=== PATIENT | male | born 1960 | race Caucasian/White ===

== ENCOUNTER 2017-08-28 07:35 | Emergency (ER) | payer OTHER ==
[2017-08-28 07:44] VITALS: BP 158/75; PULSE 81; RESP 18; TEMP 97.3
--- NOTE | 2017-08-28 08:21 | ED ---
General Adult HPI - General Chief complaint: Recheck/Abnormal Lab/Rx Stated complaint: MED REFILL, MED WITHDRAWAL Time Seen by Provider: 08/28/17 08:07 Source: patient, RN notes reviewed Mode of arrival: wheelchair Limitations: no limitations - History of Present Illness Initial comments: 56-year-old male presents to the emergency department with a chief complaint of medication refill. The patient takes Lyrica, morphine, narcotics daily. He is prescription ran out and he talked to his doctor but they did not send him to the pharmacy. He states he's having some increased pain and some nausea and difficulty sleeping. He states he is here to hopefully get a few pills to get him through the weekend. He called the doctor on-call and they stated they could not rate these prescriptions form and referred him to the emergency department. Patient has no other complaints. Patient denies any recent fever, chills, shortness of breath, chest pain, back pain, abdominal pain, nausea vomiting, numbness or tingling, dysuria or hematuria, constipation or diarrhea, headaches or visual changes, or any other current symptoms. - Related Data Previous Rx's Medication Instructions Recorded HYDROcodone/APAP 7.5-325MG [[place] 1 tab PO Q4H PRN #10 tab 08/28/17 7.5-325] Pregabalin [Lyrica] 200 mg PO BID #6 cap 08/28/17 Allergies Allergy/AdvReac Type Severity Reaction Status Date / Time phenytoin [From Dilantin] Allergy Unknown Verified 08/28/17 07:39 Review of Systems ROS Statement: Those systems with pertinent positive or pertinent negative responses have been documented in the HPI. ROS Other: All systems not noted in ROS Statement are negative. Past Medical History Past Medical History: COPD, Diabetes Mellitus, Hyperlipidemia, Hypertension Additional Past Medical History / Comment(s): back problems History of Any Multi-Drug Resistant Organisms: None Reported Additional Past Surgical History / Comment(s): plate in skull, neck surgery Past Psychological History: No Psychological Hx Reported Smoking Status: Current every day smoker Past Alcohol Use History: None Reported Past Drug Use History: Marijuana General Exam Limitations: no limitations General appearance: alert, in no apparent distress Neck exam: Present: normal inspection. Absent: tenderness, meningismus, lymphadenopathy Respiratory exam: Present: normal lung sounds bilaterally. Absent: respiratory distress, wheezes, rales, rhonchi, stridor Cardiovascular Exam: Present: regular rate, normal rhythm, normal heart sounds. Absent: systolic murmur, diastolic murmur, rubs, gallop, clicks Neurological exam: Present: alert, oriented X3 Psychiatric exam: Present: normal affect, normal mood Skin exam: Present: warm, dry, intact, normal color. Absent: rash Course Vital Signs 08/28/17 07:39 Temperature 97.3 F L Pulse Rate 81 Respiratory 18 Rate Blood Pressure 158/75 O2 Sat by Pulse 95 Oximetry Medical Decision Making - Medical Decision Making 56-year-old male presents for medication refill. At this time a maps report was run on the patient and his story is consistent. We will give him some of his Narco's as well as his Lyrica. We did discuss follow-up with his doctor. We did discuss he needs to double check that he can fill this in order not to violate his pain contract. We did discuss return parameters all his questions. They stated they understood and management this plan. They will be discharged home. Disposition Clinical Impression: Encounter for medication refill Disposition: HOME SELF-CARE Condition: Stable Instructions: Medicine Refill (ED) Additional Instructions: Please use medication as discussed. Please follow up with family doctor if symptoms have not improved over the next two days. Please return to the emergency room if your symptoms increase or worsen or for any other concerns. Prescriptions: HYDROcodone/APAP 7.5-325MG [[place] 7.5-325] 1 tab PO Q4H PRN #10 tab PRN Reason: Pain Pregabalin [Lyrica] 200 mg PO BID #6 cap Referrals: Sridhar Chan MD [Primary Care Provider] - 1-2 days Time of Disposition: 08:20
== END 2017-08-28 08:25 | disposition home or self-care (01) ==
LOC: EC 07:35
DX: Z76.0 Encounter for issue of repeat prescription (principal); R11.0 Nausea; R52 Pain, unspecified; Z88.8 Allergy status to other drugs, medicaments and biological substances; Z79.891 Long term (current) use of opiate analgesic; Z79.899 Other long term (current) drug therapy; F17.200 Nicotine dependence, unspecified, uncomplicated
CPT/HCPCS: 99281

== ENCOUNTER → 2018-12-16 | Outpatient (CLI) | payer OTHER ==
--- NOTE | 2018-12-16 10:00 | US ---
EXAMINATION TYPE: US abdomen complete DATE OF EXAM: 12/16/2018 COMPARISON: NONE CLINICAL HISTORY: Z68.41 BMI. Morbidly obese. EXAM MEASUREMENTS: Liver Length: 21.3 cm Gallbladder Wall: 0.2 cm CBD: 0.5 cm Spleen: 10.5 cm Right Kidney: 13.3 x 5.8 x 6.0 cm Left Kidney: 12.4 x 5.7 x 6.2 cm Pancreas: Obscured by bowel gas Liver: Heterogeneous, enlarged Gallbladder: wnl Evidence for sonographic Farrell's sign: No CBD: wnl as visualized Spleen: wnl Right Kidney: No hydronephrosis or masses seen Left Kidney: No hydronephrosis. Complex cystic area mid pole 2.7 x 2.6 x 2.4 cm Upper IVC: wnl Abd Aorta: Atherosclerotic changes visualized. No sonographic evidence for AAA. There is no ascites. Kidneys show normal cortical medullary differentiation. The cystic focus within the left kidney shows a possible septation, is not simple cystic, however it is showing increased thr ough transmission and imperceptible wall. The liver is heterogeneous. The intrahepatic portion of the IVC and proximal abdominal aorta are wit hin normal limits. There is no evidence of cholelithiasis. Common bile duct is unremarkable. The v isualized portions of the pancreas are homogenous. The spleen is unremarkable. IMPRESSION: There are some limitations the exam. Follow-up left renal cyst, lesion likely represents Bosniak 2 or 2F
== END | disposition home or self-care (01) ==
LOC: RADUSWWP 08:07
PROVIDERS: ATTEND Family Medicine
DX: N28.1 Cyst of kidney, acquired (principal); R79.89 Other specified abnormal findings of blood chemistry; E66.9 Obesity, unspecified; Z71.82 Exercise counseling; Z68.41 Body mass index [BMI] 40.0-44.9, adult
CPT/HCPCS: 76700

== ENCOUNTER → 2019-02-09 | Outpatient (CLI) | payer OTHER ==
--- NOTE | 2019-02-09 15:45 | US ---
EXAMINATION TYPE: US kidneys/renal and bladder DATE OF EXAM: 02/09/2019 COMPARISON: US abdomen 2019 CLINICAL HISTORY: N28.1 Cyst of kidney, acquired. Left renal cyst EXAM MEASUREMENTS: Right Kidney: 12.5 x 6.2 x 5.9 cm Left Kidney: 12.4 x 6.7 x 6.1 cm Difficult and limited study due to patient body habitus Right Kidney: 0.5cm echogenic focus inferior pole Left Kidney: 2.4 x 2.4 x 2.4cm complex cystic area mid pole Bladder: wnl Bilateral Jets seen: no On current study cannot exclude new 5 mm nonobstructing lower pole right renal calculus as there is n onshadowing hyperechoic focus. Bladder falls within normal limits. Left kidneys show stable 2.4 cm ce ntral cyst or cystic lesion, Bosniak type I or II lesion as there is no suspicious nodularity or thic kened septa identified. IMPRESSION: Stability of left renal lesion favoring Bosniak type II lesion.
[2019-02-09 16:34] LABS: INR 1.8 (<1.2); Prothrombin Time 17.7 sec (9.0-12.0)
== END | disposition home or self-care (01) ==
LOC: RADUSWWP 15:00
PROVIDERS: ATTEND Family Medicine
DX: N28.89 Other specified disorders of kidney and ureter (principal)
CPT/HCPCS: 36415; 76770; 85610

== ENCOUNTER 2019-04-05 19:02 | Emergency (ER) | payer OTHER ==
[2019-04-05 19:08] VITALS: BP 163/75; PULSE 71; RESP 20; TEMP 97.6
--- NOTE | 2019-04-05 19:57 | ED ---
General Adult HPI - General Chief complaint: Wound/Laceration Stated complaint: toe lac Time Seen by Provider: 04/05/19 19:29 Source: patient, RN notes reviewed Mode of arrival: ambulatory Limitations: no limitations - History of Present Illness Initial comments: 58-year-old male presents to the emergency department for a chief complaint of laceration to the right fourth toe. Patient states this happened about 10 days ago. Patient states he is diabetic with a history of neuropathy so he did not feel in this happened. Patient states it does not seem to be healing. States he is concerned that it might need to be stitched. Denies any fevers or chills. Patient is not sure when he had his last tetanus shot.Patient has no other complaints at this time including shortness of breath, chest pain, abdominal pain, nausea or vomiting, headache, or visual changes. - Related Data Previous Rx's Medication Instructions Recorded HYDROcodone/APAP 7.5-325MG [[place] 1 tab PO Q4H PRN #10 tab 08/28/17 7.5-325] Pregabalin [Lyrica] 200 mg PO BID #6 cap 08/28/17 Cephalexin [Keflex] 500 mg PO TID 10 Days #30 cap 04/05/19 Allergies Allergy/AdvReac Type Severity Reaction Status Date / Time phenytoin [From Dilantin] Allergy Unknown Verified 04/05/19 19:08 Review of Systems ROS Statement: Those systems with pertinent positive or pertinent negative responses have been documented in the HPI. ROS Other: All systems not noted in ROS Statement are negative. Past Medical History Past Medical History: COPD, Diabetes Mellitus, Hyperlipidemia, Hypertension Additional Past Medical History / Comment(s): back problems, TB History of Any Multi-Drug Resistant Organisms: None Reported Additional Past Surgical History / Comment(s): plate in skull, neck surgery Past Psychological History: No Psychological Hx Reported Smoking Status: Current every day smoker Past Alcohol Use History: None Reported Past Drug Use History: Marijuana General Exam Limitations: no limitations General appearance: alert, in no apparent distress Head exam: Present: atraumatic, normocephalic, normal inspection Eye exam: Present: normal appearance, PERRL, EOMI. Absent: scleral icterus, conjunctival injection, periorbital swelling ENT exam: Present: normal exam, mucous membranes moist Neck exam: Present: normal inspection, full ROM. Absent: tenderness, meningismus, lymphadenopathy Respiratory exam: Present: normal lung sounds bilaterally. Absent: respiratory distress, wheezes, rales, rhonchi, stridor Cardiovascular Exam: Present: regular rate, normal rhythm, normal heart sounds. Absent: systolic murmur, diastolic murmur, rubs, gallop, clicks Extremities exam: Present: normal capillary refill (Capillary refill less than 2 seconds in all digits of the right foot including the fourth digit), other (Patient has a shallow laceration of the palmar DIP joint of the right toe. No erythema or evidence of infection) Course Vital Signs 04/05/19 19:04 Temperature 97.6 F Pulse Rate 71 Respiratory 20 Rate Blood Pressure 163/75 O2 Sat by Pulse 96 Oximetry Medical Decision Making - Medical Decision Making On exam patient has a shallow laceration of the DIP joint palmar aspect of the right fourth toe. Patient is able to ambulate on this. Neurovascular status intact. This does appear to be in the healing phase although I do suspect there will be difficulty in healing as this is the patient's fourth toe and he is diabetic. Therefore I did refer him to wound care as well as his own physician. Patient will be given Keflex to prevent infection. He will return if he has any worsening symptoms. Disposition Clinical Impression: Laceration Disposition: HOME SELF-CARE Condition: Good Instructions (If sedation given, give patient instructions): Laceration (ED) Additional Instructions: Please keep the area clean and dry. You may apply antibiotic ointment. Take antibiotic as directed. This was prescribed to [facility] pharmacy on . Follow-up with your primary care provider. Follow up at wound clinic as well by calling [phone] and asking for the wound care clinic. Return to the emergency department if you have any worsening symptoms. Prescriptions: Cephalexin [Keflex] 500 mg PO TID 10 Days #30 cap Is patient prescribed a controlled substance at d/c from ED?: No Referrals: Sridhar Chan MD [Primary Care Provider] - 1-2 days Time of Disposition: 20:05
== END 2019-04-05 20:18 | disposition home or self-care (01) ==
LOC: EC 19:02
DX: S91.114A Laceration without foreign body of right lesser toe(s) without damage to nail, initial encounter (principal); E11.40 Type 2 diabetes mellitus with diabetic neuropathy, unspecified; F17.200 Nicotine dependence, unspecified, uncomplicated; Z88.8 Allergy status to other drugs, medicaments and biological substances; X58.XXXA Exposure to other specified factors, initial encounter; Y92.009 Unspecified place in unspecified non-institutional (private) residence as the place of occurrence of the external cause
CPT/HCPCS: 99282

== ENCOUNTER → 2019-05-29 | Outpatient (CLI) | payer OTHER ==
[2019-05-29 16:36] LABS: Basophils # (A) 0.1 k/uL (0-0.2); Basophils % (A) 1 %; Eosinophils # (A) 0.5 k/uL (0-0.7); Eosinophils % (A) 5 %; HGB 16.9 gm/dL (13.0-17.5); Hypochromasia Slight; INR 1.8 (<1.2); Lymphocytes # (A) 2.1 k/uL (1.0-4.8); Lymphocytes % (A) 20 %; MCH 26.9 pg (25.0-35.0); MCHC 30.8 g/dL (31.0-37.0); MCV 87.3 fL (80.0-100.0); Mean Platelet Volume 9.3; Monocytes # (A) 0.6 k/uL (0-1.0); Monocytes % (A) 6 %; Neutrophils % (A) 67 %; Platelet Count 230 k/uL (150-450); Prothrombin Time 18.2 sec (9.0-12.0); RBC 6.29 m/uL (4.30-5.90); WBC 10.4 k/uL (3.8-10.6)
[2019-05-30 00:32] LABS: African American GFR (CKD) 112.5 (60.0-200.0); Albumin 4.1 g/dL (3.80-4.90); Albumin/Globulin Ratio 1.78 (1.60-3.17); Anion Gap 9.5 mmol/L (4.00-12.00); BUN/Creat Ratio 11.25 Ratio (12.00-20.00); Calcium 9.4 mg/dL (8.7-10.3); Carbon Dioxide 29.5 mmol/L (21.6-31.8); Chol/HDL Ratio 4.2; Globulin 2.3 g/dL (1.6-3.3); Non-African American GFR(CKD) 97.1 (60.0-200.0); Potassium 4.8 mmol/L (3.5-5.5); Total Bilirubin 0.4 mg/dL (0.2-1.2); Total Protein 6.4 g/dL (6.2-8.2)
[2019-05-30 01:16] LABS: Hemoglobin A1C 10.7 % (4.0-6.0)
== END | disposition home or self-care (01) ==
LOC: LABWHC1 15:25
PROVIDERS: ATTEND Family Medicine
DX: E11.42 Type 2 diabetes mellitus with diabetic polyneuropathy (principal); N40.0 Benign prostatic hyperplasia without lower urinary tract symptoms; I10 Essential (primary) hypertension; I48.91 Unspecified atrial fibrillation
CPT/HCPCS: 36415; 80053; 80061; 83036; 84153; 85025; 85610

== ENCOUNTER 2022-01-31 00:58 | Inpatient (IN) | payer OTHER ==
[2022-01-31] MEDS ORDERED: KETOROLAC 15 MG/ML 1 ML VIAL IVP STA (01:33)
[2022-01-31] MEDS ORDERED: ACETAMINOPHEN TAB 500 MG TAB PO STA (01:35)
[2022-01-31] MEDS ORDERED: MORPHINE SULFATE 2 MG/ML SYRINGE IM STA (01:35)
[2022-01-31] MEDS ORDERED: HYDROmorphone 0.5 MG/0.5 ML SYRINGE IVP STA (02:22)
--- NOTE | 2022-01-31 02:35 | ED ---
Fall HPI - General Source: patient, family, EMS, RN notes reviewed Mode of arrival: EMS - History of Present Illness MD Complaint: fall Fall From: out of bed Fall Witnessed: yes, by family Place Fall Occurred: home Loss of Consciousness: none Location: buttocks <Desiree Leo - Last Filed: 01/31/22 04:49> <Garry Aldana - Last Filed: 01/31/22 06:49> - General Chief Complaint: Fall Stated Complaint: Fall, Back and Ribs injury Time Seen by Provider: 01/31/22 01:12 - History of Present Illness Initial Comments: This is a 61-year-old male who presents to the emergency department for a fall. Patient states that he got up from bed to try to go to the restroom, however he grabbed his walker incorrectly, and ended up falling. States that he fell on his bottom. Denies hitting his head or any loss of consciousness. He is on Coumadin for A. fib. While he only hit his bottom, states that he feels like he may have some pain in his ribs and abdomen. He is noted to be in atrial fibrillation with RVR in the examination room. Patient did not take his nighttime dose of metoprolol. Denies any fevers, chills, sore throat, cough, dyspnea, chest pain, palpit ations, nausea, vomiting, diarrhea, or headaches. (Desiree Leo) - Related Data Previous Rx's Medication Instructions Recorded HYDROcodone/APAP 7.5-325MG [[place] 1 tab PO Q4H PRN #10 tab 08/28/17 7.5-325] Pregabalin [Lyrica] 200 mg PO BID #6 cap 08/28/17 Cephalexin [Keflex] 500 mg PO TID 10 Days #30 cap 04/05/19 Allergies Allergy/AdvReac Type Severity Reaction Status Date / Time phenytoin [From Dilantin] Allergy Unknown Verified 04/05/19 19:08 Review of Systems ROS Other: All systems not noted in ROS Statement are negative. <Desiree Leo - Last Filed: 01/31/22 04:49> ROS Other: All systems not noted in ROS Statement are negative. <Garry Aldana - Last Filed: 01/31/22 06:49> ROS Statement: Those systems with pertinent positive or pertinent negative responses have been documented in the HPI. Past Medical History Past Medical History: COPD, Diabetes Mellitus, Hyperlipidemia, Hypertension Additional Past Medical History / Comment(s): back problems, TB History of Any Multi-Drug Resistant Organisms: None Reported Additional Past Surgical History / Comment(s): plate in skull, neck surgery Past Psychological History: No Psychological Hx Reported Smoking Status: Current every day smoker, Heavy tobacco smoker Past Alcohol Use History: None Reported Past Drug Use History: Marijuana <Desiree Leo - Last Filed: 01/31/22 04:49> General Exam Limitations: no limitations General appearance: alert, in no apparent distress Head exam: Present: atraumatic, normocephalic, normal inspection Eye exam: Present: normal appearance, PERRL, EOMI. Absent: scleral icterus, conjunctival injection, periorbital swelling Respiratory exam: Present: normal lung sounds bilaterally. Absent: respiratory distress, wheezes, rales, rhonchi, stridor Cardiovascular Exam: Present: tachycardia, irregular rhythm GI/Abdominal exam: Present: soft, normal bowel sounds. Absent: distended, tenderness, guarding, rebound, rigid Neurological exam: Present: alert, oriented X3, CN II-XII intact Psychiatric exam: Present: normal affect, normal mood Skin exam: Present: warm, dry, other (Open wound over the right medial malleolus with purulent discharge. Large area of necrotic tissue over the lateral malleolus with overlying blisters and weeping.) <Desiree Leo - Last Filed: 01/31/22 04:49> Course Vital Signs 01/31/22 01/31/22 01:03 04:40 Temperature 98.6 F Pulse Rate 129 H 131 H Respiratory 20 20 Rate Blood Pressure 172/97 124/85 O2 Sat by Pulse 93 L 93 L Oximetry Medical Decision Making - Lab Data Result diagrams: 01/31/22 04:15 - Radiology Data Radiology results: report reviewed, image reviewed <Desiree Leo - Last Filed: 01/31/22 04:49> - Lab Data Result diagrams: 01/31/22 04:15 01/31/22 04:15 - EKG Data -: EKG Interpreted by Ar <Garry Aldana - Last Filed: 01/31/22 06:49> - Medical Decision Making This is a 61-year-old male who presents to the emergency department for a fall. Patient noted to be atrial fibrillation with RVR. His fiance did bring his medication with him, including his metoprolol. I instructed the patient to take his evening dose of metoprolol. X-rays of the lumbar spine, sacrum/coccyx, chest and KUB were obtained, all of which revealed no acute irregularities. Patient took his evening dose of metoprolol, 50 mg, however he continued to be in atrial fibrillation with RVR. Repeat dose of 50mg administered. CBC, CMP, troponin, and magnesium ordered to look for possible causes of the A. fib with RVR, such as electrolyte irregularities. When I went to reevaluate the patient, his fiance asked if I would look at a blister on his right foot. Upon examination, there is necrotic tissue and multiple open wounds with purulent discharge. Patient states that he did not notice the area of necrotic tissue until yesterday. Given that the patient continues to be in A. fib with RVR and has cellulitis with necrotic tissue, will plan to admit the patient. Both wound and blood cultures were obtained. X-ray of the foot was also ordered. Patient started on IV vancomycin and Cefepime. Lab work reveals leukocytosis. Case signed out to ED attending pending admission. (Desiree Leo) - Lab Data Lab Results 01/31/22 01/31/22 Range/Units 04:15 04:15 WBC 25.8 H (3.8-10.6) k/uL RBC 5.16 (4.30-5.90) m/uL Hgb 14.1 (13.0-17.5) gm/dL Hct 45.7 (39.0-53.0) % MCV 88.5 (80.0-100.0) fL MCH 27.2 (25.0-35.0) pg MCHC 30.8 L (31.0-37.0) g/dL RDW 15.3 (11.5-15.5) % Plt Count 217 (150-450) k/uL MPV 9.2 Neutrophils % 93 % Lymphocytes % 1 % Monocytes % 4 % Eosinophils % 1 % Basophils % 1 % Neutrophils # 24.1 H (1.3-7.7) k/uL Lymphocytes # 0.3 L (1.0-4.8) k/uL Monocytes # 0.9 (0-1.0) k/uL Eosinophils # 0.2 (0-0.7) k/uL Basophils # 0.1 (0-0.2) k/uL Hypochromasia Slight Sodium 131 L (137-145) mmol/L Potassium 3.9 (3.5-5.1) mmol/L Chloride 91 L (98-107) mmol/L Carbon Dioxide 25 (22-30) mmol/L Anion Gap 15 mmol/L BUN 24 H (9-20) mg/dL Creatinine 1.82 H (0.66-1.25) mg/dL Est GFR (CKD-EPI)AfAm 45 (>60 ml/min/1.73 sqM) Est GFR (CKD-EPI)NonAf 39 (>60 ml/min/1.73 sqM) Glucose 217 H (74-99) mg/dL Calcium 8.5 (8.4-10.2) mg/dL Magnesium 1.8 (1.6-2.3) mg/dL Total Bilirubin 1.4 H (0.2-1.3) mg/dL AST 39 (17-59) U/L ALT 17 (4-49) U/L Alkaline Phosphatase 186 H (38-126) U/L Total Protein 6.1 L (6.3-8.2) g/dL Albumin 2.9 L (3.5-5.0) g/dL - EKG Data EKG Comments: 12-lead Electrocardiogram Interpretation Note EKG was reviewed and interpreted by myself. 12-lead ECG performed at 0104 is interpreted by me as revealing atrial flutter with RVR at a rate of 132 beats per minute. [place] is normal. QRS duration 75 ms, QTc is 343 ms.. There were no ST or T wave abnormalities to suggest myocardial ischemia or injury. R wave progression across the precordium was satisfactory. By my interpretation this EKG is non-diagnostic for acute ischemia. (Garry Aldana) Disposition <Desiree Leo - Last Filed: 01/31/22 04:49> <Garry Aldana - Last Filed: 01/31/22 06:49> Clinical Impression: Cellulitis, Atrial fibrillation with RVR Disposition: ADMITTED IP TO THIS HOSP
--- NOTE | 2022-01-31 02:41 | XR ---
EXAMINATION TYPE: XR chest 2V DATE OF EXAM: 01/31/2022 COMPARISON: NONE HISTORY: Pain. Fall. TECHNIQUE: 2 views FINDINGS: Heart and mediastinum are normal. Lungs are clear. Diaphragm is normal. Bony thorax is inta ct. There are chest leads. IMPRESSION: Normal chest.
--- NOTE | 2022-01-31 02:43 | XR ---
EXAMINATION TYPE: XR KUB DATE OF EXAM: 01/31/2022 COMPARISON: NONE HISTORY: Pain TECHNIQUE: 3 views supine FINDINGS: There is no sign of intestinal obstruction or pneumoperitoneum. Fecal pattern is normal. No evidence of a mass. There are phleboliths in the pelvis. Lung bases appear clear. There is a 5 mm ca lcification over the right upper quadrant that could be renal calcification. IMPRESSION: Possible right-sided renal calculus. Nonacute abdomen.
--- NOTE | 2022-01-31 02:51 | XR ---
EXAMINATION TYPE: XR sacrum coccyx DATE OF EXAM: 01/31/2022 COMPARISON: NONE HISTORY: Pain TECHNIQUE: 3 views FINDINGS: The posterior sacrum and coccyx are not included on the lateral view. The sacroiliac joints appear intact. No evidence of sacral fracture. Segments appear to have normal alignment. IMPRESSION: Negative limited sacrum and coccyx exam. Tip of the coccyx in the posterior sacrum not en tirely included.
--- NOTE | 2022-01-31 02:52 | XR ---
EXAMINATION TYPE: XR lumbar spine 2 or 3V DATE OF EXAM: 01/31/2022 COMPARISON: NONE HISTORY: TECHNIQUE: 2 views FINDINGS: The lumbar vertebra have normal alignment. There is degenerative disc space narrowing from L2 to S1 with mild spurring. No compression fracture. Sacroiliac joints are intact. IMPRESSION: Multilevel spondylotic changes. No fracture seen.
[2022-01-31] MEDS ORDERED: METOPROLOL TARTRATE 5 MG/5 ML VIAL IVP ONE (03:56)
[2022-01-31] MEDS ORDERED: METOPROLOL TARTRATE 50 MG TAB PO STA (04:29)
[2022-01-31 04:36] LABS: Basophils # (A) 0.1 k/uL (0-0.2); Basophils % (A) 1 %; Eosinophils # (A) 0.2 k/uL (0-0.7); Eosinophils % (A) 1 %; HCT 45.7 % (39.0-53.0); HGB 14.1 gm/dL (13.0-17.5); Hypochromasia Slight; Lymphocytes # (A) 0.3 k/uL (1.0-4.8); Lymphocytes % (A) 1 %; MCH 27.2 pg (25.0-35.0); MCHC 30.8 g/dL (31.0-37.0); MCV 88.5 fL (80.0-100.0); Mean Platelet Volume 9.2; Monocytes # (A) 0.9 k/uL (0-1.0); Monocytes % (A) 4 %; Neutrophils # (A) 24.1 k/uL (1.3-7.7); Neutrophils % (A) 93 %; Platelet Count 217 k/uL (150-450); RBC 5.16 m/uL (4.30-5.90); RDW 15.3 % (11.5-15.5); WBC 25.8 k/uL (3.8-10.6)
[2022-01-31] MEDS ORDERED: CEFEPIME 2 GM in SODIUM CHLORIDE 0.9% 50 ML IVPB SCH (04:45)
[2022-01-31] MEDS ORDERED: ACETAMINOPHEN TAB 325 MG TAB PO PRN (04:46)
[2022-01-31] MEDS ORDERED: NALOXONE 0.4 MG/ML 1 ML VIAL IV PRN ×2 (04:46→05:07)
--- NOTE | 2022-01-31 04:50 | XR ---
EXAMINATION TYPE: XR foot limited RT DATE OF EXAM: 01/31/2022 COMPARISON: NONE HISTORY: Infection TECHNIQUE: 2 views FINDINGS: The metatarsals are intact as seen no fracture nor dislocation. No focal bone destruction. There is vascular calcification. There is some mild soft tissue calcification at the medial aspect of the first tarsometatarsal joint and consistent with degenerative phenomenon. IMPRESSION: No acute abnormality of the right foot. No focal bone destruction.
[2022-01-31] MEDS ORDERED: VANCOMYCIN 2,000 MG in SODIUM CHLORIDE 0.9% 250 ML IVPB ONE (05:00)
[2022-01-31 05:11] LABS: Albumin 2.9 g/dL (3.5-5.0); Calcium 8.5 mg/dL (8.4-10.2); Magnesium 1.8 mg/dL (1.6-2.3); Potassium 3.9 mmol/L (3.5-5.1); Total Bilirubin 1.4 mg/dL (0.2-1.3); Total Protein 6.1 g/dL (6.3-8.2)
[2022-01-31] MEDS ORDERED: VANCOMYCIN IV PER PHARMACY 1 EACH MISC MISCELLANE PRN (05:22)
[2022-01-31] MEDS ORDERED: SODIUM CHLORIDE 0.9% 1,000 ML IV STA ×2 (05:23)
[2022-01-31] MEDS ORDERED: HYDROmorphone 1 MG/ML 1 ML SYRINGE IVP STA (08:04)
[2022-01-31] MEDS: CEFEPIME 2 GM in SODIUM CHLORIDE 0.9% 100 ML IVPB SCH ×2 (08:05→17:43)
[2022-01-31] MEDS: METOPROLOL TARTRATE 50 MG TAB PO SCH ×3 (08:06→21:25)
[2022-01-31 08:07] LABS: Partial Thromboplastin Time 66.7 sec (22.0-30.0)
[2022-01-31 08:12] LABS: Prothrombin Time >130.0 sec (9.0-12.0)
[2022-01-31 08:15] LABS: INR >10.0 (<1.2)
[2022-01-31] MEDS ORDERED: PHYTONADIONE 10 MG in SODIUM CHLORIDE 0.9% 50 ML IVPB STA (08:21)
--- NOTE | 2022-01-31 08:25 | ED ---
Medical Decision Making - Medical Decision Making Coag testing was pending at the time of admission. This returned with an INR greater than 10 on review of the chart. We will hold the patient's Coumadin at this time. Patient was given a dose of vitamin K. No source of bleeding. I suspect this is likely due to his medication intermittent compliance, similar to him taking his metoprolol once a day when it is instructed be taken 3 times a day. - Lab Data Result diagrams: 01/31/22 04:15 01/31/22 04:15 Lab Results 01/31/22 01/31/22 01/31/22 Range/Units 04:15 04:15 04:15 WBC 25.8 H (3.8-10.6) k/uL RBC 5.16 (4.30-5.90) m/uL Hgb 14.1 (13.0-17.5) gm/dL Hct 45.7 (39.0-53.0) % MCV 88.5 (80.0-100.0) fL MCH 27.2 (25.0-35.0) pg MCHC 30.8 L (31.0-37.0) g/dL RDW 15.3 (11.5-15.5) % Plt Count 217 (150-450) k/uL MPV 9.2 Neutrophils % 93 % Lymphocytes % 1 % Monocytes % 4 % Eosinophils % 1 % Basophils % 1 % Neutrophils # 24.1 H (1.3-7.7) k/uL Lymphocytes # 0.3 L (1.0-4.8) k/uL Monocytes # 0.9 (0-1.0) k/uL Eosinophils # 0.2 (0-0.7) k/uL Basophils # 0.1 (0-0.2) k/uL Hypochromasia Slight Sodium 131 L (137-145) mmol/L Potassium 3.9 (3.5-5.1) mmol/L Chloride 91 L (98-107) mmol/L Carbon Dioxide 25 (22-30) mmol/L Anion Gap 15 mmol/L BUN 24 H (9-20) mg/dL Creatinine 1.82 H (0.66-1.25) mg/dL Est GFR (CKD-EPI)AfAm 45 (>60 ml/min/1.73 sqM) Est GFR (CKD-EPI)NonAf 39 (>60 ml/min/1.73 sqM) Glucose 217 H (74-99) mg/dL Calcium 8.5 (8.4-10.2) mg/dL Magnesium 1.8 (1.6-2.3) mg/dL Total Bilirubin 1.4 H (0.2-1.3) mg/dL AST 39 (17-59) U/L ALT 17 (4-49) U/L Alkaline Phosphatase 186 H (38-126) U/L Troponin I 0.013 (0.000-0.034) ng/mL Total Protein 6.1 L (6.3-8.2) g/dL Albumin 2.9 L (3.5-5.0) g/dL Disposition Clinical Impression: Cellulitis, Atrial fibrillation with RVR Disposition: ADMITTED IP TO THIS HOSP
[2022-01-31] MEDS ORDERED: DEXAMETHASONE SOD PHOSPHATE 10 MG/ML 1 ML VIAL IVP SCH (09:00)
[2022-01-31] MEDS ORDERED: HYDROcodone/APAP 7.5-325MG 1 EACH TAB PO PRN (10:48)
[2022-01-31] MEDS: MORPHINE SULFATE ER 15 MG TABLET PO SCH ×4 (11:15→21:52)
[2022-01-31 11:41] LABS: Glucose,Whole Blood 143 mg/dL (70-110)
[2022-01-31] MEDS: ONDANSETRON 4 MG/2 ML VIAL IVP PRN ×2 (11:44→21:54)
[2022-01-31] MEDS ORDERED: DEXTROSE 50% SYRINGE 50 ML IVP PRN (12:51)
[2022-01-31] MEDS ORDERED: CALCIUM CARBONATE 500 MG CHEWABLE PO PRN (12:54)
[2022-01-31] MEDS ORDERED: MELATONIN 3 MG TABLET PO PRN (12:54)
[2022-01-31] MEDS ORDERED: LACTULOSE 20 GM/30 ML CUP PO ONE (12:56)
[2022-01-31] MEDS: BUDESONIDE 1 MG/2 ML NEBU INHALATION SCH ×2 (12:58→19:18)
[2022-01-31] MEDS: NICOTINE 21MG/24HR PATCH TRANSDERM SCH (14:29)
[2022-01-31] MEDS: guaiFENesin 600 MG TABLET.ER PO SCH ×3 (14:30→21:25)
[2022-01-31] MEDS: TAMSULOSIN 0.4 MG CAP.ER.24H PO SCH (14:30)
[2022-01-31] MEDS: INSULIN ASPART (NovoLOG) 100 UNIT/ML VIAL SQ SCH ×2 (15:00→18:17)
[2022-01-31] MEDS: IPRATROPIUM-ALBUTEROL 3 ML NEB INHALATION SCH ×2 (15:16→19:19)
[2022-01-31 16:52] LABS: Glucose,Whole Blood 189 mg/dL (70-110)
--- NOTE | 2022-01-31 17:11 | P.HPIM ---
History of Present Illness H&P Date: 01/31/22 Chief Complaint: Fall This is a 61-year-old patient who follows with Dr. Sridhar Chan. Chronic stable medical conditions include diabetes, hypertension, hyperlipidemia, chronic low back problems, cigarette smoker. At the baseline uses a walker. Patient slipped in the bathroom falling on his buttock. Was not able to get up. By the EMS report he had fallen 24 hours prior to the picking him up. Patient been complaining of pain in the right rib cage in the lower back. X-ray was negative for fracture. Patient continued to have significant pain especially with deep breathing. Patient also had a congestive cough and wheezing. Some bloody sputum. Denies any fever and chills. Patient also complaining of urinary retention and requesting a Shepard catheter. at the bedside. No fever no chills. Orthopedics consulted for the same. Patient normally has a bowel movement once a week. Patient also has a wound on the right foot lateral part of the ankles for about a week. Ischemic changes. From rubbing against a bedpost. Patient's INR in the ER was greater than 10. Was given vitamin K. 10 mg Review of systems: GEN.: Tired EYES: None HEENT: None NECK: None RESPIRATORY: Wheezing, shortness breath, cough CARDIOVASCULAR: None GASTROINTESTINAL: Constipation GENITOURINARY: Trouble making urine MUSCULOSKELETAL: Back pain pain] LYMPHATICS: None HEMATOLOGICAL: Hemoptysis PSYCHIATRY: Anxious NEUROLOGICAL: [Uses a walker Past medical history to include: COPD, diabetes, hypertension, hyperlipidemia, back problems, TB, atrial fibrillation, on Coumadin Social history: Smokes a pack a day for close to 50 years. Stop doing alcohol some time ago. Lives with his significant other Sandra. Does use a walker. 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 EYES: Pupils equal. Conjunctiva normal. HEENT: External appearance of nose and ears normal, oral cavity grossly normal. NECK: JVD not raised; masses not palpable. HEART: Heart sounds irregular; mild edema. LUNGS: Respiratory rate increased; decreased breath sound, prolonged expiration, coarse crackles. ABDOMEN: Soft, distended, nontender, liver spleen not palpable, no masses palpable. PSYCH: Alert and oriented x3; mood and affect anxiousl. DERMATOLOGICAL: Large wound around the lateral malleolus right foot Gangrene Changes MUSCULOSKELETAL:No Clubbing/cyanosis;muscles-grossly intact, increase in low back pain with movement NEUROLOGICAL: [Cranial nerves grossly intact; no facial asymmetry, having trouble lifting his legs. LYMPHATICS: No lymph nodes palpable in the axilla and neck INVESTIGATIONS, reviewed in the clinical context: WBC 25.8 hemoglobin 14.1 platelets 217 INR greater than 10 sodium 131 potassium 3.9. 24 creatinine 1.8 to EKG tracing personally reviewed by me-atrial flutter. Rate 132 Foot/Lumbar/sacral coccyx: Spondylitic changes. No fracture. Chest x-ray film personally reviewed by me-clinically. Possible hyperinflation Assessment and plan: -Coumadin toxicity. INR greater than 10. Patient is given 10 mg vitamin K in the ER. Is having some hemoptysis. -Possible right lung contusion. Secondary to fall. Patient is having some hemoptysis computed tomography scan of the chest. -Acute COPD exacerbation, with chronic bronchitis component in a current smoker DuoNeb. Nebulized Pulmicort. Mucinex. -Chronic nicotine dependence, cigarette smoker Nicotine patch 21 -Persistent atrial flutter, currently rate uncontrolled Lopressor 50 mg 3 times a day. 2-D echocardiogram. Cardiology consultation. -Possible CK D with possible acute component. Patient's creatinine was 0.8 in April 2019. Renal ultrasound. UA. IV fluids.. -Right chest wall pain. Rule out drip fracture. CT chest. Elvia pad. -Diabetes mellitus type 2, chronically on oral hypoglycemic Hold Glucotrol. Sliding scale insulin. Levemir 14 units daily at bedtime -Diabetic peripheral neuropathy Decreased dose of Lyrica in the setting of renal failure. 100 mg twice a day -Chronic low back pain: MS Contin 15 mg every 12, [place] 7.5 twice a day when necessary -Anxiety depression not otherwise specified Wellbutrin XL 100 mg twice a day -Hyperlipidemia Lipitor 40 mg daily at bedtime -Right ankle lateral, diabetic wound, acute IV cefepime. ID consulted. DC vancomycin because of renal function. Patient has poor distal pulses. Consult vascular. -Acute fall with significant back pain. No fracture on the x-ray. Computed tomography scan. Consult orthopedics. Patient received vitamin K. DuoNeb. Nebulized Pulmicort. Mucinex. Computed tomography scan of the chest/lumbar spine. Resume home medications. Decreased dose of Lyrica. Shepard catheter for urinary retention. Elvia pad. Consultation to ID, vascular, pulmonary. He jerked her son. UA. 2-D echocardiogram. Cardiology consult. Care was discussed with the patient's significant other the bedside. Given the complexity and severity of patient's condition expect the patient to be in the hospital at least for 2 overnights Past Medical History Past Medical History: COPD, Diabetes Mellitus, Hyperlipidemia, Hypertension Additional Past Medical History / Comment(s): back problems, TB History of Any Multi-Drug Resistant Organisms: None Reported Additional Past Surgical History / Comment(s): plate in skull, neck surgery Past Anesthesia/Blood Transfusion Reactions: No Reported Reaction Past Psychological History: No Psychological Hx Reported Smoking Status: Current every day smoker, Heavy tobacco smoker Past Alcohol Use History: None Reported Past Drug Use History: Marijuana Medications and Allergies Home Medications Medication Instructions Recorded Confirmed Type Pregabalin [Lyrica] 200 mg PO BID #6 cap 08/28/17 01/31/22 Rx Albuterol Inhaler [Ventolin Hfa 2 puff INHALATION RT-Q6H PRN 01/31/22 01/31/22 History Inhaler] Albuterol Nebulized [Ventolin 2.5 mg INHALATION RT-Q6H PRN 01/31/22 01/31/22 History Nebulized] Atorvastatin [Lipitor] 40 mg PO HS 01/31/22 01/31/22 History HYDROcodone/APAP 7.5-325MG [[place] 1 tab PO BID PRN 01/31/22 01/31/22 History 7.5-325] Metoprolol Tartrate [Lopressor] 50 mg PO TID 01/31/22 01/31/22 History Morphine Sulfate ER [Ms Contin] 15 mg PO Q12HR 01/31/22 01/31/22 History Tiotropium [place] [Spiriva] 1 puff INHALATION RT-DAILY 01/31/22 01/31/22 History Warfarin [Coumadin] 2.5 mg PO MOFR@209901/31/22 01/31/22 History Warfarin [Coumadin] 5 mg PO SUTUWETHSA@2100 01/31/22 01/31/22 History buPROPion XL [Wellbutrin XL] 150 mg PO BID 01/31/22 01/31/22 History glipiZIDE [Glucotrol] 10 mg PO BID 01/31/22 01/31/22 History Allergies Allergy/AdvReac Type Severity Reaction Status Date / Time phenytoin [From Dilantin] Allergy Unknown Verified 01/31/22 11:46 Physical Exam Vitals: Vital Signs Temp Pulse Resp BP Pulse Ox 01/31/22 08:06 98.8 F 121 H 18 169/86 95 01/31/22 06:00 126 H 22 141/88 01/31/22 04:40 131 H 20 124/85 93 L 01/31/22 01:03 98.6 F 129 H 20 172/97 93 L Intake and Output 01/30/22 01/31/22 01/31/22 22:59 06:59 14:59 Other: Weight 136.078 kg 136.078 kg Results CBC & Chem 7: 01/31/22 04:15 01/31/22 04:15 Labs: Abnormal Lab Results - Last 24 Hours (Table) 01/31/22 01/31/22 01/31/22 Range/Units 04:15 04:15 07:00 WBC 25.8 H (3.8-10.6) k/uL MCHC 30.8 L (31.0-37.0) g/dL Neutrophils # 24.1 H (1.3-7.7) k/uL Lymphocytes # 0.3 L (1.0-4.8) k/uL PT >130.0 H (9.0-12.0) sec INR >10.0 H* (<1.2) APTT 66.7 H (22.0-30.0) sec Sodium 131 L (137-145) mmol/L Chloride 91 L (98-107) mmol/L BUN 24 H (9-20) mg/dL Creatinine 1.82 H (0.66-1.25) mg/dL Glucose 217 H (74-99) mg/dL Total Bilirubin 1.4 H (0.2-1.3) mg/dL Alkaline Phosphatase 186 H (38-126) U/L Total Protein 6.1 L (6.3-8.2) g/dL Albumin 2.9 L (3.5-5.0) g/dL Thrombosis Risk Factor Assmnt - Choose All That Apply Each Risk Factor Represents 2 Points: Age 61-74 years Thrombosis Risk Factor Assessment Total Risk Factor Score: 2 Thrombosis Risk Factor Assessment Level: Low Risk
[2022-01-31] MEDS: HYDROmorphone 0.5 MG/0.5 ML SYRINGE IVP PRN ×2 (17:43→23:29)
[2022-01-31] MEDS: PANTOPRAZOLE 40 MG/10 ML VIAL IVP SCH ×2 (17:43→21:25)
[2022-01-31] MEDS: LACTATED RINGERS 1,000 ML IV SCH (17:50)
[2022-01-31 17:58] LABS: HCT 44.7 % (39.0-53.0); HGB 13.8 gm/dL (13.0-17.5); Hypochromasia Slight; MCH 27.4 pg (25.0-35.0); MCHC 30.9 g/dL (31.0-37.0); MCV 88.8 fL (80.0-100.0); Mean Platelet Volume 8.4; Platelet Count 211 k/uL (150-450); RBC 5.03 m/uL (4.30-5.90); RDW 15.4 % (11.5-15.5)
[2022-01-31] MEDS: SODIUM CHLORIDE 0.9% 1,000 ML IV SCH (18:17)
[2022-01-31 18:54] LABS: Appearance,Urine Cloudy (Clear); Bacteria,Urine Rare /hpf; Bilirubin,Urine Negative (Negative); Blood,Urine Large (Negative); Budding Yeast,Urine Few /hpf; Color,Urine Yellow; Glucose,Urine (UA) Trace (Negative); Ketones,Urine Trace (Negative); Leukocyte Esterase,Urine Moderate (Negative); Mucus,Urine Rare /hpf; Nitrite,Urine Negative (Negative); PH, Urine 5.5 (5.0-8.0); Protein,Urine 1+ (Negative); RBC,Urine >182 /hpf (0-5); Specific Gravity,Urine 1.014 (1.001-1.035); Squamous Epithelial Cell,Urine 1 /hpf (0-4); WBC,Urine 28 /hpf (0-5)
--- NOTE | 2022-01-31 18:54 | US ---
EXAMINATION TYPE: US kidneys/renal and bladder DATE OF EXAM: 01/31/2022 COMPARISON: US renal 2019 CLINICAL HISTORY: Chronic kidney disease. Exam done portable EXAM MEASUREMENTS: Right Kidney: 13.4 x 6.1 x 5.7 cm Left Kidney: 12.9 x 6.7 x 6.4 cm Difficult and limited study due to patient body habitus Right Kidney: Limited visualization secondary to technical difficulties. Visualized portions demonstr ate normal cortical medullary thickness without increased echogenicity. No gross evidence for signifi cant hydronephrosis. Left Kidney: Normal appearance of the cortex. No evidence for cortical thinning or increased echogeni city. Anechoic cyst is seen in the interpolar region measuring 2.5 x 2.8 cm, not significantly change d from prior. No hydronephrosis. Bladder: Decompressed by Shepard catheter. IMPRESSION: 1. No evidence for hydronephrosis. 2. Left interpolar cyst, similar to prior examination from 02/09/2019.
[2022-01-31 20:29] LABS: Glucose,Whole Blood 163 mg/dL (70-110)
[2022-01-31] MEDS: PREGABALIN 100 MG CAP PO SCH (21:25)
[2022-01-31] MEDS: INSULIN DETEMIR (LEVEMIR) 100 UNIT/ML SYR SQ SCH (21:25)
[2022-02-01] MEDS: HYDROmorphone 0.5 MG/0.5 ML SYRINGE IVP PRN ×2 (02:28→08:03)
[2022-02-01] MEDS: LACTATED RINGERS 1,000 ML IV SCH ×2 (02:36→14:22)
[2022-02-01] MEDS: DILTIAZEM 125 MG in SODIUM CHLORIDE 0.9% 100 ML IV SCH ×2 (05:17→23:40)
[2022-02-01] MEDS: CEFEPIME 2 GM in SODIUM CHLORIDE 0.9% 100 ML IVPB SCH ×2 (05:21→16:58)
[2022-02-01] MEDS: SODIUM CHLORIDE 0.9% 1,000 ML IV SCH ×2 (05:21→15:49)
[2022-02-01] MEDS: ONDANSETRON 4 MG/2 ML VIAL IVP PRN (05:25)
[2022-02-01] MEDS ORDERED: VANCOMYCIN 2,000 MG in SODIUM CHLORIDE 0.9% 500 ML 500 ML IVPB SCH (06:00)
[2022-02-01 06:47] LABS: Glucose,Whole Blood 135 mg/dL (70-110)
[2022-02-01] MEDS: INSULIN ASPART (NovoLOG) 100 UNIT/ML VIAL SQ SCH ×3 (06:50→17:41)
[2022-02-01] MEDS: IPRATROPIUM-ALBUTEROL 3 ML NEB INHALATION SCH ×4 (07:40→19:07)
[2022-02-01] MEDS: BUDESONIDE 1 MG/2 ML NEBU INHALATION SCH ×2 (07:40→19:07)
--- NOTE | 2022-02-01 07:40 | P.GSCN ---
History of Present Illness Consult date: 02/01/22 Reason for Consult: Nonhealing wound lateral aspect right foot. History of present illness: Patient is a soon to be 61-year-old male who presents with multiple medical issues including A. fib with rapid ventricular response. On his admission he was noted to be suffering from a wound on the lateral aspect of his right foot. Patient indicates this wound has been there approximately 3 days. He admits to spending a significant amount time in bed and while in bed it appears that he externally rotates his foot thus putting pressure on the lateral aspect of the leg/foot. He has a history of diabetes as well as tobacco abuse. He denied any previous similar symptoms. There is no history of chills or fevers. Past Medical History Past Medical History: COPD, Diabetes Mellitus, Hyperlipidemia, Hypertension Additional Past Medical History / Comment(s): back problems, TB History of Any Multi-Drug Resistant Organisms: None Reported Additional Past Surgical History / Comment(s): plate in skull, neck surgery Past Anesthesia/Blood Transfusion Reactions: No Reported Reaction Past Psychological History: No Psychological Hx Reported Smoking Status: Current every day smoker, Heavy tobacco smoker Past Alcohol Use History: None Reported Past Drug Use History: Marijuana Medications and Allergies Home Medications Medication Instructions Recorded Confirmed Type Pregabalin [Lyrica] 200 mg PO BID #6 cap 08/28/17 01/31/22 Rx Albuterol Inhaler [Ventolin Hfa 2 puff INHALATION RT-Q6H PRN 01/31/22 01/31/22 History Inhaler] Albuterol Nebulized [Ventolin 2.5 mg INHALATION RT-Q6H PRN 01/31/22 01/31/22 History Nebulized] Atorvastatin [Lipitor] 40 mg PO HS 01/31/22 01/31/22 History HYDROcodone/APAP 7.5-325MG [[place] 1 tab PO BID PRN 01/31/22 01/31/22 History 7.5-325] Metoprolol Tartrate [Lopressor] 50 mg PO TID 01/31/22 01/31/22 History Morphine Sulfate ER [Ms Contin] 15 mg PO Q12HR 01/31/22 01/31/22 History Tiotropium [place] [Spiriva] 1 puff INHALATION RT-DAILY 01/31/22 01/31/22 History Warfarin [Coumadin] 2.5 mg PO MOFR@2100 01/31/22 09/03/22 History Warfarin [Coumadin] 5 mg PO SUTUWETHSA@209901/31/22 01/31/22 History buPROPion XL [Wellbutrin XL] 150 mg PO BID 01/31/22 01/31/22 History glipiZIDE [Glucotrol] 10 mg PO BID 01/31/22 01/31/22 History Allergies Allergy/AdvReac Type Severity Reaction Status Date / Time phenytoin [From Dilantin] Allergy Unknown Verified 01/31/22 11:46 Surgical - Exam Osteopathic Statement: *. No significant issues noted on an osteopathic structural exam other than those noted in the History and Physical/Consult. Vital Signs Temp Pulse Resp BP Pulse Ox 98.6 F 129 H 20 172/97 93 L 01/31/22 01:03 01/31/22 01:03 01/31/22 01:03 01/31/22 01:03 01/31/22 01:03 Femoral popliteal pulses are noted on the right. The DP and PT pulses are absent. There is a stage II wound on the lateral aspect of the foot measuring 8.5 cm x 4 cm with necrotic eschar. There are no other wounds of the foot noted. Results - Labs 01/31/22 17:43 01/31/22 04:15 Abnormal Lab Results - Last 24 Hours (Table) 01/31/22 01/31/22 01/31/22 Range/Units 04:15 07:00 11:38 WBC (3.8-10.6) k/uL MCHC (31.0-37.0) g/dL PT >130.0 H (9.0-12.0) sec INR >10.0 H* (<1.2) APTT 66.7 H (22.0-30.0) sec POC Glucose (mg/dL) 143 H (70-110) mg/dL Hemoglobin A1c 8.1 H (0.0-6.0) % Urine Protein (Negative) Urine Glucose (UA) (Negative) Urine Ketones (Negative) Urine Blood (Negative) Ur Leukocyte Esterase (Negative) Urine RBC (0-5) /hpf Urine WBC (0-5) /hpf Urine Bacteria (None) /hpf Urine Mucus (None) /hpf Urine Yeast (Budding) (None) /hpf 01/31/22 01/31/22 01/31/22 Range/Units 16:50 17:43 18:45 WBC 21.0 H (3.8-10.6) k/uL MCHC 30.9 L (31.0-37.0) g/dL PT (9.0-12.0) sec INR (<1.2) APTT (22.0-30.0) sec POC Glucose (mg/dL) 189 H (70-110) mg/dL Hemoglobin A1c (0.0-6.0) % Urine Protein 1+ H (Negative) Urine Glucose (UA) Trace H (Negative) Urine Ketones Trace H (Negative) Urine Blood Large H (Negative) Ur Leukocyte Esterase Moderate H (Negative) Urine RBC >182 H (0-5) /hpf Urine WBC 28 H (0-5) /hpf Urine Bacteria Rare H (None) /hpf Urine Mucus Rare H (None) /hpf Urine Yeast (Budding) Few H (None) /hpf 01/31/22 02/01/22 Range/Units 20:27 06:46 WBC (3.8-10.6) k/uL MCHC (31.0-37.0) g/dL PT (9.0-12.0) sec INR (<1.2) APTT (22.0-30.0) sec POC Glucose (mg/dL) 163 H 135 H (70-110) mg/dL Hemoglobin A1c (0.0-6.0) % Urine Protein (Negative) Urine Glucose (UA) (Negative) Urine Ketones (Negative) Urine Blood (Negative) Ur Leukocyte Esterase (Negative) Urine RBC (0-5) /hpf Urine WBC (0-5) /hpf Urine Bacteria (None) /hpf Urine Mucus (None) /hpf Urine Yeast (Budding) (None) /hpf Microbiology - Last 24 Hours (Table) 01/31/22 06:45 Gram Stain - Preliminary Ankle - Right Wound Culture - Preliminary 01/31/22 21:47 Blood Culture Gram Stain - Preliminary Blood 01/31/22 10:05 Blood Culture - Final Blood 01/31/22 18:55 Blood Culture Gram Stain - Preliminary Blood 01/31/22 07:00 Blood Culture - Final Blood 01/31/22 06:45 Anaerobic Culture - Preliminary Ankle - Right Diabetes panel 01/31/22 Range/Units 04:15 Hemoglobin A1c 8.1 H (0.0-6.0) % - Imaging Additional studies: X-ray of the foot was reviewed which does not demonstrate any evidence of subcutaneous air. Assessment and Plan Assessment: #1: Necrotic wound/pressure ulcer lateral aspect of the right foot. #2: Diabetes mellitus. #3: Cardiac dysrhythmia. #4: Abnormal coagulation profile (Coumadin). #5: Leukocytosis. Plan: The patient's wound was debrided with scissors at the bedside revealing a relatively healthy base. There is no undermining or tunneling noted. We will treat this with local wound care. We'll obtain arterial Doppler.
--- NOTE | 2022-02-01 07:47 | P.OP ---
Date of Procedure: 02/01/22 Preoperative Diagnosis: Decubitus ulcer right lateral foot. Postoperative Diagnosis: Same. Procedure(s) Performed: Excisional debridement right lateral foot wound. Implants: None. Anesthesia: none Surgeon: Rafi Ibarra Estimated Blood Loss (ml): 0 IV fluids (ml): 0 Urine output (ml): 0 Pathology: none sent Condition: stable Disposition: no change Indications for Procedure: Nonhealing wound lateral aspect right foot. Description of Procedure: Patient was in his bed. He was rolled in the laced the left lateral decubitus position exposing the lateral aspect of the right foot. A stage II wound with necrotic eschar was identified measuring 8.5 x 4 cm. Utilizing scissor technique the necrotic tissue was debrided. The wound base itself appeared relatively clean. There is no evidence of undermining or tunneling. The wound was then dressed with normal saline moistened gauze and dry mapping. Plan is to begin to utilize one half strength Dakin solution to be applied to the wound on an every 12 hour basis alternating with normal saline moistened gauze every 12 hours. Additionally because this appears to be decubitus in nature a MediPort has been ordered to help avoid continued pressure.
[2022-02-01 07:48] LABS: Basophils % (A) 0 %; Eosinophils % (A) 0 %; HCT 46.3 % (39.0-53.0); HGB 14.8 gm/dL (13.0-17.5); Hypochromasia Slight; Lymphocytes # (A) 0.4 k/uL (1.0-4.8); Lymphocytes % (A) 2 %; MCH 28.8 pg (25.0-35.0); MCHC 31.9 g/dL (31.0-37.0); MCV 90.3 fL (80.0-100.0); Mean Platelet Volume 9.6; Monocytes # (A) 0.7 k/uL (0-1.0); Monocytes % (A) 4 %; Neutrophils # (A) 15.7 k/uL (1.3-7.7); Neutrophils % (A) 92 %; Platelet Count 195 k/uL (150-450); RBC 5.12 m/uL (4.30-5.90); RDW 15.6 % (11.5-15.5); WBC 17.1 k/uL (3.8-10.6)
[2022-02-01] MEDS ORDERED: VANCOMYCIN IV PER PHARMACY 1 EACH MISC MISCELLANE PRN (07:55)
[2022-02-01 08:11] LABS: INR 1.1 (<1.2)
--- NOTE | 2022-02-01 08:46 | P.CONS ---
History of Present Illness - Reason for Consult Consult date: 01/31/22 - History of Present Illness Patient is a 61-year-old male presenting to the ER for evaluation of a fall apparently the patient states that he got up from the bed to try to use the restroom however when he grabbed his walker incorrectly ended up falling patient fell on his bottom denies hitting his head or any loss of consciousness the patient also been dealing with a wound on the right lateral foot which appar ently has been there for a few weeks as the patient seem to be mostly bedbound with a constant pressure on that area patient did have neuropathy and denies having any pain to the right foot wound area patient was noticed to have a extensive wound to the right foot wound area with some necrotic edges and surrounding cellulitis that has prompted this infectious disease consultation patient presentation to the hospital was afebrile and no fever have been recorded subsequently patient did have white count 21,000. Creatinine mildly elevated liver enzymes are normal urine was positive patient did have a foot x- ray no acute abnormality of the right foot and no focal bony destruction patient did have a abnormal bladder ultrasound evidence of any hydronephrosis Past Medical History Past Medical History: COPD, Diabetes Mellitus, Hyperlipidemia, Hypertension Additional Past Medical History / Comment(s): back problems, TB History of Any Multi-Drug Resistant Organisms: None Reported Additional Past Surgical History / Comment(s): plate in skull, neck surgery Past Anesthesia/Blood Transfusion Reactions: No Reported Reaction Past Psychological History: No Psychological Hx Reported Smoking Status: Current every day smoker, Heavy tobacco smoker Past Alcohol Use History: None Reported Past Drug Use History: Marijuana Medications and Allergies Home Medications Medication Instructions Recorded Confirmed Type Pregabalin [Lyrica] 200 mg PO BID #6 cap 08/28/17 01/31/22 Rx Albuterol Inhaler [Ventolin Hfa 2 puff INHALATION RT-Q6H PRN 01/31/22 01/31/22 History Inhaler] Albuterol Nebulized [Ventolin 2.5 mg INHALATION RT-Q6H PRN 01/31/22 01/31/22 History Nebulized] Atorvastatin [Lipitor] 40 mg PO HS 01/31/22 01/31/22 History HYDROcodone/APAP 7.5-325MG [[place] 1 tab PO BID PRN 01/31/22 01/31/22 History 7.5-325] Metoprolol Tartrate [Lopressor] 50 mg PO TID 01/31/22 01/31/22 History Morphine Sulfate ER [Ms Contin] 15 mg PO Q12HR 01/31/22 01/31/22 History Tiotropium [place] [Spiriva] 1 puff INHALATION RT-DAILY 01/31/22 01/31/22 History Warfarin [Coumadin] 2.5 mg PO MOFR@209901/31/22 01/31/22 History Warfarin [Coumadin] 5 mg PO SUTUWETHSA@209901/31/22 01/31/22 History buPROPion XL [Wellbutrin XL] 150 mg PO BID 01/31/22 01/31/22 History glipiZIDE [Glucotrol] 10 mg PO BID 01/31/22 01/31/22 History Allergies Allergy/AdvReac Type Severity Reaction Status Date / Time phenytoin [From Dilantin] Allergy Unknown Verified 01/31/22 11:46 Physical Exam Vitals: Vital Signs Temp Pulse Resp BP Pulse Ox 01/31/22 08:06 98.8 F 121 H 18 169/86 95 01/31/22 06:00 126 H 22 141/88 01/31/22 04:40 131 H 20 124/85 93 L 01/31/22 01:03 98.6 F 129 H 20 172/97 93 L Intake and Output 01/30/22 01/31/22 01/31/22 22:59 06:59 14:59 Other: Weight 136.078 kg 136.078 kg Results CBC & Chem 7: 02/01/22 07:07 01/31/22 04:15 Labs: Abnormal Lab Results - Last 24 Hours (Table) 01/31/22 01/31/22 01/31/22 Range/Units 04:15 04:15 07:00 WBC 25.8 H (3.8-10.6) k/uL MCHC 30.8 L (31.0-37.0) g/dL Neutrophils # 24.1 H (1.3-7.7) k/uL Lymphocytes # 0.3 L (1.0-4.8) k/uL PT >130.0 H (9.0-12.0) sec INR >10.0 H* (<1.2) APTT 66.7 H (22.0-30.0) sec Sodium 131 L (137-145) mmol/L Chloride 91 L (98-107) mmol/L BUN 24 H (9-20) mg/dL Creatinine 1.82 H (0.66-1.25) mg/dL Glucose 217 H (74-99) mg/dL Total Bilirubin 1.4 H (0.2-1.3) mg/dL Alkaline Phosphatase 186 H (38-126) U/L Total Protein 6.1 L (6.3-8.2) g/dL Albumin 2.9 L (3.5-5.0) g/dL Assessment and Plan Plan: 1patient with right foot unstageable pressure ulcer with surrounding necrotic area and cellulitis x-rays do not show any bony changes likely from gram- positive skin caleb) gram-negative pathogen, will need vascular surgery evaluation for debridement and deep culture. 2patient to continue with the cefepime awaiting further work-up to finalize. 3dry protective dressing and keep the area of the pressure. We will follow on clinical condition and cultures to further adjust medication if needed Thank you for this consultation will follow this patient along with you Time with Patient: Greater than 30
--- NOTE | 2022-02-01 09:43 | CT ---
EXAMINATION TYPE: CT chest wo con CT DLP: 723.5 mGycm, Automated exposure control for dose reduction was used. DATE OF EXAM: 02/01/2022 9:30 AM COMPARISON: Chest radiograph 01/31/2022. CLINICAL INDICATION:Male, 61 years old with history of Fall. Right chest wall pain. Hemoptysis.; PH H, Rt chest wall pain TECHNIQUE: Multiple axial images were obtained through the chest without IV contrast. Lack of IV or o ral contrast limits evaluation of solid and hollow organ viscera. Sagittal reformats reviewed FINDINGS: LUNGS/ PLEURA: No discrete pneumothorax in this time. Patchy airspace disease along the medial aspect of the right left lobe and lateral aspect of the left upper lobe. Left lower lobe subsegmental atele ctasis. Trace right hemothorax with associated atelectasis and/or pulmonary contusion. AIRWAY: Patent and unremarkable.. HEART: Size within normal limits. No pericardial effusion. MEDIASTINUM: No gross evidence of adenopathy. VASCULATURE: No aortic aneurysm. Enlarged pulmonary measuring 4.1 cm in diameter. MUSCULOSKELETAL: Mildly displaced right lateral rib 8, nondisplaced 9, and nondisplaced 10th rib frac tures. Remote right lateral eighth rib fracture. Please refer to dedicated CT lumbar spine same day f or findings. SOFT TISSUES/LYMPH NODES: Right lateral chest wall contusion and a few foci of gas. Bilateral gynecom astia. LOWER NECK: Macrocalcification with left thyroid lobe. UPPER ABDOMEN: Fluid and gas-filled distended stomach. IMPRESSION: 1. Right lateral 8th through 10th rib fractures with associated gas, trace hemothorax, right lower lo be atelectasis and/or pulmonary contusion. Additional right lateral chest wall contusion. No discrete pneumothorax at this time. 2. Patchy airspace disease within the left upper lobe which may represent infectious/inflammatory pro cess. 3. Dilated pulmonary artery which can be seen setting of pulmonary arterial hypertension. 4. Fluid and gas-filled distended stomach.
--- NOTE | 2022-02-01 09:50 | CT ---
EXAMINATION TYPE: CT lumbar spine wo con CT DLP: 1559 mGycm, Automated exposure control for dose reduction was used. DATE OF EXAM: 02/01/2022 9:31 AM COMPARISON: None. CLINICAL INDICATION:Male, 61 years old with history of Fall low back pain and rule out fracture; PHH, Low back pain TECHNIQUE: Multiple axial images were obtained from the midportion of T11 through the sacroiliac jonatahn nts. Soft tissue and bone windows in coronal and sagittal planes were obtained and reviewed. FINDINGS: Alignment: There are 6 lumbar type vertebral bodies within normal alignment. Bone: There is a comminuted acute compression fracture of the superior anterior endplates of the L1 v ertebral body. Approximately 30% height loss with no retropulsion. Discs: Multilevel degenerative disc disease with endplate sclerosis, disc space narrowing, vacuum dis c disease, and osteophytosis. T12-L1: No spinal canal or neural foraminal stenosis is identified. L1-L2: No spinal canal or neural foraminal stenosis is identified. L2-L3: No spinal canal or neural foraminal stenosis is identified. L3-L4: Broad-based disc bulge with ligamentum flavum buckling and facet arthropathy contributing to m ild spinal canal stenosis. The neural foramina are patent bilaterally. L4-L5: Broad-based disc bulge with facet arthropathy contributing to mild to moderate spinal canal s tenosis. Mild bilateral neural foraminal stenosis L5-L6: Large posterior disc osteophyte complex with mild effacement of the thecal sac. Moderate to se shorty right neural foraminal necrosis. The left neural foramen is patent. L6-S1: No spinal canal or neural foraminal stenosis is identified. Other: Suggested 7 mm calculus within the right renal pelvis. IMPRESSION: 1. Acute anterior wedge compression deformity of the L1 vertebral body with approximately 30% height loss and no retropulsion. 2. Multilevel degenerative disc disease as described above. 3. Suggested 7 mm calculus within the right renal pelvis.
[2022-02-01] MEDS ORDERED: HEPARIN SODIUM 1,000 UN/ML (10ML VL) IV ONE (09:54)
[2022-02-01] MEDS ORDERED: HEPARIN SODIUM 1,000 UN/ML (10ML VL) IV PRN (09:54)
[2022-02-01] MEDS ORDERED: HEPARIN SOD,PORK IN 0.45% NACL 25,000 UNIT in 0.45% NACL 1 250ML.BAG IV SCH (10:00)
[2022-02-01] MEDS: MORPHINE SULFATE ER 15 MG TABLET PO SCH ×2 (10:14→21:03)
[2022-02-01] MEDS: PREGABALIN 100 MG CAP PO SCH ×2 (10:14→21:03)
[2022-02-01] MEDS: TAMSULOSIN 0.4 MG CAP.ER.24H PO SCH (10:14)
[2022-02-01] MEDS: guaiFENesin 600 MG TABLET.ER PO SCH ×4 (10:14→21:03)
[2022-02-01] MEDS: VANCOMYCIN 2,000 MG in SODIUM CHLORIDE 0.9% 500 ML 500 ML IVPB SCH (10:15)
[2022-02-01] MEDS: PANTOPRAZOLE 40 MG/10 ML VIAL IVP SCH ×2 (10:15→21:04)
[2022-02-01] MEDS: SODIUM HYPOCHLORITE 0.25% 480 ML BOT MISCELLANE SCH (10:18)
--- NOTE | 2022-02-01 10:33 | P.CRDCN ---
History of Present Illness Consult date: 02/01/22 Consult reason: atrial fibrillation History of present illness: The patient is a 61-year-old male with multiple comorbid conditions, who is currently admitted to the hospital with cellulitis and lower extremity necrotic wound. he underwent debridement with vascular surgery. The patient subsequently developed atrial flutter with RVR and therefore cardiology was consulted. He does have a known history of atrial fibrillation and is anticoagulated outpatient. DIAGNOSTICS: Chest x-ray shows no acute cardiopulmonary process EKG shows atrial flutter with RVR CT of the chest shows patchy airspace disease. Prior rib fractures also noted. Lab data: WBC 17.1, hemoglobin 14.8, hematocrit 46.3, platelet 195, sodium 131, potassium 3.9, BUN 24, creatinine 1.8 to, hemoglobin A1c 8.1, AST 39, ALT 17, troponin normal PAST MEDICAL HISTORY: Atrial fibrillation, current smoker, COPD, diabetes, dyslipidemia, hypertension REVIEW OF SYSTEMS: No fever or chills. No cough or expectoration. No diaphoresis. Patient denies headache, dizziness, blurred vision, double vision. Positive for stomach discomfort, nausea, vomiting. No hematochezia. No hem atemesis. Denies any black stools or blood in his stools. Denies dysuria or hematuria. No muscle weakness or numbness. No chest pain or chest pressure. No dyspnea. PHYSICAL EXAMINATION: This is a 61-year-old obese male in no apparent distress at the time of my examination. HEENT: Head is atraumatic, normocephalic. Pupils are equal, round. Sclerae anicteric. Conjunctivae are clear. Mucous membranes of the mouth are dry. Neck is supple. There is no jugular venous distention. No carotid bruit is heard. CHEST EXAMINATION: Lungs are coarse to auscultation. No chest wall tenderness is noted on palpation or with deep breathing. HEART EXAMINATION: Heart rate irregular. No murmurs, gallops or rub. ABDOMEN: Soft, nontender. Bowel sounds are heard. No organomegaly noted. EXTREMITIES: palpable peripheral pulses. +2 peripheral edema. Wound noted on right lateral foot NEUROLOGIC EXAMINATION: Patient is awake, alert and oriented x2. FINAL ASSESSMENT AND PLAN: Atrial flutter with RVR, increase beta donovan Coumadin toxicity, INR now 1.1, start heparin drip Cellulitis, with necrotic wound Leukocytosis History of uncontrolled diabetes History of hypertension PLAN: Increase metoprolol to 100 mg twice daily Wean off Cardizem as tolerated Start heparin drip for anticoagulation Social work to check coverage for novel agent Further recommendations based on clinical course I am dictating on behalf of Dr Pramod Burks's history/physical and assessment/plan. Past Medical History Past Medical History: COPD, Diabetes Mellitus, Hyperlipidemia, Hypertension Additional Past Medical History / Comment(s): back problems, TB History of Any Multi-Drug Resistant Organisms: None Reported Additional Past Surgical History / Comment(s): plate in skull, neck surgery Past Anesthesia/Blood Transfusion Reactions: No Reported Reaction Past Psychological History: No Psychological Hx Reported Smoking Status: Current every day smoker, Heavy tobacco smoker Past Alcohol Use History: None Reported Past Drug Use History: Marijuana Medications and Allergies Home Medications Medication Instructions Recorded Confirmed Type Pregabalin [Lyrica] 200 mg PO BID #6 cap 08/28/17 01/31/22 Rx Albuterol Inhaler [Ventolin Hfa 2 puff INHALATION RT-Q6H PRN 01/31/22 01/31/22 History Inhaler] Albuterol Nebulized [Ventolin 2.5 mg INHALATION RT-Q6H PRN 01/31/22 01/31/22 History Nebulized] Atorvastatin [Lipitor] 40 mg PO HS 01/31/22 01/31/22 History HYDROcodone/APAP 7.5-325MG [[place] 1 tab PO BID PRN 01/31/22 01/31/22 History 7.5-325] Metoprolol Tartrate [Lopressor] 50 mg PO TID 01/31/22 01/31/22 History Morphine Sulfate ER [Ms Contin] 15 mg PO Q12HR 01/31/22 01/31/22 History Tiotropium [place] [Spiriva] 1 puff INHALATION RT-DAILY 01/31/22 01/31/22 History Warfarin [Coumadin] 2.5 mg PO MOFR@209901/31/22 01/31/22 History Warfarin [Coumadin] 5 mg PO SUTUWETHSA@209901/31/22 01/31/22 History buPROPion XL [Wellbutrin XL] 150 mg PO BID 01/31/22 01/31/22 History glipiZIDE [Glucotrol] 10 mg PO BID 01/31/22 01/31/22 History Allergies Allergy/AdvReac Type Severity Reaction Status Date / Time phenytoin [From Dilantin] Allergy Unknown Verified 01/31/22 11:46 Physical Exam Vitals: Vital Signs Temp Pulse Pulse Resp BP BP Pulse Ox 02/01/22 08:05 97.7 F 131 H 18 146/77 92 L 02/01/22 07:54 124 H 02/01/22 07:40 124 H 92 L 02/01/22 03:59 97.9 F 133 H 18 129/90 92 L 02/01/22 02:00 133 H 18 02/01/22 00:00 98.4 F 132 H 18 147/81 97 01/31/22 23:41 98.4 F 132 H 18 119/82 93 L 01/31/22 21:59 98.4 F 133 H 18 128/80 94 L 01/31/22 21:49 98.3 F 132 H 18 139/89 93 L 01/31/22 21:28 98.3 F 134 H 18 132/84 97 01/31/22 20:21 97.4 F L 130 H 18 152/108 96 01/31/22 20:00 98.5 F 126 H 18 128/84 98 01/31/22 19:51 7 F L 122 H 18 130/80 94 L 01/31/22 19:41 97.8 F 116 H 18 137/88 92 L 01/31/22 17:50 98.0 F 112 H 18 120/61 96 01/31/22 15:29 120 H 01/31/22 15:16 120 H 01/31/22 14:00 18 Intake and Output 01/31/22 02/01/22 02/01/22 22:59 06:59 14:59 Intake Total 668 223 0 Output Total 400 900 Balance 268 -677 0 Intake: Oral 0 0 Blood Product 668 223 Ffp 24 Pher Acda Cnt1 222 Unit [id number] Ffp 24 Pher Acda Cnt1 0 223 Unit [id number] Output: Urine 400 800 Emesis 100 Other: Voiding Method Indwelling Catheter Indwelling Catheter Results 02/01/22 07:07 01/31/22 04:15 Coagulation 02/01/22 Range/Units 07:07 PT 12.0 (9.0-12.0) sec CBC 01/31/22 02/01/22 Range/Units 17:43 07:07 WBC 21.0 H 17.1 H (3.8-10.6) k/uL RBC 5.03 5.12 (4.30-5.90) m/uL Hgb 13.8 14.8 (13.0-17.5) gm/dL Hct 44.7 46.3 (39.0-53.0) % Plt Count 211 195 (150-450) k/uL Current Medications Generic Name Dose Route Start Last Admin Trade Name Freq PRN Reason Stop Dose Admin Acetaminophen 650 mg 01/31/22 04:46 Acetaminophen Tab 325 Mg Tab PO Q6HR PRN Mild Pain or Fever > 100.5 Albuterol/Ipratropium 3 ml 01/31/22 16:00 02/01/22 07:40 Ipratropium-Albuterol 3 Ml Neb INHALATION 3 ml RT-QID CRUZ Administration Budesonide 1 mg 01/31/22 12:49 02/01/22 07:40 Budesonide 1 Mg/2 Ml Nebu INHALATION 1 mg RT-BID CRUZ Administration Calcium Carbonate/Glycine 1,000 mg 01/31/22 12:54 01/31/22 14:29 Calcium Carbonate 500 Mg Chewable PO 1,000 mg Q4HR PRN Administration Dyspepsia Dextrose/Water 25 ml 01/31/22 12:51 Dextrose 50% Syringe 50 Ml IVP PER PROTOCOL PRN Hypoglycemia Protocol Dextrose/Water 50 ml 01/31/22 12:51 Dextrose 50% Syringe 50 Ml IVP PER PROTOCOL PRN Hypoglycemia Protocol Guaifenesin 600 mg 01/31/22 13:00 02/01/22 10:14 Guaifenesin 600 Mg Tablet.Er PO 600 mg QID CRUZ Administration Hydromorphone HCl 0.5 mg 01/31/22 17:29 02/01/22 08:03 Hydromorphone 0.5 Mg/0.5 Ml Syringe IVP 0.5 mg Q3HR PRN Administration Pain Cefepime HCl 2 gm/ Sodium 100 mls @ 200 mls/hr 01/31/22 05:00 02/01/22 05:21 Chloride IVPB 200 mls/hr Q12H CRUZ Administration Lactated Ringer's 1,000 mls @ 100 mls/hr 01/31/22 16:15 02/01/22 02:36 Lactated Ringers IV Not Given .Q10H CRUZ Protocol Sodium Chloride 1,000 mls @ 100 mls/hr 01/31/22 17:15 02/01/22 05:21 Saline 0.9% IV 100 mls/hr .Q10H CRUZ Administration Diltiazem HCl 125 mg/ Sodium 125 mls @ 5 mls/hr 02/01/22 05:30 02/01/22 05:17 Chloride IV 5 mg/hr .Q24H CRUZ 5 mls/hr Administration 5 MG/HR Vancomycin HCl 2,000 mg/ 500 mls @ 167 mls/hr 02/01/22 09:00 02/01/22 10:15 Sodium Chloride IVPB 167 mls/hr Q24H CRUZ Administration Insulin Aspart 0 unit 01/31/22 13:00 02/01/22 06:50 Insulin Aspart (Novolog) 100 Unit/Ml Vial SQ Not Given AC-TID [facility] Protocol Insulin Detemir 14 unit 01/31/22 21:00 01/31/22 21:25 Insulin Detemir (Levemir) 100 Unit/Ml Syr SQ Not Given HS [facility] Lactulose 20 gm 01/31/22 12:54 Lactulose 20 Gm/30 Ml Cup PO DAILY PRN Constipation Melatonin 3 mg 01/31/22 12:54 Melatonin 3 Mg Tablet PO HS PRN Insomnia Metoprolol Tartrate 100 mg 02/01/22 21:00 Metoprolol Tartrate 50 Mg Tab PO BID [facility] Miscellaneous Information 1 each 02/01/22 07:55 Vancomycin Iv Per Pharmacy 1 Each Mis MISCELLANE DIRECTED PRN Per Protocol Protocol Morphine Sulfate 15 mg 01/31/22 11:00 02/01/22 10:14 Morphine Sulfate Er 15 Mg Tablet PO 15 mg Q12HR CRUZ Administration Protocol Naloxone HCl 0.2 mg 01/31/22 05:07 Naloxone 0.4 Mg/Ml 1 Ml Vial IV Q2M PRN Opioid Reversal Nicotine 1 patch 01/31/22 13:00 01/31/22 14:29 Nicotine 21mg/24hr Patch TRANSDERM 1 patch DAILY CRUZ Administration Ondansetron HCl 4 mg 01/31/22 04:46 02/01/22 05:25 Ondansetron 4 Mg/2 Ml Vial IVP 4 mg Q8HR PRN Administration Nausea And Vomiting Pantoprazole Sodium 40 mg 01/31/22 17:24 02/01/22 10:15 Pantoprazole 40 Mg/10 Ml Vial IVP 40 mg BID CRUZ Administration Pregabalin 100 mg 01/31/22 21:00 02/01/22 10:14 Pregabalin 100 Mg Cap PO 100 mg BID CRUZ Administration Sodium Hypochlorite 0 ml 02/01/22 09:00 02/01/22 10:18 Sodium Hypochlorite 0.25% 480 Ml Bot MISCELLANE 480 ml DAILY CRUZ Administration Tamsulosin HCl 0.4 mg 01/31/22 13:00 02/01/22 10:14 Tamsulosin 0.4 Mg Cap.Er.24h PO 0.4 mg [id number] CRUZ Administration Intake and Output 01/31/22 02/01/22 02/01/22 22:59 06:59 14:59 Intake Total 668 223 0 Output Total 400 900 Balance 268 -677 0 Intake: Oral 0 0 Blood Product 668 223 Ffp 24 Pher Acda Cnt1 222 Unit [id number] Ffp 24 Pher Acda Cnt1 0 223 Unit [id number] Output: Urine 400 800 Emesis 100 Other: Voiding Method Indwelling Catheter Indwelling Catheter 02/01/22 07:07 01/31/22 04:15
--- NOTE | 2022-02-01 10:52 | P.CNOR ---
History of Present Illness - [facility] Consult date: 02/01/22 History of present illness: This patient is a 61-year-old male past medical history of diabetes, hypertension, hyperlipidemia, COPD, cigarette smoking, atrial fibrillation on Coumadin that presented to [facility] emergency department yesterday with complaints of low back pain following a fall at home. The patient states he was ambulating in his bathroom and lost his footing. He was unable to get off the floor due to his pain, therefore EMS was called. Upon arrival to the emergency department, x-rays were taken of the lumbar spine and sacrum/coccyx, which revealed no fracture. Patient was found to be in A. fib with RVR in the emergency department. His INR was also found to be 10. Patient was also found to have multiple open wounds with purulent discharge along the right lateral ankle and foot. Patient was admitted under the care of internal medicine with a consult placed to orthopedic surgery for back pain. Patient is examined bedside this morning. His fiance is bedside. He states he is experiencing significant lower back pain. He does have a history of chronic back pain, which is managed by Dr. Chan. Computed tomography scan of the lumbar spine was ordered yesterday by Dr. Mcdaniel, although the patient states he initially refused. Although per nursing, this was obtained this morning. Patient is experiencing numbness in his feet, although patient states this is chronic and he has neuropathy secondary to his diabetes. There are no additional complaints at this time. Past Medical History Past Medical History: COPD, Diabetes Mellitus, Hyperlipidemia, Hypertension Additional Past Medical History / Comment(s): back problems, TB History of Any Multi-Drug Resistant Organisms: None Reported Additional Past Surgical History / Comment(s): plate in skull, neck surgery Past Anesthesia/Blood Transfusion Reactions: No Reported Reaction Past Psychological History: No Psychological Hx Reported Smoking Status: Current every day smoker, Heavy tobacco smoker Past Alcohol Use History: None Reported Past Drug Use History: Marijuana Medications and Allergies Home Medications Medication Instructions Recorded Confirmed Type Pregabalin [Lyrica] 200 mg PO BID #6 cap 08/28/17 01/31/22 Rx Albuterol Inhaler [Ventolin Hfa 2 puff INHALATION RT-Q6H PRN 01/31/22 01/31/22 History Inhaler] Albuterol Nebulized [Ventolin 2.5 mg INHALATION RT-Q6H PRN 01/31/22 01/31/22 History Nebulized] Atorvastatin [Lipitor] 40 mg PO HS 01/31/22 01/31/22 History HYDROcodone/APAP 7.5-325MG [[place] 1 tab PO BID PRN 01/31/22 01/31/22 History 7.5-325] Metoprolol Tartrate [Lopressor] 50 mg PO TID 01/31/22 01/31/22 History Morphine Sulfate ER [Ms Contin] 15 mg PO Q12HR 01/31/22 01/31/22 History Tiotropium [place] [Spiriva] 1 puff INHALATION RT-DAILY 01/31/22 01/31/22 History Warfarin [Coumadin] 2.5 mg PO MOFR@209901/31/22 01/31/22 History Warfarin [Coumadin] 5 mg PO SUTUWETHSA@209901/31/22 01/31/22 History buPROPion XL [Wellbutrin XL] 150 mg PO BID 01/31/22 01/31/22 History glipiZIDE [Glucotrol] 10 mg PO BID 01/31/22 01/31/22 History Allergies Allergy/AdvReac Type Severity Reaction Status Date / Time phenytoin [From Dilantin] Allergy Unknown Verified 01/31/22 11:46 Physical Examination On examination, the patient is lying in bed in no apparent distress. He is alert and answers questions appropriately, although he appears mildly confused. His fiance is bedside. On inspection of his bilateral upper extremities, there are no obvious deformities or signs of trauma. On inspection of his bilateral lower extremities, no obvious deformities or signs of trauma. There are multiple open wounds and necrotic tissue to the lateral aspect of the right ankle and dorsal foot. No pain with passive range of motion of the bilateral hips. Calves are soft and non-tender to palpation bilaterally. Motor and sensory function is grossly intact of the bilateral lower extremities. Patient has good strength range of motion of the bilateral ankles, toes. Patient refuses examination of his back due to his pain. Results Lumbar spine x-ray 01/31/22: No obvious fractures. CT scan lumbar spine 02/01/22: Acute compression deformity of the L1 vertebral body was approximated 30% height loss, no retropulsion. Multilevel degenerative disc disease. - Labs Labs: Abnormal Lab Results - Last 24 Hours (Table) 01/31/22 01/31/22 01/31/22 Range/Units 04:15 11:38 16:50 WBC (3.8-10.6) k/uL MCHC (31.0-37.0) g/dL RDW (11.5-15.5) % Neutrophils # (1.3-7.7) k/uL Lymphocytes # (1.0-4.8) k/uL POC Glucose (mg/dL) 143 H 189 H (70-110) mg/dL Hemoglobin A1c 8.1 H (0.0-6.0) % Urine Protein (Negative) Urine Glucose (UA) (Negative) Urine Ketones (Negative) Urine Blood (Negative) Ur Leukocyte Esterase (Negative) Urine RBC (0-5) /hpf Urine WBC (0-5) /hpf Urine Bacteria (None) /hpf Urine Mucus (None) /hpf Urine Yeast (Budding) (None) /hpf 01/31/22 01/31/22 01/31/22 Range/Units 17:43 18:45 20:27 WBC 21.0 H (3.8-10.6) k/uL MCHC 30.9 L (31.0-37.0) g/dL RDW (11.5-15.5) % Neutrophils # (1.3-7.7) k/uL Lymphocytes # (1.0-4.8) k/uL POC Glucose (mg/dL) 163 H (70-110) mg/dL Hemoglobin A1c (0.0-6.0) % Urine Protein 1+ H (Negative) Urine Glucose (UA) Trace H (Negative) Urine Ketones Trace H (Negative) Urine Blood Large H (Negative) Ur Leukocyte Esterase Moderate H (Negative) Urine RBC >182 H (0-5) /hpf Urine WBC 28 H (0-5) /hpf Urine Bacteria Rare H (None) /hpf Urine Mucus Rare H (None) /hpf Urine Yeast (Budding) Few H (None) /hpf 02/01/22 02/01/22 Range/Units 06:46 07:07 WBC 17.1 H (3.8-10.6) k/uL MCHC (31.0-37.0) g/dL RDW 15.6 H (11.5-15.5) % Neutrophils # 15.7 H (1.3-7.7) k/uL Lymphocytes # 0.4 L (1.0-4.8) k/uL POC Glucose (mg/dL) 135 H (70-110) mg/dL Hemoglobin A1c (0.0-6.0) % Urine Protein (Negative) Urine Glucose (UA) (Negative) Urine Ketones (Negative) Urine Blood (Negative) Ur Leukocyte Esterase (Negative) Urine RBC (0-5) /hpf Urine WBC (0-5) /hpf Urine Bacteria (None) /hpf Urine Mucus (None) /hpf Urine Yeast (Budding) (None) /hpf Microbiology - Last 24 Hours (Table) 01/31/22 06:45 Gram Stain - Preliminary Ankle - Right Wound Culture - Preliminary Strep agalactiae - (group b) Presumptive Staph aureus 01/31/22 21:47 Blood Culture Gram Stain - Preliminary Blood 01/31/22 10:05 Blood Culture - Final Blood 01/31/22 18:55 Blood Culture Gram Stain - Preliminary Blood 01/31/22 07:00 Blood Culture - Final Blood 01/31/22 06:45 Anaerobic Culture - Preliminary Ankle - Right H & H 01/31/22 01/31/22 02/01/22 Range/Units 04:15 17:43 07:07 Hgb 14.1 13.8 14.8 (13.0-17.5) gm/dL Hct 45.7 44.7 46.3 (39.0-53.0) % Coagulation 01/31/22 02/01/22 Range/Units 07:00 07:07 INR >10.0 H* 1.1 (<1.2) Result Diagrams: 02/01/22 07:07 01/31/22 04:15 Assessment and Plan Assessment: Low back pain Acute L1 compression fracture Plan: - Clinical and imaging findings were discussed with the patient. The patient was discussed with Dr. Damon. Computed tomography scan shows evidence of a compression deformity of L1. LSO brace has been ordered. Patient should wear brace when out of bed. - Pain management as needed. Patient takes Morphine ER and [place] as home med. Will defer pain medication to admitting team. - We will follow patient as he remains inpatient. Patient should follow-up in the office with Dr. Arana as an outpatient.
[2022-02-01] MEDS: NICOTINE 21MG/24HR PATCH TRANSDERM SCH (11:02)
--- NOTE | 2022-02-01 11:42 | P.GSCN ---
History of Present Illness Consult date: 02/01/22 Reason for Consult: Upper GI bleed History of present illness: 61-year-old male hospitalized for weakness, mental status changes, and recent fa ll. Patient found to have right-sided rib fractures and lumbar fracture. Yesterday had an episode of coffee-ground emesis and that's why we were consulted. Patient had a CAT scan performed showing significant gastric dilation with an air-fluid level. White blood cell count was 21 yesterday 17 to day. Hemoglobin has actually gone up to 14.8 today. He is on a clear liquid diet. Feels bloated. Slightly confused. Review of Systems ROS unobtainable: due to mental status Past Medical History Past Medical History: COPD, Diabetes Mellitus, Hyperlipidemia, Hypertension Additional Past Medical History / Comment(s): back problems, TB History of Any Multi-Drug Resistant Organisms: None Reported Additional Past Surgical History / Comment(s): plate in skull, neck surgery Past Anesthesia/Blood Transfusion Reactions: No Reported Reaction Past Psychological History: No Psychological Hx Reported Smoking Status: Current every day smoker, Heavy tobacco smoker Past Alcohol Use History: None Reported Past Drug Use History: Marijuana Medications and Allergies Home Medications Medication Instructions Recorded Confirmed Type Pregabalin [Lyrica] 200 mg PO BID #6 cap 08/28/17 01/31/22 Rx Albuterol Inhaler [Ventolin Hfa 2 puff INHALATION RT-Q6H PRN 01/31/22 01/31/22 H istory Inhaler] Albuterol Nebulized [Ventolin 2.5 mg INHALATION RT-Q6H PRN 01/31/22 01/31/22 History Nebulized] Atorvastatin [Lipitor] 40 mg PO HS 01/31/22 01/31/22 History HYDROcodone/APAP 7.5-325MG [[place] 1 tab PO BID PRN 01/31/22 01/31/22 History 7.5-325] Metoprolol Tartrate [Lopressor] 50 mg PO TID 01/31/22 01/31/22 History Morphine Sulfate ER [Ms Contin] 15 mg PO Q12HR 01/31/22 01/31/22 History Tiotropium [place] [Spiriva] 1 puff INHALATION RT-DAILY 01/31/22 01/31/22 History Warfarin [Coumadin] 2.5 mg PO MOFR@2100 01/31/22 01/31/22 History Warfarin [Coumadin] 5 mg PO BE@2100 01/31/22 01/31/22 History buPROPion XL [Wellbutrin XL] 150 mg PO BID 01/31/22 01/31/22 History glipiZIDE [Glucotrol] 10 mg PO BID 01/31/22 01/31/22 History Allergies Allergy/AdvReac Type Severity Reaction Status Date / Time phenytoin [From Dilantin] Allergy Unknown Verified 01/31/22 11:46 Surgical - Exam Vital Signs Temp Pulse Resp BP Pulse Ox 98.6 F 129 H 20 172/97 93 L 01/31/22 01:03 01/31/22 01:03 01/31/22 01:03 01/31/22 01:03 01/31/22 01:03 Physical exam: General: Well-developed, well-nourished HEENT: Normocephalic, sclerae nonicteric Abdomen: Nontender, mild distention Extremities: Dressings in place Neuro: Alert but somewhat confused, family at bedside Results - Labs 02/01/22 07:07 01/31/22 04:15 Abnormal Lab Results - Last 24 Hours (Table) 01/31/22 01/31/22 01/31/22 Range/Units 04:15 11:38 16:50 WBC (3.8-10.6) k/uL MCHC (31.0-37.0) g/dL RDW (11.5-15.5) % Neutrophils # (1.3-7.7) k/uL Lymphocytes # (1.0-4.8) k/uL POC Glucose (mg/dL) 143 H 189 H (70-110) mg/dL Hemoglobin A1c 8.1 H (0.0-6.0) % Urine Protein (Negative) Urine Glucose (UA) (Negative) Urine Ketones (Negative) Urine Blood (Negative) Ur Leukocyte Esterase (Negative) Urine RBC (0-5) /hpf Urine WBC (0-5) /hpf Urine Bacteria (None) /hpf Urine Mucus (None) /hpf Urine Yeast (Budding) (None) /hpf 01/31/22 01/31/22 01/31/22 Range/Units 17:43 18:45 20:27 WBC 21.0 H (3.8-10.6) k/uL MCHC 30.9 L (31.0-37.0) g/dL RDW (11.5-15.5) % Neutrophils # (1.3-7.7) k/uL Lymphocytes # (1.0-4.8) k/uL POC Glucose (mg/dL) 163 H (70-110) mg/dL Hemoglobin A1c (0.0-6.0) % Urine Protein 1+ H (Negative) Urine Glucose (UA) Trace H (Negative) Urine Ketones Trace H (Negative) Urine Blood Large H (Negative) Ur Leukocyte Esterase Moderate H (Negative) Urine RBC >182 H (0-5) /hpf Urine WBC 28 H (0-5) /hpf Urine Bacteria Rare H (None) /hpf Urine Mucus Rare H (None) /hpf Urine Yeast (Budding) Few H (None) /hpf 02/01/22 02/01/22 Range/Units 06:46 07:07 WBC 17.1 H (3.8-10.6) k/uL MCHC (31.0-37.0) g/dL RDW 15.6 H (11.5-15.5) % Neutrophils # 15.7 H (1.3-7.7) k/uL Lymphocytes # 0.4 L (1.0-4.8) k/uL POC Glucose (mg/dL) 135 H (70-110) mg/dL Hemoglobin A1c (0.0-6.0) % Urine Protein (Negative) Urine Glucose (UA) (Negative) Urine Ketones (Negative) Urine Blood (Negative) Ur Leukocyte Esterase (Negative) Urine RBC (0-5) /hpf Urine WBC (0-5) /hpf Urine Bacteria (None) /hpf Urine Mucus (None) /hpf Urine Yeast (Budding) (None) /hpf Microbiology - Last 24 Hours (Table) 01/31/22 06:45 Gram Stain - Preliminary Ankle - Right Wound Culture - Preliminary Strep agalactiae - (group b) Presumptive Staph aureus 01/31/22 21:47 Blood Culture Gram Stain - Preliminary Blood 01/31/22 10:05 Blood Culture - Final Blood 01/31/22 18:55 Blood Culture Gram Stain - Preliminary Blood 01/31/22 07:00 Blood Culture - Final Blood 01/31/22 06:45 Anaerobic Culture - Preliminary Ankle - Right Diabetes panel 01/31/22 Range/Units 04:15 Hemoglobin A1c 8.1 H (0.0-6.0) % Assessment and Plan (1) Upper GI bleed Narrative/Plan: 61-year-old male with CAT scan showing gastric distention and recent coffee ground emesis. Suspect ileus from foot wound and urinary infection. We'll place nasogastric tube at this time. Keep nothing by mouth. Monitor output from nasogastric tube. No immediate plans for endoscopy. Continue antiacid therapy. We'll follow closely. Current Visit: Yes Status: Acute Code(s): K92.2 - GASTROINTESTINAL HEMORRHAGE, UNSPECIFIED SNOMED Code(s): 72973082
[2022-02-01 11:51] LABS: Glucose,Whole Blood 143 mg/dL (70-110)
--- NOTE | 2022-02-01 12:08 | XR ---
EXAMINATION TYPE: XR chest 1V portable DATE OF EXAM: 02/01/2022 12:00 PM COMPARISON: Chest radiographs from TECHNIQUE: XR chest 1V portable Frontal view of the chest. CLINICAL INDICATION:Male, 61 years old with history of NG Tube placement confirmation; FINDINGS: Lungs/Pleura: There is no evidence of focal consolidation or pneumothorax. Blunting of the right cost ophrenic angle consistent with known trace right hemothorax. Pulmonary vascularity: Unremarkable. Heart/mediastinum: Cardiomediastinal silhouette is unremarkable. Musculoskeletal: Known right-sided eighth through 10th rib fractures are better appreciated on CT. Other findings: None Lines/Tubes: Nasogastric tube with its distal tip and side-port projecting under the diaphragm. IMPRESSION: 1. Nasogastric tube is in appropriate position. 2. Trace right hemothorax. No pneumothorax. 3. Known right-sided eighth through 10th rib fractures are better appreciated on CT.
--- NOTE | 2022-02-01 12:26 | CT ---
EXAMINATION TYPE: CT brain wo con CT DLP: 2467.4 mGycm, Automated exposure control for dose reduction was used. DATE OF EXAM: 02/01/2022 12:19 PM COMPARISON: None. CLINICAL INDICATION:Male, 61 years old with history of NOS confusion, confusion and AMS TECHNIQUE: Brain: Multiple axial CT images of the brain were obtained without IV contrast. Coronal sagittal ref ormats reviewed FINDINGS: Brain: Extra-axial spaces: No abnormal extra-axial fluid collections. Ventricular system: Within normal limits Cerebral parenchyma: No acute intraparenchymal hemorrhage or mass effect. Region of low attenuation within the left occipital lobe near CSF attenuation. The chowdhury-white junction is well differentiated. Scattered hypoattenuating areas are seen within the white matter. Cerebellum: Unremarkable. Mass effect: No evidence of midline shift. Intracranial vasculature: Atherosclerotic calcifications of the intracranial vessels. Soft tissues: Normal. Calvarium/osseous structures: No depressed skull fracture. Paranasal sinuses and mastoid air cells: Mild scattered paranasal sinus disease. Visualized orbits: Orbital contents are intact. IMPRESSION: 1. No acute intracranial process. 2. Remote left occipital lobe injury along with nonspecific white matter changes likely secondary to chronic microangiopathy.
--- NOTE | 2022-02-01 13:21 | P.CNPUL ---
History of Present Illness Reason for consult: dyspnea History of present illness: This is a extremely debilitated 61-year-old male patient who is known to monitor milligrams and comorbidities and I was asked to evaluate this patient because of a fall and limited hemoptysis. The patient is known to have a combination of issues including diabetes mellitus and diabetic peripheral neuropathy and the patient has had previous episodes of falls and he has issues with chronic atrial flutter maintained on long-term anticoagulation with warfarin. He is morbidly obese. He has hypertension and hyperlipidemia as comorbid conditions along with chronic kidney disease. He is morbidly obese. He has history of COPD and is a chronic smoker. He comes in to the hospital after he had a fall at home. He was the bathroom and he slept and he landed on his left chest. Here in the hospital, the patient was found to be Coumadin toxic and his INR was above 10. He did have some limited hemoptysis and coffee-ground emesis without any melanotic stools. No abdominal pain. He was noted to have a large ulcer over the right ankle/malleolus area which is a chronic wound. Immediately the patient was given vitamin K. This computed tomography scan of the chest shows some right lateral eighth through 10th rib fractures with trace amount of right- sided pleural effusion and right basilar atelectasis related to underlying pulm onary contusion. No evidence of any pneumothorax. Some limited patchy airspace disease in the left upper lobe probably inflammatory in the same time the patient had dilated pulmonary arteries indicating possibility of pulmonary hypertension and a fluid and gas-filled distended stomach. I noted the patient has not had a CAT scan of the brain and a CAT scan was done that showed no acute intracranial process. There was a remote left occipital lobe injury along with some nonspecific white matter changes secondary to chronic microangiopathy. This computed tomography scan of the lumbar spine showed acute anterior wedge compression deformity of L1 vertebral body with a 30% loss in height along with multilevel degenerative disc changes and a 7 mm In the right pelvis. Patient was already seen by general surgery and orthopedic surgery. Lumbar spine x-ray that was done on 2021 showed no acute fracture. The patient was also seen by vascular surgery for a right lateral foot wound and this is a stage II wound 8.5 x 4 cm in size. Debridement was done by vascular surgery. Review of Systems Constitutional: Reports daytime sleepiness, Reports fatigue, Reports weakness, Reports weight gain Eyes: denies as per HPI, denies blurred vision, denies bulging eye, denies decreased vision, denies diplopia, denies discharge, denies dry eye, denies irritation, denies itching, denies pain, denies photophobia, denies loss of peripheral vision, denies loss of vision, denies tunnel vision/blind spots Ears: deny: decreased hearing, ear discharge, earache, tinnitus Breasts: absent: as per HPI, gynecomastia Cardiovascular: Reports decreased exercise tolerance, Reports dyspnea on exertion, Reports irregular heart beat, Reports shortness of breath Respiratory: Reports dyspnea Gastrointestinal: Reports as per HPI Genitourinary: Reports as per HPI Musculoskeletal: Reports fractures, Reports frequent falls, Reports gait dysfunction, Reports limitation of motion, Reports muscle weakness Musculoskeletal: absent: ankle pain, ankle stiffness, ankle swelling Integumentary: Reports wounds Neurological: Reports as per HPI, Reports ataxia, Reports gait dysfunction, Reports weakness Psychiatric: Reports as per HPI Endocrine: Reports as per HPI, Reports fatigue Hematologic/Lymphatic: Reports as per HPI Allergic/Immunologic: Reports as per HPI Past Medical History Past Medical History: COPD, Diabetes Mellitus, Hyperlipidemia, Hypertension Additional Past Medical History / Comment(s): back problems, TB History of Any Multi-Drug Resistant Organisms: None Reported Additional Past Surgical History / Comment(s): plate in skull, neck surgery Past Anesthesia/Blood Transfusion Reactions: No Reported Reaction Past Psychological History: No Psychological Hx Reported Smoking Status: Current every day smoker, Heavy tobacco smoker Past Alcohol Use History: None Reported Past Drug Use History: Marijuana Medications and Allergies Home Medications Medication Instructions Recorded Confirmed Type Pregabalin [Lyrica] 200 mg PO BID #6 cap 08/28/17 01/31/22 Rx Albuterol Inhaler [Ventolin Hfa 2 puff INHALATION RT-Q6H PRN 01/31/22 01/31/22 History Inhaler] Albuterol Nebulized [Ventolin 2.5 mg INHALATION RT-Q6H PRN 01/31/22 01/31/22 History Nebulized] Atorvastatin [Lipitor] 40 mg PO HS 01/31/22 01/31/22 History HYDROcodone/APAP 7.5-325MG [[place] 1 tab PO BID PRN 01/31/22 01/31/22 History 7.5-325] Metoprolol Tartrate [Lopressor] 50 mg PO TID 01/31/22 01/31/22 History Morphine Sulfate ER [Ms Contin] 15 mg PO Q12HR 01/31/22 01/31/22 History Tiotropium [place] [Spiriva] 1 puff INHALATION RT-DAILY 01/31/22 01/31/22 History Warfarin [Coumadin] 2.5 mg PO MOFR@209901/31/22 01/31/22 History Warfarin [Coumadin] 5 mg PO SUTUWETHSA@209901/31/22 01/31/22 History buPROPion XL [Wellbutrin XL] 150 mg PO BID 01/31/22 01/31/22 History glipiZIDE [Glucotrol] 10 mg PO BID 01/31/22 01/31/22 History Allergies Allergy/AdvReac Type Severity Reaction Status Date / Time phenytoin [From Dilantin] Allergy Unknown Verified 01/31/22 11:46 Physical Exam Vitals: Vital Signs Temp Pulse Pulse Resp BP BP Pulse Ox 02/01/22 08:05 97.7 F 131 H 18 146/77 92 L 02/01/22 07:54 124 H 02/01/22 07:40 124 H 92 L 02/01/22 03:59 97.9 F 133 H 18 129/90 92 L 02/01/22 02:00 133 H 18 02/01/22 00:00 98.4 F 132 H 18 147/81 97 01/31/22 23:41 98.4 F 132 H 18 119/82 93 L 01/31/22 21:59 98.4 F 133 H 18 128/80 94 L 01/31/22 21:49 98.3 F 132 H 18 139/89 93 L 01/31/22 21:28 98.3 F 134 H 18 132/84 97 01/31/22 20:21 97.4 F L 130 H 18 152/108 96 01/31/22 20:00 98.5 F 126 H 18 128/84 98 01/31/22 19:51 7 F L 122 H 18 130/80 94 L 01/31/22 19:41 97.8 F 116 H 18 137/88 92 L 01/31/22 17:50 98.0 F 112 H 18 120/61 96 01/31/22 15:29 120 H 01/31/22 15:16 120 H 01/31/22 14:00 18 Intake and Output 01/31/22 02/01/22 02/01/22 22:59 06:59 14:59 Intake Total 668 223 0 Output Total 400 900 Balance 268 -677 0 Intake: Oral 0 0 Blood Product 668 223 Ffp 24 Pher Acda Cnt1 222 Unit [id number] Ffp 24 Pher Acda Cnt1 0 223 Unit [id number] Output: Urine 400 800 Emesis 100 Other: Voiding Method Indwelling Catheter Indwelling Catheter Indwelling Catheter GENERAL: BMI 39.6, laying in bed, uncomfortable according to the right of the chest. The patient is currently on room air oxygen. Moving all 4 extremities without any limitation. Head exam was generally normal. There was no scleral icterus or corneal arcus. Mucous membranes were moist. EYES: Pupils equal. Conjunctiva normal. HEENT: External appearance of nose and ears normal, oral cavity grossly normal. NECK: JVD not raised; masses not palpable. HEART: Heart sounds irregular; mild edema. LUNGS: Respiratory rate increased; decreased breath sound, prolonged expiration, coarse crackles. ABDOMEN: Soft, distended, nontender, liver spleen not palpable, no masses pal pable. PSYCH: Alert and oriented x3; mood and affect anxiousl. DERMATOLOGICAL: Large wound around the lateral malleolus right foot Gangrene Changes MUSCULOSKELETAL:No Clubbing/cyanosis;muscles-grossly intact, increase in low back pain with movement NEUROLOGICAL: [Cranial nerves grossly intact; no facial asymmetry, having trouble lifting his legs. LYMPHATICS: No lymph nodes palpable in the axilla and neck Results - Laboratory Findings CBC and BMP: 02/01/22 07:07 01/31/22 04:15 PT/INR, D-dimer PT 12.0 sec (9.0-12.0) 02/01/22 07:07 INR 1.1 (<1.2) 02/01/22 07:07 Abnormal lab findings: Abnormal Labs 01/31/22 01/31/22 01/31/22 04:15 04:15 04:15 WBC 25.8 H MCHC 30.8 L RDW Neutrophils # 24.1 H Lymphocytes # 0.3 L PT INR APTT Sodium 131 L Chloride 91 L BUN 24 H Creatinine 1.82 H Glucose 217 H POC Glucose (mg/dL) Hemoglobin A1c 8.1 H Total Bilirubin 1.4 H Alkaline Phosphatase 186 H Total Protein 6.1 L Albumin 2.9 L Urine Protein Urine Glucose (UA) Urine Ketones Urine Blood Ur Leukocyte Esterase Urine RBC Urine WBC Urine Bacteria Urine Mucus Urine Yeast (Budding) 01/31/22 01/31/22 01/31/22 07:00 11:38 16:50 WBC MCHC RDW Neutrophils # Lymphocytes # PT >130.0 H INR >10.0 H* APTT 66.7 H Sodium Chloride BUN Creatinine Glucose POC Glucose (mg/dL) 143 H 189 H Hemoglobin A1c Total Bilirubin Alkaline Phosphatase Total Protein Albumin Urine Protein Urine Glucose (UA) Urine Ketones Urine Blood Ur Leukocyte Esterase Urine RBC Urine WBC Urine Bacteria Urine Mucus Urine Yeast (Budding) 01/31/22 01/31/22 01/31/22 17:43 18:45 20:27 WBC 21.0 H MCHC 30.9 L RDW Neutrophils # Lymphocytes # PT INR APTT Sodium Chloride BUN Creatinine Glucose POC Glucose (mg/dL) 163 H Hemoglobin A1c Total Bilirubin Alkaline Phosphatase Total Protein Albumin Urine Protein 1+ H Urine Glucose (UA) Trace H Urine Ketones Trace H Urine Blood Large H Ur Leukocyte Esterase Moderate H Urine RBC >182 H Urine WBC 28 H Urine Bacteria Rare H Urine Mucus Rare H Urine Yeast (Budding) Few H 02/01/22 02/01/22 02/01/22 06:46 07:07 11:46 WBC 17.1 H MCHC RDW 15.6 H Neutrophils # 15.7 H Lymphocytes # 0.4 L PT INR APTT Sodium Chloride BUN Creatinine Glucose POC Glucose (mg/dL) 135 H 143 H Hemoglobin A1c Total Bilirubin Alkaline Phosphatase Total Protein Albumin Urine Protein Urine Glucose (UA) Urine Ketones Urine Blood Ur Leukocyte Esterase Urine RBC Urine WBC Urine Bacteria Urine Mucus Urine Yeast (Budding) - Diagnostic Findings Chest x-ray: image reviewed CT scan - chest: image reviewed Assessment and Plan Plan: Right-sided rib fractures, traumatic in nature involving 8, 9 and 10th rib closed fall. Limited right basilar pulmonary contusion Anterior wedge compression deformity level vertebral body with a 30% compression and multilevel degenerative disc disease Limited hemoptysis or contusion exacerbated by Coumadin toxicity as the patient 's INR was above 10 at time of admission COPD and chronic smoking Coumadin toxicity with an INR above 10 given vitamin K Coffee-ground emesis, likely secondary to some gastritis and upper GI bleed in the setting of Coumadin toxicity History of frequent falls, not a good candidate for anticoagulants COPD Chronic bronchitis/reactive to chronic smoking History of chronic atrial flutter maintained on metoprolol and anticoagulation with warfarin Chronic stage disease, likely stage III Stage II right ankle wound measuring 8.5 x 4 cm in size and surgical debridement has been done We'll with obesity Possible obstructive sleep apnea Diabetic peripheral neuropathy Chronic back pain Degenerative arthritis Hyperlipidemia History of chronic back pain and degenerative arthritis History of renal calculus measuring 7 mm in size in the right renal pelvis Plan Pulmonary status is stable Incentive spirometer Pain control and the patient is getting Dilaudid for pain control Not a candidate for long-term articulation due to his frequent falls and his poor medical follow-up. Note that he was Coumadin toxic at time of admission. I would suggest holding the warfarin for now. Give only patient Lovenox for DVT prophylaxis IV Protonix Monitor this patient for any signs of further GI bleeding General surgery consultation Ordered a surgery consultation Resume all medications Smoking cessation counseling Wound care and debridement has been done Antibiotics for medicine
[2022-02-01] MEDS: ENOXAPARIN 40 MG/0.4 ML SYRINGE SQ SCH (15:47)
[2022-02-01] MEDS ORDERED: METOPROLOL TARTRATE 50 MG TAB PO STA (16:12)
[2022-02-01] MEDS ORDERED: HALOPERIDOL LACTATE 5 MG/ML 1 ML VIAL IM STA (16:16)
--- NOTE | 2022-02-01 16:50 | P.PN ---
Progress Note - Text Progress Note Date: 02/01/22 This is a 61-year-old patient who follows with Dr. Sridhar Chan. Chronic stable medical conditions include diabetes, hypertension, hyperlipidemia, chronic low back problems, cigarette smoker. At the baseline uses a walker. Patient slipped in the bathroom falling on his buttock. Was not able to get up. By the EMS report he had fallen 24 hours prior to the picking him up. Patient been complaining of pain in the right rib cage in the lower back. X-ray was negative for fracture. Patient continued to have significant pain especially with deep breathing. Patient also had a congestive cough and wheezing. Some bloody sputum. Denies any fever and chills. Patient also complaining of urina ry retention and requesting a Shepard catheter. at the bedside. No fever no chills. Orthopedics consulted for the same. Patient normally has a bowel movement once a week. Patient also has a wound on the right foot lateral part of the ankles for about a week. Ischemic changes. From rubbing against a bedpost. Patient's INR in the ER was greater than 10. Was given vitamin K. 10 mg Patient bit with Coumadin toxicity, given vitamin K, acute COPD exacerbation, uncontrolled atrial flutter put on Lopressor, right chest wall pain. Computed tomography scan lumbar spine and chest was ordered. Large wound on the right lateral malleolus-ID and vascular consulted.. IV cefepime. February 01: Patient yesterday to see refused his computed tomography scan of the chest and lumbar spine. Done today. Right-sided rib fractures, pulmonary contusion confirm. L1 vertebral body 30% wedge compression fracture. Patient's girlfriend the bedside. It was discussed in detail with her. Patient wanting again and again to pull out his NG tube. Requests the to stay with the patient. Patient is also had the dark aspirate from the stomach for which she has NG tube. Surgery was consulted for the same. Also this morning right foot wound was debrided by Dr. Ibarra from vascular. Wound base was relatively clean. No undermining or tunneling. Active Medications Acetaminophen (Acetaminophen Tab 325 Mg Tab) 650 mg PO Q6HR PRN PRN Reason: Mild Pain or Fever > 100.5 Albuterol/Ipratropium (Ipratropium-Albuterol 3 Ml Neb) 3 ml INHALATION RT-QID [facility] Last Admin: 02/01/22 15:31 Dose: Not Given Budesonide (Budesonide 1 Mg/2 Ml Nebu) 1 mg INHALATION RT-BID [facility] Last Admin: 02/01/22 07:40 Dose: 1 mg Calcium Carbonate/Glycine (Calcium Carbonate 500 Mg Chewable) 1,000 mg PO Q4HR PRN PRN Reason: Dyspepsia Last Admin: 01/31/22 14:29 Dose: 1,000 mg Dextrose/Water (Dextrose 50% Syringe 50 Ml) 25 ml IVP PER PROTOCOL PRN; Protocol PRN Reason: Hypoglycemia Dextrose/Water (Dextrose 50% Syringe 50 Ml) 50 ml IVP PER PROTOCOL PRN; Protocol PRN Reason: Hypoglycemia Enoxaparin Sodium (Enoxaparin 40 Mg/0.4 Ml Syringe) 40 mg SQ DAILY [facility] Last Admin: 02/01/22 15:47 Dose: 40 mg Guaifenesin (Guaifenesin 600 Mg Tablet.Er) 600 mg PO QID [facility] Last Admin: 02/01/22 13:46 Dose: Not Given Hydromorphone HCl (Hydromorphone 0.5 Mg/0.5 Ml Syringe) 0.5 mg IVP Q3HR PRN PRN Reason: Pain Last Admin: 02/01/22 08:03 Dose: 0.5 mg Cefepime HCl 2 gm/ Sodium (Chloride) 100 mls @ 200 mls/hr IVPB Q12H [facility] Last Admin: 02/01/22 05:21 Dose: 200 mls/hr Lactated Ringer's (Lactated Ringers) 1,000 mls @ 100 mls/hr IV .Q10H [facility]; Protocol Last Admin: 02/01/22 14:22 Dose: Not Given Sodium Chloride (Saline 0.9%) 1,000 mls @ 100 mls/hr IV .Q10H [facility] Last Admin: 02/01/22 15:49 Dose: 100 mls/hr Diltiazem HCl 125 mg/ Sodium (Chloride) 125 mls @ 10 mls/hr IV .[id number] [facility] Last Admin: 02/01/22 05:17 Dose: 5 mg/hr, 5 mls/hr Vancomycin HCl 2,000 mg/ (Sodium Chloride) 500 mls @ 167 mls/hr IVPB Q24H [facility] Last Admin: 02/01/22 10:15 Dose: 167 mls/hr Insulin Aspart (Insulin Aspart (Novolog) 100 Unit/Ml Vial) 0 unit SQ AC-TID [facility]; Protocol Last Admin: 02/01/22 13:46 Dose: Not Given Insulin Detemir (Insulin Detemir (Levemir) 100 Unit/Ml Syr) 14 unit SQ HS [facility] Last Admin: 01/31/22 21:25 Dose: Not Given Lactulose (Lactulose 20 Gm/30 Ml Cup) 20 gm PO DAILY PRN PRN Reason: Constipation Melatonin (Melatonin 3 Mg Tablet) 3 mg PO HS PRN PRN Reason: Insomnia Metoprolol Tartrate (Metoprolol Tartrate 50 Mg Tab) 150 mg PO BID [facility] Miscellaneous Information ([place]com[place] 1 [place] [facility] [place] each MISCELLANE DIRECTED PRN; Protocol PRN Reason: Per Protocol Morphine Sulfate (Morphine Sulfate Er 15 Mg Tablet) 15 mg PO Q12HR [facility]; Protocol Last Admin: 02/01/22 10:14 Dose: 15 mg Naloxone HCl (Naloxone 0.4 Mg/Ml 1 Ml Vial) 0.2 mg IV Q2M PRN PRN Reason: Opioid Reversal Nicotine (Nicotine 21mg/24hr Patch) 1 patch TRANSDERM DAILY [facility] Last Admin: 02/01/22 11:02 Dose: Not Given Ondansetron HCl (Ondansetron 4 Mg/2 Ml Vial) 4 mg IVP Q8HR PRN PRN Reason: Nausea And Vomiting Last Admin: 02/01/22 05:25 Dose: 4 mg Pantoprazole Sodium (Pantoprazole 40 Mg/10 Ml Vial) 40 mg IVP BID [facility] Last Admin: 02/01/22 10:15 Dose: 40 mg Pregabalin (Pregabalin 100 Mg Cap) 100 mg PO BID [facility] Last Admin: 02/01/22 10:14 Dose: 100 mg Sodium Hypochlorite (Sodium Hypochlorite 0.25% 480 Ml Bot) 0 ml MISCELLANE DAILY [facility] Last Admin: 02/01/22 10:18 Dose: 480 ml Tamsulosin HCl (Tamsulosin 0.4 Mg Cap.Er.24h) 0.4 mg PO PC-BRKFST [facility] Last Admin: 02/01/22 10:14 Dose: 0.4 mg Past medical history to include: COPD, diabetes, hypertension, hyperlipidemia, back problems, TB, atrial fibrillation, on Coumadin Social history: Smokes a pack a day for close to 50 years. Stop doing alcohol some time ago. Lives with his significant other Sandra. Does use a walker. 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 Conjunctiva normal. HEENT: External appearance of nose and ears normal, oral cavity grossly normal. NECK: JVD not raised; masses not palpable. HEART: Heart sounds irregular; mild edema. LUNGS: Respiratory rate increased; decreased breath sound, prolonged expiration, coarse crackles. ABDOMEN: Soft, distended, nontender, liver spleen not palpable, no masses palpable. PSYCH: Restless, anxious does answer simple questions. DERMATOLOGICAL: Large wound around the lateral malleolus right foot Gangrene Changes MUSCULOSKELETAL:No Clubbing/cyanosis;muscles-grossly intact, increase in low back pain with movement NEUROLOGICAL: [Cranial nerves grossly intact; no facial asymmetry, having trouble lifting his legs. LYMPHATICS: No lymph nodes palpable in the axilla and neck INVESTIGATIONS, reviewed in the clinical context: Renal ultrasound: Shows bilateral normal cortical medullary thickness. February 01: WBC 17.1 hemoglobin 14.8 UA: Blood large, leukoesterase moderate WBC 28 nitrite negative Lumbar spine CT: Anterior wedge compression deformity of L1. Multiple level DJD. 7 mm calculus right renal pelvis. CT chest without contrast: Right lateral eighth through 10th rib fractures with associated gas trace hemothorax right lower lobe pulmonary contusion/atelectasis. Patchy) disease left upper lobe. WBC 25.8 hemoglobin 14.1 platelets 217 INR greater than 10 sodium 131 potassium 3.9. 24 creatinine 1.8 to EKG tracing personally reviewed by me-atrial flutter. Rate 132 Foot/Lumbar/sacral coccyx: Spondylitic changes. No fracture. Chest x-ray film personally reviewed by me-clinically. Possible hyperinflation Assessment and plan: -Coumadin toxicity. INR greater than 10.: Improved 10 mg vitamin K in the ER. Hemoptysis on presentation. - right lung contusion. Secondary to fall/hip fracture. hemoptysis Incentive spirometry -Acute COPD exacerbation, with chronic bronchitis component in a current smoker: Slow to respond DuoNeb. Nebulized Pulmicort. Mucinex. -Chronic nicotine dependence, cigarette smoker Nicotine patch 21 -Persistent atrial flutter, currently rate uncontrolled Lopressor 50 mg 3 times a day. 2-D echocardiogram pending. Cardiology consultation. Not a candidate for anticoagulation because of falls/pulmonary contusion hemoptysis. IV Cardizem drip. -Possible CK D with possible acute component. creatinine was 0.8 in April 2019. Renal ultrasound unremarkable. UA shows trace protein. IV fluids.. -Acute right-sided 8-10 ribs fracture secondary to fall K pad -Diabetes mellitus type 2, chronically on oral hypoglycemic Hold Glucotrol. Sliding scale insulin. Levemir 14 units daily at bedtime -Diabetic peripheral neuropathy Decreased dose of Lyrica in the setting of renal failure. 100 mg twice a day -Chronic low back pain: MS Contin 15 mg every 12, [place] 7.5 twice a day when necessary -Anxiety depression not otherwise specified Wellbutrin XL 100 mg twice a day -Hyperlipidemia Lipitor 40 mg daily at bedtime -Right ankle lateral, diabetic wound, stage II acute IV cefepime. ID consulted. DC vancomycin because of renal function. Patient has poor distal pulses. February 01 wound was debrided by Dr. Ibarra. Clean base. -Acute L1 30% wedge fracture secondary to fall LSO brace. Be followed by Dr. Damon Patient case pulling out NG tube. will be sitting with the patient. No adequate admission because of bleeding. IV cefepime. IV Cardizem drip because of uncontrolled atrial flutter local wound care. IV fluids. Discussed with the and patient.
[2022-02-01 16:54] LABS: Glucose,Whole Blood 134 mg/dL (70-110)
[2022-02-01] MEDS: METOPROLOL TARTRATE 50 MG TAB PO SCH ×2 (18:46→21:03)
[2022-02-01 19:01] LABS: ABG Base Excess 2.4 mmol/L; ABG HCO3 26 mmol/L (21-25); ABG Hematocrit 41 % (34.0-46.0); ABG Oxygen Saturation 92.2 % (94-97); ABG PCO2 36 mmHg (35-45); ABG PH 7.47 (7.35-7.45); ABG TCO2 27 mmol/L (19-24); Allen Test Performed? Yes
[2022-02-01 19:10] LABS: ABG PO2 59 mmHg (83-108)
[2022-02-01 20:59] LABS: Glucose,Whole Blood 141 mg/dL (70-110)
[2022-02-01] MEDS ORDERED: METOPROLOL TARTRATE 50 MG TAB PO SCH (21:00)
[2022-02-01] MEDS: INSULIN DETEMIR (LEVEMIR) 100 UNIT/ML SYR SQ SCH (21:03)
[2022-02-02] MEDS: LACTATED RINGERS 1,000 ML IV SCH ×2 (00:32→08:39)
[2022-02-02] MEDS: SODIUM CHLORIDE 0.9% 1,000 ML IV SCH ×3 (00:32→17:06)
[2022-02-02] MEDS: CEFEPIME 2 GM in SODIUM CHLORIDE 0.9% 100 ML IVPB SCH ×2 (04:29→17:05)
[2022-02-02] MEDS ORDERED: FUROSEMIDE 10 MG/ML 4 ML VIAL IV STA (05:49)
[2022-02-02 06:16] LABS: Glucose,Whole Blood 129 mg/dL (70-110)
[2022-02-02] MEDS: INSULIN ASPART (NovoLOG) 100 UNIT/ML VIAL SQ SCH ×3 (06:18→17:05)
--- NOTE | 2022-02-02 06:31 | XR ---
EXAMINATION TYPE: XR abdomen acute w cxr DATE OF EXAM: 02/02/2022 COMPARISON: Chest x-ray yesterday. Abdomen x-ray 01/31/2022 HISTORY: Short of breath TECHNIQUE: 4 views FINDINGS: Heart is normal. There is some mild increased interstitial density at the lung bases. No he art failure. There are no hilar masses. No pleural effusion. There are chest leads. There is no sign of free air. There is distended loops of gas-filled large bowel. No calcifications s een over the kidneys. IMPRESSION: Mild pulmonary fibrosis. No heart failure. Distended gas-filled bowel suggestive of large bowel ileus. No free air. Abdomen not significantly di fferent than last exam.
[2022-02-02 08:03] LABS: Basophils # (A) 0.1 k/uL (0-0.2); Basophils % (A) 0 %; Eosinophils # (A) 0.1 k/uL (0-0.7); Eosinophils % (A) 0 %; HCT 43.6 % (39.0-53.0); HGB 13.3 gm/dL (13.0-17.5); Hypochromasia Moderate; Lymphocytes # (A) 0.5 k/uL (1.0-4.8); Lymphocytes % (A) 3 %; MCH 27.5 pg (25.0-35.0); MCHC 30.6 g/dL (31.0-37.0); Mean Platelet Volume 8.7; Monocytes # (A) 0.8 k/uL (0-1.0); Monocytes % (A) 5 %; Neutrophils # (A) 15.8 k/uL (1.3-7.7); Neutrophils % (A) 90 %; Platelet Count 166 k/uL (150-450); RBC 4.84 m/uL (4.30-5.90); RDW 15.5 % (11.5-15.5); WBC 17.5 k/uL (3.8-10.6)
[2022-02-02 08:25] LABS: Calcium 7.8 mg/dL (8.4-10.2)
[2022-02-02] MEDS: IPRATROPIUM-ALBUTEROL 3 ML NEB INHALATION SCH ×4 (08:32→19:24)
[2022-02-02] MEDS: BUDESONIDE 1 MG/2 ML NEBU INHALATION SCH ×2 (08:32→19:24)
[2022-02-02] MEDS: DILTIAZEM 125 MG in SODIUM CHLORIDE 0.9% 100 ML IV SCH ×3 (08:39→17:06)
[2022-02-02] MEDS: guaiFENesin 600 MG TABLET.ER PO SCH ×4 (08:40→22:22)
[2022-02-02] MEDS: METOPROLOL TARTRATE 50 MG TAB PO SCH ×2 (08:40→09:03)
[2022-02-02] MEDS: MORPHINE SULFATE ER 15 MG TABLET PO SCH ×2 (08:40→22:21)
[2022-02-02] MEDS: VANCOMYCIN 2,000 MG in SODIUM CHLORIDE 0.9% 500 ML 500 ML IVPB SCH (08:41)
[2022-02-02] MEDS: ENOXAPARIN 40 MG/0.4 ML SYRINGE SQ SCH (08:41)
[2022-02-02] MEDS: HYDROmorphone 0.5 MG/0.5 ML SYRINGE IVP PRN ×2 (08:41→12:10)
[2022-02-02] MEDS: PREGABALIN 100 MG CAP PO SCH ×2 (08:41→22:22)
[2022-02-02] MEDS: NICOTINE 21MG/24HR PATCH TRANSDERM SCH (08:41)
[2022-02-02] MEDS: LACTULOSE 20 GM/30 ML CUP PO PRN (08:41)
[2022-02-02] MEDS: ONDANSETRON 4 MG/2 ML VIAL IVP PRN (08:41)
[2022-02-02] MEDS: PANTOPRAZOLE 40 MG/10 ML VIAL IVP SCH ×2 (08:41→22:26)
--- NOTE | 2022-02-02 08:43 | XR ---
EXAMINATION TYPE: XR chest 1V portable DATE OF EXAM: 02/02/2022 8:35 AM COMPARISON: Chest radiographs from 02/01/2022 TECHNIQUE: XR chest 1V portable Frontal view of the chest. CLINICAL INDICATION:Male, 61 years old with history of ng tube placement; FINDINGS: Lungs/Pleura: No pneumothorax. Trace right hemothorax. No focal consolidation. Pulmonary vascularity: Unremarkable. Heart/mediastinum: Cardiomediastinal silhouette is unremarkable. Musculoskeletal: Right-sided rib fractures redemonstrated. Lines/Tubes: Nasogastric tube with its distal tip just past the GE junction with sidehole at the GE junction. IMPRESSION: 1. Interval placement of NG tube with sidehole at the GE junction. Recommend advancement of 4 cm. 2. Trace right hemothorax. No pneumothorax. 3. Right-sided rib fractures redemonstrated.
[2022-02-02 08:52] LABS: Albumin 2.6 g/dL (3.5-5.0); Bilirubin, Conjugated 0.4 mg/dL (0.0-0.3); Bilirubin, Delta 0.9 mg/dL (0.0-0.2); Bilirubin,Unconjugated 0.7 mg/dL (0.0-1.1); Magnesium 1.6 mg/dL (1.6-2.3); Total Protein 5.7 g/dL (6.3-8.2)
[2022-02-02] MEDS: TAMSULOSIN 0.4 MG CAP.ER.24H PO SCH (08:58)
[2022-02-02] MEDS ORDERED: Potassium Replacement Protocol 1 EACH MISC MISCELLANE PRN (09:20)
--- NOTE | 2022-02-02 10:04 | P.PN ---
Subjective Progress Note Date: 02/02/22 Principal diagnosis: Upper GI bleed Patient had a nasogastric tube placed yesterday because of gastric distention seen on CAT scan chest. 900 mL of brownish non-coffee ground fluid was immediately obtained. Unfortunately the patient pulled out the catheter on multiple occasions yesterday. It was replaced by the nursing staff this morning. Only small amount of bile was currently in the nasogastric tube container. Patient remains confused. Abdominal x-rays show ileus pattern with colonic distention present. No obvious gastric distention at this time. Objective - Vital Signs Vital signs: Vital Signs Temp 97.7 F 02/02/22 07:40 Pulse 113 H 02/02/22 07:40 Resp 18 02/02/22 07:40 BP 149/81 02/02/22 07:40 Pulse Ox 98 02/02/22 07:40 FiO2 Intake & Output 02/01/22 02/02/22 02/02/22 18:59 06:59 18:59 Intake Total 58.583 66.417 93.833 Output Total 1200 1000 900 Balance -1141.417 -933.583 -806.167 Weight 136.078 kg Intake: Intake, IV Titration 58.583 66.417 93.833 Amount Diltiazem 125 mg In 58.583 66.417 93.833 Sodium Chloride 0.9% 100 ml @ 10 MG/HR 10 mls/hr IV .[id number] [facility] Rx#: [id number] Oral 0 0 Output: Gastric Drainage 900 Urine 300 1000 900 Uretheral (Shepard) 900 Other: Voiding Method Indwelling Catheter Indwelling Catheter - Exam Abdomen: Soft, nondistended, nontender - Labs CBC & Chem 7: 02/02/22 07:15 02/02/22 07:15 Labs: Abnormal Lab Results - Last 24 Hours (Table) 02/01/22 02/01/22 02/01/22 Range/Units 11:46 16:52 18:50 WBC (3.8-10.6) k/uL MCHC (31.0-37.0) g/dL Neutrophils # (1.3-7.7) k/uL Lymphocytes # (1.0-4.8) k/uL ABG pH 7.47 H (7.35-7.45) ABG pO2 59 L* (83-108) mmHg ABG HCO3 26 H (21-25) mmol/L ABG Total CO2 27 H (19-24) mmol/L ABG O2 Saturation 92.2 L (94-97) % Sodium (137-145) mmol/L Potassium (3.5-5.1) mmol/L BUN (9-20) mg/dL Creatinine (0.66-1.25) mg/dL Glucose (74-99) mg/dL POC Glucose (mg/dL) 143 H 134 H (70-110) mg/dL Calcium (8.4-10.2) mg/dL Total Bilirubin (0.2-1.3) mg/dL Conjugated Bilirubin (0.0-0.3) mg/dL Delta Bilirubin (0.0-0.2) mg/dL Alkaline Phosphatase (38-126) U/L Total Protein (6.3-8.2) g/dL Albumin (3.5-5.0) g/dL 02/01/22 02/02/22 02/02/22 Range/Units 20:58 06:14 07:15 WBC 17.5 H (3.8-10.6) k/uL MCHC 30.6 L (31.0-37.0) g/dL Neutrophils # 15.8 H (1.3-7.7) k/uL Lymphocytes # 0.5 L (1.0-4.8) k/uL ABG pH (7.35-7.45) ABG pO2 (83-108) mmHg ABG HCO3 (21-25) mmol/L ABG Total CO2 (19-24) mmol/L ABG O2 Saturation (94-97) % Sodium (137-145) mmol/L Potassium (3.5-5.1) mmol/L BUN (9-20) mg/dL Creatinine (0.66-1.25) mg/dL Glucose (74-99) mg/dL POC Glucose (mg/dL) 141 H 129 H (70-110) mg/dL Calcium (8.4-10.2) mg/dL Total Bilirubin (0.2-1.3) mg/dL Conjugated Bilirubin (0.0-0.3) mg/dL Delta Bilirubin (0.0-0.2) mg/dL Alkaline Phosphatase (38-126) U/L Total Protein (6.3-8.2) g/dL Albumin (3.5-5.0) g/dL 02/02/22 02/02/22 Range/Units 07:15 07:15 WBC (3.8-10.6) k/uL MCHC (31.0-37.0) g/dL Neutrophils # (1.3-7.7) k/uL Lymphocytes # (1.0-4.8) k/uL ABG pH (7.35-7.45) ABG pO2 (83-108) mmHg ABG HCO3 (21-25) mmol/L ABG Total CO2 (19-24) mmol/L ABG O2 Saturation (94-97) % Sodium 136 L (137-145) mmol/L Potassium 3.0 L (3.5-5.1) mmol/L BUN 29 H (9-20) mg/dL Creatinine 1.62 H (0.66-1.25) mg/dL Glucose 139 H (74-99) mg/dL POC Glucose (mg/dL) (70-110) mg/dL Calcium 7.8 L (8.4-10.2) mg/dL Total Bilirubin 2.0 H (0.2-1.3) mg/dL Conjugated Bilirubin 0.4 H (0.0-0.3) mg/dL Delta Bilirubin 0.9 H (0.0-0.2) mg/dL Alkaline Phosphatase 175 H (38-126) U/L Total Protein 5.7 L (6.3-8.2) g/dL Albumin 2.6 L (3.5-5.0) g/dL Microbiology - Last 24 Hours (Table) 01/31/22 21:47 Blood Culture Gram Stain - Preliminary Blood Blood Culture - Preliminary Staphylococcus aureus 01/31/22 18:55 Blood Culture Gram Stain - Preliminary Blood Blood Culture - Preliminary Staphylococcus aureus Staphylococcus epidermidis 01/31/22 06:45 Gram Stain - Final Ankle - Right Wound Culture - Final Strep agalactiae - (group b) Staphylococcus aureus 02/01/22 08:55 Blood Culture Gram Stain - Preliminary Blood 02/01/22 08:55 Blood Culture - Final Blood Assessment and Plan (1) Upper GI bleed Narrative/Plan: Patient without significant upper GI bleed. Patient with ileus likely on the basis of bacteremia and other comorbidities. Keep nasogastric tube today unless the patient continues to keep pulling this out. I did instruct the nursing staff to leave the gastric tube out if he pulls out again. Keep nothing by mouth for now. Will follow. Current Visit: Yes Status: Acute Code(s): K92.2 - GASTROINTESTINAL HEMORRHAGE, UNSPECIFIED SNOMED Code(s): 56826728
--- NOTE | 2022-02-02 10:26 | P.PN ---
Subjective Progress Note Date: 02/02/22 The patient is a 61-year-old male who is currently admitted to the hospital with cellulitis and necrotic wound on his right lower extremity. Cardiology was consulted for new onset of atrial flutter with RVR. In the last 24 hours the patient has become more confused. NG tube was placed, however it was removed by the patient multiple times. His heart rate has become elevated, however nursing staff does not believe that he has been receiving his full dose of oral beta blockers. GENERAL: Ill-appearing, well-nourished and in no acute distress. NECK: Supple without JVD or thyromegaly. LUNGS: Breath sounds are coarse to auscultation bilaterally. Respiration equal and unlabored. HEART: Irregular rate and rhythm without murmurs, rubs or gallops. S1 and S2 heard. EXTREMITIES: Normal range of motion, 2+ pitting edema. No clubbing or cyanosis. Wound noted on right lateral foot. VITALS: Blood pressure 149/81, pulse 113, respiratory rate 18, SpO2 98% on 2 L nasal cannula TELEMETRY: Atrial fibrillation with heart rates in the 1 teens to 120s LABS: WBC 17.5, hemoglobin 13.3, hematocrit 43.6, platelets 166, sodium 136, potassium 3.0, BUN 29, creatinine 1.6 to, AST 48, ALT 21, ALP 175 IMPRESSION: Atrial flutter with RVR, increase Cardizem drip Coumadin toxicity, INR now 1.1, start heparin drip Cellulitis, with necrotic wound Leukocytosis History of uncontrolled diabetes History of hypertension PLAN: Discontinue oral metoprolol as he is not tolerating oral medications. We'll resume once patient is tolerating oral medications without the use of NG tube. Maximize Cardizem drip. Further recommendations based on clinical course I am dictating on behalf of Dr Pramod Burks's history/physical and assessment/plan. Objective - Vital Signs Vital signs: Vital Signs Temp 97.7 F 02/02/22 07:40 Pulse 113 H 02/02/22 07:40 Resp 18 02/02/22 07:40 BP 149/81 02/02/22 07:40 Pulse Ox 98 02/02/22 07:40 FiO2 Intake & Output 02/01/22 02/02/22 02/02/22 18:59 06:59 18:59 Intake Total 58.583 66.417 93.833 Output Total 1200 1000 900 Balance -1141.417 -933.583 -806.167 Weight 136.078 kg Intake: Intake, IV Titration 58.583 66.417 93.833 Amount Diltiazem 125 mg In 58.583 66.417 93.833 Sodium Chloride 0.9% 100 ml @ 10 MG/HR 10 mls/hr IV .[id number] [facility] Rx#: [id number] Oral 0 0 Output: Gastric Drainage 900 Urine 300 1000 900 Uretheral (Shepard) 900 Other: Voiding Method Indwelling Catheter Indwelling Catheter - Labs CBC & Chem 7: 02/02/22 07:15 02/02/22 07:15 Labs: Abnormal Lab Results - Last 24 Hours (Table) 02/01/22 02/01/22 02/01/22 Range/Units 11:46 16:52 18:50 WBC (3.8-10.6) k/uL MCHC (31.0-37.0) g/dL Neutrophils # (1.3-7.7) k/uL Lymphocytes # (1.0-4.8) k/uL ABG pH 7.47 H (7.35-7.45) ABG pO2 59 L* (83-108) mmHg ABG HCO3 26 H (21-25) mmol/L ABG Total CO2 27 H (19-24) mmol/L ABG O2 Saturation 92.2 L (94-97) % Sodium (137-145) mmol/L Potassium (3.5-5.1) mmol/L BUN (9-20) mg/dL Creatinine (0.66-1.25) mg/dL Glucose (74-99) mg/dL POC Glucose (mg/dL) 143 H 134 H (70-110) mg/dL Calcium (8.4-10.2) mg/dL Total Bilirubin (0.2-1.3) mg/dL Conjugated Bilirubin (0.0-0.3) mg/dL Delta Bilirubin (0.0-0.2) mg/dL Alkaline Phosphatase (38-126) U/L Total Protein (6.3-8.2) g/dL Albumin (3.5-5.0) g/dL 02/01/22 02/02/22 02/02/22 Range/Units 20:58 06:14 07:15 WBC 17.5 H (3.8-10.6) k/uL MCHC 30.6 L (31.0-37.0) g/dL Neutrophils # 15.8 H (1.3-7.7) k/uL Lymphocytes # 0.5 L (1.0-4.8) k/uL ABG pH (7.35-7.45) ABG pO2 (83-108) mmHg ABG HCO3 (21-25) mmol/L ABG Total CO2 (19-24) mmol/L ABG O2 Saturation (94-97) % Sodium (137-145) mmol/L Potassium (3.5-5.1) mmol/L BUN (9-20) mg/dL Creatinine (0.66-1.25) mg/dL Glucose (74-99) mg/dL POC Glucose (mg/dL) 141 H 129 H (70-110) mg/dL Calcium (8.4-10.2) mg/dL Total Bilirubin (0.2-1.3) mg/dL Conjugated Bilirubin (0.0-0.3) mg/dL Delta Bilirubin (0.0-0.2) mg/dL Alkaline Phosphatase (38-126) U/L Total Protein (6.3-8.2) g/dL Albumin (3.5-5.0) g/dL 02/02/22 02/02/22 Range/Units 07:15 07:15 WBC (3.8-10.6) k/uL MCHC (31.0-37.0) g/dL Neutrophils # (1.3-7.7) k/uL Lymphocytes # (1.0-4.8) k/uL ABG pH (7.35-7.45) ABG pO2 (83-108) mmHg ABG HCO3 (21-25) mmol/L ABG Total CO2 (19-24) mmol/L ABG O2 Saturation (94-97) % Sodium 136 L (137-145) mmol/L Potassium 3.0 L (3.5-5.1) mmol/L BUN 29 H (9-20) mg/dL Creatinine 1.62 H (0.66-1.25) mg/dL Glucose 139 H (74-99) mg/dL POC Glucose (mg/dL) (70-110) mg/dL Calcium 7.8 L (8.4-10.2) mg/dL Total Bilirubin 2.0 H (0.2-1.3) mg/dL Conjugated Bilirubin 0.4 H (0.0-0.3) mg/dL Delta Bilirubin 0.9 H (0.0-0.2) mg/dL Alkaline Phosphatase 175 H (38-126) U/L Total Protein 5.7 L (6.3-8.2) g/dL Albumin 2.6 L (3.5-5.0) g/dL Microbiology - Last 24 Hours (Table) 01/31/22 21:47 Blood Culture Gram Stain - Preliminary Blood Blood Culture - Preliminary Staphylococcus aureus 01/31/22 18:55 Blood Culture Gram Stain - Preliminary Blood Blood Culture - Preliminary Staphylococcus aureus Staphylococcus epidermidis 01/31/22 06:45 Gram Stain - Final Ankle - Right Wound Culture - Final Strep agalactiae - (group b) Staphylococcus aureus 02/01/22 08:55 Blood Culture Gram Stain - Preliminary Blood 02/01/22 08:55 Blood Culture - Final Blood
--- NOTE | 2022-02-02 10:46 | P.PN ---
Subjective Progress Note Date: 02/02/22 This is a extremely debilitated 61-year-old male patient who is known to monitor milligrams and comorbidities and I was asked to evaluate this patient because of a fall and limited hemoptysis. The patient is known to have a combination of issues including diabetes mellitus and diabetic peripheral neuropathy and the patient has had previous episodes of falls and he has issues with chronic atrial flutter maintained on long-term anticoagulation with warfarin. He is morbidly obese. He has hypertension and hyperlipidemia as comorbid conditions along with chronic kidney disease. He is morbidly obese. He has history of COPD and is a chronic smoker. He comes in to the hospital after he had a fall at home. He was the bathroom and he slept and he landed on his left chest. Here in the hospital, the patient was found to be Coumadin toxic and his INR was above 10. He did have some limited hemoptysis and coffee-ground emesis without any melanotic stools. No abdominal pain. He was noted to have a large ulcer over the right ankle/malleolus area which is a chronic wound. Immediately the patien t was given vitamin K. This computed tomography scan of the chest shows some right lateral eighth through 10th rib fractures with trace amount of right-sided pleural effusion and right basilar atelectasis related to underlying pulmonary contusion. No evidence of any pneumothorax. Some limited patchy airspace disease in the left upper lobe probably inflammatory in the same time the patient had dilated pulmonary arteries indicating possibility of pulmonary hypertension and a fluid and gas-filled distended stomach. I noted the patient has not had a CAT scan of the brain and a CAT scan was done that showed no acute intracranial process. There was a remote left occipital lobe injury along with some nonspecific white matter changes secondary to chronic microangiopathy. This computed tomography scan of the lumbar spine showed acute anterior wedge compression deformity of L1 vertebral body with a 30% loss in height along with multilevel degenerative disc changes and a 7 mm In the right pelvis. Patient was already seen by general surgery and orthopedic surgery. Lumbar spine x-ray that was done on 2021 showed no acute fracture. The patient was also seen by vascular surgery for a right lateral foot wound and this is a stage II wound 8.5 x 4 cm in size. Debridement was done by vascular surgery. On 02/02/2022, the patient is confused which is unchanged compared to yesterday. CAT scan of the brain was done yesterday showed no acute abnormalities. He did not have any further episodes of hemoptysis. His coagulopathy was reversed. I noted some coffee-ground emesis yesterday and subsequently developed some abdominal distention and ileus was suspected. NG tube was inserted. On multiple occasions, he pulled out his NG tube. This morning, NG tube is in place and the total amount of output is in order of 25 mL since morning and he does have some old retained coffee-ground material in the canister since yesterday in the order of 200 mL. Abdomen is soft. He is laying comfortably in bed. He is off anticoagulation for now. He is an IV fluids and currently receiving 0.9 at a rate of 100 mL an hour. He is also on a Cardizem drip for atrial flutter with RVR. His heart rates currently is in order of 130 beats per minute. He is still tachycardic. The Cardizem rate accordingly was increased and is being adjusted and titrated by cardiology.The white cell count is at 17.7 hemoglobin 15.3 and a platelet count of 166, the patient also has a sodium level of 136, potassium is being replaced is currently down to 3 and a BUN is at 29 with a creatinine of 1.62. Serum bicarbs at 23. Correlation profile is normalized. The patient only on Lovenox for DVT prophylaxis. Objective - Vital Signs Vital signs: Vital Signs Temp 97.7 F 02/02/22 07:40 Pulse 113 H 02/02/22 07:40 Resp 18 02/02/22 07:40 BP 149/81 02/02/22 07:40 Pulse Ox 98 02/02/22 07:40 FiO2 Intake & Output 02/01/22 02/02/22 02/02/22 18:59 06:59 18:59 Intake Total 58.583 66.417 93.833 Output Total 1200 1000 900 Balance -1141.417 -933.583 -806.167 Weight 136.078 kg Intake: Intake, IV Titration 58.583 66.417 93.833 Amount Diltiazem 125 mg In 58.583 66.417 93.833 Sodium Chloride 0.9% 100 ml @ 10 MG/HR 10 mls/hr IV .[id number] [facility] Rx#: [id number] Oral 0 0 Output: Gastric Drainage 900 Urine 300 1000 900 Uretheral (Shepard) 900 Other: Voiding Method Indwelling Catheter Indwelling Catheter - Exam GENERAL: BMI 39.6, laying in bed, uncomfortable according to the right of the chest. The patient is currently on room air oxygen. Moving all 4 extremities without any limitation. My confused, he is up-to-date is about 2 by nasal cannula. NG tube is also in place. Head exam was generally normal. There was no scleral icterus or corneal arcus. Mucous membranes were moist. EYES: Pupils equal. Conjunctiva normal. HEENT: External appearance of nose and ears normal, oral cavity grossly normal. NECK: JVD not raised; masses not palpable. HEART: Heart sounds irregular; mild edema. LUNGS: Respiratory rate increased; decreased breath sound, prolonged expiration, coarse crackles. ABDOMEN: Soft, distended, nontender, liver spleen not palpable, no masses palpable. PSYCH: Alert and oriented x3; mood and affect anxiousl. DERMATOLOGICAL: Large wound around the lateral malleolus right foot Gangrene Changes MUSCULOSKELETAL:No Clubbing/cyanosis;muscles-grossly intact, increase in low back pain with movement NEUROLOGICAL: [Cranial nerves grossly intact; no facial asymmetry, having trouble lifting his legs. LYMPHATICS: No lymph nodes palpable in the axilla and neck - Labs CBC & Chem 7: 02/02/22 07:15 02/02/22 07:15 Labs: Abnormal Lab Results - Last 24 Hours (Table) 02/01/22 02/01/22 02/01/22 Range/Units 11:46 16:52 18:50 WBC (3.8-10.6) k/uL MCHC (31.0-37.0) g/dL Neutrophils # (1.3-7.7) k/uL Lymphocytes # (1.0-4.8) k/uL ABG pH 7.47 H (7.35-7.45) ABG pO2 59 L* (83-108) mmHg ABG HCO3 26 H (21-25) mmol/L ABG Total CO2 27 H (19-24) mmol/L ABG O2 Saturation 92.2 L (94-97) % Sodium (137-145) mmol/L Potassium (3.5-5.1) mmol/L BUN (9-20) mg/dL Creatinine (0.66-1.25) mg/dL Glucose (74-99) mg/dL POC Glucose (mg/dL) 143 H 134 H (70-110) mg/dL Calcium (8.4-10.2) mg/dL Total Bilirubin (0.2-1.3) mg/dL Conjugated Bilirubin (0.0-0.3) mg/dL Delta Bilirubin (0.0-0.2) mg/dL Alkaline Phosphatase (38-126) U/L Total Protein (6.3-8.2) g/dL Albumin (3.5-5.0) g/dL 02/01/22 02/02/22 02/02/22 Range/Units 20:58 06:14 07:15 WBC 17.5 H (3.8-10.6) k/uL MCHC 30.6 L (31.0-37.0) g/dL Neutrophils # 15.8 H (1.3-7.7) k/uL Lymphocytes # 0.5 L (1.0-4.8) k/uL ABG pH (7.35-7.45) ABG pO2 (83-108) mmHg ABG HCO3 (21-25) mmol/L ABG Total CO2 (19-24) mmol/L ABG O2 Saturation (94-97) % Sodium (137-145) mmol/L Potassium (3.5-5.1) mmol/L BUN (9-20) mg/dL Creatinine (0.66-1.25) mg/dL Glucose (74-99) mg/dL POC Glucose (mg/dL) 141 H 129 H (70-110) mg/dL Calcium (8.4-10.2) mg/dL Total Bilirubin (0.2-1.3) mg/dL Conjugated Bilirubin (0.0-0.3) mg/dL Delta Bilirubin (0.0-0.2) mg/dL Alkaline Phosphatase (38-126) U/L Total Protein (6.3-8.2) g/dL Albumin (3.5-5.0) g/dL 02/02/22 02/02/22 Range/Units 07:15 07:15 WBC (3.8-10.6) k/uL MCHC (31.0-37.0) g/dL Neutrophils # (1.3-7.7) k/uL Lymphocytes # (1.0-4.8) k/uL ABG pH (7.35-7.45) ABG pO2 (83-108) mmHg ABG HCO3 (21-25) mmol/L ABG Total CO2 (19-24) mmol/L ABG O2 Saturation (94-97) % Sodium 136 L (137-145) mmol/L Potassium 3.0 L (3.5-5.1) mmol/L BUN 29 H (9-20) mg/dL Creatinine 1.62 H (0.66-1.25) mg/dL Glucose 139 H (74-99) mg/dL POC Glucose (mg/dL) (70-110) mg/dL Calcium 7.8 L (8.4-10.2) mg/dL Total Bilirubin 2.0 H (0.2-1.3) mg/dL Conjugated Bilirubin 0.4 H (0.0-0.3) mg/dL Delta Bilirubin 0.9 H (0.0-0.2) mg/dL Alkaline Phosphatase 175 H (38-126) U/L Total Protein 5.7 L (6.3-8.2) g/dL Albumin 2.6 L (3.5-5.0) g/dL Microbiology - Last 24 Hours (Table) 01/31/22 21:47 Blood Culture Gram Stain - Preliminary Blood Blood Culture - Preliminary Staphylococcus aureus 01/31/22 18:55 Blood Culture Gram Stain - Preliminary Blood Blood Culture - Preliminary Staphylococcus aureus Staphylococcus epidermidis 01/31/22 06:45 Gram Stain - Final Ankle - Right Wound Culture - Final Strep agalactiae - (group b) Staphylococcus aureus 02/01/22 08:55 Blood Culture Gram Stain - Preliminary Blood 02/01/22 08:55 Blood Culture - Final Blood Assessment and Plan Plan: Right-sided rib fractures, traumatic in nature involving 8, 9 and 10th rib closed fall. Limited right basilar pulmonary contusion Anterior wedge compression deformity level vertebral body with a 30% compression and multilevel degenerative disc disease Limited hemoptysis or contusion exacerbated by Coumadin toxicity as the patient's INR was above 10 at time of admission COPD and chronic smoking Coumadin toxicity with an INR above 10 given vitamin K, recovered Coffee-ground emesis, likely secondary to some gastritis and upper GI bleed in the setting of Coumadin toxicity Ileus post NG tube insertion. No active GI bleed and output from the NG tube is minimal at this point and abdomen is not as distended. History of frequent falls, not a good candidate for anticoagulants+ delerium, change in the mental status COPD Chronic bronchitis/reactive to chronic smoking History of chronic atrial flutter maintained on metoprolol and anticoagulation with warfarin Chronic stage disease, likely stage III Stage II right ankle wound measuring 8.5 x 4 cm in size and surgical debridement has been done obesity Possible obstructive sleep apnea Diabetic peripheral neuropathy Chronic back pain Degenerative arthritis Hyperlipidemia History of chronic back pain and degenerative arthritis History of renal calculus measuring 7 mm in size in the right renal pelvis Plan Pulmonary status is stable Incentive spirometer Monitor mental status Patient is currently in restraints Provide adequate rate control with Dilaudid and the patient is taking also Toradol Incentive spirometer Keep the NG tube in place nothing by mouth General surgery evaluation No signs of GI bleeding and renal function is also improved compared to yesterday The Brain Is Negative per CT We'll follow
[2022-02-02] MEDS: POTASSIUM BICARBONATE/CIT AC 20 MEQ TABLET.EFF NG-TUBE SCH ×2 (11:00→12:11)
[2022-02-02 11:56] LABS: Glucose,Whole Blood 137 mg/dL (70-110)
[2022-02-02] MEDS: SODIUM HYPOCHLORITE 0.25% 480 ML BOT MISCELLANE SCH ×2 (12:40→17:05)
--- NOTE | 2022-02-02 13:57 | P.PN ---
Subjective Progress Note Date: 02/02/22 This patient is a 61-year-old male past medical history of diabetes, hypertension, hyperlipidemia, COPD, cigarette smoking, atrial fibrillation on Coumadin that presented to [facility] emergency department yesterday with complaints of low back pain following a fall at home. The patient states he was ambulating in his bathroom and lost his footing. He was unable to get off the floor due to his pain, therefore EMS was called. Upon arrival to the emergency department, x-rays were taken of the lumbar spine and sacrum/coccyx, which revealed no fracture. Patient was found to be in A. fib with RVR in the emergency department. His INR was also found to be 10. Patient was also found to have multiple open wounds with purulent discharge along the right lateral ankle and foot. Patient was admitted under the care of internal medicine with a consult placed to orthopedic surgery for back pain. Patient is examined bedside this morning. His fiance is bedside. He states he is experiencing significant lower back pain. He does have a history of chronic back pain, which is managed by Dr. Chan. Computed tomography scan of the lumbar spine was ordered yesterday by Dr. Mcdaniel, although the patient states he initially refused. Although per nursing, this was obtained this morning. Patient is experiencing numbness in his feet, although patient states this is chronic and he has neuropathy secondary to his diabetes. There are no additional complaints at this time. 02/02/22: Patient is examined bedside today. He is very confused today, he is A&O x0 per nursing. Orthopedics is following for L1 compression fracture. LSO brace was ordered yesterday, patient has not yet obtained this. Objective - Vital Signs Vital signs: Vital Signs Temp 97.2 F L 02/02/22 12:12 Pulse 102 H 02/02/22 12:12 Resp 18 02/02/22 12:12 BP 145/80 02/02/22 12:12 Pulse Ox 98 02/02/22 12:12 FiO2 Intake & Output 02/01/22 02/02/22 02/02/22 18:59 06:59 18:59 Intake Total 58.583 66.417 113.833 Output Total 1200 1000 900 Balance -1141.417 -933.583 -786.167 Weight 136.078 kg Intake: IV 20 Invasive Line 1 10 Invasive Line 3 10 Intake, IV Titration 58.583 66.417 93.833 Amount Diltiazem 125 mg In 58.583 66.417 93.833 Sodium Chloride 0.9% 100 ml @ 10 MG/HR 10 mls/hr IV .[id number] [facility] Rx#: [id number] Oral 0 0 Output: Gastric Drainage 900 Urine 300 1000 900 Uretheral (Shepard) 900 Other: Voiding Method Indwelling Catheter Indwelling Catheter Indwelling Catheter - Exam Patient is very confused and refuses examination at this time. - Labs CBC & Chem 7: 02/02/22 07:15 02/02/22 07:15 Labs: Abnormal Lab Results - Last 24 Hours (Table) 02/01/22 02/01/22 02/01/22 Range/Units 16:52 18:50 20:58 WBC (3.8-10.6) k/uL MCHC (31.0-37.0) g/dL Neutrophils # (1.3-7.7) k/uL Lymphocytes # (1.0-4.8) k/uL ABG pH 7.47 H (7.35-7.45) ABG pO2 59 L* (83-108) mmHg ABG HCO3 26 H (21-25) mmol/L ABG Total CO2 27 H (19-24) mmol/L ABG O2 Saturation 92.2 L (94-97) % Sodium (137-145) mmol/L Potassium (3.5-5.1) mmol/L BUN (9-20) mg/dL Creatinine (0.66-1.25) mg/dL Glucose (74-99) mg/dL POC Glucose (mg/dL) 134 H 141 H (70-110) mg/dL Calcium (8.4-10.2) mg/dL Total Bilirubin (0.2-1.3) mg/dL Conjugated Bilirubin (0.0-0.3) mg/dL Delta Bilirubin (0.0-0.2) mg/dL Alkaline Phosphatase (38-126) U/L Total Protein (6.3-8.2) g/dL Albumin (3.5-5.0) g/dL 02/02/22 02/02/22 02/02/22 Range/Units 06:14 07:15 07:15 WBC 17.5 H (3.8-10.6) k/uL MCHC 30.6 L (31.0-37.0) g/dL Neutrophils # 15.8 H (1.3-7.7) k/uL Lymphocytes # 0.5 L (1.0-4.8) k/uL ABG pH (7.35-7.45) ABG pO2 (83-108) mmHg ABG HCO3 (21-25) mmol/L ABG Total CO2 (19-24) mmol/L ABG O2 Saturation (94-97) % Sodium 136 L (137-145) mmol/L Potassium 3.0 L (3.5-5.1) mmol/L BUN 29 H (9-20) mg/dL Creatinine 1.62 H (0.66-1.25) mg/dL Glucose 139 H (74-99) mg/dL POC Glucose (mg/dL) 129 H (70-110) mg/dL Calcium 7.8 L (8.4-10.2) mg/dL Total Bilirubin (0.2-1.3) mg/dL Conjugated Bilirubin (0.0-0.3) mg/dL Delta Bilirubin (0.0-0.2) mg/dL Alkaline Phosphatase (38-126) U/L Total Protein (6.3-8.2) g/dL Albumin (3.5-5.0) g/dL 02/02/22 02/02/22 Range/Units 07:15 11:54 WBC (3.8-10.6) k/uL MCHC (31.0-37.0) g/dL Neutrophils # (1.3-7.7) k/uL Lymphocytes # (1.0-4.8) k/uL ABG pH (7.35-7.45) ABG pO2 (83-108) mmHg ABG HCO3 (21-25) mmol/L ABG Total CO2 (19-24) mmol/L ABG O2 Saturation (94-97) % Sodium (137-145) mmol/L Potassium (3.5-5.1) mmol/L BUN (9-20) mg/dL Creatinine (0.66-1.25) mg/dL Glucose (74-99) mg/dL POC Glucose (mg/dL) 137 H (70-110) mg/dL Calcium (8.4-10.2) mg/dL Total Bilirubin 2.0 H (0.2-1.3) mg/dL Conjugated Bilirubin 0.4 H (0.0-0.3) mg/dL Delta Bilirubin 0.9 H (0.0-0.2) mg/dL Alkaline Phosphatase 175 H (38-126) U/L Total Protein 5.7 L (6.3-8.2) g/dL Albumin 2.6 L (3.5-5.0) g/dL Microbiology - Last 24 Hours (Table) 01/31/22 06:45 Anaerobic Culture - Final Ankle - Right 01/31/22 21:47 Blood Culture Gram Stain - Preliminary Blood Blood Culture - Preliminary Staphylococcus aureus 01/31/22 18:55 Blood Culture Gram Stain - Preliminary Blood Blood Culture - Preliminary Staphylococcus aureus Staphylococcus epidermidis 01/31/22 06:45 Gram Stain - Final Ankle - Right Wound Culture - Final Strep agalactiae - (group b) Staphylococcus aureus 02/01/22 08:55 Blood Culture Gram Stain - Preliminary Blood 02/01/22 08:55 Blood Culture - Final Blood Assessment and Plan Assessment: Low back pain Acute L1 compression fracture Plan: - LSO brace has been ordered. Patient should wear brace when out of bed. Patient should remain on bed rest until brace is obtained. - Pain management as needed. Patient takes Morphine ER and [address] as home med. Will defer pain medication to admitting team. - We will follow patient peripherally as he remains inpatient. Patient should follow-up in the office with Dr. Arana as an outpatient.
--- NOTE | 2022-02-02 15:08 | P.PN ---
Progress Note - Text Progress Note Date: 02/02/22 This is a 61-year-old patient who follows with Dr. Sridhar Chan. Chronic stable medical conditions include diabetes, hypertension, hyperlipidemia, chronic low back problems, cigarette smoker. At the baseline uses a walker. Patient slipped in the bathroom falling on his buttock. Was not able to get up. By the EMS report he had fallen 24 hours prior to the picking him up. Patient been complaining of pain in the right rib cage in the lower back. X-ray was negative for fracture. Patient continued to have significant pain especially with deep breathing. Patient also had a congestive cough and wheezing. Some bloody sputum. Denies any fever and chills. Patient also complaining of urina ry retention and requesting a Shepard catheter. at the bedside. No fever no chills. Orthopedics consulted for the same. Patient normally has a bowel movement once a week. Patient also has a wound on the right foot lateral part of the ankles for about a week. Ischemic changes. From rubbing against a bedpost. Patient's INR in the ER was greater than 10. Was given vitamin K. 10 mg Patient bit with Coumadin toxicity, given vitamin K, acute COPD exacerbation, uncontrolled atrial flutter put on Lopressor, right chest wall pain. Computed tomography scan lumbar spine and chest was ordered. Large wound on the right lateral malleolus-ID and vascular consulted.. IV cefepime. February 01: Patient yesterday to see refused his computed tomography scan of the chest and lumbar spine. Done today. Right-sided rib fractures, pulmonary contusion confirm. L1 vertebral body 30% wedge compression fracture. Patient's girlfriend the bedside. It was discussed in detail with her. Patient wanting again and again to pull out his NG tube. Requests the to stay with the patient. Patient is also had the dark aspirate from the stomach for which she has NG tube. Surgery was consulted for the same. Also this morning right foot wound was debrided by Dr. Ibarra from vascular. Wound base was relatively clean. No undermining or tunneling. February 02: Delirious. NG tube to suction. Has been in restraints because point NG TUBE several times. Mumbling to himself. Dressing over the right ankle. Not in distress. Ileus. Chest x-ray showing right lower lobe/atelectasis. Active Medications Acetaminophen (Acetaminophen Tab 325 Mg Tab) 650 mg PO Q6HR PRN PRN Reason: Mild Pain or Fever > 100.5 Albuterol/Ipratropium (Ipratropium-Albuterol 3 Ml Neb) 3 ml INHALATION RT-QID PENDING SALE TO [facility] Last Admin: 02/02/22 11:38 Dose: 3 ml Budesonide (Budesonide 1 Mg/2 Ml Nebu) 1 mg INHALATION RT-BID PENDING SALE TO [facility] Last Admin: 02/02/22 08:32 Dose: Not Given Calcium Carbonate/Glycine (Calcium Carbonate 500 Mg Chewable) 1,000 mg PO Q4HR PRN PRN Reason: Dyspepsia Last Admin: 01/31/22 14:29 Dose: 1,000 mg Dextrose/Water (Dextrose 50% Syringe 50 Ml) 25 ml IVP PER PROTOCOL PRN; Protocol PRN Reason: Hypoglycemia Dextrose/Water (Dextrose 50% Syringe 50 Ml) 50 ml IVP PER PROTOCOL PRN; Protocol PRN Reason: Hypoglycemia Enoxaparin Sodium (Enoxaparin 40 Mg/0.4 Ml Syringe) 40 mg SQ DAILY PENDING SALE TO [facility] Last Admin: 02/02/22 08:41 Dose: 40 mg Guaifenesin (Guaifenesin 600 Mg Tablet.Er) 600 mg PO QID PENDING SALE TO [facility] Last Admin: 02/02/22 12:11 Dose: 600 mg Hydromorphone HCl (Hydromorphone 0.5 Mg/0.5 Ml Syringe) 0.5 mg IVP Q3HR PRN PRN Reason: Pain Last Admin: 02/02/22 12:10 Dose: 0.5 mg Cefepime HCl 2 gm/ Sodium (Chloride) 100 mls @ 200 mls/hr IVPB Q12H PENDING SALE TO [facility] Last Admin: 02/02/22 04:29 Dose: 200 mls/hr Diltiazem HCl 125 mg/ Sodium (Chloride) 125 mls @ 15 mls/hr IV .Q8H20M PENDING SALE TO [facility] Last Admin: 02/02/22 11:47 Dose: Not Given Vancomycin HCl 2,000 mg/ (Sodium Chloride) 500 mls @ 167 mls/hr IVPB Q24H PENDING SALE TO [facility] Last Admin: 02/02/22 08:41 Dose: 167 mls/hr Sodium Chloride (Saline 0.9%) 1,000 mls @ 100 mls/hr IV .Q10H PENDING SALE TO [facility] Last Admin: 02/02/22 12:10 Dose: 100 mls/hr Insulin Aspart (Insulin Aspart (Novolog) 100 Unit/Ml Vial) 0 unit SQ AC-TID PENDING SALE TO [facility]; Protocol Last Admin: 02/02/22 12:07 Dose: Not Given Insulin Detemir (Insulin Detemir (Levemir) 100 Unit/Ml Syr) 14 unit SQ HS PENDING SALE TO [facility] Last Admin: 02/01/22 21:03 Dose: Not Given Lactulose (Lactulose 20 Gm/30 Ml Cup) 20 gm PO DAILY PRN PRN Reason: Constipation Last Admin: 02/02/22 08:41 Dose: 20 gm Melatonin (Melatonin 3 Mg Tablet) 3 mg PO HS PRN PRN Reason: Insomnia Miscellaneous Information (Vancomycin Iv Per Pharmacy 1 Each [facility] [place] 1 each MISCELLANE DIRECTED PRN; Protocol PRN Reason: Per Protocol Miscellaneous Information (Potassium Replacement Protocol 1 Each [facility] [place] 1 each MISCELLANE DAILY PRN; Protocol PRN Reason: Per Protocol Morphine Sulfate (Morphine Sulfate Er 15 Mg Tablet) 15 mg PO Q12HR PENDING SALE TO [facility]; Protocol Last Admin: 02/02/22 08:40 Dose: 15 mg Naloxone HCl (Naloxone 0.4 Mg/Ml 1 Ml Vial) 0.2 mg IV Q2M PRN PRN Reason: Opioid Reversal Nicotine (Nicotine 21mg/24hr Patch) 1 patch TRANSDERM DAILY PENDING SALE TO [facility] Last Admin: 02/02/22 08:41 Dose: 1 patch Ondansetron HCl (Ondansetron 4 Mg/2 Ml Vial) 4 mg IVP Q8HR PRN PRN Reason: Nausea And Vomiting Last Admin: 02/02/22 08:41 Dose: 4 mg Pantoprazole Sodium (Pantoprazole 40 Mg/10 Ml Vial) 40 mg IVP BID PENDING SALE TO [facility] Last Admin: 02/02/22 08:41 Dose: 40 mg Pregabalin (Pregabalin 100 Mg Cap) 100 mg PO BID PENDING SALE TO [facility] Last Admin: 02/02/22 08:41 Dose: 100 mg Sodium Hypochlorite (Sodium Hypochlorite 0.25% 480 Ml Bot) 0 ml MISCELLANE DAILY PENDING SALE TO [facility] Tamsulosin HCl (Tamsulosin 0.4 Mg Cap.Er.24h) 0.4 mg PO PC-BRKFST PENDING SALE TO [facility] Last Admin: 02/02/22 08:58 Dose: 0.4 mg Past medical history to include: COPD, diabetes, hypertension, hyperlipidemia, back problems, TB, atrial fibrillation, on Coumadin Social history: Smokes a pack a day for close to 50 years. Stop doing alcohol some time ago. Lives with his significant other Sandra. Does use a walker. 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 Conjunctiva normal. HEENT: External appearance of nose and ears normal, oral cavity dry, NG tube NECK: JVD not raised; masses not palpable. HEART: Heart sounds irregular; mild edema. LUNGS: Respiratory rate increased; decreased breath sound, prolonged expiration, coarse crackles. ABDOMEN: Soft, distended, nontender, liver spleen not palpable, no masses palpable. PSYCH: Unable to assess, patient delirious. DERMATOLOGICAL: Wound on right ankle lateral malleolus. Under dressing MUSCULOSKELETAL:No Clubbing/cyanosis;muscles-grossly intact, increase in low back pain with movement INVESTIGATIONS, reviewed in the clinical context: February 02: CBC 7.5 hemoglobin 13.3 platelets 166 potassium 3 view and 29 creatinine 1.6 to Renal ultrasound: Shows bilateral normal cortical medullary thickness. February 01: WBC 17.1 hemoglobin 14.8 UA: Blood large, leukoesterase moderate WBC 28 nitrite negative Lumbar spine CT: Anterior wedge compression deformity of L1. Multiple level DJD. 7 mm calculus right renal pelvis. CT chest without contrast: Right lateral eighth through 10th rib fractures with associated gas trace hemothorax right lower lobe pulmonary contusion/atelectasis. Patchy) disease left upper lobe. WBC 25.8 hemoglobin 14.1 platelets 217 INR greater than 10 sodium 131 potassium 3.9. 24 creatinine 1.8 to EKG tracing personally reviewed by me-atrial flutter. Rate 132 Foot/Lumbar/sacral coccyx: Spondylitic changes. No fracture. Chest x-ray film personally reviewed by me-clinically. Possible hyperinflation Assessment and plan: -Coumadin toxicity. INR greater than 10.: Improved 10 mg vitamin K in the ER. Hemoptysis on presentation. On further anticoagulation. - right lung contusion. Secondary to fall/hip fracture. hemoptysis Incentive spirometry -Acute COPD exacerbation, with chronic bronchitis component in a current smoker: Slow to respond DuoNeb. Nebulized Pulmicort. Mucinex. -Chronic nicotine dependence, cigarette smoker Nicotine patch 21 -Persistent atrial flutter, Lopressor 50 mg 3 times a day. 2-D echocardiogram pending. Cardiology consultation. Not a candidate for anticoagulation because of falls/pulmonary contusion hemoptysis. IV Cardizem drip. -Possible CK D with possible acute component. creatinine was 0.8 in April 2019. Renal ultrasound unremarkable. UA shows trace protein. IV fluids.. -Acute right-sided 8-10 ribs fracture secondary to fall K pad -Diabetes mellitus type 2, chronically on oral hypoglycemic Hold Glucotrol. Sliding scale insulin. Levemir 14 units daily at bedtime -Diabetic peripheral neuropathy Decreased dose of Lyrica in the setting of renal failure. 100 mg twice a day -Chronic low back pain: MS Contin 15 mg every 12, [place] 7.5 twice a day when necessary -Anxiety depression not otherwise specified Wellbutrin XL 100 mg twice a day -Hyperlipidemia Lipitor 40 mg daily at bedtime -Right ankle lateral, diabetic wound, stage II acute IV cefepime. ID consulted. Patient has poor distal pulses. February 01 wound was debrided by Dr. Ibarra. Clean base. -Acute L1 30% wedge fracture secondary to fall LSO brace. Be followed by Dr. Damon -Acute delirium multifactorial. Not improving IV cefepime. IV Cardizem drip. IV fluids. Dressing to the right ankle. NG tube to suction. Restraints Furtick red patient pulling out NG tube. Follow with multiple consultants.
[2022-02-02 16:58] LABS: Glucose,Whole Blood 136 mg/dL (70-110)
[2022-02-02] MEDS: INSULIN DETEMIR (LEVEMIR) 100 UNIT/ML SYR SQ SCH (17:10)
--- NOTE | 2022-02-02 19:30 | CT ---
EXAMINATION TYPE: CT brain wo con DATE OF EXAM: 02/02/2022 COMPARISON: Yesterday HISTORY: r/o bleed, AMS, POST FALL CT DLP: 1255.4 mGycm Automated exposure control for dose reduction was used. Images obtained of the brain without contrast. There is cerebral cortical atrophy. There is no mass effect or midline shift. No sign of intracranial hemorrhage. The calvarium is intact. There is 3 cm area of cortical hypodensity medial left occipita l lobe. 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 Cerebral atrophy.
[2022-02-02 19:57] LABS: Glucose,Whole Blood 131 mg/dL (70-110)
[2022-02-02 20:04] LABS: ABG Base Excess -1.2 mmol/L; ABG HCO3 23 mmol/L (21-25); ABG Hematocrit 40 % (34.0-46.0); ABG PCO2 36 mmHg (35-45); ABG PH 7.42 (7.35-7.45); ABG PO2 72 mmHg (83-108); ABG TCO2 24 mmol/L (19-24); Allen Test Performed? Yes
--- NOTE | 2022-02-02 20:35 | XR ---
EXAMINATION TYPE: XR chest 1V portable DATE OF EXAM: 02/02/2022 COMPARISON: Today HISTORY: Respiratory distress TECHNIQUE: Single view FINDINGS: Heart is normal. Lungs are clear of infiltrate. No heart failure. There is some tubing over the upper thoracic esophagus and the tip is not well seen. IMPRESSION: No active cardiopulmonary disease. No adverse change.
[2022-02-02] MEDS ORDERED: levETIRAcetam IV 1,000 MG in SALINE 1 100ML.BAG IVPB STA (20:57)
[2022-02-02 20:58] LABS: Basophils % (A) 0 %; Eosinophils % (A) 0 %; HCT 42.5 % (39.0-53.0); HGB 12.9 gm/dL (13.0-17.5); Hypochromasia Moderate; Lymphocytes # (A) 0.6 k/uL (1.0-4.8); Lymphocytes % (A) 3 %; MCH 27.3 pg (25.0-35.0); MCHC 30.4 g/dL (31.0-37.0); Mean Platelet Volume 9.2; Monocytes # (A) 0.8 k/uL (0-1.0); Monocytes % (A) 5 %; Neutrophils # (A) 15.9 k/uL (1.3-7.7); Neutrophils % (A) 90 %; Platelet Count 192 k/uL (150-450); RBC 4.72 m/uL (4.30-5.90); RDW 15.6 % (11.5-15.5); WBC 17.6 k/uL (3.8-10.6)
[2022-02-02] MEDS ORDERED: SODIUM HYPOCHLORITE 0.25% 480 ML BOT MISCELLANE SCH (21:00)
[2022-02-02 21:09] LABS: Calcium 7.7 mg/dL (8.4-10.2); Magnesium 1.6 mg/dL (1.6-2.3); Potassium 3.5 mmol/L (3.5-5.1)
[2022-02-02 21:17] LABS: INR 1.2 (<1.2); Prothrombin Time 12.7 sec (9.0-12.0)
[2022-02-02 21:18] LABS: Lactic Acid, Venous 1.3 mmol/L (0.7-2.0)
[2022-02-02 21:42] LABS: Glucose,Whole Blood 156 mg/dL (70-110)
[2022-02-03] MEDS: DILTIAZEM 125 MG in SODIUM CHLORIDE 0.9% 100 ML IV SCH ×3 (00:57→20:08)
[2022-02-03 01:53] LABS: Glucose,Whole Blood 172 mg/dL (70-110)
[2022-02-03] MEDS: HYDROmorphone 0.5 MG/0.5 ML SYRINGE IVP PRN (03:43)
[2022-02-03] MEDS: SODIUM CHLORIDE 0.9% 1,000 ML IV SCH ×2 (05:54→19:39)
[2022-02-03 06:20] LABS: Albumin 2.5 g/dL (3.5-5.0); Calcium 7.7 mg/dL (8.4-10.2); Magnesium 1.6 mg/dL (1.6-2.3); Phosphorus 2.9 mg/dL (2.5-4.5); Potassium 3.2 mmol/L (3.5-5.1); Total Bilirubin 1.7 mg/dL (0.2-1.3); Total Protein 5.7 g/dL (6.3-8.2)
[2022-02-03 06:36] LABS: Basophils % (A) 0 %; Eosinophils % (A) 0 %; HCT 40.8 % (39.0-53.0); HGB 12.5 gm/dL (13.0-17.5); Hypochromasia Moderate; Lymphocytes # (A) 0.7 k/uL (1.0-4.8); Lymphocytes % (A) 4 %; MCH 27.3 pg (25.0-35.0); MCHC 30.6 g/dL (31.0-37.0); MCV 89.5 fL (80.0-100.0); Mean Platelet Volume 9.5; Monocytes % (A) 5 %; Neutrophils # (A) 16.5 k/uL (1.3-7.7); Neutrophils % (A) 89 %; Platelet Count 196 k/uL (150-450); RBC 4.56 m/uL (4.30-5.90); RDW 15.6 % (11.5-15.5); WBC 18.5 k/uL (3.8-10.6)
[2022-02-03 06:52] LABS: Glucose,Whole Blood 114 mg/dL (70-110)
[2022-02-03] MEDS: INSULIN ASPART (NovoLOG) 100 UNIT/ML VIAL SQ SCH ×3 (06:58→19:40)
[2022-02-03] MEDS: BUDESONIDE 1 MG/2 ML NEBU INHALATION SCH ×2 (07:50→20:40)
[2022-02-03] MEDS: IPRATROPIUM-ALBUTEROL 3 ML NEB INHALATION SCH ×4 (07:50→20:40)
--- NOTE | 2022-02-03 08:04 | P.PN ---
Subjective Progress Note Date: 02/01/22 Principal diagnosis: Right foot infected pressure ulcer and bacteremia Patient is a 61-year-old male presented to the hospital for evaluation of fall patient also noticed to have a wound on the right lateral foot with some necrotic edges which has been debridement by vascular surgery on 01/31/2022. On today's evaluation that is 02/01/2022, the patient is afebrile patient did have significant mental status changes and also have an episode of hematemesis for which a injury has been placed patient was not able to provide any history, no diarrhea or changes reported by the nursing staff Objective - Vital Signs Vital signs: Vital Signs Temp 97.9 F 02/01/22 16:00 Pulse 106 H 02/01/22 16:00 Resp 18 02/01/22 16:00 BP 115/67 02/01/22 16:00 Pulse Ox 94 L 02/01/22 16:00 FiO2 Intake & Output 01/31/22 02/01/22 02/01/22 18:59 06:59 18:59 Intake Total 118 891 0 Output Total 1400 900 300 Balance -1282 -9 -300 Weight 136.078 kg 136.078 kg Intake: Oral 118 0 Blood Product 891 Ffp 24 Pher Acda Cnt1 222 Unit [id number] Ffp 24 Pher Acda Cnt1 223 Unit [id number] Output: Urine 1400 800 300 Emesis 100 Other: Voiding Method Indwelling Catheter Indwelling Catheter - Exam GENERAL DESCRIPTION: Middle-age male lying in bed in no distress RESPIRATORY SYSTEM: Unlabored breathing , decreased breath sounds at bases HEART: S1 S2 regular rate and rhythm , ABDOMEN: Soft , no tenderness EXTREMITIES: Right foot wound is currently dressed no drainage wound dressing - Labs CBC & Chem 7: 02/03/22 05:31 02/03/22 05:31 Labs: Abnormal Lab Results - Last 24 Hours (Table) 01/31/22 01/31/22 01/31/22 Range/Units 04:15 17:43 18:45 WBC 21.0 H (3.8-10.6) k/uL MCHC 30.9 L (31.0-37.0) g/dL RDW (11.5-15.5) % Neutrophils # (1.3-7.7) k/uL Lymphocytes # (1.0-4.8) k/uL POC Glucose (mg/dL) (70-110) mg/dL Hemoglobin A1c 8.1 H (0.0-6.0) % Urine Protein 1+ H (Negative) Urine Glucose (UA) Trace H (Negative) Urine Ketones Trace H (Negative) Urine Blood Large H (Negative) Ur Leukocyte Esterase Moderate H (Negative) Urine RBC >182 H (0-5) /hpf Urine WBC 28 H (0-5) /hpf Urine Bacteria Rare H (None) /hpf Urine Mucus Rare H (None) /hpf Urine Yeast (Budding) Few H (None) /hpf 01/31/22 02/01/22 02/01/22 Range/Units 20:27 06:46 07:07 WBC 17.1 H (3.8-10.6) k/uL MCHC (31.0-37.0) g/dL RDW 15.6 H (11.5-15.5) % Neutrophils # 15.7 H (1.3-7.7) k/uL Lymphocytes # 0.4 L (1.0-4.8) k/uL POC Glucose (mg/dL) 163 H 135 H (70-110) mg/dL Hemoglobin A1c (0.0-6.0) % Urine Protein (Negative) Urine Glucose (UA) (Negative) Urine Ketones (Negative) Urine Blood (Negative) Ur Leukocyte Esterase (Negative) Urine RBC (0-5) /hpf Urine WBC (0-5) /hpf Urine Bacteria (None) /hpf Urine Mucus (None) /hpf Urine Yeast (Budding) (None) /hpf 02/01/22 02/01/22 Range/Units 11:46 16:52 WBC (3.8-10.6) k/uL MCHC (31.0-37.0) g/dL RDW (11.5-15.5) % Neutrophils # (1.3-7.7) k/uL Lymphocytes # (1.0-4.8) k/uL POC Glucose (mg/dL) 143 H 134 H (70-110) mg/dL Hemoglobin A1c (0.0-6.0) % Urine Protein (Negative) Urine Glucose (UA) (Negative) Urine Ketones (Negative) Urine Blood (Negative) Ur Leukocyte Esterase (Negative) Urine RBC (0-5) /hpf Urine WBC (0-5) /hpf Urine Bacteria (None) /hpf Urine Mucus (None) /hpf Urine Yeast (Budding) (None) /hpf Microbiology - Last 24 Hours (Table) 01/31/22 18:55 Blood Culture Gram Stain - Preliminary Blood Blood Culture - Preliminary Staphylococcus aureus Staphylococcus epidermidis 01/31/22 06:45 Gram Stain - Preliminary Ankle - Right Wound Culture - Preliminary Strep agalactiae - (group b) Presumptive Staph aureus 01/31/22 21:47 Blood Culture Gram Stain - Preliminary Blood 01/31/22 10:05 Blood Culture - Final Blood 01/31/22 07:00 Blood Culture - Final Blood 01/31/22 06:45 Anaerobic Culture - Preliminary Ankle - Right Assessment and Plan (1) Cellulitis Current Visit: Yes Status: Acute Code(s): L03.90 - CELLULITIS, UNSPECIFIED SNOMED Code(s): 334003972 Plan: 1patient with right foot unstageable pressure ulcer with surrounding necrotic area and cellulitis x-rays do not show any bony changes likely from gram- positive skin caleb and less likely gram-negative pathogen, patient is status post vascular surgery evaluation and debridement and deep culture. 2patient to continue with the cefepime and vancomycin while waiting for cultures to finalize. 3positive blood culture with gram-positive cocci covered with vancomycin blood cultures repeated to document clearance of bacteremia
--- NOTE | 2022-02-03 08:08 | P.PN ---
Subjective Progress Note Date: 02/02/22 Principal diagnosis: Right foot infected pressure ulcer and bacteremia Patient is a 61-year-old male presented to the hospital for evaluation of fall patient also noticed to have a wound on the right lateral foot with some necrotic edges which has been debridement by vascular surgery on 01/31/2022. On today's evaluation that is 02/02/2022, the patient is afebrile patient continue to have significant mental status changes and is unable to provide any history, no vomiting or diarrhea or changes reported by the nursing staff Objective - Vital Signs Vital signs: Vital Signs Temp 98.5 F 02/02/22 12:50 Pulse 123 H 02/02/22 12:50 Resp 40 H 02/02/22 12:50 BP 165/73 02/02/22 12:50 Pulse Ox 95 02/02/22 12:50 FiO2 Intake & Output 02/02/22 02/02/22 06:59 12:59 Intake Total 66.417 254.583 Output Total 1000 2650 Balance -933.583 -2395.417 Intake: IV 40 Invasive Line 1 20 Invasive Line 3 20 Intake, IV Titration 66.417 214.583 Amount Diltiazem 125 mg In 66.417 214.583 Sodium Chloride 0.9% 100 ml @ 15 MG/HR 15 mls/hr IV .Q8H20M [facility] Rx#: [id number] Oral 0 Output: Gastric Drainage Urine 1000 2650 Uretheral (Shepard) 900 Other: Voiding Method Indwelling Catheter Indwelling Catheter - Exam GENERAL DESCRIPTION: Middle-age male lying in bed in no distress RESPIRATORY SYSTEM: Unlabored breathing , decreased breath sounds at bases HEART: S1 S2 regular rate and rhythm , ABDOMEN: Soft , no tenderness EXTREMITIES: Right foot wound is currently dressed no drainage wound dressing - Labs CBC & Chem 7: 02/03/22 05:31 02/03/22 05:31 Labs: Abnormal Lab Results - Last 24 Hours (Table) 02/02/22 02/02/22 02/02/22 Range/Units 06:14 07:15 07:15 WBC 17.5 H (3.8-10.6) k/uL Hgb (13.0-17.5) gm/dL MCHC 30.6 L (31.0-37.0) g/dL RDW (11.5-15.5) % Neutrophils # 15.8 H (1.3-7.7) k/uL Lymphocytes # 0.5 L (1.0-4.8) k/uL PT (9.0-12.0) sec INR (<1.2) ABG pO2 (83-108) mmHg Hemoglobin (13.0-17.5) gm/dL Sodium 136 L (137-145) mmol/L Potassium 3.0 L (3.5-5.1) mmol/L Carbon Dioxide (22-30) mmol/L BUN 29 H (9-20) mg/dL Creatinine 1.62 H (0.66-1.25) mg/dL Glucose 139 H (74-99) mg/dL POC Glucose (mg/dL) 129 H (70-110) mg/dL Calcium 7.8 L (8.4-10.2) mg/dL Total Bilirubin (0.2-1.3) mg/dL Conjugated Bilirubin (0.0-0.3) mg/dL Delta Bilirubin (0.0-0.2) mg/dL Alkaline Phosphatase (38-126) U/L Total Protein (6.3-8.2) g/dL Albumin (3.5-5.0) g/dL 02/02/22 02/02/22 02/02/22 Range/Units 07:15 11:54 16:52 WBC (3.8-10.6) k/uL Hgb (13.0-17.5) gm/dL MCHC (31.0-37.0) g/dL RDW (11.5-15.5) % Neutrophils # (1.3-7.7) k/uL Lymphocytes # (1.0-4.8) k/uL PT (9.0-12.0) sec INR (<1.2) ABG pO2 (83-108) mmHg Hemoglobin (13.0-17.5) gm/dL Sodium (137-145) mmol/L Potassium (3.5-5.1) mmol/L Carbon Dioxide (22-30) mmol/L BUN (9-20) mg/dL Creatinine (0.66-1.25) mg/dL Glucose (74-99) mg/dL POC Glucose (mg/dL) 137 H 136 H (70-110) mg/dL Calcium (8.4-10.2) mg/dL Total Bilirubin 2.0 H (0.2-1.3) mg/dL Conjugated Bilirubin 0.4 H (0.0-0.3) mg/dL Delta Bilirubin 0.9 H (0.0-0.2) mg/dL Alkaline Phosphatase 175 H (38-126) U/L Total Protein 5.7 L (6.3-8.2) g/dL Albumin 2.6 L (3.5-5.0) g/dL 02/02/22 02/02/22 02/02/22 Range/Units 19:55 20:01 20:21 WBC 17.6 H (3.8-10.6) k/uL Hgb 12.9 L (13.0-17.5) gm/dL MCHC 30.4 L (31.0-37.0) g/dL RDW 15.6 H (11.5-15.5) % Neutrophils # 15.9 H (1.3-7.7) k/uL Lymphocytes # 0.6 L (1.0-4.8) k/uL PT (9.0-12.0) sec INR (<1.2) ABG pO2 72 L (83-108) mmHg Hemoglobin 12.9 L (13.0-17.5) gm/dL Sodium (137-145) mmol/L Potassium (3.5-5.1) mmol/L Carbon Dioxide (22-30) mmol/L BUN (9-20) mg/dL Creatinine (0.66-1.25) mg/dL Glucose (74-99) mg/dL POC Glucose (mg/dL) 131 H (70-110) mg/dL Calcium (8.4-10.2) mg/dL Total Bilirubin (0.2-1.3) mg/dL Conjugated Bilirubin (0.0-0.3) mg/dL Delta Bilirubin (0.0-0.2) mg/dL Alkaline Phosphatase (38-126) U/L Total Protein (6.3-8.2) g/dL Albumin (3.5-5.0) g/dL 02/02/22 02/02/22 02/02/22 Range/Units 20:21 20:21 21:40 WBC (3.8-10.6) k/uL Hgb (13.0-17.5) gm/dL MCHC (31.0-37.0) g/dL RDW (11.5-15.5) % Neutrophils # (1.3-7.7) k/uL Lymphocytes # (1.0-4.8) k/uL PT 12.7 H (9.0-12.0) sec INR 1.2 H (<1.2) ABG pO2 (83-108) mmHg Hemoglobin (13.0-17.5) gm/dL Sodium 136 L (137-145) mmol/L Potassium (3.5-5.1) mmol/L Carbon Dioxide 21 L (22-30) mmol/L BUN 33 H (9-20) mg/dL Creatinine 1.62 H (0.66-1.25) mg/dL Glucose 155 H (74-99) mg/dL POC Glucose (mg/dL) 156 H (70-110) mg/dL Calcium 7.7 L (8.4-10.2) mg/dL Total Bilirubin (0.2-1.3) mg/dL Conjugated Bilirubin (0.0-0.3) mg/dL Delta Bilirubin (0.0-0.2) mg/dL Alkaline Phosphatase (38-126) U/L Total Protein (6.3-8.2) g/dL Albumin (3.5-5.0) g/dL Microbiology - Last 24 Hours (Table) 01/31/22 06:45 Anaerobic Culture - Final Ankle - Right 01/31/22 21:47 Blood Culture Gram Stain - Preliminary Blood Blood Culture - Preliminary Staphylococcus aureus 01/31/22 18:55 Blood Culture Gram Stain - Preliminary Blood Blood Culture - Preliminary Staphylococcus aureus Staphylococcus epidermidis 01/31/22 06:45 Gram Stain - Final Ankle - Right Wound Culture - Final Strep agalactiae - (group b) Staphylococcus aureus 02/01/22 08:55 Blood Culture Gram Stain - Preliminary Blood 02/01/22 08:55 Blood Culture - Final Blood Assessment and Plan (1) Cellulitis Current Visit: Yes Status: Acute Code(s): L03.90 - CELLULITIS, UNSPECIFIED SNOMED Code(s): 351861355 Plan: 1patient with right foot unstageable pressure ulcer with surrounding necrotic area and cellulitis x-rays do not show any bony changes likely from gram- positive skin caleb and less likely gram-negative pathogen, patient is status post vascular surgery evaluation and debridement and deep culture. 2-patient with MSSA bacteremia source is likely right foot infected pressure u lcer 2 we will discontinue cefepime and vancomycin and start the patient on cefazolin 2 g every 8 hours and monitor clinical course closely Time with Patient: Less than 30
--- NOTE | 2022-02-03 08:16 | XR ---
EXAMINATION TYPE: XR chest 1V DATE OF EXAM: 02/03/2022 COMPARISON: Chest x-ray 02/02/2022 HISTORY: History of respiratory distress, possible pneumonia TECHNIQUE: Single frontal view of the chest is obtained. FINDINGS: Patient is rotated. NG tube is present in the distal tip not included on the exam. No evid ent pneumothorax. Lung volumes are low. Patchy basilar density is present, there is partial obscured appearance of the right hemidiaphragm. Cardiac mediastinal silhouette is likely stable. There are ove rlying artifacts. IMPRESSION: Expiratory rotated exam. Probable basilar atelectasis, difficult to exclude effusion, pn eumonia, follow-up suggested.
[2022-02-03] MEDS: guaiFENesin 600 MG TABLET.ER PO SCH ×4 (08:34→19:42)
[2022-02-03] MEDS: PREGABALIN 100 MG CAP PO SCH ×2 (08:34→19:42)
[2022-02-03] MEDS: MORPHINE SULFATE ER 15 MG TABLET PO SCH ×2 (08:34→19:41)
[2022-02-03] MEDS: POTASSIUM BICARBONATE/CIT AC 20 MEQ TABLET.EFF NG-TUBE SCH ×2 (08:34→08:37)
[2022-02-03] MEDS: NICOTINE 21MG/24HR PATCH TRANSDERM SCH (08:34)
[2022-02-03] MEDS: PANTOPRAZOLE 40 MG/10 ML VIAL IVP SCH ×2 (08:35→20:07)
[2022-02-03] MEDS: ENOXAPARIN 40 MG/0.4 ML SYRINGE SQ SCH (08:35)
[2022-02-03] MEDS: levETIRAcetam IV 500 MG in SODIUM CHLORIDE 0.9% 100 ML IVPB SCH ×2 (08:35→20:08)
[2022-02-03] MEDS: TAMSULOSIN 0.4 MG CAP.ER.24H PO SCH ×2 (08:35→08:49)
--- NOTE | 2022-02-03 08:54 | P.PN ---
Progress Note - Text Progress Note Date: 02/03/22 Orthopedic spine: History of present illness: Patient is a 61-year-old male who is seen in the ICU for further evaluation for his known L1 compression fracture deformity. He presented to [facility] on 01/31/2022 for further evaluation after sustaining a fall. A prescription has been written and signed to obtain an LSO brace for the patient for his known L1 compression fracture deformity. This brace has not yet been delivered and fitted appropriately. Patient is on Coumadin for atrial fibrillation. He has been treated for Coumadin toxicity during his admission. He was in [facility] in the emergency department. Patient does have a significant medical history which includes diabetes, hypertension, hyperlipidemia, COPD, and cigarette smoking. He is being seen and examined by medicine for his multiple local diagnoses. During presentation to the emergency department patient was also found to have multiple open wounds with purulent discharge along the right lateral ankle and foot. He is being treated by Dr. Burr in vascular surgery. He did undergo excisional debridement of his right lateral foot wound. Patient does have a history of chronic low back pain which is managed by Dr. Chan. Patient does take MS Contin in the outpatient setting for pain control. Currently patient is unresponsive in the ICU. Family is not present at the bedside. Physical Exam: Patient is sedated and unresponsive in the ICU NG tube in place Assessment: Acute L1 compression fracture deformity status post fall Chronic low back pain Currently unresponsive in the ICU Right lateral foot wound status post excisional debridement Diabetes mellitus Hypertension Hyperlipidemia COPD History of cigarette smoking Atrial fibrillation on anticoagulation Treated for Coumadin toxicity during this admission Plan: 1. Patient is known to have sustained a fall with an acute L1 compression fracture deformity. A brace has been written and signed and provided to obtain an LSO brace. This has been discussed with nursing. Hopefully this brace is delivered today. Currently, patient is unresponsive in the ICU. It was discussed with nursing patient does not need to have this brace intact while lying in bed in the ICU. Once the patient becomes more awake, alert, and oriented and is able to increase his mobility and ambulation, we did discuss patient should wear this brace while sitting upright at greater than 45, during increase activities, during ambulation. Brace does not have to or while lying in bed or while bathing. Based on the patient's current medical status, we would not plan for any acute surgical intervention or invasive treatment in regard to his lumbar spine. We would plan to exhaust all conservative treatment options. He should continue with treatment and evaluation by multiple other medical providers during his admission. Following delivery and fitting of this brace, patient is clear for discharge from an orthopedic spine standpoint. Following discharge, patient may follow-up with Laz Worrell PA-C or Dr. Monty Arana at [facility] in approximately 2-3 weeks for further evaluation. 2. Patient will continue to be seen and examined multiple other medical providers for his other significant medical diagnoses
[2022-02-03] MEDS: SODIUM HYPOCHLORITE 0.25% 480 ML BOT MISCELLANE SCH (09:17)
--- NOTE | 2022-02-03 10:36 | P.PN ---
Subjective Progress Note Date: 02/03/22 Principal diagnosis: Pressure ulcer Patient was seen and examined as a follow-up. He was transferred to the ICU and has become nonresponsive. Patient had excisional debridement of pressure ulcer of the right lateral foot on 02/01/2022. Dressing changes have been done with every 12 hours Dakin's solution, followed by every 12 hour saline wet-to-dry dressing changes. Patient has been afebrile. Objective - Vital Signs Vital signs: Vital Signs Temp 98.3 F 02/03/22 08:00 Pulse 103 H 02/03/22 10:00 Resp 23 02/03/22 10:00 BP 107/62 02/03/22 10:00 Pulse Ox 90 L 02/03/22 10:00 FiO2 Intake & Output 02/02/22 02/03/22 02/03/22 18:59 06:59 18:59 Intake Total 254.583 387.75 200 Output Total 2650 2729 150 Balance -2395.417 -2341.25 50 Weight 136.07 kg Intake: IV 40 220 200 Carrier w/ Cartizem 200 Invasive Line 1 20 Invasive Line 3 20 20 Sodium Chloride 0.9% 1, 200 000 ml @ 100 mls/hr IV . Q10H CRUZ Rx#:[id number] Intake, IV Titration 214.583 167.75 Amount Diltiazem 125 mg In 214.583 117.75 Sodium Chloride 0.9% 100 ml @ 15 MG/HR 15 mls/hr IV .Q8H20M CRUZ Rx#: [id number] ceFAZolin 2 gm In Sodium 50 Chloride 0.9% 50 ml @ 100 mls/hr IVPB Q8HR CRUZ Rx# :[id number] Oral 0 Output: Gastric Drainage 220 Urine 2650 2509 150 Uretheral (Shepard) 900 1800 Other: Voiding Method Indwelling Catheter Indwelling Catheter Indwelling Catheter # Bowel Movements 0 - Exam General appearance: The patient is awake, non-orientated, and nonresponsive. HET: Head is normocephalic and atraumatic. Neck: Supple without lymphadenopathy. Trachea midline. Extremities: Femoral popliteal pulses are noted on the right. Nonpalpable DP or PT pulses. Pressure ulcer on the lateral aspect of the foot measuring 8.5 cm x 4 cm down to fascia with necrotic eschar on edges. Neurological: No focal deficits. Strength and sensation are grossly intact. - Labs CBC & Chem 7: 02/03/22 05:31 02/03/22 05:31 Labs: Abnormal Lab Results - Last 24 Hours (Table) 02/02/22 02/02/22 02/02/22 Range/Units 11:54 16:52 19:55 WBC (3.8-10.6) k/uL Hgb (13.0-17.5) gm/dL MCHC (31.0-37.0) g/dL RDW (11.5-15.5) % Neutrophils # (1.3-7.7) k/uL Lymphocytes # (1.0-4.8) k/uL PT (9.0-12.0) sec INR (<1.2) ABG pO2 (83-108) mmHg Hemoglobin (13.0-17.5) gm/dL Sodium (137-145) mmol/L Potassium (3.5-5.1) mmol/L Carbon Dioxide (22-30) mmol/L BUN (9-20) mg/dL Creatinine (0.66-1.25) mg/dL Glucose (74-99) mg/dL POC Glucose (mg/dL) 137 H 136 H 131 H (70-110) mg/dL Calcium (8.4-10.2) mg/dL Total Bilirubin (0.2-1.3) mg/dL Alkaline Phosphatase (38-126) U/L Total Protein (6.3-8.2) g/dL Albumin (3.5-5.0) g/dL 02/02/22 02/02/22 02/02/22 Range/Units 20:01 20:21 20:21 WBC 17.6 H (3.8-10.6) k/uL Hgb 12.9 L (13.0-17.5) gm/dL MCHC 30.4 L (31.0-37.0) g/dL RDW 15.6 H (11.5-15.5) % Neutrophils # 15.9 H (1.3-7.7) k/uL Lymphocytes # 0.6 L (1.0-4.8) k/uL PT 12.7 H (9.0-12.0) sec INR 1.2 H (<1.2) ABG pO2 72 L (83-108) mmHg Hemoglobin 12.9 L (13.0-17.5) gm/dL Sodium (137-145) mmol/L Potassium (3.5-5.1) mmol/L Carbon Dioxide (22-30) mmol/L BUN (9-20) mg/dL Creatinine (0.66-1.25) mg/dL Glucose (74-99) mg/dL POC Glucose (mg/dL) (70-110) mg/dL Calcium (8.4-10.2) mg/dL Total Bilirubin (0.2-1.3) mg/dL Alkaline Phosphatase (38-126) U/L Total Protein (6.3-8.2) g/dL Albumin (3.5-5.0) g/dL 02/02/22 02/02/22 02/03/22 Range/Units 20:21 21:40 01:52 WBC (3.8-10.6) k/uL Hgb (13.0-17.5) gm/dL MCHC (31.0-37.0) g/dL RDW (11.5-15.5) % Neutrophils # (1.3-7.7) k/uL Lymphocytes # (1.0-4.8) k/uL PT (9.0-12.0) sec INR (<1.2) ABG pO2 (83-108) mmHg Hemoglobin (13.0-17.5) gm/dL Sodium 136 L (137-145) mmol/L Potassium (3.5-5.1) mmol/L Carbon Dioxide 21 L (22-30) mmol/L BUN 33 H (9-20) mg/dL Creatinine 1.62 H (0.66-1.25) mg/dL Glucose 155 H (74-99) mg/dL POC Glucose (mg/dL) 156 H 172 H (70-110) mg/dL Calcium 7.7 L (8.4-10.2) mg/dL Total Bilirubin (0.2-1.3) mg/dL Alkaline Phosphatase (38-126) U/L Total Protein (6.3-8.2) g/dL Albumin (3.5-5.0) g/dL 02/03/22 02/03/22 02/03/22 Range/Units 05:31 05:31 06:50 WBC 18.5 H (3.8-10.6) k/uL Hgb 12.5 L (13.0-17.5) gm/dL MCHC 30.6 L (31.0-37.0) g/dL RDW 15.6 H (11.5-15.5) % Neutrophils # 16.5 H (1.3-7.7) k/uL Lymphocytes # 0.7 L (1.0-4.8) k/uL PT (9.0-12.0) sec INR (<1.2) ABG pO2 (83-108) mmHg Hemoglobin (13.0-17.5) gm/dL Sodium (137-145) mmol/L Potassium 3.2 L (3.5-5.1) mmol/L Carbon Dioxide (22-30) mmol/L BUN 35 H (9-20) mg/dL Creatinine 1.77 H (0.66-1.25) mg/dL Glucose 142 H (74-99) mg/dL POC Glucose (mg/dL) 114 H (70-110) mg/dL Calcium 7.7 L (8.4-10.2) mg/dL Total Bilirubin 1.7 H (0.2-1.3) mg/dL Alkaline Phosphatase 157 H (38-126) U/L Total Protein 5.7 L (6.3-8.2) g/dL Albumin 2.5 L (3.5-5.0) g/dL Microbiology - Last 24 Hours (Table) 01/31/22 06:45 Anaerobic Culture - Preliminary Ankle - Right Lynda albicans 01/31/22 21:47 Blood Culture Gram Stain - Preliminary Blood Blood Culture - Preliminary Staphylococcus aureus 01/31/22 18:55 Blood Culture Gram Stain - Preliminary Blood Blood Culture - Preliminary Staphylococcus aureus Staphylococcus epidermidis 01/31/22 06:45 Gram Stain - Final Ankle - Right Wound Culture - Final Strep agalactiae - (group b) Staphylococcus aureus 02/01/22 08:55 Blood Culture Gram Stain - Preliminary Blood Assessment and Plan Assessment: 1. Necrotic wound/pressure ulcer of lateral aspect of right foot 2. Diabetes mellitus 3. Cardiac dysrhythmia 4. Leukocytosis 5. Altered mental status changes Plan: 1. Bedside debridement 2. Continue with Dakin's half-strength Dakin's solution every 12 hours, followed by normal saline wet-to-dry dressing every 12 hours 3. Offload pressure to area of wound, apply Mediboots 4. Consult wound care 5. Continue with medical management The impression and plan of care has been dictated as directed. I performed a history and examination of this patient, discussed the same with the dictator. I agree with the dictator's note ,documented as a scribe. Any additional findings or plans will be noted.
--- NOTE | 2022-02-03 10:59 | P.CNNES ---
History of Present Illness Consult date: 02/03/22 Requesting physician: Ford Delatorre Reason for Consult: Tremors; change in altered mental status History of Present Illness: Patient is a 61-year-old male came to the hospital by ambulance on 01/31/2022 as per EMS flow sheet, when they arrived, patient was in the bed in the basement of his home. He mentioned that he fell approximately 24 hours ago in the bathroom from a standing position. That day patient began experiencing pain on the right side of his ribs and flank. Also complains of increased pain in his lower back. He was oriented with GCS of 15. Complaining of 10/10 pain when attempting to move. His vitals were stable with blood pressure 178/78, pulse rate 140 respiration 18 and GCS 15. Patient apparently in the ER was alert and oriented 3. He was following all commands. However his mental status started changing on the next day on 02/01/2022. In the beginning he was intermittently following commands. However since yesterday, he has become unresponsive therefore he was transferred to ICU for further management. Patient was noted to have some myoclonic twitching/tremors. Keppra was started. EEG was ordered last night. 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 Cerebral atrophy. I personally reviewed CT head, agree with the f indings. No changes as compared to CT head from 02/01/2022. Patient has history of atrial fibrillation. Patient's Coumadin has been on hold because of coagulopathy. Cardiology has been consulted, who are recommending resuming Coumadin and pharmacy to dose. There is no hemorrhage noticed. Patient's blood tests on arrival showed WBC 25.8, hemoglobin 14.1 with normal platelets. INR was >10.0. Sodium was 131 BUN 24 creatinine 1.82. Troponin negative. Most recent blood tests shows WBC 18.5, hemoglobin 12.5, platelets 196. INR is 1.2. Sodium is normal potassium 3.2, BUN 35 creatinine 1.77. Hepatic panel is normal, ammonia 17. Hemoglobin A1c 8.1. UA shows moderate amount of leukocyte esterase, 28 WBC and rare bacteria. Patient's blood cultures has grown Staphylococcus aureus on 01/31/2022, but repeat blood cultures are negative. Patient currently on cefazolin 2 g every 8 hours, ID following. Orthopedic also following for L1 compression fracture due to fall. Review of Systems ROS unobtainable: due to mental status Constitutional: Denies fever Integumentary: Reports change in hair/nails, Reports darkening of skin, Reports dryness, Reports wounds Past Medical History Past Medical History: COPD, Diabetes Mellitus, Hyperlipidemia, Hypertension Additional Past Medical History / Comment(s): back problems, TB History of Any Multi-Drug Resistant Organisms: None Reported Additional Past Surgical History / Comment(s): plate in skull, neck surgery Past Anesthesia/Blood Transfusion Reactions: No Reported Reaction Past Psychological History: No Psychological Hx Reported Smoking Status: Current every day smoker, Heavy tobacco smoker Past Alcohol Use History: None Reported Past Drug Use History: Marijuana Medications and Allergies Home Medications Medication Instructions Recorded Confirmed Type Pregabalin [Lyrica] 200 mg PO BID #6 cap 08/28/17 01/31/22 Rx Albuterol Inhaler [Ventolin Hfa 2 puff INHALATION RT-Q6H PRN 01/31/22 01/31/22 History Inhaler] Albuterol Nebulized [Ventolin 2.5 mg INHALATION RT-Q6H PRN 01/31/22 01/31/22 History Nebulized] Atorvastatin [Lipitor] 40 mg PO HS 01/31/22 01/31/22 History HYDROcodone/APAP 7.5-325MG [[place] 1 tab PO BID PRN 01/31/22 01/31/22 History 7.5-325] Metoprolol Tartrate [Lopressor] 50 mg PO TID 01/31/22 01/31/22 History Morphine Sulfate ER [Ms Contin] 15 mg PO Q12HR 01/31/22 01/31/22 History Tiotropium Harris [Spiriva] 1 puff INHALATION RT-DAILY 01/31/22 01/31/22 History Warfarin [Coumadin] 2.5 mg PO MOFR@209901/31/22 01/31/22 History Warfarin [Coumadin] 5 mg PO SUTUWETHSA@209901/31/22 01/31/22 History buPROPion XL [Wellbutrin XL] 150 mg PO BID 01/31/22 01/31/22 History glipiZIDE [Glucotrol] 10 mg PO BID 01/31/22 01/31/22 History Allergies Allergy/AdvReac Type Severity Reaction Status Date / Time phenytoin [From Dilantin] Allergy Unknown Verified 01/31/22 11:46 Physical Examination - Vital Signs Vital Signs: Vital Signs Temp Pulse Pulse Resp BP BP Pulse Ox 02/03/22 08:08 123 H 33 H 02/03/22 08:00 98.3 F 124 H 28 H 129/86 98 02/03/22 07:50 123 H 40 H 02/03/22 07:48 92 L 02/03/22 07:20 124 H 39 H 129/86 92 L 02/03/22 07:10 130 H 38 H 129/86 92 L 02/03/22 07:00 120 H 39 H 138/87 91 L 02/03/22 06:50 123 H 36 H 138/87 93 L 02/03/22 06:40 128 H 41 H 138/87 91 L 02/03/22 06:30 126 H 36 H 138/87 92 L 02/03/22 06:20 125 H 37 H 148/138 92 L 02/03/22 06:10 129 H 37 H 148/138 92 L 02/03/22 06:00 129 H 41 H 145/120 92 L 02/03/22 05:50 126 H 39 H 93 L 02/03/22 05:40 116 H 37 H 92 L 02/03/22 05:30 125 H 38 H 122/99 93 L 02/03/22 05:20 123 H 30 H 93 L 02/03/22 05:10 117 H 21 92 L 02/03/22 05:00 128 H 36 H 140/80 94 L 02/03/22 04:50 118 H 38 H 149/117 93 L 02/03/22 04:40 122 H 40 H 94 L 02/03/22 04:30 118 H 20 141/85 93 L 02/03/22 04:20 124 H 32 H 93 L 02/03/22 04:10 125 H 36 H 93 L 02/03/22 04:00 97.9 F 124 H 39 H 148/81 93 L 02/03/22 03:50 123 H 25 H 148/81 94 L 02/03/22 03:40 118 H 33 H 93 L 02/03/22 03:30 117 H 23 94 L 02/03/22 03:20 117 H 21 94 L 02/03/22 03:10 113 H 26 H 94 L 02/03/22 03:00 122 H 23 140/90 95 02/03/22 02:50 112 H 33 H 93 L 02/03/22 02:40 117 H 17 94 L 02/03/22 02:30 121 H 49 H 93 L 02/03/22 02:20 112 H 23 94 L 02/03/22 02:10 116 H 38 H 02/03/22 02:00 121 H 13 120/65 02/03/22 01:50 114 H 25 H 120/65 02/03/22 01:40 116 H 21 120/65 02/03/22 01:30 116 H 12 120/65 02/03/22 01:20 115 H 17 120/65 02/03/22 01:10 115 H 34 H 120/65 91 L 02/03/22 01:00 106 H 23 118/65 93 L 02/03/22 00:50 130 H 40 H 118/65 93 L 02/03/22 00:40 115 H 27 H 118/65 94 L 02/03/22 00:30 105 H 23 118/65 95 02/03/22 00:20 117 H 74 H 118/65 94 L 02/03/22 00:10 113 H 19 118/65 94 L 02/03/22 00:00 97.8 F 117 H 14 118/69 94 L 02/02/22 23:50 105 H 23 118/69 91 L 02/02/22 23:40 116 H 37 H 118/69 94 L 02/02/22 23:30 111 H 38 H 118/69 95 02/02/22 23:20 108 H 33 H 118/69 94 L 02/02/22 23:16 116 H 22 118/69 95 02/02/22 23:10 120 H 42 H 118/69 94 L 02/02/22 23:00 105 H 24 110/82 93 L 02/02/22 22:50 113 H 36 H 110/82 94 L 02/02/22 22:40 111 H 34 H 110/82 91 L 02/02/22 22:30 104 H 19 110/82 92 L 02/02/22 22:20 112 H 38 H 110/82 95 02/02/22 22:14 111 H 02/02/22 22:10 110 H 38 H 110/82 92 L 02/02/22 22:00 98.5 F 115 H 22 124/69 93 L 02/02/22 21:50 110 H 19 124/69 93 L 02/02/22 21:40 115 H 42 H 92 L 02/02/22 21:34 90 L 02/02/22 20:50 113 H 42 H 154/49 96 02/02/22 20:15 103 H 43 H 145/79 94 L 02/02/22 20:00 110 H 44 H 159/70 94 L 02/02/22 19:50 98.5 F 123 H 40 H 165/73 95 02/02/22 17:04 97.6 F 132 H 18 178/88 95 02/02/22 12:12 97.2 F L 102 H 18 145/80 98 02/02/22 11:51 103 H 02/02/22 11:40 92 L 02/02/22 11:38 107 H Intake and Output 02/02/22 02/03/22 02/03/22 22:59 06:59 14:59 Intake Total 140.75 367.75 200 Output Total 1225 2354 150 Balance -1084.25 -1986.25 50 Intake: IV 20 200 200 Carrier w/ Cartizem 20 180 Invasive Line 3 20 Sodium Chloride 0.9% 1, 200 000 ml @ 100 mls/hr IV . Q10H CRUZ Rx#:[id number] Intake, IV Titration 120.75 167.75 Amount Diltiazem 125 mg In 120.75 117.75 Sodium Chloride 0.9% 100 ml @ 15 MG/HR 15 mls/hr IV .Q8H20M CRUZ Rx#: [id number] ceFAZolin 2 gm In Sodium 50 Chloride 0.9% 50 ml @ 100 mls/hr IVPB Q8HR CRUZ Rx# :[id number] Output: Gastric Drainage 220 Urine 1005 2354 150 Uretheral ([place]pard) 1800 Other: Voiding Method Indwelling Catheter Indwelling Catheter # Bowel Movements 0 Weight 136.07 kg Patient is a late middle aged male, appears older than his stated age. Patient is disheveled. Patient is obtunded, not responding to calling his name. Patient is not responding to deep painful stimuli. Patient is almost comatose, with GCS of 3. Speech and language functions cannot be assessed. Patient is having multifocal arrhythmic myoclonic twitching noticed of the facial region, mainly the left, but both eyes, which are asynchronous. Likewise myoclonic twitches also noticed in the arms and sporadically in the legs. Again, these are arrhythmic, asynchronous. On cranial nerve examination, pupils are equal, round and reacting to light, gaze is midline. Visual rodriguez cannot be tested. Oculocephalics are absent. Corneals are present. Patient has slight flattening of the right nasolabial fold. Patient is breathing although comfortably. Some myoclonic diaphragmatic movement also noted. Lower cranial nerves cannot be tested. Patient's neck is supple. On muscle strength testing, patient not responding to any verbal commands or even to deep painful stimuli. Deep tendon reflexes are symmetric (right/left) biceps 1+/1+, brachioradialis 1/1, knees 0/0, ankles 0/0, plantar flat on the right, possible up on the left. Patient's right ankle and foot is wrapped in gauze. Sensory to touch or painful stimuli, patient is not responding. Cerebellar function and gait cannot be assessed. On general examination, there is no carotid bruit or murmur, S1-S2 audible. Heart rate is irregular. Chest is clear on consultation. Abdomen is soft nontender. No organomegaly, bowel sounds present. Peripheral pulses are present. There is mild peripheral edema. The skin of the distal lower extremities is dry, wrinkled. Some hyperpigmentation noted. Some ecchymosis noticed in the arms. Results - Laboratory Findings CBC and BMP: 02/04/22 03:54 02/04/22 03:54 Abnormal Lab Findings: Abnormal Labs 01/31/22 01/31/22 01/31/22 04:15 04:15 04:15 WBC 25.8 H Hgb MCHC 30.8 L RDW Neutrophils # 24.1 H Lymphocytes # 0.3 L PT INR APTT ABG pH ABG pO2 ABG HCO3 ABG Total CO2 ABG O2 Saturation Hemoglobin Sodium 131 L Potassium Chloride 91 L Carbon Dioxide BUN 24 H Creatinine 1.82 H Glucose 217 H POC Glucose (mg/dL) Hemoglobin A1c 8.1 H Calcium Total Bilirubin 1.4 H Conjugated Bilirubin Delta Bilirubin Alkaline Phosphatase 186 H Total Protein 6.1 L Albumin 2.9 L Urine Protein Urine Glucose (UA) Urine Ketones Urine Blood Ur Leukocyte Esterase Urine RBC Urine WBC Urine Bacteria Urine Mucus Urine Yeast (Budding) 01/31/22 01/31/22 01/31/22 07:00 11:38 16:50 WBC Hgb MCHC RDW Neutrophils # Lymphocytes # PT >130.0 H INR >10.0 H* APTT 66.7 H ABG pH ABG pO2 ABG HCO3 ABG Total CO2 ABG O2 Saturation Hemoglobin Sodium Potassium Chloride Carbon Dioxide BUN Creatinine Glucose POC Glucose (mg/dL) 143 H 189 H Hemoglobin A1c Calcium Total Bilirubin Conjugated Bilirubin Delta Bilirubin Alkaline Phosphatase Total Protein Albumin Urine Protein Urine Glucose (UA) Urine Ketones Urine Blood Ur Leukocyte Esterase Urine RBC Urine WBC Urine Bacteria Urine Mucus Urine Yeast (Budding) 01/31/22 01/31/22 01/31/22 17:43 18:45 20:27 WBC 21.0 H Hgb MCHC 30.9 L RDW Neutrophils # Lymphocytes # PT INR APTT ABG pH ABG pO2 ABG HCO3 ABG Total CO2 ABG O2 Saturation Hemoglobin Sodium Potassium Chloride Carbon Dioxide BUN Creatinine Glucose POC Glucose (mg/dL) 163 H Hemoglobin A1c Calcium Total Bilirubin Conjugated Bilirubin Delta Bilirubin Alkaline Phosphatase Total Protein Albumin Urine Protein 1+ H Urine Glucose (UA) Trace H Urine Ketones Trace H Urine Blood Large H Ur Leukocyte Esterase Moderate H Urine RBC >182 H Urine WBC 28 H Urine Bacteria Rare H Urine Mucus Rare H Urine Yeast (Budding) Few H 02/01/22 02/01/22 02/01/22 06:46 07:07 11:46 WBC 17.1 H Hgb MCHC RDW 15.6 H Neutrophils # 15.7 H Lymphocytes # 0.4 L PT INR APTT ABG pH ABG pO2 ABG HCO3 ABG Total CO2 ABG O2 Saturation Hemoglobin Sodium Potassium Chloride Carbon Dioxide BUN Creatinine Glucose POC Glucose (mg/dL) 135 H 143 H Hemoglobin A1c Calcium Total Bilirubin Conjugated Bilirubin Delta Bilirubin Alkaline Phosphatase Total Protein Albumin Urine Protein Urine Glucose (UA) Urine Ketones Urine Blood Ur Leukocyte Esterase Urine RBC Urine WBC Urine Bacteria Urine Mucus Urine Yeast (Budding) 02/01/22 02/01/22 02/01/22 16:52 18:50 20:58 WBC Hgb MCHC RDW Neutrophils # Lymphocytes # PT INR APTT ABG pH 7.47 H ABG pO2 59 L* ABG HCO3 26 H ABG Total CO2 27 H ABG O2 Saturation 92.2 L Hemoglobin Sodium Potassium Chloride Carbon Dioxide BUN Creatinine Glucose POC Glucose (mg/dL) 134 H 141 H Hemoglobin A1c Calcium Total Bilirubin Conjugated Bilirubin Delta Bilirubin Alkaline Phosphatase Total Protein Albumin Urine Protein Urine Glucose (UA) Urine Ketones Urine Blood Ur Leukocyte Esterase Urine RBC Urine WBC Urine Bacteria Urine Mucus Urine Yeast (Budding) 02/02/22 02/02/22 02/02/22 06:14 07:15 07:15 WBC 17.5 H Hgb MCHC 30.6 L RDW Neutrophils # 15.8 H Lymphocytes # 0.5 L PT INR APTT ABG pH ABG pO2 ABG HCO3 ABG Total CO2 ABG O2 Saturation Hemoglobin Sodium 136 L Potassium 3.0 L Chloride Carbon Dioxide BUN 29 H Creatinine 1.62 H Glucose 139 H POC Glucose (mg/dL) 129 H Hemoglobin A1c Calcium 7.8 L Total Bilirubin Conjugated Bilirubin Delta Bilirubin Alkaline Phosphatase Total Protein Albumin Urine Protein Urine Glucose (UA) Urine Ketones Urine Blood Ur Leukocyte Esterase Urine RBC Urine WBC Urine Bacteria Urine Mucus Urine Yeast (Budding) 02/02/22 02/02/22 02/02/22 07:15 11:54 16:52 WBC Hgb MCHC RDW Neutrophils # Lymphocytes # PT INR APTT ABG pH ABG pO2 ABG HCO3 ABG Total CO2 ABG O2 Saturation Hemoglobin Sodium Potassium Chloride Carbon Dioxide BUN Creatinine Glucose POC Glucose (mg/dL) 137 H 136 H Hemoglobin A1c Calcium Total Bilirubin 2.0 H Conjugated Bilirubin 0.4 H Delta Bilirubin 0.9 H Alkaline Phosphatase 175 H Total Protein 5.7 L Albumin 2.6 L Urine Protein Urine Glucose (UA) Urine Ketones Urine Blood Ur Leukocyte Esterase Urine RBC Urine WBC Urine Bacteria Urine Mucus Urine Yeast (Budding) 02/02/22 02/02/22 02/02/22 19:55 20:01 20:21 WBC 17.6 H Hgb 12.9 L MCHC 30.4 L RDW 15.6 H Neutrophils # 15.9 H Lymphocytes # 0.6 L PT INR APTT ABG pH ABG pO2 72 L ABG HCO3 ABG Total CO2 ABG O2 Saturation Hemoglobin 12.9 L Sodium Potassium Chloride Carbon Dioxide BUN Creatinine Glucose POC Glucose (mg/dL) 131 H Hemoglobin A1c Calcium Total Bilirubin Conjugated Bilirubin Delta Bilirubin Alkaline Phosphatase Total Protein Albumin Urine Protein Urine Glucose (UA) Urine Ketones Urine Blood Ur Leukocyte Esterase Urine RBC Urine WBC Urine Bacteria Urine Mucus Urine Yeast (Budding) 02/02/22 02/02/22 02/02/22 20:21 20:21 21:40 WBC Hgb MCHC RDW Neutrophils # Lymphocytes # PT 12.7 H INR 1.2 H APTT ABG pH ABG pO2 ABG HCO3 ABG Total CO2 ABG O2 Saturation Hemoglobin Sodium 136 L Potassium Chloride Carbon Dioxide 21 L BUN 33 H Creatinine 1.62 H Glucose 155 H POC Glucose (mg/dL) 156 H Hemoglobin A1c Calcium 7.7 L Total Bilirubin Conjugated Bilirubin Delta Bilirubin Alkaline Phosphatase Total Protein Albumin Urine Protein Urine Glucose (UA) Urine Ketones Urine Blood Ur Leukocyte Esterase Urine RBC Urine WBC Urine Bacteria Urine Mucus Urine Yeast (Budding) 02/03/22 02/03/22 02/03/22 01:52 05:31 05:31 WBC 18.5 H Hgb 12.5 L MCHC 30.6 L RDW 15.6 H Neutrophils # 16.5 H Lymphocytes # 0.7 L PT INR APTT ABG pH ABG pO2 ABG HCO3 ABG Total CO2 ABG O2 Saturation Hemoglobin Sodium Potassium 3.2 L Chloride Carbon Dioxide BUN 35 H Creatinine 1.77 H Glucose 142 H POC Glucose (mg/dL) 172 H Hemoglobin A1c Calcium 7.7 L Total Bilirubin 1.7 H Conjugated Bilirubin Delta Bilirubin Alkaline Phosphatase 157 H Total Protein 5.7 L Albumin 2.5 L Urine Protein Urine Glucose (UA) Urine Ketones Urine Blood Ur Leukocyte Esterase Urine RBC Urine WBC Urine Bacteria Urine Mucus Urine Yeast (Budding) 02/03/22 06:50 WBC Hgb MCHC RDW Neutrophils # Lymphocytes # PT INR APTT ABG pH ABG pO2 ABG HCO3 ABG Total CO2 ABG O2 Saturation Hemoglobin Sodium Potassium Chloride Carbon Dioxide BUN Creatinine Glucose POC Glucose (mg/dL) 114 H Hemoglobin A1c Calcium Total Bilirubin Conjugated Bilirubin Delta Bilirubin Alkaline Phosphatase Total Protein Albumin Urine Protein Urine Glucose (UA) Urine Ketones Urine Blood Ur Leukocyte Esterase Urine RBC Urine WBC Urine Bacteria Urine Mucus Urine Yeast (Budding) Assessment and Plan Assessment: * Acute metabolic encephalopathy. Patient showing multifocal myoclonic twitching involving facial region, and in the extremities. These myoclonic twitching are asynchronous, multifocal, therefore probably metabolic rather than epileptic. EEG did not reveal any clearcut epileptiform activity. Showed some triphasic waves, suggestive of metabolic encephalopathy. * Bacteremia * Status post fall with L1 compression fracture * Coagulopathy * Atrial fibrillation on long-term anticoagulation with Coumadin. * Peripheral edema. Plan: * EEG was performed, which did not reveal any status epilepticus. Some background slowing, with triphasic waves suggestive of metabolic encephalopathy. * Continue Keppra for now. * Medical management as per IM and critical care. * Suggest MRI of the brain rule out CVA. * Carotid Doppler. * Resume anticoagulation for atrial fibrillation, when medically cleared. * Neurology will follow clinically. Thank you for the consult. Time with Patient: Greater than 30
--- NOTE | 2022-02-03 11:04 | P.PCN ---
Date of Procedure: 02/03/22 Preoperative Diagnosis: chronic non-healing right foot wound Postoperative Diagnosis: same Procedure(s) Performed: excisional debridement of the right lateral foot wound Anesthesia: none Surgeon: Art Washburn Estimated Blood Loss (ml): 2 Pathology: none sent Condition: stable Disposition: ICU Indications for Procedure: 61 year old male with chronic right lateral ankle wound with previous debridement and continued Daikins dressing changes. Wound with eschar and ischemic edges noted during dressing changes in need of excisional debridement. Description of Procedure: The area of the right foot was prepped and draped in usual fashion. Utilizing a 15 blade scalpel the eschar and ischemic edges were sharply debrided down to bleeding subcutaneous and fascial tissues. The wound measured 8.5x4cm. The area was then dressed with Daikins soaked 4x4's and Kerlix dressing.
--- NOTE | 2022-02-03 12:19 | P.PN ---
Subjective Progress Note Date: 02/03/22 Principal diagnosis: Multiple right-sided rib fractures and a right sided pulmonary contusion with compression fractures of lumbar spine This is a extremely debilitated 61-year-old male patient who is known to monitor milligrams and comorbidities and I was asked to evaluate this patient because of a fall and limited hemoptysis. The patient is known to have a combination of i ssues including diabetes mellitus and diabetic peripheral neuropathy and the patient has had previous episodes of falls and he has issues with chronic atrial flutter maintained on long-term anticoagulation with warfarin. He is morbidly obese. He has hypertension and hyperlipidemia as comorbid conditions along with chronic kidney disease. He is morbidly obese. He has history of COPD and is a chronic smoker. He comes in to the hospital after he had a fall at home. He was the bathroom and he slept and he landed on his left chest. Here in the hospital, the patient was found to be Coumadin toxic and his INR was above 10. He did have some limited hemoptysis and coffee-ground emesis without any melanotic stools. No abdominal pain. He was noted to have a large ulcer over the right ankle/malleolus area which is a chronic wound. Immediately the patient was given vitamin K. This computed tomography scan of the chest shows some right lateral eighth through 10th rib fractures with trace amount of right- sided pleural effusion and right basilar atelectasis related to underlying pulmonary contusion. No evidence of any pneumothorax. Some limited patchy airspace disease in the left upper lobe probably inflammatory in the same time the patient had dilated pulmonary arteries indicating possibility of pulmonary hypertension and a fluid and gas-filled distended stomach. I noted the patient has not had a CAT scan of the brain and a CAT scan was done that showed no acute intracranial process. There was a remote left occipital lobe injury along with some nonspecific white matter changes secondary to chronic microangiopathy. This computed tomography scan of the lumbar spine showed acute anterior wedge compression deformity of L1 vertebral body with a 30% loss in height along with multilevel degenerative disc changes and a 7 mm In the right pelvis. Patient was already seen by general surgery and orthopedic surgery. Lumbar spine x-ray that was done on 2021 showed no acute fracture. The patient was also seen by vascular surgery for a right lateral foot wound and this is a stage II wound 8.5 x 4 cm in size. Debridement was done by vascular surgery. On 02/02/2022, the patient is confused which is unchanged compared to yesterday. CAT scan of the brain was done yesterday showed no acute abnormalities. He did not have any further episodes of hemoptysis. His coagulopathy was reversed. I noted some coffee-ground emesis yesterday and subsequently developed some ab dominal distention and ileus was suspected. NG tube was inserted. On multiple occasions, he pulled out his NG tube. This morning, NG tube is in place and the total amount of output is in order of 25 mL since morning and he does have some old retained coffee-ground material in the canister since yesterday in the order of 200 mL. Abdomen is soft. He is laying comfortably in bed. He is off anti coagulation for now. He is an IV fluids and currently receiving 0.9 at a rate of 100 mL an hour. He is also on a Cardizem drip for atrial flutter with RVR. His heart rates currently is in order of 130 beats per minute. He is still tachycardic. The Cardizem rate accordingly was increased and is being adjusted and titrated by cardiology.The white cell count is at 17.7 hemoglobin 15.3 and a platelet count of 166, the patient also has a sodium level of 136, potassium is being replaced is currently down to 3 and a BUN is at 29 with a creatinine of 1.62. Serum bicarbs at 23. Correlation profile is normalized. The patient only on Lovenox for DVT prophylaxis. Reevaluated today on 02/03/22, patient remains in the ICU, presently on 2 L nasal cannula, patient remains unresponsive to any stimuli including deep painful stimuli. Patient remains obtunded, he has a Glascow coma score of 3, speech and language could not be assessed. Patient is having multifocal myoclonic twitching. Mostly the facial region. Seen by neurology this morning, felt to have acute metabolic encephalopathy, EEG did not reveal any evidence of epileptiform activity. EEG was suggestive of metabolic encephalopathy patient was kept on Keppra for now. Suggesting MRI of the brain to rule out CVA. And recommending that the patient goes back on anticoagulation for atrial fibrillation when medically cleared. Pulmonary-[place], the patient is basically the same, he does have fractures but does not seem to be compromising his oxygenation. Patient is on 2 L nasal cannula, and O2 saturation is in the 90s. He is on Cardizem at 15 mg per hour for his atrial fibrillation. 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 Blood cultures have been positive for presumptive staph aureus. These have been positive since admission. Cultures from right ankle 1 showed Staphylococcus aureus and strep agalactiae group B, patient is being followed by infectious disease on the case Objective - Vital Signs Vital signs: Vital Signs Temp 98.3 F 02/03/22 08:00 Pulse 132 H 02/03/22 11:45 Resp 22 02/03/22 11:45 BP 107/62 02/03/22 10:00 Pulse Ox 90 L 02/03/22 10:00 FiO2 Intake & Output 02/02/22 02/03/22 02/03/22 18:59 06:59 18:59 Intake Total 254.583 387.75 200 Output Total 2650 2729 150 Balance -2395.417 -2341.25 50 Weight 136.07 kg Intake: IV 40 220 200 Carrier w/ Cartizem 200 Invasive Line 1 20 Invasive Line 3 20 20 Sodium Chloride 0.9% 1, 200 000 ml @ 100 mls/hr IV . Q10H [facility] Rx#:[id number] Intake, IV Titration 214.583 167.75 Amount Diltiazem 125 mg In 214.583 117.75 Sodium Chloride 0.9% 100 ml @ 15 MG/HR 15 mls/hr IV .Q8H20M [facility] Rx#: [id number] ceFAZolin 2 gm In Sodium 50 Chloride 0.9% 50 ml @ 100 mls/hr IVPB Q8HR [facility] Rx# :[id number] Oral 0 Output: Gastric Drainage 220 Urine 2650 2509 150 Uretheral (Shepard) 900 1800 Other: Voiding Method Indwelling Catheter Indwelling Catheter Indwelling Catheter # Bowel Movements 0 - Exam GENERAL: Revealed a 61-year-old white male, obtunded, in no distress. On 2 L nasal cannula. Head atraumatic, normocephalic. EYES: Pupils equal. Conjunctiva normal. HEENT: External appearance of nose and ears normal, oral cavity grossly normal. NECK: JVD not raised; masses not palpable. HEART: Normal S1 and S2, no S3 gallop, irregular rhythm. LUNGS: Diminished breath sounds and crackles at the bases. ABDOMEN: Soft, distended, no megaly no rebound no guarding PSYCH: Cannot be assessed, patient is quite obtunded. DERMATOLOGICAL: Large wound around the lateral malleolus right foot Gangrene Changes, wrapped with sterile dressing. MUSCULOSKELETAL:No Clubbing/cyanosis;muscles-grossly intact, increase in low back pain with movement NEUROLOGICAL: As noted earlier, patient has a Glascow coma score of 3, unresponsive to any stimuli, please refer to full neurological evaluation. - Labs CBC & Chem 7: 02/03/22 05:31 02/03/22 05:31 Labs: Abnormal Lab Results - Last 24 Hours (Table) 02/02/22 02/02/22 02/02/22 Range/Units 16:52 19:55 20:01 WBC (3.8-10.6) k/uL Hgb (13.0-17.5) gm/dL MCHC (31.0-37.0) g/dL RDW (11.5-15.5) % Neutrophils # (1.3-7.7) k/uL Lymphocytes # (1.0-4.8) k/uL PT (9.0-12.0) sec INR (<1.2) ABG pO2 72 L (83-108) mmHg Hemoglobin 12.9 L (13.0-17.5) gm/dL Sodium (137-145) mmol/L Potassium (3.5-5.1) mmol/L Carbon Dioxide (22-30) mmol/L BUN (9-20) mg/dL Creatinine (0.66-1.25) mg/dL Glucose (74-99) mg/dL POC Glucose (mg/dL) 136 H 131 H (70-110) mg/dL Calcium (8.4-10.2) mg/dL Total Bilirubin (0.2-1.3) mg/dL Alkaline Phosphatase (38-126) U/L Total Protein (6.3-8.2) g/dL Albumin (3.5-5.0) g/dL 02/02/22 02/02/22 02/02/22 Range/Units 20:21 20:21 20:21 WBC 17.6 H (3.8-10.6) k/uL Hgb 12.9 L (13.0-17.5) gm/dL MCHC 30.4 L (31.0-37.0) g/dL RDW 15.6 H (11.5-15.5) % Neutrophils # 15.9 H (1.3-7.7) k/uL Lymphocytes # 0.6 L (1.0-4.8) k/uL PT 12.7 H (9.0-12.0) sec INR 1.2 H (<1.2) ABG pO2 (83-108) mmHg Hemoglobin (13.0-17.5) gm/dL Sodium 136 L (137-145) mmol/L Potassium (3.5-5.1) mmol/L Carbon Dioxide 21 L (22-30) mmol/L BUN 33 H (9-20) mg/dL Creatinine 1.62 H (0.66-1.25) mg/dL Glucose 155 H (74-99) mg/dL POC Glucose (mg/dL) (70-110) mg/dL Calcium 7.7 L (8.4-10.2) mg/dL Total Bilirubin (0.2-1.3) mg/dL Alkaline Phosphatase (38-126) U/L Total Protein (6.3-8.2) g/dL Albumin (3.5-5.0) g/dL 02/02/22 02/03/22 02/03/22 Range/Units 21:40 01:52 05:31 WBC 18.5 H (3.8-10.6) k/uL Hgb 12.5 L (13.0-17.5) gm/dL MCHC 30.6 L (31.0-37.0) g/dL RDW 15.6 H (11.5-15.5) % Neutrophils # 16.5 H (1.3-7.7) k/uL Lymphocytes # 0.7 L (1.0-4.8) k/uL PT (9.0-12.0) sec INR (<1.2) ABG pO2 (83-108) mmHg Hemoglobin (13.0-17.5) gm/dL Sodium (137-145) mmol/L Potassium (3.5-5.1) mmol/L Carbon Dioxide (22-30) mmol/L BUN (9-20) mg/dL Creatinine (0.66-1.25) mg/dL Glucose (74-99) mg/dL POC Glucose (mg/dL) 156 H 172 H (70-110) mg/dL Calcium (8.4-10.2) mg/dL Total Bilirubin (0.2-1.3) mg/dL Alkaline Phosphatase (38-126) U/L Total Protein (6.3-8.2) g/dL Albumin (3.5-5.0) g/dL 02/03/22 02/03/22 Range/Units 05:31 06:50 WBC (3.8-10.6) k/uL Hgb (13.0-17.5) gm/dL MCHC (31.0-37.0) g/dL RDW (11.5-15.5) % Neutrophils # (1.3-7.7) k/uL Lymphocytes # (1.0-4.8) k/uL PT (9.0-12.0) sec INR (<1.2) ABG pO2 (83-108) mmHg Hemoglobin (13.0-17.5) gm/dL Sodium (137-145) mmol/L Potassium 3.2 L (3.5-5.1) mmol/L Carbon Dioxide (22-30) mmol/L BUN 35 H (9-20) mg/dL Creatinine 1.77 H (0.66-1.25) mg/dL Glucose 142 H (74-99) mg/dL POC Glucose (mg/dL) 114 H (70-110) mg/dL Calcium 7.7 L (8.4-10.2) mg/dL Total Bilirubin 1.7 H (0.2-1.3) mg/dL Alkaline Phosphatase 157 H (38-126) U/L Total Protein 5.7 L (6.3-8.2) g/dL Albumin 2.5 L (3.5-5.0) g/dL Microbiology - Last 24 Hours (Table) 01/31/22 21:47 Blood Culture Gram Stain - Final Blood Blood Culture - Final Staphylococcus aureus 01/31/22 18:55 Blood Culture Gram Stain - Final Blood Blood Culture - Preliminary Staphylococcus aureus Staphylococcus epidermidis 02/01/22 08:55 Blood Culture Gram Stain - Preliminary Blood Blood Culture - Preliminary Presumptive Staph aureus 01/31/22 06:45 Anaerobic Culture - Preliminary Ankle - Right Lynda albicans 01/31/22 06:45 Gram Stain - Final Ankle - Right Wound Culture - Final Strep agalactiae - (group b) Staphylococcus aureus Assessment and Plan Assessment: Impression: Right sided rib fractures, traumatic, secondary to fall, Right sided pulmonary contusion. Anterior wedge compression deformity of the vertebral spine. Hemoptysis secondary to contusion and exacerbated by Coumadin coagulopathy Underlying COPD and chronic smoking Coumadin toxicity with INR above 10 on admission, recovered History of frequent falls. Metabolic encephalopathy, acute, being addressed by neurology on the case. Chronic atrial fibrillation. Chronic kidney disease stage III. Stage II right ankle wound requiring debridement and positive for staph aureus and strep agalactiae Positive bacteremia, most likely source is the one, being addressed by infectious disease on the case, Diabetic peripheral neuropathy The genital joint disease History of Nephrolithiasis with right renal calculus 7 mm in size the right renal pelvis Recommendation: Continue to monitor in the ICU Consider MRI of the brain. Continue antibiotics for his gram-positive bacteremia Continue incentive spirometry Continue GI and DVT prophylaxis Continue Keppra Carotid Doppler is pending Continue anticoagulation therapy Prognosis is extremely poor and guarded We will continue to follow. Time with Patient: Less than 30
[2022-02-03 12:37] LABS: Glucose,Whole Blood 140 mg/dL (70-110)
--- NOTE | 2022-02-03 12:38 | US ---
EXAMINATION TYPE: US arterial LE multi level DATE OF EXAM: 02/03/2022 11:43 AM CLINICAL HISTORY: nonpalpable PT/DP pulses, rt lE wound. Unresponsive. Doppler Waveforms: Right: Monophasic Left: Monophasic Pressure Gradients: Ankle-Brachial Indices: Right: 0.56 Left: CNO Toe Brachial Indices: Right: 1.05 Left: 0.95 IMPRESSION: Markedly suboptimal study. Loss of phasicity is nonspecific. At least moderate periphera l arterial disease in the right lower extremity is present. Advised further investigation and follow- up.
[2022-02-03] MEDS ORDERED: guaiFENesin 600 MG TABLET.ER PO ONE (16:00)
[2022-02-03] MEDS ORDERED: INSULIN ASPART (NovoLOG) 100 UNIT/ML VIAL SQ ONE (16:00)
[2022-02-03] MEDS ORDERED: WARFARIN 3 MG TAB ONE (16:00)
[2022-02-03] MEDS ORDERED: IPRATROPIUM-ALBUTEROL 3 ML NEB ONE (16:00)
[2022-02-03] MEDS ORDERED: WARFARIN 3 MG TAB PO ONE (18:00)
--- NOTE | 2022-02-03 20:39 | EEG ---
ELECTROENCEPHALOGRAM REPORT PREAMBLE: This is a 61-year-old male with acute altered mental status, tremors, rule out status. EEG FINDINGS: This is a 21-channel digital EEG recorded with video competent, utilizing 10/20 international system with referential and bipolar montages. The recording is technically limited due to near continuous myogenic activity seen in bihemispheric region. When this myogenic activity is decreased, there is evidence of possible triphasic type waves seen frontally, maximal in bihemispheric region. The background otherwise appears somewhat disorganized with mixed frequencies of theta and some delta activity. Different stages of sleep were not seen. Any clear-cut epileptiform activity was not seen in this study. IMPRESSION: This is a technically limited EEG due to the presence of near constant myogenic activity seen in bihemispheric region. Otherwise, the background appears slow, with some evidence of triphasic waves, suggestive of toxic metabolic encephalopathy. Hepatic encephalopathy needs to be ruled out. No clear-cut epileptic activity was seen. Suggest repeat study when the patient is more cooperative. MMMILLICENT / JIMENEZN: [id number] /
--- NOTE | 2022-02-03 21:12 | P.PN ---
Subjective Progress Note Date: 02/03/22 Principal diagnosis: Upper GI bleed patient was transferred to the ICU yesterday. Patient is lethargic today. He is tachycardic with some tachypnea as well. Nasogastric tube has remained in place and remains bilious with small amount of output. No bloody or melanotic stools. White blood cell count elevated. Hemoglobin stable. Objective - Vital Signs Vital signs: Vital Signs Temp 97.6 F 02/03/22 12:00 Pulse 121 H 02/03/22 20:50 Resp 25 H 02/03/22 12:00 BP 149/74 02/03/22 12:00 Pulse Ox 93 L 02/03/22 12:00 FiO2 Intake & Output 02/03/22 02/03/22 02/04/22 06:59 18:59 06:59 Intake Total 387.75 625 312.5 Output Total 2729 325 50 Balance -2341.25 300 262.5 Weight 136.07 kg Intake: IV 220 500 200 Carrier w/ Cartizem 200 Invasive Line 3 20 Sodium Chloride 0.9% 1, 500 100 000 ml @ 100 mls/hr IV . Q10H [facility] Rx#:[id number] levETIRAcetam IV 500 mg 100 In Sodium Chloride 0.9% 100 ml @ 400 mls/hr IVPB Q12HR [facility] Rx#:[id number] Intake, IV Titration 167.75 125 112.5 Amount Diltiazem 125 mg In 117.75 125 112.5 Sodium Chloride 0.9% 100 ml @ 15 MG/HR 15 mls/hr IV .Q8H20M [facility] Rx#: [id number] ceFAZolin 2 gm In Sodium 50 Chloride 0.9% 50 ml @ 100 mls/hr IVPB Q8HR [facility] Rx# :[id number] Output: Gastric Drainage 220 Urine 2509 325 50 Uretheral (Shepard) 1800 Other: Voiding Method Indwelling Catheter Indwelling Catheter Indwelling Catheter # Bowel Movements 0 - Exam Abdomen: Soft, nontender, nondistended - Labs CBC & Chem 7: 02/03/22 05:31 02/03/22 05:31 Labs: Abnormal Lab Results - Last 24 Hours (Table) 02/02/22 02/02/22 02/02/22 Range/Units 20:21 20:21 21:40 WBC (3.8-10.6) k/uL Hgb (13.0-17.5) gm/dL MCHC (31.0-37.0) g/dL RDW (11.5-15.5) % Neutrophils # (1.3-7.7) k/uL Lymphocytes # (1.0-4.8) k/uL PT 12.7 H (9.0-12.0) sec INR 1.2 H (<1.2) Sodium 136 L (137-145) mmol/L Potassium (3.5-5.1) mmol/L Carbon Dioxide 21 L (22-30) mmol/L BUN 33 H (9-20) mg/dL Creatinine 1.62 H (0.66-1.25) mg/dL Glucose 155 H (74-99) mg/dL POC Glucose (mg/dL) 156 H (70-110) mg/dL Calcium 7.7 L (8.4-10.2) mg/dL Total Bilirubin (0.2-1.3) mg/dL Alkaline Phosphatase (38-126) U/L Total Protein (6.3-8.2) g/dL Albumin (3.5-5.0) g/dL 02/03/22 02/03/22 02/03/22 Range/Units 01:52 05:31 05:31 WBC 18.5 H (3.8-10.6) k/uL Hgb 12.5 L (13.0-17.5) gm/dL MCHC 30.6 L (31.0-37.0) g/dL RDW 15.6 H (11.5-15.5) % Neutrophils # 16.5 H (1.3-7.7) k/uL Lymphocytes # 0.7 L (1.0-4.8) k/uL PT (9.0-12.0) sec INR (<1.2) Sodium (137-145) mmol/L Potassium 3.2 L (3.5-5.1) mmol/L Carbon Dioxide (22-30) mmol/L BUN 35 H (9-20) mg/dL Creatinine 1.77 H (0.66-1.25) mg/dL Glucose 142 H (74-99) mg/dL POC Glucose (mg/dL) 172 H (70-110) mg/dL Calcium 7.7 L (8.4-10.2) mg/dL Total Bilirubin 1.7 H (0.2-1.3) mg/dL Alkaline Phosphatase 157 H (38-126) U/L Total Protein 5.7 L (6.3-8.2) g/dL Albumin 2.5 L (3.5-5.0) g/dL 02/03/22 02/03/22 Range/Units 06:50 12:36 WBC (3.8-10.6) k/uL Hgb (13.0-17.5) gm/dL MCHC (31.0-37.0) g/dL RDW (11.5-15.5) % Neutrophils # (1.3-7.7) k/uL Lymphocytes # (1.0-4.8) k/uL PT (9.0-12.0) sec INR (<1.2) Sodium (137-145) mmol/L Potassium (3.5-5.1) mmol/L Carbon Dioxide (22-30) mmol/L BUN (9-20) mg/dL Creatinine (0.66-1.25) mg/dL Glucose (74-99) mg/dL POC Glucose (mg/dL) 114 H 140 H (70-110) mg/dL Calcium (8.4-10.2) mg/dL Total Bilirubin (0.2-1.3) mg/dL Alkaline Phosphatase (38-126) U/L Total Protein (6.3-8.2) g/dL Albumin (3.5-5.0) g/dL Microbiology - Last 24 Hours (Table) 01/31/22 21:47 Blood Culture Gram Stain - Final Blood Blood Culture - Final Staphylococcus aureus 01/31/22 18:55 Blood Culture Gram Stain - Final Blood Blood Culture - Preliminary Staphylococcus aureus Staphylococcus epidermidis 02/01/22 08:55 Blood Culture Gram Stain - Preliminary Blood Blood Culture - Preliminary Presumptive Staph aureus 01/31/22 06:45 Anaerobic Culture - Preliminary Ankle - Right Lynda albicans Assessment and Plan (1) Upper GI bleed Narrative/Plan: patient transferred to the ICU because of increasing lethargy and abnormal v ital signs. Patient with positive blood cultures and being treated by infectious disease for that. Nasogastric tube remains bilious. No signs of GI bleed at this time. Prior to placement of nasogastric tube patient had mild distention but no significant tenderness. No suspicion currently for intra- abdominal pathology. We will follow closely with you. Current Visit: Yes Status: Acute Code(s): K92.2 - GASTROINTESTINAL HEMORRHAGE, UNSPECIFIED SNOMED Code(s): 41706223
[2022-02-03] MEDS: INSULIN DETEMIR (LEVEMIR) 100 UNIT/ML SYR SQ SCH (21:18)
--- NOTE | 2022-02-03 22:03 | PN ---
PROGRESS NOTE SUBJECTIVE: A 61-year-old gentleman, who was admitted to hospital with atrial fibrillation with rapid ventricular rate and coagulopathy. This morning, he remains in atrial fibrillation with better controlled ventricular rate. The patient has right lower extremity cellulitis and necrotic wound. OBJECTIVE: VITAL SIGNS: Heart rate is 103 beats per minute and irregular, blood pressure is 107/62, respiratory rate is 20, O2 saturation is 90%. NECK: There is no jugular venous distention. Carotid upstroke is diminished. There is no bruit. CHEST: Reveals diminished air entry at the bases. HEART: Reveals first and second heart sounds, irregular rhythm, and systolic murmur at the apex. EXTREMITIES: Reveal bilateral pitting edema. LABORATORY DATA: Show a hemoglobin of 12.5, platelet count is 190. BUN is 35, creatinine is 1.7, potassium is low at 3.2. ASSESSMENT AND PLAN: Atrial fibrillation with poorly controlled ventricular rate. The patient is on Cardizem, which we are going to continue. I am going to resume the patient on Coumadin, and Pharmacy will dose the same. MMODL / IJN: [id number] /
[2022-02-03 22:07] LABS: Magnesium 1.8 mg/dL (1.6-2.3); Potassium 3.1 mmol/L (3.5-5.1)
[2022-02-04] MEDS ORDERED: POTASSIUM CHLORIDE 20 MEQ in WATER FOR INJECTION 1 100ML.BAG IVPB SCH (00:30)
[2022-02-04 00:37] LABS: Glucose,Whole Blood 162 mg/dL (70-110)
[2022-02-04] MEDS: POTASSIUM CHLORIDE 10 MEQ in WATER FOR INJECTION 1 100ML.BAG IVPB SCH ×4 (01:36→05:27)
[2022-02-04] MEDS: SODIUM CHLORIDE 0.9% 1,000 ML IV SCH ×3 (02:48→20:56)
[2022-02-04 04:37] LABS: Anisocytosis Slight; Basophils # (A) 0.1 k/uL (0-0.2); Basophils % (A) 0 %; Eosinophils % (A) 0 %; HCT 41.1 % (39.0-53.0); HGB 12.4 gm/dL (13.0-17.5); Hypochromasia Marked; Lymphocytes # (A) 0.5 k/uL (1.0-4.8); Lymphocytes % (A) 3 %; MCHC 30.3 g/dL (31.0-37.0); MCV 92.4 fL (80.0-100.0); Monocytes # (A) 0.6 k/uL (0-1.0); Monocytes % (A) 4 %; Neutrophils # (A) 14.7 k/uL (1.3-7.7); Neutrophils % (A) 91 %; Platelet Count 193 k/uL (150-450); RBC 4.44 m/uL (4.30-5.90); RDW 16.1 % (11.5-15.5); WBC 16.2 k/uL (3.8-10.6)
[2022-02-04] MEDS ORDERED: DEXTROSE 5% IN WATER 100 ML with AMIODARONE 150 MG IV ONE (04:45)
[2022-02-04] MEDS ORDERED: AMIODARONE 360 MG in DEXTROSE 5% IN WATER 200 ML IV ONE ×2 (05:00)
[2022-02-04 05:09] LABS: INR 1.5 (<1.2); Prothrombin Time 15.5 sec (9.0-12.0)
[2022-02-04 05:10] LABS: Calcium 7.7 mg/dL (8.4-10.2); Magnesium 1.8 mg/dL (1.6-2.3); Potassium 4.3 mmol/L (3.5-5.1)
[2022-02-04] MEDS: DILTIAZEM 125 MG in SODIUM CHLORIDE 0.9% 100 ML IV SCH ×2 (05:29→11:22)
[2022-02-04 06:28] LABS: Glucose,Whole Blood 142 mg/dL (70-110)
[2022-02-04] MEDS ORDERED: Magnesium Replacement Protocol 1 EACH MISC MISCELLANE PRN (06:37)
[2022-02-04] MEDS: INSULIN ASPART (NovoLOG) 100 UNIT/ML VIAL SQ SCH ×3 (06:42→18:29)
[2022-02-04] MEDS: IPRATROPIUM-ALBUTEROL 3 ML NEB INHALATION SCH ×4 (07:39→20:53)
[2022-02-04] MEDS: BUDESONIDE 1 MG/2 ML NEBU INHALATION SCH ×2 (07:42→20:53)
[2022-02-04] MEDS: guaiFENesin 600 MG TABLET.ER PO SCH ×4 (07:59→20:25)
[2022-02-04] MEDS: TAMSULOSIN 0.4 MG CAP.ER.24H PO SCH (07:59)
[2022-02-04] MEDS: MORPHINE SULFATE ER 15 MG TABLET PO SCH ×2 (08:00→20:25)
[2022-02-04] MEDS: PREGABALIN 100 MG CAP PO SCH ×2 (08:00→20:25)
[2022-02-04] MEDS: NICOTINE 21MG/24HR PATCH TRANSDERM SCH (08:23)
[2022-02-04] MEDS: PANTOPRAZOLE 40 MG/10 ML VIAL IVP SCH ×2 (08:24→20:56)
[2022-02-04] MEDS: MAGNESIUM SULFATE-D5W PMX 1 GM in DEXTROSE/WATER 1 100ML.BAG IVPB SCH ×2 (08:25→11:22)
[2022-02-04] MEDS: levETIRAcetam IV 500 MG in SODIUM CHLORIDE 0.9% 100 ML IVPB SCH ×2 (08:25→20:56)
[2022-02-04] MEDS: SODIUM HYPOCHLORITE 0.25% 480 ML BOT MISCELLANE SCH (08:28)
--- NOTE | 2022-02-04 09:10 | P.PN ---
Subjective Progress Note Date: 02/04/22 Principal diagnosis: Pressure ulcer Patient was seen and examined in the ICU. No acute changes through the night. Patient still nonresponsive. He's been afebrile. Dressing changes every 12 hours. Yesterday he underwent arterial duplex of the lower extremities. With KHANH on the right of 0.56, left could not obtain. At least moderate peripheral arterial disease in the right lower extremity present. Objective - Vital Signs Vital signs: Vital Signs Temp 97.6 F 02/03/22 12:00 Pulse 135 H 02/04/22 07:50 Resp 27 H 02/03/22 12:17 BP 146/71 02/03/22 12:17 Pulse Ox 95 02/04/22 07:58 FiO2 Intake & Output 02/03/22 02/04/22 02/04/22 18:59 06:59 18:59 Intake Total 625 1937.5 100 Output Total 325 710 60 Balance 300 1227.5 40 Weight 136 kg Intake: IV 500 1700 100 Potassium Chloride 10 meq 400 In Water For Injection 1 100ml.bag @ 100 mls/hr IVPB Q1HR CR[facility] Rx#: [id number] Sodium Chloride 0.9% 1, 500 1100 100 000 ml @ 100 mls/hr IV . Q10H [facility] Rx#:[id number] ceFAZolin 2 gm In Sodium 100 Chloride 0.9% 50 ml @ 100 mls/hr IVPB Q8HR [facility] Rx# :[id number] levETIRAcetam IV 500 mg 100 In Sodium Chloride 0.9% 100 ml @ 400 mls/hr IVPB Q12HR [facility] Rx#:[id number] Intake, IV Titration 125 237.5 Amount Diltiazem 125 mg In 125 237.5 Sodium Chloride 0.9% 100 ml @ 15 MG/HR 15 mls/hr IV .Q8H20M [facility] Rx#: [id number] Output: Urine 325 710 60 Other: Voiding Method Indwelling Catheter Indwelling Catheter - Exam General appearance: The patient is awake, non-orientated, and nonresponsive. HET: Head is normocephalic and atraumatic. Neck: Supple without lymphadenopathy. Trachea midline. Extremities: Dressing clean dry and intact on the right foot. Neurological: Patient nonresponsive. - Labs CBC & Chem 7: 02/04/22 03:54 02/04/22 03:54 Labs: Abnormal Lab Results - Last 24 Hours (Table) 02/03/22 02/03/22 02/04/22 Range/Units 12:36 21:07 00:35 WBC (3.8-10.6) k/uL Hgb (13.0-17.5) gm/dL MCHC (31.0-37.0) g/dL RDW (11.5-15.5) % Neutrophils # (1.3-7.7) k/uL Lymphocytes # (1.0-4.8) k/uL PT (9.0-12.0) sec INR (<1.2) Potassium 3.1 L (3.5-5.1) mmol/L BUN (9-20) mg/dL Creatinine (0.66-1.25) mg/dL Glucose (74-99) mg/dL POC Glucose (mg/dL) 140 H 162 H (70-110) mg/dL Calcium (8.4-10.2) mg/dL 02/04/22 02/04/22 02/04/22 Range/Units 03:54 03:54 03:54 WBC 16.2 H (3.8-10.6) k/uL Hgb 12.4 L (13.0-17.5) gm/dL MCHC 30.3 L (31.0-37.0) g/dL RDW 16.1 H (11.5-15.5) % Neutrophils # 14.7 H (1.3-7.7) k/uL Lymphocytes # 0.5 L (1.0-4.8) k/uL PT 15.5 H (9.0-12.0) sec INR 1.5 H (<1.2) Potassium (3.5-5.1) mmol/L BUN 36 H (9-20) mg/dL Creatinine 1.84 H (0.66-1.25) mg/dL Glucose 139 H (74-99) mg/dL POC Glucose (mg/dL) (70-110) mg/dL Calcium 7.7 L (8.4-10.2) mg/dL 02/04/22 Range/Units 06:26 WBC (3.8-10.6) k/uL Hgb (13.0-17.5) gm/dL MCHC (31.0-37.0) g/dL RDW (11.5-15.5) % Neutrophils # (1.3-7.7) k/uL Lymphocytes # (1.0-4.8) k/uL PT (9.0-12.0) sec INR (<1.2) Potassium (3.5-5.1) mmol/L BUN (9-20) mg/dL Creatinine (0.66-1.25) mg/dL Glucose (74-99) mg/dL POC Glucose (mg/dL) 142 H (70-110) mg/dL Calcium (8.4-10.2) mg/dL Microbiology - Last 24 Hours (Table) 01/31/22 21:47 Blood Culture Gram Stain - Final Blood Blood Culture - Final Staphylococcus aureus 01/31/22 18:55 Blood Culture Gram Stain - Final Blood Blood Culture - Preliminary Staphylococcus aureus Staphylococcus epidermidis 02/01/22 08:55 Blood Culture Gram Stain - Preliminary Blood Blood Culture - Preliminary Presumptive Staph aureus 01/31/22 06:45 Anaerobic Culture - Preliminary Ankle - Right Lynda albicans Assessment and Plan Assessment: 1. Necrotic wound/pressure ulcer of lateral aspect of right foot 2. Diabetes mellitus 3. Cardiac dysrhythmia 4. Leukocytosis 5. Altered mental status changes Plan: 1. Bedside debridement 2. Continue with Dakin's half-strength Dakin's solution every 12 hours, followed by normal saline wet-to-dry dressing every 12 hours 3. Offload pressure to area of wound, apply Mediboots 4. Consult wound care 5. Arterial duplex ordered and reviewed 6. We will continue to follow, patient will need outpatient follow-up if overall condition improves for right lower extremity peripheral arterial disease. The impression and plan of care has been dictated as directed. Dr. Shepard I performed a history and examination of this patient, discussed the same with the dictator. I agree with the dictator's note ,documented as a scribe. Any additional findings or plans will be noted.
--- NOTE | 2022-02-04 09:48 | CA ---
Transthoracic Echo Report Name: Juanpablo Troy Age: 61 Gender: M : 1960 Exam Date: 02/03/2022 08:10 Exam Location: [facility] Ht (in): 73 Wt (lb): 299 Ordering Physician: Derrick Mcdaniel MD Attending/Referring Phys: Certified Credit Counselor Heide Quinonez RDCS Procedure CPT: Indications: atrial flutter Cardiac Hx: Technical Quality: Fair Contrast 1: Total Dose (mL): Contrast 2: Total Dose (mL): MEASUREMENTS (Male / Female) Normal Values 2D ECHO LV Diastolic Diameter PLAX 4.3 cm 4.2 - 5.9 / 3.9 - 5.3 cm LV Systolic Diameter PLAX 3.6 cm IVS Diastolic Thickness 1.2 cm 0.6 - 1.0 / 0.6 - 0.9 cm LVPW Diastolic Thickness 1.1 cm 0.6 - 1.0 / 0.6 - 0.9 cm LV Relative Wall Thickness 0.5 RV Internal Dim ED PLAX 3.6 cm LA Systolic Diameter LX 3.1 cm 3.0 - 4.0 / 2.7 - 3.8 cm LA Volume 36.8 cm??? 18 - 58 / 22 - 52 cm??? M-MODE Aortic Root Diameter MM 3.6 cm MV E Point Septal Separation 0.5 cm AV Cusp Separation MM 2.1 cm DOPPLER AV Peak Velocity 151.6 cm/s AV Peak Gradient 9.2 mmHg AI Peak Velocity 207.4 cm/s AI Peak Gradient 17.2 mmHg AI Pressure Half Time 605.0 ms MV Area PHT 4.7 cm??? MV Deceleration Time 120.5 ms TR Peak Velocity 311.8 cm/s TR Peak Gradient 38.9 mmHg Right Ventricular Systolic Press 43.9 mmHg FINDINGS Left Ventricle Left ventricular ejection fraction is estimated at 60-65 %. Left ventricular cavity size normal. Mild concentric left ventricular hypertrophy. Right Ventricle Mild right ventricular dilatation. Mild pulmonary hypertension. Right Atrium Normal right atrial size. Left Atrium Normal left atrial size. Mitral Valve Structurally normal mitral valve. No mitral stenosis, regurgitation or prolapse. Aortic Valve Mild aortic regurgitation. Tricuspid Valve Mild tricuspid regurgitation. Pulmonic Valve Pulmonic valve not well visualized. Pericardium Normal pericardium. No pericardial effusion. Aorta Normal size aortic root and proximal ascending aorta. CONCLUSIONS Normal LV size with concentric LVH of a mild degree. Tachycardia noted. Mild mitral and tricuspid insufficiency. No pericardial effusion Previewed by: Dr. Fernando Hampton MD (Electronically Signed) Final Date: 04 February 2022 09:47
--- NOTE | 2022-02-04 10:53 | P.CONS ---
History of Present Illness - Reason for Consult Consult date: 02/04/22 wound care - History of Present Illness This is a 61-year-old patient been seen in ICU for nonhealing ulceration to the right malleolus. Patient underwent a surgical debridement and at this time utilizing Dakin's wet to dry dressing. Patient is nonresponsive. Ulceration is a stage III pressure ulcer to the right malleolus measuring up rec by 6 x 4 x 0.3 cm with significant slough throughout the wound minimal granulation. Wound edges are attached to the wound base. No tunneling or undermining noted. He periwound shows excoriation. Review of systems: Unable to obtain due to mental status Physical exam: General Appearance: Alert, cooperative, no distress, appears stated age. Skin: See HPI all other Skin color, texture, tugor normal, no rashes or lesions. Neurologic: Alert oriented x3 Assessment: 1. Stage III pressure ulcer right malleolus 2. Diabetic foot ulcer Dumont grade 3 Plan: 1. Apply Santyl, feeling was gauze, dry gauze, rolled gauze and secure with paper tape. Utilize a foam heel protector. Do not apply Dakin's solution to the site. Thank you for the consultation any questions was contact the wound care center DNP note has been reviewed and discussed with Dr. Healy and the impression and plan of care has been directed as dictated. Past Medical History Past Medical History: COPD, Diabetes Mellitus, Hyperlipidemia, Hypertension Additional Past Medical History / Comment(s): back problems, TB History of Any Multi-Drug Resistant Organisms: None Reported Additional Past Surgical History / Comment(s): plate in skull, neck surgery Past Anesthesia/Blood Transfusion Reactions: No Reported Reaction Past Psychological History: No Psychological Hx Reported Smoking Status: Current every day smoker, Heavy tobacco smoker Past Alcohol Use History: None Reported Past Drug Use History: Marijuana Medications and Allergies Home Medications Medication Instructions Recorded Confirmed Type Pregabalin [Lyrica] 200 mg PO BID #6 cap 08/28/17 01/31/22 Rx Albuterol Inhaler [Ventolin Hfa 2 puff INHALATION RT-Q6H PRN 01/31/22 01/31/22 History Inhaler] Albuterol Nebulized [Ventolin 2.5 mg INHALATION RT-Q6H PRN 01/31/22 01/31/22 History Nebulized] Atorvastatin [Lipitor] 40 mg PO HS 01/31/22 01/31/22 History HYDROcodone/APAP 7.5-325MG [[place] 1 tab PO BID PRN 01/31/22 01/31/22 History 7.5-325] Metoprolol Tartrate [Lopressor] 50 mg PO TID 01/31/22 01/31/22 History Morphine Sulfate ER [Ms Contin] 15 mg PO Q12HR 01/31/22 01/31/22 History Tiotropium [place] [Spiriva] 1 puff INHALATION RT-DAILY 01/31/22 01/31/22 History Warfarin [Coumadin] 2.5 mg PO MOFR@209901/31/22 01/31/22 History Warfarin [Coumadin] 5 mg PO SUTUWETHSA@209901/31/22 01/31/22 History buPROPion XL [Wellbutrin XL] 150 mg PO BID 01/31/22 01/31/22 History glipiZIDE [Glucotrol] 10 mg PO BID 01/31/22 01/31/22 History Allergies Allergy/AdvReac Type Severity Reaction Status Date / Time phenytoin [From Dilantin] Allergy Unknown Verified 01/31/22 11:46 Physical Exam Vitals: Vital Signs Temp Pulse Resp BP Pulse Ox 02/04/22 07:58 95 02/04/22 07:50 135 H 02/04/22 07:42 130 H 02/03/22 20:50 121 H 02/03/22 20:40 118 H 02/03/22 12:17 122 H 27 H 146/71 94 L 02/03/22 12:00 97.6 F 124 H 25 H 149/74 93 L 02/03/22 11:45 132 H 22 02/03/22 11:36 125 H 20 02/03/22 11:00 117 H 10 L 102/54 93 L Intake and Output 02/03/22 02/04/22 02/04/22 22:59 06:59 14:59 Intake Total 512.5 1425 450 Output Total 200 510 155 Balance 312.5 915 295 Intake: IV 400 1300 450 Potassium Chloride 10 meq 400 In Water For Injection 1 100ml.bag @ 100 mls/hr IVPB Q1HR [facility] Rx#: [id number] Sodium Chloride 0.9% 1, 300 800 300 000 ml @ 100 mls/hr IV . Q10H [facility] Rx#:[id number] ceFAZolin 2 gm In Sodium 100 50 Chloride 0.9% 50 ml @ 100 mls/hr IVPB Q8HR [facility] Rx# :[id number] levETIRAcetam IV 500 mg 100 100 In Sodium Chloride 0.9% 100 ml @ 400 mls/hr IVPB Q12HR [facility] Rx#:[id number] Intake, IV Titration 112.5 125 Amount Diltiazem 125 mg In 112.5 125 Sodium Chloride 0.9% 100 ml @ 15 MG/HR 15 mls/hr IV .Q8H20M [facility] Rx#: [id number] Output: Urine 200 510 155 Other: Voiding Method Indwelling Catheter Indwelling Catheter Indwelling Catheter Weight 136 kg Results CBC & Chem 7: 02/04/22 03:54 02/04/22 03:54 Labs: Abnormal Lab Results - Last 24 Hours (Table) 02/03/22 02/03/22 02/04/22 Range/Units 12:36 21:07 00:35 WBC (3.8-10.6) k/uL Hgb (13.0-17.5) gm/dL MCHC (31.0-37.0) g/dL RDW (11.5-15.5) % Neutrophils # (1.3-7.7) k/uL Lymphocytes # (1.0-4.8) k/uL PT (9.0-12.0) sec INR (<1.2) Potassium 3.1 L (3.5-5.1) mmol/L BUN (9-20) mg/dL Creatinine (0.66-1.25) mg/dL Glucose (74-99) mg/dL POC Glucose (mg/dL) 140 H 162 H (70-110) mg/dL Calcium (8.4-10.2) mg/dL 02/04/22 02/04/22 02/04/22 Range/Units 03:54 03:54 03:54 WBC 16.2 H (3.8-10.6) k/uL Hgb 12.4 L (13.0-17.5) gm/dL MCHC 30.3 L (31.0-37.0) g/dL RDW 16.1 H (11.5-15.5) % Neutrophils # 14.7 H (1.3-7.7) k/uL Lymphocytes # 0.5 L (1.0-4.8) k/uL PT 15.5 H (9.0-12.0) sec INR 1.5 H (<1.2) Potassium (3.5-5.1) mmol/L BUN 36 H (9-20) mg/dL Creatinine 1.84 H (0.66-1.25) mg/dL Glucose 139 H (74-99) mg/dL POC Glucose (mg/dL) (70-110) mg/dL Calcium 7.7 L (8.4-10.2) mg/dL 02/04/22 Range/Units 06:26 WBC (3.8-10.6) k/uL Hgb (13.0-17.5) gm/dL MCHC (31.0-37.0) g/dL RDW (11.5-15.5) % Neutrophils # (1.3-7.7) k/uL Lymphocytes # (1.0-4.8) k/uL PT (9.0-12.0) sec INR (<1.2) Potassium (3.5-5.1) mmol/L BUN (9-20) mg/dL Creatinine (0.66-1.25) mg/dL Glucose (74-99) mg/dL POC Glucose (mg/dL) 142 H (70-110) mg/dL Calcium (8.4-10.2) mg/dL Microbiology - Last 24 Hours (Table) 01/31/22 21:47 Blood Culture Gram Stain - Final Blood Blood Culture - Final Staphylococcus aureus 01/31/22 18:55 Blood Culture Gram Stain - Final Blood Blood Culture - Preliminary Staphylococcus aureus Staphylococcus epidermidis 02/01/22 08:55 Blood Culture Gram Stain - Preliminary Blood Blood Culture - Preliminary Presumptive Staph aureus 01/31/22 06:45 Anaerobic Culture - Preliminary Ankle - Right Lynda albicans Assessment and Plan (1) Pressure ulcer of right ankle, stage 3 Current Visit: Yes Status: Acute Code(s): L89.513 - PRESSURE ULCER OF RIGHT ANKLE, STAGE 3 SNOMED Code(s): 67675940238044 (2) Type 2 diabetes mellitus with foot ulcer Current Visit: Yes Status: Acute Code(s): E11.621 - TYPE 2 DIABETES MELLITUS WITH FOOT ULCER; L97.509 - NON-PRESSURE CHRONIC ULCER OTH PRT UNSP FOOT W UNSP SEVERITY SNOMED Code(s): 474824769
--- NOTE | 2022-02-04 11:12 | P.PN ---
Subjective Progress Note Date: 02/04/22 Principal diagnosis: Multiple right-sided rib fractures and a right sided pulmonary contusion with compression fractures of lumbar spine This is a extremely debilitated 61-year-old male patient who is known to monitor milligrams and comorbidities and I was asked to evaluate this patient because of a fall and limited hemoptysis. The patient is known to have a combination of i ssues including diabetes mellitus and diabetic peripheral neuropathy and the patient has had previous episodes of falls and he has issues with chronic atrial flutter maintained on long-term anticoagulation with warfarin. He is morbidly obese. He has hypertension and hyperlipidemia as comorbid conditions along with chronic kidney disease. He is morbidly obese. He has history of COPD and is a chronic smoker. He comes in to the hospital after he had a fall at home. He was the bathroom and he slept and he landed on his left chest. Here in the hospital, the patient was found to be Coumadin toxic and his INR was above 10. He did have some limited hemoptysis and coffee-ground emesis without any melanotic stools. No abdominal pain. He was noted to have a large ulcer over the right ankle/malleolus area which is a chronic wound. Immediately the patient was given vitamin K. This computed tomography scan of the chest shows some right lateral eighth through 10th rib fractures with trace amount of right- sided pleural effusion and right basilar atelectasis related to underlying pulmonary contusion. No evidence of any pneumothorax. Some limited patchy airspace disease in the left upper lobe probably inflammatory in the same time the patient had dilated pulmonary arteries indicating possibility of pulmonary hypertension and a fluid and gas-filled distended stomach. I noted the patient has not had a CAT scan of the brain and a CAT scan was done that showed no acute intracranial process. There was a remote left occipital lobe injury along with some nonspecific white matter changes secondary to chronic microangiopathy. This computed tomography scan of the lumbar spine showed acute anterior wedge compression deformity of L1 vertebral body with a 30% loss in height along with multilevel degenerative disc changes and a 7 mm In the right pelvis. Patient was already seen by general surgery and orthopedic surgery. Lumbar spine x-ray that was done on 2021 showed no acute fracture. The patient was also seen by vascular surgery for a right lateral foot wound and this is a stage II wound 8.5 x 4 cm in size. Debridement was done by vascular surgery. On 02/02/2022, the patient is confused which is unchanged compared to yesterday. CAT scan of the brain was done yesterday showed no acute abnormalities. He did not have any further episodes of hemoptysis. His coagulopathy was reversed. I noted some coffee-ground emesis yesterday and subsequently developed some ab dominal distention and ileus was suspected. NG tube was inserted. On multiple occasions, he pulled out his NG tube. This morning, NG tube is in place and the total amount of output is in order of 25 mL since morning and he does have some old retained coffee-ground material in the canister since yesterday in the order of 200 mL. Abdomen is soft. He is laying comfortably in bed. He is off anti coagulation for now. He is an IV fluids and currently receiving 0.9 at a rate of 100 mL an hour. He is also on a Cardizem drip for atrial flutter with RVR. His heart rates currently is in order of 130 beats per minute. He is still tachycardic. The Cardizem rate accordingly was increased and is being adjusted and titrated by cardiology.The white cell count is at 17.7 hemoglobin 15.3 and a platelet count of 166, the patient also has a sodium level of 136, potassium is being replaced is currently down to 3 and a BUN is at 29 with a creatinine of 1.62. Serum bicarbs at 23. Correlation profile is normalized. The patient only on Lovenox for DVT prophylaxis. Reevaluated today on 02/03/22, patient remains in the ICU, presently on 2 L nasal cannula, patient remains unresponsive to any stimuli including deep painful stimuli. Patient remains obtunded, he has a Glascow coma score of 3, speech and language could not be assessed. Patient is having multifocal myoclonic twitching. Mostly the facial region. Seen by neurology this morning, felt to have acute metabolic encephalopathy, EEG did not reveal any evidence of epileptiform activity. EEG was suggestive of metabolic encephalopathy patient was kept on Keppra for now. Suggesting MRI of the brain to rule out CVA. And recommending that the patient goes back on anticoagulation for atrial fibrillation when medically cleared. Pulmonary-[place], the patient is basically the same, he does have fractures but does not seem to be compromising his oxygenation. Patient is on 2 L nasal cannula, and O2 saturation is in the 90s. He is on Cardizem at 15 mg per hour for his atrial fibrillation. 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 Blood cultures have been positive for presumptive staph aureus. These have been positive since admission. Cultures from right ankle 1 showed Staphylococcus aureus and strep agalactiae group B, patient is being followed by infectious disease on the case Reevaluated today on 02/04/22, patient remains in the ICU, he is on 2 L nasal cannula. Patient remains obtunded. Continues to have positive blood cultures, staph aureus and staph epidermidis. Remains on antibiotics as per infectious disease on the case. Continues to have a Glascow coma score of 3. Patient continues to have multiple myoclonic twitching in the face. He is not waking up even with deep painful stimuli. Patient remains very encephalopathic. Not much of a change in the last 24 hours. Repeat blood cultures today are pending but he had positive blood cultures from 01/31 and from 02/01. Patient may have to be considered for possible TIFFANI if his blood cultures remain positive. His right foot wound culture is also positive for staph aureus and for Streptococcus group B. Patient is being followed by many consultants including cardiology and infectious disease and neurology. His neurological status seems to be quite concerning. WBC count today is 16.2 hemoglobin is 12.4 7 normal BUN is 36 creatinine 1.84 Objective - Vital Signs Vital signs: Vital Signs Temp 97.6 F 02/03/22 12:00 Pulse 135 H 02/04/22 07:50 Resp 27 H 02/03/22 12:17 BP 146/71 02/03/22 12:17 Pulse Ox 95 02/04/22 07:58 FiO2 Intake & Output 02/03/22 02/04/22 02/04/22 18:59 06:59 18:59 Intake Total 625 1937.5 550 Output Total 325 710 215 Balance 300 1227.5 335 Weight 136 kg Intake: IV 500 1700 550 Potassium Chloride 10 meq 400 In Water For Injection 1 100ml.bag @ 100 mls/hr IVPB Q1HR [facility] Rx#: [id number] Sodium Chloride 0.9% 1, 500 1100 400 000 ml @ 100 mls/hr IV . Q10H [facility] Rx#:[id number] ceFAZolin 2 gm In Sodium 100 50 Chloride 0.9% 50 ml @ 100 mls/hr IVPB Q8HR [facility] Rx# :[id number] levETIRAcetam IV 500 mg 100 100 In Sodium Chloride 0.9% 100 ml @ 400 mls/hr IVPB Q12HR [facility] Rx#:[id number] Intake, IV Titration 125 237.5 Amount Diltiazem 125 mg In 125 237.5 Sodium Chloride 0.9% 100 ml @ 15 MG/HR 15 mls/hr IV .Q8H20M [facility] Rx#: [id number] Output: Urine 325 710 215 Other: Voiding Method Indwelling Catheter Indwelling Catheter Indwelling Catheter - Exam GENERAL: Revealed a 61-year-old white male, obtunded, in no distress. On 2 L nasal cannula. Head atraumatic, normocephalic. EYES: Pupils equal. Conjunctiva normal. HEENT: External appearance of nose and ears normal, oral cavity grossly normal. NECK: JVD not raised; masses not palpable. HEART: Normal S1 and S2, no S3 gallop, irregular rhythm. LUNGS: Diminished breath sounds and crackles at the bases. ABDOMEN: Soft, distended, no megaly no rebound no guarding PSYCH: Cannot be assessed, patient is quite obtunded. DERMATOLOGICAL: Large wound around the lateral malleolus right foot Gangrene Changes, wrapped with sterile dressing. MUSCULOSKELETAL:No Clubbing/cyanosis;muscles-grossly intact, NEUROLOGICAL: As noted earlier, patient has a Glascow coma score of 3, unresponsive to any stimuli, please refer to full neurological evaluation. - Labs CBC & Chem 7: 02/04/22 03:54 02/04/22 03:54 Labs: Abnormal Lab Results - Last 24 Hours (Table) 02/03/22 02/03/22 02/04/22 Range/Units 12:36 21:07 00:35 WBC (3.8-10.6) k/uL Hgb (13.0-17.5) gm/dL MCHC (31.0-37.0) g/dL RDW (11.5-15.5) % Neutrophils # (1.3-7.7) k/uL Lymphocytes # (1.0-4.8) k/uL PT (9.0-12.0) sec INR (<1.2) Potassium 3.1 L (3.5-5.1) mmol/L BUN (9-20) mg/dL Creatinine (0.66-1.25) mg/dL Glucose (74-99) mg/dL POC Glucose (mg/dL) 140 H 162 H (70-110) mg/dL Calcium (8.4-10.2) mg/dL 02/04/22 02/04/22 02/04/22 Range/Units 03:54 03:54 03:54 WBC 16.2 H (3.8-10.6) k/uL Hgb 12.4 L (13.0-17.5) gm/dL MCHC 30.3 L (31.0-37.0) g/dL RDW 16.1 H (11.5-15.5) % Neutrophils # 14.7 H (1.3-7.7) k/uL Lymphocytes # 0.5 L (1.0-4.8) k/uL PT 15.5 H (9.0-12.0) sec INR 1.5 H (<1.2) Potassium (3.5-5.1) mmol/L BUN 36 H (9-20) mg/dL Creatinine 1.84 H (0.66-1.25) mg/dL Glucose 139 H (74-99) mg/dL POC Glucose (mg/dL) (70-110) mg/dL Calcium 7.7 L (8.4-10.2) mg/dL 02/04/22 Range/Units 06:26 WBC (3.8-10.6) k/uL Hgb (13.0-17.5) gm/dL MCHC (31.0-37.0) g/dL RDW (11.5-15.5) % Neutrophils # (1.3-7.7) k/uL Lymphocytes # (1.0-4.8) k/uL PT (9.0-12.0) sec INR (<1.2) Potassium (3.5-5.1) mmol/L BUN (9-20) mg/dL Creatinine (0.66-1.25) mg/dL Glucose (74-99) mg/dL POC Glucose (mg/dL) 142 H (70-110) mg/dL Calcium (8.4-10.2) mg/dL Microbiology - Last 24 Hours (Table) 01/31/22 21:47 Blood Culture Gram Stain - Final Blood Blood Culture - Final Staphylococcus aureus 01/31/22 18:55 Blood Culture Gram Stain - Final Blood Blood Culture - Preliminary Staphylococcus aureus Staphylococcus epidermidis 02/01/22 08:55 Blood Culture Gram Stain - Preliminary Blood Blood Culture - Preliminary Presumptive Staph aureus 01/31/22 06:45 Anaerobic Culture - Preliminary Ankle - Right Lynda albicans Assessment and Plan Assessment: Impression: Right sided rib fractures, traumatic, secondary to fall, Right sided pulmonary contusion. Anterior wedge compression deformity of the vertebral spine. Hemoptysis secondary to contusion and exacerbated by Coumadin coagulopathy Underlying COPD and chronic smoking Coumadin toxicity with INR above 10 on admission, recovered History of frequent falls. Metabolic encephalopathy, acute, being addressed by neurology on the case. Chronic atrial fibrillation. Chronic kidney disease stage III. Stage II right ankle wound requiring debridement and positive for staph aureus and strep agalactiae Positive bacteremia, most likely source is the one, being addressed by infectious disease on the case, Diabetic peripheral neuropathy The genital joint disease History of Nephrolithiasis with right renal calculus 7 mm in size the right renal pelvis Recommendation: Continue to monitor in the ICU Consider MRI of the brain. This is to be addressed by neurology on the case Continue antibiotics for his gram-positive bacteremia may have to consider TIFFANI if the patient continues to have positive blood cultures in spite of antibiotics. Cardiology is on board. Continue incentive spirometry Continue GI and DVT prophylaxis Continue Keppra Continue amiodarone. Patient is on amiodarone drip at present as ordered by cardiology. Continue anticoagulation therapy Prognosis is extremely poor and guarded We will continue to follow. Time with Patient: Less than 30
[2022-02-04] MEDS: AMIODARONE 450 MG in DEXTROSE 5% IN WATER 250 ML IV SCH ×2 (11:22)
[2022-02-04 11:34] LABS: Glucose,Whole Blood 147 mg/dL (70-110)
--- NOTE | 2022-02-04 13:28 | P.PN ---
Subjective Progress Note Date: 02/04/22 Patient was seen for a follow-up. Patient's significant other/girlfriend was present, whom he lives with. She states that patient has frequent falls for last 2 years for which he uses a walker. Without walker, his legs give out and he falls. He has broke one leg, and fractured the other. She believes that he may had a bedsore in the right ankle for 2 days prior to arrival. Then she saw a red line going up the leg. There is no fever or chills. She says that he fell at home going to the bathroom just prior to arrival to the hospital. Patient's mentation was fine when he arrived. However mentation has progressively got worse while in the hospital. Objective - Vital Signs Vital signs: Vital Signs Temp 97.6 F 02/03/22 12:00 Pulse 138 H 02/04/22 11:13 Resp 27 H 02/03/22 12:17 BP 146/71 02/03/22 12:17 Pulse Ox 95 02/04/22 07:58 FiO2 Intake & Output 02/03/22 02/04/22 02/04/22 18:59 06:59 18:59 Intake Total 625 1937.5 550 Output Total 325 710 215 Balance 300 1227.5 335 Weight 136 kg Intake: IV 500 1700 550 Potassium Chloride 10 meq 400 In Water For Injection 1 100ml.bag @ 100 mls/hr IVPB Q1HR CRUZ Rx#: [id number] Sodium Chloride 0.9% 1, 500 1100 400 000 ml @ 100 mls/hr IV . Q10H CRUZ Rx#:[id number] ceFAZolin 2 gm In Sodium 100 50 Chloride 0.9% 50 ml @ 100 mls/hr IVPB Q8HR CRUZ Rx# :[id number] levETIRAcetam IV 500 mg 100 100 In Sodium Chloride 0.9% 100 ml @ 400 mls/hr IVPB Q12HR CRUZ Rx#:[id number] Intake, IV Titration 125 237.5 Amount Diltiazem 125 mg In 125 237.5 Sodium Chloride 0.9% 100 ml @ 15 MG/HR 15 mls/hr IV .Q8H20M CRUZ Rx#: [id number] Output: Urine 325 710 215 Other: Voiding Method Indwelling Catheter Indwelling Catheter Indwelling Catheter - Exam Patient continues to be very encephalopathic. Still having myoclonic jerking of his facial region, arms and legs. Examination is unchanged. No improvement. His neck is supple. On passive elevation of his one or the other leg produces no obviously visible pain, headache or any stiffness. No meningeal signs otherwise. - Labs CBC & Chem 7: 02/04/22 03:54 02/04/22 03:54 Labs: Abnormal Lab Results - Last 24 Hours (Table) 02/03/22 02/03/22 02/04/22 Range/Units 12:36 21:07 00:35 WBC (3.8-10.6) k/uL Hgb (13.0-17.5) gm/dL MCHC (31.0-37.0) g/dL RDW (11.5-15.5) % Neutrophils # (1.3-7.7) k/uL Lymphocytes # (1.0-4.8) k/uL PT (9.0-12.0) sec INR (<1.2) Potassium 3.1 L (3.5-5.1) mmol/L BUN (9-20) mg/dL Creatinine (0.66-1.25) mg/dL Glucose (74-99) mg/dL POC Glucose (mg/dL) 140 H 162 H (70-110) mg/dL Calcium (8.4-10.2) mg/dL 02/04/22 02/04/22 02/04/22 Range/Units 03:54 03:54 03:54 WBC 16.2 H (3.8-10.6) k/uL Hgb 12.4 L (13.0-17.5) gm/dL MCHC 30.3 L (31.0-37.0) g/dL RDW 16.1 H (11.5-15.5) % Neutrophils # 14.7 H (1.3-7.7) k/uL Lymphocytes # 0.5 L (1.0-4.8) k/uL PT 15.5 H (9.0-12.0) sec INR 1.5 H (<1.2) Potassium (3.5-5.1) mmol/L BUN 36 H (9-20) mg/dL Creatinine 1.84 H (0.66-1.25) mg/dL Glucose 139 H (74-99) mg/dL POC Glucose (mg/dL) (70-110) mg/dL Calcium 7.7 L (8.4-10.2) mg/dL 02/04/22 02/04/22 Range/Units 06:26 11:32 WBC (3.8-10.6) k/uL Hgb (13.0-17.5) gm/dL MCHC (31.0-37.0) g/dL RDW (11.5-15.5) % Neutrophils # (1.3-7.7) k/uL Lymphocytes # (1.0-4.8) k/uL PT (9.0-12.0) sec INR (<1.2) Potassium (3.5-5.1) mmol/L BUN (9-20) mg/dL Creatinine (0.66-1.25) mg/dL Glucose (74-99) mg/dL POC Glucose (mg/dL) 142 H 147 H (70-110) mg/dL Calcium (8.4-10.2) mg/dL Microbiology - Last 24 Hours (Table) 01/31/22 21:47 Blood Culture Gram Stain - Final Blood Blood Culture - Final Staphylococcus aureus 01/31/22 18:55 Blood Culture Gram Stain - Final Blood Blood Culture - Preliminary Staphylococcus aureus Staphylococcus epidermidis 02/01/22 08:55 Blood Culture Gram Stain - Preliminary Blood Blood Culture - Preliminary Presumptive Staph aureus 01/31/22 06:45 Anaerobic Culture - Preliminary Ankle - Right Lynda albicans Assessment and Plan Assessment: * Acute metabolic encephalopathy. Patient showing multifocal myoclonic twitching involving facial region, and in the extremities. These myoclonic twitching are asynchronous, multifocal, therefore probably metabolic rather than epileptic. EEG did not reveal any clearcut epileptiform activity. Showed some triphasic waves, suggestive of metabolic encephalopathy. * Septicemia with staph aureus. * Status post fall with L1 compression fracture * Moderate renal insufficiency * Coagulopathy * Right sided rib fractures secondary to fall. * Atrial fibrillation on long-term anticoagulation with Coumadin. * Peripheral edema. * Long-standing history of frequent falls, uses walker * COPD * Chronic tobacco use * Diabetes with hemoglobin A1c 8.1 * Probable diabetic peripheral neuropathy. * Peripheral arterial disease Plan: * EEG 02/03/2022 did not reveal any status epilepticus. Some background slowing, with triphasic waves suggestive of metabolic encephalopathy. Lot of myogenic activity precluding optimal evaluation of brain waves. * Continue Keppra for now. * Medical management as per IM and critical care. * Patient on MS Contin and Dilaudid. Suggest limiting the amount of opiates, which could be contributing to myoclonic twitching/jerking. * Patient has septicemia with staph aureus. ID following patient currently on cefazolin 2 g IV PB every 8 hours. ID following. * Await MRI of the brain rule out CVA. * Carotid Doppler completed, results pending. * Patient has atrial fibrillation. Patient on Coumadin, INR subtherapeutic at this time 1.5. Consider bridging with Lovenox or heparin. * Discussed with patient's significant other.
--- NOTE | 2022-02-04 14:21 | P.PN ---
Subjective Progress Note Date: 02/04/22 CHIEF COMPLAINT: Upper GI bleeding HISTORY OF PRESENT ILLNESS: Patient remains in the ICU. He remains contended. He is on 2 L of oxygen. He does have positive blood cultures. Patient being evaluated for possible TIFFANI. He has a right foot wound. Patient has had no further upper GI bleed. NG tube output has been minimal and brownish in color. Abdomen is distended but soft. No bowel movement reported. Afebrile. PHYSICAL EXAM: VITAL SIGNS: Reviewed. ABDOMEN: Soft. Distended NEUROLOGIC: Obtunded ASSESSMENT: 1. Upper GI bleed 2. Ileus 3. Altered mental status PLAN: -Continue ICU management -Continue supportive care -Continue to monitor -Continue NG tube for decompression Physician [facility] Manager note has been reviewed by physician. Signing provider agrees with the documented findings, assessment, and plan of care. Objective - Vital Signs Vital signs: Vital Signs Temp 97.6 F 02/03/22 12:00 Pulse 138 H 02/04/22 11:13 Resp 27 H 02/03/22 12:17 BP 146/71 02/03/22 12:17 Pulse Ox 92 L 02/04/22 12:00 FiO2 Intake & Output 02/03/22 02/04/22 02/04/22 18:59 06:59 18:59 Intake Total 625 1937.5 750 Output Total 325 710 325 Balance 300 1227.5 425 Weight 136 kg 136 kg Intake: IV 500 1700 750 Potassium Chloride 10 meq 400 In Water For Injection 1 100ml.bag @ 100 mls/hr IVPB Q1HR CRUZ Rx#: [id number] Sodium Chloride 0.9% 1, 500 1100 600 000 ml @ 100 mls/hr IV . Q10H CRUZ Rx#:[id number] ceFAZolin 2 gm In Sodium 100 50 Chloride 0.9% 50 ml @ 100 mls/hr IVPB Q8HR [facility]UZ Rx# :[id number] levETIRAcetam IV 500 mg 100 100 In Sodium Chloride 0.9% 100 ml @ 400 mls/hr IVPB Q12HR CRUZ Rx#:[id number] Intake, IV Titration 125 237.5 Amount Diltiazem 125 mg In 125 237.5 Sodium Chloride 0.9% 100 ml @ 15 MG/HR 15 mls/hr IV .Q8H20M CRUZ Rx#: [id number] Output: Urine 325 710 325 Other: Voiding Method Indwelling Catheter Indwelling Catheter Indwelling Catheter - Labs CBC & Chem 7: 02/04/22 03:54 02/04/22 03:54 Labs: Abnormal Lab Results - Last 24 Hours (Table) 02/03/22 02/04/22 02/04/22 Range/Units 21:07 00:35 03:54 WBC 16.2 H (3.8-10.6) k/uL Hgb 12.4 L (13.0-17.5) gm/dL MCHC 30.3 L (31.0-37.0) g/dL RDW 16.1 H (11.5-15.5) % Neutrophils # 14.7 H (1.3-7.7) k/uL Lymphocytes # 0.5 L (1.0-4.8) k/uL PT (9.0-12.0) sec INR (<1.2) Potassium 3.1 L (3.5-5.1) mmol/L BUN (9-20) mg/dL Creatinine (0.66-1.25) mg/dL Glucose (74-99) mg/dL POC Glucose (mg/dL) 162 H (70-110) mg/dL Calcium (8.4-10.2) mg/dL 02/04/22 02/04/22 02/04/22 Range/Units 03:54 03:54 06:26 WBC (3.8-10.6) k/uL Hgb (13.0-17.5) gm/dL MCHC (31.0-37.0) g/dL RDW (11.5-15.5) % Neutrophils # (1.3-7.7) k/uL Lymphocytes # (1.0-4.8) k/uL PT 15.5 H (9.0-12.0) sec INR 1.5 H (<1.2) Potassium (3.5-5.1) mmol/L BUN 36 H (9-20) mg/dL Creatinine 1.84 H (0.66-1.25) mg/dL Glucose 139 H (74-99) mg/dL POC Glucose (mg/dL) 142 H (70-110) mg/dL Calcium 7.7 L (8.4-10.2) mg/dL 02/04/22 Range/Units 11:32 WBC (3.8-10.6) k/uL Hgb (13.0-17.5) gm/dL MCHC (31.0-37.0) g/dL RDW (11.5-15.5) % Neutrophils # (1.3-7.7) k/uL Lymphocytes # (1.0-4.8) k/uL PT (9.0-12.0) sec INR (<1.2) Potassium (3.5-5.1) mmol/L BUN (9-20) mg/dL Creatinine (0.66-1.25) mg/dL Glucose (74-99) mg/dL POC Glucose (mg/dL) 147 H (70-110) mg/dL Calcium (8.4-10.2) mg/dL Microbiology - Last 24 Hours (Table) 01/31/22 06:45 Anaerobic Culture - Preliminary Ankle - Right Lynda albicans 01/31/22 21:47 Blood Culture Gram Stain - Final Blood Blood Culture - Final Staphylococcus aureus 01/31/22 18:55 Blood Culture Gram Stain - Final Blood Blood Culture - Preliminary Staphylococcus aureus Staphylococcus epidermidis 02/01/22 08:55 Blood Culture Gram Stain - Preliminary Blood Blood Culture - Preliminary Presumptive Staph aureus
--- NOTE | 2022-02-04 15:47 | P.PN ---
Progress Note - Text Progress Note Date: 02/03/22 This is a 61-year-old patient who follows with Dr. Sridhar Chan. Chronic stable medical conditions include diabetes, hypertension, hyperlipidemia, chronic low back problems, cigarette smoker. At the baseline uses a walker. Patient slipped in the bathroom falling on his buttock. Was not able to get up. By the EMS report he had fallen 24 hours prior to the picking him up. Patient been complaining of pain in the right rib cage in the lower back. X-ray was negative for fracture. Patient continued to have significant pain especially with deep breathing. Patient also had a congestive cough and wheezing. Some bloody sputum. Denies any fever and chills. Patient also complaining of urina ry retention and requesting a Shepard catheter. at the bedside. No fever no chills. Orthopedics consulted for the same. Patient normally has a bowel movement once a week. Patient also has a wound on the right foot lateral part of the ankles for about a week. Ischemic changes. From rubbing against a bedpost. Patient's INR in the ER was greater than 10. Was given vitamin K. 10 mg Patient bit with Coumadin toxicity, given vitamin K, acute COPD exacerbation, uncontrolled atrial flutter put on Lopressor, right chest wall pain. Computed tomography scan lumbar spine and chest was ordered. Large wound on the right lateral malleolus-ID and vascular consulted.. IV cefepime. February 01: Patient yesterday to see refused his computed tomography scan of the chest and lumbar spine. Done today. Right-sided rib fractures, pulmonary contusion confirm. L1 vertebral body 30% wedge compression fracture. Patient's girlfriend the bedside. It was discussed in detail with her. Patient wanting again and again to pull out his NG tube. Requests the to stay with the patient. Patient is also had the dark aspirate from the stomach for which she has NG tube. Surgery was consulted for the same. Also this morning right foot wound was debrided by Dr. Ibarra from vascular. Wound base was relatively clean. No undermining or tunneling. February 02: Delirious. NG tube to suction. Has been in restraints because point NG TUBE several times. Mumbling to himself. Dressing over the right ankle. Not in distress. Ileus. Chest x-ray showing right lower lobe/atelectasis. February 03: Hospital computer system was down. Patient remains delirious. Nasal cannula. Lethargic. Family the bedside. Antibiotics. A. fib uncontrolled. EEG evidence of metabolic encephalopathy. No clear-cut epileptiform activity. Started on Keppra by neurology. Current medications reviewed Past medical history to include: COPD, diabetes, hypertension, hyperlipidemia, back problems, TB, atrial fibrillation, on Coumadin Social history: Smokes a pack a day for close to 50 years. Stop doing alcohol some time ago. Lives with his significant other Sandra. Does use a walker. 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 Conjunctiva normal. HEENT: External appearance of nose and ears normal, oral cavity dry, NG tube NECK: JVD not raised; masses not palpable. HEART: Heart sounds irregular; mild edema. LUNGS: Respiratory rate increased; decreased breath sound, prolonged expiration, coarse crackles. ABDOMEN: Soft, distended, nontender, liver spleen not palpable, no masses palpable. PSYCH: Unable to assess, patient delirious. DERMATOLOGICAL: Wound on right ankle lateral malleolus. Under dressing INVESTIGATIONS, reviewed in the clinical context: EEG: Evidence of encephalopathy. No obvious epileptiform activity. 2-D echocardiogram: EF 60-65%. February 03: WBC 18.5, hemoglobin 12.5 potassium 3.2, BUN 35, creatinine 1.77 February 02: CBC 7.5 hemoglobin 13.3 platelets 166 potassium 3 view and 29 creatinine 1.6 to Renal ultrasound: Shows bilateral normal cortical medullary thickness. February 01: WBC 17.1 hemoglobin 14.8 UA: Blood large, leukoesterase moderate WBC 28 nitrite negative Lumbar spine CT: Anterior wedge compression deformity of L1. Multiple level DJD. 7 mm calculus right renal pelvis. CT chest without contrast: Right lateral eighth through 10th rib fractures with associated gas trace hemothorax right lower lobe pulmonary contusion/atelectasis. Patchy) disease left upper lobe. WBC 25.8 hemoglobin 14.1 platelets 217 INR greater than 10 sodium 131 potassium 3.9. 24 creatinine 1.8 to EKG tracing personally reviewed by mn-atrial flutter. Rate 132 Foot/Lumbar/sacral coccyx: Spondylitic changes. No fracture. Chest x-ray film personally reviewed by me-clinically. Possible hyperinflation Assessment and plan: -Coumadin toxicity. INR greater than 10.: Improved 10 mg vitamin K in the ER. Hemoptysis on presentation. Hold further anticoagulation. - right lung contusion.-Secondary to fall/hip fracture. hemoptysis on presentation Incentive spirometry -Acute COPD exacerbation, with chronic bronchitis component in a current smoker: Slow to respond DuoNeb. Nebulized Pulmicort. Mucinex. -Chronic nicotine dependence, cigarette smoker Nicotine patch 21 -Persistent atrial flutter, uncontrolled Lopressor 50 mg 3 times a day. 2-D echocardiogram unremarkable. Cardiology consultation. Not a candidate for anticoagulation because of falls/pulmonary contusion hemoptysis. IV Cardizem drip. -Possible CK D with possible acute component. creatinine was 0.8 in April 2019. Renal ultrasound unremarkable. UA shows trace protein. IV fluids.. -Acute right-sided 8-10 ribs fracture secondary to fall K pad -Diabetes mellitus type 2, chronically on oral hypoglycemic Hold Glucotrol. Sliding scale insulin. Levemir 14 units daily at bedtime -Diabetic peripheral neuropathy Decreased dose of Lyrica in the setting of renal failure. 100 mg twice a day -Chronic low back pain: MS Contin 15 mg every 12, [place] 7.5 twice a day when necessary -Anxiety depression not otherwise specified Wellbutrin XL 100 mg twice a day -Hyperlipidemia Lipitor 40 mg daily at bedtime -Right ankle lateral, diabetic wound, stage II acute IV cefepime. ID consulted. Patient has poor distal pulses. February 01 wound was debrided by Dr. Ibarra. Clean base. -Acute L1 30% wedge fracture secondary to fall LSO brace. Be followed by Dr. Damon -Acute delirium multifactorial. Not improving IV cefepime. IV Cardizem drip. IV fluids. Dressing to the right ankle. NG tube to suction. Discussed with family at the bedside. Prognosis guarded.
--- NOTE | 2022-02-04 15:53 | P.PN ---
Progress Note - Text Progress Note Date: 02/04/22 This is a 61-year-old patient who follows with Dr. Sridhar Chan. Chronic stable medical conditions include diabetes, hypertension, hyperlipidemia, chronic low back problems, cigarette smoker. At the baseline uses a walker. Patient slipped in the bathroom falling on his buttock. Was not able to get up. By the EMS report he had fallen 24 hours prior to the picking him up. Patient been complaining of pain in the right rib cage in the lower back. X-ray was negative for fracture. Patient continued to have significant pain especially with deep breathing. Patient also had a congestive cough and wheezing. Some bloody sputum. Denies any fever and chills. Patient also complaining of urina ry retention and requesting a Shepard catheter. at the bedside. No fever no chills. Orthopedics consulted for the same. Patient normally has a bowel movement once a week. Patient also has a wound on the right foot lateral part of the ankles for about a week. Ischemic changes. From rubbing against a bedpost. Patient's INR in the ER was greater than 10. Was given vitamin K. 10 mg Patient bit with Coumadin toxicity, given vitamin K, acute COPD exacerbation, uncontrolled atrial flutter put on Lopressor, right chest wall pain. Computed tomography scan lumbar spine and chest was ordered. Large wound on the right lateral malleolus-ID and vascular consulted.. IV cefepime. February 01: Patient yesterday to see refused his computed tomography scan of the chest and lumbar spine. Done today. Right-sided rib fractures, pulmonary contusion confirm. L1 vertebral body 30% wedge compression fracture. Patient's girlfriend the bedside. It was discussed in detail with her. Patient wanting again and again to pull out his NG tube. Requests the to stay with the patient. Patient is also had the dark aspirate from the stomach for which she has NG tube. Surgery was consulted for the same. Also this morning right foot wound was debrided by Dr. Ibarra from vascular. Wound base was relatively clean. No undermining or tunneling. February 02: Delirious. NG tube to suction. Has been in restraints because point NG TUBE several times. Mumbling to himself. Dressing over the right ankle. Not in distress. Ileus. Chest x-ray showing right lower lobe/atelectasis. February 03: Hospital computer system was down. Patient remains delirious. Nasal cannula. Lethargic. Family the bedside. Antibiotics. A. fib uncontrolled. EEG evidence of metabolic encephalopathy. No clear-cut epileptiform activity. Started on Keppra by neurology. February 04: ICU: Girlfriend at the bedside. In atrial fibrillation uncontrolled. On IV Cardizem and IV amiodarone. NG tube to suction. Patient lethargic. Multiple breathing. 2 L. Oxygen Active Medications Acetaminophen (Acetaminophen Tab 325 Mg Tab) 650 mg PO Q6HR PRN PRN Reason: Mild Pain or Fever > 100.5 Albuterol/Ipratropium (Ipratropium-Albuterol 3 Ml Neb) 3 ml INHALATION RT-QID [facility] Last Admin: 02/04/22 15:04 Dose: 3 ml Budesonide (Budesonide 1 Mg/2 Ml Nebu) 1 mg INHALATION RT-BID [facility] Last Admin: 02/04/22 07:42 Dose: 1 mg Calcium Carbonate/Glycine (Calcium Carbonate 500 Mg Chewable) 1,000 mg PO Q4HR PRN PRN Reason: Dyspepsia Last Admin: 01/31/22 14:29 Dose: 1,000 mg Collagenase (Collagenase 250 Unit/Gm Ointment 30 Gm Tube) 1 applic TOPICAL DAILY [facility]; Protocol Dextrose/Water (Dextrose 50% Syringe 50 Ml) 25 ml IVP PER PROTOCOL PRN; Protocol PRN Reason: Hypoglycemia Dextrose/Water (Dextrose 50% Syringe 50 Ml) 50 ml IVP PER PROTOCOL PRN; Protocol PRN Reason: Hypoglycemia Guaifenesin (Guaifenesin 600 Mg Tablet.Er) 600 mg PO QID [facility] Last Admin: 02/04/22 12:57 Dose: Not Given Hydromorphone HCl (Hydromorphone 0.5 Mg/0.5 Ml Syringe) 0.5 mg IVP Q3HR PRN PRN Reason: Pain Last Admin: 02/03/22 03:43 Dose: 0.5 mg Sodium Chloride (Saline 0.9%) 1,000 mls @ 100 mls/hr IV .Q10H [facility] Last Admin: 02/04/22 11:23 Dose: 100 mls/hr Levetiracetam 500 mg/ Sodium (Chloride) 105 mls @ 400 mls/hr IVPB Q12HR [facility] Last Admin: 02/04/22 08:25 Dose: 400 mls/hr Cefazolin Sodium 2 gm/ Sodium (Chloride) 50 mls @ 100 mls/hr IVPB Q8HR [facility]; Protocol Last Admin: 02/04/22 08:25 Dose: 100 mls/hr Amiodarone HCl 450 mg/ (Dextrose/Water) 250 mls @ 16.667 mls/hr IV .Q15H [facility]; Protocol Stop: 02/05/22 04:59 Last Admin: 02/04/22 11:22 Dose: 0.5 mg/min, 16.667 mls/hr Diltiazem HCl 125 mg/ Sodium (Chloride) 125 mls @ 10 mls/hr IV .[id number] [facility] Last Admin: 02/04/22 11:22 Dose: 10 mg/hr, 10 mls/hr Insulin Aspart (Insulin Aspart (Novolog) 100 Unit/Ml Vial) 0 unit SQ AC-TID [facility]; Protocol Last Admin: 02/04/22 12:51 Dose: Not Given Insulin Detemir (Insulin Detemir (Levemir) 100 Unit/Ml Syr) 14 unit SQ HS [facility] Last Admin: 02/03/22 21:18 Dose: 14 unit Lactulose (Lactulose 20 Gm/30 Ml Cup) 20 gm PO DAILY PRN PRN Reason: Constipation Last Admin: 02/02/22 08:41 Dose: 20 gm Melatonin (Melatonin 3 Mg Tablet) 3 mg PO HS PRN PRN Reason: Insomnia Miscellaneous Information (Potassium Replacement Protocol 1 Each Misc) 1 each MISCELLANE DAILY PRN; Protocol PRN Reason: Per Protocol Miscellaneous Information (Warfarin Per Pharmacy) 1 each MISCELLANE DIRECTED PRN PRN Reason: Per Protocol Miscellaneous Information (Magnesium Replacement Protocol 1 Each Misc) 1 each MISCELLANE DAILY PRN; Protocol PRN Reason: Per Protocol Morphine Sulfate (Morphine Sulfate Er 15 Mg Tablet) 15 mg PO Q12HR [facility]; Protocol Last Admin: 02/04/22 08:00 Dose: Not Given Naloxone HCl (Naloxone 0.4 Mg/Ml 1 Ml Vial) 0.2 mg IV Q2M PRN PRN Reason: Opioid Reversal Nicotine (Nicotine 21mg/24hr Patch) 1 patch TRANSDERM DAILY [facility] Last Admin: 02/04/22 08:23 Dose: 1 patch Ondansetron HCl (Ondansetron 4 Mg/2 Ml Vial) 4 mg IVP Q8HR PRN PRN Reason: Nausea And Vomiting Last Admin: 02/02/22 08:41 Dose: 4 mg Pantoprazole Sodium (Pantoprazole 40 Mg/10 Ml Vial) 40 mg IVP BID [facility] Last Admin: 02/04/22 08:24 Dose: 40 mg Pregabalin (Pregabalin 100 Mg Cap) 100 mg PO BID [facility] Last Admin: 02/04/22 08:00 Dose: Not Given Tamsulosin HCl (Tamsulosin 0.4 Mg Cap.Er.24h) 0.4 mg PO PC-BRKFST [facility] Last Admin: 02/04/22 07:59 Dose: Not Given Warfarin Sodium (Warfarin 3 Mg Tab) 3 mg PO ONCE@1800 ONE Stop: 02/04/22 18:01 Past medical history to include: COPD, diabetes, hypertension, hyperlipidemia, back problems, TB, atrial fibrillation, on Coumadin Social history: Smokes a pack a day for close to 50 years. Stop doing alcohol some time ago. Lives with his significant other Sandra. Does use a walker. 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 Conjunctiva normal. HEENT: External appearance of nose and ears normal, oral cavity dry, NG tube NECK: JVD not raised; masses not palpable. HEART: Heart sounds irregular; mild edema. LUNGS: Respiratory rate increased; decreased breath sound, ABDOMEN: Soft, distended, nontender, liver spleen not palpable, no masses palpable. PSYCH: Unable to assess, patient lethargic DERMATOLOGICAL: Wound on right ankle lateral malleolus. Under dressing INVESTIGATIONS, reviewed in the clinical context: February 04: Obesity, 16.2, hemoglobin 12.4 potassium 4.3, BUN 36, creatinine 1.84 EEG: Evidence of encephalopathy. No obvious epileptiform activity. 2-D echocardiogram: EF 60-65%. February 03: WBC 18.5, hemoglobin 12.5 potassium 3.2, BUN 35, creatinine 1.77 February 02: CBC 7.5 hemoglobin 13.3 platelets 166 potassium 3 view and 29 creatinine 1.6 to Renal ultrasound: Shows bilateral normal cortical medullary thickness. February 01: WBC 17.1 hemoglobin 14.8 UA: Blood large, leukoesterase moderate WBC 28 nitrite negative Lumbar spine CT: Anterior wedge compression deformity of L1. Multiple level DJD. 7 mm calculus right renal pelvis. CT chest without contrast: Right lateral eighth through 10th rib fractures with associated gas trace hemothorax right lower lobe pulmonary contusion/atelectasis. Patchy) disease left upper lobe. WBC 25.8 hemoglobin 14.1 platelets 217 INR greater than 10 sodium 131 potassium 3.9. 24 creatinine 1.8 to EKG tracing personally reviewed by me-atrial flutter. Rate 132 Foot/Lumbar/sacral coccyx: Spondylitic changes. No fracture. Chest x-ray film personally reviewed by me-clinically. Possible hyperinflation Assessment and plan: -Coumadin toxicity. INR greater than 10.: Improved 10 mg vitamin K in the ER. Hemoptysis on presentation. Hold further anticoagulation. - right lung contusion.-Secondary to fall/hip fracture. hemoptysis on presentation Incentive spirometry -Acute COPD exacerbation, with chronic bronchitis component in a current smoker: Slow to respond DuoNeb. Nebulized Pulmicort. Mucinex. -Chronic nicotine dependence, cigarette smoker Nicotine patch 21 -Persistent atrial flutter,: Remains uncontrolled Lopressor 50 mg 3 times a day. 2-D echocardiogram unremarkable. Not a candidate for anticoagulation because of falls/pulmonary contusion hemoptysis. IV Cardizem drip. IV amiodarone drip -Possible CK D with possible acute component. creatinine was 0.8 in April 2019. Renal ultrasound unremarkable. UA shows trace protein. IV fluids.. -Acute right-sided 8-10 ribs fracture secondary to fall K pad -Diabetes mellitus type 2, chronically on oral hypoglycemic Hold Glucotrol. Sliding scale insulin. Levemir 14 units daily at bedtime -Diabetic peripheral neuropathy Decreased dose of Lyrica in the setting of renal failure. 100 mg twice a day -Chronic low back pain: MS Contin 15 mg every 12, [place]idge 7.5 twice a day when necessary -Anxiety depression not otherwise specified Wellbutrin XL 100 mg twice a day -Hyperlipidemia Lipitor 40 mg daily at bedtime -Right ankle lateral, diabetic wound, stage II acute IV Ancef ID consulted. Patient has poor distal pulses. February 01 wound was debrided by Dr. Ibarra. Clean base. -Acute L1 30% wedge fracture secondary to fall LSO brace. Be followed by Dr. Damon -Acute delirium multifactorial. Slow to respond -Acute ileus, NG tube for decompression. Being followed by surgery IV Ancef. IV Cardizem drip. IV amiodarone. IV fluids. Dressing to the right ankle. NG tube to suction. Discussed with girlfriend at the bedside. Prognosis guarded.
[2022-02-04] MEDS: COLLAGENASE 250 UNIT/GM OINTMENT 30 GM TUBE TOPICAL SCH (16:02)
[2022-02-04] MEDS ORDERED: WARFARIN 3 MG TAB PO ONE (18:00)
[2022-02-04 18:28] LABS: Glucose,Whole Blood 134 mg/dL (70-110)
[2022-02-04] MEDS: INSULIN DETEMIR (LEVEMIR) 100 UNIT/ML SYR SQ SCH (20:56)
[2022-02-04 23:47] LABS: Glucose,Whole Blood 132 mg/dL (70-110)
[2022-02-05] MEDS: DILTIAZEM 125 MG in SODIUM CHLORIDE 0.9% 100 ML IV SCH (00:21)
[2022-02-05] MEDS: AMIODARONE 450 MG in DEXTROSE 5% IN WATER 250 ML IV SCH ×2 (00:22)
[2022-02-05] MEDS: IPRATROPIUM-ALBUTEROL 3 ML NEB INHALATION SCH ×5 (01:26→19:37)
--- NOTE | 2022-02-05 02:27 | XR ---
EXAM: XR Chest, 1 View CLINICAL HISTORY: ITS.REASON XR Reason: inc O2 demands TECHNIQUE: Frontal view of the chest. COMPARISON: No relevant prior studies available. FINDINGS: Lungs: There is a patchy opacity at the right lung base. The left lung is clear. Pleural space: Unremarkable. No pneumothorax. Heart: Unremarkable. No cardiomegaly. Mediastinum: Unremarkable. Bones/joints: Unremarkable. IMPRESSION: Findings concerning for right lower lobe consolidation.
[2022-02-05 05:55] LABS: Glucose,Whole Blood 130 mg/dL (70-110)
[2022-02-05 06:11] LABS: ABG Base Excess -2.2 mmol/L; ABG HCO3 27 mmol/L (21-25); ABG Hematocrit 35 % (34.0-46.0); ABG Oxygen Saturation 98.6 % (94-97); ABG PO2 137 mmHg (83-108); ABG TCO2 30 mmol/L (19-24); Allen Test Performed? Yes
[2022-02-05 06:14] LABS: ABG PCO2 85 mmHg (35-45); ABG PH 7.12 (7.35-7.45)
[2022-02-05 06:29] LABS: INR 1.8 (<1.2); Prothrombin Time 18.5 sec (9.0-12.0)
[2022-02-05] MEDS ORDERED: ETOMIDATE 2 MG/ML 10 ML VIAL ONE (06:38)
[2022-02-05] MEDS ORDERED: PHENYLEPHRINE 10 MG/ML VIAL ONE (06:38)
[2022-02-05] MEDS: NOREPINEPHRINE 4 MG in SODIUM CHLORIDE 0.9% 250 ML IV SCH ×3 (06:40→22:17)
[2022-02-05 06:42] LABS: Calcium 7.9 mg/dL (8.4-10.2); Magnesium 2.3 mg/dL (1.6-2.3); Potassium 3.7 mmol/L (3.5-5.1)
[2022-02-05] MEDS ORDERED: SODIUM CHLORIDE 0.9% 1,000 ML IV ONE ×2 (06:45→21:58)
[2022-02-05 07:00] LABS: HCT 40.3 % (39.0-53.0); HGB 11.5 gm/dL (13.0-17.5); Hypochromasia Marked; MCH 27.5 pg (25.0-35.0); MCHC 28.6 g/dL (31.0-37.0); Platelet Count 179 k/uL (150-450); WBC 19.1 k/uL (3.8-10.6)
[2022-02-05 07:24] LABS: ABG Base Excess -1.7 mmol/L; ABG HCO3 26 mmol/L (21-25); ABG Hematocrit 38 % (34.0-46.0); ABG Oxygen Saturation 98.5 % (94-97); ABG PCO2 60 mmHg (35-45); ABG PH 7.24 (7.35-7.45); ABG PO2 111 mmHg (83-108); ABG TCO2 28 mmol/L (19-24); Allen Test Performed? Yes
[2022-02-05] MEDS: BUDESONIDE 1 MG/2 ML NEBU INHALATION SCH ×2 (07:56→19:37)
[2022-02-05] MEDS: INSULIN ASPART (NovoLOG) 100 UNIT/ML VIAL SQ SCH ×3 (07:58→18:30)
[2022-02-05] MEDS: SODIUM CHLORIDE 0.9% 1,000 ML IV SCH ×2 (07:58→17:52)
[2022-02-05] MEDS: MORPHINE SULFATE ER 15 MG TABLET PO SCH ×2 (07:59→20:21)
[2022-02-05] MEDS: TAMSULOSIN 0.4 MG CAP.ER.24H PO SCH (07:59)
[2022-02-05] MEDS: guaiFENesin 600 MG TABLET.ER PO SCH ×4 (08:04→20:21)
[2022-02-05] MEDS: NICOTINE 21MG/24HR PATCH TRANSDERM SCH (08:04)
[2022-02-05] MEDS: PANTOPRAZOLE 40 MG/10 ML VIAL IVP SCH ×2 (08:04→20:22)
[2022-02-05] MEDS: levETIRAcetam IV 500 MG in SODIUM CHLORIDE 0.9% 100 ML IVPB SCH ×2 (08:06→20:21)
[2022-02-05] MEDS: PREGABALIN 100 MG CAP PO SCH ×2 (08:19→20:21)
[2022-02-05 08:26] LABS: Lymphocytes # (M) 0.76 k/uL (1.0-4.8); Metamyelocytes # (M) 0.19 k/uL (0); Metamyelocytes % 1 %; Monocytes # (M) 1.34 k/uL (0-1.0); Neutrophils % (M) 89 %; Nucleated Red Blood Cells 0 /100 WBC (0-0); Total Cells Counted 200
--- NOTE | 2022-02-05 10:48 | P.PN ---
Subjective Progress Note Date: 02/05/22 Principal diagnosis: Pressure ulcer Patient was seen and examined in the ICU. Patient was intubated this morning. He is currently mechanical ventilation. He was seen by wound care yesterday and started on Santyl for his right lower extremity wound. Infectious disease continues to follow for bacteremia, blood cultures positive for staph aureus. Patient spiked a low-grade temp yesterday evening of 100.1, this morning was 99.8. Objective - Vital Signs Vital signs: Vital Signs Temp 99.8 F H 02/05/22 00:00 Pulse 114 H 02/05/22 08:32 Resp 20 02/05/22 07:00 BP 110/69 02/05/22 07:00 Pulse Ox 98 02/05/22 07:00 FiO2 50 02/05/22 07:22 Intake & Output 02/04/22 02/05/22 02/05/22 18:59 06:59 18:59 Intake Total 1400 1808.579 137.48 Output Total 650 720 30 Balance 750 1088.579 107.48 Weight 136 kg 136 kg Intake: IV 1400 1400 100 Sodium Chloride 0.9% 1, 1200 1200 100 000 ml @ 100 mls/hr IV . Q10H [facility] Rx#:[id number] ceFAZolin 2 gm In Sodium 100 100 Chloride 0.9% 50 ml @ 100 mls/hr IVPB Q8HR [facility] Rx# :[id number] levETIRAcetam IV 500 mg 100 100 In Sodium Chloride 0.9% 100 ml @ 400 mls/hr IVPB Q12HR [facility] Rx#:[id number] Intake, IV Titration 408.579 37.48 Amount Amiodarone 450 mg In 216.671 Dextrose 5% in Water 250 ml @ 0.5 MG/MIN 16.667 mls/hr IV .Q15H [facility] Rx#: [id number] Diltiazem 125 mg In 184 0 Sodium Chloride 0.9% 100 ml @ 10 MG/HR 10 mls/hr IV .[id number] [facility] Rx#: [id number] Norepinephrine 4 mg In 7.772 37.48 Sodium Chloride 0.9% 250 ml @ 0.05 MCG/KG/MIN 25. 908 mls/hr IV .[id number] [facility] Rx#:[id number] propofoL 1,000 mg In 0.136 0 Empty Bag 1 bag @ 5 MCG/ KG/MIN 4.08 mls/hr IV . Q24H [facility] Rx#:[id number] Output: Urine 650 720 30 Other: Voiding Method Indwelling Catheter Indwelling Catheter - Exam General appearance: The patient is intubated on mechanical ventilation, nonresponsive. HET: Head is normocephalic and atraumatic. Neck: Supple without lymphadenopathy. Trachea midline. Extremities: Right ankle wound dressing changed significant soft tissue with minimal amount of necrotic eschar noted. No tunneling or undermining. Neurological: Patient nonresponsive. - Labs CBC & Chem 7: 02/05/22 05:29 02/05/22 05:29 Labs: Abnormal Lab Results - Last 24 Hours (Table) 02/04/22 02/04/22 02/04/22 Range/Units 11:32 18:26 23:45 WBC (3.8-10.6) k/uL RBC (4.30-5.90) m/uL Hgb (13.0-17.5) gm/dL MCHC (31.0-37.0) g/dL RDW (11.5-15.5) % Neutrophils # (Manual) (1.3-7.7) k/uL Lymphocytes # (Manual) (1.0-4.8) k/uL Monocytes # (Manual) (0-1.0) k/uL Metamyelocytes # (Man) (0) k/uL PT (9.0-12.0) sec INR (<1.2) ABG pH (7.35-7.45) ABG pCO2 (35-45) mmHg ABG pO2 (83-108) mmHg ABG HCO3 (21-25) mmol/L ABG Total CO2 (19-24) mmol/L ABG O2 Saturation (94-97) % Hemoglobin (13.0-17.5) gm/dL Chloride (98-107) mmol/L BUN (9-20) mg/dL Creatinine (0.66-1.25) mg/dL Glucose (74-99) mg/dL POC Glucose (mg/dL) 147 H 134 H 132 H (70-110) mg/dL Calcium (8.4-10.2) mg/dL 02/05/22 02/05/22 02/05/22 Range/Units 05:29 05:29 05:29 WBC 19.1 H (3.8-10.6) k/uL RBC 4.20 L (4.30-5.90) m/uL Hgb 11.5 L (13.0-17.5) gm/dL MCHC 28.6 L (31.0-37.0) g/dL RDW 16.0 H (11.5-15.5) % Neutrophils # (Manual) 17.00 H (1.3-7.7) k/uL Lymphocytes # (Manual) 0.76 L (1.0-4.8) k/uL Monocytes # (Manual) 1.34 H (0-1.0) k/uL Metamyelocytes # (Man) 0.19 H (0) k/uL PT 18.5 H (9.0-12.0) sec INR 1.8 H (<1.2) ABG pH (7.35-7.45) ABG pCO2 (35-45) mmHg ABG pO2 (83-108) mmHg ABG HCO3 (21-25) mmol/L ABG Total CO2 (19-24) mmol/L ABG O2 Saturation (94-97) % Hemoglobin (13.0-17.5) gm/dL Chloride 109 H (98-107) mmol/L BUN 37 H (9-20) mg/dL Creatinine 2.38 H (0.66-1.25) mg/dL Glucose 151 H (74-99) mg/dL POC Glucose (mg/dL) (70-110) mg/dL Calcium 7.9 L (8.4-10.2) mg/dL 02/05/22 02/05/22 02/05/22 Range/Units 05:53 06:09 07:22 WBC (3.8-10.6) k/uL RBC (4.30-5.90) m/uL Hgb (13.0-17.5) gm/dL MCHC (31.0-37.0) g/dL RDW (11.5-15.5) % Neutrophils # (Manual) (1.3-7.7) k/uL Lymphocytes # (Manual) (1.0-4.8) k/uL Monocytes # (Manual) (0-1.0) k/uL Metamyelocytes # (Man) (0) k/uL PT (9.0-12.0) sec INR (<1.2) ABG pH 7.12 L* 7.24 L (7.35-7.45) ABG pCO2 85 H* 60 H (35-45) mmHg ABG pO2 137 H 111 H (83-108) mmHg ABG HCO3 27 H 26 H (21-25) mmol/L ABG Total CO2 30 H 28 H (19-24) mmol/L ABG O2 Saturation 98.6 H 98.5 H (94-97) % Hemoglobin 11.4 L 12.4 L (13.0-17.5) gm/dL Chloride (98-107) mmol/L BUN (9-20) mg/dL Creatinine (0.66-1.25) mg/dL Glucose (74-99) mg/dL POC Glucose (mg/dL) 130 H (70-110) mg/dL Calcium (8.4-10.2) mg/dL Microbiology - Last 24 Hours (Table) 02/01/22 08:55 Blood Culture Gram Stain - Final Blood Blood Culture - Final Staphylococcus aureus 01/31/22 06:45 Anaerobic Culture - Preliminary Ankle - Right Lynda albicans Assessment and Plan Assessment: 1. Necrotic wound/pressure ulcer of lateral aspect of right foot 2. Bacteremia, staph aureus 3. Acute hypoxic respiratory distress requiring intubation 4. Diabetes mellitus 5. Cardiac dysrhythmia 6. Leukocytosis 7. Altered mental status changes Plan: 1. Status post wound debridement 2. Continue recommendations from wound clinic with wound care/dressing changes 3. Offload pressure to area of wound, apply Mediboots 4. Arterial duplex ordered and reviewed 5. Recommend outpatient follow up with vascular surgery Thank you for this consultation, we will sign off at this time. The impression and plan of care has been dictated as directed. Dr. Shepard I performed a history and examination of this patient, discussed the same with the dictator. I agree with the dictator's note ,documented as a scribe. Any additional findings or plans will be noted.
--- NOTE | 2022-02-05 11:40 | XR ---
EXAM: XR Chest, 1 View CLINICAL HISTORY: RT SUBCLAVIAN LINE PLACEMENT TECHNIQUE: Frontal view of the chest. COMPARISON: 02/05/22 at 0139 hrs. FINDINGS/IMPRESSION: Interval placement of right subclavian catheter, with tip at the SVC/RA junction. Endotracheal tube and enteric tube grossly unchanged in position. Endotracheal tube tip is approximately 5 cm above the jodi. Stable lung volumes. No evidence of pneumothorax. Atelectasis or consolidation again seen in the right lung base. No mediastinal widening or shift.
--- NOTE | 2022-02-05 11:57 | P.PN ---
Subjective Progress Note Date: 02/05/22 Patient is a 61-year-old gentleman admitted to the hospital with atrial fibrillation with rapid ventricular rate in coagulopathy. Patient is seen today resting comfortably in bed he remains intubated. Coumadin has been restarted INR was 1.8 today. Patient's heart rate remains in the low 100s Will disco ntinue Cardizem and start oral amiodarone 200 mg twice a day, Toprol 25 mg twice a day. Blood cultures are pending, if blood culture remained positive patient will undergo TIFFANI Objective - Vital Signs Vital signs: Vital Signs Temp 98.5 F 02/05/22 08:00 Pulse 100 02/05/22 11:10 Resp 9 L 02/05/22 11:00 BP 105/55 02/05/22 09:00 Pulse Ox 98 02/05/22 11:00 FiO2 45 02/05/22 10:49 Intake & Output 02/04/22 02/05/22 02/05/22 18:59 06:59 18:59 Intake Total 1400 1808.579 614.272 Output Total 650 720 70 Balance 750 1088.579 544.272 Weight 136 kg 136 kg Intake: IV 1400 1400 550 Sodium Chloride 0.9% 1, 1200 1200 400 000 ml @ 100 mls/hr IV . Q10H [facility] Rx#:[id number] ceFAZolin 2 gm In Sodium 100 100 50 Chloride 0.9% 50 ml @ 100 mls/hr IVPB Q8HR [facility] Rx# :[id number] levETIRAcetam IV 500 mg 100 100 100 In Sodium Chloride 0.9% 100 ml @ 400 mls/hr IVPB Q12HR [facility] Rx#:[id number] Intake, IV Titration 408.579 64.272 Amount Amiodarone 450 mg In 216.671 Dextrose 5% in Water 250 ml @ 0.5 MG/MIN 16.667 mls/hr IV .Q15H [facility] Rx#: [id number] Diltiazem 125 mg In 184 0 Sodium Chloride 0.9% 100 ml @ 10 MG/HR 10 mls/hr IV .[id number] [facility] Rx#: [id number] Norepinephrine 4 mg In 7.772 37.48 Sodium Chloride 0.9% 250 ml @ 0.05 MCG/KG/MIN 25. 908 mls/hr IV .[id number] [facility] Rx#:[id number] propofoL 1,000 mg In 0.136 26.792 Empty Bag 1 bag @ 5 MCG/ KG/MIN 4.08 mls/hr IV . Q24H [facility] Rx#:[id number] Output: Urine 650 720 70 Other: Voiding Method Indwelling Catheter Indwelling Catheter ABP, PAP, CO, CI - Last Documented Arterial Blood Pressure 119/69 - Exam PHYSICAL EXAM: VITAL SIGNS: Reviewed. GENERAL: Well-developed in no acute distress. HEENT: Head is normocephalic. Pupils are equal, round. Sclerae anicteric. Mucous membranes of the mouth are moist. NECK: Supple. No JVD or thyromegaly RESPIRATORY: Respirations even and unlabored. Lungs diminished to auscultation bilaterally. CARDIO: irregular rate and rhythm. S1 and S2 heard. No gallops. Systolic murmur at the apex EXTREMITIES: Normal range of motion. No clubbing or cyanosis. Peripheral pulses intact. mild bilateral lower extremity edema NEURO: Orientated to person, time, mood is appropriate - Labs CBC & Chem 7: 02/05/22 05:29 02/05/22 05:29 Labs: Abnormal Lab Results - Last 24 Hours (Table) 02/04/22 02/04/22 02/05/22 Range/Units 18:26 23:45 05:29 WBC 19.1 H (3.8-10.6) k/uL RBC 4.20 L (4.30-5.90) m/uL Hgb 11.5 L (13.0-17.5) gm/dL MCHC 28.6 L (31.0-37.0) g/dL RDW 16.0 H (11.5-15.5) % Neutrophils # (Manual) 17.00 H (1.3-7.7) k/uL Lymphocytes # (Manual) 0.76 L (1.0-4.8) k/uL Monocytes # (Manual) 1.34 H (0-1.0) k/uL Metamyelocytes # (Man) 0.19 H (0) k/uL PT (9.0-12.0) sec INR (<1.2) ABG pH (7.35-7.45) ABG pCO2 (35-45) mmHg ABG pO2 (83-108) mmHg ABG HCO3 (21-25) mmol/L ABG Total CO2 (19-24) mmol/L ABG O2 Saturation (94-97) % Hemoglobin (13.0-17.5) gm/dL Chloride (98-107) mmol/L BUN (9-20) mg/dL Creatinine (0.66-1.25) mg/dL Glucose (74-99) mg/dL POC Glucose (mg/dL) 134 H 132 H (70-110) mg/dL Calcium (8.4-10.2) mg/dL 02/05/22 02/05/22 02/05/22 Range/Units 05:29 05:29 05:53 WBC (3.8-10.6) k/uL RBC (4.30-5.90) m/uL Hgb (13.0-17.5) gm/dL MCHC (31.0-37.0) g/dL RDW (11.5-15.5) % Neutrophils # (Manual) (1.3-7.7) k/uL Lymphocytes # (Manual) (1.0-4.8) k/uL Monocytes # (Manual) (0-1.0) k/uL Metamyelocytes # (Man) (0) k/uL PT 18.5 H (9.0-12.0) sec INR 1.8 H (<1.2) ABG pH (7.35-7.45) ABG pCO2 (35-45) mmHg ABG pO2 (83-108) mmHg ABG HCO3 (21-25) mmol/L ABG Total CO2 (19-24) mmol/L ABG O2 Saturation (94-97) % Hemoglobin (13.0-17.5) gm/dL Chloride 109 H (98-107) mmol/L BUN 37 H (9-20) mg/dL Creatinine 2.38 H (0.66-1.25) mg/dL Glucose 151 H (74-99) mg/dL POC Glucose (mg/dL) 130 H (70-110) mg/dL Calcium 7.9 L (8.4-10.2) mg/dL 02/05/22 02/05/22 Range/Units 06:09 07:22 WBC (3.8-10.6) k/uL RBC (4.30-5.90) m/uL Hgb (13.0-17.5) gm/dL MCHC (31.0-37.0) g/dL RDW (11.5-15.5) % Neutrophils # (Manual) (1.3-7.7) k/uL Lymphocytes # (Manual) (1.0-4.8) k/uL Monocytes # (Manual) (0-1.0) k/uL Metamyelocytes # (Man) (0) k/uL PT (9.0-12.0) sec INR (<1.2) ABG pH 7.12 L* 7.24 L (7.35-7.45) ABG pCO2 85 H* 60 H (35-45) mmHg ABG pO2 137 H 111 H (83-108) mmHg ABG HCO3 27 H 26 H (21-25) mmol/L ABG Total CO2 30 H 28 H (19-24) mmol/L ABG O2 Saturation 98.6 H 98.5 H (94-97) % Hemoglobin 11.4 L 12.4 L (13.0-17.5) gm/dL Chloride (98-107) mmol/L BUN (9-20) mg/dL Creatinine (0.66-1.25) mg/dL Glucose (74-99) mg/dL POC Glucose (mg/dL) (70-110) mg/dL Calcium (8.4-10.2) mg/dL Microbiology - Last 24 Hours (Table) 02/01/22 08:55 Blood Culture Gram Stain - Final Blood Blood Culture - Final Staphylococcus aureus 01/31/22 06:45 Anaerobic Culture - Preliminary Ankle - Right Lynda albicans Assessment and Plan Assessment: Atrial fibrillation with poorly controlled ventricular rate Plan: Discontinue Cardizem Start amiodarone 200 mg twice a day Start Toprol 25 mg twice a day Blood cultures pending, if preliminary blood cultures positive, patient needs TIFFANI
[2022-02-05] MEDS ORDERED: CHLORHEXIDINE GLUCONATE 15 ML CUP MUCOUS MEM ONE (12:00)
[2022-02-05] MEDS ORDERED: METOPROLOL SUCCINATE (ER) 25 MG TAB.ER.24H PO SCH (12:00)
[2022-02-05] MEDS: CHLORHEXIDINE GLUCONATE 15 ML CUP MUCOUS MEM SCH ×2 (12:01→20:21)
[2022-02-05] MEDS: COLLAGENASE 250 UNIT/GM OINTMENT 30 GM TUBE TOPICAL SCH (12:01)
[2022-02-05 12:15] LABS: Glucose,Whole Blood 103 mg/dL (70-110)
--- NOTE | 2022-02-05 12:16 | XR ---
EXAMINATION TYPE: XR chest 1V portable DATE OF EXAM: 02/05/2022 COMPARISON: Prior chest x-ray dated 02/05/2022 at earlier time HISTORY: Intubation TECHNIQUE: frontal view of the chest is obtained on 2 images. FINDINGS: Endotracheal tube, NG tube are overlying appropriate positions, patient remains rotated. N o evident pneumothorax. Bibasilar increased density persists. Cardiac mediastinal silhouette is stabl e. There are overlying leads. IMPRESSION: Stable exam
[2022-02-05] MEDS ORDERED: IOPAMIDOL CONTRAST (ORAL USE) VIAL PO PRN (12:37)
--- NOTE | 2022-02-05 12:45 | P.PN ---
Subjective Progress Note Date: 02/05/22 Principal diagnosis: Multiple right-sided rib fractures and a right sided pulmonary contusion with compression fractures of lumbar spine This is a extremely debilitated 61-year-old male patient who is known to monitor milligrams and comorbidities and I was asked to evaluate this patient because of a fall and limited hemoptysis. The patient is known to have a combination of i ssues including diabetes mellitus and diabetic peripheral neuropathy and the patient has had previous episodes of falls and he has issues with chronic atrial flutter maintained on long-term anticoagulation with warfarin. He is morbidly obese. He has hypertension and hyperlipidemia as comorbid conditions along with chronic kidney disease. He is morbidly obese. He has history of COPD and is a chronic smoker. He comes in to the hospital after he had a fall at home. He was the bathroom and he slept and he landed on his left chest. Here in the hospital, the patient was found to be Coumadin toxic and his INR was above 10. He did have some limited hemoptysis and coffee-ground emesis without any melanotic stools. No abdominal pain. He was noted to have a large ulcer over the right ankle/malleolus area which is a chronic wound. Immediately the patient was given vitamin K. This computed tomography scan of the chest shows some right lateral eighth through 10th rib fractures with trace amount of right- sided pleural effusion and right basilar atelectasis related to underlying pulmonary contusion. No evidence of any pneumothorax. Some limited patchy airspace disease in the left upper lobe probably inflammatory in the same time the patient had dilated pulmonary arteries indicating possibility of pulmonary hypertension and a fluid and gas-filled distended stomach. I noted the patient has not had a CAT scan of the brain and a CAT scan was done that showed no acute intracranial process. There was a remote left occipital lobe injury along with some nonspecific white matter changes secondary to chronic microangiopathy. This computed tomography scan of the lumbar spine showed acute anterior wedge compression deformity of L1 vertebral body with a 30% loss in height along with multilevel degenerative disc changes and a 7 mm In the right pelvis. Patient was already seen by general surgery and orthopedic surgery. Lumbar spine x-ray that was done on 2021 showed no acute fracture. The patient was also seen by vascular surgery for a right lateral foot wound and this is a stage II wound 8.5 x 4 cm in size. Debridement was done by vascular surgery. On 02/02/2022, the patient is confused which is unchanged compared to yesterday. CAT scan of the brain was done yesterday showed no acute abnormalities. He did not have any further episodes of hemoptysis. His coagulopathy was reversed. I noted some coffee-ground emesis yesterday and subsequently developed some ab dominal distention and ileus was suspected. NG tube was inserted. On multiple occasions, he pulled out his NG tube. This morning, NG tube is in place and the total amount of output is in order of 25 mL since morning and he does have some old retained coffee-ground material in the canister since yesterday in the order of 200 mL. Abdomen is soft. He is laying comfortably in bed. He is off anti coagulation for now. He is an IV fluids and currently receiving 0.9 at a rate of 100 mL an hour. He is also on a Cardizem drip for atrial flutter with RVR. His heart rates currently is in order of 130 beats per minute. He is still tachycardic. The Cardizem rate accordingly was increased and is being adjusted and titrated by cardiology.The white cell count is at 17.7 hemoglobin 15.3 and a platelet count of 166, the patient also has a sodium level of 136, potassium is being replaced is currently down to 3 and a BUN is at 29 with a creatinine of 1.62. Serum bicarbs at 23. Correlation profile is normalized. The patient only on Lovenox for DVT prophylaxis. Reevaluated today on 02/03/22, patient remains in the ICU, presently on 2 L nasal cannula, patient remains unresponsive to any stimuli including deep painful stimuli. Patient remains obtunded, he has a Glascow coma score of 3, speech and language could not be assessed. Patient is having multifocal myoclonic twitching. Mostly the facial region. Seen by neurology this morning, felt to have acute metabolic encephalopathy, EEG did not reveal any evidence of epileptiform activity. EEG was suggestive of metabolic encephalopathy patient was kept on Keppra for now. Suggesting MRI of the brain to rule out CVA. And recommending that the patient goes back on anticoagulation for atrial fibrillation when medically cleared. Pulmonary-[place], the patient is basically the same, he does have fractures but does not seem to be compromising his oxygenation. Patient is on 2 L nasal cannula, and O2 saturation is in the 90s. He is on Cardizem at 15 mg per hour for his atrial fibrillation. 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 Blood cultures have been positive for presumptive staph aureus. These have been positive since admission. Cultures from right ankle 1 showed Staphylococcus aureus and strep agalactiae group B, patient is being followed by infectious disease on the case Reevaluated today on 02/04/22, patient remains in the ICU, he is on 2 L nasal cannula. Patient remains obtunded. Continues to have positive blood cultures, staph aureus and staph epidermidis. Remains on antibiotics as per infectious disease on the case. Continues to have a Glascow coma score of 3. Patient continues to have multiple myoclonic twitching in the face. He is not waking up even with deep painful stimuli. Patient remains very encephalopathic. Not much of a change in the last 24 hours. Repeat blood cultures today are pending but he had positive blood cultures from 01/31 and from 02/01. Patient may have to be considered for possible TIFFANI if his blood cultures remain positive. His right foot wound culture is also positive for staph aureus and for Streptococcus group B. Patient is being followed by many consultants including cardiology and infectious disease and neurology. His neurological status seems to be quite concerning. WBC count today is 16.2 hemoglobin is 12.4 7 normal BUN is 36 creatinine 1.84 Reevaluated today on 02/05/22, patient's clinical status. Deteriorated last night, patient required intubation and mechanical ventilation. Patient had ABG earlier this morning, and his pO2 was 137 pCO2 85 pH of 7.12 and patient was noted to remain obtunded. I was notified about the ABG, I recommended immediate intubation of the patient and follow-up ABG on 50% showed a pO2 of 111 pCO2 of 60 and pH of 7.24. Today he was noted to be on assist control rate of 2010 volume 500 FiO2 50% and PEEP of 5 hence after reviewing the ABG I changed his rate up to 24 kept him on 500 tidal volume cut down the FiO2 to 45% and The PEEP at 5. Repeat ABG is pending. Patient is requiring amiodarone for his atrial fibrillation with RVR he is on 0.5 mg/m patient is also on propofol at 10 mcg/kg/m he was on cefazolin for his MSSA infection and possible blood cultures. He is also on 0.9 normal saline at 100 mL per hour. WBC count is 19.1 hemoglobin is 11.5 INR is 1.8. Basic metabolic profile is normal however his BU N is 37 and creatinine 2.38. Chest x-ray today at 11:40 showed right lower lobe atelectasis, strongly doubt pneumonia. Objective - Vital Signs Vital signs: Vital Signs Temp 98.5 F 02/05/22 08:00 Pulse 100 02/05/22 11:10 Resp 9 L 02/05/22 11:00 BP 105/55 02/05/22 09:00 Pulse Ox 98 02/05/22 11:00 FiO2 45 02/05/22 10:49 Intake & Output 02/04/22 02/05/22 02/05/22 18:59 06:59 18:59 Intake Total 1400 1808.579 614.272 Output Total 650 720 70 Balance 750 1088.579 544.272 Weight 136 kg 136 kg Intake: IV 1400 1400 550 Sodium Chloride 0.9% 1, 1200 1200 400 000 ml @ 100 mls/hr IV . Q10H [facility] Rx#:[id number] ceFAZolin 2 gm In Sodium 100 100 50 Chloride 0.9% 50 ml @ 100 mls/hr IVPB Q8HR [facility] Rx# :[id number] levETIRAcetam IV 500 mg 100 100 100 In Sodium Chloride 0.9% 100 ml @ 400 mls/hr IVPB Q12HR [facility] Rx#:[id number] Intake, IV Titration 408.579 64.272 Amount Amiodarone 450 mg In 216.671 Dextrose 5% in Water 250 ml @ 0.5 MG/MIN 16.667 mls/hr IV .Q15H [facility] Rx#: [id number] Diltiazem 125 mg In 184 0 Sodium Chloride 0.9% 100 ml @ 10 MG/HR 10 mls/hr IV .[id number] [facility] Rx#: [id number] Norepinephrine 4 mg In 7.772 37.48 Sodium Chloride 0.9% 250 ml @ 0.05 MCG/KG/MIN 25. 908 mls/hr IV .[id number] [facility] Rx#:[id number] propofoL 1,000 mg In 0.136 26.792 Empty Bag 1 bag @ 5 MCG/ KG/MIN 4.08 mls/hr IV . Q24H [facility] Rx#:[id number] Output: Urine 650 720 70 Other: Voiding Method Indwelling Catheter Indwelling Catheter Indwelling Catheter ABP, PAP, CO, CI - Last Documented Arterial Blood Pressure 119/69 - Exam GENERAL: Revealed a 61-year-old white male, intubated, mechanically ventilated, unresponsive to any stimuli. Head atraumatic, normocephalic. EYES: Pupils equal. Conjunctiva normal. HEENT: External appearance of nose and ears normal, oral cavity grossly normal. NECK: JVD not raised; masses not palpable. HEART: Normal S1 and S2, no S3 gallop, irregular rhythm. LUNGS: Diminished breath sounds and crackles at the bases. ABDOMEN: Soft, distended, no megaly no rebound no guarding PSYCH: Cannot be assessed, sedated with a fall, and he was obtunded all along since admission. DERMATOLOGICAL: Large wound around the lateral malleolus right foot Gangrene Changes, wrapped with sterile dressing. MUSCULOSKELETAL:No Clubbing/cyanosis;muscles-grossly intact, NEUROLOGICAL: Glascow coma score of 3, unresponsive to any stimuli,. - Labs CBC & Chem 7: 02/05/22 05:29 02/05/22 05:29 Labs: Abnormal Lab Results - Last 24 Hours (Table) 02/04/22 02/04/22 02/05/22 Range/Units 18:26 23:45 05:29 WBC 19.1 H (3.8-10.6) k/uL RBC 4.20 L (4.30-5.90) m/uL Hgb 11.5 L (13.0-17.5) gm/dL MCHC 28.6 L (31.0-37.0) g/dL RDW 16.0 H (11.5-15.5) % Neutrophils # (Manual) 17.00 H (1.3-7.7) k/uL Lymphocytes # (Manual) 0.76 L (1.0-4.8) k/uL Monocytes # (Manual) 1.34 H (0-1.0) k/uL Metamyelocytes # (Man) 0.19 H (0) k/uL PT (9.0-12.0) sec INR (<1.2) ABG pH (7.35-7.45) ABG pCO2 (35-45) mmHg ABG pO2 (83-108) mmHg ABG HCO3 (21-25) mmol/L ABG Total CO2 (19-24) mmol/L ABG O2 Saturation (94-97) % Hemoglobin (13.0-17.5) gm/dL Chloride (98-107) mmol/L BUN (9-20) mg/dL Creatinine (0.66-1.25) mg/dL Glucose (74-99) mg/dL POC Glucose (mg/dL) 134 H 132 H (70-110) mg/dL Calcium (8.4-10.2) mg/dL 02/05/22 02/05/22 02/05/22 Range/Units 05:29 05:29 05:53 WBC (3.8-10.6) k/uL RBC (4.30-5.90) m/uL Hgb (13.0-17.5) gm/dL MCHC (31.0-37.0) g/dL RDW (11.5-15.5) % Neutrophils # (Manual) (1.3-7.7) k/uL Lymphocytes # (Manual) (1.0-4.8) k/uL Monocytes # (Manual) (0-1.0) k/uL Metamyelocytes # (Man) (0) k/uL PT 18.5 H (9.0-12.0) sec INR 1.8 H (<1.2) ABG pH (7.35-7.45) ABG pCO2 (35-45) mmHg ABG pO2 (83-108) mmHg ABG HCO3 (21-25) mmol/L ABG Total CO2 (19-24) mmol/L ABG O2 Saturation (94-97) % Hemoglobin (13.0-17.5) gm/dL Chloride 109 H (98-107) mmol/L BUN 37 H (9-20) mg/dL Creatinine 2.38 H (0.66-1.25) mg/dL Glucose 151 H (74-99) mg/dL POC Glucose (mg/dL) 130 H (70-110) mg/dL Calcium 7.9 L (8.4-10.2) mg/dL 02/05/22 02/05/22 Range/Units 06:09 07:22 WBC (3.8-10.6) k/uL RBC (4.30-5.90) m/uL Hgb (13.0-17.5) gm/dL MCHC (31.0-37.0) g/dL RDW (11.5-15.5) % Neutrophils # (Manual) (1.3-7.7) k/uL Lymphocytes # (Manual) (1.0-4.8) k/uL Monocytes # (Manual) (0-1.0) k/uL Metamyelocytes # (Man) (0) k/uL PT (9.0-12.0) sec INR (<1.2) ABG pH 7.12 L* 7.24 L (7.35-7.45) ABG pCO2 85 H* 60 H (35-45) mmHg ABG pO2 137 H 111 H (83-108) mmHg ABG HCO3 27 H 26 H (21-25) mmol/L ABG Total CO2 30 H 28 H (19-24) mmol/L ABG O2 Saturation 98.6 H 98.5 H (94-97) % Hemoglobin 11.4 L 12.4 L (13.0-17.5) gm/dL Chloride (98-107) mmol/L BUN (9-20) mg/dL Creatinine (0.66-1.25) mg/dL Glucose (74-99) mg/dL POC Glucose (mg/dL) (70-110) mg/dL Calcium (8.4-10.2) mg/dL Microbiology - Last 24 Hours (Table) 02/04/22 09:39 Blood Culture - Preliminary Blood No Growth after 24 hours 02/04/22 09:39 Blood Culture - Preliminary Blood No Growth after 24 hours 02/01/22 08:55 Blood Culture Gram Stain - Final Blood Blood Culture - Final Staphylococcus aureus 01/31/22 06:45 Anaerobic Culture - Preliminary Ankle - Right Lynda albicans Assessment and Plan Assessment: Impression: Acute hypercapnic respiratory failure Acute metabolic encephalopathy Right sided rib fractures, traumatic, secondary to fall, Right sided pulmonary contusion. Anterior wedge compression fracture of L1 Hemoptysis secondary to contusion and exacerbated by Coumadin coagulopathy Underlying COPD and chronic smoking Coumadin toxicity with INR above 10 on admission, recovered History of frequent falls. Metabolic encephalopathy, acute, being addressed by neurology on the case. Chronic atrial fibrillation. Chronic kidney disease stage III. Stage II right ankle wound requiring debridement and positive for staph aureus and strep agalactiae Positive bacteremia, persistent, blood cultures continue to be positive, may have to be considered for TIFFANI or possibly reevaluate the compression fracture of the lumbar spine for possible discitis. Diabetic peripheral neuropathy History of Nephrolithiasis Recommendation: Continue ventilatory support Continue antibiotics May have to be considered for further workup since the patient continues to have persistent bacteremia, May have to seriously consider TIFFANI, nonetheless the patient is being followed by cardiology anyway. Continue to monitor in the ICU Continue antibiotics for his gram-positive bacteremia may have to consider TIFFANI if the patient continues to have positive blood cultures in spite of antibiotics. Cardiology is on board. Nutritional support/enteral feeding Continue GI and DVT prophylaxis Continue Keppra Continue amiodarone. Continue anticoagulation therapy Prognosis is extremely poor and guarded Critical care time is over 30 minutes, not including the time spent on procedures. We will continue to follow. Time with Patient: Greater than 30
--- NOTE | 2022-02-05 13:09 | P.PN ---
Subjective Progress Note Date: 02/05/22 CHIEF COMPLAINT: Upper GI bleeding HISTORY OF PRESENT ILLNESS: Patient remains in the ICU. Patient required to be intubated early this morning. He did have a low-grade temp of 100.1 white count is going up from 16-19. He is on IV amiodarone and propofol. He has NG tube in place with bile 500ml output. No bowel movement reported. Cardiology assessing patient for possible TIFFANI. Repeat blood culture pending PHYSICAL EXAM: VITAL SIGNS: Reviewed. ABDOMEN: Soft. Distended NEUROLOGIC: Intubated and sedated ASSESSMENT: 1. Upper GI bleed 2. Ileus 3. Altered mental status 4. Leukocytosis PLAN: -Computed tomography scan abdomen and pelvis with oral contrast will be ordered tomorrow morning for further evaluation of leukocytosis and low-grade temp -Continue ICU management -Continue supportive care -Continue to monitor -Continue NG tube for decompression -Okay to start oral medication Physician Care Associate note has been reviewed by physician. Signing provider agrees with the documented findings, assessment, and plan of care. I have personally seen and examined the patient, reviewed the SCORE CALLER /PAs history, exam and MDM and agree with the assessment and plan as written. Based on total visit time, I have performed more than 50% of the visit. As above: Patient was placed on the ventilator this morning. Nasogastric tube remains bilious. Abdominal pain prior to intubation not able to be adequately assessed. Currently nontender on exam. Given the patient's clinical decline we'll proceed with CT abdomen and pelvis. Nothing by mouth with nasogastric tube suction. Objective - Vital Signs Vital signs: Vital Signs Temp 98.5 F 02/05/22 08:00 Pulse 100 02/05/22 11:10 Resp 9 L 02/05/22 11:00 BP 105/55 02/05/22 09:00 Pulse Ox 98 02/05/22 11:00 FiO2 45 02/05/22 10:49 Intake & Output 02/04/22 02/05/22 02/05/22 18:59 06:59 18:59 Intake Total 1400 1808.579 714.272 Output Total 650 720 90 Balance 750 1088.579 624.272 Weight 136 kg 136 kg Intake: IV 1400 1400 650 Sodium Chloride 0.9% 1, 1200 1200 500 000 ml @ 100 mls/hr IV . Q10H [facility] Rx#:[id number] ceFAZolin 2 gm In Sodium 100 100 50 Chloride 0.9% 50 ml @ 100 mls/hr IVPB Q8HR [facility] Rx# :[id number] levETIRAcetam IV 500 mg 100 100 100 In Sodium Chloride 0.9% 100 ml @ 400 mls/hr IVPB Q12HR [facility] Rx#:[id number] Intake, IV Titration 408.579 64.272 Amount Amiodarone 450 mg In 216.671 Dextrose 5% in Water 250 ml @ 0.5 MG/MIN 16.667 mls/hr IV .Q15H [facility] Rx#: [id number] Diltiazem 125 mg In 184 0 Sodium Chloride 0.9% 100 ml @ 10 MG/HR 10 mls/hr IV .[id number] [facility] Rx#: [id number] Norepinephrine 4 mg In 7.772 37.48 Sodium Chloride 0.9% 250 ml @ 0.05 MCG/KG/MIN 25. 908 mls/hr IV .Q9H49M [facility] Rx#:[id number] propofoL 1,000 mg In 0.136 26.792 Empty Bag 1 bag @ 5 MCG/ KG/MIN 4.08 mls/hr IV . Q24H [facility] Rx#:[id number] Output: Urine 650 720 90 Other: Voiding Method Indwelling Catheter Indwelling Catheter Indwelling Catheter ABP, PAP, CO, CI - Last Documented Arterial Blood Pressure 119/69 - Labs CBC & Chem 7: 02/05/22 05:29 02/05/22 05:29 Labs: Abnormal Lab Results - Last 24 Hours (Table) 02/04/22 02/04/22 02/05/22 Range/Units 18:26 23:45 05:29 WBC 19.1 H (3.8-10.6) k/uL RBC 4.20 L (4.30-5.90) m/uL Hgb 11.5 L (13.0-17.5) gm/dL MCHC 28.6 L (31.0-37.0) g/dL RDW 16.0 H (11.5-15.5) % Neutrophils # (Manual) 17.00 H (1.3-7.7) k/uL Lymphocytes # (Manual) 0.76 L (1.0-4.8) k/uL Monocytes # (Manual) 1.34 H (0-1.0) k/uL Metamyelocytes # (Man) 0.19 H (0) k/uL PT (9.0-12.0) sec INR (<1.2) ABG pH (7.35-7.45) ABG pCO2 (35-45) mmHg ABG pO2 (83-108) mmHg ABG HCO3 (21-25) mmol/L ABG Total CO2 (19-24) mmol/L ABG O2 Saturation (94-97) % Hemoglobin (13.0-17.5) gm/dL Chloride (98-107) mmol/L BUN (9-20) mg/dL Creatinine (0.66-1.25) mg/dL Glucose (74-99) mg/dL POC Glucose (mg/dL) 134 H 132 H (70-110) mg/dL Calcium (8.4-10.2) mg/dL 02/05/22 02/05/22 02/05/22 Range/Units 05:29 05:29 05:53 WBC (3.8-10.6) k/uL RBC (4.30-5.90) m/uL Hgb (13.0-17.5) gm/dL MCHC (31.0-37.0) g/dL RDW (11.5-15.5) % Neutrophils # (Manual) (1.3-7.7) k/uL Lymphocytes # (Manual) (1.0-4.8) k/uL Monocytes # (Manual) (0-1.0) k/uL Metamyelocytes # (Man) (0) k/uL PT 18.5 H (9.0-12.0) sec INR 1.8 H (<1.2) ABG pH (7.35-7.45) ABG pCO2 (35-45) mmHg ABG pO2 (83-108) mmHg ABG HCO3 (21-25) mmol/L ABG Total CO2 (19-24) mmol/L ABG O2 Saturation (94-97) % Hemoglobin (13.0-17.5) gm/dL Chloride 109 H (98-107) mmol/L BUN 37 H (9-20) mg/dL Creatinine 2.38 H (0.66-1.25) mg/dL Glucose 151 H (74-99) mg/dL POC Glucose (mg/dL) 130 H (70-110) mg/dL Calcium 7.9 L (8.4-10.2) mg/dL 02/05/22 02/05/22 Range/Units 06:09 07:22 WBC (3.8-10.6) k/uL RBC (4.30-5.90) m/uL Hgb (13.0-17.5) gm/dL MCHC (31.0-37.0) g/dL RDW (11.5-15.5) % Neutrophils # (Manual) (1.3-7.7) k/uL Lymphocytes # (Manual) (1.0-4.8) k/uL Monocytes # (Manual) (0-1.0) k/uL Metamyelocytes # (Man) (0) k/uL PT (9.0-12.0) sec INR (<1.2) ABG pH 7.12 L* 7.24 L (7.35-7.45) ABG pCO2 85 H* 60 H (35-45) mmHg ABG pO2 137 H 111 H (83-108) mmHg ABG HCO3 27 H 26 H (21-25) mmol/L ABG Total CO2 30 H 28 H (19-24) mmol/L ABG O2 Saturation 98.6 H 98.5 H (94-97) % Hemoglobin 11.4 L 12.4 L (13.0-17.5) gm/dL Chloride (98-107) mmol/L BUN (9-20) mg/dL Creatinine (0.66-1.25) mg/dL Glucose (74-99) mg/dL POC Glucose (mg/dL) (70-110) mg/dL Calcium (8.4-10.2) mg/dL Microbiology - Last 24 Hours (Table) 02/04/22 09:39 Blood Culture - Preliminary Blood No Growth after 24 hours 02/04/22 09:39 Blood Culture - Preliminary Blood No Growth after 24 hours 02/01/22 08:55 Blood Culture Gram Stain - Final Blood Blood Culture - Final Staphylococcus aureus 01/31/22 06:45 Anaerobic Culture - Preliminary Ankle - Right Lynda albicans
--- NOTE | 2022-02-05 13:37 | P.PN ---
Progress Note - Text Progress Note Date: 02/05/22 This is a 61-year-old patient who follows with Dr. Sridhar Chan. Chronic stable medical conditions include diabetes, hypertension, hyperlipidemia, chronic low back problems, cigarette smoker. At the baseline uses a walker. Patient slipped in the bathroom falling on his buttock. Was not able to get up. By the EMS report he had fallen 24 hours prior to the picking him up. Patient been complaining of pain in the right rib cage in the lower back. X-ray was negative for fracture. Patient continued to have significant pain especially with deep breathing. Patient also had a congestive cough and wheezing. Some bloody sputum. Denies any fever and chills. Patient also complaining of urina ry retention and requesting a Shepard catheter. at the bedside. No fever no chills. Orthopedics consulted for the same. Patient normally has a bowel movement once a week. Patient also has a wound on the right foot lateral part of the ankles for about a week. Ischemic changes. From rubbing against a bedpost. Patient's INR in the ER was greater than 10. Was given vitamin K. 10 mg Patient bit with Coumadin toxicity, given vitamin K, acute COPD exacerbation, uncontrolled atrial flutter put on Lopressor, right chest wall pain. Computed tomography scan lumbar spine and chest was ordered. Large wound on the right lateral malleolus-ID and vascular consulted.. IV cefepime. February 01: Patient yesterday to see refused his computed tomography scan of the chest and lumbar spine. Done today. Right-sided rib fractures, pulmonary contusion confirm. L1 vertebral body 30% wedge compression fracture. Patient's girlfriend the bedside. It was discussed in detail with her. Patient wanting again and again to pull out his NG tube. Requests the to stay with the patient. Patient is also had the dark aspirate from the stomach for which she has NG tube. Surgery was consulted for the same. Also this morning right foot wound was debrided by Dr. Ibarra from vascular. Wound base was relatively clean. No undermining or tunneling. February 02: Delirious. NG tube to suction. Has been in restraints because point NG TUBE several times. Mumbling to himself. Dressing over the right ankle. Not in distress. Ileus. Chest x-ray showing right lower lobe/atelectasis. February 03: Hospital computer system was down. Patient remains delirious. Nasal cannula. Lethargic. Family the bedside. Antibiotics. A. fib uncontrolled. EEG evidence of metabolic encephalopathy. No clear-cut epileptiform activity. Started on Keppra by neurology. February 04: ICU: Girlfriend at the bedside. In atrial fibrillation uncontrolled. On IV Cardizem and IV amiodarone. NG tube to suction. Patient lethargic. Multiple breathing. 2 L. Oxygen. February 05: ICU. Atrial fibrillation better controlled this morning. Cardizem discontinued. Patient respiratory status worsened this morning and patient is intubated. FiO2 45 and a PEEP of 5. Atrial fibrillation, controlled. Drips include amiodarone, propofol, levo fed. Discussed with girlfriend the bedside. Understands prognosis guarded. Active Medications Acetaminophen (Acetaminophen Tab 325 Mg Tab) 650 mg PO Q6HR PRN PRN Reason: Mild Pain or Fever > 100.5 Albuterol/Ipratropium (Ipratropium-Albuterol 3 Ml Neb) 3 ml INHALATION RT-QID [facility] Last Admin: 02/05/22 10:54 Dose: 3 ml Amiodarone HCl (Amiodarone 200 Mg Tab) 200 mg PO BID [facility] Budesonide (Budesonide 1 Mg/2 Ml Nebu) 1 mg INHALATION RT-BID [facility] Last Admin: 02/05/22 07:56 Dose: 1 mg Calcium Carbonate/Glycine (Calcium Carbonate 500 Mg Chewable) 1,000 mg PO Q4HR PRN PRN Reason: Dyspepsia Last Admin: 01/31/22 14:29 Dose: 1,000 mg Chlorhexidine Gluconate (Chlorhexidine Gluconate 15 Ml Cup) 15 ml MUCOUS MEM BID [facility] Last Admin: 02/05/22 12:01 Dose: 15 ml Collagenase (Collagenase 250 Unit/Gm Ointment 30 Gm Tube) 1 applic TOPICAL DAILY [facility]; Protocol Last Admin: 02/05/22 12:01 Dose: 1 applic Dextrose/Water (Dextrose 50% Syringe 50 Ml) 25 ml IVP PER PROTOCOL PRN; Protocol PRN Reason: Hypoglycemia Dextrose/Water (Dextrose 50% Syringe 50 Ml) 50 ml IVP PER PROTOCOL PRN; Protocol PRN Reason: Hypoglycemia Guaifenesin (Guaifenesin 600 Mg Tablet.Er) 600 mg PO QID [facility] Last Admin: 02/05/22 13:05 Dose: Not Given Hydromorphone HCl (Hydromorphone 0.5 Mg/0.5 Ml Syringe) 0.5 mg IVP Q3HR PRN PRN Reason: Pain Last Admin: 02/03/22 03:43 Dose: 0.5 mg Sodium Chloride (Saline 0.9%) 1,000 mls @ 100 mls/hr IV .Q10H [facility] Last Admin: 02/05/22 07:58 Dose: 100 mls/hr Levetiracetam 500 mg/ Sodium (Chloride) 105 mls @ 400 mls/hr IVPB Q12HR [facility] Last Admin: 02/05/22 08:06 Dose: 400 mls/hr Cefazolin Sodium 2 gm/ Sodium (Chloride) 50 mls @ 100 mls/hr IVPB Q8HR [facility]; Protocol Last Admin: 02/05/22 08:06 Dose: 100 mls/hr Propofol 1,000 mg/ IV Solution 100 mls @ 4.08 mls/hr IV .Q24H [facility]; Protocol Last Admin: 02/05/22 11:17 Dose: 40 mcg/kg/min, 32.64 mls/hr Norepinephrine Bitartrate 4 mg (/ Sodium Chloride) 254 mls @ 25.908 mls/hr IV .Q9H49M [facility]; Protocol Last Titration: 02/05/22 08:00 Dose: 0.03 mcg/kg/min, 15.545 mls/hr Insulin Aspart (Insulin Aspart (Novolog) 100 Unit/Ml Vial) 0 unit SQ Q6HR [facility]; Protocol Insulin Detemir (Insulin Detemir (Levemir) 100 Unit/Ml Syr) 14 unit SQ HS [facility] Last Admin: 02/04/22 20:56 Dose: 14 unit Iopamidol (Iopamidol Contrast (Oral Use) Vial) 30 ml PO Q60M PRN PRN Reason: CT Scan Stop: 02/06/22 08:01 Lactulose (Lactulose 20 Gm/30 Ml Cup) 20 gm PO DAILY PRN PRN Reason: Constipation Last Admin: 02/02/22 08:41 Dose: 20 gm Melatonin (Melatonin 3 Mg Tablet) 3 mg PO HS PRN PRN Reason: Insomnia Metoprolol Succinate (Metoprolol Succinate (Er) 25 Mg Tab.Er.24h) 25 mg PO BID [facility] Miscellaneous Information (Potassium Replacement Protocol 1 Each Misc) 1 each MISCELLANE DAILY PRN; Protocol PRN Reason: Per Protocol Miscellaneous Information (Warfarin Per Pharmacy) 1 each MISCELLANE DIRECTED PRN PRN Reason: Per Protocol Miscellaneous Information (Magnesium Replacement Protocol 1 Each Misc) 1 each MISCELLANE DAILY PRN; Protocol PRN Reason: Per Protocol Morphine Sulfate (Morphine Sulfate Er 15 Mg Tablet) 15 mg PO Q12HR [facility]; Protocol Last Admin: 02/05/22 07:59 Dose: Not Given Naloxone HCl (Naloxone 0.4 Mg/Ml 1 Ml Vial) 0.2 mg IV Q2M PRN PRN Reason: Opioid Reversal Nicotine (Nicotine 21mg/24hr Patch) 1 patch TRANSDERM DAILY [facility] Last Admin: 02/05/22 08:04 Dose: 1 patch Ondansetron HCl (Ondansetron 4 Mg/2 Ml Vial) 4 mg IVP Q8HR PRN PRN Reason: Nausea And Vomiting Last Admin: 02/02/22 08:41 Dose: 4 mg Pantoprazole Sodium (Pantoprazole 40 Mg/10 Ml Vial) 40 mg IVP BID [facility] Last Admin: 02/05/22 08:04 Dose: 40 mg Pregabalin (Pregabalin 100 Mg Cap) 100 mg PO BID [facility] Last Admin: 02/05/22 08:19 Dose: Not Given Tamsulosin HCl (Tamsulosin 0.4 Mg Cap.Er.24h) 0.4 mg PO PC-BRKFST [facility] Last Admin: 02/05/22 07:59 Dose: Not Given Warfarin Sodium (Warfarin 3 Mg Tab) 3 mg PO ONCE@1800 ONE Stop: 02/05/22 18:01 Past medical history to include: COPD, diabetes, hypertension, hyperlipidemia, back problems, TB, atrial fibrillation, on Coumadin Social history: Smokes a pack a day for close to 50 years. Stop doing alcohol some time ago. Lives with his significant other Sandra. Does use a walker. 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 Conjunctiva normal. HEENT: External appearance of nose and ears normal, oral cavity dry, NG tube, endotracheal tube NECK: JVD not raised; masses not palpable. HEART: Heart sounds irregular; mild edema. LUNGS: Respiratory rate increased; decreased breath sound, ABDOMEN: Soft, distended, nontender, liver spleen not palpable, no masses palpable. PSYCH: Unable to assess, patient lethargic DERMATOLOGICAL: Wound on right ankle lateral malleolus. Under dressing INVESTIGATIONS, reviewed in the clinical context: February 05: WBC 19.1 hemoglobin 11.5 platelets 179 potassium 3.7 BUN 37, creatinine 2.38. ABG: PH 7.24, pCO2 60, pO2 111 February 04: Obesity, 16.2, hemoglobin 12.4 potassium 4.3, BUN 36, creatinine 1.84 EEG: Evidence of encephalopathy. No obvious epileptiform activity. 2-D echocardiogram: EF 60-65%. February 03: WBC 18.5, hemoglobin 12.5 potassium 3.2, BUN 35, creatinine 1.77 February 02: CBC 7.5 hemoglobin 13.3 platelets 166 potassium 3 view and 29 creat inine 1.6 to Renal ultrasound: Shows bilateral normal cortical medullary thickness. February 01: WBC 17.1 hemoglobin 14.8 UA: Blood large, leukoesterase moderate WBC 28 nitrite negative Lumbar spine CT: Anterior wedge compression deformity of L1. Multiple level DJD. 7 mm calculus right renal pelvis. CT chest without contrast: Right lateral eighth through 10th rib fractures with associated gas trace hemothorax right lower lobe pulmonary contusion/atelectasis. Patchy) disease left upper lobe. WBC 25.8 hemoglobin 14.1 platelets 217 INR greater than 10 sodium 131 potassium 3.9. 24 creatinine 1.8 to EKG tracing personally reviewed by me-atrial flutter. Rate 132 Foot/Lumbar/sacral coccyx: Spondylitic changes. No fracture. Chest x-ray film personally reviewed by me-clinically. Possible hyperinflation Assessment and plan: -Coumadin toxicity. INR greater than 10.: Improved 10 mg vitamin K in the ER. Hemoptysis on presentation. Patient be started on Coumadin. - right lung contusion.-Secondary to fall/hip fracture. hemoptysis on presentation -Acute hypoxic respiratory failure, multifactorial: Worsening, ventilator support, GERD Patient intubated on February 05 -Acute COPD exacerbation, with chronic bronchitis component in a current smoker: Slow to respond DuoNeb. Nebulized Pulmicort. Mucinex. -Chronic nicotine dependence, cigarette smoker Nicotine patch -Persistent atrial flutter,: Remains controlled Lopressor 50 mg 3 times a day. 2-D echocardiogram unremarkable. IV amiodarone drip. Coumadin started on February 05 -Possible CK D with possible acute component. creatinine was 0.8 in April 2019. Renal ultrasound unremarkable. UA shows trace protein. IV fluids.. -Acute right-sided 8-10 ribs fracture secondary to fall K pad -Diabetes mellitus type 2, chronically on oral hypoglycemic Hold Glucotrol. Sliding scale insulin. Levemir 14 units daily at bedtime -Diabetic peripheral neuropathy Decreased dose of Lyrica in the setting of renal failure. 100 mg twice a day -Chronic low back pain: MS Contin 15 mg every 12, [place] 7.5 twice a day when necessary -Anxiety depression not otherwise specified Wellbutrin XL 100 mg twice a day -Hyperlipidemia Lipitor 40 mg daily at bedtime -Right ankle lateral, diabetic wound, stage II acute IV Ancef ID consulted. Patient has poor distal pulses. February 01 wound was debrided by Dr. Ibarra. Clean base. -Acute L1 30% wedge fracture secondary to fall LSO brace. Be followed by Dr. Damon -Acute delirium multifactorial. Slow to respond -Acute ileus, NG tube for decompression. Being followed by surgery IV Ancef. IV Cardizem drip-discontinued. IV amiodarone. IV fluids. Dressing to the right ankle. NG tube to suction. Discussed with girlfriend at the bedside. Prognosis guarded.
--- NOTE | 2022-02-05 14:01 | US ---
EXAMINATION TYPE: US carotid duplex BILAT DATE OF EXAM: 02/04/2022 COMPARISON: CLINICAL HISTORY: AMS, rule out Stenosis/occlusion. ICU patient. Poor historian. TECHNIQUE: Carotid duplex ultrasound examination. Indirect Doppler criteria was utilized. 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 No significant stenosis. Wa ll thickening. Grayscale, color, spectral Doppler imaging performed the carotid arteries. Waveform analysis does not show significant stenosis of the proximal internal carotid arteries. IMPRESSION: No hemodynamic significant stenosis of the proximal internal carotid arteries by Doppler criteria, an indirect measurement of carotid stenosis Criteria for Assigning % of Stenosis / Diameter reduction (Estimation based on the indirect measurements of the internal carotid artery velocities (ICA PSV). 1. Normal (no stenosis)=ICA PSV < 125 cm/s: ratio < 2.0: ICA EDV<40 cm/s. 2. Less than 50% stenosis=ICA PSV < 125 cm/s: ratio < 2.0: ICA EDV<40 cm/s. 3. 50 to 69% stenosis=ICA PSV of 125 to 230 cm/s: ration 2.0 ? 4.0: ICA EDV 40-100 cm/s. 4. Greater than 70% stenosis to near occlusion= ICA PSV > 230 cm/s: ratio > 4.0: ICA EDV > 100 cm/s. 5. Near occlusion= ICA PSV velocities may be low or undetectable: variable ratio and ICA EDV. 6. Total occlusion=unable to detect flow.
[2022-02-05] MEDS: AMIODARONE 200 MG TAB PO SCH ×2 (14:26→20:21)
--- NOTE | 2022-02-05 16:22 | P.PN ---
Subjective Progress Note Date: 02/03/22 Principal diagnosis: Right foot infected pressure ulcer and bacteremia Patient is a 61-year-old male presented to the hospital for evaluation of fall patient also noticed to have a wound on the right lateral foot with some necrotic edges which has been debridement by vascular surgery on 01/31/2022. On today's evaluation that is 02/03/2022, , The patient remains to be afebrile, the patient did have significant mental status changes and unable to provide any history no vomiting or diarrhea or any other changes were reported by the nursing staff Objective - Vital Signs Vital signs: Vital Signs Temp 97.6 F 02/03/22 12:00 Pulse 121 H 02/03/22 20:50 Resp 25 H 02/03/22 12:00 BP 149/74 02/03/22 12:00 Pulse Ox 93 L 02/03/22 12:00 FiO2 Intake & Output 02/03/22 02/03/22 02/04/22 06:59 18:59 06:59 Intake Total 387.75 625 312.5 Output Total 2729 325 50 Balance -2341.25 300 262.5 Weight 136.07 kg Intake: IV 220 500 200 Carrier w/ Cartizem 200 Invasive Line 3 20 Sodium Chloride 0.9% 1, 500 100 000 ml @ 100 mls/hr IV . Q10H [facility] Rx#:[id number] levETIRAcetam IV 500 mg 100 In Sodium Chloride 0.9% 100 ml @ 400 mls/hr IVPB Q12HR [facility] Rx#:[id number] Intake, IV Titration 167.75 125 112.5 Amount Diltiazem 125 mg In 117.75 125 112.5 Sodium Chloride 0.9% 100 ml @ 15 MG/HR 15 mls/hr IV .Q8H20M [facility] Rx#: [id number] ceFAZolin 2 gm In Sodium 50 Chloride 0.9% 50 ml @ 100 mls/hr IVPB Q8HR [facility] Rx# :[id number] Output: Gastric Drainage 220 Urine 2509 325 50 Uretheral (Shepard) 1800 Other: Voiding Method Indwelling Catheter Indwelling Catheter Indwelling Catheter # Bowel Movements 0 - Exam GENERAL DESCRIPTION: Middle-age male lying in bed in no distress RESPIRATORY SYSTEM: Unlabored breathing , decreased breath sounds at bases HEART: S1 S2 regular rate and rhythm , ABDOMEN: Soft , no tenderness EXTREMITIES: Right foot wound is currently dressed no drainage wound dressing - Labs CBC & Chem 7: 02/05/22 05:29 02/05/22 05:29 Labs: Abnormal Lab Results - Last 24 Hours (Table) 02/02/22 02/03/22 02/03/22 Range/Units 21:40 01:52 05:31 WBC 18.5 H (3.8-10.6) k/uL Hgb 12.5 L (13.0-17.5) gm/dL MCHC 30.6 L (31.0-37.0) g/dL RDW 15.6 H (11.5-15.5) % Neutrophils # 16.5 H (1.3-7.7) k/uL Lymphocytes # 0.7 L (1.0-4.8) k/uL Potassium (3.5-5.1) mmol/L BUN (9-20) mg/dL Creatinine (0.66-1.25) mg/dL Glucose (74-99) mg/dL POC Glucose (mg/dL) 156 H 172 H (70-110) mg/dL Calcium (8.4-10.2) mg/dL Total Bilirubin (0.2-1.3) mg/dL Alkaline Phosphatase (38-126) U/L Total Protein (6.3-8.2) g/dL Albumin (3.5-5.0) g/dL 02/03/22 02/03/22 02/03/22 Range/Units 05:31 06:50 12:36 WBC (3.8-10.6) k/uL Hgb (13.0-17.5) gm/dL MCHC (31.0-37.0) g/dL RDW (11.5-15.5) % Neutrophils # (1.3-7.7) k/uL Lymphocytes # (1.0-4.8) k/uL Potassium 3.2 L (3.5-5.1) mmol/L BUN 35 H (9-20) mg/dL Creatinine 1.77 H (0.66-1.25) mg/dL Glucose 142 H (74-99) mg/dL POC Glucose (mg/dL) 114 H 140 H (70-110) mg/dL Calcium 7.7 L (8.4-10.2) mg/dL Total Bilirubin 1.7 H (0.2-1.3) mg/dL Alkaline Phosphatase 157 H (38-126) U/L Total Protein 5.7 L (6.3-8.2) g/dL Albumin 2.5 L (3.5-5.0) g/dL Microbiology - Last 24 Hours (Table) 01/31/22 21:47 Blood Culture Gram Stain - Final Blood Blood Culture - Final Staphylococcus aureus 01/31/22 18:55 Blood Culture Gram Stain - Final Blood Blood Culture - Preliminary Staphylococcus aureus Staphylococcus epidermidis 02/01/22 08:55 Blood Culture Gram Stain - Preliminary Blood Blood Culture - Preliminary Presumptive Staph aureus 01/31/22 06:45 Anaerobic Culture - Preliminary Ankle - Right Lynda albicans Assessment and Plan (1) Cellulitis Current Visit: Yes Status: Acute Code(s): L03.90 - CELLULITIS, UNSPECIFIED SNOMED Code(s): 786668887 Plan: 1patient with right foot unstageable pressure ulcer with surrounding necrotic area and cellulitis x-rays do not show any bony changes likely from gram- positive skin caleb and less likely gram-negative pathogen, patient is status post vascular surgery evaluation and debridement and deep culture. 2-patient with MSSA bacteremia source is likely right foot infected pressure ulcer, Repeat blood culture has been negative so far. 3patient to continue cefazolin 2 g every 8 hour and monitor clinical course closely Time with Patient: Less than 30
--- NOTE | 2022-02-05 16:24 | P.PN ---
Subjective Progress Note Date: 02/04/22 Principal diagnosis: Right foot infected pressure ulcer and bacteremia Patient is a 61-year-old male presented to the hospital for evaluation of fall patient also noticed to have a wound on the right lateral foot with some necrotic edges which has been debridement by vascular surgery on 01/31/2022.Patient has been transthoracic because of significant mental status changes On today's evaluation that is 02/04/2022, The patient continues to be afebrile, the patient remains to be lethargic and unable to provide any history no vomiting diarrhea or any other changes were reported by the nursing staff Objective - Vital Signs Vital signs: Vital Signs Temp 97.6 F 02/03/22 12:00 Pulse 138 H 02/04/22 11:13 Resp 27 H 02/03/22 12:17 BP 146/71 02/03/22 12:17 Pulse Ox 95 02/04/22 07:58 FiO2 Intake & Output 02/03/22 02/04/22 02/04/22 18:59 06:59 18:59 Intake Total 625 1937.5 550 Output Total 325 710 215 Balance 300 1227.5 335 Weight 136 kg Intake: IV 500 1700 550 Potassium Chloride 10 meq 400 In Water For Injection 1 100ml.bag @ 100 mls/hr IVPB Q1HR [facility] Rx#: [id number] Sodium Chloride 0.9% 1, 500 1100 400 000 ml @ 100 mls/hr IV . Q10H [facility] Rx#:[id number] ceFAZolin 2 gm In Sodium 100 50 Chloride 0.9% 50 ml @ 100 mls/hr IVPB Q8HR [facility] Rx# :[id number] levETIRAcetam IV 500 mg 100 100 In Sodium Chloride 0.9% 100 ml @ 400 mls/hr IVPB Q12HR [facility] Rx#:[id number] Intake, IV Titration 125 237.5 Amount Diltiazem 125 mg In 125 237.5 Sodium Chloride 0.9% 100 ml @ 15 MG/HR 15 mls/hr IV .Q8H20M [facility] Rx#: [id number] Output: Urine 325 710 215 Other: Voiding Method Indwelling Catheter Indwelling Catheter Indwelling Catheter - Exam GENERAL DESCRIPTION: Middle-age male lying in bed in no distress RESPIRATORY SYSTEM: Unlabored breathing , decreased breath sounds at bases HEART: S1 S2 regular rate and rhythm , ABDOMEN: Soft , no tenderness EXTREMITIES: Right foot wound With slough tissue surrounding redness has improved no foul-smelling drainage - Labs CBC & Chem 7: 02/05/22 05:29 02/05/22 05:29 Labs: Abnormal Lab Results - Last 24 Hours (Table) 02/03/22 02/03/22 02/04/22 Range/Units 12:36 21:07 00:35 WBC (3.8-10.6) k/uL Hgb (13.0-17.5) gm/dL MCHC (31.0-37.0) g/dL RDW (11.5-15.5) % Neutrophils # (1.3-7.7) k/uL Lymphocytes # (1.0-4.8) k/uL PT (9.0-12.0) sec INR (<1.2) Potassium 3.1 L (3.5-5.1) mmol/L BUN (9-20) mg/dL Creatinine (0.66-1.25) mg/dL Glucose (74-99) mg/dL POC Glucose (mg/dL) 140 H 162 H (70-110) mg/dL Calcium (8.4-10.2) mg/dL 02/04/22 02/04/22 02/04/22 Range/Units 03:54 03:54 03:54 WBC 16.2 H (3.8-10.6) k/uL Hgb 12.4 L (13.0-17.5) gm/dL MCHC 30.3 L (31.0-37.0) g/dL RDW 16.1 H (11.5-15.5) % Neutrophils # 14.7 H (1.3-7.7) k/uL Lymphocytes # 0.5 L (1.0-4.8) k/uL PT 15.5 H (9.0-12.0) sec INR 1.5 H (<1.2) Potassium (3.5-5.1) mmol/L BUN 36 H (9-20) mg/dL Creatinine 1.84 H (0.66-1.25) mg/dL Glucose 139 H (74-99) mg/dL POC Glucose (mg/dL) (70-110) mg/dL Calcium 7.7 L (8.4-10.2) mg/dL 02/04/22 02/04/22 Range/Units 06:26 11:32 WBC (3.8-10.6) k/uL Hgb (13.0-17.5) gm/dL MCHC (31.0-37.0) g/dL RDW (11.5-15.5) % Neutrophils # (1.3-7.7) k/uL Lymphocytes # (1.0-4.8) k/uL PT (9.0-12.0) sec INR (<1.2) Potassium (3.5-5.1) mmol/L BUN (9-20) mg/dL Creatinine (0.66-1.25) mg/dL Glucose (74-99) mg/dL POC Glucose (mg/dL) 142 H 147 H (70-110) mg/dL Calcium (8.4-10.2) mg/dL Microbiology - Last 24 Hours (Table) 01/31/22 21:47 Blood Culture Gram Stain - Final Blood Blood Culture - Final Staphylococcus aureus 01/31/22 18:55 Blood Culture Gram Stain - Final Blood Blood Culture - Preliminary Staphylococcus aureus Staphylococcus epidermidis 02/01/22 08:55 Blood Culture Gram Stain - Preliminary Blood Blood Culture - Preliminary Presumptive Staph aureus 01/31/22 06:45 Anaerobic Culture - Preliminary Ankle - Right Lynda albicans Assessment and Plan (1) Cellulitis Current Visit: Yes Status: Acute Code(s): L03.90 - CELLULITIS, UNSPECIFIED SNOMED Code(s): 976399299 Plan: 1patient with right foot unstageable pressure ulcer with surrounding necrotic area and cellulitis x-rays do not show any bony changes likely from gram- positive skin caleb and less likely gram-negative pathogen, patient is status post vascular surgery evaluation and debridement and deep culture. 2-patient with MSSA bacteremia source is likely right foot infected pressure ulcer, Repeat blood culture has been negative so far. 3Pt Clinical condition remains to be guarded especially with his mental status changes as far as MSSA bacteremia we will keep the patient on cefazolin and monitor clinical course closely Time with Patient: Less than 30
--- NOTE | 2022-02-05 16:26 | P.PN ---
Subjective Progress Note Date: 02/05/22 Principal diagnosis: Right foot infected pressure ulcer and bacteremia Patient is a 61-year-old male presented to the hospital for evaluation of fall patient also noticed to have a wound on the right lateral foot with some necrotic edges which has been debridement by vascular surgery on 01/31/2022.Patient has been transthoracic because of significant mental status changes, The patient ended up getting intubated last night On today's evaluation that is 02/05/2022, The patient did have a low-grade fever 100.1 last night the patient is afebrile this morning the patient is intubated on the vent with FiO2 45% no significant purulent secretion through the ET diarrhea or any other changes reported by the nursing staff Objective - Vital Signs Vital signs: Vital Signs Temp 99.6 F 02/05/22 12:00 Pulse 96 02/05/22 13:00 Resp 12 02/05/22 13:00 BP 86/52 02/05/22 13:00 Pulse Ox 94 L 02/05/22 13:00 FiO2 45 02/05/22 12:00 Intake & Output 02/04/22 02/05/22 02/05/22 18:59 06:59 18:59 Intake Total 1400 1808.579 714.272 Output Total 650 720 90 Balance 750 1088.579 624.272 Weight 136 kg 136 kg Intake: IV 1400 1400 650 Sodium Chloride 0.9% 1, 1200 1200 500 000 ml @ 100 mls/hr IV . Q10H [facility] Rx#:[id number] ceFAZolin 2 gm In Sodium 100 100 50 Chloride 0.9% 50 ml @ 100 mls/hr IVPB Q8HR [facility] Rx# :[id number] levETIRAcetam IV 500 mg 100 100 100 In Sodium Chloride 0.9% 100 ml @ 400 mls/hr IVPB Q12HR [facility] Rx#:[id number] Intake, IV Titration 408.579 64.272 Amount Amiodarone 450 mg In 216.671 Dextrose 5% in Water 250 ml @ 0.5 MG/MIN 16.667 mls/hr IV .Q15H [facility] Rx#: [id number] Diltiazem 125 mg In 184 0 Sodium Chloride 0.9% 100 ml @ 10 MG/HR 10 mls/hr IV .[id number] [facility] Rx#: [id number] Norepinephrine 4 mg In 7.772 37.48 Sodium Chloride 0.9% 250 ml @ 0.05 MCG/KG/MIN 25. 908 mls/hr IV .Q9H49M [facility] Rx#:[id number] propofoL 1,000 mg In 0.136 26.792 Empty Bag 1 bag @ 5 MCG/ KG/MIN 4.08 mls/hr IV . Q24H [facility] Rx#:[id number] Output: Urine 650 720 90 Other: Voiding Method Indwelling Catheter Indwelling Catheter Indwelling Catheter ABP, PAP, CO, CI - Last Documented Arterial Blood Pressure 119/56 - Exam GENERAL DESCRIPTION: Middle-aged male intubated on the vent. LUNGS: Unlabored breathing. Decreased breath sound at the base HEART: S1, S2, regular rate and rhythm. No loud murmur ABDOMEN: Soft, no tenderness , guarding or rigidity, no organomegaly EXTREMITIES: Right foot wound is currently dressed no drainage on the dressing - Labs CBC & Chem 7: 02/05/22 05:29 02/05/22 05:29 Labs: Abnormal Lab Results - Last 24 Hours (Table) 02/04/22 02/04/22 02/05/22 Range/Units 18:26 23:45 05:29 WBC 19.1 H (3.8-10.6) k/uL RBC 4.20 L (4.30-5.90) m/uL Hgb 11.5 L (13.0-17.5) gm/dL MCHC 28.6 L (31.0-37.0) g/dL RDW 16.0 H (11.5-15.5) % Neutrophils # (Manual) 17.00 H (1.3-7.7) k/uL Lymphocytes # (Manual) 0.76 L (1.0-4.8) k/uL Monocytes # (Manual) 1.34 H (0-1.0) k/uL Metamyelocytes # (Man) 0.19 H (0) k/uL PT (9.0-12.0) sec INR (<1.2) ABG pH (7.35-7.45) ABG pCO2 (35-45) mmHg ABG pO2 (83-108) mmHg ABG HCO3 (21-25) mmol/L ABG Total CO2 (19-24) mmol/L ABG O2 Saturation (94-97) % Hemoglobin (13.0-17.5) gm/dL Chloride (98-107) mmol/L BUN (9-20) mg/dL Creatinine (0.66-1.25) mg/dL Glucose (74-99) mg/dL POC Glucose (mg/dL) 134 H 132 H (70-110) mg/dL Calcium (8.4-10.2) mg/dL 02/05/22 02/05/22 02/05/22 Range/Units 05:29 05:29 05:53 WBC (3.8-10.6) k/uL RBC (4.30-5.90) m/uL Hgb (13.0-17.5) gm/dL MCHC (31.0-37.0) g/dL RDW (11.5-15.5) % Neutrophils # (Manual) (1.3-7.7) k/uL Lymphocytes # (Manual) (1.0-4.8) k/uL Monocytes # (Manual) (0-1.0) k/uL Metamyelocytes # (Man) (0) k/uL PT 18.5 H (9.0-12.0) sec INR 1.8 H (<1.2) ABG pH (7.35-7.45) ABG pCO2 (35-45) mmHg ABG pO2 (83-108) mmHg ABG HCO3 (21-25) mmol/L ABG Total CO2 (19-24) mmol/L ABG O2 Saturation (94-97) % Hemoglobin (13.0-17.5) gm/dL Chloride 109 H (98-107) mmol/L BUN 37 H (9-20) mg/dL Creatinine 2.38 H (0.66-1.25) mg/dL Glucose 151 H (74-99) mg/dL POC Glucose (mg/dL) 130 H (70-110) mg/dL Calcium 7.9 L (8.4-10.2) mg/dL 02/05/22 02/05/22 Range/Units 06:09 07:22 WBC (3.8-10.6) k/uL RBC (4.30-5.90) m/uL Hgb (13.0-17.5) gm/dL MCHC (31.0-37.0) g/dL RDW (11.5-15.5) % Neutrophils # (Manual) (1.3-7.7) k/uL Lymphocytes # (Manual) (1.0-4.8) k/uL Monocytes # (Manual) (0-1.0) k/uL Metamyelocytes # (Man) (0) k/uL PT (9.0-12.0) sec INR (<1.2) ABG pH 7.12 L* 7.24 L (7.35-7.45) ABG pCO2 85 H* 60 H (35-45) mmHg ABG pO2 137 H 111 H (83-108) mmHg ABG HCO3 27 H 26 H (21-25) mmol/L ABG Total CO2 30 H 28 H (19-24) mmol/L ABG O2 Saturation 98.6 H 98.5 H (94-97) % Hemoglobin 11.4 L 12.4 L (13.0-17.5) gm/dL Chloride (98-107) mmol/L BUN (9-20) mg/dL Creatinine (0.66-1.25) mg/dL Glucose (74-99) mg/dL POC Glucose (mg/dL) (70-110) mg/dL Calcium (8.4-10.2) mg/dL Microbiology - Last 24 Hours (Table) 02/04/22 09:39 Blood Culture - Preliminary Blood No Growth after 24 hours 02/04/22 09:39 Blood Culture - Preliminary Blood No Growth after 24 hours 02/01/22 08:55 Blood Culture Gram Stain - Final Blood Blood Culture - Final Staphylococcus aureus 01/31/22 06:45 Anaerobic Culture - Preliminary Ankle - Right Lynda albicans Assessment and Plan (1) Cellulitis Current Visit: Yes Status: Acute Code(s): L03.90 - CELLULITIS, UNSPECIFIED SNOMED Code(s): 603951217 Plan: 1patient with right foot unstageable pressure ulcer with surrounding necrotic area and cellulitis x-rays do not show any bony changes likely from gram- positive skin caleb and less likely gram-negative pathogen, patient is status post vascular surgery evaluation and debridement and deep cultureWhich has been finalized with strep and MSSA. 2-patient with MSSA bacteremia source is likely right foot infected pressure ulcer, Repeat blood culture has been negative 3Patient to continue with the cefazolin 2 g every 8 hours and will monitor his clinical course closely prognosis remains to be guarded Time with Patient: Less than 30
[2022-02-05] MEDS ORDERED: WARFARIN 3 MG TAB PO ONE (18:00)
[2022-02-05 18:08] LABS: Glucose,Whole Blood 95 mg/dL (70-110)
[2022-02-05] MEDS: INSULIN DETEMIR (LEVEMIR) 100 UNIT/ML SYR SQ SCH (20:21)
[2022-02-05] MEDS: METOPROLOL TARTRATE 25 MG TAB PO SCH (20:34)
--- NOTE | 2022-02-05 20:42 | OP ---
OPERATIVE REPORT PROCEDURE PERFORMED: Placement of the right radial arterial line. PREOPERATIVE DIAGNOSIS: Acute hypercapnic and hypoxic respiratory failure. POSTOPERATIVE DIAGNOSIS: Acute hypercapnic and hypoxic respiratory failure. ANESTHESIA USED: None deployed. DESCRIPTION OF PROCEDURE: The right wrist was prepared in a sterile fashion, the drapes were applied. The right radial artery was palpated, cannulated, and a guidewire was placed. A Cook catheter was inserted over the guidewire, and the guidewire was removed. Good blood flow, good waveform noted, no complications. Line was secured using 3-0 silk sutures. MMODL / IJN: [id number] /
--- NOTE | 2022-02-05 20:50 | OP ---
OPERATIVE REPORT PROCEDURE PERFORMED: Placement of a right subclavian triple-lumen catheter. PREOPERATIVE DIAGNOSES: Acute hypoxic respiratory failure and hypercapnic respiratory failure. POSTOPERATIVE DIAGNOSES: Acute hypoxic respiratory failure and hypercapnic respiratory failure. ANESTHESIA USED: 2 mL of 1% lidocaine. DESCRIPTION OF PROCEDURE: The patient was placed in a supine position, the area of the right subclavian region was prepared in a sterile fashion and drapes were applied. The area below the right clavicle was anesthetized and lidocaine was injected under the clavicle. Then, the right subclavian vein was easily cannulated, a guidewire was placed, and the area around the guidewire was dilated. Then, a triple-lumen catheter was inserted over the guidewire and the guidewire was removed. Good blood flow noted in the 3 different ports of the triple-lumen catheter. The line was secured using 3.0 silk sutures. Chest x-ray showed no complications, and the procedure was well tolerated. MMODL / IJN: [id number] /
[2022-02-05 23:55] LABS: Glucose,Whole Blood 66 mg/dL (70-110)
[2022-02-06] MEDS: DEXTROSE 50% SYRINGE 50 ML IVP PRN ×3 (00:14→18:11)
[2022-02-06] MEDS: INSULIN ASPART (NovoLOG) 100 UNIT/ML VIAL SQ SCH ×4 (00:17→18:22)
[2022-02-06 01:22] LABS: Glucose,Whole Blood 85 mg/dL (70-110)
[2022-02-06] MEDS ORDERED: SODIUM CHLORIDE 0.9% 1,000 ML IV ONE ×2 (02:40→08:53)
[2022-02-06] MEDS: SODIUM CHLORIDE 0.9% 1,000 ML IV SCH ×2 (03:20→15:26)
[2022-02-06 04:38] LABS: Anisocytosis Slight; HCT 34.7 % (39.0-53.0); HGB 10.5 gm/dL (13.0-17.5); Hypochromasia Marked; MCH 27.9 pg (25.0-35.0); MCHC 30.2 g/dL (31.0-37.0); MCV 92.4 fL (80.0-100.0); Mean Platelet Volume 8.9; Platelet Count 160 k/uL (150-450); RBC 3.75 m/uL (4.30-5.90); RDW 16.2 % (11.5-15.5); WBC 16.4 k/uL (3.8-10.6)
[2022-02-06 04:46] LABS: Calcium 7.2 mg/dL (8.4-10.2)
[2022-02-06] MEDS ORDERED: FUROSEMIDE 10 MG/ML 10 ML VIAL IV STA (05:07)
[2022-02-06] MEDS: POTASSIUM BICARBONATE/CIT AC 20 MEQ TABLET.EFF NG-TUBE SCH ×5 (05:12→21:51)
[2022-02-06 05:42] LABS: INR 2.1 (<1.2); Prothrombin Time 21.3 sec (9.0-12.0)
[2022-02-06 05:59] LABS: ABG Base Excess -4.1 mmol/L; ABG HCO3 21 mmol/L (21-25); ABG Hematocrit 34 % (34.0-46.0); ABG PCO2 37 mmHg (35-45); ABG PH 7.37 (7.35-7.45); ABG PO2 85 mmHg (83-108); ABG TCO2 22 mmol/L (19-24); Allen Test Performed? Yes
[2022-02-06 06:13] LABS: Glucose,Whole Blood 71 mg/dL (70-110)
[2022-02-06] MEDS: TAMSULOSIN 0.4 MG CAP.ER.24H PO SCH (07:44)
[2022-02-06] MEDS: guaiFENesin 600 MG TABLET.ER PO SCH ×4 (07:44→22:31)
[2022-02-06] MEDS: levETIRAcetam IV 500 MG in SODIUM CHLORIDE 0.9% 100 ML IVPB SCH ×2 (07:48→21:31)
[2022-02-06] MEDS: CHLORHEXIDINE GLUCONATE 15 ML CUP MUCOUS MEM SCH ×2 (07:49→21:25)
[2022-02-06] MEDS: NICOTINE 21MG/24HR PATCH TRANSDERM SCH (07:49)
[2022-02-06] MEDS: COLLAGENASE 250 UNIT/GM OINTMENT 30 GM TUBE TOPICAL SCH (07:49)
[2022-02-06] MEDS: METOPROLOL TARTRATE 25 MG TAB PO SCH ×2 (07:49→21:26)
[2022-02-06] MEDS: MORPHINE SULFATE ER 15 MG TABLET PO SCH ×2 (07:49→21:26)
[2022-02-06] MEDS: AMIODARONE 200 MG TAB PO SCH ×2 (07:49→21:22)
[2022-02-06] MEDS: IPRATROPIUM-ALBUTEROL 3 ML NEB INHALATION SCH ×4 (07:57→19:36)
[2022-02-06] MEDS: BUDESONIDE 1 MG/2 ML NEBU INHALATION SCH ×2 (07:57→19:36)
[2022-02-06] MEDS ORDERED: IOPAMIDOL CONTRAST (ORAL USE) VIAL PO PRN (08:00)
--- NOTE | 2022-02-06 08:22 | XR ---
EXAMINATION TYPE: XR chest 1V portable DATE OF EXAM: 02/06/2022 COMPARISON: [id number] HISTORY: Line placement TECHNIQUE: Single frontal view of the chest is obtained. FINDINGS: Bilateral infiltrate and pleural effusion with cardiomegaly. ET and NG tube noted. Right-s ided central line seen. No sizable pneumothorax. Coarsened interstitium. IMPRESSION: Stable pleural-parenchymal changes correlate for CHF otherwise consider pneumonia.
[2022-02-06] MEDS: IOPAMIDOL CONTRAST (ORAL USE) VIAL PO PRN ×2 (09:01→09:38)
--- NOTE | 2022-02-06 10:34 | P.NPCON ---
History of Present Illness - Reason for Consult acute renal failure - History of Present Illness Patient is a 61-year-old male with underlying history of hypertension, diabetes, hyperlipidemia chronic back pain. He shouldn't was admitted to the hospital with a history of fall. Patient had been down for about 24 hours before he was brought in. Right ankle wound was noted for which patient is maintained on antibiotics. Wound culture and blood cultures have been growing staph aureus and patient is maintained on antibiotics. He received vancomycin initially and currently maintained on cefazolin. Yesterday patient developed worsening respiratory distress and was intubated. He was also hypotensive requiring levo fed. Urine output dropped to 0-5 mL an hour yesterday and seems to have picked up now to about 20 to 40 mL per hour for the last few hours. Levo fed is being decreased Currently maintained on IV fluids and status post 3 L of fluid bolus. No IV contrast noted No hydronephrosis noted on ultrasound Serum creatinine was 1.8 on initial admission and decreased to about 1.6 mg/dL. It has increased up to 3.1 mg/dL today. Previous creatinine 0.8 on 05/29/2019 Review of Systems As per HPI Past Medical History Past Medical History: COPD, Diabetes Mellitus, Hyperlipidemia, Hypertension Additional Past Medical History / Comment(s): back problems, TB History of Any Multi-Drug Resistant Organisms: None Reported Additional Past Surgical History / Comment(s): plate in skull, neck surgery Past Anesthesia/Blood Transfusion Reactions: No Reported Reaction Past Psychological History: No Psychological Hx Reported Smoking Status: Current every day smoker, Heavy tobacco smoker Past Alcohol Use History: None Reported Past Drug Use History: Marijuana Medications and Allergies Home Medications Medication Instructions Recorded Confirmed Type Pregabalin [Lyrica] 200 mg PO BID #6 cap 08/28/17 01/31/22 Rx Albuterol Inhaler [Ventolin Hfa 2 puff INHALATION RT-Q6H PRN 01/31/22 01/31/22 History Inhaler] Albuterol Nebulized [Ventolin 2.5 mg INHALATION RT-Q6H PRN 01/31/22 01/31/22 History Nebulized] Atorvastatin [Lipitor] 40 mg PO HS 01/31/22 01/31/22 History HYDROcodone/APAP 7.5-325MG [Secor 1 tab PO BID PRN 01/31/22 01/31/22 History 7.5-325] Metoprolol Tartrate [Lopressor] 50 mg PO TID 01/31/22 01/31/22 History Morphine Sulfate ER [Ms Contin] 15 mg PO Q12HR 01/31/22 01/31/22 History Tiotropium [place] [Spiriva] 1 puff INHALATION RT-DAILY 01/31/22 01/31/22 History Warfarin [Coumadin] 2.5 mg PO MOFR@209901/31/22 01/31/22 History Warfarin [Coumadin] 5 mg PO SUTUWETHSA@209901/31/22 01/31/22 History buPROPion XL [Wellbutrin XL] 150 mg PO BID 01/31/22 01/31/22 History glipiZIDE [Glucotrol] 10 mg PO BID 01/31/22 01/31/22 History Allergies Allergy/AdvReac Type Severity Reaction Status Date / Time phenytoin [From Dilantin] Allergy Unknown Verified 01/31/22 11:46 Physical Exam Vitals: Vital Signs Temp Pulse Resp BP Pulse Ox FiO2 02/06/22 08:08 78 02/06/22 07:57 75 02/06/22 07:25 45 02/06/22 07:00 75 24 94 L 02/06/22 06:00 73 20 95 02/06/22 05:00 73 20 96 02/06/22 04:25 45 02/06/22 04:00 98.9 F 73 20 96 45 02/06/22 03:00 72 20 96 02/06/22 02:00 73 20 97 02/06/22 01:00 72 20 98 02/06/22 00:00 99.0 F 73 20 98 45 02/05/22 23:36 45 02/05/22 23:00 72 20 96 02/05/22 22:15 73 20 96 02/05/22 22:00 75 20 96 02/05/22 21:00 81 20 95 02/05/22 20:00 75 20 95 45 02/05/22 19:57 98 02/05/22 19:38 75 02/05/22 19:37 45 02/05/22 19:00 80 24 96 02/05/22 18:00 75 24 95 02/05/22 17:00 80 24 96 02/05/22 16:00 99.2 F 75 24 95 45 02/05/22 15:41 45 02/05/22 15:39 75 02/05/22 15:29 75 02/05/22 15:00 98 24 95 02/05/22 14:00 75 24 95 02/05/22 13:00 96 12 86/52 94 L 02/05/22 12:00 99.6 F 75 24 91 L 45 02/05/22 11:10 100 02/05/22 11:00 103 H 9 L 98 02/05/22 10:54 101 H 02/05/22 10:49 45 Intake and Output 02/05/22 02/06/22 02/06/22 22:59 06:59 14:59 Intake Total 2222.034 2100 185.952 Output Total 115 65 50 Balance 2107.034 2035 135.952 Intake: IV 1900 1800 100 Sodium Chloride 0.9% 1, 750 800 100 000 ml @ 100 mls/hr IV . Q10H [facility] Rx#:[id number] Sodium Chloride 0.9% 1, 1000 1000 000 ml @ 999 mls/hr IV . Q1H1M [facility] Rx#:[id number] ceFAZolin 2 gm In Sodium 50 Chloride 0.9% 50 ml @ 100 mls/hr IVPB Q8HR [facility] Rx# :[id number] levETIRAcetam IV 500 mg 100 In Sodium Chloride 0.9% 100 ml @ 400 mls/hr IVPB Q12HR [facility] Rx#:[id number] Intake, IV Titration 322.034 300 85.952 Amount Norepinephrine 4 mg In 222.034 Sodium Chloride 0.9% 250 ml @ 0.05 MCG/KG/MIN 25. 908 mls/hr IV .Q9H49M [facility] Rx#:[id number] propofoL 1,000 mg In 100 300 85.952 Empty Bag 1 bag @ 5 MCG/ KG/MIN 4.08 mls/hr IV . Q24H [facility] Rx#:[id number] Output: Urine 115 65 50 Other: Voiding Method Indwelling Catheter Indwelling Catheter Weight 127.1 kg ABP, PAP, CO, CI - Last 8 Hours Arterial Blood Pressure 115/43 Arterial Blood Pressure 149/50 Arterial Blood Pressure 124/47 Arterial Blood Pressure 127/47 Arterial Blood Pressure 154/57 Patient is sedated and on the vent FiO2 is at 45% Examination of the heart S1 and S2 Examination of the lungs bilateral breath sounds are heard Abdomen is soft obese Examination of lower extremities shows no significant edema right foot is currently wrapped GLOBAL LEAD exam cannot be performed Results - Lab Results Most recent lab results ABG pH 7.37 (7.35-7.45) 02/06/22 05:55 ABG pCO2 37 mmHg (35-45) 02/06/22 05:55 ABG pO2 85 mmHg (83-108) 02/06/22 05:55 ABG HCO3 21 mmol/L (21-25) 02/06/22 05:55 ABG O2 Saturation 97.0 % (94-97) 02/06/22 05:55 Calcium 7.2 mg/dL (8.4-10.2) L 02/06/22 03:55 Phosphorus 3.0 mg/dL (2.5-4.5) 02/04/22 03:54 Magnesium 2.3 mg/dL (1.6-2.3) 02/05/22 05:29 02/06/22 03:55 02/06/22 03:55 Assessment and Plan Assessment: 1. Acute kidney injury ATN secondary to sepsis and hypotension. 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 Rule out vancomycin toxicity although currently not on it. Urine output has improved slightly. Can repeat another IV fluid bolus. Continue to avoid nephrotoxic agents. UA on initial admission showed significant hematuria. 2. Acute hypoxic, hypercapnic respiratory failure currently on the vent 3. MSSA bacteremia initially on vancomycin and currently on cefazolin. Last blood cultures drawn on 02/04/2022 are negative, source is likely the foot. A TIFFANI was being considered 4. Hypokalemia currently being replaced patient had received loop diuretics 5. GI bleed Plan: Repeat Another Liter of Fluid Bolus Continue to Try to Wean off Pressors Continue with Current Antibiotics Check Vancomycin Level Repeat Labs in A.M. Replace Potassium Thank You for the Consultation. We'll Continue to Follow the Patient with You during His Hospitalization
--- NOTE | 2022-02-06 10:54 | CT ---
EXAMINATION TYPE: CT abdomen pelvis wo con DATE OF EXAM: 02/06/2022 COMPARISON: None HISTORY: 61-year-old male abdominal distention, dilated bowel, leukocytosis CT DLP: 1795.2 mGycm. Automated exposure control for dose reduction was used. TECHNIQUE: Contiguous axial scanning of the abdomen and pelvis without IV contrast. Coronal and sagit kylee reconstructions performed. FINDINGS: Per the technologist, large ICU patient on ventilator. Unable to bring the patient's arms up. Heart normal size without pericardial effusion. There are small bilateral pleural effusions. Airspace disease basilar lower lobes, right greater than left. NG tube is in place. Trace abdominopelvic ascites. Generalized anasarca change. Noncontrast appearance of the liver, spleen, and mildly atrophic pancreas show no gross abnormality. Gallbladder hydropic at 5.1 cm wide probably due to fasting state. No significant surrounding fat str anding. Bilateral perinephric edema. Suspected 2.2 cm cyst mid pole left kidney. There are 2 calcifications m easuring up to 6 mm within the left renal pelvis and an additional nonobstructive 4 mm stone at the m idpole. Mild diffuse thickening of the bilateral adrenal glands is noted. No dilated small bowel or free air. Oral contrast is noted within the stomach and proximal to mid small bowel loops. Distal small bowel i s collapsed. Edema and some ascites tracks down the paracolic gutters and right greater the left retroperitoneum l ikely due to dependent positioning. Some of this confluent edema is located in the right lower quadra nt near the expected region of the appendix. There is some circumferential wall thickening along the cecum and ascending colon which is nonspecific. Moderate stool. The rectum is distended up to 7.5 cm wide. Some presacral edema likely relates to john sarca changes. There appears to be a metal staple embedded within the solid stool within the rectum, refer to axial image 98 and coronal image 19. Shepard catheter collapses the bladder. Pelvic phleboliths. Questionable tract extending from the left posterior rectoanal junction, axial image 106 to the inner left gluteal fold, axial image 109. Referred to coronal images 96 through 98. Numerous pelvic phlebo liths. Nonspecific prominent 2.9 x 1.8 cm lower left periaortic lymph node on axial image 57 in the r eactive. Otherwise, no lymphadenopathy is clearly seen. Bones: Moderate multilevel spondylotic change. There is lucency and irregularity involving the superi or endplate of T12. No significant surrounding paravertebral soft tissue swelling. These may represen t a subacute endplate fracture. IMPRESSION: 1. Correlate for third spacing/fluid overload state given anasarca and mild abdominopelvic ascites. 2. Small bilateral pleural effusions and right greater than left bibasilar consolidation. Correlate to exclude infectious or aspiration pneumonitis. 3. A couple stones measuring up to 6 mm within the right renal collecting system. These will likely eventually pass into the right ureter and can result in obstructive uropathy. 4. Some asymmetric soft tissue thickening and edema along the right lower quadrant/right retroperito neum. This may reflect more confluent edema due to dependent positioning. We are not able to clearly identify the appendix which would be expected near this location. Query any history of prior appendec kwame. Short interval follow-up as clinically indicated. The administered oral contrast has only made its way to the proximal small bowel. 5. Mild/moderate circumferential wall thickening cecum and ascending colon could represent nonspecif ic infectious or inflammatory colitis. 6. Distention of the rectum up to 7.5 cm with solid stool. Correlate for developing fecal impaction. There is a metal staple embedded within the solid stool (axial image 98). Query swallowed foreign alban dy. 7. Questionable perianal fistula tract extending from the left posterior aspect of the rectoanal león ction to the inner left gluteal fold (axial image 106-109). Correlate with direct inspection.
--- NOTE | 2022-02-06 11:01 | P.PN ---
Subjective Progress Note Date: 02/06/22 Patient is a 61-year-old gentleman admitted to the hospital with atrial fibrillation with rapid ventricular rate in coagulopathy. Patient is seen today resting comfortably in bed he remains intubated. He continues on Coumadin for anticoagulation INR was therapeutic today at 2.1. Patient is sinus rhythm on telemetry and heart rate is well-controlled in the 70s. He continues on Levophed for blood pressure control. blood cultures are negative. At this time he does not require a TIFFANI. If further blood cultures become positive patient will need a TIFFANI to rule out vegetation. She was tolerating amiodarone will continue. Objective - Vital Signs Vital signs: Vital Signs Temp 98.9 F 02/06/22 04:00 Pulse 78 02/06/22 08:08 Resp 24 02/06/22 07:00 BP 86/52 02/05/22 13:00 Pulse Ox 94 L 02/06/22 07:00 FiO2 45 02/06/22 07:25 Intake & Output 02/05/22 02/06/22 02/06/22 18:59 06:59 18:59 Intake Total 6413.778 1446.916 100 Output Total 220 100 50 Balance 9890.380 8971.916 50 Weight 127.1 kg Intake: IV 1250 3300 100 Sodium Chloride 0.9% 1, 1050 1200 100 000 ml @ 100 mls/hr IV . Q10H [facility] Rx#:[id number] Sodium Chloride 0.9% 1, 2000 000 ml @ 999 mls/hr IV . Q1H1M [facility] Rx#:[id number] ceFAZolin 2 gm In Sodium 100 Chloride 0.9% 50 ml @ 100 mls/hr IVPB Q8HR [facility] Rx# :[id number] levETIRAcetam IV 500 mg 100 100 In Sodium Chloride 0.9% 100 ml @ 400 mls/hr IVPB Q12HR [facility] Rx#:[id number] Intake, IV Titration 317.390 468.916 Amount Diltiazem 125 mg In 0 Sodium Chloride 0.9% 100 ml @ 10 MG/HR 10 mls/hr IV .[id number] [facility] Rx#: [id number] Norepinephrine 4 mg In 190.598 68.916 Sodium Chloride 0.9% 250 ml @ 0.05 MCG/KG/MIN 25. 908 mls/hr IV .Q9H49M [facility] Rx#:[id number] propofoL 1,000 mg In 126.792 Empty Bag 1 bag @ 5 MCG/ KG/MIN 4.08 mls/hr IV . Q24H [facility] Rx#:[id number] propofoL 1,000 mg In 400 Empty Bag 1 bag @ 5 MCG/ KG/MIN 4.08 mls/hr IV . Q24H [facility] Rx#:[id number] Output: Urine 220 100 50 Other: Voiding Method Indwelling Catheter Indwelling Catheter ABP, PAP, CO, CI - Last Documented Arterial Blood Pressure 115/43 - Exam PHYSICAL EXAM: VITAL SIGNS: Reviewed. GENERAL: Well-developed in no acute distress. HEENT: Head is normocephalic. Pupils are equal, round. Sclerae anicteric. Mucous membranes of the mouth are moist. NECK: Supple. No JVD or thyromegaly RESPIRATORY: Respirations even and unlabored. Lungs diminished to auscultation bilaterally. CARDIO: irregular rate and rhythm. S1 and S2 heard. No gallops. Systolic murmur at the apex EXTREMITIES: Normal range of motion. No clubbing or cyanosis. Peripheral pulses intact. mild bilateral lower extremity edema NEURO: Orientated to person, time, mood is appropriate - Labs CBC & Chem 7: 02/06/22 03:55 02/06/22 03:55 Labs: Abnormal Lab Results - Last 24 Hours (Table) 02/05/22 02/05/22 02/06/22 Range/Units 05:29 23:53 03:55 WBC 16.4 H (3.8-10.6) k/uL RBC 3.75 L (4.30-5.90) m/uL Hgb 10.5 L (13.0-17.5) gm/dL Hct 34.7 L (39.0-53.0) % MCHC 30.2 L (31.0-37.0) g/dL RDW 16.2 H (11.5-15.5) % Neutrophils # (Manual) 17.00 H (1.3-7.7) k/uL Lymphocytes # (Manual) 0.76 L (1.0-4.8) k/uL Monocytes # (Manual) 1.34 H (0-1.0) k/uL Metamyelocytes # (Man) 0.19 H (0) k/uL PT (9.0-12.0) sec INR (<1.2) Hemoglobin (13.0-17.5) gm/dL Potassium (3.5-5.1) mmol/L Chloride (98-107) mmol/L Carbon Dioxide (22-30) mmol/L BUN (9-20) mg/dL Creatinine (0.66-1.25) mg/dL Glucose (74-99) mg/dL POC Glucose (mg/dL) 66 L (70-110) mg/dL Calcium (8.4-10.2) mg/dL 02/06/22 02/06/22 02/06/22 Range/Units 03:55 05:15 05:55 WBC (3.8-10.6) k/uL RBC (4.30-5.90) m/uL Hgb (13.0-17.5) gm/dL Hct (39.0-53.0) % MCHC (31.0-37.0) g/dL RDW (11.5-15.5) % Neutrophils # (Manual) (1.3-7.7) k/uL Lymphocytes # (Manual) (1.0-4.8) k/uL Monocytes # (Manual) (0-1.0) k/uL Metamyelocytes # (Man) (0) k/uL PT 21.3 H (9.0-12.0) sec INR 2.1 H (<1.2) Hemoglobin 11.2 L (13.0-17.5) gm/dL Potassium 3.0 L (3.5-5.1) mmol/L Chloride 113 H (98-107) mmol/L Carbon Dioxide 19 L (22-30) mmol/L BUN 43 H (9-20) mg/dL Creatinine 3.17 H (0.66-1.25) mg/dL Glucose 72 L (74-99) mg/dL POC Glucose (mg/dL) (70-110) mg/dL Calcium 7.2 L (8.4-10.2) mg/dL Microbiology - Last 24 Hours (Table) 02/04/22 09:39 Blood Culture - Preliminary Blood No Growth after 24 hours 02/04/22 09:39 Blood Culture - Preliminary Blood No Growth after 24 hours 02/01/22 08:55 Blood Culture Gram Stain - Final Blood Blood Culture - Final Staphylococcus aureus Assessment and Plan Assessment: Atrial fibrillation with poorly controlled ventricular rate Plan: Continue amiodarone 200 mg twice a day Continue Toprol 25 mg twice a day Continue with all other current cardiac medications Continue Coumadin for anticoagulation and monitor INR Further recommendations based on clinical course The above impression and plan of care have been discussed and directed by the signing physician. Roula Tracy, nurse practitioner, acting as scribe for signing physician.
[2022-02-06 11:41] LABS: Glucose,Whole Blood 59 mg/dL (70-110)
[2022-02-06] MEDS: PREGABALIN 100 MG CAP PO SCH ×2 (11:57→21:25)
[2022-02-06 12:02] LABS: Glucose,Whole Blood 140 mg/dL (70-110)
[2022-02-06] MEDS: PANTOPRAZOLE 40 MG/10 ML VIAL IVP SCH ×2 (12:02→21:27)
--- NOTE | 2022-02-06 12:33 | P.PN ---
Progress Note - Text Progress Note Date: 02/06/22 This is a 61-year-old patient who follows with Dr. Sridhar Chan. Chronic stable medical conditions include diabetes, hypertension, hyperlipidemia, chronic low back problems, cigarette smoker. At the baseline uses a walker. Patient slipped in the bathroom falling on his buttock. Was not able to get up. By the EMS report he had fallen 24 hours prior to the picking him up. Patient been complaining of pain in the right rib cage in the lower back. X-ray was negative for fracture. Patient continued to have significant pain especially with deep breathing. Patient also had a congestive cough and wheezing. Some bloody sputum. Denies any fever and chills. Patient also complaining of urina ry retention and requesting a Shepard catheter. at the bedside. No fever no chills. Orthopedics consulted for the same. Patient normally has a bowel movement once a week. Patient also has a wound on the right foot lateral part of the ankles for about a week. Ischemic changes. From rubbing against a bedpost. Patient's INR in the ER was greater than 10. Was given vitamin K. 10 mg Patient bit with Coumadin toxicity, given vitamin K, acute COPD exacerbation, uncontrolled atrial flutter put on Lopressor, right chest wall pain. Computed tomography scan lumbar spine and chest was ordered. Large wound on the right lateral malleolus-ID and vascular consulted.. IV cefepime. February 01: Patient yesterday to see refused his computed tomography scan of the chest and lumbar spine. Done today. Right-sided rib fractures, pulmonary contusion confirm. L1 vertebral body 30% wedge compression fracture. Patient's girlfriend the bedside. It was discussed in detail with her. Patient wanting again and again to pull out his NG tube. Requests the to stay with the patient. Patient is also had the dark aspirate from the stomach for which she has NG tube. Surgery was consulted for the same. Also this morning right foot wound was debrided by Dr. Ibarra from vascular. Wound base was relatively clean. No undermining or tunneling. February 02: Delirious. NG tube to suction. Has been in restraints because point NG TUBE several times. Mumbling to himself. Dressing over the right ankle. Not in distress. Ileus. Chest x-ray showing right lower lobe/atelectasis. February 03: Hospital computer system was down. Patient remains delirious. Nasal cannula. Lethargic. Family the bedside. Antibiotics. A. fib uncontrolled. EEG evidence of metabolic encephalopathy. No clear-cut epileptiform activity. Started on Keppra by neurology. February 04: ICU: Girlfriend at the bedside. In atrial fibrillation uncontrolled. On IV Cardizem and IV amiodarone. NG tube to suction. Patient lethargic. Multiple breathing. 2 L. Oxygen. February 05: ICU. Atrial fibrillation better controlled this morning. Cardizem discontinued. Patient respiratory status worsened this morning and patient is intubated. FiO2 45 and a PEEP of 5. Atrial fibrillation, controlled. Drips include amiodarone, propofol, levo fed. Discussed with girlfriend the bedside. Understands prognosis guarded. February 06: ICU: Ventilated. FiO2 45 and a PEEP of 5. NG tube is clamped. On IV propofol. Sedated. Heart rate better controlled. Was started on Coumadin yesterday. Worsening renal function. Nephrology consulted. Active Medications Acetaminophen (Acetaminophen Tab 325 Mg Tab) 650 mg PO Q6HR PRN PRN Reason: Mild Pain or Fever > 100.5 Albuterol/Ipratropium (Ipratropium-Albuterol 3 Ml Neb) 3 ml INHALATION RT-QID [facility] Last Admin: 02/06/22 11:36 Dose: 3 ml Amiodarone HCl (Amiodarone 200 Mg Tab) 200 mg PO BID [facility] Last Admin: 02/06/22 07:49 Dose: 200 mg Budesonide (Budesonide 1 Mg/2 Ml Nebu) 1 mg INHALATION RT-BID [facility] Last Admin: 02/06/22 07:57 Dose: 1 mg Calcium Carbonate/Glycine (Calcium Carbonate 500 Mg Chewable) 1,000 mg PO Q4HR PRN PRN Reason: Dyspepsia Last Admin: 01/31/22 14:29 Dose: 1,000 mg Chlorhexidine Gluconate (Chlorhexidine Gluconate 15 Ml Cup) 15 ml MUCOUS MEM BID [facility] Last Admin: 02/06/22 07:49 Dose: 15 ml Collagenase (Collagenase 250 Unit/Gm Ointment 30 Gm Tube) 1 applic TOPICAL DAILY [facility]; Protocol Last Admin: 02/06/22 07:49 Dose: 1 applic Dextrose/Water (Dextrose 50% Syringe 50 Ml) 25 ml IVP PER PROTOCOL PRN; Protocol PRN Reason: Hypoglycemia Last Admin: 02/06/22 11:58 Dose: 25 ml Dextrose/Water (Dextrose 50% Syringe 50 Ml) 50 ml IVP PER PROTOCOL PRN; Protocol PRN Reason: Hypoglycemia Guaifenesin (Guaifenesin 600 Mg Tablet.Er) 600 mg PO QID [facility] Last Admin: 02/06/22 07:44 Dose: Not Given Hydromorphone HCl (Hydromorphone 0.5 Mg/0.5 Ml Syringe) 0.5 mg IVP Q3HR PRN PRN Reason: Pain Last Admin: 02/03/22 03:43 Dose: 0.5 mg Sodium Chloride (Saline 0.9%) 1,000 mls @ 100 mls/hr IV .Q10H [facility] Last Admin: 02/06/22 03:20 Dose: 100 mls/hr Levetiracetam 500 mg/ Sodium (Chloride) 105 mls @ 400 mls/hr IVPB Q12HR [facility] Last Admin: 02/06/22 07:48 Dose: 400 mls/hr Cefazolin Sodium 2 gm/ Sodium (Chloride) 50 mls @ 100 mls/hr IVPB Q8HR [facility]; Protocol Last Admin: 02/06/22 07:49 Dose: 100 mls/hr Norepinephrine Bitartrate 4 mg (/ Sodium Chloride) 254 mls @ 25.908 mls/hr IV .Q9H49M [facility]; Protocol Last Titration: 02/06/22 11:59 Dose: 0 mcg/kg/min, 0 mls/hr Propofol 1,000 mg/ IV Solution 100 mls @ 4.08 mls/hr IV .Q24H [facility]; Protocol Last Admin: 02/06/22 09:01 Dose: 40 mcg/kg/min, 32.64 mls/hr Insulin Aspart (Insulin Aspart (Novolog) 100 Unit/Ml Vial) 0 unit SQ Q6HR [facility]; Protocol Last Admin: 02/06/22 12:02 Dose: Not Given Insulin Detemir (Insulin Detemir (Levemir) 100 Unit/Ml Syr) 14 unit SQ HS [facility] Last Admin: 02/05/22 20:21 Dose: 14 unit Lactulose (Lactulose 20 Gm/30 Ml Cup) 20 gm PO DAILY PRN PRN Reason: Constipation Last Admin: 02/02/22 08:41 Dose: 20 gm Melatonin (Melatonin 3 Mg Tablet) 3 mg PO HS PRN PRN Reason: Insomnia Metoprolol Tartrate (Metoprolol Tartrate 25 Mg Tab) 25 mg PO BID [facility] Last Admin: 02/06/22 07:49 Dose: 25 mg Miscellaneous Information (Potassium Replacement Protocol 1 Each Misc) 1 each MISCELLANE DAILY PRN; Protocol PRN Reason: Per Protocol Miscellaneous Information (Warfarin Per Pharmacy) 1 each MISCELLANE DIRECTED PRN PRN Reason: Per Protocol Miscellaneous Information (Magnesium Replacement Protocol 1 Each Misc) 1 each MISCELLANE DAILY PRN; Protocol PRN Reason: Per Protocol Morphine Sulfate (Morphine Sulfate Er 15 Mg Tablet) 15 mg PO Q12HR [facility]; Protocol Last Admin: 02/06/22 07:49 Dose: Not Given Naloxone HCl (Naloxone 0.4 Mg/Ml 1 Ml Vial) 0.2 mg IV Q2M PRN PRN Reason: Opioid Reversal Nicotine (Nicotine 21mg/24hr Patch) 1 patch TRANSDERM DAILY [facility] Last Admin: 02/06/22 07:49 Dose: 1 patch Ondansetron HCl (Ondansetron 4 Mg/2 Ml Vial) 4 mg IVP Q8HR PRN PRN Reason: Nausea And Vomiting Last Admin: 02/02/22 08:41 Dose: 4 mg Pantoprazole Sodium (Pantoprazole 40 Mg/10 Ml Vial) 40 mg IVP BID [facility] Last Admin: 02/06/22 12:02 Dose: Not Given Pregabalin (Pregabalin 100 Mg Cap) 100 mg PO BID [facility] Last Admin: 02/06/22 11:57 Dose: Not Given Tamsulosin HCl (Tamsulosin 0.4 Mg Cap.Er.24h) 0.4 mg PO PC-BRKFST [facility] Last Admin: 02/06/22 07:44 Dose: Not Given Warfarin Sodium (Warfarin 1.5 Mg Tab) 1.5 mg PO ONCE@1800 ONE Stop: 02/06/22 18:01 Past medical history to include: COPD, diabetes, hypertension, hyperlipidemia, back problems, TB, atrial fibrillation, on Coumadin Social history: Smokes a pack a day for close to 50 years. Stop doing alcohol some time ago. Lives with his significant other Sandra. Does use a walker. 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 Conjunctiva normal. HEENT: External appearance of nose and ears normal, oral cavity dry, NG tube, endotracheal tube NECK: JVD not raised; masses not palpable. HEART: Heart sounds irregular; mild edema. LUNGS: Respiratory rate increased; decreased breath sound, ABDOMEN: Soft, distended, nontender, liver spleen not palpable, no masses palpable. PSYCH: Unable to assess, patient sedated DERMATOLOGICAL: Wound on right ankle lateral malleolus. Under dressing INVESTIGATIONS, reviewed in the clinical context: Computed tomography scan abdomen and pelvis [February 06] 6 mm stone in the right renal collecting system. Some circumferential wall thickening of the cecum and ascending colon. Distention of the rectum 7.5 cm with solid stool. February 06: WBC 4, 16.4 hemoglobin 10.5, platelets 160, potassium 3, BUN 43, creatinine 3.17 February 05: WBC 19.1 hemoglobin 11.5 platelets 179 potassium 3.7 BUN 37, creatinine 2.38. ABG: PH 7.24, pCO2 60, pO2 111 February 04: Obesity, 16.2, hemoglobin 12.4 potassium 4.3, BUN 36, creatinine 1.84 EEG: Evidence of encephalopathy. No obvious epileptiform activity. 2-D echocardiogram: EF 60-65%. February 03: WBC 18.5, hemoglobin 12.5 potassium 3.2, BUN 35, creatinine 1.77 February 02: CBC 7.5 hemoglobin 13.3 platelets 166 potassium 3 view and 29 creatinine 1.6 to Renal ultrasound: Shows bilateral normal cortical medullary thickness. February 01: WBC 17.1 hemoglobin 14.8 UA: Blood large, leukoesterase moderate WBC 28 nitrite negative Lumbar spine CT: Anterior wedge compression deformity of L1. Multiple level DJD. 7 mm calculus right renal pelvis. CT chest without contrast: Right lateral eighth through 10th rib fractures with associated gas trace hemothorax right lower lobe pulmonary contusion/atelectasis. Patchy) disease left upper lobe. WBC 25.8 hemoglobin 14.1 platelets 217 INR greater than 10 sodium 131 potassium 3.9. 24 creatinine 1.8 to EKG tracing personally reviewed by me-atrial fluttalyson. Rate 132 Foot/Lumbar/sacral coccyx: Spondylitic changes. No fracture. Chest x-ray film personally reviewed by me-clinically. Possible hyperinflation Assessment and plan: -Coumadin toxicity. INR greater than 10. On presentation: 10 mg vitamin K in the ER. Hemoptysis on presentation. Coumadin resumed on February 05.. - right lung contusion.-Secondary to fall/hip fracture. hemoptysis on presentation -Sepsis with positive blood cultures MSSA. From January 31. IV Ancef -Acute hypoxic respiratory failure, multifactorial: ventilator support,: Slow to respond Patient intubated on February 05 -Acute COPD exacerbation, with chronic bronchitis component in a current smoker: Slow to respond DuoNeb. Nebulized Pulmicort. Mucinex. -Chronic nicotine dependence, cigarette smoker Nicotine patch -Persistent atrial flutter,: Remains controlled Lopressor 50 mg 3 times a day. 2-D echocardiogram unremarkable. Oral amiodarone Coumadin started on February 05 -Possible CK D with possible acute component. creatinine was 0.8 in April 2019. Renal ultrasound unremarkable. UA shows trace protein. IV fluids.. -Acute kidney injury, ATN, likely cardiorenal syndrome.: Worsening Follow with nephrology. -Acute right-sided 8-10 ribs fracture secondary to fall K pad -Diabetes mellitus type 2, chronically on oral hypoglycemic Hold Glucotrol. Sliding scale insulin. Levemir 14 units daily at bedtime -Diabetic peripheral neuropathy Decreased dose of Lyrica in the setting of renal failure. 100 mg twice a day -Chronic low back pain: MS Contin 15 mg every 12, Harper 7.5 twice a day when necessary -Anxiety depression not otherwise specified Wellbutrin XL 100 mg twice a day -Hyperlipidemia Lipitor 40 mg daily at bedtime -Right ankle lateral, diabetic wound, stage II acute. Wound culture positive for Streptococcus agalactiae and Staphylococcus aureus. IV Ancef ID consulted. Patient has poor distal pulses. February 01 wound was debrided by Dr. Ibarra. Clean base. -Acute L1 30% wedge fracture secondary to fall LSO brace. Be followed by Dr. Damon -Acute delirium multifactorial. Slow to respond -Acute ileus, NG tube for decompression.; clamped. Being followed by surgery. -Possible colitis on computed tomography scan. We'll discuss with ID if he needs to increase coverage. IV Ancef. By mouth amiodarone. Lopressor. NG tube clamped. IV propofol. Questionable colitis on computed tomography scan. Decide with ID to broaden coverage or not.
--- NOTE | 2022-02-06 12:46 | P.PN ---
Subjective Progress Note Date: 02/06/22 Principal diagnosis: Multiple right-sided rib fractures and a right sided pulmonary contusion with compression fractures of lumbar spine This is a extremely debilitated 61-year-old male patient who is known to monitor milligrams and comorbidities and I was asked to evaluate this patient because of a fall and limited hemoptysis. The patient is known to have a combination of i ssues including diabetes mellitus and diabetic peripheral neuropathy and the patient has had previous episodes of falls and he has issues with chronic atrial flutter maintained on long-term anticoagulation with warfarin. He is morbidly obese. He has hypertension and hyperlipidemia as comorbid conditions along with chronic kidney disease. He is morbidly obese. He has history of COPD and is a chronic smoker. He comes in to the hospital after he had a fall at home. He was the bathroom and he slept and he landed on his left chest. Here in the hospital, the patient was found to be Coumadin toxic and his INR was above 10. He did have some limited hemoptysis and coffee-ground emesis without any melanotic stools. No abdominal pain. He was noted to have a large ulcer over the right ankle/malleolus area which is a chronic wound. Immediately the patient was given vitamin K. This computed tomography scan of the chest shows some right lateral eighth through 10th rib fractures with trace amount of right- sided pleural effusion and right basilar atelectasis related to underlying pulmonary contusion. No evidence of any pneumothorax. Some limited patchy airspace disease in the left upper lobe probably inflammatory in the same time the patient had dilated pulmonary arteries indicating possibility of pulmonary hypertension and a fluid and gas-filled distended stomach. I noted the patient has not had a CAT scan of the brain and a CAT scan was done that showed no acute intracranial process. There was a remote left occipital lobe injury along with some nonspecific white matter changes secondary to chronic microangiopathy. This computed tomography scan of the lumbar spine showed acute anterior wedge compression deformity of L1 vertebral body with a 30% loss in height along with multilevel degenerative disc changes and a 7 mm In the right pelvis. Patient was already seen by general surgery and orthopedic surgery. Lumbar spine x-ray that was done on 2021 showed no acute fracture. The patient was also seen by vascular surgery for a right lateral foot wound and this is a stage II wound 8.5 x 4 cm in size. Debridement was done by vascular surgery. On 02/02/2022, the patient is confused which is unchanged compared to yesterday. CAT scan of the brain was done yesterday showed no acute abnormalities. He did not have any further episodes of hemoptysis. His coagulopathy was reversed. I noted some coffee-ground emesis yesterday and subsequently developed some ab dominal distention and ileus was suspected. NG tube was inserted. On multiple occasions, he pulled out his NG tube. This morning, NG tube is in place and the total amount of output is in order of 25 mL since morning and he does have some old retained coffee-ground material in the canister since yesterday in the order of 200 mL. Abdomen is soft. He is laying comfortably in bed. He is off anti coagulation for now. He is an IV fluids and currently receiving 0.9 at a rate of 100 mL an hour. He is also on a Cardizem drip for atrial flutter with RVR. His heart rates currently is in order of 130 beats per minute. He is still tachycardic. The Cardizem rate accordingly was increased and is being adjusted and titrated by cardiology.The white cell count is at 17.7 hemoglobin 15.3 and a platelet count of 166, the patient also has a sodium level of 136, potassium is being replaced is currently down to 3 and a BUN is at 29 with a creatinine of 1.62. Serum bicarbs at 23. Correlation profile is normalized. The patient only on Lovenox for DVT prophylaxis. Reevaluated today on 02/03/22, patient remains in the ICU, presently on 2 L nasal cannula, patient remains unresponsive to any stimuli including deep painful stimuli. Patient remains obtunded, he has a Glascow coma score of 3, speech and language could not be assessed. Patient is having multifocal myoclonic twitching. Mostly the facial region. Seen by neurology this morning, felt to have acute metabolic encephalopathy, EEG did not reveal any evidence of epileptiform activity. EEG was suggestive of metabolic encephalopathy patient was kept on Keppra for now. Suggesting MRI of the brain to rule out CVA. And recommending that the patient goes back on anticoagulation for atrial fibrillation when medically cleared. Pulmonary-[place], the patient is basically the same, he does have fractures but does not seem to be compromising his oxygenation. Patient is on 2 L nasal cannula, and O2 saturation is in the 90s. He is on Cardizem at 15 mg per hour for his atrial fibrillation. 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 Blood cultures have been positive for presumptive staph aureus. These have been positive since admission. Cultures from right ankle 1 showed Staphylococcus aureus and strep agalactiae group B, patient is being followed by infectious disease on the case Reevaluated today on 02/04/22, patient remains in the ICU, he is on 2 L nasal cannula. Patient remains obtunded. Continues to have positive blood cultures, staph aureus and staph epidermidis. Remains on antibiotics as per infectious disease on the case. Continues to have a Glascow coma score of 3. Patient continues to have multiple myoclonic twitching in the face. He is not waking up even with deep painful stimuli. Patient remains very encephalopathic. Not much of a change in the last 24 hours. Repeat blood cultures today are pending but he had positive blood cultures from 01/31 and from 02/01. Patient may have to be considered for possible TIFFANI if his blood cultures remain positive. His right foot wound culture is also positive for staph aureus and for Streptococcus group B. Patient is being followed by many consultants including cardiology and infectious disease and neurology. His neurological status seems to be quite concerning. WBC count today is 16.2 hemoglobin is 12.4 7 normal BUN is 36 creatinine 1.84 Reevaluated today on 02/05/22, patient's clinical status. Deteriorated last night, patient required intubation and mechanical ventilation. Patient had ABG earlier this morning, and his pO2 was 137 pCO2 85 pH of 7.12 and patient was noted to remain obtunded. I was notified about the ABG, I recommended immediate intubation of the patient and follow-up ABG on 50% showed a pO2 of 111 pCO2 of 60 and pH of 7.24. Today he was noted to be on assist control rate of 2010 volume 500 FiO2 50% and PEEP of 5 hence after reviewing the ABG I changed his rate up to 24 kept him on 500 tidal volume cut down the FiO2 to 45% and The PEEP at 5. Repeat ABG is pending. Patient is requiring amiodarone for his atrial fibrillation with RVR he is on 0.5 mg/m patient is also on propofol at 10 mcg/kg/m he was on cefazolin for his MSSA infection and possible blood cultures. He is also on 0.9 normal saline at 100 mL per hour. WBC count is 19.1 hemoglobin is 11.5 INR is 1.8. Basic metabolic profile is normal however his BU N is 37 and creatinine 2.38. Chest x-ray today at 11:40 showed right lower lobe atelectasis, strongly doubt pneumonia. Patient was reevaluated today on 02/16/22, remains in the ICU, intubated and mec hanically ventilated. Patient is sedated, his ventilator settings are assist control rate of 24 tidal volume 500 FiO2 45% and PEEP of 5. ABG showed a pO2 of 85 pCO2 37 pH of 7.37 patient had worsening urine output and worsening renal status overnight, received almost 4 L of fluids, continue to have low urine output and this morning he received 80 mg of Lasix IV push. CVP continues to read the low below 7. His endotracheal tube was noted to be sitting high in the trachea and it will be advanced about 3 cm. Patient remains on propofol at 40 mcg/kg/m IV fluids/normal saline at 100 mL per hour norepinephrine at 0.02 mcg/kg/m today I recommended a nephrology consultation and the patient will be undergoing CT of the abdomen for ileus. The CT of the abdomen showed mild to moderate circumferential wall thickening of the cecum and ascending colon possible nonspecific infectious or inflammatory colitis. There was also distention of the rectum up to 7.5 cm with solid stool. Patient is developing fecal impaction. There is also the possibility of perianal fistula noted on the CT of the abdomen and pelvis. Blood cultures from 97 and 98 are negative so far. Previous blood cultures from 01/31 hence 02/01 were positive for staph aureus Objective - Vital Signs Vital signs: Vital Signs Temp 98.9 F 02/06/22 04:00 Pulse 73 02/06/22 11:48 Resp 24 02/06/22 07:00 BP 86/52 02/05/22 13:00 Pulse Ox 94 L 02/06/22 07:00 FiO2 45 02/06/22 11:22 Intake & Output 02/05/22 02/06/22 02/06/22 18:59 06:59 18:59 Intake Total 7049.459 5394.916 327.925 Output Total 220 100 50 Balance 1665.646 6580.916 277.925 Weight 127.1 kg Intake: IV 1250 3300 100 Sodium Chloride 0.9% 1, 1050 1200 100 000 ml @ 100 mls/hr IV . Q10H [facility] Rx#:[id number] Sodium Chloride 0.9% 1, 2000 000 ml @ 999 mls/hr IV . Q1H1M [facility] Rx#:[id number] ceFAZolin 2 gm In Sodium 100 Chloride 0.9% 50 ml @ 100 mls/hr IVPB Q8HR [facility] Rx# :[id number] levETIRAcetam IV 500 mg 100 100 In Sodium Chloride 0.9% 100 ml @ 400 mls/hr IVPB Q12HR [facility] Rx#:[id number] Intake, IV Titration 317.390 468.916 227.925 Amount Diltiazem 125 mg In 0 Sodium Chloride 0.9% 100 ml @ 10 MG/HR 10 mls/hr IV .[id number] [facility] Rx#: [id number] Norepinephrine 4 mg In 190.598 68.916 141.973 Sodium Chloride 0.9% 250 ml @ 0.05 MCG/KG/MIN 25. 908 mls/hr IV .Q9H49M [facility] Rx#:[id number] propofoL 1,000 mg In 126.792 Empty Bag 1 bag @ 5 MCG/ KG/MIN 4.08 mls/hr IV . Q24H [facility] Rx#:[id number] propofoL 1,000 mg In 400 85.952 Empty Bag 1 bag @ 5 MCG/ KG/MIN 4.08 mls/hr IV . Q24H [facility] Rx#:[id number] Output: Urine 220 100 50 Other: Voiding Method Indwelling Catheter Indwelling Catheter ABP, PAP, CO, CI - Last Documented Arterial Blood Pressure 115/43 - Exam GENERAL: Revealed a 61-year-old white male, intubated, mechanically ventilated, sedated. On propofol. And on a low-dose norepinephrine. 0.02 mcg/kg/m Head atraumatic, normocephalic. EYES: Pupils equal. Conjunctiva normal. HEENT: External appearance of nose and ears normal, oral cavity grossly normal. NECK: JVD not raised; masses not palpable. HEART: Normal S1 and S2, no S3 gallop, irregular rhythm. LUNGS: Diminished breath sounds and crackles at the bases. ABDOMEN: Soft, distended, no megaly no rebound no guarding PSYCH: Cannot be assessed, sedated with propofol. Patient was obtunded to begin with before intubation. DERMATOLOGICAL: Large wound around the lateral malleolus right foot Gangrene Changes, wrapped with sterile dressing. MUSCULOSKELETAL:No Clubbing/cyanosis;muscles-grossly intact, NEUROLOGICAL: Unable to assess. Patient is sedated. And he was obtunded baseline before intubation - Labs CBC & Chem 7: 02/06/22 03:55 02/06/22 03:55 Labs: Abnormal Lab Results - Last 24 Hours (Table) 02/05/22 02/06/22 02/06/22 Range/Units 23:53 03:55 03:55 WBC 16.4 H (3.8-10.6) k/uL RBC 3.75 L (4.30-5.90) m/uL Hgb 10.5 L (13.0-17.5) gm/dL Hct 34.7 L (39.0-53.0) % MCHC 30.2 L (31.0-37.0) g/dL RDW 16.2 H (11.5-15.5) % PT (9.0-12.0) sec INR (<1.2) Hemoglobin (13.0-17.5) gm/dL Potassium 3.0 L (3.5-5.1) mmol/L Chloride 113 H (98-107) mmol/L Carbon Dioxide 19 L (22-30) mmol/L BUN 43 H (9-20) mg/dL Creatinine 3.17 H (0.66-1.25) mg/dL Glucose 72 L (74-99) mg/dL POC Glucose (mg/dL) 66 L (70-110) mg/dL Calcium 7.2 L (8.4-10.2) mg/dL 02/06/22 02/06/22 02/06/22 Range/Units 05:15 05:55 11:40 WBC (3.8-10.6) k/uL RBC (4.30-5.90) m/uL Hgb (13.0-17.5) gm/dL Hct (39.0-53.0) % MCHC (31.0-37.0) g/dL RDW (11.5-15.5) % PT 21.3 H (9.0-12.0) sec INR 2.1 H (<1.2) Hemoglobin 11.2 L (13.0-17.5) gm/dL Potassium (3.5-5.1) mmol/L Chloride (98-107) mmol/L Carbon Dioxide (22-30) mmol/L BUN (9-20) mg/dL Creatinine (0.66-1.25) mg/dL Glucose (74-99) mg/dL POC Glucose (mg/dL) 59 L (70-110) mg/dL Calcium (8.4-10.2) mg/dL 02/06/22 Range/Units 12:01 WBC (3.8-10.6) k/uL RBC (4.30-5.90) m/uL Hgb (13.0-17.5) gm/dL Hct (39.0-53.0) % MCHC (31.0-37.0) g/dL RDW (11.5-15.5) % PT (9.0-12.0) sec INR (<1.2) Hemoglobin (13.0-17.5) gm/dL Potassium (3.5-5.1) mmol/L Chloride (98-107) mmol/L Carbon Dioxide (22-30) mmol/L BUN (9-20) mg/dL Creatinine (0.66-1.25) mg/dL Glucose (74-99) mg/dL POC Glucose (mg/dL) 140 H (70-110) mg/dL Calcium (8.4-10.2) mg/dL Microbiology - Last 24 Hours (Table) 02/04/22 09:39 Blood Culture - Preliminary Blood No Growth after 48 hours 02/04/22 09:39 Blood Culture - Preliminary Blood No Growth after 48 hours 02/05/22 23:55 Sputum Culture - Preliminary Sputum 02/01/22 08:55 Blood Culture Gram Stain - Final Blood Blood Culture - Final Staphylococcus aureus Assessment and Plan Assessment: Impression: Acute hypercapnic respiratory failure Acute metabolic encephalopathy Right sided rib fractures, traumatic, secondary to fall, Right sided pulmonary contusion. Anterior wedge compression fracture of L1 Hemoptysis secondary to contusion and exacerbated by Coumadin coagulopathy Underlying COPD and chronic smoking Coumadin toxicity with INR above 10 on admission, recovered History of frequent falls. Metabolic encephalopathy, acute, being addressed by neurology on the case. Chronic atrial fibrillation. Acute on Chronic kidney disease stage III. Stage II right ankle wound requiring debridement and positive for staph aureus and strep agalactiae Positive bacteremia, however his blood cultures have been negative from 02/04 and 02/05. Diabetic peripheral neuropathy History of Nephrolithiasis Nonspecific colitis Perianal fistula Recommendation: Continue ventilatory support Continue antibiotics for his ongoing bacteremia, MSSA bacteremia Nephrology consultation Continue hemodynamic support/norepinephrine Continue antibiotics for his gram-positive bacteremia cultures on the last 2 days have been negative Nutritional support/enteral feeding Continue GI and DVT prophylaxis Continue Keppra Continue amiodarone. Continue anticoagulation therapy Prognosis remains poor and guarded Critical care time is over 30 minutes We will continue to follow. Time with Patient: Greater than 30
--- NOTE | 2022-02-06 12:50 | P.PN ---
Subjective Progress Note Date: 02/06/22 CHIEF COMPLAINT: Upper GI bleeding HISTORY OF PRESENT ILLNESS: Patient is intubated and mechanical ventilation on in the ICU. Patient evaluated by nephrology for acute kidney injury. Patient has bacteremia and was seen by cardiology. Blood culture negative. And patient does not require a TIFFANI. NG tube output has remained bile. No further evidence of bleeding. He's had 170 mL output throughout the night. No bowel movement reported. Afebrile. WBC 19.1 down to 16.4 Hgb 10.5 platelets 160 INR 2.1 sodium 142 potassium 3.0 creatinine 3.17 patient did receive a dose of IV Lasix today. Computed tomography scan abdomen and pelvis with oral contrast correlate for third spacing/fluid overload given anasarca and mid abdominal pelvic ascites. Small bilateral pleural effusions right greater than left consolidation. Correlate to exclude infectious or aspiration pneumonitis. Renal stones measuring up to 6 mm within the right renal collecting system. Asymmetric soft tissue thickening and edema along the right lower quadrant and right peritoneum. This may reflect more compliant edema due to dependent positioning. We are not able to clearly identify the appendix which would be expected in this location. The administered oral contrast has only mediates way to the proximal small bowel. Mild to moderate circumferential wall thickening cecum and ascending colon which could represent nonspecific infectious or inflammatory colitis. Distention of the rectum up to 7.5 cm with solid stool. Correlate for developing fecal impaction. There is a metal staple embedded within the solid stool. Query swallowed foreign body. Question of perianal fistula tract extending from the left posterior aspect of the rectoanal junction to the inner left gluteal fold. Correlate with direct inspection. PHYSICAL EXAM: VITAL SIGNS: Reviewed. ABDOMEN: Soft. Distended NEUROLOGIC: Intubated and sedated ASSESSMENT: 1. Upper GI bleed resolved 2. Ileus 3. Fecal impaction 4. Altered mental status 5. Leukocytosis 6. Hypokalemia patient receiving supplement PLAN: -I will review computed tomography scan findings with Dr. Villegas. Further recommendations forthcoming per surgeon. -Continue ICU management -Continue supportive care -Continue to monitor -Continue NG tube for decompression -Keep patient nothing by mouth except for medications Physician Demurrage Man note has been reviewed by physician. Signing provider agrees with the documented findings, assessment, and plan of care. I have personally seen and examined the patient, reviewed the [employer] /PAs history, exam and MDM and agree with the assessment and plan as written. Based on total visit time, I have performed more than 50% of the visit. As above: Patient stable on the ventilator. No pressors at this time. CAT scan reviewed. No obvious intra-abdominal pathology to explain the patient's illness. Mild edema of the retroperitoneum bilaterally right greater than left. I do not believe that is contributing to the patient's current problem. At the distal rectum there is a very subtle hypodensity that could represent a small anal fistula. On exam there is a small dimple in the posterior midline that could represent a fistulous opening. This is not indurated and there is no erythema. Do not suspect this is clinically significant at this time. During the rectal exam however the patient did have significant fecal impaction which was evacuated manually. Begin tube feeds. Begin lactulose twice daily. We'll follow. Objective - Vital Signs Vital signs: Vital Signs Temp 98.9 F 02/06/22 04:00 Pulse 73 02/06/22 11:48 Resp 24 02/06/22 07:00 BP 86/52 02/05/22 13:00 Pulse Ox 94 L 02/06/22 07:00 FiO2 45 02/06/22 11:22 Intake & Output 02/05/22 02/06/22 02/06/22 18:59 06:59 18:59 Intake Total 5943.778 9982.916 327.925 Output Total 220 100 50 Balance 8073.690 2741.916 277.925 Weight 127.1 kg Intake: IV 1250 3300 100 Sodium Chloride 0.9% 1, 1050 1200 100 000 ml @ 100 mls/hr IV . Q10H [facility] Rx#:[id number] Sodium Chloride 0.9% 1, 2000 000 ml @ 999 mls/hr IV . Q1H1M [facility] Rx#:[id number] ceFAZolin 2 gm In Sodium 100 Chloride 0.9% 50 ml @ 100 mls/hr IVPB Q8HR [facility] Rx# :[id number] levETIRAcetam IV 500 mg 100 100 In Sodium Chloride 0.9% 100 ml @ 400 mls/hr IVPB Q12HR [facility] Rx#:[id number] Intake, IV Titration 317.390 468.916 227.925 Amount Diltiazem 125 mg In 0 Sodium Chloride 0.9% 100 ml @ 10 MG/HR 10 mls/hr IV .[id number] [facility] Rx#: [id number] Norepinephrine 4 mg In 190.598 68.916 141.973 Sodium Chloride 0.9% 250 ml @ 0.05 MCG/KG/MIN 25. 908 mls/hr IV .Q9H49M [facility] Rx#:[id number] propofoL 1,000 mg In 126.792 Empty Bag 1 bag @ 5 MCG/ KG/MIN 4.08 mls/hr IV . Q24H [facility] Rx#:[id number] propofoL 1,000 mg In 400 85.952 Empty Bag 1 bag @ 5 MCG/ KG/MIN 4.08 mls/hr IV . Q24H [facility] Rx#:[id number] Output: Urine 220 100 50 Other: Voiding Method Indwelling Catheter Indwelling Catheter ABP, PAP, CO, CI - Last Documented Arterial Blood Pressure 115/43 - Labs CBC & Chem 7: 02/06/22 03:55 02/06/22 03:55 Labs: Abnormal Lab Results - Last 24 Hours (Table) 02/05/22 02/06/22 02/06/22 Range/Units 23:53 03:55 03:55 WBC 16.4 H (3.8-10.6) k/uL RBC 3.75 L (4.30-5.90) m/uL Hgb 10.5 L (13.0-17.5) gm/dL Hct 34.7 L (39.0-53.0) % MCHC 30.2 L (31.0-37.0) g/dL RDW 16.2 H (11.5-15.5) % PT (9.0-12.0) sec INR (<1.2) Hemoglobin (13.0-17.5) gm/dL Potassium 3.0 L (3.5-5.1) mmol/L Chloride 113 H (98-107) mmol/L Carbon Dioxide 19 L (22-30) mmol/L BUN 43 H (9-20) mg/dL Creatinine 3.17 H (0.66-1.25) mg/dL Glucose 72 L (74-99) mg/dL POC Glucose (mg/dL) 66 L (70-110) mg/dL Calcium 7.2 L (8.4-10.2) mg/dL 02/06/22 02/06/22 02/06/22 Range/Units 05:15 05:55 11:40 WBC (3.8-10.6) k/uL RBC (4.30-5.90) m/uL Hgb (13.0-17.5) gm/dL Hct (39.0-53.0) % MCHC (31.0-37.0) g/dL RDW (11.5-15.5) % PT 21.3 H (9.0-12.0) sec INR 2.1 H (<1.2) Hemoglobin 11.2 L (13.0-17.5) gm/dL Potassium (3.5-5.1) mmol/L Chloride (98-107) mmol/L Carbon Dioxide (22-30) mmol/L BUN (9-20) mg/dL Creatinine (0.66-1.25) mg/dL Glucose (74-99) mg/dL POC Glucose (mg/dL) 59 L (70-110) mg/dL Calcium (8.4-10.2) mg/dL 02/06/22 Range/Units 12:01 WBC (3.8-10.6) k/uL RBC (4.30-5.90) m/uL Hgb (13.0-17.5) gm/dL Hct (39.0-53.0) % MCHC (31.0-37.0) g/dL RDW (11.5-15.5) % PT (9.0-12.0) sec INR (<1.2) Hemoglobin (13.0-17.5) gm/dL Potassium (3.5-5.1) mmol/L Chloride (98-107) mmol/L Carbon Dioxide (22-30) mmol/L BUN (9-20) mg/dL Creatinine (0.66-1.25) mg/dL Glucose (74-99) mg/dL POC Glucose (mg/dL) 140 H (70-110) mg/dL Calcium (8.4-10.2) mg/dL Microbiology - Last 24 Hours (Table) 02/04/22 09:39 Blood Culture - Preliminary Blood No Growth after 48 hours 02/04/22 09:39 Blood Culture - Preliminary Blood No Growth after 48 hours 02/05/22 23:55 Sputum Culture - Preliminary Sputum 02/01/22 08:55 Blood Culture Gram Stain - Final Blood Blood Culture - Final Staphylococcus aureus
[2022-02-06] MEDS ORDERED: CEFEPIME 2 GM in SODIUM CHLORIDE 0.9% 100 ML IVPB SCH (13:00)
[2022-02-06] MEDS: LACTULOSE 20 GM/30 ML CUP PO PRN (15:26)
[2022-02-06] MEDS: metroNIDAZOLE-NS PMX 500 MG in SALINE 1 100ML.BAG IVPB SCH (15:27)
--- NOTE | 2022-02-06 15:43 | P.PN ---
Subjective Progress Note Date: 02/06/22 Principal diagnosis: Right foot infected pressure ulcer and bacteremia Patient is a 61-year-old male presented to the hospital for evaluation of fall patient also noticed to have a wound on the right lateral foot with some necrotic edges which has been debridement by vascular surgery on 01/31/2022.Patient has been transthoracic because of significant mental status changes, The patient ended up getting intubated last night On today's evaluation that is 02/06/2022, The patient is afebrile this morning , the patient remains to be on the vent , FiO2 stable at 45% no significant purulent secretion through the ET , diarrhea or any other changes reported by the nursing staff , rather the patient is constipated Objective - Vital Signs Vital signs: Vital Signs Temp 98.9 F 02/06/22 04:00 Pulse 73 02/06/22 11:48 Resp 24 02/06/22 07:00 BP 86/52 02/05/22 13:00 Pulse Ox 94 L 02/06/22 07:00 FiO2 45 02/06/22 11:22 Intake & Output 02/05/22 02/06/22 02/06/22 18:59 06:59 18:59 Intake Total 6505.755 1568.916 327.925 Output Total 220 100 50 Balance 6280.942 3558.916 277.925 Weight 127.1 kg Intake: IV 1250 3300 100 Sodium Chloride 0.9% 1, 1050 1200 100 000 ml @ 100 mls/hr IV . Q10H [facility] Rx#:[id number] Sodium Chloride 0.9% 1, 2000 000 ml @ 999 mls/hr IV . Q1H1M [facility] Rx#:[id number] ceFAZolin 2 gm In Sodium 100 Chloride 0.9% 50 ml @ 100 mls/hr IVPB Q8HR [facility] Rx# :[id number] levETIRAcetam IV 500 mg 100 100 In Sodium Chloride 0.9% 100 ml @ 400 mls/hr IVPB Q12HR [facility] Rx#:[id number] Intake, IV Titration 317.390 468.916 227.925 Amount Diltiazem 125 mg In 0 Sodium Chloride 0.9% 100 ml @ 10 MG/HR 10 mls/hr IV .[id number] [facility] Rx#: [id number] Norepinephrine 4 mg In 190.598 68.916 141.973 Sodium Chloride 0.9% 250 ml @ 0.05 MCG/KG/MIN 25. 908 mls/hr IV .Q9H49M [facility] Rx#:[id number] propofoL 1,000 mg In 126.792 Empty Bag 1 bag @ 5 MCG/ KG/MIN 4.08 mls/hr IV . Q24H [facility] Rx#:[id number] propofoL 1,000 mg In 400 85.952 Empty Bag 1 bag @ 5 MCG/ KG/MIN 4.08 mls/hr IV . Q24H [facility] Rx#:[id number] Output: Urine 220 100 50 Other: Voiding Method Indwelling Catheter Indwelling Catheter ABP, PAP, CO, CI - Last Documented Arterial Blood Pressure 115/43 - Exam GENERAL DESCRIPTION: Middle-aged male intubated on the vent. LUNGS: Unlabored breathing. Decreased breath sound at the base HEART: S1, S2, regular rate and rhythm. No loud murmur ABDOMEN: Soft, no tenderness , guarding or rigidity, no organomegaly EXTREMITIES: Right foot wound is currently dressed no drainage on the dressing - Labs CBC & Chem 7: 02/06/22 03:55 02/06/22 03:55 Labs: Abnormal Lab Results - Last 24 Hours (Table) 02/05/22 02/06/22 02/06/22 Range/Units 23:53 03:55 03:55 WBC 16.4 H (3.8-10.6) k/uL RBC 3.75 L (4.30-5.90) m/uL Hgb 10.5 L (13.0-17.5) gm/dL Hct 34.7 L (39.0-53.0) % MCHC 30.2 L (31.0-37.0) g/dL RDW 16.2 H (11.5-15.5) % PT (9.0-12.0) sec INR (<1.2) Hemoglobin (13.0-17.5) gm/dL Potassium 3.0 L (3.5-5.1) mmol/L Chloride 113 H (98-107) mmol/L Carbon Dioxide 19 L (22-30) mmol/L BUN 43 H (9-20) mg/dL Creatinine 3.17 H (0.66-1.25) mg/dL Glucose 72 L (74-99) mg/dL POC Glucose (mg/dL) 66 L (70-110) mg/dL Calcium 7.2 L (8.4-10.2) mg/dL 02/06/22 02/06/22 02/06/22 Range/Units 05:15 05:55 11:40 WBC (3.8-10.6) k/uL RBC (4.30-5.90) m/uL Hgb (13.0-17.5) gm/dL Hct (39.0-53.0) % MCHC (31.0-37.0) g/dL RDW (11.5-15.5) % PT 21.3 H (9.0-12.0) sec INR 2.1 H (<1.2) Hemoglobin 11.2 L (13.0-17.5) gm/dL Potassium (3.5-5.1) mmol/L Chloride (98-107) mmol/L Carbon Dioxide (22-30) mmol/L BUN (9-20) mg/dL Creatinine (0.66-1.25) mg/dL Glucose (74-99) mg/dL POC Glucose (mg/dL) 59 L (70-110) mg/dL Calcium (8.4-10.2) mg/dL 02/06/22 Range/Units 12:01 WBC (3.8-10.6) k/uL RBC (4.30-5.90) m/uL Hgb (13.0-17.5) gm/dL Hct (39.0-53.0) % MCHC (31.0-37.0) g/dL RDW (11.5-15.5) % PT (9.0-12.0) sec INR (<1.2) Hemoglobin (13.0-17.5) gm/dL Potassium (3.5-5.1) mmol/L Chloride (98-107) mmol/L Carbon Dioxide (22-30) mmol/L BUN (9-20) mg/dL Creatinine (0.66-1.25) mg/dL Glucose (74-99) mg/dL POC Glucose (mg/dL) 140 H (70-110) mg/dL Calcium (8.4-10.2) mg/dL Microbiology - Last 24 Hours (Table) 02/04/22 09:39 Blood Culture - Preliminary Blood No Growth after 48 hours 02/04/22 09:39 Blood Culture - Preliminary Blood No Growth after 48 hours 02/05/22 23:55 Sputum Culture - Preliminary Sputum 02/01/22 08:55 Blood Culture Gram Stain - Final Blood Blood Culture - Final Staphylococcus aureus Assessment and Plan (1) Cellulitis Current Visit: Yes Status: Acute Code(s): L03.90 - CELLULITIS, UNSPECIFIED SNOMED Code(s): 296686892 Plan: 1patient with right foot unstageable pressure ulcer with surrounding necrotic area and cellulitis x-rays do not show any bony changes likely from gram- positive skin caleb and less likely gram-negative pathogen, patient is status post vascular surgery evaluation and debridement and deep cultureWhich has been finalized with strep and MSSA. 2-patient with MSSA bacteremia source is likely right foot infected pressure ulcer, Repeat blood culture has been negative 3Patient did have significant abnormality seen on the CT obtained by surgery with concern for possible fecal impaction and some inflammation of the colon and possible fistula. Denies any medical range to cefepime and Flagyl to cover for intra-abdominal pathogens and monitor glucose closely Time with Patient: Less than 30
--- NOTE | 2022-02-06 17:24 | CDI ---
Documentation Clarification Form Date: 02/06/2022 01:21:00 PM From: Erin Daley RN, CCDS Admit Date: 01/31/2022 05:07:00 AM Patient Name: Juanpablo Troy Visit Number: [id number] Discharge Date: ATTENTION: The Clinical Documentation Specialists (CDI) and [facility] Coding Staff appreciate your assistance in clarifying documentation. Please respond to the clarification below the line at the bottom and electronically sign. The CDI & [facility] Coding staff will review the response and follow-up if needed. Please note: Queries are made part of the Legal Health Record. If you have any questions, please contact the author of this message via ITS. Dr. Derrick Mcdaniel The patient presented with the following clinical indicators. Additional clarification regarding the etiology/cause of the clinical indicators is requested. 02/06 Nephrology progress notes: Acute kidney injury ATN, secondary to sepsis and hypotension. 02/02 ID: Right foot infected pressure ulcer and bacteremia. Cellulitis, MSSA bacteremia. History/Risk Factors: Atrial fibrillation, COPD, Diabetes mellitus, hypertension Clinical Indicators: 61-year-old male present to ER on 01/31 after a fall. He denies any fever, chills, sore throat cough. He has a right foot ulcer there is cellulitis with necrotic tissue 01/31 WBC: 25.8, BUN 24, CR 1.82 01/31 UA: Ur Leukocyte esterase Moderate 01/31 Vital signs: 172/97 129 20 98.6 93 % RA 01/31 Blood cultures: Staphylococcus aureus, 02/01 blood cultures Staphylococcus aureus EKG: Atrial fibrillation with RVR 129 Treatment: ICU/Telemetry monitoring 02/05 Mechanical vent monitoring per pulmonary Cefpime 2GM IVPB Q 12 HRS 02/06 Flagyl 500 IVPB Q 8 HRS Levophed 4mg IV per orders 02/05 .9 NS IV Bolus 1,000ML 02/05 X1, and 02/06 1,000x 1 In your professional opinion, please clarify if these findings signify one of the following conditions: [ ] Bacteremia with Sepsis POA [ ] Bacteremia with Sepsis, Not POA [ ] Sepsis ruled out [ ] Severe Sepsis with organ failure [ ] Septic Shock [ ] SIRS, without underlying infectious process [ ] Other, please specify [ ] Unable to determine SIRS Criteria: 2 or more of the following may indicate SIRS -Temperature < 96.8F (36C) or > 101.0F (38.3C) -Heart Rate > 90 bpm -Respiratory Rate > 20 breaths/min or PaCO2 < 32 mmHg -White Blood Cell Count > 12,000 or < 4,000 cells/mm3 or > 10% bands (Template Last Reviewed: July 2020) Septic shock MTDD
[2022-02-06] MEDS ORDERED: WARFARIN 1.5 MG TAB PO ONE (18:00)
[2022-02-06 18:02] LABS: Glucose,Whole Blood 66 mg/dL (70-110)
[2022-02-06 18:21] LABS: Glucose,Whole Blood 160 mg/dL (70-110)
[2022-02-06] MEDS: NOREPINEPHRINE 4 MG in SODIUM CHLORIDE 0.9% 250 ML IV SCH (18:26)
[2022-02-06] MEDS ORDERED: Potassium Replacement Protocol 1 EACH MISC MISCELLANE PRN (19:09)
[2022-02-06 20:59] LABS: Glucose,Whole Blood 90 mg/dL (70-110)
[2022-02-06] MEDS: CEFEPIME 1 GM in SODIUM CHLORIDE 0.9% 50 ML IVPB SCH (21:22)
[2022-02-06] MEDS: INSULIN DETEMIR (LEVEMIR) 100 UNIT/ML SYR SQ SCH (21:30)
[2022-02-07 00:18] LABS: Glucose,Whole Blood 76 mg/dL (70-110)
[2022-02-07] MEDS: INSULIN ASPART (NovoLOG) 100 UNIT/ML VIAL SQ SCH ×4 (00:21→17:57)
[2022-02-07] MEDS: metroNIDAZOLE-NS PMX 500 MG in SALINE 1 100ML.BAG IVPB SCH ×3 (00:29→14:45)
[2022-02-07] MEDS: SODIUM CHLORIDE 0.9% 1,000 ML IV SCH ×2 (03:39→09:27)
[2022-02-07 05:15] LABS: Anisocytosis Slight; HCT 38.3 % (39.0-53.0); HGB 11.6 gm/dL (13.0-17.5); Hypochromasia Marked; MCHC 30.4 g/dL (31.0-37.0); Mean Platelet Volume 9.3; Platelet Count 158 k/uL (150-450); RBC 4.16 m/uL (4.30-5.90); RDW 16.2 % (11.5-15.5); WBC 18.5 k/uL (3.8-10.6)
[2022-02-07 05:28] LABS: INR 2.2 (<1.2); Prothrombin Time 22.4 sec (9.0-12.0)
[2022-02-07 05:33] LABS: Calcium 7.3 mg/dL (8.4-10.2); Potassium 3.7 mmol/L (3.5-5.1)
[2022-02-07 05:38] LABS: ABG Base Excess -7.5 mmol/L; ABG HCO3 19 mmol/L (21-25); ABG Hematocrit 35 % (34.0-46.0); ABG Oxygen Saturation 95.7 % (94-97); ABG PCO2 36 mmHg (35-45); ABG PH 7.33 (7.35-7.45); ABG PO2 79 mmHg (83-108); ABG TCO2 20 mmol/L (19-24); Allen Test Performed? Yes
[2022-02-07 06:01] LABS: Glucose,Whole Blood 84 mg/dL (70-110)
--- NOTE | 2022-02-07 07:26 | XR ---
EXAMINATION TYPE: XR chest 1V portable DATE OF EXAM: 02/07/2022 5:56 AM COMPARISON: Chest radiograph from one day prior. TECHNIQUE: XR chest 1V portable Portable AP radiograph of the chest. CLINICAL INDICATION:Male, 61 years old with history of Tube placement; FINDINGS: Lungs/Pleura: There is no evidence of pleural effusion, focal consolidation, or pneumothorax. Pulmonary vascularity: Pulmonary vascular congestion. Heart/mediastinum: Cardiomediastinal silhouette is enlarged and stable. Musculoskeletal: No acute osseous pathology. Other findings: None Lines/Tubes: Endotracheal tube with distal tip xx cm above the jodi Nasogastric tube with its distal tip and side-port projecting under the diaphragm. Right-sided central venous catheter with distal tip at the cavoatrial junction. IMPRESSION: Stable exam with stable support lines and tubes. Correlate for congestive heart failure.
[2022-02-07] MEDS: IPRATROPIUM-ALBUTEROL 3 ML NEB INHALATION SCH ×4 (08:06→20:06)
[2022-02-07] MEDS: BUDESONIDE 1 MG/2 ML NEBU INHALATION SCH ×2 (08:06→20:06)
--- NOTE | 2022-02-07 08:56 | P.PN ---
Progress Note - Text Progress Note Date: 02/07/22 Patient remains on the ventilator. His white count is 18.5 in the was 11.6. There is no evidence of GI bleed. His CAT scan from yesterday shows evidence of possible mild inflammatory changes around the cecum. Abdomen is soft distended there is no peritoneal signs. History of upper GI bleed and fecal impaction. Patient will be observed. No surgical intervention is planned at this point. He'll continue receive ICU supportive care.
[2022-02-07] MEDS ORDERED: FUROSEMIDE 10 MG/ML 10 ML VIAL IV STA (09:00)
[2022-02-07] MEDS: PANTOPRAZOLE 40 MG/10 ML VIAL IVP SCH ×2 (09:12→20:52)
[2022-02-07] MEDS: CHLORHEXIDINE GLUCONATE 15 ML CUP MUCOUS MEM SCH ×2 (09:16→20:53)
[2022-02-07] MEDS: MORPHINE SULFATE ER 15 MG TABLET PO SCH ×2 (09:20→20:51)
[2022-02-07] MEDS: AMIODARONE 200 MG TAB PO SCH ×2 (09:20→20:51)
[2022-02-07] MEDS: PREGABALIN 100 MG CAP PO SCH ×2 (09:20→20:52)
[2022-02-07] MEDS: guaiFENesin 600 MG TABLET.ER PO SCH ×4 (09:21→22:08)
[2022-02-07] MEDS: TAMSULOSIN 0.4 MG CAP.ER.24H PO SCH (09:21)
[2022-02-07] MEDS: COLLAGENASE 250 UNIT/GM OINTMENT 30 GM TUBE TOPICAL SCH (09:22)
[2022-02-07] MEDS: NICOTINE 21MG/24HR PATCH TRANSDERM SCH (09:22)
[2022-02-07] MEDS: levETIRAcetam IV 500 MG in SODIUM CHLORIDE 0.9% 100 ML IVPB SCH ×2 (09:26→20:52)
[2022-02-07] MEDS: CEFEPIME 1 GM in SODIUM CHLORIDE 0.9% 50 ML IVPB SCH ×2 (09:26→20:53)
[2022-02-07] MEDS: METOPROLOL TARTRATE 25 MG TAB PO SCH ×2 (09:26→20:52)
[2022-02-07] MEDS ORDERED: SODIUM CHLORIDE 0.9% 500 ML 500 ML IV ONE (10:57)
--- NOTE | 2022-02-07 10:57 | P.PN ---
Subjective Progress Note Date: 02/07/22 Principal diagnosis: 60-year-old male seen in consultation because of acute kidney injury. He has MSSA bacteremia likely from a fracture and wound right foot. He is currently intubated and on small doses of levo fed. His urine output is going down his creatinine going up. He is on 45% FiO2 chest x-ray is not suggestive of CHF but bilateral small effusions are noted. Comput ed tomography scan of the abdomen done yesterday, showed right ureteral stone without any hydronephrosis but also showed possible fistula in the perianal area. Thickening of the cecum and ascending colon with distention of the rectum with solid stools. He has a CVP of his readings 0 unit after recalibration. Blood pressures in the 80s to 90s range. Urine output is documented at 720 mL Objective - Vital Signs Vital signs: Vital Signs Temp 98.6 F 02/07/22 04:00 Pulse 75 02/07/22 08:24 Resp 24 02/07/22 08:24 BP 115/61 02/07/22 05:30 Pulse Ox 95 02/07/22 07:00 FiO2 45 02/07/22 08:00 Intake & Output 02/06/22 02/07/22 02/07/22 18:59 06:59 18:59 Intake Total 3989.564 2048.391 118.005 Output Total 385 335 25 Balance 3604.564 1713.391 93.005 Weight 133.1 kg Intake: IV 3255 1416 106 Cefepime 1 gm In Sodium 50 Chloride 0.9% 50 ml @ 12. 5 mls/hr IVPB Q12HR [facility] Rx#:[id number] Pressure bags 66 6 Sodium Chloride 0.9% 1, 2105 1200 100 000 ml @ 100 mls/hr IV . Q10H [facility] Rx#:[id number] Sodium Chloride 0.9% 1, 1000 000 ml @ 999 mls/hr IV . Q1H1M [facility] Rx#:[id number] ceFAZolin 2 gm In Sodium 50 Chloride 0.9% 50 ml @ 100 mls/hr IVPB Q8HR [facility] Rx# :[id number] levETIRAcetam IV 500 mg 100 100 In Sodium Chloride 0.9% 100 ml @ 400 mls/hr IVPB Q12HR [facility] Rx#:[id number] Intake, IV Titration 734.564 572.391 12.005 Amount Cefepime 2 gm In Sodium 100 Chloride 0.9% 100 ml @ 25 mls/hr IVPB Q12H [facility] Rx# :[id number] Norepinephrine 4 mg In 174.532 172.391 12.005 Sodium Chloride 0.9% 250 ml @ 0.05 MCG/KG/MIN 25. 908 mls/hr IV .Q9H49M [facility] Rx#:[id number] metroNIDAZOLE-NS PMX 500 100 mg In Saline 1 100ml.bag @ 100 mls/hr IVPB Q8HR [facility] Rx#:[id number] propofoL 1,000 mg In 360.032 400 Empty Bag 1 bag @ 5 MCG/ KG/MIN 4.08 mls/hr IV . Q24H [facility] Rx#:[id number] Other 60 Output: Urine 385 335 25 Other: Voiding Method Indwelling Catheter Indwelling Catheter # Bowel Movements 1 ABP, PAP, CO, CI - Last Documented Arterial Blood Pressure 134/48 On examination ventilated 45% FiO2 Sedated Lungs are clear to auscultation fair air entry bilaterally Heart sounds unremarkable no murmur rub gallop normal sinus rhythm on the monitor although previously had atrial fibrillation Abdomen is soft nondistended Extremity is mild to moderate edema Neurologically obtunded sedated - Labs CBC & Chem 7: 02/07/22 04:55 02/07/22 04:55 Labs: Abnormal Lab Results - Last 24 Hours (Table) 02/06/22 02/06/22 02/06/22 Range/Units 11:40 12:01 18:00 WBC (3.8-10.6) k/uL RBC (4.30-5.90) m/uL Hgb (13.0-17.5) gm/dL Hct (39.0-53.0) % MCHC (31.0-37.0) g/dL RDW (11.5-15.5) % PT (9.0-12.0) sec INR (<1.2) ABG pH (7.35-7.45) ABG pO2 (83-108) mmHg ABG HCO3 (21-25) mmol/L Hemoglobin (13.0-17.5) gm/dL Potassium (3.5-5.1) mmol/L Chloride (98-107) mmol/L Carbon Dioxide (22-30) mmol/L BUN (9-20) mg/dL Creatinine (0.66-1.25) mg/dL POC Glucose (mg/dL) 59 L 140 H 66 L (70-110) mg/dL Calcium (8.4-10.2) mg/dL 02/06/22 02/06/22 02/07/22 Range/Units 18:19 18:32 04:55 WBC (3.8-10.6) k/uL RBC (4.30-5.90) m/uL Hgb (13.0-17.5) gm/dL Hct (39.0-53.0) % MCHC (31.0-37.0) g/dL RDW (11.5-15.5) % PT 22.4 H (9.0-12.0) sec INR 2.2 H (<1.2) ABG pH (7.35-7.45) ABG pO2 (83-108) mmHg ABG HCO3 (21-25) mmol/L Hemoglobin (13.0-17.5) gm/dL Potassium 3.1 L (3.5-5.1) mmol/L Chloride (98-107) mmol/L Carbon Dioxide (22-30) mmol/L BUN (9-20) mg/dL Creatinine (0.66-1.25) mg/dL POC Glucose (mg/dL) 160 H (70-110) mg/dL Calcium (8.4-10.2) mg/dL 02/07/22 02/07/22 02/07/22 Range/Units 04:55 04:55 05:20 WBC 18.5 H (3.8-10.6) k/uL RBC 4.16 L (4.30-5.90) m/uL Hgb 11.6 L (13.0-17.5) gm/dL Hct 38.3 L (39.0-53.0) % MCHC 30.4 L (31.0-37.0) g/dL RDW 16.2 H (11.5-15.5) % PT (9.0-12.0) sec INR (<1.2) ABG pH 7.33 L (7.35-7.45) ABG pO2 79 L (83-108) mmHg ABG HCO3 19 L (21-25) mmol/L Hemoglobin 11.4 L (13.0-17.5) gm/dL Potassium (3.5-5.1) mmol/L Chloride 113 H (98-107) mmol/L Carbon Dioxide 18 L (22-30) mmol/L BUN 49 H (9-20) mg/dL Creatinine 3.73 H (0.66-1.25) mg/dL POC Glucose (mg/dL) (70-110) mg/dL Calcium 7.3 L (8.4-10.2) mg/dL Microbiology - Last 24 Hours (Table) 02/05/22 23:55 Gram Stain - Preliminary Sputum Sputum Culture - Preliminary 02/04/22 09:39 Blood Culture - Preliminary Blood No Growth after 48 hours 02/04/22 09:39 Blood Culture - Preliminary Blood No Growth after 48 hours Assessment and Plan Assessment: Impression 1. Acute kidney injury from sepsis with gram-positive bacteremia MSSA, hypotensive. Creatinine worsening urine output though is improving 2. Ventilator dependent respiratory failure, on 45% FiO2 3. On small doses of Levophed 4. Right renal calculus nonobstructing in the ureter by computed tomography scan 5. Loaded colon on computed tomography scan 6. 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 Trial of 500 mL saline and see if the CVP pressure comes up 2. Hoping renal function will improve as the urine output is documented to be 720 mL for the last 24 hours
[2022-02-07 11:28] LABS: Glucose,Whole Blood 72 mg/dL (70-110)
--- NOTE | 2022-02-07 12:20 | P.PN ---
Subjective Progress Note Date: 02/07/22 Principal diagnosis: Multiple right-sided rib fractures and a right sided pulmonary contusion with compression fractures of lumbar spine This is a extremely debilitated 61-year-old male patient who is known to monitor milligrams and comorbidities and I was asked to evaluate this patient because of a fall and limited hemoptysis. The patient is known to have a combination of i ssues including diabetes mellitus and diabetic peripheral neuropathy and the patient has had previous episodes of falls and he has issues with chronic atrial flutter maintained on long-term anticoagulation with warfarin. He is morbidly obese. He has hypertension and hyperlipidemia as comorbid conditions along with chronic kidney disease. He is morbidly obese. He has history of COPD and is a chronic smoker. He comes in to the hospital after he had a fall at home. He was the bathroom and he slept and he landed on his left chest. Here in the hospital, the patient was found to be Coumadin toxic and his INR was above 10. He did have some limited hemoptysis and coffee-ground emesis without any melanotic stools. No abdominal pain. He was noted to have a large ulcer over the right ankle/malleolus area which is a chronic wound. Immediately the patient was given vitamin K. This computed tomography scan of the chest shows some right lateral eighth through 10th rib fractures with trace amount of right- sided pleural effusion and right basilar atelectasis related to underlying pulmonary contusion. No evidence of any pneumothorax. Some limited patchy airspace disease in the left upper lobe probably inflammatory in the same time the patient had dilated pulmonary arteries indicating possibility of pulmonary hypertension and a fluid and gas-filled distended stomach. I noted the patient has not had a CAT scan of the brain and a CAT scan was done that showed no acute intracranial process. There was a remote left occipital lobe injury along with some nonspecific white matter changes secondary to chronic microangiopathy. This computed tomography scan of the lumbar spine showed acute anterior wedge compression deformity of L1 vertebral body with a 30% loss in height along with multilevel degenerative disc changes and a 7 mm In the right pelvis. Patient was already seen by general surgery and orthopedic surgery. Lumbar spine x-ray that was done on 2021 showed no acute fracture. The patient was also seen by vascular surgery for a right lateral foot wound and this is a stage II wound 8.5 x 4 cm in size. Debridement was done by vascular surgery. On 02/02/2022, the patient is confused which is unchanged compared to yesterday. CAT scan of the brain was done yesterday showed no acute abnormalities. He did not have any further episodes of hemoptysis. His coagulopathy was reversed. I noted some coffee-ground emesis yesterday and subsequently developed some ab dominal distention and ileus was suspected. NG tube was inserted. On multiple occasions, he pulled out his NG tube. This morning, NG tube is in place and the total amount of output is in order of 25 mL since morning and he does have some old retained coffee-ground material in the canister since yesterday in the order of 200 mL. Abdomen is soft. He is laying comfortably in bed. He is off anti coagulation for now. He is an IV fluids and currently receiving 0.9 at a rate of 100 mL an hour. He is also on a Cardizem drip for atrial flutter with RVR. His heart rates currently is in order of 130 beats per minute. He is still tachycardic. The Cardizem rate accordingly was increased and is being adjusted and titrated by cardiology.The white cell count is at 17.7 hemoglobin 15.3 and a platelet count of 166, the patient also has a sodium level of 136, potassium is being replaced is currently down to 3 and a BUN is at 29 with a creatinine of 1.62. Serum bicarbs at 23. Correlation profile is normalized. The patient only on Lovenox for DVT prophylaxis. Reevaluated today on 02/03/22, patient remains in the ICU, presently on 2 L nasal cannula, patient remains unresponsive to any stimuli including deep painful stimuli. Patient remains obtunded, he has a Glascow coma score of 3, speech and language could not be assessed. Patient is having multifocal myoclonic twitching. Mostly the facial region. Seen by neurology this morning, felt to have acute metabolic encephalopathy, EEG did not reveal any evidence of epileptiform activity. EEG was suggestive of metabolic encephalopathy patient was kept on Keppra for now. Suggesting MRI of the brain to rule out CVA. And recommending that the patient goes back on anticoagulation for atrial fibrillation when medically cleared. Pulmonary-[place], the patient is basically the same, he does have fractures but does not seem to be compromising his oxygenation. Patient is on 2 L nasal cannula, and O2 saturation is in the 90s. He is on Cardizem at 15 mg per hour for his atrial fibrillation. 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 Blood cultures have been positive for presumptive staph aureus. These have been positive since admission. Cultures from right ankle 1 showed Staphylococcus aureus and strep agalactiae group B, patient is being followed by infectious disease on the case Reevaluated today on 02/04/22, patient remains in the ICU, he is on 2 L nasal cannula. Patient remains obtunded. Continues to have positive blood cultures, staph aureus and staph epidermidis. Remains on antibiotics as per infectious disease on the case. Continues to have a Glascow coma score of 3. Patient continues to have multiple myoclonic twitching in the face. He is not waking up even with deep painful stimuli. Patient remains very encephalopathic. Not much of a change in the last 24 hours. Repeat blood cultures today are pending but he had positive blood cultures from 01/31 and from 02/01. Patient may have to be considered for possible TIFFANI if his blood cultures remain positive. His right foot wound culture is also positive for staph aureus and for Streptococcus group B. Patient is being followed by many consultants including cardiology and infectious disease and neurology. His neurological status seems to be quite concerning. WBC count today is 16.2 hemoglobin is 12.4 7 normal BUN is 36 creatinine 1.84 Reevaluated today on 02/05/22, patient's clinical status. Deteriorated last night, patient required intubation and mechanical ventilation. Patient had ABG earlier this morning, and his pO2 was 137 pCO2 85 pH of 7.12 and patient was noted to remain obtunded. I was notified about the ABG, I recommended immediate intubation of the patient and follow-up ABG on 50% showed a pO2 of 111 pCO2 of 60 and pH of 7.24. Today he was noted to be on assist control rate of 2010 volume 500 FiO2 50% and PEEP of 5 hence after reviewing the ABG I changed his rate up to 24 kept him on 500 tidal volume cut down the FiO2 to 45% and The PEEP at 5. Repeat ABG is pending. Patient is requiring amiodarone for his atrial fibrillation with RVR he is on 0.5 mg/m patient is also on propofol at 10 mcg/kg/m he was on cefazolin for his MSSA infection and possible blood cultures. He is also on 0.9 normal saline at 100 mL per hour. WBC count is 19.1 hemoglobin is 11.5 INR is 1.8. Basic metabolic profile is normal however his BU N is 37 and creatinine 2.38. Chest x-ray today at 11:40 showed right lower lobe atelectasis, strongly doubt pneumonia. Patient was reevaluated today on 02/06/22, remains in the ICU, intubated and mech anically ventilated. Patient is sedated, his ventilator settings are assist control rate of 24 tidal volume 500 FiO2 45% and PEEP of 5. ABG showed a pO2 of 85 pCO2 37 pH of 7.37 patient had worsening urine output and worsening renal status overnight, received almost 4 L of fluids, continue to have low urine output and this morning he received 80 mg of Lasix IV push. CVP continues to read the low below 7. His endotracheal tube was noted to be sitting high in the trachea and it will be advanced about 3 cm. Patient remains on propofol at 40 mcg/kg/m IV fluids/normal saline at 100 mL per hour norepinephrine at 0.02 mcg/kg/m today I recommended a nephrology consultation and the patient will be undergoing CT of the abdomen for ileus. The CT of the abdomen showed mild to moderate circumferential wall thickening of the cecum and ascending colon possible nonspecific infectious or inflammatory colitis. There was also distention of the rectum up to 7.5 cm with solid stool. Patient is developing fecal impaction. There is also the possibility of perianal fistula noted on the CT of the abdomen and pelvis. Blood cultures from 97 and 98 are negative so far. Previous blood cultures from 01/31 hence 02/01 were positive for staph aureus Patient was reevaluated today on 02/07/22, patient remains in the ICU, intubated and mechanically ventilated. Patient is on assist control rate of 24 tidal volume 500 FiO2 45% PEEP of 5 ABG showed a pO2 of 79 pCO2 36 pH of 7.33. Continues to have very low urine output, renal functioning seems to be getting worse, and nephrology as on consultation, today I cut down his IV fluid to 50 mL/h and I gave him a dose of Lasix 80 mg IV push. Again his urine output is extremely marginal. Patient is off norepinephrine today blood pressure seems to be better controlled. He is on propofol at 30 mcg/kg/m IV fluid cut down to 50 mL/h and he is on tube feeding. No changes were made today for his ventilator settings chest x-ray continues to show small bilateral patchy airspace disease, and possibly some component of pleural effusion is noted bilaterally. WBC count is 18.5 hemoglobin 11.6. INR is 2.2 electrolytes are normal bicarb is 18 BUN is 49, and 3.73 creatinine up from yesterday Objective - Vital Signs Vital signs: Vital Signs Temp 98.6 F 02/07/22 04:00 Pulse 75 02/07/22 12:00 Resp 24 02/07/22 12:00 BP 115/69 02/07/22 12:00 Pulse Ox 95 02/07/22 12:00 FiO2 45 02/07/22 11:06 Intake & Output 02/06/22 02/07/22 02/07/22 18:59 06:59 18:59 Intake Total 3989.564 2048.391 256.521 Output Total 385 335 25 Balance 3604.564 1713.391 231.521 Weight 133.1 kg Intake: IV 3255 1416 106 Cefepime 1 gm In Sodium 50 Chloride 0.9% 50 ml @ 12. 5 mls/hr IVPB Q12HR [facility] Rx#:[id number] Pressure bags 66 6 Sodium Chloride 0.9% 1, 2105 1200 100 000 ml @ 100 mls/hr IV . Q10H [facility] Rx#:[id number] Sodium Chloride 0.9% 1, 1000 000 ml @ 999 mls/hr IV . Q1H1M [facility] Rx#:[id number] ceFAZolin 2 gm In Sodium 50 Chloride 0.9% 50 ml @ 100 mls/hr IVPB Q8HR [facility] Rx# :[id number] levETIRAcetam IV 500 mg 100 100 In Sodium Chloride 0.9% 100 ml @ 400 mls/hr IVPB Q12HR [facility] Rx#:[id number] Intake, IV Titration 734.564 572.391 150.521 Amount Cefepime 2 gm In Sodium 100 Chloride 0.9% 100 ml @ 25 mls/hr IVPB Q12H [facility] Rx# :[id number] Norepinephrine 4 mg In 174.532 172.391 50.521 Sodium Chloride 0.9% 250 ml @ 0.05 MCG/KG/MIN 25. 908 mls/hr IV .Q9H49M [facility] Rx#:[id number] metroNIDAZOLE-NS PMX 500 100 mg In Saline 1 100ml.bag @ 100 mls/hr IVPB Q8HR [facility] Rx#:[id number] propofoL 1,000 mg In 360.032 400 100 Empty Bag 1 bag @ 5 MCG/ KG/MIN 4.08 mls/hr IV . Q24H [facility] Rx#:[id number] Other 60 Output: Urine 385 335 25 Other: Voiding Method Indwelling Catheter Indwelling Catheter # Bowel Movements 1 ABP, PAP, CO, CI - Last Documented Arterial Blood Pressure 99/43 - Exam GENERAL: Revealed a 61-year-old white male, intubated, mechanically ventilated, sedated. On propofol. Off norepinephrine. Blood pressure is fluctuating up and down, presently is off norepinephrine Head atraumatic, normocephalic. EYES: Pupils equal. Conjunctiva normal. HEENT: External appearance of nose and ears normal, oral cavity grossly normal. NECK: JVD not raised; masses not palpable. HEART: Normal S1 and S2, no S3 gallop, irregular rhythm. LUNGS: Diminished breath sounds and crackles at the bases. ABDOMEN: Soft, distended, no megaly no rebound no guarding PSYCH: Cannot be assessed, sedated with propofol. Patient was obtunded to begin with before intubation. DERMATOLOGICAL: Large wound around the lateral malleolus right foot Gangrene Changes, wrapped with sterile dressing. MUSCULOSKELETAL:No Clubbing/cyanosis;muscles-grossly intact, NEUROLOGICAL: Unable to assess. - Labs CBC & Chem 7: 02/07/22 04:55 02/07/22 04:55 Labs: Abnormal Lab Results - Last 24 Hours (Table) 02/06/22 02/06/22 02/06/22 Range/Units 18:00 18:19 18:32 WBC (3.8-10.6) k/uL RBC (4.30-5.90) m/uL Hgb (13.0-17.5) gm/dL Hct (39.0-53.0) % MCHC (31.0-37.0) g/dL RDW (11.5-15.5) % PT (9.0-12.0) sec INR (<1.2) ABG pH (7.35-7.45) ABG pO2 (83-108) mmHg ABG HCO3 (21-25) mmol/L Hemoglobin (13.0-17.5) gm/dL Potassium 3.1 L (3.5-5.1) mmol/L Chloride (98-107) mmol/L Carbon Dioxide (22-30) mmol/L BUN (9-20) mg/dL Creatinine (0.66-1.25) mg/dL POC Glucose (mg/dL) 66 L 160 H (70-110) mg/dL Calcium (8.4-10.2) mg/dL 02/07/22 02/07/22 02/07/22 Range/Units 04:55 04:55 04:55 WBC 18.5 H (3.8-10.6) k/uL RBC 4.16 L (4.30-5.90) m/uL Hgb 11.6 L (13.0-17.5) gm/dL Hct 38.3 L (39.0-53.0) % MCHC 30.4 L (31.0-37.0) g/dL RDW 16.2 H (11.5-15.5) % PT 22.4 H (9.0-12.0) sec INR 2.2 H (<1.2) ABG pH (7.35-7.45) ABG pO2 (83-108) mmHg ABG HCO3 (21-25) mmol/L Hemoglobin (13.0-17.5) gm/dL Potassium (3.5-5.1) mmol/L Chloride 113 H (98-107) mmol/L Carbon Dioxide 18 L (22-30) mmol/L BUN 49 H (9-20) mg/dL Creatinine 3.73 H (0.66-1.25) mg/dL POC Glucose (mg/dL) (70-110) mg/dL Calcium 7.3 L (8.4-10.2) mg/dL 02/07/22 Range/Units 05:20 WBC (3.8-10.6) k/uL RBC (4.30-5.90) m/uL Hgb (13.0-17.5) gm/dL Hct (39.0-53.0) % MCHC (31.0-37.0) g/dL RDW (11.5-15.5) % PT (9.0-12.0) sec INR (<1.2) ABG pH 7.33 L (7.35-7.45) ABG pO2 79 L (83-108) mmHg ABG HCO3 19 L (21-25) mmol/L Hemoglobin 11.4 L (13.0-17.5) gm/dL Potassium (3.5-5.1) mmol/L Chloride (98-107) mmol/L Carbon Dioxide (22-30) mmol/L BUN (9-20) mg/dL Creatinine (0.66-1.25) mg/dL POC Glucose (mg/dL) (70-110) mg/dL Calcium (8.4-10.2) mg/dL Microbiology - Last 24 Hours (Table) 02/04/22 09:39 Blood Culture - Preliminary Blood No Growth after 72 hours 02/04/22 09:39 Blood Culture - Preliminary Blood No Growth after 72 hours 02/05/22 23:55 Gram Stain - Preliminary Sputum Sputum Culture - Preliminary Assessment and Plan Assessment: Impression: Acute hypercapnic respiratory failure Acute metabolic encephalopathy Right sided rib fractures, traumatic, secondary to fall, Right sided pulmonary contusion. Anterior wedge compression fracture of L1 Hemoptysis secondary to contusion and exacerbated by Coumadin coagulopathy Underlying COPD and chronic smoking Coumadin toxicity with INR above 10 on admission, recovered History of frequent falls. Metabolic encephalopathy, acute, being addressed by neurology on the case. Chronic atrial fibrillation. Acute on Chronic kidney disease stage III. Stage II right ankle wound requiring debridement and positive for MSSA/staph aureus and strep agalactiae Positive bacteremia, however his blood cultures have been negative from 02/04 and 02/05. Diabetic peripheral neuropathy History of Nephrolithiasis Nonspecific colitis Perianal fistula Recommendation: Continue ventilatory support Continue antibiotics for his ongoing bacteremia, MSSA bacteremia Trial of diuresis using Lasix 80 mg IV push today. Continue hemodynamic monitoring, and use norepinephrine if necessary. Continue antibiotics for his gram-positive bacteremia cultures on the last 3 d ays have been negative Nutritional support/enteral feeding, to be continued. Continue GI and DVT prophylaxis Continue amiodarone. Continue anticoagulation therapy, INR is therapeutic Prognosis remains poor and guarded Critical care time is over 30 minutes Patient may eventually require tracheostomy and PEG tube placement, this is based on the fact that the patient was even quite obtunded from initial presentation to begin with. Even before intubating him. We will continue to follow. Time with Patient: Greater than 30
[2022-02-07] MEDS: NOREPINEPHRINE 4 MG in SODIUM CHLORIDE 0.9% 250 ML IV SCH ×4 (13:24→17:02)
--- NOTE | 2022-02-07 13:28 | P.PN ---
Subjective HISTORY OF PRESENTING ILLNESS Patient is a 61-year-old gentleman admitted to the hospital with atrial fibrillation with rapid ventricular rate in coagulopathy. Patient is seen today resting comfortably in bed he remains intubated. He continues on Coumadin for anticoagulation INR was therapeutic today at 2.1. Patient is sinus rhythm on telemetry and heart rate is well-controlled in the 70s. He continues on Levophed for blood pressure control. blood cultures are negative. At this time he does not require a TIFFANI. If further blood cultures become positive patient will need a TIFFANI to rule out vegetation. She was tolerating amiodarone will continue. 02/07 Patient seen and examined. Patient being weaned on sedation and able to make eye contact and somewhat more alert however heart rates going up in the 120s when sedation weaned. Patient still requiring low dose of norepinephrine currently 0.02. Nephrology evaluated patient and giving patient 1 L today. CVP noted to be 8. Creatinine increased up to 3.7 today area remains on ventilator with FiO2 40% and a PEEP of 5. Patient's metoprolol 25 twice a day was held secondary to borderline blood pressures on norepinephrine. PHYSICAL EXAMINATION Vital signs reviewed. CONSTITUTIONAL: No apparent distress, chronically ill appeairng, intubated and sedated HEENT: Head is normocephalic. Pupils are equal, round. Sclerae anicteric. Mucous membranes of the mouth are moist. No JVD. No carotid bruit. CHEST EXAMINATION: Bilateral wheeze HEART EXAMINATION: Irregularly irregular rate and rhythm. S1, S2 heard. No murmurs, gallops or rub. ABDOMEN: Soft, nontender. Positive bowel sounds. EXTREMITIES: 2+ peripheral pulses, no lower extremity edema and no calf tenderness. NEUROLOGIC EXAMINATION: Patient is sedated however mildly arousable ASSESSMENT 1. Acute on chronic respiratory failure 2. Metabolic encephalopathy status post intubation 3. Septic shock 4. Staph aureus bacteremia 2 of 2, repeat third and fourth no growth 5. Right-sided rib fractures secondary to fall 6. Persistent atrial fibrillation currently mild RVR 7. Diabetes mellitus type 2 8. Nonhealing ulcers may be source of staph aureus bacteremia 9. Acute on chronic kidney disease PLAN Patient's echo shows preserved EF. Patient with bacteremia with source possibly related to his nonhealing ulcers. If patient continues to have positive bacteremia patient will require TIFFANI. Patient currently A. fib with mild RVR. Continue with amiodarone as well as metoprolol. If patient decompensates could consider cardioversion however at this point has been tolerated well. Current RVR likely related to weaning sedation and may be a component of decreased intervascular volume. Patient to receive IV fluids 1 L bolus as well as restart tube feeding. Continue supportive care. Further recommendations to follow. Prognosis guarded. Objective - Vital Signs Vital signs: Vital Signs Temp 98.6 F 02/07/22 04:00 Pulse 75 02/07/22 12:00 Resp 24 02/07/22 12:00 BP 115/69 02/07/22 12:00 Pulse Ox 95 02/07/22 12:00 FiO2 45 02/07/22 11:06 Intake & Output 02/06/22 02/07/22 02/07/22 18:59 06:59 18:59 Intake Total 3989.564 2048.391 756.521 Output Total 385 335 100 Balance 3604.564 1713.391 656.521 Weight 133.1 kg Intake: IV 3255 1416 406 Cefepime 1 gm In Sodium 50 Chloride 0.9% 50 ml @ 12. 5 mls/hr IVPB Q12HR [facility] Rx#:[id number] Pressure bags 66 6 Sodium Chloride 0.9% 1, 2105 1200 300 000 ml @ 50 mls/hr IV . Q20H [facility] Rx#:[id number] Sodium Chloride 0.9% 1, 1000 000 ml @ 999 mls/hr IV . Q1H1M [facility] Rx#:[id number] ceFAZolin 2 gm In Sodium 50 Chloride 0.9% 50 ml @ 100 mls/hr IVPB Q8HR [facility] Rx# :[id number] levETIRAcetam IV 500 mg 100 100 100 In Sodium Chloride 0.9% 100 ml @ 400 mls/hr IVPB Q12HR [facility] Rx#:[id number] Intake, IV Titration 734.564 572.391 350.521 Amount Cefepime 1 gm In Sodium 100 Chloride 0.9% 50 ml @ 12. 5 mls/hr IVPB Q12HR [facility] Rx#:[id number] Cefepime 2 gm In Sodium 100 Chloride 0.9% 100 ml @ 25 mls/hr IVPB Q12H [facility] Rx# :[id number] Norepinephrine 4 mg In 174.532 172.391 50.521 Sodium Chloride 0.9% 250 ml @ 0.05 MCG/KG/MIN 25. 908 mls/hr IV .Q9H49M [facility] Rx#:[id number] metroNIDAZOLE-NS PMX 500 100 100 mg In Saline 1 100ml.bag @ 100 mls/hr IVPB Q8HR [facility] Rx#:[id number] propofoL 1,000 mg In 360.032 400 100 Empty Bag 1 bag @ 5 MCG/ KG/MIN 4.08 mls/hr IV . Q24H [facility] Rx#:[id number] Other 60 Output: Urine 385 335 100 Other: Voiding Method Indwelling Catheter Indwelling Catheter Indwelling Catheter # Bowel Movements 1 ABP, PAP, CO, CI - Last Documented Arterial Blood Pressure 99/43 - Labs CBC & Chem 7: 02/07/22 04:55 02/07/22 04:55 Labs: Abnormal Lab Results - Last 24 Hours (Table) 02/06/22 02/06/22 02/06/22 Range/Units 18:00 18:19 18:32 WBC (3.8-10.6) k/uL RBC (4.30-5.90) m/uL Hgb (13.0-17.5) gm/dL Hct (39.0-53.0) % MCHC (31.0-37.0) g/dL RDW (11.5-15.5) % PT (9.0-12.0) sec INR (<1.2) ABG pH (7.35-7.45) ABG pO2 (83-108) mmHg ABG HCO3 (21-25) mmol/L Hemoglobin (13.0-17.5) gm/dL Potassium 3.1 L (3.5-5.1) mmol/L Chloride (98-107) mmol/L Carbon Dioxide (22-30) mmol/L BUN (9-20) mg/dL Creatinine (0.66-1.25) mg/dL POC Glucose (mg/dL) 66 L 160 H (70-110) mg/dL Calcium (8.4-10.2) mg/dL 02/07/22 02/07/22 02/07/22 Range/Units 04:55 04:55 04:55 WBC 18.5 H (3.8-10.6) k/uL RBC 4.16 L (4.30-5.90) m/uL Hgb 11.6 L (13.0-17.5) gm/dL Hct 38.3 L (39.0-53.0) % MCHC 30.4 L (31.0-37.0) g/dL RDW 16.2 H (11.5-15.5) % PT 22.4 H (9.0-12.0) sec INR 2.2 H (<1.2) ABG pH (7.35-7.45) ABG pO2 (83-108) mmHg ABG HCO3 (21-25) mmol/L Hemoglobin (13.0-17.5) gm/dL Potassium (3.5-5.1) mmol/L Chloride 113 H (98-107) mmol/L Carbon Dioxide 18 L (22-30) mmol/L BUN 49 H (9-20) mg/dL Creatinine 3.73 H (0.66-1.25) mg/dL POC Glucose (mg/dL) (70-110) mg/dL Calcium 7.3 L (8.4-10.2) mg/dL 02/07/22 Range/Units 05:20 WBC (3.8-10.6) k/uL RBC (4.30-5.90) m/uL Hgb (13.0-17.5) gm/dL Hct (39.0-53.0) % MCHC (31.0-37.0) g/dL RDW (11.5-15.5) % PT (9.0-12.0) sec INR (<1.2) ABG pH 7.33 L (7.35-7.45) ABG pO2 79 L (83-108) mmHg ABG HCO3 19 L (21-25) mmol/L Hemoglobin 11.4 L (13.0-17.5) gm/dL Potassium (3.5-5.1) mmol/L Chloride (98-107) mmol/L Carbon Dioxide (22-30) mmol/L BUN (9-20) mg/dL Creatinine (0.66-1.25) mg/dL POC Glucose (mg/dL) (70-110) mg/dL Calcium (8.4-10.2) mg/dL Microbiology - Last 24 Hours (Table) 02/04/22 09:39 Blood Culture - Preliminary Blood No Growth after 72 hours 02/04/22 09:39 Blood Culture - Preliminary Blood No Growth after 72 hours 02/05/22 23:55 Gram Stain - Preliminary Sputum Sputum Culture - Preliminary
[2022-02-07 17:29] LABS: Glucose,Whole Blood 88 mg/dL (70-110)
[2022-02-07] MEDS ORDERED: WARFARIN 2 MG TAB PO ONE (18:00)
[2022-02-07 20:38] LABS: Glucose,Whole Blood 75 mg/dL (70-110)
[2022-02-07] MEDS: INSULIN DETEMIR (LEVEMIR) 100 UNIT/ML SYR SQ SCH (21:59)
[2022-02-08 00:36] LABS: Glucose,Whole Blood 93 mg/dL (70-110)
[2022-02-08] MEDS: INSULIN ASPART (NovoLOG) 100 UNIT/ML VIAL SQ SCH ×4 (00:36→18:04)
[2022-02-08] MEDS: metroNIDAZOLE-NS PMX 500 MG in SALINE 1 100ML.BAG IVPB SCH ×3 (00:38→15:55)
[2022-02-08] MEDS: SODIUM CHLORIDE 0.9% 1,000 ML IV SCH (03:00)
[2022-02-08] MEDS: NOREPINEPHRINE 4 MG in SODIUM CHLORIDE 0.9% 250 ML IV SCH ×4 (03:40→22:25)
[2022-02-08 05:08] LABS: Anisocytosis Slight; HCT 38.1 % (39.0-53.0); HGB 11.1 gm/dL (13.0-17.5); Hypochromasia Marked; MCH 26.9 pg (25.0-35.0); MCHC 29.1 g/dL (31.0-37.0); MCV 92.5 fL (80.0-100.0); Mean Platelet Volume 9.3; Platelet Count 162 k/uL (150-450); RBC 4.12 m/uL (4.30-5.90); RDW 16.4 % (11.5-15.5); WBC 23.6 k/uL (3.8-10.6)
[2022-02-08 05:19] LABS: Prothrombin Time 29.6 sec (9.0-12.0)
[2022-02-08 05:24] LABS: Calcium 7.2 mg/dL (8.4-10.2); Potassium 4.3 mmol/L (3.5-5.1)
[2022-02-08 05:44] LABS: ABG Base Excess -11.1 mmol/L; ABG HCO3 16 mmol/L (21-25); ABG Hematocrit 35 % (34.0-46.0); ABG PCO2 34 mmHg (35-45); ABG PH 7.28 (7.35-7.45); ABG PO2 95 mmHg (83-108); ABG TCO2 17 mmol/L (19-24); Allen Test Performed? Yes
[2022-02-08 05:51] LABS: Glucose,Whole Blood 100 mg/dL (70-110)
--- NOTE | 2022-02-08 06:53 | XR ---
EXAMINATION TYPE: XR chest 1V portable DATE OF EXAM: 02/08/2022 CLINICAL HISTORY: Difficulty breathing progress study. TECHNIQUE: Single AP portable semiupright view of the chest is obtained. COMPARISON: Chest x-ray from one day earlier and older studies. FINDINGS: Stable endotracheal and orogastric tubes. Stable right sided subclavian central venous cat heter. Stable mild cardiomegaly with slightly more prominent central vascular congestion and bibasilar opaci ties. No pneumothorax seen bilaterally. Osseous structures are intact. IMPRESSION: Findings suggest slightly worsening CHF exacerbation as there is cardiomegaly with mild t o moderate central vascular congestion and small to moderate size bilateral pleural effusions now tho ught present.
[2022-02-08] MEDS: IPRATROPIUM-ALBUTEROL 3 ML NEB INHALATION SCH ×4 (07:59→19:01)
[2022-02-08] MEDS: BUDESONIDE 1 MG/2 ML NEBU INHALATION SCH ×2 (08:01→19:01)
[2022-02-08] MEDS: PREGABALIN 100 MG CAP PO SCH ×2 (09:37→21:33)
[2022-02-08] MEDS: CEFEPIME 1 GM in SODIUM CHLORIDE 0.9% 50 ML IVPB SCH ×2 (09:37→21:49)
[2022-02-08] MEDS: AMIODARONE 200 MG TAB PO SCH ×2 (09:37→21:32)
[2022-02-08] MEDS: TAMSULOSIN 0.4 MG CAP.ER.24H PO SCH (09:37)
[2022-02-08] MEDS: guaiFENesin 600 MG TABLET.ER PO SCH ×4 (09:37→21:32)
[2022-02-08] MEDS: PANTOPRAZOLE 40 MG/10 ML VIAL IVP SCH ×2 (09:37→21:33)
[2022-02-08] MEDS: CHLORHEXIDINE GLUCONATE 15 ML CUP MUCOUS MEM SCH ×2 (09:38→21:32)
[2022-02-08] MEDS: NICOTINE 21MG/24HR PATCH TRANSDERM SCH (09:38)
[2022-02-08] MEDS: levETIRAcetam IV 500 MG in SODIUM CHLORIDE 0.9% 100 ML IVPB SCH ×2 (09:55→21:33)
--- NOTE | 2022-02-08 10:21 | P.PN ---
Progress Note - Text Progress Note Date: 02/08/22 The patient remains clinically unchanged. He still on the ventilator. His white count is 23,000. His hemoglobin is 11. There is no sign of GI bleed. His CAT scan shows some thickening of the cecum suggestive of colitis. Patient remains clinically unchanged. His abdomen is soft and mildly distended. He'll continue receive supportive care.
--- NOTE | 2022-02-08 10:22 | P.PN ---
Subjective Progress Note Date: 02/08/22 Principal diagnosis: 60-year-old male seen in consultation because of acute kidney injury. He has MSSA bacteremia likely from a fracture and wound right foot. Repeat blood cultures are negative. His creatinine continues to worsen and his urine output is minimal He is currently intubated and on small doses of levo fed. His CVP measurement is in the 8 range blood pressures still is low in the 90s to 100 with mean arterial pressure in the 50s. I have asked him to increase the levo fed for a mean arterial pressure of 65 His urine output is going down his creatinine going up. He is on 45% FiO2 chest x-ray is not suggestive of CHF but bilateral small effusions are noted. Computed tomography scan of the abdomen done day before yesterday, showed right ureteral stone without any hydronephrosis but also showed possible fistula in the perianal area. Thickening of the cecum and ascending colon with distention of the rectum with solid stools. Objective - Vital Signs Vital signs: Vital Signs Temp 98.1 F 02/08/22 08:00 Pulse 73 02/08/22 08:19 Resp 24 02/08/22 08:19 BP 111/53 02/08/22 06:00 Pulse Ox 98 02/08/22 08:00 FiO2 40 02/08/22 07:53 Intake & Output 02/07/22 02/08/22 02/08/22 18:59 06:59 18:59 Intake Total 9219.556 2168.987 172 Output Total 190 300 35 Balance 4992.257 0015.987 137 Weight 133.1 kg Intake: IV 706 1016 112 Cefepime 1 gm In Sodium 50 Chloride 0.9% 50 ml @ 12. 5 mls/hr IVPB Q12HR [facility] Rx#:[id number] Pressure bags 6 66 12 Sodium Chloride 0.9% 1, 600 600 100 000 ml @ 50 mls/hr IV . Q20H [facility] Rx#:[id number] levETIRAcetam IV 500 mg 100 200 In Sodium Chloride 0.9% 100 ml @ 400 mls/hr IVPB Q12HR [facility] Rx#:[id number] metroNIDAZOLE-NS PMX 500 100 mg In Saline 1 100ml.bag @ 100 mls/hr IVPB Q8HR [facility] Rx#:[id number] Intake, IV Titration 616.546 694.987 Amount Cefepime 1 gm In Sodium 100 Chloride 0.9% 50 ml @ 12. 5 mls/hr IVPB Q12HR [facility] Rx#:[id number] Norepinephrine 4 mg In 139.298 313.835 Sodium Chloride 0.9% 250 ml @ 0.05 MCG/KG/MIN 25. 908 mls/hr IV .Q9H49M [facility] Rx#:[id number] metroNIDAZOLE-NS PMX 500 200 mg In Saline 1 100ml.bag @ 100 mls/hr IVPB Q8HR [facility] Rx#:[id number] propofoL 1,000 mg In 177.248 381.152 Empty Bag 1 bag @ 5 MCG/ KG/MIN 4.08 mls/hr IV . Q24H [facility] Rx#:[id number] Tube Feeding 280 60 Other 80 60 Output: Urine 190 300 35 Other: Voiding Method Indwelling Catheter Indwelling Catheter ABP, PAP, CO, CI - Last Documented Arterial Blood Pressure 106/42 In the ICU intubated on 40% FiO2 sedated No facial asymmetry noted Lungs are clear to auscultation fair air entry bilaterally Heart sounds unremarkable for any murmur rub gallop Abdomen soft slightly distended Extremity exam was 1-2+ edema. Bandaged foot - Labs CBC & Chem 7: 02/08/22 04:47 02/08/22 04:47 Labs: Abnormal Lab Results - Last 24 Hours (Table) 02/08/22 02/08/22 02/08/22 Range/Units 04:47 04:47 04:47 WBC 23.6 H (3.8-10.6) k/uL RBC 4.12 L (4.30-5.90) m/uL Hgb 11.1 L (13.0-17.5) gm/dL Hct 38.1 L (39.0-53.0) % MCHC 29.1 L (31.0-37.0) g/dL RDW 16.4 H (11.5-15.5) % PT 29.6 H (9.0-12.0) sec INR 3.0 H (<1.2) ABG pH (7.35-7.45) ABG pCO2 (35-45) mmHg ABG HCO3 (21-25) mmol/L ABG Total CO2 (19-24) mmol/L Hemoglobin (13.0-17.5) gm/dL Chloride 113 H (98-107) mmol/L Carbon Dioxide 14 L (22-30) mmol/L BUN 54 H (9-20) mg/dL Creatinine 4.36 H (0.66-1.25) mg/dL Glucose 101 H (74-99) mg/dL Calcium 7.2 L (8.4-10.2) mg/dL 02/08/22 Range/Units 05:40 WBC (3.8-10.6) k/uL RBC (4.30-5.90) m/uL Hgb (13.0-17.5) gm/dL Hct (39.0-53.0) % MCHC (31.0-37.0) g/dL RDW (11.5-15.5) % PT (9.0-12.0) sec INR (<1.2) ABG pH 7.28 L (7.35-7.45) ABG pCO2 34 L (35-45) mmHg ABG HCO3 16 L (21-25) mmol/L ABG Total CO2 17 L (19-24) mmol/L Hemoglobin 11.4 L (13.0-17.5) gm/dL Chloride (98-107) mmol/L Carbon Dioxide (22-30) mmol/L BUN (9-20) mg/dL Creatinine (0.66-1.25) mg/dL Glucose (74-99) mg/dL Calcium (8.4-10.2) mg/dL Microbiology - Last 24 Hours (Table) 02/05/22 23:55 Gram Stain - Preliminary Sputum Sputum Culture - Preliminary Gram Neg Bacilli Lynda albicans 01/31/22 18:55 Blood Culture Gram Stain - Final Blood Blood Culture - Final Staphylococcus aureus Staphylococcus epidermidis 02/04/22 09:39 Blood Culture - Preliminary Blood No Growth after 72 hours 02/04/22 09:39 Blood Culture - Preliminary Blood No Growth after 72 hours Assessment and Plan Assessment: Impression 1. Acute kidney injury from sepsis with gram-positive bacteremia MSSA, hypotensive. Creatinine worsening urine output 490 mL only 2. Ventilator dependent respiratory failure, on 45% FiO2 3. Septic shock Gram-positive bacteremia, source is the fourth most likely, On small doses of Levophed, hypotensive 4. Right renal calculus nonobstructing in the ureter by computed tomography scan 5. Loaded colon on computed tomography scan 6. 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 With preparing for dialysis. No urgent need for today and watch until tomorrow. 2. We'll consult Dr. Thibodeaux for a Martin catheter 3. Adjust levo fed and titrate for MAP of 65 4. Monitor labs
[2022-02-08] MEDS: METOPROLOL TARTRATE 25 MG TAB PO SCH ×2 (10:24→21:23)
[2022-02-08] MEDS: MORPHINE SULFATE ER 15 MG TABLET PO SCH (11:27)
[2022-02-08 11:47] LABS: Glucose,Whole Blood 100 mg/dL (70-110)
--- NOTE | 2022-02-08 11:49 | P.PN ---
Subjective Progress Note Date: 02/08/22 Principal diagnosis: Multiple right-sided rib fractures and a right sided pulmonary contusion with compression fractures of lumbar spine This is a extremely debilitated 61-year-old male patient who is known to monitor milligrams and comorbidities and I was asked to evaluate this patient because of a fall and limited hemoptysis. The patient is known to have a combination of i ssues including diabetes mellitus and diabetic peripheral neuropathy and the patient has had previous episodes of falls and he has issues with chronic atrial flutter maintained on long-term anticoagulation with warfarin. He is morbidly obese. He has hypertension and hyperlipidemia as comorbid conditions along with chronic kidney disease. He is morbidly obese. He has history of COPD and is a chronic smoker. He comes in to the hospital after he had a fall at home. He was the bathroom and he slept and he landed on his left chest. Here in the hospital, the patient was found to be Coumadin toxic and his INR was above 10. He did have some limited hemoptysis and coffee-ground emesis without any melanotic stools. No abdominal pain. He was noted to have a large ulcer over the right ankle/malleolus area which is a chronic wound. Immediately the patient was given vitamin K. This computed tomography scan of the chest shows some right lateral eighth through 10th rib fractures with trace amount of right- sided pleural effusion and right basilar atelectasis related to underlying pulmonary contusion. No evidence of any pneumothorax. Some limited patchy airspace disease in the left upper lobe probably inflammatory in the same time the patient had dilated pulmonary arteries indicating possibility of pulmonary hypertension and a fluid and gas-filled distended stomach. I noted the patient has not had a CAT scan of the brain and a CAT scan was done that showed no acute intracranial process. There was a remote left occipital lobe injury along with some nonspecific white matter changes secondary to chronic microangiopathy. This computed tomography scan of the lumbar spine showed acute anterior wedge compression deformity of L1 vertebral body with a 30% loss in height along with multilevel degenerative disc changes and a 7 mm In the right pelvis. Patient was already seen by general surgery and orthopedic surgery. Lumbar spine x-ray that was done on 2021 showed no acute fracture. The patient was also seen by vascular surgery for a right lateral foot wound and this is a stage II wound 8.5 x 4 cm in size. Debridement was done by vascular surgery. On 02/02/2022, the patient is confused which is unchanged compared to yesterday. CAT scan of the brain was done yesterday showed no acute abnormalities. He did not have any further episodes of hemoptysis. His coagulopathy was reversed. I noted some coffee-ground emesis yesterday and subsequently developed some ab dominal distention and ileus was suspected. NG tube was inserted. On multiple occasions, he pulled out his NG tube. This morning, NG tube is in place and the total amount of output is in order of 25 mL since morning and he does have some old retained coffee-ground material in the canister since yesterday in the order of 200 mL. Abdomen is soft. He is laying comfortably in bed. He is off anti coagulation for now. He is an IV fluids and currently receiving 0.9 at a rate of 100 mL an hour. He is also on a Cardizem drip for atrial flutter with RVR. His heart rates currently is in order of 130 beats per minute. He is still tachycardic. The Cardizem rate accordingly was increased and is being adjusted and titrated by cardiology.The white cell count is at 17.7 hemoglobin 15.3 and a platelet count of 166, the patient also has a sodium level of 136, potassium is being replaced is currently down to 3 and a BUN is at 29 with a creatinine of 1.62. Serum bicarbs at 23. Correlation profile is normalized. The patient only on Lovenox for DVT prophylaxis. Reevaluated today on 02/03/22, patient remains in the ICU, presently on 2 L nasal cannula, patient remains unresponsive to any stimuli including deep painful stimuli. Patient remains obtunded, he has a Glascow coma score of 3, speech and language could not be assessed. Patient is having multifocal myoclonic twitching. Mostly the facial region. Seen by neurology this morning, felt to have acute metabolic encephalopathy, EEG did not reveal any evidence of epileptiform activity. EEG was suggestive of metabolic encephalopathy patient was kept on Keppra for now. Suggesting MRI of the brain to rule out CVA. And recommending that the patient goes back on anticoagulation for atrial fibrillation when medically cleared. Pulmonary-[place], the patient is basically the same, he does have fractures but does not seem to be compromising his oxygenation. Patient is on 2 L nasal cannula, and O2 saturation is in the 90s. He is on Cardizem at 15 mg per hour for his atrial fibrillation. 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 Blood cultures have been positive for presumptive staph aureus. These have been positive since admission. Cultures from right ankle 1 showed Staphylococcus aureus and strep agalactiae group B, patient is being followed by infectious disease on the case Reevaluated today on 02/04/22, patient remains in the ICU, he is on 2 L nasal cannula. Patient remains obtunded. Continues to have positive blood cultures, staph aureus and staph epidermidis. Remains on antibiotics as per infectious disease on the case. Continues to have a Glascow coma score of 3. Patient continues to have multiple myoclonic twitching in the face. He is not waking up even with deep painful stimuli. Patient remains very encephalopathic. Not much of a change in the last 24 hours. Repeat blood cultures today are pending but he had positive blood cultures from 01/31 and from 02/01. Patient may have to be considered for possible TIFFANI if his blood cultures remain positive. His right foot wound culture is also positive for staph aureus and for Streptococcus group B. Patient is being followed by many consultants including cardiology and infectious disease and neurology. His neurological status seems to be quite concerning. WBC count today is 16.2 hemoglobin is 12.4 7 normal BUN is 36 creatinine 1.84 Reevaluated today on 02/05/22, patient's clinical status. Deteriorated last night, patient required intubation and mechanical ventilation. Patient had ABG earlier this morning, and his pO2 was 137 pCO2 85 pH of 7.12 and patient was noted to remain obtunded. I was notified about the ABG, I recommended immediate intubation of the patient and follow-up ABG on 50% showed a pO2 of 111 pCO2 of 60 and pH of 7.24. Today he was noted to be on assist control rate of 2010 volume 500 FiO2 50% and PEEP of 5 hence after reviewing the ABG I changed his rate up to 24 kept him on 500 tidal volume cut down the FiO2 to 45% and The PEEP at 5. Repeat ABG is pending. Patient is requiring amiodarone for his atrial fibrillation with RVR he is on 0.5 mg/m patient is also on propofol at 10 mcg/kg/m he was on cefazolin for his MSSA infection and possible blood cultures. He is also on 0.9 normal saline at 100 mL per hour. WBC count is 19.1 hemoglobin is 11.5 INR is 1.8. Basic metabolic profile is normal however his BU N is 37 and creatinine 2.38. Chest x-ray today at 11:40 showed right lower lobe atelectasis, strongly doubt pneumonia. Patient was reevaluated today on 02/06/22, remains in the ICU, intubated and mech anically ventilated. Patient is sedated, his ventilator settings are assist control rate of 24 tidal volume 500 FiO2 45% and PEEP of 5. ABG showed a pO2 of 85 pCO2 37 pH of 7.37 patient had worsening urine output and worsening renal status overnight, received almost 4 L of fluids, continue to have low urine output and this morning he received 80 mg of Lasix IV push. CVP continues to read the low below 7. His endotracheal tube was noted to be sitting high in the trachea and it will be advanced about 3 cm. Patient remains on propofol at 40 mcg/kg/m IV fluids/normal saline at 100 mL per hour norepinephrine at 0.02 mcg/kg/m today I recommended a nephrology consultation and the patient will be undergoing CT of the abdomen for ileus. The CT of the abdomen showed mild to moderate circumferential wall thickening of the cecum and ascending colon possible nonspecific infectious or inflammatory colitis. There was also distention of the rectum up to 7.5 cm with solid stool. Patient is developing fecal impaction. There is also the possibility of perianal fistula noted on the CT of the abdomen and pelvis. Blood cultures from 97 and 98 are negative so far. Previous blood cultures from 01/31 hence 02/01 were positive for staph aureus Patient was reevaluated today on 02/07/22, patient remains in the ICU, intubated and mechanically ventilated. Patient is on assist control rate of 24 tidal volume 500 FiO2 45% PEEP of 5 ABG showed a pO2 of 79 pCO2 36 pH of 7.33. Continues to have very low urine output, renal functioning seems to be getting worse, and nephrology as on consultation, today I cut down his IV fluid to 50 mL/h and I gave him a dose of Lasix 80 mg IV push. Again his urine output is extremely marginal. Patient is off norepinephrine today blood pressure seems to be better controlled. He is on propofol at 30 mcg/kg/m IV fluid cut down to 50 mL/h and he is on tube feeding. No changes were made today for his ventilator settings chest x-ray continues to show small bilateral patchy airspace disease, and possibly some component of pleural effusion is noted bilaterally. WBC count is 18.5 hemoglobin 11.6. INR is 2.2 electrolytes are normal bicarb is 18 BUN is 49, and 3.73 creatinine up from yesterday Patient was reevaluated today on , remains in the ICU intubated mechanically ventilated, sedated, his ventilator settings are assist control rate 24 tidal volume 500 FiO2 40% PEEP of 5 ABG showed a pO2 of 95 pCO2 34 pH of 7.28, reflecting a mild metabolic acidosis most likely secondary to his worsening renal failure his creatinine is up to 4.36 today. Patient does respond to diuretics, however I believe the patient is clinically dry, and I'm recommending fluid boluses today, 500 mL of saline intermittently patient has a good urine output, especially after Lasix. Otherwise his urine output is poor. CVP remains low, chest x-ray is showing improvement in his fluid overload, hence I'm recommending fluid boluses to be given today. Patient remains on antibiotics for his MSSA infection he is on cefepime is also on Flagyl. Today I'm recommending that the patient goes off propofol and to be able to get adequate mental assessment. He is requiring to small dose of norepinephrine 0.05 mcg/kg/m, and I'm hoping with fluid boluses we could potentially discontinue norepinephrine today. Again chest x-ray is showing slight improvement. And I plan to stop propofol today. Patient was seen by nephrology and considering starting hemodialysis in the next 24 or 48 hours. They are consulting vascular surgery for dialysis catheter placement. WBC count today is 23.6 hemoglobin is 11.1 INR is 3.0 electrolytes are normal except for low bicarb of 14, BUN is 54 creatinine 4.36. Objective - Vital Signs Vital signs: Vital Signs Temp 98.1 F 02/08/22 08:00 Pulse 72 02/08/22 11:00 Resp 24 02/08/22 11:00 BP 100/46 02/08/22 11:00 Pulse Ox 96 02/08/22 11:00 FiO2 40 02/08/22 11:00 Intake & Output 02/07/22 02/08/22 02/08/22 18:59 06:59 18:59 Intake Total 2345.833 8601.987 862.132 Output Total 190 300 65 Balance 7691.267 9629.987 797.132 Weight 133.1 kg Intake: IV 706 1016 480 Cefepime 1 gm In Sodium 50 100 Chloride 0.9% 50 ml @ 12. 5 mls/hr IVPB Q12HR [facility] Rx#:[id number] Pressure bags 6 66 30 Sodium Chloride 0.9% 1, 600 600 250 000 ml @ 50 mls/hr IV . Q20H [facility] Rx#:[id number] levETIRAcetam IV 500 mg 100 200 In Sodium Chloride 0.9% 100 ml @ 400 mls/hr IVPB Q12HR [facility] Rx#:[id number] metroNIDAZOLE-NS PMX 500 100 100 mg In Saline 1 100ml.bag @ 100 mls/hr IVPB Q8HR [facility] Rx#:[id number] Intake, IV Titration 616.546 694.987 232.132 Amount Cefepime 1 gm In Sodium 100 Chloride 0.9% 50 ml @ 12. 5 mls/hr IVPB Q12HR [facility] Rx#:[id number] Norepinephrine 4 mg In 139.298 313.835 132.132 Sodium Chloride 0.9% 250 ml @ 0.05 MCG/KG/MIN 25. 908 mls/hr IV .Q9H49M [facility] Rx#:[id number] metroNIDAZOLE-NS PMX 500 200 mg In Saline 1 100ml.bag @ 100 mls/hr IVPB Q8HR [facility] Rx#:[id number] propofoL 1,000 mg In 177.248 381.152 100 Empty Bag 1 bag @ 5 MCG/ KG/MIN 4.08 mls/hr IV . Q24H [facility] Rx#:[id number] Tube Feeding 280 150 Other 80 60 Output: Urine 190 300 65 Other: Voiding Method Indwelling Catheter Indwelling Catheter ABP, PAP, CO, CI - Last Documented Arterial Blood Pressure 114/44 - Exam GENERAL: Revealed a 61-year-old white male, intubated, mechanically ventilated, sedated. On propofol. Back on norepinephrine today at 0.05 mcg/kg/m Head atraumatic, normocephalic. EYES: Pupils equal. Conjunctiva normal. HEENT: External appearance of nose and ears normal, oral cavity grossly normal. Right subclavian central line is noted to be intact NECK: JVD not raised; masses not palpable. HEART: Normal S1 and S2, no S3 gallop, irregular rhythm. LUNGS: Diminished breath sounds and crackles at the bases. ABDOMEN: Soft, distended, no megaly no rebound no guarding PSYCH: Cannot be assessed, sedated with propofol. Patient was obtunded to begin with before intubation. DERMATOLOGICAL: Large wound around the lateral malleolus right foot Gangrene Changes, wrapped with sterile dressing. MUSCULOSKELETAL:No Clubbing/cyanosis;muscles-grossly intact, NEUROLOGICAL: Unable to assess. - Labs CBC & Chem 7: 02/08/22 04:47 02/08/22 04:47 Labs: Abnormal Lab Results - Last 24 Hours (Table) 02/08/22 02/08/22 02/08/22 Range/Units 04:47 04:47 04:47 WBC 23.6 H (3.8-10.6) k/uL RBC 4.12 L (4.30-5.90) m/uL Hgb 11.1 L (13.0-17.5) gm/dL Hct 38.1 L (39.0-53.0) % MCHC 29.1 L (31.0-37.0) g/dL RDW 16.4 H (11.5-15.5) % PT 29.6 H (9.0-12.0) sec INR 3.0 H (<1.2) ABG pH (7.35-7.45) ABG pCO2 (35-45) mmHg ABG HCO3 (21-25) mmol/L ABG Total CO2 (19-24) mmol/L Hemoglobin (13.0-17.5) gm/dL Chloride 113 H (98-107) mmol/L Carbon Dioxide 14 L (22-30) mmol/L BUN 54 H (9-20) mg/dL Creatinine 4.36 H (0.66-1.25) mg/dL Glucose 101 H (74-99) mg/dL Calcium 7.2 L (8.4-10.2) mg/dL 02/08/22 Range/Units 05:40 WBC (3.8-10.6) k/uL RBC (4.30-5.90) m/uL Hgb (13.0-17.5) gm/dL Hct (39.0-53.0) % MCHC (31.0-37.0) g/dL RDW (11.5-15.5) % PT (9.0-12.0) sec INR (<1.2) ABG pH 7.28 L (7.35-7.45) ABG pCO2 34 L (35-45) mmHg ABG HCO3 16 L (21-25) mmol/L ABG Total CO2 17 L (19-24) mmol/L Hemoglobin 11.4 L (13.0-17.5) gm/dL Chloride (98-107) mmol/L Carbon Dioxide (22-30) mmol/L BUN (9-20) mg/dL Creatinine (0.66-1.25) mg/dL Glucose (74-99) mg/dL Calcium (8.4-10.2) mg/dL Microbiology - Last 24 Hours (Table) 02/05/22 23:55 Gram Stain - Preliminary Sputum Sputum Culture - Preliminary Gram Neg Bacilli Lynda albicans 01/31/22 18:55 Blood Culture Gram Stain - Final Blood Blood Culture - Final Staphylococcus aureus Staphylococcus epidermidis 02/04/22 09:39 Blood Culture - Preliminary Blood No Growth after 72 hours 02/04/22 09:39 Blood Culture - Preliminary Blood No Growth after 72 hours Assessment and Plan Assessment: Impression: Acute hypercapnic respiratory failure Acute metabolic encephalopathy Right sided rib fractures, traumatic, secondary to fall, Right sided pulmonary contusion. Anterior wedge compression fracture of L1 Hemoptysis secondary to contusion and exacerbated by Coumadin coagulopathy Underlying COPD and chronic smoking Coumadin toxicity with INR above 10 on admission, recovered History of frequent falls. Metabolic encephalopathy, acute, being addressed by neurology on the case. Chronic atrial fibrillation. Acute on Chronic kidney disease stage III. Stage II right ankle wound requiring debridement and positive for MSSA/staph aureus and strep agalactiae Positive bacteremia, however his blood cultures have been negative from 02/04 and 02/05. Diabetic peripheral neuropathy History of Nephrolithiasis Nonspecific colitis Perianal fistula Recommendation: Continue ventilatory support, patient is nowhere near weaning he may inpatient require tracheostomy and PEG tube placement Hold sedation and assessment of mental status. Continue antibiotics for his ongoing bacteremia, MSSA bacteremia, patient is on cefepime and Flagyl as per ID on the case. Trial of fluid boluses today since his CVP remains running low. Continue hemodynamic monitoring, and use norepinephrine if necessary. Hope to stop norepinephrine if patient's response to fluid boluses Continue antibiotics for his gram-positive bacteremia cultures on the last 3 days have been negative Nutritional support/enteral feeding, to be continued. Continue GI and DVT prophylaxis Continue amiodarone. Continue anticoagulation therapy, INR is therapeutic, monitor INR on a daily basis Prognosis remains poor and guarded, patient may require tracheostomy and PEG tube placement and he may also require hemodialysis, as a matter of fact vascular surgery was consulted for catheter placement for dialysis Critical care time is over 30 minutes We will continue to follow. Time with Patient: Greater than 30
[2022-02-08] MEDS: MORPHINE ORAL SOLN 10 MG/5 ML CUP PO SCH (12:33)
[2022-02-08] MEDS: SODIUM BICARBONATE TAB 650 MG TAB PO SCH ×3 (12:43→21:32)
[2022-02-08] MEDS: COLLAGENASE 250 UNIT/GM OINTMENT 30 GM TUBE TOPICAL SCH (13:01)
--- NOTE | 2022-02-08 13:54 | P.PN ---
Subjective HISTORY OF PRESENTING ILLNESS Patient is a 61-year-old gentleman admitted to the hospital with atrial fibrillation with rapid ventricular rate in coagulopathy. Patient is seen today resting comfortably in bed he remains intubated. He continues on Coumadin for anticoagulation INR was therapeutic today at 2.1. Patient is sinus rhythm on telemetry and heart rate is well-controlled in the 70s. He continues on Levophed for blood pressure control. blood cultures are negative. At this time he does not require a TIFFANI. If further blood cultures become positive patient will need a TIFFANI to rule out vegetation. She was tolerating amiodarone will continue. 02/07 Patient seen and examined. Patient being weaned on sedation and able to make eye contact and somewhat more alert however heart rates going up in the 120s when sedation weaned. Patient still requiring low dose of norepinephrine currently 0.02. Nephrology evaluated patient and giving patient 1 L today. CVP noted to be 8. Creatinine increased up to 3.7 today area remains on ventilator with FiO2 40% and a PEEP of 5. Patient's metoprolol 25 twice a day was held secondary to borderline blood pressures on norepinephrine. 02/08 Patient seen and examined. Patient remains intubated and sedated on ventilator. Patient on 40% FiO2 and a PEEP of 5. Have needed to increase norepinephrine up to 0.08. Kidney function worsening with creatinine 4.3. Receiving tube feeds at 30 mL per hour as well as normal saline at 50 mL per hour. PHYSICAL EXAMINATION Vital signs reviewed. CONSTITUTIONAL: No apparent distress, chronically ill appeairng, intubated and sedated HEENT: Head is normocephalic. Pupils are equal, round. Sclerae anicteric. Mucous membranes of the mouth are moist. No JVD. No carotid bruit. CHEST EXAMINATION: Bilateral wheeze HEART EXAMINATION: Irregularly irregular rate and rhythm. S1, S2 heard. No murmurs, gallops or rub. ABDOMEN: Soft, nontender. Positive bowel sounds. EXTREMITIES: 2+ peripheral pulses, 1+ lower extremity edema and no calf tenderness. NEUROLOGIC EXAMINATION: Patient is sedated ASSESSMENT 1. Acute on chronic respiratory failure 2. Metabolic encephalopathy status post intubation 3. Septic shock 4. Staph aureus bacteremia 2 of 2, repeat third and fourth no growth 5. Right-sided rib fractures secondary to fall 6. Persistent atrial fibrillation currently mild RVR 7. Diabetes mellitus type 2 8. Nonhealing ulcers may be source of staph aureus bacteremia 9. Acute on chronic kidney disease 10. Acute on chronic diastolic heart failure PLAN Patient's echo shows preserved EF. Patient with bacteremia with source possibly related to his nonhealing ulcers. If patient continues to have positive bacteremia patient will require TIFFANI. Patient currently A. fib with CVR on amiodarone and metoprolol was held today for hypotension. Previous RVR likely related to weaning sedation. Continue supportive care. Appears to have some volume overload and possible hemodialysis tomorrow. Further recommendations to follow. Prognosis guarded. Objective - Vital Signs Vital signs: Vital Signs Temp 98.8 F 02/08/22 12:00 Pulse 72 02/08/22 13:00 Resp 24 02/08/22 13:00 BP 98/51 02/08/22 13:00 Pulse Ox 96 02/08/22 13:00 FiO2 40 02/08/22 13:00 Intake & Output 02/07/22 02/08/22 02/08/22 18:59 06:59 18:59 Intake Total 0104.978 2042.987 1298.028 Output Total 190 300 100 Balance 5569.996 7837.987 1198.028 Weight 133.1 kg Intake: IV 706 1016 612 Cefepime 1 gm In Sodium 50 100 Chloride 0.9% 50 ml @ 12. 5 mls/hr IVPB Q12HR [facility] Rx#:[id number] Pressure bags 6 66 42 Sodium Chloride 0.9% 1, 600 600 370 000 ml @ 50 mls/hr IV . Q20H [facility] Rx#:[id number] levETIRAcetam IV 500 mg 100 200 In Sodium Chloride 0.9% 100 ml @ 400 mls/hr IVPB Q12HR [facility] Rx#:[id number] metroNIDAZOLE-NS PMX 500 100 100 mg In Saline 1 100ml.bag @ 100 mls/hr IVPB Q8HR [facility] Rx#:[id number] Intake, IV Titration 616.546 694.987 381.028 Amount Cefepime 1 gm In Sodium 100 Chloride 0.9% 50 ml @ 12. 5 mls/hr IVPB Q12HR [facility] Rx#:[id number] Norepinephrine 4 mg In 139.298 313.835 183.788 Sodium Chloride 0.9% 250 ml @ 0.05 MCG/KG/MIN 25. 908 mls/hr IV .Q9H49M [facility] Rx#:[id number] metroNIDAZOLE-NS PMX 500 200 mg In Saline 1 100ml.bag @ 100 mls/hr IVPB Q8HR [facility] Rx#:[id number] propofoL 1,000 mg In 177.248 381.152 197.240 Empty Bag 1 bag @ 5 MCG/ KG/MIN 4.08 mls/hr IV . Q24H [facility] Rx#:[id number] Tube Feeding 280 210 Other 80 60 95 Output: Urine 190 300 100 Other: Voiding Method Indwelling Catheter Indwelling Catheter Indwelling Catheter ABP, PAP, CO, CI - Last Documented Arterial Blood Pressure 114/42 - Labs CBC & Chem 7: 02/08/22 04:47 02/08/22 04:47 Labs: Abnormal Lab Results - Last 24 Hours (Table) 02/08/22 02/08/22 02/08/22 Range/Units 04:47 04:47 04:47 WBC 23.6 H (3.8-10.6) k/uL RBC 4.12 L (4.30-5.90) m/uL Hgb 11.1 L (13.0-17.5) gm/dL Hct 38.1 L (39.0-53.0) % MCHC 29.1 L (31.0-37.0) g/dL RDW 16.4 H (11.5-15.5) % PT 29.6 H (9.0-12.0) sec INR 3.0 H (<1.2) ABG pH (7.35-7.45) ABG pCO2 (35-45) mmHg ABG HCO3 (21-25) mmol/L ABG Total CO2 (19-24) mmol/L Hemoglobin (13.0-17.5) gm/dL Chloride 113 H (98-107) mmol/L Carbon Dioxide 14 L (22-30) mmol/L BUN 54 H (9-20) mg/dL Creatinine 4.36 H (0.66-1.25) mg/dL Glucose 101 H (74-99) mg/dL Calcium 7.2 L (8.4-10.2) mg/dL 02/08/22 Range/Units 05:40 WBC (3.8-10.6) k/uL RBC (4.30-5.90) m/uL Hgb (13.0-17.5) gm/dL Hct (39.0-53.0) % MCHC (31.0-37.0) g/dL RDW (11.5-15.5) % PT (9.0-12.0) sec INR (<1.2) ABG pH 7.28 L (7.35-7.45) ABG pCO2 34 L (35-45) mmHg ABG HCO3 16 L (21-25) mmol/L ABG Total CO2 17 L (19-24) mmol/L Hemoglobin 11.4 L (13.0-17.5) gm/dL Chloride (98-107) mmol/L Carbon Dioxide (22-30) mmol/L BUN (9-20) mg/dL Creatinine (0.66-1.25) mg/dL Glucose (74-99) mg/dL Calcium (8.4-10.2) mg/dL Microbiology - Last 24 Hours (Table) 02/04/22 09:39 Blood Culture - Preliminary Blood No Growth after 96 hours 02/04/22 09:39 Blood Culture - Preliminary Blood No Growth after 96 hours 02/05/22 23:55 Gram Stain - Preliminary Sputum Sputum Culture - Preliminary Gram Neg Bacilli Lynda albicans 01/31/22 18:55 Blood Culture Gram Stain - Final Blood Blood Culture - Final Staphylococcus aureus Staphylococcus epidermidis
[2022-02-08] MEDS ORDERED: SODIUM CHLORIDE 0.9% 500 ML 500 ML IV ONE (14:14)
[2022-02-08] MEDS ORDERED: FUROSEMIDE 10 MG/ML 10 ML VIAL IV STA (15:53)
[2022-02-08 17:44] LABS: Glucose,Whole Blood 98 mg/dL (70-110)
[2022-02-08] MEDS ORDERED: WARFARIN 0.5 MG TAB PO ONE (18:00)
[2022-02-08] MEDS: INSULIN DETEMIR (LEVEMIR) 100 UNIT/ML SYR SQ SCH (21:23)
--- NOTE | 2022-02-08 23:26 | P.PN ---
Subjective Progress Note Date: 02/07/22 Principal diagnosis: Right foot infected pressure ulcer and bacteremia Patient is a 61-year-old male presented to the hospital for evaluation of fall patient also noticed to have a wound on the right lateral foot with some necrotic edges which has been debridement by vascular surgery on 01/31/2022.Patient has been transthoracic because of significant mental status changes, The patient ended up getting intubated last night On today's evaluation that is 02/07/2022, The patient remains to be afebrile, the patient remains to be on the vent , FiO2 is down to 40%, no significant purulent secretion through the ET , diarrhea or any other changes reported by the nursing staff Objective - Vital Signs Vital signs: Vital Signs Temp 98.6 F 02/07/22 04:00 Pulse 104 H 02/07/22 15:30 Resp 25 H 02/07/22 15:30 BP 112/58 02/07/22 15:30 Pulse Ox 94 L 02/07/22 15:30 FiO2 40 02/07/22 15:12 Intake & Output 02/06/22 02/07/22 02/07/22 18:59 06:59 18:59 Intake Total 3989.564 2048.391 943.829 Output Total 385 335 145 Balance 3604.564 1713.391 798.829 Weight 133.1 kg 133.1 kg Intake: IV 3255 1416 556 Cefepime 1 gm In Sodium 50 Chloride 0.9% 50 ml @ 12. 5 mls/hr IVPB Q12HR [facility] Rx#:[id number] Pressure bags 66 6 Sodium Chloride 0.9% 1, 2105 1200 450 000 ml @ 50 mls/hr IV . Q20H [facility] Rx#:[id number] Sodium Chloride 0.9% 1, 1000 000 ml @ 999 mls/hr IV . Q1H1M [facility] Rx#:[id number] ceFAZolin 2 gm In Sodium 50 Chloride 0.9% 50 ml @ 100 mls/hr IVPB Q8HR [facility] Rx# :[id number] levETIRAcetam IV 500 mg 100 100 100 In Sodium Chloride 0.9% 100 ml @ 400 mls/hr IVPB Q12HR [facility] Rx#:[id number] Intake, IV Titration 734.564 572.391 387.829 Amount Cefepime 1 gm In Sodium 100 Chloride 0.9% 50 ml @ 12. 5 mls/hr IVPB Q12HR [facility] Rx#:[id number] Cefepime 2 gm In Sodium 100 Chloride 0.9% 100 ml @ 25 mls/hr IVPB Q12H [facility] Rx# :[id number] Norepinephrine 4 mg In 174.532 172.391 87.829 Sodium Chloride 0.9% 250 ml @ 0.05 MCG/KG/MIN 25. 908 mls/hr IV .Q9H49M [facility] Rx#:[id number] metroNIDAZOLE-NS PMX 500 100 100 mg In Saline 1 100ml.bag @ 100 mls/hr IVPB Q8HR [facility] Rx#:[id number] propofoL 1,000 mg In 360.032 400 100 Empty Bag 1 bag @ 5 MCG/ KG/MIN 4.08 mls/hr IV . Q24H [facility] Rx#:[id number] Other 60 Output: Urine 385 335 145 Other: Voiding Method Indwelling Catheter Indwelling Catheter Indwelling Catheter # Bowel Movements 1 ABP, PAP, CO, CI - Last Documented Arterial Blood Pressure 111/52 - Exam GENERAL DESCRIPTION: Middle-aged male intubated on the vent. LUNGS: Unlabored breathing. Decreased breath sound at the base HEART: S1, S2, regular rate and rhythm. No loud murmur ABDOMEN: Soft, no tenderness , guarding or rigidity, no organomegaly EXTREMITIES: Right foot wound is currently dressed no drainage on the dressing - Labs CBC & Chem 7: 02/08/22 04:47 02/08/22 04:47 Labs: Abnormal Lab Results - Last 24 Hours (Table) 02/06/22 02/06/22 02/06/22 Range/Units 18:00 18:19 18:32 WBC (3.8-10.6) k/uL RBC (4.30-5.90) m/uL Hgb (13.0-17.5) gm/dL Hct (39.0-53.0) % MCHC (31.0-37.0) g/dL RDW (11.5-15.5) % PT (9.0-12.0) sec INR (<1.2) ABG pH (7.35-7.45) ABG pO2 (83-108) mmHg ABG HCO3 (21-25) mmol/L Hemoglobin (13.0-17.5) gm/dL Potassium 3.1 L (3.5-5.1) mmol/L Chloride (98-107) mmol/L Carbon Dioxide (22-30) mmol/L BUN (9-20) mg/dL Creatinine (0.66-1.25) mg/dL POC Glucose (mg/dL) 66 L 160 H (70-110) mg/dL Calcium (8.4-10.2) mg/dL 02/07/22 02/07/22 02/07/22 Range/Units 04:55 04:55 04:55 WBC 18.5 H (3.8-10.6) k/uL RBC 4.16 L (4.30-5.90) m/uL Hgb 11.6 L (13.0-17.5) gm/dL Hct 38.3 L (39.0-53.0) % MCHC 30.4 L (31.0-37.0) g/dL RDW 16.2 H (11.5-15.5) % PT 22.4 H (9.0-12.0) sec INR 2.2 H (<1.2) ABG pH (7.35-7.45) ABG pO2 (83-108) mmHg ABG HCO3 (21-25) mmol/L Hemoglobin (13.0-17.5) gm/dL Potassium (3.5-5.1) mmol/L Chloride 113 H (98-107) mmol/L Carbon Dioxide 18 L (22-30) mmol/L BUN 49 H (9-20) mg/dL Creatinine 3.73 H (0.66-1.25) mg/dL POC Glucose (mg/dL) (70-110) mg/dL Calcium 7.3 L (8.4-10.2) mg/dL 02/07/22 Range/Units 05:20 WBC (3.8-10.6) k/uL RBC (4.30-5.90) m/uL Hgb (13.0-17.5) gm/dL Hct (39.0-53.0) % MCHC (31.0-37.0) g/dL RDW (11.5-15.5) % PT (9.0-12.0) sec INR (<1.2) ABG pH 7.33 L (7.35-7.45) ABG pO2 79 L (83-108) mmHg ABG HCO3 19 L (21-25) mmol/L Hemoglobin 11.4 L (13.0-17.5) gm/dL Potassium (3.5-5.1) mmol/L Chloride (98-107) mmol/L Carbon Dioxide (22-30) mmol/L BUN (9-20) mg/dL Creatinine (0.66-1.25) mg/dL POC Glucose (mg/dL) (70-110) mg/dL Calcium (8.4-10.2) mg/dL Microbiology - Last 24 Hours (Table) 02/04/22 09:39 Blood Culture - Preliminary Blood No Growth after 72 hours 02/04/22 09:39 Blood Culture - Preliminary Blood No Growth after 72 hours 02/05/22 23:55 Gram Stain - Preliminary Sputum Sputum Culture - Preliminary Assessment and Plan (1) Cellulitis Current Visit: Yes Status: Acute Code(s): L03.90 - CELLULITIS, UNSPECIFIED SNOMED Code(s): 028195791 Plan: 1patient with right foot unstageable pressure ulcer with surrounding necrotic area and cellulitis x-rays do not show any bony changes likely from gram- positive skin caleb and less likely gram-negative pathogen, patient is status post vascular surgery evaluation and debridement and deep cultureWhich has been finalized with strep and MSSA. 2-patient with MSSA bacteremia source is likely right foot infected pressure ulcer, Repeat blood culture has been negative 3Patient did have significant abnormality seen on the CT obtained by surgery with concern for possible fecal impaction and some inflammation of the colon and possible fistula. 4- patient to continue with cefepime and Flagyl to cover for intra-abdominal pathogens and monitor clinical course closely Time with Patient: Less than 30
--- NOTE | 2022-02-08 23:28 | P.PN ---
Subjective Progress Note Date: 02/08/22 Principal diagnosis: Right foot infected pressure ulcer and bacteremia Patient is a 61-year-old male presented to the hospital for evaluation of fall patient also noticed to have a wound on the right lateral foot with some necrotic edges which has been debridement by vascular surgery on 01/31/2022.Patient has been transthoracic because of significant mental status changes, The patient ended up getting intubated last night On today's evaluation that is 02/08/2022, The patient continues to be afebrile, the patient remains to be intubated on the vent and FiO2 stable at 40%, no significant purulent secretion through the ET diarrhea or any the changes reported by the nursing staff Objective - Vital Signs Vital signs: Vital Signs Temp 98.8 F 02/08/22 12:00 Pulse 72 02/08/22 13:00 Resp 24 02/08/22 13:00 BP 98/51 02/08/22 13:00 Pulse Ox 96 02/08/22 13:00 FiO2 40 02/08/22 13:00 Intake & Output 02/07/22 02/08/22 02/08/22 18:59 06:59 18:59 Intake Total 0970.208 4997.987 1298.028 Output Total 190 300 100 Balance 3070.933 9049.987 1198.028 Weight 133.1 kg Intake: IV 706 1016 612 Cefepime 1 gm In Sodium 50 100 Chloride 0.9% 50 ml @ 12. 5 mls/hr IVPB Q12HR [facility] Rx#:[id number] Pressure bags 6 66 42 Sodium Chloride 0.9% 1, 600 600 370 000 ml @ 50 mls/hr IV . Q20H [facility] Rx#:[id number] levETIRAcetam IV 500 mg 100 200 In Sodium Chloride 0.9% 100 ml @ 400 mls/hr IVPB Q12HR [facility] Rx#:[id number] metroNIDAZOLE-NS PMX 500 100 100 mg In Saline 1 100ml.bag @ 100 mls/hr IVPB Q8HR [facility] Rx#:[id number] Intake, IV Titration 616.546 694.987 381.028 Amount Cefepime 1 gm In Sodium 100 Chloride 0.9% 50 ml @ 12. 5 mls/hr IVPB Q12HR [facility] Rx#:[id number] Norepinephrine 4 mg In 139.298 313.835 183.788 Sodium Chloride 0.9% 250 ml @ 0.05 MCG/KG/MIN 25. 908 mls/hr IV .Q9H49M [facility] Rx#:[id number] metroNIDAZOLE-NS PMX 500 200 mg In Saline 1 100ml.bag @ 100 mls/hr IVPB Q8HR [facility] Rx#:[id number] propofoL 1,000 mg In 177.248 381.152 197.240 Empty Bag 1 bag @ 5 MCG/ KG/MIN 4.08 mls/hr IV . Q24H [facility] Rx#:[id number] Tube Feeding 280 210 Other 80 60 95 Output: Urine 190 300 100 Other: Voiding Method Indwelling Catheter Indwelling Catheter Indwelling Catheter ABP, PAP, CO, CI - Last Documented Arterial Blood Pressure 114/42 - Exam GENERAL DESCRIPTION: Middle-aged male intubated on the vent. LUNGS: Unlabored breathing. Decreased breath sound at the base HEART: S1, S2, regular rate and rhythm. No loud murmur ABDOMEN: Soft, no tenderness , guarding or rigidity, no organomegaly EXTREMITIES: Right foot wound is currently dressed no drainage on the dressing - Labs CBC & Chem 7: 02/08/22 04:47 02/08/22 04:47 Labs: Abnormal Lab Results - Last 24 Hours (Table) 02/08/22 02/08/22 02/08/22 Range/Units 04:47 04:47 04:47 WBC 23.6 H (3.8-10.6) k/uL RBC 4.12 L (4.30-5.90) m/uL Hgb 11.1 L (13.0-17.5) gm/dL Hct 38.1 L (39.0-53.0) % MCHC 29.1 L (31.0-37.0) g/dL RDW 16.4 H (11.5-15.5) % PT 29.6 H (9.0-12.0) sec INR 3.0 H (<1.2) ABG pH (7.35-7.45) ABG pCO2 (35-45) mmHg ABG HCO3 (21-25) mmol/L ABG Total CO2 (19-24) mmol/L Hemoglobin (13.0-17.5) gm/dL Chloride 113 H (98-107) mmol/L Carbon Dioxide 14 L (22-30) mmol/L BUN 54 H (9-20) mg/dL Creatinine 4.36 H (0.66-1.25) mg/dL Glucose 101 H (74-99) mg/dL Calcium 7.2 L (8.4-10.2) mg/dL 02/08/22 Range/Units 05:40 WBC (3.8-10.6) k/uL RBC (4.30-5.90) m/uL Hgb (13.0-17.5) gm/dL Hct (39.0-53.0) % MCHC (31.0-37.0) g/dL RDW (11.5-15.5) % PT (9.0-12.0) sec INR (<1.2) ABG pH 7.28 L (7.35-7.45) ABG pCO2 34 L (35-45) mmHg ABG HCO3 16 L (21-25) mmol/L ABG Total CO2 17 L (19-24) mmol/L Hemoglobin 11.4 L (13.0-17.5) gm/dL Chloride (98-107) mmol/L Carbon Dioxide (22-30) mmol/L BUN (9-20) mg/dL Creatinine (0.66-1.25) mg/dL Glucose (74-99) mg/dL Calcium (8.4-10.2) mg/dL Microbiology - Last 24 Hours (Table) 02/04/22 09:39 Blood Culture - Preliminary Blood No Growth after 96 hours 02/04/22 09:39 Blood Culture - Preliminary Blood No Growth after 96 hours 02/05/22 23:55 Gram Stain - Preliminary Sputum Sputum Culture - Preliminary Gram Neg Bacilli Lynda albicans 01/31/22 18:55 Blood Culture Gram Stain - Final Blood Blood Culture - Final Staphylococcus aureus Staphylococcus epidermidis Assessment and Plan (1) Cellulitis Current Visit: Yes Status: Acute Code(s): L03.90 - CELLULITIS, UNSPECIFIED SNOMED Code(s): 560310408 Plan: 1patient with right foot unstageable pressure ulcer with surrounding necrotic area and cellulitis x-rays do not show any bony changes likely from gram- positive skin caleb and less likely gram-negative pathogen, patient is status post vascular surgery evaluation and debridement and deep cultureWhich has been finalized with strep and MSSA. 2-patient with MSSA bacteremia source is likely right foot infected pressure ulcer, Repeat blood culture has been negative 3Patient did have significant abnormality seen on the CT obtained by surgery with concern for possible fecal impaction and some inflammation of the colon and possible fistula. 4- patient sputum is now growing gram-negative bacilli, patient to continue cefepime and Flagyl and monitor clinical course closely Time with Patient: Less than 30
[2022-02-08 23:41] LABS: Glucose,Whole Blood 120 mg/dL (70-110)
--- NOTE | 2022-02-08 23:57 | P.PN ---
Subjective Progress Note Date: 02/07/22 This is a 61-year-old patient who follows with Dr. Sridhar Chan. Chronic stable medical conditions include diabetes, hypertension, hyperlipidemia, chronic low back problems, cigarette smoker. At the baseline uses a walker. Patient slipped in the bathroom falling on his buttock. Was not able to get up. By the EMS report he had fallen 24 hours prior to the picking him up. Patient been complaining of pain in the right rib cage in the lower back. X-ray was negative for fracture. Patient continued to have significant pain especially with deep breathing. Patient also had a congestive cough and wheezing. Some bloody sputum. Denies any fever and chills. Patient also complaining of urinary retention and requesting a Shepard catheter. at the bedside. No fever no chills. Orthopedics consulted for the same. Patient normally has a bowel movement once a week. Patient also has a wound on the right foot lateral part of the ankles for about a week. Ischemic changes. From rubbing against a bedpost. Patient's INR in the ER was greater than 10. Was given vitamin K. 10 mg Patient bit with Coumadin toxicity, given vitamin K, acute COPD exacerbation, uncontrolled atrial flutter put on Lopressor, right chest wall pain. Computed tomography scan lumbar spine and chest was ordered. Large wound on the right lateral malleolus-ID and vascular consulted.. IV cefepime. February 01: Patient yesterday to see refused his computed tomography scan of the chest and lumbar spine. Done today. Right-sided rib fractures, pulmonary contusion confirm. L1 vertebral body 30% wedge compression fracture. Patient's girlfriend the bedside. It was discussed in detail with her. Patient wanting again and again to pull out his NG tube. Requests the to stay with the patient. Patient is also had the dark aspirate from the stomach for which she has NG tube. Surgery was consulted for the same. Also this morning right foot wound was debrided by Dr. Ibarra from vascular. Wound base was relatively clean. No undermining or tunneling. February 02: Delirious. NG tube to suction. Has been in restraints because point NG TUBE several times. Mumbling to himself. Dressing over the right ankle. Not in distress. Ileus. Chest x-ray showing right lower lobe/atelectasis. February 03: Hospital computer system was down. Patient remains delirious. Nasal cannula. Lethargic. Family the bedside. Antibiotics. A. fib uncontrolled. EEG evidence of metabolic encephalopathy. No clear-cut epileptiform activity. Started on Keppra by neurology. February 04: ICU: Girlfriend at the bedside. In atrial fibrillation uncontrolled. On IV Cardizem and IV amiodarone. NG tube to suction. Patient lethargic. Multiple breathing. 2 L. Oxygen. February 05: ICU. Atrial fibrillation better controlled this morning. Cardizem discontinued. Patient respiratory status worsened this morning and patient is intubated. FiO2 45 and a PEEP of 5. Atrial fibrillation, controlled. Drips include amiodarone, propofol, levo fed. Discussed with girlfriend the bedside. Understands prognosis guarded. February 06: ICU: Ventilated. FiO2 45 and a PEEP of 5. NG tube is clamped. On IV propofol. Sedated. Heart rate better controlled. Was started on Coumadin yesterday. Worsening renal function. Nephrology consulted. 02/07/2022 Patient is currently in the MICU and on mechanical ventilator. Tidal volume of 400, FiO2 40% and PEEP of 5. Patient is off pressor support today. Currently on propofol and is also on tube feeding. Chest x-ray showed stable exam with stable support lines and tubes. Correlate for congestive heart failure. Patient was given a dose of IV Lasix. Laboratory data showed WBC 18.4 hemoglobin 11.6 and platelets 458 Sodium 141 potassium 3.7 chloride 103 bicarb is 18 BUN 49 and creatinine 3.73 and calcium 7.3. INR is 2.2. Patient is being followed by nephrology cardiology and critical care team. Current medications reviewed. Past medical history to include: COPD, diabetes, hypertension, hyperlipidemia, back problems, TB, atrial fibrillation, on Coumadin Social history: Smokes a pack a day for close to 50 years. Stop doing alcohol some time ago. Tanner blair with his significant other Sandra. Does use a walker. 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 Conjunctiva normal. HEENT: External appearance of nose and ears normal, oral cavity dry, NG tube, endotracheal tube NECK: JVD not raised; masses not palpable. HEART: Heart sounds irregular; mild edema. LUNGS: Respiratory rate increased; decreased breath sound, ABDOMEN: Soft, distended, nontender, liver spleen not palpable, no masses palpable. PSYCH: Unable to assess, patient sedated DERMATOLOGICAL: Wound on right ankle lateral malleolus. Under dressing INVESTIGATIONS, reviewed in the clinical context: Computed tomography scan abdomen and pelvis [February 06] 6 mm stone in the right renal collecting system. Some circumferential wall thickening of the cecum and ascending colon. Distention of the rectum 7.5 cm with solid stool. February 06: WBC 4, 16.4 hemoglobin 10.5, platelets 160, potassium 3, BUN 43, creatinine 3.17 February 05: WBC 19.1 hemoglobin 11.5 platelets 179 potassium 3.7 BUN 37, creatinine 2.38. ABG: PH 7.24, pCO2 60, pO2 111 February 04: Obesity, 16.2, hemoglobin 12.4 potassium 4.3, BUN 36, creatinine 1.84 EEG: Evidence of encephalopathy. No obvious epileptiform activity. 2-D echocardiogram: EF 60-65%. February 03: WBC 18.5, hemoglobin 12.5 potassium 3.2, BUN 35, creatinine 1.77 February 02: CBC 7.5 hemoglobin 13.3 platelets 166 potassium 3 view and 29 creatinine 1.6 to Renal ultrasound: Shows bilateral normal cortical medullary thickness. February 01: WBC 17.1 hemoglobin 14.8 UA: Blood large, leukoesterase moderate WBC 28 nitrite negative Lumbar spine CT: Anterior wedge compression deformity of L1. Multiple level DJD. 7 mm calculus right renal pelvis. CT chest without contrast: Right lateral eighth through 10th rib fractures with associated gas trace hemothorax right lower lobe pulmonary contusion/atelectasis. Patchy) disease left upper lobe. WBC 25.8 hemoglobin 14.1 platelets 217 INR greater than 10 sodium 131 potassium 3.9. 24 creatinine 1.8 to EKG tracing personally reviewed by me-atrial flutter. Rate 132 Foot/Lumbar/sacral coccyx: Spondylitic changes. No fracture. Chest x-ray film personally reviewed by me-clinically. Possible hyperinflation Assessment and plan: -Coumadin toxicity. INR greater than 10. On presentation: 10 mg vitamin K in the ER. Hemoptysis on presentation. Coumadin resumed on February 05.. - right lung contusion.-Secondary to fall/hip fracture. hemoptysis on presentation -Sepsis with positive blood cultures MSSA. From January 31. IV Ancef -Acute hypoxic respiratory failure, multifactorial: ventilator support,: Slow to respond Patient intubated on February 05 -Acute COPD exacerbation, with chronic bronchitis component in a current smoker: Slow to respond DuoNeb. Nebulized Pulmicort. Mucinex. -Chronic nicotine dependence, cigarette smoker Nicotine patch -Persistent atrial flutter,: Remains controlled Lopressor 50 mg 3 times a day. 2-D echocardiogram unremarkable. Oral amiodarone Coumadin started on February 05 -Possible CK D with possible acute component. creatinine was 0.8 in April 2019. Renal ultrasound unremarkable. UA shows trace protein. IV fluids.. -Acute kidney injury, ATN, likely cardiorenal syndrome.: Worsening Follow with nephrology. -Acute right-sided 8-10 ribs fracture secondary to fall K pad -Diabetes mellitus type 2, chronically on oral hypoglycemic Hold Glucotrol. Sliding scale insulin. Levemir 14 units daily at bedtime -Diabetic peripheral neuropathy Decreased dose of Lyrica in the setting of renal failure. 100 mg twice a day -Chronic low back pain: MS Contin 15 mg every 12, [place] 7.5 twice a day when necessary -Anxiety depression not otherwise specified Wellbutrin XL 100 mg twice a day -Hyperlipidemia Lipitor 40 mg daily at bedtime -Right ankle lateral, diabetic wound, stage II acute. Wound culture positive for Streptococcus agalactiae and Staphylococcus aureus. IV Ancef ID consulted. Patient has poor distal pulses. February 01 wound was debrided by Dr. Ibarra. Clean base. -Acute L1 30% wedge fracture secondary to fall LSO brace. Be followed by Dr. Damon -Acute delirium multifactorial. Slow to respond -Acute ileus, NG tube for decompression.; clamped. Being followed by surgery. -Possible colitis on computed tomography scan. Patient is on cefepime and Flagyl. c/w abx . By mouth amiodarone. Lopressor. NG tube clamped. IV propofol. Objective - Vital Signs Vital signs: Vital Signs Temp 98.0 F 02/07/22 20:00 Pulse 73 02/07/22 20:24 Resp 24 02/07/22 20:15 BP 110/56 02/07/22 20:15 Pulse Ox 99 02/07/22 20:15 FiO2 40 02/07/22 20:05 Intake & Output 02/07/22 02/07/22 02/08/22 06:59 18:59 06:59 Intake Total 2048.391 1402.546 216.935 Output Total 335 190 40 Balance 9222.242 7080.546 176.935 Weight 133.1 kg 133.1 kg Intake: IV 1416 706 106 Cefepime 1 gm In Sodium 50 Chloride 0.9% 50 ml @ 12. 5 mls/hr IVPB Q12HR [facility] Rx#:[id number] Pressure bags 66 6 6 Sodium Chloride 0.9% 1, 1200 600 100 000 ml @ 50 mls/hr IV . Q20H [facility] Rx#:[id number] levETIRAcetam IV 500 mg 100 100 In Sodium Chloride 0.9% 100 ml @ 400 mls/hr IVPB Q12HR [facility] Rx#:[id number] Intake, IV Titration 572.391 616.546 40.935 Amount Cefepime 1 gm In Sodium 100 Chloride 0.9% 50 ml @ 12. 5 mls/hr IVPB Q12HR [facility] Rx#:[id number] Norepinephrine 4 mg In 172.391 139.298 40.935 Sodium Chloride 0.9% 250 ml @ 0.05 MCG/KG/MIN 25. 908 mls/hr IV .Q9H49M [facility] Rx#:[id number] metroNIDAZOLE-NS PMX 500 200 mg In Saline 1 100ml.bag @ 100 mls/hr IVPB Q8HR [facility] Rx#:[id number] propofoL 1,000 mg In 400 177.248 Empty Bag 1 bag @ 5 MCG/ KG/MIN 4.08 mls/hr IV . Q24H [facility] Rx#:[id number] Tube Feeding 40 Other 60 80 30 Output: Urine 335 190 40 Other: Voiding Method Indwelling Catheter Indwelling Catheter ABP, PAP, CO, CI - Last Documented Arterial Blood Pressure 108/44 - Labs CBC & Chem 7: 02/08/22 04:47 02/08/22 04:47 Labs: Abnormal Lab Results - Last 24 Hours (Table) 02/07/22 02/07/22 02/07/22 Range/Units 04:55 04:55 04:55 WBC 18.5 H (3.8-10.6) k/uL RBC 4.16 L (4.30-5.90) m/uL Hgb 11.6 L (13.0-17.5) gm/dL Hct 38.3 L (39.0-53.0) % MCHC 30.4 L (31.0-37.0) g/dL RDW 16.2 H (11.5-15.5) % PT 22.4 H (9.0-12.0) sec INR 2.2 H (<1.2) ABG pH (7.35-7.45) ABG pO2 (83-108) mmHg ABG HCO3 (21-25) mmol/L Hemoglobin (13.0-17.5) gm/dL Chloride 113 H (98-107) mmol/L Carbon Dioxide 18 L (22-30) mmol/L BUN 49 H (9-20) mg/dL Creatinine 3.73 H (0.66-1.25) mg/dL Calcium 7.3 L (8.4-10.2) mg/dL 02/07/22 Range/Units 05:20 WBC (3.8-10.6) k/uL RBC (4.30-5.90) m/uL Hgb (13.0-17.5) gm/dL Hct (39.0-53.0) % MCHC (31.0-37.0) g/dL RDW (11.5-15.5) % PT (9.0-12.0) sec INR (<1.2) ABG pH 7.33 L (7.35-7.45) ABG pO2 79 L (83-108) mmHg ABG HCO3 19 L (21-25) mmol/L Hemoglobin 11.4 L (13.0-17.5) gm/dL Chloride (98-107) mmol/L Carbon Dioxide (22-30) mmol/L BUN (9-20) mg/dL Creatinine (0.66-1.25) mg/dL Calcium (8.4-10.2) mg/dL Microbiology - Last 24 Hours (Table) 01/31/22 18:55 Blood Culture Gram Stain - Final Blood Blood Culture - Final Staphylococcus aureus Staphylococcus epidermidis 02/04/22 09:39 Blood Culture - Preliminary Blood No Growth after 72 hours 02/04/22 09:39 Blood Culture - Preliminary Blood No Growth after 72 hours 02/05/22 23:55 Gram Stain - Preliminary Sputum Sputum Culture - Preliminary
--- NOTE | 2022-02-09 | P.PN ---
Subjective Progress Note Date: 02/08/22 This is a 61-year-old patient who follows with Dr. Sridhar Chan. Chronic stable medical conditions include diabetes, hypertension, hyperlipidemia, chronic low back problems, cigarette smoker. At the baseline uses a walker. Patient slipped in the bathroom falling on his buttock. Was not able to get up. By the EMS report he had fallen 24 hours prior to the picking him up. Patient been complaining of pain in the right rib cage in the lower back. X-ray was negative for fracture. Patient continued to have significant pain especially with deep breathing. Patient also had a congestive cough and wheezing. Some bloody sputum. Denies any fever and chills. Patient also complaining of urinary retention and requesting a Shepard catheter. at the bedside. No fever no chills. Orthopedics consulted for the same. Patient normally has a bowel movement once a week. Patient also has a wound on the right foot lateral part of the ankles for about a week. Ischemic changes. From rubbing against a bedpost. Patient's INR in the ER was greater than 10. Was given vitamin K. 10 mg Patient bit with Coumadin toxicity, given vitamin K, acute COPD exacerbation, uncontrolled atrial flutter put on Lopressor, right chest wall pain. Computed tomography scan lumbar spine and chest was ordered. Large wound on the right lateral malleolus-ID and vascular consulted.. IV cefepime. February 01: Patient yesterday to see refused his computed tomography scan of the chest and lumbar spine. Done today. Right-sided rib fractures, pulmonary contusion confirm. L1 vertebral body 30% wedge compression fracture. Patient's girlfriend the bedside. It was discussed in detail with her. Patient wanting again and again to pull out his NG tube. Requests the to stay with the patient. Patient is also had the dark aspirate from the stomach for which she has NG tube. Surgery was consulted for the same. Also this morning right foot wound was debrided by Dr. Ibarra from vascular. Wound base was relatively clean. No undermining or tunneling. February 02: Delirious. NG tube to suction. Has been in restraints because point NG TUBE several times. Mumbling to himself. Dressing over the right ankle. Not in distress. Ileus. Chest x-ray showing right lower lobe/atelectasis. February 03: Hospital computer system was down. Patient remains delirious. Nasal cannula. Lethargic. Family the bedside. Antibiotics. A. fib uncontrolled. EEG evidence of metabolic encephalopathy. No clear-cut epileptiform activity. Started on Keppra by neurology. February 04: ICU: Girlfriend at the bedside. In atrial fibrillation uncontrolled. On IV Cardizem and IV amiodarone. NG tube to suction. Patient lethargic. Multiple breathing. 2 L. Oxygen. February 05: ICU. Atrial fibrillation better controlled this morning. Cardizem discontinued. Patient respiratory status worsened this morning and patient is intubated. FiO2 45 and a PEEP of 5. Atrial fibrillation, controlled. Drips include amiodarone, propofol, levo fed. Discussed with girlfriend the bedside. Understands prognosis guarded. February 06: ICU: Ventilated. FiO2 45 and a PEEP of 5. NG tube is clamped. On IV propofol. Sedated. Heart rate better controlled. Was started on Coumadin yesterday. Worsening renal function. Nephrology consulted. 02/07/2022 Patient is currently in the MICU and on mechanical ventilator. Tidal volume of 400, FiO2 40% and PEEP of 5. Patient is off pressor support today. Currently on propofol and is also on tube feeding. Chest x-ray showed stable exam with stable support lines and tubes. Correlate for congestive heart failure. Patient was given a dose of IV Lasix. Laboratory data showed WBC 18.4 hemoglobin 11.6 and platelets 458 Sodium 141 potassium 3.7 chloride 103 bicarb is 18 BUN 49 and creatinine 3.73 and calcium 7.3. INR is 2.2. Patient is being followed by nephrology cardiology and critical care team. 02/08/2022 Patient is currently on mechanical ventilator and sedated with propofol. Assist control with FiO2 40% and tidal volume of 400 and PEEP of 5. Patient is being continued on antibiotics above cefepime and Flagyl. Sputum gram stain gram-negative bacilli and Lynda. Chest x-ray today showed findings suggestive of slightly worsening CHF exacerbation as there is cardiomegaly with mild to moderate central venous congestion and small to moderate-sized bilateral pleural effusion. Laboratory test showed WBC increased to 23.6 hemoglobin 9.1 and platelets 162 INR 3.0 Sodium 139 potassium 4.3 chloride 113 bicarb is 40 BUN 54 and creatinine worsening to 4.36 Current medications reviewed. Past medical history to include: COPD, diabetes, hypertension, hyperlipidemia, back problems, TB, atrial fibrillation, on Coumadin Social history: Smokes a pack a day for close to 50 years. Stop doing alcohol some time ago. Lives with his significant other Sandra. Does use a walker. 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 Conjunctiva normal. HEENT: External appearance of nose and ears normal, oral cavity dry, NG tube, endotracheal tube NECK: JVD not raised; masses not palpable. HEART: Heart sounds irregular; mild edema. LUNGS: Respiratory rate increased; decreased breath sound, ABDOMEN: Soft, distended, nontender, liver spleen not palpable, no masses palpable. PSYCH: Unable to assess, patient sedated DERMATOLOGICAL: Wound on right ankle lateral malleolus. Under dressing INVESTIGATIONS, reviewed in the clinical context: Computed tomography scan abdomen and pelvis [February 06] 6 mm stone in the right renal collecting system. Some circumferential wall thickening of the cecum and ascending colon. Distention of the rectum 7.5 cm with solid stool. February 06: WBC 4, 16.4 hemoglobin 10.5, platelets 160, potassium 3, BUN 43, creatinine 3.17 February 05: WBC 19.1 hemoglobin 11.5 platelets 179 potassium 3.7 BUN 37, creatinine 2.38. ABG: PH 7.24, pCO2 60, pO2 111 February 04: Obesity, 16.2, hemoglobin 12.4 potassium 4.3, BUN 36, creatinine 1.84 EEG: Evidence of encephalopathy. No obvious epileptiform activity. 2-D echocardiogram: EF 60-65%. February 03: WBC 18.5, hemoglobin 12.5 potassium 3.2, BUN 35, creatinine 1.77 February 02: CBC 7.5 hemoglobin 13.3 platelets 166 potassium 3 view and 29 creatinine 1.6 to Renal ultrasound: Shows bilateral normal cortical medullary thickness. February 01: WBC 17.1 hemoglobin 14.8 UA: Blood large, leukoesterase moderate WBC 28 nitrite negative Lumbar spine CT: Anterior wedge compression deformity of L1. Multiple level DJD. 7 mm calculus right renal pelvis. CT chest without contrast: Right lateral eighth through 10th rib fractures with associated gas trace hemothorax right lower lobe pulmonary c ontusion/atelectasis. Patchy) disease left upper lobe. WBC 25.8 hemoglobin 14.1 platelets 217 INR greater than 10 sodium 131 potassium 3.9. 24 creatinine 1.8 to EKG tracing personally reviewed by me-atrial flutter. Rate 132 Foot/Lumbar/sacral coccyx: Spondylitic changes. No fracture. Chest x-ray film personally reviewed by me-clinically. Possible hyperinflation Assessment and plan: -Coumadin toxicity. INR greater than 10. On presentation: 10 mg vitamin K in the ER. Hemoptysis on presentation. Coumadin resumed on February 05.. - right lung contusion.-Secondary to fall/hip fracture. hemoptysis on presentation -Sepsis with positive blood cultures MSSA. From January 31. IV Ancef -Acute hypoxic respiratory failure, multifactorial: ventilator support,: Slow to respond Patient intubated on February 05 -Acute COPD exacerbation, with chronic bronchitis component in a current smoker: Slow to respond DuoNeb. Nebulized Pulmicort. Mucinex. -Chronic nicotine dependence, cigarette smoker Nicotine patch 21 -Persistent atrial flutter,: Remains controlled Lopressor 50 mg 3 times a day. 2-D echocardiogram unremarkable. Oral amiodarone Coumadin started on February 05 -Possible CK D with possible acute component. creatinine was 0.8 in April 2019. Renal ultrasound unremarkable. UA shows trace protein. IV fluids.. -Acute kidney injury, ATN, likely cardiorenal syndrome.: Worsening Follow with nephrology. -Acute right-sided 8-10 ribs fracture secondary to fall K pad -Diabetes mellitus type 2, chronically on oral hypoglycemic Hold Glucotrol. Sliding scale insulin. Levemir 14 units daily at bedtime -Diabetic peripheral neuropathy Decreased dose of Lyrica in the setting of renal failure. 100 mg twice a day -Chronic low back pain: MS Contin 15 mg every 12, [place] 7.5 twice a day when necessary -Anxiety depression not otherwise specified Wellbutrin XL 100 mg twice a day -Hyperlipidemia Lipitor 40 mg daily at bedtime -Right ankle lateral, diabetic wound, stage II acute. Wound culture positive for Streptococcus agalactiae and Staphylococcus aureus. IV Ancef ID consulted. Patient has poor distal pulses. February 01 wound was debrided by Dr. Ibarra. Clean base. -Acute L1 30% wedge fracture secondary to fall LSO brace. Be followed by Dr. Damon -Acute delirium multifactorial. Slow to respond -Acute ileus, NG tube for decompression.; clamped. Being followed by surgery. -Possible colitis on computed tomography scan. Patient is on cefepime and Flagyl. c/w abx . By mouth amiodarone. Lopressor. NG tube clamped. IV propofol. Objective - Vital Signs Vital signs: Vital Signs Temp 98.3 F 02/08/22 20:00 Pulse 103 H 02/08/22 20:00 Resp 24 02/08/22 20:00 BP 100/51 02/08/22 20:00 Pulse Ox 86 L 02/08/22 20:00 FiO2 40 02/08/22 20:00 Intake & Output 02/08/22 02/08/22 02/09/22 06:59 18:59 06:59 Intake Total 2050.987 2583.351 419.849 Output Total 300 165 65 Balance 6727.811 1786.351 354.849 Weight 138.5 kg Intake: IV 1016 962 168 Cefepime 1 gm In Sodium 50 100 Chloride 0.9% 50 ml @ 12. 5 mls/hr IVPB Q12HR [facility] Rx#:[id number] Pressure bags 66 72 18 Sodium Chloride 0.9% 1, 600 590 150 000 ml @ 50 mls/hr IV . Q20H [facility] Rx#:[id number] levETIRAcetam IV 500 mg 200 In Sodium Chloride 0.9% 100 ml @ 400 mls/hr IVPB Q12HR [facility] Rx#:[id number] metroNIDAZOLE-NS PMX 500 100 200 mg In Saline 1 100ml.bag @ 100 mls/hr IVPB Q8HR [facility] Rx#:[id number] Intake, IV Titration 429.314 2726.351 185.849 Amount Norepinephrine 4 mg In 313.835 417.479 156.745 Sodium Chloride 0.9% 250 ml @ 0.05 MCG/KG/MIN 25. 908 mls/hr IV .Q9H49M [facility] Rx#:[id number] Sodium Chloride 0.9% 500 500 ml 500 ml @ 999 mls/hr IV .Q31M [facility] Rx#:[id number] propofoL 1,000 mg In 381.152 215.872 29.104 Empty Bag 1 bag @ 5 MCG/ KG/MIN 4.08 mls/hr IV . Q24H [facility] Rx#:[id number] Tube Feeding 280 363 66 Other 60 125 Output: Urine 300 165 65 Other: Voiding Method Indwelling Catheter Indwelling Catheter Indwelling Catheter ABP, PAP, CO, CI - Last Documented Arterial Blood Pressure 112/43 - Labs CBC & Chem 7: 02/08/22 04:47 02/08/22 04:47 Labs: Abnormal Lab Results - Last 24 Hours (Table) 02/08/22 02/08/22 02/08/22 Range/Units 04:47 04:47 04:47 WBC 23.6 H (3.8-10.6) k/uL RBC 4.12 L (4.30-5.90) m/uL Hgb 11.1 L (13.0-17.5) gm/dL Hct 38.1 L (39.0-53.0) % MCHC 29.1 L (31.0-37.0) g/dL RDW 16.4 H (11.5-15.5) % PT 29.6 H (9.0-12.0) sec INR 3.0 H (<1.2) ABG pH (7.35-7.45) ABG pCO2 (35-45) mmHg ABG HCO3 (21-25) mmol/L ABG Total CO2 (19-24) mmol/L Hemoglobin (13.0-17.5) gm/dL Chloride 113 H (98-107) mmol/L Carbon Dioxide 14 L (22-30) mmol/L BUN 54 H (9-20) mg/dL Creatinine 4.36 H (0.66-1.25) mg/dL Glucose 101 H (74-99) mg/dL Calcium 7.2 L (8.4-10.2) mg/dL 02/08/22 Range/Units 05:40 WBC (3.8-10.6) k/uL RBC (4.30-5.90) m/uL Hgb (13.0-17.5) gm/dL Hct (39.0-53.0) % MCHC (31.0-37.0) g/dL RDW (11.5-15.5) % PT (9.0-12.0) sec INR (<1.2) ABG pH 7.28 L (7.35-7.45) ABG pCO2 34 L (35-45) mmHg ABG HCO3 16 L (21-25) mmol/L ABG Total CO2 17 L (19-24) mmol/L Hemoglobin 11.4 L (13.0-17.5) gm/dL Chloride (98-107) mmol/L Carbon Dioxide (22-30) mmol/L BUN (9-20) mg/dL Creatinine (0.66-1.25) mg/dL Glucose (74-99) mg/dL Calcium (8.4-10.2) mg/dL Microbiology - Last 24 Hours (Table) 02/04/22 09:39 Blood Culture - Preliminary Blood No Growth after 96 hours 02/04/22 09:39 Blood Culture - Preliminary Blood No Growth after 96 hours 02/05/22 23:55 Gram Stain - Preliminary Sputum Sputum Culture - Preliminary Gram Neg Bacilli Lynda albicans
--- NOTE | 2022-02-09 00:06 | P.PN ---
Subjective Progress Note Date: 02/08/22 Patient was seen for a follow-up. Patient has been intubated. Currently on propofol 40 mcg/kg/m. No seizure like activity or twitching noticed. Patient's blood pressure was low today, patient started on Levophed. Patient's significant other has mentioned that patient has frequent falls for last 2 years for which he uses a walker. Without walker, his legs give out and he falls. He has broke one leg, and fractured the other. She believes that he may had a bedsore in the right ankle for 2 days prior to arrival. Then she saw a red line going up the leg. There is no fever or chills. She says that he fell at home going to the bathroom just prior to arrival to the hospital. Patient's mentation was fine when he arrived. However mentation has progressively got worse while in the hospital. Objective - Vital Signs Vital signs: Vital Signs Temp 98.3 F 02/08/22 20:00 Pulse 98 02/08/22 23:00 Resp 25 H 02/08/22 23:00 BP 132/58 02/08/22 23:00 Pulse Ox 96 02/08/22 23:00 FiO2 40 02/08/22 23:08 Intake & Output 02/08/22 02/08/22 02/09/22 06:59 18:59 06:59 Intake Total 2050.987 2583.351 795.104 Output Total 300 165 115 Balance 7955.569 6912.351 680.104 Weight 138.5 kg Intake: IV 1016 962 280 Cefepime 1 gm In Sodium 50 100 Chloride 0.9% 50 ml @ 12. 5 mls/hr IVPB Q12HR [facility] Rx#:[id number] Pressure bags 66 72 30 Sodium Chloride 0.9% 1, 600 590 250 000 ml @ 50 mls/hr IV . Q20H [facility] Rx#:[id number] levETIRAcetam IV 500 mg 200 In Sodium Chloride 0.9% 100 ml @ 400 mls/hr IVPB Q12HR [facility] Rx#:[id number] metroNIDAZOLE-NS PMX 500 100 200 mg In Saline 1 100ml.bag @ 100 mls/hr IVPB Q8HR [facility] Rx#:[id number] Intake, IV Titration 605.753 9185.351 383.104 Amount Norepinephrine 4 mg In 313.835 417.479 254.000 Sodium Chloride 0.9% 250 ml @ 0.05 MCG/KG/MIN 25. 908 mls/hr IV .Q9H49M [facility] Rx#:[id number] Sodium Chloride 0.9% 500 500 ml 500 ml @ 999 mls/hr IV .Q31M [facility] Rx#:[id number] propofoL 1,000 mg In 381.152 215.872 129.104 Empty Bag 1 bag @ 5 MCG/ KG/MIN 4.08 mls/hr IV . Q24H [facility] Rx#:[id number] Tube Feeding 280 363 132 Other 60 125 Output: Urine 300 165 115 Other: Voiding Method Indwelling Catheter Indwelling Catheter Indwelling Catheter ABP, PAP, CO, CI - Last Documented Arterial Blood Pressure 122/47 - Exam Patient is intubated, sedated. No seizure-like activity. Patient has significant peripheral edema. Pupils are equal, round and reactive to light. Examination limited because patient is sedated. - Labs CBC & Chem 7: 02/08/22 04:47 02/08/22 04:47 Labs: Abnormal Lab Results - Last 24 Hours (Table) 02/08/22 02/08/22 02/08/22 Range/Units 04:47 04:47 04:47 WBC 23.6 H (3.8-10.6) k/uL RBC 4.12 L (4.30-5.90) m/uL Hgb 11.1 L (13.0-17.5) gm/dL Hct 38.1 L (39.0-53.0) % MCHC 29.1 L (31.0-37.0) g/dL RDW 16.4 H (11.5-15.5) % PT 29.6 H (9.0-12.0) sec INR 3.0 H (<1.2) ABG pH (7.35-7.45) ABG pCO2 (35-45) mmHg ABG HCO3 (21-25) mmol/L ABG Total CO2 (19-24) mmol/L Hemoglobin (13.0-17.5) gm/dL Chloride 113 H (98-107) mmol/L Carbon Dioxide 14 L (22-30) mmol/L BUN 54 H (9-20) mg/dL Creatinine 4.36 H (0.66-1.25) mg/dL Glucose 101 H (74-99) mg/dL POC Glucose (mg/dL) (70-110) mg/dL Calcium 7.2 L (8.4-10.2) mg/dL 02/08/22 02/08/22 Range/Units 05:40 23:39 WBC (3.8-10.6) k/uL RBC (4.30-5.90) m/uL Hgb (13.0-17.5) gm/dL Hct (39.0-53.0) % MCHC (31.0-37.0) g/dL RDW (11.5-15.5) % PT (9.0-12.0) sec INR (<1.2) ABG pH 7.28 L (7.35-7.45) ABG pCO2 34 L (35-45) mmHg ABG HCO3 16 L (21-25) mmol/L ABG Total CO2 17 L (19-24) mmol/L Hemoglobin 11.4 L (13.0-17.5) gm/dL Chloride (98-107) mmol/L Carbon Dioxide (22-30) mmol/L BUN (9-20) mg/dL Creatinine (0.66-1.25) mg/dL Glucose (74-99) mg/dL POC Glucose (mg/dL) 120 H (70-110) mg/dL Calcium (8.4-10.2) mg/dL Microbiology - Last 24 Hours (Table) 02/04/22 09:39 Blood Culture - Preliminary Blood No Growth after 96 hours 02/04/22 09:39 Blood Culture - Preliminary Blood No Growth after 96 hours 02/05/22 23:55 Gram Stain - Preliminary Sputum Sputum Culture - Preliminary Gram Neg Bacilli Lynda albicans Assessment and Plan Assessment: * Acute metabolic encephalopathy. Myoclonic twitching has resolved. * Septicemia with staph aureus. * Cellulitis with right foot ulcer * Abnormal CT of abdomen and pelvis. Report reviewed. * Status post fall with L1 compression fracture * Moderate renal insufficiency, worsening. * Coagulopathy * Right sided rib fractures secondary to fall. * Atrial fibrillation on long-term anticoagulation with Coumadin. * Peripheral edema. * Long-standing history of frequent falls, uses walker * COPD * Chronic tobacco use * Diabetes with hemoglobin A1c 8.1 * Probable diabetic peripheral neuropathy. * Peripheral arterial disease Plan: * Patient has multiple medical issues. Multiple specialties on board. * EEG 02/03/2022 did not reveal any status epilepticus. Some background sl owing, with triphasic waves suggestive of metabolic encephalopathy. Lot of myogenic activity precluding optimal evaluation of brain waves. * Patient's renal functions are worsening. We will decrease Keppra to 500 mg once daily. If the patient recovers, then Keppra can be weaned off. * Medical management as per IM and critical care. * Patient has septicemia with staph aureus. ID following patient currently on cefazolin 2 g IV PB every 8 hours. ID following. * Carotid Doppler revealed no significant stenosis. Antegrade flow in both vertebral arteries. * 2-D echo revealed normal left-ventricular size with concentric LVH. EF is 60- 65%. * Patient has atrial fibrillation. Patient on Coumadin with therapeutic INR. * Neurology will sign off. Please reconsult neurology if any concerns.
[2022-02-09] MEDS: NOREPINEPHRINE 32 MG in SODIUM CHLORIDE 0.9% 218 ML IV SCH (00:24)
[2022-02-09] MEDS: INSULIN ASPART (NovoLOG) 100 UNIT/ML VIAL SQ SCH ×4 (00:25→18:36)
[2022-02-09] MEDS: metroNIDAZOLE-NS PMX 500 MG in SALINE 1 100ML.BAG IVPB SCH ×4 (00:30→23:35)
[2022-02-09] MEDS: MORPHINE ORAL SOLN 10 MG/5 ML CUP PO SCH ×3 (00:32→23:34)
[2022-02-09 05:16] LABS: ABG Base Excess -14.3 mmol/L; ABG HCO3 14 mmol/L (21-25); ABG Hematocrit 36 % (34.0-46.0); ABG Oxygen Saturation 96.5 % (94-97); ABG PCO2 34 mmHg (35-45); ABG PH 7.21 (7.35-7.45); ABG PO2 90 mmHg (83-108); ABG TCO2 15 mmol/L (19-24)
[2022-02-09 05:18] LABS: Allen Test Performed? no
[2022-02-09 05:29] LABS: Glucose,Whole Blood 135 mg/dL (70-110)
[2022-02-09 05:49] LABS: INR 3.3 (<1.2); Prothrombin Time 32.5 sec (9.0-12.0)
[2022-02-09 05:56] LABS: ALT <6 U/L (4-49); AST 14 U/L (17-59); African American GFR (CKD) 14 (>60 ml/min/1.73 sqM); Alkaline Phosphatase 121 U/L (38-126); Anion Gap 13 mmol/L; Blood Urea Nitrogen 60 mg/dL (9-20); Calcium 7.2 mg/dL (8.4-10.2); Carbon Dioxide 13 mmol/L (22-30); Chloride 114 mmol/L (98-107); Glucose 133 mg/dL (74-99); Non-African American GFR(CKD) 12 (>60 ml/min/1.73 sqM); Potassium 4.8 mmol/L (3.5-5.1); Sodium 140 mmol/L (137-145); Total Bilirubin 0.6 mg/dL (0.2-1.3); Total Protein 4.9 g/dL (6.3-8.2)
[2022-02-09 05:57] LABS: Anisocytosis Slight; Basophils # (A) 0.2 k/uL (0-0.2); Basophils % (A) 1 %; Eosinophils # (A) 0.7 k/uL (0-0.7); Eosinophils % (A) 3 %; HGB 11.7 gm/dL (13.0-17.5); Hypochromasia Marked; Lymphocytes # (A) 1.3 k/uL (1.0-4.8); Lymphocytes % (A) 5 %; MCH 27.4 pg (25.0-35.0); MCHC 29.3 g/dL (31.0-37.0); MCV 93.7 fL (80.0-100.0); Mean Platelet Volume 8.8; Monocytes # (A) 1.3 k/uL (0-1.0); Monocytes % (A) 5 %; Neutrophils # (A) 22.9 k/uL (1.3-7.7); Neutrophils % (A) 86 %; Platelet Count 201 k/uL (150-450); RBC 4.27 m/uL (4.30-5.90); RDW 16.6 % (11.5-15.5); WBC 26.5 k/uL (3.8-10.6)
[2022-02-09] MEDS: SODIUM CHLORIDE 0.9% 1,000 ML IV SCH (05:57)
--- NOTE | 2022-02-09 07:22 | P.PN ---
Subjective Progress Note Date: 02/09/22 Principal diagnosis: Persistent atrial fibrillation This is a 61-year-old gentleman who was admitted to the hospital with acute on chronic respiratory failure as well as metabolic encephalopathy and septic shock. We involved in the care of the patient for the management of persistent atrial fibrillation. The patient was seen this morning. He continues to be intubated on mechanical ventilation. He is currently on 40% FiO2 and PEEP of 5. He still requires small dose of norepinephrine as well. He is in process of having or placement of dialysis catheter later on today. The INR is 3.3. Coumadin is on hold at this point. He is on amiodarone and the heart rate seems to be under good control on the current dose of amiodarone. Objective - Vital Signs Vital signs: Vital Signs Temp 98.7 F 02/09/22 04:00 Pulse 104 H 02/09/22 07:00 Resp 24 02/09/22 07:00 BP 112/64 02/09/22 07:00 Pulse Ox 95 02/09/22 07:00 FiO2 40 02/09/22 04:00 Intake & Output 02/08/22 02/09/22 02/09/22 18:59 06:59 18:59 Intake Total 2583.351 2011.257 Output Total 165 280 Balance 2418.351 1731.257 Weight 138.5 kg Intake: IV 962 978 Cefepime 1 gm In Sodium 100 350 Chloride 0.9% 50 ml @ 12. 5 mls/hr IVPB Q12HR [facility] Rx#:[id number] Pressure bags 72 78 Sodium Chloride 0.9% 1, 590 350 000 ml @ 50 mls/hr IV . Q20H [facility] Rx#:[id number] levETIRAcetam IV 500 mg 100 In Sodium Chloride 0.9% 100 ml @ 400 mls/hr IVPB DAILY [facility] Rx#:[id number] metroNIDAZOLE-NS PMX 500 200 100 mg In Saline 1 100ml.bag @ 100 mls/hr IVPB Q8HR [facility] Rx#:[id number] Intake, IV Titration 1133.351 637.257 Amount Norepinephrine 4 mg In 417.479 408.153 Sodium Chloride 0.9% 250 ml @ 0.05 MCG/KG/MIN 25. 908 mls/hr IV .Q9H49M [facility] Rx#:[id number] Sodium Chloride 0.9% 500 500 ml 500 ml @ 999 mls/hr IV .Q31M [facility] Rx#:[id number] propofoL 1,000 mg In 215.872 229.104 Empty Bag 1 bag @ 5 MCG/ KG/MIN 4.08 mls/hr IV . Q24H [facility] Rx#:[id number] Tube Feeding 363 396 Other 125 Output: Urine 165 280 Other: Voiding Method Indwelling Catheter Indwelling Catheter ABP, PAP, CO, CI - Last Documented Arterial Blood Pressure 139/57 - Constitutional General appearance: Present: no acute distress - Respiratory Respiratory: bilateral: diminished - Cardiovascular Rhythm: irregularly irregular - Labs CBC & Chem 7: 02/09/22 05:25 02/09/22 05:25 Labs: Abnormal Lab Results - Last 24 Hours (Table) 02/08/22 02/09/22 02/09/22 Range/Units 23:39 05:15 05:25 WBC (3.8-10.6) k/uL RBC (4.30-5.90) m/uL Hgb (13.0-17.5) gm/dL MCHC (31.0-37.0) g/dL RDW (11.5-15.5) % Neutrophils # (1.3-7.7) k/uL Monocytes # (0-1.0) k/uL PT 32.5 H (9.0-12.0) sec INR 3.3 H (<1.2) ABG pH 7.21 L (7.35-7.45) ABG pCO2 34 L (35-45) mmHg ABG HCO3 14 L (21-25) mmol/L ABG Total CO2 15 L (19-24) mmol/L Hemoglobin 11.7 L (13.0-17.5) gm/dL Chloride (98-107) mmol/L Carbon Dioxide (22-30) mmol/L BUN (9-20) mg/dL Creatinine (0.66-1.25) mg/dL Glucose (74-99) mg/dL POC Glucose (mg/dL) 120 H (70-110) mg/dL Calcium (8.4-10.2) mg/dL AST (17-59) U/L Total Protein (6.3-8.2) g/dL Albumin (3.5-5.0) g/dL 02/09/22 02/09/22 02/09/22 Range/Units 05:25 05:25 05:27 WBC 26.5 H (3.8-10.6) k/uL RBC 4.27 L (4.30-5.90) m/uL Hgb 11.7 L (13.0-17.5) gm/dL MCHC 29.3 L (31.0-37.0) g/dL RDW 16.6 H (11.5-15.5) % Neutrophils # 22.9 H (1.3-7.7) k/uL Monocytes # 1.3 H (0-1.0) k/uL PT (9.0-12.0) sec INR (<1.2) ABG pH (7.35-7.45) ABG pCO2 (35-45) mmHg ABG HCO3 (21-25) mmol/L ABG Total CO2 (19-24) mmol/L Hemoglobin (13.0-17.5) gm/dL Chloride 114 H (98-107) mmol/L Carbon Dioxide 13 L (22-30) mmol/L BUN 60 H (9-20) mg/dL Creatinine 4.66 H (0.66-1.25) mg/dL Glucose 133 H (74-99) mg/dL POC Glucose (mg/dL) 135 H (70-110) mg/dL Calcium 7.2 L (8.4-10.2) mg/dL AST 14 L (17-59) U/L Total Protein 4.9 L (6.3-8.2) g/dL Albumin 2.0 L (3.5-5.0) g/dL Microbiology - Last 24 Hours (Table) 02/04/22 09:39 Blood Culture - Preliminary Blood No Growth after 96 hours 02/04/22 09:39 Blood Culture - Preliminary Blood No Growth after 96 hours 02/05/22 23:55 Gram Stain - Preliminary Sputum Sputum Culture - Preliminary Gram Neg Bacilli Lynda albicans Assessment and Plan Assessment: Assessment Acute on chronic respiratory failure Metabolic encephalopathy Septic shock Persistent atrial fibrillation Multiple comorbid conditions Plan Continue holding Coumadin The patient is in process of having dialysis catheter placement Continue the current dose of amiodarone Follow-up the patient
--- NOTE | 2022-02-09 07:30 | XR ---
EXAMINATION TYPE: XR chest 1V portable DATE OF EXAM: 02/09/2022 5:51 AM COMPARISON: Chest radiographs from 02/08/2022. TECHNIQUE: XR chest 1V portable Frontal view of the chest. CLINICAL INDICATION:Male, 61 years old with history of Tube placement; FINDINGS: Lungs/Pleura: Redemonstration of bibasilar airspace opacities and pleural effusions. No pneumothorax. Pulmonary vascularity: Mild pulmonary vascular congestion. Heart/mediastinum: Cardiomediastinal silhouette is enlarged and stable. Musculoskeletal: No acute osseous pathology. Lines/Tubes: Stable endotracheal tube, nasogastric tube, and right clavian central venous catheter. IMPRESSION: 1. Overall similar CHF exacerbation with cardiomegaly and mild pulmonary vascular congestion and sma ll to moderate-sized bilateral pleural effusions. 2. Stable support lines and tubes.
--- NOTE | 2022-02-09 07:33 | P.GSCN ---
History of Present Illness History of present illness: 61-year-old gentleman patient has a acute kidney injury due to sepsis I was consulted for placement of dialysis catheter patient has history of atrial fibrillation on Coumadin patient INR is 3.1 and creatinine is 4.3 patient has been intubated we'll hold the Coumadin we will discuss cusp with nephrology and there repeat the PT INR patient also has history of diabetes hypertension. Patient has been intubated 6 Patient seen in the room patient has has been intubated patient has a bilateral crackles in the lung base Abdomen is soft nontender Vascular femorals are 1+ patient has a wound on his right ankle Plan is patient is an had is high we'll discuss with nephrology if patient needs vitamin K as needed urgently we will place a catheter follow with you Past Medical History Past Medical History: COPD, Diabetes Mellitus, Hyperlipidemia, Hypertension Additional Past Medical History / Comment(s): back problems, TB History of Any Multi-Drug Resistant Organisms: None Reported Additional Past Surgical History / Comment(s): plate in skull, neck surgery Past Anesthesia/Blood Transfusion Reactions: No Reported Reaction Past Psychological History: No Psychological Hx Reported Smoking Status: Current every day smoker, Heavy tobacco smoker Past Alcohol Use History: None Reported Past Drug Use History: Marijuana Medications and Allergies Home Medications Medication Instructions Recorded Confirmed Type Pregabalin [Lyrica] 200 mg PO BID #6 cap 08/28/17 01/31/22 Rx Albuterol Inhaler [Ventolin Hfa 2 puff INHALATION RT-Q6H PRN 01/31/22 01/31/22 History Inhaler] Albuterol Nebulized [Ventolin 2.5 mg INHALATION RT-Q6H PRN 01/31/22 01/31/22 History Nebulized] Atorvastatin [Lipitor] 40 mg PO HS 01/31/22 01/31/22 History HYDROcodone/APAP 7.5-325MG [[place] 1 tab PO BID PRN 01/31/22 01/31/22 History 7.5-325] Metoprolol Tartrate [Lopressor] 50 mg PO TID 01/31/22 01/31/22 History Morphine Sulfate ER [Ms Contin] 15 mg PO Q12HR 01/31/22 01/31/22 History Tiotropium [place] [Spiriva] 1 puff INHALATION RT-DAILY 01/31/22 01/31/22 History Warfarin [Coumadin] 2.5 mg PO MOFR@209901/31/22 01/31/22 History Warfarin [Coumadin] 5 mg PO SUTUWETHSA@209901/31/22 01/31/22 History buPROPion XL [Wellbutrin XL] 150 mg PO BID 01/31/22 01/31/22 History glipiZIDE [Glucotrol] 10 mg PO BID 01/31/22 01/31/22 History Allergies Allergy/AdvReac Type Severity Reaction Status Date / Time phenytoin [From Dilantin] Allergy Unknown Verified 01/31/22 11:46 Surgical - Exam Vital Signs Temp Pulse Resp BP Pulse Ox 98.6 F 129 H 20 172/97 93 L 01/31/22 01:03 01/31/22 01:03 01/31/22 01:03 01/31/22 01:03 01/31/22 01:03 Results - Labs 02/09/22 05:25 02/09/22 05:25 Abnormal Lab Results - Last 24 Hours (Table) 02/08/22 02/09/22 02/09/22 Range/Units 23:39 05:15 05:25 WBC (3.8-10.6) k/uL RBC (4.30-5.90) m/uL Hgb (13.0-17.5) gm/dL MCHC (31.0-37.0) g/dL RDW (11.5-15.5) % Neutrophils # (1.3-7.7) k/uL Monocytes # (0-1.0) k/uL PT 32.5 H (9.0-12.0) sec INR 3.3 H (<1.2) ABG pH 7.21 L (7.35-7.45) ABG pCO2 34 L (35-45) mmHg ABG HCO3 14 L (21-25) mmol/L ABG Total CO2 15 L (19-24) mmol/L Hemoglobin 11.7 L (13.0-17.5) gm/dL Chloride (98-107) mmol/L Carbon Dioxide (22-30) mmol/L BUN (9-20) mg/dL Creatinine (0.66-1.25) mg/dL Glucose (74-99) mg/dL POC Glucose (mg/dL) 120 H (70-110) mg/dL Calcium (8.4-10.2) mg/dL AST (17-59) U/L Total Protein (6.3-8.2) g/dL Albumin (3.5-5.0) g/dL 02/09/22 02/09/22 02/09/22 Range/Units 05:25 05:25 05:27 WBC 26.5 H (3.8-10.6) k/uL RBC 4.27 L (4.30-5.90) m/uL Hgb 11.7 L (13.0-17.5) gm/dL MCHC 29.3 L (31.0-37.0) g/dL RDW 16.6 H (11.5-15.5) % Neutrophils # 22.9 H (1.3-7.7) k/uL Monocytes # 1.3 H (0-1.0) k/uL PT (9.0-12.0) sec INR (<1.2) ABG pH (7.35-7.45) ABG pCO2 (35-45) mmHg ABG HCO3 (21-25) mmol/L ABG Total CO2 (19-24) mmol/L Hemoglobin (13.0-17.5) gm/dL Chloride 114 H (98-107) mmol/L Carbon Dioxide 13 L (22-30) mmol/L BUN 60 H (9-20) mg/dL Creatinine 4.66 H (0.66-1.25) mg/dL Glucose 133 H (74-99) mg/dL POC Glucose (mg/dL) 135 H (70-110) mg/dL Calcium 7.2 L (8.4-10.2) mg/dL AST 14 L (17-59) U/L Total Protein 4.9 L (6.3-8.2) g/dL Albumin 2.0 L (3.5-5.0) g/dL Microbiology - Last 24 Hours (Table) 02/04/22 09:39 Blood Culture - Preliminary Blood No Growth after 96 hours 02/04/22 09:39 Blood Culture - Preliminary Blood No Growth after 96 hours 02/05/22 23:55 Gram Stain - Preliminary Sputum Sputum Culture - Preliminary Gram Neg Bacilli Lynda albicans Diabetes panel 02/09/22 Range/Units 05:25 Sodium 140 (137-145) mmol/L Potassium 4.8 (3.5-5.1) mmol/L Chloride 114 H (98-107) mmol/L Carbon Dioxide 13 L (22-30) mmol/L BUN 60 H (9-20) mg/dL Creatinine 4.66 H (0.66-1.25) mg/dL Glucose 133 H (74-99) mg/dL Calcium 7.2 L (8.4-10.2) mg/dL AST 14 L (17-59) U/L ALT <6 (4-49) U/L Alkaline Phosphatase 121 (38-126) U/L Total Protein 4.9 L (6.3-8.2) g/dL Albumin 2.0 L (3.5-5.0) g/dL Calcium panel 02/09/22 Range/Units 05:25 Calcium 7.2 L (8.4-10.2) mg/dL Albumin 2.0 L (3.5-5.0) g/dL Pituitary panel 02/09/22 Range/Units 05:25 Sodium 140 (137-145) mmol/L Potassium 4.8 (3.5-5.1) mmol/L Chloride 114 H (98-107) mmol/L Carbon Dioxide 13 L (22-30) mmol/L BUN 60 H (9-20) mg/dL Creatinine 4.66 H (0.66-1.25) mg/dL Glucose 133 H (74-99) mg/dL Calcium 7.2 L (8.4-10.2) mg/dL Adrenal panel 02/09/22 Range/Units 05:25 Sodium 140 (137-145) mmol/L Potassium 4.8 (3.5-5.1) mmol/L Chloride 114 H (98-107) mmol/L Carbon Dioxide 13 L (22-30) mmol/L BUN 60 H (9-20) mg/dL Creatinine 4.66 H (0.66-1.25) mg/dL Glucose 133 H (74-99) mg/dL Calcium 7.2 L (8.4-10.2) mg/dL Total Bilirubin 0.6 (0.2-1.3) mg/dL AST 14 L (17-59) U/L ALT <6 (4-49) U/L Alkaline Phosphatase 121 (38-126) U/L Total Protein 4.9 L (6.3-8.2) g/dL Albumin 2.0 L (3.5-5.0) g/dL
[2022-02-09] MEDS: IPRATROPIUM-ALBUTEROL 3 ML NEB INHALATION SCH ×4 (07:42→19:28)
[2022-02-09] MEDS: BUDESONIDE 1 MG/2 ML NEBU INHALATION SCH ×2 (07:42→20:05)
[2022-02-09] MEDS ORDERED: SODIUM BICARB 8.4% 50 ML SYR (1 MEQ/ML) IV STA (08:39)
--- NOTE | 2022-02-09 08:54 | P.PN ---
Subjective Patient is seen in follow-up for acute kidney injury. Renal function continues to worsen. Urine output 5-20 mL an hour. Intubated. On Levophed. Receiving tube feeds. Also normal saline. Vital signs are stable. On Levophed. General: Resting in bed. HEENT: Intubated. LUNGS: Breath sounds decreased. HEART: Rate and Rhythm are regular. ABDOMEN: Soft, no distention. EXTREMITITES: Trace edema. Objective - Vital Signs Vital signs: Vital Signs Temp 98.7 F 02/09/22 04:00 Pulse 90 02/09/22 07:54 Resp 24 02/09/22 07:00 BP 112/64 02/09/22 07:00 Pulse Ox 95 02/09/22 07:00 FiO2 40 02/09/22 07:26 Intake & Output 02/08/22 02/09/22 02/09/22 18:59 06:59 18:59 Intake Total 2583.351 2011.257 Output Total 165 280 Balance 2418.351 1731.257 Weight 138.5 kg Intake: IV 962 978 Cefepime 1 gm In Sodium 100 350 Chloride 0.9% 50 ml @ 12. 5 mls/hr IVPB Q12HR [facility] Rx#:[id number] Pressure bags 72 78 Sodium Chloride 0.9% 1, 590 350 000 ml @ 50 mls/hr IV . Q20H [facility] Rx#:[id number] levETIRAcetam IV 500 mg 100 In Sodium Chloride 0.9% 100 ml @ 400 mls/hr IVPB DAILY [facility] Rx#:[id number] metroNIDAZOLE-NS PMX 500 200 100 mg In Saline 1 100ml.bag @ 100 mls/hr IVPB Q8HR [facility] Rx#:[id number] Intake, IV Titration 1133.351 637.257 Amount Norepinephrine 4 mg In 417.479 408.153 Sodium Chloride 0.9% 250 ml @ 0.05 MCG/KG/MIN 25. 908 mls/hr IV .Q9H49M [facility] Rx#:[id number] Sodium Chloride 0.9% 500 500 ml 500 ml @ 999 mls/hr IV .Q31M [facility] Rx#:[id number] propofoL 1,000 mg In 215.872 229.104 Empty Bag 1 bag @ 5 MCG/ KG/MIN 4.08 mls/hr IV . Q24H [facility] Rx#:[id number] Tube Feeding 363 396 Other 125 Output: Urine 165 280 Other: Voiding Method Indwelling Catheter Indwelling Catheter ABP, PAP, CO, CI - Last Documented Arterial Blood Pressure 139/57 - Labs CBC & Chem 7: 02/09/22 05:25 02/09/22 05:25 Labs: Abnormal Lab Results - Last 24 Hours (Table) 02/08/22 02/09/22 02/09/22 Range/Units 23:39 05:15 05:25 WBC (3.8-10.6) k/uL RBC (4.30-5.90) m/uL Hgb (13.0-17.5) gm/dL MCHC (31.0-37.0) g/dL RDW (11.5-15.5) % Neutrophils # (1.3-7.7) k/uL Monocytes # (0-1.0) k/uL PT 32.5 H (9.0-12.0) sec INR 3.3 H (<1.2) ABG pH 7.21 L (7.35-7.45) ABG pCO2 34 L (35-45) mmHg ABG HCO3 14 L (21-25) mmol/L ABG Total CO2 15 L (19-24) mmol/L Hemoglobin 11.7 L (13.0-17.5) gm/dL Chloride (98-107) mmol/L Carbon Dioxide (22-30) mmol/L BUN (9-20) mg/dL Creatinine (0.66-1.25) mg/dL Glucose (74-99) mg/dL POC Glucose (mg/dL) 120 H (70-110) mg/dL Calcium (8.4-10.2) mg/dL AST (17-59) U/L Total Protein (6.3-8.2) g/dL Albumin (3.5-5.0) g/dL 02/09/22 02/09/22 02/09/22 Range/Units 05:25 05:25 05:27 WBC 26.5 H (3.8-10.6) k/uL RBC 4.27 L (4.30-5.90) m/uL Hgb 11.7 L (13.0-17.5) gm/dL MCHC 29.3 L (31.0-37.0) g/dL RDW 16.6 H (11.5-15.5) % Neutrophils # 22.9 H (1.3-7.7) k/uL Monocytes # 1.3 H (0-1.0) k/uL PT (9.0-12.0) sec INR (<1.2) ABG pH (7.35-7.45) ABG pCO2 (35-45) mmHg ABG HCO3 (21-25) mmol/L ABG Total CO2 (19-24) mmol/L Hemoglobin (13.0-17.5) gm/dL Chloride 114 H (98-107) mmol/L Carbon Dioxide 13 L (22-30) mmol/L BUN 60 H (9-20) mg/dL Creatinine 4.66 H (0.66-1.25) mg/dL Glucose 133 H (74-99) mg/dL POC Glucose (mg/dL) 135 H (70-110) mg/dL Calcium 7.2 L (8.4-10.2) mg/dL AST 14 L (17-59) U/L Total Protein 4.9 L (6.3-8.2) g/dL Albumin 2.0 L (3.5-5.0) g/dL Microbiology - Last 24 Hours (Table) 02/05/22 23:55 Gram Stain - Final Sputum Sputum Culture - Final Stenotrophomonas maltophilia Lynda albicans 02/04/22 09:39 Blood Culture - Preliminary Blood No Growth after 96 hours 02/04/22 09:39 Blood Culture - Preliminary Blood No Growth after 96 hours Assessment and Plan Plan: Assessment: 1. Acute kidney injury secondary to ATN secondary to septic shock. Creatinine 4.66 today. Urine output 5-20 mL an hour. Creatinine in April 2019 was 0.8. Creatinine was as low as 1.62 this admission. No hydronephrosis noted on CAT scan. 2. MSSA bacteremia with likely source being right foot ulcer. ID following. On antibiotics. 3. A. fib. Cardiology following. 4. Metabolic acidosis secondary to acute kidney injury and IV fluids. 5. Diabetes mellitus. Plan: Hemodialysis today and again tomorrow. Awaits dialysis catheter placement. Stop normal saline. Start sodium bicarbonate drip at 50 mL an hour. 2 A of sodium bicarb IV push now. Maintain tube feeds. Wean FiO2 and vasopressors. Continue to monitor for renal recovery.
[2022-02-09] MEDS ORDERED: SODIUM BICARB 8.4% 50 ML SYR (1 MEQ/ML) ONE (09:49)
[2022-02-09] MEDS: CHLORHEXIDINE GLUCONATE 15 ML CUP MUCOUS MEM SCH ×2 (09:54→20:44)
[2022-02-09] MEDS: SODIUM BICARBONATE TAB 650 MG TAB PO SCH ×4 (09:54→22:13)
[2022-02-09] MEDS: NICOTINE 21MG/24HR PATCH TRANSDERM SCH (09:54)
[2022-02-09] MEDS: PANTOPRAZOLE 40 MG/10 ML VIAL IVP SCH ×2 (09:54→20:44)
[2022-02-09] MEDS: METOPROLOL TARTRATE 25 MG TAB PO SCH ×3 (09:54→20:45)
[2022-02-09] MEDS: PREGABALIN 100 MG CAP PO SCH ×2 (09:55→20:43)
[2022-02-09] MEDS: TAMSULOSIN 0.4 MG CAP.ER.24H PO SCH (09:55)
[2022-02-09] MEDS: AMIODARONE 200 MG TAB PO SCH ×2 (09:55→20:43)
[2022-02-09] MEDS: guaiFENesin 600 MG TABLET.ER PO SCH ×4 (09:55→22:13)
[2022-02-09] MEDS: DEXTROSE 5% IN WATER 1,000 ML with SODIUM BICARB (1 MEQ/ML) 150 ML IV SCH (09:56)
[2022-02-09] MEDS: CEFEPIME 1 GM in SODIUM CHLORIDE 0.9% 50 ML IVPB SCH ×2 (09:56→20:43)
[2022-02-09] MEDS: COLLAGENASE 250 UNIT/GM OINTMENT 30 GM TUBE TOPICAL SCH (10:03)
[2022-02-09] MEDS ORDERED: PHYTONADIONE 5 MG in SODIUM CHLORIDE 0.9% 50 ML IVPB STA (10:48)
[2022-02-09] MEDS: levETIRAcetam IV 500 MG in SODIUM CHLORIDE 0.9% 100 ML IVPB SCH (11:08)
--- NOTE | 2022-02-09 11:12 | P.PN ---
Subjective Progress Note Date: 02/09/22 Principal diagnosis: Respiratory failure. Patient was reevaluated today on 02/06/22, remains in the ICU, intubated and mechanically ventilated. Patient is sedated, his ventilator settings are assist control rate of 24 tidal volume 500 FiO2 45% and PEEP of 5. ABG showed a pO2 of 85 pCO2 37 pH of 7.37 patient had worsening urine output and worsening renal status overnight, received almost 4 L of fluids, continue to have low urine output and this morning he received 80 mg of Lasix IV push. CVP continues to read the low below 7. His endotracheal tube was noted to be sitting high in the trachea and it will be advanced about 3 cm. Patient remains on propofol at 40 mcg/kg/m IV fluids/normal saline at 100 mL per hour norepinephrine at 0.02 mcg/kg/m today I recommended a nephrology consultation and the patient will be undergoing CT of the abdomen for ileus. The CT of the abdomen showed mild to moderate circumferential wall thickening of the cecum and ascending colon pos sible nonspecific infectious or inflammatory colitis. There was also distention of the rectum up to 7.5 cm with solid stool. Patient is developing fecal impaction. There is also the possibility of perianal fistula noted on the CT of the abdomen and pelvis. Blood cultures from 97 and 98 are negative so far. Previous blood cultures from 01/31 hence 02/01 were positive for staph aureus Patient was reevaluated today on 02/07/22, patient remains in the ICU, intubated and mechanically ventilated. Patient is on assist control rate of 24 tidal volume 500 FiO2 45% PEEP of 5 ABG showed a pO2 of 79 pCO2 36 pH of 7.33. Continues to have very low urine output, renal functioning seems to be getting worse, and nephrology as on consultation, today I cut down his IV fluid to 50 mL/h and I gave him a dose of Lasix 80 mg IV push. Again his urine output is extremely marginal. Patient is off norepinephrine today blood pressure seems to be better controlled. He is on propofol at 30 mcg/kg/m IV fluid cut down to 50 mL/h and he is on tube feeding. No changes were made today for his ventilator settings chest x-ray continues to show small bilateral patchy airspace disease, and possibly some component of pleural effusion is noted bilaterally. WBC count is 18.5 hemoglobin 11.6. INR is 2.2 electrolytes are normal bicarb is 18 BUN is 49, and 3.73 creatinine up from yesterday Patient was reevaluated today on , remains in the ICU intubated mechanically ventilated, sedated, his ventilator settings are assist control rate 24 tidal volume 500 FiO2 40% PEEP of 5 ABG showed a pO2 of 95 pCO2 34 pH of 7.28, reflecting a mild metabolic acidosis most likely secondary to his worsening renal failure his creatinine is up to 4.36 today. Patient does respond to diuretics, however I believe the patient is clinically dry, and I'm recommending fluid boluses today, 500 mL of saline intermittently patient has a good urine output, especially after Lasix. Otherwise his urine output is poor. CVP remains low, chest x-ray is showing improvement in his fluid overload, hence I'm recommending fluid boluses to be given today. Patient remains on antibiotics for his MSSA infection he is on cefepime is also on Flagyl. Today I'm recommending that the patient goes off propofol and to be able to get adeq uate mental assessment. He is requiring to small dose of norepinephrine 0.05 mcg/kg/m, and I'm hoping with fluid boluses we could potentially discontinue norepinephrine today. Again chest x-ray is showing slight improvement. And I plan to stop propofol today. Patient was seen by nephrology and considering starting hemodialysis in the next 24 or 48 hours. They are consulting vascular surgery for dialysis catheter placement. WBC count today is 23.6 hemoglobin is 11.1 INR is 3.0 electrolytes are normal except for low bicarb of 14, BUN is 54 creatinine 4.36. Progress note dated 02/09/2022. This is a 61-year-old male who was admitted on January 31, for atrial fibrillation and cellulitis. On February 05, he was intubated for respiratory failure. The patient remains on the ventilator. Currently, she is on the volume assist control, with a rate of 24, tidal volume 500, FiO2 40%, and PEEP of 5. Arterial blood gases show pO2 of 90, pCO2 pH of 7.21. His blood gases are consistent with metabolic acidosis. The patient will be started on a bicarbonate drip, with 3 ampules of sodium bicarbonate and D5W at 50 mL an hour. The patient is also on norepinephrine at 21 mcg/m, and propofol at 40 mcg/kg/m. The patient's getting vital HP at 33 mL an hour, which is goal. The patient remains on Flagyl and cefepime. A hemodialysis catheter will be placed today. White count 26.5, hemoglobin 11.7, hematocrit 40, and platelet count 201,000. PTT is 32.5 with an INR 3.3. Sodium 140, potassium 4.8, chlorides 114, CO2 13, anion gap 13, BUN 60, and creatinine 4.66. Albumin is 2. Sputum sampling from February 05 show stenotrophomonas. Blood cultures from February 01 are positive for staph aureus. Chest x-ray shows a pattern of CHF, cardiomegaly, small to moderate effusions, and pulmonary vascular congestion. Objective - Vital Signs Vital signs: Vital Signs Temp 98.7 F 02/09/22 04:00 Pulse 90 02/09/22 07:54 Resp 24 02/09/22 07:00 BP 112/64 02/09/22 07:00 Pulse Ox 95 02/09/22 07:00 FiO2 40 02/09/22 10:45 Intake & Output 02/08/22 02/09/22 02/09/22 18:59 06:59 18:59 Intake Total 2583.351 2011.257 187.060 Output Total 165 280 Balance 2418.351 1731.257 187.060 Weight 138.5 kg 138.5 kg Intake: IV 962 978 Cefepime 1 gm In Sodium 100 350 Chloride 0.9% 50 ml @ 12. 5 mls/hr IVPB Q12HR [facility] Rx#:[id number] Pressure bags 72 78 Sodium Chloride 0.9% 1, 590 350 000 ml @ 50 mls/hr IV . Q20H [facility] Rx#:[id number] levETIRAcetam IV 500 mg 100 In Sodium Chloride 0.9% 100 ml @ 400 mls/hr IVPB DAILY [facility] Rx#:[id number] metroNIDAZOLE-NS PMX 500 200 100 mg In Saline 1 100ml.bag @ 100 mls/hr IVPB Q8HR [facility] Rx#:[id number] Intake, IV Titration 1133.351 637.257 187.060 Amount Norepinephrine 32 mg In 96.212 Sodium Chloride 0.9% 218 ml @ 0.05 MCG/KG/MIN 3. 246 mls/hr IV .Q24H [facility] Rx#:[id number] Norepinephrine 4 mg In 417.479 408.153 Sodium Chloride 0.9% 250 ml @ 0.05 MCG/KG/MIN 25. 908 mls/hr IV .Q9H49M [facility] Rx#:[id number] Sodium Chloride 0.9% 500 500 ml 500 ml @ 999 mls/hr IV .Q31M [facility] Rx#:[id number] propofoL 1,000 mg In 215.872 229.104 90.848 Empty Bag 1 bag @ 5 MCG/ KG/MIN 4.08 mls/hr IV . Q24H [facility] Rx#:[id number] Tube Feeding 363 396 Other 125 Output: Urine 165 280 Other: Voiding Method Indwelling Catheter Indwelling Catheter ABP, PAP, CO, CI - Last Documented Arterial Blood Pressure 139/57 - Exam No acute distress, sedated, with an orally placed endotracheal tube. He has a transnasal NG tube. HEENT examination is grossly unremarkable. Neck supple. Full range of motion. No adenopathy thyromegaly or neck vein distention. Cardiovascular examination reveals an irregular rhythm. S1-S2 normal. No S3 or S4. No discernible murmur noted. Lungs reveal bibasilar crackles. Rhonchi are noted. No wheezes. Breath sounds are equal bilaterally. Abdomen obese, bowel sounds. No masses. Extremities are intact. No cyanosis clubbing or edema. Skin reveals a large around the lateral malleolus of the right foot with gangrenous changes. Neurologic examination cannot be properly assessed as the patient's currently sedated. - Labs CBC & Chem 7: 02/09/22 05:25 02/09/22 05:25 Labs: Abnormal Lab Results - Last 24 Hours (Table) 02/08/22 02/09/22 02/09/22 Range/Units 23:39 05:15 05:25 WBC (3.8-10.6) k/uL RBC (4.30-5.90) m/uL Hgb (13.0-17.5) gm/dL MCHC (31.0-37.0) g/dL RDW (11.5-15.5) % Neutrophils # (1.3-7.7) k/uL Monocytes # (0-1.0) k/uL PT 32.5 H (9.0-12.0) sec INR 3.3 H (<1.2) ABG pH 7.21 L (7.35-7.45) ABG pCO2 34 L (35-45) mmHg ABG HCO3 14 L (21-25) mmol/L ABG Total CO2 15 L (19-24) mmol/L Hemoglobin 11.7 L (13.0-17.5) gm/dL Chloride (98-107) mmol/L Carbon Dioxide (22-30) mmol/L BUN (9-20) mg/dL Creatinine (0.66-1.25) mg/dL Glucose (74-99) mg/dL POC Glucose (mg/dL) 120 H (70-110) mg/dL Calcium (8.4-10.2) mg/dL AST (17-59) U/L Total Protein (6.3-8.2) g/dL Albumin (3.5-5.0) g/dL 02/09/22 02/09/22 02/09/22 Range/Units 05:25 05:25 05:27 WBC 26.5 H (3.8-10.6) k/uL RBC 4.27 L (4.30-5.90) m/uL Hgb 11.7 L (13.0-17.5) gm/dL MCHC 29.3 L (31.0-37.0) g/dL RDW 16.6 H (11.5-15.5) % Neutrophils # 22.9 H (1.3-7.7) k/uL Monocytes # 1.3 H (0-1.0) k/uL PT (9.0-12.0) sec INR (<1.2) ABG pH (7.35-7.45) ABG pCO2 (35-45) mmHg ABG HCO3 (21-25) mmol/L ABG Total CO2 (19-24) mmol/L Hemoglobin (13.0-17.5) gm/dL Chloride 114 H (98-107) mmol/L Carbon Dioxide 13 L (22-30) mmol/L BUN 60 H (9-20) mg/dL Creatinine 4.66 H (0.66-1.25) mg/dL Glucose 133 H (74-99) mg/dL POC Glucose (mg/dL) 135 H (70-110) mg/dL Calcium 7.2 L (8.4-10.2) mg/dL AST 14 L (17-59) U/L Total Protein 4.9 L (6.3-8.2) g/dL Albumin 2.0 L (3.5-5.0) g/dL Microbiology - Last 24 Hours (Table) 02/05/22 23:55 Gram Stain - Final Sputum Sputum Culture - Final Stenotrophomonas maltophilia Lynda albicans 02/04/22 09:39 Blood Culture - Preliminary Blood No Growth after 96 hours 02/04/22 09:39 Blood Culture - Preliminary Blood No Growth after 96 hours Assessment and Plan Assessment: Acute hypercapnic respiratory failure. Acute metabolic encephalopathy. Right sided rib fractures, traumatic, secondary to a fall. Right-sided pulmonary contusion. Anterior wedge compression fracture, L1. Hemoptysis, secondary to pulmonary contusion. COPD from chronic tobacco use. Coumadin toxicity. Chronic atrial fibrillation. Chronic kidney disease, stage III. Stage II right ankle wound, status post debridement. Diabetic peripheral neuropathy. History of kidney stones. Nonspecific colitis. Plan: Plan dated 02/09/2022. We will continue ventilatory support. The patient will have a daily in terruption of sedation. The patient remains on Flagyl and cefepime. Culture data is reviewed. Continue GI and DVT prophylaxis. Prognosis is guarded. Labs, x-rays, and medications are all reviewed. We will continue to follow make recommendations along the way. The patient continues on amiodarone. Time with Patient: Greater than 30
--- NOTE | 2022-02-09 11:23 | P.PN ---
Subjective Progress Note Date: 02/09/22 CHIEF COMPLAINT: Upper GI bleeding HISTORY OF PRESENT ILLNESS: Patient is intubated and mechanical ventilation on in the ICU. Patient is undergoing a sedation holiday today. He is scheduled for hemodialysis catheter placement today. He is on tube feeds at 33 per hour currently on hold during his sedation holiday. He was having higher residuals of 260-290 mL. No further bowel movements reported since patient was disimpacted on Wednesday. Afebrile. WBC 23.6 up to 20 6.5H she be 11.7 platelets 201 INR 3.3 sodium 140 CO2 is 13 creatinine 4.66 PHYSICAL EXAM: VITAL SIGNS: Reviewed. ABDOMEN: Softer. less Distended NEUROLOGIC: Intubated, able to open eyes ASSESSMENT: 1. Upper GI bleed resolved 2. Ileus 3. Fecal impaction 4. Altered mental status 5. Leukocytosis PLAN: -Continue ICU management -Continue supportive care -Continue to monitor -Continue NG tube for decompression -Keep patient nothing by mouth except for medications -Further recommendations forthcoming per surgeon Physician Vascular Ultrasound Technician note has been reviewed by physician. Signing provider agrees with the documented findings, assessment, and plan of care. I have personally seen and examined the patient, reviewed the DURABILITY TECHNICIAN /PAs history, exam and MDM and agree with the assessment and plan as written. Based on total visit time, I have performed more than 50% of the visit. As above: Patient remains on the ventilator. He is back on pressors and his white blood cell count has increased at this time. Patient's kidney function has declined and he is going to have a dialysis catheter possibly placed today by vascular surgery. He is tolerating tube feeds at this time. No stools since his disimpaction. Continue tube feeds for now. Repeat abdominal x-rays tomorrow. We'll follow. Objective - Vital Signs Vital signs: Vital Signs Temp 98.7 F 02/09/22 04:00 Pulse 101 H 02/09/22 11:08 Resp 24 02/09/22 07:00 BP 112/64 02/09/22 07:00 Pulse Ox 95 02/09/22 07:00 FiO2 40 02/09/22 10:45 Intake & Output 02/08/22 02/09/22 02/09/22 18:59 06:59 18:59 Intake Total 2583.351 2011.257 187.060 Output Total 165 280 Balance 2418.351 1731.257 187.060 Weight 138.5 kg 138.5 kg Intake: IV 962 978 Cefepime 1 gm In Sodium 100 350 Chloride 0.9% 50 ml @ 12. 5 mls/hr IVPB Q12HR [facility] Rx#:[id number] Pressure bags 72 78 Sodium Chloride 0.9% 1, 590 350 000 ml @ 50 mls/hr IV . Q20H [facility] Rx#:[id number] levETIRAcetam IV 500 mg 100 In Sodium Chloride 0.9% 100 ml @ 400 mls/hr IVPB DAILY [facility] Rx#:[id number] metroNIDAZOLE-NS PMX 500 200 100 mg In Saline 1 100ml.bag @ 100 mls/hr IVPB Q8HR [facility] Rx#:[id number] Intake, IV Titration 1133.351 637.257 187.060 Amount Norepinephrine 32 mg In 96.212 Sodium Chloride 0.9% 218 ml @ 0.05 MCG/KG/MIN 3. 246 mls/hr IV .Q24H [facility] Rx#:[id number] Norepinephrine 4 mg In 417.479 408.153 Sodium Chloride 0.9% 250 ml @ 0.05 MCG/KG/MIN 25. 908 mls/hr IV .Q9H49M [facility] Rx#:[id number] Sodium Chloride 0.9% 500 500 ml 500 ml @ 999 mls/hr IV .Q31M [facility] Rx#:[id number] propofoL 1,000 mg In 215.872 229.104 90.848 Empty Bag 1 bag @ 5 MCG/ KG/MIN 4.08 mls/hr IV . Q24H [facility] Rx#:[id number] Tube Feeding 363 396 Other 125 Output: Urine 165 280 Other: Voiding Method Indwelling Catheter Indwelling Catheter ABP, PAP, CO, CI - Last Documented Arterial Blood Pressure 139/57 - Labs CBC & Chem 7: 02/09/22 05:25 02/09/22 05:25 Labs: Abnormal Lab Results - Last 24 Hours (Table) 02/08/22 02/09/22 02/09/22 Range/Units 23:39 05:15 05:25 WBC (3.8-10.6) k/uL RBC (4.30-5.90) m/uL Hgb (13.0-17.5) gm/dL MCHC (31.0-37.0) g/dL RDW (11.5-15.5) % Neutrophils # (1.3-7.7) k/uL Monocytes # (0-1.0) k/uL PT 32.5 H (9.0-12.0) sec INR 3.3 H (<1.2) ABG pH 7.21 L (7.35-7.45) ABG pCO2 34 L (35-45) mmHg ABG HCO3 14 L (21-25) mmol/L ABG Total CO2 15 L (19-24) mmol/L Hemoglobin 11.7 L (13.0-17.5) gm/dL Chloride (98-107) mmol/L Carbon Dioxide (22-30) mmol/L BUN (9-20) mg/dL Creatinine (0.66-1.25) mg/dL Glucose (74-99) mg/dL POC Glucose (mg/dL) 120 H (70-110) mg/dL Calcium (8.4-10.2) mg/dL AST (17-59) U/L Total Protein (6.3-8.2) g/dL Albumin (3.5-5.0) g/dL 02/09/22 02/09/22 02/09/22 Range/Units 05:25 05:25 05:27 WBC 26.5 H (3.8-10.6) k/uL RBC 4.27 L (4.30-5.90) m/uL Hgb 11.7 L (13.0-17.5) gm/dL MCHC 29.3 L (31.0-37.0) g/dL RDW 16.6 H (11.5-15.5) % Neutrophils # 22.9 H (1.3-7.7) k/uL Monocytes # 1.3 H (0-1.0) k/uL PT (9.0-12.0) sec INR (<1.2) ABG pH (7.35-7.45) ABG pCO2 (35-45) mmHg ABG HCO3 (21-25) mmol/L ABG Total CO2 (19-24) mmol/L Hemoglobin (13.0-17.5) gm/dL Chloride 114 H (98-107) mmol/L Carbon Dioxide 13 L (22-30) mmol/L BUN 60 H (9-20) mg/dL Creatinine 4.66 H (0.66-1.25) mg/dL Glucose 133 H (74-99) mg/dL POC Glucose (mg/dL) 135 H (70-110) mg/dL Calcium 7.2 L (8.4-10.2) mg/dL AST 14 L (17-59) U/L Total Protein 4.9 L (6.3-8.2) g/dL Albumin 2.0 L (3.5-5.0) g/dL Microbiology - Last 24 Hours (Table) 02/05/22 23:55 Gram Stain - Final Sputum Sputum Culture - Final Stenotrophomonas maltophilia Lynda albicans 02/04/22 09:39 Blood Culture - Preliminary Blood No Growth after 96 hours 02/04/22 09:39 Blood Culture - Preliminary Blood No Growth after 96 hours
[2022-02-09 12:05] LABS: Glucose,Whole Blood 121 mg/dL (70-110)
--- NOTE | 2022-02-09 13:13 | P.PN ---
Progress Note - Text Progress Note Date: 02/09/22 This is a 61-year-old patient who follows with Dr. Sridhar Chan. Chronic stable medical conditions include diabetes, hypertension, hyperlipidemia, chronic low back problems, cigarette smoker. At the baseline uses a walker. Patient slipped in the bathroom falling on his buttock. Was not able to get up. By the EMS report he had fallen 24 hours prior to the picking him up. Patient been complaining of pain in the right rib cage in the lower back. X-ray was negative for fracture. Patient continued to have significant pain especially with deep breathing. Patient also had a congestive cough and wheezing. Some bloody sputum. Denies any fever and chills. Patient also complaining of urina ry retention and requesting a Shepard catheter. at the bedside. No fever no chills. Orthopedics consulted for the same. Patient normally has a bowel movement once a week. Patient also has a wound on the right foot lateral part of the ankles for about a week. Ischemic changes. From rubbing against a bedpost. Patient's INR in the ER was greater than 10. Was given vitamin K. 10 mg Patient bit with Coumadin toxicity, given vitamin K, acute COPD exacerbation, uncontrolled atrial flutter put on Lopressor, right chest wall pain. Computed tomography scan lumbar spine and chest was ordered. Large wound on the right lateral malleolus-ID and vascular consulted.. IV cefepime. February 01: Patient yesterday to see refused his computed tomography scan of the chest and lumbar spine. Done today. Right-sided rib fractures, pulmonary contusion confirm. L1 vertebral body 30% wedge compression fracture. Patient's girlfriend the bedside. It was discussed in detail with her. Patient wanting again and again to pull out his NG tube. Requests the to stay with the patient. Patient is also had the dark aspirate from the stomach for which she has NG tube. Surgery was consulted for the same. Also this morning right foot wound was debrided by Dr. Ibarra from vascular. Wound base was relatively clean. No undermining or tunneling. February 02: Delirious. NG tube to suction. Has been in restraints because point NG TUBE several times. Mumbling to himself. Dressing over the right ankle. Not in distress. Ileus. Chest x-ray showing right lower lobe/atelectasis. February 03: Hospital computer system was down. Patient remains delirious. Nasal cannula. Lethargic. Family the bedside. Antibiotics. A. fib uncontrolled. EEG evidence of metabolic encephalopathy. No clear-cut epileptiform activity. Started on Keppra by neurology. February 04: ICU: Girlfriend at the bedside. In atrial fibrillation uncontrolled. On IV Cardizem and IV amiodarone. NG tube to suction. Patient lethargic. Multiple breathing. 2 L. Oxygen. February 05: ICU. Atrial fibrillation better controlled this morning. Cardizem discontinued. Patient respiratory status worsened this morning and patient is intubated. FiO2 45 and a PEEP of 5. Atrial fibrillation, controlled. Drips include amiodarone, propofol, levo fed. Discussed with girlfriend the bedside. Understands prognosis guarded. February 06: ICU: Ventilated. FiO2 45 and a PEEP of 5. NG tube is clamped. On IV propofol. Sedated. Heart rate better controlled. Was started on Coumadin yesterday. Worsening renal function. Nephrology consulted. 02/07/2022 Patient is currently in the MICU and on mechanical ventilator. Tidal volume of 400, FiO2 40% and PEEP of 5. Patient is off pressor support today. Currently on propofol and is also on tube feeding. Chest x-ray showed stable exam with stable support lines and tubes. Correlate for congestive heart failure. Patient was given a dose of IV Lasix. Laboratory data showed WBC 18.4 hemoglobin 11.6 and platelets 458 Sodium 141 potassium 3.7 chloride 103 bicarb is 18 BUN 49 and creatinine 3.73 and calcium 7.3. INR is 2.2. Patient is being followed by nephrology cardiology and critical care team. 02/08/2022 Patient is currently on mechanical ventilator and sedated with propofol. Assist control with FiO2 40% and tidal volume of 400 and PEEP of 5. Patient is being continued on antibiotics above cefepime and Flagyl. Sputum gram stain gram-negative bacilli and Lynda. Chest x-ray today showed findings suggestive of slightly worsening CHF exacerbation as there is cardiomegaly with mild to moderate central venous congestion and small to moderate-sized bilateral pleural effusion. Laboratory test showed WBC increased to 23.6 hemoglobin 9.1 and platelets 162 INR 3.0 Sodium 139 potassium 4.3 chloride 113 bicarb is 40 BUN 54 and creatinine worsening to 4.36 Kaylynn 12: I resumed the care of patient today ICU: Med: 40/5. Received vitamin K 5 mg IV to bring the INR down for dialysis catheter. Drips include bicarbonate, propofol, epinephrine. Patient is a stage II coccyx is ulcer. Plan is to change the NG tube to on G-tube today. For possible colitis/fistula on antibiotics. at the bedside. Active Medications Acetaminophen (Acetaminophen Tab 325 Mg Tab) 650 mg PO Q6HR PRN PRN Reason: Mild Pain or Fever > 100.5 Albuterol/Ipratropium (Ipratropium-Albuterol 3 Ml Neb) 3 ml INHALATION RT-QID [facility] Last Admin: 02/09/22 10:59 Dose: 3 ml Amiodarone HCl (Amiodarone 200 Mg Tab) 200 mg PO BID [facility] Last Admin: 02/09/22 09:55 Dose: 200 mg Budesonide (Budesonide 1 Mg/2 Ml Nebu) 1 mg INHALATION RT-BID [facility] Last Admin: 02/09/22 07:42 Dose: 1 mg Calcium Carbonate/Glycine (Calcium Carbonate 500 Mg Chewable) 1,000 mg PO Q4HR PRN PRN Reason: Dyspepsia Last Admin: 01/31/22 14:29 Dose: 1,000 mg Chlorhexidine Gluconate (Chlorhexidine Gluconate 15 Ml Cup) 15 ml MUCOUS MEM BID [facility] Last Admin: 02/09/22 09:54 Dose: 15 ml Collagenase (Collagenase 250 Unit/Gm Ointment 30 Gm Tube) 1 applic TOPICAL DAILY [facility]; Protocol Last Admin: 02/09/22 10:03 Dose: 1 applic Dextrose/Water (Dextrose 50% Syringe 50 Ml) 25 ml IVP PER PROTOCOL PRN; Protocol PRN Reason: Hypoglycemia Last Admin: 02/06/22 18:11 Dose: 25 ml Dextrose/Water (Dextrose 50% Syringe 50 Ml) 50 ml IVP PER PROTOCOL PRN; Protocol PRN Reason: Hypoglycemia Guaifenesin (Guaifenesin 600 Mg Tablet.Er) 600 mg PO QID [facility] Last Admin: 02/09/22 09:55 Dose: 600 mg Hydromorphone HCl (Hydromorphone 0.5 Mg/0.5 Ml Syringe) 0.5 mg IVP Q3HR PRN PRN Reason: Pain Last Admin: 02/03/22 03:43 Dose: 0.5 mg Norepinephrine Bitartrate 4 mg (/ Sodium Chloride) 254 mls @ 25.908 mls/hr IV .Q9H49M [facility]; Protocol Last Titration: 02/09/22 00:24 Dose: 0 mcg/kg/min, 0 mls/hr Propofol 1,000 mg/ IV Solution 100 mls @ 4.08 mls/hr IV .Q24H [facility]; Protocol Last Titration: 02/09/22 12:22 Dose: 25 mcg/kg/min, 20.4 mls/hr Metronidazole 500 mg/ IV (Solution) 100 mls @ 100 mls/hr IVPB Q8HR [facility]; Protocol Last Admin: 02/09/22 10:00 Dose: 100 mls/hr Cefepime HCl 1 gm/ Sodium (Chloride) 50 mls @ 12.5 mls/hr IVPB Q12HR [facility] Last Admin: 02/09/22 09:56 Dose: 12.5 mls/hr Norepinephrine Bitartrate 32 (mg/ Sodium Chloride) 250 mls @ 3.246 mls/hr IV .Q24H [facility]; Protocol Last Titration: 02/09/22 10:24 Dose: 0.1 mcg/kg/min, 6.492 mls/hr Levetiracetam 500 mg/ Sodium (Chloride) 105 mls @ 400 mls/hr IVPB DAILY [facility] Last Admin: 02/09/22 11:08 Dose: 400 mls/hr Sodium Bicarbonate 150 ml/ (Dextrose/Water) 1,150 mls @ 50 mls/hr IV .Q23H [facility] Last Admin: 02/09/22 09:56 Dose: 50 mls/hr Insulin Aspart (Insulin Aspart (Novolog) 100 Unit/Ml Vial) 0 unit SQ Q6HR [facility]; Protocol Last Admin: 02/09/22 12:17 Dose: Not Given Insulin Detemir (Insulin Detemir (Levemir) 100 Unit/Ml Syr) 14 unit SQ HS [facility] Last Admin: 02/08/22 21:23 Dose: Not Given Lactulose (Lactulose 20 Gm/30 Ml Cup) 20 gm PO DAILY PRN PRN Reason: Constipation Last Admin: 02/06/22 15:26 Dose: 20 gm Melatonin (Melatonin 3 Mg Tablet) 3 mg PO HS PRN PRN Reason: Insomnia Metoprolol Tartrate (Metoprolol Tartrate 25 Mg Tab) 25 mg PO BID [facility] Last Admin: 02/09/22 10:02 Dose: Not Given Miscellaneous Information (Potassium Replacement Protocol 1 Each Misc) 1 each MISCELLANE DAILY PRN; Protocol PRN Reason: Per Protocol Miscellaneous Information (Warfarin Per Pharmacy) 1 each MISCELLANE DIRECTED PRN PRN Reason: Per Protocol Miscellaneous Information (Magnesium Replacement Protocol 1 Each Misc) 1 each MISCELLANE DAILY PRN; Protocol PRN Reason: Per Protocol Morphine Sulfate (Morphine Oral Soln 10 Mg/5 Ml Cup) 15 mg PO Q12H [facility] Last Admin: 02/09/22 00:32 Dose: 15 mg Naloxone HCl (Naloxone 0.4 Mg/Ml 1 Ml Vial) 0.2 mg IV Q2M PRN PRN Reason: Opioid Reversal Nicotine (Nicotine 21mg/24hr Patch) 1 patch TRANSDERM DAILY [facility] Last Admin: 02/09/22 09:54 Dose: 1 patch Ondansetron HCl (Ondansetron 4 Mg/2 Ml Vial) 4 mg IVP Q8HR PRN PRN Reason: Nausea And Vomiting Last Admin: 02/02/22 08:41 Dose: 4 mg Pantoprazole Sodium (Pantoprazole 40 Mg/10 Ml Vial) 40 mg IVP BID [facility] Last Admin: 02/09/22 09:54 Dose: 40 mg Pregabalin (Pregabalin 100 Mg Cap) 100 mg PO BID [facility] Last Admin: 02/09/22 09:55 Dose: 100 mg Sodium Bicarbonate (Sodium Bicarbonate Tab 650 Mg Tab) 1,300 mg PO QID [facility] Last Admin: 02/09/22 09:54 Dose: 1,300 mg Tamsulosin HCl (Tamsulosin 0.4 Mg Cap.Er.24h) 0.4 mg PO PC-BRKFST [facility] Last Admin: 02/09/22 09:55 Dose: 0.4 mg Warfarin Sodium (Warfarin 0.5 Mg Tab) 0 mg PO ONCE@1800 ONE Stop: 02/09/22 18:01 Past medical history to include: COPD, diabetes, hypertension, hyperlipidemia, back problems, TB, atrial fibrillation, on Coumadin Social history: Smokes a pack a day for close to 50 years. Stop doing alcohol some time ago. Lives with his significant other Sandra. Does use a walker. 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 Conjunctiva normal. HEENT: External appearance of nose and ears normal, oral cavity dry, NG tube, endotracheal tube NECK: JVD not raised; masses not palpable. HEART: Heart sounds irregular; mild edema. LUNGS: Respiratory rate increased; decreased breath sound, ABDOMEN: Soft, distended, nontender, liver spleen not palpable, no masses palpable. PSYCH: Unable to assess, patient sedated DERMATOLOGICAL: Wound on right ankle lateral malleolus. Under dressing. Stage II coccygeal breakdown. See nursing notes INVESTIGATIONS, reviewed in the clinical context: Sputum: Stenostrophonas maltophilia, Lynda albicans February 09: W BC 26.5 hemoglobin 11.7 platelets 201 potassium 4.8 BUN 68 creatinine 4.66 Computed tomography scan abdomen and pelvis [February 06] 6 mm stone in the right renal collecting system. Some circumferential wall thickening of the cecum and ascending colon. Distention of the rectum 7.5 cm with solid stool. February 06: WBC 4, 16.4 hemoglobin 10.5, platelets 160, potassium 3, BUN 43, creatinine 3.17 February 05: WBC 19.1 hemoglobin 11.5 platelets 179 potassium 3.7 BUN 37, creatinine 2.38. ABG: PH 7.24, pCO2 60, pO2 111 February 04: Obesity, 16.2, hemoglobin 12.4 potassium 4.3, BUN 36, creatinine 1.84 EEG: Evidence of encephalopathy. No obvious epileptiform activity. 2-D echocardiogram: EF 60-65%. February 03: WBC 18.5, hemoglobin 12.5 potassium 3.2, BUN 35, creatinine 1.77 February 02: CBC 7.5 hemoglobin 13.3 platelets 166 potassium 3 view and 29 creatinine 1.6 to Renal ultrasound: Shows bilateral normal cortical medullary thickness. February 01: WBC 17.1 hemoglobin 14.8 UA: Blood large, leukoesterase moderate WBC 28 nitrite negative Lumbar spine CT: Anterior wedge compression deformity of L1. Multiple level DJD. 7 mm calculus right renal pelvis. CT chest without contrast: Right lateral eighth through 10th rib fractures with associated gas trace hemothorax right lower lobe pulmonary contusion/atelectasis. Patchy) disease left upper lobe. WBC 25.8 hemoglobin 14.1 platelets 217 INR greater than 10 sodium 131 potassium 3.9. 24 creatinine 1.8 to EKG tracing personally reviewed by me-atrial flutter. Rate 132 Foot/Lumbar/sacral coccyx: Spondylitic changes. No fracture. Chest x-ray film personally reviewed by me-clinically. Possible hyperinflation Assessment and plan: -Coumadin toxicity. INR greater than 10. On presentation: 10 mg vitamin K in the ER. Hemoptysis on presentation. Coumadin resumed on February 05.. - right lung contusion.-Secondary to fall/hip fracture. hemoptysis on presentation -Pneumonia, secondary toStenostrophonas maltophilia IV cefepime -Sepsis with positive blood cultures MSSA, likely source right ankle. From January 31. IV cefepime -Acute hypoxic respiratory failure, multifactorial: ventilator support,: Slow to respond Patient intubated on February 05 -Acute COPD exacerbation, with chronic bronchitis component in a current smoker: Slow to respond DuoNeb. Nebulized Pulmicort. Mucinex. -Chronic nicotine dependence, cigarette smoker Nicotine patch -Persistent atrial flutter,: Remains controlled Lopressor 50 mg 3 times a day. 2-D echocardiogram unremarkable. Oral amiodarone Coumadin started on February 05 -Possible CK D with possible acute component. creatinine was 0.8 in April 2019. Renal ultrasound unremarkable. UA shows trace protein. IV fluids.. -Acute kidney injury, ATN, likely cardiorenal syndrome.: Not improving Follow with nephrology. 4 hemodialysis. -Acute right-sided 8-10 ribs fracture secondary to fall K pad -Diabetes mellitus type 2, chronically on oral hypoglycemic Hold Glucotrol. Sliding scale insulin. Levemir 14 units daily at bedtime -Diabetic peripheral neuropathy Decreased dose of Lyrica in the setting of renal failure. 100 mg twice a day -Chronic low back pain: MS Contin 15 mg every 12, [place] 7.5 twice a day when necessary -Anxiety depression not otherwise specified Wellbutrin XL 100 mg twice a day -Hyperlipidemia Lipitor 40 mg daily at bedtime -Right ankle lateral, diabetic wound, stage II acute. Wound culture positive for Streptococcus agalactiae and Staphylococcus aureus. IV Ancef ID consulted. Patient has poor distal pulses. February 01 wound was debrided by Dr. Ibarra. Clean base. -Acute L1 30% wedge fracture secondary to fall LSO brace. Be followed by Dr. Damon -Acute delirium multifactorial. Slow to respond -Acute ileus, NG tube for decompression.; clamped. Being followed by surgery. -Possible colitis /fistula on computed tomography scan. IV Flagyl. Cefepime. Followed by surgery Received vitamin K to reverse INR. For dialysis catheter placement. Drips include bicarbonate, propofol, epinephrine. Antibiotics to continue including cefepime and Flagyl. Discussed with at the bedside. Prognosis guarded.
[2022-02-09] MEDS ORDERED: ARTIFICIAL TEARS-HYPROMELLOSE DROPS 15 ML BTL BOTH EYES PRN (13:51)
--- NOTE | 2022-02-09 14:48 | XR ---
EXAMINATION TYPE: XR chest 1V portable DATE OF EXAM: 02/09/2022 2:42 PM COMPARISON: Chest radiographs from 02/09/2022. TECHNIQUE: XR chest 1V portable Frontal view of the chest. CLINICAL INDICATION:Male, 61 years old with history of Confirm OG placement; FINDINGS: Patient is rotated which limits evaluation. Lungs/Pleura: Radiotracer bibasilar airspace opacities and pleural effusions. No pneumothorax. Pulmonary vascularity: Mild pulmonary vascular congestion. Heart/mediastinum: Cardiomediastinal silhouette is unremarkable. Musculoskeletal: No acute osseous pathology. Lines/Tubes: Endotracheal tube with distal tip 4.8 cm above the jodi Nasogastric tube with its distal tip courses below the diaphragm and not included on the [id number] w. Right subclavian central venous catheter stable position. IMPRESSION: 1. Similar appearance of CHF exacerbation with cardiomegaly, mild pulmonary vascular congestion, and small to moderate bilateral pleural effusions. 2. Stable support lines and tubes.
[2022-02-09 15:32] LABS: Hepatitis B Surface AB- Quant 3.5 mIU/mL; Hepatitis B Surface Antibody Nonreactive (Nonreactive)
--- NOTE | 2022-02-09 16:10 | XR ---
EXAMINATION TYPE: XR abdomen 1V DATE OF EXAM: 02/09/2022 3:57 PM INDICATION: Patient age:Male; 61 years old; Reason for study: Confirm OG placement; COMPARISON: None. TECHNIQUE: One radiographic view of the abdomen was obtained. FINDINGS: Motion artifact slightly limits evaluation of the nasogastric tube side-port. Distal tip is near the gastroesophageal junction. IMPRESSION: Distal tip near the gastroesophageal junction, consider advancement of 17 cm for optimal placement.
[2022-02-09 16:54] LABS: Prothrombin Time 20.3 sec (9.0-12.0)
--- NOTE | 2022-02-09 17:00 | XR ---
EXAMINATION TYPE: XR abdomen 1V DATE OF EXAM: 02/09/2022 COMPARISON: Today HISTORY: Tube placement TECHNIQUE: Single view FINDINGS: There is nasogastric tube and the tip appears to be in the lateral aspect of the gastric fu ndus. There is likely some infiltrate at both lung bases. IMPRESSION: Tip of the NG tube appears to be in the gastric fundus. Limited exam.
[2022-02-09 17:36] LABS: Hepatitis B Surface Antigen Nonreactive (Nonreactive)
[2022-02-09] MEDS: NOREPINEPHRINE 4 MG in SODIUM CHLORIDE 0.9% 250 ML IV SCH (17:47)
[2022-02-09] MEDS ORDERED: WARFARIN 0.5 MG TAB PO ONE (18:00)
[2022-02-09 18:17] LABS: Glucose,Whole Blood 121 mg/dL (70-110)
[2022-02-09 20:38] LABS: Glucose,Whole Blood 119 mg/dL (70-110)
[2022-02-09] MEDS: INSULIN DETEMIR (LEVEMIR) 100 UNIT/ML SYR SQ SCH (20:45)
--- NOTE | 2022-02-09 23:16 | OP ---
OPERATIVE REPORT PREOPERATIVE DIAGNOSIS: Acute chronic renal failure. POSTOPERATIVE DIAGNOSIS: Acute chronic renal failure. PROCEDURE PERFORMED: Ultrasound-guided dialysis catheter placed, right femoral approach. DESCRIPTION OF PROCEDURE: The patient was seen in the intensive care unit. Right groin was prepped and draped applied in appropriate sterile manner and 1% lidocaine was infiltrated. Ultrasound- guided micropuncture into the right femoral vein micropuncture guidewire was passed and 4-Sinhala dilator advanced on top of the guidewire. After that, we passed a regular guidewire without any resistance. Dilator was advanced and dialysis catheter was advanced on the top of the guidewire. Guidewire was removed. Flushed with heparin saline and hep-locked, secured with 3-0 nylon, dressing applied. The patient tolerated the procedure well. MMODL / IJN: [id number] /
[2022-02-09 23:26] LABS: Glucose,Whole Blood 128 mg/dL (70-110)
[2022-02-10] MEDS: INSULIN ASPART (NovoLOG) 100 UNIT/ML VIAL SQ SCH ×4 (00:05→18:02)
[2022-02-10] MEDS: NOREPINEPHRINE 32 MG in SODIUM CHLORIDE 0.9% 218 ML IV SCH (00:19)
[2022-02-10 04:36] LABS: INR 1.4 (<1.2); Prothrombin Time 14.5 sec (9.0-12.0)
[2022-02-10 05:02] LABS: ABG Base Excess -8.2 mmol/L; ABG HCO3 18 mmol/L (21-25); ABG Hematocrit 34 % (34.0-46.0); ABG Oxygen Saturation 97.3 % (94-97); ABG PCO2 38 mmHg (35-45); ABG PH 7.29 (7.35-7.45); ABG PO2 95 mmHg (83-108); ABG TCO2 20 mmol/L (19-24)
[2022-02-10 05:05] LABS: Allen Test Performed? no
[2022-02-10 05:20] LABS: ALT <6 U/L (4-49); AST 15 U/L (17-59); African American GFR (CKD) 15 (>60 ml/min/1.73 sqM); Albumin 1.9 g/dL (3.5-5.0); Alkaline Phosphatase 115 U/L (38-126); Anion Gap 14 mmol/L; Blood Urea Nitrogen 56 mg/dL (9-20); Calcium 7.4 mg/dL (8.4-10.2); Carbon Dioxide 16 mmol/L (22-30); Chloride 108 mmol/L (98-107); Glucose 151 mg/dL (74-99); Magnesium 1.9 mg/dL (1.6-2.3); Non-African American GFR(CKD) 13 (>60 ml/min/1.73 sqM); Phosphorus 7.1 mg/dL (2.5-4.5); Potassium 4.3 mmol/L (3.5-5.1); Sodium 138 mmol/L (137-145); Total Bilirubin 0.6 mg/dL (0.2-1.3); Total Protein 4.6 g/dL (6.3-8.2)
[2022-02-10 05:58] LABS: Glucose,Whole Blood 119 mg/dL (70-110)
--- NOTE | 2022-02-10 07:06 | P.PN ---
Subjective Progress Note Date: 02/10/22 Principal diagnosis: Persistent atrial fibrillation This is a 61-year-old gentleman who was admitted to the hospital with acute on chronic respiratory failure as well as metabolic encephalopathy and septic shock. We involved in the care of the patient for the management of persistent atrial fibrillation. The patient was seen this morning. He continues to be intubated on mechanical ventilation. He underwent a dialysis catheter placement yesterday and possibly he might need dialysis today. Hemodynamically he remains unstable and requires small dose of norepinephrine. His Coumadin today is below 21 with that being said I'm going to give the patient 3 mg of Coumadin today and check INR. He is in atrial fibrillation with overall controlled heart rate on the current dose of amiodarone as well as beta donovan. Objective - Vital Signs Vital signs: Vital Signs Temp 99.3 F 02/10/22 04:00 Pulse 105 H 02/10/22 07:00 Resp 24 02/10/22 07:00 BP 141/66 02/10/22 07:00 Pulse Ox 98 02/10/22 07:00 FiO2 40 02/10/22 04:00 Intake & Output 02/09/22 02/10/22 02/10/22 18:59 06:59 18:59 Intake Total 4277.917 4411.374 101 Output Total 200 205 15 Balance 4702.263 8202.374 86 Weight 138.5 kg 145 kg Intake: IV 1022 616 56 Cefepime 1 gm In Sodium 50 Chloride 0.9% 50 ml @ 12. 5 mls/hr IVPB Q12HR [facility] Rx#:[id number] Dextrose 5% in Water 1, 500 550 50 000 ml @ 50 mls/hr IV . Q23H [facility] with Sodium Bicarb (1 Meq/ml) 150 ml Rx#:[id number] Pressure bags 72 66 6 Sodium Chloride 0.9% 1, 100 000 ml @ 50 mls/hr IV . Q20H [facility] Rx#:[id number] levETIRAcetam IV 500 mg 100 In Sodium Chloride 0.9% 100 ml @ 400 mls/hr IVPB DAILY [facility] Rx#:[id number] metroNIDAZOLE-NS PMX 500 200 mg In Saline 1 100ml.bag @ 100 mls/hr IVPB Q8HR [facility] Rx#:[id number] Intake, IV Titration 387.755 263.374 Amount Norepinephrine 32 mg In 138.087 66.514 Sodium Chloride 0.9% 218 ml @ 0.05 MCG/KG/MIN 3. 246 mls/hr IV .Q24H [facility] Rx#:[id number] propofoL 1,000 mg In 249.668 196.86 Empty Bag 1 bag @ 5 MCG/ KG/MIN 4.08 mls/hr IV . Q24H [facility] Rx#:[id number] Oral 200 Tube Feeding 90 495 45 Other 90 Output: Urine 200 205 15 Other: Voiding Method Indwelling Catheter Indwelling Catheter ABP, PAP, CO, CI - Last Documented Arterial Blood Pressure 138/48 - Constitutional General appearance: Present: no acute distress - Respiratory Respiratory: bilateral: diminished - Cardiovascular Rhythm: irregularly irregular - Labs CBC & Chem 7: 02/09/22 05:25 02/10/22 04:00 Labs: Abnormal Lab Results - Last 24 Hours (Table) 02/09/22 02/09/22 02/09/22 Range/Units 12:04 15:54 18:15 PT 20.3 H (9.0-12.0) sec INR 2.0 H (<1.2) ABG pH (7.35-7.45) ABG HCO3 (21-25) mmol/L ABG O2 Saturation (94-97) % Hemoglobin (13.0-17.5) gm/dL Chloride (98-107) mmol/L Carbon Dioxide (22-30) mmol/L BUN (9-20) mg/dL Creatinine (0.66-1.25) mg/dL Glucose (74-99) mg/dL POC Glucose (mg/dL) 121 H 121 H (70-110) mg/dL Calcium (8.4-10.2) mg/dL Phosphorus (2.5-4.5) mg/dL AST (17-59) U/L Total Protein (6.3-8.2) g/dL Albumin (3.5-5.0) g/dL 02/09/22 02/09/22 02/10/22 Range/Units 20:38 23:25 04:00 PT (9.0-12.0) sec INR (<1.2) ABG pH (7.35-7.45) ABG HCO3 (21-25) mmol/L ABG O2 Saturation (94-97) % Hemoglobin (13.0-17.5) gm/dL Chloride 108 H (98-107) mmol/L Carbon Dioxide 16 L (22-30) mmol/L BUN 56 H (9-20) mg/dL Creatinine 4.44 H (0.66-1.25) mg/dL Glucose 151 H (74-99) mg/dL POC Glucose (mg/dL) 119 H 128 H (70-110) mg/dL Calcium 7.4 L (8.4-10.2) mg/dL Phosphorus 7.1 H (2.5-4.5) mg/dL AST 15 L (17-59) U/L Total Protein 4.6 L (6.3-8.2) g/dL Albumin 1.9 L (3.5-5.0) g/dL 02/10/22 02/10/22 02/10/22 Range/Units 04:00 05:00 05:57 PT 14.5 H (9.0-12.0) sec INR 1.4 H (<1.2) ABG pH 7.29 L (7.35-7.45) ABG HCO3 18 L (21-25) mmol/L ABG O2 Saturation 97.3 H (94-97) % Hemoglobin 11.0 L (13.0-17.5) gm/dL Chloride (98-107) mmol/L Carbon Dioxide (22-30) mmol/L BUN (9-20) mg/dL Creatinine (0.66-1.25) mg/dL Glucose (74-99) mg/dL POC Glucose (mg/dL) 119 H (70-110) mg/dL Calcium (8.4-10.2) mg/dL Phosphorus (2.5-4.5) mg/dL AST (17-59) U/L Total Protein (6.3-8.2) g/dL Albumin (3.5-5.0) g/dL Microbiology - Last 24 Hours (Table) 02/04/22 09:39 Blood Culture - Preliminary Blood No Growth after 120 hours 02/04/22 09:39 Blood Culture - Preliminary Blood No Growth after 120 hours 02/05/22 23:55 Gram Stain - Final Sputum Sputum Culture - Final Stenotrophomonas maltophilia Lynda albicans Assessment and Plan Assessment: Assessment Acute on chronic respiratory failure Metabolic encephalopathy Septic shock Persistent atrial fibrillation Renal failure Plan Given the patient's Coumadin today and repeat the INR tomorrow The patient underwent yesterday dialysis catheter placement Continue the current dose of amiodarone as well as metoprolol Follow-up the patient
[2022-02-10] MEDS: BUDESONIDE 1 MG/2 ML NEBU INHALATION SCH ×2 (07:41→19:56)
[2022-02-10] MEDS: IPRATROPIUM-ALBUTEROL 3 ML NEB INHALATION SCH ×4 (07:41→19:56)
--- NOTE | 2022-02-10 08:05 | XR ---
EXAMINATION TYPE: XR abdomen acute w cxr DATE OF EXAM: 02/10/2022 COMPARISON: 02/02/2022 HISTORY: Shortness of breath TECHNIQUE: Supine, upright, and left side down lateral decubitus views of the abdomen are obtained. Frontal view of the chest also submitted. FINDINGS: Patient is markedly rotated with bilateral infiltrate and pleural effusion. ET and NG tube noted with no definite sizable pneumothorax. Right-sided PICC line suspected. Hyperinflation suggests COPD. Hypertrophic and degenerative change of the spine. NG tube is seen with the tip in the left upper quadrant likely within the gastric fundus. Bowel gas p attern is nonspecific. Right femoral line suspected. Arthropathy of the hips. Retained contrast noted in colon. Overall bowel gas pattern nonspecific. IMPRESSION: 1. Correlate for CHF otherwise consider diffuse pneumonia. 2. Nonspecific abdomen.
[2022-02-10] MEDS: TAMSULOSIN 0.4 MG CAP.ER.24H PO SCH (08:35)
[2022-02-10] MEDS: AMIODARONE 200 MG TAB PO SCH ×2 (08:35→21:12)
[2022-02-10] MEDS: guaiFENesin 600 MG TABLET.ER PO SCH ×4 (08:35→21:11)
[2022-02-10] MEDS: PREGABALIN 100 MG CAP PO SCH ×2 (08:35→21:12)
[2022-02-10] MEDS: SODIUM BICARBONATE TAB 650 MG TAB PO SCH ×4 (08:35→21:12)
[2022-02-10] MEDS: metroNIDAZOLE-NS PMX 500 MG in SALINE 1 100ML.BAG IVPB SCH ×2 (08:37→17:57)
[2022-02-10] MEDS: CHLORHEXIDINE GLUCONATE 15 ML CUP MUCOUS MEM SCH ×2 (08:47→21:12)
[2022-02-10] MEDS: PANTOPRAZOLE 40 MG/10 ML VIAL IVP SCH ×2 (08:47→21:12)
[2022-02-10] MEDS: DEXTROSE 5% IN WATER 1,000 ML with SODIUM BICARB (1 MEQ/ML) 150 ML IV SCH (08:48)
[2022-02-10] MEDS: NICOTINE 21MG/24HR PATCH TRANSDERM SCH (08:48)
[2022-02-10] MEDS: COLLAGENASE 250 UNIT/GM OINTMENT 30 GM TUBE TOPICAL SCH (08:49)
[2022-02-10] MEDS: METOPROLOL TARTRATE 25 MG TAB PO SCH ×2 (08:50→21:05)
[2022-02-10] MEDS ORDERED: SODIUM BICARB 8.4% 50 ML SYR (1 MEQ/ML) IV STA (09:55)
[2022-02-10] MEDS: CEFEPIME 1 GM in SODIUM CHLORIDE 0.9% 50 ML IVPB SCH ×2 (10:11→21:12)
--- NOTE | 2022-02-10 10:18 | P.PN ---
Subjective Patient is seen in follow-up for acute kidney injury. Started on hemodialysis 02/09/2022. Intubated. On Levophed. Receiving tube feeds. Also on bicarb drip. Urine output about 20 mL/hr. Vital signs are stable. On Levophed. General: Resting in bed. HEENT: Intubated. LUNGS: Breath sounds decreased. HEART: Rate and Rhythm are regular. ABDOMEN: Soft, no distention. EXTREMITITES: Trace edema. Objective - Vital Signs Vital signs: Vital Signs Temp 98.3 F 02/10/22 08:00 Pulse 108 H 02/10/22 09:00 Resp 24 02/10/22 09:00 BP 127/60 02/10/22 09:00 Pulse Ox 98 02/10/22 09:00 FiO2 40 02/10/22 08:00 Intake & Output 02/09/22 02/10/22 02/10/22 18:59 06:59 18:59 Intake Total 6537.586 1865.374 1018.666 Output Total 200 205 65 Balance 2241.673 3552.374 953.666 Weight 138.5 kg 145 kg Intake: IV 1022 616 268 Cefepime 1 gm In Sodium 50 Chloride 0.9% 50 ml @ 12. 5 mls/hr IVPB Q12HR [facility] Rx#:[id number] Dextrose 5% in Water 1, 500 550 150 000 ml @ 50 mls/hr IV . Q23H [facility] with Sodium Bicarb (1 Meq/ml) 150 ml Rx#:[id number] Pressure bags 72 66 18 Sodium Chloride 0.9% 1, 100 000 ml @ 50 mls/hr IV . Q20H [facility] Rx#:[id number] levETIRAcetam IV 500 mg 100 In Sodium Chloride 0.9% 100 ml @ 400 mls/hr IVPB DAILY [facility] Rx#:[id number] metroNIDAZOLE-NS PMX 500 200 100 mg In Saline 1 100ml.bag @ 100 mls/hr IVPB Q8HR [facility] Rx#:[id number] Intake, IV Titration 387.755 263.374 165.666 Amount Norepinephrine 32 mg In 138.087 66.514 75.226 Sodium Chloride 0.9% 218 ml @ 0.05 MCG/KG/MIN 3. 246 mls/hr IV .Q24H [facility] Rx#:[id number] propofoL 1,000 mg In 249.668 196.86 90.44 Empty Bag 1 bag @ 5 MCG/ KG/MIN 4.08 mls/hr IV . Q24H [facility] Rx#:[id number] Oral 200 Tube Feeding 90 495 135 Hemodialysis 450 Other 90 Output: Urine 200 205 65 Other: Voiding Method Indwelling Catheter Indwelling Catheter Indwelling Catheter ABP, PAP, CO, CI - Last Documented Arterial Blood Pressure 115/38 - Labs CBC & Chem 7: 02/09/22 05:25 02/10/22 04:00 Labs: Abnormal Lab Results - Last 24 Hours (Table) 02/09/22 02/09/22 02/09/22 Range/Units 12:04 15:54 18:15 PT 20.3 H (9.0-12.0) sec INR 2.0 H (<1.2) ABG pH (7.35-7.45) ABG HCO3 (21-25) mmol/L ABG O2 Saturation (94-97) % Hemoglobin (13.0-17.5) gm/dL Chloride (98-107) mmol/L Carbon Dioxide (22-30) mmol/L BUN (9-20) mg/dL Creatinine (0.66-1.25) mg/dL Glucose (74-99) mg/dL POC Glucose (mg/dL) 121 H 121 H (70-110) mg/dL Calcium (8.4-10.2) mg/dL Phosphorus (2.5-4.5) mg/dL AST (17-59) U/L Total Protein (6.3-8.2) g/dL Albumin (3.5-5.0) g/dL 02/09/22 02/09/22 02/10/22 Range/Units 20:38 23:25 04:00 PT (9.0-12.0) sec INR (<1.2) ABG pH (7.35-7.45) ABG HCO3 (21-25) mmol/L ABG O2 Saturation (94-97) % Hemoglobin (13.0-17.5) gm/dL Chloride 108 H (98-107) mmol/L Carbon Dioxide 16 L (22-30) mmol/L BUN 56 H (9-20) mg/dL Creatinine 4.44 H (0.66-1.25) mg/dL Glucose 151 H (74-99) mg/dL POC Glucose (mg/dL) 119 H 128 H (70-110) mg/dL Calcium 7.4 L (8.4-10.2) mg/dL Phosphorus 7.1 H (2.5-4.5) mg/dL AST 15 L (17-59) U/L Total Protein 4.6 L (6.3-8.2) g/dL Albumin 1.9 L (3.5-5.0) g/dL 02/10/22 02/10/22 02/10/22 Range/Units 04:00 05:00 05:57 PT 14.5 H (9.0-12.0) sec INR 1.4 H (<1.2) ABG pH 7.29 L (7.35-7.45) ABG HCO3 18 L (21-25) mmol/L ABG O2 Saturation 97.3 H (94-97) % Hemoglobin 11.0 L (13.0-17.5) gm/dL Chloride (98-107) mmol/L Carbon Dioxide (22-30) mmol/L BUN (9-20) mg/dL Creatinine (0.66-1.25) mg/dL Glucose (74-99) mg/dL POC Glucose (mg/dL) 119 H (70-110) mg/dL Calcium (8.4-10.2) mg/dL Phosphorus (2.5-4.5) mg/dL AST (17-59) U/L Total Protein (6.3-8.2) g/dL Albumin (3.5-5.0) g/dL Microbiology - Last 24 Hours (Table) 02/04/22 09:39 Blood Culture - Preliminary Blood No Growth after 120 hours 02/04/22 09:39 Blood Culture - Preliminary Blood No Growth after 120 hours 02/05/22 23:55 Gram Stain - Final Sputum Sputum Culture - Final Stenotrophomonas maltophilia Lynda albicans Assessment and Plan Plan: Assessment: 1. Acute kidney injury secondary to ATN secondary to septic shock. Started on hemodialysis 02/09/2022. Urine output about 20 mL an hour. Creatinine in April 2019 was 0.8. Creatinine was as low as 1.62 this admission. No hydronephrosis noted on CAT scan. 2. MSSA bacteremia with likely source being right foot ulcer. ID following. On antibiotics. 3. A. fib. Cardiology following. 4. Metabolic acidosis secondary to acute kidney injury. 5. Diabetes mellitus. 6. Hyperphosphatemia secondary to acute kidney injury. Plan: Second treatment of hemodialysis today and third treatment tomorrow. Maintain sodium bicarbonate drip at 50 mL an hour. Status post IV Lasix yesterday and today. 2 A of sodium bicarb IV push now. Maintain tube feeds. Wean FiO2 and vasopressors. Continue to monitor for renal recovery. Add PhosLo. Repeat UA.
--- NOTE | 2022-02-10 10:52 | P.PN ---
Subjective Progress Note Date: 02/10/22 Principal diagnosis: Respiratory failure. Patient was reevaluated today on 02/06/22, remains in the ICU, intubated and mechanically ventilated. Patient is sedated, his ventilator settings are assist control rate of 24 tidal volume 500 FiO2 45% and PEEP of 5. ABG showed a pO2 of 85 pCO2 37 pH of 7.37 patient had worsening urine output and worsening renal status overnight, received almost 4 L of fluids, continue to have low urine output and this morning he received 80 mg of Lasix IV push. CVP continues to read the low below 7. His endotracheal tube was noted to be sitting high in the trachea and it will be advanced about 3 cm. Patient remains on propofol at 40 mcg/kg/m IV fluids/normal saline at 100 mL per hour norepinephrine at 0.02 mcg/kg/m today I recommended a nephrology consultation and the patient will be undergoing CT of the abdomen for ileus. The CT of the abdomen showed mild to moderate circumferential wall thickening of the cecum and ascending colon pos sible nonspecific infectious or inflammatory colitis. There was also distention of the rectum up to 7.5 cm with solid stool. Patient is developing fecal impaction. There is also the possibility of perianal fistula noted on the CT of the abdomen and pelvis. Blood cultures from 97 and 98 are negative so far. Previous blood cultures from 01/31 hence 02/01 were positive for staph aureus Patient was reevaluated today on 02/07/22, patient remains in the ICU, intubated and mechanically ventilated. Patient is on assist control rate of 24 tidal volume 500 FiO2 45% PEEP of 5 ABG showed a pO2 of 79 pCO2 36 pH of 7.33. Continues to have very low urine output, renal functioning seems to be getting worse, and nephrology as on consultation, today I cut down his IV fluid to 50 mL/h and I gave him a dose of Lasix 80 mg IV push. Again his urine output is extremely marginal. Patient is off norepinephrine today blood pressure seems to be better controlled. He is on propofol at 30 mcg/kg/m IV fluid cut down to 50 mL/h and he is on tube feeding. No changes were made today for his ventilator settings chest x-ray continues to show small bilateral patchy airspace disease, and possibly some component of pleural effusion is noted bilaterally. WBC count is 18.5 hemoglobin 11.6. INR is 2.2 electrolytes are normal bicarb is 18 BUN is 49, and 3.73 creatinine up from yesterday Patient was reevaluated today on , remains in the ICU intubated mechanically ventilated, sedated, his ventilator settings are assist control rate 24 tidal volume 500 FiO2 40% PEEP of 5 ABG showed a pO2 of 95 pCO2 34 pH of 7.28, reflecting a mild metabolic acidosis most likely secondary to his worsening renal failure his creatinine is up to 4.36 today. Patient does respond to diuretics, however I believe the patient is clinically dry, and I'm recommending fluid boluses today, 500 mL of saline intermittently patient has a good urine output, especially after Lasix. Otherwise his urine output is poor. CVP remains low, chest x-ray is showing improvement in his fluid overload, hence I'm recommending fluid boluses to be given today. Patient remains on antibiotics for his MSSA infection he is on cefepime is also on Flagyl. Today I'm recommending that the patient goes off propofol and to be able to get adeq uate mental assessment. He is requiring to small dose of norepinephrine 0.05 mcg/kg/m, and I'm hoping with fluid boluses we could potentially discontinue norepinephrine today. Again chest x-ray is showing slight improvement. And I plan to stop propofol today. Patient was seen by nephrology and considering starting hemodialysis in the next 24 or 48 hours. They are consulting vascular surgery for dialysis catheter placement. WBC count today is 23.6 hemoglobin is 11.1 INR is 3.0 electrolytes are normal except for low bicarb of 14, BUN is 54 creatinine 4.36. Progress note dated 02/09/2022. This is a 61-year-old male who was admitted on January 31, for atrial fibrillation and cellulitis. On February 05, he was intubated for respiratory failure. The patient remains on the ventilator. Currently, she is on the volume assist control, with a rate of 24, tidal volume 500, FiO2 40%, and PEEP of 5. Arterial blood gases show pO2 of 90, pCO2 pH of 7.21. His blood gases are consistent with metabolic acidosis. The patient will be started on a bicarbonate drip, with 3 ampules of sodium bicarbonate and D5W at 50 mL an hour. The patient is also on norepinephrine at 21 mcg/m, and propofol at 40 mcg/kg/m. The patient's getting vital HP at 33 mL an hour, which is goal. The patient remains on Flagyl and cefepime. A hemodialysis catheter will be placed today. White count 26.5, hemoglobin 11.7, hematocrit 40, and platelet count 201,000. PTT is 32.5 with an INR 3.3. Sodium 140, potassium 4.8, chlorides 114, CO2 13, anion gap 13, BUN 60, and creatinine 4.66. Albumin is 2. Sputum sampling from February 05 show stenotrophomonas. Blood cultures from February 01 are positive for staph aureus. Chest x-ray shows a pattern of CHF, cardiomegaly, small to moderate effusions, and pulmonary vascular congestion. Progress note dated 02/10/2022. 61-year-old male admitted on January 31, for atrial fibrillation and cellulitis. On February 05, he was intubated for respiratory failure. He remains on the mechanical ventilator. He is currently on volume assist control, rate 24, tidal volume 500, FiO2 50%, and PEEP of 5. Blood gases show pO2 of 95, pCO2 of 38, pH is 7.29. Blood gases are consistent with metabolic acidosis. The patient remains on norepinephrine at 15 mcg/m, propofol at 25 mcg/kg/m, and D5W with 3 ampules of sodium bicarbonate at 50 mL an hour. The patient had a daily interruption of sedation on February 09, and lasted about an hour and 15 minutes, before agitation forced him to go back on the ventilator. In addition, he had hemodialysis yesterday and what hemodialysis again today. There was no additional fluid removal. Patient remains on vital high protein at 45 mL an hour, which is goal, as well as on Flagyl and cefepime. CBC is currently pe nding. INR 1.4. Sodium 138, potassium 4.3, chlorides 108, CO2 16, anion gap 14, BUN 56, and creatinine 4.44. The chest x-ray and abdominal films are all reviewed. Objective - Vital Signs Vital signs: Vital Signs Temp 98.3 F 02/10/22 08:00 Pulse 123 H 02/10/22 10:00 Resp 24 02/10/22 10:00 BP 128/60 02/10/22 10:00 Pulse Ox 97 02/10/22 10:00 FiO2 50 02/10/22 08:00 Intake & Output 02/09/22 02/10/22 02/10/22 18:59 06:59 18:59 Intake Total 2440.940 1514.374 1018.666 Output Total 200 205 65 Balance 6655.574 1741.374 953.666 Weight 138.5 kg 145 kg Intake: IV 1022 616 268 Cefepime 1 gm In Sodium 50 Chloride 0.9% 50 ml @ 12. 5 mls/hr IVPB Q12HR [facility] Rx#:[id number] Dextrose 5% in Water 1, 500 550 150 000 ml @ 50 mls/hr IV . Q23H [facility] with Sodium Bicarb (1 Meq/ml) 150 ml Rx#:[id number] Pressure bags 72 66 18 Sodium Chloride 0.9% 1, 100 000 ml @ 50 mls/hr IV . Q20H [facility] Rx#:[id number] levETIRAcetam IV 500 mg 100 In Sodium Chloride 0.9% 100 ml @ 400 mls/hr IVPB DAILY [facility] Rx#:[id number] metroNIDAZOLE-NS PMX 500 200 100 mg In Saline 1 100ml.bag @ 100 mls/hr IVPB Q8HR [facility] Rx#:[id number] Intake, IV Titration 387.755 263.374 165.666 Amount Norepinephrine 32 mg In 138.087 66.514 75.226 Sodium Chloride 0.9% 218 ml @ 0.05 MCG/KG/MIN 3. 246 mls/hr IV .Q24H [facility] Rx#:[id number] propofoL 1,000 mg In 249.668 196.86 90.44 Empty Bag 1 bag @ 5 MCG/ KG/MIN 4.08 mls/hr IV . Q24H [facility] Rx#:[id number] Oral 200 Tube Feeding 90 495 135 Hemodialysis 450 Other 90 Output: Urine 200 205 65 Other: Voiding Method Indwelling Catheter Indwelling Catheter Indwelling Catheter ABP, PAP, CO, CI - Last Documented Arterial Blood Pressure 116/46 - Exam No acute distress, sedated, with an orally placed endotracheal tube. He now has a orally placed NG tube. HEENT examination is grossly unremarkable. Neck supple. Full range of motion. No adenopathy thyromegaly or neck vein distention. Cardiovascular examination reveals an irregular rhythm. S1-S2 normal. No S3 or S4. No discernible murmur noted. Heart rate 123 bpm. Lungs reveal bibasilar crackles. Rhonchi are noted. No wheezes. Breath sounds are equal bilaterally. Saturations are 97%. Abdomen obese, bowel sounds. No masses. Extremities are intact. No cyanosis clubbing or edema. Skin reveals a large around the lateral malleolus of the right foot with gangrenous changes. Neurologic examination cannot be properly assessed as the patient's currently sedated. - Labs CBC & Chem 7: 02/09/22 05:25 02/10/22 04:00 Labs: Abnormal Lab Results - Last 24 Hours (Table) 02/09/22 02/09/22 02/09/22 Range/Units 12:04 15:54 18:15 PT 20.3 H (9.0-12.0) sec INR 2.0 H (<1.2) ABG pH (7.35-7.45) ABG HCO3 (21-25) mmol/L ABG O2 Saturation (94-97) % Hemoglobin (13.0-17.5) gm/dL Chloride (98-107) mmol/L Carbon Dioxide (22-30) mmol/L BUN (9-20) mg/dL Creatinine (0.66-1.25) mg/dL Glucose (74-99) mg/dL POC Glucose (mg/dL) 121 H 121 H (70-110) mg/dL Calcium (8.4-10.2) mg/dL Phosphorus (2.5-4.5) mg/dL AST (17-59) U/L Total Protein (6.3-8.2) g/dL Albumin (3.5-5.0) g/dL 02/09/22 02/09/22 02/10/22 Range/Units 20:38 23:25 04:00 PT (9.0-12.0) sec INR (<1.2) ABG pH (7.35-7.45) ABG HCO3 (21-25) mmol/L ABG O2 Saturation (94-97) % Hemoglobin (13.0-17.5) gm/dL Chloride 108 H (98-107) mmol/L Carbon Dioxide 16 L (22-30) mmol/L BUN 56 H (9-20) mg/dL Creatinine 4.44 H (0.66-1.25) mg/dL Glucose 151 H (74-99) mg/dL POC Glucose (mg/dL) 119 H 128 H (70-110) mg/dL Calcium 7.4 L (8.4-10.2) mg/dL Phosphorus 7.1 H (2.5-4.5) mg/dL AST 15 L (17-59) U/L Total Protein 4.6 L (6.3-8.2) g/dL Albumin 1.9 L (3.5-5.0) g/dL 02/10/22 02/10/22 02/10/22 Range/Units 04:00 05:00 05:57 PT 14.5 H (9.0-12.0) sec INR 1.4 H (<1.2) ABG pH 7.29 L (7.35-7.45) ABG HCO3 18 L (21-25) mmol/L ABG O2 Saturation 97.3 H (94-97) % Hemoglobin 11.0 L (13.0-17.5) gm/dL Chloride (98-107) mmol/L Carbon Dioxide (22-30) mmol/L BUN (9-20) mg/dL Creatinine (0.66-1.25) mg/dL Glucose (74-99) mg/dL POC Glucose (mg/dL) 119 H (70-110) mg/dL Calcium (8.4-10.2) mg/dL Phosphorus (2.5-4.5) mg/dL AST (17-59) U/L Total Protein (6.3-8.2) g/dL Albumin (3.5-5.0) g/dL Microbiology - Last 24 Hours (Table) 02/04/22 09:39 Blood Culture - Preliminary Blood No Growth after 120 hours 02/04/22 09:39 Blood Culture - Preliminary Blood No Growth after 120 hours 02/05/22 23:55 Gram Stain - Final Sputum Sputum Culture - Final Stenotrophomonas maltophilia Lynda albicans Assessment and Plan Assessment: Acute hypercapnic respiratory failure, status post intubation and mechanical ventilation on 02/05/2022. Acute metabolic encephalopathy. Right sided rib fractures, traumatic, secondary to a fall. Right-sided pulmonary contusion. Anterior wedge compression fracture, L1. Hemoptysis, secondary to pulmonary contusion. COPD from chronic tobacco use. Coumadin toxicity. Chronic atrial fibrillation. Chronic kidney disease, stage III. Stage II right ankle wound, status post debridement. Diabetic peripheral neuropathy. History of kidney stones. Nonspecific colitis. Plan: Plan dated 02/09/2022. We will continue ventilatory support. The patient will have a daily interruption of sedation. The patient remains on Flagyl and cefepime. Culture data is reviewed. Continue GI and DVT prophylaxis. Prognosis is guarded. Labs, x-rays, and medications are all reviewed. We will continue to follow make recommendations along the way. The patient continues on amiodarone. Plan dated 02/10/2022. The patient will have another daily interruption of sedation. Yesterday, he did, and was only off sedation for about an hour and 15 minutes. The patient may not be ready yet. The patient did have hemodialysis yesterday, and will have an again today. Blood gases are consistent with metabolic acidosis. Chest x-ray, labs, and medications are reviewed. The patient remains on no repinephrine at 15 mcg/m. The patient remains on propofol at 25 mcg/kg/m. The patient also remains on Flagyl and cefepime. Prognosis is certainly guarded. We will continue to follow and make recommendations along the way. Time with Patient: Greater than 30
--- NOTE | 2022-02-10 11:20 | P.PN ---
Subjective Progress Note Date: 02/10/22 CHIEF COMPLAINT: Upper GI bleeding HISTORY OF PRESENT ILLNESS: Patient is intubated and mechanical ventilation on in the ICU. Patient is undergoing sedation holiday again today. He was started on hemodialysis yesterday and is scheduled to receive hemodialysis again today. He has only of LAD and sodium bicarb. Tube feedings were restarted at 45 mL per hour and no high residual reported. No bowel movement since disimpaction. Patient has OG tube in place instead of NG tube. Afebrile. Mild tachycardia. No CBC. creatinine 4.44 INR 1.4 acute abdominal series correlate for CHF otherwise consider diffuse pneumonia. Nonspecific abdomen. PHYSICAL EXAM: VITAL SIGNS: Reviewed. ABDOMEN: Softer. less Distended NEUROLOGIC: Intubated, able to open eyes ASSESSMENT: 1. Ileus 2. Upper GI bleed resolved 3. Fecal impaction 4. Altered mental status 5. Leukocytosis PLAN: -Continue ICU management -Continue supportive care -Continue to monitor -Continue tube feeds -Further recommendations forthcoming per surgeon Physician Photostatic Copy Maker note has been reviewed by physician. Signing provider agrees with the documented findings, assessment, and plan of care. I have personally seen and examined the patient, reviewed the [employer] /PAs history, exam and MDM and agree with the assessment and plan as written. Based on total visit time, I have performed more than 50% of the visit. As above: Patient without significant changes. Going for CAT scan brain today. Abdominal x-rays this morning show no significant distention. Continue tube feeds at goal. Will follow. Objective - Vital Signs Vital signs: Vital Signs Temp 98.3 F 02/10/22 08:00 Pulse 123 H 02/10/22 10:00 Resp 24 02/10/22 10:00 BP 128/60 02/10/22 10:00 Pulse Ox 97 02/10/22 10:00 FiO2 50 02/10/22 08:00 Intake & Output 02/09/22 02/10/22 02/10/22 18:59 06:59 18:59 Intake Total 9928.884 0076.374 1018.666 Output Total 200 205 65 Balance 1183.819 6688.374 953.666 Weight 138.5 kg 145 kg Intake: IV 1022 616 268 Cefepime 1 gm In Sodium 50 Chloride 0.9% 50 ml @ 12. 5 mls/hr IVPB Q12HR [facility] Rx#:[id number] Dextrose 5% in Water 1, 500 550 150 000 ml @ 50 mls/hr IV . Q23H [facility] with Sodium Bicarb (1 Meq/ml) 150 ml Rx#:[id number] Pressure bags 72 66 18 Sodium Chloride 0.9% 1, 100 000 ml @ 50 mls/hr IV . Q20H [facility] Rx#:[id number] levETIRAcetam IV 500 mg 100 In Sodium Chloride 0.9% 100 ml @ 400 mls/hr IVPB DAILY [facility] Rx#:[id number] metroNIDAZOLE-NS PMX 500 200 100 mg In Saline 1 100ml.bag @ 100 mls/hr IVPB Q8HR [facility] Rx#:[id number] Intake, IV Titration 387.755 263.374 165.666 Amount Norepinephrine 32 mg In 138.087 66.514 75.226 Sodium Chloride 0.9% 218 ml @ 0.05 MCG/KG/MIN 3. 246 mls/hr IV .Q24H [facility] Rx#:[id number] propofoL 1,000 mg In 249.668 196.86 90.44 Empty Bag 1 bag @ 5 MCG/ KG/MIN 4.08 mls/hr IV . Q24H [facility] Rx#:[id number] Oral 200 Tube Feeding 90 495 135 Hemodialysis 450 Other 90 Output: Urine 200 205 65 Other: Voiding Method Indwelling Catheter Indwelling Catheter Indwelling Catheter ABP, PAP, CO, CI - Last Documented Arterial Blood Pressure 116/46 - Labs CBC & Chem 7: 02/09/22 05:25 02/10/22 04:00 Labs: Abnormal Lab Results - Last 24 Hours (Table) 02/09/22 02/09/22 02/09/22 Range/Units 12:04 15:54 18:15 PT 20.3 H (9.0-12.0) sec INR 2.0 H (<1.2) ABG pH (7.35-7.45) ABG HCO3 (21-25) mmol/L ABG O2 Saturation (94-97) % Hemoglobin (13.0-17.5) gm/dL Chloride (98-107) mmol/L Carbon Dioxide (22-30) mmol/L BUN (9-20) mg/dL Creatinine (0.66-1.25) mg/dL Glucose (74-99) mg/dL POC Glucose (mg/dL) 121 H 121 H (70-110) mg/dL Calcium (8.4-10.2) mg/dL Phosphorus (2.5-4.5) mg/dL AST (17-59) U/L Total Protein (6.3-8.2) g/dL Albumin (3.5-5.0) g/dL 02/09/22 02/09/22 02/10/22 Range/Units 20:38 23:25 04:00 PT (9.0-12.0) sec INR (<1.2) ABG pH (7.35-7.45) ABG HCO3 (21-25) mmol/L ABG O2 Saturation (94-97) % Hemoglobin (13.0-17.5) gm/dL Chloride 108 H (98-107) mmol/L Carbon Dioxide 16 L (22-30) mmol/L BUN 56 H (9-20) mg/dL Creatinine 4.44 H (0.66-1.25) mg/dL Glucose 151 H (74-99) mg/dL POC Glucose (mg/dL) 119 H 128 H (70-110) mg/dL Calcium 7.4 L (8.4-10.2) mg/dL Phosphorus 7.1 H (2.5-4.5) mg/dL AST 15 L (17-59) U/L Total Protein 4.6 L (6.3-8.2) g/dL Albumin 1.9 L (3.5-5.0) g/dL 02/10/22 02/10/22 02/10/22 Range/Units 04:00 05:00 05:57 PT 14.5 H (9.0-12.0) sec INR 1.4 H (<1.2) ABG pH 7.29 L (7.35-7.45) ABG HCO3 18 L (21-25) mmol/L ABG O2 Saturation 97.3 H (94-97) % Hemoglobin 11.0 L (13.0-17.5) gm/dL Chloride (98-107) mmol/L Carbon Dioxide (22-30) mmol/L BUN (9-20) mg/dL Creatinine (0.66-1.25) mg/dL Glucose (74-99) mg/dL POC Glucose (mg/dL) 119 H (70-110) mg/dL Calcium (8.4-10.2) mg/dL Phosphorus (2.5-4.5) mg/dL AST (17-59) U/L Total Protein (6.3-8.2) g/dL Albumin (3.5-5.0) g/dL Microbiology - Last 24 Hours (Table) 02/04/22 09:39 Blood Culture - Preliminary Blood No Growth after 120 hours 02/04/22 09:39 Blood Culture - Preliminary Blood No Growth after 120 hours 02/05/22 23:55 Gram Stain - Final Sputum Sputum Culture - Final Stenotrophomonas maltophilia Lynda albicans
[2022-02-10 11:38] LABS: Glucose,Whole Blood 182 mg/dL (70-110)
[2022-02-10] MEDS: MORPHINE ORAL SOLN 10 MG/5 ML CUP PO SCH (11:58)
[2022-02-10] MEDS: CALCIUM ACETATE 667 MG TAB PO SCH ×2 (11:58→18:02)
[2022-02-10] MEDS: levETIRAcetam IV 500 MG in SODIUM CHLORIDE 0.9% 100 ML IVPB SCH (11:59)
--- NOTE | 2022-02-10 12:19 | P.PN ---
Subjective Progress Note Date: 02/10/22 I am seeing the patient for the first time during this admission. The ICU team is requesting to re-evaluated this patient since continues to be altered and no improvement event with holiday sedation. Per the patient's nurse the patient continues to be intubated on a ventilator and is on IV propofol 25mcg/kg/min and sedation has been held for past 3 hours and no improvement in his mentation. All he does is turn his neck side to side without any myolconic jerking or visible seizure-like activity. He has received dialysis for the first time yesterday and currently getting another dialysis session. It seems he does not have history of getting dialysis in past. Please refer to Dr. Stoll's notes for further details. It seems that the patient has myoclonic twitching that has resolved. Patient has cellulitis of the right foot ulcer. Patient had a routine EEG and did not reveal any the status epilepticus. It revealed metabolic encephalopathy. He had two CT head's and last CT was on 02/02/2022: It is reported as old left occipital lobe cortical infarct without any changes compared to the day prior. Cerebral atrophy. Objective - Vital Signs Vital signs: Vital Signs Temp 98.3 F 02/10/22 08:00 Pulse 130 H 02/10/22 11:37 Resp 27 H 02/10/22 11:00 BP 118/55 02/10/22 11:00 Pulse Ox 97 02/10/22 11:00 FiO2 50 02/10/22 11:13 Intake & Output 02/09/22 02/10/22 02/10/22 18:59 06:59 18:59 Intake Total 8451.249 7565.374 1270.666 Output Total 200 205 105 Balance 4674.587 4222.374 1165.666 Weight 138.5 kg 145 kg Intake: IV 1022 616 430 Cefepime 1 gm In Sodium 50 50 Chloride 0.9% 50 ml @ 12. 5 mls/hr IVPB Q12HR [facility] Rx#:[id number] Dextrose 5% in Water 1, 500 550 250 000 ml @ 50 mls/hr IV . Q23H [facility] with Sodium Bicarb (1 Meq/ml) 150 ml Rx#:[id number] Pressure bags 72 66 30 Sodium Chloride 0.9% 1, 100 000 ml @ 50 mls/hr IV . Q20H [facility] Rx#:[id number] levETIRAcetam IV 500 mg 100 In Sodium Chloride 0.9% 100 ml @ 400 mls/hr IVPB DAILY [facility] Rx#:[id number] metroNIDAZOLE-NS PMX 500 200 100 mg In Saline 1 100ml.bag @ 100 mls/hr IVPB Q8HR [facility] Rx#:[id number] Intake, IV Titration 387.755 263.374 165.666 Amount Norepinephrine 32 mg In 138.087 66.514 75.226 Sodium Chloride 0.9% 218 ml @ 0.05 MCG/KG/MIN 3. 246 mls/hr IV .Q24H [facility] Rx#:[id number] propofoL 1,000 mg In 249.668 196.86 90.44 Empty Bag 1 bag @ 5 MCG/ KG/MIN 4.08 mls/hr IV . Q24H [facility] Rx#:[id number] Oral 200 Tube Feeding 90 495 225 Hemodialysis 450 Other 90 Output: Urine 200 205 105 Other: Voiding Method Indwelling Catheter Indwelling Catheter Indwelling Catheter ABP, PAP, CO, CI - Last Documented Arterial Blood Pressure 110/48 - Exam GENERAL: The patient is a morbid obese gentleman lying in bed and does not appear in acute distress. HENT: Supple neck. LUNG: Intubated on ventilator. NEUROLOGICAL: Limited because of his condition. IV Propofol 25mcg/kg/min has been held for about 3 hours prior to my examination. Higher mental function: The patient is comatose. GCS 5 (E3, VT1, M1). Patient is not following commands or attempting to verbalize. He would turn his neck to side of voice and open his eye. Cranial nerves: The pupils are round, equal and reactive to light. Primary gaze is midline but would look side to side to side of voice. No facial weakness. Is breathing over the vent. Motor: The strength is in movement is appreciated. Normal bulk. Sensation: Unable to assess light touch but to pinprick he would grimace face of uppers. - Labs CBC & Chem 7: 02/09/22 05:25 02/10/22 04:00 Labs: Abnormal Lab Results - Last 24 Hours (Table) 02/09/22 02/09/22 02/09/22 Range/Units 12:04 15:54 18:15 PT 20.3 H (9.0-12.0) sec INR 2.0 H (<1.2) ABG pH (7.35-7.45) ABG HCO3 (21-25) mmol/L ABG O2 Saturation (94-97) % Hemoglobin (13.0-17.5) gm/dL Chloride (98-107) mmol/L Carbon Dioxide (22-30) mmol/L BUN (9-20) mg/dL Creatinine (0.66-1.25) mg/dL Glucose (74-99) mg/dL POC Glucose (mg/dL) 121 H 121 H (70-110) mg/dL Calcium (8.4-10.2) mg/dL Phosphorus (2.5-4.5) mg/dL AST (17-59) U/L Total Protein (6.3-8.2) g/dL Albumin (3.5-5.0) g/dL 02/09/22 02/09/22 02/10/22 Range/Units 20:38 23:25 04:00 PT (9.0-12.0) sec INR (<1.2) ABG pH (7.35-7.45) ABG HCO3 (21-25) mmol/L ABG O2 Saturation (94-97) % Hemoglobin (13.0-17.5) gm/dL Chloride 108 H (98-107) mmol/L Carbon Dioxide 16 L (22-30) mmol/L BUN 56 H (9-20) mg/dL Creatinine 4.44 H (0.66-1.25) mg/dL Glucose 151 H (74-99) mg/dL POC Glucose (mg/dL) 119 H 128 H (70-110) mg/dL Calcium 7.4 L (8.4-10.2) mg/dL Phosphorus 7.1 H (2.5-4.5) mg/dL AST 15 L (17-59) U/L Total Protein 4.6 L (6.3-8.2) g/dL Albumin 1.9 L (3.5-5.0) g/dL 02/10/22 02/10/22 02/10/22 Range/Units 04:00 05:00 05:57 PT 14.5 H (9.0-12.0) sec INR 1.4 H (<1.2) ABG pH 7.29 L (7.35-7.45) ABG HCO3 18 L (21-25) mmol/L ABG O2 Saturation 97.3 H (94-97) % Hemoglobin 11.0 L (13.0-17.5) gm/dL Chloride (98-107) mmol/L Carbon Dioxide (22-30) mmol/L BUN (9-20) mg/dL Creatinine (0.66-1.25) mg/dL Glucose (74-99) mg/dL POC Glucose (mg/dL) 119 H (70-110) mg/dL Calcium (8.4-10.2) mg/dL Phosphorus (2.5-4.5) mg/dL AST (17-59) U/L Total Protein (6.3-8.2) g/dL Albumin (3.5-5.0) g/dL 02/10/22 Range/Units 11:37 PT (9.0-12.0) sec INR (<1.2) ABG pH (7.35-7.45) ABG HCO3 (21-25) mmol/L ABG O2 Saturation (94-97) % Hemoglobin (13.0-17.5) gm/dL Chloride (98-107) mmol/L Carbon Dioxide (22-30) mmol/L BUN (9-20) mg/dL Creatinine (0.66-1.25) mg/dL Glucose (74-99) mg/dL POC Glucose (mg/dL) 182 H (70-110) mg/dL Calcium (8.4-10.2) mg/dL Phosphorus (2.5-4.5) mg/dL AST (17-59) U/L Total Protein (6.3-8.2) g/dL Albumin (3.5-5.0) g/dL Microbiology - Last 24 Hours (Table) 02/04/22 09:39 Blood Culture - Final Blood No Growth after 144 hours 02/04/22 09:39 Blood Culture - Final Blood No Growth after 144 hours 02/05/22 23:55 Gram Stain - Final Sputum Sputum Culture - Final Stenotrophomonas maltophilia Lynda albicans Assessment and Plan Assessment: * Altered mental status due to multifactorial: Metabolic encephalopathy/uremic encephalopathy (getting dialysis) and septicemia from cellulitis of right foot ulcer. Also due to medication effect (IV Propofol). Myoclonic twitching has resolved. * Cellulitis with right foot ulcer * Septicemia with staph aureus. * Status post fall with L1 compression fracture * Moderate renal insufficiency, worsening getting dialysis (day #2). * Coagulopathy * Right sided rib fractures secondary to fall. 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 * Peripheral edema. * Long-standing history of frequent falls, uses walker * COPD * Chronic tobacco use * Diabetes with hemoglobin A1c 8.1 * Probable diabetic peripheral neuropathy. * Peripheral arterial disease Plan: * EEG 02/03/2022 is reported as did not reveal any status epilepticus. Some background slowing, with triphasic waves suggestive of metabolic encephalopathy. Lot of myogenic activity precluding optimal evaluation of brain waves. * Patient's renal functions are worsening. Dr. Stoll decreased Keppra to 500 mg once daily and recommended, if the patient recovers, then Keppra can be weaned off. * I will get repeat routine EEG and CT head. * I.D. is on obard. * Will defer the rest of medical management to the primary and ICU team. * Please avoid any sedation or opiates use if possible that will affect neurological examination. The plan is discussed with patient's nurse. Chava Jackson M.D. Neuro-Hospitalist. Time with Patient: Less than 30
--- NOTE | 2022-02-10 12:30 | P.PN ---
Progress Note - Text Progress Note Date: 02/10/22 This is a 61-year-old patient who follows with Dr. Sridhar Chan. Chronic stable medical conditions include diabetes, hypertension, hyperlipidemia, chronic low back problems, cigarette smoker. At the baseline uses a walker. Patient slipped in the bathroom falling on his buttock. Was not able to get up. By the EMS report he had fallen 24 hours prior to the picking him up. Patient been complaining of pain in the right rib cage in the lower back. X-ray was negative for fracture. Patient continued to have significant pain especially with deep breathing. Patient also had a congestive cough and wheezing. Some bloody sputum. Denies any fever and chills. Patient also complaining of urina ry retention and requesting a Shepard catheter. at the bedside. No fever no chills. Orthopedics consulted for the same. Patient normally has a bowel movement once a week. Patient also has a wound on the right foot lateral part of the ankles for about a week. Ischemic changes. From rubbing against a bedpost. Patient's INR in the ER was greater than 10. Was given vitamin K. 10 mg Patient bit with Coumadin toxicity, given vitamin K, acute COPD exacerbation, uncontrolled atrial flutter put on Lopressor, right chest wall pain. Computed tomography scan lumbar spine and chest was ordered. Large wound on the right lateral malleolus-ID and vascular consulted.. IV cefepime. February 01: Patient yesterday to see refused his computed tomography scan of the chest and lumbar spine. Done today. Right-sided rib fractures, pulmonary contusion confirm. L1 vertebral body 30% wedge compression fracture. Patient's girlfriend the bedside. It was discussed in detail with her. Patient wanting again and again to pull out his NG tube. Requests the to stay with the patient. Patient is also had the dark aspirate from the stomach for which she has NG tube. Surgery was consulted for the same. Also this morning right foot wound was debrided by Dr. Ibarra from vascular. Wound base was relatively clean. No undermining or tunneling. February 02: Delirious. NG tube to suction. Has been in restraints because point NG TUBE several times. Mumbling to himself. Dressing over the right ankle. Not in distress. Ileus. Chest x-ray showing right lower lobe/atelectasis. February 03: Hospital computer system was down. Patient remains delirious. Nasal cannula. Lethargic. Family the bedside. Antibiotics. A. fib uncontrolled. EEG evidence of metabolic encephalopathy. No clear-cut epileptiform activity. Started on Keppra by neurology. February 04: ICU: Girlfriend at the bedside. In atrial fibrillation uncontrolled. On IV Cardizem and IV amiodarone. NG tube to suction. Patient lethargic. Multiple breathing. 2 L. Oxygen. February 05: ICU. Atrial fibrillation better controlled this morning. Cardizem discontinued. Patient respiratory status worsened this morning and patient is intubated. FiO2 45 and a PEEP of 5. Atrial fibrillation, controlled. Drips include amiodarone, propofol, levo fed. Discussed with girlfriend the bedside. Understands prognosis guarded. February 06: ICU: Ventilated. FiO2 45 and a PEEP of 5. NG tube is clamped. On IV propofol. Sedated. Heart rate better controlled. Was started on Coumadin yesterday. Worsening renal function. Nephrology consulted. 02/07/2022 Patient is currently in the MICU and on mechanical ventilator. Tidal volume of 400, FiO2 40% and PEEP of 5. Patient is off pressor support today. Currently on propofol and is also on tube feeding. Chest x-ray showed stable exam with stable support lines and tubes. Correlate for congestive heart failure. Patient was given a dose of IV Lasix. Laboratory data showed WBC 18.4 hemoglobin 11.6 and platelets 458 Sodium 141 potassium 3.7 chloride 103 bicarb is 18 BUN 49 and creatinine 3.73 and calcium 7.3. INR is 2.2. Patient is being followed by nephrology cardiology and critical care team. 02/08/2022 Patient is currently on mechanical ventilator and sedated with propofol. Assist control with FiO2 40% and tidal volume of 400 and PEEP of 5. Patient is being continued on antibiotics above cefepime and Flagyl. Sputum gram stain gram-negative bacilli and Lynda. Chest x-ray today showed findings suggestive of slightly worsening CHF exacerbation as there is cardiomegaly with mild to moderate central venous congestion and small to moderate-sized bilateral pleural effusion. Laboratory test showed WBC increased to 23.6 hemoglobin 9.1 and platelets 162 INR 3.0 Sodium 139 potassium 4.3 chloride 113 bicarb is 40 BUN 54 and creatinine worsening to 4.36 Kaylynn 12: I resumed the care of patient today ICU: Med: 40/5. Received vitamin K 5 mg IV to bring the INR down for dialysis catheter. Drips include bicarbonate, propofol, epinephrine. Patient is a stage II coccyx is ulcer. Plan is to change the NG tube to on G-tube today. For possible colitis/fistula on antibiotics. at the bedside. February 10: ICU. Ventilator 50/5. Hemodialysis catheter placed last night. Hemodialyzed yesterday and getting dialyzed today. Remains in atrial fibrillation heart rate uncontrolled. Getting up sedation holiday. Drips include bicarbonate and norepinephrine. Propofol currently held. 2 feeding at 46 mL an hour. Does open eyes. Active Medications Acetaminophen (Acetaminophen Tab 325 Mg Tab) 650 mg PO Q6HR PRN PRN Reason: Mild Pain or Fever > 100.5 Albuterol/Ipratropium (Ipratropium-Albuterol 3 Ml Neb) 3 ml INHALATION RT-QID [facility] Last Admin: 02/10/22 11:25 Dose: 3 ml Amiodarone HCl (Amiodarone 200 Mg Tab) 200 mg PO BID [facility] Last Admin: 02/10/22 08:35 Dose: 200 mg Artificial Tears (Artificial Tears-Hypromellose Drops 15 Ml Btl) 2 drops BOTH EYES TID PRN PRN Reason: Dry Eye(s) Budesonide (Budesonide 1 Mg/2 Ml Nebu) 1 mg INHALATION RT-BID [facility] Last Admin: 02/10/22 07:41 Dose: 1 mg Calcium Acetate (Calcium Acetate 667 Mg Tab) 667 mg PO BID-W/MEALS [facility] Last Admin: 02/10/22 11:58 Dose: 667 mg Calcium Carbonate/Glycine (Calcium Carbonate 500 Mg Chewable) 1,000 mg PO Q4HR PRN PRN Reason: Dyspepsia Last Admin: 01/31/22 14:29 Dose: 1,000 mg Chlorhexidine Gluconate (Chlorhexidine Gluconate 15 Ml Cup) 15 ml MUCOUS MEM BID [facility] Last Admin: 02/10/22 08:47 Dose: 15 ml Collagenase (Collagenase 250 Unit/Gm Ointment 30 Gm Tube) 1 applic TOPICAL DAILY [facility]; Protocol Last Admin: 02/10/22 08:49 Dose: 1 applic Dextrose/Water (Dextrose 50% Syringe 50 Ml) 25 ml IVP PER PROTOCOL PRN; Protocol PRN Reason: Hypoglycemia Last Admin: 02/06/22 18:11 Dose: 25 ml Dextrose/Water (Dextrose 50% Syringe 50 Ml) 50 ml IVP PER PROTOCOL PRN; Protocol PRN Reason: Hypoglycemia Guaifenesin (Guaifenesin 600 Mg Tablet.Er) 600 mg PO QID [facility] Last Admin: 02/10/22 08:35 Dose: 600 mg Hydromorphone HCl (Hydromorphone 0.5 Mg/0.5 Ml Syringe) 0.5 mg IVP Q3HR PRN PRN Reason: Pain Last Admin: 02/03/22 03:43 Dose: 0.5 mg Propofol 1,000 mg/ IV Solution 100 mls @ 4.08 mls/hr IV .Q24H [facility]; Protocol Last Titration: 02/10/22 08:50 Dose: 0 mcg/kg/min, 0 mls/hr Metronidazole 500 mg/ IV (Solution) 100 mls @ 100 mls/hr IVPB Q8HR [facility]; Protocol Last Admin: 02/10/22 08:37 Dose: 100 mls/hr Cefepime HCl 1 gm/ Sodium (Chloride) 50 mls @ 12.5 mls/hr IVPB Q12HR [facility] Last Admin: 02/10/22 10:11 Dose: 12.5 mls/hr Norepinephrine Bitartrate 32 (mg/ Sodium Chloride) 250 mls @ 3.246 mls/hr IV .Q24H [facility]; Protocol Last Titration: 02/10/22 11:30 Dose: 0.9 mcg/kg/min, 58.43 mls/hr Levetiracetam 500 mg/ Sodium (Chloride) 105 mls @ 400 mls/hr IVPB DAILY [facility] Last Admin: 02/10/22 11:59 Dose: 400 mls/hr Sodium Bicarbonate 150 ml/ (Dextrose/Water) 1,150 mls @ 50 mls/hr IV .Q23H [facility] Last Admin: 02/10/22 08:48 Dose: 50 mls/hr Insulin Aspart (Insulin Aspart (Novolog) 100 Unit/Ml Vial) 0 unit SQ Q6HR [facility]; Protocol Last Admin: 02/10/22 11:57 Dose: 2 unit Insulin Detemir (Insulin Detemir (Levemir) 100 Unit/Ml Syr) 14 unit SQ HS [facility] Last Admin: 02/09/22 20:45 Dose: Not Given Lactulose (Lactulose 20 Gm/30 Ml Cup) 20 gm PO DAILY PRN PRN Reason: Constipation Last Admin: 02/06/22 15:26 Dose: 20 gm Melatonin (Melatonin 3 Mg Tablet) 3 mg PO HS PRN PRN Reason: Insomnia Metoprolol Tartrate (Metoprolol Tartrate 25 Mg Tab) 25 mg PO BID [facility] Last Admin: 02/10/22 08:50 Dose: Not Given Miscellaneous Information (Potassium Replacement Protocol 1 Each Misc) 1 each MISCELLANE DAILY PRN; Protocol PRN Reason: Per Protocol Miscellaneous Information (Warfarin Per Pharmacy) 1 each MISCELLANE DIRECTED PRN PRN Reason: Per Protocol Miscellaneous Information (Magnesium Replacement Protocol 1 Each Misc) 1 each MISCELLANE DAILY PRN; Protocol PRN Reason: Per Protocol Morphine Sulfate (Morphine Oral Soln 10 Mg/5 Ml Cup) 15 mg PO Q12H [facility] Last Admin: 02/10/22 11:58 Dose: 15 mg Naloxone HCl (Naloxone 0.4 Mg/Ml 1 Ml Vial) 0.2 mg IV Q2M PRN PRN Reason: Opioid Reversal Nicotine (Nicotine 21mg/24hr Patch) 1 patch TRANSDERM DAILY [facility] Last Admin: 02/10/22 08:48 Dose: 1 patch Ondansetron HCl (Ondansetron 4 Mg/2 Ml Vial) 4 mg IVP Q8HR PRN PRN Reason: Nausea And Vomiting Last Admin: 02/02/22 08:41 Dose: 4 mg Pantoprazole Sodium (Pantoprazole 40 Mg/10 Ml Vial) 40 mg IVP BID [facility] Last Admin: 02/10/22 08:47 Dose: 40 mg Pregabalin (Pregabalin 100 Mg Cap) 100 mg PO BID [facility] Last Admin: 02/10/22 08:35 Dose: 100 mg Sodium Bicarbonate (Sodium Bicarbonate Tab 650 Mg Tab) 1,300 mg PO QID [facility] Last Admin: 02/10/22 08:35 Dose: 1,300 mg Tamsulosin HCl (Tamsulosin 0.4 Mg Cap.Er.24h) 0.4 mg PO PC-BRKFST [facility] Last Admin: 02/10/22 08:35 Dose: 0.4 mg Past medical history to include: COPD, diabetes, hypertension, hyperlipidemia, back problems, TB, atrial fibrillation, on Coumadin Social history: Smokes a pack a day for close to 50 years. Stop doing alcohol some time ago. Lives with his significant other Sandra. Does use a walker. 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 Conjunctiva normal. HEENT: External appearance of nose and ears normal, oral cavity dry, OG tube with tube feeding, endotracheal tube NECK: JVD not raised; masses not palpable. HEART: Heart sounds irregular; mild edema. LUNGS: Respiratory rate increased; decreased breath sound, ABDOMEN: Soft, distended, nontender, liver spleen not palpable, no masses palpable. PSYCH: Unable to assess, patient lethargic DERMATOLOGICAL: Wound on right ankle lateral malleolus. Under dressing. Stage II coccygeal breakdown. See nursing notes INVESTIGATIONS, reviewed in the clinical context: February 10: Sodium 1:30 potassium 4.3 BUN 56 creatinine 4.44 albumin 1.9 Sputum: Stenostrophonas maltophilia, Lynda albicans February 09: W BC 26.5 hemoglobin 11.7 platelets 201 potassium 4.8 BUN 68 creatinine 4.66 Computed tomography scan abdomen and pelvis [February 06] 6 mm stone in the right renal collecting system. Some circumferential wall thickening of the cecum and ascending colon. Distention of the rectum 7.5 cm with solid stool. February 06: WBC 4, 16.4 hemoglobin 10.5, platelets 160, potassium 3, BUN 43, creatinine 3.17 February 05: WBC 19.1 hemoglobin 11.5 platelets 179 potassium 3.7 BUN 37, creatinine 2.38. ABG: PH 7.24, pCO2 60, pO2 111 February 04: Obesity, 16.2, hemoglobin 12.4 potassium 4.3, BUN 36, creatinine 1.84 EEG: Evidence of encephalopathy. No obvious epileptiform activity. 2-D echocardiogram: EF 60-65%. February 03: WBC 18.5, hemoglobin 12.5 potassium 3.2, BUN 35, creatinine 1.77 February 02: CBC 7.5 hemoglobin 13.3 platelets 166 potassium 3 view and 29 creatinine 1.6 to Renal ultrasound: Shows bilateral normal cortical medullary thickness. February 01: WBC 17.1 hemoglobin 14.8 UA: Blood large, leukoesterase moderate WBC 28 nitrite negative Lumbar spine CT: Anterior wedge compression deformity of L1. Multiple level DJD. 7 mm calculus right renal pelvis. CT chest without contrast: Right lateral eighth through 10th rib fractures with associated gas trace hemothorax right lower lobe pulmonary contusion/atelectasis. Patchy) disease left upper lobe. WBC 25.8 hemoglobin 14.1 platelets 217 INR greater than 10 sodium 131 potassium 3.9. 24 creatinine 1.8 to EKG tracing personally reviewed by me-atrial flutter. Rate 132 Foot/Lumbar/sacral coccyx: Spondylitic changes. No fracture. Chest x-ray film personally reviewed by me-clinically. Possible hyperinflation Assessment and plan: -Coumadin toxicity. INR greater than 10. On presentation: 10 mg vitamin K in the ER. Hemoptysis on presentation. Coumadin resumed on February 05.. - right lung contusion.-Secondary to fall. hemoptysis on presentation -Pneumonia, secondary to Stenostrophonas maltophilia IV cefepime -Sepsis with positive blood cultures MSSA, likely source right ankle. From January 31. IV cefepime. February 04 blood culture negative -Acute hypoxic respiratory failure, multifactorial: ventilator support,: Slow to respond Patient intubated on February 05 -Acute COPD exacerbation, with chronic bronchitis component in a current smoker: Slow to respond DuoNeb. Nebulized Pulmicort. Mucinex. -Chronic nicotine dependence, cigarette smoker Nicotine patch -Persistent atrial flutter,: Remains controlled Lopressor 50 mg 3 times a day. 2-D echocardiogram unremarkable. Oral amiodarone Coumadin started on February 05 -Possible CK D with possible acute component. creatinine was 0.8 in April 2019. Renal ultrasound unremarkable. UA shows trace protein. IV fluids.. -Acute kidney injury, ATN, likely cardiorenal syndrome.: Not improving Follow with nephrology. Hemodialysis started February 09 -Acute right-sided 8-10 ribs fracture secondary to fall K pad -Diabetes mellitus type 2, chronically on oral hypoglycemic Hold Glucotrol. Sliding scale insulin. Levemir 14 units daily at bedtime -Diabetic peripheral neuropathy Decreased dose of Lyrica in the setting of renal failure. 100 mg twice a day -Chronic low back pain: MS Contin 15 mg every 12, Ephraim 7.5 twice a day when necessary -Anxiety depression not otherwise specified Wellbutrin XL 100 mg twice a day -Hyperlipidemia Lipitor 40 mg daily at bedtime -Right ankle lateral, diabetic wound, stage II acute. Wound culture positive for Streptococcus agalactiae and Staphylococcus aureus. IV Ancef. Follow with ID Patient has poor distal pulses. February 01 wound was debrided by Dr. Ibarra. Clean base. -Acute L1 30% wedge fracture secondary to fall LSO brace. Be followed by Dr. Damon -Acute delirium multifactorial. Slow to respond -Acute ileus, NG tube for decompression.; clamped.: Corrected Being followed by surgery. -Possible colitis /fistula on computed tomography scan. IV Flagyl. Cefepime. Followed by surgery Dialysis catheter placed yesterday evening. Hemodialysis started yesterday. No hemodialysis today. Getting a sedation holiday. Does open eyes. A. fib remains uncontrolled. On cefepime and Flagyl. Prognosis guarded.
[2022-02-10 16:34] LABS: Amorphous Sediment,Urine Rare /hpf; Appearance,Urine Cloudy (Clear); Bacteria,Urine Rare /hpf; Bilirubin,Urine Negative (Negative); Blood,Urine Large (Negative); Color,Urine Yellow; Glucose,Urine (UA) Negative (Negative); Ketones,Urine Negative (Negative); Leukocyte Esterase,Urine Small (Negative); Nitrite,Urine Negative (Negative); PH, Urine 5.5 (5.0-8.0); Protein,Urine 1+ (Negative); RBC,Urine >182 /hpf (0-5); Specific Gravity,Urine 1.011 (1.001-1.035); Urobilinogen,Urine <2.0 mg/dL (<2.0); WBC,Urine 19 /hpf (0-5)
[2022-02-10 17:10] LABS: Glucose,Whole Blood 164 mg/dL (70-110)
--- NOTE | 2022-02-10 17:12 | CT ---
EXAMINATION TYPE: CT brain wo con DATE OF EXAM: 02/10/2022 COMPARISON: 02/02/2022 HISTORY: AMS CT DLP: 1090.4 mGycm Automated exposure control for dose reduction was used. There is mild cerebral atrophy. There is 4 x 2 cm area of hypodensity medial left occipital lobe cons istent with old infarct. There is no mass effect or midline shift. No sign of intracranial hemorrhage . Sella turcica is normal. There is normal aeration of the mastoid sinuses. IMPRESSION: Old left occipital lobe infarct. Mild atrophy. No acute intracranial abnormality. No significant diallo ge compared to recent exam.
[2022-02-10] MEDS ORDERED: WARFARIN 3 MG TAB PO ONE (18:00)
[2022-02-10] MEDS: INSULIN DETEMIR (LEVEMIR) 100 UNIT/ML SYR SQ SCH (21:05)
[2022-02-10 21:06] LABS: Glucose,Whole Blood 117 mg/dL (70-110)
--- NOTE | 2022-02-10 21:41 | P.PN ---
Subjective Progress Note Date: 02/09/22 Principal diagnosis: Right foot infected pressure ulcer and bacteremia Patient is a 61-year-old male presented to the hospital for evaluation of fall patient also noticed to have a wound on the right lateral foot with some necrotic edges which has been debridement by vascular surgery on 01/31/2022.Patient has been transthoracic because of significant mental status changes, The patient ended up getting intubated, the patient also have worsening of the kidney function requiring dialysis catheter placement On today's evaluation that is 02/09/2022, The patient remains to be afebrile, the patient FiO2 stable at 40%, no significant purulent secretion through the ET diarrhea reported by the nursing staff Objective - Vital Signs Vital signs: Vital Signs Temp 99.2 F 02/09/22 12:00 Pulse 114 H 02/09/22 14:00 Resp 25 H 02/09/22 14:00 BP 121/55 02/09/22 14:00 Pulse Ox 86 L 02/09/22 14:00 FiO2 40 02/09/22 12:00 Intake & Output 02/08/22 02/09/22 02/09/22 18:59 06:59 18:59 Intake Total 2583.351 2011.257 860.068 Output Total 165 280 140 Balance 2418.351 1731.257 720.068 Weight 138.5 kg 138.5 kg Intake: IV 962 978 642 Cefepime 1 gm In Sodium 100 350 50 Chloride 0.9% 50 ml @ 12. 5 mls/hr IVPB Q12HR [facility] Rx#:[id number] Dextrose 5% in Water 1, 250 000 ml @ 50 mls/hr IV . Q23H [facility] with Sodium Bicarb (1 Meq/ml) 150 ml Rx#:[id number] Pressure bags 72 78 42 Sodium Chloride 0.9% 1, 590 350 100 000 ml @ 50 mls/hr IV . Q20H [facility] Rx#:[id number] levETIRAcetam IV 500 mg 100 100 In Sodium Chloride 0.9% 100 ml @ 400 mls/hr IVPB DAILY [facility] Rx#:[id number] metroNIDAZOLE-NS PMX 500 200 100 100 mg In Saline 1 100ml.bag @ 100 mls/hr IVPB Q8HR [facility] Rx#:[id number] Intake, IV Titration 1133.351 637.257 218.068 Amount Norepinephrine 32 mg In 96.212 Sodium Chloride 0.9% 218 ml @ 0.05 MCG/KG/MIN 3. 246 mls/hr IV .Q24H [facility] Rx#:[id number] Norepinephrine 4 mg In 417.479 408.153 Sodium Chloride 0.9% 250 ml @ 0.05 MCG/KG/MIN 25. 908 mls/hr IV .Q9H49M [facility] Rx#:[id number] Sodium Chloride 0.9% 500 500 ml 500 ml @ 999 mls/hr IV .Q31M [facility] Rx#:[id number] propofoL 1,000 mg In 215.872 229.104 121.856 Empty Bag 1 bag @ 5 MCG/ KG/MIN 4.08 mls/hr IV . Q24H [facility] Rx#:[id number] Tube Feeding 363 396 Other 125 Output: Urine 165 280 140 Other: Voiding Method Indwelling Catheter Indwelling Catheter Indwelling Catheter ABP, PAP, CO, CI - Last Documented Arterial Blood Pressure 98/46 - Exam GENERAL DESCRIPTION: Middle-aged male intubated on the vent. LUNGS: Unlabored breathing. Decreased breath sound at the base HEART: S1, S2, regular rate and rhythm. No loud murmur ABDOMEN: Soft, no tenderness , guarding or rigidity, no organomegaly EXTREMITIES: Right foot wound is currently dressed no drainage on the dressing - Labs CBC & Chem 7: 02/09/22 05:25 02/10/22 04:00 Labs: Abnormal Lab Results - Last 24 Hours (Table) 02/08/22 02/09/22 02/09/22 Range/Units 23:39 05:15 05:25 WBC (3.8-10.6) k/uL RBC (4.30-5.90) m/uL Hgb (13.0-17.5) gm/dL MCHC (31.0-37.0) g/dL RDW (11.5-15.5) % Neutrophils # (1.3-7.7) k/uL Monocytes # (0-1.0) k/uL PT 32.5 H (9.0-12.0) sec INR 3.3 H (<1.2) ABG pH 7.21 L (7.35-7.45) ABG pCO2 34 L (35-45) mmHg ABG HCO3 14 L (21-25) mmol/L ABG Total CO2 15 L (19-24) mmol/L Hemoglobin 11.7 L (13.0-17.5) gm/dL Chloride (98-107) mmol/L Carbon Dioxide (22-30) mmol/L BUN (9-20) mg/dL Creatinine (0.66-1.25) mg/dL Glucose (74-99) mg/dL POC Glucose (mg/dL) 120 H (70-110) mg/dL Calcium (8.4-10.2) mg/dL AST (17-59) U/L Total Protein (6.3-8.2) g/dL Albumin (3.5-5.0) g/dL 02/09/22 02/09/22 02/09/22 Range/Units 05:25 05:25 05:27 WBC 26.5 H (3.8-10.6) k/uL RBC 4.27 L (4.30-5.90) m/uL Hgb 11.7 L (13.0-17.5) gm/dL MCHC 29.3 L (31.0-37.0) g/dL RDW 16.6 H (11.5-15.5) % Neutrophils # 22.9 H (1.3-7.7) k/uL Monocytes # 1.3 H (0-1.0) k/uL PT (9.0-12.0) sec INR (<1.2) ABG pH (7.35-7.45) ABG pCO2 (35-45) mmHg ABG HCO3 (21-25) mmol/L ABG Total CO2 (19-24) mmol/L Hemoglobin (13.0-17.5) gm/dL Chloride 114 H (98-107) mmol/L Carbon Dioxide 13 L (22-30) mmol/L BUN 60 H (9-20) mg/dL Creatinine 4.66 H (0.66-1.25) mg/dL Glucose 133 H (74-99) mg/dL POC Glucose (mg/dL) 135 H (70-110) mg/dL Calcium 7.2 L (8.4-10.2) mg/dL AST 14 L (17-59) U/L Total Protein 4.9 L (6.3-8.2) g/dL Albumin 2.0 L (3.5-5.0) g/dL 02/09/22 Range/Units 12:04 WBC (3.8-10.6) k/uL RBC (4.30-5.90) m/uL Hgb (13.0-17.5) gm/dL MCHC (31.0-37.0) g/dL RDW (11.5-15.5) % Neutrophils # (1.3-7.7) k/uL Monocytes # (0-1.0) k/uL PT (9.0-12.0) sec INR (<1.2) ABG pH (7.35-7.45) ABG pCO2 (35-45) mmHg ABG HCO3 (21-25) mmol/L ABG Total CO2 (19-24) mmol/L Hemoglobin (13.0-17.5) gm/dL Chloride (98-107) mmol/L Carbon Dioxide (22-30) mmol/L BUN (9-20) mg/dL Creatinine (0.66-1.25) mg/dL Glucose (74-99) mg/dL POC Glucose (mg/dL) 121 H (70-110) mg/dL Calcium (8.4-10.2) mg/dL AST (17-59) U/L Total Protein (6.3-8.2) g/dL Albumin (3.5-5.0) g/dL Microbiology - Last 24 Hours (Table) 02/04/22 09:39 Blood Culture - Preliminary Blood No Growth after 120 hours 02/04/22 09:39 Blood Culture - Preliminary Blood No Growth after 120 hours 02/05/22 23:55 Gram Stain - Final Sputum Sputum Culture - Final Stenotrophomonas maltophilia Lynda albicans Assessment and Plan (1) Cellulitis Current Visit: Yes Status: Acute Code(s): L03.90 - CELLULITIS, UNSPECIFIED SNOMED Code(s): 642609248 Plan: 1patient with right foot unstageable pressure ulcer with surrounding necrotic area and cellulitis x-rays do not show any bony changes likely from gram- positive skin caleb and less likely gram-negative pathogen, patient is status post vascular surgery evaluation and debridement and deep cultureWhich has been finalized with strep and MSSA. 2-patient with MSSA bacteremia source is likely right foot infected pressure ulcer, Repeat blood culture has been negative 3Patient did have significant abnormality seen on the CT obtained by surgery with concern for possible fecal impaction and some inflammation of the colon and possible fistula. 4- patient sputum is now growing gram-negative bacilli, patient is currently covered with cefepime and Flagyl and monitor clinical course closely Time with Patient: Less than 30
--- NOTE | 2022-02-10 21:44 | P.PN ---
Subjective Progress Note Date: 02/10/22 Principal diagnosis: Right foot infected pressure ulcer and bacteremia Patient is a 61-year-old male presented to the hospital for evaluation of fall patient also noticed to have a wound on the right lateral foot with some necrotic edges which has been debridement by vascular surgery on 01/31/2022.Patient has been transthoracic because of significant mental status changes, The patient ended up getting intubated, the patient also have worsening of the kidney function requiring dialysis catheter placement and has been started on dialysis as of 02/09/2022 On today's evaluation that is 02/10/2022, The patient continues to be afebrile, the patient FiO2 is slightly up to 50 %, no significant purulent secretion through the ET diarrhea or any changes reported by the nursing staff, patient requiring low-dose pressor support Objective - Vital Signs Vital signs: Vital Signs Temp 98.3 F 02/10/22 08:00 Pulse 130 H 02/10/22 11:37 Resp 27 H 02/10/22 11:00 BP 118/55 02/10/22 11:00 Pulse Ox 97 02/10/22 11:00 FiO2 50 02/10/22 11:13 Intake & Output 02/09/22 02/10/22 02/10/22 18:59 06:59 18:59 Intake Total 8233.023 6979.374 1540.917 Output Total 200 205 120 Balance 4410.088 3870.374 1420.917 Weight 138.5 kg 145 kg Intake: IV 1022 616 586 Cefepime 1 gm In Sodium 50 50 Chloride 0.9% 50 ml @ 12. 5 mls/hr IVPB Q12HR [facility] Rx#:[id number] Dextrose 5% in Water 1, 500 550 300 000 ml @ 50 mls/hr IV . Q23H [facility] with Sodium Bicarb (1 Meq/ml) 150 ml Rx#:[id number] Pressure bags 72 66 36 Sodium Chloride 0.9% 1, 100 000 ml @ 50 mls/hr IV . Q20H [facility] Rx#:[id number] levETIRAcetam IV 500 mg 100 100 In Sodium Chloride 0.9% 100 ml @ 400 mls/hr IVPB DAILY [facility] Rx#:[id number] metroNIDAZOLE-NS PMX 500 200 100 mg In Saline 1 100ml.bag @ 100 mls/hr IVPB Q8HR [facility] Rx#:[id number] Intake, IV Titration 387.755 263.374 234.917 Amount Norepinephrine 32 mg In 138.087 66.514 144.477 Sodium Chloride 0.9% 218 ml @ 0.05 MCG/KG/MIN 3. 246 mls/hr IV .Q24H [facility] Rx#:[id number] propofoL 1,000 mg In 249.668 196.86 90.44 Empty Bag 1 bag @ 5 MCG/ KG/MIN 4.08 mls/hr IV . Q24H [facility] Rx#:[id number] Oral 200 Tube Feeding 90 495 270 Hemodialysis 450 Other 90 Output: Urine 200 205 120 Other: Voiding Method Indwelling Catheter Indwelling Catheter Indwelling Catheter ABP, PAP, CO, CI - Last Documented Arterial Blood Pressure 110/48 - Exam GENERAL DESCRIPTION: Middle-aged male intubated on the vent. LUNGS: Unlabored breathing. Decreased breath sound at the base HEART: S1, S2, regular rate and rhythm. No loud murmur ABDOMEN: Soft, no tenderness , guarding or rigidity, no organomegaly EXTREMITIES: Right foot wound is currently dressed no drainage on the dressing - Labs CBC & Chem 7: 02/09/22 05:25 02/10/22 04:00 Labs: Abnormal Lab Results - Last 24 Hours (Table) 02/09/22 02/09/22 02/09/22 Range/Units 15:54 18:15 20:38 PT 20.3 H (9.0-12.0) sec INR 2.0 H (<1.2) ABG pH (7.35-7.45) ABG HCO3 (21-25) mmol/L ABG O2 Saturation (94-97) % Hemoglobin (13.0-17.5) gm/dL Chloride (98-107) mmol/L Carbon Dioxide (22-30) mmol/L BUN (9-20) mg/dL Creatinine (0.66-1.25) mg/dL Glucose (74-99) mg/dL POC Glucose (mg/dL) 121 H 119 H (70-110) mg/dL Calcium (8.4-10.2) mg/dL Phosphorus (2.5-4.5) mg/dL AST (17-59) U/L Total Protein (6.3-8.2) g/dL Albumin (3.5-5.0) g/dL 02/09/22 02/10/22 02/10/22 Range/Units 23:25 04:00 04:00 PT 14.5 H (9.0-12.0) sec INR 1.4 H (<1.2) ABG pH (7.35-7.45) ABG HCO3 (21-25) mmol/L ABG O2 Saturation (94-97) % Hemoglobin (13.0-17.5) gm/dL Chloride 108 H (98-107) mmol/L Carbon Dioxide 16 L (22-30) mmol/L BUN 56 H (9-20) mg/dL Creatinine 4.44 H (0.66-1.25) mg/dL Glucose 151 H (74-99) mg/dL POC Glucose (mg/dL) 128 H (70-110) mg/dL Calcium 7.4 L (8.4-10.2) mg/dL Phosphorus 7.1 H (2.5-4.5) mg/dL AST 15 L (17-59) U/L Total Protein 4.6 L (6.3-8.2) g/dL Albumin 1.9 L (3.5-5.0) g/dL 02/10/22 02/10/22 02/10/22 Range/Units 05:00 05:57 11:37 PT (9.0-12.0) sec INR (<1.2) ABG pH 7.29 L (7.35-7.45) ABG HCO3 18 L (21-25) mmol/L ABG O2 Saturation 97.3 H (94-97) % Hemoglobin 11.0 L (13.0-17.5) gm/dL Chloride (98-107) mmol/L Carbon Dioxide (22-30) mmol/L BUN (9-20) mg/dL Creatinine (0.66-1.25) mg/dL Glucose (74-99) mg/dL POC Glucose (mg/dL) 119 H 182 H (70-110) mg/dL Calcium (8.4-10.2) mg/dL Phosphorus (2.5-4.5) mg/dL AST (17-59) U/L Total Protein (6.3-8.2) g/dL Albumin (3.5-5.0) g/dL Microbiology - Last 24 Hours (Table) 02/04/22 09:39 Blood Culture - Final Blood No Growth after 144 hours 02/04/22 09:39 Blood Culture - Final Blood No Growth after 144 hours Assessment and Plan (1) Cellulitis Current Visit: Yes Status: Acute Code(s): L03.90 - CELLULITIS, UNSPECIFIED SNOMED Code(s): 293095291 Plan: 1patient with right foot unstageable pressure ulcer with surrounding necrotic area and cellulitis x-rays do not show any bony changes likely from gram- positive skin caleb and less likely gram-negative pathogen, patient is status post vascular surgery evaluation and debridement and deep cultureWhich has been finalized with strep and MSSA. 2-patient with MSSA bacteremia source is likely right foot infected pressure ulcer, Repeat blood culture has been negative 3Patient did have significant abnormality seen on the CT obtained by surgery with concern for possible fecal impaction and some inflammation of the colon and possible fistula. 4- patient sputum has been finalized with stenotrophomonas sensitive to Fortaz and should be covered with cefepime also showing Lynda albicans the patient did have persistent elevated white count and possible component of oropharyngeal candidiasis, Diflucan cannot be used as the patient is on amiodarone and we'll add Eraxis and see clinical response Time with Patient: Less than 30
[2022-02-10] MEDS ORDERED: ANIDULAFUNGIN 200 MG in SODIUM CHLORIDE 0.9% 200 ML IVPB ONE (22:00)
[2022-02-10 23:16] LABS: Glucose,Whole Blood 140 mg/dL (70-110)
[2022-02-11] MEDS: MORPHINE ORAL SOLN 10 MG/5 ML CUP PO SCH ×2 (00:43→12:34)
[2022-02-11] MEDS: metroNIDAZOLE-NS PMX 500 MG in SALINE 1 100ML.BAG IVPB SCH ×3 (00:43→15:45)
[2022-02-11] MEDS: INSULIN ASPART (NovoLOG) 100 UNIT/ML VIAL SQ SCH ×4 (01:52→17:48)
[2022-02-11 04:50] LABS: INR 1.3 (<1.2); Prothrombin Time 13.6 sec (9.0-12.0)
[2022-02-11 05:31] LABS: Anisocytosis Slight; HCT 34.3 % (39.0-53.0); HGB 10.7 gm/dL (13.0-17.5); Hypochromasia Marked; MCH 28.3 pg (25.0-35.0); MCV 91.3 fL (80.0-100.0); Mean Platelet Volume 9.7; Platelet Count 174 k/uL (150-450); RBC 3.76 m/uL (4.30-5.90); RDW 16.9 % (11.5-15.5)
[2022-02-11] MEDS: NOREPINEPHRINE 32 MG in SODIUM CHLORIDE 0.9% 218 ML IV SCH (05:54)
[2022-02-11 06:00] LABS: Glucose,Whole Blood 129 mg/dL (70-110)
[2022-02-11 06:12] LABS: ABG Base Excess -4.6 mmol/L; ABG HCO3 21 mmol/L (21-25); ABG Hematocrit 32 % (34.0-46.0); ABG Oxygen Saturation 97.5 % (94-97); ABG PCO2 40 mmHg (35-45); ABG PH 7.33 (7.35-7.45); ABG PO2 97 mmHg (83-108); ABG TCO2 23 mmol/L (19-24); Allen Test Performed? Yes
--- NOTE | 2022-02-11 06:35 | P.PN ---
Subjective Progress Note Date: 02/11/22 Principal diagnosis: Persistent atrial fibrillation This is a 61-year-old gentleman who was admitted to the hospital with acute on chronic respiratory failure as well as metabolic encephalopathy and septic shock. We involved in the care of the patient for the management of persistent atrial fibrillation. The patient was seen this morning. He remains intubated on mechanical ventilation. He remains hemodynamically unstable and requiring vasopressors was norepinephrine. He has been in and out atrial fibrillation. He is currently on amiodarone. Once he goes to atrial fibrillation the heart rate has been under good control. Metoprolol is on hold at this point in the light off hypotension requiring vasopressors. INR today is 1.3 I'm going to give the patient 4 mg of Coumadin today and recheck the INR tomorrow. He underwent dialysis yesterday and during dialysis he was a slightly tachycardic. Objective - Vital Signs Vital signs: Vital Signs Temp 99.2 F 02/11/22 04:00 Pulse 105 H 02/11/22 06:00 Resp 24 02/11/22 06:00 BP 128/57 02/11/22 06:00 Pulse Ox 97 02/11/22 06:00 FiO2 50 02/11/22 04:00 Intake & Output 02/10/22 02/10/22 02/11/22 06:59 18:59 06:59 Intake Total 2872.134 4743.642 1386.853 Output Total 205 1015 220 Balance 8346.337 4298.642 1166.853 Weight 145 kg 146 kg Intake: IV 616 1010 636 Cefepime 1 gm In Sodium 50 Chloride 0.9% 50 ml @ 12. 5 mls/hr IVPB Q12HR [facility] Rx#:[id number] Dextrose 5% in Water 1, 550 600 600 000 ml @ 50 mls/hr IV . Q23H [facility] with Sodium Bicarb (1 Meq/ml) 150 ml Rx#:[id number] Pressure bags 66 60 36 levETIRAcetam IV 500 mg 100 In Sodium Chloride 0.9% 100 ml @ 400 mls/hr IVPB DAILY [facility] Rx#:[id number] metroNIDAZOLE-NS PMX 500 200 mg In Saline 1 100ml.bag @ 100 mls/hr IVPB Q8HR [facility] Rx#:[id number] Intake, IV Titration 263.374 406.642 330.853 Amount Norepinephrine 32 mg In 66.514 227.802 22.977 Sodium Chloride 0.9% 218 ml @ 0.05 MCG/KG/MIN 3. 246 mls/hr IV .Q24H [facility] Rx#:[id number] propofoL 1,000 mg In 196.86 178.84 307.876 Empty Bag 1 bag @ 5 MCG/ KG/MIN 4.08 mls/hr IV . Q24H [facility] Rx#:[id number] Tube Feeding 495 540 360 Hemodialysis 750 Other 90 60 Output: Urine 205 215 220 Hemodialysis 800 Other: Voiding Method Indwelling Catheter Indwelling Catheter Indwelling Catheter ABP, PAP, CO, CI - Last Documented Arterial Blood Pressure 128/51 - Constitutional General appearance: Present: no acute distress - Respiratory Respiratory: bilateral: diminished - Cardiovascular Rhythm: regular Heart sounds: normal: S1, S2 - Labs CBC & Chem 7: 02/11/22 04:16 02/10/22 04:00 Labs: Abnormal Lab Results - Last 24 Hours (Table) 02/10/22 02/10/22 02/10/22 Range/Units 04:00 11:37 16:08 WBC (3.8-10.6) k/uL RBC (4.30-5.90) m/uL Hgb (13.0-17.5) gm/dL Hct (39.0-53.0) % RDW (11.5-15.5) % PT (9.0-12.0) sec INR (<1.2) ABG pH (7.35-7.45) ABG O2 Saturation (94-97) % ABG Hematocrit (34.0-46.0) % Hemoglobin (13.0-17.5) gm/dL POC Glucose (mg/dL) 182 H (70-110) mg/dL Procalcitonin 2.07 H (0.02-0.09) ng/mL Urine Protein 1+ H (Negative) Urine Blood Large H (Negative) Ur Leukocyte Esterase Small H (Negative) Urine RBC >182 H (0-5) /hpf Urine WBC 19 H (0-5) /hpf Amorphous Sediment Rare H (None) /hpf Urine Bacteria Rare H (None) /hpf 02/10/22 02/10/22 02/10/22 Range/Units 17:08 21:04 23:15 WBC (3.8-10.6) k/uL RBC (4.30-5.90) m/uL Hgb (13.0-17.5) gm/dL Hct (39.0-53.0) % RDW (11.5-15.5) % PT (9.0-12.0) sec INR (<1.2) ABG pH (7.35-7.45) ABG O2 Saturation (94-97) % ABG Hematocrit (34.0-46.0) % Hemoglobin (13.0-17.5) gm/dL POC Glucose (mg/dL) 164 H 117 H 140 H (70-110) mg/dL Procalcitonin (0.02-0.09) ng/mL Urine Protein (Negative) Urine Blood (Negative) Ur Leukocyte Esterase (Negative) Urine RBC (0-5) /hpf Urine WBC (0-5) /hpf Amorphous Sediment (None) /hpf Urine Bacteria (None) /hpf 02/11/22 02/11/22 02/11/22 Range/Units 04:16 04:16 05:59 WBC 21.0 H (3.8-10.6) k/uL RBC 3.76 L (4.30-5.90) m/uL Hgb 10.7 L (13.0-17.5) gm/dL Hct 34.3 L (39.0-53.0) % RDW 16.9 H (11.5-15.5) % PT 13.6 H (9.0-12.0) sec INR 1.3 H (<1.2) ABG pH (7.35-7.45) ABG O2 Saturation (94-97) % ABG Hematocrit (34.0-46.0) % Hemoglobin (13.0-17.5) gm/dL POC Glucose (mg/dL) 129 H (70-110) mg/dL Procalcitonin (0.02-0.09) ng/mL Urine Protein (Negative) Urine Blood (Negative) Ur Leukocyte Esterase (Negative) Urine RBC (0-5) /hpf Urine WBC (0-5) /hpf Amorphous Sediment (None) /hpf Urine Bacteria (None) /hpf 02/11/22 Range/Units 06:11 WBC (3.8-10.6) k/uL RBC (4.30-5.90) m/uL Hgb (13.0-17.5) gm/dL Hct (39.0-53.0) % RDW (11.5-15.5) % PT (9.0-12.0) sec INR (<1.2) ABG pH 7.33 L (7.35-7.45) ABG O2 Saturation 97.5 H (94-97) % ABG Hematocrit 32 L (34.0-46.0) % Hemoglobin 10.5 L (13.0-17.5) gm/dL POC Glucose (mg/dL) (70-110) mg/dL Procalcitonin (0.02-0.09) ng/mL Urine Protein (Negative) Urine Blood (Negative) Ur Leukocyte Esterase (Negative) Urine RBC (0-5) /hpf Urine WBC (0-5) /hpf Amorphous Sediment (None) /hpf Urine Bacteria (None) /hpf Microbiology - Last 24 Hours (Table) 02/04/22 09:39 Blood Culture - Final Blood No Growth after 144 hours 02/04/22 09:39 Blood Culture - Final Blood No Growth after 144 hours Assessment and Plan Assessment: Assessment Acute on chronic respiratory failure Metabolic encephalopathy Septic shock Persistent atrial fibrillation Renal failure Plan Try to wean the patient from norepinephrine Given the patient's Coumadin today and repeat the INR tomorrow The patient underwent yesterday dialysis catheter placement Continue the current dose of amiodarone as well as metoprolol Follow-up the patient
[2022-02-11] MEDS: DEXTROSE 5% IN WATER 1,000 ML with SODIUM BICARB (1 MEQ/ML) 150 ML IV SCH (07:15)
--- NOTE | 2022-02-11 07:28 | XR ---
EXAMINATION TYPE: XR chest 1V portable DATE OF EXAM: 02/11/2022 5:38 AM COMPARISON: Chest radiograph from two days prior. TECHNIQUE: XR chest 1V portable Portable AP radiograph of the chest. CLINICAL INDICATION:Male, 61 years old with history of Tube placement; FINDINGS: Lungs/Pleura: Low lung volumes are present. There is no evidence of suspected layering pleural effusi ons. Effusion, focal consolidation, or pneumothorax. Pulmonary vascularity: Unremarkable. Heart/mediastinum: Cardiomediastinal silhouette is unremarkable. Musculoskeletal: No acute osseous pathology. Lines/Tubes: Endotracheal tube with distal tip 6.7 cm above the jodi Nasogastric tube with its distal tip and side-port projecting under the diaphragm. Right central venous catheter with distal tip at the cavoatrial junction. IMPRESSION: 1. Support line and tubes in appropriate position. 2. Layering by lateral pleural effusions with associated atelectasis.
[2022-02-11] MEDS: BUDESONIDE 1 MG/2 ML NEBU INHALATION SCH ×2 (07:47→19:33)
[2022-02-11] MEDS: IPRATROPIUM-ALBUTEROL 3 ML NEB INHALATION SCH ×4 (07:48→19:33)
[2022-02-11 08:54] LABS: Potassium 4.4 mmol/L (3.5-5.1)
--- NOTE | 2022-02-11 09:03 | P.PN ---
Subjective Patient is seen in follow-up for acute kidney injury. Started on hemodialysis 02/09/2022. Intubated. On Levophed. Receiving tube feeds. Also on bicarb drip. Acidosis improved. Urine output about 20 mL/hr. Dialysis treatment was cut short by about 15 minutes yesterday due to elevated heart rate. Vital signs are stable. On Levophed. General: Resting in bed. HEENT: Intubated. LUNGS: Breath sounds decreased. HEART: Rate and Rhythm are regular. ABDOMEN: Soft, no distention. EXTREMITITES: 1+ edema. Objective - Vital Signs Vital signs: Vital Signs Temp 99.2 F 02/11/22 04:00 Pulse 98 02/11/22 07:57 Resp 24 02/11/22 07:00 BP 127/59 02/11/22 07:00 Pulse Ox 96 02/11/22 07:00 FiO2 50 02/11/22 07:10 Intake & Output 02/10/22 02/11/22 02/11/22 18:59 06:59 18:59 Intake Total 2706.642 1396.101 98 Output Total 1015 220 30 Balance 6306.601 2990.101 68 Weight 146 kg Intake: IV 1010 636 53 Cefepime 1 gm In Sodium 50 Chloride 0.9% 50 ml @ 12. 5 mls/hr IVPB Q12HR [facility] Rx#:[id number] Dextrose 5% in Water 1, 600 600 50 000 ml @ 50 mls/hr IV . Q23H [facility] with Sodium Bicarb (1 Meq/ml) 150 ml Rx#:[id number] Pressure bags 60 36 3 levETIRAcetam IV 500 mg 100 In Sodium Chloride 0.9% 100 ml @ 400 mls/hr IVPB DAILY [facility] Rx#:[id number] metroNIDAZOLE-NS PMX 500 200 mg In Saline 1 100ml.bag @ 100 mls/hr IVPB Q8HR [facility] Rx#:[id number] Intake, IV Titration 406.642 340.101 Amount Norepinephrine 32 mg In 227.802 22.977 Sodium Chloride 0.9% 218 ml @ 0.05 MCG/KG/MIN 3. 246 mls/hr IV .Q24H [facility] Rx#:[id number] propofoL 1,000 mg In 178.84 317.124 Empty Bag 1 bag @ 5 MCG/ KG/MIN 4.08 mls/hr IV . Q24H [facility] Rx#:[id number] Tube Feeding 540 360 45 Hemodialysis 750 Other 60 Output: Urine 215 220 30 Hemodialysis 800 Other: Voiding Method Indwelling Catheter Indwelling Catheter ABP, PAP, CO, CI - Last Documented Arterial Blood Pressure 143/50 - Labs CBC & Chem 7: 02/11/22 04:16 02/11/22 08:29 Labs: Abnormal Lab Results - Last 24 Hours (Table) 02/10/22 02/10/22 02/10/22 Range/Units 04:00 11:37 16:08 WBC (3.8-10.6) k/uL RBC (4.30-5.90) m/uL Hgb (13.0-17.5) gm/dL Hct (39.0-53.0) % RDW (11.5-15.5) % PT (9.0-12.0) sec INR (<1.2) ABG pH (7.35-7.45) ABG O2 Saturation (94-97) % ABG Hematocrit (34.0-46.0) % Hemoglobin (13.0-17.5) gm/dL Carbon Dioxide (22-30) mmol/L BUN (9-20) mg/dL Creatinine (0.66-1.25) mg/dL Glucose (74-99) mg/dL POC Glucose (mg/dL) 182 H (70-110) mg/dL Calcium (8.4-10.2) mg/dL Procalcitonin 2.07 H (0.02-0.09) ng/mL Urine Protein 1+ H (Negative) Urine Blood Large H (Negative) Ur Leukocyte Esterase Small H (Negative) Urine RBC >182 H (0-5) /hpf Urine WBC 19 H (0-5) /hpf Amorphous Sediment Rare H (None) /hpf Urine Bacteria Rare H (None) /hpf 02/10/22 02/10/22 02/10/22 Range/Units 17:08 21:04 23:15 WBC (3.8-10.6) k/uL RBC (4.30-5.90) m/uL Hgb (13.0-17.5) gm/dL Hct (39.0-53.0) % RDW (11.5-15.5) % PT (9.0-12.0) sec INR (<1.2) ABG pH (7.35-7.45) ABG O2 Saturation (94-97) % ABG Hematocrit (34.0-46.0) % Hemoglobin (13.0-17.5) gm/dL Carbon Dioxide (22-30) mmol/L BUN (9-20) mg/dL Creatinine (0.66-1.25) mg/dL Glucose (74-99) mg/dL POC Glucose (mg/dL) 164 H 117 H 140 H (70-110) mg/dL Calcium (8.4-10.2) mg/dL Procalcitonin (0.02-0.09) ng/mL Urine Protein (Negative) Urine Blood (Negative) Ur Leukocyte Esterase (Negative) Urine RBC (0-5) /hpf Urine WBC (0-5) /hpf Amorphous Sediment (None) /hpf Urine Bacteria (None) /hpf 02/11/22 02/11/22 02/11/22 Range/Units 04:16 04:16 05:59 WBC 21.0 H (3.8-10.6) k/uL RBC 3.76 L (4.30-5.90) m/uL Hgb 10.7 L (13.0-17.5) gm/dL Hct 34.3 L (39.0-53.0) % RDW 16.9 H (11.5-15.5) % PT 13.6 H (9.0-12.0) sec INR 1.3 H (<1.2) ABG pH (7.35-7.45) ABG O2 Saturation (94-97) % ABG Hematocrit (34.0-46.0) % Hemoglobin (13.0-17.5) gm/dL Carbon Dioxide (22-30) mmol/L BUN (9-20) mg/dL Creatinine (0.66-1.25) mg/dL Glucose (74-99) mg/dL POC Glucose (mg/dL) 129 H (70-110) mg/dL Calcium (8.4-10.2) mg/dL Procalcitonin (0.02-0.09) ng/mL Urine Protein (Negative) Urine Blood (Negative) Ur Leukocyte Esterase (Negative) Urine RBC (0-5) /hpf Urine WBC (0-5) /hpf Amorphous Sediment (None) /hpf Urine Bacteria (None) /hpf 02/11/22 02/11/22 Range/Units 06:11 08:29 WBC (3.8-10.6) k/uL RBC (4.30-5.90) m/uL Hgb (13.0-17.5) gm/dL Hct (39.0-53.0) % RDW (11.5-15.5) % PT (9.0-12.0) sec INR (<1.2) ABG pH 7.33 L (7.35-7.45) ABG O2 Saturation 97.5 H (94-97) % ABG Hematocrit 32 L (34.0-46.0) % Hemoglobin 10.5 L (13.0-17.5) gm/dL Carbon Dioxide 20 L (22-30) mmol/L BUN 57 H (9-20) mg/dL Creatinine 4.19 H (0.66-1.25) mg/dL Glucose 144 H (74-99) mg/dL POC Glucose (mg/dL) (70-110) mg/dL Calcium 7.0 L (8.4-10.2) mg/dL Procalcitonin (0.02-0.09) ng/mL Urine Protein (Negative) Urine Blood (Negative) Ur Leukocyte Esterase (Negative) Urine RBC (0-5) /hpf Urine WBC (0-5) /hpf Amorphous Sediment (None) /hpf Urine Bacteria (None) /hpf Microbiology - Last 24 Hours (Table) 02/04/22 09:39 Blood Culture - Final Blood No Growth after 144 hours 02/04/22 09:39 Blood Culture - Final Blood No Growth after 144 hours Assessment and Plan Plan: Assessment: 1. Acute kidney injury secondary to ATN secondary to septic shock. Started on hemodialysis 02/09/2022. Urine output about 20 mL an hour. Creatinine in April 2019 was 0.8. Creatinine was as low as 1.62 this admission. No hy dronephrosis noted on CAT scan. 2. MSSA bacteremia with likely source being right foot ulcer. ID following. On antibiotics. 3. A. fib. Cardiology following. 4. Metabolic acidosis secondary to acute kidney injury. On bicarb drip. Better. 5. Diabetes mellitus. 6. Hyperphosphatemia secondary to acute kidney injury. On PhosLo. 7. Volume overload. Plan: Hemodialysis today. Continue to assess on daily basis for need for renal replacement therapy. Maintain sodium bicarbonate drip at 50 mL an hour. Status post IV Lasix yesterday. Maintain tube feeds. Wean FiO2 and vasopressors. Continue to monitor for renal recovery. Check serologies as well.
[2022-02-11] MEDS: METOPROLOL TARTRATE 25 MG TAB PO SCH ×2 (09:25→20:35)
[2022-02-11] MEDS: NICOTINE 21MG/24HR PATCH TRANSDERM SCH (09:25)
[2022-02-11] MEDS: TAMSULOSIN 0.4 MG CAP.ER.24H PO SCH (09:25)
[2022-02-11] MEDS: CALCIUM ACETATE 667 MG TAB PO SCH ×2 (09:25→15:45)
[2022-02-11] MEDS: guaiFENesin 600 MG TABLET.ER PO SCH ×4 (09:25→20:43)
[2022-02-11] MEDS: AMIODARONE 200 MG TAB PO SCH ×2 (09:25→20:35)
[2022-02-11] MEDS: CHLORHEXIDINE GLUCONATE 15 ML CUP MUCOUS MEM SCH ×2 (09:26→20:35)
[2022-02-11] MEDS: PREGABALIN 100 MG CAP PO SCH ×2 (09:26→20:34)
[2022-02-11] MEDS: PANTOPRAZOLE 40 MG/10 ML VIAL IVP SCH ×2 (09:26→20:35)
[2022-02-11] MEDS: SODIUM BICARBONATE TAB 650 MG TAB PO SCH ×4 (09:26→20:42)
[2022-02-11] MEDS: ANIDULAFUNGIN 100 MG in SODIUM CHLORIDE 0.9% 100 ML IVPB SCH (09:56)
[2022-02-11] MEDS: COLLAGENASE 250 UNIT/GM OINTMENT 30 GM TUBE TOPICAL SCH (10:15)
--- NOTE | 2022-02-11 10:26 | P.PN ---
Subjective Progress Note Date: 02/11/22 The patient is seen at bedside and per nurse no change in patient condition. He is on IV Propofol 25mcg/kg/min. His family members would like to continue with full code status and is schedule Trach and PEG this Wednesday. Today he is getting his third day of dialysis. Objective - Vital Signs Vital signs: Vital Signs Temp 99.2 F 02/11/22 04:00 Pulse 98 02/11/22 07:57 Resp 24 02/11/22 07:00 BP 127/59 02/11/22 07:00 Pulse Ox 96 02/11/22 07:00 FiO2 50 02/11/22 07:10 Intake & Output 02/10/22 02/11/22 02/11/22 18:59 06:59 18:59 Intake Total 2706.642 1396.101 129.540 Output Total 1015 220 30 Balance 6124.537 1146.101 99.540 Weight 146 kg Intake: IV 1010 636 53 Cefepime 1 gm In Sodium 50 Chloride 0.9% 50 ml @ 12. 5 mls/hr IVPB Q12HR [facility] Rx#:[id number] Dextrose 5% in Water 1, 600 600 50 000 ml @ 50 mls/hr IV . Q23H [facility] with Sodium Bicarb (1 Meq/ml) 150 ml Rx#:[id number] Pressure bags 60 36 3 levETIRAcetam IV 500 mg 100 In Sodium Chloride 0.9% 100 ml @ 400 mls/hr IVPB DAILY [facility] Rx#:[id number] metroNIDAZOLE-NS PMX 500 200 mg In Saline 1 100ml.bag @ 100 mls/hr IVPB Q8HR [facility] Rx#:[id number] Intake, IV Titration 406.642 340.101 31.540 Amount Norepinephrine 32 mg In 227.802 22.977 31.540 Sodium Chloride 0.9% 218 ml @ 0.05 MCG/KG/MIN 3. 246 mls/hr IV .Q24H [facility] Rx#:[id number] propofoL 1,000 mg In 178.84 317.124 Empty Bag 1 bag @ 5 MCG/ KG/MIN 4.08 mls/hr IV . Q24H [facility] Rx#:[id number] Tube Feeding 540 360 45 Hemodialysis 750 Other 60 Output: Urine 215 220 30 Hemodialysis 800 Other: Voiding Method Indwelling Catheter Indwelling Catheter ABP, PAP, CO, CI - Last Documented Arterial Blood Pressure 143/50 - Exam GENERAL: The patient is a morbid obese gentleman lying in bed and does not appear in acute distress. HENT: Supple neck. LUNG: Intubated on ventilator. NEUROLOGICAL: Limited because of his condition. IV Propofol 25mcg/kg/min Higher mental function: The patient is comatose. GCS 3 (E1, VT1, M1). Patient is not following commands or attempting to verbalize. Cranial nerves: I had to manually open his eeyes. The pupils are round, 2mm equal and reactive to light. Primary gaze is midline. No facial weakness. Has minimal weak cough reflex with suctioning. Is breathing at vent setting A/C set at 24. Motor: The strength is in movement is appreciated. Normal bulk. Sensation: Unable to assess light touch. - Labs CBC & Chem 7: 02/11/22 04:16 02/11/22 08:29 Labs: Abnormal Lab Results - Last 24 Hours (Table) 02/10/22 02/10/22 02/10/22 Range/Units 04:00 11:37 16:08 WBC (3.8-10.6) k/uL RBC (4.30-5.90) m/uL Hgb (13.0-17.5) gm/dL Hct (39.0-53.0) % RDW (11.5-15.5) % PT (9.0-12.0) sec INR (<1.2) ABG pH (7.35-7.45) ABG O2 Saturation (94-97) % ABG Hematocrit (34.0-46.0) % Hemoglobin (13.0-17.5) gm/dL Carbon Dioxide (22-30) mmol/L BUN (9-20) mg/dL Creatinine (0.66-1.25) mg/dL Glucose (74-99) mg/dL POC Glucose (mg/dL) 182 H (70-110) mg/dL Calcium (8.4-10.2) mg/dL Procalcitonin 2.07 H (0.02-0.09) ng/mL Urine Protein 1+ H (Negative) Urine Blood Large H (Negative) Ur Leukocyte Esterase Small H (Negative) Urine RBC >182 H (0-5) /hpf Urine WBC 19 H (0-5) /hpf Amorphous Sediment Rare H (None) /hpf Urine Bacteria Rare H (None) /hpf 02/10/22 02/10/22 02/10/22 Range/Units 17:08 21:04 23:15 WBC (3.8-10.6) k/uL RBC (4.30-5.90) m/uL Hgb (13.0-17.5) gm/dL Hct (39.0-53.0) % RDW (11.5-15.5) % PT (9.0-12.0) sec INR (<1.2) ABG pH (7.35-7.45) ABG O2 Saturation (94-97) % ABG Hematocrit (34.0-46.0) % Hemoglobin (13.0-17.5) gm/dL Carbon Dioxide (22-30) mmol/L BUN (9-20) mg/dL Creatinine (0.66-1.25) mg/dL Glucose (74-99) mg/dL POC Glucose (mg/dL) 164 H 117 H 140 H (70-110) mg/dL Calcium (8.4-10.2) mg/dL Procalcitonin (0.02-0.09) ng/mL Urine Protein (Negative) Urine Blood (Negative) Ur Leukocyte Esterase (Negative) Urine RBC (0-5) /hpf Urine WBC (0-5) /hpf Amorphous Sediment (None) /hpf Urine Bacteria (None) /hpf 02/11/22 02/11/22 02/11/22 Range/Units 04:16 04:16 05:59 WBC 21.0 H (3.8-10.6) k/uL RBC 3.76 L (4.30-5.90) m/uL Hgb 10.7 L (13.0-17.5) gm/dL Hct 34.3 L (39.0-53.0) % RDW 16.9 H (11.5-15.5) % PT 13.6 H (9.0-12.0) sec INR 1.3 H (<1.2) ABG pH (7.35-7.45) ABG O2 Saturation (94-97) % ABG Hematocrit (34.0-46.0) % Hemoglobin (13.0-17.5) gm/dL Carbon Dioxide (22-30) mmol/L BUN (9-20) mg/dL Creatinine (0.66-1.25) mg/dL Glucose (74-99) mg/dL POC Glucose (mg/dL) 129 H (70-110) mg/dL Calcium (8.4-10.2) mg/dL Procalcitonin (0.02-0.09) ng/mL Urine Protein (Negative) Urine Blood (Negative) Ur Leukocyte Esterase (Negative) Urine RBC (0-5) /hpf Urine WBC (0-5) /hpf Amorphous Sediment (None) /hpf Urine Bacteria (None) /hpf 02/11/22 02/11/22 Range/Units 06:11 08:29 WBC (3.8-10.6) k/uL RBC (4.30-5.90) m/uL Hgb (13.0-17.5) gm/dL Hct (39.0-53.0) % RDW (11.5-15.5) % PT (9.0-12.0) sec INR (<1.2) ABG pH 7.33 L (7.35-7.45) ABG O2 Saturation 97.5 H (94-97) % ABG Hematocrit 32 L (34.0-46.0) % Hemoglobin 10.5 L (13.0-17.5) gm/dL Carbon Dioxide 20 L (22-30) mmol/L BUN 57 H (9-20) mg/dL Creatinine 4.19 H (0.66-1.25) mg/dL Glucose 144 H (74-99) mg/dL POC Glucose (mg/dL) (70-110) mg/dL Calcium 7.0 L (8.4-10.2) mg/dL Procalcitonin (0.02-0.09) ng/mL Urine Protein (Negative) Urine Blood (Negative) Ur Leukocyte Esterase (Negative) Urine RBC (0-5) /hpf Urine WBC (0-5) /hpf Amorphous Sediment (None) /hpf Urine Bacteria (None) /hpf Microbiology - Last 24 Hours (Table) 02/04/22 09:39 Blood Culture - Final Blood No Growth after 144 hours 02/04/22 09:39 Blood Culture - Final Blood No Growth after 144 hours Assessment and Plan Assessment: * Altered mental status due to multifactorial: Metabolic encephalopathy/uremic encephalopathy (getting dialysis) and septicemia from cellulitis of right foot ulcer. Also due to medication effect (IV Propofol). Myoclonic twitching has resolved. * Cellulitis with right foot ulcer * Septicemia with staph aureus. * Status post fall with L1 compression fracture * Moderate renal insufficiency, worsening getting dialysis (day #3). * Coagulopathy * Right sided rib fractures secondary to fall. 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 * Peripheral edema. * Long-standing history of frequent falls, uses walker * COPD * Chronic tobacco use * Diabetes with hemoglobin A1c 8.1 * Probable diabetic peripheral neuropathy. * Peripheral arterial disease Plan: * EEG 02/03/2022 is reported as did not reveal any status epilepticus. Some background slowing, with triphasic waves suggestive of metabolic encephalopathy. Lot of myogenic activity precluding optimal evaluation of brain waves. * Patient's renal functions are worsening. Dr. Stoll decreased Keppra to 500 mg once daily and recommended, if the patient recovers, then Keppra can be weaned off. * Repeat CT head is reported as old left occipital lobe infarct. Mild atrophy. No acute intracranial abnormality. No significant change compared to recent exam. Epileptiform reviewed the CT of the head and I agree there is no acute or subacute ischemia and there is no at the proximal hemorrhage. * Pending repeat routine EEG. * I.D. is on obard. * Will defer the rest of medical management to the primary and ICU team. * Please avoid any sedation or opiates use if possible that will affect neurological examination. The plan is discussed with patient's nurse. Chava Jackson M.D. Neuro-Hospitalist. Time with Patient: Less than 30
--- NOTE | 2022-02-11 10:44 | P.PN ---
Subjective Progress Note Date: 02/11/22 Principal diagnosis: Respiratory failure. Patient was reevaluated today on 02/06/22, remains in the ICU, intubated and mechanically ventilated. Patient is sedated, his ventilator settings are assist control rate of 24 tidal volume 500 FiO2 45% and PEEP of 5. ABG showed a pO2 of 85 pCO2 37 pH of 7.37 patient had worsening urine output and worsening renal status overnight, received almost 4 L of fluids, continue to have low urine output and this morning he received 80 mg of Lasix IV push. CVP continues to read the low below 7. His endotracheal tube was noted to be sitting high in the trachea and it will be advanced about 3 cm. Patient remains on propofol at 40 mcg/kg/m IV fluids/normal saline at 100 mL per hour norepinephrine at 0.02 mcg/kg/m today I recommended a nephrology consultation and the patient will be undergoing CT of the abdomen for ileus. The CT of the abdomen showed mild to moderate circumferential wall thickening of the cecum and ascending colon pos sible nonspecific infectious or inflammatory colitis. There was also distention of the rectum up to 7.5 cm with solid stool. Patient is developing fecal impaction. There is also the possibility of perianal fistula noted on the CT of the abdomen and pelvis. Blood cultures from 97 and 98 are negative so far. Previous blood cultures from 01/31 hence 02/01 were positive for staph aureus Patient was reevaluated today on 02/07/22, patient remains in the ICU, intubated and mechanically ventilated. Patient is on assist control rate of 24 tidal volume 500 FiO2 45% PEEP of 5 ABG showed a pO2 of 79 pCO2 36 pH of 7.33. Continues to have very low urine output, renal functioning seems to be getting worse, and nephrology as on consultation, today I cut down his IV fluid to 50 mL/h and I gave him a dose of Lasix 80 mg IV push. Again his urine output is extremely marginal. Patient is off norepinephrine today blood pressure seems to be better controlled. He is on propofol at 30 mcg/kg/m IV fluid cut down to 50 mL/h and he is on tube feeding. No changes were made today for his ventilator settings chest x-ray continues to show small bilateral patchy airspace disease, and possibly some component of pleural effusion is noted bilaterally. WBC count is 18.5 hemoglobin 11.6. INR is 2.2 electrolytes are normal bicarb is 18 BUN is 49, and 3.73 creatinine up from yesterday Patient was reevaluated today on , remains in the ICU intubated mechanically ventilated, sedated, his ventilator settings are assist control rate 24 tidal volume 500 FiO2 40% PEEP of 5 ABG showed a pO2 of 95 pCO2 34 pH of 7.28, reflecting a mild metabolic acidosis most likely secondary to his worsening renal failure his creatinine is up to 4.36 today. Patient does respond to diuretics, however I believe the patient is clinically dry, and I'm recommending fluid boluses today, 500 mL of saline intermittently patient has a good urine output, especially after Lasix. Otherwise his urine output is poor. CVP remains low, chest x-ray is showing improvement in his fluid overload, hence I'm recommending fluid boluses to be given today. Patient remains on antibiotics for his MSSA infection he is on cefepime is also on Flagyl. Today I'm recommending that the patient goes off propofol and to be able to get adeq uate mental assessment. He is requiring to small dose of norepinephrine 0.05 mcg/kg/m, and I'm hoping with fluid boluses we could potentially discontinue norepinephrine today. Again chest x-ray is showing slight improvement. And I plan to stop propofol today. Patient was seen by nephrology and considering starting hemodialysis in the next 24 or 48 hours. They are consulting vascular surgery for dialysis catheter placement. WBC count today is 23.6 hemoglobin is 11.1 INR is 3.0 electrolytes are normal except for low bicarb of 14, BUN is 54 creatinine 4.36. Progress note dated 02/09/2022. This is a 61-year-old male who was admitted on January 31, for atrial fibrillation and cellulitis. On February 05, he was intubated for respiratory failure. The patient remains on the ventilator. Currently, she is on the volume assist control, with a rate of 24, tidal volume 500, FiO2 40%, and PEEP of 5. Arterial blood gases show pO2 of 90, pCO2 pH of 7.21. His blood gases are consistent with metabolic acidosis. The patient will be started on a bicarbonate drip, with 3 ampules of sodium bicarbonate and D5W at 50 mL an hour. The patient is also on norepinephrine at 21 mcg/m, and propofol at 40 mcg/kg/m. The patient's getting vital HP at 33 mL an hour, which is goal. The patient remains on Flagyl and cefepime. A hemodialysis catheter will be placed today. White count 26.5, hemoglobin 11.7, hematocrit 40, and platelet count 201,000. PTT is 32.5 with an INR 3.3. Sodium 140, potassium 4.8, chlorides 114, CO2 13, anion gap 13, BUN 60, and creatinine 4.66. Albumin is 2. Sputum sampling from February 05 show stenotrophomonas. Blood cultures from February 01 are positive for staph aureus. Chest x-ray shows a pattern of CHF, cardiomegaly, small to moderate effusions, and pulmonary vascular congestion. Progress note dated 02/10/2022. 61-year-old male admitted on January 31, for atrial fibrillation and cellulitis. On February 05, he was intubated for respiratory failure. He remains on the mechanical ventilator. He is currently on volume assist control, rate 24, tidal volume 500, FiO2 50%, and PEEP of 5. Blood gases show pO2 of 95, pCO2 of 38, pH is 7.29. Blood gases are consistent with metabolic acidosis. The patient remains on norepinephrine at 15 mcg/m, propofol at 25 mcg/kg/m, and D5W with 3 ampules of sodium bicarbonate at 50 mL an hour. The patient had a daily interruption of sedation on February 09, and lasted about an hour and 15 minutes, before agitation forced him to go back on the ventilator. In addition, he had hemodialysis yesterday and what hemodialysis again today. There was no additional fluid removal. Patient remains on vital high protein at 45 mL an hour, which is goal, as well as on Flagyl and cefepime. CBC is currently pe nding. INR 1.4. Sodium 138, potassium 4.3, chlorides 108, CO2 16, anion gap 14, BUN 56, and creatinine 4.44. The chest x-ray and abdominal films are all reviewed. Progress note dated 02/11/2022. 61-year-old male admitted on January 31, for atrial fibrillation and cellulitis. On February 05, the patient was intubated for respiratory failure, and remains on the mechanical ventilator. He's not made any progress, and over the last couple days, have done daily interruption of sedation, and the patient has done poorly. He is currently on volume assist control, rate 24, tidal volume 500, FiO2 50%, and PEEP of 5. Blood gases show a PaO2 of 97, pCO2 40, and pH is 7.33. The patient remains on propofol at 25 mcg/kg/m, norepinephrine at 9 mcg/m, and 3 ampules of sodium bicarbonate and D5W at 50 mL an hour. In addition, the patient is getting tube feeds with vital high protein at 45 mL an hour, which is goal. He had hemodialysis yesterday and 1 L was removed. He'll have hemodialysis again today. We will have surgery see him for a possible tracheostomy and PEG tube placement later this week. I did have a long conversation with his brother, Joe, who is in agreement. White count 21, hemoglobin 10.7, hematocrit 34.3, and platelet count 274,000. Sodium 138, potassium 4.4, chlorides 105, CO2 20, BUN 57, and creatinine 4.19. Calcium is 7. Microbiology showing evidence of stenotrophomonas sputum, and staph aureus in the blood. Chest x-ray shows bilateral pleural effusions and bibasilar atelectasis. Computed tomography scan of the brain shows mild atrophy, and an old left occipital lobe infarct. Computed tomography scan is unchanged. Objective - Vital Signs Vital signs: Vital Signs Temp 99.2 F 02/11/22 04:00 Pulse 98 02/11/22 07:57 Resp 24 02/11/22 07:00 BP 127/59 02/11/22 07:00 Pulse Ox 96 02/11/22 07:00 FiO2 50 02/11/22 07:10 Intake & Output 02/10/22 02/11/22 02/11/22 18:59 06:59 18:59 Intake Total 2706.642 1396.101 526.351 Output Total 1015 220 75 Balance 8463.505 3105.101 451.351 Weight 146 kg Intake: IV 1010 636 359 Anidulafungin 100 mg In 100 Sodium Chloride 0.9% 100 ml @ 84 mls/hr IVPB DAILY [facility] Rx#:[id number] Cefepime 1 gm In Sodium 50 Chloride 0.9% 50 ml @ 12. 5 mls/hr IVPB Q12HR [facility] Rx#:[id number] Dextrose 5% in Water 1, 600 600 150 000 ml @ 50 mls/hr IV . Q23H [facility] with Sodium Bicarb (1 Meq/ml) 150 ml Rx#:[id number] Pressure bags 60 36 9 levETIRAcetam IV 500 mg 100 In Sodium Chloride 0.9% 100 ml @ 400 mls/hr IVPB DAILY [facility] Rx#:[id number] metroNIDAZOLE-NS PMX 500 200 100 mg In Saline 1 100ml.bag @ 100 mls/hr IVPB Q8HR [facility] Rx#:[id number] Intake, IV Titration 406.642 340.101 32.351 Amount Norepinephrine 32 mg In 227.802 22.977 32.351 Sodium Chloride 0.9% 218 ml @ 0.05 MCG/KG/MIN 3. 246 mls/hr IV .Q24H [facility] Rx#:[id number] propofoL 1,000 mg In 178.84 317.124 Empty Bag 1 bag @ 5 MCG/ KG/MIN 4.08 mls/hr IV . Q24H [facility] Rx#:[id number] Tube Feeding 540 360 135 Hemodialysis 750 Other 60 Output: Urine 215 220 75 Hemodialysis 800 Other: Voiding Method Indwelling Catheter Indwelling Catheter ABP, PAP, CO, CI - Last Documented Arterial Blood Pressure 143/50 - Exam No acute distress, sedated, with an orally placed endotracheal tube. He now has a orally placed NG tube. HEENT examination is grossly unremarkable. Neck supple. Full range of motion. No adenopathy thyromegaly or neck vein distention. Cardiovascular examination reveals an irregular rhythm. S1-S2 normal. No S3 or S4. No discernible murmur noted. Heart rate 98 bpm. Lungs reveal bibasilar crackles. Rhonchi are noted. No wheezes. Breath sounds are equal bilaterally. Saturations are 98 %. Abdomen obese, bowel sounds. No masses. Extremities are intact. No cyanosis clubbing or edema. Skin reveals a large around the lateral malleolus of the right foot with gangrenous changes. Neurologic examination cannot be properly assessed as the patient's currently sedated. - Labs CBC & Chem 7: 02/11/22 04:16 02/11/22 08:29 Labs: Abnormal Lab Results - Last 24 Hours (Table) 02/10/22 02/10/22 02/10/22 Range/Units 04:00 11:37 16:08 WBC (3.8-10.6) k/uL RBC (4.30-5.90) m/uL Hgb (13.0-17.5) gm/dL Hct (39.0-53.0) % RDW (11.5-15.5) % PT (9.0-12.0) sec INR (<1.2) ABG pH (7.35-7.45) ABG O2 Saturation (94-97) % ABG Hematocrit (34.0-46.0) % Hemoglobin (13.0-17.5) gm/dL Carbon Dioxide (22-30) mmol/L BUN (9-20) mg/dL Creatinine (0.66-1.25) mg/dL Glucose (74-99) mg/dL POC Glucose (mg/dL) 182 H (70-110) mg/dL Calcium (8.4-10.2) mg/dL Procalcitonin 2.07 H (0.02-0.09) ng/mL Urine Protein 1+ H (Negative) Urine Blood Large H (Negative) Ur Leukocyte Esterase Small H (Negative) Urine RBC >182 H (0-5) /hpf Urine WBC 19 H (0-5) /hpf Amorphous Sediment Rare H (None) /hpf Urine Bacteria Rare H (None) /hpf 02/10/22 02/10/22 02/10/22 Range/Units 17:08 21:04 23:15 WBC (3.8-10.6) k/uL RBC (4.30-5.90) m/uL Hgb (13.0-17.5) gm/dL Hct (39.0-53.0) % RDW (11.5-15.5) % PT (9.0-12.0) sec INR (<1.2) ABG pH (7.35-7.45) ABG O2 Saturation (94-97) % ABG Hematocrit (34.0-46.0) % Hemoglobin (13.0-17.5) gm/dL Carbon Dioxide (22-30) mmol/L BUN (9-20) mg/dL Creatinine (0.66-1.25) mg/dL Glucose (74-99) mg/dL POC Glucose (mg/dL) 164 H 117 H 140 H (70-110) mg/dL Calcium (8.4-10.2) mg/dL Procalcitonin (0.02-0.09) ng/mL Urine Protein (Negative) Urine Blood (Negative) Ur Leukocyte Esterase (Negative) Urine RBC (0-5) /hpf Urine WBC (0-5) /hpf Amorphous Sediment (None) /hpf Urine Bacteria (None) /hpf 02/11/22 02/11/22 02/11/22 Range/Units 04:16 04:16 05:59 WBC 21.0 H (3.8-10.6) k/uL RBC 3.76 L (4.30-5.90) m/uL Hgb 10.7 L (13.0-17.5) gm/dL Hct 34.3 L (39.0-53.0) % RDW 16.9 H (11.5-15.5) % PT 13.6 H (9.0-12.0) sec INR 1.3 H (<1.2) ABG pH (7.35-7.45) ABG O2 Saturation (94-97) % ABG Hematocrit (34.0-46.0) % Hemoglobin (13.0-17.5) gm/dL Carbon Dioxide (22-30) mmol/L BUN (9-20) mg/dL Creatinine (0.66-1.25) mg/dL Glucose (74-99) mg/dL POC Glucose (mg/dL) 129 H (70-110) mg/dL Calcium (8.4-10.2) mg/dL Procalcitonin (0.02-0.09) ng/mL Urine Protein (Negative) Urine Blood (Negative) Ur Leukocyte Esterase (Negative) Urine RBC (0-5) /hpf Urine WBC (0-5) /hpf Amorphous Sediment (None) /hpf Urine Bacteria (None) /hpf 02/11/22 02/11/22 Range/Units 06:11 08:29 WBC (3.8-10.6) k/uL RBC (4.30-5.90) m/uL Hgb (13.0-17.5) gm/dL Hct (39.0-53.0) % RDW (11.5-15.5) % PT (9.0-12.0) sec INR (<1.2) ABG pH 7.33 L (7.35-7.45) ABG O2 Saturation 97.5 H (94-97) % ABG Hematocrit 32 L (34.0-46.0) % Hemoglobin 10.5 L (13.0-17.5) gm/dL Carbon Dioxide 20 L (22-30) mmol/L BUN 57 H (9-20) mg/dL Creatinine 4.19 H (0.66-1.25) mg/dL Glucose 144 H (74-99) mg/dL POC Glucose (mg/dL) (70-110) mg/dL Calcium 7.0 L (8.4-10.2) mg/dL Procalcitonin (0.02-0.09) ng/mL Urine Protein (Negative) Urine Blood (Negative) Ur Leukocyte Esterase (Negative) Urine RBC (0-5) /hpf Urine WBC (0-5) /hpf Amorphous Sediment (None) /hpf Urine Bacteria (None) /hpf Microbiology - Last 24 Hours (Table) 02/04/22 09:39 Blood Culture - Final Blood No Growth after 144 hours 02/04/22 09:39 Blood Culture - Final Blood No Growth after 144 hours Assessment and Plan Assessment: Acute hypercapnic respiratory failure, status post intubation and mechanical ventilation on 02/05/2022. Acute metabolic encephalopathy. Right sided rib fractures, traumatic, secondary to a fall. Right-sided pulmonary contusion. Anterior wedge compression fracture, L1. Hemoptysis, secondary to pulmonary contusion. COPD from chronic tobacco use. Coumadin toxicity. Chronic atrial fibrillation. Chronic kidney disease, stage III. Stage II right ankle wound, status post debridement. Diabetic peripheral neuropathy. History of kidney stones. Nonspecific colitis. Plan: Plan dated 02/09/2022. We will continue ventilatory support. The patient will have a daily interruption of sedation. The patient remains on Flagyl and cefepime. Culture data is reviewed. Continue GI and DVT prophylaxis. Prognosis is guarded. Labs, x-rays, and medications are all reviewed. We will continue to follow make recommendations along the way. The patient continues on amiodarone. Plan dated 02/10/2022. The patient will have another daily interruption of sedation. Yesterday, he did, and was only off sedation for about an hour and 15 minutes. The patient may not be ready yet. The patient did have hemodialysis yesterday, and will have an again today. Blood gases are consistent with metabolic acidosis. Chest x-ray, labs, and medications are reviewed. The patient remains on norepinephr ine at 15 mcg/m. The patient remains on propofol at 25 mcg/kg/m. The patient also remains on Flagyl and cefepime. Prognosis is certainly guarded. We will continue to follow and make recommendations along the way. Plan dated 02/11/2022. Over the last couple of days, the patient has done poorly with his daily interruption of sedation. He is obviously not moving towards weaning and extubation. I had a conversation with his brother Joe today, and we did agree on proceeding with a tracheostomy and PEG one of the surgeons will be consulted. Labs, x-rays, and medications are reviewed. The patient will get hemodialysis again today. The patient remains on propofol and norepinephrine, as well as a bicarbonate drip. Nephrology is following. He is receiving tube feedings at goal. The patient's overall prognosis is very guarded. Time with Patient: Greater than 30
[2022-02-11] MEDS: CEFEPIME 1 GM in SODIUM CHLORIDE 0.9% 50 ML IVPB SCH ×2 (11:24→20:41)
[2022-02-11] MEDS: levETIRAcetam IV 500 MG in SODIUM CHLORIDE 0.9% 100 ML IVPB SCH (11:29)
--- NOTE | 2022-02-11 12:00 | P.PN ---
Subjective Progress Note Date: 02/11/22 CHIEF COMPLAINT: Upper GI bleeding HISTORY OF PRESENT ILLNESS: Patient is intubated and on mechanical ventilation on in the ICU. . 5 FiO2 50%. Patient did not tolerate being weaned from the vent. Critical care service is requesting tracheostomy and PEG tube placement. Patient is undergoing hemodialysis today. Patient remains on Levophed. Patient had computed tomography scan of the brain showing old left occipital lobe infarct. Patient followed by neurology. Patient remains on tube feeds 45 mL per hour. Afebrile. WBC is down from 26.5-21 platelets 10.7 platelets 174 INR 1.3 sodium 138 potassium 4.4 creatinine 4.19. Albumin 1.9 PHYSICAL EXAM: VITAL SIGNS: Reviewed. ABDOMEN: Soft. Nondistended NEUROLOGIC: Intubated, able to open eyes ASSESSMENT: 1. Ileus 2. Upper GI bleed resolved 3. Fecal impaction 4. Altered mental status 5. Leukocytosis 6. Respiratory failure requiring mechanical ventilation and revealed weaned from vent 7. Severe protein calorie nutrition PLAN: -Further recommendations forthcoming per surgeon regarding when tracheostomy and PEG tube will be placed -Continue ICU management -Continue supportive care -Continue to monitor -Continue tube feeds -Recommend to hold Coumadin and use IV heparin instead for anticoagulation in preparation for tracheostomy and PEG tube placement. Physician Microfilm Camera Operator note has been reviewed by physician. Signing provider agrees with the documented findings, assessment, and plan of care. I have personally seen and examined the patient, reviewed the [employer] /PAs history, exam and MDM and agree with the assessment and plan as written. Based on total visit time, I have performed more than 50% of the visit. As above: Patient's repeat CAT scan showed no acute changes. Still tolerating tube feeds. Patient is not tolerating weaning at this time and the patient's white blood cell count remains elevated. Patient will be set up for tracheostomy and PEG tube placement either later this week or early next week. We'll discuss further with family. Objective - Vital Signs Vital signs: Vital Signs Temp 99.3 F 02/11/22 08:00 Pulse 97 02/11/22 11:07 Resp 24 02/11/22 10:00 BP 85/50 02/11/22 10:00 Pulse Ox 97 02/11/22 10:00 FiO2 50 02/11/22 10:51 Intake & Output 02/10/22 02/11/22 02/11/22 18:59 06:59 18:59 Intake Total 2706.642 1396.101 529.294 Output Total 1015 220 75 Balance 4095.773 4713.101 454.294 Weight 146 kg Intake: IV 1010 636 359 Anidulafungin 100 mg In 100 Sodium Chloride 0.9% 100 ml @ 84 mls/hr IVPB DAILY [facility] Rx#:[id number] Cefepime 1 gm In Sodium 50 Chloride 0.9% 50 ml @ 12. 5 mls/hr IVPB Q12HR [facility] Rx#:[id number] Dextrose 5% in Water 1, 600 600 150 000 ml @ 50 mls/hr IV . Q23H [facility] with Sodium Bicarb (1 Meq/ml) 150 ml Rx#:[id number] Pressure bags 60 36 9 levETIRAcetam IV 500 mg 100 In Sodium Chloride 0.9% 100 ml @ 400 mls/hr IVPB DAILY [facility] Rx#:[id number] metroNIDAZOLE-NS PMX 500 200 100 mg In Saline 1 100ml.bag @ 100 mls/hr IVPB Q8HR [facility] Rx#:[id number] Intake, IV Titration 406.642 340.101 35.294 Amount Norepinephrine 32 mg In 227.802 22.977 35.294 Sodium Chloride 0.9% 218 ml @ 0.05 MCG/KG/MIN 3. 246 mls/hr IV .Q24H [facility] Rx#:[id number] propofoL 1,000 mg In 178.84 317.124 Empty Bag 1 bag @ 5 MCG/ KG/MIN 4.08 mls/hr IV . Q24H [facility] Rx#:[id number] Tube Feeding 540 360 135 Hemodialysis 750 Other 60 Output: Urine 215 220 75 Hemodialysis 800 Other: Voiding Method Indwelling Catheter Indwelling Catheter Indwelling Catheter ABP, PAP, CO, CI - Last Documented Arterial Blood Pressure 71/31 - Labs CBC & Chem 7: 02/11/22 04:16 02/11/22 08:29 Labs: Abnormal Lab Results - Last 24 Hours (Table) 02/10/22 02/10/22 02/10/22 Range/Units 04:00 16:08 17:08 WBC (3.8-10.6) k/uL RBC (4.30-5.90) m/uL Hgb (13.0-17.5) gm/dL Hct (39.0-53.0) % RDW (11.5-15.5) % PT (9.0-12.0) sec INR (<1.2) ABG pH (7.35-7.45) ABG O2 Saturation (94-97) % ABG Hematocrit (34.0-46.0) % Hemoglobin (13.0-17.5) gm/dL Carbon Dioxide (22-30) mmol/L BUN (9-20) mg/dL Creatinine (0.66-1.25) mg/dL Glucose (74-99) mg/dL POC Glucose (mg/dL) 164 H (70-110) mg/dL Calcium (8.4-10.2) mg/dL Procalcitonin 2.07 H (0.02-0.09) ng/mL Urine Protein 1+ H (Negative) Urine Blood Large H (Negative) Ur Leukocyte Esterase Small H (Negative) Urine RBC >182 H (0-5) /hpf Urine WBC 19 H (0-5) /hpf Amorphous Sediment Rare H (None) /hpf Urine Bacteria Rare H (None) /hpf 02/10/22 02/10/22 02/11/22 Range/Units 21:04 23:15 04:16 WBC 21.0 H (3.8-10.6) k/uL RBC 3.76 L (4.30-5.90) m/uL Hgb 10.7 L (13.0-17.5) gm/dL Hct 34.3 L (39.0-53.0) % RDW 16.9 H (11.5-15.5) % PT (9.0-12.0) sec INR (<1.2) ABG pH (7.35-7.45) ABG O2 Saturation (94-97) % ABG Hematocrit (34.0-46.0) % Hemoglobin (13.0-17.5) gm/dL Carbon Dioxide (22-30) mmol/L BUN (9-20) mg/dL Creatinine (0.66-1.25) mg/dL Glucose (74-99) mg/dL POC Glucose (mg/dL) 117 H 140 H (70-110) mg/dL Calcium (8.4-10.2) mg/dL Procalcitonin (0.02-0.09) ng/mL Urine Protein (Negative) Urine Blood (Negative) Ur Leukocyte Esterase (Negative) Urine RBC (0-5) /hpf Urine WBC (0-5) /hpf Amorphous Sediment (None) /hpf Urine Bacteria (None) /hpf 02/11/22 02/11/22 02/11/22 Range/Units 04:16 05:59 06:11 WBC (3.8-10.6) k/uL RBC (4.30-5.90) m/uL Hgb (13.0-17.5) gm/dL Hct (39.0-53.0) % RDW (11.5-15.5) % PT 13.6 H (9.0-12.0) sec INR 1.3 H (<1.2) ABG pH 7.33 L (7.35-7.45) ABG O2 Saturation 97.5 H (94-97) % ABG Hematocrit 32 L (34.0-46.0) % Hemoglobin 10.5 L (13.0-17.5) gm/dL Carbon Dioxide (22-30) mmol/L BUN (9-20) mg/dL Creatinine (0.66-1.25) mg/dL Glucose (74-99) mg/dL POC Glucose (mg/dL) 129 H (70-110) mg/dL Calcium (8.4-10.2) mg/dL Procalcitonin (0.02-0.09) ng/mL Urine Protein (Negative) Urine Blood (Negative) Ur Leukocyte Esterase (Negative) Urine RBC (0-5) /hpf Urine WBC (0-5) /hpf Amorphous Sediment (None) /hpf Urine Bacteria (None) /hpf 02/11/22 Range/Units 08:29 WBC (3.8-10.6) k/uL RBC (4.30-5.90) m/uL Hgb (13.0-17.5) gm/dL Hct (39.0-53.0) % RDW (11.5-15.5) % PT (9.0-12.0) sec INR (<1.2) ABG pH (7.35-7.45) ABG O2 Saturation (94-97) % ABG Hematocrit (34.0-46.0) % Hemoglobin (13.0-17.5) gm/dL Carbon Dioxide 20 L (22-30) mmol/L BUN 57 H (9-20) mg/dL Creatinine 4.19 H (0.66-1.25) mg/dL Glucose 144 H (74-99) mg/dL POC Glucose (mg/dL) (70-110) mg/dL Calcium 7.0 L (8.4-10.2) mg/dL Procalcitonin (0.02-0.09) ng/mL Urine Protein (Negative) Urine Blood (Negative) Ur Leukocyte Esterase (Negative) Urine RBC (0-5) /hpf Urine WBC (0-5) /hpf Amorphous Sediment (None) /hpf Urine Bacteria (None) /hpf Microbiology - Last 24 Hours (Table) 02/04/22 09:39 Blood Culture - Final Blood No Growth after 144 hours 02/04/22 09:39 Blood Culture - Final Blood No Growth after 144 hours
[2022-02-11 12:06] LABS: Monocytes # (M) 1.26 k/uL (0-1.0); Neutrophils # (M) 17.64 k/uL (1.3-7.7); Neutrophils % (M) 84 %; Nucleated Red Blood Cells 0 /100 WBC (0-0); Total Cells Counted 100
[2022-02-11 12:21] LABS: Glucose,Whole Blood 137 mg/dL (70-110)
[2022-02-11] MEDS: LACTULOSE 20 GM/30 ML CUP PO PRN (15:45)
[2022-02-11 17:34] LABS: Glucose,Whole Blood 131 mg/dL (70-110)
--- NOTE | 2022-02-11 17:44 | P.PN ---
Progress Note - Text Progress Note Date: 02/11/22 This is a 61-year-old patient who follows with Dr. Sridhar Chan. Chronic stable medical conditions include diabetes, hypertension, hyperlipidemia, chronic low back problems, cigarette smoker. At the baseline uses a walker. Patient slipped in the bathroom falling on his buttock. Was not able to get up. By the EMS report he had fallen 24 hours prior to the picking him up. Patient been complaining of pain in the right rib cage in the lower back. X-ray was negative for fracture. Patient continued to have significant pain especially with deep breathing. Patient also had a congestive cough and wheezing. Some bloody sputum. Denies any fever and chills. Patient also complaining of urina ry retention and requesting a Shepard catheter. at the bedside. No fever no chills. Orthopedics consulted for the same. Patient normally has a bowel movement once a week. Patient also has a wound on the right foot lateral part of the ankles for about a week. Ischemic changes. From rubbing against a bedpost. Patient's INR in the ER was greater than 10. Was given vitamin K. 10 mg Patient bit with Coumadin toxicity, given vitamin K, acute COPD exacerbation, uncontrolled atrial flutter put on Lopressor, right chest wall pain. Computed tomography scan lumbar spine and chest was ordered. Large wound on the right lateral malleolus-ID and vascular consulted.. IV cefepime. February 01: Patient yesterday to see refused his computed tomography scan of the chest and lumbar spine. Done today. Right-sided rib fractures, pulmonary contusion confirm. L1 vertebral body 30% wedge compression fracture. Patient's girlfriend the bedside. It was discussed in detail with her. Patient wanting again and again to pull out his NG tube. Requests the to stay with the patient. Patient is also had the dark aspirate from the stomach for which she has NG tube. Surgery was consulted for the same. Also this morning right foot wound was debrided by Dr. Ibarra from vascular. Wound base was relatively clean. No undermining or tunneling. February 02: Delirious. NG tube to suction. Has been in restraints because point NG TUBE several times. Mumbling to himself. Dressing over the right ankle. Not in distress. Ileus. Chest x-ray showing right lower lobe/atelectasis. February 03: Hospital computer system was down. Patient remains delirious. Nasal cannula. Lethargic. Family the bedside. Antibiotics. A. fib uncontrolled. EEG evidence of metabolic encephalopathy. No clear-cut epileptiform activity. Started on Keppra by neurology. February 04: ICU: Girlfriend at the bedside. In atrial fibrillation uncontrolled. On IV Cardizem and IV amiodarone. NG tube to suction. Patient lethargic. Multiple breathing. 2 L. Oxygen. February 05: ICU. Atrial fibrillation better controlled this morning. Cardizem discontinued. Patient respiratory status worsened this morning and patient is intubated. FiO2 45 and a PEEP of 5. Atrial fibrillation, controlled. Drips include amiodarone, propofol, levo fed. Discussed with girlfriend the bedside. Understands prognosis guarded. February 06: ICU: Ventilated. FiO2 45 and a PEEP of 5. NG tube is clamped. On IV propofol. Sedated. Heart rate better controlled. Was started on Coumadin yesterday. Worsening renal function. Nephrology consulted. 02/07/2022 Patient is currently in the MICU and on mechanical ventilator. Tidal volume of 400, FiO2 40% and PEEP of 5. Patient is off pressor support today. Currently on propofol and is also on tube feeding. Chest x-ray showed stable exam with stable support lines and tubes. Correlate for congestive heart failure. Patient was given a dose of IV Lasix. Laboratory data showed WBC 18.4 hemoglobin 11.6 and platelets 458 Sodium 141 potassium 3.7 chloride 103 bicarb is 18 BUN 49 and creatinine 3.73 and calcium 7.3. INR is 2.2. Patient is being followed by nephrology cardiology and critical care team. 02/08/2022 Patient is currently on mechanical ventilator and sedated with propofol. Assist control with FiO2 40% and tidal volume of 400 and PEEP of 5. Patient is being continued on antibiotics above cefepime and Flagyl. Sputum gram stain gram-negative bacilli and Lynda. Chest x-ray today showed findings suggestive of slightly worsening CHF exacerbation as there is cardiomegaly with mild to moderate central venous congestion and small to moderate-sized bilateral pleural effusion. Laboratory test showed WBC increased to 23.6 hemoglobin 9.1 and platelets 162 INR 3.0 Sodium 139 potassium 4.3 chloride 113 bicarb is 40 BUN 54 and creatinine worsening to 4.36 February 09: I resumed the care of patient today ICU: Med: 40/5. Received vitamin K 5 mg IV to bring the INR down for dialysis catheter. Drips include bicarbonate, propofol, epinephrine. Patient is a stage II coccyx is ulcer. Plan is to change the NG tube to on G-tube today. For possible colitis/fistula on antibiotics. at the bedside. February 10: ICU. Ventilator 50/5. Hemodialysis catheter placed last night. Hemodialyzed yesterday and getting dialyzed today. Remains in atrial fibrillation heart rate uncontrolled. Getting up sedation holiday. Drips include bicarbonate and norepinephrine. Propofol currently held. 2 feeding at 46 mL an hour. Does open eyes. February 11: ICU. Ventilator. 50/5. Third day for hemodialysis. 1.5 L to be removed today. Back on propofol. Drips include bicarbonate, norepinephrine, propofol. On G-tube feeding. Patient back in sinus rhythm. Bag and tracheostomy to planning for next week. 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 IV antifungal started by ID. Active Medications Acetaminophen (Acetaminophen Tab 325 Mg Tab) 650 mg PO Q6HR PRN PRN Reason: Mild Pain or Fever > 100.5 Albuterol/Ipratropium (Ipratropium-Albuterol 3 Ml Neb) 3 ml INHALATION RT-QID [facility] Last Admin: 02/11/22 15:10 Dose: 3 ml Amiodarone HCl (Amiodarone 200 Mg Tab) 200 mg PO BID [facility] Last Admin: 02/11/22 09:25 Dose: 200 mg Artificial Tears (Artificial Tears-Hypromellose Drops 15 Ml Btl) 2 drops BOTH EYES TID PRN PRN Reason: Dry Eye(s) Budesonide (Budesonide 1 Mg/2 Ml Nebu) 1 mg INHALATION RT-BID [facility] Last Admin: 02/11/22 07:47 Dose: 1 mg Calcium Acetate (Calcium Acetate 667 Mg Tab) 667 mg PO BID-W/MEALS [facility] Last Admin: 02/11/22 15:45 Dose: 667 mg Calcium Carbonate/Glycine (Calcium Carbonate 500 Mg Chewable) 1,000 mg PO Q4HR PRN PRN Reason: Dyspepsia Last Admin: 01/31/22 14:29 Dose: 1,000 mg Chlorhexidine Gluconate (Chlorhexidine Gluconate 15 Ml Cup) 15 ml MUCOUS MEM BID [facility] Last Admin: 02/11/22 09:26 Dose: 15 ml Collagenase (Collagenase 250 Unit/Gm Ointment 30 Gm Tube) 1 applic TOPICAL DAILY [facility]; Protocol Last Admin: 02/11/22 10:15 Dose: 1 applic Dextrose/Water (Dextrose 50% Syringe 50 Ml) 25 ml IVP PER PROTOCOL PRN; Protocol PRN Reason: Hypoglycemia Last Admin: 02/06/22 18:11 Dose: 25 ml Dextrose/Water (Dextrose 50% Syringe 50 Ml) 50 ml IVP PER PROTOCOL PRN; Protocol PRN Reason: Hypoglycemia Guaifenesin (Guaifenesin 600 Mg Tablet.Er) 600 mg PO QID [facility] Last Admin: 02/11/22 16:01 Dose: 600 mg Hydromorphone HCl (Hydromorphone 0.5 Mg/0.5 Ml Syringe) 0.5 mg IVP Q3HR PRN PRN Reason: Pain Last Admin: 02/03/22 03:43 Dose: 0.5 mg Propofol 1,000 mg/ IV Solution 100 mls @ 4.08 mls/hr IV .Q24H [facility]; Protocol Last Admin: 02/11/22 13:51 Dose: 25 mcg/kg/min, 20.4 mls/hr Metronidazole 500 mg/ IV (Solution) 100 mls @ 100 mls/hr IVPB Q8HR [facility]; Protocol Last Admin: 02/11/22 15:45 Dose: 100 mls/hr Cefepime HCl 1 gm/ Sodium (Chloride) 50 mls @ 12.5 mls/hr IVPB Q12HR [facility] Last Admin: 02/11/22 11:24 Dose: 12.5 mls/hr Norepinephrine Bitartrate 32 (mg/ Sodium Chloride) 250 mls @ 3.246 mls/hr IV .Q24H [facility]; Protocol Last Titration: 02/11/22 12:58 Dose: 0.12 mcg/kg/min, 7.791 mls/hr Levetiracetam 500 mg/ Sodium (Chloride) 105 mls @ 400 mls/hr IVPB DAILY [facility] Last Admin: 02/11/22 11:29 Dose: 400 mls/hr Sodium Bicarbonate 150 ml/ (Dextrose/Water) 1,150 mls @ 50 mls/hr IV .Q23H [facility] Last Admin: 02/11/22 07:15 Dose: 50 mls/hr Anidulafungin 100 mg/ Sodium (Chloride) 100 mls @ 84 mls/hr IVPB DAILY [facility]; Protocol Last Admin: 02/11/22 09:56 Dose: 84 mls/hr Insulin Aspart (Insulin Aspart (Novolog) 100 Unit/Ml Vial) 0 unit SQ Q6HR [facility]; Protocol Last Admin: 02/11/22 12:30 Dose: Not Given Insulin Detemir (Insulin Detemir (Levemir) 100 Unit/Ml Syr) 14 unit SQ HS [facility] Last Admin: 02/10/22 21:05 Dose: Not Given Lactulose (Lactulose 20 Gm/30 Ml Cup) 20 gm PO DAILY PRN PRN Reason: Constipation Last Admin: 02/11/22 15:45 Dose: 20 gm Melatonin (Melatonin 3 Mg Tablet) 3 mg PO HS PRN PRN Reason: Insomnia Metoprolol Tartrate (Metoprolol Tartrate 25 Mg Tab) 25 mg PO BID [facility] Last Admin: 02/11/22 09:25 Dose: 25 mg Miscellaneous Information (Potassium Replacement Protocol 1 Each Misc) 1 each MISCELLANE DAILY PRN; Protocol PRN Reason: Per Protocol Miscellaneous Information (Warfarin Per Pharmacy) 1 each MISCELLANE DIRECTED PRN PRN Reason: Per Protocol Miscellaneous Information (Magnesium Replacement Protocol 1 Each Misc) 1 each MISCELLANE DAILY PRN; Protocol PRN Reason: Per Protocol Morphine Sulfate (Morphine Oral Soln 10 Mg/5 Ml Cup) 15 mg PO Q12H [facility] Last Admin: 02/11/22 12:34 Dose: 15 mg Naloxone HCl (Naloxone 0.4 Mg/Ml 1 Ml Vial) 0.2 mg IV Q2M PRN PRN Reason: Opioid Reversal Nicotine (Nicotine 21mg/24hr Patch) 1 patch TRANSDERM DAILY [facility] Last Admin: 02/11/22 09:25 Dose: 1 patch Ondansetron HCl (Ondansetron 4 Mg/2 Ml Vial) 4 mg IVP Q8HR PRN PRN Reason: Nausea And Vomiting Last Admin: 02/02/22 08:41 Dose: 4 mg Pantoprazole Sodium (Pantoprazole 40 Mg/10 Ml Vial) 40 mg IVP BID [facility] Last Admin: 02/11/22 09:26 Dose: 40 mg Pregabalin (Pregabalin 100 Mg Cap) 100 mg PO BID [facility] Last Admin: 02/11/22 09:26 Dose: 100 mg Sodium Bicarbonate (Sodium Bicarbonate Tab 650 Mg Tab) 1,300 mg PO QID [facility] Last Admin: 02/11/22 15:46 Dose: 1,300 mg Tamsulosin HCl (Tamsulosin 0.4 Mg Cap.Er.24h) 0.4 mg PO PC-BRKFST [facility] Last Admin: 02/11/22 09:25 Dose: 0.4 mg Warfarin Sodium (Warfarin 2 Mg Tab) 2 mg PO ONCE@1800 ONE Stop: 02/11/22 18:01 Past medical history to include: COPD, diabetes, hypertension, hyperlipidemia, back problems, TB, atrial fibrillation, on Coumadin Social history: Smokes a pack a day for close to 50 years. Stop doing alcohol some time ago. Lives with his significant other Sandra. Does use a walker. 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 Conjunctiva normal. HEENT: External appearance of nose and ears normal, oral cavity dry, OG tube with tube feeding, endotracheal tube NECK: JVD not raised; masses not palpable. HEART: Heart sounds regular; mild edema. LUNGS: Respiratory rate increased; decreased breath sound, ABDOMEN: Soft, distended, nontender, liver spleen not palpable, no masses palpable. PSYCH: Unable to assess, patient lethargic DERMATOLOGICAL: Wound on right ankle lateral malleolus. Under dressing. Stage II coccygeal breakdown. See nursing notes INVESTIGATIONS, reviewed in the clinical context: February 11: Sodium 138 potassium 4.4 creatinine 4.19 Sputum: Stenostrophonas maltophilia, Lynda albicans Computed tomography scan abdomen and pelvis [February 06] 6 mm stone in the right renal collecting system. Some circumferential wall thickening of the cecum and ascending colon. Distention of the rectum 7.5 cm with solid stool. EEG: Evidence of encephalopathy. No obvious epileptiform activity. 2-D echocardiogram: EF 60-65%. Renal ultrasound: Shows bilateral normal cortical medullary thickness. February 01: WBC 17.1 hemoglobin 14.8 UA: Blood large, leukoesterase moderate WBC 28 nitrite negative Lumbar spine CT: Anterior wedge compression deformity of L1. Multiple level DJD. 7 mm calculus right renal pelvis. CT chest without contrast: Right lateral eighth through 10th rib fractures with associated gas trace hemothorax right lower lobe pulmonary contusion/atelectasis. Patchy) disease left upper lobe. WBC 25.8 hemoglobin 14.1 platelets 217 INR greater than 10 sodium 131 potassium 3.9. 24 creatinine 1.8 to EKG tracing personally reviewed by me-atrial flutter. Rate 132 Foot/Lumbar/sacral coccyx: Spondylitic changes. No fracture. Chest x-ray film personally reviewed by me-clinically. Possible hyperinflation Assessment and plan: -Coumadin toxicity. INR greater than 10. On presentation: 10 mg vitamin K in the ER. Hemoptysis on presentation. Coumadin resumed on February 05.. - right lung contusion.-Secondary to fall. hemoptysis on presentation -Pneumonia, secondary to Stenostrophonas maltophilia, Lynda albicans IV cefepime, IV anidulafungin -Sepsis with positive blood cultures MSSA, likely source right ankle. From January 31. IV cefepime. February 04 blood culture negative -Acute hypoxic respiratory failure, multifactorial: ventilator support,: Slow to respond Patient intubated on February 05 -Acute COPD exacerbation, with chronic bronchitis component in a current smoker: Slow to respond DuoNeb. Nebulized Pulmicort. Mucinex. -Chronic nicotine dependence, cigarette smoker Nicotine patch -Paroxysmal atrial flutter,: Back in sinus rhythm Lopressor 50 mg 3 times a day. 2-D echocardiogram unremarkable. Oral amiodarone Coumadin started on February 05 -Possible CK D with possible acute component. creatinine was 0.8 in April 2019. Renal ultrasound unremarkable. UA shows trace protein. IV fluids.. -Acute kidney injury, ATN, likely cardiorenal syndrome.: Not improving Follow with nephrology. Hemodialysis started February 09 -Acute right-sided 8-10 ribs fracture secondary to fall K pad -Diabetes mellitus type 2, chronically on oral hypoglycemic Hold Glucotrol. Sliding scale insulin. Levemir 14 units daily at bedtime -Diabetic peripheral neuropathy Decreased dose of Lyrica in the setting of renal failure. 100 mg twice a day -Chronic low back pain: MS Contin 15 mg every 12, Johnston 7.5 twice a day when necessary -Anxiety depression not otherwise specified Wellbutrin XL 100 mg twice a day -Hyperlipidemia Lipitor 40 mg daily at bedtime -Right ankle lateral, diabetic wound, stage II acute. Wound culture positive for Streptococcus agalactiae and Staphylococcus aureus. IV Ancef. Follow with ID Patient has poor distal pulses. February 01 wound was debrided by Dr. Ibarra. Clean base. -Acute L1 30% wedge fracture secondary to fall LSO brace. Be followed by Dr. Damon -Acute delirium multifactorial. Slow to respond -Acute ileus, NG tube for decompression.; clamped.: Corrected Being followed by surgery. -Possible colitis /fistula on computed tomography scan. IV Flagyl. Cefepime. Followed by surgery Third day not go for hemodialysis. Patient started on anidulafungin. Drips include bicarbonate, IV Flagyl, IV propofol, IV norepinephrine.
[2022-02-11] MEDS ORDERED: WARFARIN 2 MG TAB PO ONE (18:00)
[2022-02-11 20:16] LABS: Glucose,Whole Blood 144 mg/dL (70-110)
[2022-02-11] MEDS: INSULIN DETEMIR (LEVEMIR) 100 UNIT/ML SYR SQ SCH (20:42)
--- NOTE | 2022-02-11 22:26 | EEG ---
ELECTROENCEPHALOGRAM REPORT CLINICAL HISTORY: This is a 61-year-old gentleman with altered mental status. The video EEG is obtained to evaluate for seizure epileptiform activity. RELEVANT MEDICATIONS: IV propofol, Dilaudid p.r.n. and Keppra 500 mg daily. EEG TYPE: A routine 21-channel EEG is performed with video using the 10/20 electrode placement system. DESCRIPTION: The patient is intubated on a ventilator. The background consists of low to moderate voltage of diffuse nonrhythmic 2.5 to 3.5 Hz delta activity and rarely intermixed with theta activity. There is no physiological stage II sleep architecture. There is no focal slowing. Interictal and ictal are none. ACTIVATION PROCEDURE: Photic stimulation and hyperventilation are not performed. CLINICAL INTERPRETATION: This is an abnormal routine EEG. The background slowing is suggestive of severe encephalopathy, likely due to toxic/metabolic abnormality. Otherwise, there is no focal slowing, epileptiform discharges, or seizure on the EEG. Clinical correlation is recommended. AVIVA / VINCE: [id number] / NITIN
[2022-02-12 00:12] LABS: Glucose,Whole Blood 136 mg/dL (70-110)
[2022-02-12] MEDS: NOREPINEPHRINE 32 MG in SODIUM CHLORIDE 0.9% 218 ML IV SCH ×2 (00:26→19:35)
[2022-02-12] MEDS: INSULIN ASPART (NovoLOG) 100 UNIT/ML VIAL SQ SCH ×4 (00:26→18:42)
[2022-02-12] MEDS: MORPHINE ORAL SOLN 10 MG/5 ML CUP PO SCH ×2 (00:32→12:28)
[2022-02-12] MEDS: metroNIDAZOLE-NS PMX 500 MG in SALINE 1 100ML.BAG IVPB SCH ×3 (00:32→17:19)
[2022-02-12 05:15] LABS: Glucose,Whole Blood 117 mg/dL (70-110)
[2022-02-12 05:44] LABS: Anisocytosis Slight; Basophils # (A) 0.1 k/uL (0-0.2); Basophils % (A) 1 %; Eosinophils # (A) 0.4 k/uL (0-0.7); Eosinophils % (A) 2 %; HCT 31.1 % (39.0-53.0); HGB 9.9 gm/dL (13.0-17.5); Hypochromasia Moderate; Lymphocytes # (A) 1.2 k/uL (1.0-4.8); Lymphocytes % (A) 7 %; MCH 28.6 pg (25.0-35.0); MCHC 31.7 g/dL (31.0-37.0); MCV 90.2 fL (80.0-100.0); Mean Platelet Volume 10.1; Monocytes % (A) 7 %; Neutrophils # (A) 12.8 k/uL (1.3-7.7); Neutrophils % (A) 81 %; Platelet Count 149 k/uL (150-450); RBC 3.45 m/uL (4.30-5.90); RDW 16.9 % (11.5-15.5); WBC 15.9 k/uL (3.8-10.6)
[2022-02-12 05:54] LABS: ABG Base Excess -2.5 mmol/L; ABG HCO3 23 mmol/L (21-25); ABG Hematocrit 31 % (34.0-46.0); ABG Oxygen Saturation 95.1 % (94-97); ABG PCO2 39 mmHg (35-45); ABG PH 7.38 (7.35-7.45); ABG PO2 77 mmHg (83-108); ABG TCO2 24 mmol/L (19-24); Allen Test Performed? Yes
[2022-02-12 06:15] LABS: Calcium 7.2 mg/dL (8.4-10.2); Potassium 4.4 mmol/L (3.5-5.1)
[2022-02-12 06:19] LABS: INR 1.4 (<1.2); Prothrombin Time 14.5 sec (9.0-12.0)
[2022-02-12] MEDS: DEXTROSE 5% IN WATER 1,000 ML with SODIUM BICARB (1 MEQ/ML) 150 ML IV SCH (06:49)
--- NOTE | 2022-02-12 06:56 | P.PN ---
Subjective Progress Note Date: 02/12/22 Principal diagnosis: Persistent atrial fibrillation This is a 61-year-old gentleman who was admitted to the hospital with acute on chronic respiratory failure as well as metabolic encephalopathy and septic shock. We involved in the care of the patient for the management of persistent atrial fibrillation. February 112021 The patient was seen this morning. He remains intubated on mechanical ventilation. He remains hemodynamically unstable and requiring vasopressors was norepinephrine. He has been in and out atrial fibrillation. He is currently on amiodarone. Once he goes to atrial fibrillation the heart rate has been under good control. Metoprolol is on hold at this point in the light off hypotension requiring vasopressors. INR today is 1.3 I'm going to give the patient 4 mg of Coumadin today and recheck the INR tomorrow. He underwent dialysis yesterday and during dialysis he was a slightly tachycardic. February 122021 The patient was seen this morning. He remains intubated on mechanical ventilation. He remains also unstable hemodynamically and requiring small dose of norepinephrine. Coumadin is on hold at this point because the patient p otentially going to undergo a PEG tube and tracheostomy Q placement later on. He has been with Mukul harris with controlled heart rate on the current dose of amiodarone. Beta donovan is on hold at this point. Objective - Vital Signs Vital signs: Vital Signs Temp 99.2 F 02/12/22 04:00 Pulse 77 02/12/22 06:30 Resp 24 02/12/22 06:30 BP 122/58 02/12/22 06:30 Pulse Ox 96 02/12/22 06:30 FiO2 40 02/12/22 06:30 Intake & Output 02/11/22 02/11/22 02/12/22 06:59 18:59 06:59 Intake Total 8951.477 5598.403 1685.143 Output Total 220 1735 295 Balance 1176.101 -9.597 1390.143 Weight 146 kg 146 kg 149.5 kg Intake: IV 636 1089 736 Anidulafungin 100 mg In 100 Sodium Chloride 0.9% 100 ml @ 84 mls/hr IVPB DAILY [facility] Rx#:[id number] Dextrose 5% in Water 1, 600 650 600 000 ml @ 50 mls/hr IV . Q23H [facility] with Sodium Bicarb (1 Meq/ml) 150 ml Rx#:[id number] Pressure bags 36 39 36 levETIRAcetam IV 500 mg 100 In Sodium Chloride 0.9% 100 ml @ 400 mls/hr IVPB Q12HR [facility] Rx#:[id number] metroNIDAZOLE-NS PMX 500 200 100 mg In Saline 1 100ml.bag @ 100 mls/hr IVPB Q8HR [facility] Rx#:[id number] Intake, IV Titration 340.101 201.403 292.143 Amount Norepinephrine 32 mg In 22.977 56.047 105.143 Sodium Chloride 0.9% 218 ml @ 0.05 MCG/KG/MIN 3. 246 mls/hr IV .Q24H [facility] Rx#:[id number] propofoL 1,000 mg In 317.124 145.356 187.0 Empty Bag 1 bag @ 5 MCG/ KG/MIN 4.08 mls/hr IV . Q24H [facility] Rx#:[id number] Tube Feeding 360 135 657 Hemodialysis 300 Other 60 Output: Urine 220 235 295 Hemodialysis 1500 Other: Voiding Method Indwelling Catheter Indwelling Catheter Indwelling Catheter ABP, PAP, CO, CI - Last Documented Arterial Blood Pressure 133/43 - Constitutional General appearance: Present: no acute distress - Respiratory Respiratory: bilateral: diminished - Cardiovascular Rhythm: irregularly irregular Heart sounds: normal: S1, S2 - Labs CBC & Chem 7: 02/12/22 05:30 02/12/22 05:30 Labs: Abnormal Lab Results - Last 24 Hours (Table) 02/11/22 02/11/22 02/11/22 Range/Units 04:16 08:29 12:20 WBC (3.8-10.6) k/uL RBC (4.30-5.90) m/uL Hgb (13.0-17.5) gm/dL Hct (39.0-53.0) % RDW (11.5-15.5) % Plt Count (150-450) k/uL Neutrophils # (1.3-7.7) k/uL Neutrophils # (Manual) 17.64 H (1.3-7.7) k/uL Monocytes # (Manual) 1.26 H (0-1.0) k/uL PT (9.0-12.0) sec INR (<1.2) ABG pO2 (83-108) mmHg ABG Hematocrit (34.0-46.0) % Hemoglobin (13.0-17.5) gm/dL Sodium (137-145) mmol/L Carbon Dioxide 20 L (22-30) mmol/L BUN 57 H (9-20) mg/dL Creatinine 4.19 H (0.66-1.25) mg/dL Glucose 144 H (74-99) mg/dL POC Glucose (mg/dL) 137 H (70-110) mg/dL Calcium 7.0 L (8.4-10.2) mg/dL 02/11/22 02/11/22 02/12/22 Range/Units 17:32 20:14 00:10 WBC (3.8-10.6) k/uL RBC (4.30-5.90) m/uL Hgb (13.0-17.5) gm/dL Hct (39.0-53.0) % RDW (11.5-15.5) % Plt Count (150-450) k/uL Neutrophils # (1.3-7.7) k/uL Neutrophils # (Manual) (1.3-7.7) k/uL Monocytes # (Manual) (0-1.0) k/uL PT (9.0-12.0) sec INR (<1.2) ABG pO2 (83-108) mmHg ABG Hematocrit (34.0-46.0) % Hemoglobin (13.0-17.5) gm/dL Sodium (137-145) mmol/L Carbon Dioxide (22-30) mmol/L BUN (9-20) mg/dL Creatinine (0.66-1.25) mg/dL Glucose (74-99) mg/dL POC Glucose (mg/dL) 131 H 144 H 136 H (70-110) mg/dL Calcium (8.4-10.2) mg/dL 02/12/22 02/12/22 02/12/22 Range/Units 05:13 05:30 05:30 WBC 15.9 H (3.8-10.6) k/uL RBC 3.45 L (4.30-5.90) m/uL Hgb 9.9 L (13.0-17.5) gm/dL Hct 31.1 L (39.0-53.0) % RDW 16.9 H (11.5-15.5) % Plt Count 149 L (150-450) k/uL Neutrophils # 12.8 H (1.3-7.7) k/uL Neutrophils # (Manual) (1.3-7.7) k/uL Monocytes # (Manual) (0-1.0) k/uL PT (9.0-12.0) sec INR (<1.2) ABG pO2 (83-108) mmHg ABG Hematocrit (34.0-46.0) % Hemoglobin (13.0-17.5) gm/dL Sodium 136 L (137-145) mmol/L Carbon Dioxide 21 L (22-30) mmol/L BUN 57 H (9-20) mg/dL Creatinine 4.33 H (0.66-1.25) mg/dL Glucose 145 H (74-99) mg/dL POC Glucose (mg/dL) 117 H (70-110) mg/dL Calcium 7.2 L (8.4-10.2) mg/dL 02/12/22 02/12/22 Range/Units 05:50 06:00 WBC (3.8-10.6) k/uL RBC (4.30-5.90) m/uL Hgb (13.0-17.5) gm/dL Hct (39.0-53.0) % RDW (11.5-15.5) % Plt Count (150-450) k/uL Neutrophils # (1.3-7.7) k/uL Neutrophils # (Manual) (1.3-7.7) k/uL Monocytes # (Manual) (0-1.0) k/uL PT 14.5 H (9.0-12.0) sec INR 1.4 H (<1.2) ABG pO2 77 L (83-108) mmHg ABG Hematocrit 31 L (34.0-46.0) % Hemoglobin 10.1 L (13.0-17.5) gm/dL Sodium (137-145) mmol/L Carbon Dioxide (22-30) mmol/L BUN (9-20) mg/dL Creatinine (0.66-1.25) mg/dL Glucose (74-99) mg/dL POC Glucose (mg/dL) (70-110) mg/dL Calcium (8.4-10.2) mg/dL Assessment and Plan Assessment: Assessment Acute on chronic respiratory failure Metabolic encephalopathy Septic shock Persistent atrial fibrillation Renal failure Plan Try to wean the patient from norepinephrine Continue holding the Coumadin in the light of the patient going to undergo tracheostomy tube Follow-up with the patient
[2022-02-12] MEDS: BUDESONIDE 1 MG/2 ML NEBU INHALATION SCH ×2 (07:22→19:50)
[2022-02-12] MEDS: IPRATROPIUM-ALBUTEROL 3 ML NEB INHALATION SCH ×4 (07:22→19:50)
--- NOTE | 2022-02-12 07:26 | P.PN ---
Subjective Progress Note Date: 02/12/22 Principal diagnosis: Respiratory failure. Patient was reevaluated today on 02/06/22, remains in the ICU, intubated and mechanically ventilated. Patient is sedated, his ventilator settings are assist control rate of 24 tidal volume 500 FiO2 45% and PEEP of 5. ABG showed a pO2 of 85 pCO2 37 pH of 7.37 patient had worsening urine output and worsening renal status overnight, received almost 4 L of fluids, continue to have low urine output and this morning he received 80 mg of Lasix IV push. CVP continues to read the low below 7. His endotracheal tube was noted to be sitting high in the trachea and it will be advanced about 3 cm. Patient remains on propofol at 40 mcg/kg/m IV fluids/normal saline at 100 mL per hour norepinephrine at 0.02 mcg/kg/m today I recommended a nephrology consultation and the patient will be undergoing CT of the abdomen for ileus. The CT of the abdomen showed mild to moderate circumferential wall thickening of the cecum and ascending colon pos sible nonspecific infectious or inflammatory colitis. There was also distention of the rectum up to 7.5 cm with solid stool. Patient is developing fecal impaction. There is also the possibility of perianal fistula noted on the CT of the abdomen and pelvis. Blood cultures from 97 and 98 are negative so far. Previous blood cultures from 01/31 hence 02/01 were positive for staph aureus Patient was reevaluated today on 02/07/22, patient remains in the ICU, intubated and mechanically ventilated. Patient is on assist control rate of 24 tidal volume 500 FiO2 45% PEEP of 5 ABG showed a pO2 of 79 pCO2 36 pH of 7.33. Continues to have very low urine output, renal functioning seems to be getting worse, and nephrology as on consultation, today I cut down his IV fluid to 50 mL/h and I gave him a dose of Lasix 80 mg IV push. Again his urine output is extremely marginal. Patient is off norepinephrine today blood pressure seems to be better controlled. He is on propofol at 30 mcg/kg/m IV fluid cut down to 50 mL/h and he is on tube feeding. No changes were made today for his ventilator settings chest x-ray continues to show small bilateral patchy airspace disease, and possibly some component of pleural effusion is noted bilaterally. WBC count is 18.5 hemoglobin 11.6. INR is 2.2 electrolytes are normal bicarb is 18 BUN is 49, and 3.73 creatinine up from yesterday Patient was reevaluated today on , remains in the ICU intubated mechanically ventilated, sedated, his ventilator settings are assist control rate 24 tidal volume 500 FiO2 40% PEEP of 5 ABG showed a pO2 of 95 pCO2 34 pH of 7.28, reflecting a mild metabolic acidosis most likely secondary to his worsening renal failure his creatinine is up to 4.36 today. Patient does respond to diuretics, however I believe the patient is clinically dry, and I'm recommending fluid boluses today, 500 mL of saline intermittently patient has a good urine output, especially after Lasix. Otherwise his urine output is poor. CVP remains low, chest x-ray is showing improvement in his fluid overload, hence I'm recommending fluid boluses to be given today. Patient remains on antibiotics for his MSSA infection he is on cefepime is also on Flagyl. Today I'm recommending that the patient goes off propofol and to be able to get adeq uate mental assessment. He is requiring to small dose of norepinephrine 0.05 mcg/kg/m, and I'm hoping with fluid boluses we could potentially discontinue norepinephrine today. Again chest x-ray is showing slight improvement. And I plan to stop propofol today. Patient was seen by nephrology and considering starting hemodialysis in the next 24 or 48 hours. They are consulting vascular surgery for dialysis catheter placement. WBC count today is 23.6 hemoglobin is 11.1 INR is 3.0 electrolytes are normal except for low bicarb of 14, BUN is 54 creatinine 4.36. Progress note dated 02/09/2022. This is a 61-year-old male who was admitted on January 31, for atrial fibrillation and cellulitis. On February 05, he was intubated for respiratory failure. The patient remains on the ventilator. Currently, she is on the volume assist control, with a rate of 24, tidal volume 500, FiO2 40%, and PEEP of 5. Arterial blood gases show pO2 of 90, pCO2 pH of 7.21. His blood gases are consistent with metabolic acidosis. The patient will be started on a bicarbonate drip, with 3 ampules of sodium bicarbonate and D5W at 50 mL an hour. The patient is also on norepinephrine at 21 mcg/m, and propofol at 40 mcg/kg/m. The patient's getting vital HP at 33 mL an hour, which is goal. The patient remains on Flagyl and cefepime. A hemodialysis catheter will be placed today. White count 26.5, hemoglobin 11.7, hematocrit 40, and platelet count 201,000. PTT is 32.5 with an INR 3.3. Sodium 140, potassium 4.8, chlorides 114, CO2 13, anion gap 13, BUN 60, and creatinine 4.66. Albumin is 2. Sputum sampling from February 05 show stenotrophomonas. Blood cultures from February 01 are positive for staph aureus. Chest x-ray shows a pattern of CHF, cardiomegaly, small to moderate effusions, and pulmonary vascular congestion. Progress note dated 02/10/2022. 61-year-old male admitted on January 31, for atrial fibrillation and cellulitis. On February 05, he was intubated for respiratory failure. He remains on the mechanical ventilator. He is currently on volume assist control, rate 24, tidal volume 500, FiO2 50%, and PEEP of 5. Blood gases show pO2 of 95, pCO2 of 38, pH is 7.29. Blood gases are consistent with metabolic acidosis. The patient remains on norepinephrine at 15 mcg/m, propofol at 25 mcg/kg/m, and D5W with 3 ampules of sodium bicarbonate at 50 mL an hour. The patient had a daily interruption of sedation on February 09, and lasted about an hour and 15 minutes, before agitation forced him to go back on the ventilator. In addition, he had hemodialysis yesterday and what hemodialysis again today. There was no additional fluid removal. Patient remains on vital high protein at 45 mL an hour, which is goal, as well as on Flagyl and cefepime. CBC is currently pe nding. INR 1.4. Sodium 138, potassium 4.3, chlorides 108, CO2 16, anion gap 14, BUN 56, and creatinine 4.44. The chest x-ray and abdominal films are all reviewed. Progress note dated 02/11/2022. 61-year-old male admitted on January 31, for atrial fibrillation and cellulitis. On February 05, the patient was intubated for respiratory failure, and remains on the mechanical ventilator. He's not made any progress, and over the last couple days, have done daily interruption of sedation, and the patient has done poorly. He is currently on volume assist control, rate 24, tidal volume 500, FiO2 50%, and PEEP of 5. Blood gases show a PaO2 of 97, pCO2 40, and pH is 7.33. The patient remains on propofol at 25 mcg/kg/m, norepinephrine at 9 mcg/m, and 3 ampules of sodium bicarbonate and D5W at 50 mL an hour. In addition, the patient is getting tube feeds with vital high protein at 45 mL an hour, which is goal. He had hemodialysis yesterday and 1 L was removed. He'll have hemodialysis again today. We will have surgery see him for a possible tracheostomy and PEG tube placement later this week. I did have a long conversation with his brother, Joe, who is in agreement. White count 21, hemoglobin 10.7, hematocrit 34.3, and platelet count 274,000. Sodium 138, potassium 4.4, chlorides 105, CO2 20, BUN 57, and creatinine 4.19. Calcium is 7. Microbiology showing evidence of stenotrophomonas sputum, and staph aureus in the blood. Chest x-ray shows bilateral pleural effusions and bibasilar atelectasis. Computed tomography scan of the brain shows mild atrophy, and an old left occipital lobe infarct. Computed tomography scan is unchanged. Progress note dated 02/12/2022. 61-year-old male admitted on January 31, for atrial fibrillation and cellulitis. 5 days later on February 05, the patient was intubated for respiratory failure, and remains on the mechanical ventilator. Yesterday, I had a conversation with the patient's brother. The brother did agree to proceed w ith tracheostomy and PEG tube placement. He states that his brother and one everything done at this point, given the fact that he is only 61 years of age. The patient has done poorly on daily interruptions of sedation. He remains on volume assist control, rate 24, tidal volume 500, FiO2 40%, and PEEP of 5. The patient is currently on propofol at 25 mcg/kg/m, and norepinephrine at 0.085 mcg/kg/m. He is also getting saline at 10 mL an hour, and a sodium bicarbonate drip, with 3 ampules of sodium bicarbonate and D5W at 50 mL an hour. The patient is also getting vital high protein at goal. White count 15.9, hemoglobin 9.9, hematocrit 31.1, and platelet count 249,000. PT 14.5. INR 1.4. Blood gases show pO2 of 77, pCO2 39, and pH is 7.38. Sodium 136, potassium 4.4, chlorides 102, CO2 21, BUN 57, and creatinine 4.33. Microbiologic sampling has been positive for stenotrophomonas in the sputum, and staph aureus in the bloodstream. The patient is currently on cefepime, Flagyl, and Eraxis. The infectious disease physician is following this patient. Chest x-ray is largely unchanged and shows bilateral pleural effusions and bibasilar atelectasis. Objective - Vital Signs Vital signs: Vital Signs Temp 99.2 F 02/12/22 04:00 Pulse 77 02/12/22 07:00 Resp 24 02/12/22 07:00 BP 122/58 02/12/22 07:00 Pulse Ox 96 02/12/22 07:00 FiO2 40 02/12/22 07:13 Intake & Output 02/11/22 02/12/22 02/12/22 18:59 06:59 18:59 Intake Total 1480.402 7101.143 Output Total 1735 295 Balance -9.597 1390.143 Weight 146 kg 149.5 kg Intake: IV 1089 736 Anidulafungin 100 mg In 100 Sodium Chloride 0.9% 100 ml @ 84 mls/hr IVPB DAILY [facility] Rx#:[id number] Dextrose 5% in Water 1, 650 600 000 ml @ 50 mls/hr IV . Q23H [facility] with Sodium Bicarb (1 Meq/ml) 150 ml Rx#:[id number] Pressure bags 39 36 levETIRAcetam IV 500 mg 100 In Sodium Chloride 0.9% 100 ml @ 400 mls/hr IVPB Q12HR [facility] Rx#:[id number] metroNIDAZOLE-NS PMX 500 200 100 mg In Saline 1 100ml.bag @ 100 mls/hr IVPB Q8HR [facility] Rx#:[id number] Intake, IV Titration 201.403 292.143 Amount Norepinephrine 32 mg In 56.047 105.143 Sodium Chloride 0.9% 218 ml @ 0.05 MCG/KG/MIN 3. 246 mls/hr IV .Q24H [facility] Rx#:[id number] propofoL 1,000 mg In 145.356 187.0 Empty Bag 1 bag @ 5 MCG/ KG/MIN 4.08 mls/hr IV . Q24H [facility] Rx#:[id number] Tube Feeding 135 657 Hemodialysis 300 Output: Urine 235 295 Hemodialysis 1500 Other: Voiding Method Indwelling Catheter Indwelling Catheter ABP, PAP, CO, CI - Last Documented Arterial Blood Pressure 141/44 - Exam No acute distress, sedated, with an orally placed endotracheal tube. He now has a orally placed NG tube. HEENT examination is grossly unremarkable. Neck supple. Full range of motion. No adenopathy thyromegaly or neck vein distention. Cardiovascular examination reveals an irregular rhythm. S1-S2 normal. No S3 or S4. No discernible murmur noted. Heart rate 77 bpm. Lungs reveal bibasilar crackles. Rhonchi are noted. No wheezes. Breath sounds are equal bilaterally. Saturations are 96 %. Abdomen obese, bowel sounds. No masses. Extremities are intact. No cyanosis clubbing or edema. Skin reveals a large around the lateral malleolus of the right foot with gangrenous changes. Neurologic examination cannot be properly assessed as the patient's currently sedated. - Labs CBC & Chem 7: 02/12/22 05:30 02/12/22 05:30 Labs: Abnormal Lab Results - Last 24 Hours (Table) 02/11/22 02/11/22 02/11/22 Range/Units 04:16 08:29 12:20 WBC (3.8-10.6) k/uL RBC (4.30-5.90) m/uL Hgb (13.0-17.5) gm/dL Hct (39.0-53.0) % RDW (11.5-15.5) % Plt Count (150-450) k/uL Neutrophils # (1.3-7.7) k/uL Neutrophils # (Manual) 17.64 H (1.3-7.7) k/uL Monocytes # (Manual) 1.26 H (0-1.0) k/uL PT (9.0-12.0) sec INR (<1.2) ABG pO2 (83-108) mmHg ABG Hematocrit (34.0-46.0) % Hemoglobin (13.0-17.5) gm/dL Sodium (137-145) mmol/L Carbon Dioxide 20 L (22-30) mmol/L BUN 57 H (9-20) mg/dL Creatinine 4.19 H (0.66-1.25) mg/dL Glucose 144 H (74-99) mg/dL POC Glucose (mg/dL) 137 H (70-110) mg/dL Calcium 7.0 L (8.4-10.2) mg/dL 02/11/22 02/11/22 02/12/22 Range/Units 17:32 20:14 00:10 WBC (3.8-10.6) k/uL RBC (4.30-5.90) m/uL Hgb (13.0-17.5) gm/dL Hct (39.0-53.0) % RDW (11.5-15.5) % Plt Count (150-450) k/uL Neutrophils # (1.3-7.7) k/uL Neutrophils # (Manual) (1.3-7.7) k/uL Monocytes # (Manual) (0-1.0) k/uL PT (9.0-12.0) sec INR (<1.2) ABG pO2 (83-108) mmHg ABG Hematocrit (34.0-46.0) % Hemoglobin (13.0-17.5) gm/dL Sodium (137-145) mmol/L Carbon Dioxide (22-30) mmol/L BUN (9-20) mg/dL Creatinine (0.66-1.25) mg/dL Glucose (74-99) mg/dL POC Glucose (mg/dL) 131 H 144 H 136 H (70-110) mg/dL Calcium (8.4-10.2) mg/dL 02/12/22 02/12/22 02/12/22 Range/Units 05:13 05:30 05:30 WBC 15.9 H (3.8-10.6) k/uL RBC 3.45 L (4.30-5.90) m/uL Hgb 9.9 L (13.0-17.5) gm/dL Hct 31.1 L (39.0-53.0) % RDW 16.9 H (11.5-15.5) % Plt Count 149 L (150-450) k/uL Neutrophils # 12.8 H (1.3-7.7) k/uL Neutrophils # (Manual) (1.3-7.7) k/uL Monocytes # (Manual) (0-1.0) k/uL PT (9.0-12.0) sec INR (<1.2) ABG pO2 (83-108) mmHg ABG Hematocrit (34.0-46.0) % Hemoglobin (13.0-17.5) gm/dL Sodium 136 L (137-145) mmol/L Carbon Dioxide 21 L (22-30) mmol/L BUN 57 H (9-20) mg/dL Creatinine 4.33 H (0.66-1.25) mg/dL Glucose 145 H (74-99) mg/dL POC Glucose (mg/dL) 117 H (70-110) mg/dL Calcium 7.2 L (8.4-10.2) mg/dL 02/12/22 02/12/22 Range/Units 05:50 06:00 WBC (3.8-10.6) k/uL RBC (4.30-5.90) m/uL Hgb (13.0-17.5) gm/dL Hct (39.0-53.0) % RDW (11.5-15.5) % Plt Count (150-450) k/uL Neutrophils # (1.3-7.7) k/uL Neutrophils # (Manual) (1.3-7.7) k/uL Monocytes # (Manual) (0-1.0) k/uL PT 14.5 H (9.0-12.0) sec INR 1.4 H (<1.2) ABG pO2 77 L (83-108) mmHg ABG Hematocrit 31 L (34.0-46.0) % Hemoglobin 10.1 L (13.0-17.5) gm/dL Sodium (137-145) mmol/L Carbon Dioxide (22-30) mmol/L BUN (9-20) mg/dL Creatinine (0.66-1.25) mg/dL Glucose (74-99) mg/dL POC Glucose (mg/dL) (70-110) mg/dL Calcium (8.4-10.2) mg/dL Assessment and Plan Assessment: Acute hypercapnic respiratory failure, status post intubation and mechanical ventilation on 02/05/2022. Acute metabolic encephalopathy. Right sided rib fractures, traumatic, secondary to a fall. Right-sided pulmonary contusion. Anterior wedge compression fracture, L1. Hemoptysis, secondary to pulmonary contusion. COPD from chronic tobacco use. Coumadin toxicity. Chronic atrial fibrillation. Chronic kidney disease, stage III. Stage II right ankle wound, status post debridement. Diabetic peripheral neuropathy. History of kidney stones. Nonspecific colitis. Plan: Plan dated 02/09/2022. We will continue ventilatory support. The patient will have a daily interruption of sedation. The patient remains on Flagyl and cefepime. Culture data is reviewed. Continue GI and DVT prophylaxis. Prognosis is guarded. Labs, x-rays, and medications are all reviewed. We will continue to follow make recommendations along the way. The patient continues on amiodarone. Plan dated 02/10/2022. The patient will have another daily interruption of sedation. Yesterday, he did, and was only off sedation for about an hour and 15 minutes. The patient may not be ready yet. The patient did have hemodialysis yesterday, and will have an again today. Blood gases are consistent with metabolic acidosis. Chest x-ray, labs, and medications are reviewed. The patient remains on norepinephrine at 15 mcg/m. The patient remains on propofol at 25 mcg/kg/m. The patient also remains on Flagyl and cefepime. Prognosis is certainly guarded. We will continue to follow and make recommendations along the way. Plan dated 02/11/2022. Over the last couple of days, the patient has done poorly with his daily interruption of sedation. He is obviously not moving towards weaning and extubation. I had a conversation with his brother Joe today, and we did agree on proceeding with a tracheostomy and PEG one of the surgeons will be consulted. Labs, x-rays, and medications are reviewed. The patient will get hemodialysis again today. The patient remains on propofol and norepinephrine, as well as a bicarbonate drip. Nephrology is following. He is receiving tube feedings at goal. The patient's overall prognosis is very guarded. Plan dated 02/12/2022. We will proceed with tracheostomy and PEG tube, as these apparently are the wishes of the patient, and the wishes of the patient's brother, Joe. The patient has done very poorly with his daily interruption of sedation. Nephrology is following the patient has been doing daily hemodialysis. The patient remains on propofol, and norepinephrine. The patient is also on a sodium bicarbonate drip. He is receiving tube feedings at goal. Labs, x-rays, and medications are reviewed. Overall prognosis remains very guarded. Surgery has been consulted for the tracheostomy and PEG tube placement Time with Patient: Greater than 30
[2022-02-12] MEDS: TAMSULOSIN 0.4 MG CAP.ER.24H PO SCH (07:55)
[2022-02-12] MEDS: SODIUM BICARBONATE TAB 650 MG TAB PO SCH ×4 (08:05→20:06)
[2022-02-12] MEDS: PREGABALIN 100 MG CAP PO SCH ×2 (08:05→20:05)
[2022-02-12] MEDS: METOPROLOL TARTRATE 25 MG TAB PO SCH ×2 (08:05→20:05)
[2022-02-12] MEDS: PANTOPRAZOLE 40 MG/10 ML VIAL IVP SCH ×2 (08:05→20:05)
[2022-02-12] MEDS: CALCIUM ACETATE 667 MG TAB PO SCH ×2 (08:06→17:11)
[2022-02-12] MEDS: CEFEPIME 1 GM in SODIUM CHLORIDE 0.9% 50 ML IVPB SCH ×2 (08:06→22:55)
[2022-02-12] MEDS: AMIODARONE 200 MG TAB PO SCH ×2 (08:06→20:05)
[2022-02-12] MEDS: NICOTINE 21MG/24HR PATCH TRANSDERM SCH (08:06)
[2022-02-12] MEDS: CHLORHEXIDINE GLUCONATE 15 ML CUP MUCOUS MEM SCH ×2 (08:07→20:05)
[2022-02-12] MEDS: guaiFENesin 600 MG TABLET.ER PO SCH ×4 (08:07→20:06)
[2022-02-12] MEDS: levETIRAcetam IV 500 MG in SODIUM CHLORIDE 0.9% 100 ML IVPB SCH (08:09)
[2022-02-12] MEDS: ANIDULAFUNGIN 100 MG in SODIUM CHLORIDE 0.9% 100 ML IVPB SCH (08:09)
[2022-02-12] MEDS ORDERED: FUROSEMIDE 10 MG/ML 10 ML VIAL IV STA (09:01)
--- NOTE | 2022-02-12 09:17 | XR ---
EXAMINATION TYPE: XR chest 1V portable DATE OF EXAM: 02/12/2022 COMPARISON: 02/11/2022 HISTORY: Tube placement FINDINGS: There are bilateral pleural effusions with cardiomegaly and bibasilar infiltrate. There is a diffuse interstitial pattern. ET and NG tubes stable. PICC line noted. Limited inspiration. IMPRESSION: 1. Stable diffuse pleural parenchymal changes correlate for CHF otherwise consider diffuse pneumonia.
[2022-02-12] MEDS: COLLAGENASE 250 UNIT/GM OINTMENT 30 GM TUBE TOPICAL SCH (09:20)
[2022-02-12 09:36] LABS: Protein, Total 4.4 g/dL (6.2-8.2)
[2022-02-12 09:48] LABS: Hepatitis A Antibody IgM Nonreactive (Nonreactive); Hepatitis B Core IgM Nonreactive (Nonreactive); Hepatitis B Surface Antigen Nonreactive (Nonreactive); Hepatitis C IgG Antibody Nonreactive (Nonreactive)
--- NOTE | 2022-02-12 10:20 | P.PN ---
Subjective Patient is seen in follow-up for acute kidney injury. Started on hemodialysis 02/09/2022. Intubated. On Levophed. Receiving tube feeds. Also on bicarb drip. Acidosis improved. Urine output about 20-40 mL/hr the last few hours. Vital signs are stable. On Levophed. General: Resting in bed. HEENT: Intubated. LUNGS: Breath sounds decreased. HEART: Rate and Rhythm are regular. ABDOMEN: Soft, no distention. EXTREMITITES: 1+ edema. Objective - Vital Signs Vital signs: Vital Signs Temp 98.9 F 02/12/22 08:00 Pulse 75 02/12/22 10:00 Resp 24 02/12/22 10:00 BP 122/58 02/12/22 09:15 Pulse Ox 96 02/12/22 10:00 FiO2 40 02/12/22 08:00 Intake & Output 02/11/22 02/12/22 02/12/22 18:59 06:59 18:59 Intake Total 4738.547 2969.143 723.1 Output Total 1735 295 100 Balance -9.597 1390.143 623.1 Weight 146 kg 149.5 kg Intake: IV 1089 736 359 Anidulafungin 100 mg In 100 100 Sodium Chloride 0.9% 100 ml @ 84 mls/hr IVPB DAILY [facility] Rx#:[id number] Dextrose 5% in Water 1, 650 600 150 000 ml @ 50 mls/hr IV . Q23H [facility] with Sodium Bicarb (1 Meq/ml) 150 ml Rx#:[id number] Pressure bags 39 36 9 levETIRAcetam IV 500 mg 100 In Sodium Chloride 0.9% 100 ml @ 400 mls/hr IVPB Q12HR [facility] Rx#:[id number] metroNIDAZOLE-NS PMX 500 200 100 100 mg In Saline 1 100ml.bag @ 100 mls/hr IVPB Q8HR [facility] Rx#:[id number] Intake, IV Titration 201.403 292.143 90.1 Amount Norepinephrine 32 mg In 56.047 105.143 Sodium Chloride 0.9% 218 ml @ 0.05 MCG/KG/MIN 3. 246 mls/hr IV .Q24H [facility] Rx#:[id number] propofoL 1,000 mg In 145.356 187.0 90.1 Empty Bag 1 bag @ 5 MCG/ KG/MIN 4.08 mls/hr IV . Q24H [facility] Rx#:[id number] Tube Feeding 135 657 174 Hemodialysis 300 Other 100 Output: Urine 235 295 100 Hemodialysis 1500 Other: Voiding Method Indwelling Catheter Indwelling Catheter Indwelling Catheter ABP, PAP, CO, CI - Last Documented Arterial Blood Pressure 121/41 - Labs CBC & Chem 7: 02/12/22 05:30 02/12/22 05:30 Labs: Abnormal Lab Results - Last 24 Hours (Table) 02/11/22 02/11/22 02/11/22 Range/Units 04:16 12:20 17:32 WBC (3.8-10.6) k/uL RBC (4.30-5.90) m/uL Hgb (13.0-17.5) gm/dL Hct (39.0-53.0) % RDW (11.5-15.5) % Plt Count (150-450) k/uL Neutrophils # (1.3-7.7) k/uL Neutrophils # (Manual) 17.64 H (1.3-7.7) k/uL Monocytes # (Manual) 1.26 H (0-1.0) k/uL PT (9.0-12.0) sec INR (<1.2) ABG pO2 (83-108) mmHg ABG Hematocrit (34.0-46.0) % Hemoglobin (13.0-17.5) gm/dL Sodium (137-145) mmol/L Carbon Dioxide (22-30) mmol/L BUN (9-20) mg/dL Creatinine (0.66-1.25) mg/dL Glucose (74-99) mg/dL POC Glucose (mg/dL) 137 H 131 H (70-110) mg/dL Calcium (8.4-10.2) mg/dL Total Protein (PEP) (6.2-8.2) g/dL Complement C3 (80.0-207.0) mg/dL 02/11/22 02/12/22 02/12/22 Range/Units 20:14 00:10 05:13 WBC (3.8-10.6) k/uL RBC (4.30-5.90) m/uL Hgb (13.0-17.5) gm/dL Hct (39.0-53.0) % RDW (11.5-15.5) % Plt Count (150-450) k/uL Neutrophils # (1.3-7.7) k/uL Neutrophils # (Manual) (1.3-7.7) k/uL Monocytes # (Manual) (0-1.0) k/uL PT (9.0-12.0) sec INR (<1.2) ABG pO2 (83-108) mmHg ABG Hematocrit (34.0-46.0) % Hemoglobin (13.0-17.5) gm/dL Sodium (137-145) mmol/L Carbon Dioxide (22-30) mmol/L BUN (9-20) mg/dL Creatinine (0.66-1.25) mg/dL Glucose (74-99) mg/dL POC Glucose (mg/dL) 144 H 136 H 117 H (70-110) mg/dL Calcium (8.4-10.2) mg/dL Total Protein (PEP) (6.2-8.2) g/dL Complement C3 (80.0-207.0) mg/dL 02/12/22 02/12/22 02/12/22 Range/Units 05:30 05:30 05:50 WBC 15.9 H (3.8-10.6) k/uL RBC 3.45 L (4.30-5.90) m/uL Hgb 9.9 L (13.0-17.5) gm/dL Hct 31.1 L (39.0-53.0) % RDW 16.9 H (11.5-15.5) % Plt Count 149 L (150-450) k/uL Neutrophils # 12.8 H (1.3-7.7) k/uL Neutrophils # (Manual) (1.3-7.7) k/uL Monocytes # (Manual) (0-1.0) k/uL PT (9.0-12.0) sec INR (<1.2) ABG pO2 77 L (83-108) mmHg ABG Hematocrit 31 L (34.0-46.0) % Hemoglobin 10.1 L (13.0-17.5) gm/dL Sodium 136 L (137-145) mmol/L Carbon Dioxide 21 L (22-30) mmol/L BUN 57 H (9-20) mg/dL Creatinine 4.33 H (0.66-1.25) mg/dL Glucose 145 H (74-99) mg/dL POC Glucose (mg/dL) (70-110) mg/dL Calcium 7.2 L (8.4-10.2) mg/dL Total Protein (PEP) (6.2-8.2) g/dL Complement C3 (80.0-207.0) mg/dL 02/12/22 02/12/22 02/12/22 Range/Units 06:00 06:00 06:00 WBC (3.8-10.6) k/uL RBC (4.30-5.90) m/uL Hgb (13.0-17.5) gm/dL Hct (39.0-53.0) % RDW (11.5-15.5) % Plt Count (150-450) k/uL Neutrophils # (1.3-7.7) k/uL Neutrophils # (Manual) (1.3-7.7) k/uL Monocytes # (Manual) (0-1.0) k/uL PT 14.5 H (9.0-12.0) sec INR 1.4 H (<1.2) ABG pO2 (83-108) mmHg ABG Hematocrit (34.0-46.0) % Hemoglobin (13.0-17.5) gm/dL Sodium (137-145) mmol/L Carbon Dioxide (22-30) mmol/L BUN (9-20) mg/dL Creatinine (0.66-1.25) mg/dL Glucose (74-99) mg/dL POC Glucose (mg/dL) (70-110) mg/dL Calcium (8.4-10.2) mg/dL Total Protein (PEP) 4.4 L (6.2-8.2) g/dL Complement C3 78.0 L (80.0-207.0) mg/dL Assessment and Plan Plan: Assessment: 1. Acute kidney injury secondary to ATN secondary to septic shock. Started on hemodialysis 02/09/2022. Urine output a little better. Creatinine in April 2019 was 0.8. Creatinine was as low as 1.62 this admission. No hydronephrosis noted on CAT scan. 2. MSSA bacteremia with likely source being right foot ulcer. ID following. On antibiotics. 3. A. fib. Cardiology following. 4. Metabolic acidosis secondary to acute kidney injury. On bicarb drip. Better. 5. Diabetes mellitus. 6. Hyperphosphatemia secondary to acute kidney injury. On PhosLo. 7. Volume overload. Improved with ultrafiltration. Plan: Patient was dialyzed last 3 days. Will hold dialysis today. Lasix 80 mg IV once today. Continue to assess on daily basis for need for renal replacement therapy. Maintain sodium bicarbonate drip at 50 mL an hour. Maintain tube feeds. Wean FiO2 and vasopressors. Continue to monitor for renal recovery. Follow-up serologies. C3 slightly low. Trach and PEG being considered.
[2022-02-12 12:05] LABS: Glucose,Whole Blood 144 mg/dL (70-110)
--- NOTE | 2022-02-12 12:31 | P.PN ---
Progress Note - Text Progress Note Date: 02/12/22 This is a 61-year-old patient who follows with Dr. Sridhar Chan. Chronic stable medical conditions include diabetes, hypertension, hyperlipidemia, chronic low back problems, cigarette smoker. At the baseline uses a walker. Patient slipped in the bathroom falling on his buttock. Was not able to get up. By the EMS report he had fallen 24 hours prior to the picking him up. Patient been complaining of pain in the right rib cage in the lower back. X-ray was negative for fracture. Patient continued to have significant pain especially with deep breathing. Patient also had a congestive cough and wheezing. Some bloody sputum. Denies any fever and chills. Patient also complaining of urina ry retention and requesting a Shepard catheter. at the bedside. No fever no chills. Orthopedics consulted for the same. Patient normally has a bowel movement once a week. Patient also has a wound on the right foot lateral part of the ankles for about a week. Ischemic changes. From rubbing against a bedpost. Patient's INR in the ER was greater than 10. Was given vitamin K. 10 mg Patient bit with Coumadin toxicity, given vitamin K, acute COPD exacerbation, uncontrolled atrial flutter put on Lopressor, right chest wall pain. Computed tomography scan lumbar spine and chest was ordered. Large wound on the right lateral malleolus-ID and vascular consulted.. IV cefepime. February 01: Patient yesterday to see refused his computed tomography scan of the chest and lumbar spine. Done today. Right-sided rib fractures, pulmonary contusion confirm. L1 vertebral body 30% wedge compression fracture. Patient's girlfriend the bedside. It was discussed in detail with her. Patient wanting again and again to pull out his NG tube. Requests the to stay with the patient. Patient is also had the dark aspirate from the stomach for which she has NG tube. Surgery was consulted for the same. Also this morning right foot wound was debrided by Dr. Ibarra from vascular. Wound base was relatively clean. No undermining or tunneling. February 02: Delirious. NG tube to suction. Has been in restraints because point NG TUBE several times. Mumbling to himself. Dressing over the right ankle. Not in distress. Ileus. Chest x-ray showing right lower lobe/atelectasis. February 03: Hospital computer system was down. Patient remains delirious. Nasal cannula. Lethargic. Family the bedside. Antibiotics. A. fib uncontrolled. EEG evidence of metabolic encephalopathy. No clear-cut epileptiform activity. Started on Keppra by neurology. February 04: ICU: Girlfriend at the bedside. In atrial fibrillation uncontrolled. On IV Cardizem and IV amiodarone. NG tube to suction. Patient lethargic. Multiple breathing. 2 L. Oxygen. February 05: ICU. Atrial fibrillation better controlled this morning. Cardizem discontinued. Patient respiratory status worsened this morning and patient is intubated. FiO2 45 and a PEEP of 5. Atrial fibrillation, controlled. Drips include amiodarone, propofol, levo fed. Discussed with girlfriend the bedside. Understands prognosis guarded. February 06: ICU: Ventilated. FiO2 45 and a PEEP of 5. NG tube is clamped. On IV propofol. Sedated. Heart rate better controlled. Was started on Coumadin yesterday. Worsening renal function. Nephrology consulted. 02/07/2022 Patient is currently in the MICU and on mechanical ventilator. Tidal volume of 400, FiO2 40% and PEEP of 5. Patient is off pressor support today. Currently on propofol and is also on tube feeding. Chest x-ray showed stable exam with stable support lines and tubes. Correlate for congestive heart failure. Patient was given a dose of IV Lasix. Laboratory data showed WBC 18.4 hemoglobin 11.6 and platelets 458 Sodium 141 potassium 3.7 chloride 103 bicarb is 18 BUN 49 and creatinine 3.73 and calcium 7.3. INR is 2.2. Patient is being followed by nephrology cardiology and critical care team. 02/08/2022 Patient is currently on mechanical ventilator and sedated with propofol. Assist control with FiO2 40% and tidal volume of 400 and PEEP of 5. Patient is being continued on antibiotics above cefepime and Flagyl. Sputum gram stain gram-negative bacilli and Lynda. Chest x-ray today showed findings suggestive of slightly worsening CHF exacerbation as there is cardiomegaly with mild to moderate central venous congestion and small to moderate-sized bilateral pleural effusion. Laboratory test showed WBC increased to 23.6 hemoglobin 9.1 and platelets 162 INR 3.0 Sodium 139 potassium 4.3 chloride 113 bicarb is 40 BUN 54 and creatinine worsening to 4.36 February 09: I resumed the care of patient today ICU: Med: 40/5. Received vitamin K 5 mg IV to bring the INR down for dialysis catheter. Drips include bicarbonate, propofol, epinephrine. Patient is a stage II coccyx is ulcer. Plan is to change the NG tube to on G-tube today. For possible colitis/fistula on antibiotics. at the bedside. February 10: ICU. Ventilator 50/5. Hemodialysis catheter placed last night. Hemodialyzed yesterday and getting dialyzed today. Remains in atrial fibrillation heart rate uncontrolled. Getting up sedation holiday. Drips include bicarbonate and norepinephrine. Propofol currently held. 2 feeding at 46 mL an hour. Does open eyes. February 11: ICU. Ventilator. 50/5. Third day for hemodialysis. 1.5 L to be removed today. Back on propofol. Drips include bicarbonate, norepinephrine, propofol. On G-tube feeding. Patient back in sinus rhythm. Bag and tracheostomy to planning for next week. 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 IV antifungal started by ID. February 12: ICU: Ventilator: 40/5. Telemetry shows sinus rhythm. Drips include propofol and norepinephrine. On G-tube feeding. Discussed with the at the bedside. Understands prognosis guarded. IV antibiotics and antifungals. Active Medications Acetaminophen (Acetaminophen Tab 325 Mg Tab) 650 mg PO Q6HR PRN PRN Reason: Mild Pain or Fever > 100.5 Albuterol/Ipratropium (Ipratropium-Albuterol 3 Ml Neb) 3 ml INHALATION RT-QID [facility] Last Admin: 02/12/22 11:00 Dose: 3 ml Amiodarone HCl (Amiodarone 200 Mg Tab) 200 mg PO BID [facility] Last Admin: 02/12/22 08:06 Dose: 200 mg Artificial Tears (Artificial Tears-Hypromellose Drops 15 Ml Btl) 2 drops BOTH EYES TID PRN PRN Reason: Dry Eye(s) Budesonide (Budesonide 1 Mg/2 Ml Nebu) 1 mg INHALATION RT-BID [facility] Last Admin: 02/12/22 07:22 Dose: 1 mg Calcium Acetate (Calcium Acetate 667 Mg Tab) 667 mg PO BID-W/MEALS [facility] Last Admin: 02/12/22 08:06 Dose: 667 mg Calcium Carbonate/Glycine (Calcium Carbonate 500 Mg Chewable) 1,000 mg PO Q4HR PRN PRN Reason: Dyspepsia Last Admin: 01/31/22 14:29 Dose: 1,000 mg Chlorhexidine Gluconate (Chlorhexidine Gluconate 15 Ml Cup) 15 ml MUCOUS MEM BID [facility] Last Admin: 02/12/22 08:07 Dose: 15 ml Collagenase (Collagenase 250 Unit/Gm Ointment 30 Gm Tube) 1 applic TOPICAL DAILY [facility]; Protocol Last Admin: 02/12/22 09:20 Dose: 1 applic Dextrose/Water (Dextrose 50% Syringe 50 Ml) 25 ml IVP PER PROTOCOL PRN; Protoco l PRN Reason: Hypoglycemia Last Admin: 02/06/22 18:11 Dose: 25 ml Dextrose/Water (Dextrose 50% Syringe 50 Ml) 50 ml IVP PER PROTOCOL PRN; Protocol PRN Reason: Hypoglycemia Guaifenesin (Guaifenesin 600 Mg Tablet.Er) 600 mg PO QID [facility] Last Admin: 02/12/22 12:22 Dose: Not Given Hydromorphone HCl (Hydromorphone 0.5 Mg/0.5 Ml Syringe) 0.5 mg IVP Q3HR PRN PRN Reason: Pain Last Admin: 02/03/22 03:43 Dose: 0.5 mg Propofol 1,000 mg/ IV Solution 100 mls @ 4.08 mls/hr IV .Q24H [facility]; Protocol Last Admin: 02/12/22 08:09 Dose: 25 mcg/kg/min, 20.4 mls/hr Metronidazole 500 mg/ IV (Solution) 100 mls @ 100 mls/hr IVPB Q8HR [facility]; Protocol Last Admin: 02/12/22 08:06 Dose: 100 mls/hr Cefepime HCl 1 gm/ Sodium (Chloride) 50 mls @ 12.5 mls/hr IVPB Q12HR [facility] Last Admin: 02/12/22 08:06 Dose: 12.5 mls/hr Norepinephrine Bitartrate 32 (mg/ Sodium Chloride) 250 mls @ 3.246 mls/hr IV .Q24H [facility]; Protocol Last Titration: 02/12/22 02:47 Dose: 0.09 mcg/kg/min, 5.843 mls/hr Levetiracetam 500 mg/ Sodium (Chloride) 105 mls @ 400 mls/hr IVPB DAILY [facility] Last Admin: 02/12/22 08:09 Dose: 400 mls/hr Sodium Bicarbonate 150 ml/ (Dextrose/Water) 1,150 mls @ 50 mls/hr IV .Q23H [facility] Last Admin: 02/12/22 06:49 Dose: 50 mls/hr Anidulafungin 100 mg/ Sodium (Chloride) 100 mls @ 84 mls/hr IVPB DAILY [facility]; Protocol Last Admin: 02/12/22 08:09 Dose: 84 mls/hr Insulin Aspart (Insulin Aspart (Novolog) 100 Unit/Ml Vial) 0 unit SQ Q6HR [facility]; Protocol Last Admin: 02/12/22 12:13 Dose: Not Given Insulin Detemir (Insulin Detemir (Levemir) 100 Unit/Ml Syr) 14 unit SQ HS [facility] Last Admin: 02/11/22 20:42 Dose: 14 unit Lactulose (Lactulose 20 Gm/30 Ml Cup) 20 gm PO DAILY PRN PRN Reason: Constipation Last Admin: 02/11/22 15:45 Dose: 20 gm Melatonin (Melatonin 3 Mg Tablet) 3 mg PO HS PRN PRN Reason: Insomnia Metoprolol Tartrate (Metoprolol Tartrate 25 Mg Tab) 25 mg PO BID [facility] Last Admin: 02/12/22 08:05 Dose: 25 mg Miscellaneous Information (Potassium Replacement Protocol 1 Each Misc) 1 each MISCELLANE DAILY PRN; Protocol PRN Reason: Per Protocol Miscellaneous Information (Magnesium Replacement Protocol 1 Each Misc) 1 each MISCELLANE DAILY PRN; Protocol PRN Reason: Per Protocol Morphine Sulfate (Morphine Oral Soln 10 Mg/5 Ml Cup) 15 mg PO Q12H [facility] Last Admin: 02/12/22 00:32 Dose: 15 mg Naloxone HCl (Naloxone 0.4 Mg/Ml 1 Ml Vial) 0.2 mg IV Q2M PRN PRN Reason: Opioid Reversal Nicotine (Nicotine 21mg/24hr Patch) 1 patch TRANSDERM DAILY [facility] Last Admin: 02/12/22 08:06 Dose: 1 patch Ondansetron HCl (Ondansetron 4 Mg/2 Ml Vial) 4 mg IVP Q8HR PRN PRN Reason: Nausea And Vomiting Last Admin: 02/02/22 08:41 Dose: 4 mg Pantoprazole Sodium (Pantoprazole 40 Mg/10 Ml Vial) 40 mg IVP BID [facility] Last Admin: 02/12/22 08:05 Dose: 40 mg Pregabalin (Pregabalin 100 Mg Cap) 100 mg PO BID [facility] Last Admin: 02/12/22 08:05 Dose: 100 mg Sodium Bicarbonate (Sodium Bicarbonate Tab 650 Mg Tab) 1,300 mg PO QID [facility] Last Admin: 02/12/22 08:05 Dose: 1,300 mg Tamsulosin HCl (Tamsulosin 0.4 Mg Cap.Er.24h) 0.4 mg PO PC-BRKFST [facility] Last Admin: 02/12/22 07:55 Dose: Not Given Past medical history to include: COPD, diabetes, hypertension, hyperlipidemia, back problems, TB, atrial fibrillation, on Coumadin Social history: Smokes a pack a day for close to 50 years. Stop doing alcohol some time ago. Lives with his significant other Sandra. Does use a walker. 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 Conjunctiva normal. HEENT: External appearance of nose and ears normal, oral cavity dry, OG tube with tube feeding, endotracheal tube NECK: JVD not raised; masses not palpable. HEART: Heart sounds regular; mild edema. LUNGS: Respiratory rate increased; decreased breath sound, ABDOMEN: Soft, distended, nontender, liver spleen not palpable, no masses palpable. PSYCH: Unable to assess, patient lethargic DERMATOLOGICAL: Wound on right ankle lateral malleolus. Under dressing. Stage II coccygeal breakdown. See nursing notes INVESTIGATIONS, reviewed in the clinical context: February 12: WBC 15.9 hemoglobin 9.9 platelets 149 potassium 4.4 BUN 57 creatinine 4.33 Acute hepatitis screen: Negative Complement C3 78, complement C4 19.6 February 11: Sodium 138 potassium 4.4 creatinine 4.19 Sputum: Stenostrophonas maltophilia, Lynda albicans Computed tomography scan abdomen and pelvis [February 06] 6 mm stone in the right renal collecting system. Some circumferential wall thickening of the cecum and ascending colon. Distention of the rectum 7.5 cm with solid stool. EEG: Evidence of encephalopathy. No obvious epileptiform activity. 2-D echocardiogram: EF 60-65%. Renal ultrasound: Shows bilateral normal cortical medullary thickness. February 01: WBC 17.1 hemoglobin 14.8 UA: Blood large, leukoesterase moderate WBC 28 nitrite negative Lumbar spine CT: Anterior wedge compression deformity of L1. Multiple level DJD. 7 mm calculus right renal pelvis. CT chest without contrast: Right lateral eighth through 10th rib fractures with associated gas trace hemothorax right lower lobe pulmonary contusion/atelectasis. Patchy) disease left upper lobe. WBC 25.8 hemoglobin 14.1 platelets 217 INR greater than 10 sodium 131 potassium 3.9. 24 creatinine 1.8 to EKG tracing personally reviewed by me-atrial flutter. Rate 132 Foot/Lumbar/sacral coccyx: Spondylitic changes. No fracture. Chest x-ray film personally reviewed by me-clinically. Possible hyperinflation Assessment and plan: -Coumadin toxicity. INR greater than 10. On presentation: 10 mg vitamin K in the ER. Hemoptysis on presentation. Coumadin resumed on February 05.. - right lung contusion.-Secondary to fall. hemoptysis on presentation -Pneumonia, secondary to Stenostrophonas maltophilia, Lynda albicans: Slow to respond IV cefepime, IV anidulafungin -Sepsis with positive blood cultures MSSA, likely source right ankle. From January 31. IV cefepime. February 04 blood culture negative -Acute hypoxic respiratory failure, multifactorial: ventilator support,: Slow to respond Patient intubated on February 05 -Acute COPD exacerbation, with chronic bronchitis component in a current smoker: Slow to respond DuoNeb. Nebulized Pulmicort. Mucinex. -Chronic nicotine dependence, cigarette smoker Nicotine patch -Paroxysmal atrial flutter,: Back in sinus rhythm Lopressor 50 mg 3 times a day. 2-D echocardiogram unremarkable. Oral ami odarone Coumadin started on February 05 -Possible CK D with possible acute component. creatinine was 0.8 in April 2019. Renal ultrasound unremarkable. UA shows trace protein. IV fluids.. -Acute kidney injury, ATN, likely cardiorenal syndrome.: Not improving Follow with nephrology. Hemodialysis started February 09 -Acute right-sided 8-10 ribs fracture secondary to fall K pad -Diabetes mellitus type 2, chronically on oral hypoglycemic Hold Glucotrol. Sliding scale insulin. Levemir 14 units daily at bedtime -Diabetic peripheral neuropathy Decreased dose of Lyrica in the setting of renal failure. 100 mg twice a day -Chronic low back pain: MS Contin 15 mg every 12, [place] 7.5 twice a day when necessary -Anxiety depression not otherwise specified Wellbutrin XL 100 mg twice a day -Hyperlipidemia Lipitor 40 mg daily at bedtime -Right ankle lateral, diabetic wound, stage II acute. Wound culture positive for Streptococcus agalactiae and Staphylococcus aureus. IV Ancef initially. Follow with ID Patient has poor distal pulses. February 01 wound was debrided by Dr. Ibarra. Clean base. -Acute L1 30% wedge fracture secondary to fall LSO brace. Be followed by Dr. Damon -Acute delirium multifactorial. Slow to respond -Acute ileus, NG tube for decompression.; clamped.: Corrected Being followed by surgery. -Possible colitis /fistula on computed tomography scan. IV Flagyl. Cefepime. Followed by surgery Discussed with the the bedside. Understands prognosis guarded. IV propofol, IV norepinephrine. IV Flagyl,/IV cefepime/IV anidulafungin
--- NOTE | 2022-02-12 13:09 | P.PN ---
Subjective Progress Note Date: 02/12/22 The patient is seen at bedside and continues to be about the same. He continues to be intubated on ventilator and continues to be on IV Propofol 25mcg/kg/min. Objective - Vital Signs Vital signs: Vital Signs Temp 98.9 F 02/12/22 08:00 Pulse 76 02/12/22 11:13 Resp 24 02/12/22 10:00 BP 122/58 02/12/22 09:15 Pulse Ox 96 02/12/22 10:00 FiO2 40 02/12/22 11:02 Intake & Output 02/11/22 02/12/22 02/12/22 18:59 06:59 18:59 Intake Total 9485.953 1893.143 723.1 Output Total 1735 295 100 Balance -9.597 1390.143 623.1 Weight 146 kg 149.5 kg Intake: IV 1089 736 359 Anidulafungin 100 mg In 100 100 Sodium Chloride 0.9% 100 ml @ 84 mls/hr IVPB DAILY [facility] Rx#:[id number] Dextrose 5% in Water 1, 650 600 150 000 ml @ 50 mls/hr IV . Q23H [facility] with Sodium Bicarb (1 Meq/ml) 150 ml Rx#:[id number] Pressure bags 39 36 9 levETIRAcetam IV 500 mg 100 In Sodium Chloride 0.9% 100 ml @ 400 mls/hr IVPB Q12HR [facility] Rx#:[id number] metroNIDAZOLE-NS PMX 500 200 100 100 mg In Saline 1 100ml.bag @ 100 mls/hr IVPB Q8HR [facility] Rx#:[id number] Intake, IV Titration 201.403 292.143 90.1 Amount Norepinephrine 32 mg In 56.047 105.143 Sodium Chloride 0.9% 218 ml @ 0.05 MCG/KG/MIN 3. 246 mls/hr IV .Q24H [facility] Rx#:[id number] propofoL 1,000 mg In 145.356 187.0 90.1 Empty Bag 1 bag @ 5 MCG/ KG/MIN 4.08 mls/hr IV . Q24H [facility] Rx#:[id number] Tube Feeding 135 657 174 Hemodialysis 300 Other 100 Output: Urine 235 295 100 Hemodialysis 1500 Other: Voiding Method Indwelling Catheter Indwelling Catheter Indwelling Catheter ABP, PAP, CO, CI - Last Documented Arterial Blood Pressure 121/41 - Exam GENERAL: The patient is a morbid obese gentleman lying in bed and does not appear in acute distress. HENT: Supple neck. LUNG: Intubated on ventilator. NEUROLOGICAL: Limited because of his condition. IV Propofol 25mcg/kg/min Higher mental function: The patient is comatose. GCS 3 (E1, VT1, M1). Patient is not following commands or attempting to verbalize. Cranial nerves: I had to manually open his eeyes. The pupils are round, 2mm equal and reactive to light. Primary gaze is midline. No facial weakness. Has weak cough reflex with suctioning and grimaces face. Is breathing at vent setting A/C set at 24. Motor: The strength is in movement is appreciated. Normal bulk. Sensation: Unable to assess light touch. - Labs CBC & Chem 7: 02/12/22 05:30 02/12/22 05:30 Labs: Abnormal Lab Results - Last 24 Hours (Table) 02/11/22 02/11/22 02/12/22 Range/Units 17:32 20:14 00:10 WBC (3.8-10.6) k/uL RBC (4.30-5.90) m/uL Hgb (13.0-17.5) gm/dL Hct (39.0-53.0) % RDW (11.5-15.5) % Plt Count (150-450) k/uL Neutrophils # (1.3-7.7) k/uL PT (9.0-12.0) sec INR (<1.2) ABG pO2 (83-108) mmHg ABG Hematocrit (34.0-46.0) % Hemoglobin (13.0-17.5) gm/dL Sodium (137-145) mmol/L Carbon Dioxide (22-30) mmol/L BUN (9-20) mg/dL Creatinine (0.66-1.25) mg/dL Glucose (74-99) mg/dL POC Glucose (mg/dL) 131 H 144 H 136 H (70-110) mg/dL Calcium (8.4-10.2) mg/dL Total Protein (PEP) (6.2-8.2) g/dL Complement C3 (80.0-207.0) mg/dL 02/12/22 02/12/2222 Range/Units 05:13 05:30 05:30 WBC 15.9 H (3.8-10.6) k/uL RBC 3.45 L (4.30-5.90) m/uL Hgb 9.9 L (13.0-17.5) gm/dL Hct 31.1 L (39.0-53.0) % RDW 16.9 H (11.5-15.5) % Plt Count 149 L (150-450) k/uL Neutrophils # 12.8 H (1.3-7.7) k/uL PT (9.0-12.0) sec INR (<1.2) ABG pO2 (83-108) mmHg ABG Hematocrit (34.0-46.0) % Hemoglobin (13.0-17.5) gm/dL Sodium 136 L (137-145) mmol/L Carbon Dioxide 21 L (22-30) mmol/L BUN 57 H (9-20) mg/dL Creatinine 4.33 H (0.66-1.25) mg/dL Glucose 145 H (74-99) mg/dL POC Glucose (mg/dL) 117 H (70-110) mg/dL Calcium 7.2 L (8.4-10.2) mg/dL Total Protein (PEP) (6.2-8.2) g/dL Complement C3 (80.0-207.0) mg/dL 02/12/22 02/12/22 02/12/22 Range/Units 05:50 06:00 06:00 WBC (3.8-10.6) k/uL RBC (4.30-5.90) m/uL Hgb (13.0-17.5) gm/dL Hct (39.0-53.0) % RDW (11.5-15.5) % Plt Count (150-450) k/uL Neutrophils # (1.3-7.7) k/uL PT (9.0-12.0) sec INR (<1.2) ABG pO2 77 L (83-108) mmHg ABG Hematocrit 31 L (34.0-46.0) % Hemoglobin 10.1 L (13.0-17.5) gm/dL Sodium (137-145) mmol/L Carbon Dioxide (22-30) mmol/L BUN (9-20) mg/dL Creatinine (0.66-1.25) mg/dL Glucose (74-99) mg/dL POC Glucose (mg/dL) (70-110) mg/dL Calcium (8.4-10.2) mg/dL Total Protein (PEP) 4.4 L (6.2-8.2) g/dL Complement C3 78.0 L (80.0-207.0) mg/dL 02/12/22 02/12/22 Range/Units 06:00 12:03 WBC (3.8-10.6) k/uL RBC (4.30-5.90) m/uL Hgb (13.0-17.5) gm/dL Hct (39.0-53.0) % RDW (11.5-15.5) % Plt Count (150-450) k/uL Neutrophils # (1.3-7.7) k/uL PT 14.5 H (9.0-12.0) sec INR 1.4 H (<1.2) ABG pO2 (83-108) mmHg ABG Hematocrit (34.0-46.0) % Hemoglobin (13.0-17.5) gm/dL Sodium (137-145) mmol/L Carbon Dioxide (22-30) mmol/L BUN (9-20) mg/dL Creatinine (0.66-1.25) mg/dL Glucose (74-99) mg/dL POC Glucose (mg/dL) 144 H (70-110) mg/dL Calcium (8.4-10.2) mg/dL Total Protein (PEP) (6.2-8.2) g/dL Complement C3 (80.0-207.0) mg/dL Assessment and Plan Assessment: * Altered mental status due to multifactorial: Metabolic encephalopathy/uremic encephalopathy (getting dialysis) and septicemia from cellulitis of right foot ulcer. Also due to medication effect (IV Propofol). Myoclonic twitching has resolved. * Cellulitis with right foot ulcer * Septicemia with staph aureus. * Status post fall with L1 compression fracture * Moderate renal insufficiency, worsening getting dialysis (day #3). * Coagulopathy * Right sided rib fractures secondary to fall. 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 * Peripheral edema. * Long-standing history of frequent falls, uses walker * COPD * Chronic tobacco use * Diabetes with hemoglobin A1c 8.1 * Probable diabetic peripheral neuropathy. * Peripheral arterial disease Plan: * Patient's renal functions are worsening. Dr. Stoll decreased Keppra to 500 mg once daily and recommended, if the patient recovers, then Keppra can be weaned off. * Repeat CT head is reported as old left occipital lobe infarct. Mild atrophy. No acute intracranial abnormality. No significant change compared to recent exam. Epileptiform reviewed the CT of the head and I agree there is no acute or subacute ischemia and there is no at the proximal hemorrhage. * Repeat routine EEG on 02/11/2022: As abnormal. The background slowing is suggestive of severe encephalopathy likely due to toxic metabolic abnormality. Otherwise there is no focal slowing, epileptiform discharges or seizure on the EEG. * I.D. is on obard. * Will defer the rest of medical management to the primary and ICU team. * Please avoid any sedation or opiates use if possible that will affect neurological examination. Will follow-up with patient sporadically. Chava Jackson M.D. Neuro-Hospitalist. Time with Patient: Less than 30
[2022-02-12] MEDS ORDERED: ROCURONIUM 10 MG/ML (5 ML VIAL) IV ONE (16:16)
--- NOTE | 2022-02-12 16:50 | P.PCN ---
Date of Procedure: 02/12/22 Procedure(s) Performed: PREOPERATIVE DIAGNOSIS: Malnutrition, respiratory failure POSTOPERATIVE DIAGNOSIS: Same PROCEDURE: EGD with PEG tube placement SURGEON: Nelly EBL: Minimal ANESTHESIA: Sedation COMPLICATIONS: None OPERATIVE PROCEDURE: The patient was placed in the supine position on the endoscopy table. The patient was sedated per anesthesia that time. The Olympus gastroscope was inserted into the oropharynx and passed under direct visualization to the region of the duodenum. No obstruction was seen. The pylorus was widely patent. The stomach was carefully inspected. The patient had a large volume of gastric fluid. Approximately 600 mL was evacuated through the scope. This was nonbloody. There was mild gastritis seen. No ulcers were noted. The stomach was fully insufflated with air. The abdominal wall was inspected. The light was seen shining through the abdominal wall in the left upper quadrant. This site was chosen for PEG tube placement. The area was prepped in the usual sterile fashion. This area was then localized with lidocaine. No air was evident when aspirating while advancing the localizing needle into the stomach until the stomach was reached. A small vertical incision was made using the scalpel. The Seldinger needle was advanced into the lumen of the stomach the wire was advanced. The wire was grasped with an endoscopic snare. The wire was pulled through the oropharynx. The catheter was then threaded over the guidewire and the guidewire and catheter were pulled anteriorly until the hub of the PEG tube catheter was seated against the anterior wall the stomach. The circular bolster was applied and tightened down. The endoscope was then readvanced into the stomach. There was no evidence of any bleeding and there was appropriate tightness on the bolster. The catheter was cut appropriately. The dual port feeding adapter was applied. DISPOSITION: Patient will remain in the ICU.
[2022-02-12 20:04] LABS: Glucose,Whole Blood 140 mg/dL (70-110)
[2022-02-12 20:04] LABS: Glucose,Whole Blood 116 mg/dL (70-110)
[2022-02-12] MEDS: INSULIN DETEMIR (LEVEMIR) 100 UNIT/ML SYR SQ SCH (20:06)
--- NOTE | 2022-02-12 21:51 | P.PN ---
Subjective Progress Note Date: 02/11/22 Principal diagnosis: Right foot infected pressure ulcer and bacteremia Patient is a 61-year-old male presented to the hospital for evaluation of fall patient also noticed to have a wound on the right lateral foot with some necrotic edges which has been debridement by vascular surgery on 01/31/2022.Patient has been transthoracic because of significant mental status changes, The patient ended up getting intubated, the patient also have worsening of the kidney function requiring dialysis catheter placement and has been started on dialysis as of 02/09/2022 On today's evaluation that is 02/11/2022, The patient remains to be afebrile, the patient FiO2 is down to 40 %, no significant purulent secretion through the ET diarrhea or any changes reported by the nursing staff, patient is requiring low-dose pressor support, patient did not tolerate his dialysis today Objective - Vital Signs Vital signs: Vital Signs Temp 99.3 F 02/11/22 08:00 Pulse 97 02/11/22 11:07 Resp 24 02/11/22 10:00 BP 85/50 02/11/22 10:00 Pulse Ox 97 02/11/22 10:00 FiO2 50 02/11/22 10:51 Intake & Output 02/10/22 02/11/22 02/11/22 18:59 06:59 18:59 Intake Total 2706.642 1396.101 529.294 Output Total 1015 220 75 Balance 2526.598 6457.101 454.294 Weight 146 kg Intake: IV 1010 636 359 Anidulafungin 100 mg In 100 Sodium Chloride 0.9% 100 ml @ 84 mls/hr IVPB DAILY [facility] Rx#:[id number] Cefepime 1 gm In Sodium 50 Chloride 0.9% 50 ml @ 12. 5 mls/hr IVPB Q12HR [facility] Rx#:[id number] Dextrose 5% in Water 1, 600 600 150 000 ml @ 50 mls/hr IV . Q23H [facility] with Sodium Bicarb (1 Meq/ml) 150 ml Rx#:[id number] Pressure bags 60 36 9 levETIRAcetam IV 500 mg 100 In Sodium Chloride 0.9% 100 ml @ 400 mls/hr IVPB DAILY [facility] Rx#:[id number] metroNIDAZOLE-NS PMX 500 200 100 mg In Saline 1 100ml.bag @ 100 mls/hr IVPB Q8HR [facility] Rx#:[id number] Intake, IV Titration 406.642 340.101 35.294 Amount Norepinephrine 32 mg In 227.802 22.977 35.294 Sodium Chloride 0.9% 218 ml @ 0.05 MCG/KG/MIN 3. 246 mls/hr IV .Q24H [facility] Rx#:[id number] propofoL 1,000 mg In 178.84 317.124 Empty Bag 1 bag @ 5 MCG/ KG/MIN 4.08 mls/hr IV . Q24H [facility] Rx#:[id number] Tube Feeding 540 360 135 Hemodialysis 750 Other 60 Output: Urine 215 220 75 Hemodialysis 800 Other: Voiding Method Indwelling Catheter Indwelling Catheter Indwelling Catheter ABP, PAP, CO, CI - Last Documented Arterial Blood Pressure 71/31 - Exam GENERAL DESCRIPTION: Middle-aged male intubated on the vent. LUNGS: Unlabored breathing. Decreased breath sound at the base HEART: S1, S2, regular rate and rhythm. No loud murmur ABDOMEN: Soft, no tenderness , guarding or rigidity, no organomegaly EXTREMITIES: Right foot wound is currently dressed no drainage on the dressing - Labs CBC & Chem 7: 02/12/22 05:30 02/12/22 05:30 Labs: Abnormal Lab Results - Last 24 Hours (Table) 02/10/22 02/10/22 02/10/22 Range/Units 04:00 16:08 17:08 WBC (3.8-10.6) k/uL RBC (4.30-5.90) m/uL Hgb (13.0-17.5) gm/dL Hct (39.0-53.0) % RDW (11.5-15.5) % Neutrophils # (Manual) (1.3-7.7) k/uL Monocytes # (Manual) (0-1.0) k/uL PT (9.0-12.0) sec INR (<1.2) ABG pH (7.35-7.45) ABG O2 Saturation (94-97) % ABG Hematocrit (34.0-46.0) % Hemoglobin (13.0-17.5) gm/dL Carbon Dioxide (22-30) mmol/L BUN (9-20) mg/dL Creatinine (0.66-1.25) mg/dL Glucose (74-99) mg/dL POC Glucose (mg/dL) 164 H (70-110) mg/dL Calcium (8.4-10.2) mg/dL Procalcitonin 2.07 H (0.02-0.09) ng/mL Urine Protein 1+ H (Negative) Urine Blood Large H (Negative) Ur Leukocyte Esterase Small H (Negative) Urine RBC >182 H (0-5) /hpf Urine WBC 19 H (0-5) /hpf Amorphous Sediment Rare H (None) /hpf Urine Bacteria Rare H (None) /hpf 02/10/22 02/10/22 02/11/22 Range/Units 21:04 23:15 04:16 WBC 21.0 H (3.8-10.6) k/uL RBC 3.76 L (4.30-5.90) m/uL Hgb 10.7 L (13.0-17.5) gm/dL Hct 34.3 L (39.0-53.0) % RDW 16.9 H (11.5-15.5) % Neutrophils # (Manual) 17.64 H (1.3-7.7) k/uL Monocytes # (Manual) 1.26 H (0-1.0) k/uL PT (9.0-12.0) sec INR (<1.2) ABG pH (7.35-7.45) ABG O2 Saturation (94-97) % ABG Hematocrit (34.0-46.0) % Hemoglobin (13.0-17.5) gm/dL Carbon Dioxide (22-30) mmol/L BUN (9-20) mg/dL Creatinine (0.66-1.25) mg/dL Glucose (74-99) mg/dL POC Glucose (mg/dL) 117 H 140 H (70-110) mg/dL Calcium (8.4-10.2) mg/dL Procalcitonin (0.02-0.09) ng/mL Urine Protein (Negative) Urine Blood (Negative) Ur Leukocyte Esterase (Negative) Urine RBC (0-5) /hpf Urine WBC (0-5) /hpf Amorphous Sediment (None) /hpf Urine Bacteria (None) /hpf 02/11/22 02/11/22 02/11/22 Range/Units 04:16 05:59 06:11 WBC (3.8-10.6) k/uL RBC (4.30-5.90) m/uL Hgb (13.0-17.5) gm/dL Hct (39.0-53.0) % RDW (11.5-15.5) % Neutrophils # (Manual) (1.3-7.7) k/uL Monocytes # (Manual) (0-1.0) k/uL PT 13.6 H (9.0-12.0) sec INR 1.3 H (<1.2) ABG pH 7.33 L (7.35-7.45) ABG O2 Saturation 97.5 H (94-97) % ABG Hematocrit 32 L (34.0-46.0) % Hemoglobin 10.5 L (13.0-17.5) gm/dL Carbon Dioxide (22-30) mmol/L BUN (9-20) mg/dL Creatinine (0.66-1.25) mg/dL Glucose (74-99) mg/dL POC Glucose (mg/dL) 129 H (70-110) mg/dL Calcium (8.4-10.2) mg/dL Procalcitonin (0.02-0.09) ng/mL Urine Protein (Negative) Urine Blood (Negative) Ur Leukocyte Esterase (Negative) Urine RBC (0-5) /hpf Urine WBC (0-5) /hpf Amorphous Sediment (None) /hpf Urine Bacteria (None) /hpf 02/11/22 Range/Units 08:29 WBC (3.8-10.6) k/uL RBC (4.30-5.90) m/uL Hgb (13.0-17.5) gm/dL Hct (39.0-53.0) % RDW (11.5-15.5) % Neutrophils # (Manual) (1.3-7.7) k/uL Monocytes # (Manual) (0-1.0) k/uL PT (9.0-12.0) sec INR (<1.2) ABG pH (7.35-7.45) ABG O2 Saturation (94-97) % ABG Hematocrit (34.0-46.0) % Hemoglobin (13.0-17.5) gm/dL Carbon Dioxide 20 L (22-30) mmol/L BUN 57 H (9-20) mg/dL Creatinine 4.19 H (0.66-1.25) mg/dL Glucose 144 H (74-99) mg/dL POC Glucose (mg/dL) (70-110) mg/dL Calcium 7.0 L (8.4-10.2) mg/dL Procalcitonin (0.02-0.09) ng/mL Urine Protein (Negative) Urine Blood (Negative) Ur Leukocyte Esterase (Negative) Urine RBC (0-5) /hpf Urine WBC (0-5) /hpf Amorphous Sediment (None) /hpf Urine Bacteria (None) /hpf Microbiology - Last 24 Hours (Table) 02/04/22 09:39 Blood Culture - Final Blood No Growth after 144 hours 02/04/22 09:39 Blood Culture - Final Blood No Growth after 144 hours Assessment and Plan (1) Cellulitis Current Visit: Yes Status: Acute Code(s): L03.90 - CELLULITIS, UNSPECIFIED SNOMED Code(s): 138401272 Plan: 1patient with right foot unstageable pressure ulcer with surrounding necrotic area and cellulitis x-rays do not show any bony changes likely from gram- positive skin caleb and less likely gram-negative pathogen, patient is status post vascular surgery evaluation and debridement and deep cultureWhich has been finalized with strep and MSSA. 2-patient with MSSA bacteremia source is likely right foot infected pressure u lcer, Repeat blood culture has been negative 3Patient did have significant abnormality seen on the CT obtained by surgery with concern for possible fecal impaction and some inflammation of the colon and possible fistula. 4- patient sputum has been finalized with stenotrophomonas sensitive to Fortaz and should be covered with cefepime also showing Lynda albicans the patient did have persistent elevated white count and possible component of oropharyngeal candidiasis, Diflucan cannot be used as the patient is on amiodarone and Eraxis was added yesterday and the patient white count is trending down Time with Patient: Less than 30
--- NOTE | 2022-02-12 21:52 | P.PN ---
Subjective Progress Note Date: 02/12/22 Principal diagnosis: Right foot infected pressure ulcer and bacteremia Patient is a 61-year-old male presented to the hospital for evaluation of fall patient also noticed to have a wound on the right lateral foot with some necrotic edges which has been debridement by vascular surgery on 01/31/2022.Patient has been transthoracic because of significant mental status changes, The patient ended up getting intubated, the patient also have worsening of the kidney function requiring dialysis catheter placement and has been started on dialysis as of 02/09/2022 On today's evaluation that is 02/12/2022, The patient continues to be afebrile, the patient FiO2 is stable at 40 %, no significant purulent secretion through the ET diarrhea or any changes reported by the nursing staff, patient is still requiring low-dose pressor support to maintain his blood pressure Objective - Vital Signs Vital signs: Vital Signs Temp 98.9 F 02/12/22 08:00 Pulse 76 02/12/22 11:13 Resp 24 02/12/22 10:00 BP 122/58 02/12/22 09:15 Pulse Ox 96 02/12/22 10:00 FiO2 40 02/12/22 11:02 Intake & Output 02/11/22 02/12/22 02/12/22 18:59 06:59 18:59 Intake Total 6768.606 9940.143 723.1 Output Total 1735 295 100 Balance -9.597 1390.143 623.1 Weight 146 kg 149.5 kg Intake: IV 1089 736 359 Anidulafungin 100 mg In 100 100 Sodium Chloride 0.9% 100 ml @ 84 mls/hr IVPB DAILY [facility] Rx#:[id number] Dextrose 5% in Water 1, 650 600 150 000 ml @ 50 mls/hr IV . Q23H [facility] with Sodium Bicarb (1 Meq/ml) 150 ml Rx#:[id number] Pressure bags 39 36 9 levETIRAcetam IV 500 mg 100 In Sodium Chloride 0.9% 100 ml @ 400 mls/hr IVPB Q12HR [facility] Rx#:[id number] metroNIDAZOLE-NS PMX 500 200 100 100 mg In Saline 1 100ml.bag @ 100 mls/hr IVPB Q8HR [facility] Rx#:[id number] Intake, IV Titration 201.403 292.143 90.1 Amount Norepinephrine 32 mg In 56.047 105.143 Sodium Chloride 0.9% 218 ml @ 0.05 MCG/KG/MIN 3. 246 mls/hr IV .Q24H [facility] Rx#:[id number] propofoL 1,000 mg In 145.356 187.0 90.1 Empty Bag 1 bag @ 5 MCG/ KG/MIN 4.08 mls/hr IV . Q24H [facility] Rx#:[id number] Tube Feeding 135 657 174 Hemodialysis 300 Other 100 Output: Urine 235 295 100 Hemodialysis 1500 Other: Voiding Method Indwelling Catheter Indwelling Catheter Indwelling Catheter ABP, PAP, CO, CI - Last Documented Arterial Blood Pressure 121/41 - Exam GENERAL DESCRIPTION: Middle-aged male intubated on the vent. LUNGS: Unlabored breathing. Decreased breath sound at the base HEART: S1, S2, regular rate and rhythm. No loud murmur ABDOMEN: Soft, no tenderness , guarding or rigidity, no organomegaly EXTREMITIES: Right foot wound is currently dressed no drainage on the dressing - Labs CBC & Chem 7: 02/12/22 05:30 02/12/22 05:30 Labs: Abnormal Lab Results - Last 24 Hours (Table) 02/11/22 02/11/22 02/12/22 Range/Units 17:32 20:14 00:10 WBC (3.8-10.6) k/uL RBC (4.30-5.90) m/uL Hgb (13.0-17.5) gm/dL Hct (39.0-53.0) % RDW (11.5-15.5) % Plt Count (150-450) k/uL Neutrophils # (1.3-7.7) k/uL PT (9.0-12.0) sec INR (<1.2) ABG pO2 (83-108) mmHg ABG Hematocrit (34.0-46.0) % Hemoglobin (13.0-17.5) gm/dL Sodium (137-145) mmol/L Carbon Dioxide (22-30) mmol/L BUN (9-20) mg/dL Creatinine (0.66-1.25) mg/dL Glucose (74-99) mg/dL POC Glucose (mg/dL) 131 H 144 H 136 H (70-110) mg/dL Calcium (8.4-10.2) mg/dL Total Protein (PEP) (6.2-8.2) g/dL Complement C3 (80.0-207.0) mg/dL 02/12/22 02/12/22 02/12/22 Range/Units 05:13 05:30 05:30 WBC 15.9 H (3.8-10.6) k/uL RBC 3.45 L (4.30-5.90) m/uL Hgb 9.9 L (13.0-17.5) gm/dL Hct 31.1 L (39.0-53.0) % RDW 16.9 H (11.5-15.5) % Plt Count 149 L (150-450) k/uL Neutrophils # 12.8 H (1.3-7.7) k/uL PT (9.0-12.0) sec INR (<1.2) ABG pO2 (83-108) mmHg ABG Hematocrit (34.0-46.0) % Hemoglobin (13.0-17.5) gm/dL Sodium 136 L (137-145) mmol/L Carbon Dioxide 21 L (22-30) mmol/L BUN 57 H (9-20) mg/dL Creatinine 4.33 H (0.66-1.25) mg/dL Glucose 145 H (74-99) mg/dL POC Glucose (mg/dL) 117 H (70-110) mg/dL Calcium 7.2 L (8.4-10.2) mg/dL Total Protein (PEP) (6.2-8.2) g/dL Complement C3 (80.0-207.0) mg/dL 02/12/22 02/12/22 02/12/22 Range/Units 05:50 06:00 06:00 WBC (3.8-10.6) k/uL RBC (4.30-5.90) m/uL Hgb (13.0-17.5) gm/dL Hct (39.0-53.0) % RDW (11.5-15.5) % Plt Count (150-450) k/uL Neutrophils # (1.3-7.7) k/uL PT (9.0-12.0) sec INR (<1.2) ABG pO2 77 L (83-108) mmHg ABG Hematocrit 31 L (34.0-46.0) % Hemoglobin 10.1 L (13.0-17.5) gm/dL Sodium (137-145) mmol/L Carbon Dioxide (22-30) mmol/L BUN (9-20) mg/dL Creatinine (0.66-1.25) mg/dL Glucose (74-99) mg/dL POC Glucose (mg/dL) (70-110) mg/dL Calcium (8.4-10.2) mg/dL Total Protein (PEP) 4.4 L (6.2-8.2) g/dL Complement C3 78.0 L (80.0-207.0) mg/dL 02/12/22 02/12/22 Range/Units 06:00 12:03 WBC (3.8-10.6) k/uL RBC (4.30-5.90) m/uL Hgb (13.0-17.5) gm/dL Hct (39.0-53.0) % RDW (11.5-15.5) % Plt Count (150-450) k/uL Neutrophils # (1.3-7.7) k/uL PT 14.5 H (9.0-12.0) sec INR 1.4 H (<1.2) ABG pO2 (83-108) mmHg ABG Hematocrit (34.0-46.0) % Hemoglobin (13.0-17.5) gm/dL Sodium (137-145) mmol/L Carbon Dioxide (22-30) mmol/L BUN (9-20) mg/dL Creatinine (0.66-1.25) mg/dL Glucose (74-99) mg/dL POC Glucose (mg/dL) 144 H (70-110) mg/dL Calcium (8.4-10.2) mg/dL Total Protein (PEP) (6.2-8.2) g/dL Complement C3 (80.0-207.0) mg/dL Assessment and Plan (1) Cellulitis Current Visit: Yes Status: Acute Code(s): L03.90 - CELLULITIS, UNSPECIFIED SNOMED Code(s): 430621837 Plan: 1patient with right foot unstageable pressure ulcer with surrounding necrotic area and cellulitis x-rays do not show any bony changes likely from gram- positive skin caleb and less likely gram-negative pathogen, patient is status post vascular surgery evaluation and debridement and deep cultureWhich has been finalized with strep and MSSA. 2-patient with MSSA bacteremia source is likely right foot infected pressure ulcer, Repeat blood culture has been negative 3Patient did have significant abnormality seen on the CT obtained by surgery with concern for possible fecal impaction and some inflammation of the colon and possible fistula. 4- patient sputum has been finalized with stenotrophomonas sensitive to Fortaz and should be covered with cefepime also showing Lynda albicans the patient did have persistent elevated white count and possible component of oropharyngeal candidiasis, patient seemed to have responded to additional Eraxis with a white count down to 15,000 we will continue with the current treatment and monitor his clinical course closely Time with Patient: Less than 30
[2022-02-13 00:46] LABS: Glucose,Whole Blood 126 mg/dL (70-110)
[2022-02-13] MEDS: INSULIN ASPART (NovoLOG) 100 UNIT/ML VIAL SQ SCH ×4 (01:37→18:42)
[2022-02-13] MEDS: MORPHINE ORAL SOLN 10 MG/5 ML CUP PO SCH ×2 (01:42→12:04)
[2022-02-13] MEDS: metroNIDAZOLE-NS PMX 500 MG in SALINE 1 100ML.BAG IVPB SCH ×3 (01:46→15:48)
[2022-02-13 05:42] LABS: ABG Base Excess -1.7 mmol/L; ABG HCO3 23 mmol/L (21-25); ABG Hematocrit 32 % (34.0-46.0); ABG Oxygen Saturation 93.8 % (94-97); ABG PCO2 36 mmHg (35-45); ABG PH 7.41 (7.35-7.45); ABG PO2 71 mmHg (83-108); ABG TCO2 24 mmol/L (19-24); Allen Test Performed? Yes
[2022-02-13] MEDS: IPRATROPIUM-ALBUTEROL 3 ML NEB INHALATION SCH ×4 (07:11→19:33)
[2022-02-13] MEDS: BUDESONIDE 1 MG/2 ML NEBU INHALATION SCH ×2 (07:11→19:33)
--- NOTE | 2022-02-13 08:12 | P.PN ---
Subjective Progress Note Date: 02/13/22 Principal diagnosis: Persistent atrial fibrillation This is a 61-year-old gentleman who was admitted to the hospital with acute on chronic respiratory failure as well as metabolic encephalopathy and septic shock. We involved in the care of the patient for the management of persistent atrial fibrillation. February [id number] The patient was seen this morning. He remains intubated on mechanical ventilation. He remains hemodynamically unstable and requiring vasopressors was norepinephrine. He has been in and out atrial fibrillation. He is currently on amiodarone. Once he goes to atrial fibrillation the heart rate has been under good control. Metoprolol is on hold at this point in the light off hypotension requiring vasopressors. INR today is 1.3 I'm going to give the patient 4 mg of Coumadin today and recheck the INR tomorrow. He underwent dialysis yesterday and during dialysis he was a slightly tachycardic. February 122021 The patient was seen this morning. He remains intubated on mechanical ventilation. He remains also unstable hemodynamically and requiring small dose of norepinephrine. Coumadin is on hold at this point because the patient p otentially going to undergo a PEG tube and tracheostomy Q placement later on. He has been with A. steven with controlled heart rate on the current dose of amiodarone. Beta donovan is on hold at this point. February 132021 The patient was seen this morning. He remains in respiratory failure. He underwent yesterday a PEG tube placement. He remains in atrial fibrillation overall with controlled heart rate on the current dose of amiodarone. Beta donovan is on hold at this point in the light of low blood pressure required norepinephrine. At this point we'll continue the current medical regimen and follow-up with the patient Objective - Vital Signs Vital signs: Vital Signs Temp 98.3 F 02/13/22 04:15 Pulse 109 H 02/13/22 07:26 Resp 24 02/13/22 04:30 BP 137/64 02/13/22 00:30 Pulse Ox 96 02/13/22 04:30 FiO2 40 02/13/22 07:08 Intake & Output 02/12/22 02/13/22 02/13/22 18:59 06:59 18:59 Intake Total 1435.131 622.244 Output Total 1025 245 Balance 410.131 377.244 Intake: IV 883 530 Anidulafungin 100 mg In 100 Sodium Chloride 0.9% 100 ml @ 84 mls/hr IVPB DAILY [facility] Rx#:[id number] Dextrose 5% in Water 1, 550 500 000 ml @ 50 mls/hr IV . Q23H [facility] with Sodium Bicarb (1 Meq/ml) 150 ml Rx#:[id number] Pressure bags 33 30 metroNIDAZOLE-NS PMX 500 200 mg In Saline 1 100ml.bag @ 100 mls/hr IVPB Q8HR [facility] Rx#:[id number] Intake, IV Titration 278.131 92.244 Amount Norepinephrine 32 mg In 88.031 2.824 Sodium Chloride 0.9% 218 ml @ 0.05 MCG/KG/MIN 3. 246 mls/hr IV .Q24H [facility] Rx#:[id number] propofoL 1,000 mg In 190.1 89.42 Empty Bag 1 bag @ 5 MCG/ KG/MIN 4.08 mls/hr IV . Q24H [facility] Rx#:[id number] Tube Feeding 174 Other 100 Output: Gastric Drainage 650 Urine 375 245 Other: Voiding Method Indwelling Catheter Indwelling Catheter # Bowel Movements 1 ABP, PAP, CO, CI - Last Documented Arterial Blood Pressure 131/51 - Constitutional General appearance: Present: no acute distress - Respiratory Respiratory: bilateral: diminished - Cardiovascular Rhythm: irregularly irregular - Labs CBC & Chem 7: 02/12/22 05:30 02/12/22 05:30 Labs: Abnormal Lab Results - Last 24 Hours (Table) 02/12/22 02/12/22 02/12/22 Range/Units 06:00 06:00 12:03 ABG pO2 (83-108) mmHg ABG O2 Saturation (94-97) % ABG Hematocrit (34.0-46.0) % Hemoglobin (13.0-17.5) gm/dL POC Glucose (mg/dL) 144 H (70-110) mg/dL Total Protein (PEP) 4.4 L (6.2-8.2) g/dL Complement C3 78.0 L (80.0-207.0) mg/dL 02/12/22 02/12/22 02/13/22 Range/Units 18:19 20:00 00:45 ABG pO2 (83-108) mmHg ABG O2 Saturation (94-97) % ABG Hematocrit (34.0-46.0) % Hemoglobin (13.0-17.5) gm/dL POC Glucose (mg/dL) 116 H 140 H 126 H (70-110) mg/dL Total Protein (PEP) (6.2-8.2) g/dL Complement C3 (80.0-207.0) mg/dL 02/13/22 Range/Units 05:40 ABG pO2 71 L (83-108) mmHg ABG O2 Saturation 93.8 L (94-97) % ABG Hematocrit 32 L (34.0-46.0) % Hemoglobin 10.5 L (13.0-17.5) gm/dL POC Glucose (mg/dL) (70-110) mg/dL Total Protein (PEP) (6.2-8.2) g/dL Complement C3 (80.0-207.0) mg/dL Assessment and Plan Assessment: Assessment Acute on chronic respiratory failure Metabolic encephalopathy Septic shock Persistent atrial fibrillation Renal failure Plan Try to wean the patient from norepinephrine Follow-up with the patient
[2022-02-13] MEDS: DEXTROSE 5% IN WATER 1,000 ML with SODIUM BICARB (1 MEQ/ML) 150 ML IV SCH (08:23)
--- NOTE | 2022-02-13 08:36 | P.PN ---
Subjective Progress Note Date: 02/13/22 Principal diagnosis: Respiratory failure. Patient was reevaluated today on 02/06/22, remains in the ICU, intubated and mechanically ventilated. Patient is sedated, his ventilator settings are assist control rate of 24 tidal volume 500 FiO2 45% and PEEP of 5. ABG showed a pO2 of 85 pCO2 37 pH of 7.37 patient had worsening urine output and worsening renal status overnight, received almost 4 L of fluids, continue to have low urine output and this morning he received 80 mg of Lasix IV push. CVP continues to read the low below 7. His endotracheal tube was noted to be sitting high in the trachea and it will be advanced about 3 cm. Patient remains on propofol at 40 mcg/kg/m IV fluids/normal saline at 100 mL per hour norepinephrine at 0.02 mcg/kg/m today I recommended a nephrology consultation and the patient will be undergoing CT of the abdomen for ileus. The CT of the abdomen showed mild to moderate circumferential wall thickening of the cecum and ascending colon pos sible nonspecific infectious or inflammatory colitis. There was also distention of the rectum up to 7.5 cm with solid stool. Patient is developing fecal impaction. There is also the possibility of perianal fistula noted on the CT of the abdomen and pelvis. Blood cultures from 97 and 98 are negative so far. Previous blood cultures from 01/31 hence 02/01 were positive for staph aureus Patient was reevaluated today on 02/07/22, patient remains in the ICU, intubated and mechanically ventilated. Patient is on assist control rate of 24 tidal volume 500 FiO2 45% PEEP of 5 ABG showed a pO2 of 79 pCO2 36 pH of 7.33. Continues to have very low urine output, renal functioning seems to be getting worse, and nephrology as on consultation, today I cut down his IV fluid to 50 mL/h and I gave him a dose of Lasix 80 mg IV push. Again his urine output is extremely marginal. Patient is off norepinephrine today blood pressure seems to be better controlled. He is on propofol at 30 mcg/kg/m IV fluid cut down to 50 mL/h and he is on tube feeding. No changes were made today for his ventilator settings chest x-ray continues to show small bilateral patchy airspace disease, and possibly some component of pleural effusion is noted bilaterally. WBC count is 18.5 hemoglobin 11.6. INR is 2.2 electrolytes are normal bicarb is 18 BUN is 49, and 3.73 creatinine up from yesterday Patient was reevaluated today on , remains in the ICU intubated mechanically ventilated, sedated, his ventilator settings are assist control rate 24 tidal volume 500 FiO2 40% PEEP of 5 ABG showed a pO2 of 95 pCO2 34 pH of 7.28, reflecting a mild metabolic acidosis most likely secondary to his worsening renal failure his creatinine is up to 4.36 today. Patient does respond to diuretics, however I believe the patient is clinically dry, and I'm recommending fluid boluses today, 500 mL of saline intermittently patient has a good urine output, especially after Lasix. Otherwise his urine output is poor. CVP remains low, chest x-ray is showing improvement in his fluid overload, hence I'm recommending fluid boluses to be given today. Patient remains on antibiotics for his MSSA infection he is on cefepime is also on Flagyl. Today I'm recommending that the patient goes off propofol and to be able to get adeq uate mental assessment. He is requiring to small dose of norepinephrine 0.05 mcg/kg/m, and I'm hoping with fluid boluses we could potentially discontinue norepinephrine today. Again chest x-ray is showing slight improvement. And I plan to stop propofol today. Patient was seen by nephrology and considering starting hemodialysis in the next 24 or 48 hours. They are consulting vascular surgery for dialysis catheter placement. WBC count today is 23.6 hemoglobin is 11.1 INR is 3.0 electrolytes are normal except for low bicarb of 14, BUN is 54 creatinine 4.36. Progress note dated 02/09/2022. This is a 61-year-old male who was admitted on January 31, for atrial fibrillation and cellulitis. On February 05, he was intubated for respiratory failure. The patient remains on the ventilator. Currently, she is on the volume assist control, with a rate of 24, tidal volume 500, FiO2 40%, and PEEP of 5. Arterial blood gases show pO2 of 90, pCO2 pH of 7.21. His blood gases are consistent with metabolic acidosis. The patient will be started on a bicarbonate drip, with 3 ampules of sodium bicarbonate and D5W at 50 mL an hour. The patient is also on norepinephrine at 21 mcg/m, and propofol at 40 mcg/kg/m. The patient's getting vital HP at 33 mL an hour, which is goal. The patient remains on Flagyl and cefepime. A hemodialysis catheter will be placed today. White count 26.5, hemoglobin 11.7, hematocrit 40, and platelet count 201,000. PTT is 32.5 with an INR 3.3. Sodium 140, potassium 4.8, chlorides 114, CO2 13, anion gap 13, BUN 60, and creatinine 4.66. Albumin is 2. Sputum sampling from February 05 show stenotrophomonas. Blood cultures from February 01 are positive for staph aureus. Chest x-ray shows a pattern of CHF, cardiomegaly, small to moderate effusions, and pulmonary vascular congestion. Progress note dated 02/10/2022. 61-year-old male admitted on January 31, for atrial fibrillation and cellulitis. On February 05, he was intubated for respiratory failure. He remains on the mechanical ventilator. He is currently on volume assist control, rate 24, tidal volume 500, FiO2 50%, and PEEP of 5. Blood gases show pO2 of 95, pCO2 of 38, pH is 7.29. Blood gases are consistent with metabolic acidosis. The patient remains on norepinephrine at 15 mcg/m, propofol at 25 mcg/kg/m, and D5W with 3 ampules of sodium bicarbonate at 50 mL an hour. The patient had a daily interruption of sedation on February 09, and lasted about an hour and 15 minutes, before agitation forced him to go back on the ventilator. In addition, he had hemodialysis yesterday and what hemodialysis again today. There was no additional fluid removal. Patient remains on vital high protein at 45 mL an hour, which is goal, as well as on Flagyl and cefepime. CBC is currently pe nding. INR 1.4. Sodium 138, potassium 4.3, chlorides 108, CO2 16, anion gap 14, BUN 56, and creatinine 4.44. The chest x-ray and abdominal films are all reviewed. Progress note dated 02/11/2022. 61-year-old male admitted on January 31, for atrial fibrillation and cellulitis. On February 05, the patient was intubated for respiratory failure, and remains on the mechanical ventilator. He's not made any progress, and over the last couple days, have done daily interruption of sedation, and the patient has done poorly. He is currently on volume assist control, rate 24, tidal volume 500, FiO2 50%, and PEEP of 5. Blood gases show a PaO2 of 97, pCO2 40, and pH is 7.33. The patient remains on propofol at 25 mcg/kg/m, norepinephrine at 9 mcg/m, and 3 ampules of sodium bicarbonate and D5W at 50 mL an hour. In addition, the patient is getting tube feeds with vital high protein at 45 mL an hour, which is goal. He had hemodialysis yesterday and 1 L was removed. He'll have hemodialysis again today. We will have surgery see him for a possible tracheostomy and PEG tube placement later this week. I did have a long conversation with his brother, Joe, who is in agreement. White count 21, hemoglobin 10.7, hematocrit 34.3, and platelet count 274,000. Sodium 138, potassium 4.4, chlorides 105, CO2 20, BUN 57, and creatinine 4.19. Calcium is 7. Microbiology showing evidence of stenotrophomonas sputum, and staph aureus in the blood. Chest x-ray shows bilateral pleural effusions and bibasilar atelectasis. Computed tomography scan of the brain shows mild atrophy, and an old left occipital lobe infarct. Computed tomography scan is unchanged. Progress note dated 02/12/2022. 61-year-old male admitted on January 31, for atrial fibrillation and cellulitis. 5 days later on February 05, the patient was intubated for respiratory failure, and remains on the mechanical ventilator. Yesterday, I had a conversation with the patient's brother. The brother did agree to proceed w ith tracheostomy and PEG tube placement. He states that his brother and one everything done at this point, given the fact that he is only 61 years of age. The patient has done poorly on daily interruptions of sedation. He remains on volume assist control, rate 24, tidal volume 500, FiO2 40%, and PEEP of 5. The patient is currently on propofol at 25 mcg/kg/m, and norepinephrine at 0.085 mcg/kg/m. He is also getting saline at 10 mL an hour, and a sodium bicarbonate drip, with 3 ampules of sodium bicarbonate and D5W at 50 mL an hour. The patient is also getting vital high protein at goal. White count 15.9, hemoglobin 9.9, hematocrit 31.1, and platelet count 249,000. PT 14.5. INR 1.4. Blood gases show pO2 of 77, pCO2 39, and pH is 7.38. Sodium 136, potassium 4.4, chlorides 102, CO2 21, BUN 57, and creatinine 4.33. Microbiologic sampling has been positive for stenotrophomonas in the sputum, and staph aureus in the bloodstream. The patient is currently on cefepime, Flagyl, and Eraxis. The infectious disease physician is following this patient. Chest x-ray is largely unchanged and shows bilateral pleural effusions and bibasilar atelectasis. Progress note dated 02/13/2022. 61-year-old male, admitted on January 31 for atrial fibrillation and cellulitis. The patient was intubated on February 05, her respiratory failure. The patient remains on mechanical ventilator. The patient had a PEG tube placed on February 12. Apparently, to have a tracheostomy tube placed on February 13. I did speak to the patient's brother, and confirmed that the patient would want both PEG tube and tracheostomy performed. Currently, he's on the volume assist control, rate 24, tidal volume 500, FiO2 40%, of 5. Blood gases show pO2 71, pCO2 of 36, and a pH is 7.41. The patient's on herbal follow 25 mcg/kg/m, norepinephrine at 0.095 mcg/kg/m, a sodium bicarbonate drip, with 3 ampules of sodium bicarbonate and D5W at 50 mL an hour, and saline at 20 mL an hour. Tube feedings are currently on hold. Laboratory data from today is currently pending. Chest x-ray is also pending. Objective - Vital Signs Vital signs: Vital Signs Temp 98.3 F 02/13/22 04:15 Pulse 100 02/13/22 08:15 Resp 24 02/13/22 08:15 BP 133/64 02/13/22 08:15 Pulse Ox 95 02/13/22 08:15 FiO2 40 02/13/22 07:08 Intake & Output 02/12/22 02/13/22 02/13/22 18:59 06:59 18:59 Intake Total 1435.131 728.244 53 Output Total 1025 300 25 Balance 410.131 428.244 28 Weight 150 kg Intake: IV 883 636 53 Anidulafungin 100 mg In 100 Sodium Chloride 0.9% 100 ml @ 84 mls/hr IVPB DAILY [facility] Rx#:[id number] Dextrose 5% in Water 1, 550 600 50 000 ml @ 50 mls/hr IV . Q23H [facility] with Sodium Bicarb (1 Meq/ml) 150 ml Rx#:[id number] Pressure bags 33 36 3 metroNIDAZOLE-NS PMX 500 200 mg In Saline 1 100ml.bag @ 100 mls/hr IVPB Q8HR [facility] Rx#:[id number] Intake, IV Titration 278.131 92.244 Amount Norepinephrine 32 mg In 88.031 2.824 Sodium Chloride 0.9% 218 ml @ 0.05 MCG/KG/MIN 3. 246 mls/hr IV .Q24H [facility] Rx#:[id number] propofoL 1,000 mg In 190.1 89.42 Empty Bag 1 bag @ 5 MCG/ KG/MIN 4.08 mls/hr IV . Q24H [facility] Rx#:[id number] Tube Feeding 174 Other 100 Output: Gastric Drainage 650 Urine 375 300 25 Other: Voiding Method Indwelling Catheter Indwelling Catheter # Bowel Movements 1 ABP, PAP, CO, CI - Last Documented Arterial Blood Pressure 118/47 - Exam No acute distress, sedated, with an orally placed endotracheal tube. He now has a orally placed NG tube. HEENT examination is grossly unremarkable. Neck supple. Full range of motion. No adenopathy thyromegaly or neck vein distention. Cardiovascular examination reveals an irregular rhythm. S1-S2 normal. No S3 or S4. No discernible murmur noted. Heart rate 100 bpm. Lungs reveal bibasilar crackles. Bilateral rhonchi are noted. No wheezes. Breath sounds are equal bilaterally. Saturations are 95 %. Abdomen obese, bowel sounds. No masses. A PEG tube is now noted. Extremities are intact. No cyanosis clubbing or edema. Skin reveals a large around the lateral malleolus of the right foot with gangrenous changes. Neurologic examination cannot be properly assessed as the patient's currently sedated. - Labs CBC & Chem 7: 02/12/22 05:30 02/12/22 05:30 Labs: Abnormal Lab Results - Last 24 Hours (Table) 02/12/22 02/12/22 02/12/22 Range/Units 06:00 06:00 12:03 ABG pO2 (83-108) mmHg ABG O2 Saturation (94-97) % ABG Hematocrit (34.0-46.0) % Hemoglobin (13.0-17.5) gm/dL POC Glucose (mg/dL) 144 H (70-110) mg/dL Total Protein (PEP) 4.4 L (6.2-8.2) g/dL Complement C3 78.0 L (80.0-207.0) mg/dL 02/12/22 02/12/22 02/13/22 Range/Units 18:19 20:00 00:45 ABG pO2 (83-108) mmHg ABG O2 Saturation (94-97) % ABG Hematocrit (34.0-46.0) % Hemoglobin (13.0-17.5) gm/dL POC Glucose (mg/dL) 116 H 140 H 126 H (70-110) mg/dL Total Protein (PEP) (6.2-8.2) g/dL Complement C3 (80.0-207.0) mg/dL 02/13/22 Range/Units 05:40 ABG pO2 71 L (83-108) mmHg ABG O2 Saturation 93.8 L (94-97) % ABG Hematocrit 32 L (34.0-46.0) % Hemoglobin 10.5 L (13.0-17.5) gm/dL POC Glucose (mg/dL) (70-110) mg/dL Total Protein (PEP) (6.2-8.2) g/dL Complement C3 (80.0-207.0) mg/dL Assessment and Plan Assessment: Acute hypercapnic respiratory failure, status post intubation and mechanical ventilation on 02/05/2022. Status post PEG tube placement 02/12/2022. Stenotrophomonas tracheobronchitis/bronchopneumonia. Methicillin sensitive staph. aureus bacteremia. Acute metabolic encephalopathy. Right sided rib fractures, traumatic, secondary to a fall. Right-sided pulmonary contusion. Anterior wedge compression fracture, L1. Hemoptysis, secondary to pulmonary contusion. COPD from chronic tobacco use. Coumadin toxicity. Chronic atrial fibrillation. Chronic kidney disease, stage III. Stage II right ankle wound, status post debridement. Diabetic peripheral neuropathy. History of kidney stones. Nonspecific colitis. Plan: Plan dated 02/09/2022. We will continue ventilatory support. The patient will have a daily interruption of sedation. The patient remains on Flagyl and cefepime. Culture data is reviewed. Continue GI and DVT prophylaxis. Prognosis is guarded. Labs, x-rays, and medications are all reviewed. We will continue to follow make recommendations along the way. The patient continues on amiodarone. Plan dated 02/10/2022. The patient will have another daily interruption of sedation. Yesterday, he did, and was only off sedation for about an hour and 15 minutes. The patient may not be ready yet. The patient did have hemodialysis yesterday, and will hav e an again today. Blood gases are consistent with metabolic acidosis. Chest x- ray, labs, and medications are reviewed. The patient remains on norepinephrine at 15 mcg/m. The patient remains on propofol at 25 mcg/kg/m. The patient also remains on Flagyl and cefepime. Prognosis is certainly guarded. We will continue to follow and make recommendations along the way. Plan dated 02/11/2022. Over the last couple of days, the patient has done poorly with his daily interruption of sedation. He is obviously not moving towards weaning and extubation. I had a conversation with his brother Joe today, and we did agree on proceeding with a tracheostomy and PEG one of the surgeons will be consulted. Labs, x-rays, and medications are reviewed. The patient will get hemodialysis again today. The patient remains on propofol and norepinephrine, as well as a bicarbonate drip. Nephrology is following. He is receiving tube feedings at goal. The patient's overall prognosis is very guarded. Plan dated 02/12/2022. We will proceed with tracheostomy and PEG tube, as these apparently are the wishes of the patient, and the wishes of the patient's brother, Joe. The patient has done very poorly with his daily interruption of sedation. Nephrology is following the patient has been doing daily hemodialysis. The patient remains on propofol, and norepinephrine. The patient is also on a s odium bicarbonate drip. He is receiving tube feedings at goal. Labs, x-rays, and medications are reviewed. Overall prognosis remains very guarded. Surgery has been consulted for the tracheostomy and PEG tube placement Plan dated 02/13/2022. The patient is supposed to have a tracheostomy tube placed today. He had a PEG tube placed yesterday, February 12. Labs, x-rays, medications are reviewed. I did speak to the brother, Joe, about the patient's desire to have everything done at this point. The patient is undergoing hemodialysis as per nephrology. He remains on a sodium bicarbonate drip. Labs, x-rays, and medications are all reviewed. Prognosis is guarded. He remains on Flagyl, cefepime, and Eraxis. Time with Patient: Greater than 30
[2022-02-13] MEDS: NICOTINE 21MG/24HR PATCH TRANSDERM SCH (09:03)
[2022-02-13] MEDS: CEFEPIME 1 GM in SODIUM CHLORIDE 0.9% 50 ML IVPB SCH ×2 (09:03→22:36)
[2022-02-13] MEDS: CALCIUM ACETATE 667 MG TAB PO SCH ×2 (09:04→17:03)
[2022-02-13] MEDS: PANTOPRAZOLE 40 MG/10 ML VIAL IVP SCH ×2 (09:04→20:40)
[2022-02-13] MEDS: CHLORHEXIDINE GLUCONATE 15 ML CUP MUCOUS MEM SCH ×2 (09:04→20:42)
[2022-02-13] MEDS: PREGABALIN 100 MG CAP PO SCH ×2 (09:04→20:41)
[2022-02-13] MEDS: AMIODARONE 200 MG TAB PO SCH ×2 (09:04→20:41)
[2022-02-13] MEDS: METOPROLOL TARTRATE 25 MG TAB PO SCH ×2 (09:04→20:41)
[2022-02-13] MEDS: bisacodyL 10 MG SUPP RECTAL SCH (09:04)
[2022-02-13] MEDS: SODIUM BICARBONATE TAB 650 MG TAB PO SCH ×4 (09:04→22:34)
[2022-02-13] MEDS: TAMSULOSIN 0.4 MG CAP.ER.24H PO SCH (09:05)
[2022-02-13] MEDS: guaiFENesin 600 MG TABLET.ER PO SCH ×4 (09:06→22:36)
[2022-02-13] MEDS: COLLAGENASE 250 UNIT/GM OINTMENT 30 GM TUBE TOPICAL SCH (09:06)
[2022-02-13 09:14] LABS: Calcium 7.2 mg/dL (8.4-10.2); Magnesium 1.8 mg/dL (1.6-2.3); Potassium 4.7 mmol/L (3.5-5.1)
[2022-02-13] MEDS: FUROSEMIDE 40 MG TAB PO SCH (09:30)
[2022-02-13] MEDS: levETIRAcetam IV 500 MG in SODIUM CHLORIDE 0.9% 100 ML IVPB SCH (09:30)
--- NOTE | 2022-02-13 09:50 | P.PN ---
Subjective Patient is seen in follow-up for acute kidney injury. Started on hemodialysis 02/09/2022. Intubated. On Levophed. Receiving tube feeds. Also on bicarb drip. Acidosis improved. Urine output about 20-30 mL/hr the last few hours. Tracheostomy today. Vital signs are stable. On Levophed. General: Resting in bed. HEENT: Intubated. LUNGS: Breath sounds decreased. HEART: Rate and Rhythm are regular. ABDOMEN: Soft, no distention. EXTREMITITES: 1+ edema. Objective - Vital Signs Vital signs: Vital Signs Temp 98.3 F 02/13/22 04:15 Pulse 100 02/13/22 08:15 Resp 24 02/13/22 08:15 BP 133/64 02/13/22 08:15 Pulse Ox 95 02/13/22 08:15 FiO2 40 02/13/22 07:08 Intake & Output 02/12/22 02/13/22 02/13/22 18:59 06:59 18:59 Intake Total 1435.131 728.244 136.747 Output Total 1025 300 25 Balance 410.131 428.244 111.747 Weight 150 kg Intake: IV 883 636 53 Anidulafungin 100 mg In 100 Sodium Chloride 0.9% 100 ml @ 84 mls/hr IVPB DAILY [facility] Rx#:[id number] Dextrose 5% in Water 1, 550 600 50 000 ml @ 50 mls/hr IV . Q23H [facility] with Sodium Bicarb (1 Meq/ml) 150 ml Rx#:[id number] Pressure bags 33 36 3 metroNIDAZOLE-NS PMX 500 200 mg In Saline 1 100ml.bag @ 100 mls/hr IVPB Q8HR [facility] Rx#:[id number] Intake, IV Titration 278.131 92.244 83.747 Amount Norepinephrine 32 mg In 88.031 2.824 83.747 Sodium Chloride 0.9% 218 ml @ 0.05 MCG/KG/MIN 3. 246 mls/hr IV .Q24H [facility] Rx#:[id number] propofoL 1,000 mg In 190.1 89.42 Empty Bag 1 bag @ 5 MCG/ KG/MIN 4.08 mls/hr IV . Q24H [facility] Rx#:[id number] Tube Feeding 174 Other 100 Output: Gastric Drainage 650 Urine 375 300 25 Other: Voiding Method Indwelling Catheter Indwelling Catheter # Bowel Movements 1 ABP, PAP, CO, CI - Last Documented Arterial Blood Pressure 118/47 - Labs CBC & Chem 7: 02/12/22 05:30 02/13/22 08:54 Labs: Abnormal Lab Results - Last 24 Hours (Table) 02/12/22 02/12/22 02/12/22 Range/Units 12:03 18:19 20:00 ABG pO2 (83-108) mmHg ABG O2 Saturation (94-97) % ABG Hematocrit (34.0-46.0) % Hemoglobin (13.0-17.5) gm/dL Sodium (137-145) mmol/L BUN (9-20) mg/dL Creatinine (0.66-1.25) mg/dL POC Glucose (mg/dL) 144 H 116 H 140 H (70-110) mg/dL Calcium (8.4-10.2) mg/dL 02/13/22 02/13/22 02/13/22 Range/Units 00:45 05:40 08:54 ABG pO2 71 L (83-108) mmHg ABG O2 Saturation 93.8 L (94-97) % ABG Hematocrit 32 L (34.0-46.0) % Hemoglobin 10.5 L (13.0-17.5) gm/dL Sodium 135 L (137-145) mmol/L BUN 66 H (9-20) mg/dL Creatinine 4.53 H (0.66-1.25) mg/dL POC Glucose (mg/dL) 126 H (70-110) mg/dL Calcium 7.2 L (8.4-10.2) mg/dL Assessment and Plan Plan: Assessment: 1. Acute kidney injury secondary to ATN secondary to septic shock. Started on hemodialysis 02/09/2022. Urine output stable at 20-30 mL an hour. Creatinine in April 2019 was 0.8. Creatinine was as low as 1.62 this admission. No hydronephrosis noted on CAT scan. 2. MSSA bacteremia with likely source being right foot ulcer. ID following. On antibiotics. 3. A. fib. Cardiology following. 4. Metabolic acidosis secondary to acute kidney injury. On bicarb drip. Better. 5. Diabetes mellitus. 6. Hyperphosphatemia secondary to acute kidney injury. On PhosLo. 7. Volume overload. Improved with ultrafiltration. Plan: Hemodialysis today and again tomorrow. Add Demadex 40 mg once daily. Hep-Lock IV fluids. Maintain tube feeds. Wean FiO2 and vasopressors. Continue to monitor for renal recovery. Follow-up serologies. C3 slightly low. Tracheostomy today.
[2022-02-13] MEDS: ANIDULAFUNGIN 100 MG in SODIUM CHLORIDE 0.9% 100 ML IVPB SCH (10:15)
[2022-02-13 12:17] LABS: Glucose,Whole Blood 104 mg/dL (70-110)
--- NOTE | 2022-02-13 12:42 | P.PN ---
Subjective Progress Note Date: 02/13/22 CHIEF COMPLAINT: Upper GI bleeding HISTORY OF PRESENT ILLNESS: Patient is intubated and on mechanical ventilation on in the ICU. Patient is status post PEG tube placement. Patient also disimpacted at the time of PEG tube placement. Patient receiving hemodialysis today. Patient admitted to the hospital with atrial fibrillation and cellulitis of lower extremity. Patient to have a low-grade temp of 100.7. Tachycardic. Patient seen and examined with Dr. tran PHYSICAL EXAM: VITAL SIGNS: Reviewed. ABDOMEN: Soft. Nondistended. PEG tube site clean dry and intact NEUROLOGIC: ASSESSMENT: 1. Ileus 2. Upper GI bleed resolved 3. Fecal impaction 4. Altered mental status 5. Leukocytosis 6. Respiratory failure requiring mechanical ventilation and revealed weaned from vent 7. Severe protein calorie nutrition status post PEG tube placement PLAN: -Possible tracheostomy placement either today or on Wednesday depending on OR scheduling -Tube feedings can be started at 4:00 this afternoon if patient doesn't have tracheostomy placement later today -Continue ICU management -Continue supportive care -Continue to monitor -Continue to hold Coumadin Physician Rn Labor And Delivery note has been reviewed by physician. Signing provider agrees with the documented findings, assessment, and plan of care. Objective - Vital Signs Vital signs: Vital Signs Temp 99.3 F 02/13/22 12:00 Pulse 116 H 02/13/22 12:15 Resp 17 02/13/22 12:15 BP 103/56 02/13/22 12:15 Pulse Ox 92 L 02/13/22 12:15 FiO2 40 02/13/22 12:00 Intake & Output 02/12/22 02/13/22 02/13/22 18:59 06:59 18:59 Intake Total 1435.131 728.244 788.843 Output Total 1025 300 350 Balance 410.131 428.244 438.843 Weight 150 kg 150 kg Intake: IV 883 636 518 Anidulafungin 100 mg In 100 100 Sodium Chloride 0.9% 100 ml @ 84 mls/hr IVPB DAILY [facility] Rx#:[id number] Dextrose 5% in Water 1, 550 600 300 000 ml @ 50 mls/hr IV . Q23H [facility] with Sodium Bicarb (1 Meq/ml) 150 ml Rx#:[id number] Pressure bags 33 36 18 metroNIDAZOLE-NS PMX 500 200 100 mg In Saline 1 100ml.bag @ 100 mls/hr IVPB Q8HR [facility] Rx#:[id number] Intake, IV Titration 278.131 92.244 270.843 Amount Norepinephrine 32 mg In 88.031 2.824 91.663 Sodium Chloride 0.9% 218 ml @ 0.05 MCG/KG/MIN 3. 246 mls/hr IV .Q24H [facility] Rx#:[id number] propofoL 1,000 mg In 190.1 89.42 179.18 Empty Bag 1 bag @ 5 MCG/ KG/MIN 4.08 mls/hr IV . Q24H [facility] Rx#:[id number] Tube Feeding 174 Other 100 Output: Gastric Drainage 650 Urine 375 300 350 Other: Voiding Method Indwelling Catheter Indwelling Catheter Indwelling Catheter # Bowel Movements 1 ABP, PAP, CO, CI - Last Documented Arterial Blood Pressure 94/46 - Labs CBC & Chem 7: 02/12/22 05:30 02/13/22 08:54 Labs: Abnormal Lab Results - Last 24 Hours (Table) 02/12/22 02/12/22 02/13/22 Range/Units 18:19 20:00 00:45 ABG pO2 (83-108) mmHg ABG O2 Saturation (94-97) % ABG Hematocrit (34.0-46.0) % Hemoglobin (13.0-17.5) gm/dL Sodium (137-145) mmol/L BUN (9-20) mg/dL Creatinine (0.66-1.25) mg/dL POC Glucose (mg/dL) 116 H 140 H 126 H (70-110) mg/dL Calcium (8.4-10.2) mg/dL 02/13/22 02/13/22 Range/Units 05:40 08:54 ABG pO2 71 L (83-108) mmHg ABG O2 Saturation 93.8 L (94-97) % ABG Hematocrit 32 L (34.0-46.0) % Hemoglobin 10.5 L (13.0-17.5) gm/dL Sodium 135 L (137-145) mmol/L BUN 66 H (9-20) mg/dL Creatinine 4.53 H (0.66-1.25) mg/dL POC Glucose (mg/dL) (70-110) mg/dL Calcium 7.2 L (8.4-10.2) mg/dL
[2022-02-13 14:00] LABS: C-ANCA <1:20 Titer (<1:20)
--- NOTE | 2022-02-13 14:46 | P.PN ---
Subjective Progress Note Date: 02/13/22 Principal diagnosis: Right foot infected pressure ulcer and bacteremia Patient is a 61-year-old male presented to the hospital for evaluation of fall patient also noticed to have a wound on the right lateral foot with some necrotic edges which has been debridement by vascular surgery on 01/31/2022.Patient has been transthoracic because of significant mental status changes, The patient ended up getting intubated, the patient also have worsening of the kidney function requiring dialysis catheter placement and has been started on dialysis as of 02/09/2022, the patient did have a PEG tube placement on 02/12/2022 On today's evaluation that is 02/13/2022, The patient did have a low-grade fever 100.7 this morning, the patient FiO2 is stable at 40 %, no significant purulent secretion through the ET diarrhea or any changes reported by the nursing staff, patient did require low-dose pressor support during dialysis Objective - Vital Signs Vital signs: Vital Signs Temp 100.7 F H 02/13/22 08:30 Pulse 104 H 02/13/22 11:45 Resp 24 02/13/22 11:45 BP 133/64 02/13/22 10:00 Pulse Ox 93 L 02/13/22 11:45 FiO2 40 02/13/22 10:53 Intake & Output 02/12/22 02/13/22 02/13/22 18:59 06:59 18:59 Intake Total 1435.131 728.244 682.843 Output Total 1025 300 250 Balance 410.131 428.244 432.843 Weight 150 kg 150 kg Intake: IV 883 636 412 Anidulafungin 100 mg In 100 100 Sodium Chloride 0.9% 100 ml @ 84 mls/hr IVPB DAILY [facility] Rx#:[id number] Dextrose 5% in Water 1, 550 600 200 000 ml @ 50 mls/hr IV . Q23H [facility] with Sodium Bicarb (1 Meq/ml) 150 ml Rx#:[id number] Pressure bags 33 36 12 metroNIDAZOLE-NS PMX 500 200 100 mg In Saline 1 100ml.bag @ 100 mls/hr IVPB Q8HR [facility] Rx#:[id number] Intake, IV Titration 278.131 92.244 270.843 Amount Norepinephrine 32 mg In 88.031 2.824 91.663 Sodium Chloride 0.9% 218 ml @ 0.05 MCG/KG/MIN 3. 246 mls/hr IV .Q24H [facility] Rx#:[id number] propofoL 1,000 mg In 190.1 89.42 179.18 Empty Bag 1 bag @ 5 MCG/ KG/MIN 4.08 mls/hr IV . Q24H [facility] Rx#:[id number] Tube Feeding 174 Other 100 Output: Gastric Drainage 650 Urine 375 300 250 Other: Voiding Method Indwelling Catheter Indwelling Catheter # Bowel Movements 1 ABP, PAP, CO, CI - Last Documented Arterial Blood Pressure 123/56 - Exam GENERAL DESCRIPTION: Middle-aged male intubated on the vent. LUNGS: Unlabored breathing. Decreased breath sound at the base HEART: S1, S2, regular rate and rhythm. No loud murmur ABDOMEN: Soft, no tenderness , guarding or rigidity, no organomegaly EXTREMITIES: Right foot wound is currently dressed no drainage on the dressing - Labs CBC & Chem 7: 02/12/22 05:30 02/13/22 08:54 Labs: Abnormal Lab Results - Last 24 Hours (Table) 02/12/22 02/12/22 02/13/22 Range/Units 18:19 20:00 00:45 ABG pO2 (83-108) mmHg ABG O2 Saturation (94-97) % ABG Hematocrit (34.0-46.0) % Hemoglobin (13.0-17.5) gm/dL Sodium (137-145) mmol/L BUN (9-20) mg/dL Creatinine (0.66-1.25) mg/dL POC Glucose (mg/dL) 116 H 140 H 126 H (70-110) mg/dL Calcium (8.4-10.2) mg/dL 02/13/22 02/13/22 Range/Units 05:40 08:54 ABG pO2 71 L (83-108) mmHg ABG O2 Saturation 93.8 L (94-97) % ABG Hematocrit 32 L (34.0-46.0) % Hemoglobin 10.5 L (13.0-17.5) gm/dL Sodium 135 L (137-145) mmol/L BUN 66 H (9-20) mg/dL Creatinine 4.53 H (0.66-1.25) mg/dL POC Glucose (mg/dL) (70-110) mg/dL Calcium 7.2 L (8.4-10.2) mg/dL Assessment and Plan (1) Cellulitis Current Visit: Yes Status: Acute Code(s): L03.90 - CELLULITIS, UNSPECIFIED SNOMED Code(s): 351735717 Plan: 1patient with right foot unstageable pressure ulcer with surrounding necrotic area and cellulitis x-rays do not show any bony changes likely from gram- positive skin caleb and less likely gram-negative pathogen, patient is status post vascular surgery evaluation and debridement and deep cultureWhich has been finalized with strep and MSSA. 2-patient with MSSA bacteremia source is likely right foot infected pressure ulcer, Repeat blood culture has been negative 3Patient did have significant abnormality seen on the CT obtained by surgery with concern for possible fecal impaction and some inflammation of the colon and possible fistula. 4- patient sputum has been finalized with stenotrophomonas sensitive to Fortaz and should be covered with cefepime also showing Lynda albicans the patient did have persistent elevated white count and possible component of oropharyngeal candidiasis, patient has clinically responded to additional Eraxis with a white count down to 15,000as of yesterday no WBC was done today, we will repeat his CBC and blood culture with a.m. lab Time with Patient: Less than 30
[2022-02-13 18:43] LABS: Glucose,Whole Blood 104 mg/dL (70-110)
[2022-02-13 20:46] LABS: Glucose,Whole Blood 95 mg/dL (70-110)
--- NOTE | 2022-02-13 21:06 | P.PN ---
Progress Note - Text Progress Note Date: 02/13/22 This is a 61-year-old patient who follows with Dr. Sridhar Chan. Chronic stable medical conditions include diabetes, hypertension, hyperlipidemia, chronic low back problems, cigarette smoker. At the baseline uses a walker. Patient slipped in the bathroom falling on his buttock. Was not able to get up. By the EMS report he had fallen 24 hours prior to the picking him up. Patient been complaining of pain in the right rib cage in the lower back. X-ray was negative for fracture. Patient continued to have significant pain especially with deep breathing. Patient also had a congestive cough and wheezing. Some bloody sputum. Denies any fever and chills. Patient also complaining of urina ry retention and requesting a Shepard catheter. at the bedside. No fever no chills. Orthopedics consulted for the same. Patient normally has a bowel movement once a week. Patient also has a wound on the right foot lateral part of the ankles for about a week. Ischemic changes. From rubbing against a bedpost. Patient's INR in the ER was greater than 10. Was given vitamin K. 10 mg Patient bit with Coumadin toxicity, given vitamin K, acute COPD exacerbation, uncontrolled atrial flutter put on Lopressor, right chest wall pain. Computed tomography scan lumbar spine and chest was ordered. Large wound on the right lateral malleolus-ID and vascular consulted.. IV cefepime. February 01: Patient yesterday to see refused his computed tomography scan of the chest and lumbar spine. Done today. Right-sided rib fractures, pulmonary contusion confirm. L1 vertebral body 30% wedge compression fracture. Patient's girlfriend the bedside. It was discussed in detail with her. Patient wanting again and again to pull out his NG tube. Requests the to stay with the patient. Patient is also had the dark aspirate from the stomach for which she has NG tube. Surgery was consulted for the same. Also this morning right foot wound was debrided by Dr. Ibarra from vascular. Wound base was relatively clean. No undermining or tunneling. February 02: Delirious. NG tube to suction. Has been in restraints because point NG TUBE several times. Mumbling to himself. Dressing over the right ankle. Not in distress. Ileus. Chest x-ray showing right lower lobe/atelectasis. February 03: Hospital computer system was down. Patient remains delirious. Nasal cannula. Lethargic. Family the bedside. Antibiotics. A. fib uncontrolled. EEG evidence of metabolic encephalopathy. No clear-cut epileptiform activity. Started on Keppra by neurology. February 04: ICU: Girlfriend at the bedside. In atrial fibrillation uncontrolled. On IV Cardizem and IV amiodarone. NG tube to suction. Patient lethargic. Multiple breathing. 2 L. Oxygen. February 05: ICU. Atrial fibrillation better controlled this morning. Cardizem discontinued. Patient respiratory status worsened this morning and patient is intubated. FiO2 45 and a PEEP of 5. Atrial fibrillation, controlled. Drips include amiodarone, propofol, levo fed. Discussed with girlfriend the bedside. Understands prognosis guarded. February 06: ICU: Ventilated. FiO2 45 and a PEEP of 5. NG tube is clamped. On IV propofol. Sedated. Heart rate better controlled. Was started on Coumadin yesterday. Worsening renal function. Nephrology consulted. 02/07/2022 Patient is currently in the MICU and on mechanical ventilator. Tidal volume of 400, FiO2 40% and PEEP of 5. Patient is off pressor support today. Currently on propofol and is also on tube feeding. Chest x-ray showed stable exam with stable support lines and tubes. Correlate for congestive heart failure. Patient was given a dose of IV Lasix. Laboratory data showed WBC 18.4 hemoglobin 11.6 and platelets 458 Sodium 141 potassium 3.7 chloride 103 bicarb is 18 BUN 49 and creatinine 3.73 and calcium 7.3. INR is 2.2. Patient is being followed by nephrology cardiology and critical care team. 02/08/2022 Patient is currently on mechanical ventilator and sedated with propofol. Assist control with FiO2 40% and tidal volume of 400 and PEEP of 5. Patient is being continued on antibiotics above cefepime and Flagyl. Sputum gram stain gram-negative bacilli and Lynda. Chest x-ray today showed findings suggestive of slightly worsening CHF exacerbation as there is cardiomegaly with mild to moderate central venous congestion and small to moderate-sized bilateral pleural effusion. Laboratory test showed WBC increased to 23.6 hemoglobin 9.1 and platelets 162 INR 3.0 Sodium 139 potassium 4.3 chloride 113 bicarb is 40 BUN 54 and creatinine worsening to 4.36 February 09: I resumed the care of patient today ICU: Med: 40/5. Received vitamin K 5 mg IV to bring the INR down for dialysis catheter. Drips include bicarbonate, propofol, epinephrine. Patient is a stage II coccyx is ulcer. Plan is to change the NG tube to on G-tube today. For possible colitis/fistula on antibiotics. at the bedside. February 10: ICU. Ventilator 50/5. Hemodialysis catheter placed last night. Hemodialyzed yesterday and getting dialyzed today. Remains in atrial fibrillation heart rate uncontrolled. Getting up sedation holiday. Drips include bicarbonate and norepinephrine. Propofol currently held. 2 feeding at 46 mL an hour. Does open eyes. February 11: ICU. Ventilator. 50/5. Third day for hemodialysis. 1.5 L to be removed today. Back on propofol. Drips include bicarbonate, norepinephrine, propofol. On G-tube feeding. Patient back in sinus rhythm. Bag and tracheostomy to planning for next week. 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 IV antifungal started by ID. February 12: ICU: Ventilator: 40/5. Telemetry shows sinus rhythm. Drips include propofol and norepinephrine. On G-tube feeding. Discussed with the at the bedside. Understands prognosis guarded. IV antibiotics and antifungals. February 13: ICU: Ventilator: 40/5. PEG tube placed yesterday by Dr. Cornejo. Drips include bicarbonate, propofol, norepinephrine. Getting hemodialysis done today. Active Medications Acetaminophen (Acetaminophen Tab 325 Mg Tab) 650 mg PO Q6HR PRN PRN Reason: Mild Pain or Fever > 100.5 Albuterol/Ipratropium (Ipratropium-Albuterol 3 Ml Neb) 3 ml INHALATION RT-QID [facility] Last Admin: 02/13/22 19:33 Dose: 3 ml Amiodarone HCl (Amiodarone 200 Mg Tab) 200 mg PO BID [facility] Last Admin: 02/13/22 20:41 Dose: 200 mg Artificial Tears (Artificial Tears-Hypromellose Drops 15 Ml Btl) 2 drops BOTH EYES TID PRN PRN Reason: Dry Eye(s) Bisacodyl (Bisacodyl 10 Mg Supp) 10 mg RECTAL DAILY [facility] Last Admin: 02/13/22 09:04 Dose: 10 mg Budesonide (Budesonide 1 Mg/2 Ml Nebu) 1 mg INHALATION RT-BID [facility] Last Admin: 02/13/22 19:33 Dose: 1 mg Calcium Acetate (Calcium Acetate 667 Mg Tab) 667 mg PO BID-W/MEALS [facility] Last Admin: 02/13/22 17:03 Dose: 667 mg Calcium Carbonate/Glycine (Calcium Carbonate 500 Mg Chewable) 1,000 mg PO Q4HR PRN PRN Reason: Dyspepsia Last Admin: 01/31/22 14:29 Dose: 1,000 mg Chlorhexidine Gluconate (Chlorhexidine Gluconate 15 Ml Cup) 15 ml MUCOUS MEM BID [facility] Last Admin: 02/13/22 20:42 Dose: 15 ml Collagenase (Collagenase 250 Unit/Gm Ointment 30 Gm Tube) 1 applic TOPICAL DAILY [facility]; Protocol Last Admin: 02/13/22 09:06 Dose: 1 applic Dextrose/Water (Dextrose 50% Syringe 50 Ml) 25 ml IVP PER PROTOCOL PRN; Protocol PRN Reason: Hypoglycemia Last Admin: 02/06/22 18:11 Dose: 25 ml Dextrose/Water (Dextrose 50% Syringe 50 Ml) 50 ml IVP PER PROTOCOL PRN; Protocol PRN Reason: Hypoglycemia Furosemide (Furosemide 40 Mg Tab) 40 mg PO DAILY [facility] Last Admin: 02/13/22 09:30 Dose: 40 mg Guaifenesin (Guaifenesin 600 Mg Tablet.Er) 600 mg PO QID [facility] Last Admin: 02/13/22 17:03 Dose: 600 mg Hydromorphone HCl (Hydromorphone 0.5 Mg/0.5 Ml Syringe) 0.5 mg IVP Q3HR PRN PRN Reason: Pain Last Admin: 02/03/22 03:43 Dose: 0.5 mg Propofol 1,000 mg/ IV Solution 100 mls @ 4.08 mls/hr IV .Q24H [facility]; Protocol Last Admin: 02/13/22 20:39 Dose: 25 mcg/kg/min, 20.4 mls/hr Metronidazole 500 mg/ IV (Solution) 100 mls @ 100 mls/hr IVPB Q8HR [facility]; Protocol Last Admin: 02/13/22 15:48 Dose: 100 mls/hr Cefepime HCl 1 gm/ Sodium (Chloride) 50 mls @ 12.5 mls/hr IVPB Q12HR [facility] Last Admin: 02/13/22 09:03 Dose: 12.5 mls/hr Norepinephrine Bitartrate 32 (mg/ Sodium Chloride) 250 mls @ 3.246 mls/hr IV .Q24H [facility]; Protocol Last Titration: 02/13/22 17:29 Dose: 0.11 mcg/kg/min, 7.141 mls/hr Levetiracetam 500 mg/ Sodium (Chloride) 105 mls @ 400 mls/hr IVPB DAILY [facility] Last Admin: 02/13/22 09:30 Dose: 400 mls/hr Anidulafungin 100 mg/ Sodium (Chloride) 100 mls @ 84 mls/hr IVPB DAILY [facility]; Protocol Last Admin: 02/13/22 10:15 Dose: 84 mls/hr Insulin Aspart (Insulin Aspart (Novolog) 100 Unit/Ml Vial) 0 unit SQ Q6HR [facility]; Protocol Last Admin: 02/13/22 18:42 Dose: Not Given Insulin Detemir (Insulin Detemir (Levemir) 100 Unit/Ml Syr) 14 unit SQ HS [facility] Last Admin: 02/12/22 20:06 Dose: 14 unit Lactulose (Lactulose 20 Gm/30 Ml Cup) 20 gm PO DAILY PRN PRN Reason: Constipation Last Admin: 02/11/22 15:45 Dose: 20 gm Melatonin (Melatonin 3 Mg Tablet) 3 mg PO HS PRN PRN Reason: Insomnia Metoprolol Tartrate (Metoprolol Tartrate 25 Mg Tab) 25 mg PO BID [facility] Last Admin: 02/13/22 20:41 Dose: 25 mg Miscellaneous Information (Potassium Replacement Protocol 1 Each Misc) 1 each MISCELLANE DAILY PRN; Protocol PRN Reason: Per Protocol Miscellaneous Information (Magnesium Replacement Protocol 1 Each Misc) 1 each MISCELLANE DAILY PRN; Protocol PRN Reason: Per Protocol Morphine Sulfate (Morphine Oral Soln 10 Mg/5 Ml Cup) 15 mg PO Q12H [facility] Last Admin: 02/13/22 12:04 Dose: 15 mg Naloxone HCl (Naloxone 0.4 Mg/Ml 1 Ml Vial) 0.2 mg IV Q2M PRN PRN Reason: Opioid Reversal Nicotine (Nicotine 21mg/24hr Patch) 1 patch TRANSDERM DAILY [facility] Last Admin: 02/13/22 09:03 Dose: 1 patch Ondansetron HCl (Ondansetron 4 Mg/2 Ml Vial) 4 mg IVP Q8HR PRN PRN Reason: Nausea And Vomiting Last Admin: 02/02/22 08:41 Dose: 4 mg Pantoprazole Sodium (Pantoprazole 40 Mg/10 Ml Vial) 40 mg IVP BID [facility] Last Admin: 02/13/22 20:40 Dose: 40 mg Pregabalin (Pregabalin 100 Mg Cap) 100 mg PO BID [facility] Last Admin: 02/13/22 20:41 Dose: 100 mg Sodium Bicarbonate (Sodium Bicarbonate Tab 650 Mg Tab) 1,300 mg PO QID [facility] Last Admin: 02/13/22 17:03 Dose: 1,300 mg Tamsulosin HCl (Tamsulosin 0.4 Mg Cap.Er.24h) 0.4 mg PO PC-BRKFST [facility] Last Admin: 02/13/22 09:05 Dose: Not Given Past medical history to include: COPD, diabetes, hypertension, hyperlipidemia, back problems, TB, atrial fibrillation, on Coumadin Social history: Smokes a pack a day for close to 50 years. Stop doing alcohol some time ago. Lives with his significant other Sandra. Does use a walker. 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 Conjunctiva normal. HEENT: External appearance of nose and ears normal, oral cavity dry, OG tube with tube feeding, endotracheal tube NECK: JVD not raised; masses not palpable. HEART: Heart sounds regular; mild edema. LUNGS: Respiratory rate increased; decreased breath sound, ABDOMEN: Soft, distended, nontender, liver spleen not palpable, no masses palpable. PSYCH: Unable to assess, patient lethargic DERMATOLOGICAL: Wound on right ankle lateral malleolus. Under dressing. Stage II coccygeal breakdown. See nursing notes INVESTIGATIONS, reviewed in the clinical context: February 13: Potassium 4.7 BUN 66 creatinine 4.5 February 12: WBC 15.9 hemoglobin 9.9 platelets 149 potassium 4.4 BUN 57 creatinine 4.33 Acute hepatitis screen: Negative Complement C3 78, complement C4 19.6 February 11: Sodium 138 potassium 4.4 creatinine 4.19 Sputum: Stenostrophonas maltophilia, Lynda albicans Computed tomography scan abdomen and pelvis [February 06] 6 mm stone in the right renal collecting system. Some circumferential wall thickening of the cecum and ascending colon. Distention of the rectum 7.5 cm with solid stool. EEG: Evidence of encephalopathy. No obvious epileptiform activity. 2-D echocardiogram: EF 60-65%. Renal ultrasound: Shows bilateral normal cortical medullary thickness. February 01: WBC 17.1 hemoglobin 14.8 UA: Blood large, leukoesterase moderate WBC 28 nitrite negative Lumbar spine CT: Anterior wedge compression deformity of L1. Multiple level DJD. 7 mm calculus right renal pelvis. CT chest without contrast: Right lateral eighth through 10th rib fractures with associated gas trace hemothorax right lower lobe pulmonary contusion/atelectasis. Patchy) disease left upper lobe. WBC 25.8 hemoglobin 14.1 platelets 217 INR greater than 10 sodium 131 potassium 3.9. 24 creatinine 1.8 to EKG tracing personally reviewed by me-atrial flutter. Rate 132 Foot/Lumbar/sacral coccyx: Spondylitic changes. No fracture. Chest x-ray film personally reviewed by me-clinically. Possible hyperinflation Assessment and plan: -Coumadin toxicity. INR greater than 10. On presentation: 10 mg vitamin K in the ER. Hemoptysis on presentation. Coumadin resumed on February 05.. - right lung contusion.-Secondary to fall. hemoptysis on presentation -Pneumonia, secondary to Stenostrophonas maltophilia, Lynda albicans: Slow to respond IV cefepime, IV anidulafungin -Sepsis with positive blood cultures MSSA, likely source right ankle. From January 31. IV cefepime. February 04 blood culture negative -Acute hypoxic respiratory failure, multifactorial: ventilator support,: Slow to respond Patient intubated on February 05 -Acute COPD exacerbation, with chronic bronchitis component in a current smoker: Slow to respond DuoNeb. Nebulized Pulmicort. Mucinex. -Chronic nicotine dependence, cigarette smoker Nicotine patch -Paroxysmal atrial flutter,: Back in sinus rhythm Lopressor 50 mg 3 times a day. 2-D echocardiogram unremarkable. Oral amiodarone Coumadin started on February 05 -Possible CK D with possible acute component. creatinine was 0.8 in April 2019. Renal ultrasound unremarkable. UA shows trace protein. IV fluids.. -Acute kidney injury, ATN, likely cardiorenal syndrome.: Not improving Follow with nephrology. Daily Hemodialysis started February 09 -Acute right-sided 8-10 ribs fracture secondary to fall K pad -Diabetes mellitus type 2, chronically on oral hypoglycemic Hold Glucotrol. Sliding scale insulin. Levemir 14 units daily at bedtime -Diabetic peripheral neuropathy Decreased dose of Lyrica in the setting of renal failure. 100 mg twice a day -Chronic low back pain: MS Contin 15 mg every 12, Mineral 7.5 twice a day when necessary -Anxiety depression not otherwise specified Wellbutrin XL 100 mg twice a day -Hyperlipidemia Lipitor 40 mg daily at bedtime -Right ankle lateral, diabetic wound, stage II acute. Wound culture positive for Streptococcus agalactiae and Staphylococcus aureus. IV Ancef initially. Follow with ID Patient has poor distal pulses. February 01 wound was debrided by Dr. Ibarra. Clean base. -Acute L1 30% wedge fracture secondary to fall LSO brace. Be followed by Dr. Damon -Acute delirium multifactorial. Slow to respond -Acute ileus, NG tube for decompression.; clamped.: Corrected Being followed by surgery. -Possible colitis /fistula on computed tomography scan. IV Flagyl. Cefepime. Followed by surgery . IV propofol, IV norepinephrine. IV Flagyl,/IV cefepime/IV anidulafungin. Hemodialysis today. Prognosis guarded.
[2022-02-14 00:22] LABS: Glucose,Whole Blood 113 mg/dL (70-110)
[2022-02-14] MEDS: DEXTROSE 5% IN WATER 1,000 ML with SODIUM BICARB (1 MEQ/ML) 150 ML IV SCH (00:59)
[2022-02-14] MEDS: NOREPINEPHRINE 32 MG in SODIUM CHLORIDE 0.9% 218 ML IV SCH (01:00)
[2022-02-14] MEDS: metroNIDAZOLE-NS PMX 500 MG in SALINE 1 100ML.BAG IVPB SCH ×3 (01:37→17:16)
[2022-02-14] MEDS: MORPHINE ORAL SOLN 10 MG/5 ML CUP PO SCH ×2 (01:58→12:19)
[2022-02-14 04:51] LABS: Anisocytosis Slight; Basophils # (A) 0.1 k/uL (0-0.2); Basophils % (A) 1 %; Eosinophils # (A) 0.4 k/uL (0-0.7); Eosinophils % (A) 3 %; HCT 29.9 % (39.0-53.0); HGB 9.6 gm/dL (13.0-17.5); Hypochromasia Slight; Lymphocytes # (A) 1.3 k/uL (1.0-4.8); Lymphocytes % (A) 8 %; MCH 29.2 pg (25.0-35.0); MCHC 32.2 g/dL (31.0-37.0); MCV 90.6 fL (80.0-100.0); Mean Platelet Volume 11.1; Monocytes # (A) 0.9 k/uL (0-1.0); Monocytes % (A) 6 %; Neutrophils # (A) 13.1 k/uL (1.3-7.7); Neutrophils % (A) 81 %; Platelet Count 124 k/uL (150-450); RBC 3.31 m/uL (4.30-5.90); RDW 16.7 % (11.5-15.5); WBC 16.2 k/uL (3.8-10.6)
[2022-02-14 05:10] LABS: C Reactive Protein 6.3 mg/dL (<1.0); Calcium 7.4 mg/dL (8.4-10.2); Magnesium 1.8 mg/dL (1.6-2.3); Potassium 4.6 mmol/L (3.5-5.1)
[2022-02-14 05:44] LABS: ABG HCO3 25 mmol/L (21-25); ABG Hematocrit 29 % (34.0-46.0); ABG Oxygen Saturation 92.7 % (94-97); ABG PCO2 41 mmHg (35-45); ABG PH 7.39 (7.35-7.45); ABG PO2 68 mmHg (83-108); ABG TCO2 26 mmol/L (19-24); Allen Test Performed? Yes
[2022-02-14] MEDS ORDERED: MAGNESIUM SULFATE-D5W PMX 1 GM in DEXTROSE/WATER 1 100ML.BAG IVPB ONE (06:12)
[2022-02-14 06:38] LABS: Glucose,Whole Blood 142 mg/dL (70-110)
[2022-02-14] MEDS: INSULIN DETEMIR (LEVEMIR) 100 UNIT/ML SYR SQ SCH (06:44)
[2022-02-14] MEDS: INSULIN ASPART (NovoLOG) 100 UNIT/ML VIAL SQ SCH ×4 (06:46→19:08)
--- NOTE | 2022-02-14 07:27 | XR ---
EXAMINATION TYPE: XR chest 1V DATE OF EXAM: 02/14/2022 COMPARISON: 02/12/2022 HISTORY: 61-year-old male estimated. Best images possible due to unstable condition or nurse. TECHNIQUE: Single frontal view of the chest is obtained. FINDINGS: ET tube satisfactory. NG tube removed. There is marked rightward patient rotation and right oblique p ositioning altering the normal cardiac and mediastinal contours. Right CVC tip at the cavoatrial junc tion. Now semiupright positioning with suspected underlying moderate right and small left pleural eff usions and bilateral basilar opacities. IMPRESSION: Limited due to obliquity and the degree of rotation. Suspect a similar moderate right and small left effusion with adjacent atelectasis and or consolidation. Airspace disease particularly at the left lo wer lung remain similar as well.
[2022-02-14] MEDS: IPRATROPIUM-ALBUTEROL 3 ML NEB INHALATION SCH ×4 (07:38→19:06)
[2022-02-14] MEDS: BUDESONIDE 1 MG/2 ML NEBU INHALATION SCH ×2 (07:38→19:06)
[2022-02-14] MEDS: CALCIUM ACETATE 667 MG TAB PO SCH ×2 (07:40→17:16)
[2022-02-14] MEDS ORDERED: FUROSEMIDE 10 MG/ML 4 ML VIAL IV STA (07:44)
--- NOTE | 2022-02-14 07:46 | P.PN ---
Subjective Progress Note Date: 02/14/22 Principal diagnosis: Persistent atrial fibrillation This is a 61-year-old gentleman who was admitted to the hospital with acute on chronic respiratory failure as well as metabolic encephalopathy and septic shock. We involved in the care of the patient for the management of persistent atrial fibrillation. February [id number] The patient was seen this morning. He remains intubated on mechanical ventilation. He remains hemodynamically unstable and requiring vasopressors was norepinephrine. He has been in and out atrial fibrillation. He is currently on amiodarone. Once he goes to atrial fibrillation the heart rate has been under good control. Metoprolol is on hold at this point in the light off hypotension requiring vasopressors. INR today is 1.3 I'm going to give the patient 4 mg of Coumadin today and recheck the INR tomorrow. He underwent dialysis yesterday and during dialysis he was a slightly tachycardic. February 122021 The patient was seen this morning. He remains intubated on mechanical ventilation. He remains also unstable hemodynamically and requiring small dose of norepinephrine. Coumadin is on hold at this point because the patient p otentially going to undergo a PEG tube and tracheostomy Q placement later on. He has been with Mukul harris with controlled heart rate on the current dose of amiodarone. Beta donovan is on hold at this point. February 132021 The patient was seen this morning. He remains in respiratory failure. He underwent yesterday a PEG tube placement. He remains in atrial fibrillation overall with controlled heart rate on the current dose of amiodarone. Beta donovan is on hold at this point in the light of low blood pressure required norepinephrine. At this point we'll continue the current medical regimen and follow-up with the patient February 142021 The patient was seen this morning. He remains intubated on mechanical ventilation. He underwent PIC tube placement yesterday and he is in process of having a tracheostomy this coming Wednesday. On examination he seems to be hypervolemic. He does have bilateral lower extremities edema and the chest x- ray showed bilateral pleural effusion. He still norepinephrine. He continues to be in atrial fibrillation was controlled heart rate. There and output has been marginal. I'm going to the patient 40 mg of Lasix IV once. Objective - Vital Signs Vital signs: Vital Signs Temp 100.2 F H 09/17/22 04:00 Pulse 115 H 02/14/22 07:39 Resp 24 02/14/22 07:00 BP 132/75 02/14/22 07:00 Pulse Ox 93 L 02/14/22 07:00 FiO2 40 02/14/22 07:30 Intake & Output 02/13/22 02/14/22 02/14/22 18:59 06:59 18:59 Intake Total 6459.283 1809.457 128 Output Total 1755 243 15 Balance -801.958 7079.457 113 Weight 150 kg 154 kg Intake: IV 1016 926 73 .9 @ 20 80 240 20 Anidulafungin 100 mg In 100 Sodium Chloride 0.9% 100 ml @ 84 mls/hr IVPB DAILY [facility] Rx#:[id number] Cefepime 1 gm In Sodium 50 Chloride 0.9% 50 ml @ 12. 5 mls/hr IVPB Q12HR [facility] Rx#:[id number] Dextrose 5% in Water 1, 600 600 50 000 ml @ 50 mls/hr IV . Q23H [facility] with Sodium Bicarb (1 Meq/ml) 150 ml Rx#:[id number] Pressure bags 36 36 3 metroNIDAZOLE-NS PMX 500 200 mg In Saline 1 100ml.bag @ 100 mls/hr IVPB Q8HR [facility] Rx#:[id number] Intake, IV Titration 430.410 244.457 Amount Magnesium Sulfate-D5w Pmx 100 1 gm In Dextrose/Water 1 100ml.bag @ 100 mls/hr IVPB ONCE ONE Rx#: [id number] Norepinephrine 32 mg In 151.230 53.677 Sodium Chloride 0.9% 218 ml @ 0.05 MCG/KG/MIN 3. 246 mls/hr IV .Q24H [facility] Rx#:[id number] propofoL 1,000 mg In 279.18 90.78 Empty Bag 1 bag @ 5 MCG/ KG/MIN 4.08 mls/hr IV . Q24H [facility] Rx#:[id number] Tube Feeding 90 590 55 Other 90 Output: Gastric Drainage 295 Urine 460 243 15 Hemodialysis 1000 Other: Voiding Method Indwelling Catheter Indwelling Catheter ABP, PAP, CO, CI - Last Documented Arterial Blood Pressure 115/56 - Constitutional General appearance: Present: no acute distress - Respiratory Respiratory: bilateral: diminished - Cardiovascular Rhythm: irregularly irregular - Labs CBC & Chem 7: 02/14/22 04:18 02/14/22 04:18 Labs: Abnormal Lab Results - Last 24 Hours (Table) 02/13/22 02/14/22 02/14/22 Range/Units 08:54 00:20 04:18 WBC (3.8-10.6) k/uL RBC (4.30-5.90) m/uL Hgb (13.0-17.5) gm/dL Hct (39.0-53.0) % RDW (11.5-15.5) % Plt Count (150-450) k/uL Neutrophils # (1.3-7.7) k/uL ABG pO2 (83-108) mmHg ABG Total CO2 (19-24) mmol/L ABG O2 Saturation (94-97) % ABG Hematocrit (34.0-46.0) % Hemoglobin (13.0-17.5) gm/dL Sodium 135 L 135 L (137-145) mmol/L BUN 66 H 58 H (9-20) mg/dL Creatinine 4.53 H 4.44 H (0.66-1.25) mg/dL Glucose 159 H (74-99) mg/dL POC Glucose (mg/dL) 113 H (70-110) mg/dL Calcium 7.2 L 7.4 L (8.4-10.2) mg/dL C-Reactive Protein 6.3 H (<1.0) mg/dL 02/14/22 02/14/22 02/14/22 Range/Units 04:18 05:41 06:37 WBC 16.2 H (3.8-10.6) k/uL RBC 3.31 L (4.30-5.90) m/uL Hgb 9.6 L (13.0-17.5) gm/dL Hct 29.9 L (39.0-53.0) % RDW 16.7 H (11.5-15.5) % Plt Count 124 L (150-450) k/uL Neutrophils # 13.1 H (1.3-7.7) k/uL ABG pO2 68 L (83-108) mmHg ABG Total CO2 26 H (19-24) mmol/L ABG O2 Saturation 92.7 L (94-97) % ABG Hematocrit 29 L (34.0-46.0) % Hemoglobin 9.6 L (13.0-17.5) gm/dL Sodium (137-145) mmol/L BUN (9-20) mg/dL Creatinine (0.66-1.25) mg/dL Glucose (74-99) mg/dL POC Glucose (mg/dL) 142 H (70-110) mg/dL Calcium (8.4-10.2) mg/dL C-Reactive Protein (<1.0) mg/dL Assessment and Plan Assessment: Assessment Acute on chronic respiratory failure Metabolic encephalopathy Septic shock Persistent atrial fibrillation Renal failure Fluid overload Plan Give the patient 40 mg Lasix IV He continues to be on dialysis Continue amiodarone Continue holding Coumadin and restart the Coumadin after the thickest only Follow-up with the patient
[2022-02-14] MEDS: levETIRAcetam IV 500 MG in SODIUM CHLORIDE 0.9% 100 ML IVPB SCH (09:05)
[2022-02-14] MEDS: guaiFENesin 600 MG TABLET.ER PO SCH (09:05)
[2022-02-14] MEDS: FUROSEMIDE 40 MG TAB PO SCH (09:05)
[2022-02-14] MEDS: AMIODARONE 200 MG TAB PO SCH ×2 (09:05→21:04)
[2022-02-14] MEDS: bisacodyL 10 MG SUPP RECTAL SCH (09:05)
[2022-02-14] MEDS: CHLORHEXIDINE GLUCONATE 15 ML CUP MUCOUS MEM SCH ×2 (09:05→21:03)
[2022-02-14] MEDS: ANIDULAFUNGIN 100 MG in SODIUM CHLORIDE 0.9% 100 ML IVPB SCH (09:05)
[2022-02-14] MEDS: CEFEPIME 1 GM in SODIUM CHLORIDE 0.9% 50 ML IVPB SCH ×2 (09:05→21:03)
[2022-02-14] MEDS: METOPROLOL TARTRATE 25 MG TAB PO SCH ×2 (09:06→21:04)
[2022-02-14] MEDS: COLLAGENASE 250 UNIT/GM OINTMENT 30 GM TUBE TOPICAL SCH (09:06)
[2022-02-14] MEDS: NICOTINE 21MG/24HR PATCH TRANSDERM SCH (09:08)
[2022-02-14] MEDS: SODIUM BICARBONATE TAB 650 MG TAB PO SCH ×4 (09:09→21:03)
[2022-02-14] MEDS: PREGABALIN 100 MG CAP PO SCH ×2 (09:09→21:04)
[2022-02-14] MEDS: PANTOPRAZOLE 40 MG/10 ML VIAL IVP SCH ×2 (09:09→21:03)
[2022-02-14] MEDS: TAMSULOSIN 0.4 MG CAP.ER.24H PO SCH (09:10)
--- NOTE | 2022-02-14 10:07 | P.PN ---
Subjective Patient is seen in follow-up for acute kidney injury. Started on hemodialysis 02/09/2022. Intubated. On Levophed. Receiving tube feeds. Acidosis improved. Urine output about tender to 15 mL an hour. Tracheostomy now on Wednesday. Vital signs are stable. On Levophed. General: Resting in bed. HEENT: Intubated. LUNGS: Breath sounds decreased. HEART: Rate and Rhythm are regular. ABDOMEN: Soft, no distention. EXTREMITITES: 1+ edema. Objective - Vital Signs Vital signs: Vital Signs Temp 100.9 F H 02/14/22 08:00 Pulse 112 H 02/14/22 09:00 Resp 24 02/14/22 09:00 BP 132/75 02/14/22 07:00 Pulse Ox 96 02/14/22 09:00 FiO2 40 02/14/22 08:00 Intake & Output 02/13/22 02/14/22 02/14/22 18:59 06:59 18:59 Intake Total 6684.937 4871.117 128 Output Total 1755 243 15 Balance -374.941 1088.117 113 Weight 150 kg 154 kg Intake: IV 1016 926 73 .9 @ 20 80 240 20 Anidulafungin 100 mg In 100 Sodium Chloride 0.9% 100 ml @ 84 mls/hr IVPB DAILY [facility] Rx#:[id number] Cefepime 1 gm In Sodium 50 Chloride 0.9% 50 ml @ 12. 5 mls/hr IVPB Q12HR [facility] Rx#:[id number] Dextrose 5% in Water 1, 600 600 50 000 ml @ 50 mls/hr IV . Q23H [facility] with Sodium Bicarb (1 Meq/ml) 150 ml Rx#:[id number] Pressure bags 36 36 3 metroNIDAZOLE-NS PMX 500 200 mg In Saline 1 100ml.bag @ 100 mls/hr IVPB Q8HR [facility] Rx#:[id number] Intake, IV Titration 430.410 327.117 Amount Magnesium Sulfate-D5w Pmx 100 1 gm In Dextrose/Water 1 100ml.bag @ 100 mls/hr IVPB ONCE ONE Rx#: [id number] Norepinephrine 32 mg In 151.230 53.677 Sodium Chloride 0.9% 218 ml @ 0.05 MCG/KG/MIN 3. 246 mls/hr IV .Q24H [facility] Rx#:[id number] propofoL 1,000 mg In 279.18 173.44 Empty Bag 1 bag @ 5 MCG/ KG/MIN 4.08 mls/hr IV . Q24H [facility] Rx#:[id number] Tube Feeding 90 590 55 Other 90 Output: Gastric Drainage 295 Urine 460 243 15 Hemodialysis 1000 Other: Voiding Method Indwelling Catheter Indwelling Catheter Indwelling Catheter ABP, PAP, CO, CI - Last Documented Arterial Blood Pressure 117/57 - Labs CBC & Chem 7: 02/14/22 04:18 02/14/22 04:18 Labs: Abnormal Lab Results - Last 24 Hours (Table) 02/14/22 02/14/22 02/14/22 Range/Units 00:20 04:18 04:18 WBC 16.2 H (3.8-10.6) k/uL RBC 3.31 L (4.30-5.90) m/uL Hgb 9.6 L (13.0-17.5) gm/dL Hct 29.9 L (39.0-53.0) % RDW 16.7 H (11.5-15.5) % Plt Count 124 L (150-450) k/uL Neutrophils # 13.1 H (1.3-7.7) k/uL ABG pO2 (83-108) mmHg ABG Total CO2 (19-24) mmol/L ABG O2 Saturation (94-97) % ABG Hematocrit (34.0-46.0) % Hemoglobin (13.0-17.5) gm/dL Sodium 135 L (137-145) mmol/L BUN 58 H (9-20) mg/dL Creatinine 4.44 H (0.66-1.25) mg/dL Glucose 159 H (74-99) mg/dL POC Glucose (mg/dL) 113 H (70-110) mg/dL Calcium 7.4 L (8.4-10.2) mg/dL C-Reactive Protein 6.3 H (<1.0) mg/dL 02/14/22 02/14/22 Range/Units 05:41 06:37 WBC (3.8-10.6) k/uL RBC (4.30-5.90) m/uL Hgb (13.0-17.5) gm/dL Hct (39.0-53.0) % RDW (11.5-15.5) % Plt Count (150-450) k/uL Neutrophils # (1.3-7.7) k/uL ABG pO2 68 L (83-108) mmHg ABG Total CO2 26 H (19-24) mmol/L ABG O2 Saturation 92.7 L (94-97) % ABG Hematocrit 29 L (34.0-46.0) % Hemoglobin 9.6 L (13.0-17.5) gm/dL Sodium (137-145) mmol/L BUN (9-20) mg/dL Creatinine (0.66-1.25) mg/dL Glucose (74-99) mg/dL POC Glucose (mg/dL) 142 H (70-110) mg/dL Calcium (8.4-10.2) mg/dL C-Reactive Protein (<1.0) mg/dL Assessment and Plan Plan: Assessment: 1. Acute kidney injury secondary to ATN secondary to septic shock. Started on hemodialysis 02/09/2022. Urine output stable at 10-15 mL an hour. Creatinine in April 2019 was 0.8. Creatinine was as low as 1.62 this admission. No hydronephrosis noted on CAT scan. 2. MSSA bacteremia with likely source being right foot ulcer. ID following. On antibiotics. 3. A. fib. Cardiology following. 4. Metabolic acidosis secondary to acute kidney injury. s/p bicarb drip. On po bicarb. Better. 5. Diabetes mellitus. 6. Hyperphosphatemia secondary to acute kidney injury. On PhosLo. 7. Volume overload. Improved with ultrafiltration. Plan: Hemodialysis today. plan to hold tomorrow. Add Demadex 40 mg once daily starting tomorrow. Stop oral Lasix. Maintain tube feeds. Wean FiO2 and vasopressors. Continue to monitor for renal recovery. Follow-up serologies. C3 slightly low. Tracheostomy Wednesday.
--- NOTE | 2022-02-14 11:24 | P.PN ---
Subjective Progress Note Date: 02/14/22 Principal diagnosis: Respiratory failure. Patient was reevaluated today on 02/06/22, remains in the ICU, intubated and mechanically ventilated. Patient is sedated, his ventilator settings are assist control rate of 24 tidal volume 500 FiO2 45% and PEEP of 5. ABG showed a pO2 of 85 pCO2 37 pH of 7.37 patient had worsening urine output and worsening renal status overnight, received almost 4 L of fluids, continue to have low urine output and this morning he received 80 mg of Lasix IV push. CVP continues to read the low below 7. His endotracheal tube was noted to be sitting high in the trachea and it will be advanced about 3 cm. Patient remains on propofol at 40 mcg/kg/m IV fluids/normal saline at 100 mL per hour norepinephrine at 0.02 mcg/kg/m today I recommended a nephrology consultation and the patient will be undergoing CT of the abdomen for ileus. The CT of the abdomen showed mild to moderate circumferential wall thickening of the cecum and ascending colon pos sible nonspecific infectious or inflammatory colitis. There was also distention of the rectum up to 7.5 cm with solid stool. Patient is developing fecal impaction. There is also the possibility of perianal fistula noted on the CT of the abdomen and pelvis. Blood cultures from 97 and 98 are negative so far. Previous blood cultures from 01/31 hence 02/01 were positive for staph aureus Patient was reevaluated today on 02/07/22, patient remains in the ICU, intubated and mechanically ventilated. Patient is on assist control rate of 24 tidal volume 500 FiO2 45% PEEP of 5 ABG showed a pO2 of 79 pCO2 36 pH of 7.33. Continues to have very low urine output, renal functioning seems to be getting worse, and nephrology as on consultation, today I cut down his IV fluid to 50 mL/h and I gave him a dose of Lasix 80 mg IV push. Again his urine output is extremely marginal. Patient is off norepinephrine today blood pressure seems to be better controlled. He is on propofol at 30 mcg/kg/m IV fluid cut down to 50 mL/h and he is on tube feeding. No changes were made today for his ventilator settings chest x-ray continues to show small bilateral patchy airspace disease, and possibly some component of pleural effusion is noted bilaterally. WBC count is 18.5 hemoglobin 11.6. INR is 2.2 electrolytes are normal bicarb is 18 BUN is 49, and 3.73 creatinine up from yesterday Patient was reevaluated today on , remains in the ICU intubated mechanically ventilated, sedated, his ventilator settings are assist control rate 24 tidal volume 500 FiO2 40% PEEP of 5 ABG showed a pO2 of 95 pCO2 34 pH of 7.28, reflecting a mild metabolic acidosis most likely secondary to his worsening renal failure his creatinine is up to 4.36 today. Patient does respond to diuretics, however I believe the patient is clinically dry, and I'm recommending fluid boluses today, 500 mL of saline intermittently patient has a good urine output, especially after Lasix. Otherwise his urine output is poor. CVP remains low, chest x-ray is showing improvement in his fluid overload, hence I'm recommending fluid boluses to be given today. Patient remains on antibiotics for his MSSA infection he is on cefepime is also on Flagyl. Today I'm recommending that the patient goes off propofol and to be able to get adeq uate mental assessment. He is requiring to small dose of norepinephrine 0.05 mcg/kg/m, and I'm hoping with fluid boluses we could potentially discontinue norepinephrine today. Again chest x-ray is showing slight improvement. And I plan to stop propofol today. Patient was seen by nephrology and considering starting hemodialysis in the next 24 or 48 hours. They are consulting vascular surgery for dialysis catheter placement. WBC count today is 23.6 hemoglobin is 11.1 INR is 3.0 electrolytes are normal except for low bicarb of 14, BUN is 54 creatinine 4.36. Progress note dated 02/09/2022. This is a 61-year-old male who was admitted on January 31, for atrial fibrillation and cellulitis. On February 05, he was intubated for respiratory failure. The patient remains on the ventilator. Currently, she is on the volume assist control, with a rate of 24, tidal volume 500, FiO2 40%, and PEEP of 5. Arterial blood gases show pO2 of 90, pCO2 pH of 7.21. His blood gases are consistent with metabolic acidosis. The patient will be started on a bicarbonate drip, with 3 ampules of sodium bicarbonate and D5W at 50 mL an hour. The patient is also on norepinephrine at 21 mcg/m, and propofol at 40 mcg/kg/m. The patient's getting vital HP at 33 mL an hour, which is goal. The patient remains on Flagyl and cefepime. A hemodialysis catheter will be placed today. White count 26.5, hemoglobin 11.7, hematocrit 40, and platelet count 201,000. PTT is 32.5 with an INR 3.3. Sodium 140, potassium 4.8, chlorides 114, CO2 13, anion gap 13, BUN 60, and creatinine 4.66. Albumin is 2. Sputum sampling from February 05 show stenotrophomonas. Blood cultures from February 01 are positive for staph aureus. Chest x-ray shows a pattern of CHF, cardiomegaly, small to moderate effusions, and pulmonary vascular congestion. Progress note dated 02/10/2022. 61-year-old male admitted on January 31, for atrial fibrillation and cellulitis. On February 05, he was intubated for respiratory failure. He remains on the mechanical ventilator. He is currently on volume assist control, rate 24, tidal volume 500, FiO2 50%, and PEEP of 5. Blood gases show pO2 of 95, pCO2 of 38, pH is 7.29. Blood gases are consistent with metabolic acidosis. The patient remains on norepinephrine at 15 mcg/m, propofol at 25 mcg/kg/m, and D5W with 3 ampules of sodium bicarbonate at 50 mL an hour. The patient had a daily interruption of sedation on February 09, and lasted about an hour and 15 minutes, before agitation forced him to go back on the ventilator. In addition, he had hemodialysis yesterday and what hemodialysis again today. There was no additional fluid removal. Patient remains on vital high protein at 45 mL an hour, which is goal, as well as on Flagyl and cefepime. CBC is currently pe nding. INR 1.4. Sodium 138, potassium 4.3, chlorides 108, CO2 16, anion gap 14, BUN 56, and creatinine 4.44. The chest x-ray and abdominal films are all reviewed. Progress note dated 02/11/2022. 61-year-old male admitted on January 31, for atrial fibrillation and cellulitis. On February 05, the patient was intubated for respiratory failure, and remains on the mechanical ventilator. He's not made any progress, and over the last couple days, have done daily interruption of sedation, and the patient has done poorly. He is currently on volume assist control, rate 24, tidal volume 500, FiO2 50%, and PEEP of 5. Blood gases show a PaO2 of 97, pCO2 40, and pH is 7.33. The patient remains on propofol at 25 mcg/kg/m, norepinephrine at 9 mcg/m, and 3 ampules of sodium bicarbonate and D5W at 50 mL an hour. In addition, the patient is getting tube feeds with vital high protein at 45 mL an hour, which is goal. He had hemodialysis yesterday and 1 L was removed. He'll have hemodialysis again today. We will have surgery see him for a possible tracheostomy and PEG tube placement later this week. I did have a long conversation with his brother, Joe, who is in agreement. White count 21, hemoglobin 10.7, hematocrit 34.3, and platelet count 274,000. Sodium 138, potassium 4.4, chlorides 105, CO2 20, BUN 57, and creatinine 4.19. Calcium is 7. Microbiology showing evidence of stenotrophomonas sputum, and staph aureus in the blood. Chest x-ray shows bilateral pleural effusions and bibasilar atelectasis. Computed tomography scan of the brain shows mild atrophy, and an old left occipital lobe infarct. Computed tomography scan is unchanged. Progress note dated 02/12/2022. 61-year-old male admitted on January 31, for atrial fibrillation and cellulitis. 5 days later on February 05, the patient was intubated for respiratory failure, and remains on the mechanical ventilator. Yesterday, I had a conversation with the patient's brother. The brother did agree to proceed w ith tracheostomy and PEG tube placement. He states that his brother and one everything done at this point, given the fact that he is only 61 years of age. The patient has done poorly on daily interruptions of sedation. He remains on volume assist control, rate 24, tidal volume 500, FiO2 40%, and PEEP of 5. The patient is currently on propofol at 25 mcg/kg/m, and norepinephrine at 0.085 mcg/kg/m. He is also getting saline at 10 mL an hour, and a sodium bicarbonate drip, with 3 ampules of sodium bicarbonate and D5W at 50 mL an hour. The patient is also getting vital high protein at goal. White count 15.9, hemoglobin 9.9, hematocrit 31.1, and platelet count 249,000. PT 14.5. INR 1.4. Blood gases show pO2 of 77, pCO2 39, and pH is 7.38. Sodium 136, potassium 4.4, chlorides 102, CO2 21, BUN 57, and creatinine 4.33. Microbiologic sampling has been positive for stenotrophomonas in the sputum, and staph aureus in the bloodstream. The patient is currently on cefepime, Flagyl, and Eraxis. The infectious disease physician is following this patient. Chest x-ray is largely unchanged and shows bilateral pleural effusions and bibasilar atelectasis. Progress note dated 02/13/2022. 61-year-old male, admitted on January 31 for atrial fibrillation and cellulitis. The patient was intubated on February 05, her respiratory failure. The patient remains on mechanical ventilator. The patient had a PEG tube placed on February 12. Apparently, to have a tracheostomy tube placed on February 13. I did speak to the patient's brother, and confirmed that the patient would want both PEG tube and tracheostomy performed. Currently, he's on the volume assist control, rate 24, tidal volume 500, FiO2 40%, of 5. Blood gases show pO2 71, pCO2 of 36, and a pH is 7.41. The patient's on herbal follow 25 mcg/kg/m, norepinephrine at 0.095 mcg/kg/m, a sodium bicarbonate drip, with 3 ampules of sodium bicarbonate and D5W at 50 mL an hour, and saline at 20 mL an hour. Tube feedings are currently on hold. Laboratory data from today is currently pending. Chest x-ray is also pending. Progress note dated 02/14/2022. 61-year-old male admitted on January 31 or atrial fibrillation and cellulitis. The patient was intubated on February 05, for respiratory failure. The patient remains on the mechanical ventilator. The patient had a PEG tube placed on February 12. The patient will have his tracheostomy performed on February 16. Ventilator settings include the volume assist control, rate when he 4, tidal volume 500, FiO2 40%, and PEEP of 5. Blood gases show pO2 of 68, pCO2 41, and a pH is 7.39. The patient remains on propofol at 25 mcg/kg/m, and norepinephrine at 13 mcg/m. The patient is getting vital HP, at 55 mL an hour, with a goal of 65. The patient will have hemodialysis today. White count 16.2, hemoglobin 9.6, hematocrit 29.9, kind 124,000. Sodium 135, potassium 4.6, chlorides 98, CO2 22, anion gap 15, BUN 58, and creatinine 4.44. Chest x-ray shows bilateral small effusions, with some basilar atelectasis and consolidation. Objective - Vital Signs Vital signs: Vital Signs Temp 100.9 F H 02/14/22 08:00 Pulse 98 02/14/22 11:06 Resp 24 02/14/22 10:00 BP 132/75 02/14/22 07:00 Pulse Ox 97 02/14/22 10:00 FiO2 40 02/14/22 10:52 Intake & Output 02/13/22 02/14/22 02/14/22 18:59 06:59 18:59 Intake Total 2406.107 4560.117 712 Output Total 1755 243 45 Balance -542.308 6633.117 667 Weight 150 kg 154 kg Intake: IV 1016 926 442 .9 @ 20 80 240 30 Anidulafungin 100 mg In 100 100 Sodium Chloride 0.9% 100 ml @ 84 mls/hr IVPB DAILY [facility] Rx#:[id number] Cefepime 1 gm In Sodium 50 50 Chloride 0.9% 50 ml @ 12. 5 mls/hr IVPB Q12HR [facility] Rx#:[id number] Dextrose 5% in Water 1, 600 600 50 000 ml @ 50 mls/hr IV . Q23H [facility] with Sodium Bicarb (1 Meq/ml) 150 ml Rx#:[id number] Pressure bags 36 36 12 levETIRAcetam IV 500 mg 100 In Sodium Chloride 0.9% 100 ml @ 400 mls/hr IVPB DAILY [facility] Rx#:[id number] metroNIDAZOLE-NS PMX 500 200 100 mg In Saline 1 100ml.bag @ 100 mls/hr IVPB Q8HR [facility] Rx#:[id number] Intake, IV Titration 430.410 327.117 Amount Magnesium Sulfate-D5w Pmx 100 1 gm In Dextrose/Water 1 100ml.bag @ 100 mls/hr IVPB ONCE ONE Rx#: [id number] Norepinephrine 32 mg In 151.230 53.677 Sodium Chloride 0.9% 218 ml @ 0.05 MCG/KG/MIN 3. 246 mls/hr IV .Q24H [facility] Rx#:[id number] propofoL 1,000 mg In 279.18 173.44 Empty Bag 1 bag @ 5 MCG/ KG/MIN 4.08 mls/hr IV . Q24H [facility] Rx#:[id number] Tube Feeding 90 590 240 Other 90 30 Output: Gastric Drainage 295 Urine 460 243 45 Hemodialysis 1000 Other: Voiding Method Indwelling Catheter Indwelling Catheter Indwelling Catheter ABP, PAP, CO, CI - Last Documented Arterial Blood Pressure 109/52 - Exam No acute distress, sedated, with an orally placed endotracheal tube. He now has a orally placed NG tube. HEENT examination is grossly unremarkable. Neck supple. Full range of motion. No adenopathy thyromegaly or neck vein distention. Cardiovascular examination reveals an irregular rhythm. S1-S2 normal. No S3 or S4. No discernible murmur noted. Heart rate 98 bpm. Lungs reveal bibasilar crackles. Bilateral rhonchi are noted. No wheezes. Breath sounds are equal bilaterally. Saturations are 97 %. Abdomen obese, bowel sounds. No masses. A PEG tube is now noted. Extremities are intact. No cyanosis clubbing or edema. Skin reveals a large around the lateral malleolus of the right foot with gangrenous changes. Neurologic examination cannot be properly assessed as the patient's currently sedated. - Labs CBC & Chem 7: 02/14/22 04:18 02/14/22 04:18 Labs: Abnormal Lab Results - Last 24 Hours (Table) 02/14/22 02/14/22 02/14/22 Range/Units 00:20 04:18 04:18 WBC 16.2 H (3.8-10.6) k/uL RBC 3.31 L (4.30-5.90) m/uL Hgb 9.6 L (13.0-17.5) gm/dL Hct 29.9 L (39.0-53.0) % RDW 16.7 H (11.5-15.5) % Plt Count 124 L (150-450) k/uL Neutrophils # 13.1 H (1.3-7.7) k/uL ABG pO2 (83-108) mmHg ABG Total CO2 (19-24) mmol/L ABG O2 Saturation (94-97) % ABG Hematocrit (34.0-46.0) % Hemoglobin (13.0-17.5) gm/dL Sodium 135 L (137-145) mmol/L BUN 58 H (9-20) mg/dL Creatinine 4.44 H (0.66-1.25) mg/dL Glucose 159 H (74-99) mg/dL POC Glucose (mg/dL) 113 H (70-110) mg/dL Calcium 7.4 L (8.4-10.2) mg/dL C-Reactive Protein 6.3 H (<1.0) mg/dL 02/14/22 02/14/22 Range/Units 05:41 06:37 WBC (3.8-10.6) k/uL RBC (4.30-5.90) m/uL Hgb (13.0-17.5) gm/dL Hct (39.0-53.0) % RDW (11.5-15.5) % Plt Count (150-450) k/uL Neutrophils # (1.3-7.7) k/uL ABG pO2 68 L (83-108) mmHg ABG Total CO2 26 H (19-24) mmol/L ABG O2 Saturation 92.7 L (94-97) % ABG Hematocrit 29 L (34.0-46.0) % Hemoglobin 9.6 L (13.0-17.5) gm/dL Sodium (137-145) mmol/L BUN (9-20) mg/dL Creatinine (0.66-1.25) mg/dL Glucose (74-99) mg/dL POC Glucose (mg/dL) 142 H (70-110) mg/dL Calcium (8.4-10.2) mg/dL C-Reactive Protein (<1.0) mg/dL Assessment and Plan Assessment: Acute hypercapnic respiratory failure, status post intubation and mechanical ventilation on 02/05/2022. Status post PEG tube placement 02/12/2022. Stenotrophomonas tracheobronchitis/bronchopneumonia. Methicillin sensitive staph. aureus bacteremia. Acute metabolic encephalopathy. Right sided rib fractures, traumatic, secondary to a fall. Right-sided pulmonary contusion. Anterior wedge compression fracture, L1. Hemoptysis, secondary to pulmonary contusion. COPD from chronic tobacco use. Coumadin toxicity. Chronic atrial fibrillation. Chronic kidney disease, stage III. Stage II right ankle wound, status post debridement. Diabetic peripheral neuropathy. History of kidney stones. Nonspecific colitis. Plan: Plan dated 02/09/2022. We will continue ventilatory support. The patient will have a daily interruption of sedation. The patient remains on Flagyl and cefepime. Culture data is reviewed. Continue GI and DVT prophylaxis. Prognosis is guarded. Labs, x-rays, and medications are all reviewed. We will continue to follow make recommendations along the way. The patient continues on amiodarone. Plan dated 02/10/2022. The patient will have another daily interruption of sedation. Yesterday, he did, and was only off sedation for about an hour and 15 minutes. The patient may not be ready yet. The patient did have hemodialysis yesterday, and will have an again today. Blood gases are consistent with metabolic acidosis. Chest x-ray, labs, and medications are reviewed. The patient remains on norepinephrine at 15 mcg/m. The patient remains on propofol at 25 mcg/kg/m. The patient also remains on Flagyl and cefepime. Prognosis is certainly guarded. We will continue to follow and make recommendations along the way. Plan dated 02/11/2022. Over the last couple of days, the patient has done poorly with his daily interruption of sedation. He is obviously not moving towards weaning and extubation. I had a conversation with his brother Joe today, and we did agree on proceeding with a tracheostomy and PEG one of the surgeons will be consulted. Labs, x-rays, and medications are reviewed. The patient will get hemodialysis again today. The patient remains on propofol and norepinephrine, as well as a bicarbonate drip. Nephrology is following. He is receiving tube feedings at goal. The patient's overall prognosis is very guarded. Plan dated 02/12/2022. We will proceed with tracheostomy and PEG tube, as these apparently are the wishes of the patient, and the wishes of the patient's brother, Joe. The patient has done very poorly with his daily interruption of sedation. Nephrology is following the patient has been doing daily hemodialysis. The patient remains on propofol, and norepinephrine. The patient is also on a sodium bicarbonate drip. He is receiving tube feedings at goal. Labs, x-rays, and medications are reviewed. Overall prognosis remains very guarded. Surgery has been consulted for the tracheostomy and PEG tube placement Plan dated 02/13/2022. The patient is supposed to have a tracheostomy tube placed today. He had a PEG tube placed yesterday, February 12. Labs, x-rays, medications are reviewed. I did speak to the brother, Joe, about the patient's desire to have everything done at this point. The patient is undergoing hemodialysis as per nephrology. He remains on a sodium bicarbonate drip. Labs, x-rays, and medications are all reviewed. Prognosis is guarded. He remains on Flagyl, cefepime, and Eraxis. Plan dated 02/14/2022. The patient is seen and evaluated. The patient will have his tracheostomy tube performed on 02/16/2022. His PEG tube was placed on February 12. Labs, x- rays, and medications are reviewed. The patient's overall prognosis remains very guarded. Microbiologic data is reviewed again. He is on Eraxis, cefepime, and Flagyl. Additional recommendations and suggestions are forthcoming. The patient remains on propofol for sedation, and norepinephrine at 13 mcg/m for blood pressure support. We will continue to follow make recommendations along the way. Prognosis is certainly guarded. Time with Patient: Greater than 30
[2022-02-14 12:05] LABS: Glucose,Whole Blood 171 mg/dL (70-110)
--- NOTE | 2022-02-14 13:47 | P.PN ---
Subjective Progress Note Date: 02/14/22 The patient is seen at bedside and per nurse is about the same. His Trach and PEG is schedule for this Wednesday. He is currently getting dialysis. Objective - Vital Signs Vital signs: Vital Signs Temp 100.5 F H 02/14/22 12:00 Pulse 101 H 02/14/22 13:00 Resp 24 02/14/22 13:00 BP 132/75 02/14/22 07:00 Pulse Ox 94 L 02/14/22 13:00 FiO2 40 02/14/22 12:00 Intake & Output 02/13/22 02/14/22 02/14/22 18:59 06:59 18:59 Intake Total 5115.292 0293.117 1283 Output Total 1768 097 9837 Balance -384.820 8439.117 -837 Weight 150 kg 154 kg Intake: IV 1016 926 468 .9 @ 20 80 240 50 Anidulafungin 100 mg In 100 100 Sodium Chloride 0.9% 100 ml @ 84 mls/hr IVPB DAILY [facility] Rx#:[id number] Cefepime 1 gm In Sodium 50 50 Chloride 0.9% 50 ml @ 12. 5 mls/hr IVPB Q12HR [facility] Rx#:[id number] Dextrose 5% in Water 1, 600 600 50 000 ml @ 50 mls/hr IV . Q23H [facility] with Sodium Bicarb (1 Meq/ml) 150 ml Rx#:[id number] Pressure bags 36 36 18 levETIRAcetam IV 500 mg 100 In Sodium Chloride 0.9% 100 ml @ 400 mls/hr IVPB DAILY [facility] Rx#:[id number] metroNIDAZOLE-NS PMX 500 200 100 mg In Saline 1 100ml.bag @ 100 mls/hr IVPB Q8HR [facility] Rx#:[id number] Intake, IV Titration 430.410 327.117 85 Amount Magnesium Sulfate-D5w Pmx 100 1 gm In Dextrose/Water 1 100ml.bag @ 100 mls/hr IVPB ONCE ONE Rx#: [id number] Norepinephrine 32 mg In 151.230 53.677 Sodium Chloride 0.9% 218 ml @ 0.05 MCG/KG/MIN 3. 246 mls/hr IV .Q24H [facility] Rx#:[id number] propofoL 1,000 mg In 279.18 173.44 85 Empty Bag 1 bag @ 5 MCG/ KG/MIN 4.08 mls/hr IV . Q24H [facility] Rx#:[id number] Tube Feeding 90 590 370 Hemodialysis 300 Other 90 60 Output: Gastric Drainage 295 Urine 460 243 120 Hemodialysis 1000 2000 Other: Voiding Method Indwelling Catheter Indwelling Catheter Indwelling Catheter ABP, PAP, CO, CI - Last Documented Arterial Blood Pressure 108/54 - Exam GENERAL: The patient is a morbid obese gentleman lying in bed and does not appear in acute distress. HENT: Supple neck. LUNG: Intubated on ventilator. NEUROLOGICAL: Limited because of his condition. IV Propofol 25mcg/kg/min Higher mental function: The patient is comatose. GCS 3 (E1, VT1, M1). Patient is not following commands or attempting to verbalize. Cranial nerves: I had to manually open his eyes. The pupils are round, 2mm equal and reactive to light. Primary gaze is midline. No facial weakness. Has weak cough reflex with suctioning and grimaces face. Is breathing at vent setting A/C set at 24. Motor: The strength is in movement is appreciated. Normal bulk. Sensation: Unable to assess light touch. - Labs CBC & Chem 7: 02/14/22 04:18 02/14/22 04:18 Labs: Abnormal Lab Results - Last 24 Hours (Table) 02/14/22 02/14/22 02/14/22 Range/Units 00:20 04:18 04:18 WBC 16.2 H (3.8-10.6) k/uL RBC 3.31 L (4.30-5.90) m/uL Hgb 9.6 L (13.0-17.5) gm/dL Hct 29.9 L (39.0-53.0) % RDW 16.7 H (11.5-15.5) % Plt Count 124 L (150-450) k/uL Neutrophils # 13.1 H (1.3-7.7) k/uL ABG pO2 (83-108) mmHg ABG Total CO2 (19-24) mmol/L ABG O2 Saturation (94-97) % ABG Hematocrit (34.0-46.0) % Hemoglobin (13.0-17.5) gm/dL Sodium 135 L (137-145) mmol/L BUN 58 H (9-20) mg/dL Creatinine 4.44 H (0.66-1.25) mg/dL Glucose 159 H (74-99) mg/dL POC Glucose (mg/dL) 113 H (70-110) mg/dL Calcium 7.4 L (8.4-10.2) mg/dL C-Reactive Protein 6.3 H (<1.0) mg/dL 02/14/22 02/14/22 02/14/22 Range/Units 05:41 06:37 12:04 WBC (3.8-10.6) k/uL RBC (4.30-5.90) m/uL Hgb (13.0-17.5) gm/dL Hct (39.0-53.0) % RDW (11.5-15.5) % Plt Count (150-450) k/uL Neutrophils # (1.3-7.7) k/uL ABG pO2 68 L (83-108) mmHg ABG Total CO2 26 H (19-24) mmol/L ABG O2 Saturation 92.7 L (94-97) % ABG Hematocrit 29 L (34.0-46.0) % Hemoglobin 9.6 L (13.0-17.5) gm/dL Sodium (137-145) mmol/L BUN (9-20) mg/dL Creatinine (0.66-1.25) mg/dL Glucose (74-99) mg/dL POC Glucose (mg/dL) 142 H 171 H (70-110) mg/dL Calcium (8.4-10.2) mg/dL C-Reactive Protein (<1.0) mg/dL Assessment and Plan Assessment: * Altered mental status due to multifactorial: Metabolic encephalopathy/uremic encephalopathy (getting dialysis) and septicemia from cellulitis of right foot ulcer. Also due to medication effect (IV Propofol). Myoclonic twitching has resolved. * Cellulitis with right foot ulcer * Septicemia with staph aureus. * Status post fall with L1 compression fracture * Moderate renal insufficiency, worsening getting dialysis * Coagulopathy * Right sided rib fractures secondary to fall. 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 * Peripheral edema. * Long-standing history of frequent falls, uses walker * COPD * Chronic tobacco use * Diabetes with hemoglobin A1c 8.1 * Probable diabetic peripheral neuropathy. * Peripheral arterial disease Plan: * Patient's renal functions are worsening. Dr. Stoll decreased Keppra to 500 mg once daily and recommended, if the patient recovers, then Keppra can be weaned off. * Repeat CT head is reported as old left occipital lobe infarct. Mild atrophy. No acute intracranial abnormality. No significant change compared to recent exam. Epileptiform reviewed the CT of the head and I agree there is no acute or subacute ischemia and there is no at the proximal hemorrhage. * Repeat routine EEG on 02/11/2022: As abnormal. The background slowing is suggestive of severe encephalopathy likely due to toxic metabolic abnormality. Otherwise there is no focal slowing, epileptiform discharges or seizure on the EEG. * I.D. is on obard. * Will defer the rest of medical management to the primary and ICU team. * Please avoid any sedation or opiates use if possible that will affect neurolog ical examination. Will follow-up with patient sporadically. Chava Jackson M.D. Neuro-Hospitalist. Time with Patient: Less than 30
[2022-02-14 14:15] LABS: Albumin 1.67 g/dL (3.80-4.90); Gamma Globulin 0.54 g/dL (0.70-1.50)
--- NOTE | 2022-02-14 15:45 | P.PN ---
Subjective Progress Note Date: 02/14/22 Principal diagnosis: Right foot infected pressure ulcer and bacteremia Patient is a 61-year-old male presented to the hospital for evaluation of fall patient also noticed to have a wound on the right lateral foot with some necrotic edges which has been debridement by vascular surgery on 01/31/2022.Patient has been transthoracic because of significant mental status changes, The patient ended up getting intubated, the patient also have worsening of the kidney function requiring dialysis catheter placement and has been started on dialysis as of 02/09/2022, the patient did have a PEG tube placement on 02/12/2022 On today's evaluation that is 02/14/2022, The patient did have a low-grade fever 100.5 this morning, the patient FiO2 is stable at 40 %, no significant purulent secretion through the ET or diarrhea reported by the nursing staff, the patient remains to be on low-dose pressor support has been tolerating his tube feeds Objective - Vital Signs Vital signs: Vital Signs Temp 100.5 F H 02/14/22 12:00 Pulse 101 H 02/14/22 13:00 Resp 24 02/14/22 13:00 BP 132/75 02/14/22 07:00 Pulse Ox 94 L 02/14/22 13:00 FiO2 40 02/14/22 12:00 Intake & Output 02/13/22 02/14/22 02/14/22 18:59 06:59 18:59 Intake Total 3906.383 0253.117 1283 Output Total 4342 442 7745 Balance -022.615 1098.117 -837 Weight 150 kg 154 kg Intake: IV 1016 926 468 .9 @ 20 80 240 50 Anidulafungin 100 mg In 100 100 Sodium Chloride 0.9% 100 ml @ 84 mls/hr IVPB DAILY [facility] Rx#:[id number] Cefepime 1 gm In Sodium 50 50 Chloride 0.9% 50 ml @ 12. 5 mls/hr IVPB Q12HR [facility] Rx#:[id number] Dextrose 5% in Water 1, 600 600 50 000 ml @ 50 mls/hr IV . Q23H [facility] with Sodium Bicarb (1 Meq/ml) 150 ml Rx#:[id number] Pressure bags 36 36 18 levETIRAcetam IV 500 mg 100 In Sodium Chloride 0.9% 100 ml @ 400 mls/hr IVPB DAILY [facility] Rx#:[id number] metroNIDAZOLE-NS PMX 500 200 100 mg In Saline 1 100ml.bag @ 100 mls/hr IVPB Q8HR [facility] Rx#:[id number] Intake, IV Titration 430.410 327.117 85 Amount Magnesium Sulfate-D5w Pmx 100 1 gm In Dextrose/Water 1 100ml.bag @ 100 mls/hr IVPB ONCE ONE Rx#: [id number] Norepinephrine 32 mg In 151.230 53.677 Sodium Chloride 0.9% 218 ml @ 0.05 MCG/KG/MIN 3. 246 mls/hr IV .Q24H [facility] Rx#:[id number] propofoL 1,000 mg In 279.18 173.44 85 Empty Bag 1 bag @ 5 MCG/ KG/MIN 4.08 mls/hr IV . Q24H [facility] Rx#:[id number] Tube Feeding 90 590 370 Hemodialysis 300 Other 90 60 Output: Gastric Drainage 295 Urine 460 243 120 Hemodialysis 1000 2000 Other: Voiding Method Indwelling Catheter Indwelling Catheter Indwelling Catheter ABP, PAP, CO, CI - Last Documented Arterial Blood Pressure 108/54 - Exam GENERAL DESCRIPTION: Middle-aged male intubated on the vent. LUNGS: Unlabored breathing. Decreased breath sound at the base HEART: S1, S2, regular rate and rhythm. No loud murmur ABDOMEN: Soft, no tenderness , guarding or rigidity, no organomegaly EXTREMITIES: Right foot wound is currently dressed no drainage on the dressing - Labs CBC & Chem 7: 02/14/22 04:18 02/14/22 04:18 Labs: Abnormal Lab Results - Last 24 Hours (Table) 02/14/22 02/14/22 02/14/22 Range/Units 00:20 04:18 04:18 WBC 16.2 H (3.8-10.6) k/uL RBC 3.31 L (4.30-5.90) m/uL Hgb 9.6 L (13.0-17.5) gm/dL Hct 29.9 L (39.0-53.0) % RDW 16.7 H (11.5-15.5) % Plt Count 124 L (150-450) k/uL Neutrophils # 13.1 H (1.3-7.7) k/uL ABG pO2 (83-108) mmHg ABG Total CO2 (19-24) mmol/L ABG O2 Saturation (94-97) % ABG Hematocrit (34.0-46.0) % Hemoglobin (13.0-17.5) gm/dL Sodium 135 L (137-145) mmol/L BUN 58 H (9-20) mg/dL Creatinine 4.44 H (0.66-1.25) mg/dL Glucose 159 H (74-99) mg/dL POC Glucose (mg/dL) 113 H (70-110) mg/dL Calcium 7.4 L (8.4-10.2) mg/dL C-Reactive Protein 6.3 H (<1.0) mg/dL 02/14/22 02/14/22 02/14/22 Range/Units 05:41 06:37 12:04 WBC (3.8-10.6) k/uL RBC (4.30-5.90) m/uL Hgb (13.0-17.5) gm/dL Hct (39.0-53.0) % RDW (11.5-15.5) % Plt Count (150-450) k/uL Neutrophils # (1.3-7.7) k/uL ABG pO2 68 L (83-108) mmHg ABG Total CO2 26 H (19-24) mmol/L ABG O2 Saturation 92.7 L (94-97) % ABG Hematocrit 29 L (34.0-46.0) % Hemoglobin 9.6 L (13.0-17.5) gm/dL Sodium (137-145) mmol/L BUN (9-20) mg/dL Creatinine (0.66-1.25) mg/dL Glucose (74-99) mg/dL POC Glucose (mg/dL) 142 H 171 H (70-110) mg/dL Calcium (8.4-10.2) mg/dL C-Reactive Protein (<1.0) mg/dL Assessment and Plan (1) Cellulitis Current Visit: Yes Status: Acute Code(s): L03.90 - CELLULITIS, UNSPECIFIED SNOMED Code(s): 773498971 Plan: 1patient with right foot unstageable pressure ulcer with surrounding necrotic area and cellulitis x-rays do not show any bony changes likely from gram- positive skin caleb and less likely gram-negative pathogen, patient is status post vascular surgery evaluation and debridement and deep cultureWhich has been finalized with strep and MSSA. 2-patient with MSSA bacteremia source is likely right foot infected pressure ulcer, Repeat blood culture has been negative 3Patient did have significant abnormality seen on the CT obtained by surgery wi th concern for possible fecal impaction and some inflammation of the colon and possible fistula. 4- patient sputum has been finalized with stenotrophomonas sensitive to Fortaz and should be covered with cefepime also showing Lynda albicans the patient did have persistent elevated white count and possible component of oropharyngeal candidiasis, patient to continue with Eraxis and cefepime 5- with a low-grade fever we'll repeat his blood culture and inflammation markers with a.m. lab Time with Patient: Less than 30
--- NOTE | 2022-02-14 15:50 | P.PN ---
Subjective Progress Note Date: 02/14/22 CHIEF COMPLAINT: Respiratory failure HISTORY OF PRESENT ILLNESS: The patient is a 61-year-old male who presents with chronic renal disease, fecal impaction, respiratory failure currently on full mechanical ventilation. Patient has feeding tube for protein malnutrition. He is status post fecal disimpaction. ROS: No reports of nausea and vomiting. No fevers or chills. PHYSICAL EXAM: VITAL SIGNS: Reviewed CONSTITUTIONAL: Well developed and in no acute distress. EYES: Conjuctivae without sclera icterus. HEAD, EARS, NOSE, THROAT: Moist buccal mucosa. Head is atraumatic, normocephalic RESPIRATORY: Full mechanical ventilation CARDIOVASCULAR: Palpable 2+ radial pulses. ABDOMEN: Gastrostomy tube intact with tube feeds MUSCULOSKELETAL: No gross deformity of the lower extremities noted. SKIN: Good skin turgor. Well perfused. NEUROLOGIC: Cranial nerves II through XII grossly intact. PSYCH: Sedated CLINICAL LABS: Reviewed. WBC elevated at 15.9-16.2, leukocytosis. ASSESSMENT: 1. Acute respiratory failure 2. Fecal impaction 3. Protein malnutrition status post gastrostomy tube placement PLAN: 1. Pending tracheostomy placement for respiratory failure 2. Tube feed goals per dietitian Objective - Vital Signs Vital signs: Vital Signs Temp 100.5 F H 02/14/22 12:00 Pulse 101 H 02/14/22 15:15 Resp 24 02/14/22 15:00 BP 132/75 02/14/22 07:00 Pulse Ox 97 02/14/22 15:00 FiO2 40 02/14/22 14:58 Intake & Output 02/13/22 02/14/22 02/14/22 18:59 06:59 18:59 Intake Total 3901.443 3373.117 1283 Output Total 0057 538 3108 Balance -103.708 7813.117 -837 Weight 150 kg 154 kg Intake: IV 1016 926 468 .9 @ 20 80 240 50 Anidulafungin 100 mg In 100 100 Sodium Chloride 0.9% 100 ml @ 84 mls/hr IVPB DAILY [facility] Rx#:[id number] Cefepime 1 gm In Sodium 50 50 Chloride 0.9% 50 ml @ 12. 5 mls/hr IVPB Q12HR [facility] Rx#:[id number] Dextrose 5% in Water 1, 600 600 50 000 ml @ 50 mls/hr IV . Q23H [facility] with Sodium Bicarb (1 Meq/ml) 150 ml Rx#:[id number] Pressure bags 36 36 18 levETIRAcetam IV 500 mg 100 In Sodium Chloride 0.9% 100 ml @ 400 mls/hr IVPB DAILY [facility] Rx#:[id number] metroNIDAZOLE-NS PMX 500 200 100 mg In Saline 1 100ml.bag @ 100 mls/hr IVPB Q8HR [facility] Rx#:[id number] Intake, IV Titration 430.410 327.117 85 Amount Magnesium Sulfate-D5w Pmx 100 1 gm In Dextrose/Water 1 100ml.bag @ 100 mls/hr IVPB ONCE ONE Rx#: [id number] Norepinephrine 32 mg In 151.230 53.677 Sodium Chloride 0.9% 218 ml @ 0.05 MCG/KG/MIN 3. 246 mls/hr IV .Q24H [facility] Rx#:[id number] propofoL 1,000 mg In 279.18 173.44 85 Empty Bag 1 bag @ 5 MCG/ KG/MIN 4.08 mls/hr IV . Q24H [facility] Rx#:[id number] Tube Feeding 90 590 370 Hemodialysis 300 Other 90 60 Output: Gastric Drainage 295 Urine 460 243 120 Hemodialysis 1000 2000 Other: Voiding Method Indwelling Catheter Indwelling Catheter Indwelling Catheter ABP, PAP, CO, CI - Last Documented Arterial Blood Pressure 108/54 - Labs CBC & Chem 7: 02/14/22 04:18 02/14/22 04:18 Labs: Abnormal Lab Results - Last 24 Hours (Table) 02/12/22 02/14/22 02/14/22 Range/Units 06:00 00:20 04:18 WBC (3.8-10.6) k/uL RBC (4.30-5.90) m/uL Hgb (13.0-17.5) gm/dL Hct (39.0-53.0) % RDW (11.5-15.5) % Plt Count (150-450) k/uL Neutrophils # (1.3-7.7) k/uL ABG pO2 (83-108) mmHg ABG Total CO2 (19-24) mmol/L ABG O2 Saturation (94-97) % ABG Hematocrit (34.0-46.0) % Hemoglobin (13.0-17.5) gm/dL Sodium 135 L (137-145) mmol/L BUN 58 H (9-20) mg/dL Creatinine 4.44 H (0.66-1.25) mg/dL Glucose 159 H (74-99) mg/dL POC Glucose (mg/dL) 113 H (70-110) mg/dL Calcium 7.4 L (8.4-10.2) mg/dL C-Reactive Protein 6.3 H (<1.0) mg/dL Albumin (PEP) 1.67 L (3.80-4.90) g/dL Gamma Globulins 0.54 L (0.70-1.50) g/dL 02/14/22 02/14/22 02/14/22 Range/Units 04:18 05:41 06:37 WBC 16.2 H (3.8-10.6) k/uL RBC 3.31 L (4.30-5.90) m/uL Hgb 9.6 L (13.0-17.5) gm/dL Hct 29.9 L (39.0-53.0) % RDW 16.7 H (11.5-15.5) % Plt Count 124 L (150-450) k/uL Neutrophils # 13.1 H (1.3-7.7) k/uL ABG pO2 68 L (83-108) mmHg ABG Total CO2 26 H (19-24) mmol/L ABG O2 Saturation 92.7 L (94-97) % ABG Hematocrit 29 L (34.0-46.0) % Hemoglobin 9.6 L (13.0-17.5) gm/dL Sodium (137-145) mmol/L BUN (9-20) mg/dL Creatinine (0.66-1.25) mg/dL Glucose (74-99) mg/dL POC Glucose (mg/dL) 142 H (70-110) mg/dL Calcium (8.4-10.2) mg/dL C-Reactive Protein (<1.0) mg/dL Albumin (PEP) (3.80-4.90) g/dL Gamma Globulins (0.70-1.50) g/dL 02/14/22 Range/Units 12:04 WBC (3.8-10.6) k/uL RBC (4.30-5.90) m/uL Hgb (13.0-17.5) gm/dL Hct (39.0-53.0) % RDW (11.5-15.5) % Plt Count (150-450) k/uL Neutrophils # (1.3-7.7) k/uL ABG pO2 (83-108) mmHg ABG Total CO2 (19-24) mmol/L ABG O2 Saturation (94-97) % ABG Hematocrit (34.0-46.0) % Hemoglobin (13.0-17.5) gm/dL Sodium (137-145) mmol/L BUN (9-20) mg/dL Creatinine (0.66-1.25) mg/dL Glucose (74-99) mg/dL POC Glucose (mg/dL) 171 H (70-110) mg/dL Calcium (8.4-10.2) mg/dL C-Reactive Protein (<1.0) mg/dL Albumin (PEP) (3.80-4.90) g/dL Gamma Globulins (0.70-1.50) g/dL
[2022-02-14 18:05] LABS: Glucose,Whole Blood 122 mg/dL (70-110)
[2022-02-14 20:49] LABS: Glucose,Whole Blood 130 mg/dL (70-110)
--- NOTE | 2022-02-14 22:39 | P.PN ---
Progress Note - Text Progress Note Date: 02/14/22 This is a 61-year-old patient who follows with Dr. Sridhar Chan. Chronic stable medical conditions include diabetes, hypertension, hyperlipidemia, chronic low back problems, cigarette smoker. At the baseline uses a walker. Patient slipped in the bathroom falling on his buttock. Was not able to get up. By the EMS report he had fallen 24 hours prior to the picking him up. Patient been complaining of pain in the right rib cage in the lower back. X-ray was negative for fracture. Patient continued to have significant pain especially with deep breathing. Patient also had a congestive cough and wheezing. Some bloody sputum. Denies any fever and chills. Patient also complaining of urina ry retention and requesting a Shepard catheter. at the bedside. No fever no chills. Orthopedics consulted for the same. Patient normally has a bowel movement once a week. Patient also has a wound on the right foot lateral part of the ankles for about a week. Ischemic changes. From rubbing against a bedpost. Patient's INR in the ER was greater than 10. Was given vitamin K. 10 mg Patient bit with Coumadin toxicity, given vitamin K, acute COPD exacerbation, uncontrolled atrial flutter put on Lopressor, right chest wall pain. Computed tomography scan lumbar spine and chest was ordered. Large wound on the right lateral malleolus-ID and vascular consulted.. IV cefepime. February 01: Patient yesterday to see refused his computed tomography scan of the chest and lumbar spine. Done today. Right-sided rib fractures, pulmonary contusion confirm. L1 vertebral body 30% wedge compression fracture. Patient's girlfriend the bedside. It was discussed in detail with her. Patient wanting again and again to pull out his NG tube. Requests the to stay with the patient. Patient is also had the dark aspirate from the stomach for which she has NG tube. Surgery was consulted for the same. Also this morning right foot wound was debrided by Dr. Ibarra from vascular. Wound base was relatively clean. No undermining or tunneling. February 02: Delirious. NG tube to suction. Has been in restraints because point NG TUBE several times. Mumbling to himself. Dressing over the right ankle. Not in distress. Ileus. Chest x-ray showing right lower lobe/atelectasis. February 03: Hospital computer system was down. Patient remains delirious. Nasal cannula. Lethargic. Family the bedside. Antibiotics. A. fib uncontrolled. EEG evidence of metabolic encephalopathy. No clear-cut epileptiform activity. Started on Keppra by neurology. February 04: ICU: Girlfriend at the bedside. In atrial fibrillation uncontrolled. On IV Cardizem and IV amiodarone. NG tube to suction. Patient lethargic. Multiple breathing. 2 L. Oxygen. February 05: ICU. Atrial fibrillation better controlled this morning. Cardizem discontinued. Patient respiratory status worsened this morning and patient is intubated. FiO2 45 and a PEEP of 5. Atrial fibrillation, controlled. Drips include amiodarone, propofol, levo fed. Discussed with girlfriend the bedside. Understands prognosis guarded. February 06: ICU: Ventilated. FiO2 45 and a PEEP of 5. NG tube is clamped. On IV propofol. Sedated. Heart rate better controlled. Was started on Coumadin yesterday. Worsening renal function. Nephrology consulted. 02/07/2022 Patient is currently in the MICU and on mechanical ventilator. Tidal volume of 400, FiO2 40% and PEEP of 5. Patient is off pressor support today. Currently on propofol and is also on tube feeding. Chest x-ray showed stable exam with stable support lines and tubes. Correlate for congestive heart failure. Patient was given a dose of IV Lasix. Laboratory data showed WBC 18.4 hemoglobin 11.6 and platelets 458 Sodium 141 potassium 3.7 chloride 103 bicarb is 18 BUN 49 and creatinine 3.73 and calcium 7.3. INR is 2.2. Patient is being followed by nephrology cardiology and critical care team. 02/08/2022 Patient is currently on mechanical ventilator and sedated with propofol. Assist control with FiO2 40% and tidal volume of 400 and PEEP of 5. Patient is being continued on antibiotics above cefepime and Flagyl. Sputum gram stain gram-negative bacilli and Lynda. Chest x-ray today showed findings suggestive of slightly worsening CHF exacerbation as there is cardiomegaly with mild to moderate central venous congestion and small to moderate-sized bilateral pleural effusion. Laboratory test showed WBC increased to 23.6 hemoglobin 9.1 and platelets 162 INR 3.0 Sodium 139 potassium 4.3 chloride 113 bicarb is 40 BUN 54 and creatinine worsening to 4.36 February 09: I resumed the care of patient today ICU: Med: 40/5. Received vitamin K 5 mg IV to bring the INR down for dialysis catheter. Drips include bicarbonate, propofol, epinephrine. Patient is a stage II coccyx is ulcer. Plan is to change the NG tube to on G-tube today. For possible colitis/fistula on antibiotics. at the bedside. February 10: ICU. Ventilator 50/5. Hemodialysis catheter placed last night. Hemodialyzed yesterday and getting dialyzed today. Remains in atrial fibrillation heart rate uncontrolled. Getting up sedation holiday. Drips include bicarbonate and norepinephrine. Propofol currently held. 2 feeding at 46 mL an hour. Does open eyes. February 11: ICU. Ventilator. 50/5. Third day for hemodialysis. 1.5 L to be removed today. Back on propofol. Drips include bicarbonate, norepinephrine, propofol. On G-tube feeding. Patient back in sinus rhythm. Bag and tracheostomy to planning for next week. 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 IV antifungal started by ID. February 12: ICU: Ventilator: 40/5. Telemetry shows sinus rhythm. Drips include propofol and norepinephrine. On G-tube feeding. Discussed with the at the bedside. Understands prognosis guarded. IV antibiotics and antifungals. February 13: ICU: Ventilator: 40/5. PEG tube placed yesterday by Dr. Cornejo. Drips include bicarbonate, propofol, norepinephrine. Getting hemodialysis done today. February 14: ICU: Medicated. 2 feeding at 65 mL an hour. This included propofol and norepinephrine. Hemodialysis done today. Sinus rhythm. Active Medications Acetaminophen (Acetaminophen Tab 325 Mg Tab) 650 mg PO Q6HR PRN PRN Reason: Mild Pain or Fever > 100.5 Albuterol/Ipratropium (Ipratropium-Albuterol 3 Ml Neb) 3 ml INHALATION RT-QID [facility] Last Admin: 02/14/22 19:06 Dose: 3 ml Amiodarone HCl (Amiodarone 200 Mg Tab) 200 mg PO BID [facility] Last Admin: 02/14/22 21:04 Dose: 200 mg Artificial Tears (Artificial Tears-Hypromellose Drops 15 Ml Btl) 2 drops BOTH EYES TID PRN PRN Reason: Dry Eye(s) Bisacodyl (Bisacodyl 10 Mg Supp) 10 mg RECTAL DAILY [facility] Last Admin: 02/14/22 09:05 Dose: 10 mg Budesonide (Budesonide 1 Mg/2 Ml Nebu) 1 mg INHALATION RT-BID [facility] Last Admin: 02/14/22 19:06 Dose: 1 mg Calcium Acetate (Calcium Acetate 667 Mg Tab) 667 mg PO BID-W/MEALS [facility] Last Admin: 02/14/22 17:16 Dose: 667 mg Calcium Carbonate/Glycine (Calcium Carbonate 500 Mg Chewable) 1,000 mg PO Q4HR PRN PRN Reason: Dyspepsia Last Admin: 01/31/22 14:29 Dose: 1,000 mg Chlorhexidine Gluconate (Chlorhexidine Gluconate 15 Ml Cup) 15 ml MUCOUS MEM BID [facility] Last Admin: 02/14/22 21:03 Dose: 15 ml Collagenase (Collagenase 250 Unit/Gm Ointment 30 Gm Tube) 1 applic TOPICAL DAILY [facility]; Protocol Last Admin: 02/14/22 09:06 Dose: 1 applic Dextrose/Water (Dextrose 50% Syringe 50 Ml) 25 ml IVP PER PROTOCOL PRN; Protocol PRN Reason: Hypoglycemia Last Admin: 02/06/22 18:11 Dose: 25 ml Dextrose/Water (Dextrose 50% Syringe 50 Ml) 50 ml IVP PER PROTOCOL PRN; Protocol PRN Reason: Hypoglycemia Hydromorphone HCl (Hydromorphone 0.5 Mg/0.5 Ml Syringe) 0.5 mg IVP Q3HR PRN PRN Reason: Pain Last Admin: 02/03/22 03:43 Dose: 0.5 mg Propofol 1,000 mg/ IV Solution 100 mls @ 4.08 mls/hr IV .Q24H [facility]; Protocol Last Admin: 02/14/22 18:02 Dose: 20 mcg/kg/min, 16.32 mls/hr Metronidazole 500 mg/ IV (Solution) 100 mls @ 100 mls/hr IVPB Q8HR [facility]; Protocol Last Admin: 02/14/22 17:16 Dose: 100 mls/hr Cefepime HCl 1 gm/ Sodium (Chloride) 50 mls @ 12.5 mls/hr IVPB Q12HR [facility] Last Admin: 02/14/22 21:03 Dose: 12.5 mls/hr Norepinephrine Bitartrate 32 (mg/ Sodium Chloride) 250 mls @ 3.246 mls/hr IV .Q24H [facility]; Protocol Last Titration: 02/14/22 21:35 Dose: 0.07 mcg/kg/min, 4.545 mls/hr Levetiracetam 500 mg/ Sodium (Chloride) 105 mls @ 400 mls/hr IVPB DAILY [facility] Last Admin: 02/14/22 09:05 Dose: 400 mls/hr Anidulafungin 100 mg/ Sodium (Chloride) 100 mls @ 84 mls/hr IVPB DAILY [facility]; Protocol Last Admin: 02/14/22 09:05 Dose: 84 mls/hr Insulin Aspart (Insulin Aspart (Novolog) 100 Unit/Ml Vial) 0 unit SQ Q6HR [facility]; Protocol Last Admin: 02/14/22 19:08 Dose: Not Given Insulin Detemir (Insulin Detemir (Levemir) 100 Unit/Ml Syr) 14 unit SQ HS [facility] Last Admin: 02/14/22 06:44 Dose: 14 unit Metoprolol Tartrate (Metoprolol Tartrate 25 Mg Tab) 25 mg PO BID [facility] Last Admin: 02/14/22 21:04 Dose: 25 mg Miscellaneous Information (Potassium Replacement Protocol 1 Each Misc) 1 each MISCELLANE DAILY PRN; Protocol PRN Reason: Per Protocol Miscellaneous Information (Magnesium Replacement Protocol 1 Each Misc) 1 each MISCELLANE DAILY PRN; Protocol PRN Reason: Per Protocol Morphine Sulfate (Morphine Oral Soln 10 Mg/5 Ml Cup) 15 mg PO Q12H [facility] Last Admin: 02/14/22 12:19 Dose: 15 mg Naloxone HCl (Naloxone 0.4 Mg/Ml 1 Ml Vial) 0.2 mg IV Q2M PRN PRN Reason: Opioid Reversal Ondansetron HCl (Ondansetron 4 Mg/2 Ml Vial) 4 mg IVP Q8HR PRN PRN Reason: Nausea And Vomiting Last Admin: 02/02/22 08:41 Dose: 4 mg Pantoprazole Sodium (Pantoprazole 40 Mg/10 Ml Vial) 40 mg IVP BID [facility] Last Admin: 02/14/22 21:03 Dose: 40 mg Pregabalin (Pregabalin 100 Mg Cap) 100 mg PO BID [facility] Last Admin: 02/14/22 21:04 Dose: 100 mg Sodium Bicarbonate (Sodium Bicarbonate Tab 650 Mg Tab) 1,300 mg PO QID [facility] Last Admin: 02/14/22 21:03 Dose: 1,300 mg Torsemide (Torsemide 20 Mg Tab) 40 mg PO DAILY [facility] Past medical history to include: COPD, diabetes, hypertension, hyperlipidemia, back problems, TB, atrial fibrillation, on Coumadin Social history: Smokes a pack a day for close to 50 years. Stop doing alcohol some time ago. Lives with his significant other Sandra. Does use a walker. 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 Conjunctiva normal. HEENT: External appearance of nose and ears normal, oral cavity dry, OG tube with tube feeding, endotracheal tube NECK: JVD not raised; masses not palpable. HEART: Heart sounds regular; mild edema. LUNGS: Respiratory rate increased; decreased breath sound, ABDOMEN: Soft, distended, nontender, liver spleen not palpable, no masses palpable. PEG tube. PSYCH: Unable to assess, patient lethargic DERMATOLOGICAL: Wound on right ankle lateral malleolus. Under dressing. Stage II coccygeal breakdown. See nursing notes INVESTIGATIONS, reviewed in the clinical context: February 14: WBC 16.2 hemoglobin 9.6 potassium 4.6 creatinine 4.44 February 13: Potassium 4.7 BUN 66 creatinine 4.5 February 12: WBC 15.9 hemoglobin 9.9 platelets 149 potassium 4.4 BUN 57 creatinine 4.33 Acute hepatitis screen: Negative Complement C3 78, complement C4 19.6 February 11: Sodium 138 potassium 4.4 creatinine 4.19 Sputum: Stenostrophonas maltophilia, Lynda albicans Computed tomography scan abdomen and pelvis [February 06] 6 mm stone in the right renal collecting system. Some circumferential wall thickening of the cecum and ascending colon. Distention of the rectum 7.5 cm with solid stool. EEG: Evidence of encephalopathy. No obvious epileptiform activity. 2-D echocardiogram: EF 60-65%. Renal ultrasound: Shows bilateral normal cortical medullary thickness. February 01: WBC 17.1 hemoglobin 14.8 UA: Blood large, leukoesterase moderate WBC 28 nitrite negative Lumbar spine CT: Anterior wedge compression deformity of L1. Multiple level DJD. 7 mm calculus right renal pelvis. CT chest without contrast: Right lateral eighth through 10th rib fractures with associated gas trace hemothorax right lower lobe pulmonary co ntusion/atelectasis. Patchy) disease left upper lobe. WBC 25.8 hemoglobin 14.1 platelets 217 INR greater than 10 sodium 131 potassium 3.9. 24 creatinine 1.8 to EKG tracing personally reviewed by me-atrial flutter. Rate 132 Foot/Lumbar/sacral coccyx: Spondylitic changes. No fracture. Chest x-ray film personally reviewed by me-clinically. Possible hyperinflation Assessment and plan: -Coumadin toxicity. INR greater than 10. On presentation: 10 mg vitamin K in the ER. Hemoptysis on presentation. Coumadin resumed on February 05.. - right lung contusion.-Secondary to fall. hemoptysis on presentation -Pneumonia, secondary to Stenostrophonas maltophilia, Lynda albicans: Slow to respond IV cefepime, IV anidulafungin -Sepsis with positive blood cultures MSSA, likely source right ankle. From January 31. IV cefepime. February 04 blood culture negative -Acute hypoxic respiratory failure, multifactorial: ventilator support,: Slow to respond Patient intubated on February 05 -Acute COPD exacerbation, with chronic bronchitis component in a current smoker: Slow to respond DuoNeb. Nebulized Pulmicort. Mucinex. -Chronic nicotine dependence, cigarette smoker Nicotine patch -Paroxysmal atrial flutter,: Back in sinus rhythm Lopressor 50 mg 3 times a day. 2-D echocardiogram unremarkable. Oral amiodarone Coumadin started on February 05 -Possible CK D with possible acute component. creatinine was 0.8 in April 2019. Renal ultrasound unremarkable. UA shows trace protein. IV fluids.. -Acute kidney injury, ATN, likely cardiorenal syndrome.: Not improving Follow with nephrology. Daily Hemodialysis started February 09 -Acute right-sided 8-10 ribs fracture secondary to fall K pad -Diabetes mellitus type 2, chronically on oral hypoglycemic Hold Glucotrol. Sliding scale insulin. Levemir 14 units daily at bedtime -Diabetic peripheral neuropathy Decreased dose of Lyrica in the setting of renal failure. 100 mg twice a day -Chronic low back pain: MS Contin 15 mg every 12, Burnham 7.5 twice a day when necessary -Anxiety depression not otherwise specified Wellbutrin XL 100 mg twice a day -Hyperlipidemia Lipitor 40 mg daily at bedtime -Right ankle lateral, diabetic wound, stage II acute. Wound culture positive for Streptococcus agalactiae and Staphylococcus aureus. IV Ancef initially. Follow with ID Patient has poor distal pulses. February 01 wound was debrided by Dr. Ibarra. Clean base. -Acute L1 30% wedge fracture secondary to fall LSO brace. Be followed by Dr. Damon -Acute delirium multifactorial. Slow to respond -Acute ileus, NG tube for decompression.; clamped.: Corrected Being followed by surgery. -Possible colitis /fistula on computed tomography scan. IV Flagyl. Cefepime. Followed by surgery . IV propofol, IV norepinephrine. IV Flagyl,/IV cefepime/IV anidulafungin. Hemodialysis done today. Has a PEG tube. Tracheostomy for Wednesday. Prognosis guarded
[2022-02-15] LABS: Glucose,Whole Blood 114 mg/dL (70-110)
[2022-02-15] MEDS: MORPHINE ORAL SOLN 10 MG/5 ML CUP PO SCH ×2 (00:44→12:34)
[2022-02-15] MEDS: metroNIDAZOLE-NS PMX 500 MG in SALINE 1 100ML.BAG IVPB SCH ×3 (00:45→15:25)
[2022-02-15] MEDS: NOREPINEPHRINE 32 MG in SODIUM CHLORIDE 0.9% 218 ML IV SCH ×2 (00:45→12:34)
[2022-02-15 00:50] LABS: Glucose,Whole Blood 129 mg/dL (70-110)
[2022-02-15] MEDS: HYDROmorphone 0.5 MG/0.5 ML SYRINGE IVP PRN (04:59)
[2022-02-15 05:21] LABS: ABG Base Excess 0.5 mmol/L; ABG HCO3 25 mmol/L (21-25); ABG Hematocrit 29 % (34.0-46.0); ABG PCO2 42 mmHg (35-45); ABG PH 7.39 (7.35-7.45); ABG PO2 66 mmHg (83-108); ABG TCO2 27 mmol/L (19-24)
[2022-02-15 05:28] LABS: Allen Test Performed? no
[2022-02-15 05:39] LABS: C Reactive Protein 5.5 mg/dL (<1.0); Calcium 7.4 mg/dL (8.4-10.2); INR 1.1 (<1.2); Magnesium 1.9 mg/dL (1.6-2.3); Potassium 4.4 mmol/L (3.5-5.1); Prothrombin Time 11.5 sec (9.0-12.0)
--- NOTE | 2022-02-15 06:00 | XR ---
EXAMINATION TYPE: XR chest 1V portable DATE OF EXAM: 02/15/2022 COMPARISON: 02/14/2022 HISTORY: Respiratory failure TECHNIQUE: FINDINGS: The endotracheal tube is 6.5 cm from the jodi. There is right subclavian catheter with ti p in the superior vena cava. There is bilateral blunting of the costophrenic angles. There is pulmona ry interstitial edema. There are chest leads. IMPRESSION: Bilateral pleural effusions and pulmonary edema appears slightly worse than exam venkata hull
[2022-02-15 06:01] LABS: Glucose,Whole Blood 156 mg/dL (70-110)
[2022-02-15 06:02] LABS: Anisocytosis Slight; HCT 30.1 % (39.0-53.0); HGB 9.6 gm/dL (13.0-17.5); Hypochromasia Slight; MCHC 31.8 g/dL (31.0-37.0); MCV 91.4 fL (80.0-100.0); Mean Platelet Volume 12.4; RDW 17.5 % (11.5-15.5); WBC 13.9 k/uL (3.8-10.6)
[2022-02-15] MEDS: INSULIN ASPART (NovoLOG) 100 UNIT/ML VIAL SQ SCH ×4 (06:03→17:37)
[2022-02-15] MEDS: INSULIN DETEMIR (LEVEMIR) 100 UNIT/ML SYR SQ SCH ×2 (06:03→22:04)
[2022-02-15 06:59] LABS: Band Neutrophils % 2 %; Eosinophils # (M) 0.28 k/uL (0-0.7); Lymphocytes # (M) 1.39 k/uL (1.0-4.8); Monocytes # (M) 0.83 k/uL (0-1.0); Neutrophils % (M) 80 %; Nucleated Red Blood Cells 0 /100 WBC (0-0); Total Cells Counted 100
[2022-02-15 07:02] LABS: Polychromasia Present
[2022-02-15 07:04] LABS: Large Platelets Present; Poikilocytosis (M) Present
[2022-02-15 07:05] LABS: Platelet Count 96 k/uL (150-450)
[2022-02-15] MEDS: CALCIUM ACETATE 667 MG TAB PO SCH ×2 (07:27→17:37)
--- NOTE | 2022-02-15 07:43 | P.PN ---
Subjective Progress Note Date: 02/15/22 Principal diagnosis: Persistent atrial fibrillation This is a 61-year-old gentleman who was admitted to the hospital with acute on chronic respiratory failure as well as metabolic encephalopathy and septic shock. We involved in the care of the patient for the management of persistent atrial fibrillation. February 112021 The patient was seen this morning. He remains intubated on mechanical ventilation. He remains hemodynamically unstable and requiring vasopressors was norepinephrine. He has been in and out atrial fibrillation. He is currently on amiodarone. Once he goes to atrial fibrillation the heart rate has been under good control. Metoprolol is on hold at this point in the light off hypotension requiring vasopressors. INR today is 1.3 I'm going to give the patient 4 mg of Coumadin today and recheck the INR tomorrow. He underwent dialysis yesterday and during dialysis he was a slightly tachycardic. February 122021 The patient was seen this morning. He remains intubated on mechanical ventilation. He remains also unstable hemodynamically and requiring small dose of norepinephrine. Coumadin is on hold at this point because the patient p otentially going to undergo a PEG tube and tracheostomy Q placement later on. He has been with Mukul harris with controlled heart rate on the current dose of amiodarone. Beta donovan is on hold at this point. February 132021 The patient was seen this morning. He remains in respiratory failure. He underwent yesterday a PEG tube placement. He remains in atrial fibrillation overall with controlled heart rate on the current dose of amiodarone. Beta donovan is on hold at this point in the light of low blood pressure required norepinephrine. At this point we'll continue the current medical regimen and follow-up with the patient February 142021 The patient was seen this morning. He remains intubated on mechanical ventilation. He underwent PIC tube placement yesterday and he is in process of having a tracheostomy this coming Wednesday. On examination he seems to be hypervolemic. He does have bilateral lower extremities edema and the chest x- ray showed bilateral pleural effusion. He still norepinephrine. He continues to be in atrial fibrillation was controlled heart rate. There and output has been marginal. I'm going to the patient 40 mg of Lasix IV once. February 152021 The patient was seen and evaluated this morning. He continues to be intubated on mechanical ventilation is going to undergo tracheostomy placement tomorrow. Hemodynamically he continues to be unstable and requiring small dose of norepinephrine. Yesterday he was given Lasix was no urine output. He continues to be in atrial fibrillation was controlled heart rate. From the cardiovascular standpoint of view, we will continue the current medical regimen. The atrial fibrillation has been controlled on the current dose of amiodarone. He needs to be started on oral anticoagulation tomorrow after he undergo the tracheostomy placement. No need for any further cardiac workup and will follow-up with the patient on when necessary. The chest x-ray was reviewed and showed bilateral pleural effusion but as a mentioned yesterday he did not respond to diuretics and he has been having dialysis. Objective - Vital Signs Vital signs: Vital Signs Temp 99.8 F H 02/15/22 04:00 Pulse 97 02/15/22 07:00 Resp 24 02/15/22 07:00 BP 119/62 02/15/22 07:00 Pulse Ox 95 02/15/22 07:00 FiO2 40 02/15/22 07:12 Intake & Output 02/14/22 02/15/22 02/15/22 18:59 06:59 18:59 Intake Total 2167.876 1191.069 78 Output Total 2265 235 15 Balance -97.124 956.069 63 Weight 154.1 kg Intake: IV 649 293 13 .9 @ 20 110 0.9% Sodium Chloride @ 110 10 10mls/hr Anidulafungin 100 mg In 100 Sodium Chloride 0.9% 100 ml @ 84 mls/hr IVPB DAILY [facility] Rx#:[id number] Cefepime 1 gm In Sodium 50 50 Chloride 0.9% 50 ml @ 12. 5 mls/hr IVPB Q12HR [facility] Rx#:[id number] Dextrose 5% in Water 1, 50 000 ml @ 50 mls/hr IV . Q23H [facility] with Sodium Bicarb (1 Meq/ml) 150 ml Rx#:[id number] Pressure bags 39 33 3 levETIRAcetam IV 500 mg 100 In Sodium Chloride 0.9% 100 ml @ 400 mls/hr IVPB DAILY [facility] Rx#:[id number] metroNIDAZOLE-NS PMX 500 200 100 mg In Saline 1 100ml.bag @ 100 mls/hr IVPB Q8HR [facility] Rx#:[id number] Intake, IV Titration 303.876 33.069 Amount Norepinephrine 32 mg In 119.732 33.069 Sodium Chloride 0.9% 218 ml @ 0.05 MCG/KG/MIN 3. 246 mls/hr IV .Q24H [facility] Rx#:[id number] propofoL 1,000 mg In 184.144 Empty Bag 1 bag @ 5 MCG/ KG/MIN 4.08 mls/hr IV . Q24H [facility] Rx#:[id number] Tube Feeding 825 715 65 Hemodialysis 300 Other 90 150 Output: Urine 265 235 15 Hemodialysis 1999 Other: Voiding Method Indwelling Catheter Indwelling Catheter ABP, PAP, CO, CI - Last Documented Arterial Blood Pressure 119/52 - Constitutional General appearance: Present: no acute distress - Respiratory Respiratory: bilateral: diminished - Cardiovascular Rhythm: irregularly irregular Abnormal Heart Sounds: Present: systolic murmur - Labs CBC & Chem 7: 02/15/22 04:31 02/15/22 04:31 Labs: Abnormal Lab Results - Last 24 Hours (Table) 02/12/22 02/14/22 02/14/22 Range/Units 06:00 12:04 18:03 WBC (3.8-10.6) k/uL RBC (4.30-5.90) m/uL Hgb (13.0-17.5) gm/dL Hct (39.0-53.0) % RDW (11.5-15.5) % Plt Count (150-450) k/uL Neutrophils # (Manual) (1.3-7.7) k/uL ABG pO2 (83-108) mmHg ABG Total CO2 (19-24) mmol/L ABG O2 Saturation (94-97) % ABG Hematocrit (34.0-46.0) % Hemoglobin (13.0-17.5) gm/dL Sodium (137-145) mmol/L Chloride (98-107) mmol/L BUN (9-20) mg/dL Creatinine (0.66-1.25) mg/dL Glucose (74-99) mg/dL POC Glucose (mg/dL) 171 H 122 H (70-110) mg/dL Calcium (8.4-10.2) mg/dL C-Reactive Protein (<1.0) mg/dL Albumin (PEP) 1.67 L (3.80-4.90) g/dL Gamma Globulins 0.54 L (0.70-1.50) g/dL 02/14/22 02/14/22 02/15/22 Range/Units 20:47 23:58 00:48 WBC (3.8-10.6) k/uL RBC (4.30-5.90) m/uL Hgb (13.0-17.5) gm/dL Hct (39.0-53.0) % RDW (11.5-15.5) % Plt Count (150-450) k/uL Neutrophils # (Manual) (1.3-7.7) k/uL ABG pO2 (83-108) mmHg ABG Total CO2 (19-24) mmol/L ABG O2 Saturation (94-97) % ABG Hematocrit (34.0-46.0) % Hemoglobin (13.0-17.5) gm/dL Sodium (137-145) mmol/L Chloride (98-107) mmol/L BUN (9-20) mg/dL Creatinine (0.66-1.25) mg/dL Glucose (74-99) mg/dL POC Glucose (mg/dL) 130 H 114 H 129 H (70-110) mg/dL Calcium (8.4-10.2) mg/dL C-Reactive Protein (<1.0) mg/dL Albumin (PEP) (3.80-4.90) g/dL Gamma Globulins (0.70-1.50) g/dL 02/15/22 02/15/22 02/15/22 Range/Units 04:31 04:31 05:18 WBC 13.9 H (3.8-10.6) k/uL RBC 3.30 L (4.30-5.90) m/uL Hgb 9.6 L (13.0-17.5) gm/dL Hct 30.1 L (39.0-53.0) % RDW 17.5 H (11.5-15.5) % Plt Count 96 L (150-450) k/uL Neutrophils # (Manual) 11.30 H (1.3-7.7) k/uL ABG pO2 66 L (83-108) mmHg ABG Total CO2 27 H (19-24) mmol/L ABG O2 Saturation 92.0 L (94-97) % ABG Hematocrit 29 L (34.0-46.0) % Hemoglobin 9.4 L (13.0-17.5) gm/dL Sodium 134 L (137-145) mmol/L Chloride 96 L (98-107) mmol/L BUN 59 H (9-20) mg/dL Creatinine 4.21 H (0.66-1.25) mg/dL Glucose 137 H (74-99) mg/dL POC Glucose (mg/dL) (70-110) mg/dL Calcium 7.4 L (8.4-10.2) mg/dL C-Reactive Protein 5.5 H (<1.0) mg/dL Albumin (PEP) (3.80-4.90) g/dL Gamma Globulins (0.70-1.50) g/dL 02/15/22 Range/Units 06:00 WBC (3.8-10.6) k/uL RBC (4.30-5.90) m/uL Hgb (13.0-17.5) gm/dL Hct (39.0-53.0) % RDW (11.5-15.5) % Plt Count (150-450) k/uL Neutrophils # (Manual) (1.3-7.7) k/uL ABG pO2 (83-108) mmHg ABG Total CO2 (19-24) mmol/L ABG O2 Saturation (94-97) % ABG Hematocrit (34.0-46.0) % Hemoglobin (13.0-17.5) gm/dL Sodium (137-145) mmol/L Chloride (98-107) mmol/L BUN (9-20) mg/dL Creatinine (0.66-1.25) mg/dL Glucose (74-99) mg/dL POC Glucose (mg/dL) 156 H (70-110) mg/dL Calcium (8.4-10.2) mg/dL C-Reactive Protein (<1.0) mg/dL Albumin (PEP) (3.80-4.90) g/dL Gamma Globulins (0.70-1.50) g/dL Microbiology - Last 24 Hours (Table) 02/14/22 04:33 Blood Culture - Preliminary Blood No Growth after 24 hours Assessment and Plan Assessment: Assessment Acute on chronic respiratory failure Metabolic encephalopathy Septic shock Persistent atrial fibrillation Renal failure Fluid overload Plan Continue the current dose of amiodarone Restart the patient back on Coumadin once he undergo the tracheostomy Follow-up with the patient on when necessary
[2022-02-15] MEDS: BUDESONIDE 1 MG/2 ML NEBU INHALATION SCH ×2 (07:51→18:46)
[2022-02-15] MEDS: IPRATROPIUM-ALBUTEROL 3 ML NEB INHALATION SCH ×4 (07:51→18:46)
--- NOTE | 2022-02-15 09:23 | P.PN ---
Subjective Patient is seen in follow-up for acute kidney injury. Started on hemodialysis 02/09/2022. Intubated. On Levophed. Receiving tube feeds. Acidosis improved. Urine output about 15-25 mL an hour. Tracheostomy tomorrow. Vital signs are stable. On Levophed. General: Resting in bed. HEENT: Intubated. LUNGS: Breath sounds decreased. HEART: Rate and Rhythm are regular. ABDOMEN: Soft, no distention. EXTREMITITES: 1+ edema. Objective - Vital Signs Vital signs: Vital Signs Temp 99.5 F 02/15/22 08:00 Pulse 80 02/15/22 08:06 Resp 24 02/15/22 08:00 BP 119/62 02/15/22 07:00 Pulse Ox 95 02/15/22 08:00 FiO2 40 02/15/22 08:00 Intake & Output 02/14/22 02/15/22 02/15/22 18:59 06:59 18:59 Intake Total 2167.876 1191.069 78 Output Total 2265 235 15 Balance -97.124 956.069 63 Weight 154.1 kg Intake: IV 649 293 13 .9 @ 20 110 0.9% Sodium Chloride @ 110 10 10mls/hr Anidulafungin 100 mg In 100 Sodium Chloride 0.9% 100 ml @ 84 mls/hr IVPB DAILY [facility] Rx#:[id number] Cefepime 1 gm In Sodium 50 50 Chloride 0.9% 50 ml @ 12. 5 mls/hr IVPB Q12HR [facility] Rx#:[id number] Dextrose 5% in Water 1, 50 000 ml @ 50 mls/hr IV . Q23H [facility] with Sodium Bicarb (1 Meq/ml) 150 ml Rx#:[id number] Pressure bags 39 33 3 levETIRAcetam IV 500 mg 100 In Sodium Chloride 0.9% 100 ml @ 400 mls/hr IVPB DAILY [facility] Rx#:[id number] metroNIDAZOLE-NS PMX 500 200 100 mg In Saline 1 100ml.bag @ 100 mls/hr IVPB Q8HR [facility] Rx#:[id number] Intake, IV Titration 303.876 33.069 Amount Norepinephrine 32 mg In 119.732 33.069 Sodium Chloride 0.9% 218 ml @ 0.05 MCG/KG/MIN 3. 246 mls/hr IV .Q24H [facility] Rx#:[id number] propofoL 1,000 mg In 184.144 Empty Bag 1 bag @ 5 MCG/ KG/MIN 4.08 mls/hr IV . Q24H [facility] Rx#:[id number] Tube Feeding 825 715 65 Hemodialysis 300 Other 90 150 Output: Urine 265 235 15 Hemodialysis 2000 Other: Voiding Method Indwelling Catheter Indwelling Catheter Indwelling Catheter ABP, PAP, CO, CI - Last Documented Arterial Blood Pressure 129/54 - Labs CBC & Chem 7: 02/15/22 04:31 02/15/22 04:31 Labs: Abnormal Lab Results - Last 24 Hours (Table) 02/12/22 02/14/22 02/14/22 Range/Units 06:00 12:04 18:03 WBC (3.8-10.6) k/uL RBC (4.30-5.90) m/uL Hgb (13.0-17.5) gm/dL Hct (39.0-53.0) % RDW (11.5-15.5) % Plt Count (150-450) k/uL Neutrophils # (Manual) (1.3-7.7) k/uL ABG pO2 (83-108) mmHg ABG Total CO2 (19-24) mmol/L ABG O2 Saturation (94-97) % ABG Hematocrit (34.0-46.0) % Hemoglobin (13.0-17.5) gm/dL Sodium (137-145) mmol/L Chloride (98-107) mmol/L BUN (9-20) mg/dL Creatinine (0.66-1.25) mg/dL Glucose (74-99) mg/dL POC Glucose (mg/dL) 171 H 122 H (70-110) mg/dL Calcium (8.4-10.2) mg/dL C-Reactive Protein (<1.0) mg/dL Albumin (PEP) 1.67 L (3.80-4.90) g/dL Gamma Globulins 0.54 L (0.70-1.50) g/dL 02/14/22 02/14/22 02/15/22 Range/Units 20:47 23:58 00:48 WBC (3.8-10.6) k/uL RBC (4.30-5.90) m/uL Hgb (13.0-17.5) gm/dL Hct (39.0-53.0) % RDW (11.5-15.5) % Plt Count (150-450) k/uL Neutrophils # (Manual) (1.3-7.7) k/uL ABG pO2 (83-108) mmHg ABG Total CO2 (19-24) mmol/L ABG O2 Saturation (94-97) % ABG Hematocrit (34.0-46.0) % Hemoglobin (13.0-17.5) gm/dL Sodium (137-145) mmol/L Chloride (98-107) mmol/L BUN (9-20) mg/dL Creatinine (0.66-1.25) mg/dL Glucose (74-99) mg/dL POC Glucose (mg/dL) 130 H 114 H 129 H (70-110) mg/dL Calcium (8.4-10.2) mg/dL C-Reactive Protein (<1.0) mg/dL Albumin (PEP) (3.80-4.90) g/dL Gamma Globulins (0.70-1.50) g/dL 02/15/22 02/15/22 02/15/22 Range/Units 04:31 04:31 05:18 WBC 13.9 H (3.8-10.6) k/uL RBC 3.30 L (4.30-5.90) m/uL Hgb 9.6 L (13.0-17.5) gm/dL Hct 30.1 L (39.0-53.0) % RDW 17.5 H (11.5-15.5) % Plt Count 96 L (150-450) k/uL Neutrophils # (Manual) 11.30 H (1.3-7.7) k/uL ABG pO2 66 L (83-108) mmHg ABG Total CO2 27 H (19-24) mmol/L ABG O2 Saturation 92.0 L (94-97) % ABG Hematocrit 29 L (34.0-46.0) % Hemoglobin 9.4 L (13.0-17.5) gm/dL Sodium 134 L (137-145) mmol/L Chloride 96 L (98-107) mmol/L BUN 59 H (9-20) mg/dL Creatinine 4.21 H (0.66-1.25) mg/dL Glucose 137 H (74-99) mg/dL POC Glucose (mg/dL) (70-110) mg/dL Calcium 7.4 L (8.4-10.2) mg/dL C-Reactive Protein 5.5 H (<1.0) mg/dL Albumin (PEP) (3.80-4.90) g/dL Gamma Globulins (0.70-1.50) g/dL 02/15/22 Range/Units 06:00 WBC (3.8-10.6) k/uL RBC (4.30-5.90) m/uL Hgb (13.0-17.5) gm/dL Hct (39.0-53.0) % RDW (11.5-15.5) % Plt Count (150-450) k/uL Neutrophils # (Manual) (1.3-7.7) k/uL ABG pO2 (83-108) mmHg ABG Total CO2 (19-24) mmol/L ABG O2 Saturation (94-97) % ABG Hematocrit (34.0-46.0) % Hemoglobin (13.0-17.5) gm/dL Sodium (137-145) mmol/L Chloride (98-107) mmol/L BUN (9-20) mg/dL Creatinine (0.66-1.25) mg/dL Glucose (74-99) mg/dL POC Glucose (mg/dL) 156 H (70-110) mg/dL Calcium (8.4-10.2) mg/dL C-Reactive Protein (<1.0) mg/dL Albumin (PEP) (3.80-4.90) g/dL Gamma Globulins (0.70-1.50) g/dL Microbiology - Last 24 Hours (Table) 02/14/22 04:33 Blood Culture - Preliminary Blood No Growth after 24 hours Assessment and Plan Plan: Assessment: 1. Acute kidney injury secondary to ATN secondary to septic shock. Started on hemodialysis 02/09/2022. Urine output stable at 15-25 mL an hour. Creatinine in April 2019 was 0.8. Creatinine was as low as 1.62 this admission. No hydronephrosis noted on CAT scan. 2. MSSA bacteremia with likely source being right foot ulcer. ID following. On antibiotics. 3. A. fib. Cardiology following. 4. Metabolic acidosis secondary to acute kidney injury. s/p bicarb drip. On po bicarb. Better. 5. Diabetes mellitus. 6. Hyperphosphatemia secondary to acute kidney injury. On PhosLo. 7. Volume overload. Improved with ultrafiltration. Plan: hemodialysis tomorrow. maintain Demadex. Maintain tube feeds. Wean FiO2 and vasopressors. Continue to monitor for renal recovery. Follow-up serologies. C3 slightly low. Tracheostomy Wednesday.
[2022-02-15] MEDS: levETIRAcetam IV 500 MG in SODIUM CHLORIDE 0.9% 100 ML IVPB SCH (09:34)
[2022-02-15] MEDS: CHLORHEXIDINE GLUCONATE 15 ML CUP MUCOUS MEM SCH ×2 (09:34→20:55)
[2022-02-15] MEDS: PANTOPRAZOLE 40 MG/10 ML VIAL IVP SCH ×2 (09:34→20:54)
[2022-02-15] MEDS: PREGABALIN 100 MG CAP PO SCH ×2 (09:35→20:54)
[2022-02-15] MEDS: bisacodyL 10 MG SUPP RECTAL SCH (09:35)
[2022-02-15] MEDS: SODIUM BICARBONATE TAB 650 MG TAB PO SCH ×4 (09:35→22:07)
[2022-02-15] MEDS: CEFEPIME 1 GM in SODIUM CHLORIDE 0.9% 50 ML IVPB SCH ×2 (09:35→20:55)
[2022-02-15] MEDS: AMIODARONE 200 MG TAB PO SCH ×2 (09:35→20:54)
[2022-02-15] MEDS: METOPROLOL TARTRATE 25 MG TAB PO SCH ×2 (09:35→20:54)
[2022-02-15] MEDS: TORSEMIDE 20 MG TAB PO SCH (09:35)
[2022-02-15] MEDS: ANIDULAFUNGIN 100 MG in SODIUM CHLORIDE 0.9% 100 ML IVPB SCH (09:35)
[2022-02-15] MEDS: COLLAGENASE 250 UNIT/GM OINTMENT 30 GM TUBE TOPICAL SCH (09:36)
--- NOTE | 2022-02-15 10:03 | P.PN ---
Subjective Progress Note Date: 02/15/22 Principal diagnosis: Respiratory failure. Patient was reevaluated today on 02/06/22, remains in the ICU, intubated and mechanically ventilated. Patient is sedated, his ventilator settings are assist control rate of 24 tidal volume 500 FiO2 45% and PEEP of 5. ABG showed a pO2 of 85 pCO2 37 pH of 7.37 patient had worsening urine output and worsening renal status overnight, received almost 4 L of fluids, continue to have low urine output and this morning he received 80 mg of Lasix IV push. CVP continues to read the low below 7. His endotracheal tube was noted to be sitting high in the trachea and it will be advanced about 3 cm. Patient remains on propofol at 40 mcg/kg/m IV fluids/normal saline at 100 mL per hour norepinephrine at 0.02 mcg/kg/m today I recommended a nephrology consultation and the patient will be undergoing CT of the abdomen for ileus. The CT of the abdomen showed mild to moderate circumferential wall thickening of the cecum and ascending colon pos sible nonspecific infectious or inflammatory colitis. There was also distention of the rectum up to 7.5 cm with solid stool. Patient is developing fecal impaction. There is also the possibility of perianal fistula noted on the CT of the abdomen and pelvis. Blood cultures from 97 and 98 are negative so far. Previous blood cultures from 01/31 hence 02/01 were positive for staph aureus Patient was reevaluated today on 02/07/22, patient remains in the ICU, intubated and mechanically ventilated. Patient is on assist control rate of 24 tidal volume 500 FiO2 45% PEEP of 5 ABG showed a pO2 of 79 pCO2 36 pH of 7.33. Continues to have very low urine output, renal functioning seems to be getting worse, and nephrology as on consultation, today I cut down his IV fluid to 50 mL/h and I gave him a dose of Lasix 80 mg IV push. Again his urine output is extremely marginal. Patient is off norepinephrine today blood pressure seems to be better controlled. He is on propofol at 30 mcg/kg/m IV fluid cut down to 50 mL/h and he is on tube feeding. No changes were made today for his ventilator settings chest x-ray continues to show small bilateral patchy airspace disease, and possibly some component of pleural effusion is noted bilaterally. WBC count is 18.5 hemoglobin 11.6. INR is 2.2 electrolytes are normal bicarb is 18 BUN is 49, and 3.73 creatinine up from yesterday Patient was reevaluated today on , remains in the ICU intubated mechanically ventilated, sedated, his ventilator settings are assist control rate 24 tidal volume 500 FiO2 40% PEEP of 5 ABG showed a pO2 of 95 pCO2 34 pH of 7.28, reflecting a mild metabolic acidosis most likely secondary to his worsening renal failure his creatinine is up to 4.36 today. Patient does respond to diuretics, however I believe the patient is clinically dry, and I'm recommending fluid boluses today, 500 mL of saline intermittently patient has a good urine output, especially after Lasix. Otherwise his urine output is poor. CVP remains low, chest x-ray is showing improvement in his fluid overload, hence I'm recommending fluid boluses to be given today. Patient remains on antibiotics for his MSSA infection he is on cefepime is also on Flagyl. Today I'm recommending that the patient goes off propofol and to be able to get adeq uate mental assessment. He is requiring to small dose of norepinephrine 0.05 mcg/kg/m, and I'm hoping with fluid boluses we could potentially discontinue norepinephrine today. Again chest x-ray is showing slight improvement. And I plan to stop propofol today. Patient was seen by nephrology and considering starting hemodialysis in the next 24 or 48 hours. They are consulting vascular surgery for dialysis catheter placement. WBC count today is 23.6 hemoglobin is 11.1 INR is 3.0 electrolytes are normal except for low bicarb of 14, BUN is 54 creatinine 4.36. Progress note dated 02/09/2022. This is a 61-year-old male who was admitted on January 31, for atrial fibrillation and cellulitis. On February 05, he was intubated for respiratory failure. The patient remains on the ventilator. Currently, she is on the volume assist control, with a rate of 24, tidal volume 500, FiO2 40%, and PEEP of 5. Arterial blood gases show pO2 of 90, pCO2 pH of 7.21. His blood gases are consistent with metabolic acidosis. The patient will be started on a bicarbonate drip, with 3 ampules of sodium bicarbonate and D5W at 50 mL an hour. The patient is also on norepinephrine at 21 mcg/m, and propofol at 40 mcg/kg/m. The patient's getting vital HP at 33 mL an hour, which is goal. The patient remains on Flagyl and cefepime. A hemodialysis catheter will be placed today. White count 26.5, hemoglobin 11.7, hematocrit 40, and platelet count 201,000. PTT is 32.5 with an INR 3.3. Sodium 140, potassium 4.8, chlorides 114, CO2 13, anion gap 13, BUN 60, and creatinine 4.66. Albumin is 2. Sputum sampling from February 05 show stenotrophomonas. Blood cultures from February 01 are positive for staph aureus. Chest x-ray shows a pattern of CHF, cardiomegaly, small to moderate effusions, and pulmonary vascular congestion. Progress note dated 02/10/2022. 61-year-old male admitted on January 31, for atrial fibrillation and cellulitis. On February 05, he was intubated for respiratory failure. He remains on the mechanical ventilator. He is currently on volume assist control, rate 24, tidal volume 500, FiO2 50%, and PEEP of 5. Blood gases show pO2 of 95, pCO2 of 38, pH is 7.29. Blood gases are consistent with metabolic acidosis. The patient remains on norepinephrine at 15 mcg/m, propofol at 25 mcg/kg/m, and D5W with 3 ampules of sodium bicarbonate at 50 mL an hour. The patient had a daily interruption of sedation on February 09, and lasted about an hour and 15 minutes, before agitation forced him to go back on the ventilator. In addition, he had hemodialysis yesterday and what hemodialysis again today. There was no additional fluid removal. Patient remains on vital high protein at 45 mL an hour, which is goal, as well as on Flagyl and cefepime. CBC is currently pe nding. INR 1.4. Sodium 138, potassium 4.3, chlorides 108, CO2 16, anion gap 14, BUN 56, and creatinine 4.44. The chest x-ray and abdominal films are all reviewed. Progress note dated 02/11/2022. 61-year-old male admitted on January 31, for atrial fibrillation and cellulitis. On February 05, the patient was intubated for respiratory failure, and remains on the mechanical ventilator. He's not made any progress, and over the last couple days, have done daily interruption of sedation, and the patient has done poorly. He is currently on volume assist control, rate 24, tidal volume 500, FiO2 50%, and PEEP of 5. Blood gases show a PaO2 of 97, pCO2 40, and pH is 7.33. The patient remains on propofol at 25 mcg/kg/m, norepinephrine at 9 mcg/m, and 3 ampules of sodium bicarbonate and D5W at 50 mL an hour. In addition, the patient is getting tube feeds with vital high protein at 45 mL an hour, which is goal. He had hemodialysis yesterday and 1 L was removed. He'll have hemodialysis again today. We will have surgery see him for a possible tracheostomy and PEG tube placement later this week. I did have a long conversation with his brother, Joe, who is in agreement. White count 21, hemoglobin 10.7, hematocrit 34.3, and platelet count 274,000. Sodium 138, potassium 4.4, chlorides 105, CO2 20, BUN 57, and creatinine 4.19. Calcium is 7. Microbiology showing evidence of stenotrophomonas sputum, and staph aureus in the blood. Chest x-ray shows bilateral pleural effusions and bibasilar atelectasis. Computed tomography scan of the brain shows mild atrophy, and an old left occipital lobe infarct. Computed tomography scan is unchanged. Progress note dated 02/12/2022. 61-year-old male admitted on January 31, for atrial fibrillation and cellulitis. 5 days later on February 05, the patient was intubated for respiratory failure, and remains on the mechanical ventilator. Yesterday, I had a conversation with the patient's brother. The brother did agree to proceed w ith tracheostomy and PEG tube placement. He states that his brother and one everything done at this point, given the fact that he is only 61 years of age. The patient has done poorly on daily interruptions of sedation. He remains on volume assist control, rate 24, tidal volume 500, FiO2 40%, and PEEP of 5. The patient is currently on propofol at 25 mcg/kg/m, and norepinephrine at 0.085 mcg/kg/m. He is also getting saline at 10 mL an hour, and a sodium bicarbonate drip, with 3 ampules of sodium bicarbonate and D5W at 50 mL an hour. The patient is also getting vital high protein at goal. White count 15.9, hemoglobin 9.9, hematocrit 31.1, and platelet count 249,000. PT 14.5. INR 1.4. Blood gases show pO2 of 77, pCO2 39, and pH is 7.38. Sodium 136, potassium 4.4, chlorides 102, CO2 21, BUN 57, and creatinine 4.33. Microbiologic sampling has been positive for stenotrophomonas in the sputum, and staph aureus in the bloodstream. The patient is currently on cefepime, Flagyl, and Eraxis. The infectious disease physician is following this patient. Chest x-ray is largely unchanged and shows bilateral pleural effusions and bibasilar atelectasis. Progress note dated 02/13/2022. 61-year-old male, admitted on January 31 for atrial fibrillation and cellulitis. The patient was intubated on February 05, her respiratory failure. The patient remains on mechanical ventilator. The patient had a PEG tube placed on February 12. Apparently, to have a tracheostomy tube placed on February 13. I did speak to the patient's brother, and confirmed that the patient would want both PEG tube and tracheostomy performed. Currently, he's on the volume assist control, rate 24, tidal volume 500, FiO2 40%, of 5. Blood gases show pO2 71, pCO2 of 36, and a pH is 7.41. The patient's on herbal follow 25 mcg/kg/m, norepinephrine at 0.095 mcg/kg/m, a sodium bicarbonate drip, with 3 ampules of sodium bicarbonate and D5W at 50 mL an hour, and saline at 20 mL an hour. Tube feedings are currently on hold. Laboratory data from today is currently pending. Chest x-ray is also pending. Progress note dated 02/14/2022. 61-year-old male admitted on January 31 or atrial fibrillation and cellulitis. The patient was intubated on February 05, for respiratory failure. The patient remains on the mechanical ventilator. The patient had a PEG tube placed on February 12. The patient will have his tracheostomy performed on February 16. Ventilator settings include the volume assist control, rate when he 4, tidal volume 500, FiO2 40%, and PEEP of 5. Blood gases show pO2 of 68, pCO2 41, and a pH is 7.39. The patient remains on propofol at 25 mcg/kg/m, and norepinephrine at 13 mcg/m. The patient is getting vital HP, at 55 mL an hour, with a goal of 65. The patient will have hemodialysis today. White count 16.2, hemoglobin 9.6, hematocrit 29.9, kind 124,000. Sodium 135, potassium 4.6, chlorides 98, CO2 22, anion gap 15, BUN 58, and creatinine 4.44. Chest x-ray shows bilateral small effusions, with some basilar atelectasis and consolidation. Progress note dated 02/15/2022. 61-year-old male admitted on January 31 for atrial fibrillation and cellulitis. The patient was intubated for respiratory failure on February 05. The patient remains on the mechanical ventilator. The patient had a PEG tube placed on February 12. The patient will have a tracheostomy tube performed on February 16. Ventilator settings include the volume assist control, rate 24, tidal vo lume 500, FiO2 40%, PEEP of 5. Blood gases show pO2 of 66, pCO2 42, and pH is 7.39. The patient's on saline at 15 mL an hour, propofol at 20 mcg/kg/m, norepinephrine at 13 mcg/m, and vital high protein at 65 mL an hour, which is goal. The patient did have hemodialysis on February 14, and 2 L was removed. The patient has failed daily interruptions of sedation, and prior spontaneous breathing trials. For this reason, the patient is scheduled for tracheostomy tomorrow. White count 13.9, hemoglobin 9.6, hematocrit 30.1, and platelet count 96,000. Sodium 134, potassium 4.4, chlorides 96, CO2 23, anion gap 15, BUN 59, and creatinine 4.21. Chest x-ray shows bilateral pleural effusions and pulmonary edema. Objective - Vital Signs Vital signs: Vital Signs Temp 99.5 F 02/15/22 08:00 Pulse 86 02/15/22 09:00 Resp 24 02/15/22 09:00 BP 119/62 02/15/22 07:00 Pulse Ox 94 L 02/15/22 09:00 FiO2 40 02/15/22 08:00 Intake & Output 02/14/22 02/15/22 02/15/22 18:59 06:59 18:59 Intake Total 2167.876 1191.069 78 Output Total 2265 235 15 Balance -97.124 956.069 63 Weight 154.1 kg Intake: IV 649 293 13 .9 @ 20 110 0.9% Sodium Chloride @ 110 10 10mls/hr Anidulafungin 100 mg In 100 Sodium Chloride 0.9% 100 ml @ 84 mls/hr IVPB DAILY [facility] Rx#:[id number] Cefepime 1 gm In Sodium 50 50 Chloride 0.9% 50 ml @ 12. 5 mls/hr IVPB Q12HR [facility] Rx#:[id number] Dextrose 5% in Water 1, 50 000 ml @ 50 mls/hr IV . Q23H [facility] with Sodium Bicarb (1 Meq/ml) 150 ml Rx#:[id number] Pressure bags 39 33 3 levETIRAcetam IV 500 mg 100 In Sodium Chloride 0.9% 100 ml @ 400 mls/hr IVPB DAILY [facility] Rx#:[id number] metroNIDAZOLE-NS PMX 500 200 100 mg In Saline 1 100ml.bag @ 100 mls/hr IVPB Q8HR [facility] Rx#:[id number] Intake, IV Titration 303.876 33.069 Amount Norepinephrine 32 mg In 119.732 33.069 Sodium Chloride 0.9% 218 ml @ 0.05 MCG/KG/MIN 3. 246 mls/hr IV .Q24H [facility] Rx#:[id number] propofoL 1,000 mg In 184.144 Empty Bag 1 bag @ 5 MCG/ KG/MIN 4.08 mls/hr IV . Q24H [facility] Rx#:[id number] Tube Feeding 825 715 65 Hemodialysis 300 Other 90 150 Output: Urine 265 235 15 Hemodialysis 2000 Other: Voiding Method Indwelling Catheter Indwelling Catheter Indwelling Catheter ABP, PAP, CO, CI - Last Documented Arterial Blood Pressure 133/55 - Exam No acute distress, sedated, with an orally placed endotracheal tube and NG tube. HEENT examination is grossly unremarkable. Neck supple. Full range of motion. No adenopathy thyromegaly or neck vein distention. Cardiovascular examination reveals an irregular rhythm. S1-S2 normal. No S3 or S4. No discernible murmur noted. Heart rate 86 bpm. Lungs reveal bibasilar crackles. Bilateral rhonchi are noted. No wheezes. Breath sounds are equal bilaterally. Saturations are 95 %. Abdomen obese, bowel sounds. No masses. A PEG tube is now noted. Extremities are intact. No cyanosis clubbing or edema. Skin reveals a large around the lateral malleolus of the right foot with gangrenous changes. Neurologic examination cannot be properly assessed as the patient's currently sedated. - Labs CBC & Chem 7: 02/15/22 04:31 02/15/22 04:31 Labs: Abnormal Lab Results - Last 24 Hours (Table) 02/12/22 02/14/22 02/14/22 Range/Units 06:00 12:04 18:03 WBC (3.8-10.6) k/uL RBC (4.30-5.90) m/uL Hgb (13.0-17.5) gm/dL Hct (39.0-53.0) % RDW (11.5-15.5) % Plt Count (150-450) k/uL Neutrophils # (Manual) (1.3-7.7) k/uL ABG pO2 (83-108) mmHg ABG Total CO2 (19-24) mmol/L ABG O2 Saturation (94-97) % ABG Hematocrit (34.0-46.0) % Hemoglobin (13.0-17.5) gm/dL Sodium (137-145) mmol/L Chloride (98-107) mmol/L BUN (9-20) mg/dL Creatinine (0.66-1.25) mg/dL Glucose (74-99) mg/dL POC Glucose (mg/dL) 171 H 122 H (70-110) mg/dL Calcium (8.4-10.2) mg/dL C-Reactive Protein (<1.0) mg/dL Albumin (PEP) 1.67 L (3.80-4.90) g/dL Gamma Globulins 0.54 L (0.70-1.50) g/dL 02/14/22 02/14/22 02/15/22 Range/Units 20:47 23:58 00:48 WBC (3.8-10.6) k/uL RBC (4.30-5.90) m/uL Hgb (13.0-17.5) gm/dL Hct (39.0-53.0) % RDW (11.5-15.5) % Plt Count (150-450) k/uL Neutrophils # (Manual) (1.3-7.7) k/uL ABG pO2 (83-108) mmHg ABG Total CO2 (19-24) mmol/L ABG O2 Saturation (94-97) % ABG Hematocrit (34.0-46.0) % Hemoglobin (13.0-17.5) gm/dL Sodium (137-145) mmol/L Chloride (98-107) mmol/L BUN (9-20) mg/dL Creatinine (0.66-1.25) mg/dL Glucose (74-99) mg/dL POC Glucose (mg/dL) 130 H 114 H 129 H (70-110) mg/dL Calcium (8.4-10.2) mg/dL C-Reactive Protein (<1.0) mg/dL Albumin (PEP) (3.80-4.90) g/dL Gamma Globulins (0.70-1.50) g/dL 02/15/22 02/15/22 02/15/22 Range/Units 04:31 04:31 05:18 WBC 13.9 H (3.8-10.6) k/uL RBC 3.30 L (4.30-5.90) m/uL Hgb 9.6 L (13.0-17.5) gm/dL Hct 30.1 L (39.0-53.0) % RDW 17.5 H (11.5-15.5) % Plt Count 96 L (150-450) k/uL Neutrophils # (Manual) 11.30 H (1.3-7.7) k/uL ABG pO2 66 L (83-108) mmHg ABG Total CO2 27 H (19-24) mmol/L ABG O2 Saturation 92.0 L (94-97) % ABG Hematocrit 29 L (34.0-46.0) % Hemoglobin 9.4 L (13.0-17.5) gm/dL Sodium 134 L (137-145) mmol/L Chloride 96 L (98-107) mmol/L BUN 59 H (9-20) mg/dL Creatinine 4.21 H (0.66-1.25) mg/dL Glucose 137 H (74-99) mg/dL POC Glucose (mg/dL) (70-110) mg/dL Calcium 7.4 L (8.4-10.2) mg/dL C-Reactive Protein 5.5 H (<1.0) mg/dL Albumin (PEP) (3.80-4.90) g/dL Gamma Globulins (0.70-1.50) g/dL 02/15/22 Range/Units 06:00 WBC (3.8-10.6) k/uL RBC (4.30-5.90) m/uL Hgb (13.0-17.5) gm/dL Hct (39.0-53.0) % RDW (11.5-15.5) % Plt Count (150-450) k/uL Neutrophils # (Manual) (1.3-7.7) k/uL ABG pO2 (83-108) mmHg ABG Total CO2 (19-24) mmol/L ABG O2 Saturation (94-97) % ABG Hematocrit (34.0-46.0) % Hemoglobin (13.0-17.5) gm/dL Sodium (137-145) mmol/L Chloride (98-107) mmol/L BUN (9-20) mg/dL Creatinine (0.66-1.25) mg/dL Glucose (74-99) mg/dL POC Glucose (mg/dL) 156 H (70-110) mg/dL Calcium (8.4-10.2) mg/dL C-Reactive Protein (<1.0) mg/dL Albumin (PEP) (3.80-4.90) g/dL Gamma Globulins (0.70-1.50) g/dL Microbiology - Last 24 Hours (Table) 02/14/22 04:33 Blood Culture - Preliminary Blood No Growth after 24 hours Assessment and Plan Assessment: Acute hypercapnic respiratory failure, status post intubation and mechanical ventilation on 02/05/2022. Status post PEG tube placement 02/12/2022. Anticipated tracheostomy tube insertion on February 16, for failure to wean from mechanical ventilation. Stenotrophomonas tracheobronchitis/bronchopneumonia. Methicillin sensitive staph. aureus bacteremia. Acute metabolic encephalopathy. Right sided rib fractures, traumatic, secondary to a fall. Right-sided pulmonary contusion. Anterior wedge compression fracture, L1. Hemoptysis, secondary to pulmonary contusion. COPD from chronic tobacco use. Coumadin toxicity. Chronic atrial fibrillation. Chronic kidney disease, stage III. Stage II right ankle wound, status post debridement. Diabetic peripheral neuropathy. History of kidney stones. Nonspecific colitis. Plan: Plan dated 02/09/2022. We will continue ventilatory support. The patient will have a daily int erruption of sedation. The patient remains on Flagyl and cefepime. Culture data is reviewed. Continue GI and DVT prophylaxis. Prognosis is guarded. Labs, x-rays, and medications are all reviewed. We will continue to follow make recommendations along the way. The patient continues on amiodarone. Plan dated 02/10/2022. The patient will have another daily interruption of sedation. Yesterday, he did, and was only off sedation for about an hour and 15 minutes. The patient may not be ready yet. The patient did have hemodialysis yesterday, and will have an again today. Blood gases are consistent with metabolic acidosis. Chest x-ray, labs, and medications are reviewed. The patient remains on norepinephrine at 15 mcg/m. The patient remains on propofol at 25 mcg/kg/m. The patient also remains on Flagyl and cefepime. Prognosis is certainly guarded. We will continue to follow and make recommendations along the way. Plan dated 02/11/2022. Over the last couple of days, the patient has done poorly with his daily interruption of sedation. He is obviously not moving towards weaning and extubation. I had a conversation with his brother Joe today, and we did agree on proceeding with a tracheostomy and PEG one of the surgeons will be consulted. Labs, x-rays, and medications are reviewed. The patient will get hemodialysis again today. The patient remains on propofol and norepinephrine, as well as a bicarbonate drip. Nephrology is following. He is receiving tube feedings at goal. The patient's overall prognosis is very guarded. Plan dated 02/12/2022. We will proceed with tracheostomy and PEG tube, as these apparently are the wishes of the patient, and the wishes of the patient's brother, Joe. The patient has done very poorly with his daily interruption of sedation. Nephrology is following the patient has been doing daily hemodialysis. The patient remains on propofol, and norepinephrine. The patient is also on a sodium bicarbonate drip. He is receiving tube feedings at goal. Labs, x-rays, and medications are reviewed. Overall prognosis remains very guarded. Surgery has been consulted for the tracheostomy and PEG tube placement Plan dated 02/13/2022. The patient is supposed to have a tracheostomy tube placed today. He had a PEG tube placed yesterday, February 12. Labs, x-rays, medications are reviewed. I did speak to the brother, Joe, about the patient's desire to have everything done at this point. The patient is undergoing hemodialysis as per nephrology. He remains on a sodium bicarbonate drip. Labs, x-rays, and medications are all reviewed. Prognosis is guarded. He remains on Flagyl, cefepime, and Eraxis. Plan dated 02/14/2022. The patient is seen and evaluated. The patient will have his tracheostomy tube performed on 02/16/2022. His PEG tube was placed on February 12. Labs, x- rays, and medications are reviewed. The patient's overall prognosis remains very guarded. Microbiologic data is reviewed again. He is on Eraxis, cefepime, and Flagyl. Additional recommendations and suggestions are forthcoming. The patient remains on propofol for sedation, and norepinephrine at 13 mcg/m for blood pressure support. We will continue to follow make recommendations along the way. Prognosis is certainly guarded. Plan dated 02/15/2022. The patient is seen and evaluated, in room 256. The patient is to have a tracheostomy tube inserted on 02/16/2022. The PEG tube was placed on February 12. Labs, x-rays, medications are all reviewed. The patient's overall prognosis remains very guarded. The patient continues on antibiotics and antifungals in the form of cefepime, Flagyl, and Eraxis. We'll continue to follow make recommendations along the way. Patient remains on norepinephrine at 13 mcg/m. The patient is receiving tube feedings at goal. The patient did have hemodialysis yesterday, and 2 L was removed. Time with Patient: Greater than 30
[2022-02-15 12:07] LABS: Glucose,Whole Blood 162 mg/dL (70-110)
--- NOTE | 2022-02-15 14:06 | P.PN ---
Subjective Progress Note Date: 02/15/22 CHIEF COMPLAINT: Respiratory failure HISTORY OF PRESENT ILLNESS: The patient is a 61-year-old male who presents with chronic renal disease, fecal impaction, respiratory failure currently on full mechanical ventilation. Patient has feeding tube for protein malnutrition. No events overnight. He is in intensive care unit on mechanical ventilation. ROS: No reports of nausea and vomiting. No fevers or chills. PHYSICAL EXAM: VITAL SIGNS: Reviewed CONSTITUTIONAL: Well developed and in no acute distress. EYES: Conjuctivae without sclera icterus. HEAD, EARS, NOSE, THROAT: Moist buccal mucosa. Head is atraumatic, normocephalic RESPIRATORY: Full mechanical ventilation CARDIOVASCULAR: Palpable 2+ radial pulses. ABDOMEN: Gastrostomy tube intact with tube feeds MUSCULOSKELETAL: No gross deformity of the lower extremities noted. SKIN: Good skin turgor. Well perfused. NEUROLOGIC: Cranial nerves II through XII grossly intact. PSYCH: Sedated CLINICAL LABS: Reviewed. WBC elevated at 15.9-16.2, now 13.9 leukocytosis. ASSESSMENT: 1. Acute respiratory failure 2. Fecal impaction 3. Protein malnutrition status post gastrostomy tube placement 4. Sepsis PLAN: 1. Tube feeds per dietary goals however hold prior to tracheostomy Objective - Vital Signs Vital signs: Vital Signs Temp 98.8 F 02/15/22 12:00 Pulse 75 02/15/22 13:00 Resp 24 02/15/22 13:00 BP 111/64 02/15/22 11:00 Pulse Ox 96 02/15/22 13:00 FiO2 40 02/15/22 12:00 Intake & Output 02/14/22 02/15/22 02/15/22 18:59 06:59 18:59 Intake Total 2167.876 1956.810 7807.707 Output Total 2265 235 120 Balance -97.124 7566.760 9523.707 Weight 154.1 kg Intake: IV 649 293 505 .9 @ 20 110 0.9% Sodium Chloride @ 110 100 10mls/hr Anidulafungin 100 mg In 100 84 Sodium Chloride 0.9% 100 ml @ 84 mls/hr IVPB DAILY [facility] Rx#:[id number] Cefepime 1 gm In Sodium 50 50 100 Chloride 0.9% 50 ml @ 12. 5 mls/hr IVPB Q12HR [facility] Rx#:[id number] Dextrose 5% in Water 1, 50 000 ml @ 50 mls/hr IV . Q23H [facility] with Sodium Bicarb (1 Meq/ml) 150 ml Rx#:[id number] Pressure bags 39 33 21 levETIRAcetam IV 500 mg 100 100 In Sodium Chloride 0.9% 100 ml @ 400 mls/hr IVPB DAILY [facility] Rx#:[id number] metroNIDAZOLE-NS PMX 500 200 100 100 mg In Saline 1 100ml.bag @ 100 mls/hr IVPB Q8HR [facility] Rx#:[id number] Intake, IV Titration 303.876 133.069 53.707 Amount Norepinephrine 32 mg In 119.732 33.069 53.707 Sodium Chloride 0.9% 218 ml @ 0.05 MCG/KG/MIN 3. 246 mls/hr IV .Q24H [facility] Rx#:[id number] propofoL 1,000 mg In 184.144 100 Empty Bag 1 bag @ 5 MCG/ KG/MIN 4.08 mls/hr IV . Q24H [facility] Rx#:[id number] Tube Feeding 825 715 520 Hemodialysis 300 Other 90 150 60 Output: Urine 265 235 120 Hemodialysis 1999 Other: Voiding Method Indwelling Catheter Indwelling Catheter Indwelling Catheter ABP, PAP, CO, CI - Last Documented Arterial Blood Pressure 129/50 - Labs CBC & Chem 7: 02/15/22 04:31 02/15/22 04:31 Labs: Abnormal Lab Results - Last 24 Hours (Table) 02/12/22 02/14/22 02/14/22 Range/Units 06:00 18:03 20:47 WBC (3.8-10.6) k/uL RBC (4.30-5.90) m/uL Hgb (13.0-17.5) gm/dL Hct (39.0-53.0) % RDW (11.5-15.5) % Plt Count (150-450) k/uL Neutrophils # (Manual) (1.3-7.7) k/uL ABG pO2 (83-108) mmHg ABG Total CO2 (19-24) mmol/L ABG O2 Saturation (94-97) % ABG Hematocrit (34.0-46.0) % Hemoglobin (13.0-17.5) gm/dL Sodium (137-145) mmol/L Chloride (98-107) mmol/L BUN (9-20) mg/dL Creatinine (0.66-1.25) mg/dL Glucose (74-99) mg/dL POC Glucose (mg/dL) 122 H 130 H (70-110) mg/dL Calcium (8.4-10.2) mg/dL C-Reactive Protein (<1.0) mg/dL Albumin (PEP) 1.67 L (3.80-4.90) g/dL Gamma Globulins 0.54 L (0.70-1.50) g/dL Procalcitonin (0.02-0.09) ng/mL 02/14/22 02/15/22 02/15/22 Range/Units 23:58 00:48 04:31 WBC (3.8-10.6) k/uL RBC (4.30-5.90) m/uL Hgb (13.0-17.5) gm/dL Hct (39.0-53.0) % RDW (11.5-15.5) % Plt Count (150-450) k/uL Neutrophils # (Manual) (1.3-7.7) k/uL ABG pO2 (83-108) mmHg ABG Total CO2 (19-24) mmol/L ABG O2 Saturation (94-97) % ABG Hematocrit (34.0-46.0) % Hemoglobin (13.0-17.5) gm/dL Sodium (137-145) mmol/L Chloride (98-107) mmol/L BUN (9-20) mg/dL Creatinine (0.66-1.25) mg/dL Glucose (74-99) mg/dL POC Glucose (mg/dL) 114 H 129 H (70-110) mg/dL Calcium (8.4-10.2) mg/dL C-Reactive Protein (<1.0) mg/dL Albumin (PEP) (3.80-4.90) g/dL Gamma Globulins (0.70-1.50) g/dL Procalcitonin 2.05 H (0.02-0.09) ng/mL 02/15/22 02/15/22 02/15/22 Range/Units 04:31 04:31 05:18 WBC 13.9 H (3.8-10.6) k/uL RBC 3.30 L (4.30-5.90) m/uL Hgb 9.6 L (13.0-17.5) gm/dL Hct 30.1 L (39.0-53.0) % RDW 17.5 H (11.5-15.5) % Plt Count 96 L (150-450) k/uL Neutrophils # (Manual) 11.30 H (1.3-7.7) k/uL ABG pO2 66 L (83-108) mmHg ABG Total CO2 27 H (19-24) mmol/L ABG O2 Saturation 92.0 L (94-97) % ABG Hematocrit 29 L (34.0-46.0) % Hemoglobin 9.4 L (13.0-17.5) gm/dL Sodium 134 L (137-145) mmol/L Chloride 96 L (98-107) mmol/L BUN 59 H (9-20) mg/dL Creatinine 4.21 H (0.66-1.25) mg/dL Glucose 137 H (74-99) mg/dL POC Glucose (mg/dL) (70-110) mg/dL Calcium 7.4 L (8.4-10.2) mg/dL C-Reactive Protein 5.5 H (<1.0) mg/dL Albumin (PEP) (3.80-4.90) g/dL Gamma Globulins (0.70-1.50) g/dL Procalcitonin (0.02-0.09) ng/mL 02/15/22 02/15/22 Range/Units 06:00 12:05 WBC (3.8-10.6) k/uL RBC (4.30-5.90) m/uL Hgb (13.0-17.5) gm/dL Hct (39.0-53.0) % RDW (11.5-15.5) % Plt Count (150-450) k/uL Neutrophils # (Manual) (1.3-7.7) k/uL ABG pO2 (83-108) mmHg ABG Total CO2 (19-24) mmol/L ABG O2 Saturation (94-97) % ABG Hematocrit (34.0-46.0) % Hemoglobin (13.0-17.5) gm/dL Sodium (137-145) mmol/L Chloride (98-107) mmol/L BUN (9-20) mg/dL Creatinine (0.66-1.25) mg/dL Glucose (74-99) mg/dL POC Glucose (mg/dL) 156 H 162 H (70-110) mg/dL Calcium (8.4-10.2) mg/dL C-Reactive Protein (<1.0) mg/dL Albumin (PEP) (3.80-4.90) g/dL Gamma Globulins (0.70-1.50) g/dL Procalcitonin (0.02-0.09) ng/mL Microbiology - Last 24 Hours (Table) 02/14/22 04:33 Blood Culture - Preliminary Blood No Growth after 24 hours
--- NOTE | 2022-02-15 14:14 | P.PN ---
Progress Note - Text Progress Note Date: 02/15/22 This is a 61-year-old patient who follows with Dr. Sridhar Chan. Chronic stable medical conditions include diabetes, hypertension, hyperlipidemia, chronic low back problems, cigarette smoker. At the baseline uses a walker. Patient slipped in the bathroom falling on his buttock. Was not able to get up. By the EMS report he had fallen 24 hours prior to the picking him up. Patient been complaining of pain in the right rib cage in the lower back. X-ray was negative for fracture. Patient continued to have significant pain especially with deep breathing. Patient also had a congestive cough and wheezing. Some bloody sputum. Denies any fever and chills. Patient also complaining of urina ry retention and requesting a Shepard catheter. at the bedside. No fever no chills. Orthopedics consulted for the same. Patient normally has a bowel movement once a week. Patient also has a wound on the right foot lateral part of the ankles for about a week. Ischemic changes. From rubbing against a bedpost. Patient's INR in the ER was greater than 10. Was given vitamin K. 10 mg Patient bit with Coumadin toxicity, given vitamin K, acute COPD exacerbation, uncontrolled atrial flutter put on Lopressor, right chest wall pain. Computed tomography scan lumbar spine and chest was ordered. Large wound on the right lateral malleolus-ID and vascular consulted.. IV cefepime. February 01: Patient yesterday to see refused his computed tomography scan of the chest and lumbar spine. Done today. Right-sided rib fractures, pulmonary contusion confirm. L1 vertebral body 30% wedge compression fracture. Patient's girlfriend the bedside. It was discussed in detail with her. Patient wanting again and again to pull out his NG tube. Requests the to stay with the patient. Patient is also had the dark aspirate from the stomach for which she has NG tube. Surgery was consulted for the same. Also this morning right foot wound was debrided by Dr. Ibarra from vascular. Wound base was relatively clean. No undermining or tunneling. February 02: Delirious. NG tube to suction. Has been in restraints because point NG TUBE several times. Mumbling to himself. Dressing over the right ankle. Not in distress. Ileus. Chest x-ray showing right lower lobe/atelectasis. February 03: Hospital computer system was down. Patient remains delirious. Nasal cannula. Lethargic. Family the bedside. Antibiotics. A. fib uncontrolled. EEG evidence of metabolic encephalopathy. No clear-cut epileptiform activity. Started on Keppra by neurology. February 04: ICU: Girlfriend at the bedside. In atrial fibrillation uncontrolled. On IV Cardizem and IV amiodarone. NG tube to suction. Patient lethargic. Multiple breathing. 2 L. Oxygen. February 05: ICU. Atrial fibrillation better controlled this morning. Cardizem discontinued. Patient respiratory status worsened this morning and patient is intubated. FiO2 45 and a PEEP of 5. Atrial fibrillation, controlled. Drips include amiodarone, propofol, levo fed. Discussed with girlfriend the bedside. Understands prognosis guarded. February 06: ICU: Ventilated. FiO2 45 and a PEEP of 5. NG tube is clamped. On IV propofol. Sedated. Heart rate better controlled. Was started on Coumadin yesterday. Worsening renal function. Nephrology consulted. 02/07/2022 Patient is currently in the MICU and on mechanical ventilator. Tidal volume of 400, FiO2 40% and PEEP of 5. Patient is off pressor support today. Currently on propofol and is also on tube feeding. Chest x-ray showed stable exam with stable support lines and tubes. Correlate for congestive heart failure. Patient was given a dose of IV Lasix. Laboratory data showed WBC 18.4 hemoglobin 11.6 and platelets 458 Sodium 141 potassium 3.7 chloride 103 bicarb is 18 BUN 49 and creatinine 3.73 and calcium 7.3. INR is 2.2. Patient is being followed by nephrology cardiology and critical care team. 02/08/2022 Patient is currently on mechanical ventilator and sedated with propofol. Assist control with FiO2 40% and tidal volume of 400 and PEEP of 5. Patient is being continued on antibiotics above cefepime and Flagyl. Sputum gram stain gram-negative bacilli and Lynda. Chest x-ray today showed findings suggestive of slightly worsening CHF exacerbation as there is cardiomegaly with mild to moderate central venous congestion and small to moderate-sized bilateral pleural effusion. Laboratory test showed WBC increased to 23.6 hemoglobin 9.1 and platelets 162 INR 3.0 Sodium 139 potassium 4.3 chloride 113 bicarb is 40 BUN 54 and creatinine worsening to 4.36 February 09: I resumed the care of patient today ICU: Med: 40/5. Received vitamin K 5 mg IV to bring the INR down for dialysis catheter. Drips include bicarbonate, propofol, epinephrine. Patient is a stage II coccyx is ulcer. Plan is to change the NG tube to on G-tube today. For possible colitis/fistula on antibiotics. at the bedside. February 10: ICU. Ventilator 50/5. Hemodialysis catheter placed last night. Hemodialyzed yesterday and getting dialyzed today. Remains in atrial fibrillation heart rate uncontrolled. Getting up sedation holiday. Drips include bicarbonate and norepinephrine. Propofol currently held. 2 feeding at 46 mL an hour. Does open eyes. February 11: ICU. Ventilator. 50/5. Third day for hemodialysis. 1.5 L to be removed today. Back on propofol. Drips include bicarbonate, norepinephrine, propofol. On G-tube feeding. Patient back in sinus rhythm. Bag and tracheostomy to planning for next week. 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 IV antifungal started by ID. February 12: ICU: Ventilator: 40/5. Telemetry shows sinus rhythm. Drips include propofol and norepinephrine. On G-tube feeding. Discussed with the at the bedside. Understands prognosis guarded. IV antibiotics and antifungals. February 13: ICU: Ventilator: 40/5. PEG tube placed yesterday by Dr. Cornejo. Drips include bicarbonate, propofol, norepinephrine. Getting hemodialysis done today. February 14: ICU: Medicated. 2 feeding at 65 mL an hour. This included propofol and norepinephrine. Hemodialysis done today. Sinus rhythm. February 15: ICU: Ventilator: 40/5. 2 feeding at 65 mL an hour. Drips include propofol and norepinephrine. No hemodialysis today. at the bedside. Discussed. Active Medications Acetaminophen (Acetaminophen Tab 325 Mg Tab) 650 mg PO Q6HR PRN PRN Reason: Mild Pain or Fever > 100.5 Albuterol/Ipratropium (Ipratropium-Albuterol 3 Ml Neb) 3 ml INHALATION RT-QID [facility] Last Admin: 02/15/22 11:00 Dose: 3 ml Amiodarone HCl (Amiodarone 200 Mg Tab) 200 mg PO BID [facility] Last Admin: 02/15/22 09:35 Dose: 200 mg Artificial Tears (Artificial Tears-Hypromellose Drops 15 Ml Btl) 2 drops BOTH EYES TID PRN PRN Reason: Dry Eye(s) Bisacodyl (Bisacodyl 10 Mg Supp) 10 mg RECTAL DAILY [facility] Last Admin: 02/15/22 09:35 Dose: 10 mg Budesonide (Budesonide 1 Mg/2 Ml Nebu) 1 mg INHALATION RT-BID [facility] Last Admin: 02/15/22 07:51 Dose: 1 mg Calcium Acetate (Calcium Acetate 667 Mg Tab) 667 mg PO BID-W/MEALS [facility] Last Admin: 02/15/22 07:27 Dose: 667 mg Calcium Carbonate/Glycine (Calcium Carbonate 500 Mg Chewable) 1,000 mg PO Q4HR PRN PRN Reason: Dyspepsia Last Admin: 01/31/22 14:29 Dose: 1,000 mg Chlorhexidine Gluconate (Chlorhexidine Gluconate 15 Ml Cup) 15 ml MUCOUS MEM BID [facility] Last Admin: 02/15/22 09:34 Dose: 15 ml Collagenase (Collagenase 250 Unit/Gm Ointment 30 Gm Tube) 1 applic TOPICAL DAILY [facility]; Protocol Last Admin: 02/15/22 09:36 Dose: 1 applic Dextrose/Water (Dextrose 50% Syringe 50 Ml) 25 ml IVP PER PROTOCOL PRN; Protocol PRN Reason: Hypoglycemia Last Admin: 02/06/22 18:11 Dose: 25 ml Dextrose/Water (Dextrose 50% Syringe 50 Ml) 50 ml IVP PER PROTOCOL PRN; Protocol PRN Reason: Hypoglycemia Hydromorphone HCl (Hydromorphone 0.5 Mg/0.5 Ml Syringe) 0.5 mg IVP Q3HR PRN PRN Reason: Pain Last Admin: 02/15/22 04:59 Dose: 0.5 mg Propofol 1,000 mg/ IV Solution 100 mls @ 4.08 mls/hr IV .Q24H [facility]; Protocol Last Admin: 02/15/22 12:34 Dose: 20 mcg/kg/min, 16.32 mls/hr Metronidazole 500 mg/ IV (Solution) 100 mls @ 100 mls/hr IVPB Q8HR [facility]; Protocol Last Admin: 02/15/22 09:34 Dose: 100 mls/hr Cefepime HCl 1 gm/ Sodium (Chloride) 50 mls @ 12.5 mls/hr IVPB Q12HR [facility] Last Admin: 02/15/22 09:35 Dose: 12.5 mls/hr Norepinephrine Bitartrate 32 (mg/ Sodium Chloride) 250 mls @ 3.246 mls/hr IV .Q24H [facility]; Protocol Last Admin: 02/15/22 12:34 Dose: 0.07 mcg/kg/min, 4.545 mls/hr Levetiracetam 500 mg/ Sodium (Chloride) 105 mls @ 400 mls/hr IVPB DAILY [facility] Last Admin: 02/15/22 09:34 Dose: 400 mls/hr Anidulafungin 100 mg/ Sodium (Chloride) 100 mls @ 84 mls/hr IVPB DAILY [facility]; Protocol Last Admin: 02/15/22 09:35 Dose: 84 mls/hr Insulin Aspart (Insulin Aspart (Novolog) 100 Unit/Ml Vial) 0 unit SQ Q6HR [facility]; Protocol Last Admin: 02/15/22 12:33 Dose: 2 unit Insulin Detemir (Insulin Detemir (Levemir) 100 Unit/Ml Syr) 14 unit SQ HS [facility] Last Admin: 02/15/22 06:03 Dose: 14 unit Metoprolol Tartrate (Metoprolol Tartrate 25 Mg Tab) 25 mg PO BID [facility] Last Admin: 02/15/22 09:35 Dose: 25 mg Miscellaneous Information (Potassium Replacement Protocol 1 Each Misc) 1 each MISCELLANE DAILY PRN; Protocol PRN Reason: Per Protocol Miscellaneous Information (Magnesium Replacement Protocol 1 Each Misc) 1 each MISCELLANE DAILY PRN; Protocol PRN Reason: Per Protocol Morphine Sulfate (Morphine Oral Soln 10 Mg/5 Ml Cup) 15 mg PO Q12H [facility] Last Admin: 02/15/22 12:34 Dose: 15 mg Naloxone HCl (Naloxone 0.4 Mg/Ml 1 Ml Vial) 0.2 mg IV Q2M PRN PRN Reason: Opioid Reversal Ondansetron HCl (Ondansetron 4 Mg/2 Ml Vial) 4 mg IVP Q8HR PRN PRN Reason: Nausea And Vomiting Last Admin: 02/02/22 08:41 Dose: 4 mg Pantoprazole Sodium (Pantoprazole 40 Mg/10 Ml Vial) 40 mg IVP BID [facility] Last Admin: 02/15/22 09:34 Dose: 40 mg Pregabalin (Pregabalin 100 Mg Cap) 100 mg PO BID [facility] Last Admin: 02/15/22 09:35 Dose: 100 mg Sodium Bicarbonate (Sodium Bicarbonate Tab 650 Mg Tab) 1,300 mg PO QID [facility] Last Admin: 02/15/22 12:34 Dose: 1,300 mg Torsemide (Torsemide 20 Mg Tab) 40 mg PO DAILY [facility] Last Admin: 02/15/22 09:35 Dose: 40 mg Past medical history to include: COPD, diabetes, hypertension, hyperlipidemia, back problems, TB, atrial fibrillation, on Coumadin Social history: Smokes a pack a day for close to 50 years. Stop doing alcohol some time ago. Lives with his significant other Sandra. Does use a walker. 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 Conjunctiva normal. HEENT: External appearance of nose and ears normal, oral cavity dry, OG tube with tube feeding, endotracheal tube NECK: JVD not raised; masses not palpable. HEART: Heart sounds regular; mild edema. LUNGS: Respiratory rate increased; decreased breath sound, ABDOMEN: Soft, distended, nontender, liver spleen not palpable, no masses palpable. PEG tube. PSYCH: Unable to assess, patient lethargic DERMATOLOGICAL: Wound on right ankle lateral malleolus. Under dressing. Stage II coccygeal breakdown. See nursing notes INVESTIGATIONS, reviewed in the clinical context: February 15: WBC 13.9 hemoglobin 9.6 platelets 96 potassium 4.4 BUN 59 creatinine 4.21 procalcitonin 2.05 Acute hepatitis screen: Negative Complement C3 78, complement C4 19.6 February 11: Sodium 138 potassium 4.4 creatinine 4.19 Sputum: Stenostrophonas maltophilia, Lynda albicans Computed tomography scan abdomen and pelvis [February 06] 6 mm stone in the right renal collecting system. Some circumferential wall thickening of the cecum and ascending colon. Distention of the rectum 7.5 cm with solid stool. EEG: Evidence of encephalopathy. No obvious epileptiform activity. 2-D echocardiogram: EF 60-65%. Renal ultrasound: Shows bilateral normal cortical medullary thickness. February 01: WBC 17.1 hemoglobin 14.8 UA: Blood large, leukoesterase moderate WBC 28 nitrite negative Lumbar spine CT: Anterior wedge compression deformity of L1. Multiple level DJD. 7 mm calculus right renal pelvis. CT chest without contrast: Right lateral eighth through 10th rib fractures with associated gas trace hemothorax right lower lobe pulmonary contusion/atelectasis. Patchy) disease left upper lobe. WBC 25.8 hemoglobin 14.1 platelets 217 INR greater than 10 sodium 131 potassium 3.9. 24 creatinine 1.8 to EKG tracing personally reviewed by me-atrial aidenttalyson. Rate 132 Foot/Lumbar/sacral coccyx: Spondylitic changes. No fracture. Chest x-ray film personally reviewed by me-clinically. Possible hyperinflation Assessment and plan: -Coumadin toxicity. INR greater than 10. On presentation: 10 mg vitamin K in the ER. Hemoptysis on presentation. Coumadin resumed on February 05.. - right lung contusion.-Secondary to fall. hemoptysis on presentation -Pneumonia, secondary to Stenostrophonas maltophilia, Lynda albicans: Slow to respond IV cefepime, IV anidulafungin -Sepsis with positive blood cultures MSSA, likely source right ankle. From January 31. IV cefepime. February 04 blood culture negative -Acute hypoxic respiratory failure, multifactorial: ventilator support,: Slow to respond Patient intubated on February 05 -Acute COPD exacerbation, with chronic bronchitis component in a current smoker: Slow to respond DuoNeb. Nebulized Pulmicort. Mucinex. -Chronic nicotine dependence, cigarette smoker Nicotine patch -Paroxysmal atrial flutter,: Back in sinus rhythm Lopressor 50 mg 3 times a day. 2-D echocardiogram unremarkable. Oral amiodarone Coumadin started on February 05 -Possible CK D with possible acute component. creatinine was 0.8 in April 2019. Renal ultrasound unremarkable. UA shows trace protein. IV fluids.. -Acute kidney injury, ATN, likely cardiorenal syndrome.: Not improving Follow with nephrology. Daily Hemodialysis started February 09 -Acute right-sided 8-10 ribs fracture secondary to fall K pad -Diabetes mellitus type 2, chronically on oral hypoglycemic Hold Glucotrol. Sliding scale insulin. Levemir 14 units daily at bedtime -Diabetic peripheral neuropathy Decreased dose of Lyrica in the setting of renal failure. 100 mg twice a day -Chronic low back pain: MS Contin 15 mg every 12, [place] 7.5 twice a day when necessary -Anxiety depression not otherwise specified Wellbutrin XL 100 mg twice a day -Hyperlipidemia Lipitor 40 mg daily at bedtime -Right ankle lateral, diabetic wound, stage II acute. Wound culture positive for Streptococcus agalactiae and Staphylococcus aureus. IV Ancef initially. Follow with ID Patient has poor distal pulses. February 01 wound was debrided by Dr. Ibarra. Clean base. -Acute L1 30% wedge fracture secondary to fall LSO brace. Be followed by Dr. Damon -Acute delirium multifactorial. Slow to respond -Acute ileus, NG tube for decompression.; clamped.: Corrected Being followed by surgery. -Possible colitis /fistula on computed tomography scan. IV Flagyl. Cefepime. Followed by surgery . IV propofol, IV norepinephrine. IV Flagyl,/IV cefepime/IV anidulafungin. Hemodialysis not done today. Has a PEG tube. Tracheostomy for Wednesday. Prognosis guarded
[2022-02-15 17:34] LABS: Glucose,Whole Blood 159 mg/dL (70-110)
[2022-02-15 20:49] LABS: Glucose,Whole Blood 133 mg/dL (70-110)
[2022-02-16] MEDS: metroNIDAZOLE-NS PMX 500 MG in SALINE 1 100ML.BAG IVPB SCH ×3 (00:19→17:48)
[2022-02-16] MEDS: MORPHINE ORAL SOLN 10 MG/5 ML CUP PO SCH ×2 (00:35→17:16)
[2022-02-16 00:36] LABS: Glucose,Whole Blood 117 mg/dL (70-110)
[2022-02-16] MEDS: INSULIN ASPART (NovoLOG) 100 UNIT/ML VIAL SQ SCH ×4 (01:49→17:48)
[2022-02-16] MEDS: NOREPINEPHRINE 32 MG in SODIUM CHLORIDE 0.9% 218 ML IV SCH (01:50)
[2022-02-16 04:10] LABS: Anisocytosis Slight; HCT 27.7 % (39.0-53.0); HGB 8.7 gm/dL (13.0-17.5); Hypochromasia Slight; MCHC 31.5 g/dL (31.0-37.0); MCV 92.1 fL (80.0-100.0); Mean Platelet Volume 11.3; Platelet Count 106 k/uL (150-450); RBC 3.01 m/uL (4.30-5.90); RDW 18.4 % (11.5-15.5); WBC 12.9 k/uL (3.8-10.6)
[2022-02-16 04:18] LABS: INR 1.1 (<1.2); Prothrombin Time 11.6 sec (9.0-12.0)
[2022-02-16 04:26] LABS: ALT <6 U/L (4-49); AST 15 U/L (17-59); African American GFR (CKD) 14 (>60 ml/min/1.73 sqM); Albumin 1.9 g/dL (3.5-5.0); Alkaline Phosphatase 99 U/L (38-126); Anion Gap 16 mmol/L; Blood Urea Nitrogen 66 mg/dL (9-20); Calcium 7.3 mg/dL (8.4-10.2); Carbon Dioxide 23 mmol/L (22-30); Chloride 95 mmol/L (98-107); Glucose 104 mg/dL (74-99); Magnesium 1.9 mg/dL (1.6-2.3); Non-African American GFR(CKD) 12 (>60 ml/min/1.73 sqM); Potassium 4.5 mmol/L (3.5-5.1); Sodium 134 mmol/L (137-145); Total Bilirubin 0.6 mg/dL (0.2-1.3); Total Protein 4.4 g/dL (6.3-8.2)
[2022-02-16 05:22] LABS: ABG Base Excess 0.4 mmol/L; ABG HCO3 25 mmol/L (21-25); ABG Hematocrit 27 % (34.0-46.0); ABG Oxygen Saturation 94.8 % (94-97); ABG PCO2 40 mmHg (35-45); ABG PH 7.41 (7.35-7.45); ABG PO2 75 mmHg (83-108); ABG TCO2 26 mmol/L (19-24)
[2022-02-16 05:24] LABS: Allen Test Performed? no
[2022-02-16 05:50] LABS: Glucose,Whole Blood 97 mg/dL (70-110)
[2022-02-16] MEDS: CALCIUM ACETATE 667 MG TAB PO SCH ×2 (05:56→17:16)
[2022-02-16] MEDS: IPRATROPIUM-ALBUTEROL 3 ML NEB INHALATION SCH ×4 (07:29→19:30)
[2022-02-16] MEDS: BUDESONIDE 1 MG/2 ML NEBU INHALATION SCH ×2 (07:29→19:30)
--- NOTE | 2022-02-16 07:49 | P.PN ---
Subjective Progress Note Date: 02/15/22 Principal diagnosis: Right foot infected pressure ulcer and bacteremia Patient is a 61-year-old male presented to the hospital for evaluation of fall patient also noticed to have a wound on the right lateral foot with some necrotic edges which has been debridement by vascular surgery on 01/31/2022.Patient has been transthoracic because of significant mental status changes, The patient ended up getting intubated, the patient also have worsening of the kidney function requiring dialysis catheter placement and has been started on dialysis as of 02/09/2022, the patient did have a PEG tube placement on 02/12/2022 On today's evaluation that is 02/15/2022, The patient is afebrile this morning, the patient FiO2 is stable at 40 %, no significant purulent secretion through the ET reported by the nursing staff, the patient is requiring low-dose pressor support , the patient has been tolerating his tube feeds and no diarrhea is reported Objective - Vital Signs Vital signs: Vital Signs Temp 98.8 F 02/15/22 12:00 Pulse 76 02/15/22 15:29 Resp 24 02/15/22 15:00 BP 111/64 02/15/22 11:00 Pulse Ox 98 02/15/22 15:00 FiO2 40 02/15/22 15:24 Intake & Output 02/14/22 02/15/22 02/15/22 18:59 06:59 18:59 Intake Total 2167.876 5190.408 6675.707 Output Total 2265 235 160 Balance -97.124 3736.790 8184.707 Weight 154.1 kg Intake: IV 649 293 641 .9 @ 20 110 0.9% Sodium Chloride @ 110 130 10mls/hr Anidulafungin 100 mg In 100 84 Sodium Chloride 0.9% 100 ml @ 84 mls/hr IVPB DAILY [facility] Rx#:[id number] Cefepime 1 gm In Sodium 50 50 100 Chloride 0.9% 50 ml @ 12. 5 mls/hr IVPB Q12HR [facility] Rx#:[id number] Dextrose 5% in Water 1, 50 000 ml @ 50 mls/hr IV . Q23H [facility] with Sodium Bicarb (1 Meq/ml) 150 ml Rx#:[id number] Pressure bags 39 33 27 levETIRAcetam IV 500 mg 100 100 In Sodium Chloride 0.9% 100 ml @ 400 mls/hr IVPB DAILY [facility] Rx#:[id number] metroNIDAZOLE-NS PMX 500 200 100 200 mg In Saline 1 100ml.bag @ 100 mls/hr IVPB Q8HR [facility] Rx#:[id number] Intake, IV Titration 303.876 133.069 53.707 Amount Norepinephrine 32 mg In 119.732 33.069 53.707 Sodium Chloride 0.9% 218 ml @ 0.05 MCG/KG/MIN 3. 246 mls/hr IV .Q24H [facility] Rx#:[id number] propofoL 1,000 mg In 184.144 100 Empty Bag 1 bag @ 5 MCG/ KG/MIN 4.08 mls/hr IV . Q24H [facility] Rx#:[id number] Tube Feeding 825 715 650 Hemodialysis 300 Other 90 150 90 Output: Urine 265 235 160 Hemodialysis 2000 Other: Voiding Method Indwelling Catheter Indwelling Catheter Indwelling Catheter ABP, PAP, CO, CI - Last Documented Arterial Blood Pressure 143/49 - Exam GENERAL DESCRIPTION: Middle-aged male intubated on the vent. LUNGS: Unlabored breathing. Decreased breath sound at the base HEART: S1, S2, regular rate and rhythm. No loud murmur ABDOMEN: Soft, no tenderness , guarding or rigidity, no organomegaly EXTREMITIES: Right foot wound is currently dressed no drainage on the dressing - Labs CBC & Chem 7: 02/16/22 03:56 02/16/22 03:56 Labs: Abnormal Lab Results - Last 24 Hours (Table) 02/14/22 02/14/22 02/14/22 Range/Units 18:03 20:47 23:58 WBC (3.8-10.6) k/uL RBC (4.30-5.90) m/uL Hgb (13.0-17.5) gm/dL Hct (39.0-53.0) % RDW (11.5-15.5) % Plt Count (150-450) k/uL Neutrophils # (Manual) (1.3-7.7) k/uL ABG pO2 (83-108) mmHg ABG Total CO2 (19-24) mmol/L ABG O2 Saturation (94-97) % ABG Hematocrit (34.0-46.0) % Hemoglobin (13.0-17.5) gm/dL Sodium (137-145) mmol/L Chloride (98-107) mmol/L BUN (9-20) mg/dL Creatinine (0.66-1.25) mg/dL Glucose (74-99) mg/dL POC Glucose (mg/dL) 122 H 130 H 114 H (70-110) mg/dL Calcium (8.4-10.2) mg/dL C-Reactive Protein (<1.0) mg/dL Procalcitonin (0.02-0.09) ng/mL 02/15/22 02/15/22 02/15/22 Range/Units 00:48 04:31 04:31 WBC (3.8-10.6) k/uL RBC (4.30-5.90) m/uL Hgb (13.0-17.5) gm/dL Hct (39.0-53.0) % RDW (11.5-15.5) % Plt Count (150-450) k/uL Neutrophils # (Manual) (1.3-7.7) k/uL ABG pO2 (83-108) mmHg ABG Total CO2 (19-24) mmol/L ABG O2 Saturation (94-97) % ABG Hematocrit (34.0-46.0) % Hemoglobin (13.0-17.5) gm/dL Sodium 134 L (137-145) mmol/L Chloride 96 L (98-107) mmol/L BUN 59 H (9-20) mg/dL Creatinine 4.21 H (0.66-1.25) mg/dL Glucose 137 H (74-99) mg/dL POC Glucose (mg/dL) 129 H (70-110) mg/dL Calcium 7.4 L (8.4-10.2) mg/dL C-Reactive Protein 5.5 H (<1.0) mg/dL Procalcitonin 2.05 H (0.02-0.09) ng/mL 02/15/22 02/15/22 02/15/22 Range/Units 04:31 05:18 06:00 WBC 13.9 H (3.8-10.6) k/uL RBC 3.30 L (4.30-5.90) m/uL Hgb 9.6 L (13.0-17.5) gm/dL Hct 30.1 L (39.0-53.0) % RDW 17.5 H (11.5-15.5) % Plt Count 96 L (150-450) k/uL Neutrophils # (Manual) 11.30 H (1.3-7.7) k/uL ABG pO2 66 L (83-108) mmHg ABG Total CO2 27 H (19-24) mmol/L ABG O2 Saturation 92.0 L (94-97) % ABG Hematocrit 29 L (34.0-46.0) % Hemoglobin 9.4 L (13.0-17.5) gm/dL Sodium (137-145) mmol/L Chloride (98-107) mmol/L BUN (9-20) mg/dL Creatinine (0.66-1.25) mg/dL Glucose (74-99) mg/dL POC Glucose (mg/dL) 156 H (70-110) mg/dL Calcium (8.4-10.2) mg/dL C-Reactive Protein (<1.0) mg/dL Procalcitonin (0.02-0.09) ng/mL 02/15/22 Range/Units 12:05 WBC (3.8-10.6) k/uL RBC (4.30-5.90) m/uL Hgb (13.0-17.5) gm/dL Hct (39.0-53.0) % RDW (11.5-15.5) % Plt Count (150-450) k/uL Neutrophils # (Manual) (1.3-7.7) k/uL ABG pO2 (83-108) mmHg ABG Total CO2 (19-24) mmol/L ABG O2 Saturation (94-97) % ABG Hematocrit (34.0-46.0) % Hemoglobin (13.0-17.5) gm/dL Sodium (137-145) mmol/L Chloride (98-107) mmol/L BUN (9-20) mg/dL Creatinine (0.66-1.25) mg/dL Glucose (74-99) mg/dL POC Glucose (mg/dL) 162 H (70-110) mg/dL Calcium (8.4-10.2) mg/dL C-Reactive Protein (<1.0) mg/dL Procalcitonin (0.02-0.09) ng/mL Microbiology - Last 24 Hours (Table) 02/14/22 04:33 Blood Culture - Preliminary Blood No Growth after 24 hours Assessment and Plan (1) Cellulitis Current Visit: Yes Status: Acute Code(s): L03.90 - CELLULITIS, UNSPECIFIED SNOMED Code(s): 298476769 Plan: 1patient with right foot unstageable pressure ulcer with surrounding necrotic area and cellulitis x-rays do not show any bony changes likely from gram- positive skin caleb and less likely gram-negative pathogen, patient is status post vascular surgery evaluation and debridement and deep cultureWhich has been finalized with strep and MSSA. 2-patient with MSSA bacteremia source is likely right foot infected pressure ulcer, Repeat blood culture has been negative 3Patient did have significant abnormality seen on the CT obtained by surgery with concern for possible fecal impaction and some inflammation of the colon and possible fistula. 4- patient sputum has been finalized with stenotrophomonas sensitive to Fortaz and should be covered with cefepime also showing Lynda albicans the patient did have persistent elevated white count and possible component of oropharyngeal candidiasis, patient to continue with Eraxis and cefepime, the patient fever has resolved repeat blood cultures are negative and white count is trending down Time with Patient: Less than 30
[2022-02-16] MEDS: ANIDULAFUNGIN 100 MG in SODIUM CHLORIDE 0.9% 100 ML IVPB SCH (08:28)
[2022-02-16] MEDS: levETIRAcetam IV 500 MG in SODIUM CHLORIDE 0.9% 100 ML IVPB SCH (08:29)
[2022-02-16] MEDS: bisacodyL 10 MG SUPP RECTAL SCH (08:29)
--- NOTE | 2022-02-16 09:08 | P.PN ---
Subjective Progress Note Date: 02/16/22 This is a extremely debilitated 61-year-old male patient who was admitted to the hospital on 01/31/2022 because of a fall and limited hemoptysis. The patient is known to have a combination of issues including diabetes mellitus and diabetic peripheral neuropathy and the patient has had previous episodes of falls and he has issues with chronic atrial flutter maintained on long-term anticoagulation with warfarin. He is morbidly obese. He has hypertension and hyperlipidemia as comorbid conditions along with chronic kidney disease. He is morbidly obese. He has history of COPD and is a chronic smoker. He comes in to the hospital after he had a fall at home. He was the bathroom and he slept and he landed on his left chest. Here in the hospital, the patient was found to be Coumadin toxic and his INR was above 10. He did have some limited hemoptysis and coffee-ground emesis without any melanotic stools. No abdominal pain. He was noted to have a large ulcer over the right ankle/malleolus area which is a chronic wound. Immediately the patient was given vitamin K. This computed tomography scan of the chest shows some right lateral eighth through 10th rib fractures with trace amount of right-sided pleural effusion and right basilar atelectasis related to underlying pulmonary contusion. No evidence of any pneumothorax. Some limited patchy airspace disease in the left upper lobe probably inflammatory in the same time the patient had dilated pulmonary arteries indicating possibility of pulmonary hypertension and a fluid and gas- filled distended stomach. I noted the patient has not had a CAT scan of the brain and a CAT scan was done that showed no acute intracranial process. There was a remote left occipital lobe injury along with some nonspecific white matter changes secondary to chronic microangiopathy. This computed tomography scan of the lumbar spine showed acute anterior wedge compression deformity of L1 vertebral body with a 30% loss in height along with multilevel degenerative disc changes and a 7 mm In the right pelvis. Patient was already seen by general surgery and orthopedic surgery. Lumbar spine x-ray that was done on 2021 showed no acute fracture. The patient was also seen by vascular surgery for a right lateral foot wound and this is a stage II wound 8.5 x 4 cm in size. Debridement was done by vascular surgery. On 02/16/2022, I'm seeing the patient for a follow-up. I saw this patient initially at time of admission and the patient had a prolonged hospitalization related to his comorbid conditions and the patient was ultimately intubated and placed on a mechanical ventilator and the plan is for today to proceed with a tracheostomy tube insertion as the patient had prolonged respiratory failure. This morning, the patient is sedated and the patient is receiving propofol at a rate of 20 mcg/kg per minute and is quite successful mechanical ventilator. He is on assist-control mode of mechanical ventilation at the rate of 24 with a tidal volume of 500 and FiO2 of 40% and a PEEP of 5. Blood gases from today shows a pH of 7.41 with a pCO2 of 40 and pO2 of 75 and the most recent chest x- ray showed a large right-sided pleural effusion in addition to left-sided pleural effusion. The right lung was also consolidated and there was some volume loss and underlying pneumonia cannot be completely excluded. The most recent blood cultures have been negative. Sputum culture was positive for stenotrophomonas and the patient was covered with appropriate antibiotics and currently remains on IV cefepime that was originally started on 02/06/2022. I also noted that the patient is on a combination of Flagyl and he is taken also Eraxis per IDs recommendation. Note that in addition to pneumonia, the patient has right foot unstageable pressure ulcer with surrounding necrosis and cellulitis and there was no underlying osteomyelitis based on the x-ray. Patient is post debridement and a the wound culture showed a combination of MSSA and strep agalactiae. There was also Lynda that was identified and the patient's sputum and due to concerns of ongoing infection ID elected to put him on Eraxis and the patient's white cell count is gradually improved from as high as 26.5 down to 12.9 today. Hemodynamically, he is on pressors and the patient is requiring norepinephrine at a dose of 0.07 mcg/kg per minute. IV fluids are at KVO and the patient has significant amount of third spacing and edema in all 4 extremities more so in the upper extremities. He is receiving hemodialysis. Last hemodialysis session was on 02/14/2022 and the patient had a total of 2 L of ultrafiltration. Prior to that, and another liter was taken off on 02/12/2022. On today's blood work, the patient's white cell count of 12.9 with hemoglobin 8.7 and a platelet count of 106. Patient has sodium level of 134, BUN is 66 and creatinine is 4.6 and the rest of the electrodes are stable and the patient's serum bicarbs at 23. Albumin level is down to 1.9 with a total protein of 4.4. In terms of enteral feeding, the patient is receiving vital h igh protein and the currently the 2 feedings are on hold as the patient is going to undergo a tracheostomy tube insertion. He does have a arterial line catheter in his right upper extremity and the patient also has a right labia and triple- lumen catheter in place. Urine output is marginal in the order of 10-20 mL an hour. In the neck fluid balance has been +1.9 L over the past 24 hours. He is currently on the sinus rhythm. Anticoagulation is on hold as the patient is going to undergo a tracheostomy tube insertion. INR today is at 1.1. Objective - Vital Signs Vital signs: Vital Signs Temp 98.8 F 02/16/22 08:00 Pulse 93 02/16/22 08:00 Resp 24 02/16/22 08:00 BP 135/61 02/16/22 08:00 Pulse Ox 95 02/16/22 08:00 FiO2 40 02/16/22 08:00 Intake & Output 02/15/22 02/16/22 02/16/22 18:59 06:59 18:59 Intake Total 1700.707 697.012 89.704 Output Total 205 245 20 Balance 1495.707 452.012 69.704 Weight 156.5 kg Intake: IV 677 311 13 0.9% Sodium Chloride @ 160 125 10 10mls/hr Anidulafungin 100 mg In 84 Sodium Chloride 0.9% 100 ml @ 84 mls/hr IVPB DAILY [facility] Rx#:[id number] Cefepime 1 gm In Sodium 100 50 Chloride 0.9% 50 ml @ 12. 5 mls/hr IVPB Q12HR [facility] Rx#:[id number] Pressure bags 33 36 3 levETIRAcetam IV 500 mg 100 In Sodium Chloride 0.9% 100 ml @ 400 mls/hr IVPB DAILY [facility] Rx#:[id number] metroNIDAZOLE-NS PMX 500 200 100 mg In Saline 1 100ml.bag @ 100 mls/hr IVPB Q8HR [facility] Rx#:[id number] Intake, IV Titration 153.707 161.012 76.704 Amount Norepinephrine 32 mg In 53.707 61.012 Sodium Chloride 0.9% 218 ml @ 0.05 MCG/KG/MIN 3. 246 mls/hr IV .Q24H [facility] Rx#:[id number] propofoL 1,000 mg In 100 100 76.704 Empty Bag 1 bag @ 5 MCG/ KG/MIN 4.08 mls/hr IV . Q24H [facility] Rx#:[id number] Tube Feeding 780 195 Other 90 30 Output: Urine 205 245 20 Other: Voiding Method Indwelling Catheter Indwelling Catheter Indwelling Catheter ABP, PAP, CO, CI - Last Documented Arterial Blood Pressure 102/50 - Exam GENERAL: BMI 39.6, intubated on a mechanical ventilator. Orogastric and orotracheal tube are both in place. The patient is currently sedated on propofol. NG tube is also in place. Head exam was generally normal. There was no scleral icterus or corneal arcus. Mucous membranes were moist. EYES: Pupils equal. Conjunctiva normal. HEENT: External appearance of nose and ears normal, oral cavity grossly normal. NECK: JVD not raised; masses not palpable. HEART: Heart sounds irregular; mild edema. LUNGS: Respiratory rate increased; decreased breath sound, prolonged expiration, coarse crackles. ABDOMEN: Soft, distended, nontender, liver spleen not palpable, no masses palpable. PSYCH: Alert and oriented x3; mood and affect anxiousl. DERMATOLOGICAL: Large wound around the lateral malleolus right foot Gangrene Changes MUSCULOSKELETAL:No Clubbing/cyanosis;muscles-grossly intact, increase in low back pain with movement NEUROLOGICAL: Patient is currently off sedation. He would thrash and arousals once taken off sedation. No focal neurological deficits. LYMPHATICS: No lymph nodes palpable in the axilla and neck - Labs CBC & Chem 7: 02/16/22 03:56 02/16/22 03:56 Labs: Abnormal Lab Results - Last 24 Hours (Table) 02/15/22 02/15/22 02/15/22 Range/Units 04:31 12:05 17:33 WBC (3.8-10.6) k/uL RBC (4.30-5.90) m/uL Hgb (13.0-17.5) gm/dL Hct (39.0-53.0) % RDW (11.5-15.5) % Plt Count (150-450) k/uL ABG pO2 (83-108) mmHg ABG Total CO2 (19-24) mmol/L ABG Hematocrit (34.0-46.0) % Hemoglobin (13.0-17.5) gm/dL Sodium (137-145) mmol/L Chloride (98-107) mmol/L BUN (9-20) mg/dL Creatinine (0.66-1.25) mg/dL Glucose (74-99) mg/dL POC Glucose (mg/dL) 162 H 159 H (70-110) mg/dL Calcium (8.4-10.2) mg/dL AST (17-59) U/L Total Protein (6.3-8.2) g/dL Albumin (3.5-5.0) g/dL Procalcitonin 2.05 H (0.02-0.09) ng/mL 02/15/22 02/16/22 02/16/22 Range/Units 20:47 00:32 03:56 WBC 12.9 H (3.8-10.6) k/uL RBC 3.01 L (4.30-5.90) m/uL Hgb 8.7 L (13.0-17.5) gm/dL Hct 27.7 L (39.0-53.0) % RDW 18.4 H (11.5-15.5) % Plt Count 106 L (150-450) k/uL ABG pO2 (83-108) mmHg ABG Total CO2 (19-24) mmol/L ABG Hematocrit (34.0-46.0) % Hemoglobin (13.0-17.5) gm/dL Sodium (137-145) mmol/L Chloride (98-107) mmol/L BUN (9-20) mg/dL Creatinine (0.66-1.25) mg/dL Glucose (74-99) mg/dL POC Glucose (mg/dL) 133 H 117 H (70-110) mg/dL Calcium (8.4-10.2) mg/dL AST (17-59) U/L Total Protein (6.3-8.2) g/dL Albumin (3.5-5.0) g/dL Procalcitonin (0.02-0.09) ng/mL 02/16/22 02/16/22 Range/Units 03:56 05:22 WBC (3.8-10.6) k/uL RBC (4.30-5.90) m/uL Hgb (13.0-17.5) gm/dL Hct (39.0-53.0) % RDW (11.5-15.5) % Plt Count (150-450) k/uL ABG pO2 75 L (83-108) mmHg ABG Total CO2 26 H (19-24) mmol/L ABG Hematocrit 27 L (34.0-46.0) % Hemoglobin 8.7 L (13.0-17.5) gm/dL Sodium 134 L (137-145) mmol/L Chloride 95 L (98-107) mmol/L BUN 66 H (9-20) mg/dL Creatinine 4.69 H (0.66-1.25) mg/dL Glucose 104 H (74-99) mg/dL POC Glucose (mg/dL) (70-110) mg/dL Calcium 7.3 L (8.4-10.2) mg/dL AST 15 L (17-59) U/L Total Protein 4.4 L (6.3-8.2) g/dL Albumin 1.9 L (3.5-5.0) g/dL Procalcitonin (0.02-0.09) ng/mL Microbiology - Last 24 Hours (Table) 02/15/22 06:05 Blood Culture - Preliminary Blood No Growth after 24 hours 02/14/22 04:33 Blood Culture - Preliminary Blood No Growth after 48 hours Assessment and Plan Plan: Acute hypercapnic respiratory failure, status post intubation and mechanical ventilation on 02/05/2022. Blood gases from today was noted. Chest x-ray from today was noted. The patient is went to undergo a tracheostomy tube today. His chest x-ray was done on 02/15/2022 and showed significant opacification of the right lung most likely secondary to a large right-sided pleural effusion along with some volume loss. There is also significant amount of effusion the left lung base. Status post PEG tube placement 02/12/2022. Anticipated tracheostomy tube insertion on February 16, for failure to wean from mechanical ventilation. Stenotrophomonas tracheobronchitis/bronchopneumonia, based on his sputum culture that was obtained on 02/05/2022. Large bilateral pleural effusion right more than left in addition to persistent consolidation of the right lung. Methicillin sensitive staph. aureus bacteremia, based on the blood cultures was obtained on 02/01/2022. Repeat cultures on 02/14/2022 and 02/15/2022 were negative. Repeat blood culture on 02/04/2022 was negative. The patient also had staph aureus in the in the right ankle wound in combination with strep agalactiae, group B. Acute metabolic encephalopathy, Acute kidney injury, patient was started on hemodialysis during this current admission and his last dialysis session was on 02/14/2022. He has a dialysis catheter in his right femoral vein. Right-sided rib fractures, traumatic in nature involving 8, 9 and 10th rib closed fall. right basilar pulmonary contusion, post fall Anterior wedge compression deformity level vertebral body with a 30% compression and multilevel degenerative disc disease Limited hemoptysis or contusion exacerbated by Coumadin toxicity , recovered COPD and chronic smoking Coumadin toxicity with an INR above 10 given vitamin K, recovered Ileus post NG tube insertion, recovered History of frequent falls, not a good candidate for anticoagulants delerium, change in the mental status COPD Chronic bronchitis/reactive to chronic smoking History of chronic atrial flutter maintained on metoprolol and anticoagulation with warfarin Chronic kidney disease, likely stage III Stage II right ankle wound measuring 8.5 x 4 cm in size and surgical debridement has been done Unstageable deep tissue injury involving the Buttock bilateral obesity Possible obstructive sleep apnea Diabetic peripheral neuropathy Chronic back pain Degenerative arthritis Hyperlipidemia History of chronic back pain and degenerative arthritis History of renal calculus measuring 7 mm in size in the right renal pelvis Plan continue with the supportive care continue vent support, no changes on a mechanical ventilator for today tracheostomy tube insertion today Keep the patient nothing by mouth Continue with pressors for now with an attempt to wean it down as long as the mean arterial pressure remains above 60 Hemodialysis hopefully today post tracheostomy tube insertion or pre- tracheostomy tube insertion and we'll coordinate this with the load checker and the surgeon Patient already has a PEG tube in place Continue same antibiotic regimen for now Would like to image his lungs either with ultrasound of the CAT scan to evaluate for pleural effusion/pneumonia. I suspect that the patient had large lateral pleural effusions and he has obvious signs of fluid overload. IV fluids are currently at KVO. We'll attempt a more aggressive ultrafiltration as long as blood pressure tolerates. Continue wound care and will discuss the findings with the general surgeon and see the patient will be a candidate for more debridement of his deep tissue injury of his buttocks bilaterally Cardiac rhythm is atrial fibrillation the rate is controlled for now. Levemir insulin 14 units at bedtime along with a sliding scale coverage Sedation with propofol Monitor urine output and electrolytes Very poor prognosis based on the above-mentioned comorbidities. We'll discuss today out, the family including the brother and the girlfriend and we'll attempt a at least a change in her CODE STATUS. Evaluation that was done and more than 30 minutes. Time with Patient: Greater than 30
[2022-02-16] MEDS: CHLORHEXIDINE GLUCONATE 15 ML CUP MUCOUS MEM SCH ×2 (09:10→20:05)
[2022-02-16] MEDS: COLLAGENASE 250 UNIT/GM OINTMENT 30 GM TUBE TOPICAL SCH (09:10)
[2022-02-16] MEDS: CEFEPIME 1 GM in SODIUM CHLORIDE 0.9% 50 ML IVPB SCH ×2 (09:10→20:31)
[2022-02-16] MEDS: PANTOPRAZOLE 40 MG/10 ML VIAL IVP SCH ×2 (09:10→20:04)
[2022-02-16] MEDS: AMIODARONE 200 MG TAB PO SCH ×2 (09:11→20:05)
[2022-02-16] MEDS: TORSEMIDE 20 MG TAB PO SCH (09:12)
[2022-02-16] MEDS: SODIUM BICARBONATE TAB 650 MG TAB PO SCH ×4 (09:13→20:05)
[2022-02-16] MEDS: PREGABALIN 100 MG CAP PO SCH ×2 (09:13→20:05)
[2022-02-16] MEDS: METOPROLOL TARTRATE 25 MG TAB PO SCH ×2 (09:13→20:05)
--- NOTE | 2022-02-16 11:19 | P.PN ---
Subjective Patient is seen in follow-up for acute kidney injury. Started on hemodialysis 02/09/2022. Intubated. On Levophed. Receiving tube feeds. Acidosis improved. Urine output about 15-25 mL an hour. Seen on hemodialysis today. Blood pressure is low. Levo fed currently at 10 mics and this will be increased. Goal UF of about 2 L Objective - Vital Signs Vital signs: Vital Signs Temp 98.8 F 02/16/22 08:00 Pulse 74 02/16/22 10:00 Resp 24 02/16/22 10:00 BP 116/66 02/16/22 10:00 Pulse Ox 95 02/16/22 10:00 FiO2 40 02/16/22 08:00 Intake & Output 02/15/22 02/16/22 02/16/22 18:59 06:59 18:59 Intake Total 1700.707 697.012 506.772 Output Total 205 245 70 Balance 1495.707 452.012 436.772 Weight 156.5 kg 156.5 kg Intake: IV 677 311 389 0.9% Sodium Chloride @ 160 125 30 10mls/hr Anidulafungin 100 mg In 84 100 Sodium Chloride 0.9% 100 ml @ 84 mls/hr IVPB DAILY [facility] Rx#:[id number] Cefepime 1 gm In Sodium 100 50 50 Chloride 0.9% 50 ml @ 12. 5 mls/hr IVPB Q12HR [facility] Rx#:[id number] Pressure bags 33 36 9 levETIRAcetam IV 500 mg 100 100 In Sodium Chloride 0.9% 100 ml @ 400 mls/hr IVPB DAILY [facility] Rx#:[id number] metroNIDAZOLE-NS PMX 500 200 100 100 mg In Saline 1 100ml.bag @ 100 mls/hr IVPB Q8HR [facility] Rx#:[id number] Intake, IV Titration 153.707 161.012 117.772 Amount Norepinephrine 32 mg In 53.707 61.012 41.068 Sodium Chloride 0.9% 218 ml @ 0.05 MCG/KG/MIN 3. 246 mls/hr IV .Q24H [facility] Rx#:[id number] propofoL 1,000 mg In 100 100 76.704 Empty Bag 1 bag @ 5 MCG/ KG/MIN 4.08 mls/hr IV . Q24H [facility] Rx#:[id number] Tube Feeding 780 195 Other 90 30 Output: Urine 205 245 70 Other: Voiding Method Indwelling Catheter Indwelling Catheter Indwelling Catheter ABP, PAP, CO, CI - Last Documented Arterial Blood Pressure 107/51 - Exam Patient is sedated and on the vent. Bilateral breath sounds are heard Examination of the heart S1 and S2 Abdomen is obese distended Examination lower extremity shows edema 2-3+ bilaterally upper and lower extremities with chronic skin changes in the legs COVERAGE ANALYST exam cannot be performed - Labs CBC & Chem 7: 02/16/22 03:56 02/16/22 03:56 Labs: Abnormal Lab Results - Last 24 Hours (Table) 02/15/22 02/15/22 02/15/22 Range/Units 12:05 17:33 20:47 WBC (3.8-10.6) k/uL RBC (4.30-5.90) m/uL Hgb (13.0-17.5) gm/dL Hct (39.0-53.0) % RDW (11.5-15.5) % Plt Count (150-450) k/uL ABG pO2 (83-108) mmHg ABG Total CO2 (19-24) mmol/L ABG Hematocrit (34.0-46.0) % Hemoglobin (13.0-17.5) gm/dL Sodium (137-145) mmol/L Chloride (98-107) mmol/L BUN (9-20) mg/dL Creatinine (0.66-1.25) mg/dL Glucose (74-99) mg/dL POC Glucose (mg/dL) 162 H 159 H 133 H (70-110) mg/dL Calcium (8.4-10.2) mg/dL AST (17-59) U/L Total Protein (6.3-8.2) g/dL Albumin (3.5-5.0) g/dL 02/16/22 02/16/22 02/16/22 Range/Units 00:32 03:56 03:56 WBC 12.9 H (3.8-10.6) k/uL RBC 3.01 L (4.30-5.90) m/uL Hgb 8.7 L (13.0-17.5) gm/dL Hct 27.7 L (39.0-53.0) % RDW 18.4 H (11.5-15.5) % Plt Count 106 L (150-450) k/uL ABG pO2 (83-108) mmHg ABG Total CO2 (19-24) mmol/L ABG Hematocrit (34.0-46.0) % Hemoglobin (13.0-17.5) gm/dL Sodium 134 L (137-145) mmol/L Chloride 95 L (98-107) mmol/L BUN 66 H (9-20) mg/dL Creatinine 4.69 H (0.66-1.25) mg/dL Glucose 104 H (74-99) mg/dL POC Glucose (mg/dL) 117 H (70-110) mg/dL Calcium 7.3 L (8.4-10.2) mg/dL AST 15 L (17-59) U/L Total Protein 4.4 L (6.3-8.2) g/dL Albumin 1.9 L (3.5-5.0) g/dL 02/16/22 Range/Units 05:22 WBC (3.8-10.6) k/uL RBC (4.30-5.90) m/uL Hgb (13.0-17.5) gm/dL Hct (39.0-53.0) % RDW (11.5-15.5) % Plt Count (150-450) k/uL ABG pO2 75 L (83-108) mmHg ABG Total CO2 26 H (19-24) mmol/L ABG Hematocrit 27 L (34.0-46.0) % Hemoglobin 8.7 L (13.0-17.5) gm/dL Sodium (137-145) mmol/L Chloride (98-107) mmol/L BUN (9-20) mg/dL Creatinine (0.66-1.25) mg/dL Glucose (74-99) mg/dL POC Glucose (mg/dL) (70-110) mg/dL Calcium (8.4-10.2) mg/dL AST (17-59) U/L Total Protein (6.3-8.2) g/dL Albumin (3.5-5.0) g/dL Microbiology - Last 24 Hours (Table) 02/15/22 06:05 Blood Culture - Preliminary Blood No Growth after 24 hours 02/14/22 04:33 Blood Culture - Preliminary Blood No Growth after 48 hours Assessment and Plan Assessment: 1. Acute kidney injury ATN secondary to sepsis and hypotension. 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 Started on hemodialysis on 02/09/2022. Urine output at 15-25 mL 1 minute. Serum creatinine in April 2019 was 0.8. No evidence of obstruction on CAT scan. 2. Acute hypoxic, hypercapnic respiratory failure currently on the vent 3. MSSA bacteremia initially on vancomycin and currently on cefazolin. Last blood cultures drawn on 02/04/2022 are negative, source is right foot ulcer 4. Hyperphosphatemia associated with acute kidney injury currently maintained on PhosLo 5. Volume overload, slowly improving with UF with hemodialysis Plan: Continue with daily treatments of hemodialysis. Consult vascular for IJ permacath placement as patient continues to be dialysis dependent
[2022-02-16 11:48] LABS: Free Kappa Lt Chain Qnt, Serum 27.27 mg/dL (0.33-1.94); Free Lambda Lt Chain Qnt, Seru 24.23 mg/dL (0.57-2.63)
--- NOTE | 2022-02-16 12:08 | P.PN ---
Subjective Progress Note Date: 02/16/22 Principal diagnosis: Right foot infected pressure ulcer and bacteremia Patient is a 61-year-old male presented to the hospital for evaluation of fall patient also noticed to have a wound on the right lateral foot with some necrotic edges which has been debridement by vascular surgery on 01/31/2022.Patient has been transthoracic because of significant mental status changes, The patient ended up getting intubated, the patient also have worsening of the kidney function requiring dialysis catheter placement and has been started on dialysis as of 02/09/2022, the patient did have a PEG tube placement on 02/12/2022 On today's evaluation that is 02/16/2022, The patient remains to be afebrile, the patient FiO2 is stable at 40 %, no significant purulent secretion through the ET reported by the nursing staff, the patient is requiring low-dose pressor support more at this time the patient undergoing dialysis , the patient has been tolerating his tube feeds and no diarrhea is reported Objective - Vital Signs Vital signs: Vital Signs Temp 98.8 F 02/16/22 08:00 Pulse 74 02/16/22 10:00 Resp 24 02/16/22 10:00 BP 116/66 02/16/22 10:00 Pulse Ox 95 02/16/22 10:00 FiO2 40 02/16/22 08:00 Intake & Output 02/15/22 02/16/22 02/16/22 18:59 06:59 18:59 Intake Total 1700.707 697.012 506.772 Output Total 205 245 70 Balance 1495.707 452.012 436.772 Weight 156.5 kg 156.5 kg Intake: IV 677 311 389 0.9% Sodium Chloride @ 160 125 30 10mls/hr Anidulafungin 100 mg In 84 100 Sodium Chloride 0.9% 100 ml @ 84 mls/hr IVPB DAILY [facility] Rx#:[id number] Cefepime 1 gm In Sodium 100 50 50 Chloride 0.9% 50 ml @ 12. 5 mls/hr IVPB Q12HR [facility] Rx#:[id number] Pressure bags 33 36 9 levETIRAcetam IV 500 mg 100 100 In Sodium Chloride 0.9% 100 ml @ 400 mls/hr IVPB DAILY [facility] Rx#:[id number] metroNIDAZOLE-NS PMX 500 200 100 100 mg In Saline 1 100ml.bag @ 100 mls/hr IVPB Q8HR [facility] Rx#:[id number] Intake, IV Titration 153.707 161.012 117.772 Amount Norepinephrine 32 mg In 53.707 61.012 41.068 Sodium Chloride 0.9% 218 ml @ 0.05 MCG/KG/MIN 3. 246 mls/hr IV .Q24H [facility] Rx#:[id number] propofoL 1,000 mg In 100 100 76.704 Empty Bag 1 bag @ 5 MCG/ KG/MIN 4.08 mls/hr IV . Q24H [facility] Rx#:[id number] Tube Feeding 780 195 Other 90 30 Output: Urine 205 245 70 Other: Voiding Method Indwelling Catheter Indwelling Catheter Indwelling Catheter ABP, PAP, CO, CI - Last Documented Arterial Blood Pressure 107/51 - Exam GENERAL DESCRIPTION: Middle-aged male intubated on the vent. LUNGS: Unlabored breathing. Decreased breath sound at the base HEART: S1, S2, regular rate and rhythm. No loud murmur ABDOMEN: Soft, no tenderness , guarding or rigidity, no organomegaly EXTREMITIES: Right foot wound is currently dressed no drainage on the dressing - Labs CBC & Chem 7: 02/16/22 03:56 02/16/22 03:56 Labs: Abnormal Lab Results - Last 24 Hours (Table) 02/15/22 02/15/22 02/15/22 Range/Units 04:31 12:05 17:33 WBC (3.8-10.6) k/uL RBC (4.30-5.90) m/uL Hgb (13.0-17.5) gm/dL Hct (39.0-53.0) % RDW (11.5-15.5) % Plt Count (150-450) k/uL ABG pO2 (83-108) mmHg ABG Total CO2 (19-24) mmol/L ABG Hematocrit (34.0-46.0) % Hemoglobin (13.0-17.5) gm/dL Sodium (137-145) mmol/L Chloride (98-107) mmol/L BUN (9-20) mg/dL Creatinine (0.66-1.25) mg/dL Glucose (74-99) mg/dL POC Glucose (mg/dL) 162 H 159 H (70-110) mg/dL Calcium (8.4-10.2) mg/dL AST (17-59) U/L Total Protein (6.3-8.2) g/dL Albumin (3.5-5.0) g/dL Free [place] LC, Quant 27.27 H (0.33-1.94) mg/dL Free Lambda LC, Quant 24.23 H (0.57-2.63) mg/dL 02/15/22 02/16/22 02/16/22 Range/Units 20:47 00:32 03:56 WBC 12.9 H (3.8-10.6) k/uL RBC 3.01 L (4.30-5.90) m/uL Hgb 8.7 L (13.0-17.5) gm/dL Hct 27.7 L (39.0-53.0) % RDW 18.4 H (11.5-15.5) % Plt Count 106 L (150-450) k/uL ABG pO2 (83-108) mmHg ABG Total CO2 (19-24) mmol/L ABG Hematocrit (34.0-46.0) % Hemoglobin (13.0-17.5) gm/dL Sodium (137-145) mmol/L Chloride (98-107) mmol/L BUN (9-20) mg/dL Creatinine (0.66-1.25) mg/dL Glucose (74-99) mg/dL POC Glucose (mg/dL) 133 H 117 H (70-110) mg/dL Calcium (8.4-10.2) mg/dL AST (17-59) U/L Total Protein (6.3-8.2) g/dL Albumin (3.5-5.0) g/dL Free [place] LC, Quant (0.33-1.94) mg/dL Free Lambda LC, Quant (0.57-2.63) mg/dL 02/16/22 02/16/22 Range/Units 03:56 05:22 WBC (3.8-10.6) k/uL RBC (4.30-5.90) m/uL Hgb (13.0-17.5) gm/dL Hct (39.0-53.0) % RDW (11.5-15.5) % Plt Count (150-450) k/uL ABG pO2 75 L (83-108) mmHg ABG Total CO2 26 H (19-24) mmol/L ABG Hematocrit 27 L (34.0-46.0) % Hemoglobin 8.7 L (13.0-17.5) gm/dL Sodium 134 L (137-145) mmol/L Chloride 95 L (98-107) mmol/L BUN 66 H (9-20) mg/dL Creatinine 4.69 H (0.66-1.25) mg/dL Glucose 104 H (74-99) mg/dL POC Glucose (mg/dL) (70-110) mg/dL Calcium 7.3 L (8.4-10.2) mg/dL AST 15 L (17-59) U/L Total Protein 4.4 L (6.3-8.2) g/dL Albumin 1.9 L (3.5-5.0) g/dL Free [place] LC, Quant (0.33-1.94) mg/dL Free [place]ambda LC, Quant (0.57-2.63) mg/dL Microbiology - Last 24 Hours (Table) 02/15/22 06:05 Blood Culture - Preliminary Blood No Growth after 24 hours 02/14/22 04:33 Blood Culture - Preliminary Blood No Growth after 48 hours Assessment and Plan (1) Cellulitis Current Visit: Yes Status: Acute Code(s): L03.90 - CELLULITIS, UNSPECIFIED SNOMED Code(s): 680006643 Plan: 1patient with right foot unstageable pressure ulcer with surrounding necrotic area and cellulitis x-rays do not show any bony changes likely from gram- positive skin caleb and less likely gram-negative pathogen, patient is status post vascular surgery evaluation and debridement and deep cultureWhich has been finalized with strep and MSSA. 2-patient with MSSA bacteremia source is likely right foot infected pressure ulcer, Repeat blood culture has been negative 3Patient did have significant abnormality seen on the CT obtained by surgery with concern for possible fecal impaction and some inflammation of the colon and possible fistula which has been ruled out by general surgery. 4- patient sputum has been finalized with stenotrophomonas sensitive to Fortaz and should be covered with cefepime also showing Lynda albicans the patient did have persistent elevated white count and possible component of oropharyngeal candidiasis, patient is afebrile white count has normalized, and to continue with Eraxis and cefepime, and monitor clinical course closely Time with Patient: Less than 30
[2022-02-16 12:27] LABS: Glucose,Whole Blood 131 mg/dL (70-110)
--- NOTE | 2022-02-16 17:25 | P.PN ---
Subjective Progress Note Date: 02/16/22 Principal diagnosis: Upper GI bleed Patient remains sedated on the ventilator. His IV pressors were increased after dialysis was performed and he had 3 L removed. His white blood cell count has improved over the last few days. Remains on 40% FiO2. He was disimpacted by myself on and apparently nursing staff also disimpacted the patient on Wednesday. Objective - Vital Signs Vital signs: Vital Signs Temp 97.9 F 02/16/22 12:00 Pulse 101 H 02/16/22 15:10 Resp 24 02/16/22 15:10 BP 137/51 02/16/22 14:00 Pulse Ox 95 02/16/22 13:00 FiO2 40 02/16/22 14:58 Intake & Output 02/15/22 02/16/22 02/16/22 18:59 06:59 18:59 Intake Total 1700.707 697.012 558.772 Output Total 873 020 0234 Balance 1495.707 452.012 -2611.228 Weight 156.5 kg 156.5 kg Intake: IV 677 311 441 0.9% Sodium Chloride @ 160 125 70 10mls/hr Anidulafungin 100 mg In 84 100 Sodium Chloride 0.9% 100 ml @ 84 mls/hr IVPB DAILY [facility] Rx#:[id number] Cefepime 1 gm In Sodium 100 50 50 Chloride 0.9% 50 ml @ 12. 5 mls/hr IVPB Q12HR [facility] Rx#:[id number] Pressure bags 33 36 21 levETIRAcetam IV 500 mg 100 100 In Sodium Chloride 0.9% 100 ml @ 400 mls/hr IVPB DAILY [facility] Rx#:[id number] metroNIDAZOLE-NS PMX 500 200 100 100 mg In Saline 1 100ml.bag @ 100 mls/hr IVPB Q8HR [facility] Rx#:[id number] Intake, IV Titration 153.707 161.012 117.772 Amount Norepinephrine 32 mg In 53.707 61.012 41.068 Sodium Chloride 0.9% 218 ml @ 0.05 MCG/KG/MIN 3. 246 mls/hr IV .Q24H [facility] Rx#:[id number] propofoL 1,000 mg In 100 100 76.704 Empty Bag 1 bag @ 5 MCG/ KG/MIN 4.08 mls/hr IV . Q24H [facility] Rx#:[id number] Tube Feeding 780 195 Other 90 30 Output: Urine 205 245 170 Hemodialysis 3000 Other: Voiding Method Indwelling Catheter Indwelling Catheter Indwelling Catheter ABP, PAP, CO, CI - Last Documented Arterial Blood Pressure 110/46 - Exam Abdomen: Soft, mild distention, nontender, PEG tube in place - Labs CBC & Chem 7: 02/16/22 03:56 02/16/22 03:56 Labs: Abnormal Lab Results - Last 24 Hours (Table) 02/15/22 02/15/22 02/15/22 Range/Units 04:31 17:33 20:47 WBC (3.8-10.6) k/uL RBC (4.30-5.90) m/uL Hgb (13.0-17.5) gm/dL Hct (39.0-53.0) % RDW (11.5-15.5) % Plt Count (150-450) k/uL ABG pO2 (83-108) mmHg ABG Total CO2 (19-24) mmol/L ABG Hematocrit (34.0-46.0) % Hemoglobin (13.0-17.5) gm/dL Sodium (137-145) mmol/L Chloride (98-107) mmol/L BUN (9-20) mg/dL Creatinine (0.66-1.25) mg/dL Glucose (74-99) mg/dL POC Glucose (mg/dL) 159 H 133 H (70-110) mg/dL Calcium (8.4-10.2) mg/dL AST (17-59) U/L Total Protein (6.3-8.2) g/dL Albumin (3.5-5.0) g/dL Free [place] LC, Quant 27.27 H (0.33-1.94) mg/dL Free Lambda LC, Quant 24.23 H (0.57-2.63) mg/dL 02/16/22 02/16/22 02/16/22 Range/Units 00:32 03:56 03:56 WBC 12.9 H (3.8-10.6) k/uL RBC 3.01 L (4.30-5.90) m/uL Hgb 8.7 L (13.0-17.5) gm/dL Hct 27.7 L (39.0-53.0) % RDW 18.4 H (11.5-15.5) % Plt Count 106 L (150-450) k/uL ABG pO2 (83-108) mmHg ABG Total CO2 (19-24) mmol/L ABG Hematocrit (34.0-46.0) % Hemoglobin (13.0-17.5) gm/dL Sodium 134 L (137-145) mmol/L Chloride 95 L (98-107) mmol/L BUN 66 H (9-20) mg/dL Creatinine 4.69 H (0.66-1.25) mg/dL Glucose 104 H (74-99) mg/dL POC Glucose (mg/dL) 117 H (70-110) mg/dL Calcium 7.3 L (8.4-10.2) mg/dL AST 15 L (17-59) U/L Total Protein 4.4 L (6.3-8.2) g/dL Albumin 1.9 L (3.5-5.0) g/dL Free [place] LC, Quant (0.33-1.94) mg/dL Free Lambda LC, Quant (0.57-2.63) mg/dL 02/16/22 02/16/22 Range/Units 05:22 12:25 WBC (3.8-10.6) k/uL RBC (4.30-5.90) m/uL Hgb (13.0-17.5) gm/dL Hct (39.0-53.0) % RDW (11.5-15.5) % Plt Count (150-450) k/uL ABG pO2 75 L (83-108) mmHg ABG Total CO2 26 H (19-24) mmol/L ABG Hematocrit 27 L (34.0-46.0) % Hemoglobin 8.7 L (13.0-17.5) gm/dL Sodium (137-145) mmol/L Chloride (98-107) mmol/L BUN (9-20) mg/dL Creatinine (0.66-1.25) mg/dL Glucose (74-99) mg/dL POC Glucose (mg/dL) 131 H (70-110) mg/dL Calcium (8.4-10.2) mg/dL AST (17-59) U/L Total Protein (6.3-8.2) g/dL Albumin (3.5-5.0) g/dL Free [place] LC, Quant (0.33-1.94) mg/dL Free Lambda LC, Quant (0.57-2.63) mg/dL Microbiology - Last 24 Hours (Table) 02/15/22 06:05 Blood Culture - Preliminary Blood No Growth after 24 hours 02/14/22 04:33 Blood Culture - Preliminary Blood No Growth after 48 hours Assessment and Plan (1) Upper GI bleed Narrative/Plan: 61-year-old male with ongoing respiratory failure. We were unable to perform the patient's tracheostomy today because of the tight scheduling in the department. I've been assured that we are able to proceed with tracheostomy tube placement tomorrow. Will resume tube feeds for now. Old tube feeds after midnight. Hopefully we can improve on the patient's pressor requirements before surgery tomorrow. Continue to hold anticoagulation. Current Visit: Yes Status: Acute Code(s): K92.2 - GASTROINTESTINAL HEMORR STEVEN, UNSPECIFIED SNOMED Code(s): 20145022
[2022-02-16 17:40] LABS: Glucose,Whole Blood 94 mg/dL (70-110)
[2022-02-16 20:30] LABS: Glucose,Whole Blood 137 mg/dL (70-110)
[2022-02-16] MEDS: INSULIN DETEMIR (LEVEMIR) 100 UNIT/ML SYR SQ SCH (20:54)
--- NOTE | 2022-02-16 22:13 | P.PN ---
Subjective Progress Note Date: 02/16/22 This is a 61-year-old patient who follows with Dr. Sridhar Chan. Chronic stable medical conditions include diabetes, hypertension, hyperlipidemia, chronic low back problems, cigarette smoker. At the baseline uses a walker. Patient slipped in the bathroom falling on his buttock. Was not able to get up. By the EMS report he had fallen 24 hours prior to the picking him up. Patient been complaining of pain in the right rib cage in the lower back. X-ray was negative for fracture. Patient continued to have significant pain especially with deep breathing. Patient also had a congestive cough and wheezing. Some bloody sputum. Denies any fever and chills. Patient also complaining of urinary retention and requesting a Shepard catheter. at the bedside. No fever no chills. Orthopedics consulted for the same. Patient normally has a bowel movement once a week. Patient also has a wound on the right foot lateral part of the ankles for about a week. Ischemic changes. From rubbing against a bedpost. Patient's INR in the ER was greater than 10. Was given vitamin K. 10 mg Patient bit with Coumadin toxicity, given vitamin K, acute COPD exacerbation, uncontrolled atrial flutter put on Lopressor, right chest wall pain. Computed tomography scan lumbar spine and chest was ordered. Large wound on the right lateral malleolus-ID and vascular consulted.. IV cefepime. February 01: Patient yesterday to see refused his computed tomography scan of the chest and lumbar spine. Done today. Right-sided rib fractures, pulmonary contusion confirm. L1 vertebral body 30% wedge compression fracture. Patient's girlfriend the bedside. It was discussed in detail with her. Patient wanting again and again to pull out his NG tube. Requests the to stay with the patient. Patient is also had the dark aspirate from the stomach for which she has NG tube. Surgery was consulted for the same. Also this morning right foot wound was debrided by Dr. Ibarra from vascular. Wound base was relatively clean. No undermining or tunneling. February 02: Delirious. NG tube to suction. Has been in restraints because point NG TUBE several times. Mumbling to himself. Dressing over the right ankle. Not in distress. Ileus. Chest x-ray showing right lower lobe/atelectasis. February 03: Hospital computer system was down. Patient remains delirious. Nasal cannula. Lethargic. Family the bedside. Antibiotics. A. fib uncontrolled. EEG evidence of metabolic encephalopathy. No clear-cut epileptiform activity. Started on Keppra by neurology. February 04: ICU: Girlfriend at the bedside. In atrial fibrillation uncontrolled. On IV Cardizem and IV amiodarone. NG tube to suction. Patient lethargic. Multiple breathing. 2 L. Oxygen. February 05: ICU. Atrial fibrillation better controlled this morning. Cardizem discontinued. Patient respiratory status worsened this morning and patient is intubated. FiO2 45 and a PEEP of 5. Atrial fibrillation, controlled. Drips include amiodarone, propofol, levo fed. Discussed with girlfriend the bedside. Understands prognosis guarded. February 06: ICU: Ventilated. FiO2 45 and a PEEP of 5. NG tube is clamped. On IV propofol. Sedated. Heart rate better controlled. Was started on Coumadin yesterday. Worsening renal function. Nephrology consulted. 02/07/2022 Patient is currently in the MICU and on mechanical ventilator. Tidal volume of 400, FiO2 40% and PEEP of 5. Patient is off pressor support today. Currently on propofol and is also on tube feeding. Chest x-ray showed stable exam with stable support lines and tubes. Correlate for congestive heart failure. Patient was given a dose of IV Lasix. Laboratory data showed WBC 18.4 hemoglobin 11.6 and platelets 458 Sodium 141 potassium 3.7 chloride 103 bicarb is 18 BUN 49 and creatinine 3.73 and calcium 7.3. INR is 2.2. Patient is being followed by nephrology cardiology and critical care team. 02/08/2022 Patient is currently on mechanical ventilator and sedated with propofol. Assist control with FiO2 40% and tidal volume of 400 and PEEP of 5. Patient is being continued on antibiotics above cefepime and Flagyl. Sputum gram stain gram-negative bacilli and Lynda. Chest x-ray today showed findings suggestive of slightly worsening CHF exacerbation as there is cardiomegaly with mild to moderate central venous congestion and small to moderate-sized bilateral pleural effusion. Laboratory test showed WBC increased to 23.6 hemoglobin 9.1 and platelets 162 I NR 3.0 Sodium 139 potassium 4.3 chloride 113 bicarb is 40 BUN 54 and creatinine worsening to 4.36 Kaylynn 12: I resumed the care of patient today ICU: Med: 40/5. Received vitamin K 5 mg IV to bring the INR down for dialysis catheter. Drips include bicarbonate, propofol, epinephrine. Patient is a stage II coccyx is ulcer. Plan is to change the NG tube to on G-tube today. For possible colitis/fistula on antibiotics. at the bedside. February 10: ICU. Ventilator 50/5. Hemodialysis catheter placed last night. Hemodialyzed yesterday and getting dialyzed today. Remains in atrial fib rillation heart rate uncontrolled. Getting up sedation holiday. Drips include bicarbonate and norepinephrine. Propofol currently held. 2 feeding at 46 mL an hour. Does open eyes. February 11: ICU. Ventilator. 50/5. Third day for hemodialysis. 1.5 L to be removed today. Back on propofol. Drips include bicarbonate, norepinephrine, propofol. On G-tube feeding. Patient back in sinus rhythm. Bag and tracheostomy to planning for next week. 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 IV antifungal started by ID. February 12: ICU: Ventilator: 40/5. Telemetry shows sinus rhythm. Drips include propofol and norepinephrine. On G-tube feeding. Discussed with the at the bedside. Understands prognosis guarded. IV antibiotics and antifungals. February 13: ICU: Ventilator: 40/5. PEG tube placed yesterday by Dr. Cornejo. Drips include bicarbonate, propofol, norepinephrine. Getting hemodialysis done today. February 14: ICU: Medicated. 2 feeding at 65 mL an hour. This included propofol and norepinephrine. Hemodialysis done today. Sinus rhythm. February 15: ICU: Ventilator: 40/5. 2 feeding at 65 mL an hour. Drips include propofol and norepinephrine. No hemodialysis today. at the bedside. Discussed. 02/16/2022 Patient seen and evaluated and follow-up continues to be in the ICU on mechanical ventilation with sedation with multiple medical consultations following. Patient is currently receiving hemodialysis and continues with a temporary dialysis catheter. Patient is still full code and overall prognosis remains extremely poor and guarded. Patient's FiO2 is 40% with a PEEP of 5. Patient also continues on antifungal along with cefepime and metronidazole with infectious disease following. Patient is sedated on propofol continues on Levophed as well. WBC is 12.9 with hemoglobin of 8.7, sodium is 134 with a potassium of 4.5 current creatinine is 4.69 with a BUN of 66. Patient is maintained on tube feedings and has received the PEG tubing is scheduled for tracheostomy tentatively today if OR available. Again overall prognosis remains extremely guarded. Physical examination: GENERAL: laying in bed, sedated on the ventilator EYES: Pupils equal. Conjunctiva normal. HEENT: External appearance of nose and ears normal, oral cavity dry, peg tube with tube feeding, endotracheal tube NECK: JVD not raised; masses not palpable. HEART: Heart sounds regular; mild edema. LUNGS: Respiratory rate increased; decreased breath sound, ABDOMEN: Soft, distended, nontender, liver spleen not palpable, no masses palpable. PEG tube. PSYCH: Unable to assess, patient sedated DERMATOLOGICAL: Wound on right ankle lateral malleolus. Under dressing. Stage II coccygeal breakdown. See nursing notes Assessment: -Coumadin toxicity. present on admission - right lung contusion.-Secondary to fall. hemoptysis on presentation -Pneumonia, secondary to Stenostrophonas maltophilia, Lynda albicans: Slow to respond -Sepsis with positive blood cultures MSSA, likely source right ankle. From January 31. -Acute hypoxic respiratory failure, multifactorial: ventilator support, intubated on 02/05 -Acute COPD exacerbation, with chronic bronchitis component in a current smoker -Chronic nicotine dependence, cigarette smoker -Paroxysmal atrial flutter,currently in sinus rhythm -Possible CKD with possible acute component. -Acute kidney injury, ATN, likely cardiorenal syndrome.: Not improving, now on dialysis since 02/09 -Acute right-sided 8-10 ribs fracture secondary to fall -Diabetes mellitus type 2, -Diabetic peripheral neuropathy -Chronic low back pain: -Anxiety depression not otherwise specified -Hyperlipidemia -Right ankle lateral, diabetic wound, stage II acute. Wound culture positive for Streptococcus agalactiae and Staphylococcus aureus. status post debridement with vascular surger on 02/01 -Acute L1 30% wedge fracture secondary to fall -Acute delirium multifactorial. -Acute ileus, NG tube for decompression.; clamped, requiring disempaction x2 -Possible colitis /fistula on computed tomography scan. -Full code Plan: Recommend continue with IV antibiotics with infectious disease following patient is currently maintained on cefepime, Flagyl, antifungal with stenotrophomonas maltophilia and Lynda along with staph aureus in the sputum and wound cultures Patient is receiving dialysis with nephrology following closely continues with a temporary catheter Patient has received a PEG tube and maintained on tube feedings although on hold today as patient is scheduled to receive a tracheostomy if OR available with surgery following Patient continues to be in the ICU on mechanical vent with an FiO2 of 40% and PEEP is 5 Recommend repeat labs and will continue to monitor closely. Overall prognosis is extremely poor and guarded The impression and plan of care has been dictated by Xochitl Leon, Nurse Practitioner as directed. Dr. Sanya MD I have performed a history and examination and MDM of this patient, discussed the same with the dictator, and agree with the dictator's assessment and plan as written ,documented as a scribe. Based on total visit time, I have performed more than 50% of the visit. Objective - Vital Signs Vital signs: Vital Signs Temp 98.8 F 02/16/22 08:00 Pulse 93 02/16/22 08:00 Resp 24 02/16/22 08:00 BP 135/61 02/16/22 08:00 Pulse Ox 95 02/16/22 08:00 FiO2 40 02/16/22 08:00 Intake & Output 02/15/22 02/16/22 02/16/22 18:59 06:59 18:59 Intake Total 1700.707 697.012 89.704 Output Total 205 245 20 Balance 1495.707 452.012 69.704 Weight 156.5 kg 156.5 kg Intake: IV 677 311 13 0.9% Sodium Chloride @ 160 125 10 10mls/hr Anidulafungin 100 mg In 84 Sodium Chloride 0.9% 100 ml @ 84 mls/hr IVPB DAILY [facility] Rx#:[id number] Cefepime 1 gm In Sodium 100 50 Chloride 0.9% 50 ml @ 12. 5 mls/hr IVPB Q12HR [facility] Rx#:[id number] Pressure bags 33 36 3 levETIRAcetam IV 500 mg 100 In Sodium Chloride 0.9% 100 ml @ 400 mls/hr IVPB DAILY [facility] Rx#:[id number] metroNIDAZOLE-NS PMX 500 200 100 mg In Saline 1 100ml.bag @ 100 mls/hr IVPB Q8HR [facility] Rx#:[id number] Intake, IV Titration 153.707 161.012 76.704 Amount Norepinephrine 32 mg In 53.707 61.012 Sodium Chloride 0.9% 218 ml @ 0.05 MCG/KG/MIN 3. 246 mls/hr IV .Q24H [facility] Rx#:[id number] propofoL 1,000 mg In 100 100 76.704 Empty Bag 1 bag @ 5 MCG/ KG/MIN 4.08 mls/hr IV . Q24H [facility] Rx#:[id number] Tube Feeding 780 195 Other 90 30 Output: Urine 205 245 20 Other: Voiding Method Indwelling Catheter Indwelling Catheter Indwelling Catheter ABP, PAP, CO, CI - Last Documented Arterial Blood Pressure 102/50 - Labs CBC & Chem 7: 02/16/22 03:56 02/16/22 03:56 Labs: Abnormal Lab Results - Last 24 Hours (Table) 02/15/22 02/15/22 02/15/22 Range/Units 04:31 12:05 17:33 WBC (3.8-10.6) k/uL RBC (4.30-5.90) m/uL Hgb (13.0-17.5) gm/dL Hct (39.0-53.0) % RDW (11.5-15.5) % Plt Count (150-450) k/uL ABG pO2 (83-108) mmHg ABG Total CO2 (19-24) mmol/L ABG Hematocrit (34.0-46.0) % Hemoglobin (13.0-17.5) gm/dL Sodium (137-145) mmol/L Chloride (98-107) mmol/L BUN (9-20) mg/dL Creatinine (0.66-1.25) mg/dL Glucose (74-99) mg/dL POC Glucose (mg/dL) 162 H 159 H (70-110) mg/dL Calcium (8.4-10.2) mg/dL AST (17-59) U/L Total Protein (6.3-8.2) g/dL Albumin (3.5-5.0) g/dL Procalcitonin 2.05 H (0.02-0.09) ng/mL 02/15/22 02/16/22 02/16/22 Range/Units 20:47 00:32 03:56 WBC 12.9 H (3.8-10.6) k/uL RBC 3.01 L (4.30-5.90) m/uL Hgb 8.7 L (13.0-17.5) gm/dL Hct 27.7 L (39.0-53.0) % RDW 18.4 H (11.5-15.5) % Plt Count 106 L (150-450) k/uL ABG pO2 (83-108) mmHg ABG Total CO2 (19-24) mmol/L ABG Hematocrit (34.0-46.0) % Hemoglobin (13.0-17.5) gm/dL Sodium (137-145) mmol/L Chloride (98-107) mmol/L BUN (9-20) mg/dL Creatinine (0.66-1.25) mg/dL Glucose (74-99) mg/dL POC Glucose (mg/dL) 133 H 117 H (70-110) mg/dL Calcium (8.4-10.2) mg/dL AST (17-59) U/L Total Protein (6.3-8.2) g/dL Albumin (3.5-5.0) g/dL Procalcitonin (0.02-0.09) ng/mL 02/16/22 02/16/22 Range/Units 03:56 05:22 WBC (3.8-10.6) k/uL RBC (4.30-5.90) m/uL Hgb (13.0-17.5) gm/dL Hct (39.0-53.0) % RDW (11.5-15.5) % Plt Count (150-450) k/uL ABG pO2 75 L (83-108) mmHg ABG Total CO2 26 H (19-24) mmol/L ABG Hematocrit 27 L (34.0-46.0) % Hemoglobin 8.7 L (13.0-17.5) gm/dL Sodium 134 L (137-145) mmol/L Chloride 95 L (98-107) mmol/L BUN 66 H (9-20) mg/dL Creatinine 4.69 H (0.66-1.25) mg/dL Glucose 104 H (74-99) mg/dL POC Glucose (mg/dL) (70-110) mg/dL Calcium 7.3 L (8.4-10.2) mg/dL AST 15 L (17-59) U/L Total Protein 4.4 L (6.3-8.2) g/dL Albumin 1.9 L (3.5-5.0) g/dL Procalcitonin (0.02-0.09) ng/mL Microbiology - Last 24 Hours (Table) 02/15/22 06:05 Blood Culture - Preliminary Blood No Growth after 24 hours 02/14/22 04:33 Blood Culture - Preliminary Blood No Growth after 48 hours
--- NOTE | 2022-02-16 22:42 | OP ---
OPERATIVE REPORT PREOPERATIVE DIAGNOSIS: Acute chronic renal failure. POSTOPERATIVE DIAGNOSIS: Acute chronic renal failure. PROCEDURE PERFORMED: Placement of a 24 cm dialysis catheter, right femoral approach. DESCRIPTION OF PROCEDURE: This patient has a dialysis catheter placed in the past, catheter not working. The right groin was prepped and draped in appropriate sterile manner. 1% lidocaine was infiltrated. Guidewire was passed through the catheter. Old catheter was removed and we placed 24 cm dialysis catheter on the top of the guidewire, flushed with heparin saline and hep-locked and secured with 3-0 nylon. Dressing applied. The patient tolerated the procedure well. MMODL / IJN: [id number] /
[2022-02-17 00:12] LABS: Glucose,Whole Blood 168 mg/dL (70-110)
[2022-02-17] MEDS: MORPHINE ORAL SOLN 10 MG/5 ML CUP PO SCH ×2 (00:17→13:27)
[2022-02-17] MEDS: metroNIDAZOLE-NS PMX 500 MG in SALINE 1 100ML.BAG IVPB SCH ×3 (00:18→18:13)
[2022-02-17] MEDS: INSULIN ASPART (NovoLOG) 100 UNIT/ML VIAL SQ SCH ×4 (00:18→18:12)
[2022-02-17 04:27] LABS: Anisocytosis Slight; HCT 28.5 % (39.0-53.0); HGB 8.9 gm/dL (13.0-17.5); Hypochromasia Moderate; MCH 29.2 pg (25.0-35.0); MCHC 31.3 g/dL (31.0-37.0); MCV 93.3 fL (80.0-100.0); Macrocytosis Slight; Mean Platelet Volume 12.4; RBC 3.06 m/uL (4.30-5.90); WBC 14.5 k/uL (3.8-10.6)
[2022-02-17 04:43] LABS: Prothrombin Time 11.2 sec (9.0-12.0)
[2022-02-17 04:48] LABS: ALT <6 U/L (4-49); AST 16 U/L (17-59); African American GFR (CKD) 15 (>60 ml/min/1.73 sqM); Alkaline Phosphatase 102 U/L (38-126); Anion Gap 16 mmol/L; Blood Urea Nitrogen 61 mg/dL (9-20); Calcium 7.6 mg/dL (8.4-10.2); Carbon Dioxide 22 mmol/L (22-30); Chloride 97 mmol/L (98-107); Glucose 148 mg/dL (74-99); Magnesium 1.9 mg/dL (1.6-2.3); Non-African American GFR(CKD) 13 (>60 ml/min/1.73 sqM); Potassium 4.8 mmol/L (3.5-5.1); Sodium 135 mmol/L (137-145); Total Bilirubin 0.7 mg/dL (0.2-1.3); Total Protein 4.6 g/dL (6.3-8.2)
[2022-02-17 05:26] LABS: Glucose,Whole Blood 147 mg/dL (70-110)
[2022-02-17 05:41] LABS: ABG HCO3 25 mmol/L (21-25); ABG Hematocrit 26 % (34.0-46.0); ABG Oxygen Saturation 95.2 % (94-97); ABG PCO2 41 mmHg (35-45); ABG PH 7.39 (7.35-7.45); ABG PO2 77 mmHg (83-108); ABG TCO2 26 mmol/L (19-24); Allen Test Performed? Yes
[2022-02-17] MEDS: CALCIUM ACETATE 667 MG TAB PO SCH ×2 (07:39→18:12)
--- NOTE | 2022-02-17 07:42 | XR ---
EXAMINATION TYPE: XR chest 1V portable DATE OF EXAM: 02/17/2022 5:42 AM COMPARISON: Chest radiographs from 01/15/2022 TECHNIQUE: XR chest 1V portable Frontal view of the chest. CLINICAL INDICATION:Male, 61 years old with history of mechanical ventilation; FINDINGS: Patient is rotated. Lungs/Pleura: Small right pleural effusion with associated atelectasis. Suspected layering left pleur al effusion also present. Pulmonary vascularity: Unremarkable. Heart/mediastinum: Cardiomediastinal silhouette is enlarged and stable. Musculoskeletal: No acute osseous pathology. Lines/Tubes: Endotracheal tube with distal tip 7.4 cm above the jodi Right internal jugular central venous catheter with distal tip at the cavoatrial junction. IMPRESSION: 1. Support line and tube in stable positions. 2. Suspected layering bilateral pleural effusions.
[2022-02-17] MEDS: IPRATROPIUM-ALBUTEROL 3 ML NEB INHALATION SCH ×4 (08:21→19:32)
[2022-02-17] MEDS: BUDESONIDE 1 MG/2 ML NEBU INHALATION SCH ×2 (08:21→19:33)
--- NOTE | 2022-02-17 08:26 | P.PN ---
Subjective Progress Note Date: 02/17/22 This is a extremely debilitated 61-year-old male patient who was admitted to the hospital on 01/31/2022 because of a fall and limited hemoptysis. The patient is known to have a combination of issues including diabetes mellitus and diabetic peripheral neuropathy and the patient has had previous episodes of falls and he has issues with chronic atrial flutter maintained on long-term anticoagulation with warfarin. He is morbidly obese. He has hypertension and hyperlipidemia as comorbid conditions along with chronic kidney disease. He is morbidly obese. He has history of COPD and is a chronic smoker. He comes in to the hospital after he had a fall at home. He was the bathroom and he slept and he landed on his left chest. Here in the hospital, the patient was found to be Coumadin toxic and his INR was above 10. He did have some limited hemoptysis and coffee-ground emesis without any melanotic stools. No abdominal pain. He was noted to have a large ulcer over the right ankle/malleolus area which is a chronic wound. Immediately the patient was given vitamin K. This computed tomography scan of the chest shows some right lateral eighth through 10th rib fractures with trace amount of right-sided pleural effusion and right basilar atelectasis related to underlying pulmonary contusion. No evidence of any pneumothorax. Some limited patchy airspace disease in the left upper lobe probably inflammatory in the same time the patient had dilated pulmonary arteries indicating possibility of pulmonary hypertension and a fluid and gas- filled distended stomach. I noted the patient has not had a CAT scan of the brain and a CAT scan was done that showed no acute intracranial process. There was a remote left occipital lobe injury along with some nonspecific white matter changes secondary to chronic microangiopathy. This computed tomography scan of the lumbar spine showed acute anterior wedge compression deformity of L1 vertebral body with a 30% loss in height along with multilevel degenerative disc changes and a 7 mm In the right pelvis. Patient was already seen by general surgery and orthopedic surgery. Lumbar spine x-ray that was done on 2021 showed no acute fracture. The patient was also seen by vascular surgery for a right lateral foot wound and this is a stage II wound 8.5 x 4 cm in size. Debridement was done by vascular surgery. On 02/16/2022, I'm seeing the patient for a follow-up. I saw this patient initially at time of admission and the patient had a prolonged hospitalization related to his comorbid conditions and the patient was ultimately intubated and placed on a mechanical ventilator and the plan is for today to proceed with a tracheostomy tube insertion as the patient had prolonged respiratory failure. This morning, the patient is sedated and the patient is receiving propofol at a rate of 20 mcg/kg per minute and is quite successful mechanical ventilator. He is on assist-control mode of mechanical ventilation at the rate of 24 with a tidal volume of 500 and FiO2 of 40% and a PEEP of 5. Blood gases from today shows a pH of 7.41 with a pCO2 of 40 and pO2 of 75 and the most recent chest x- ray showed a large right-sided pleural effusion in addition to left-sided pleural effusion. The right lung was also consolidated and there was some volume loss and underlying pneumonia cannot be completely excluded. The most recent blood cultures have been negative. Sputum culture was positive for stenotrophomonas and the patient was covered with appropriate antibiotics and currently remains on IV cefepime that was originally started on 02/06/2022. I also noted that the patient is on a combination of Flagyl and he is taken also Eraxis per IDs recommendation. Note that in addition to pneumonia, the patient has right foot unstageable pressure ulcer with surrounding necrosis and cellulitis and there was no underlying osteomyelitis based on the x-ray. Patient is post debridement and a the wound culture showed a combination of MSSA and strep agalactiae. There was also Lynda that was identified and the patient's sputum and due to concerns of ongoing infection ID elected to put him on Eraxis and the patient's white cell count is gradually improved from as high as 26.5 down to 12.9 today. Hemodynamically, he is on pressors and the patient is requiring norepinephrine at a dose of 0.07 mcg/kg per minute. IV fluids are at KVO and the patient has significant amount of third spacing and edema in all 4 extremities more so in the upper extremities. He is receiving hemodialysis. Last hemodialysis session was on 02/14/2022 and the patient had a total of 2 L of ultrafiltration. Prior to that, and another liter was taken off on 02/12/2022. On today's blood work, the patient's white cell count of 12.9 with hemoglobin 8.7 and a platelet count of 106. Patient has sodium level of 134, BUN is 66 and creatinine is 4.6 and the rest of the electrodes are stable and the patient's serum bicarbs at 23. Albumin level is down to 1.9 with a total protein of 4.4. In terms of enteral feeding, the patient is receiving vital h igh protein and the currently the 2 feedings are on hold as the patient is going to undergo a tracheostomy tube insertion. He does have a arterial line catheter in his right upper extremity and the patient also has a right labia and triple- lumen catheter in place. Urine output is marginal in the order of 10-20 mL an hour. In the neck fluid balance has been +1.9 L over the past 24 hours. He is currently on the sinus rhythm. Anticoagulation is on hold as the patient is going to undergo a tracheostomy tube insertion. INR today is at 1.1. 02/17/2022, the patient is being seen for a follow-up. The patient is still intubated on a mechanical ventilator. He did not have his tracheostomy tube insertion yesterday due to scheduling problems. This morning, the patient remains sedated and the patient is on propofol running at 15 mcg/kg per minute. He is successful mechanical ventilator and he is arranging an assist-control mode at the rate of 24 with a tidal volume of 500 and FiO2 of 40% with a PEEP of 5. The blood gases from today showing a pH of 7.39 with a pCO2 of 41 and pO2 of 77. The FiO2 was at 40%. The chest x-ray from today is showing shows adequate positioning of the orotracheal tube. The patient also has large bilateral pleural effusions as mentioned yesterday and there is no major interval change compared to yesterday. Noted the patient underwent hemodialysis yesterday and he had an ultrafiltration of 3 L of fluid. His sputum was also positive for stenotrophomonas and the patient is covered with IV cefepime the pathology started on 02/07/2020 and he continues to be on the same antibiotics for now. He remains also on IV Eraxis and Flagyl per IDs recommendations. No significant orotracheal secretions. His symptoms the mechanical ventilator. Pulse ox dre und 94%. Awaiting a tracheostomy tube insertion today. He does have a unstageable wound in his coccyx area and the patient has a wound in his right ankle that was incised and drained and the cultures showed MSSA and strep agalactiae. ID is on the case for antibiotic management. In terms of hemod ynamics, the patient remains on IV fluids at KVO. He has there are no dose of norepinephrine running at 0.03 mcg/kg per minute. Urine output is minimal at this point in time and order of 15-20 mL an hour. In terms of his blood work from today, the patient has a white cell count of 14.5 with hemoglobin of 8.9 and a platelet count of 106 from yesterday. His sodium level is at 135, BUN is at 61 with a creatinine of 4.55. Potassium level is at 4.8 with a serum bicarb of 22. His most recent pro-calcitonin level from 02/15/2022 was 2.05 which remains elevated. He is receiving enteral feeding for nutritional support through his PEG tube. He was receiving vital high protein at the rate of 58 is an hour. The tube feeds were placed on hold in anticipation for a tracheostomy tube insertion. Overall fluid balance over the past 24 hours in the order of - 1.7 L the patient underwent hemodialysis with ultrafiltration. His cardiac rhythm remains sinus. His coagulation profile shows an INR of 1.0 with a PT of 11.2. Objective - Vital Signs Vital signs: Vital Signs Temp 98.9 F 02/17/22 04:00 Pulse 89 02/17/22 07:00 Resp 24 02/17/22 07:00 BP 111/76 02/17/22 06:15 Pulse Ox 94 L 02/17/22 07:00 FiO2 40 02/17/22 04:00 Intake & Output 02/16/22 02/17/22 02/17/22 18:59 06:59 18:59 Intake Total 771.772 872.544 18 Output Total 3255 160 10 Balance -2483.228 712.544 8 Weight 156.5 kg 154 kg Intake: IV 496 361.0 18 0.9% Sodium Chloride @ 110 175 15 10mls/hr Anidulafungin 100 mg In 100 Sodium Chloride 0.9% 100 ml @ 84 mls/hr IVPB DAILY [facility] Rx#:[id number] Cefepime 1 gm In Sodium 50 50.0 Chloride 0.9% 50 ml @ 12. 5 mls/hr IVPB Q12HR [facility] Rx#:[id number] Pressure bags 36 36 3 levETIRAcetam IV 500 mg 100 In Sodium Chloride 0.9% 100 ml @ 400 mls/hr IVPB DAILY [facility] Rx#:[id number] metroNIDAZOLE-NS PMX 500 100 100 mg In Saline 1 100ml.bag @ 100 mls/hr IVPB Q8HR [facility] Rx#:[id number] Intake, IV Titration 217.772 68.544 Amount Norepinephrine 32 mg In 41.068 Sodium Chloride 0.9% 218 ml @ 0.05 MCG/KG/MIN 3. 246 mls/hr IV .Q24H [facility] Rx#:[id number] propofoL 1,000 mg In 176.704 68.544 Empty Bag 1 bag @ 5 MCG/ KG/MIN 4.08 mls/hr IV . Q24H [facility] Rx#:[id number] Tube Feeding 58 383 Other 60 Output: Urine 255 160 10 Hemodialysis 3000 Other: Voiding Method Indwelling Catheter Indwelling Catheter ABP, PAP, CO, CI - Last Documented Arterial Blood Pressure 115/52 - Exam GENERAL: BMI 39.6, intubated on a mechanical ventilator. The patient is currently sedated on propofol. ET Tube is also in place. Head exam was generally normal. There was no scleral icterus or corneal arcus. Mucous membranes were moist. EYES: Pupils equal. Conjunctiva normal. HEENT: External appearance of nose and ears normal, oral cavity grossly normal. NECK: JVD not raised; masses not palpable. HEART: Heart sounds irregular; mild edema. LUNGS: Respiratory rate increased; decreased breath sound, prolonged expiration, coarse crackles. ABDOMEN: Soft, distended, nontender, liver spleen not palpable, no masses palpable. The patient has extensive scrotal edema. DERMATOLOGICAL: Large wound around the lateral malleolus right foot Gangrene Changes. The patient has evidence of deep tissue injury to his coccyx/buttocks area. MUSCULOSKELETAL:No Clubbing/cyanosis;muscles-grossly intact, increase in low back pain with movement NEUROLOGICAL: Patient is currently off sedation. He would thrash and arousals once taken off sedation. No focal neurological deficits. LYMPHATICS: No lymph nodes palpable in the axilla and neck. The patient has extensive edema in lower extremities and upper extremity is bilaterally. He has an arterial line in his right radial. - Labs CBC & Chem 7: 02/17/22 03:52 02/17/22 03:52 Labs: Abnormal Lab Results - Last 24 Hours (Table) 02/15/22 02/16/22 02/16/22 Range/Units 04:31 12:25 20:28 WBC (3.8-10.6) k/uL RBC (4.30-5.90) m/uL Hgb (13.0-17.5) gm/dL Hct (39.0-53.0) % RDW (11.5-15.5) % ABG pO2 (83-108) mmHg ABG Total CO2 (19-24) mmol/L ABG Hematocrit (34.0-46.0) % Hemoglobin (13.0-17.5) gm/dL Sodium (137-145) mmol/L Chloride (98-107) mmol/L BUN (9-20) mg/dL Creatinine (0.66-1.25) mg/dL Glucose (74-99) mg/dL POC Glucose (mg/dL) 131 H 137 H (70-110) mg/dL Calcium (8.4-10.2) mg/dL AST (17-59) U/L Total Protein (6.3-8.2) g/dL Albumin (3.5-5.0) g/dL Free [place] LC, Quant 27.27 H (0.33-1.94) mg/dL Free Lambda LC, Quant 24.23 H (0.57-2.63) mg/dL 02/17/22 02/17/22 02/17/22 Range/Units 00:10 03:52 03:52 WBC 14.5 H (3.8-10.6) k/uL RBC 3.06 L (4.30-5.90) m/uL Hgb 8.9 L (13.0-17.5) gm/dL Hct 28.5 L (39.0-53.0) % RDW 19.0 H (11.5-15.5) % ABG pO2 (83-108) mmHg ABG Total CO2 (19-24) mmol/L ABG Hematocrit (34.0-46.0) % Hemoglobin (13.0-17.5) gm/dL Sodium 135 L (137-145) mmol/L Chloride 97 L (98-107) mmol/L BUN 61 H (9-20) mg/dL Creatinine 4.55 H (0.66-1.25) mg/dL Glucose 148 H (74-99) mg/dL POC Glucose (mg/dL) 168 H (70-110) mg/dL Calcium 7.6 L (8.4-10.2) mg/dL AST 16 L (17-59) U/L Total Protein 4.6 L (6.3-8.2) g/dL Albumin 2.0 L (3.5-5.0) g/dL Free [place] LC, Quant (0.33-1.94) mg/dL Free Lambda LC, Quant (0.57-2.63) mg/dL 02/17/22 02/17/22 Range/Units 05:23 05:37 WBC (3.8-10.6) k/uL RBC (4.30-5.90) m/uL Hgb (13.0-17.5) gm/dL Hct (39.0-53.0) % RDW (11.5-15.5) % ABG pO2 77 L (83-108) mmHg ABG Total CO2 26 H (19-24) mmol/L ABG Hematocrit 26 L (34.0-46.0) % Hemoglobin 8.6 L (13.0-17.5) gm/dL Sodium (137-145) mmol/L Chloride (98-107) mmol/L BUN (9-20) mg/dL Creatinine (0.66-1.25) mg/dL Glucose (74-99) mg/dL POC Glucose (mg/dL) 147 H (70-110) mg/dL Calcium (8.4-10.2) mg/dL AST (17-59) U/L Total Protein (6.3-8.2) g/dL Albumin (3.5-5.0) g/dL Free [place] LC, Quant (0.33-1.94) mg/dL Free Lambda LC, Quant (0.57-2.63) mg/dL Microbiology - Last 24 Hours (Table) 02/14/22 04:33 Blood Culture - Preliminary Blood No Growth after 72 hours 02/15/22 06:05 Blood Culture - Preliminary Blood No Growth after 24 hours Assessment and Plan Plan: Acute hypercapnic respiratory failure, status post intubation and mechanical ventilation on 02/05/2022. The patient has large bilateral pleural effusion right more than left along with some atelectatic changes in lung bases. The plan is to undergo a tracheostomy tube today. Following that, the patient will be gradually taken off the sedation. Meanwhile, he is completing his course of antibiotics and IV cefepime regarding stenotrophomonas was cultures in his sputum. Status post PEG tube placement 02/12/2022. Anticipated tracheostomy tube insertion on 02/17/2022, for failure to wean from mechanical ventilation. Stenotrophomonas tracheobronchitis/bronchopneumonia, based on his sputum culture that was obtained on 02/05/2022. Large bilateral pleural effusion right more than left in addition to persistent consolidation of the right lung. The patient will need dialysis and possible drainage procedure at a later stage. I'm going to ultrasound his chest to evaluate for the size and location of the pleural effusion and decided accor dingly. For now, the patient is going to undergo a tracheostomy tube insertion. Methicillin sensitive staph. aureus bacteremia, based on the blood cultures was obtained on 02/01/2022. Repeat cultures on 02/14/2022 and 02/15/2022 were negative. Repeat blood culture on 02/04/2022 was negative. The patient also had staph aureus in the in the right ankle wound in combination with strep agalactiae, group B. The most recent blood cultures from 02/15/2020 to 02/15/2022 were negative. Acute metabolic encephalopathy, Acute kidney injury, patient was started on hemodialysis during this current admission and his last dialysis session was on 02/14/2022. He has a dialysis catheter in his right femoral vein. The last hemodialysis session was yesterday without a total of 3 L of fluid was removed Right-sided rib fractures, traumatic in nature involving 8, 9 and 10th rib closed fall. right basilar pulmonary contusion, post fall Anterior wedge compression deformity level vertebral body with a 30% compression and multilevel degenerative disc disease Limited hemoptysis or contusion exacerbated by Coumadin toxicity , recovered COPD and chronic smoking Coumadin toxicity with an INR above 10 given vitamin K, recovered Ileus post NG tube insertion, recovered History of frequent falls, not a good candidate for anticoagulants delerium, change in the mental status COPD Chronic bronchitis/reactive to chronic smoking History of chronic atrial flutter maintained on metoprolol and anticoagulation with warfarin Chronic kidney disease, likely stage III Stage II right ankle wound measuring 8.5 x 4 cm in size and surgical debridement has been done Unstageable deep tissue injury involving the Buttock bilateral obesity Possible obstructive sleep apnea Diabetic peripheral neuropathy Chronic back pain Degenerative arthritis Hyperlipidemia History of chronic back pain and degenerative arthritis History of renal calculus measuring 7 mm in size in the right renal pelvis Plan continue with the supportive care continue vent support, no changes on a mechanical ventilator for today tracheostomy tube insertion today Obtain ultrasound of the chest and marked any sizable effusions Keep the patient nothing by mouth pending tracheostomy tube insertion Continue with pressors for now with an attempt to wean it down as long as the mean arterial pressure remains above 60 Hemodialysis was performed yesterday with 3 L of ultrafiltration Patient already has a PEG tube in place Continue same antibiotic regimen for now Continue wound care and will discuss the findings with the general surgeon and see the patient will be a candidate for more debridement of his deep tissue injury of his buttocks bilaterally Cardiac rhythm is sinus with PACs Levemir insulin 14 units at bedtime along with a sliding scale coverage Sedation with propofol Monitor urine output and electrolytes Very poor prognosis based on the above-mentioned comorbidities. We'll discuss today out, the family including the brother and the girlfriend and we'll attempt a at least a change in her CODE STATUS. Evaluation that was done and more than 30 minutes. Time with Patient: Greater than 30
[2022-02-17 08:31] LABS: Platelet Count 98 k/uL (150-450)
[2022-02-17] MEDS: levETIRAcetam IV 500 MG in SODIUM CHLORIDE 0.9% 100 ML IVPB SCH (08:43)
[2022-02-17] MEDS: TORSEMIDE 20 MG TAB PO SCH (08:43)
[2022-02-17] MEDS: ANIDULAFUNGIN 100 MG in SODIUM CHLORIDE 0.9% 100 ML IVPB SCH (08:43)
[2022-02-17] MEDS: CEFEPIME 1 GM in SODIUM CHLORIDE 0.9% 50 ML IVPB SCH ×2 (08:43→21:27)
[2022-02-17] MEDS: bisacodyL 10 MG SUPP RECTAL SCH (08:44)
[2022-02-17] MEDS: CHLORHEXIDINE GLUCONATE 15 ML CUP MUCOUS MEM SCH ×2 (08:44→21:27)
[2022-02-17] MEDS: SODIUM BICARBONATE TAB 650 MG TAB PO SCH (08:44)
[2022-02-17] MEDS: METOPROLOL TARTRATE 25 MG TAB PO SCH ×2 (08:44→21:27)
[2022-02-17] MEDS: PANTOPRAZOLE 40 MG/10 ML VIAL IVP SCH ×2 (08:44→21:27)
[2022-02-17] MEDS: AMIODARONE 200 MG TAB PO SCH ×2 (08:44→21:27)
[2022-02-17] MEDS: PREGABALIN 100 MG CAP PO SCH ×2 (08:44→21:27)
--- NOTE | 2022-02-17 10:22 | P.PN ---
Subjective Progress Note Date: 02/17/22 02/17/2022: Patient was seen for a follow-up. Patient continues to be intubated, sedated with propofol 50 mcg/kg/m. No clinical improvement. Patient continues to be severely encephalopathic. Patient undergoing tracheostomy today. He already had pack placement. With sedation holiday, patient does not follow commands. He does not tolerate sedation holiday. 02/08/2022: Patient was seen for a follow-up. Patient has been intubated. Currently on propofol 40 mcg/kg/m. No seizure like activity or twitching noticed. Patient's blood pressure was low today, patient started on Levophed. Patient's significant other has mentioned that patient has frequent falls for last 2 years for which he uses a walker. Without walker, his legs give out and he falls. He has broke one leg, and fractured the other. She believes that he may had a bedsore in the right ankle for 2 days prior to arrival. Then she saw a red line going up the leg. There is no fever or chills. She says that he fell at home going to the bathroom just prior to arrival to the hospital. Patient's mentation was fine when he arrived. However mentation has progressively got worse while in the hospital. Objective - Vital Signs Vital signs: Vital Signs Temp 98.9 F 02/17/22 04:00 Pulse 90 02/17/22 08:35 Resp 24 02/17/22 07:00 BP 111/76 02/17/22 06:15 Pulse Ox 94 L 02/17/22 07:00 FiO2 40 02/17/22 08:08 Intake & Output 02/16/22 02/17/22 02/17/22 18:59 06:59 18:59 Intake Total 771.772 872.544 18 Output Total 3255 160 10 Balance -2483.228 712.544 8 Weight 156.5 kg 154 kg Intake: IV 496 361.0 18 0.9% Sodium Chloride @ 110 175 15 10mls/hr Anidulafungin 100 mg In 100 Sodium Chloride 0.9% 100 ml @ 84 mls/hr IVPB DAILY [facility] Rx#:[id number] Cefepime 1 gm In Sodium 50 50.0 Chloride 0.9% 50 ml @ 12. 5 mls/hr IVPB Q12HR [facility] Rx#:[id number] Pressure bags 36 36 3 levETIRAcetam IV 500 mg 100 In Sodium Chloride 0.9% 100 ml @ 400 mls/hr IVPB DAILY [facility] Rx#:[id number] metroNIDAZOLE-NS PMX 500 100 100 mg In Saline 1 100ml.bag @ 100 mls/hr IVPB Q8HR [facility] Rx#:[id number] Intake, IV Titration 217.772 68.544 Amount Norepinephrine 32 mg In 41.068 Sodium Chloride 0.9% 218 ml @ 0.05 MCG/KG/MIN 3. 246 mls/hr IV .Q24H [facility] Rx#:[id number] propofoL 1,000 mg In 176.704 68.544 Empty Bag 1 bag @ 5 MCG/ KG/MIN 4.08 mls/hr IV . Q24H [facility] Rx#:[id number] Tube Feeding 58 383 Other 60 Output: Urine 255 160 10 Hemodialysis 3000 Other: Voiding Method Indwelling Catheter Indwelling Catheter ABP, PAP, CO, CI - Last Documented Arterial Blood Pressure 115/52 - Exam On general examination patient is morbidly obese, laying supine in the bed, does not appear to be in distress. Patient is intubated on mechanical ventilation, sedated with propofol 50 g per program per minute. Patient is comatose with GCS of 3. No seizure-like activity. Patient has significant peripheral edema. Pupils are equal, round and reactive to light. Primary gaze is midline. Patient not following any commands. Examination limited because patient is sedated. Motor and sensory functions cannot be assessed. - Labs CBC & Chem 7: 02/17/22 03:52 02/17/22 03:52 Labs: Abnormal Lab Results - Last 24 Hours (Table) 02/15/22 02/16/22 02/16/22 Range/Units 04:31 12:25 20:28 WBC (3.8-10.6) k/uL RBC (4.30-5.90) m/uL Hgb (13.0-17.5) gm/dL Hct (39.0-53.0) % RDW (11.5-15.5) % Plt Count (150-450) k/uL ABG pO2 (83-108) mmHg ABG Total CO2 (19-24) mmol/L ABG Hematocrit (34.0-46.0) % Hemoglobin (13.0-17.5) gm/dL Sodium (137-145) mmol/L Chloride (98-107) mmol/L BUN (9-20) mg/dL Creatinine (0.66-1.25) mg/dL Glucose (74-99) mg/dL POC Glucose (mg/dL) 131 H 137 H (70-110) mg/dL Calcium (8.4-10.2) mg/dL AST (17-59) U/L Total Protein (6.3-8.2) g/dL Albumin (3.5-5.0) g/dL Free [place] LC, Quant 27.27 H (0.33-1.94) mg/dL Free Lambda LC, Quant 24.23 H (0.57-2.63) mg/dL 02/17/22 02/17/22 02/17/22 Range/Units 00:10 03:52 03:52 WBC 14.5 H (3.8-10.6) k/uL RBC 3.06 L (4.30-5.90) m/uL Hgb 8.9 L (13.0-17.5) gm/dL Hct 28.5 L (39.0-53.0) % RDW 19.0 H (11.5-15.5) % Plt Count 98 L (150-450) k/uL ABG pO2 (83-108) mmHg ABG Total CO2 (19-24) mmol/L ABG Hematocrit (34.0-46.0) % Hemoglobin (13.0-17.5) gm/dL Sodium 135 L (137-145) mmol/L Chloride 97 L (98-107) mmol/L BUN 61 H (9-20) mg/dL Creatinine 4.55 H (0.66-1.25) mg/dL Glucose 148 H (74-99) mg/dL POC Glucose (mg/dL) 168 H (70-110) mg/dL Calcium 7.6 L (8.4-10.2) mg/dL AST 16 L (17-59) U/L Total Protein 4.6 L (6.3-8.2) g/dL Albumin 2.0 L (3.5-5.0) g/dL Free [place] LC, Quant (0.33-1.94) mg/dL Free Lambda LC, Quant (0.57-2.63) mg/dL 02/17/22 02/17/22 Range/Units 05:23 05:37 WBC (3.8-10.6) k/uL RBC (4.30-5.90) m/uL Hgb (13.0-17.5) gm/dL Hct (39.0-53.0) % RDW (11.5-15.5) % Plt Count (150-450) k/uL ABG pO2 77 L (83-108) mmHg ABG Total CO2 26 H (19-24) mmol/L ABG Hematocrit 26 L (34.0-46.0) % Hemoglobin 8.6 L (13.0-17.5) gm/dL Sodium (137-145) mmol/L Chloride (98-107) mmol/L BUN (9-20) mg/dL Creatinine (0.66-1.25) mg/dL Glucose (74-99) mg/dL POC Glucose (mg/dL) 147 H (70-110) mg/dL Calcium (8.4-10.2) mg/dL AST (17-59) U/L Total Protein (6.3-8.2) g/dL Albumin (3.5-5.0) g/dL Free Bowlus LC, Quant (0.33-1.94) mg/dL Free Lambda LC, Quant (0.57-2.63) mg/dL Microbiology - Last 24 Hours (Table) 02/15/22 06:05 Blood Culture - Preliminary Blood No Growth after 48 hours 02/14/22 04:33 Blood Culture - Preliminary Blood No Growth after 72 hours Assessment and Plan Assessment: * Metabolic encephalopathy. Myoclonic twitching has resolved. * Septicemia with staph aureus. * Uremia on dialysis * Cellulitis with right foot ulcer * Abnormal CT of abdomen and pelvis. Report reviewed. * Status post fall with L1 compression fracture * Moderate renal insufficiency, worsening. * Coagulopathy * Right sided rib fractures secondary to fall. * Atrial fibrillation on long-term anticoagulation with Coumadin. * Peripheral edema. * Long-standing history of frequent falls, uses walker * COPD * Chronic tobacco use * Diabetes with hemoglobin A1c 8.1 * Probable diabetic peripheral neuropathy. * Peripheral arterial disease Plan: * Patient has multiple medical issues. Multiple specialties on board. * Repeat EEG 02/11/2022 was abnormal, with background slowing, suggestive of severe encephalopathy likely due to toxic metabolic causes. No epileptiform activity was seen. 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 Mild atrophy. * Initial EEG 02/03/2022 did not reveal any status epilepticus. Some background slowing, with triphasic waves suggestive of metabolic encephalopathy. Lot of myogenic activity precluding optimal evaluation of brain waves. * Patient's renal functions are worsening. Most recent BUN 59, creatinine 4.21. Continue Keppra 500 mg once daily. If the patient recovers, then Keppra can be weaned off. * Medical management as per IM and critical care. * Patient has septicemia with staph aureus. ID following patient currently on cefepime 1 g every 12 hours. ID following. * Carotid Doppler revealed no significant stenosis. Antegrade flow in both vertebral arteries. * 2-D echo revealed normal left-ventricular size with concentric LVH. EF is 60- 65%. * Patient has atrial fibrillation. Patient was on Coumadin with therapeutic INR. Coumadin held because patient undergoing tracheostomy today. * Neurology will follow sporadically.
--- NOTE | 2022-02-17 11:23 | P.PN ---
Subjective Patient is seen in follow-up for acute kidney injury. Started on hemodialysis 02/09/2022. Intubated. On Levophed. Receiving tube feeds. Acidosis improved. Urine output about 15-25 mL an hour. Seen on hemodialysis today. Blood pressure was low initially and levo fed was increased. Currently patient's blood pressure has increased significantly and the dose is being adjusted. Heart rate had increased to about 1:30 in the goal has been decreased to about 1-1/2 L for today. Patient is scheduled for tracheostomy later on today. Objective - Vital Signs Vital signs: Vital Signs Temp 98.2 F 02/17/22 08:00 Pulse 115 H 02/17/22 10:15 Resp 24 02/17/22 10:15 BP 113/64 02/17/22 10:15 Pulse Ox 91 L 02/17/22 10:15 FiO2 40 02/17/22 08:08 Intake & Output 02/16/22 02/17/22 02/17/22 18:59 06:59 18:59 Intake Total 771.772 872.544 254.569 Output Total 3255 160 40 Balance -2483.228 712.544 214.569 Weight 156.5 kg 154 kg Intake: IV 496 361.0 72 0.9% Sodium Chloride @ 110 175 60 10mls/hr Anidulafungin 100 mg In 100 Sodium Chloride 0.9% 100 ml @ 84 mls/hr IVPB DAILY [facility] Rx#:[id number] Cefepime 1 gm In Sodium 50 50.0 Chloride 0.9% 50 ml @ 12. 5 mls/hr IVPB Q12HR [facility] Rx#:[id number] Pressure bags 36 36 12 levETIRAcetam IV 500 mg 100 In Sodium Chloride 0.9% 100 ml @ 400 mls/hr IVPB DAILY [facility] Rx#:[id number] metroNIDAZOLE-NS PMX 500 100 100 mg In Saline 1 100ml.bag @ 100 mls/hr IVPB Q8HR [facility] Rx#:[id number] Intake, IV Titration 217.772 68.544 182.569 Amount Norepinephrine 32 mg In 41.068 182.569 Sodium Chloride 0.9% 218 ml @ 0.05 MCG/KG/MIN 3. 246 mls/hr IV .Q24H [facility] Rx#:[id number] propofoL 1,000 mg In 176.704 68.544 Empty Bag 1 bag @ 5 MCG/ KG/MIN 4.08 mls/hr IV . Q24H [facility] Rx#:[id number] Tube Feeding 58 383 Other 60 Output: Urine 255 160 40 Hemodialysis 3000 Other: Voiding Method Indwelling Catheter Indwelling Catheter Indwelling Catheter ABP, PAP, CO, CI - Last Documented Arterial Blood Pressure 107/47 - Exam Patient is sedated and on the vent. Bilateral breath sounds are heard Examination of the heart S1 and S2 Abdomen is obese distended Examination lower extremity shows edema 2-3+ bilaterally upper and lower extremities with chronic skin changes in the legs. Significant scrotal edema noted [employer] exam cannot be performed - Labs CBC & Chem 7: 02/17/22 03:52 02/17/22 03:52 Labs: Abnormal Lab Results - Last 24 Hours (Table) 02/15/22 02/16/22 02/16/22 Range/Units 04:31 12:25 20:28 WBC (3.8-10.6) k/uL RBC (4.30-5.90) m/uL Hgb (13.0-17.5) gm/dL Hct (39.0-53.0) % RDW (11.5-15.5) % Plt Count (150-450) k/uL ABG pO2 (83-108) mmHg ABG Total CO2 (19-24) mmol/L ABG Hematocrit (34.0-46.0) % Hemoglobin (13.0-17.5) gm/dL Sodium (137-145) mmol/L Chloride (98-107) mmol/L BUN (9-20) mg/dL Creatinine (0.66-1.25) mg/dL Glucose (74-99) mg/dL POC Glucose (mg/dL) 131 H 137 H (70-110) mg/dL Calcium (8.4-10.2) mg/dL AST (17-59) U/L Total Protein (6.3-8.2) g/dL Albumin (3.5-5.0) g/dL Free [place] LC, Quant 27.27 H (0.33-1.94) mg/dL Free Lambda LC, Quant 24.23 H (0.57-2.63) mg/dL 02/17/22 02/17/22 02/17/22 Range/Units 00:10 03:52 03:52 WBC 14.5 H (3.8-10.6) k/uL RBC 3.06 L (4.30-5.90) m/uL Hgb 8.9 L (13.0-17.5) gm/dL Hct 28.5 L (39.0-53.0) % RDW 19.0 H (11.5-15.5) % Plt Count 98 L (150-450) k/uL ABG pO2 (83-108) mmHg ABG Total CO2 (19-24) mmol/L ABG Hematocrit (34.0-46.0) % Hemoglobin (13.0-17.5) gm/dL Sodium 135 L (137-145) mmol/L Chloride 97 L (98-107) mmol/L BUN 61 H (9-20) mg/dL Creatinine 4.55 H (0.66-1.25) mg/dL Glucose 148 H (74-99) mg/dL POC Glucose (mg/dL) 168 H (70-110) mg/dL Calcium 7.6 L (8.4-10.2) mg/dL AST 16 L (17-59) U/L Total Protein 4.6 L (6.3-8.2) g/dL Albumin 2.0 L (3.5-5.0) g/dL Free [place] LC, Quant (0.33-1.94) mg/dL Free Lambda LC, Quant (0.57-2.63) mg/dL 02/17/22 02/17/22 Range/Units 05:23 05:37 WBC (3.8-10.6) k/uL RBC (4.30-5.90) m/uL Hgb (13.0-17.5) gm/dL Hct (39.0-53.0) % RDW (11.5-15.5) % Plt Count (150-450) k/uL ABG pO2 77 L (83-108) mmHg ABG Total CO2 26 H (19-24) mmol/L ABG Hematocrit 26 L (34.0-46.0) % Hemoglobin 8.6 L (13.0-17.5) gm/dL Sodium (137-145) mmol/L Chloride (98-107) mmol/L BUN (9-20) mg/dL Creatinine (0.66-1.25) mg/dL Glucose (74-99) mg/dL POC Glucose (mg/dL) 147 H (70-110) mg/dL Calcium (8.4-10.2) mg/dL AST (17-59) U/L Total Protein (6.3-8.2) g/dL Albumin (3.5-5.0) g/dL Free [place] LC, Quant (0.33-1.94) mg/dL Free Lambda LC, Quant (0.57-2.63) mg/dL Microbiology - Last 24 Hours (Table) 01/31/22 06:45 Anaerobic Culture - Final Ankle - Right Lynda albicans 02/15/22 06:05 Blood Culture - Preliminary Blood No Growth after 48 hours 02/14/22 04:33 Blood Culture - Preliminary Blood No Growth after 72 hours Assessment and Plan Assessment: 1. Acute kidney injury ATN secondary to sepsis and hypotension. 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 Started on hemodialysis on 02/09/2022. Urine output at 15-25 mL/minute. Serum creatinine in April 2019 was 0.8. No evidence of obstruction on CAT scan. 2. Acute hypoxic, hypercapnic respiratory failure currently on the vent 3. MSSA bacteremia initially on vancomycin and currently on cefazolin. Last blood cultures drawn on 02/04/2022 are negative, source is right foot ulcer 4. Hyperphosphatemia associated with acute kidney injury currently maintained on PhosLo 5. Volume overload, slowly improving with UF with hemodialysis Plan: Continue with daily treatments of hemodialysis. DC sodium bicarb
[2022-02-17 12:02] LABS: Glucose,Whole Blood 105 mg/dL (70-110)
--- NOTE | 2022-02-17 14:33 | CDI ---
Documentation Clarification Form Date: 02/17/2022 01:45:00 PM From: Erin Daley RN, CCDS Admit Date: 01/31/2022 05:07:00 AM Patient Name: Juanpablo Troy Visit Number: [id number] Discharge Date: ATTENTION: The Clinical Documentation Specialists (CDI) and [facility] Coding Staff appreciate your assistance in clarifying documentation. Please respond to the clarification below the line at the bottom and electronically sign. The CDI & [facility] Coding staff will review the response and follow-up if needed. Please note: Queries are made part of the Legal Health Record. If you have any questions, please contact the author of this message via ITS. Dr. Derrick Moore stage II coccyx pressure ulcer is documented in the nursing Wound Care assessment starting on 02/07/22 and subsequent progress notes. Patient had a slip and fall at home landing on his buttock was not able to get up. By EMS reports had been down 24 hours prior to picking him up. Based on this information and the findings below, is there an additional diagnosis that is clinically appropriate for this patient? History/Risk Factors: Diabetes, Hypertension, Hyperlipidemia, Current smoker Clinical Indicators: 61-year-old male slipped in the bathroom falling on his buttock down for 24 hours. He complained of right rib cage and lower back pain. Location: coccyx Wound description: stage II, small, dry & intact. Treatment: Skin intervention protocol/monitoring hourly Air Mattress Turn Q2 and reposition per protocol, Incontinence Care Is there an additional diagnosis that is clinically appropriate for this patient? [ ] Coccyx Pressure Ulcer Stage 2, Present on admission [ ] Coccyx ulcer] Pressure Ulcer Stage 2, Not present on admission [ ] Other condition, please specify [ ] Unable to determine Clinical Definitions: Stage 1 Pressure Ulcer: intact skin, non-blanching redness of local area Stage 2 Pressure Ulcer: Partial thickness, loss of dermis, pink wound bed Stage 3 Pressure Ulcer: Full thickness tissue loss Stage 4 Pressure Ulcer: Full thickness tissue loss with exposed bone, tendon, or muscle. Unstageable pressure ulcer: Full thickness tissue loss in which the base of the ulcer is covered by slough (yellow, frazier, chowdhury, green or brown) and/or eschar (frazier, brown or black) in the wound bed. (Template Last Revised: July 2020) -Stage II coccyx pressure ulcer, present on admission Dictated By: Xochitl Leon Signed By: <Electronically signed by Xochitl ARIAS> 02/18/22 1354 [email or web address]
--- NOTE | 2022-02-17 15:54 | P.PN ---
Subjective Progress Note Date: 02/17/22 This is a 61-year-old patient who follows with Dr. Sridhar Chan. Chronic stable medical conditions include diabetes, hypertension, hyperlipidemia, chronic low back problems, cigarette smoker. At the baseline uses a walker. Patient slipped in the bathroom falling on his buttock. Was not able to get up. By the EMS report he had fallen 24 hours prior to the picking him up. Patient been complaining of pain in the right rib cage in the lower back. X-ray was negative for fracture. Patient continued to have significant pain especially with deep breathing. Patient also had a congestive cough and wheezing. Some bloody sputum. Denies any fever and chills. Patient also complaining of urinary retention and requesting a Shepard catheter. at the bedside. No fever no chills. Orthopedics consulted for the same. Patient normally has a bowel movement once a week. Patient also has a wound on the right foot lateral part of the ankles for about a week. Ischemic changes. From rubbing against a bedpost. Patient's INR in the ER was greater than 10. Was given vitamin K. 10 mg Patient bit with Coumadin toxicity, given vitamin K, acute COPD exacerbation, uncontrolled atrial flutter put on Lopressor, right chest wall pain. Computed tomography scan lumbar spine and chest was ordered. Large wound on the right lateral malleolus-ID and vascular consulted.. IV cefepime. February 01: Patient yesterday to see refused his computed tomography scan of the chest and lumbar spine. Done today. Right-sided rib fractures, pulmonary contusion confirm. L1 vertebral body 30% wedge compression fracture. Patient's girlfriend the bedside. It was discussed in detail with her. Patient wanting again and again to pull out his NG tube. Requests the to stay with the patient. Patient is also had the dark aspirate from the stomach for which she has NG tube. Surgery was consulted for the same. Also this morning right foot wound was debrided by Dr. Ibarra from vascular. Wound base was relatively clean. No undermining or tunneling. February 02: Delirious. NG tube to suction. Has been in restraints because point NG TUBE several times. Mumbling to himself. Dressing over the right ankle. Not in distress. Ileus. Chest x-ray showing right lower lobe/atelectasis. February 03: Hospital computer system was down. Patient remains delirious. Nasal cannula. Lethargic. Family the bedside. Antibiotics. A. fib uncontrolled. EEG evidence of metabolic encephalopathy. No clear-cut epileptiform activity. Started on Keppra by neurology. February 04: ICU: Girlfriend at the bedside. In atrial fibrillation uncontrolled. On IV Cardizem and IV amiodarone. NG tube to suction. Patient lethargic. Multiple breathing. 2 L. Oxygen. February 05: ICU. Atrial fibrillation better controlled this morning. Cardizem discontinued. Patient respiratory status worsened this morning and patient is intubated. FiO2 45 and a PEEP of 5. Atrial fibrillation, controlled. Drips include amiodarone, propofol, levo fed. Discussed with girlfriend the bedside. Understands prognosis guarded. February 06: ICU: Ventilated. FiO2 45 and a PEEP of 5. NG tube is clamped. On IV propofol. Sedated. Heart rate better controlled. Was started on Coumadin yesterday. Worsening renal function. Nephrology consulted. 02/07/2022 Patient is currently in the MICU and on mechanical ventilator. Tidal volume of 400, FiO2 40% and PEEP of 5. Patient is off pressor support today. Currently on propofol and is also on tube feeding. Chest x-ray showed stable exam with stable support lines and tubes. Correlate for congestive heart failure. Patient was given a dose of IV Lasix. Laboratory data showed WBC 18.4 hemoglobin 11.6 and platelets 458 Sodium 141 potassium 3.7 chloride 103 bicarb is 18 BUN 49 and creatinine 3.73 and calcium 7.3. INR is 2.2. Patient is being followed by nephrology cardiology and critical care team. 02/08/2022 Patient is currently on mechanical ventilator and sedated with propofol. Assist control with FiO2 40% and tidal volume of 400 and PEEP of 5. Patient is being continued on antibiotics above cefepime and Flagyl. Sputum gram stain gram-negative bacilli and Lynda. Chest x-ray today showed findings suggestive of slightly worsening CHF exacerbation as there is cardiomegaly with mild to moderate central venous congestion and small to moderate-sized bilateral pleural effusion. Laboratory test showed WBC increased to 23.6 hemoglobin 9.1 and platelets 162 I NR 3.0 Sodium 139 potassium 4.3 chloride 113 bicarb is 40 BUN 54 and creatinine worsening to 4.36 Kaylynn 12: I resumed the care of patient today ICU: Med: 40/5. Received vitamin K 5 mg IV to bring the INR down for dialysis catheter. Drips include bicarbonate, propofol, epinephrine. Patient is a stage II coccyx is ulcer. Plan is to change the NG tube to on G-tube today. For possible colitis/fistula on antibiotics. at the bedside. February 10: ICU. Ventilator 50/5. Hemodialysis catheter placed last night. Hemodialyzed yesterday and getting dialyzed today. Remains in atrial fib rillation heart rate uncontrolled. Getting up sedation holiday. Drips include bicarbonate and norepinephrine. Propofol currently held. 2 feeding at 46 mL an hour. Does open eyes. February 11: ICU. Ventilator. 50/5. Third day for hemodialysis. 1.5 L to be removed today. Back on propofol. Drips include bicarbonate, norepinephrine, propofol. On G-tube feeding. Patient back in sinus rhythm. Bag and tracheostomy to planning for next week. 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 IV antifungal started by ID. February 12: ICU: Ventilator: 40/5. Telemetry shows sinus rhythm. Drips include propofol and norepinephrine. On G-tube feeding. Discussed with the at the bedside. Understands prognosis guarded. IV antibiotics and antifungals. February 13: ICU: Ventilator: 40/5. PEG tube placed yesterday by Dr. Cornejo. Drips include bicarbonate, propofol, norepinephrine. Getting hemodialysis done today. February 14: ICU: Medicated. 2 feeding at 65 mL an hour. This included propofol and norepinephrine. Hemodialysis done today. Sinus rhythm. February 15: ICU: Ventilator: 40/5. 2 feeding at 65 mL an hour. Drips include propofol and norepinephrine. No hemodialysis today. at the bedside. Discussed. 02/16/2022 Patient seen and evaluated and follow-up continues to be in the ICU on mechanical ventilation with sedation with multiple medical consultations following. Patient is currently receiving hemodialysis and continues with a temporary dialysis catheter. Patient is still full code and overall prognosis remains extremely poor and guarded. Patient's FiO2 is 40% with a PEEP of 5. Patient also continues on antifungal along with cefepime and metronidazole with infectious disease following. Patient is sedated on propofol continues on Levophed as well. WBC is 12.9 with hemoglobin of 8.7, sodium is 134 with a potassium of 4.5 current creatinine is 4.69 with a BUN of 66. Patient is maintained on tube feedings and has received the PEG tubing is scheduled for tracheostomy tentatively today if OR available. Again overall prognosis remains extremely guarded. 02/17/2022 Patient continues to be in the ICU on mechanical vent and FiO2 remains 40% with a PEEP of 5. Patient continues on norepinephrine with multiple medical consultations following. Patient continues on propofol for sedation and also was maintained on hemodialysis almost daily. Patient continues on cefepime along with an antifungal and Flagyl with anxiety following sputum culture showing 16 oh troph ammonias maltophilia with Lynda most recent blood cultures have been negative. Patient is afebrile although WBC is elevated at 14.5 and hemoglobin is 8.9, BUN is 61 with a creatinine of 4.55, sodium is 135 and sodium bicarb tablets have been discontinued. Magnesium was 1.9. Plan is tentatively scheduled for tracheostomy with general surgery today post hemodialysis. Overall prognosis is extremely guarded. Chest x-ray shows continued bilateral pleural effusions with no significant change from previous day. Patient is maintained on tube feedings via PEG tube although on hold for surgery today Physical examination: GENERAL: laying in bed, sedated on the ventilator EYES: Pupils equal. Conjunctiva normal. HEENT: External appearance of nose and ears normal, oral cavity dry, peg tube with tube feeding, endotracheal tube NECK: JVD not raised; masses not palpable. HEART: Heart sounds regular; mild edema. LUNGS: Respiratory rate increased; decreased breath sound, ABDOMEN: Soft, distended, nontender, liver spleen not palpable, no masses palpable. PEG tube. PSYCH: Unable to assess, patient sedated DERMATOLOGICAL: Wound on right ankle lateral malleolus. Under dressing. Stage II coccygeal ulcer noted. See nursing notes Assessment: -Coumadin toxicity. present on admission - right lung contusion.-Secondary to fall. hemoptysis on presentation -Stage II coccyx pressure ulcer, present on admission -Pneumonia, secondary to Stenostrophonas maltophilia, Lynda albicans: Slow to respond -Sepsis with positive blood cultures MSSA, likely source right ankle. From January 31. -Acute hypoxic respiratory failure, multifactorial: ventilator support, intubated on 02/05 -Acute COPD exacerbation, with chronic bronchitis component in a current smoker -Chronic nicotine dependence, cigarette smoker -Paroxysmal atrial flutter,currently in sinus rhythm -Possible CKD with possible acute component. -Acute kidney injury, ATN, likely cardiorenal syndrome.: Not improving, now on dialysis since 02/09 -Acute right-sided 8-10 ribs fracture secondary to fall -Diabetes mellitus type 2, -Diabetic peripheral neuropathy -Chronic low back pain: -Anxiety depression not otherwise specified -Hyperlipidemia -Right ankle lateral, diabetic wound, stage II acute. Wound culture positive for Streptococcus agalactiae and Staphylococcus aureus. status post debridement with vascular surger on 02/01 -Acute L1 30% wedge fracture secondary to fall -Acute delirium multifactorial. -Acute ileus, NG tube for decompression.; clamped, requiring disempaction x2 -Possible colitis /fistula on computed tomography scan. -Full code Plan: Recommend continue with IV antibiotics with infectious disease following patient is currently maintained on cefepime, Flagyl, antifungal with stenotrophomonas maltophilia and Lynda along with staph aureus in the sputum and wound cultures Patient is receiving dialysis with nephrology following closely continues with a temporary catheter Patient has received a PEG tube and maintained on tube feedings although on hold today as patient is scheduled to receive a tracheostomy after hemodialysis today general surgery Patient continues to be in the ICU on mechanical vent with an FiO2 of 40% and PEEP is 5 Recommend repeat labs and will continue to monitor closely. Overall prognosis is extremely poor and guarded and CODE STATUS needs to be addressed The impression and plan of care has been dictated by Xochitl Leon, Nurse Practitioner as directed. Dr. Sanya MD I have performed a history and examination and MDM of this patient, discussed the same with the dictator, and agree with the dictator's assessment and plan as written ,documented as a scribe. Based on total visit time, I have performed more than 50% of the visit. Objective - Vital Signs Vital signs: Vital Signs Temp 98.9 F 02/17/22 04:00 Pulse 90 02/17/22 08:35 Resp 24 02/17/22 07:00 BP 111/76 02/17/22 06:15 Pulse Ox 94 L 02/17/22 07:00 FiO2 40 02/17/22 08:08 Intake & Output 02/16/22 02/17/22 02/17/22 18:59 06:59 18:59 Intake Total 771.772 872.544 18 Output Total 3255 160 10 Balance -2483.228 712.544 8 Weight 156.5 kg 154 kg Intake: IV 496 361.0 18 0.9% Sodium Chloride @ 110 175 15 10mls/hr Anidulafungin 100 mg In 100 Sodium Chloride 0.9% 100 ml @ 84 mls/hr IVPB DAILY [facility] Rx#:[id number] Cefepime 1 gm In Sodium 50 50.0 Chloride 0.9% 50 ml @ 12. 5 mls/hr IVPB Q12HR [facility] Rx#:[id number] Pressure bags 36 36 3 levETIRAcetam IV 500 mg 100 In Sodium Chloride 0.9% 100 ml @ 400 mls/hr IVPB DAILY [facility] Rx#:[id number] metroNIDAZOLE-NS PMX 500 100 100 mg In Saline 1 100ml.bag @ 100 mls/hr IVPB Q8HR [facility] Rx#:[id number] Intake, IV Titration 217.772 68.544 Amount Norepinephrine 32 mg In 41.068 Sodium Chloride 0.9% 218 ml @ 0.05 MCG/KG/MIN 3. 246 mls/hr IV .Q24H [facility] Rx#:[id number] propofoL 1,000 mg In 176.704 68.544 Empty Bag 1 bag @ 5 MCG/ KG/MIN 4.08 mls/hr IV . Q24H [facility] Rx#:[id number] Tube Feeding 58 383 Other 60 Output: Urine 255 160 10 Hemodialysis 3000 Other: Voiding Method Indwelling Catheter Indwelling Catheter ABP, PAP, CO, CI - Last Documented Arterial Blood Pressure 115/52 - Labs CBC & Chem 7: 02/17/22 03:52 02/17/22 03:52 Labs: Abnormal Lab Results - Last 24 Hours (Table) 02/15/22 02/16/22 02/16/22 Range/Units 04:31 12:25 20:28 WBC (3.8-10.6) k/uL RBC (4.30-5.90) m/uL Hgb (13.0-17.5) gm/dL Hct (39.0-53.0) % RDW (11.5-15.5) % Plt Count (150-450) k/uL ABG pO2 (83-108) mmHg ABG Total CO2 (19-24) mmol/L ABG Hematocrit (34.0-46.0) % Hemoglobin (13.0-17.5) gm/dL Sodium (137-145) mmol/L Chloride (98-107) mmol/L BUN (9-20) mg/dL Creatinine (0.66-1.25) mg/dL Glucose (74-99) mg/dL POC Glucose (mg/dL) 131 H 137 H (70-110) mg/dL Calcium (8.4-10.2) mg/dL AST (17-59) U/L Total Protein (6.3-8.2) g/dL Albumin (3.5-5.0) g/dL Free Wis[place]k LC, Quant 27.27 H (0.33-1.94) mg/dL Free Lambda LC, Quant 24.23 H (0.57-2.63) mg/dL 02/17/22 02/17/22 02/17/22 Range/Units 00:10 03:52 03:52 WBC 14.5 H (3.8-10.6) k/uL RBC 3.06 L (4.30-5.90) m/uL Hgb 8.9 L (13.0-17.5) gm/dL Hct 28.5 L (39.0-53.0) % RDW 19.0 H (11.5-15.5) % Plt Count 98 L (150-450) k/uL ABG pO2 (83-108) mmHg ABG Total CO2 (19-24) mmol/L ABG Hematocrit (34.0-46.0) % Hemoglobin (13.0-17.5) gm/dL Sodium 135 L (137-145) mmol/L Chloride 97 L (98-107) mmol/L BUN 61 H (9-20) mg/dL Creatinine 4.55 H (0.66-1.25) mg/dL Glucose 148 H (74-99) mg/dL POC Glucose (mg/dL) 168 H (70-110) mg/dL Calcium 7.6 L (8.4-10.2) mg/dL AST 16 L (17-59) U/L Total Protein 4.6 L (6.3-8.2) g/dL Albumin 2.0 L (3.5-5.0) g/dL Free Wis[place] LC, Quant (0.33-1.94) mg/dL Free Lambda LC, Quant (0.57-2.63) mg/dL 02/17/22 02/17/22 Range/Units 05:23 05:37 WBC (3.8-10.6) k/uL RBC (4.30-5.90) m/uL Hgb (13.0-17.5) gm/dL Hct (39.0-53.0) % RDW (11.5-15.5) % Plt Count (150-450) k/uL ABG pO2 77 L (83-108) mmHg ABG Total CO2 26 H (19-24) mmol/L ABG Hematocrit 26 L (34.0-46.0) % Hemoglobin 8.6 L (13.0-17.5) gm/dL Sodium (137-145) mmol/L Chloride (98-107) mmol/L BUN (9-20) mg/dL Creatinine (0.66-1.25) mg/dL Glucose (74-99) mg/dL POC Glucose (mg/dL) 147 H (70-110) mg/dL Calcium (8.4-10.2) mg/dL AST (17-59) U/L Total Protein (6.3-8.2) g/dL Albumin (3.5-5.0) g/dL Free [place] LC, Quant (0.33-1.94) mg/dL Free Lambda LC, Quant (0.57-2.63) mg/dL Microbiology - Last 24 Hours (Table) 02/15/22 06:05 Blood Culture - Preliminary Blood No Growth after 48 hours 02/14/22 04:33 Blood Culture - Preliminary Blood No Growth after 72 hours
[2022-02-17] MEDS ORDERED: ROCURONIUM 10 MG/ML (5 ML VIAL) IV ONE (16:00)
[2022-02-17] MEDS ORDERED: MIDAZOLAM 2 MG/2 ML VIAL ONE (16:00)
[2022-02-17] MEDS ORDERED: fentaNYL (PF) 50 MCG/ML 2 ML AMP ONE (16:00)
[2022-02-17] MEDS ORDERED: SODIUM CHLORIDE 0.9% 500 ML 500 ML IV ONE (16:03)
[2022-02-17] MEDS ORDERED: BUPIVACAIN-EPI 0.25%-1:200,000 30 ML VIAL SQ ONE ×2 (16:22)
--- NOTE | 2022-02-17 17:06 | P.OP ---
Date of Procedure: 02/17/22 Procedure(s) Performed: PREOPERATIVE DIAGNOSIS: Respiratory failure POSTOPERATIVE DIAGNOSIS: Same PROCEDURE: Tracheostomy SURGEON: Nelly EBL: Minimal ANESTHESIA: General COMPLICATIONS: None OPERATIVE PROCEDURE: Patient was placed in the operative table in the supine position. A shoulder roll was utilized. The neck was prepped and draped in usual sterile fashion. The skin was infiltrated with local anesthesia. A small cervical incision was created using the scalpel. Dissection through the subcutaneous fat and platysma layer took place using electrocautery. The underlying strap muscles were divided in the midline. The thyroid isthmus was divided using electrocautery as well. No bleeding was seen. The trachea was easily identified at this time. The endotracheal tube was advanced and the balloon was reinflated. The patient was preoxygenated with 100% FiO2. The FiO2 was then brought down to room air. Once the end title oxygen level was less than 35 a vertical tracheostomy was created using the electrocautery. This went through the second and third tracheal ring. The patient was again preoxygenated with 100% FiO2. The distributor operator was utilized. Carefully the endotracheal tube was withdrawn just proximal to our tracheostomy. The 8-[place] tracheostomy tube XLT with disposable inner cannula catheter was advanced under direct visualization into the trachea. The inner cannula was inserted. This was then connected to the ventilator. Positive end tidal CO2 was confirmed. The foam tracheal ties were utilized. The trach was sutured to the skin superiorly using 2 separate 0 silk sutures. The skin was closed using 3-0 Vicryl sutures. A dressing was applied. DISPOSITION: Stable to ICU
[2022-02-17 18:07] LABS: Glucose,Whole Blood 100 mg/dL (70-110)
[2022-02-17] MEDS: COLLAGENASE 250 UNIT/GM OINTMENT 30 GM TUBE TOPICAL SCH (18:11)
[2022-02-17] MEDS: NOREPINEPHRINE 32 MG in SODIUM CHLORIDE 0.9% 218 ML IV SCH (19:30)
[2022-02-17] MEDS: INSULIN DETEMIR (LEVEMIR) 100 UNIT/ML SYR SQ SCH (21:27)
[2022-02-17 23:27] LABS: Glucose,Whole Blood 94 mg/dL (70-110)
[2022-02-18] MEDS: metroNIDAZOLE-NS PMX 500 MG in SALINE 1 100ML.BAG IVPB SCH ×3 (00:50→16:58)
[2022-02-18] MEDS: INSULIN ASPART (NovoLOG) 100 UNIT/ML VIAL SQ SCH ×4 (00:51→18:31)
[2022-02-18] MEDS: MORPHINE ORAL SOLN 10 MG/5 ML CUP PO SCH ×2 (00:51→12:24)
[2022-02-18 05:57] LABS: ABG Base Excess 1.6 mmol/L; ABG HCO3 26 mmol/L (21-25); ABG Hematocrit 26 % (34.0-46.0); ABG Oxygen Saturation 94.6 % (94-97); ABG PCO2 41 mmHg (35-45); ABG PH 7.41 (7.35-7.45); ABG PO2 75 mmHg (83-108); ABG TCO2 28 mmol/L (19-24); Allen Test Performed? Yes
[2022-02-18 06:12] LABS: Glucose,Whole Blood 128 mg/dL (70-110)
[2022-02-18 06:21] LABS: Anisocytosis Slight; HCT 26.9 % (39.0-53.0); HGB 8.4 gm/dL (13.0-17.5); Hypochromasia Moderate; MCH 29.5 pg (25.0-35.0); MCHC 31.4 g/dL (31.0-37.0); MCV 93.9 fL (80.0-100.0); Macrocytosis Slight; Mean Platelet Volume 11.8; RBC 2.86 m/uL (4.30-5.90); RDW 19.4 % (11.5-15.5); WBC 10.6 k/uL (3.8-10.6)
[2022-02-18 06:24] LABS: INR 1.1 (<1.2); Prothrombin Time 11.5 sec (9.0-12.0)
[2022-02-18 06:37] LABS: ALT <6 U/L (4-49); AST 15 U/L (17-59); African American GFR (CKD) 18 (>60 ml/min/1.73 sqM); Albumin 1.9 g/dL (3.5-5.0); Alkaline Phosphatase 95 U/L (38-126); Anion Gap 13 mmol/L; Blood Urea Nitrogen 50 mg/dL (9-20); Calcium 7.2 mg/dL (8.4-10.2); Carbon Dioxide 24 mmol/L (22-30); Chloride 99 mmol/L (98-107); Glucose 115 mg/dL (74-99); Magnesium 1.8 mg/dL (1.6-2.3); Non-African American GFR(CKD) 16 (>60 ml/min/1.73 sqM); Potassium 4.1 mmol/L (3.5-5.1); Sodium 136 mmol/L (137-145); Total Bilirubin 0.7 mg/dL (0.2-1.3); Total Protein 4.3 g/dL (6.3-8.2)
[2022-02-18 06:44] LABS: Platelet Count 88 k/uL (150-450)
[2022-02-18] MEDS: CALCIUM ACETATE 667 MG TAB PO SCH ×2 (07:04→16:58)
[2022-02-18] MEDS: IPRATROPIUM-ALBUTEROL 3 ML NEB INHALATION SCH ×4 (07:19→19:25)
[2022-02-18] MEDS: BUDESONIDE 1 MG/2 ML NEBU INHALATION SCH ×2 (07:19→19:25)
--- NOTE | 2022-02-18 09:27 | P.PN ---
Subjective Progress Note Date: 02/18/22 This is a extremely debilitated 61-year-old male patient who was admitted to the hospital on 01/31/2022 because of a fall and limited hemoptysis. The patient is known to have a combination of issues including diabetes mellitus and diabetic peripheral neuropathy and the patient has had previous episodes of falls and he has issues with chronic atrial flutter maintained on long-term anticoagulation with warfarin. He is morbidly obese. He has hypertension and hyperlipidemia as comorbid conditions along with chronic kidney disease. He is morbidly obese. He has history of COPD and is a chronic smoker. He comes in to the hospital after he had a fall at home. He was the bathroom and he slept and he landed on his left chest. Here in the hospital, the patient was found to be Coumadin toxic and his INR was above 10. He did have some limited hemoptysis and coffee-ground emesis without any melanotic stools. No abdominal pain. He was noted to have a large ulcer over the right ankle/malleolus area which is a chronic wound. Immediately the patient was given vitamin K. This computed tomography scan of the chest shows some right lateral eighth through 10th rib fractures with trace amount of right-sided pleural effusion and right basilar atelectasis related to underlying pulmonary contusion. No evidence of any pneumothorax. Some limited patchy airspace disease in the left upper lobe probably inflammatory in the same time the patient had dilated pulmonary arteries indicating possibility of pulmonary hypertension and a fluid and gas- filled distended stomach. I noted the patient has not had a CAT scan of the brain and a CAT scan was done that showed no acute intracranial process. There was a remote left occipital lobe injury along with some nonspecific white matter changes secondary to chronic microangiopathy. This computed tomography scan of the lumbar spine showed acute anterior wedge compression deformity of L1 vertebral body with a 30% loss in height along with multilevel degenerative disc changes and a 7 mm In the right pelvis. Patient was already seen by general surgery and orthopedic surgery. Lumbar spine x-ray that was done on 2021 showed no acute fracture. The patient was also seen by vascular surgery for a right lateral foot wound and this is a stage II wound 8.5 x 4 cm in size. Debridement was done by vascular surgery. On 02/16/2022, I'm seeing the patient for a follow-up. I saw this patient initially at time of admission and the patient had a prolonged hospitalization related to his comorbid conditions and the patient was ultimately intubated and placed on a mechanical ventilator and the plan is for today to proceed with a tracheostomy tube insertion as the patient had prolonged respiratory failure. This morning, the patient is sedated and the patient is receiving propofol at a rate of 20 mcg/kg per minute and is quite successful mechanical ventilator. He is on assist-control mode of mechanical ventilation at the rate of 24 with a tidal volume of 500 and FiO2 of 40% and a PEEP of 5. Blood gases from today shows a pH of 7.41 with a pCO2 of 40 and pO2 of 75 and the most recent chest x- ray showed a large right-sided pleural effusion in addition to left-sided pleural effusion. The right lung was also consolidated and there was some volume loss and underlying pneumonia cannot be completely excluded. The most recent blood cultures have been negative. Sputum culture was positive for stenotrophomonas and the patient was covered with appropriate antibiotics and currently remains on IV cefepime that was originally started on 02/06/2022. I also noted that the patient is on a combination of Flagyl and he is taken also Eraxis per IDs recommendation. Note that in addition to pneumonia, the patient has right foot unstageable pressure ulcer with surrounding necrosis and cellulitis and there was no underlying osteomyelitis based on the x-ray. Patient is post debridement and a the wound culture showed a combination of MSSA and strep agalactiae. There was also Lynda that was identified and the patient's sputum and due to concerns of ongoing infection ID elected to put him on Eraxis and the patient's white cell count is gradually improved from as high as 26.5 down to 12.9 today. Hemodynamically, he is on pressors and the patient is requiring norepinephrine at a dose of 0.07 mcg/kg per minute. IV fluids are at KVO and the patient has significant amount of third spacing and edema in all 4 extremities more so in the upper extremities. He is receiving hemodialysis. Last hemodialysis session was on 02/14/2022 and the patient had a total of 2 L of ultrafiltration. Prior to that, and another liter was taken off on 02/12/2022. On today's blood work, the patient's white cell count of 12.9 with hemoglobin 8.7 and a platelet count of 106. Patient has sodium level of 134, BUN is 66 and creatinine is 4.6 and the rest of the electrodes are stable and the patient's serum bicarbs at 23. Albumin level is down to 1.9 with a total protein of 4.4. In terms of enteral feeding, the patient is receiving vital h igh protein and the currently the 2 feedings are on hold as the patient is going to undergo a tracheostomy tube insertion. He does have a arterial line catheter in his right upper extremity and the patient also has a right labia and triple- lumen catheter in place. Urine output is marginal in the order of 10-20 mL an hour. In the neck fluid balance has been +1.9 L over the past 24 hours. He is currently on the sinus rhythm. Anticoagulation is on hold as the patient is going to undergo a tracheostomy tube insertion. INR today is at 1.1. 02/17/2022, the patient is being seen for a follow-up. The patient is still intubated on a mechanical ventilator. He did not have his tracheostomy tube insertion yesterday due to scheduling problems. This morning, the patient remains sedated and the patient is on propofol running at 15 mcg/kg per minute. He is successful mechanical ventilator and he is arranging an assist-control mode at the rate of 24 with a tidal volume of 500 and FiO2 of 40% with a PEEP of 5. The blood gases from today showing a pH of 7.39 with a pCO2 of 41 and pO2 of 77. The FiO2 was at 40%. The chest x-ray from today is showing shows adequate positioning of the orotracheal tube. The patient also has large bilateral pleural effusions as mentioned yesterday and there is no major interval change compared to yesterday. Noted the patient underwent hemodialysis yesterday and he had an ultrafiltration of 3 L of fluid. His sputum was also positive for stenotrophomonas and the patient is covered with IV cefepime the pathology started on 02/07/2020 and he continues to be on the same antibiotics for now. He remains also on IV Eraxis and Flagyl per IDs recommendations. No significant orotracheal secretions. His symptoms the mechanical ventilator. Pulse ox dre und 94%. Awaiting a tracheostomy tube insertion today. He does have a unstageable wound in his coccyx area and the patient has a wound in his right ankle that was incised and drained and the cultures showed MSSA and strep agalactiae. ID is on the case for antibiotic management. In terms of hemod ynamics, the patient remains on IV fluids at KVO. He has there are no dose of norepinephrine running at 0.03 mcg/kg per minute. Urine output is minimal at this point in time and order of 15-20 mL an hour. In terms of his blood work from today, the patient has a white cell count of 14.5 with hemoglobin of 8.9 and a platelet count of 106 from yesterday. His sodium level is at 135, BUN is at 61 with a creatinine of 4.55. Potassium level is at 4.8 with a serum bicarb of 22. His most recent pro-calcitonin level from 02/15/2022 was 2.05 which remains elevated. He is receiving enteral feeding for nutritional support through his PEG tube. He was receiving vital high protein at the rate of 58 is an hour. The tube feeds were placed on hold in anticipation for a tracheostomy tube insertion. Overall fluid balance over the past 24 hours in the order of - 1.7 L the patient underwent hemodialysis with ultrafiltration. His cardiac rhythm remains sinus. His coagulation profile shows an INR of 1.0 with a PT of 11.2. 02/18/2022, the patient is being seen for a follow-up. This morning, the patient is on propofol at 25 mcg/kg per minute and we are the process of getting this patient a sedation holiday. Note that the patient was given a tracheostomy tube yesterday and the patient has a extra long Shiley tracheostomy tube #8. The patient remains on a mechanical ventilator. No significant leaks around the tracheostomy tube. The patient is an assist-control mode rate of 24 with a tid al volume of 500 and FiO2 of 40% with a PEEP of 5. His chest x-ray from yesterday was showing bilateral pleural effusions and a repeat chest x-ray will be obtained from today. Meanwhile, his blood gases from today is showing a pH of 7.41 with a pCO2 of 41 and pO2 of 75. He remains on a low dose n orepinephrine infusion at 0.07 mcg/kg per minute. IV fluids are currently at KVO. He underwent hemodialysis yesterday with a total ultrafiltration of 2 L. He remains on the same antibiotic coverage included IV cefepime, Flagyl and Eraxis. He does have an unstageable wound on his coccyx. He also has a ankle with that was incised and drained earlier. In terms of his blood work, the white cell count is at 10.6 and hemoglobin of 8.4 and platelet count of 88. His BUN is at 50 with a creatinine of 3.28. Sodium is 136 with a potassium level of 4.1 and a chloride of 99 with a bicarb of 24. INR is at 1.1. Calcium level is at 7.2 and albumin level is at 1.9. The patient is receiving vital high protein at the rate of 65 mL an hour which is goal and his serum albumin is at 1.9. The patient has no major orotracheal secretions. His cardiac rhythm remains sinus. His ankle wound is dressed. As for the coccyx, the patient has an unstageable wound and OptiForm has been applied. We'll discuss this case with general surgeon in regard to the possibility of debridement. Bowel Objective - Vital Signs Vital signs: Vital Signs Temp 97.5 F L 02/18/22 08:00 Pulse 89 02/18/22 08:30 Resp 24 02/18/22 08:30 BP 138/76 02/18/22 07:00 Pulse Ox 94 L 02/18/22 08:30 FiO2 40 02/18/22 07:18 Intake & Output 02/17/22 02/18/22 02/18/22 18:59 06:59 18:59 Intake Total 480.596 8335.363 150 Output Total 2120 150 25 Balance -5208.500 0399.363 125 Weight 153.4 kg Intake: IV 263 276 20 0.9% Sodium Chloride @ 130 120 20 10mls/hr Cefepime 1 gm In Sodium 50 Chloride 0.9% 50 ml @ 12. 5 mls/hr IVPB Q12HR [facility] Rx#:[id number] Pressure bags 33 6 metroNIDAZOLE-NS PMX 500 100 mg In Saline 1 100ml.bag @ 100 mls/hr IVPB Q8HR [facility] Rx#:[id number] Intake, IV Titration 182.569 326.363 Amount Norepinephrine 32 mg In 182.569 26.363 Sodium Chloride 0.9% 218 ml @ 0.05 MCG/KG/MIN 3. 246 mls/hr IV .Q24H [facility] Rx#:[id number] propofoL 1,000 mg In 300 Empty Bag 1 bag @ 5 MCG/ KG/MIN 4.08 mls/hr IV . Q24H [facility] Rx#:[id number] Tube Feeding 715 130 Hemodialysis 300 Other 90 Output: Urine 115 150 25 Hemodialysis 2000 Estimated Blood Loss 5 Other: Voiding Method Indwelling Catheter Indwelling Catheter ABP, PAP, CO, CI - Last Documented Arterial Blood Pressure 104/45 - Exam GENERAL: BMI 39.6, intubated on a mechanical ventilator. The patient is currently sedated on propofol. Tracheostomy tube is in place without any evidence of air leak around the tracheostomy tube stoma. The patient is calm and comfortable and second is a mechanical ventilator. Head exam was generally normal. There was no scleral icterus or corneal arcus. Mucous membranes were moist. EYES: Pupils equal. Conjunctiva normal. HEENT: External appearance of nose and ears normal, oral cavity grossly normal. NECK: JVD not raised; masses not palpable. HEART: Heart sounds irregular; mild edema. LUNGS: decreased breath sound, prolonged expiration, coarse crackles. The breath sounds are diminished in lung bases bilaterally. ABDOMEN: Soft, distended, nontender, liver spleen not palpable, no masses palpable. The patient has extensive scrotal edema. DERMATOLOGICAL: Large wound around the lateral malleolus right foot Gangrene Changes. The patient has evidence of deep tissue injury to his coccyx/buttocks area. MUSCULOSKELETAL:No Clubbing/cyanosis;muscles-grossly intact, increase in low carrie k pain with movement NEUROLOGICAL: Patient is currently off sedation. He would thrash and arousals once taken off sedation. No focal neurological deficits. LYMPHATICS: No lymph nodes palpable in the axilla and neck. The patient has extensive edema in lower extremities and upper extremity is bilaterally. He has an arterial line in his right radial. - Labs CBC & Chem 7: 02/18/22 06:10 02/18/22 06:10 Labs: Abnormal Lab Results - Last 24 Hours (Table) 02/18/22 02/18/22 02/18/22 Range/Units 05:52 06:10 06:10 RBC 2.86 L (4.30-5.90) m/uL Hgb 8.4 L (13.0-17.5) gm/dL Hct 26.9 L (39.0-53.0) % RDW 19.4 H (11.5-15.5) % Plt Count 88 L (150-450) k/uL ABG pO2 75 L (83-108) mmHg ABG HCO3 26 H (21-25) mmol/L ABG Total CO2 28 H (19-24) mmol/L ABG Hematocrit 26 L (34.0-46.0) % Hemoglobin 8.4 L (13.0-17.5) gm/dL Sodium 136 L (137-145) mmol/L BUN 50 H (9-20) mg/dL Creatinine 3.78 H (0.66-1.25) mg/dL Glucose 115 H (74-99) mg/dL POC Glucose (mg/dL) (70-110) mg/dL Calcium 7.2 L (8.4-10.2) mg/dL AST 15 L (17-59) U/L Total Protein 4.3 L (6.3-8.2) g/dL Albumin 1.9 L (3.5-5.0) g/dL 02/18/22 Range/Units 06:10 RBC (4.30-5.90) m/uL Hgb (13.0-17.5) gm/dL Hct (39.0-53.0) % RDW (11.5-15.5) % Plt Count (150-450) k/uL ABG pO2 (83-108) mmHg ABG HCO3 (21-25) mmol/L ABG Total CO2 (19-24) mmol/L ABG Hematocrit (34.0-46.0) % Hemoglobin (13.0-17.5) gm/dL Sodium (137-145) mmol/L BUN (9-20) mg/dL Creatinine (0.66-1.25) mg/dL Glucose (74-99) mg/dL POC Glucose (mg/dL) 128 H (70-110) mg/dL Calcium (8.4-10.2) mg/dL AST (17-59) U/L Total Protein (6.3-8.2) g/dL Albumin (3.5-5.0) g/dL Microbiology - Last 24 Hours (Table) 02/15/22 06:05 Blood Culture - Preliminary Blood No Growth after 72 hours 02/14/22 04:33 Blood Culture - Preliminary Blood No Growth after 96 hours 01/31/22 06:45 Anaerobic Culture - Final Ankle - Right Lynda albicans Assessment and Plan Plan: Acute hypercapnic respiratory failure, status post intubation and mechanical ventilation on 02/05/2022. The patient has large bilateral pleural effusion right more than left along with some atelectatic changes in lung bases. The patient is post tracheostomy tube insertion. Blood gases was noted. Chest x- ray to be obtained today. His last hemodialysis session was yesterday. We'll reevaluate the patient with another chest x-ray we'll give the patient a sedation holiday. Status post PEG tube placement 02/12/2022. The patient is receiving enteral feeding for nutritional support with vital high protein. Stenotrophomonas tracheobronchitis/bronchopneumonia, based on his sputum culture that was obtained on 02/05/2022. Large bilateral pleural effusion right more than left in addition to persistent consolidation of the right lung. Methicillin sensitive staph. aureus bacteremia, based on the blood cultures was obtained on 02/01/2022. Repeat cultures on 02/14/2022 and 02/15/2022 were negative. Repeat blood culture on 02/04/2022 was negative. The patient also had staph aureus in the in the right ankle wound in combination with strep agalactiae, group B. The most recent blood cultures from 02/15/2020 to 02/15/2022 were negative. Acute metabolic encephalopathy, currently on propofol Acute kidney injury, patient was started on hemodialysis. Anticoagulation The last hemodialysis session was yesterday without a total of 2 L of fluid was removed on 02/17/2022 and 3 L on 02/16/2022 Right-sided rib fractures, traumatic in nature involving 8, 9 and 10th rib closed fall. right basilar pulmonary contusion, post fall Anterior wedge compression deformity level vertebral body with a 30% compression and multilevel degenerative disc disease Limited hemoptysis or contusion exacerbated by Coumadin toxicity , recovered COPD and chronic smoking Coumadin toxicity with an INR above 10 given vitamin K, recovered Ileus post NG tube insertion, recovered History of frequent falls, not a good candidate for anticoagulants delerium, change in the mental status COPD Chronic bronchitis/reactive to chronic smoking History of chronic atrial flutter maintained on metoprolol and anticoagulation with warfarin Chronic kidney disease, likely stage III Stage II right ankle wound measuring 8.5 x 4 cm in size and surgical debridement has been done Unstageable deep tissue injury involving the Buttock bilateral obesity Possible obstructive sleep apnea Diabetic peripheral neuropathy Chronic back pain Degenerative arthritis Hyperlipidemia History of chronic back pain and degenerative arthritis History of renal calculus measuring 7 mm in size in the right renal pelvis Plan continue with the supportive care continue vent support, no changes on a mechanical ventilator for today tracheostomy tube was inserted yesterday and the patient will be given a sedation holiday today and he will be taken off the propofol and his mental status will be assessed. No ventilator changes. A repeat chest x-ray will be done today. We'll continue daily dialysis hoping to optimize his volume status. The patient has bilateral pleural effusions and will make consider drainage at a later stage which a difficult task as the patient will be technically very difficult for thoracentesis. Continue with pressors for now with an attempt to wean it down as long as the mean arterial pressure remains above 60 Hemodialysis was performed yesterday with 2 L of ultrafiltration Patient already has a PEG tube in place, continue enteral feeding for nutritional support Levemi Continue same antibiotic regimen for now Continue wound care and will discuss the findings with the general surgeon and see the patient will be a candidate for more debridement of his deep tissue injury of his buttocks bilaterally Cardiac rhythm is sinus with PACs Levemir insulin 14 units at bedtime along with a sliding scale coverage Very poor prognosis based on the above-mentioned comorbidities. We'll discuss today out, the family including the brother and the girlfriend and we'll attempt a at least a change in her CODE STATUS. Evaluation that was done and more than 30 minutes. Time with Patient: Greater than 30
--- NOTE | 2022-02-18 10:15 | XR ---
EXAMINATION TYPE: XR chest 1V portable DATE OF EXAM: 02/18/2022 COMPARISON: Chest x-ray 02/17/2022 HISTORY: Shortness of breath TECHNIQUE: Single frontal view of the chest is obtained. FINDINGS: Tracheostomy tube has been placed in the interval, endotracheal tube has been removed. Rig ht subclavian central venous catheter remains in place. Apical pleural thickening is present on the r ight. There are overlying artifacts. No evident pneumothorax. Hemidiaphragms are obscured. Heart may be enlarged. There is prominence interstitium, mixed airspace disease noted. IMPRESSION: Interval tracheostomy tube placement. Correlate for congestive heart failure, there may be pleural effusions and associated atelectasis versus edema, pneumonia not excluded. Stable right ap ical pleural thickening is indeterminate.
[2022-02-18] MEDS: CEFEPIME 1 GM in SODIUM CHLORIDE 0.9% 50 ML IVPB SCH ×2 (10:38→20:11)
[2022-02-18] MEDS: ANIDULAFUNGIN 100 MG in SODIUM CHLORIDE 0.9% 100 ML IVPB SCH (10:38)
[2022-02-18] MEDS: levETIRAcetam IV 500 MG in SODIUM CHLORIDE 0.9% 100 ML IVPB SCH (10:39)
[2022-02-18] MEDS: CHLORHEXIDINE GLUCONATE 15 ML CUP MUCOUS MEM SCH ×2 (10:39→20:12)
[2022-02-18] MEDS: PREGABALIN 100 MG CAP PO SCH ×2 (10:40→20:13)
[2022-02-18] MEDS: TORSEMIDE 20 MG TAB PO SCH (10:40)
[2022-02-18] MEDS: AMIODARONE 200 MG TAB PO SCH ×2 (10:40→20:12)
[2022-02-18] MEDS: bisacodyL 10 MG SUPP RECTAL SCH (10:40)
[2022-02-18] MEDS: METOPROLOL TARTRATE 25 MG TAB PO SCH ×2 (10:40→20:12)
[2022-02-18] MEDS: COLLAGENASE 250 UNIT/GM OINTMENT 30 GM TUBE TOPICAL SCH (10:41)
[2022-02-18] MEDS: PANTOPRAZOLE 40 MG/10 ML VIAL IVP SCH ×2 (10:41→20:11)
--- NOTE | 2022-02-18 10:59 | P.PN ---
Subjective Progress Note Date: 02/18/22 Principal diagnosis: Upper GI bleed Patient remains sedated on the ventilator. No issues with the tracheostomy overnight. Patient is tolerating tube feeds once again. No bowel movements reported per nursing staff. Objective - Vital Signs Vital signs: Vital Signs Temp 97.5 F L 02/18/22 08:00 Pulse 100 02/18/22 10:51 Resp 24 02/18/22 09:15 BP 138/76 02/18/22 09:00 Pulse Ox 95 02/18/22 09:15 FiO2 40 02/18/22 10:37 Intake & Output 02/17/22 02/18/22 02/18/22 18:59 06:59 18:59 Intake Total 406.310 1124.363 369.562 Output Total 2120 150 40 Balance -8120.311 1164.363 329.562 Weight 153.4 kg 153.4 kg Intake: IV 263 276 30 0.9% Sodium Chloride @ 130 120 30 10mls/hr Cefepime 1 gm In Sodium 50 Chloride 0.9% 50 ml @ 12. 5 mls/hr IVPB Q12HR [facility] Rx#:[id number] Pressure bags 33 6 metroNIDAZOLE-NS PMX 500 100 mg In Saline 1 100ml.bag @ 100 mls/hr IVPB Q8HR [facility] Rx#:[id number] Intake, IV Titration 182.569 326.363 144.562 Amount Norepinephrine 32 mg In 182.569 26.363 68.402 Sodium Chloride 0.9% 218 ml @ 0.05 MCG/KG/MIN 3. 246 mls/hr IV .Q24H [facility] Rx#:[id number] propofoL 1,000 mg In 300 76.16 Empty Bag 1 bag @ 5 MCG/ KG/MIN 4.08 mls/hr IV . Q24H [facility] Rx#:[id number] Tube Feeding 715 195 Hemodialysis 300 Other 90 Output: Urine 115 150 40 Hemodialysis 2000 Estimated Blood Loss 5 Other: Voiding Method Indwelling Catheter Indwelling Catheter ABP, PAP, CO, CI - Last Documented Arterial Blood Pressure 113/47 - Exam Tracheostomy and PEG tube both in place without evidence of bleeding or erythema, no air leak at trach site - Labs CBC & Chem 7: 02/18/22 06:10 02/18/22 06:10 Labs: Abnormal Lab Results - Last 24 Hours (Table) 02/18/22 02/18/22 02/18/22 Range/Units 05:52 06:10 06:10 RBC 2.86 L (4.30-5.90) m/uL Hgb 8.4 L (13.0-17.5) gm/dL Hct 26.9 L (39.0-53.0) % RDW 19.4 H (11.5-15.5) % Plt Count 88 L (150-450) k/uL ABG pO2 75 L (83-108) mmHg ABG HCO3 26 H (21-25) mmol/L ABG Total CO2 28 H (19-24) mmol/L ABG Hematocrit 26 L (34.0-46.0) % Hemoglobin 8.4 L (13.0-17.5) gm/dL Sodium 136 L (137-145) mmol/L BUN 50 H (9-20) mg/dL Creatinine 3.78 H (0.66-1.25) mg/dL Glucose 115 H (74-99) mg/dL POC Glucose (mg/dL) (70-110) mg/dL Calcium 7.2 L (8.4-10.2) mg/dL AST 15 L (17-59) U/L Total Protein 4.3 L (6.3-8.2) g/dL Albumin 1.9 L (3.5-5.0) g/dL 02/18/22 Range/Units 06:10 RBC (4.30-5.90) m/uL Hgb (13.0-17.5) gm/dL Hct (39.0-53.0) % RDW (11.5-15.5) % Plt Count (150-450) k/uL ABG pO2 (83-108) mmHg ABG HCO3 (21-25) mmol/L ABG Total CO2 (19-24) mmol/L ABG Hematocrit (34.0-46.0) % Hemoglobin (13.0-17.5) gm/dL Sodium (137-145) mmol/L BUN (9-20) mg/dL Creatinine (0.66-1.25) mg/dL Glucose (74-99) mg/dL POC Glucose (mg/dL) 128 H (70-110) mg/dL Calcium (8.4-10.2) mg/dL AST (17-59) U/L Total Protein (6.3-8.2) g/dL Albumin (3.5-5.0) g/dL Microbiology - Last 24 Hours (Table) 02/15/22 06:05 Blood Culture - Preliminary Blood No Growth after 72 hours 02/14/22 04:33 Blood Culture - Preliminary Blood No Growth after 96 hours 01/31/22 06:45 Anaerobic Culture - Final Ankle - Right Lynda albicans Assessment and Plan (1) Upper GI bleed Narrative/Plan: Continue supportive care per pulmonary. Continue tube feeds at goal. Monitor bowel function. Will follow. Current Visit: Yes Status: Acute Code(s): K92.2 - GASTROINTESTINAL HEMORRH AGE, UNSPECIFIED SNOMED Code(s): 19677057
[2022-02-18] MEDS: LACTULOSE 20 GM/30 ML CUP PO SCH ×2 (11:10→20:12)
[2022-02-18 11:20] LABS: Glucose,Whole Blood 127 mg/dL (70-110)
[2022-02-18] MEDS: NOREPINEPHRINE 32 MG in SODIUM CHLORIDE 0.9% 218 ML IV SCH (12:56)
--- NOTE | 2022-02-18 13:54 | P.PN ---
Subjective Progress Note Date: 02/18/22 This is a 61-year-old patient who follows with Dr. Sridhar Chan. Chronic stable medical conditions include diabetes, hypertension, hyperlipidemia, chronic low back problems, cigarette smoker. At the baseline uses a walker. Patient slipped in the bathroom falling on his buttock. Was not able to get up. By the EMS report he had fallen 24 hours prior to the picking him up. Patient been complaining of pain in the right rib cage in the lower back. X-ray was negative for fracture. Patient continued to have significant pain especially with deep breathing. Patient also had a congestive cough and wheezing. Some bloody sputum. Denies any fever and chills. Patient also complaining of urinary retention and requesting a Shepard catheter. at the bedside. No fever no chills. Orthopedics consulted for the same. Patient normally has a bowel movement once a week. Patient also has a wound on the right foot lateral part of the ankles for about a week. Ischemic changes. From rubbing against a bedpost. Patient's INR in the ER was greater than 10. Was given vitamin K. 10 mg Patient bit with Coumadin toxicity, given vitamin K, acute COPD exacerbation, uncontrolled atrial flutter put on Lopressor, right chest wall pain. Computed tomography scan lumbar spine and chest was ordered. Large wound on the right lateral malleolus-ID and vascular consulted.. IV cefepime. February 01: Patient yesterday to see refused his computed tomography scan of the chest and lumbar spine. Done today. Right-sided rib fractures, pulmonary contusion confirm. L1 vertebral body 30% wedge compression fracture. Patient's girlfriend the bedside. It was discussed in detail with her. Patient wanting again and again to pull out his NG tube. Requests the to stay with the patient. Patient is also had the dark aspirate from the stomach for which she has NG tube. Surgery was consulted for the same. Also this morning right foot wound was debrided by Dr. Ibarra from vascular. Wound base was relatively clean. No undermining or tunneling. February 02: Delirious. NG tube to suction. Has been in restraints because point NG TUBE several times. Mumbling to himself. Dressing over the right ankle. Not in distress. Ileus. Chest x-ray showing right lower lobe/atelectasis. February 03: Hospital computer system was down. Patient remains delirious. Nasal cannula. Lethargic. Family the bedside. Antibiotics. A. fib uncontrolled. EEG evidence of metabolic encephalopathy. No clear-cut epileptiform activity. Started on Keppra by neurology. February 04: ICU: Girlfriend at the bedside. In atrial fibrillation uncontrolled. On IV Cardizem and IV amiodarone. NG tube to suction. Patient lethargic. Multiple breathing. 2 L. Oxygen. February 05: ICU. Atrial fibrillation better controlled this morning. Cardizem discontinued. Patient respiratory status worsened this morning and patient is intubated. FiO2 45 and a PEEP of 5. Atrial fibrillation, controlled. Drips include amiodarone, propofol, levo fed. Discussed with girlfriend the bedside. Understands prognosis guarded. February 06: ICU: Ventilated. FiO2 45 and a PEEP of 5. NG tube is clamped. On IV propofol. Sedated. Heart rate better controlled. Was started on Coumadin yesterday. Worsening renal function. Nephrology consulted. 02/07/2022 Patient is currently in the MICU and on mechanical ventilator. Tidal volume of 400, FiO2 40% and PEEP of 5. Patient is off pressor support today. Currently on propofol and is also on tube feeding. Chest x-ray showed stable exam with stable support lines and tubes. Correlate for congestive heart failure. Patient was given a dose of IV Lasix. Laboratory data showed WBC 18.4 hemoglobin 11.6 and platelets 458 Sodium 141 potassium 3.7 chloride 103 bicarb is 18 BUN 49 and creatinine 3.73 and calcium 7.3. INR is 2.2. Patient is being followed by nephrology cardiology and critical care team. 02/08/2022 Patient is currently on mechanical ventilator and sedated with propofol. Assist control with FiO2 40% and tidal volume of 400 and PEEP of 5. Patient is being continued on antibiotics above cefepime and Flagyl. Sputum gram stain gram-negative bacilli and Lynda. Chest x-ray today showed findings suggestive of slightly worsening CHF exacerbation as there is cardiomegaly with mild to moderate central venous congestion and small to moderate-sized bilateral pleural effusion. Laboratory test showed WBC increased to 23.6 hemoglobin 9.1 and platelets 162 I NR 3.0 Sodium 139 potassium 4.3 chloride 113 bicarb is 40 BUN 54 and creatinine worsening to 4.36 Kaylynn 12: I resumed the care of patient today ICU: Med: 40/5. Received vitamin K 5 mg IV to bring the INR down for dialysis catheter. Drips include bicarbonate, propofol, epinephrine. Patient is a stage II coccyx is ulcer. Plan is to change the NG tube to on G-tube today. For possible colitis/fistula on antibiotics. at the bedside. February 10: ICU. Ventilator 50/5. Hemodialysis catheter placed last night. Hemodialyzed yesterday and getting dialyzed today. Remains in atrial fib rillation heart rate uncontrolled. Getting up sedation holiday. Drips include bicarbonate and norepinephrine. Propofol currently held. 2 feeding at 46 mL an hour. Does open eyes. February 11: ICU. Ventilator. 50/5. Third day for hemodialysis. 1.5 L to be removed today. Back on propofol. Drips include bicarbonate, norepinephrine, propofol. On G-tube feeding. Patient back in sinus rhythm. Bag and tracheostomy to planning for next week. 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 IV antifungal started by ID. February 12: ICU: Ventilator: 40/5. Telemetry shows sinus rhythm. Drips include propofol and norepinephrine. On G-tube feeding. Discussed with the at the bedside. Understands prognosis guarded. IV antibiotics and antifungals. February 13: ICU: Ventilator: 40/5. PEG tube placed yesterday by Dr. Cornejo. Drips include bicarbonate, propofol, norepinephrine. Getting hemodialysis done today. February 14: ICU: Medicated. 2 feeding at 65 mL an hour. This included propofol and norepinephrine. Hemodialysis done today. Sinus rhythm. February 15: ICU: Ventilator: 40/5. 2 feeding at 65 mL an hour. Drips include propofol and norepinephrine. No hemodialysis today. at the bedside. Discussed. 02/16/2022 Patient seen and evaluated and follow-up continues to be in the ICU on mechanical ventilation with sedation with multiple medical consultations following. Patient is currently receiving hemodialysis and continues with a temporary dialysis catheter. Patient is still full code and overall prognosis remains extremely poor and guarded. Patient's FiO2 is 40% with a PEEP of 5. Patient also continues on antifungal along with cefepime and metronidazole with infectious disease following. Patient is sedated on propofol continues on Levophed as well. WBC is 12.9 with hemoglobin of 8.7, sodium is 134 with a potassium of 4.5 current creatinine is 4.69 with a BUN of 66. Patient is maintained on tube feedings and has received the PEG tubing is scheduled for tracheostomy tentatively today if OR available. Again overall prognosis remains extremely guarded. 02/17/2022 Patient continues to be in the ICU on mechanical vent and FiO2 remains 40% with a PEEP of 5. Patient continues on norepinephrine with multiple medical consultations following. Patient continues on propofol for sedation and also was maintained on hemodialysis almost daily. Patient continues on cefepime along with an antifungal and Flagyl with anxiety following sputum culture showing 16 oh troph ammonias maltophilia with Lynda most recent blood cultures have been negative. Patient is afebrile although WBC is elevated at 14.5 and hemoglobin is 8.9, BUN is 61 with a creatinine of 4.55, sodium is 135 and sodium bicarb tablets have been discontinued. Magnesium was 1.9. Plan is tentatively scheduled for tracheostomy with general surgery today post hemodialysis. Overall prognosis is extremely guarded. Chest x-ray shows continued bilateral pleural effusions with no significant change from previous day. Patient is maintained on tube feedings via PEG tube although on hold for surgery today 02/18/2022 Agent is seen and evaluated continues to be in the ICU with multiple medical consultations following. Patient is status post tracheostomy placement with Dr. Villegas yesterday evening and tolerating well with no leaks noted. Patient continues on FiO2 of 40% with a PEEP of 5. Patient undergoing sedation holiday and propofol was recently turned off. Patient is awake and opening eyes spontaneously although not following commands on exam. Patient is looking around the room and mouthing words with no comprehension. Patient with extensive wounds of the sacro-coccyx region that are currently unstageable and general surgery is following and may possibly require debridement of these areas. Patient is status post debridement of the right foot previously. Patient is maintained on antibiotics along with antifungal's and infectious disease is following. Patient is afebrile and WBC is 10.6, hemoglobin is 8.4, patient is also with a BUN of 50 and creatinine is 3.78, magnesium is 1.8. Patient is being closely monitored by nephrology with a temporary site of the right femoral receiving daily dialysis. Patient continues on low-dose Levophed and working on weaning as tolerated. PEG tube feedings are at goal and tolerating. Overall prognosis remains extremely guarded. Review of systems: unAble to obtain as patient is currently on propofol and undergoing sedation holidays Physical examination: GENERAL: laying in bed, continues on the ventilator via tracheostomy EYES: Pupils equal. Conjunctiva normal. HEENT: External appearance of nose and ears normal, oral cavity dry, peg tube with tube feeding, newly placed tracheostomy 02/17/2022 with no air leak present NECK: JVD not raised; masses not palpable. HEART: Heart sounds regular; mild edema. LUNGS: Respiratory rate increased; decreased breath sound, ABDOMEN: Soft, distended, nontender, liver spleen not palpable, no masses palpable. PEG tube. PSYCH: Unable to assess, patient sedated DERMATOLOGICAL: Wound on right ankle lateral malleolus. Under dressing. Stage II coccygeal ulcer noted. See nursing notes Assessment: -Coumadin toxicity. present on admission - right lung contusion.-Secondary to fall. hemoptysis on presentation -Post tracheostomy placement on 02/17/2022 -Stage II coccyx pressure ulcer, present on admission -Pneumonia, secondary to Stenostrophonas maltophilia, Lynda albicans: Slow to respond -Sepsis with positive blood cultures MSSA, likely source right ankle. From January 31. -Acute hypoxic respiratory failure, multifactorial: ventilator support, intubated on 02/05 -Acute COPD exacerbation, with chronic bronchitis component in a current smoker -Chronic nicotine dependence, cigarette smoker -Paroxysmal atrial flutter,currently in sinus rhythm -Possible CKD with possible acute component. -Acute kidney injury, ATN, likely cardiorenal syndrome.: Not improving, now on dialysis since 02/09 -Acute right-sided 8-10 ribs fracture secondary to fall -Diabetes mellitus type 2, -Diabetic peripheral neuropathy -Chronic low back pain: -Anxiety depression not otherwise specified -Hyperlipidemia -Right ankle lateral, diabetic wound, stage II acute. Wound culture positive for Streptococcus agalactiae and Staphylococcus aureus. status post debridement with vascular surger on 02/01 -Acute L1 30% wedge fracture secondary to fall -Acute delirium multifactorial. -Acute ileus, requiring disempaction x2 -Possible colitis /fistula on computed tomography scan. -Full code Plan: Recommend continue with IV antibiotics with infectious disease following patient is currently maintained on cefepime, Flagyl, antifungal with stenotrophomonas maltophilia and Lynda along with staph aureus in the sputum and wound cultures Patient is receiving dialysis with nephrology following closely continues with a temporary catheter of the right groin Patient has received a PEG tube and maintained on tube feedings which has been resumed and at goal Patient is post tracheostomy placement yesterday evening with general surgery Patient continues to be in the ICU on mechanical vent with an FiO2 of 40% and PEEP is 5 Recommend repeat labs and will continue to monitor closely. Overall prognosis is extremely poor and guarded and CODE STATUS needs to be addressed The impression and plan of care has been dictated by Xochitl Leon, Nurse Practitioner as directed. Dr. Sanya MD I have performed a history and examination and MDM of this patient, discussed the same with the dictator, and agree with the dictator's assessment and plan as written ,documented as a scribe. Based on total visit time, I have performed more than 50% of the visit. Objective - Vital Signs Vital signs: Vital Signs Temp 97.5 F L 02/18/22 08:00 Pulse 89 02/18/22 08:30 Resp 24 02/18/22 08:30 BP 138/76 02/18/22 07:00 Pulse Ox 94 L 02/18/22 08:30 FiO2 40 02/18/22 07:18 Intake & Output 02/17/22 02/18/22 02/18/22 18:59 06:59 18:59 Intake Total 878.730 3994.363 150 Output Total 2120 150 25 Balance -9705.431 0481.363 125 Weight 153.4 kg Intake: IV 263 276 20 0.9% Sodium Chloride @ 130 120 20 10mls/hr Cefepime 1 gm In Sodium 50 Chloride 0.9% 50 ml @ 12. 5 mls/hr IVPB Q12HR [facility] Rx#:[id number] Pressure bags 33 6 metroNIDAZOLE-NS PMX 500 100 mg In Saline 1 100ml.bag @ 100 mls/hr IVPB Q8HR [facility] Rx#:[id number] Intake, IV Titration 182.569 326.363 Amount Norepinephrine 32 mg In 182.569 26.363 Sodium Chloride 0.9% 218 ml @ 0.05 MCG/KG/MIN 3. 246 mls/hr IV .Q24H [facility] Rx#:[id number] propofoL 1,000 mg In 300 Empty Bag 1 bag @ 5 MCG/ KG/MIN 4.08 mls/hr IV . Q24H [facility] Rx#:[id number] Tube Feeding 715 130 Hemodialysis 300 Other 90 Output: Urine 115 150 25 Hemodialysis 2000 Estimated Blood Loss 5 Other: Voiding Method Indwelling Catheter Indwelling Catheter ABP, PAP, CO, CI - Last Documented Arterial Blood Pressure 104/45 - Labs CBC & Chem 7: 02/18/22 06:10 02/18/22 06:10 Labs: Abnormal Lab Results - Last 24 Hours (Table) 02/18/22 02/18/22 02/18/22 Range/Units 05:52 06:10 06:10 RBC 2.86 L (4.30-5.90) m/uL Hgb 8.4 L (13.0-17.5) gm/dL Hct 26.9 L (39.0-53.0) % RDW 19.4 H (11.5-15.5) % Plt Count 88 L (150-450) k/uL ABG pO2 75 L (83-108) mmHg ABG HCO3 26 H (21-25) mmol/L ABG Total CO2 28 H (19-24) mmol/L ABG Hematocrit 26 L (34.0-46.0) % Hemoglobin 8.4 L (13.0-17.5) gm/dL Sodium 136 L (137-145) mmol/L BUN 50 H (9-20) mg/dL Creatinine 3.78 H (0.66-1.25) mg/dL Glucose 115 H (74-99) mg/dL POC Glucose (mg/dL) (70-110) mg/dL Calcium 7.2 L (8.4-10.2) mg/dL AST 15 L (17-59) U/L Total Protein 4.3 L (6.3-8.2) g/dL Albumin 1.9 L (3.5-5.0) g/dL 02/18/22 Range/Units 06:10 RBC (4.30-5.90) m/uL Hgb (13.0-17.5) gm/dL Hct (39.0-53.0) % RDW (11.5-15.5) % Plt Count (150-450) k/uL ABG pO2 (83-108) mmHg ABG HCO3 (21-25) mmol/L ABG Total CO2 (19-24) mmol/L ABG Hematocrit (34.0-46.0) % Hemoglobin (13.0-17.5) gm/dL Sodium (137-145) mmol/L BUN (9-20) mg/dL Creatinine (0.66-1.25) mg/dL Glucose (74-99) mg/dL POC Glucose (mg/dL) 128 H (70-110) mg/dL Calcium (8.4-10.2) mg/dL AST (17-59) U/L Total Protein (6.3-8.2) g/dL Albumin (3.5-5.0) g/dL Microbiology - Last 24 Hours (Table) 02/15/22 06:05 Blood Culture - Preliminary Blood No Growth after 72 hours 02/14/22 04:33 Blood Culture - Preliminary Blood No Growth after 96 hours 01/31/22 06:45 Anaerobic Culture - Final Ankle - Right Lynda albicans
--- NOTE | 2022-02-18 15:56 | P.PN ---
Subjective Patient is seen in follow-up for acute kidney injury. Started on hemodialysis 02/09/2022. Intubated. On Levophed. Receiving tube feeds.. Urine output about 15-25 mL an hour. Seen on hemodialysis today. S/p tracheostomy yesterday. Awake but with nonpurposeful movements Objective - Vital Signs Vital signs: Vital Signs Temp 98.9 F 02/18/22 12:00 Pulse 112 H 02/18/22 15:32 Resp 24 02/18/22 14:30 BP 138/76 02/18/22 13:45 Pulse Ox 96 02/18/22 14:30 FiO2 60 02/18/22 15:40 Intake & Output 02/17/22 02/18/22 02/18/22 18:59 06:59 18:59 Intake Total 742.934 6379.363 1017.969 Output Total 2120 150 110 Balance -9848.890 1704.363 907.969 Weight 153.4 kg 153.4 kg Intake: IV 263 276 345 0.9% Sodium Chloride @ 130 120 80 10mls/hr Anidulafungin 100 mg In 100 Sodium Chloride 0.9% 100 ml @ 84 mls/hr IVPB DAILY [facility] Rx#:[id number] Cefepime 1 gm In Sodium 50 50 Chloride 0.9% 50 ml @ 12. 5 mls/hr IVPB Q12HR [facility] Rx#:[id number] Pressure bags 33 6 15 levETIRAcetam IV 500 mg 100 In Sodium Chloride 0.9% 100 ml @ 400 mls/hr IVPB DAILY [facility] Rx#:[id number] metroNIDAZOLE-NS PMX 500 100 mg In Saline 1 100ml.bag @ 100 mls/hr IVPB Q8HR [facility] Rx#:[id number] Intake, IV Titration 182.569 326.363 152.969 Amount Norepinephrine 32 mg In 182.569 26.363 76.809 Sodium Chloride 0.9% 218 ml @ 0.05 MCG/KG/MIN 3. 246 mls/hr IV .Q24H [facility] Rx#:[id number] propofoL 1,000 mg In 300 76.16 Empty Bag 1 bag @ 5 MCG/ KG/MIN 4.08 mls/hr IV . Q24H [facility] Rx#:[id number] Tube Feeding 715 520 Hemodialysis 300 Other 90 Output: Urine 115 150 110 Hemodialysis 1999 Estimated Blood Loss 5 Other: Voiding Method Indwelling Catheter Indwelling Catheter Indwelling Catheter ABP, PAP, CO, CI - Last Documented Arterial Blood Pressure 131/55 - Exam Patient is sedated and on the vent. Bilateral breath sounds are heard Examination of the heart S1 and S2 Abdomen is obese distended Examination lower extremity shows edema 2-3+ bilaterally upper and lower extremities with chronic skin changes in the legs. Significant scrotal edema noted CABLE WIRER exam shows pt is awake but not following commands. - Labs CBC & Chem 7: 02/18/22 06:10 02/18/22 06:10 Labs: Abnormal Lab Results - Last 24 Hours (Table) 02/18/22 02/18/22 02/18/22 Range/Units 05:52 06:10 06:10 RBC 2.86 L (4.30-5.90) m/uL Hgb 8.4 L (13.0-17.5) gm/dL Hct 26.9 L (39.0-53.0) % RDW 19.4 H (11.5-15.5) % Plt Count 88 L (150-450) k/uL ABG pO2 75 L (83-108) mmHg ABG HCO3 26 H (21-25) mmol/L ABG Total CO2 28 H (19-24) mmol/L ABG Hematocrit 26 L (34.0-46.0) % Hemoglobin 8.4 L (13.0-17.5) gm/dL Sodium 136 L (137-145) mmol/L BUN 50 H (9-20) mg/dL Creatinine 3.78 H (0.66-1.25) mg/dL Glucose 115 H (74-99) mg/dL POC Glucose (mg/dL) (70-110) mg/dL Calcium 7.2 L (8.4-10.2) mg/dL AST 15 L (17-59) U/L Total Protein 4.3 L (6.3-8.2) g/dL Albumin 1.9 L (3.5-5.0) g/dL 02/18/22 02/18/22 Range/Units 06:10 11:19 RBC (4.30-5.90) m/uL Hgb (13.0-17.5) gm/dL Hct (39.0-53.0) % RDW (11.5-15.5) % Plt Count (150-450) k/uL ABG pO2 (83-108) mmHg ABG HCO3 (21-25) mmol/L ABG Total CO2 (19-24) mmol/L ABG Hematocrit (34.0-46.0) % Hemoglobin (13.0-17.5) gm/dL Sodium (137-145) mmol/L BUN (9-20) mg/dL Creatinine (0.66-1.25) mg/dL Glucose (74-99) mg/dL POC Glucose (mg/dL) 128 H 127 H (70-110) mg/dL Calcium (8.4-10.2) mg/dL AST (17-59) U/L Total Protein (6.3-8.2) g/dL Albumin (3.5-5.0) g/dL Microbiology - Last 24 Hours (Table) 02/15/22 06:05 Blood Culture - Preliminary Blood No Growth after 72 hours 02/14/22 04:33 Blood Culture - Preliminary Blood No Growth after 96 hours Assessment and Plan Assessment: 1. Acute kidney injury ATN secondary to sepsis and hypotension. 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 Started on hemodialysis on 02/09/2022. Urine output at 10-15 mL/minute. Serum creatinine in April 2019 was 0.8. No evidence of obstruction on CAT scan. 2. Acute hypoxic, hypercapnic respiratory failure currently on the vent 3. MSSA bacteremia initially on vancomycin and currently on cefazolin. Last blood cultures drawn on 02/04/2022 are negative, source is right foot ulcer 4. Hyperphosphatemia associated with acute kidney injury currently maintained on PhosLo 5. Volume overload, slowly improving with UF with hemodialysis Plan: Continue with daily treatments of hemodialysis. Add aranesp
[2022-02-18 18:08] LABS: Glucose,Whole Blood 145 mg/dL (70-110)
[2022-02-18] MEDS: DARBEPOETIN ALFA 60 MCG/0.3 ML SYRINGE SQ SCH (18:34)
[2022-02-18] MEDS: INSULIN DETEMIR (LEVEMIR) 100 UNIT/ML SYR SQ SCH (20:13)
[2022-02-19 00:21] LABS: Glucose,Whole Blood 137 mg/dL (70-110)
[2022-02-19] MEDS: INSULIN ASPART (NovoLOG) 100 UNIT/ML VIAL SQ SCH ×4 (01:49→18:14)
[2022-02-19] MEDS: MORPHINE ORAL SOLN 10 MG/5 ML CUP PO SCH ×3 (01:52→23:21)
[2022-02-19] MEDS: metroNIDAZOLE-NS PMX 500 MG in SALINE 1 100ML.BAG IVPB SCH ×4 (01:53→23:21)
[2022-02-19 05:49] LABS: Anisocytosis Moderate; Basophils # (A) 0.1 k/uL (0-0.2); Basophils % (A) 1 %; Eosinophils # (A) 0.3 k/uL (0-0.7); Eosinophils % (A) 2 %; HCT 26.9 % (39.0-53.0); Hypochromasia Marked; Lymphocytes # (A) 0.7 k/uL (1.0-4.8); Lymphocytes % (A) 7 %; MCH 29.2 pg (25.0-35.0); MCHC 29.8 g/dL (31.0-37.0); Macrocytosis Moderate; Mean Platelet Volume 12.2; Monocytes # (A) 0.5 k/uL (0-1.0); Monocytes % (A) 5 %; Neutrophils # (A) 8.9 k/uL (1.3-7.7); Neutrophils % (A) 84 %; Prothrombin Time 11.2 sec (9.0-12.0); RBC 2.74 m/uL (4.30-5.90); RDW 20.1 % (11.5-15.5); WBC 10.6 k/uL (3.8-10.6)
[2022-02-19 05:59] LABS: ALT <6 U/L (4-49); AST 14 U/L (17-59); African American GFR (CKD) 20 (>60 ml/min/1.73 sqM); Alkaline Phosphatase 104 U/L (38-126); Anion Gap 13 mmol/L; Blood Urea Nitrogen 47 mg/dL (9-20); Calcium 7.4 mg/dL (8.4-10.2); Carbon Dioxide 23 mmol/L (22-30); Chloride 102 mmol/L (98-107); Glucose 159 mg/dL (74-99); Magnesium 1.9 mg/dL (1.6-2.3); Non-African American GFR(CKD) 18 (>60 ml/min/1.73 sqM); Potassium 3.8 mmol/L (3.5-5.1); Sodium 138 mmol/L (137-145); Total Bilirubin 0.6 mg/dL (0.2-1.3); Total Protein 4.5 g/dL (6.3-8.2)
[2022-02-19 06:00] LABS: Platelet Count 88 k/uL (150-450)
[2022-02-19 06:05] LABS: ABG Base Excess -0.3 mmol/L; ABG HCO3 26 mmol/L (21-25); ABG Oxygen Saturation 93.9 % (94-97); ABG PCO2 51 mmHg (35-45); ABG PH 7.31 (7.35-7.45); ABG PO2 76 mmHg (83-108); ABG TCO2 28 mmol/L (19-24); Allen Test Performed? Yes
[2022-02-19 06:07] LABS: ABG Hematocrit 24 % (34.0-46.0)
[2022-02-19 06:35] LABS: Glucose,Whole Blood 163 mg/dL (70-110)
[2022-02-19] MEDS: CALCIUM ACETATE 667 MG TAB PO SCH ×2 (06:56→16:43)
[2022-02-19] MEDS: BUDESONIDE 1 MG/2 ML NEBU INHALATION SCH ×2 (07:39→20:07)
[2022-02-19] MEDS: IPRATROPIUM-ALBUTEROL 3 ML NEB INHALATION SCH ×4 (07:39→20:07)
[2022-02-19] MEDS: NOREPINEPHRINE 32 MG in SODIUM CHLORIDE 0.9% 218 ML IV SCH (07:59)
--- NOTE | 2022-02-19 08:27 | XR ---
EXAMINATION TYPE: XR chest 1V portable DATE OF EXAM: 02/19/2022 COMPARISON: Chest x-ray 02/18/2022 HISTORY: Tracheostomy tube, abnormal chest x-ray TECHNIQUE: Single frontal view of the chest is obtained. FINDINGS: Patient is rotated. Tracheostomy tube is overlying the tracheal air column as on prior. Ri ght subclavian central venous catheter is stable overlying appropriate position. Abnormal attenuation at the lung bases obscures the hemidiaphragms and heart. No evident pneumothorax. There is worsening of the aeration in the right lung. There are overlying artifacts. Prominence of the pulmonary artery may be indicative of pulmonary artery hypertension. IMPRESSION: There may be progression of pleural effusions, airspace disease or atelectasis especiall y in the right lung.
[2022-02-19] MEDS: PANTOPRAZOLE 40 MG/10 ML VIAL IVP SCH ×2 (08:47→20:35)
[2022-02-19] MEDS: LACTULOSE 20 GM/30 ML CUP PO SCH ×2 (08:47→20:33)
[2022-02-19] MEDS: CHLORHEXIDINE GLUCONATE 15 ML CUP MUCOUS MEM SCH ×2 (08:47→20:33)
[2022-02-19] MEDS: bisacodyL 10 MG SUPP RECTAL SCH (08:47)
[2022-02-19] MEDS: METOPROLOL TARTRATE 25 MG TAB PO SCH ×2 (08:47→20:33)
[2022-02-19] MEDS: TORSEMIDE 20 MG TAB PO SCH (08:48)
[2022-02-19] MEDS: PREGABALIN 100 MG CAP PO SCH ×2 (08:48→20:36)
[2022-02-19] MEDS: AMIODARONE 200 MG TAB PO SCH ×2 (08:48→20:33)
--- NOTE | 2022-02-19 09:01 | P.PN ---
Subjective Progress Note Date: 02/19/22 This is a extremely debilitated 61-year-old male patient who was admitted to the hospital on 01/31/2022 because of a fall and limited hemoptysis. The patient is known to have a combination of issues including diabetes mellitus and diabetic peripheral neuropathy and the patient has had previous episodes of falls and he has issues with chronic atrial flutter maintained on long-term anticoagulation with warfarin. He is morbidly obese. He has hypertension and hyperlipidemia as comorbid conditions along with chronic kidney disease. He is morbidly obese. He has history of COPD and is a chronic smoker. He comes in to the hospital after he had a fall at home. He was the bathroom and he slept and he landed on his left chest. Here in the hospital, the patient was found to be Coumadin toxic and his INR was above 10. He did have some limited hemoptysis and coffee-ground emesis without any melanotic stools. No abdominal pain. He was noted to have a large ulcer over the right ankle/malleolus area which is a chronic wound. Immediately the patient was given vitamin K. This computed tomography scan of the chest shows some right lateral eighth through 10th rib fractures with trace amount of right-sided pleural effusion and right basilar atelectasis related to underlying pulmonary contusion. No evidence of any pneumothorax. Some limited patchy airspace disease in the left upper lobe probably inflammatory in the same time the patient had dilated pulmonary arteries indicating possibility of pulmonary hypertension and a fluid and gas- filled distended stomach. I noted the patient has not had a CAT scan of the brain and a CAT scan was done that showed no acute intracranial process. There was a remote left occipital lobe injury along with some nonspecific white matter changes secondary to chronic microangiopathy. This computed tomography scan of the lumbar spine showed acute anterior wedge compression deformity of L1 vertebral body with a 30% loss in height along with multilevel degenerative disc changes and a 7 mm In the right pelvis. Patient was already seen by general surgery and orthopedic surgery. Lumbar spine x-ray that was done on 2021 showed no acute fracture. The patient was also seen by vascular surgery for a right lateral foot wound and this is a stage II wound 8.5 x 4 cm in size. Debridement was done by vascular surgery. On 02/16/2022, I'm seeing the patient for a follow-up. I saw this patient initially at time of admission and the patient had a prolonged hospitalization related to his comorbid conditions and the patient was ultimately intubated and placed on a mechanical ventilator and the plan is for today to proceed with a tracheostomy tube insertion as the patient had prolonged respiratory failure. This morning, the patient is sedated and the patient is receiving propofol at a rate of 20 mcg/kg per minute and is quite successful mechanical ventilator. He is on assist-control mode of mechanical ventilation at the rate of 24 with a tidal volume of 500 and FiO2 of 40% and a PEEP of 5. Blood gases from today shows a pH of 7.41 with a pCO2 of 40 and pO2 of 75 and the most recent chest x- ray showed a large right-sided pleural effusion in addition to left-sided pleural effusion. The right lung was also consolidated and there was some volume loss and underlying pneumonia cannot be completely excluded. The most recent blood cultures have been negative. Sputum culture was positive for stenotrophomonas and the patient was covered with appropriate antibiotics and currently remains on IV cefepime that was originally started on 02/06/2022. I also noted that the patient is on a combination of Flagyl and he is taken also Eraxis per IDs recommendation. Note that in addition to pneumonia, the patient has right foot unstageable pressure ulcer with surrounding necrosis and cellulitis and there was no underlying osteomyelitis based on the x-ray. Patient is post debridement and a the wound culture showed a combination of MSSA and strep agalactiae. There was also Lynda that was identified and the patient's sputum and due to concerns of ongoing infection ID elected to put him on Eraxis and the patient's white cell count is gradually improved from as high as 26.5 down to 12.9 today. Hemodynamically, he is on pressors and the patient is requiring norepinephrine at a dose of 0.07 mcg/kg per minute. IV fluids are at KVO and the patient has significant amount of third spacing and edema in all 4 extremities more so in the upper extremities. He is receiving hemodialysis. Last hemodialysis session was on 02/14/2022 and the patient had a total of 2 L of ultrafiltration. Prior to that, and another liter was taken off on 02/12/2022. On today's blood work, the patient's white cell count of 12.9 with hemoglobin 8.7 and a platelet count of 106. Patient has sodium level of 134, BUN is 66 and creatinine is 4.6 and the rest of the electrodes are stable and the patient's serum bicarbs at 23. Albumin level is down to 1.9 with a total protein of 4.4. In terms of enteral feeding, the patient is receiving vital h igh protein and the currently the 2 feedings are on hold as the patient is going to undergo a tracheostomy tube insertion. He does have a arterial line catheter in his right upper extremity and the patient also has a right labia and triple- lumen catheter in place. Urine output is marginal in the order of 10-20 mL an hour. In the neck fluid balance has been +1.9 L over the past 24 hours. He is currently on the sinus rhythm. Anticoagulation is on hold as the patient is going to undergo a tracheostomy tube insertion. INR today is at 1.1. 02/17/2022, the patient is being seen for a follow-up. The patient is still intubated on a mechanical ventilator. He did not have his tracheostomy tube insertion yesterday due to scheduling problems. This morning, the patient remains sedated and the patient is on propofol running at 15 mcg/kg per minute. He is successful mechanical ventilator and he is arranging an assist-control mode at the rate of 24 with a tidal volume of 500 and FiO2 of 40% with a PEEP of 5. The blood gases from today showing a pH of 7.39 with a pCO2 of 41 and pO2 of 77. The FiO2 was at 40%. The chest x-ray from today is showing shows adequate positioning of the orotracheal tube. The patient also has large bilateral pleural effusions as mentioned yesterday and there is no major interval change compared to yesterday. Noted the patient underwent hemodialysis yesterday and he had an ultrafiltration of 3 L of fluid. His sputum was also positive for stenotrophomonas and the patient is covered with IV cefepime the pathology started on 02/07/2020 and he continues to be on the same antibiotics for now. He remains also on IV Eraxis and Flagyl per IDs recommendations. No significant orotracheal secretions. His symptoms the mechanical ventilator. Pulse ox dre und 94%. Awaiting a tracheostomy tube insertion today. He does have a unstageable wound in his coccyx area and the patient has a wound in his right ankle that was incised and drained and the cultures showed MSSA and strep agalactiae. ID is on the case for antibiotic management. In terms of hemod ynamics, the patient remains on IV fluids at KVO. He has there are no dose of norepinephrine running at 0.03 mcg/kg per minute. Urine output is minimal at this point in time and order of 15-20 mL an hour. In terms of his blood work from today, the patient has a white cell count of 14.5 with hemoglobin of 8.9 and a platelet count of 106 from yesterday. His sodium level is at 135, BUN is at 61 with a creatinine of 4.55. Potassium level is at 4.8 with a serum bicarb of 22. His most recent pro-calcitonin level from 02/15/2022 was 2.05 which remains elevated. He is receiving enteral feeding for nutritional support through his PEG tube. He was receiving vital high protein at the rate of 58 is an hour. The tube feeds were placed on hold in anticipation for a tracheostomy tube insertion. Overall fluid balance over the past 24 hours in the order of - 1.7 L the patient underwent hemodialysis with ultrafiltration. His cardiac rhythm remains sinus. His coagulation profile shows an INR of 1.0 with a PT of 11.2. 02/18/2022, the patient is being seen for a follow-up. This morning, the patient is on propofol at 25 mcg/kg per minute and we are the process of getting this patient a sedation holiday. Note that the patient was given a tracheostomy tube yesterday and the patient has a extra long Shiley tracheostomy tube #8. The patient remains on a mechanical ventilator. No significant leaks around the tracheostomy tube. The patient is an assist-control mode rate of 24 with a tid al volume of 500 and FiO2 of 40% with a PEEP of 5. His chest x-ray from yesterday was showing bilateral pleural effusions and a repeat chest x-ray will be obtained from today. Meanwhile, his blood gases from today is showing a pH of 7.41 with a pCO2 of 41 and pO2 of 75. He remains on a low dose n orepinephrine infusion at 0.07 mcg/kg per minute. IV fluids are currently at KVO. He underwent hemodialysis yesterday with a total ultrafiltration of 2 L. He remains on the same antibiotic coverage included IV cefepime, Flagyl and Eraxis. He does have an unstageable wound on his coccyx. He also has a ankle with that was incised and drained earlier. In terms of his blood work, the white cell count is at 10.6 and hemoglobin of 8.4 and platelet count of 88. His BUN is at 50 with a creatinine of 3.28. Sodium is 136 with a potassium level of 4.1 and a chloride of 99 with a bicarb of 24. INR is at 1.1. Calcium level is at 7.2 and albumin level is at 1.9. The patient is receiving vital high protein at the rate of 65 mL an hour which is goal and his serum albumin is at 1.9. The patient has no major orotracheal secretions. His cardiac rhythm remains sinus. His ankle wound is dressed. As for the coccyx, the patient has an unstageable wound and OptiForm has been applied. We'll discuss this case with general surgeon in regard to the possibility of debridement. 2021, the patient is off sedation. The patient was taken off sedation yesterday morning and he gradually improved in terms of his level of alertness. He is currently at the point where he is opening his eyes and is looking around. He is not following commands yet. No agitation. He remains successful mecha nical ventilator. He did encounter some desaturation yesterday and based on that, the patient the PEEP was increased up to 8 and the patient is currently on an FiO2 of 60%. The mechanical ventilated is also on assist control mode at the rate of 24 with a tidal volume of 500. Blood gases from today showed a pH of 7.31 with a pCO2 of 51 and pO2 of 76. The chest x-rays obviously abnormal and the patient has large bilateral pleural effusions. Tracheostomy tube is in a good location. This progression of pleural effusion and there may be also somewhat on loss and atelectasis on the right side. Underlying pneumonia cannot be completely excluded. The patient had stenotrophomonas and Lynda albicans in the sputum on 02/05/2022. Since then, the patient was covered with antibiotics and the patient remains on IV cefepime and he has been taking the cefepime since 02/06/2022. He is also on Flagyl and Eraxis per IDs recommendation regarding his issues with chronic wounds. He is afebrile. He is hemodynamically requiring low-dose pressors and the patient is on norepinephrine infusion at 0.05 mcg/kg per minute. The white cell count is at 10.6 and hemoglobin of 8 and a platelet count of 88. Electrolytes are normal sodium is at 138, bicarbonate 23, BUN is a 47 with a creatinine of 3.4. The patient underwent hemodialysis yesterday with a total of 2.5 L of fluid being removed. Liver function tests are normal, his pro-calcitonin level from 02/15/2022 was at 2.05 and albumin level is at 2.0. The patient is receiving enteral feeding for nutritional support and he remains on vital high protein at the rate of 55 mL an hour. He remains on Demadex and the urine output is essentially none for now. He remains on Levemir insulin 14 units at bedtime and a NovoLog for sliding scale coverage. Objective - Vital Signs Vital signs: Vital Signs Temp 98.7 F 02/19/22 08:00 Pulse 110 H 02/19/22 08:30 Resp 20 02/19/22 08:30 BP 129/61 02/19/22 08:30 Pulse Ox 96 02/19/22 08:30 FiO2 60 02/19/22 08:00 Intake & Output 02/18/22 02/19/22 02/19/22 18:59 06:59 18:59 Intake Total 4861.772 3160 186 Output Total 2670 155 5 Balance -9864.264 7077 181 Weight 153.4 kg 158 kg Intake: IV 397 306 26 0.9% Sodium Chloride @ 120 120 20 10mls/hr Anidulafungin 100 mg In 100 Sodium Chloride 0.9% 100 ml @ 84 mls/hr IVPB DAILY [facility] Rx#:[id number] Cefepime 1 gm In Sodium 50 50 Chloride 0.9% 50 ml @ 12. 5 mls/hr IVPB Q12HR [facility] Rx#:[id number] Pressure bags 27 36 6 levETIRAcetam IV 500 mg 100 In Sodium Chloride 0.9% 100 ml @ 400 mls/hr IVPB DAILY [facility] Rx#:[id number] metroNIDAZOLE-NS PMX 500 100 mg In Saline 1 100ml.bag @ 100 mls/hr IVPB Q8HR [facility] Rx#:[id number] Intake, IV Titration 152.969 Amount Norepinephrine 32 mg In 76.809 Sodium Chloride 0.9% 218 ml @ 0.05 MCG/KG/MIN 3. 246 mls/hr IV .Q24H [facility] Rx#:[id number] propofoL 1,000 mg In 76.16 Empty Bag 1 bag @ 5 MCG/ KG/MIN 4.08 mls/hr IV . Q24H [facility] Rx#:[id number] Tube Feeding 780 780 130 Other 90 30 Output: Urine 170 155 5 Hemodialysis 2500 Other: Voiding Method Indwelling Catheter Indwelling Catheter ABP, PAP, CO, CI - Last Documented Arterial Blood Pressure 112/44 - Exam GENERAL: BMI 39.6, intubated on a mechanical ventilator. The patient is off propofol. Tracheostomy tube is in place without any evidence of air leak around the tracheostomy tube stoma. The patient is calm and comfortable and second is a mechanical ventilator. Head exam was generally normal. There was no scleral icterus or corneal arcus. Mucous membranes were moist. EYES: Pupils equal. Conjunctiva normal. HEENT: External appearance of nose and ears normal, oral cavity grossly normal. NECK: JVD not raised; masses not palpable. HEART: Heart sounds irregular; mild edema. LUNGS: decreased breath sound, prolonged expiration, coarse crackles. The breath sounds are diminished in lung bases bilaterally. ABDOMEN: Soft, distended, nontender, liver spleen not palpable, no masses palpable. The patient has extensive scrotal edema. DERMATOLOGICAL: Large wound around the lateral malleolus right foot Gangrene Changes. The patient has evidence of deep tissue injury to his coccyx/buttocks area. MUSCULOSKELETAL:No Clubbing/cyanosis;muscles-grossly intact, increase in low back pain with movement NEUROLOGICAL: Patient is currently off sedation. No focal neurological deficits. No agitation, the patient withdraws to painful stimulation. He is not following commands yet. He opens his eyes spontaneously. No seizure activity has been noted. LYMPHATICS: No lymph nodes palpable in the axilla and neck. The patient has extensive edema in lower extremities and upper extremity is bilaterally. He has an arterial line in his right radial. - Labs CBC & Chem 7: 02/19/22 05:20 02/19/22 05:20 Labs: Abnormal Lab Results - Last 24 Hours (Table) 02/18/22 02/18/22 02/19/22 Range/Units 11:19 18:07 00:19 RBC (4.30-5.90) m/uL Hgb (13.0-17.5) gm/dL Hct (39.0-53.0) % MCHC (31.0-37.0) g/dL RDW (11.5-15.5) % Plt Count (150-450) k/uL Neutrophils # (1.3-7.7) k/uL Lymphocytes # (1.0-4.8) k/uL ABG pH (7.35-7.45) ABG pCO2 (35-45) mmHg ABG pO2 (83-108) mmHg ABG HCO3 (21-25) mmol/L ABG Total CO2 (19-24) mmol/L ABG O2 Saturation (94-97) % ABG Hematocrit (34.0-46.0) % Hemoglobin (13.0-17.5) gm/dL BUN (9-20) mg/dL Creatinine (0.66-1.25) mg/dL Glucose (74-99) mg/dL POC Glucose (mg/dL) 127 H 145 H 137 H (70-110) mg/dL Calcium (8.4-10.2) mg/dL AST (17-59) U/L Total Protein (6.3-8.2) g/dL Albumin (3.5-5.0) g/dL 02/19/22 02/19/22 02/19/22 Range/Units 05:20 05:20 06:01 RBC 2.74 L (4.30-5.90) m/uL Hgb 8.0 L (13.0-17.5) gm/dL Hct 26.9 L (39.0-53.0) % MCHC 29.8 L (31.0-37.0) g/dL RDW 20.1 H (11.5-15.5) % Plt Count 88 L (150-450) k/uL Neutrophils # 8.9 H (1.3-7.7) k/uL Lymphocytes # 0.7 L (1.0-4.8) k/uL ABG pH 7.31 L (7.35-7.45) ABG pCO2 51 H (35-45) mmHg ABG pO2 76 L (83-108) mmHg ABG HCO3 26 H (21-25) mmol/L ABG Total CO2 28 H (19-24) mmol/L ABG O2 Saturation 93.9 L (94-97) % ABG Hematocrit 24 L (34.0-46.0) % Hemoglobin 7.8 L (13.0-17.5) gm/dL BUN 47 H (9-20) mg/dL Creatinine 3.48 H (0.66-1.25) mg/dL Glucose 159 H (74-99) mg/dL POC Glucose (mg/dL) (70-110) mg/dL Calcium 7.4 L (8.4-10.2) mg/dL AST 14 L (17-59) U/L Total Protein 4.5 L (6.3-8.2) g/dL Albumin 2.0 L (3.5-5.0) g/dL 02/19/22 Range/Units 06:24 RBC (4.30-5.90) m/uL Hgb (13.0-17.5) gm/dL Hct (39.0-53.0) % MCHC (31.0-37.0) g/dL RDW (11.5-15.5) % Plt Count (150-450) k/uL Neutrophils # (1.3-7.7) k/uL Lymphocytes # (1.0-4.8) k/uL ABG pH (7.35-7.45) ABG pCO2 (35-45) mmHg ABG pO2 (83-108) mmHg ABG HCO3 (21-25) mmol/L ABG Total CO2 (19-24) mmol/L ABG O2 Saturation (94-97) % ABG Hematocrit (34.0-46.0) % Hemoglobin (13.0-17.5) gm/dL BUN (9-20) mg/dL Creatinine (0.66-1.25) mg/dL Glucose (74-99) mg/dL POC Glucose (mg/dL) 163 H (70-110) mg/dL Calcium (8.4-10.2) mg/dL AST (17-59) U/L Total Protein (6.3-8.2) g/dL Albumin (3.5-5.0) g/dL Microbiology - Last 24 Hours (Table) 02/15/22 06:05 Blood Culture - Preliminary Blood No Growth after 96 hours 02/14/22 04:33 Blood Culture - Preliminary Blood No Growth after 120 hours Assessment and Plan Plan: Acute hypercapnic respiratory failure, status post intubation and mechanical ventilation on 02/05/2022. The patient had prolonged respiratory failure and the patient currently has a tracheostomy tube in place inserted on 02/17/2022 and the patient has been off sedation for the past 24 hours. Neurologically, mo re alert although he is not following commands yet. His been off sedation for the past 24 hours. Large bilateral pleural effusions right more than left along with some volume loss on the right compared related to atelectasis with secondary respiratory failure. Status post PEG tube placement 02/12/2022. The patient is receiving enteral feeding for nutritional support with vital high protein. Stenotrophomonas tracheobronchitis/bronchopneumonia, based on his sputum culture that was obtained on 02/05/2022. Methicillin sensitive staph. aureus bacteremia, based on the blood cultures was obtained on 02/01/2022. Repeat cultures on 02/14/2022 and 02/15/2022 were negative. Repeat blood culture on 02/04/2022 was negative. The patient also had staph aureus in the in the right ankle wound in combination with strep agalactiae, group B. The most recent blood cultures from 02/15/2020 to were negative. Acute metabolic encephalopathy, currently on no sedation and we are monitoring his mental status Acute kidney injury, patient was started on hemodialysis. Anticoagulation The last hemodialysis session was yesterday without a total of 2 L of fluid was removed on 02/17/2022 and 3 L on 02/16/2022, and he had a total of 2.5 L removed on 02/18/2022. Nevertheless, he continues to have signs of volume overload and the patient has extensive edema in all 4 extremities and extensive scrotal edema and bilateral pleural effusions. Right-sided rib fractures, traumatic in nature involving 8, 9 and 10th rib closed fall. right basilar pulmonary contusion, post fall Anterior wedge compression deformity level vertebral body with a 30% compression and multilevel degenerative disc disease Limited hemoptysis or contusion exacerbated by Coumadin toxicity , recovered COPD and chronic smoking Coumadin toxicity with an INR above 10 given vitamin K, recovered Ileus post NG tube insertion, recovered History of frequent falls, not a good candidate for anticoagulants delerium, change in the mental status COPD Chronic bronchitis/reactive to chronic smoking History of chronic atrial flutter maintained on metoprolol and anticoagulation with warfarin Chronic kidney disease, likely stage III Stage II right ankle wound measuring 8.5 x 4 cm in size and surgical debridement has been done Unstageable deep tissue injury involving the Buttock bilateral obesity Possible obstructive sleep apnea Diabetic peripheral neuropathy Chronic back pain Degenerative arthritis Hyperlipidemia History of chronic back pain and degenerative arthritis History of renal calculus measuring 7 mm in size in the right renal pelvis Plan continue with the supportive care The PEEP was increased up to 8 and FiO2 is at 60% and this will be kept unchanged Obtain a noncontrast CAT scan of the chest to evaluate the pleural effusion/atelectasis/pneumonia Antibiotic management per infectious disease Possible chest tube insertion or thoracentesis although this last is going to be difficult be due to his body habitus. I'm going to make it final decision based on the CAT scan findings continue vent support, no changes on a mechanical ventilator for today Continue with pressors for now with an attempt to wean it down as long as the mean arterial pressure remains above 60 Hemodialysis was performed yesterday with 2.5 L of ultrafiltration Patient already has a PEG tube in place, continue enteral feeding for nutritional support Levemi Continue same antibiotic regimen for now Continue wound care and will discuss the findings with the general surgeon and see the patient will be a candidate for more debridement of his deep tissue injury of his buttocks bilaterally Cardiac rhythm is sinus with PACs Levemir insulin 14 units at bedtime along with a sliding scale coverage Very poor prognosis based on the above-mentioned comorbidities. We'll discuss today out, the family including the brother and the girlfriend and we'll attempt a at least a change in her CODE STATUS. Evaluation that was done and more than 30 minutes. Time with Patient: Greater than 30
[2022-02-19] MEDS: ANIDULAFUNGIN 100 MG in SODIUM CHLORIDE 0.9% 100 ML IVPB SCH (09:25)
[2022-02-19] MEDS: COLLAGENASE 250 UNIT/GM OINTMENT 30 GM TUBE TOPICAL SCH (09:26)
[2022-02-19] MEDS: CEFEPIME 1 GM in SODIUM CHLORIDE 0.9% 50 ML IVPB SCH ×2 (09:30→20:32)
[2022-02-19] MEDS: levETIRAcetam IV 500 MG in SODIUM CHLORIDE 0.9% 100 ML IVPB SCH (09:30)
--- NOTE | 2022-02-19 10:28 | P.PN ---
Subjective Progress Note Date: 02/19/22 02/19/2022: Patient was seen for a follow-up. Patient had undergone tracheostomy on 02/17/2022. Patient is off sedation since yesterday. He is quite alert, awake, appears somewhat encephalopathic. He does open his eyes clearly to calling his name. He makes eye contact, turns his head towards the examiner. However he is not following commands. 02/17/2022: Patient was seen for a follow-up. Patient continues to be intubated, sedated with propofol 50 mcg/kg/m. No clinical improvement. Patient continues to be severely encephalopathic. Patient undergoing tracheostomy to day. He already had pack placement. With sedation holiday, patient does not follow commands. He does not tolerate sedation holiday. 02/08/2022: Patient was seen for a follow-up. Patient has been intubated. Currently on propofol 40 mcg/kg/m. No seizure like activity or twitching noticed. Patient's blood pressure was low today, patient started on Levophed. Patient's significant other has mentioned that patient has frequent falls for last 2 years for which he uses a walker. Without walker, his legs give out and he falls. He has broke one leg, and fractured the other. She believes that he may had a bedsore in the right ankle for 2 days prior to arrival. Then she saw a red line going up the leg. There is no fever or chills. She says that he fell at home going to the bathroom just prior to arrival to the hospital. Patient's mentation was fine when he arrived. However mentation has progressively got worse while in the hospital. Objective - Vital Signs Vital signs: Vital Signs Temp 98.7 F 02/19/22 08:00 Pulse 110 H 02/19/22 08:30 Resp 20 02/19/22 08:30 BP 129/61 02/19/22 08:30 Pulse Ox 96 02/19/22 08:30 FiO2 60 02/19/22 08:00 Intake & Output 02/18/22 02/19/22 02/19/22 18:59 06:59 18:59 Intake Total 5666.809 0807 186 Output Total 2670 155 5 Balance -7066.787 8237 181 Weight 153.4 kg 158 kg Intake: IV 397 306 26 0.9% Sodium Chloride @ 120 120 20 10mls/hr Anidulafungin 100 mg In 100 Sodium Chloride 0.9% 100 ml @ 84 mls/hr IVPB DAILY [facility] Rx#:[id number] Cefepime 1 gm In Sodium 50 50 Chloride 0.9% 50 ml @ 12. 5 mls/hr IVPB Q12HR [facility] Rx#:[id number] Pressure bags 27 36 6 levETIRAcetam IV 500 mg 100 In Sodium Chloride 0.9% 100 ml @ 400 mls/hr IVPB DAILY [facility] Rx#:[id number] metroNIDAZOLE-NS PMX 500 100 mg In Saline 1 100ml.bag @ 100 mls/hr IVPB Q8HR [facility] Rx#:[id number] Intake, IV Titration 152.969 Amount Norepinephrine 32 mg In 76.809 Sodium Chloride 0.9% 218 ml @ 0.05 MCG/KG/MIN 3. 246 mls/hr IV .Q24H [facility] Rx#:[id number] propofoL 1,000 mg In 76.16 Empty Bag 1 bag @ 5 MCG/ KG/MIN 4.08 mls/hr IV . Q24H [facility] Rx#:[id number] Tube Feeding 780 780 130 Other 90 30 Output: Urine 170 155 5 Hemodialysis 2500 Other: Voiding Method Indwelling Catheter Indwelling Catheter ABP, PAP, CO, CI - Last Documented Arterial Blood Pressure 112/44 - Exam On general examination patient is morbidly obese, laying supine in the bed, does not appear to be in distress. Patient has tracheostomy. Patient is off sedation. Patient is quite alert and awake but appears slightly encephalopathic. Patient opens his eyes to calling his name, turns his head towards the examiner, makes eye contact. However he is not following any commands. Appears generalized weak as well. Patient has significant peripheral edema. Pupils are equal, round and reactive to light. - Labs CBC & Chem 7: 02/19/22 05:20 02/19/22 05:20 Labs: Abnormal Lab Results - Last 24 Hours (Table) 02/18/22 02/18/22 02/19/22 Range/Units 11:19 18:07 00:19 RBC (4.30-5.90) m/uL Hgb (13.0-17.5) gm/dL Hct (39.0-53.0) % MCHC (31.0-37.0) g/dL RDW (11.5-15.5) % Plt Count (150-450) k/uL Neutrophils # (1.3-7.7) k/uL Lymphocytes # (1.0-4.8) k/uL ABG pH (7.35-7.45) ABG pCO2 (35-45) mmHg ABG pO2 (83-108) mmHg ABG HCO3 (21-25) mmol/L ABG Total CO2 (19-24) mmol/L ABG O2 Saturation (94-97) % ABG Hematocrit (34.0-46.0) % Hemoglobin (13.0-17.5) gm/dL BUN (9-20) mg/dL Creatinine (0.66-1.25) mg/dL Glucose (74-99) mg/dL POC Glucose (mg/dL) 127 H 145 H 137 H (70-110) mg/dL Calcium (8.4-10.2) mg/dL AST (17-59) U/L Total Protein (6.3-8.2) g/dL Albumin (3.5-5.0) g/dL 02/19/22 02/19/22 02/19/22 Range/Units 05:20 05:20 06:01 RBC 2.74 L (4.30-5.90) m/uL Hgb 8.0 L (13.0-17.5) gm/dL Hct 26.9 L (39.0-53.0) % MCHC 29.8 L (31.0-37.0) g/dL RDW 20.1 H (11.5-15.5) % Plt Count 88 L (150-450) k/uL Neutrophils # 8.9 H (1.3-7.7) k/uL Lymphocytes # 0.7 L (1.0-4.8) k/uL ABG pH 7.31 L (7.35-7.45) ABG pCO2 51 H (35-45) mmHg ABG pO2 76 L (83-108) mmHg ABG HCO3 26 H (21-25) mmol/L ABG Total CO2 28 H (19-24) mmol/L ABG O2 Saturation 93.9 L (94-97) % ABG Hematocrit 24 L (34.0-46.0) % Hemoglobin 7.8 L (13.0-17.5) gm/dL BUN 47 H (9-20) mg/dL Creatinine 3.48 H (0.66-1.25) mg/dL Glucose 159 H (74-99) mg/dL POC Glucose (mg/dL) (70-110) mg/dL Calcium 7.4 L (8.4-10.2) mg/dL AST 14 L (17-59) U/L Total Protein 4.5 L (6.3-8.2) g/dL Albumin 2.0 L (3.5-5.0) g/dL 02/19/22 Range/Units 06:24 RBC (4.30-5.90) m/uL Hgb (13.0-17.5) gm/dL Hct (39.0-53.0) % MCHC (31.0-37.0) g/dL RDW (11.5-15.5) % Plt Count (150-450) k/uL Neutrophils # (1.3-7.7) k/uL Lymphocytes # (1.0-4.8) k/uL ABG pH (7.35-7.45) ABG pCO2 (35-45) mmHg ABG pO2 (83-108) mmHg ABG HCO3 (21-25) mmol/L ABG Total CO2 (19-24) mmol/L ABG O2 Saturation (94-97) % ABG Hematocrit (34.0-46.0) % Hemoglobin (13.0-17.5) gm/dL BUN (9-20) mg/dL Creatinine (0.66-1.25) mg/dL Glucose (74-99) mg/dL POC Glucose (mg/dL) 163 H (70-110) mg/dL Calcium (8.4-10.2) mg/dL AST (17-59) U/L Total Protein (6.3-8.2) g/dL Albumin (3.5-5.0) g/dL Microbiology - Last 24 Hours (Table) 02/15/22 06:05 Blood Culture - Preliminary Blood No Growth after 96 hours 02/14/22 04:33 Blood Culture - Preliminary Blood No Growth after 120 hours Assessment and Plan Assessment: * Metabolic encephalopathy. * Ventilator-dependent respiratory failure, now has tracheostomy. * Septicemia with staph aureus. * Uremia on dialysis * Cellulitis with right foot ulcer * Abnormal CT of abdomen and pelvis. Report reviewed. * Status post fall with L1 compression fracture * Coagulopathy * Right sided rib fractures secondary to fall. * Atrial fibrillation on long-term anticoagulation with Coumadin. * Peripheral edema. * Long-standing history of frequent falls, uses walker * COPD * Chronic tobacco use * Diabetes with hemoglobin A1c 8.1 * Probable diabetic peripheral neuropathy. * Peripheral arterial disease Plan: * Patient has multiple medical issues. Multiple specialties on board. * Repeat EEG 02/11/2022 was abnormal, with background slowing, suggestive of severe encephalopathy likely due to toxic metabolic causes. No epileptiform activity was seen. 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 Mild atrophy. * Decrease Keppra down to 250 mg daily. If the patient recovers, then Keppra can be weaned off. * Medical management as per IM and critical care. * Patient has septicemia with staph aureus. ID following patient currently on cefepime 1 g every 12 hours. * Carotid Doppler revealed no significant stenosis. Antegrade flow in both vertebral arteries. * 2-D echo revealed normal left-ventricular size with concentric LVH. EF is 60- 65%. * Patient has atrial fibrillation. Patient was on Coumadin. Coumadin apparently on hold. Consider resuming Coumadin if medically cleared. Discussed with patient's nurse to check with ICU attending. * Neurology will follow sporadically.
--- NOTE | 2022-02-19 11:31 | P.PN ---
Subjective Patient is seen in follow-up for acute kidney injury. Started on hemodialysis 02/09/2022. Intubated. On Levophed. Receiving tube feeds.. Urine output about 15-25 mL an hour. Seen on hemodialysis today. S/p tracheostomy. Awake but with nonpurposeful movements FiO2 at 60% Objective - Vital Signs Vital signs: Vital Signs Temp 98.7 F 02/19/22 08:00 Pulse 108 H 02/19/22 11:00 Resp 21 02/19/22 11:00 BP 117/59 02/19/22 11:00 Pulse Ox 95 02/19/22 11:00 FiO2 60 02/19/22 10:41 Intake & Output 02/18/22 02/19/22 02/19/22 18:59 06:59 18:59 Intake Total 4396.610 2085 770 Output Total 2670 155 5 Balance -4465.124 3584 765 Weight 153.4 kg 158 kg Intake: IV 397 306 415 0.9% Sodium Chloride @ 120 120 50 10mls/hr Anidulafungin 100 mg In 100 100 Sodium Chloride 0.9% 100 ml @ 84 mls/hr IVPB DAILY [facility] Rx#:[id number] Cefepime 1 gm In Sodium 50 50 50 Chloride 0.9% 50 ml @ 12. 5 mls/hr IVPB Q12HR [facility] Rx#:[id number] Pressure bags 27 36 15 levETIRAcetam IV 500 mg 100 100 In Sodium Chloride 0.9% 100 ml @ 400 mls/hr IVPB DAILY [facility] Rx#:[id number] metroNIDAZOLE-NS PMX 500 100 100 mg In Saline 1 100ml.bag @ 100 mls/hr IVPB Q8HR [facility] Rx#:[id number] Intake, IV Titration 152.969 Amount Norepinephrine 32 mg In 76.809 Sodium Chloride 0.9% 218 ml @ 0.05 MCG/KG/MIN 3. 246 mls/hr IV .Q24H [facility] Rx#:[id number] propofoL 1,000 mg In 76.16 Empty Bag 1 bag @ 5 MCG/ KG/MIN 4.08 mls/hr IV . Q24H [facility] Rx#:[id number] Tube Feeding 780 780 325 Other 90 30 Output: Urine 170 155 5 Hemodialysis 2500 Other: Voiding Method Indwelling Catheter Indwelling Catheter Indwelling Catheter ABP, PAP, CO, CI - Last Documented Arterial Blood Pressure 105/47 - Exam Patient is sedated and on the vent. Bilateral breath sounds are heard Examination of the heart S1 and S2 Abdomen is obese distended Examination lower extremity shows edema 2-3+ bilaterally upper and lower extremities with chronic skin changes in the legs. Significant scrotal edema noted [employer] exam shows pt is awake but not following commands. - Labs CBC & Chem 7: 02/19/22 05:20 02/19/22 05:20 Labs: Abnormal Lab Results - Last 24 Hours (Table) 02/18/22 02/19/22 02/19/22 Range/Units 18:07 00:19 05:20 RBC 2.74 L (4.30-5.90) m/uL Hgb 8.0 L (13.0-17.5) gm/dL Hct 26.9 L (39.0-53.0) % MCHC 29.8 L (31.0-37.0) g/dL RDW 20.1 H (11.5-15.5) % Plt Count 88 L (150-450) k/uL Neutrophils # 8.9 H (1.3-7.7) k/uL Lymphocytes # 0.7 L (1.0-4.8) k/uL ABG pH (7.35-7.45) ABG pCO2 (35-45) mmHg ABG pO2 (83-108) mmHg ABG HCO3 (21-25) mmol/L ABG Total CO2 (19-24) mmol/L ABG O2 Saturation (94-97) % ABG Hematocrit (34.0-46.0) % Hemoglobin (13.0-17.5) gm/dL BUN (9-20) mg/dL Creatinine (0.66-1.25) mg/dL Glucose (74-99) mg/dL POC Glucose (mg/dL) 145 H 137 H (70-110) mg/dL Calcium (8.4-10.2) mg/dL AST (17-59) U/L Total Protein (6.3-8.2) g/dL Albumin (3.5-5.0) g/dL 02/19/22 02/19/22 02/19/22 Range/Units 05:20 06:01 06:24 RBC (4.30-5.90) m/uL Hgb (13.0-17.5) gm/dL Hct (39.0-53.0) % MCHC (31.0-37.0) g/dL RDW (11.5-15.5) % Plt Count (150-450) k/uL Neutrophils # (1.3-7.7) k/uL Lymphocytes # (1.0-4.8) k/uL ABG pH 7.31 L (7.35-7.45) ABG pCO2 51 H (35-45) mmHg ABG pO2 76 L (83-108) mmHg ABG HCO3 26 H (21-25) mmol/L ABG Total CO2 28 H (19-24) mmol/L ABG O2 Saturation 93.9 L (94-97) % ABG Hematocrit 24 L (34.0-46.0) % Hemoglobin 7.8 L (13.0-17.5) gm/dL BUN 47 H (9-20) mg/dL Creatinine 3.48 H (0.66-1.25) mg/dL Glucose 159 H (74-99) mg/dL POC Glucose (mg/dL) 163 H (70-110) mg/dL Calcium 7.4 L (8.4-10.2) mg/dL AST 14 L (17-59) U/L Total Protein 4.5 L (6.3-8.2) g/dL Albumin 2.0 L (3.5-5.0) g/dL Microbiology - Last 24 Hours (Table) 02/15/22 06:05 Blood Culture - Preliminary Blood No Growth after 96 hours 02/14/22 04:33 Blood Culture - Preliminary Blood No Growth after 120 hours Assessment and Plan Assessment: 1. Acute kidney injury ATN secondary to sepsis and hypotension. 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 Started on hemodialysis on 02/09/2022. Oliguric. Serum creatinine in April 2019 was 0.8. No evidence of obstruction on CAT scan. 2. Acute hypoxic, hypercapnic respiratory failure currently on the vent 3. MSSA bacteremia initially on vancomycin and currently on cefazolin. Last blood cultures drawn on 02/04/2022 are negative, source is right foot ulcer 4. Hyperphosphatemia associated with acute kidney injury currently maintained on PhosLo 5. Volume overload, slowly improving with UF with hemodialysis Plan: Continue with daily treatments of hemodialysis. Adjusted dialysis for potassium bath.
[2022-02-19 11:49] LABS: Glucose,Whole Blood 154 mg/dL (70-110)
[2022-02-19] MEDS: APIXABAN 2.5 MG TABLET PO SCH ×2 (12:39→20:33)
--- NOTE | 2022-02-19 13:51 | P.PN ---
Subjective Progress Note Date: 02/19/22 This is a 61-year-old patient who follows with Dr. Sridhar Chan. Chronic stable medical conditions include diabetes, hypertension, hyperlipidemia, chronic low back problems, cigarette smoker. At the baseline uses a walker. Patient slipped in the bathroom falling on his buttock. Was not able to get up. By the EMS report he had fallen 24 hours prior to the picking him up. Patient been complaining of pain in the right rib cage in the lower back. X-ray was negative for fracture. Patient continued to have significant pain especially with deep breathing. Patient also had a congestive cough and wheezing. Some bloody sputum. Denies any fever and chills. Patient also complaining of urinary retention and requesting a Shepard catheter. at the bedside. No fever no chills. Orthopedics consulted for the same. Patient normally has a bowel movement once a week. Patient also has a wound on the right foot lateral part of the ankles for about a week. Ischemic changes. From rubbing against a bedpost. Patient's INR in the ER was greater than 10. Was given vitamin K. 10 mg Patient bit with Coumadin toxicity, given vitamin K, acute COPD exacerbation, uncontrolled atrial flutter put on Lopressor, right chest wall pain. Computed tomography scan lumbar spine and chest was ordered. Large wound on the right lateral malleolus-ID and vascular consulted.. IV cefepime. February 01: Patient yesterday to see refused his computed tomography scan of the chest and lumbar spine. Done today. Right-sided rib fractures, pulmonary contusion confirm. L1 vertebral body 30% wedge compression fracture. Patient's girlfriend the bedside. It was discussed in detail with her. Patient wanting again and again to pull out his NG tube. Requests the to stay with the patient. Patient is also had the dark aspirate from the stomach for which she has NG tube. Surgery was consulted for the same. Also this morning right foot wound was debrided by Dr. Ibarra from vascular. Wound base was relatively clean. No undermining or tunneling. February 02: Delirious. NG tube to suction. Has been in restraints because point NG TUBE several times. Mumbling to himself. Dressing over the right ankle. Not in distress. Ileus. Chest x-ray showing right lower lobe/atelectasis. February 03: Hospital computer system was down. Patient remains delirious. Nasal cannula. Lethargic. Family the bedside. Antibiotics. A. fib uncontrolled. EEG evidence of metabolic encephalopathy. No clear-cut epileptiform activity. Started on Keppra by neurology. February 04: ICU: Girlfriend at the bedside. In atrial fibrillation uncontrolled. On IV Cardizem and IV amiodarone. NG tube to suction. Patient lethargic. Multiple breathing. 2 L. Oxygen. February 05: ICU. Atrial fibrillation better controlled this morning. Cardizem discontinued. Patient respiratory status worsened this morning and patient is intubated. FiO2 45 and a PEEP of 5. Atrial fibrillation, controlled. Drips include amiodarone, propofol, levo fed. Discussed with girlfriend the bedside. Understands prognosis guarded. February 06: ICU: Ventilated. FiO2 45 and a PEEP of 5. NG tube is clamped. On IV propofol. Sedated. Heart rate better controlled. Was started on Coumadin yesterday. Worsening renal function. Nephrology consulted. 02/07/2022 Patient is currently in the MICU and on mechanical ventilator. Tidal volume of 400, FiO2 40% and PEEP of 5. Patient is off pressor support today. Currently on propofol and is also on tube feeding. Chest x-ray showed stable exam with stable support lines and tubes. Correlate for congestive heart failure. Patient was given a dose of IV Lasix. Laboratory data showed WBC 18.4 hemoglobin 11.6 and platelets 458 Sodium 141 potassium 3.7 chloride 103 bicarb is 18 BUN 49 and creatinine 3.73 and calcium 7.3. INR is 2.2. Patient is being followed by nephrology cardiology and critical care team. 02/08/2022 Patient is currently on mechanical ventilator and sedated with propofol. Assist control with FiO2 40% and tidal volume of 400 and PEEP of 5. Patient is being continued on antibiotics above cefepime and Flagyl. Sputum gram stain gram-negative bacilli and Lynda. Chest x-ray today showed findings suggestive of slightly worsening CHF exacerbation as there is cardiomegaly with mild to moderate central venous congestion and small to moderate-sized bilateral pleural effusion. Laboratory test showed WBC increased to 23.6 hemoglobin 9.1 and platelets 162 I NR 3.0 Sodium 139 potassium 4.3 chloride 113 bicarb is 40 BUN 54 and creatinine worsening to 4.36 Kaylynn 12: I resumed the care of patient today ICU: Med: 40/5. Received vitamin K 5 mg IV to bring the INR down for dialysis catheter. Drips include bicarbonate, propofol, epinephrine. Patient is a stage II coccyx is ulcer. Plan is to change the NG tube to on G-tube today. For possible colitis/fistula on antibiotics. at the bedside. February 10: ICU. Ventilator 50/5. Hemodialysis catheter placed last night. Hemodialyzed yesterday and getting dialyzed today. Remains in atrial fib rillation heart rate uncontrolled. Getting up sedation holiday. Drips include bicarbonate and norepinephrine. Propofol currently held. 2 feeding at 46 mL an hour. Does open eyes. February 11: ICU. Ventilator. 50/5. Third day for hemodialysis. 1.5 L to be removed today. Back on propofol. Drips include bicarbonate, norepinephrine, propofol. On G-tube feeding. Patient back in sinus rhythm. Bag and tracheostomy to planning for next week. 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 IV antifungal started by ID. February 12: ICU: Ventilator: 40/5. Telemetry shows sinus rhythm. Drips include propofol and norepinephrine. On G-tube feeding. Discussed with the at the bedside. Understands prognosis guarded. IV antibiotics and antifungals. February 13: ICU: Ventilator: 40/5. PEG tube placed yesterday by Dr. Cornejo. Drips include bicarbonate, propofol, norepinephrine. Getting hemodialysis done today. February 14: ICU: Medicated. 2 feeding at 65 mL an hour. This included propofol and norepinephrine. Hemodialysis done today. Sinus rhythm. February 15: ICU: Ventilator: 40/5. 2 feeding at 65 mL an hour. Drips include propofol and norepinephrine. No hemodialysis today. at the bedside. Discussed. 02/16/2022 Patient seen and evaluated and follow-up continues to be in the ICU on mechanical ventilation with sedation with multiple medical consultations following. Patient is currently receiving hemodialysis and continues with a temporary dialysis catheter. Patient is still full code and overall prognosis remains extremely poor and guarded. Patient's FiO2 is 40% with a PEEP of 5. Patient also continues on antifungal along with cefepime and metronidazole with infectious disease following. Patient is sedated on propofol continues on Levophed as well. WBC is 12.9 with hemoglobin of 8.7, sodium is 134 with a potassium of 4.5 current creatinine is 4.69 with a BUN of 66. Patient is maintained on tube feedings and has received the PEG tubing is scheduled for tracheostomy tentatively today if OR available. Again overall prognosis remains extremely guarded. 02/17/2022 Patient continues to be in the ICU on mechanical vent and FiO2 remains 40% with a PEEP of 5. Patient continues on norepinephrine with multiple medical consultations following. Patient continues on propofol for sedation and also was maintained on hemodialysis almost daily. Patient continues on cefepime along with an antifungal and Flagyl with anxiety following sputum culture showing 16 oh troph ammonias maltophilia with Lynda most recent blood cultures have been negative. Patient is afebrile although WBC is elevated at 14.5 and hemoglobin is 8.9, BUN is 61 with a creatinine of 4.55, sodium is 135 and sodium bicarb tablets have been discontinued. Magnesium was 1.9. Plan is tentatively scheduled for tracheostomy with general surgery today post hemodialysis. Overall prognosis is extremely guarded. Chest x-ray shows continued bilateral pleural effusions with no significant change from previous day. Patient is maintained on tube feedings via PEG tube although on hold for surgery today 02/18/2022 Patient is seen and evaluated continues to be in the ICU with multiple medical consultations following. Patient is status post tracheostomy placement with Dr. Villegas yesterday evening and tolerating well with no leaks noted. Patient continues on FiO2 of 40% with a PEEP of 5. Patient undergoing sedation holiday and propofol was recently turned off. Patient is awake and opening eyes spontaneously although not following commands on exam. Patient is looking around the room and mouthing words with no comprehension. Patient with extensive wounds of the sacro-coccyx region that are currently unstageable and general surgery is following and may possibly require debridement of these areas. Patient is status post debridement of the right foot previously. Patient is maintained on antibiotics along with antifungal's and infectious disease is following. Patient is afebrile and WBC is 10.6, hemoglobin is 8.4, patient is also with a BUN of 50 and creatinine is 3.78, magnesium is 1.8. Patient is being closely monitored by nephrology with a temporary site of the right femoral receiving daily dialysis. Patient continues on low-dose Levophed and working on weaning as tolerated. PEG tube feedings are at goal and tolerating. Overall prognosis remains extremely guarded. 02/19/2022 Patient is seen in follow-up this morning and has been off propofol since yesterday although continues to not follow commands. Multiple medical consultations following. Patient is status post recent tracheostomy and also PEG tube placement and has been resumed on tube feedings and tolerating at goal. Patient is continuing on hemodialysis with a right groin temporary catheter. Chest x-ray this morning shows some possible progression of pleural effusions and airspace disease or atelectasis especially in the right lung. Nursing staff questioning about anticoagulation and his Coumadin was on hold for tracheostomy and patient is being started on eliquis. Patient continues on antibiotics as well in the form of cefepime and Flagyl and antifungal's with anxiety following. Patient also continues on low-dose Levophed. Patient continues on mechanical ventilation via tracheostomy with an FiO2 of 60. Patient scheduled to receive dialysis again today. General surgery is following and may be required for debridement of the decubitus ulcers once more stable. Pulmonary discussing possible thoracentesis in the near future. Patient is currently afebrile. Prognosis remains extremely guarded. Review of systems: unAble to obtain as patient is currently not following commands Active Medications Acetaminophen (Acetaminophen Tab 325 Mg Tab) 650 mg PO Q6HR PRN PRN Reason: Mild Pain or Fever > 100.5 Albuterol/Ipratropium (Ipratropium-Albuterol 3 Ml Neb) 3 ml INHALATION RT-QID [facility] Last Admin: 02/19/22 10:45 Dose: 3 ml Amiodarone HCl (Amiodarone 200 Mg Tab) 200 mg PO BID [facility] Last Admin: 02/19/22 08:48 Dose: 200 mg Apixaban (Apixaban 2.5 Mg Tablet) 2.5 mg PO BID [facility]; Protocol Last Admin: 02/19/22 12:39 Dose: 2.5 mg Artificial Tears (Artificial Tears-Hypromellose Drops 15 Ml Btl) 2 drops BOTH EYES TID PRN PRN Reason: Dry Eye(s) Bisacodyl (Bisacodyl 10 Mg Supp) 10 mg RECTAL DAILY [facility] Last Admin: 02/19/22 08:47 Dose: 10 mg Budesonide (Budesonide 1 Mg/2 Ml Nebu) 1 mg INHALATION RT-BID [facility] Last Admin: 02/19/22 07:39 Dose: 1 mg Calcium Acetate (Calcium Acetate 667 Mg Tab) 667 mg PO BID-W/MEALS [facility] Last Admin: 02/19/22 06:56 Dose: 667 mg Calcium Carbonate/Glycine (Calcium Carbonate 500 Mg Chewable) 1,000 mg PO Q4HR PRN PRN Reason: Dyspepsia Last Admin: 01/31/22 14:29 Dose: 1,000 mg Chlorhexidine Gluconate (Chlorhexidine Gluconate 15 Ml Cup) 15 ml MUCOUS MEM BID [facility] Last Admin: 02/19/22 08:47 Dose: 15 ml Collagenase (Collagenase 250 Unit/Gm Ointment 30 Gm Tube) 1 applic TOPICAL DAILY [facility]; Protocol Last Admin: 02/19/22 09:26 Dose: 1 applic Darbepoetin Mann (Darbepoetin Mann 60 Mcg/0.3 Ml Syringe) 60 mcg SQ Q7D [facility] Last Admin: 02/18/22 18:34 Dose: 60 mcg Dextrose/Water (Dextrose 50% Syringe 50 Ml) 25 ml IVP PER PROTOCOL PRN; Protocol PRN Reason: Hypoglycemia Last Admin: 02/06/22 18:11 Dose: 25 ml Dextrose/Water (Dextrose 50% Syringe 50 Ml) 50 ml IVP PER PROTOCOL PRN; Protocol PRN Reason: Hypoglycemia Propofol 1,000 mg/ IV Solution 100 mls @ 4.08 mls/hr IV .Q24H [facility]; Protocol Last Titration: 02/18/22 10:06 Dose: 0 mcg/kg/min, 0 mls/hr Metronidazole 500 mg/ IV (Solution) 100 mls @ 100 mls/hr IVPB Q8HR [facility]; Protocol Last Admin: 02/19/22 08:13 Dose: 100 mls/hr Cefepime HCl 1 gm/ Sodium (Chloride) 50 mls @ 12.5 mls/hr IVPB Q12HR [facility] Last Admin: 02/19/22 09:30 Dose: 12.5 mls/hr Norepinephrine Bitartrate 32 (mg/ Sodium Chloride) 250 mls @ 3.246 mls/hr IV .Q24H [facility]; Protocol Last Titration: 02/19/22 11:35 Dose: 0.055 mcg/kg/min, 3.571 mls/hr Anidulafungin 100 mg/ Sodium (Chloride) 100 mls @ 84 mls/hr IVPB DAILY [facility]; Protocol Last Admin: 02/19/22 09:25 Dose: 84 mls/hr Insulin Aspart (Insulin Aspart (Novolog) 100 Unit/Ml Vial) 0 unit SQ Q6HR [facility]; Protocol Last Admin: 02/19/22 11:50 Dose: 2 unit Insulin Detemir (Insulin Detemir (Levemir) 100 Unit/Ml Syr) 14 unit SQ HS [facility] Last Admin: 02/18/22 20:13 Dose: 14 unit Lactulose (Lactulose 20 Gm/30 Ml Cup) 30 gm PO BID [facility] Last Admin: 02/19/22 08:47 Dose: 30 gm Levetiracetam (Levetiracetam 250 Mg Tab) 250 mg PO DAILY [facility] Metoprolol Tartrate (Metoprolol Tartrate 25 Mg Tab) 25 mg PO BID [facility] Last Admin: 02/19/22 08:47 Dose: 25 mg Miscellaneous Information (Potassium Replacement Protocol 1 Each Misc) 1 each MISCELLANE DAILY PRN; Protocol PRN Reason: Per Protocol Miscellaneous Information (Magnesium Replacement Protocol 1 Each Misc) 1 each MISCELLANE DAILY PRN; Protocol PRN Reason: Per Protocol Morphine Sulfate (Morphine Oral Soln 10 Mg/5 Ml Cup) 15 mg PO Q12H [facility] Last Admin: 02/19/22 11:54 Dose: 15 mg Naloxone HCl (Naloxone 0.4 Mg/Ml 1 Ml Vial) 0.2 mg IV Q2M PRN PRN Reason: Opioid Reversal Ondansetron HCl (Ondansetron 4 Mg/2 Ml Vial) 4 mg IVP Q8HR PRN PRN Reason: Nausea And Vomiting Last Admin: 02/02/22 08:41 Dose: 4 mg Pantoprazole Sodium (Pantoprazole 40 Mg/10 Ml Vial) 40 mg IVP BID [facility] Last Admin: 02/19/22 08:47 Dose: 40 mg Pregabalin (Pregabalin 100 Mg Cap) 100 mg PO BID [facility] Last Admin: 02/19/22 08:48 Dose: 100 mg Torsemide (Torsemide 20 Mg Tab) 40 mg PO DAILY [facility] Last Admin: 02/19/22 08:48 Dose: 40 mg Physical examination: GENERAL: laying in bed, continues on the ventilator via tracheostomy with an FiO2 of 60% Vitals: Temp is 98.6F, heart rate is 103, respirations are 19, blood pressure 116/64, arterial is 105/48, oxygen saturations 96% on mechanical ventilation EYES: Pupils equal. Conjunctiva normal. HEENT: External appearance of nose and ears normal, oral cavity dry, peg tube with tube feeding, newly placed tracheostomy 02/17/2022 with no air leak present NECK: JVD not raised; masses not palpable. HEART: Heart sounds regular; mild edema. LUNGS: Respiratory rate increased; decreased breath sound, ABDOMEN: Soft, distended, nontender, liver spleen not palpable, no masses palpable. PEG tube. PSYCH: Unable to assess completely as patient is not following commands although spontaneously opening eyes and responding to name by turning head DERMATOLOGICAL: Wound on right ankle lateral malleolus. Under dressing. Stage II coccygeal ulcer noted. See nursing notes Assessment: -Coumadin toxicity. present on admission - right lung contusion.-Secondary to fall. hemoptysis on presentation -Post tracheostomy placement on 02/17/2022 -Stage II coccyx pressure ulcer, present on admission -Pneumonia, secondary to Stenostrophonas maltophilia, Lynda albicans: Slow to respond -Sepsis with positive blood cultures MSSA, likely source right ankle. From January 31. -Acute hypoxic respiratory failure, multifactorial: ventilator support, intubated on 02/05 -Acute COPD exacerbation, with chronic bronchitis component in a current smoker -Chronic nicotine dependence, cigarette smoker -Paroxysmal atrial flutter,currently in sinus rhythm -Possible CKD with possible acute component. -Acute kidney injury, ATN, likely cardiorenal syndrome.: Not improving, now on dialysis since 02/09 -Acute right-sided 8-10 ribs fracture secondary to fall -Diabetes mellitus type 2, -Diabetic peripheral neuropathy -Chronic low back pain: -Anxiety depression not otherwise specified -Hyperlipidemia -Right ankle lateral, diabetic wound, stage II acute. Wound culture positive for Streptococcus agalactiae and Staphylococcus aureus. status post debridement with vascular surger on 02/01 -Acute L1 30% wedge fracture secondary to fall -Acute delirium multifactorial. -Acute ileus, requiring disempaction x2 -Possible colitis /fistula on computed tomography scan. -Full code Plan: Recommend continue with IV antibiotics with infectious disease following patient is currently maintained on cefepime, Flagyl, antifungal with stenotrophomonas maltophilia and Lynda along with staph aureus in the sputum and wound cultures Patient is receiving dialysis with nephrology following closely continues with a temporary catheter of the right groin Patient has received a PEG tube and maintained on tube feedings and tolerating Patient is post tracheostomy placement 02/17/2022 Patient continues to be in the ICU on mechanical vent with an FiO2 of 60% and PEEP is 5 Recommend repeat labs and will continue to monitor closely. Patient has been off sedation since yesterday 02/18/2022 and spontaneously opening eyes and somewhat responds to name although not following any commands neurology is on board Overall prognosis is extremely poor and guarded and CODE STATUS needs to be addressed The impression and plan of care has been dictated by Xochitl Leon, Nurse Practitioner as directed. Dr. Ilan MD I have performed a history and examination and MDM of this patient, discussed the same with the dictator, and agree with the dictator's assessment and plan as written ,documented as a scribe. Based on total visit time, I have performed more than 50% of the visit. Objective - Vital Signs Vital signs: Vital Signs Temp 98.7 F 02/19/22 08:00 Pulse 110 H 02/19/22 08:30 Resp 20 02/19/22 08:30 BP 129/61 02/19/22 08:30 Pulse Ox 96 02/19/22 08:30 FiO2 60 02/19/22 08:00 Intake & Output 02/18/22 02/19/22 02/19/22 18:59 06:59 18:59 Intake Total 3400.110 7106 186 Output Total 2670 155 5 Balance -0135.445 8839 181 Weight 153.4 kg 158 kg Intake: IV 397 306 26 0.9% Sodium Chloride @ 120 120 20 10mls/hr Anidulafungin 100 mg In 100 Sodium Chloride 0.9% 100 ml @ 84 mls/hr IVPB DAILY [facility] Rx#:[id number] Cefepime 1 gm In Sodium 50 50 Chloride 0.9% 50 ml @ 12. 5 mls/hr IVPB Q12HR [facility] Rx#:[id number] Pressure bags 27 36 6 levETIRAcetam IV 500 mg 100 In Sodium Chloride 0.9% 100 ml @ 400 mls/hr IVPB DAILY [facility] Rx#:[id number] metroNIDAZOLE-NS PMX 500 100 mg In Saline 1 100ml.bag @ 100 mls/hr IVPB Q8HR [facility] Rx#:[id number] Intake, IV Titration 152.969 Amount Norepinephrine 32 mg In 76.809 Sodium Chloride 0.9% 218 ml @ 0.05 MCG/KG/MIN 3. 246 mls/hr IV .Q24H [facility] Rx#:[id number] propofoL 1,000 mg In 76.16 Empty Bag 1 bag @ 5 MCG/ KG/MIN 4.08 mls/hr IV . Q24H [facility] Rx#:[id number] Tube Feeding 780 780 130 Other 90 30 Output: Urine 170 155 5 Hemodialysis 2500 Other: Voiding Method Indwelling Catheter Indwelling Catheter ABP, PAP, CO, CI - Last Documented Arterial Blood Pressure 112/44 - Labs CBC & Chem 7: 02/19/22 05:20 02/19/22 05:20 Labs: Abnormal Lab Results - Last 24 Hours (Table) 02/18/22 02/18/22 02/19/22 Range/Units 11:19 18:07 00:19 RBC (4.30-5.90) m/uL Hgb (13.0-17.5) gm/dL Hct (39.0-53.0) % MCHC (31.0-37.0) g/dL RDW (11.5-15.5) % Plt Count (150-450) k/uL Neutrophils # (1.3-7.7) k/uL Lymphocytes # (1.0-4.8) k/uL ABG pH (7.35-7.45) ABG pCO2 (35-45) mmHg ABG pO2 (83-108) mmHg ABG HCO3 (21-25) mmol/L ABG Total CO2 (19-24) mmol/L ABG O2 Saturation (94-97) % ABG Hematocrit (34.0-46.0) % Hemoglobin (13.0-17.5) gm/dL BUN (9-20) mg/dL Creatinine (0.66-1.25) mg/dL Glucose (74-99) mg/dL POC Glucose (mg/dL) 127 H 145 H 137 H (70-110) mg/dL Calcium (8.4-10.2) mg/dL AST (17-59) U/L Total Protein (6.3-8.2) g/dL Albumin (3.5-5.0) g/dL 02/19/22 02/19/22 02/19/22 Range/Units 05:20 05:20 06:01 RBC 2.74 L (4.30-5.90) m/uL Hgb 8.0 L (13.0-17.5) gm/dL Hct 26.9 L (39.0-53.0) % MCHC 29.8 L (31.0-37.0) g/dL RDW 20.1 H (11.5-15.5) % Plt Count 88 L (150-450) k/uL Neutrophils # 8.9 H (1.3-7.7) k/uL Lymphocytes # 0.7 L (1.0-4.8) k/uL ABG pH 7.31 L (7.35-7.45) ABG pCO2 51 H (35-45) mmHg ABG pO2 76 L (83-108) mmHg ABG HCO3 26 H (21-25) mmol/L ABG Total CO2 28 H (19-24) mmol/L ABG O2 Saturation 93.9 L (94-97) % ABG Hematocrit 24 L (34.0-46.0) % Hemoglobin 7.8 L (13.0-17.5) gm/dL BUN 47 H (9-20) mg/dL Creatinine 3.48 H (0.66-1.25) mg/dL Glucose 159 H (74-99) mg/dL POC Glucose (mg/dL) (70-110) mg/dL Calcium 7.4 L (8.4-10.2) mg/dL AST 14 L (17-59) U/L Total Protein 4.5 L (6.3-8.2) g/dL Albumin 2.0 L (3.5-5.0) g/dL 02/19/22 Range/Units 06:24 RBC (4.30-5.90) m/uL Hgb (13.0-17.5) gm/dL Hct (39.0-53.0) % MCHC (31.0-37.0) g/dL RDW (11.5-15.5) % Plt Count (150-450) k/uL Neutrophils # (1.3-7.7) k/uL Lymphocytes # (1.0-4.8) k/uL ABG pH (7.35-7.45) ABG pCO2 (35-45) mmHg ABG pO2 (83-108) mmHg ABG HCO3 (21-25) mmol/L ABG Total CO2 (19-24) mmol/L ABG O2 Saturation (94-97) % ABG Hematocrit (34.0-46.0) % Hemoglobin (13.0-17.5) gm/dL BUN (9-20) mg/dL Creatinine (0.66-1.25) mg/dL Glucose (74-99) mg/dL POC Glucose (mg/dL) 163 H (70-110) mg/dL Calcium (8.4-10.2) mg/dL AST (17-59) U/L Total Protein (6.3-8.2) g/dL Albumin (3.5-5.0) g/dL Microbiology - Last 24 Hours (Table) 02/15/22 06:05 Blood Culture - Preliminary Blood No Growth after 96 hours 02/14/22 04:33 Blood Culture - Preliminary Blood No Growth after 120 hours
--- NOTE | 2022-02-19 15:54 | P.PN ---
Subjective Progress Note Date: 02/19/22 Principal diagnosis: Upper GI bleed Patient remains on the ventilator. FiO2 was increased somewhat. Sedation has been on hold. He is going for CAT scan to evaluate his pleural effusions this evening. Tracheostomy without air leak. Tolerating tube feeds. Objective - Vital Signs Vital signs: Vital Signs Temp 98.6 F 02/19/22 12:00 Pulse 100 02/19/22 15:00 Resp 16 02/19/22 14:00 BP 120/67 02/19/22 14:00 Pulse Ox 94 L 02/19/22 14:00 FiO2 60 02/19/22 14:43 Intake & Output 02/18/22 02/19/22 02/19/22 18:59 06:59 18:59 Intake Total 8443.422 1535 1116.033 Output Total 2670 155 20 Balance -7968.908 5223 1096.033 Weight 153.4 kg 158 kg Intake: IV 397 306 454 0.9% Sodium Chloride @ 120 120 80 10mls/hr Anidulafungin 100 mg In 100 100 Sodium Chloride 0.9% 100 ml @ 84 mls/hr IVPB DAILY [facility] Rx#:[id number] Cefepime 1 gm In Sodium 50 50 50 Chloride 0.9% 50 ml @ 12. 5 mls/hr IVPB Q12HR [facility] Rx#:[id number] Pressure bags 27 36 24 levETIRAcetam IV 500 mg 100 100 In Sodium Chloride 0.9% 100 ml @ 400 mls/hr IVPB DAILY [facility] Rx#:[id number] metroNIDAZOLE-NS PMX 500 100 100 mg In Saline 1 100ml.bag @ 100 mls/hr IVPB Q8HR [facility] Rx#:[id number] Intake, IV Titration 152.969 82.033 Amount Norepinephrine 32 mg In 76.809 82.033 Sodium Chloride 0.9% 218 ml @ 0.05 MCG/KG/MIN 3. 246 mls/hr IV .Q24H [facility] Rx#:[id number] propofoL 1,000 mg In 76.16 Empty Bag 1 bag @ 5 MCG/ KG/MIN 4.08 mls/hr IV . Q24H [facility] Rx#:[id number] Tube Feeding 780 780 520 Other 90 60 Output: Urine 170 155 20 Hemodialysis 2500 Other: Voiding Method Indwelling Catheter Indwelling Catheter Indwelling Catheter ABP, PAP, CO, CI - Last Documented Arterial Blood Pressure 124/54 - Exam Tracheostomy and PEG tube both in place without evidence of bleeding or erythema, no air leak at trach site - Labs CBC & Chem 7: 02/19/22 05:20 02/19/22 05:20 Labs: Abnormal Lab Results - Last 24 Hours (Table) 02/18/22 02/19/22 02/19/22 Range/Units 18:07 00:19 05:20 RBC 2.74 L (4.30-5.90) m/uL Hgb 8.0 L (13.0-17.5) gm/dL Hct 26.9 L (39.0-53.0) % MCHC 29.8 L (31.0-37.0) g/dL RDW 20.1 H (11.5-15.5) % Plt Count 88 L (150-450) k/uL Neutrophils # 8.9 H (1.3-7.7) k/uL Lymphocytes # 0.7 L (1.0-4.8) k/uL ABG pH (7.35-7.45) ABG pCO2 (35-45) mmHg ABG pO2 (83-108) mmHg ABG HCO3 (21-25) mmol/L ABG Total CO2 (19-24) mmol/L ABG O2 Saturation (94-97) % ABG Hematocrit (34.0-46.0) % Hemoglobin (13.0-17.5) gm/dL BUN (9-20) mg/dL Creatinine (0.66-1.25) mg/dL Glucose (74-99) mg/dL POC Glucose (mg/dL) 145 H 137 H (70-110) mg/dL Calcium (8.4-10.2) mg/dL Phosphorus (2.5-4.5) mg/dL AST (17-59) U/L Total Protein (6.3-8.2) g/dL Albumin (3.5-5.0) g/dL 02/19/22 02/19/22 02/19/22 Range/Units 05:20 05:20 06:01 RBC (4.30-5.90) m/uL Hgb (13.0-17.5) gm/dL Hct (39.0-53.0) % MCHC (31.0-37.0) g/dL RDW (11.5-15.5) % Plt Count (150-450) k/uL Neutrophils # (1.3-7.7) k/uL Lymphocytes # (1.0-4.8) k/uL ABG pH 7.31 L (7.35-7.45) ABG pCO2 51 H (35-45) mmHg ABG pO2 76 L (83-108) mmHg ABG HCO3 26 H (21-25) mmol/L ABG Total CO2 28 H (19-24) mmol/L ABG O2 Saturation 93.9 L (94-97) % ABG Hematocrit 24 L (34.0-46.0) % Hemoglobin 7.8 L (13.0-17.5) gm/dL BUN 47 H (9-20) mg/dL Creatinine 3.48 H (0.66-1.25) mg/dL Glucose 159 H (74-99) mg/dL POC Glucose (mg/dL) (70-110) mg/dL Calcium 7.4 L (8.4-10.2) mg/dL Phosphorus 6.5 H (2.5-4.5) mg/dL AST 14 L (17-59) U/L Total Protein 4.5 L (6.3-8.2) g/dL Albumin 2.0 L (3.5-5.0) g/dL 02/19/22 02/19/22 Range/Units 06:24 11:48 RBC (4.30-5.90) m/uL Hgb (13.0-17.5) gm/dL Hct (39.0-53.0) % MCHC (31.0-37.0) g/dL RDW (11.5-15.5) % Plt Count (150-450) k/uL Neutrophils # (1.3-7.7) k/uL Lymphocytes # (1.0-4.8) k/uL ABG pH (7.35-7.45) ABG pCO2 (35-45) mmHg ABG pO2 (83-108) mmHg ABG HCO3 (21-25) mmol/L ABG Total CO2 (19-24) mmol/L ABG O2 Saturation (94-97) % ABG Hematocrit (34.0-46.0) % Hemoglobin (13.0-17.5) gm/dL BUN (9-20) mg/dL Creatinine (0.66-1.25) mg/dL Glucose (74-99) mg/dL POC Glucose (mg/dL) 163 H 154 H (70-110) mg/dL Calcium (8.4-10.2) mg/dL Phosphorus (2.5-4.5) mg/dL AST (17-59) U/L Total Protein (6.3-8.2) g/dL Albumin (3.5-5.0) g/dL Microbiology - Last 24 Hours (Table) 02/15/22 06:05 Blood Culture - Preliminary Blood No Growth after 96 hours 02/14/22 04:33 Blood Culture - Preliminary Blood No Growth after 120 hours Assessment and Plan (1) Upper GI bleed Narrative/Plan: Patient seems to be gradually improving. Continue ventilatory support. Continue tube feeds at goal. Continue stool softeners. We'll follow. Current Visit: Yes Status: Acute Code(s): K92.2 - GASTROINTESTINAL HEMORRHAGE, UNSPECIFIED SNOMED Code(s): 88332287
--- NOTE | 2022-02-19 16:10 | P.PN ---
Subjective Progress Note Date: 02/17/22 Principal diagnosis: Right foot infected pressure ulcer and bacteremia Patient is a 61-year-old male presented to the hospital for evaluation of fall patient also noticed to have a wound on the right lateral foot with some necrotic edges which has been debridement by vascular surgery on 01/31/2022.Patient has been transthoracic because of significant mental status changes, The patient ended up getting intubated, the patient also have worsening of the kidney function requiring dialysis catheter placement and has been started on dialysis as of 02/09/2022, the patient did have a PEG tube placement on 02/12/2022 And the patient is scheduled for tracheostomy this evening On today's evaluation that is 02/17/2022, The patient remains to be afebrile, , The patient FiO2 is up to 60%, however no significant purulent secretion through the ET has been reported by the nursing staff has been tolerating his tube feed no vomiting or diarrhea was reported by the nursing staff Objective - Vital Signs Vital signs: Vital Signs Temp 98.2 F 02/17/22 08:00 Pulse 108 H 02/17/22 11:52 Resp 24 02/17/22 10:15 BP 113/64 02/17/22 10:15 Pulse Ox 91 L 02/17/22 10:15 FiO2 40 02/17/22 11:38 Intake & Output 02/16/22 02/17/22 02/17/22 18:59 06:59 18:59 Intake Total 771.772 872.544 254.569 Output Total 3255 160 40 Balance -2483.228 712.544 214.569 Weight 156.5 kg 154 kg Intake: IV 496 361.0 72 0.9% Sodium Chloride @ 110 175 60 10mls/hr Anidulafungin 100 mg In 100 Sodium Chloride 0.9% 100 ml @ 84 mls/hr IVPB DAILY [facility] Rx#:[id number] Cefepime 1 gm In Sodium 50 50.0 Chloride 0.9% 50 ml @ 12. 5 mls/hr IVPB Q12HR [facility] Rx#:[id number] Pressure bags 36 36 12 levETIRAcetam IV 500 mg 100 In Sodium Chloride 0.9% 100 ml @ 400 mls/hr IVPB DAILY [facility] Rx#:[id number] metroNIDAZOLE-NS PMX 500 100 100 mg In Saline 1 100ml.bag @ 100 mls/hr IVPB Q8HR [facility] Rx#:[id number] Intake, IV Titration 217.772 68.544 182.569 Amount Norepinephrine 32 mg In 41.068 182.569 Sodium Chloride 0.9% 218 ml @ 0.05 MCG/KG/MIN 3. 246 mls/hr IV .Q24H [facility] Rx#:[id number] propofoL 1,000 mg In 176.704 68.544 Empty Bag 1 bag @ 5 MCG/ KG/MIN 4.08 mls/hr IV . Q24H [facility] Rx#:[id number] Tube Feeding 58 383 Other 60 Output: Urine 255 160 40 Hemodialysis 3000 Other: Voiding Method Indwelling Catheter Indwelling Catheter Indwelling Catheter ABP, PAP, CO, CI - Last Documented Arterial Blood Pressure 107/47 - Exam GENERAL DESCRIPTION: Middle-aged male intubated on the vent. LUNGS: Unlabored breathing. Decreased breath sound at the base HEART: S1, S2, regular rate and rhythm. No loud murmur ABDOMEN: Soft, no tenderness , guarding or rigidity, no organomegaly EXTREMITIES: Right foot wound is currently dressed no drainage on the dressing - Labs CBC & Chem 7: 02/19/22 05:20 02/19/22 05:20 Labs: Abnormal Lab Results - Last 24 Hours (Table) 02/16/22 02/17/22 02/17/22 Range/Units 20:28 00:10 03:52 WBC 14.5 H (3.8-10.6) k/uL RBC 3.06 L (4.30-5.90) m/uL Hgb 8.9 L (13.0-17.5) gm/dL Hct 28.5 L (39.0-53.0) % RDW 19.0 H (11.5-15.5) % Plt Count 98 L (150-450) k/uL ABG pO2 (83-108) mmHg ABG Total CO2 (19-24) mmol/L ABG Hematocrit (34.0-46.0) % Hemoglobin (13.0-17.5) gm/dL Sodium (137-145) mmol/L Chloride (98-107) mmol/L BUN (9-20) mg/dL Creatinine (0.66-1.25) mg/dL Glucose (74-99) mg/dL POC Glucose (mg/dL) 137 H 168 H (70-110) mg/dL Calcium (8.4-10.2) mg/dL AST (17-59) U/L Total Protein (6.3-8.2) g/dL Albumin (3.5-5.0) g/dL 02/17/22 02/17/22 02/17/22 Range/Units 03:52 05:23 05:37 WBC (3.8-10.6) k/uL RBC (4.30-5.90) m/uL Hgb (13.0-17.5) gm/dL Hct (39.0-53.0) % RDW (11.5-15.5) % Plt Count (150-450) k/uL ABG pO2 77 L (83-108) mmHg ABG Total CO2 26 H (19-24) mmol/L ABG Hematocrit 26 L (34.0-46.0) % Hemoglobin 8.6 L (13.0-17.5) gm/dL Sodium 135 L (137-145) mmol/L Chloride 97 L (98-107) mmol/L BUN 61 H (9-20) mg/dL Creatinine 4.55 H (0.66-1.25) mg/dL Glucose 148 H (74-99) mg/dL POC Glucose (mg/dL) 147 H (70-110) mg/dL Calcium 7.6 L (8.4-10.2) mg/dL AST 16 L (17-59) U/L Total Protein 4.6 L (6.3-8.2) g/dL Albumin 2.0 L (3.5-5.0) g/dL Microbiology - Last 24 Hours (Table) 01/31/22 06:45 Anaerobic Culture - Final Ankle - Right Lynda albicans 02/15/22 06:05 Blood Culture - Preliminary Blood No Growth after 48 hours 02/14/22 04:33 Blood Culture - Preliminary Blood No Growth after 72 hours Assessment and Plan (1) Cellulitis Current Visit: Yes Status: Acute Code(s): L03.90 - CELLULITIS, UNSPECIFIED SNOMED Code(s): 467780689 Plan: 1patient with right foot unstageable pressure ulcer with surrounding necrotic area and cellulitis x-rays do not show any bony changes likely from gram- positive skin caleb and less likely gram-negative pathogen, patient is status post vascular surgery evaluation and debridement and deep cultureWhich has been finalized with strep and MSSA. 2-patient with MSSA bacteremia source is likely right foot infected pressure ulcer, Repeat blood culture has been negative 3Patient did have significant abnormality seen on the CT obtained by surgery with concern for possible fecal impaction and some inflammation of the colon and possible fistula which has been ruled out by general surgery. 4- patient sputum has been finalized with stenotrophomonas sensitive to Fortaz and should be covered with cefepime also showing Lynda albicans and possible component of oropharyngeal candidiasis, 5- patient is afebrile white count has normalized, Pt to continue with Eraxis and cefepime, and monitor clinical course closely Time with Patient: Less than 30
--- NOTE | 2022-02-19 16:12 | P.PN ---
Subjective Progress Note Date: 02/18/22 Principal diagnosis: Right foot infected pressure ulcer and bacteremia Patient is a 61-year-old male presented to the hospital for evaluation of fall patient also noticed to have a wound on the right lateral foot with some necrotic edges which has been debridement by vascular surgery on 01/31/2022.Patient has been transthoracic because of significant mental status changes, The patient ended up getting intubated, the patient also have worsening of the kidney function requiring dialysis catheter placement and has been started on dialysis as of 02/09/2022, the patient did have a PEG tube placement on 02/12/2022 , The patient is s/p tracheostomy completed on 02/17/2022 On today's evaluation that is 02/18/2022, , The patient continues to be afebrile, the patient FiO2 is stable at 60% no significant purulent secretion through the ET diarrhea or any other changes were reported by the nursing staff Objective - Vital Signs Vital signs: Vital Signs Temp 98.9 F 02/18/22 12:00 Pulse 107 H 02/18/22 12:00 Resp 19 02/18/22 12:00 BP 138/76 02/18/22 11:00 Pulse Ox 96 02/18/22 12:00 FiO2 40 02/18/22 12:00 Intake & Output 02/17/22 02/18/22 02/18/22 18:59 06:59 18:59 Intake Total 107.189 6684.363 861.969 Output Total 2120 150 80 Balance -2575.139 0958.363 781.969 Weight 153.4 kg 153.4 kg Intake: IV 263 276 319 0.9% Sodium Chloride @ 130 120 60 10mls/hr Anidulafungin 100 mg In 100 Sodium Chloride 0.9% 100 ml @ 84 mls/hr IVPB DAILY [facility] Rx#:[id number] Cefepime 1 gm In Sodium 50 50 Chloride 0.9% 50 ml @ 12. 5 mls/hr IVPB Q12HR [facility] Rx#:[id number] Pressure bags 33 6 9 levETIRAcetam IV 500 mg 100 In Sodium Chloride 0.9% 100 ml @ 400 mls/hr IVPB DAILY [facility] Rx#:[id number] metroNIDAZOLE-NS PMX 500 100 mg In Saline 1 100ml.bag @ 100 mls/hr IVPB Q8HR [facility] Rx#:[id number] Intake, IV Titration 182.569 326.363 152.969 Amount Norepinephrine 32 mg In 182.569 26.363 76.809 Sodium Chloride 0.9% 218 ml @ 0.05 MCG/KG/MIN 3. 246 mls/hr IV .Q24H [facility] Rx#:[id number] propofoL 1,000 mg In 300 76.16 Empty Bag 1 bag @ 5 MCG/ KG/MIN 4.08 mls/hr IV . Q24H [facility] Rx#:[id number] Tube Feeding 715 390 Hemodialysis 300 Other 90 Output: Urine 115 150 80 Hemodialysis 2000 Estimated Blood Loss 5 Other: Voiding Method Indwelling Catheter Indwelling Catheter ABP, PAP, CO, CI - Last Documented Arterial Blood Pressure 133/56 - Exam GENERAL DESCRIPTION: Middle-aged male intubated Through the trach LUNGS: Unlabored breathing. Decreased breath sound at the base HEART: S1, S2, regular rate and rhythm. ABDOMEN: Soft, no tenderness , guarding or rigidity, no organomegaly EXTREMITIES: Right foot wound is currently dressed no drainage on the dressing - Labs CBC & Chem 7: 02/19/22 05:20 02/19/22 05:20 Labs: Abnormal Lab Results - Last 24 Hours (Table) 02/18/22 02/18/22 02/18/22 Range/Units 05:52 06:10 06:10 RBC 2.86 L (4.30-5.90) m/uL Hgb 8.4 L (13.0-17.5) gm/dL Hct 26.9 L (39.0-53.0) % RDW 19.4 H (11.5-15.5) % Plt Count 88 L (150-450) k/uL ABG pO2 75 L (83-108) mmHg ABG HCO3 26 H (21-25) mmol/L ABG Total CO2 28 H (19-24) mmol/L ABG Hematocrit 26 L (34.0-46.0) % Hemoglobin 8.4 L (13.0-17.5) gm/dL Sodium 136 L (137-145) mmol/L BUN 50 H (9-20) mg/dL Creatinine 3.78 H (0.66-1.25) mg/dL Glucose 115 H (74-99) mg/dL POC Glucose (mg/dL) (70-110) mg/dL Calcium 7.2 L (8.4-10.2) mg/dL AST 15 L (17-59) U/L Total Protein 4.3 L (6.3-8.2) g/dL Albumin 1.9 L (3.5-5.0) g/dL 02/18/22 02/18/22 Range/Units 06:10 11:19 RBC (4.30-5.90) m/uL Hgb (13.0-17.5) gm/dL Hct (39.0-53.0) % RDW (11.5-15.5) % Plt Count (150-450) k/uL ABG pO2 (83-108) mmHg ABG HCO3 (21-25) mmol/L ABG Total CO2 (19-24) mmol/L ABG Hematocrit (34.0-46.0) % Hemoglobin (13.0-17.5) gm/dL Sodium (137-145) mmol/L BUN (9-20) mg/dL Creatinine (0.66-1.25) mg/dL Glucose (74-99) mg/dL POC Glucose (mg/dL) 128 H 127 H (70-110) mg/dL Calcium (8.4-10.2) mg/dL AST (17-59) U/L Total Protein (6.3-8.2) g/dL Albumin (3.5-5.0) g/dL Microbiology - Last 24 Hours (Table) 02/15/22 06:05 Blood Culture - Preliminary Blood No Growth after 72 hours 02/14/22 04:33 Blood Culture - Preliminary Blood No Growth after 96 hours 01/31/22 06:45 Anaerobic Culture - Final Ankle - Right Lynda albicans Assessment and Plan (1) Cellulitis Current Visit: Yes Status: Acute Code(s): L03.90 - CELLULITIS, UNSPECIFIED SNOMED Code(s): 140360456 Plan: 1patient with right foot unstageable pressure ulcer with surrounding necrotic area and cellulitis x-rays do not show any bony changes likely from gram- positive skin caleb and less likely gram-negative pathogen, patient is status post vascular surgery evaluation and debridement and deep cultureWhich has been finalized with strep and MSSA. 2-patient with MSSA bacteremia source is likely right foot infected pressure ulcer, Repeat blood culture has been negative 3Patient did have significant abnormality seen on the CT obtained by surgery with concern for possible fecal impaction and some inflammation of the colon and possible fistula which has been ruled out by general surgery. 4- patient sputum has been finalized with stenotrophomonas sensitive to Fortaz and should be covered with cefepime also showing Lynda albicans and possible component of oropharyngeal candidiasis, 5-Patient did have a stage II pressure ulcer to the sacral area with no cellulitis local wound care with a dry Aquacel silver dressing. 6patient to continue with the cefepime and Eraxis and continue to monitor clinical course closely Time with Patient: Less than 30
--- NOTE | 2022-02-19 16:15 | P.PN ---
Subjective Progress Note Date: 02/19/22 Principal diagnosis: Right foot infected pressure ulcer and bacteremia Patient is a 61-year-old male presented to the hospital for evaluation of fall patient also noticed to have a wound on the right lateral foot with some necrotic edges which has been debridement by vascular surgery on 01/31/2022.Patient has been transthoracic because of significant mental status changes, The patient ended up getting intubated, the patient also have worsening of the kidney function requiring dialysis catheter placement and has been started on dialysis as of 02/09/2022, the patient did have a PEG tube placement on 02/12/2022 , The patient is s/p tracheostomy completed on 02/17/2022 On today's evaluation that is 02/19/2022, The patient remains to be afebrile the patient is still requiring 60% FiO2 to maintain his sats patient is hemodynamically stable has been tolerating his tube feeds and no diarrhea or any other changes were reported by the nursing staff Objective - Vital Signs Vital signs: Vital Signs Temp 98.7 F 02/19/22 08:00 Pulse 108 H 02/19/22 11:00 Resp 21 02/19/22 11:00 BP 117/59 02/19/22 11:00 Pulse Ox 95 02/19/22 11:00 FiO2 60 02/19/22 10:41 Intake & Output 02/18/22 02/19/22 02/19/22 18:59 06:59 18:59 Intake Total 3601.300 3263 770 Output Total 2670 155 5 Balance -1583.537 7053 765 Weight 153.4 kg 158 kg Intake: IV 397 306 415 0.9% Sodium Chloride @ 120 120 50 10mls/hr Anidulafungin 100 mg In 100 100 Sodium Chloride 0.9% 100 ml @ 84 mls/hr IVPB DAILY [facility] Rx#:[id number] Cefepime 1 gm In Sodium 50 50 50 Chloride 0.9% 50 ml @ 12. 5 mls/hr IVPB Q12HR [facility] Rx#:[id number] Pressure bags 27 36 15 levETIRAcetam IV 500 mg 100 100 In Sodium Chloride 0.9% 100 ml @ 400 mls/hr IVPB DAILY [facility] Rx#:[id number] metroNIDAZOLE-NS PMX 500 100 100 mg In Saline 1 100ml.bag @ 100 mls/hr IVPB Q8HR [facility] Rx#:[id number] Intake, IV Titration 152.969 Amount Norepinephrine 32 mg In 76.809 Sodium Chloride 0.9% 218 ml @ 0.05 MCG/KG/MIN 3. 246 mls/hr IV .Q24H [facility] Rx#:[id number] propofoL 1,000 mg In 76.16 Empty Bag 1 bag @ 5 MCG/ KG/MIN 4.08 mls/hr IV . Q24H [facility] Rx#:[id number] Tube Feeding 780 780 325 Other 90 30 Output: Urine 170 155 5 Hemodialysis 2500 Other: Voiding Method Indwelling Catheter Indwelling Catheter Indwelling Catheter ABP, PAP, CO, CI - Last Documented Arterial Blood Pressure 105/47 - Exam GENERAL DESCRIPTION: Middle-aged male intubated Through the trach LUNGS: Unlabored breathing. Decreased breath sound at the base HEART: S1, S2, regular rate and rhythm. ABDOMEN: Soft, no tenderness , guarding or rigidity, no organomegaly EXTREMITIES: Right foot wound is currently dressed no drainage on the dressing - Labs CBC & Chem 7: 02/19/22 05:20 02/19/22 05:20 Labs: Abnormal Lab Results - Last 24 Hours (Table) 02/18/22 02/19/22 02/19/22 Range/Units 18:07 00:19 05:20 RBC 2.74 L (4.30-5.90) m/uL Hgb 8.0 L (13.0-17.5) gm/dL Hct 26.9 L (39.0-53.0) % MCHC 29.8 L (31.0-37.0) g/dL RDW 20.1 H (11.5-15.5) % Plt Count 88 L (150-450) k/uL Neutrophils # 8.9 H (1.3-7.7) k/uL Lymphocytes # 0.7 L (1.0-4.8) k/uL ABG pH (7.35-7.45) ABG pCO2 (35-45) mmHg ABG pO2 (83-108) mmHg ABG HCO3 (21-25) mmol/L ABG Total CO2 (19-24) mmol/L ABG O2 Saturation (94-97) % ABG Hematocrit (34.0-46.0) % Hemoglobin (13.0-17.5) gm/dL BUN (9-20) mg/dL Creatinine (0.66-1.25) mg/dL Glucose (74-99) mg/dL POC Glucose (mg/dL) 145 H 137 H (70-110) mg/dL Calcium (8.4-10.2) mg/dL AST (17-59) U/L Total Protein (6.3-8.2) g/dL Albumin (3.5-5.0) g/dL 02/19/22 02/19/22 02/19/22 Range/Units 05:20 06:01 06:24 RBC (4.30-5.90) m/uL Hgb (13.0-17.5) gm/dL Hct (39.0-53.0) % MCHC (31.0-37.0) g/dL RDW (11.5-15.5) % Plt Count (150-450) k/uL Neutrophils # (1.3-7.7) k/uL Lymphocytes # (1.0-4.8) k/uL ABG pH 7.31 L (7.35-7.45) ABG pCO2 51 H (35-45) mmHg ABG pO2 76 L (83-108) mmHg ABG HCO3 26 H (21-25) mmol/L ABG Total CO2 28 H (19-24) mmol/L ABG O2 Saturation 93.9 L (94-97) % ABG Hematocrit 24 L (34.0-46.0) % Hemoglobin 7.8 L (13.0-17.5) gm/dL BUN 47 H (9-20) mg/dL Creatinine 3.48 H (0.66-1.25) mg/dL Glucose 159 H (74-99) mg/dL POC Glucose (mg/dL) 163 H (70-110) mg/dL Calcium 7.4 L (8.4-10.2) mg/dL AST 14 L (17-59) U/L Total Protein 4.5 L (6.3-8.2) g/dL Albumin 2.0 L (3.5-5.0) g/dL Microbiology - Last 24 Hours (Table) 02/15/22 06:05 Blood Culture - Preliminary Blood No Growth after 96 hours 02/14/22 04:33 Blood Culture - Preliminary Blood No Growth after 120 hours Assessment and Plan (1) Cellulitis Current Visit: Yes Status: Acute Code(s): L03.90 - CELLULITIS, UNSPECIFIED SNOMED Code(s): 131173819 Plan: 1patient with right foot unstageable pressure ulcer with surrounding necrotic area and cellulitis On admission,x-rays do not show any bony changes likely from gram-positive skin caleb and less likely gram-negative pathogen, patient is status post vascular surgery evaluation and debridement and deep cultureWhich has been finalized with strep and MSSA. 2-patient with MSSA bacteremia source is likely right foot infected pressure ulcer, Repeat blood culture has been negative 3Patient did have significant abnormality seen on the CT obtained by surgery with concern for possible fecal impaction and some inflammation of the colon and possible fistula which has been ruled out by general surgery. 4- patient sputum has been finalized with stenotrophomonas sensitive to Fortaz and sputum with Lynda albicans concern for component of oropharyngeal candidiasis, 5-Patient did have a stage II pressure ulcer to the sacral area with no cellulitis local wound care with a dry Aquacel silver dressing. 6patient to continue with the cefepime Which should cover for both the MSSA as well as stenotrophomonas and Eraxis Will cover for the oropharyngeal candidiasis Time with Patient: Less than 30
--- NOTE | 2022-02-19 17:35 | CT ---
EXAMINATION TYPE: CT ChestAbdPelvis wo con CT DLP: 2807.8 mGycm, Automated exposure control for dose reduction was used. DATE OF EXAM: 02/19/2022 5:18 PM COMPARISON:Chest radiograph from same day. CLINICAL INDICATION:Male, 61 years old with history of resp failure; PHH, ams, resp failure Technique: Multiple axial images of the chest, abdomen, and pelvis were obtained without administrati on intravenous contrast. Two-dimensional coronal and sagittal reconstructions were obtained. Findings: Limited examination due to lack of IV contrast and motion artifact. CHEST: LUNGS/ PLEURA: Moderate left pleural effusion with associated atelectasis. Near complete atelectasis of the right lung with moderate to large right pleural effusion. AIRWAY: Tracheostomy cannula is in place. HEART: Mildly prominent size. Trace pericardial effusion.. MEDIASTINUM: No gross evidence of adenopathy. VASCULATURE: No aortic aneurysm. Enlarged main pulmonary artery measuring up to 4.2 cm in diameter. Right IJ central venous catheter terminates at the superior cavoatrial junction. MUSCULOSKELETAL: Mildly displaced healing right lateral eighth, ninth, and 10th rib fractures. SOFT TISSUES/LYMPH NODES: Diffuse anasarca. No axillary adenopathy. LOWER NECK: No significant findings. ABDOMEN: ABDOMEN LIVER: Subtle suggested nodularity of the liver with widened fissures. GALLBLADDER AND BILE DUCTS: Mildly distended gallbladder with hyperdense material identified. Evaluat ion is limited due to motion artifact. No biliary ductal dilatation. PANCREAS: Unremarkable noncontrast appearance. SPLEEN: Unremarkable noncontrast appearance. ADRENAL GLANDS: Unremarkable noncontrast appearance. KIDNEYS AND URETERS: No hydronephrosis. Right calculi demonstrated within the renal pelvis abutting 8 other measuring 8 and 5 mm. Mild nonspecific bilateral perinephric fat stranding. PELVIS BLADDER: Nondistended with Shepard catheter in place. Nondependent gas likely from catheter placement. REPRODUCTIVE: Unremarkable. ABDOMEN & PELVIS STOMACH AND BOWEL: Stomach and duodenum are unremarkable. Mild gaseous and stool distended large braden l. Normal caliber small bowel. Appendix is poorly visualized due to motion artifact. No evidence of b owel obstruction. PERITONEUM: No evidence of pneumoperitoneum. Small amount of free fluid throughout the abdomen and pe lvis. VASCULATURE: No evidence of aortic aneurysm. Right femoral approach central venous catheter identifie d with tip terminating just before the bifurcation. Pelvic phleboliths. MUSCULOSKELETAL: Multilevel degenerative changes of visualized spine. Age-indeterminate anterior wedg e compression deformity of the L1 vertebral body involving the anterior superior endplates with appro ximately 20% height loss and no retropulsion. There is sclerosis identified. LYMPH NODES: No gross evidence for lymphadenopathy. SOFT TISSUE/ABDOMINAL WALL: Diffuse anasarca. PEG tube identified in appropriate position. IMPRESSION: Limited examination due to motion artifact and lack of IV contrast. 1. Near complete opacification and atelectasis of the right lung with moderate to large right pleural effusion. Moderate left pleural effusion. 2. Diffuse anasarca with small volume ascites. 3. Subtle nodularity widening of the fissures of the liver suspicious for cirrhosis. Correlation with liver function tests is recommended. 4. 2 renal calculi abutting each other in the right renal pelvis without evidence of hydronephrosis. 5. Mildly distended hyperattenuating gallbladder. This may related to vicarious excretion of contrast versus cholelithiasis. If there is concern for cholecystitis, consider abdominal ultrasound. 6. Healing right-sided rib fractures with age indeterminant L1 vertebral body compression deformity a s described above. Correlate with point tenderness. 7. Dilated main pulmonary artery which can be seen in the setting of pulmonary arterial hypertension.
[2022-02-19 18:11] LABS: Glucose,Whole Blood 173 mg/dL (70-110)
[2022-02-19] MEDS: INSULIN DETEMIR (LEVEMIR) 100 UNIT/ML SYR SQ SCH (20:33)
[2022-02-20 01:47] LABS: Glucose,Whole Blood 177 mg/dL (70-110)
[2022-02-20] MEDS: INSULIN ASPART (NovoLOG) 100 UNIT/ML VIAL SQ SCH ×4 (01:48→18:02)
[2022-02-20 05:19] LABS: ALT <6 U/L (4-49); AST 12 U/L (17-59); African American GFR (CKD) 23 (>60 ml/min/1.73 sqM); Alkaline Phosphatase 107 U/L (38-126); Anion Gap 14 mmol/L; Blood Urea Nitrogen 44 mg/dL (9-20); Calcium 7.5 mg/dL (8.4-10.2); Carbon Dioxide 22 mmol/L (22-30); Chloride 101 mmol/L (98-107); Glucose 157 mg/dL (74-99); Non-African American GFR(CKD) 20 (>60 ml/min/1.73 sqM); Sodium 137 mmol/L (137-145); Total Bilirubin 0.6 mg/dL (0.2-1.3); Total Protein 4.5 g/dL (6.3-8.2)
[2022-02-20 05:21] LABS: Anisocytosis Moderate; HCT 24.1 % (39.0-53.0); HGB 7.2 gm/dL (13.0-17.5); Hypochromasia Marked; MCH 28.8 pg (25.0-35.0); MCHC 29.8 g/dL (31.0-37.0); MCV 96.6 fL (80.0-100.0); Macrocytosis Slight; Mean Platelet Volume 10.6; RBC 2.49 m/uL (4.30-5.90); WBC 10.5 k/uL (3.8-10.6)
[2022-02-20 05:26] LABS: Platelet Count 90 k/uL (150-450)
[2022-02-20 05:50] LABS: ABG HCO3 25 mmol/L (21-25); ABG Oxygen Saturation 95.4 % (94-97); ABG PCO2 51 mmHg (35-45); ABG PH 7.31 (7.35-7.45); ABG PO2 80 mmHg (83-108); ABG TCO2 27 mmol/L (19-24)
[2022-02-20 05:57] LABS: Allen Test Performed? No
[2022-02-20 06:41] LABS: Glucose,Whole Blood 156 mg/dL (70-110)
[2022-02-20] MEDS: CALCIUM ACETATE 667 MG TAB PO SCH ×2 (06:45→17:45)
[2022-02-20] MEDS: IPRATROPIUM-ALBUTEROL 3 ML NEB INHALATION SCH ×4 (07:32→20:39)
[2022-02-20] MEDS: BUDESONIDE 1 MG/2 ML NEBU INHALATION SCH ×2 (07:32→20:40)
[2022-02-20] MEDS: METOPROLOL TARTRATE 25 MG TAB PO SCH ×2 (09:09→20:33)
[2022-02-20] MEDS: AMIODARONE 200 MG TAB PO SCH ×2 (09:09→20:33)
[2022-02-20] MEDS: bisacodyL 10 MG SUPP RECTAL SCH (09:09)
[2022-02-20] MEDS: CHLORHEXIDINE GLUCONATE 15 ML CUP MUCOUS MEM SCH ×2 (09:09→20:33)
[2022-02-20] MEDS: APIXABAN 2.5 MG TABLET PO SCH ×2 (09:09→20:33)
[2022-02-20] MEDS: LACTULOSE 20 GM/30 ML CUP PO SCH ×2 (09:09→20:33)
[2022-02-20] MEDS: levETIRAcetam 250 MG TAB PO SCH (09:10)
[2022-02-20] MEDS: TORSEMIDE 20 MG TAB PO SCH (09:10)
[2022-02-20] MEDS: metroNIDAZOLE-NS PMX 500 MG in SALINE 1 100ML.BAG IVPB SCH ×3 (09:10→23:37)
[2022-02-20] MEDS: ANIDULAFUNGIN 100 MG in SODIUM CHLORIDE 0.9% 100 ML IVPB SCH (09:12)
[2022-02-20] MEDS: CEFEPIME 1 GM in SODIUM CHLORIDE 0.9% 50 ML IVPB SCH ×2 (09:16→21:12)
[2022-02-20] MEDS: PANTOPRAZOLE 40 MG/10 ML VIAL IVP SCH ×2 (09:20→20:32)
[2022-02-20] MEDS: PREGABALIN 100 MG CAP PO SCH ×2 (09:20→20:33)
[2022-02-20] MEDS: COLLAGENASE 250 UNIT/GM OINTMENT 30 GM TUBE TOPICAL SCH (09:20)
--- NOTE | 2022-02-20 09:20 | XR ---
EXAMINATION TYPE: XR chest 1V portable DATE OF EXAM: 02/20/2022 6:11 AM COMPARISON: Chest radiographs from 02/19/2022, CT chest abdomen pelvis 02/19/2022 TECHNIQUE: XR chest 1V portable Frontal view of the chest. CLINICAL INDICATION:Male, 61 years old with history of pleural effusion; FINDINGS: Limited examination due to patient rotation. Gas May 2 overlies the tracheal column. Right subclavian central venous catheter is in stable positio n overlying the superior cavoatrial junction. Near complete opacification of the right lung redemonst rated. Left basilar patchy airspace disease redemonstrated. Prominence of the pulmonary artery. No pn eumothorax. IMPRESSION: 1. Near complete opacification of the right lung again consistent with moderate to large right pleur al effusion with atelectasis demonstrated on CT yesterday. 2. Left basilar airspace opacities which may represent pulmonary edema versus atelectasis versus inf ectious process.
--- NOTE | 2022-02-20 10:21 | P.PN ---
Subjective Progress Note Date: 02/20/22 This is a extremely debilitated 61-year-old male patient who was admitted to the hospital on 01/31/2022 because of a fall and limited hemoptysis. The patient is known to have a combination of issues including diabetes mellitus and diabetic peripheral neuropathy and the patient has had previous episodes of falls and he has issues with chronic atrial flutter maintained on long-term anticoagulation with warfarin. He is morbidly obese. He has hypertension and hyperlipidemia as comorbid conditions along with chronic kidney disease. He is morbidly obese. He has history of COPD and is a chronic smoker. He comes in to the hospital after he had a fall at home. He was the bathroom and he slept and he landed on his left chest. Here in the hospital, the patient was found to be Coumadin toxic and his INR was above 10. He did have some limited hemoptysis and coffee-ground emesis without any melanotic stools. No abdominal pain. He was noted to have a large ulcer over the right ankle/malleolus area which is a chronic wound. Immediately the patient was given vitamin K. This computed tomography scan of the chest shows some right lateral eighth through 10th rib fractures with trace amount of right-sided pleural effusion and right basilar atelectasis related to underlying pulmonary contusion. No evidence of any pneumothorax. Some limited patchy airspace disease in the left upper lobe probably inflammatory in the same time the patient had dilated pulmonary arteries indicating possibility of pulmonary hypertension and a fluid and gas- filled distended stomach. I noted the patient has not had a CAT scan of the brain and a CAT scan was done that showed no acute intracranial process. There was a remote left occipital lobe injury along with some nonspecific white matter changes secondary to chronic microangiopathy. This computed tomography scan of the lumbar spine showed acute anterior wedge compression deformity of L1 vertebral body with a 30% loss in height along with multilevel degenerative disc changes and a 7 mm In the right pelvis. Patient was already seen by general surgery and orthopedic surgery. Lumbar spine x-ray that was done on 2021 showed no acute fracture. The patient was also seen by vascular surgery for a right lateral foot wound and this is a stage II wound 8.5 x 4 cm in size. Debridement was done by vascular surgery. On 02/16/2022, I'm seeing the patient for a follow-up. I saw this patient initially at time of admission and the patient had a prolonged hospitalization related to his comorbid conditions and the patient was ultimately intubated and placed on a mechanical ventilator and the plan is for today to proceed with a tracheostomy tube insertion as the patient had prolonged respiratory failure. This morning, the patient is sedated and the patient is receiving propofol at a rate of 20 mcg/kg per minute and is quite successful mechanical ventilator. He is on assist-control mode of mechanical ventilation at the rate of 24 with a tidal volume of 500 and FiO2 of 40% and a PEEP of 5. Blood gases from today shows a pH of 7.41 with a pCO2 of 40 and pO2 of 75 and the most recent chest x- ray showed a large right-sided pleural effusion in addition to left-sided pleural effusion. The right lung was also consolidated and there was some volume loss and underlying pneumonia cannot be completely excluded. The most recent blood cultures have been negative. Sputum culture was positive for stenotrophomonas and the patient was covered with appropriate antibiotics and currently remains on IV cefepime that was originally started on 02/06/2022. I also noted that the patient is on a combination of Flagyl and he is taken also Eraxis per IDs recommendation. Note that in addition to pneumonia, the patient has right foot unstageable pressure ulcer with surrounding necrosis and cellulitis and there was no underlying osteomyelitis based on the x-ray. Patient is post debridement and a the wound culture showed a combination of MSSA and strep agalactiae. There was also Lynda that was identified and the patient's sputum and due to concerns of ongoing infection ID elected to put him on Eraxis and the patient's white cell count is gradually improved from as high as 26.5 down to 12.9 today. Hemodynamically, he is on pressors and the patient is requiring norepinephrine at a dose of 0.07 mcg/kg per minute. IV fluids are at KVO and the patient has significant amount of third spacing and edema in all 4 extremities more so in the upper extremities. He is receiving hemodialysis. Last hemodialysis session was on 02/14/2022 and the patient had a total of 2 L of ultrafiltration. Prior to that, and another liter was taken off on 02/12/2022. On today's blood work, the patient's white cell count of 12.9 with hemoglobin 8.7 and a platelet count of 106. Patient has sodium level of 134, BUN is 66 and creatinine is 4.6 and the rest of the electrodes are stable and the patient's serum bicarbs at 23. Albumin level is down to 1.9 with a total protein of 4.4. In terms of enteral feeding, the patient is receiving vital h igh protein and the currently the 2 feedings are on hold as the patient is going to undergo a tracheostomy tube insertion. He does have a arterial line catheter in his right upper extremity and the patient also has a right labia and triple- lumen catheter in place. Urine output is marginal in the order of 10-20 mL an hour. In the neck fluid balance has been +1.9 L over the past 24 hours. He is currently on the sinus rhythm. Anticoagulation is on hold as the patient is going to undergo a tracheostomy tube insertion. INR today is at 1.1. 02/17/2022, the patient is being seen for a follow-up. The patient is still intubated on a mechanical ventilator. He did not have his tracheostomy tube insertion yesterday due to scheduling problems. This morning, the patient remains sedated and the patient is on propofol running at 15 mcg/kg per minute. He is successful mechanical ventilator and he is arranging an assist-control mode at the rate of 24 with a tidal volume of 500 and FiO2 of 40% with a PEEP of 5. The blood gases from today showing a pH of 7.39 with a pCO2 of 41 and pO2 of 77. The FiO2 was at 40%. The chest x-ray from today is showing shows adequate positioning of the orotracheal tube. The patient also has large bilateral pleural effusions as mentioned yesterday and there is no major interval change compared to yesterday. Noted the patient underwent hemodialysis yesterday and he had an ultrafiltration of 3 L of fluid. His sputum was also positive for stenotrophomonas and the patient is covered with IV cefepime the pathology started on 02/07/2020 and he continues to be on the same antibiotics for now. He remains also on IV Eraxis and Flagyl per IDs recommendations. No significant orotracheal secretions. His symptoms the mechanical ventilator. Pulse ox dre und 94%. Awaiting a tracheostomy tube insertion today. He does have a unstageable wound in his coccyx area and the patient has a wound in his right ankle that was incised and drained and the cultures showed MSSA and strep agalactiae. ID is on the case for antibiotic management. In terms of hemod ynamics, the patient remains on IV fluids at KVO. He has there are no dose of norepinephrine running at 0.03 mcg/kg per minute. Urine output is minimal at this point in time and order of 15-20 mL an hour. In terms of his blood work from today, the patient has a white cell count of 14.5 with hemoglobin of 8.9 and a platelet count of 106 from yesterday. His sodium level is at 135, BUN is at 61 with a creatinine of 4.55. Potassium level is at 4.8 with a serum bicarb of 22. His most recent pro-calcitonin level from 02/15/2022 was 2.05 which remains elevated. He is receiving enteral feeding for nutritional support through his PEG tube. He was receiving vital high protein at the rate of 58 is an hour. The tube feeds were placed on hold in anticipation for a tracheostomy tube insertion. Overall fluid balance over the past 24 hours in the order of - 1.7 L the patient underwent hemodialysis with ultrafiltration. His cardiac rhythm remains sinus. His coagulation profile shows an INR of 1.0 with a PT of 11.2. 02/18/2022, the patient is being seen for a follow-up. This morning, the patient is on propofol at 25 mcg/kg per minute and we are the process of getting this patient a sedation holiday. Note that the patient was given a tracheostomy tube yesterday and the patient has a extra long Shiley tracheostomy tube #8. The patient remains on a mechanical ventilator. No significant leaks around the tracheostomy tube. The patient is an assist-control mode rate of 24 with a tid al volume of 500 and FiO2 of 40% with a PEEP of 5. His chest x-ray from yesterday was showing bilateral pleural effusions and a repeat chest x-ray will be obtained from today. Meanwhile, his blood gases from today is showing a pH of 7.41 with a pCO2 of 41 and pO2 of 75. He remains on a low dose n orepinephrine infusion at 0.07 mcg/kg per minute. IV fluids are currently at KVO. He underwent hemodialysis yesterday with a total ultrafiltration of 2 L. He remains on the same antibiotic coverage included IV cefepime, Flagyl and Eraxis. He does have an unstageable wound on his coccyx. He also has a ankle with that was incised and drained earlier. In terms of his blood work, the white cell count is at 10.6 and hemoglobin of 8.4 and platelet count of 88. His BUN is at 50 with a creatinine of 3.28. Sodium is 136 with a potassium level of 4.1 and a chloride of 99 with a bicarb of 24. INR is at 1.1. Calcium level is at 7.2 and albumin level is at 1.9. The patient is receiving vital high protein at the rate of 65 mL an hour which is goal and his serum albumin is at 1.9. The patient has no major orotracheal secretions. His cardiac rhythm remains sinus. His ankle wound is dressed. As for the coccyx, the patient has an unstageable wound and OptiForm has been applied. We'll discuss this case with general surgeon in regard to the possibility of debridement. 2021, the patient is off sedation. The patient was taken off sedation yesterday morning and he gradually improved in terms of his level of alertness. He is currently at the point where he is opening his eyes and is looking around. He is not following commands yet. No agitation. He remains successful mecha nical ventilator. He did encounter some desaturation yesterday and based on that, the patient the PEEP was increased up to 8 and the patient is currently on an FiO2 of 60%. The mechanical ventilated is also on assist control mode at the rate of 24 with a tidal volume of 500. Blood gases from today showed a pH of 7.31 with a pCO2 of 51 and pO2 of 76. The chest x-rays obviously abnormal and the patient has large bilateral pleural effusions. Tracheostomy tube is in a good location. This progression of pleural effusion and there may be also somewhat on loss and atelectasis on the right side. Underlying pneumonia cannot be completely excluded. The patient had stenotrophomonas and Lynda albicans in the sputum on 02/05/2022. Since then, the patient was covered with antibiotics and the patient remains on IV cefepime and he has been taking the cefepime since 02/06/2022. He is also on Flagyl and Eraxis per IDs recommendation regarding his issues with chronic wounds. He is afebrile. He is hemodynamically requiring low-dose pressors and the patient is on norepinephrine infusion at 0.05 mcg/kg per minute. The white cell count is at 10.6 and hemoglobin of 8 and a platelet count of 88. Electrolytes are normal sodium is at 138, bicarbonate 23, BUN is a 47 with a creatinine of 3.4. The patient underwent hemodialysis yesterday with a total of 2.5 L of fluid being removed. Liver function tests are normal, his pro-calcitonin level from 02/15/2022 was at 2.05 and albumin level is at 2.0. The patient is receiving enteral feeding for nutritional support and he remains on vital high protein at the rate of 55 mL an hour. He remains on Demadex and the urine output is essentially none for now. He remains on Levemir insulin 14 units at bedtime and a NovoLog for sliding scale coverage. 02/20/2022, I'm seeing the patient for a follow-up in the intensive care unit. The patient remains off sedation and he has been off propofol since the had his tracheostomy completed. The patient is opening up his eyes spontaneously. At times he gets restless and agitated. Over the last, his agitation has been manageable and he calms down immediately following this. He is not following any commands. He also remains on a mechanical ventilator. This morning, he is an assist-control mode with a rate of 24 and a tidal volume of 500 and FiO2 of 60% with a PEEP of 8. The morning chest x-ray from today shows volume loss in the right lung and the right lung is completely opacified and is predominantly due to atelectasis and there is also some pleural fluid bilaterally. I performe d a CAT scan of his chest yesterday and the CAT scan showed near complete opacification of the right lung with moderate amount of right-sided pleural effusion on the right and on the left. At the same time, there was significant amount of atelectasis in the right lung. There was diffuse anasarca and small volume ascites. There was also nodularity within the liver raising concern for liver cirrhosis. There was also healing right-sided rib fractures and indeterminant L1 vertebral body compression fracture. There was dilatation of the main pulmonary arteries seen on the CAT scan of the chest. The patient is to undergo hemodialysis today. Is undergoing hemodialysis on a daily basis with a goal of ultrafiltration of around 2-3 L if possible. The patient's hemoglobin today is at 7.2. His white count was attempted 0.5 with a platelet count of 90. The blood gases from today showed a pH of 7.31 with a pCO2 of 51 and a pO2 of 80. The BUN is at 44 with a creatinine of 3.1 and sodium level is at 137. No other significant events otherwise for now. He is afebrile. Blood cultures from 917 and 02/15/2022 were both negative. He is receiving enteral feeding for nutritional support. The patient is a PEG tube and the patient is receiving vital high protein at the rate of 65 mL an hour. Objective - Vital Signs Vital signs: Vital Signs Temp 99.4 F 02/20/22 08:00 Pulse 100 02/20/22 09:30 Resp 12 02/20/22 09:30 BP 113/66 02/20/22 09:30 Pulse Ox 99 02/20/22 09:30 FiO2 60 02/20/22 09:30 Intake & Output 02/19/22 02/20/22 02/20/22 18:59 06:59 18:59 Intake Total 9206.981 2921 339 Output Total 1040 35 10 Balance 348.526 2890 329 Weight 156 kg Intake: IV 626 316 54 0.9% Sodium Chloride @ 140 180 45 10mls/hr Anidulafungin 100 mg In 100 Sodium Chloride 0.9% 100 ml @ 84 mls/hr IVPB DAILY [facility] Rx#:[id number] Cefepime 1 gm In Sodium 50 Chloride 0.9% 50 ml @ 12. 5 mls/hr IVPB Q12HR [facility] Rx#:[id number] Pressure bags 36 36 9 levETIRAcetam IV 500 mg 100 In Sodium Chloride 0.9% 100 ml @ 400 mls/hr IVPB DAILY [facility] Rx#:[id number] metroNIDAZOLE-NS PMX 500 200 100 mg In Saline 1 100ml.bag @ 100 mls/hr IVPB Q8HR [facility] Rx#:[id number] Intake, IV Titration 103.622 Amount Norepinephrine 32 mg In 103.622 Sodium Chloride 0.9% 218 ml @ 0.05 MCG/KG/MIN 3. 246 mls/hr IV .Q24H [facility] Rx#:[id number] Tube Feeding 780 780 195 Hemodialysis 300 Other 60 90 90 Output: Urine 40 35 10 Hemodialysis 1000 Other: Voiding Method Indwelling Catheter Indwelling Catheter ABP, PAP, CO, CI - Last Documented Arterial Blood Pressure 84/42 - Exam GENERAL: BMI 39.6, intubated on a mechanical ventilator. The patient is following commands. He opens his eyes spontaneously. He grimaces to painful stimulation. At times, gets restless yet this is self-limiting and he calms down immediately following that.. Tracheostomy tube is in place without any evidence of air leak around the tracheostomy tube stoma. The patient is calm and comfortable and second is a mechanical ventilator. Head exam was generally normal. There was no scleral icterus or corneal arcus. Mucous membranes were moist. EYES: Pupils equal. Conjunctiva normal. HEENT: External appearance of nose and ears normal, oral cavity grossly normal. NECK: JVD not raised; masses not palpable. HEART: Heart sounds irregular; mild edema. LUNGS: decreased breath sound, prolonged expiration, coarse crackles. The breath sounds are diminished in lung bases bilaterally. ABDOMEN: Soft, distended, nontender, liver spleen not palpable, no masses palpable. The patient has extensive scrotal edema. DERMATOLOGICAL: Large wound around the lateral malleolus right foot Gangrene Changes. The patient has evidence of deep tissue injury to his coccyx/buttocks area. MUSCULOSKELETAL:No Clubbing/cyanosis;muscles-grossly intact, increase in low back pain with movement NEUROLOGICAL: Patient is currently off sedation. No focal neurological deficits. No agitation, the patient withdraws to painful stimulation. He is not following commands yet. He opens his eyes spontaneously. No seizure activity has been noted. LYMPHATICS: No lymph nodes palpable in the axilla and neck. The patient has extensive edema in lower extremities and upper extremity is bilaterally. He has an arterial line in his right radial. - Labs CBC & Chem 7: 02/20/22 04:50 02/20/22 04:50 Labs: Abnormal Lab Results - Last 24 Hours (Table) 02/19/22 02/19/22 02/19/22 Range/Units 05:20 11:48 18:10 RBC (4.30-5.90) m/uL Hgb (13.0-17.5) gm/dL Hct (39.0-53.0) % MCHC (31.0-37.0) g/dL RDW (11.5-15.5) % Plt Count (150-450) k/uL ABG pH (7.35-7.45) ABG pCO2 (35-45) mmHg ABG pO2 (83-108) mmHg ABG Total CO2 (19-24) mmol/L BUN (9-20) mg/dL Creatinine (0.66-1.25) mg/dL Glucose (74-99) mg/dL POC Glucose (mg/dL) 154 H 173 H (70-110) mg/dL Calcium (8.4-10.2) mg/dL Phosphorus 6.5 H (2.5-4.5) mg/dL AST (17-59) U/L Total Protein (6.3-8.2) g/dL Albumin (3.5-5.0) g/dL 02/20/22 02/20/22 02/20/22 Range/Units 01:44 04:50 04:50 RBC 2.49 L (4.30-5.90) m/uL Hgb 7.2 L (13.0-17.5) gm/dL Hct 24.1 L (39.0-53.0) % MCHC 29.8 L (31.0-37.0) g/dL RDW 20.0 H (11.5-15.5) % Plt Count 90 L (150-450) k/uL ABG pH (7.35-7.45) ABG pCO2 (35-45) mmHg ABG pO2 (83-108) mmHg ABG Total CO2 (19-24) mmol/L BUN 44 H (9-20) mg/dL Creatinine 3.18 H (0.66-1.25) mg/dL Glucose 157 H (74-99) mg/dL POC Glucose (mg/dL) 177 H (70-110) mg/dL Calcium 7.5 L (8.4-10.2) mg/dL Phosphorus (2.5-4.5) mg/dL AST 12 L (17-59) U/L Total Protein 4.5 L (6.3-8.2) g/dL Albumin 2.0 L (3.5-5.0) g/dL 02/20/22 02/20/22 Range/Units 05:43 06:40 RBC (4.30-5.90) m/uL Hgb (13.0-17.5) gm/dL Hct (39.0-53.0) % MCHC (31.0-37.0) g/dL RDW (11.5-15.5) % Plt Count (150-450) k/uL ABG pH 7.31 L (7.35-7.45) ABG pCO2 51 H (35-45) mmHg ABG pO2 80 L (83-108) mmHg ABG Total CO2 27 H (19-24) mmol/L BUN (9-20) mg/dL Creatinine (0.66-1.25) mg/dL Glucose (74-99) mg/dL POC Glucose (mg/dL) 156 H (70-110) mg/dL Calcium (8.4-10.2) mg/dL Phosphorus (2.5-4.5) mg/dL AST (17-59) U/L Total Protein (6.3-8.2) g/dL Albumin (3.5-5.0) g/dL Microbiology - Last 24 Hours (Table) 02/15/22 06:05 Blood Culture - Preliminary Blood No Growth after 120 hours 02/14/22 04:33 Blood Culture - Final Blood No Growth after 144 hours Assessment and Plan Plan: Acute hypercapnic respiratory failure, status post intubation and mechanical andrey tilation on 02/05/2022. The patient had prolonged respiratory failure and the patient currently has a tracheostomy tube in place inserted on 02/17/2022 and the patient has been off sedation for the past 24 hours. Neurologically, arousable. Is not following any commands. Remains on mechanical ventilator and he is being ventilated through a tracheostomy tube. Complete opacification of the right lung and the patient has moderate-sized bilateral pleural effusion and significant amount of atelectasis in the right lung along with volume loss. Despite this finding, the patient is oxygenating and ventilating adequately. Please refer to the most recent blood gas.. Status post PEG tube placement 02/12/2022. The patient is receiving enteral feeding for nutritional support with vital high protein. Stenotrophomonas tracheobronchitis/bronchopneumonia, based on his sputum culture that was obtained on 02/05/2022. Methicillin sensitive staph. aureus bacteremia, based on the blood cultures was obtained on 02/01/2022. Repeat cultures on 02/14/2022 and 02/15/2022 were negative. Repeat blood culture on 02/04/2022 was negative. The patient also had staph aureus in the in the right ankle wound in combination with strep agalactiae, group B. The most recent blood cultures from 02/15/2020 to 02/15/2022 were negative. Acute metabolic encephalopathy, currently on no sedation and we are monitoring his mental status, the patient is currently off sedation Acute kidney injury, patient was started on hemodialysis. Daily hemodialysis and ultrafiltration is being done. We'll try to optimize her volume status. The patient continues to have significant amount of edema in his right scrotum. The patient also has moderate-sized bilateral pleural effusions. Right-sided rib fractures, traumatic in nature involving 8, 9 and 10th rib closed fall. right basilar pulmonary contusion, post fall Anterior wedge compression deformity level vertebral body with a 30% compression and multilevel degenerative disc disease Limited hemoptysis or contusion exacerbated by Coumadin toxicity , recovered COPD and chronic smoking Coumadin toxicity with an INR above 10 given vitamin K, recovered Ileus post NG tube insertion, recovered History of frequent falls, not a good candidate for anticoagulants delerium, change in the mental status COPD Chronic bronchitis/reactive to chronic smoking History of chronic atrial flutter maintained on metoprolol and anticoagulation with warfarin Chronic kidney disease, likely stage III Stage II right ankle wound measuring 8.5 x 4 cm in size and surgical debridement has been done Unstageable deep tissue injury involving the Buttock bilateral obesity Possible obstructive sleep apnea Diabetic peripheral neuropathy Chronic back pain Degenerative arthritis Hyperlipidemia History of chronic back pain and degenerative arthritis History of renal calculus measuring 7 mm in size in the right renal pelvis Plan continue with the supportive care Continue ventilator support and no vent changes were begun for today Based on my review of the CAT scan, the right lung opacifications a combination of pleural fluid and atelectasis. Ideally, he would need a bronchoscopy to evaluate for any endobronchial lesions or any mucous plug in this contributing to his right lung atelectasis. At the same time, the patient is undergoing daily hemodialysis and his pleural effusions should gradually improve. If not, drainage may be needed either. Thoracentesis or chest tube insertion. Antibiotic management per infectious disease Continue with pressors for now with an attempt to wean it down as long as the mean arterial pressure remains above 60, currently on 0.07 micrograms per kilograms Per minute of norepinephrine infusion and typically blood pressure during dialysis. He is being titrated accordingly. Hemodialysis is being done today Patient already has a PEG tube in place, continue enteral feeding for nutritional support Levemir Continue same antibiotic regimen for now Continue wound care and will discuss the findings with the general surgeon and see the patient will be a candidate for more debridement of his deep tissue in jury of his buttocks bilaterally Cardiac rhythm is sinus with PACs Levemir insulin 14 units at bedtime along with a sliding scale coverage Very poor prognosis based on the above-mentioned comorbidities. We'll discuss today out, the family including the brother and the girlfriend and we'll attempt a at least a change in her CODE STATUS. Evaluation that was done and more than 30 minutes. Time with Patient: Greater than 30
--- NOTE | 2022-02-20 11:26 | P.PN ---
Subjective Patient is seen in follow-up for acute kidney injury. Started on hemodialysis 02/09/2022. Intubated. On Levophed. Receiving tube feeds.. Urine output about 0-5 mL an hour. Seen on hemodialysis today. Patient is not tolerating his treatment well today. Blood pressure is in the 70s and heart rate increased to 130s. Levo fed has been increased however heart rate remains elevated. Chest x-ray shows near complete opacification of right lung. Scheduled for bronchoscopy this a.m. Objective - Vital Signs Vital signs: Vital Signs Temp 99.4 F 02/20/22 08:00 Pulse 101 H 02/20/22 11:18 Resp 12 02/20/22 09:30 BP 113/66 02/20/22 09:30 Pulse Ox 99 02/20/22 09:30 FiO2 60 02/20/22 11:04 Intake & Output 02/19/22 02/20/22 02/20/22 18:59 06:59 18:59 Intake Total 0877.370 9350 404 Output Total 1040 35 10 Balance 395.969 3950 394 Weight 156 kg Intake: IV 626 316 54 0.9% Sodium Chloride @ 140 180 45 10mls/hr Anidulafungin 100 mg In 100 Sodium Chloride 0.9% 100 ml @ 84 mls/hr IVPB DAILY [facility] Rx#:[id number] Cefepime 1 gm In Sodium 50 Chloride 0.9% 50 ml @ 12. 5 mls/hr IVPB Q12HR [facility] Rx#:[id number] Pressure bags 36 36 9 levETIRAcetam IV 500 mg 100 In Sodium Chloride 0.9% 100 ml @ 400 mls/hr IVPB DAILY [facility] Rx#:[id number] metroNIDAZOLE-NS PMX 500 200 100 mg In Saline 1 100ml.bag @ 100 mls/hr IVPB Q8HR [facility] Rx#:[id number] Intake, IV Titration 103.622 Amount Norepinephrine 32 mg In 103.622 Sodium Chloride 0.9% 218 ml @ 0.05 MCG/KG/MIN 3. 246 mls/hr IV .Q24H [facility] Rx#:[id number] Tube Feeding 780 780 260 Hemodialysis 300 Other 60 90 90 Output: Urine 40 35 10 Hemodialysis 1000 Other: Voiding Method Indwelling Catheter Indwelling Catheter ABP, PAP, CO, CI - Last Documented Arterial Blood Pressure 84/42 - Exam Patient is on the vent. Having nonpurposeful movements of the mouth and face Decreased breath sounds bilaterally worse on the right side Examination of the heart S1 and S2 Abdomen is obese distended Examination lower extremity shows edema 2-3+ bilaterally upper and lower extremities with chronic skin changes in the legs. Significant scrotal edema noted INTERIOR DESIGN PROFESSOR exam shows pt is awake but not following commands. - Labs CBC & Chem 7: 02/20/22 04:50 02/20/22 04:50 Labs: Abnormal Lab Results - Last 24 Hours (Table) 02/19/22 02/19/22 02/19/22 Range/Units 05:20 11:48 18:10 RBC (4.30-5.90) m/uL Hgb (13.0-17.5) gm/dL Hct (39.0-53.0) % MCHC (31.0-37.0) g/dL RDW (11.5-15.5) % Plt Count (150-450) k/uL ABG pH (7.35-7.45) ABG pCO2 (35-45) mmHg ABG pO2 (83-108) mmHg ABG Total CO2 (19-24) mmol/L BUN (9-20) mg/dL Creatinine (0.66-1.25) mg/dL Glucose (74-99) mg/dL POC Glucose (mg/dL) 154 H 173 H (70-110) mg/dL Calcium (8.4-10.2) mg/dL Phosphorus 6.5 H (2.5-4.5) mg/dL AST (17-59) U/L Total Protein (6.3-8.2) g/dL Albumin (3.5-5.0) g/dL 02/20/22 02/20/22 02/20/22 Range/Units 01:44 04:50 04:50 RBC 2.49 L (4.30-5.90) m/uL Hgb 7.2 L (13.0-17.5) gm/dL Hct 24.1 L (39.0-53.0) % MCHC 29.8 L (31.0-37.0) g/dL RDW 20.0 H (11.5-15.5) % Plt Count 90 L (150-450) k/uL ABG pH (7.35-7.45) ABG pCO2 (35-45) mmHg ABG pO2 (83-108) mmHg ABG Total CO2 (19-24) mmol/L BUN 44 H (9-20) mg/dL Creatinine 3.18 H (0.66-1.25) mg/dL Glucose 157 H (74-99) mg/dL POC Glucose (mg/dL) 177 H (70-110) mg/dL Calcium 7.5 L (8.4-10.2) mg/dL Phosphorus (2.5-4.5) mg/dL AST 12 L (17-59) U/L Total Protein 4.5 L (6.3-8.2) g/dL Albumin 2.0 L (3.5-5.0) g/dL 02/20/22 02/20/22 Range/Units 05:43 06:40 RBC (4.30-5.90) m/uL Hgb (13.0-17.5) gm/dL Hct (39.0-53.0) % MCHC (31.0-37.0) g/dL RDW (11.5-15.5) % Plt Count (150-450) k/uL ABG pH 7.31 L (7.35-7.45) ABG pCO2 51 H (35-45) mmHg ABG pO2 80 L (83-108) mmHg ABG Total CO2 27 H (19-24) mmol/L BUN (9-20) mg/dL Creatinine (0.66-1.25) mg/dL Glucose (74-99) mg/dL POC Glucose (mg/dL) 156 H (70-110) mg/dL Calcium (8.4-10.2) mg/dL Phosphorus (2.5-4.5) mg/dL AST (17-59) U/L Total Protein (6.3-8.2) g/dL Albumin (3.5-5.0) g/dL Microbiology - Last 24 Hours (Table) 02/15/22 06:05 Blood Culture - Preliminary Blood No Growth after 120 hours 02/14/22 04:33 Blood Culture - Final Blood No Growth after 144 hours Assessment and Plan Assessment: 1. Acute kidney injury ATN secondary to sepsis and hypotension. 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 Started on hemodialysis on 02/09/2022. Oliguric. Serum creatinine in April 2019 was 0.8. No evidence of obstruction on CAT scan. 2. Acute hypoxic, hypercapnic respiratory failure currently on the vent 3. MSSA bacteremia initially on vancomycin and currently on cefazolin. Last blood cultures drawn on 02/04/2022 are negative, source is right foot ulcer 4. Hyperphosphatemia associated with acute kidney injury currently maintained on PhosLo 5. Volume overload, slowly improving with UF with hemodialysis 6. Right lung near complete opacification scheduled for bronchoscopy today Plan: Hold hemodialysis today and we will plan for treatment tomorrow Continue Aranesp and phosphate binders
[2022-02-20 12:16] LABS: Glucose,Whole Blood 144 mg/dL (70-110)
--- NOTE | 2022-02-20 12:27 | P.PN ---
Subjective Progress Note Date: 02/20/22 CHIEF COMPLAINT: Upper GI bleeding HISTORY OF PRESENT ILLNESS: Patient is intubated and on mechanical ventilation on in the ICU. Patient is currently getting hemodialysis. Patient is tolerating tube feeds. Tube feeds are currently at 65 mL per hour. Abdominal x-ray pending. Afebrile. WBC is 10.5 Hgb 7.2 platelets 90 sodium 137 potassium is 4.0 creatinine 3.18 PHYSICAL EXAM: VITAL SIGNS: Reviewed. GENERAL : Intubated HEENT: Tracheostomy site clean dry and intact ABDOMEN: Soft. Nondistended. PEG tube site clean dry and intact ASSESSMENT: 1. Ileus 2. Upper GI bleed resolved 3. Fecal impaction 4. Altered mental status 5. Leukocytosis 6. Respiratory failure requiring mechanical ventilation and unable to be weaned from vent status post tracheostomy 7. Severe protein calorie nutrition status post PEG tube placement PLAN: -Continue ICU management -Continue supportive care -Continue stool softeners -Continue to monitor Physician Director Of Retail note has been reviewed by physician. Signing provider agrees with the documented findings, assessment, and plan of care. I have personally seen and examined the patient, reviewed the SR ACCOUNT EXECUTIVE /PAs history, exam and MDM and agree with the assessment and plan as written. Based on total visit time, I have performed more than 50% of the visit. As above: Patient remains on the ventilator. CT chest shows volume loss from the right lung. Patient may be having a bronchoscopy today. CT abdomen and pelvis showed evidence of constipation. Rectal exam by nursing staff today showed somewhat firm stools but high up in the rectum unable to be manually disimpacted. We will give dose of either magnesium citrate or GoLYTELY today. Will follow. Objective - Vital Signs Vital signs: Vital Signs Temp 99.4 F 02/20/22 08:00 Pulse 101 H 02/20/22 11:18 Resp 12 02/20/22 09:30 BP 107/51 02/20/22 12:03 Pulse Ox 99 02/20/22 09:30 FiO2 60 02/20/22 11:04 Intake & Output 02/19/22 02/20/22 02/20/22 18:59 06:59 18:59 Intake Total 7004.544 7427 754 Output Total 1040 35 10 Balance 596.229 0182 744 Weight 156 kg Intake: IV 626 316 54 0.9% Sodium Chloride @ 140 180 45 10mls/hr Anidulafungin 100 mg In 100 Sodium Chloride 0.9% 100 ml @ 84 mls/hr IVPB DAILY [facility] Rx#:[id number] Cefepime 1 gm In Sodium 50 Chloride 0.9% 50 ml @ 12. 5 mls/hr IVPB Q12HR [facility] Rx#:[id number] Pressure bags 36 36 9 levETIRAcetam IV 500 mg 100 In Sodium Chloride 0.9% 100 ml @ 400 mls/hr IVPB DAILY [facility] Rx#:[id number] metroNIDAZOLE-NS PMX 500 200 100 mg In Saline 1 100ml.bag @ 100 mls/hr IVPB Q8HR [facility] Rx#:[id number] Intake, IV Titration 103.622 Amount Norepinephrine 32 mg In 103.622 Sodium Chloride 0.9% 218 ml @ 0.05 MCG/KG/MIN 3. 246 mls/hr IV .Q24H [facility] Rx#:[id number] Tube Feeding 780 780 260 Hemodialysis 300 350 Other 60 90 90 Output: Urine 40 35 10 Hemodialysis 1000 Other: Voiding Method Indwelling Catheter Indwelling Catheter ABP, PAP, CO, CI - Last Documented Arterial Blood Pressure 84/42 - Labs CBC & Chem 7: 02/20/22 04:50 02/20/22 04:50 Labs: Abnormal Lab Results - Last 24 Hours (Table) 02/19/22 02/19/22 02/20/22 Range/Units 05:20 18:10 01:44 RBC (4.30-5.90) m/uL Hgb (13.0-17.5) gm/dL Hct (39.0-53.0) % MCHC (31.0-37.0) g/dL RDW (11.5-15.5) % Plt Count (150-450) k/uL ABG pH (7.35-7.45) ABG pCO2 (35-45) mmHg ABG pO2 (83-108) mmHg ABG Total CO2 (19-24) mmol/L BUN (9-20) mg/dL Creatinine (0.66-1.25) mg/dL Glucose (74-99) mg/dL POC Glucose (mg/dL) 173 H 177 H (70-110) mg/dL Calcium (8.4-10.2) mg/dL Phosphorus 6.5 H (2.5-4.5) mg/dL AST (17-59) U/L Total Protein (6.3-8.2) g/dL Albumin (3.5-5.0) g/dL 02/20/22 02/20/22 02/20/22 Range/Units 04:50 04:50 05:43 RBC 2.49 L (4.30-5.90) m/uL Hgb 7.2 L (13.0-17.5) gm/dL Hct 24.1 L (39.0-53.0) % MCHC 29.8 L (31.0-37.0) g/dL RDW 20.0 H (11.5-15.5) % Plt Count 90 L (150-450) k/uL ABG pH 7.31 L (7.35-7.45) ABG pCO2 51 H (35-45) mmHg ABG pO2 80 L (83-108) mmHg ABG Total CO2 27 H (19-24) mmol/L BUN 44 H (9-20) mg/dL Creatinine 3.18 H (0.66-1.25) mg/dL Glucose 157 H (74-99) mg/dL POC Glucose (mg/dL) (70-110) mg/dL Calcium 7.5 L (8.4-10.2) mg/dL Phosphorus (2.5-4.5) mg/dL AST 12 L (17-59) U/L Total Protein 4.5 L (6.3-8.2) g/dL Albumin 2.0 L (3.5-5.0) g/dL 02/20/22 02/20/22 Range/Units 06:40 12:15 RBC (4.30-5.90) m/uL Hgb (13.0-17.5) gm/dL Hct (39.0-53.0) % MCHC (31.0-37.0) g/dL RDW (11.5-15.5) % Plt Count (150-450) k/uL ABG pH (7.35-7.45) ABG pCO2 (35-45) mmHg ABG pO2 (83-108) mmHg ABG Total CO2 (19-24) mmol/L BUN (9-20) mg/dL Creatinine (0.66-1.25) mg/dL Glucose (74-99) mg/dL POC Glucose (mg/dL) 156 H 144 H (70-110) mg/dL Calcium (8.4-10.2) mg/dL Phosphorus (2.5-4.5) mg/dL AST (17-59) U/L Total Protein (6.3-8.2) g/dL Albumin (3.5-5.0) g/dL Microbiology - Last 24 Hours (Table) 02/15/22 06:05 Blood Culture - Preliminary Blood No Growth after 120 hours 02/14/22 04:33 Blood Culture - Final Blood No Growth after 144 hours
[2022-02-20] MEDS: MORPHINE ORAL SOLN 10 MG/5 ML CUP PO SCH ×2 (12:59→23:37)
--- NOTE | 2022-02-20 15:03 | XR ---
2 view abdomen HISTORY: Ileus 2 views the abdomen submitted on [address] images [address] CT scan 02/19/2022 There is a right subclavian central venous catheter with the distal tip near the cavoatrial junction. Bibasilar increased attenuation is again noted. Right-sided femoral dialysis catheter is present. Hi gh dense stool is noted incidentally, colonic distention is present. Degenerative disc changes are pr esent in the visualized spine. Arthropathy is present within the hips, correlate for possible femoral acetabular impingement. No evident pneumoperitoneum. PEG tube is in place. There is mild spinal curv ature. IMPRESSION: Findings could be indicative of ileus. Bibasilar effusions and associated compressive ate lectasis correlate to exclude pneumonia.
--- NOTE | 2022-02-20 15:19 | P.PN ---
Subjective Progress Note Date: 02/20/22 Principal diagnosis: Right foot infected pressure ulcer and bacteremia Patient is a 61-year-old male presented to the hospital for evaluation of fall patient also noticed to have a wound on the right lateral foot with some necrotic edges which has been debridement by vascular surgery on 01/31/2022.Patient has been transthoracic because of significant mental status changes, The patient ended up getting intubated, the patient also have worsening of the kidney function requiring dialysis catheter placement and has been started on dialysis as of 02/09/2022, the patient did have a PEG tube placement on 02/12/2022 , The patient is s/p tracheostomy completed on 02/17/2022 On today's evaluation that is 02/20/2022, The patient continues to be afebrile the patient remains to be intubated on the vent and FiO2 is stable at 60% and has been requiring low-dose pressor support per the nursing staff to feed has been put on hold because of high residual however no vomiting or diarrhea has been reported Objective - Vital Signs Vital signs: Vital Signs Temp 99.2 F 02/20/22 12:00 Pulse 107 H 02/20/22 12:30 Resp 19 02/20/22 12:30 BP 127/67 02/20/22 12:30 Pulse Ox 98 02/20/22 12:30 FiO2 60 02/20/22 12:30 Intake & Output 02/19/22 02/20/22 02/20/22 18:59 06:59 18:59 Intake Total 2481.725 9584 1265.701 Output Total 1040 35 510 Balance 650.914 0361 755.701 Weight 156 kg 156 kg Intake: IV 626 316 358 0.9% Sodium Chloride @ 140 180 90 10mls/hr Anidulafungin 100 mg In 100 100 Sodium Chloride 0.9% 100 ml @ 84 mls/hr IVPB DAILY [facility] Rx#:[id number] Cefepime 1 gm In Sodium 50 50 Chloride 0.9% 50 ml @ 12. 5 mls/hr IVPB Q12HR [facility] Rx#:[id number] Pressure bags 36 36 18 levETIRAcetam IV 500 mg 100 In Sodium Chloride 0.9% 100 ml @ 400 mls/hr IVPB DAILY [facility] Rx#:[id number] metroNIDAZOLE-NS PMX 500 200 100 100 mg In Saline 1 100ml.bag @ 100 mls/hr IVPB Q8HR [facility] Rx#:[id number] Intake, IV Titration 103.622 77.701 Amount Norepinephrine 32 mg In 103.622 77.701 Sodium Chloride 0.9% 218 ml @ 0.05 MCG/KG/MIN 3. 246 mls/hr IV .Q24H [facility] Rx#:[id number] Tube Feeding 780 780 390 Hemodialysis 300 350 Other 60 90 90 Output: Urine 40 35 10 Oral Regurgitation 500 Hemodialysis 1000 Other: Voiding Method Indwelling Catheter Indwelling Catheter ABP, PAP, CO, CI - Last Documented Arterial Blood Pressure 93/44 - Exam GENERAL DESCRIPTION: Middle-aged male intubated Through the trach LUNGS: Unlabored breathing. Decreased breath sound at the base HEART: S1, S2, regular rate and rhythm. ABDOMEN: Soft, no tenderness , guarding or rigidity, no organomegaly EXTREMITIES: Right foot wound is currently dressed no drainage on the dressing - Labs CBC & Chem 7: 02/20/22 04:50 02/20/22 04:50 Labs: Abnormal Lab Results - Last 24 Hours (Table) 02/19/22 02/20/22 02/20/22 Range/Units 18:10 01:44 04:50 RBC 2.49 L (4.30-5.90) m/uL Hgb 7.2 L (13.0-17.5) gm/dL Hct 24.1 L (39.0-53.0) % MCHC 29.8 L (31.0-37.0) g/dL RDW 20.0 H (11.5-15.5) % Plt Count 90 L (150-450) k/uL ABG pH (7.35-7.45) ABG pCO2 (35-45) mmHg ABG pO2 (83-108) mmHg ABG Total CO2 (19-24) mmol/L BUN (9-20) mg/dL Creatinine (0.66-1.25) mg/dL Glucose (74-99) mg/dL POC Glucose (mg/dL) 173 H 177 H (70-110) mg/dL Calcium (8.4-10.2) mg/dL AST (17-59) U/L Total Protein (6.3-8.2) g/dL Albumin (3.5-5.0) g/dL 02/20/22 02/20/22 02/20/22 Range/Units 04:50 05:43 06:40 RBC (4.30-5.90) m/uL Hgb (13.0-17.5) gm/dL Hct (39.0-53.0) % MCHC (31.0-37.0) g/dL RDW (11.5-15.5) % Plt Count (150-450) k/uL ABG pH 7.31 L (7.35-7.45) ABG pCO2 51 H (35-45) mmHg ABG pO2 80 L (83-108) mmHg ABG Total CO2 27 H (19-24) mmol/L BUN 44 H (9-20) mg/dL Creatinine 3.18 H (0.66-1.25) mg/dL Glucose 157 H (74-99) mg/dL POC Glucose (mg/dL) 156 H (70-110) mg/dL Calcium 7.5 L (8.4-10.2) mg/dL AST 12 L (17-59) U/L Total Protein 4.5 L (6.3-8.2) g/dL Albumin 2.0 L (3.5-5.0) g/dL 02/20/22 Range/Units 12:15 RBC (4.30-5.90) m/uL Hgb (13.0-17.5) gm/dL Hct (39.0-53.0) % MCHC (31.0-37.0) g/dL RDW (11.5-15.5) % Plt Count (150-450) k/uL ABG pH (7.35-7.45) ABG pCO2 (35-45) mmHg ABG pO2 (83-108) mmHg ABG Total CO2 (19-24) mmol/L BUN (9-20) mg/dL Creatinine (0.66-1.25) mg/dL Glucose (74-99) mg/dL POC Glucose (mg/dL) 144 H (70-110) mg/dL Calcium (8.4-10.2) mg/dL AST (17-59) U/L Total Protein (6.3-8.2) g/dL Albumin (3.5-5.0) g/dL Microbiology - Last 24 Hours (Table) 02/15/22 06:05 Blood Culture - Preliminary Blood No Growth after 120 hours 02/14/22 04:33 Blood Culture - Final Blood No Growth after 144 hours Assessment and Plan (1) Cellulitis Current Visit: Yes Status: Acute Code(s): L03.90 - CELLULITIS, UNSPECIFIED SNOMED Code(s): 226170148 Plan: 1patient with right foot unstageable pressure ulcer with surrounding necrotic area and cellulitis On admission,x-rays do not show any bony changes likely from gram-positive skin caleb and less likely gram-negative pathogen, patient is status post vascular surgery evaluation and debridement and deep cultureWhich has been finalized with strep and MSSA. 2-patient with MSSA bacteremia source is likely right foot infected pressure ulcer, Repeat blood culture has been negative 3Patient did have significant abnormality seen on the CT obtained by surgery with concern for possible fecal impaction and some inflammation of the colon and possible fistula which has been ruled out by general surgery. 4- patient sputum has been finalized with stenotrophomonas sensitive to Fortaz and sputum with Lynda albicans concern for component of oropharyngeal candidiasis, 5-Patient did have a stage II pressure ulcer to the sacral area with no cellulitis local wound care with a dry Aquacel silver dressing. 6patient clinical condition remains to be guarded, patient to continue with the cefepime Which should cover for both the MSSA as well as stenotrophomonas and Eraxis Will cover for the oropharyngeal candidiasis and monitor clinical course closely Time with Patient: Less than 30
--- NOTE | 2022-02-20 15:49 | P.PCN ---
Date of Procedure: 02/20/22 Preoperative Diagnosis: Right lung atelectasis Postoperative Diagnosis: Right lung atelectasis due to RLL pneumonia and copious mucus plugs Procedure(s) Performed: Flexible bronchoscopy, therapeutic airway suctioning, removal of mucous plugs, bronchioloalveolar lavage of the right lower lobe. Anesthesia: MAC Surgeon: Ford Delatorre Estimated Blood Loss (ml): 0 Pathology: other Condition: critical Disposition: ICU Operative Findings: The patient is currently on a mechanical ventilator. The patient has a Shiley tracheostomy tube in place. Procedure was done due to right lung atelectasis and considers of mucous plugs. The same time, the patient had a moderate-sized right-sided pleural effusion. This procedure was done in intensive care unit. Flexible bronchoscope was easily passed through the tracheostomy tube. Note that the procedure was somewhat the patient was adequately oxygenating and ventilating. The bronchoscope was advanced into the lower trachea and the tip of the tracheostomy tube was seen in the mid trachea. There was copious amount of purulent respiratory secretions occupying the jodi and more so the right mainstem bronchus. Therapeutic it was suctioning with him. A total of 15-20 mL of purulent material that was green darkened turbid and purulence was aspirated. As the therapeutic it was suctioning was done, and airway inspection was done. Bilateral mainstem bronchi were inspected there were patent. The rest of the examination including the right upper lobe bronchus, the right lower lobe bronchus and the right middle lobe bronchus and I noted that the various segments of the right lung including the right upper lobe middle lobe and lower lobe atelectatic. I was able to examine the orifice of each of those segments. Following that, the bronchoscope was moved to the left and examination left- sided was done including left upper and left lower lobe bronchus and the various 8 segments of the left. After completing the therapeutic it was suctioning and removal of mucous plugs, a bronchioloalveolar lavage was done of the right lower lobe and a total of 15 mL of fluid was aspirated from the right lower lobe. No complications. Bronchoscope was removed. The samples will be sent for microbial cultures and analysis and cytology.
[2022-02-20 17:53] LABS: Glucose,Whole Blood 129 mg/dL (70-110)
[2022-02-20] MEDS ORDERED: PEG 3350 (236 GM/BTL) + LYTES 4,000 ML BOTTLE PO ONE (18:47)
[2022-02-20] MEDS: NOREPINEPHRINE 32 MG in SODIUM CHLORIDE 0.9% 218 ML IV SCH ×2 (20:34→23:37)
--- NOTE | 2022-02-20 20:38 | P.PN ---
Progress Note - Text Progress Note Date: 02/20/22 This is a 61-year-old patient who follows with Dr. Sridhar Chan. Chronic stable medical conditions include diabetes, hypertension, hyperlipidemia, chronic low back problems, cigarette smoker. At the baseline uses a walker. Patient slipped in the bathroom falling on his buttock. Was not able to get up. By the EMS report he had fallen 24 hours prior to the picking him up. Patient been complaining of pain in the right rib cage in the lower back. X-ray was negative for fracture. Patient continued to have significant pain especially with deep breathing. Patient also had a congestive cough and wheezing. Some bloody sputum. Denies any fever and chills. Patient also complaining of urina ry retention and requesting a Shepard catheter. at the bedside. No fever no chills. Orthopedics consulted for the same. Patient normally has a bowel movement once a week. Patient also has a wound on the right foot lateral part of the ankles for about a week. Ischemic changes. From rubbing against a bedpost. Patient's INR in the ER was greater than 10. Was given vitamin K. 10 mg Patient bit with Coumadin toxicity, given vitamin K, acute COPD exacerbation, uncontrolled atrial flutter put on Lopressor, right chest wall pain. Computed tomography scan lumbar spine and chest was ordered. Large wound on the right lateral malleolus-ID and vascular consulted.. IV cefepime. February 01: Patient yesterday to see refused his computed tomography scan of the chest and lumbar spine. Done today. Right-sided rib fractures, pulmonary contusion confirm. L1 vertebral body 30% wedge compression fracture. Patient's girlfriend the bedside. It was discussed in detail with her. Patient wanting again and again to pull out his NG tube. Requests the to stay with the patient. Patient is also had the dark aspirate from the stomach for which she has NG tube. Surgery was consulted for the same. Also this morning right foot wound was debrided by Dr. Ibarra from vascular. Wound base was relatively clean. No undermining or tunneling. February 02: Delirious. NG tube to suction. Has been in restraints because point NG TUBE several times. Mumbling to himself. Dressing over the right ankle. Not in distress. Ileus. Chest x-ray showing right lower lobe/atelectasis. February 03: Hospital computer system was down. Patient remains delirious. Nasal cannula. Lethargic. Family the bedside. Antibiotics. A. fib uncontrolled. EEG evidence of metabolic encephalopathy. No clear-cut epileptiform activity. Started on Keppra by neurology. February 04: ICU: Girlfriend at the bedside. In atrial fibrillation uncontrolled. On IV Cardizem and IV amiodarone. NG tube to suction. Patient lethargic. Multiple breathing. 2 L. Oxygen. February 05: ICU. Atrial fibrillation better controlled this morning. Cardizem discontinued. Patient respiratory status worsened this morning and patient is intubated. FiO2 45 and a PEEP of 5. Atrial fibrillation, controlled. Drips include amiodarone, propofol, levo fed. Discussed with girlfriend the bedside. Understands prognosis guarded. February 06: ICU: Ventilated. FiO2 45 and a PEEP of 5. NG tube is clamped. On IV propofol. Sedated. Heart rate better controlled. Was started on Coumadin yesterday. Worsening renal function. Nephrology consulted. 02/07/2022 Patient is currently in the MICU and on mechanical ventilator. Tidal volume of 400, FiO2 40% and PEEP of 5. Patient is off pressor support today. Currently on propofol and is also on tube feeding. Chest x-ray showed stable exam with stable support lines and tubes. Correlate for congestive heart failure. Patient was given a dose of IV Lasix. Laboratory data showed WBC 18.4 hemoglobin 11.6 and platelets 458 Sodium 141 potassium 3.7 chloride 103 bicarb is 18 BUN 49 and creatinine 3.73 and calcium 7.3. INR is 2.2. Patient is being followed by nephrology cardiology and critical care team. 02/08/2022 Patient is currently on mechanical ventilator and sedated with propofol. Assist control with FiO2 40% and tidal volume of 400 and PEEP of 5. Patient is being continued on antibiotics above cefepime and Flagyl. Sputum gram stain gram-negative bacilli and Lynda. Chest x-ray today showed findings suggestive of slightly worsening CHF exacerbation as there is cardiomegaly with mild to moderate central venous congestion and small to moderate-sized bilateral pleural effusion. Laboratory test showed WBC increased to 23.6 hemoglobin 9.1 and platelets 162 INR 3.0 Sodium 139 potassium 4.3 chloride 113 bicarb is 40 BUN 54 and creatinine worsening to 4.36 February 09: I resumed the care of patient today ICU: Med: 40/5. Received vitamin K 5 mg IV to bring the INR down for dialysis catheter. Drips include bicarbonate, propofol, epinephrine. Patient is a stage II coccyx is ulcer. Plan is to change the NG tube to on G-tube today. For possible colitis/fistula on antibiotics. at the bedside. February 10: ICU. Ventilator 50/5. Hemodialysis catheter placed last night. Hemodialyzed yesterday and getting dialyzed today. Remains in atrial fibrillation heart rate uncontrolled. Getting up sedation holiday. Drips include bicarbonate and norepinephrine. Propofol currently held. 2 feeding at 46 mL an hour. Does open eyes. February 11: ICU. Ventilator. 50/5. Third day for hemodialysis. 1.5 L to be removed today. Back on propofol. Drips include bicarbonate, norepinephrine, propofol. On G-tube feeding. Patient back in sinus rhythm. Bag and tracheostomy to planning for next week. 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 IV antifungal started by ID. February 12: ICU: Ventilator: 40/5. Telemetry shows sinus rhythm. Drips include propofol and norepinephrine. On G-tube feeding. Discussed with the at the bedside. Understands prognosis guarded. IV antibiotics and antifungals. February 13: ICU: Ventilator: 40/5. PEG tube placed yesterday by Dr. Cornejo. Drips include bicarbonate, propofol, norepinephrine. Getting hemodialysis done today. February 14: ICU: Medicated. 2 feeding at 65 mL an hour. This included propofol and norepinephrine. Hemodialysis done today. Sinus rhythm. February 15: ICU: Ventilator: 40/5. 2 feeding at 65 mL an hour. Drips include propofol and norepinephrine. No hemodialysis today. at the bedside. Discussed. 02/16/2022 Patient seen and evaluated and follow-up continues to be in the ICU on mechanical ventilation with sedation with multiple medical consultations following. Patient is currently receiving hemodialysis and continues with a temporary dialysis catheter. Patient is still full code and overall prognosis remains extremely poor and guarded. Patient's FiO2 is 40% with a PEEP of 5. Patient also continues on antifungal along with cefepime and metronidazole with infectious disease following. Patient is sedated on propofol continues on Levophed as well. WBC is 12.9 with hemoglobin of 8.7, sodium is 134 with a potassium of 4.5 current creatinine is 4.69 with a BUN of 66. Patient is maintained on tube feedings and has received the PEG tubing is scheduled for tracheostomy tentatively today if OR available. Again overall prognosis remains extremely guarded. 02/17/2022 Patient continues to be in the ICU on mechanical vent and FiO2 remains 40% with a PEEP of 5. Patient continues on norepinephrine with multiple medical consultations following. Patient continues on propofol for sedation and also was maintained on hemodialysis almost daily. Patient continues on cefepime along with an antifungal and Flagyl with anxiety following sputum culture showing 16 oh troph ammonias maltophilia with Lynda most recent blood cultures have been negative. Patient is afebrile although WBC is elevated at 14.5 and hemoglobin is 8.9, BUN is 61 with a creatinine of 4.55, sodium is 135 and sodium bicarb tablets have been discontinued. Magnesium was 1.9. Plan is tentatively scheduled for tracheostomy with general surgery today post hemodialysis. Overall prognosis is extremely guarded. Chest x-ray shows continued bilateral pleural effusions with no significant change from previous day. Patient is maintained on tube feedings via PEG tube although on hold for surgery today 02/18/2022 Patient is seen and evaluated continues to be in the ICU with multiple medical consultations following. Patient is status post tracheostomy placement with Dr. Villegas yesterday evening and tolerating well with no leaks noted. Patient contin ues on FiO2 of 40% with a PEEP of 5. Patient undergoing sedation holiday and propofol was recently turned off. Patient is awake and opening eyes spontaneously although not following commands on exam. Patient is looking around the room and mouthing words with no comprehension. Patient with extensive wounds of the sacro-coccyx region that are currently unstageable and general surgery is following and may possibly require debridement of these areas. Patient is status post debridement of the right foot previously. Patient is maintained on antibiotics along with antifungal's and infectious di sease is following. Patient is afebrile and WBC is 10.6, hemoglobin is 8.4, patient is also with a BUN of 50 and creatinine is 3.78, magnesium is 1.8. Patient is being closely monitored by nephrology with a temporary site of the right femoral receiving daily dialysis. Patient continues on low-dose Levophed and working on weaning as tolerated. PEG tube feedings are at goal and tolerating. Overall prognosis remains extremely guarded. 02/19/2022 Patient is seen in follow-up this morning and has been off propofol since yesterday although continues to not follow commands. Multiple medical c onsultations following. Patient is status post recent tracheostomy and also PEG tube placement and has been resumed on tube feedings and tolerating at goal. Patient is continuing on hemodialysis with a right groin temporary catheter. Chest x-ray this morning shows some possible progression of pleural effusions and airspace disease or atelectasis especially in the right lung. Nursing staff questioning about anticoagulation and his Coumadin was on hold for tracheostomy and patient is being started on eliquis. Patient continues on antibiotics as well in the form of cefepime and Flagyl and antifungal's with anxiety following. Patient also continues on low-dose Levophed. Patient continues on mechanical ventilation via tracheostomy with an FiO2 of 60. Patient scheduled to receive dialysis again today. General surgery is following and may be required for debridement of the decubitus ulcers once more stable. Pulmonary discussing possible thoracentesis in the near future. Patient is currently afebrile. Prognosis remains extremely guarded. February 20: Patient was being covered by [facility] last 4 days. ICU. Ventilator. FiO2 16 a PEEP of 8. Has a PEG and trach. Awake, drowsy. On norepinephrine. at the bedside. Active Medications Acetaminophen (Acetaminophen Tab 325 Mg Tab) 650 mg PO Q6HR PRN PRN Reason: Mild Pain or Fever > 100.5 Albuterol/Ipratropium (Ipratropium-Albuterol 3 Ml Neb) 3 ml INHALATION RT-QID [facility] Last Admin: 02/20/22 15:12 Dose: 3 ml Amiodarone HCl (Amiodarone 200 Mg Tab) 200 mg PO BID [facility] Last Admin: 02/20/22 20:33 Dose: 200 mg Apixaban (Apixaban 2.5 Mg Tablet) 2.5 mg PO BID [facility]; Protocol Last Admin: 02/20/22 20:33 Dose: 2.5 mg Artificial Tears (Artificial Tears-Hypromellose Drops 15 Ml Btl) 2 drops BOTH EYES TID PRN PRN Reason: Dry Eye(s) Bisacodyl (Bisacodyl 10 Mg Supp) 10 mg RECTAL DAILY [facility] Last Admin: 02/20/22 09:09 Dose: 10 mg Budesonide (Budesonide 1 Mg/2 Ml Nebu) 1 mg INHALATION RT-BID [facility] Last Admin: 02/20/22 07:32 Dose: 1 mg Calcium Acetate (Calcium Acetate 667 Mg Tab) 667 mg PO BID-W/MEALS [facility] Last Admin: 02/20/22 17:45 Dose: 667 mg Calcium Carbonate/Glycine (Calcium Carbonate 500 Mg Chewable) 1,000 mg PO Q4HR PRN PRN Reason: Dyspepsia Last Admin: 01/31/22 14:29 Dose: 1,000 mg Chlorhexidine Gluconate (Chlorhexidine Gluconate 15 Ml Cup) 15 ml MUCOUS MEM BID [facility] Last Admin: 02/20/22 20:33 Dose: 15 ml Collagenase (Collagenase 250 Unit/Gm Ointment 30 Gm Tube) 1 applic TOPICAL DAILY [facility]; Protocol Last Admin: 02/20/22 09:20 Dose: 1 applic Darbepoetin Mann (Darbepoetin Mann 60 Mcg/0.3 Ml Syringe) 60 mcg SQ Q7D [facility] Last Admin: 02/18/22 18:34 Dose: 60 mcg Dextrose/Water (Dextrose 50% Syringe 50 Ml) 25 ml IVP PER PROTOCOL PRN; Protocol PRN Reason: Hypoglycemia Last Admin: 02/06/22 18:11 Dose: 25 ml Dextrose/Water (Dextrose 50% Syringe 50 Ml) 50 ml IVP PER PROTOCOL PRN; Protocol PRN Reason: Hypoglycemia Propofol 1,000 mg/ IV Solution 100 mls @ 4.08 mls/hr IV .Q24H [facility]; Protocol Last Titration: 02/18/22 10:06 Dose: 0 mcg/kg/min, 0 mls/hr Metronidazole 500 mg/ IV (Solution) 100 mls @ 100 mls/hr IVPB Q8HR [facility]; Protocol Last Admin: 02/20/22 17:46 Dose: 100 mls/hr Cefepime HCl 1 gm/ Sodium (Chloride) 50 mls @ 12.5 mls/hr IVPB Q12HR [facility] Last Admin: 02/20/22 09:16 Dose: 12.5 mls/hr Norepinephrine Bitartrate 32 (mg/ Sodium Chloride) 250 mls @ 3.246 mls/hr IV .Q24H [facility]; Protocol Last Titration: 02/20/22 18:42 Dose: 0.01 mcg/kg/min, 0.649 mls/hr Anidulafungin 100 mg/ Sodium (Chloride) 100 mls @ 84 mls/hr IVPB DAILY [facility]; Protocol Last Admin: 02/20/22 09:12 Dose: 84 mls/hr Insulin Aspart (Insulin Aspart (Novolog) 100 Unit/Ml Vial) 0 unit SQ Q6HR [facility]; Protocol Last Admin: 02/20/22 18:02 Dose: Not Given Insulin Detemir (Insulin Detemir (Levemir) 100 Unit/Ml Syr) 14 unit SQ HS [facility] Last Admin: 02/19/22 20:33 Dose: 14 unit Lactulose (Lactulose 20 Gm/30 Ml Cup) 30 gm PO BID [facility] Last Admin: 02/20/22 20:33 Dose: 30 gm Levetiracetam (Levetiracetam 250 Mg Tab) 250 mg PO DAILY [facility] Last Admin: 02/20/22 09:10 Dose: 250 mg Metoprolol Tartrate (Metoprolol Tartrate 25 Mg Tab) 25 mg PO BID [facility] Last Admin: 02/20/22 20:33 Dose: 25 mg Miscellaneous Information (Potassium Replacement Protocol 1 Each Misc) 1 each MISCELLANE DAILY PRN; Protocol PRN Reason: Per Protocol Miscellaneous Information (Magnesium Replacement Protocol 1 Each Misc) 1 each MISCELLANE DAILY PRN; Protocol PRN Reason: Per Protocol Morphine Sulfate (Morphine Oral Soln 10 Mg/5 Ml Cup) 15 mg PO Q12H [facility] Last Admin: 02/20/22 12:59 Dose: 15 mg Naloxone HCl (Naloxone 0.4 Mg/Ml 1 Ml Vial) 0.2 mg IV Q2M PRN PRN Reason: Opioid Reversal Ondansetron HCl (Ondansetron 4 Mg/2 Ml Vial) 4 mg IVP Q8HR PRN PRN Reason: Nausea And Vomiting Last Admin: 02/02/22 08:41 Dose: 4 mg Pantoprazole Sodium (Pantoprazole 40 Mg/10 Ml Vial) 40 mg IVP BID [facility] Last Admin: 02/20/22 20:32 Dose: 40 mg Pregabalin (Pregabalin 100 Mg Cap) 100 mg PO BID [facility] Last Admin: 02/20/22 20:33 Dose: 100 mg Torsemide (Torsemide 20 Mg Tab) 40 mg PO DAILY [facility] Last Admin: 02/20/22 09:10 Dose: 40 mg Past medical history to include: COPD, diabetes, hypertension, hyperlipidemia, back problems, TB, atrial fibrillation, on Coumadin Social history: Smokes a pack a day for close to 50 years. Stop doing alcohol some time ago. Lives with his significant other Sandra. Does use a walker. 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 Conjunctiva normal. HEENT: External appearance of nose and ears normal, oral cavity dry, tracheostomy NECK: JVD not raised; masses not palpable. HEART: Heart sounds regular; mild edema. LUNGS: Respiratory rate increased; decreased breath sound, ABDOMEN: Soft, distended, nontender, liver spleen not palpable, no masses palpable. PEG tube. PSYCH: Unable to assess, patient lethargic DERMATOLOGICAL: Wound on right ankle lateral malleolus. Under dressing. Stage II coccygeal breakdown. See nursing notes INVESTIGATIONS, reviewed in the clinical context: February 20: WBC 10.5 hemoglobin 7.2 platelets 90 sodium 137 potassium 4 BUN 44 creatinine 3.18 February 15: WBC 13.9 hemoglobin 9.6 platelets 96 potassium 4.4 BUN 59 creatinine 4.21 procalcitonin 2.05 Acute hepatitis screen: Negative Complement C3 78, complement C4 19.6 February 11: Sodium 138 potassium 4.4 creatinine 4.19 Sputum: Stenostrophonas maltophilia, Lynda albicans Computed tomography scan abdomen and pelvis [February 06] 6 mm stone in the right renal collecting system. Some circumferential wall thickening of the ce cum and ascending colon. Distention of the rectum 7.5 cm with solid stool. EEG: Evidence of encephalopathy. No obvious epileptiform activity. 2-D echocardiogram: EF 60-65%. Renal ultrasound: Shows bilateral normal cortical medullary thickness. February 01: WBC 17.1 hemoglobin 14.8 UA: Blood large, leukoesterase moderate WBC 28 nitrite negative Lumbar spine CT: Anterior wedge compression deformity of L1. Multiple level DJD. 7 mm calculus right renal pelvis. CT chest without contrast: Right lateral eighth through 10th rib fractures with associated gas trace hemothorax right lower lobe pulmonary contusion/atelectasis. Patchy) disease left upper lobe. WBC 25.8 hemoglobin 14.1 platelets 217 INR greater than 10 sodium 131 potassium 3.9. 24 creatinine 1.8 to EKG tracing personally reviewed by me-atrial flutter. Rate 132 Foot/Lumbar/sacral coccyx: Spondylitic changes. No fracture. Chest x-ray film personally reviewed by me-clinically. Possible hyperinflation Assessment and plan: -Coumadin toxicity. INR greater than 10. On presentation: 10 mg vitamin K in the ER. Hemoptysis on presentation. Coumadin resumed on February 05.. - right lung contusion.-Secondary to fall. hemoptysis on presentation -Pneumonia, secondary to Stenostrophonas maltophilia, Lynda albicans: Slow to respond IV cefepime, IV anidulafungin -Sepsis with positive blood cultures MSSA, likely source right ankle. From January 31. IV cefepime. February 04 blood culture negative -Acute hypoxic respiratory failure, multifactorial: ventilator support,: Slow to respond Patient intubated on February 05 -Acute COPD exacerbation, with chronic bronchitis component in a current smoker: Slow to respond DuoNeb. Nebulized Pulmicort. Mucinex. -Chronic nicotine dependence, cigarette smoker Nicotine patch -Paroxysmal atrial flutter,: Back in sinus rhythm Lopressor 50 mg 3 times a day. 2-D echocardiogram unremarkable. Oral amiodarone Coumadin started on February 05 -Possible CK D with possible acute component. creatinine was 0.8 in April 2019. Renal ultrasound unremarkable. UA shows trace protein. IV fluids.. -Acute kidney injury, ATN, likely cardiorenal syndrome.: Not improving Follow with nephrology. Daily Hemodialysis started February 09 -Acute right-sided 8-10 ribs fracture secondary to fall K pad -Diabetes mellitus type 2, chronically on oral hypoglycemic Sliding scale insulin. Levemir 14 units daily at bedtime -Diabetic peripheral neuropathy Decreased dose of Lyrica in the setting of renal failure. 100 mg twice a day -Chronic low back pain: MS Contin 15 mg every 12, [place] 7.5 twice a day when necessary -Anxiety depression not otherwise specified Wellbutrin XL 100 mg twice a day -Hyperlipidemia Lipitor 40 mg daily at bedtime -Right ankle lateral, diabetic wound, stage II acute. Wound culture positive for Streptococcus agalactiae and Staphylococcus aureus. IV Ancef initially. Follow with ID Patient has poor distal pulses. February 01 wound was debrided by Dr. Ibarra. Clean base. -Acute L1 30% wedge fracture secondary to fall LSO brace. Be followed by Dr. Damon -Acute delirium multifactorial. Slow to respond -Acute ileus, NG tube for decompression.; clamped.: Corrected Being followed by surgery. -Possible colitis /fistula on computed tomography scan. IV Flagyl. Cefepime. Followed by surgery . IV propofol, IV norepinephrine. IV Flagyl,/IV cefepime/IV anidulafungin. Has a PEG tube. Tracheostomy hemodialysis per nephrology.
[2022-02-20 20:46] LABS: Glucose,Whole Blood 121 mg/dL (70-110)
[2022-02-20] MEDS: INSULIN DETEMIR (LEVEMIR) 100 UNIT/ML SYR SQ SCH (21:33)
[2022-02-20 23:30] LABS: Glucose,Whole Blood 127 mg/dL (70-110)
[2022-02-21] MEDS: INSULIN ASPART (NovoLOG) 100 UNIT/ML VIAL SQ SCH ×4 (00:12→18:37)
[2022-02-21 05:34] LABS: Glucose,Whole Blood 119 mg/dL (70-110)
[2022-02-21 06:02] LABS: ABG Base Excess 0.6 mmol/L; ABG HCO3 26 mmol/L (21-25); ABG Oxygen Saturation 91.2 % (94-97); ABG PCO2 47 mmHg (35-45); ABG PH 7.36 (7.35-7.45); ABG PO2 63 mmHg (83-108); ABG TCO2 28 mmol/L (19-24)
[2022-02-21 06:09] LABS: Anisocytosis Moderate; Basophils # (A) 0.1 k/uL (0-0.2); Basophils % (A) 1 %; Eosinophils # (A) 0.2 k/uL (0-0.7); Eosinophils % (A) 2 %; HGB 7.5 gm/dL (13.0-17.5); Hypochromasia Marked; Lymphocytes # (A) 0.9 k/uL (1.0-4.8); Lymphocytes % (A) 9 %; MCH 29.7 pg (25.0-35.0); MCHC 29.8 g/dL (31.0-37.0); MCV 99.5 fL (80.0-100.0); Macrocytosis Moderate; Mean Platelet Volume 10.5; Monocytes # (A) 0.5 k/uL (0-1.0); Monocytes % (A) 5 %; Neutrophils # (A) 8.1 k/uL (1.3-7.7); Neutrophils % (A) 80 %; Platelet Count 134 k/uL (150-450); RBC 2.51 m/uL (4.30-5.90); RDW 20.2 % (11.5-15.5); WBC 10.1 k/uL (3.8-10.6)
[2022-02-21 06:10] LABS: Calcium 7.7 mg/dL (8.4-10.2); Potassium 4.5 mmol/L (3.5-5.1)
[2022-02-21] MEDS: CALCIUM ACETATE 667 MG TAB PO SCH (06:32)
[2022-02-21] MEDS: IPRATROPIUM-ALBUTEROL 3 ML NEB INHALATION SCH ×4 (07:22→19:22)
[2022-02-21] MEDS: BUDESONIDE 1 MG/2 ML NEBU INHALATION SCH ×2 (07:22→19:22)
--- NOTE | 2022-02-21 08:58 | P.PN ---
Subjective Patient is seen in follow-up for acute kidney injury. Started on hemodialysis 02/09/2022. Intubated. On low-dose Levophed. Tube feeds held due to ileus. Vital signs are stable. On Levophed. General: Resting in bed. HEENT: Tracheostomy noted. LUNGS: Breath sounds decreased. HEART: Rate and Rhythm are regular. ABDOMEN: Soft, no distention. EXTREMITITES: Trace edema. Objective - Vital Signs Vital signs: Vital Signs Temp 98.6 F 02/21/22 04:00 Pulse 115 H 02/21/22 07:31 Resp 24 02/21/22 07:00 BP 101/61 02/21/22 07:00 Pulse Ox 93 L 02/21/22 07:00 FiO2 60 02/21/22 07:20 Intake & Output 02/20/22 02/21/22 02/21/22 18:59 06:59 18:59 Intake Total 1492.560 385.118 18 Output Total 526 435 0 Balance 966.560 -49.882 18 Weight 156 kg 158 kg Intake: IV 566 366 18 0.9% Sodium Chloride @ 180 180 15 10mls/hr Anidulafungin 100 mg In 100 Sodium Chloride 0.9% 100 ml @ 84 mls/hr IVPB DAILY [facility] Rx#:[id number] Cefepime 1 gm In Sodium 50 50 Chloride 0.9% 50 ml @ 12. 5 mls/hr IVPB Q12HR [facility] Rx#:[id number] Pressure bags 36 36 3 metroNIDAZOLE-NS PMX 500 200 100 mg In Saline 1 100ml.bag @ 100 mls/hr IVPB Q8HR [facility] Rx#:[id number] Intake, IV Titration 96.560 19.118 Amount Norepinephrine 32 mg In 96.560 19.118 Sodium Chloride 0.9% 218 ml @ 0.05 MCG/KG/MIN 3. 246 mls/hr IV .Q24H [facility] Rx#:[id number] Tube Feeding 390 Hemodialysis 350 Other 90 Output: Gastric Drainage 500 400 Urine 25 35 0 Stool 1 Other: Voiding Method Indwelling Catheter Indwelling Catheter ABP, PAP, CO, CI - Last Documented Arterial Blood Pressure 116/55 - Labs CBC & Chem 7: 02/21/22 05:34 02/21/22 05:34 Labs: Abnormal Lab Results - Last 24 Hours (Table) 02/20/22 02/20/22 02/20/22 Range/Units 12:15 17:52 20:44 RBC (4.30-5.90) m/uL Hgb (13.0-17.5) gm/dL Hct (39.0-53.0) % MCHC (31.0-37.0) g/dL RDW (11.5-15.5) % Plt Count (150-450) k/uL Neutrophils # (1.3-7.7) k/uL Lymphocytes # (1.0-4.8) k/uL ABG pCO2 (35-45) mmHg ABG pO2 (83-108) mmHg ABG HCO3 (21-25) mmol/L ABG Total CO2 (19-24) mmol/L ABG O2 Saturation (94-97) % BUN (9-20) mg/dL Creatinine (0.66-1.25) mg/dL Glucose (74-99) mg/dL POC Glucose (mg/dL) 144 H 129 H 121 H (70-110) mg/dL Calcium (8.4-10.2) mg/dL 02/20/22 02/21/22 02/21/22 Range/Units 23:28 05:31 05:34 RBC 2.51 L (4.30-5.90) m/uL Hgb 7.5 L (13.0-17.5) gm/dL Hct 25.0 L (39.0-53.0) % MCHC 29.8 L (31.0-37.0) g/dL RDW 20.2 H (11.5-15.5) % Plt Count 134 L (150-450) k/uL Neutrophils # 8.1 H (1.3-7.7) k/uL Lymphocytes # 0.9 L (1.0-4.8) k/uL ABG pCO2 (35-45) mmHg ABG pO2 (83-108) mmHg ABG HCO3 (21-25) mmol/L ABG Total CO2 (19-24) mmol/L ABG O2 Saturation (94-97) % BUN (9-20) mg/dL Creatinine (0.66-1.25) mg/dL Glucose (74-99) mg/dL POC Glucose (mg/dL) 127 H 119 H (70-110) mg/dL Calcium (8.4-10.2) mg/dL 02/21/22 02/21/22 Range/Units 05:34 05:56 RBC (4.30-5.90) m/uL Hgb (13.0-17.5) gm/dL Hct (39.0-53.0) % MCHC (31.0-37.0) g/dL RDW (11.5-15.5) % Plt Count (150-450) k/uL Neutrophils # (1.3-7.7) k/uL Lymphocytes # (1.0-4.8) k/uL ABG pCO2 47 H (35-45) mmHg ABG pO2 63 L (83-108) mmHg ABG HCO3 26 H (21-25) mmol/L ABG Total CO2 28 H (19-24) mmol/L ABG O2 Saturation 91.2 L (94-97) % BUN 48 H (9-20) mg/dL Creatinine 3.24 H (0.66-1.25) mg/dL Glucose 112 H (74-99) mg/dL POC Glucose (mg/dL) (70-110) mg/dL Calcium 7.7 L (8.4-10.2) mg/dL Microbiology - Last 24 Hours (Table) 02/15/22 06:05 Blood Culture - Final Blood No Growth after 144 hours 02/20/22 15:40 Fungal Culture - Preliminary Bronchoalviolar Lavage - Right 02/20/22 15:40 Bronchial Washings Culture - Preliminary Bronchoalviolar Lavage - Right 02/20/22 15:40 Acid Fast Bacilli Culture - Preliminary Bronchoalviolar Lavage - Right 02/14/22 04:33 Blood Culture - Final Blood No Growth after 144 hours Assessment and Plan Plan: Assessment: 1. Acute kidney injury secondary to ATN secondary to septic shock. Started on hemodialysis 02/09/2022. Oliguric. Creatinine in April 2019 was 0.8. Creatinine was as low as 1.62 this admission. No hydronephrosis noted on CAT scan. 2. MSSA bacteremia with likely source being right foot ulcer. Also component of pneumonia. ID following. On antibiotics. Also on antifungal. 3. A. fib. Cardiology following. On amiodarone and beta donovan. 4. Metabolic acidosis secondary to acute kidney injury. Improved. 5. Diabetes mellitus. 6. Hyperphosphatemia secondary to acute kidney injury. On PhosLo. 7. Volume overload. Improved with ultrafiltration. Status post bronchoscopy 02/20/2022 with removal of mucous plugs and bronchioloalveolar lavage. 8. Anemia. Rule out iron deficiency. On Aranesp. Plan: Hemodialysis today. Stop Demadex as patient has no urine output. Resume tube feeds when cleared by surgery. Wean FiO2 and vasopressors. Continue to monitor for renal recovery. Serologies negative except C3 slightly low. Hold PhosLo as patient's feeds are held. Will resume once feeds are resumed. Check iron studies.
--- NOTE | 2022-02-21 09:06 | P.PN ---
Subjective Progress Note Date: 02/21/22 This is a extremely debilitated 61-year-old male patient who was admitted to the hospital on 01/31/2022 because of a fall and limited hemoptysis. The patient is known to have a combination of issues including diabetes mellitus and diabetic peripheral neuropathy and the patient has had previous episodes of falls and he has issues with chronic atrial flutter maintained on long-term anticoagulation with warfarin. He is morbidly obese. He has hypertension and hyperlipidemia as comorbid conditions along with chronic kidney disease. He is morbidly obese. He has history of COPD and is a chronic smoker. He comes in to the hospital after he had a fall at home. He was the bathroom and he slept and he landed on his left chest. Here in the hospital, the patient was found to be Coumadin toxic and his INR was above 10. He did have some limited hemoptysis and coffee-ground emesis without any melanotic stools. No abdominal pain. He was noted to have a large ulcer over the right ankle/malleolus area which is a chronic wound. Immediately the patient was given vitamin K. This computed tomography scan of the chest shows some right lateral eighth through 10th rib fractures with trace amount of right-sided pleural effusion and right basilar atelectasis related to underlying pulmonary contusion. No evidence of any pneumothorax. Some limited patchy airspace disease in the left upper lobe probably inflammatory in the same time the patient had dilated pulmonary arteries indicating possibility of pulmonary hypertension and a fluid and gas- filled distended stomach. I noted the patient has not had a CAT scan of the brain and a CAT scan was done that showed no acute intracranial process. There was a remote left occipital lobe injury along with some nonspecific white matter changes secondary to chronic microangiopathy. This computed tomography scan of the lumbar spine showed acute anterior wedge compression deformity of L1 vertebral body with a 30% loss in height along with multilevel degenerative disc changes and a 7 mm In the right pelvis. Patient was already seen by general surgery and orthopedic surgery. Lumbar spine x-ray that was done on 2021 showed no acute fracture. The patient was also seen by vascular surgery for a right lateral foot wound and this is a stage II wound 8.5 x 4 cm in size. Debridement was done by vascular surgery. On 02/16/2022, I'm seeing the patient for a follow-up. I saw this patient initially at time of admission and the patient had a prolonged hospitalization related to his comorbid conditions and the patient was ultimately intubated and placed on a mechanical ventilator and the plan is for today to proceed with a tracheostomy tube insertion as the patient had prolonged respiratory failure. This morning, the patient is sedated and the patient is receiving propofol at a rate of 20 mcg/kg per minute and is quite successful mechanical ventilator. He is on assist-control mode of mechanical ventilation at the rate of 24 with a tidal volume of 500 and FiO2 of 40% and a PEEP of 5. Blood gases from today shows a pH of 7.41 with a pCO2 of 40 and pO2 of 75 and the most recent chest x- ray showed a large right-sided pleural effusion in addition to left-sided pleural effusion. The right lung was also consolidated and there was some volume loss and underlying pneumonia cannot be completely excluded. The most recent blood cultures have been negative. Sputum culture was positive for stenotrophomonas and the patient was covered with appropriate antibiotics and currently remains on IV cefepime that was originally started on 02/06/2022. I also noted that the patient is on a combination of Flagyl and he is taken also Eraxis per IDs recommendation. Note that in addition to pneumonia, the patient has right foot unstageable pressure ulcer with surrounding necrosis and cellulitis and there was no underlying osteomyelitis based on the x-ray. Patient is post debridement and a the wound culture showed a combination of MSSA and strep agalactiae. There was also Lynda that was identified and the patient's sputum and due to concerns of ongoing infection ID elected to put him on Eraxis and the patient's white cell count is gradually improved from as high as 26.5 down to 12.9 today. Hemodynamically, he is on pressors and the patient is requiring norepinephrine at a dose of 0.07 mcg/kg per minute. IV fluids are at KVO and the patient has significant amount of third spacing and edema in all 4 extremities more so in the upper extremities. He is receiving hemodialysis. Last hemodialysis session was on 02/14/2022 and the patient had a total of 2 L of ultrafiltration. Prior to that, and another liter was taken off on 02/12/2022. On today's blood work, the patient's white cell count of 12.9 with hemoglobin 8.7 and a platelet count of 106. Patient has sodium level of 134, BUN is 66 and creatinine is 4.6 and the rest of the electrodes are stable and the patient's serum bicarbs at 23. Albumin level is down to 1.9 with a total protein of 4.4. In terms of enteral feeding, the patient is receiving vital h igh protein and the currently the 2 feedings are on hold as the patient is going to undergo a tracheostomy tube insertion. He does have a arterial line catheter in his right upper extremity and the patient also has a right labia and triple- lumen catheter in place. Urine output is marginal in the order of 10-20 mL an hour. In the neck fluid balance has been +1.9 L over the past 24 hours. He is currently on the sinus rhythm. Anticoagulation is on hold as the patient is going to undergo a tracheostomy tube insertion. INR today is at 1.1. 02/17/2022, the patient is being seen for a follow-up. The patient is still intubated on a mechanical ventilator. He did not have his tracheostomy tube insertion yesterday due to scheduling problems. This morning, the patient remains sedated and the patient is on propofol running at 15 mcg/kg per minute. He is successful mechanical ventilator and he is arranging an assist-control mode at the rate of 24 with a tidal volume of 500 and FiO2 of 40% with a PEEP of 5. The blood gases from today showing a pH of 7.39 with a pCO2 of 41 and pO2 of 77. The FiO2 was at 40%. The chest x-ray from today is showing shows adequate positioning of the orotracheal tube. The patient also has large bilateral pleural effusions as mentioned yesterday and there is no major interval change compared to yesterday. Noted the patient underwent hemodialysis yesterday and he had an ultrafiltration of 3 L of fluid. His sputum was also positive for stenotrophomonas and the patient is covered with IV cefepime the pathology started on 02/07/2020 and he continues to be on the same antibiotics for now. He remains also on IV Eraxis and Flagyl per IDs recommendations. No significant orotracheal secretions. His symptoms the mechanical ventilator. Pulse ox dre und 94%. Awaiting a tracheostomy tube insertion today. He does have a unstageable wound in his coccyx area and the patient has a wound in his right ankle that was incised and drained and the cultures showed MSSA and strep agalactiae. ID is on the case for antibiotic management. In terms of hemod ynamics, the patient remains on IV fluids at KVO. He has there are no dose of norepinephrine running at 0.03 mcg/kg per minute. Urine output is minimal at this point in time and order of 15-20 mL an hour. In terms of his blood work from today, the patient has a white cell count of 14.5 with hemoglobin of 8.9 and a platelet count of 106 from yesterday. His sodium level is at 135, BUN is at 61 with a creatinine of 4.55. Potassium level is at 4.8 with a serum bicarb of 22. His most recent pro-calcitonin level from 02/15/2022 was 2.05 which remains elevated. He is receiving enteral feeding for nutritional support through his PEG tube. He was receiving vital high protein at the rate of 58 is an hour. The tube feeds were placed on hold in anticipation for a tracheostomy tube insertion. Overall fluid balance over the past 24 hours in the order of - 1.7 L the patient underwent hemodialysis with ultrafiltration. His cardiac rhythm remains sinus. His coagulation profile shows an INR of 1.0 with a PT of 11.2. 02/18/2022, the patient is being seen for a follow-up. This morning, the patient is on propofol at 25 mcg/kg per minute and we are the process of getting this patient a sedation holiday. Note that the patient was given a tracheostomy tube yesterday and the patient has a extra long Shiley tracheostomy tube #8. The patient remains on a mechanical ventilator. No significant leaks around the tracheostomy tube. The patient is an assist-control mode rate of 24 with a tid al volume of 500 and FiO2 of 40% with a PEEP of 5. His chest x-ray from yesterday was showing bilateral pleural effusions and a repeat chest x-ray will be obtained from today. Meanwhile, his blood gases from today is showing a pH of 7.41 with a pCO2 of 41 and pO2 of 75. He remains on a low dose n orepinephrine infusion at 0.07 mcg/kg per minute. IV fluids are currently at KVO. He underwent hemodialysis yesterday with a total ultrafiltration of 2 L. He remains on the same antibiotic coverage included IV cefepime, Flagyl and Eraxis. He does have an unstageable wound on his coccyx. He also has a ankle with that was incised and drained earlier. In terms of his blood work, the white cell count is at 10.6 and hemoglobin of 8.4 and platelet count of 88. His BUN is at 50 with a creatinine of 3.28. Sodium is 136 with a potassium level of 4.1 and a chloride of 99 with a bicarb of 24. INR is at 1.1. Calcium level is at 7.2 and albumin level is at 1.9. The patient is receiving vital high protein at the rate of 65 mL an hour which is goal and his serum albumin is at 1.9. The patient has no major orotracheal secretions. His cardiac rhythm remains sinus. His ankle wound is dressed. As for the coccyx, the patient has an unstageable wound and OptiForm has been applied. We'll discuss this case with general surgeon in regard to the possibility of debridement. 2021, the patient is off sedation. The patient was taken off sedation yesterday morning and he gradually improved in terms of his level of alertness. He is currently at the point where he is opening his eyes and is looking around. He is not following commands yet. No agitation. He remains successful mecha nical ventilator. He did encounter some desaturation yesterday and based on that, the patient the PEEP was increased up to 8 and the patient is currently on an FiO2 of 60%. The mechanical ventilated is also on assist control mode at the rate of 24 with a tidal volume of 500. Blood gases from today showed a pH of 7.31 with a pCO2 of 51 and pO2 of 76. The chest x-rays obviously abnormal and the patient has large bilateral pleural effusions. Tracheostomy tube is in a good location. This progression of pleural effusion and there may be also somewhat on loss and atelectasis on the right side. Underlying pneumonia cannot be completely excluded. The patient had stenotrophomonas and Lynda albicans in the sputum on 02/05/2022. Since then, the patient was covered with antibiotics and the patient remains on IV cefepime and he has been taking the cefepime since 02/06/2022. He is also on Flagyl and Eraxis per IDs recommendation regarding his issues with chronic wounds. He is afebrile. He is hemodynamically requiring low-dose pressors and the patient is on norepinephrine infusion at 0.05 mcg/kg per minute. The white cell count is at 10.6 and hemoglobin of 8 and a platelet count of 88. Electrolytes are normal sodium is at 138, bicarbonate 23, BUN is a 47 with a creatinine of 3.4. The patient underwent hemodialysis yesterday with a total of 2.5 L of fluid being removed. Liver function tests are normal, his pro-calcitonin level from 02/15/2022 was at 2.05 and albumin level is at 2.0. The patient is receiving enteral feeding for nutritional support and he remains on vital high protein at the rate of 55 mL an hour. He remains on Demadex and the urine output is essentially none for now. He remains on Levemir insulin 14 units at bedtime and a NovoLog for sliding scale coverage. 02/20/2022, I'm seeing the patient for a follow-up in the intensive care unit. The patient remains off sedation and he has been off propofol since the had his tracheostomy completed. The patient is opening up his eyes spontaneously. At times he gets restless and agitated. Over the last, his agitation has been manageable and he calms down immediately following this. He is not following any commands. He also remains on a mechanical ventilator. This morning, he is an assist-control mode with a rate of 24 and a tidal volume of 500 and FiO2 of 60% with a PEEP of 8. The morning chest x-ray from today shows volume loss in the right lung and the right lung is completely opacified and is predominantly due to atelectasis and there is also some pleural fluid bilaterally. I performe d a CAT scan of his chest yesterday and the CAT scan showed near complete opacification of the right lung with moderate amount of right-sided pleural effusion on the right and on the left. At the same time, there was significant amount of atelectasis in the right lung. There was diffuse anasarca and small volume ascites. There was also nodularity within the liver raising concern for liver cirrhosis. There was also healing right-sided rib fractures and indeterminant L1 vertebral body compression fracture. There was dilatation of the main pulmonary arteries seen on the CAT scan of the chest. The patient is to undergo hemodialysis today. Is undergoing hemodialysis on a daily basis with a goal of ultrafiltration of around 2-3 L if possible. The patient's hemoglobin today is at 7.2. His white count was attempted 0.5 with a platelet count of 90. The blood gases from today showed a pH of 7.31 with a pCO2 of 51 and a pO2 of 80. The BUN is at 44 with a creatinine of 3.1 and sodium level is at 137. No other significant events otherwise for now. He is afebrile. Blood cultures from 917 and 02/15/2022 were both negative. He is receiving enteral feeding for nutritional support. The patient is a PEG tube and the patient is receiving vital high protein at the rate of 65 mL an hour. I breathing child is very bad along with dizziness 60% and following commands now I is that he is neuropathy cannot walk respiratory 02/21/2022, I'm seeing the patient for a follow-up. The patient is still off sedation and this is his third day being off propofol. Neurologically, there is an obvious impairment. I'm going to ask neurology to reevaluate this patient. The patient opens his eyes, sticks out his tongue, move his eyebrows, looks around, goes back to sleep and all of these movements are nonpurposeful. He does have some facial twitching also. Unclear to me whether those are seizures. Note that his upper and lower extremities remain flaccid any mainly moves his neck and had, gives rotations to his neck and does some unusual facial features and following then he stops spontaneously. Unable to communicate. Unable to follow any simple commands. His last EEG was done on 02/11/2022 and there was no evidence of any seizure activity and the patient was seen by neurology during this current admission. The patient remains on a mechanical ventilator. He has a tracheostomy tube in place. Right lung was completely opacified and this was a combination of atelectasis and pleural effusion. For that reason, the patient undergoing almost daily hemodialysis. Furthermore, I performed a bronchoscopy on him yesterday and therapeutic airway suctioning was done with copious amount of respiratory secretions and mucous plugs were aspirated from the right lung. A follow-up chest x-ray still pending from today. Meanwhile, he remains an FiO2 of 60% with a PEEP of 8 and a tidal volume of 500 with a rate of 24. Blood gases from today show a pH of 7.36 with a pCO2 of 47 and pO2 of 63. The bronchioloalveolar lavage of the right lower lobe was collected and is also still pending for now. The white cell count is at 10 with a hemoglobin of 7.7 and platelet count 134. BUN is 48 with a creatinine of 3.2. Rest of the electrodes are normal. Antibiotics remain unchanged. Note that his previous sputum sample from 02/05/2022 was positive for stenotrophomonas and the patient was covered with appropriate antibiotics and infectious disease on the case. He is receiving wound care. He is receiving enteral feeding for nutritional support via his PEG tube and the patient is currently on with a mean vital high protein. Note that the patient was having difficulties with bowel movement despite being on laxatives. He did have some abdominal distention. A repeat x-ray of the abdomen was done yesterday. There was no significant abnormalities. There was colonic distention without any air-fluid level, could be potentially a component of ileus. The patient did have bowel movements following that as the patient was given GoLYTELY and he did have a liquidy bowel movement Objective - Vital Signs Vital signs: Vital Signs Temp 98.6 F 02/21/22 04:00 Pulse 115 H 02/21/22 07:31 Resp 24 02/21/22 07:00 BP 101/61 02/21/22 07:00 Pulse Ox 93 L 02/21/22 07:00 FiO2 60 02/21/22 07:20 Intake & Output 02/20/22 02/21/22 02/21/22 18:59 06:59 18:59 Intake Total 1492.560 385.118 18 Output Total 526 435 0 Balance 966.560 -49.882 18 Weight 156 kg 158 kg Intake: IV 566 366 18 0.9% Sodium Chloride @ 180 180 15 10mls/hr Anidulafungin 100 mg In 100 Sodium Chloride 0.9% 100 ml @ 84 mls/hr IVPB DAILY [facility] Rx#:[id number] Cefepime 1 gm In Sodium 50 50 Chloride 0.9% 50 ml @ 12. 5 mls/hr IVPB Q12HR [facility] Rx#:[id number] Pressure bags 36 36 3 metroNIDAZOLE-NS PMX 500 200 100 mg In Saline 1 100ml.bag @ 100 mls/hr IVPB Q8HR [facility] Rx#:[id number] Intake, IV Titration 96.560 19.118 Amount Norepinephrine 32 mg In 96.560 19.118 Sodium Chloride 0.9% 218 ml @ 0.05 MCG/KG/MIN 3. 246 mls/hr IV .Q24H [facility] Rx#:[id number] Tube Feeding 390 Hemodialysis 350 Other 90 Output: Gastric Drainage 500 400 Urine 25 35 0 Stool 1 Other: Voiding Method Indwelling Catheter Indwelling Catheter ABP, PAP, CO, CI - Last Documented Arterial Blood Pressure 116/55 - Exam GENERAL: BMI 39.6, intubated on a mechanical ventilator. The patient is following commands. He opens his eyes spontaneously. He grimaces to painful stimulation. At times, gets restless yet this is self-limiting and he calms down immediately following that.. Tracheostomy tube is in place without any evidence of air leak around the tracheostomy tube stoma. The patient is calm and comfortable and second is a mechanical ventilator. Head exam was generally normal. There was no scleral icterus or corneal arcus. Mucous membranes were moist. EYES: Pupils equal. Conjunctiva normal. HEENT: External appearance of nose and ears normal, oral cavity grossly normal. NECK: JVD not raised; masses not palpable. HEART: Heart sounds irregular; mild edema. LUNGS: decreased breath sound, prolonged expiration, coarse crackles. The breath sounds are diminished in lung bases bilaterally. ABDOMEN: Soft, distended, nontender, liver spleen not palpable, no masses palpable. The patient has extensive scrotal edema. DERMATOLOGICAL: Large wound around the lateral malleolus right foot Gangrene C hanges. The patient has evidence of deep tissue injury to his coccyx/buttocks area. MUSCULOSKELETAL:No Clubbing/cyanosis;muscles-grossly intact, increase in low back pain with movement NEUROLOGICAL: Patient is having unusual facial features where he rotates his neck and had, 6 his tongue, moves his eyebrows, some twitching of the face and all of these movements are nonpurposeful. No agitation, the patient withdraws to painful stimulation. He is not following commands yet. He opens his eyes spontaneously. No seizure activity has been noted. LYMPHATICS: No lymph nodes palpable in the axilla and neck. The patient has extensive edema in lower extremities and upper extremity is bilaterally. He has an arterial line in his right radial. - Labs CBC & Chem 7: 02/21/22 05:34 02/21/22 05:34 Labs: Abnormal Lab Results - Last 24 Hours (Table) 02/20/22 02/20/22 02/20/22 Range/Units 12:15 17:52 20:44 RBC (4.30-5.90) m/uL Hgb (13.0-17.5) gm/dL Hct (39.0-53.0) % MCHC (31.0-37.0) g/dL RDW (11.5-15.5) % Plt Count (150-450) k/uL Neutrophils # (1.3-7.7) k/uL Lymphocytes # (1.0-4.8) k/uL ABG pCO2 (35-45) mmHg ABG pO2 (83-108) mmHg ABG HCO3 (21-25) mmol/L ABG Total CO2 (19-24) mmol/L ABG O2 Saturation (94-97) % BUN (9-20) mg/dL Creatinine (0.66-1.25) mg/dL Glucose (74-99) mg/dL POC Glucose (mg/dL) 144 H 129 H 121 H (70-110) mg/dL Calcium (8.4-10.2) mg/dL 02/20/22 02/21/22 02/21/22 Range/Units 23:28 05:31 05:34 RBC 2.51 L (4.30-5.90) m/uL Hgb 7.5 L (13.0-17.5) gm/dL Hct 25.0 L (39.0-53.0) % MCHC 29.8 L (31.0-37.0) g/dL RDW 20.2 H (11.5-15.5) % Plt Count 134 L (150-450) k/uL Neutrophils # 8.1 H (1.3-7.7) k/uL Lymphocytes # 0.9 L (1.0-4.8) k/uL ABG pCO2 (35-45) mmHg ABG pO2 (83-108) mmHg ABG HCO3 (21-25) mmol/L ABG Total CO2 (19-24) mmol/L ABG O2 Saturation (94-97) % BUN (9-20) mg/dL Creatinine (0.66-1.25) mg/dL Glucose (74-99) mg/dL POC Glucose (mg/dL) 127 H 119 H (70-110) mg/dL Calcium (8.4-10.2) mg/dL 02/21/22 02/21/22 Range/Units 05:34 05:56 RBC (4.30-5.90) m/uL Hgb (13.0-17.5) gm/dL Hct (39.0-53.0) % MCHC (31.0-37.0) g/dL RDW (11.5-15.5) % Plt Count (150-450) k/uL Neutrophils # (1.3-7.7) k/uL Lymphocytes # (1.0-4.8) k/uL ABG pCO2 47 H (35-45) mmHg ABG pO2 63 L (83-108) mmHg ABG HCO3 26 H (21-25) mmol/L ABG Total CO2 28 H (19-24) mmol/L ABG O2 Saturation 91.2 L (94-97) % BUN 48 H (9-20) mg/dL Creatinine 3.24 H (0.66-1.25) mg/dL Glucose 112 H (74-99) mg/dL POC Glucose (mg/dL) (70-110) mg/dL Calcium 7.7 L (8.4-10.2) mg/dL Microbiology - Last 24 Hours (Table) 02/15/22 06:05 Blood Culture - Final Blood No Growth after 144 hours 02/20/22 15:40 Fungal Culture - Preliminary Bronchoalviolar Lavage - Right 02/20/22 15:40 Bronchial Washings Culture - Preliminary Bronchoalviolar Lavage - Right 02/20/22 15:40 Acid Fast Bacilli Culture - Preliminary Bronchoalviolar Lavage - Right 02/14/22 04:33 Blood Culture - Final Blood No Growth after 144 hours Assessment and Plan Plan: Acute hypercapnic respiratory failure, status post intubation and mechanical ventilation on 02/05/2022. The patient had prolonged respiratory failure and the patient currently has a tracheostomy tube in place inserted on 02/17/2022 and the patient has been off sedation for the past 24 hours. Neurologically, unchanged and the patient is not following any commands. Some nonpurposeful twitching and movement of the face is taken out of his tongue. Rule out underlying seizure activity. Another neurologic evaluation is to be done.. Complete opacification of the right lung and the patient has moderate-sized bilateral pleural effusion and significant amount of atelectasis in the right lung along with volume loss. Despite this finding, the patient is oxygenating and ventilating adequately. Bronchoscopy was done yesterday and therapeutic it was suctioning and removal of mucous plugs from the right lung was completed yesterday. Repeat chest x-ray from today shows improved aeration of the right lung. The volume is still on the right lung and there is still a pleural effusion on the right in addition to pleural effusion on the left. We'll maintain daily dialysis. Awaiting results of the bronchioloalveolar lavage. Altered mentation, encephalopathy, questionably seizures Status post PEG tube placement 02/12/2022. The patient is receiving enteral feeding for nutritional support with vital high protein. Stenotrophomonas tracheobronchitis/bronchopneumonia, based on his sputum culture that was obtained on 02/05/2022. Methicillin sensitive staph. aureus bacteremia, based on the blood cultures was obtained on 02/01/2022. Repeat cultures on 02/14/2022 and 02/15/2022 were negative. Repeat blood culture on 02/04/2022 was negative. The patient also had staph aureus in the in the right ankle wound in combination with strep agalactiae, group B. The most recent blood cultures from 02/15/2020 to 2021 were negative. Acute metabolic encephalopathy, currently on no sedation and we are monitoring his mental status, the patient is currently off sedation Acute kidney injury, patient was started on hemodialysis. Daily hemodialysis and ultrafiltration is being done. We'll try to optimize her volume status. The patient continues to have significant amount of edema in his right scrotum. The patient also has moderate-sized bilateral pleural effusions. The patient continues to have daily dialysis Right-sided rib fractures, traumatic in nature involving 8, 9 and 10th rib closed fall. right basilar pulmonary contusion, post fall Anterior wedge compression deformity level vertebral body with a 30% compression and multilevel degenerative disc disease Limited hemoptysis or contusion exacerbated by Coumadin toxicity , recovered COPD and chronic smoking Coumadin toxicity with an INR above 10 given vitamin K, recovered Ileus post NG tube insertion, recovered, the patient was given GoLYTELY and the patient had an adequate bowel movement activity enteral feeding to be restarted today History of frequent falls, not a good candidate for anticoagulants delerium, change in the mental status COPD Chronic bronchitis/reactive to chronic smoking History of chronic atrial flutter maintained on metoprolol and anticoagulation with warfarin Chronic kidney disease, likely stage III Stage II right ankle wound measuring 8.5 x 4 cm in size and surgical debridement has been done Unstageable deep tissue injury involving the Buttock bilateral obesity Possible obstructive sleep apnea Diabetic peripheral neuropathy Chronic back pain Degenerative arthritis Hyperlipidemia History of chronic back pain and degenerative arthritis History of renal calculus measuring 7 mm in size in the right renal pelvis Plan continue with the supportive care Continue ventilator support and no vent changes Bronchoscopy was done and there is some improved aeration on the right lung. Ne vertheless his ongoing volume loss and better pleural effusion more so on the right. Continue daily dialysis Awaiting results of the bronchioloalveolar lavage Continue the same antibiotic coverage Neurologically the patient continues to be impaired. Ask another neurology evaluation. Restart enteral feeding for nutritional support. Patient already has a PEG tube in place, continue enteral feeding for nutritional support Levemir Continue wound care and will discuss the findings with the general surgeon and see the patient will be a candidate for more debridement of his deep tissue injury of his buttocks bilaterally Cardiac rhythm is sinus with PACs Levemir insulin 14 units at bedtime along with a sliding scale coverage Very poor prognosis based on the above-mentioned comorbidities. We'll discuss today out, the family including the brother and the girlfriend and we'll attempt a at least a change in her CODE STATUS. Evaluation that was done and more than 30 minutes. Time with Patient: Greater than 30
--- NOTE | 2022-02-21 09:18 | XR ---
EXAMINATION TYPE: XR chest 1V DATE OF EXAM: 02/21/2022 COMPARISON: 02/20/2022 HISTORY: SOB, Follow Up FINDINGS: Indwelling tubes and catheters are unchanged. Persistent near complete opacification right hemithorax although appearance is slightly improved. Per sistent left basilar atelectasis, infiltrate and/or effusion. Stable appearance of the cardio-mediastinal structures at this time. Pleural effusion unchanged. IMPRESSION: 1. Persistent near complete opacification right hemithorax although appearance is slightly improved. Persistent left basilar atelectasis, infiltrate and/or effusion.
[2022-02-21] MEDS: metroNIDAZOLE-NS PMX 500 MG in SALINE 1 100ML.BAG IVPB SCH ×2 (10:30→16:01)
[2022-02-21] MEDS: LACTULOSE 20 GM/30 ML CUP PO SCH ×2 (10:30→20:06)
[2022-02-21] MEDS: AMIODARONE 200 MG TAB PO SCH ×2 (10:31→20:06)
[2022-02-21] MEDS: PANTOPRAZOLE 40 MG/10 ML VIAL IVP SCH ×2 (10:31→20:05)
[2022-02-21] MEDS: PREGABALIN 100 MG CAP PO SCH ×2 (10:31→20:05)
[2022-02-21] MEDS: APIXABAN 2.5 MG TABLET PO SCH ×2 (10:31→20:05)
[2022-02-21] MEDS: CEFEPIME 1 GM in SODIUM CHLORIDE 0.9% 50 ML IVPB SCH ×2 (10:31→20:05)
[2022-02-21] MEDS: METOPROLOL TARTRATE 25 MG TAB PO SCH ×2 (10:31→20:06)
[2022-02-21] MEDS: levETIRAcetam 250 MG TAB PO SCH (10:32)
[2022-02-21] MEDS: bisacodyL 10 MG SUPP RECTAL SCH (10:32)
[2022-02-21] MEDS: COLLAGENASE 250 UNIT/GM OINTMENT 30 GM TUBE TOPICAL SCH (10:37)
[2022-02-21] MEDS: CHLORHEXIDINE GLUCONATE 15 ML CUP MUCOUS MEM SCH ×2 (10:38→20:05)
--- NOTE | 2022-02-21 11:00 | P.PN ---
Subjective Progress Note Date: 02/21/22 Principal diagnosis: Upper GI bleed Patient remains on the ventilator. He is more awake with the sedation being held. He is moving all extremities but without purposeful movements. He did have a harder stool this morning followed by some liquid stool. White blood cell count is normal. Tube feeds have remained on hold. Objective - Vital Signs Vital signs: Vital Signs Temp 98.6 F 02/21/22 04:00 Pulse 115 H 02/21/22 07:31 Resp 24 02/21/22 07:00 BP 101/61 02/21/22 07:00 Pulse Ox 93 L 02/21/22 07:00 FiO2 60 02/21/22 07:20 Intake & Output 02/20/22 02/21/22 02/21/22 18:59 06:59 18:59 Intake Total 1492.560 385.118 18 Output Total 526 435 0 Balance 966.560 -49.882 18 Weight 156 kg 158 kg Intake: IV 566 366 18 0.9% Sodium Chloride @ 180 180 15 10mls/hr Anidulafungin 100 mg In 100 Sodium Chloride 0.9% 100 ml @ 84 mls/hr IVPB DAILY [facility] Rx#:[id number] Cefepime 1 gm In Sodium 50 50 Chloride 0.9% 50 ml @ 12. 5 mls/hr IVPB Q12HR [facility] Rx#:[id number] Pressure bags 36 36 3 metroNIDAZOLE-NS PMX 500 200 100 mg In Saline 1 100ml.bag @ 100 mls/hr IVPB Q8HR [facility] Rx#:[id number] Intake, IV Titration 96.560 19.118 Amount Norepinephrine 32 mg In 96.560 19.118 Sodium Chloride 0.9% 218 ml @ 0.05 MCG/KG/MIN 3. 246 mls/hr IV .Q24H [facility] Rx#:[id number] Tube Feeding 390 Hemodialysis 350 Other 90 Output: Gastric Drainage 500 400 Urine 25 35 0 Stool 1 Other: Voiding Method Indwelling Catheter Indwelling Catheter ABP, PAP, CO, CI - Last Documented Arterial Blood Pressure 116/55 - Exam Tracheostomy site without signs of infection or bleeding Abdomen soft nondistended, PEG tube in place, nontender - Labs CBC & Chem 7: 02/21/22 05:34 02/21/22 05:34 Labs: Abnormal Lab Results - Last 24 Hours (Table) 02/20/22 02/20/22 02/20/22 Range/Units 12:15 17:52 20:44 RBC (4.30-5.90) m/uL Hgb (13.0-17.5) gm/dL Hct (39.0-53.0) % MCHC (31.0-37.0) g/dL RDW (11.5-15.5) % Plt Count (150-450) k/uL Neutrophils # (1.3-7.7) k/uL Lymphocytes # (1.0-4.8) k/uL ABG pCO2 (35-45) mmHg ABG pO2 (83-108) mmHg ABG HCO3 (21-25) mmol/L ABG Total CO2 (19-24) mmol/L ABG O2 Saturation (94-97) % BUN (9-20) mg/dL Creatinine (0.66-1.25) mg/dL Glucose (74-99) mg/dL POC Glucose (mg/dL) 144 H 129 H 121 H (70-110) mg/dL Calcium (8.4-10.2) mg/dL 02/20/22 02/21/22 02/21/22 Range/Units 23:28 05:31 05:34 RBC 2.51 L (4.30-5.90) m/uL Hgb 7.5 L (13.0-17.5) gm/dL Hct 25.0 L (39.0-53.0) % MCHC 29.8 L (31.0-37.0) g/dL RDW 20.2 H (11.5-15.5) % Plt Count 134 L (150-450) k/uL Neutrophils # 8.1 H (1.3-7.7) k/uL Lymphocytes # 0.9 L (1.0-4.8) k/uL ABG pCO2 (35-45) mmHg ABG pO2 (83-108) mmHg ABG HCO3 (21-25) mmol/L ABG Total CO2 (19-24) mmol/L ABG O2 Saturation (94-97) % BUN (9-20) mg/dL Creatinine (0.66-1.25) mg/dL Glucose (74-99) mg/dL POC Glucose (mg/dL) 127 H 119 H (70-110) mg/dL Calcium (8.4-10.2) mg/dL 02/21/22 02/21/22 Range/Units 05:34 05:56 RBC (4.30-5.90) m/uL Hgb (13.0-17.5) gm/dL Hct (39.0-53.0) % MCHC (31.0-37.0) g/dL RDW (11.5-15.5) % Plt Count (150-450) k/uL Neutrophils # (1.3-7.7) k/uL Lymphocytes # (1.0-4.8) k/uL ABG pCO2 47 H (35-45) mmHg ABG pO2 63 L (83-108) mmHg ABG HCO3 26 H (21-25) mmol/L ABG Total CO2 28 H (19-24) mmol/L ABG O2 Saturation 91.2 L (94-97) % BUN 48 H (9-20) mg/dL Creatinine 3.24 H (0.66-1.25) mg/dL Glucose 112 H (74-99) mg/dL POC Glucose (mg/dL) (70-110) mg/dL Calcium 7.7 L (8.4-10.2) mg/dL Microbiology - Last 24 Hours (Table) 02/20/22 15:40 Gram Stain - Preliminary Bronchoalviolar Lavage - Right Bronchial Washings Culture - Preliminary 02/15/22 06:05 Blood Culture - Final Blood No Growth after 144 hours 02/20/22 15:40 Fungal Culture - Preliminary Bronchoalviolar Lavage - Right 02/20/22 15:40 Acid Fast Bacilli Culture - Preliminary Bronchoalviolar Lavage - Right Assessment and Plan (1) Ileus Narrative/Plan: Patient seems to be improving from a GI standpoint. Will resume tube feeds at 25 mL per hour. Continue lactulose twice a day. Continue supportive care per pulmonary. We'll follow. Current Visit: Yes Status: Acute Code(s): K56.7 - ILEUS, UNSPECIFIED SN OMED Code(s): 071446659
[2022-02-21 11:35] LABS: Glucose,Whole Blood 115 mg/dL (70-110)
[2022-02-21] MEDS: MORPHINE ORAL SOLN 10 MG/5 ML CUP PO SCH (12:54)
[2022-02-21] MEDS: ANIDULAFUNGIN 100 MG in SODIUM CHLORIDE 0.9% 100 ML IVPB SCH (12:55)
--- NOTE | 2022-02-21 16:04 | P.PN ---
Progress Note - Text Progress Note Date: 02/21/22 This is a 61-year-old patient who follows with Dr. Sridhar Chan. Chronic stable medical conditions include diabetes, hypertension, hyperlipidemia, chronic low back problems, cigarette smoker. At the baseline uses a walker. Patient slipped in the bathroom falling on his buttock. Was not able to get up. By the EMS report he had fallen 24 hours prior to the picking him up. Patient been complaining of pain in the right rib cage in the lower back. X-ray was negative for fracture. Patient continued to have significant pain especially with deep breathing. Patient also had a congestive cough and wheezing. Some bloody sputum. Denies any fever and chills. Patient also complaining of urina ry retention and requesting a Shepard catheter. at the bedside. No fever no chills. Orthopedics consulted for the same. Patient normally has a bowel movement once a week. Patient also has a wound on the right foot lateral part of the ankles for about a week. Ischemic changes. From rubbing against a bedpost. Patient's INR in the ER was greater than 10. Was given vitamin K. 10 mg Patient bit with Coumadin toxicity, given vitamin K, acute COPD exacerbation, uncontrolled atrial flutter put on Lopressor, right chest wall pain. Computed tomography scan lumbar spine and chest was ordered. Large wound on the right lateral malleolus-ID and vascular consulted.. IV cefepime. February 01: Patient yesterday to see refused his computed tomography scan of the chest and lumbar spine. Done today. Right-sided rib fractures, pulmonary contusion confirm. L1 vertebral body 30% wedge compression fracture. Patient's girlfriend the bedside. It was discussed in detail with her. Patient wanting again and again to pull out his NG tube. Requests the to stay with the patient. Patient is also had the dark aspirate from the stomach for which she has NG tube. Surgery was consulted for the same. Also this morning right foot wound was debrided by Dr. Ibarra from vascular. Wound base was relatively clean. No undermining or tunneling. February 02: Delirious. NG tube to suction. Has been in restraints because point NG TUBE several times. Mumbling to himself. Dressing over the right ankle. Not in distress. Ileus. Chest x-ray showing right lower lobe/atelectasis. February 03: Hospital computer system was down. Patient remains delirious. Nasal cannula. Lethargic. Family the bedside. Antibiotics. A. fib uncontrolled. EEG evidence of metabolic encephalopathy. No clear-cut epileptiform activity. Started on Keppra by neurology. February 04: ICU: Girlfriend at the bedside. In atrial fibrillation uncontrolled. On IV Cardizem and IV amiodarone. NG tube to suction. Patient lethargic. Multiple breathing. 2 L. Oxygen. February 05: ICU. Atrial fibrillation better controlled this morning. Cardizem discontinued. Patient respiratory status worsened this morning and patient is intubated. FiO2 45 and a PEEP of 5. Atrial fibrillation, controlled. Drips include amiodarone, propofol, levo fed. Discussed with girlfriend the bedside. Understands prognosis guarded. February 06: ICU: Ventilated. FiO2 45 and a PEEP of 5. NG tube is clamped. On IV propofol. Sedated. Heart rate better controlled. Was started on Coumadin yesterday. Worsening renal function. Nephrology consulted. 02/07/2022 Patient is currently in the MICU and on mechanical ventilator. Tidal volume of 400, FiO2 40% and PEEP of 5. Patient is off pressor support today. Currently on propofol and is also on tube feeding. Chest x-ray showed stable exam with stable support lines and tubes. Correlate for congestive heart failure. Patient was given a dose of IV Lasix. Laboratory data showed WBC 18.4 hemoglobin 11.6 and platelets 458 Sodium 141 potassium 3.7 chloride 103 bicarb is 18 BUN 49 and creatinine 3.73 and calcium 7.3. INR is 2.2. Patient is being followed by nephrology cardiology and critical care team. 02/08/2022 Patient is currently on mechanical ventilator and sedated with propofol. Assist control with FiO2 40% and tidal volume of 400 and PEEP of 5. Patient is being continued on antibiotics above cefepime and Flagyl. Sputum gram stain gram-negative bacilli and Lynda. Chest x-ray today showed findings suggestive of slightly worsening CHF exacerbation as there is cardiomegaly with mild to moderate central venous congestion and small to moderate-sized bilateral pleural effusion. Laboratory test showed WBC increased to 23.6 hemoglobin 9.1 and platelets 162 INR 3.0 Sodium 139 potassium 4.3 chloride 113 bicarb is 40 BUN 54 and creatinine worsening to 4.36 February 09: I resumed the care of patient today ICU: Med: 40/5. Received vitamin K 5 mg IV to bring the INR down for dialysis catheter. Drips include bicarbonate, propofol, epinephrine. Patient is a stage II coccyx is ulcer. Plan is to change the NG tube to on G-tube today. For possible colitis/fistula on antibiotics. at the bedside. February 10: ICU. Ventilator 50/5. Hemodialysis catheter placed last night. Hemodialyzed yesterday and getting dialyzed today. Remains in atrial fibrillation heart rate uncontrolled. Getting up sedation holiday. Drips include bicarbonate and norepinephrine. Propofol currently held. 2 feeding at 46 mL an hour. Does open eyes. February 11: ICU. Ventilator. 50/5. Third day for hemodialysis. 1.5 L to be removed today. Back on propofol. Drips include bicarbonate, norepinephrine, propofol. On G-tube feeding. Patient back in sinus rhythm. Bag and tracheostomy to planning for next week. 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 IV antifungal started by ID. February 12: ICU: Ventilator: 40/5. Telemetry shows sinus rhythm. Drips include propofol and norepinephrine. On G-tube feeding. Discussed with the at the bedside. Understands prognosis guarded. IV antibiotics and antifungals. February 13: ICU: Ventilator: 40/5. PEG tube placed yesterday by Dr. Cornejo. Drips include bicarbonate, propofol, norepinephrine. Getting hemodialysis done today. February 14: ICU: Medicated. 2 feeding at 65 mL an hour. This included propofol and norepinephrine. Hemodialysis done today. Sinus rhythm. February 15: ICU: Ventilator: 40/5. 2 feeding at 65 mL an hour. Drips include propofol and norepinephrine. No hemodialysis today. at the bedside. Discussed. 02/16/2022 Patient seen and evaluated and follow-up continues to be in the ICU on mechanical ventilation with sedation with multiple medical consultations following. Patient is currently receiving hemodialysis and continues with a temporary dialysis catheter. Patient is still full code and overall prognosis remains extremely poor and guarded. Patient's FiO2 is 40% with a PEEP of 5. Patient also continues on antifungal along with cefepime and metronidazole with infectious disease following. Patient is sedated on propofol continues on Levophed as well. WBC is 12.9 with hemoglobin of 8.7, sodium is 134 with a potassium of 4.5 current creatinine is 4.69 with a BUN of 66. Patient is maintained on tube feedings and has received the PEG tubing is scheduled for tracheostomy tentatively today if OR available. Again overall prognosis remains extremely guarded. 02/17/2022 Patient continues to be in the ICU on mechanical vent and FiO2 remains 40% with a PEEP of 5. Patient continues on norepinephrine with multiple medical consultations following. Patient continues on propofol for sedation and also was maintained on hemodialysis almost daily. Patient continues on cefepime along with an antifungal and Flagyl with anxiety following sputum culture showing 16 oh troph ammonias maltophilia with Lynda most recent blood cultures have been negative. Patient is afebrile although WBC is elevated at 14.5 and hemoglobin is 8.9, BUN is 61 with a creatinine of 4.55, sodium is 135 and sodium bicarb tablets have been discontinued. Magnesium was 1.9. Plan is tentatively scheduled for tracheostomy with general surgery today post hemodialysis. Overall prognosis is extremely guarded. Chest x-ray shows continued bilateral pleural effusions with no significant change from previous day. Patient is maintained on tube feedings via PEG tube although on hold for surgery today 02/18/2022 Patient is seen and evaluated continues to be in the ICU with multiple medical consultations following. Patient is status post tracheostomy placement with Dr. Villegas yesterday evening and tolerating well with no leaks noted. Patient contin ues on FiO2 of 40% with a PEEP of 5. Patient undergoing sedation holiday and propofol was recently turned off. Patient is awake and opening eyes spontaneously although not following commands on exam. Patient is looking around the room and mouthing words with no comprehension. Patient with extensive wounds of the sacro-coccyx region that are currently unstageable and general surgery is following and may possibly require debridement of these areas. Patient is status post debridement of the right foot previously. Patient is maintained on antibiotics along with antifungal's and infectious di sease is following. Patient is afebrile and WBC is 10.6, hemoglobin is 8.4, patient is also with a BUN of 50 and creatinine is 3.78, magnesium is 1.8. Patient is being closely monitored by nephrology with a temporary site of the right femoral receiving daily dialysis. Patient continues on low-dose Levophed and working on weaning as tolerated. PEG tube feedings are at goal and tolerating. Overall prognosis remains extremely guarded. 02/19/2022 Patient is seen in follow-up this morning and has been off propofol since yesterday although continues to not follow commands. Multiple medical c onsultations following. Patient is status post recent tracheostomy and also PEG tube placement and has been resumed on tube feedings and tolerating at goal. Patient is continuing on hemodialysis with a right groin temporary catheter. Chest x-ray this morning shows some possible progression of pleural effusions and airspace disease or atelectasis especially in the right lung. Nursing staff questioning about anticoagulation and his Coumadin was on hold for tracheostomy and patient is being started on eliquis. Patient continues on antibiotics as well in the form of cefepime and Flagyl and antifungal's with anxiety following. Patient also continues on low-dose Levophed. Patient continues on mechanical ventilation via tracheostomy with an FiO2 of 60. Patient scheduled to receive dialysis again today. General surgery is following and may be required for debridement of the decubitus ulcers once more stable. Pulmonary discussing possible thoracentesis in the near future. Patient is currently afebrile. Prognosis remains extremely guarded. February 20: Patient was being covered by [facility] last 4 days. ICU. Ventilator. FiO2 16 a PEEP of 8. Has a PEG and trach. Awake, drowsy. On norepinephrine. at the bedside. February 21: ICU: Ventilator. FiO2 60 PEEP of 8. Hemodialysis today. Drips include norepinephrine. Sinus tachycardia. Does open eyes. Sticks his tongue. Drowsy. Not really following commands Active Medications Acetaminophen (Acetaminophen Tab 325 Mg Tab) 650 mg PO Q6HR PRN PRN Reason: Mild Pain or Fever > 100.5 Albuterol/Ipratropium (Ipratropium-Albuterol 3 Ml Neb) 3 ml INHALATION RT-QID [facility] Last Admin: 02/21/22 15:17 Dose: 3 ml Amiodarone HCl (Amiodarone 200 Mg Tab) 200 mg PO BID [facility] Last Admin: 02/21/22 10:31 Dose: 200 mg Apixaban (Apixaban 2.5 Mg Tablet) 2.5 mg PO BID [facility]; Protocol Last Admin: 02/21/22 10:31 Dose: 2.5 mg Artificial Tears (Artificial Tears-Hypromellose Drops 15 Ml Btl) 2 drops BOTH EYES TID PRN PRN Reason: Dry Eye(s) Bisacodyl (Bisacodyl 10 Mg Supp) 10 mg RECTAL DAILY CRUZ Last Admin: 02/21/22 10:32 Dose: 10 mg Budesonide (Budesonide 1 Mg/2 Ml Nebu) 1 mg INHALATION RT-BID CRUZ Last Admin: 02/21/22 07:22 Dose: 1 mg Calcium Carbonate/Glycine (Calcium Carbonate 500 Mg Chewable) 1,000 mg PO Q4HR PRN PRN Reason: Dyspepsia Last Admin: 01/31/22 14:29 Dose: 1,000 mg Chlorhexidine Gluconate (Chlorhexidine Gluconate 15 Ml Cup) 15 ml MUCOUS MEM BID CRUZ Last Admin: 02/21/22 10:38 Dose: 15 ml Collagenase (Collagenase 250 Unit/Gm Ointment 30 Gm Tube) 1 applic TOPICAL DAILY [facility]; Protocol Last Admin: 02/21/22 10:37 Dose: 1 applic Darbepoetin Mann (Darbepoetin Mann 60 Mcg/0.3 Ml Syringe) 60 mcg SQ Q7D CRUZ Last Admin: 02/18/22 18:34 Dose: 60 mcg Dextrose/Water (Dextrose 50% Syringe 50 Ml) 25 ml IVP PER PROTOCOL PRN; Protocol PRN Reason: Hypoglycemia Last Admin: 02/06/22 18:11 Dose: 25 ml Dextrose/Water (Dextrose 50% Syringe 50 Ml) 50 ml IVP PER PROTOCOL PRN; Protocol PRN Reason: Hypoglycemia Propofol 1,000 mg/ IV Solution 100 mls @ 4.08 mls/hr IV .Q24H CRUZ; Protocol Last Titration: 02/18/22 10:06 Dose: 0 mcg/kg/min, 0 mls/hr Metronidazole 500 mg/ IV (Solution) 100 mls @ 100 mls/hr IVPB Q8HR CRUZ; Protocol Last Admin: 02/21/22 16:01 Dose: 100 mls/hr Cefepime HCl 1 gm/ Sodium (Chloride) 50 mls @ 12.5 mls/hr IVPB Q12HR CRUZ Last Admin: 02/21/22 10:31 Dose: 12.5 mls/hr Norepinephrine Bitartrate 32 (mg/ Sodium Chloride) 250 mls @ 3.246 mls/hr IV .Q24H CRUZ; Protocol Last Titration: 02/21/22 09:30 Dose: 0.05 mcg/kg/min, 3.246 mls/hr Anidulafungin 100 mg/ Sodium (Chloride) 100 mls @ 84 mls/hr IVPB DAILY [facility]; Protocol Last Admin: 02/21/22 12:55 Dose: 84 mls/hr Insulin Aspart (Insulin Aspart (Novolog) 100 Unit/Ml Vial) 0 unit SQ Q6HR [facility]; Protocol Last Admin: 02/21/22 12:26 Dose: Not Given Insulin Detemir (Insulin Detemir (Levemir) 100 Unit/Ml Syr) 14 unit SQ HS [facility] Last Admin: 02/20/22 21:33 Dose: 14 unit Lactulose (Lactulose 20 Gm/30 Ml Cup) 30 gm PO BID [facility] Last Admin: 02/21/22 10:30 Dose: 30 gm Levetiracetam (Levetiracetam 250 Mg Tab) 250 mg PO DAILY [facility] Last Admin: 02/21/22 10:32 Dose: 250 mg Metoprolol Tartrate (Metoprolol Tartrate 25 Mg Tab) 25 mg PO BID [facility] Last Admin: 02/21/22 10:31 Dose: 25 mg Miscellaneous Information (Potassium Replacement Protocol 1 Each Misc) 1 each MISCELLANE DAILY PRN; Protocol PRN Reason: Per Protocol Miscellaneous Information (Magnesium Replacement Protocol 1 Each Misc) 1 each MISCELLANE DAILY PRN; Protocol PRN Reason: Per Protocol Morphine Sulfate (Morphine Oral Soln 10 Mg/5 Ml Cup) 15 mg PO Q12H [facility] Last Admin: 02/21/22 12:54 Dose: 15 mg Naloxone HCl (Naloxone 0.4 Mg/Ml 1 Ml Vial) 0.2 mg IV Q2M PRN PRN Reason: Opioid Reversal Ondansetron HCl (Ondansetron 4 Mg/2 Ml Vial) 4 mg IVP Q8HR PRN PRN Reason: Nausea And Vomiting Last Admin: 02/02/22 08:41 Dose: 4 mg Pantoprazole Sodium (Pantoprazole 40 Mg/10 Ml Vial) 40 mg IVP BID [facility] Last Admin: 02/21/22 10:31 Dose: 40 mg Pregabalin (Pregabalin 100 Mg Cap) 100 mg PO BID [facility] Last Admin: 02/21/22 10:31 Dose: 100 mg Past medical history to include: COPD, diabetes, hypertension, hyperlipidemia, back problems, TB, atrial fibrillation, on Coumadin Social history: Smokes a pack a day for close to 50 years. Stop doing alcohol some time ago. Lives with his significant other Sandra. Does use a walker. 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 Occasionally opens eyes. Out folliculitis EYES: Pupils equal. Conjunctiva normal. HEENT: External appearance of nose and ears normal, oral cavity dry, tracheostomy NECK: JVD not raised; masses not palpable. HEART: Heart sounds regular; mild edema. LUNGS: Respiratory rate increased; decreased breath sound, ABDOMEN: Soft, distended, nontender, liver spleen not palpable, no masses palpable. PEG tube. PSYCH: Unable to assess, patient lethargic DERMATOLOGICAL: Wound on right ankle lateral malleolus. Under dressing. Stage II coccygeal breakdown. See nursing notes INVESTIGATIONS, reviewed in the clinical context: February 21: WBC 10.1 hemoglobin 7.5 platelets 134 potassium 4.5 BUN 48 creatinine 3.24 February 20: WBC 10.5 hemoglobin 7.2 platelets 90 sodium 137 potassium 4 BUN 44 creatinine 3.18 February 15: WBC 13.9 hemoglobin 9.6 platelets 96 potassium 4.4 BUN 59 creatinine 4.21 procalcitonin 2.05 Acute hepatitis screen: Negative Complement C3 78, complement C4 19.6 February 11: Sodium 138 potassium 4.4 creatinine 4.19 Sputum: Stenostrophonas maltophilia, Lynda albicans Computed tomography scan abdomen and pelvis [February 06] 6 mm stone in the right renal collecting system. Some circumferential wall thickening of the cecum and ascending colon. Distention of the rectum 7.5 cm with solid stool. EEG: Evidence of encephalopathy. No obvious epileptiform activity. 2-D echocardiogram: EF 60-65%. Renal ultrasound: Shows bilateral normal cortical medullary thickness. February 01: WBC 17.1 hemoglobin 14.8 UA: Blood large, leukoesterase moderate WBC 28 nitrite negative Lumbar spine CT: Anterior wedge compression deformity of L1. Multiple level DJD. 7 mm calculus right renal pelvis. CT chest without contrast: Right lateral eighth through 10th rib fractures with associated gas trace hemothorax right lower lobe pulmonary contusion/atelectasis. Patchy) disease left upper lobe. WBC 25.8 hemoglobin 14.1 platelets 217 INR greater than 10 sodium 131 potassium 3.9. 24 creatinine 1.8 to EKG tracing personally reviewed by me-atrial flutter. Rate 132 Foot/Lumbar/sacral coccyx: Spondylitic changes. No fracture. Chest x-ray film personally reviewed by me-clinically. Possible hyperinflation Assessment and plan: -Coumadin toxicity. INR greater than 10. On presentation: 10 mg vitamin K in the ER. Hemoptysis on presentation. Coumadin resumed on February 05.. - right lung contusion.-Secondary to fall. hemoptysis on presentation -Pneumonia, secondary to Stenostrophonas maltophilia, Lynda albicans: Slow to respond IV cefepime, IV anidulafungin -Sepsis with positive blood cultures MSSA, likely source right ankle. From January 31. IV cefepime. February 04 blood culture negative -Acute hypoxic respiratory failure, multifactorial: ventilator support,: Slow to respond Patient intubated on February 05 -Acute COPD exacerbation, with chronic bronchitis component in a current smoker: Slow to respond DuoNeb. Nebulized Pulmicort. Mucinex. -Chronic nicotine dependence, cigarette smoker Nicotine patch -Paroxysmal atrial flutter,: Back in sinus rhythm Lopressor 50 mg 3 times a day. 2-D echocardiogram unremarkable. Oral amiodarone Coumadin started on February 05 -Possible CK D with possible acute component. creatinine was 0.8 in April 2019. Renal ultrasound unremarkable. UA shows trace protein. IV fluids.. -Acute kidney injury, ATN, likely cardiorenal syndrome.: Not improving Follow with nephrology. Daily Hemodialysis started February 09 -Acute right-sided 8-10 ribs fracture secondary to fall K pad -Diabetes mellitus type 2, chronically on oral hypoglycemic Sliding scale insulin. Levemir 14 units daily at bedtime -Diabetic peripheral neuropathy Decreased dose of Lyrica in the setting of renal failure. 100 mg twice a day -Chronic low back pain: MS Contin 15 mg every 12, [place] 7.5 twice a day when necessary -Anxiety depression not otherwise specified Wellbutrin XL 100 mg twice a day -Hyperlipidemia Lipitor 40 mg daily at bedtime -Right ankle lateral, diabetic wound, stage II acute. Wound culture positive for Streptococcus agalactiae and Staphylococcus aureus. IV Ancef initially. Follow with ID Patient has poor distal pulses. February 01 wound was debrided by Dr. Ibarra. Clean base. -Acute L1 30% wedge fracture secondary to fall LSO brace. Be followed by Dr. Damon -Acute delirium multifactorial. Slow to respond -Acute ileus, NG tube for decompression.; clamped.: Corrected Being followed by surgery. -Possible colitis /fistula on computed tomography scan. IV Flagyl. Cefepime. Followed by surgery l, IV norepinephrine. IV Flagyl,/IV cefepime/IV anidulafungin. PEG tube. Tracheostomy. hemodialysis today. Prognosis guarded.
[2022-02-21 17:02] LABS: % Iron Saturation 27.12 (15.00-50.00)
[2022-02-21 17:57] LABS: Glucose,Whole Blood 117 mg/dL (70-110)
[2022-02-21 18:44] LABS: Anti-DNA, DS unit <1.0 IU/mL; DNA Double-Stranded NEGATIVE (NEGATIVE)
[2022-02-21] MEDS: INSULIN DETEMIR (LEVEMIR) 100 UNIT/ML SYR SQ SCH (20:09)
[2022-02-21 20:10] LABS: Glucose,Whole Blood 116 mg/dL (70-110)
[2022-02-21 23:47] LABS: Glucose,Whole Blood 99 mg/dL (70-110)
[2022-02-22] MEDS: NOREPINEPHRINE 32 MG in SODIUM CHLORIDE 0.9% 218 ML IV SCH ×2 (00:04→23:31)
[2022-02-22] MEDS: INSULIN ASPART (NovoLOG) 100 UNIT/ML VIAL SQ SCH ×5 (00:04→23:31)
[2022-02-22] MEDS: metroNIDAZOLE-NS PMX 500 MG in SALINE 1 100ML.BAG IVPB SCH ×4 (00:08→23:30)
[2022-02-22] MEDS: MORPHINE ORAL SOLN 10 MG/5 ML CUP PO SCH ×3 (00:09→23:30)
[2022-02-22 05:52] LABS: ABG Base Excess 0.9 mmol/L; ABG HCO3 26 mmol/L (21-25); ABG PCO2 45 mmHg (35-45); ABG PH 7.37 (7.35-7.45); ABG PO2 75 mmHg (83-108); ABG TCO2 28 mmol/L (19-24)
[2022-02-22 05:58] LABS: Anisocytosis Moderate; Basophils # (A) 0.1 k/uL (0-0.2); Basophils % (A) 1 %; Eosinophils # (A) 0.4 k/uL (0-0.7); Eosinophils % (A) 5 %; HCT 23.1 % (39.0-53.0); Hypochromasia Marked; Lymphocytes # (A) 0.8 k/uL (1.0-4.8); Lymphocytes % (A) 10 %; MCH 28.9 pg (25.0-35.0); MCHC 29.7 g/dL (31.0-37.0); MCV 97.3 fL (80.0-100.0); Macrocytosis Moderate; Mean Platelet Volume 11.8; Monocytes # (A) 0.4 k/uL (0-1.0); Monocytes % (A) 5 %; Neutrophils # (A) 6.1 k/uL (1.3-7.7); Neutrophils % (A) 76 %; Platelet Count 161 k/uL (150-450); RBC 2.38 m/uL (4.30-5.90); RDW 20.7 % (11.5-15.5)
[2022-02-22 06:07] LABS: Calcium 7.8 mg/dL (8.4-10.2); Potassium 4.2 mmol/L (3.5-5.1)
[2022-02-22 06:16] LABS: Glucose,Whole Blood 122 mg/dL (70-110)
[2022-02-22 06:24] LABS: HGB 6.9 gm/dL (13.0-17.5)
[2022-02-22] MEDS: IPRATROPIUM-ALBUTEROL 3 ML NEB INHALATION SCH ×4 (07:13→19:09)
[2022-02-22] MEDS: BUDESONIDE 1 MG/2 ML NEBU INHALATION SCH ×2 (07:13→19:09)
--- NOTE | 2022-02-22 08:03 | XR ---
EXAMINATION TYPE: XR chest 1V DATE OF EXAM: 02/22/2022 HISTORY: Shortness of breath. COMPARISON: 02/21/2022 TECHNIQUE: Single view of the chest is submitted. FINDINGS: Tracheostomy tube is in place and is unchanged. Right-sided PICC line also stable in position. Comple te opacification right hemithorax and increased density left lung base. Overall appearance is stable. The heart is stable. Hilar and mediastinal structures are within normal limits. Degenerative changes are seen of the dorsal spine. IMPRESSION: 1. The appearance of the chest is unchanged.
--- NOTE | 2022-02-22 09:14 | P.PN ---
Subjective Progress Note Date: 02/22/22 Principal diagnosis: Upper GI bleed Patient remains on the ventilator. Chest x-ray this morning still shows opacification right chest. He had 5 loose or bowel movement overnight. These are not black in color. Tolerating tube feeds at 25 mL per hour with no residuals. Objective - Vital Signs Vital signs: Vital Signs Temp 98.6 F 02/22/22 04:00 Pulse 110 H 02/22/22 07:25 Resp 24 02/22/22 06:15 BP 101/61 02/22/22 07:00 Pulse Ox 96 02/22/22 07:00 FiO2 60 02/22/22 07:11 Intake & Output 02/21/22 02/22/22 02/22/22 18:59 06:59 18:59 Intake Total 748.461 736.467 43 Output Total 1530 25 0 Balance -781.539 711.467 43 Weight 154 kg Intake: IV 584 348.0 18 0.9% Sodium Chloride @ 195 165 15 10mls/hr Anidulafungin 100 mg In 100 Sodium Chloride 0.9% 100 ml @ 84 mls/hr IVPB DAILY [facility] Rx#:[id number] Cefepime 1 gm In Sodium 50 50.0 Chloride 0.9% 50 ml @ 12. 5 mls/hr IVPB Q12HR [facility] Rx#:[id number] Pressure bags 39 33 3 metroNIDAZOLE-NS PMX 500 200 100 mg In Saline 1 100ml.bag @ 100 mls/hr IVPB Q8HR [facility] Rx#:[id number] Intake, IV Titration 34.461 23.467 Amount Norepinephrine 32 mg In 34.461 23.467 Sodium Chloride 0.9% 218 ml @ 0.05 MCG/KG/MIN 3. 246 mls/hr IV .Q24H [facility] Rx#:[id number] Tube Feeding 100 275 25 Other 30 90 Output: Urine 30 25 0 Hemodialysis 1500 Other: Voiding Method Indwelling Catheter Indwelling Catheter # Bowel Movements 1 ABP, PAP, CO, CI - Last Documented Arterial Blood Pressure 118/52 - Exam Abdomen: Soft, nondistended, nontender, PEG tube in place Tracheostomy without evidence of bleeding or infection - Labs CBC & Chem 7: 02/22/22 04:40 02/22/22 04:40 Labs: Abnormal Lab Results - Last 24 Hours (Table) 02/21/22 02/21/22 02/21/22 Range/Units 05:34 11:33 17:55 RBC (4.30-5.90) m/uL Hgb (13.0-17.5) gm/dL Hct (39.0-53.0) % MCHC (31.0-37.0) g/dL RDW (11.5-15.5) % Lymphocytes # (1.0-4.8) k/uL ABG pO2 (83-108) mmHg ABG HCO3 (21-25) mmol/L ABG Total CO2 (19-24) mmol/L BUN (9-20) mg/dL Creatinine (0.66-1.25) mg/dL Glucose (74-99) mg/dL POC Glucose (mg/dL) 115 H 117 H (70-110) mg/dL Calcium (8.4-10.2) mg/dL Iron 43 L (65-175) ug/dL TIBC 158 L (228-460) ug/dL Transferrin 113.0 L (204.0-354.0) mg/dL Ferritin 511.0 H (22.0-322.0) ng/mL 02/21/22 02/22/22 02/22/22 Range/Units 20:09 04:40 04:40 RBC 2.38 L (4.30-5.90) m/uL Hgb 6.9 L* (13.0-17.5) gm/dL Hct 23.1 L (39.0-53.0) % MCHC 29.7 L (31.0-37.0) g/dL RDW 20.7 H (11.5-15.5) % Lymphocytes # 0.8 L (1.0-4.8) k/uL ABG pO2 (83-108) mmHg ABG HCO3 (21-25) mmol/L ABG Total CO2 (19-24) mmol/L BUN 39 H (9-20) mg/dL Creatinine 3.11 H (0.66-1.25) mg/dL Glucose 100 H (74-99) mg/dL POC Glucose (mg/dL) 116 H (70-110) mg/dL Calcium 7.8 L (8.4-10.2) mg/dL Iron (65-175) ug/dL TIBC (228-460) ug/dL Transferrin (204.0-354.0) mg/dL Ferritin (22.0-322.0) ng/mL 02/22/22 02/22/22 Range/Units 05:48 06:14 RBC (4.30-5.90) m/uL Hgb (13.0-17.5) gm/dL Hct (39.0-53.0) % MCHC (31.0-37.0) g/dL RDW (11.5-15.5) % Lymphocytes # (1.0-4.8) k/uL ABG pO2 75 L (83-108) mmHg ABG HCO3 26 H (21-25) mmol/L ABG Total CO2 28 H (19-24) mmol/L BUN (9-20) mg/dL Creatinine (0.66-1.25) mg/dL Glucose (74-99) mg/dL POC Glucose (mg/dL) 122 H (70-110) mg/dL Calcium (8.4-10.2) mg/dL Iron (65-175) ug/dL TIBC (228-460) ug/dL Transferrin (204.0-354.0) mg/dL Ferritin (22.0-322.0) ng/mL Microbiology - Last 24 Hours (Table) 02/20/22 15:40 Acid Fast Bacilli Smear - Final Bronchoalviolar Lavage - Right Acid Fast Bacilli Culture - Preliminary 02/20/22 15:40 Gram Stain - Preliminary Bronchoalviolar Lavage - Right Bronchial Washings Culture - Preliminary 02/15/22 06:05 Blood Culture - Final Blood No Growth after 144 hours Assessment and Plan (1) Ileus Narrative/Plan: Patient doing better at this time. Bowel function has improved. We'll decrease lactulose from twice a day to once daily. Discontinue Dulcolax positive. Continue to gradually resume advancing tube feeds to goal. Current Visit: Yes Status: Acute Code(s): K56.7 - ILEUS, UNSPECIFIED SNOMED Code(s): 485106850
--- NOTE | 2022-02-22 09:18 | P.PN ---
Subjective Patient is seen in follow-up for acute kidney injury. Started on hemodialysis 02/09/2022. Intubated. On low-dose Levophed. Tube feeds resumed. Tolerated dialysis well yesterday with 1.5 L ultrafiltration. Vital signs are stable. On Levophed. General: Resting in bed. HEENT: Tracheostomy noted. LUNGS: Breath sounds decreased. HEART: Rate and Rhythm are regular. ABDOMEN: Soft, no distention. EXTREMITITES: Trace edema. Objective - Vital Signs Vital signs: Vital Signs Temp 98.6 F 02/22/22 04:00 Pulse 110 H 02/22/22 07:25 Resp 24 02/22/22 06:15 BP 101/61 02/22/22 07:00 Pulse Ox 96 02/22/22 07:00 FiO2 60 02/22/22 07:11 Intake & Output 02/21/22 02/22/22 02/22/22 18:59 06:59 18:59 Intake Total 748.461 736.467 43 Output Total 1530 25 0 Balance -781.539 711.467 43 Weight 154 kg Intake: IV 584 348.0 18 0.9% Sodium Chloride @ 195 165 15 10mls/hr Anidulafungin 100 mg In 100 Sodium Chloride 0.9% 100 ml @ 84 mls/hr IVPB DAILY [facility] Rx#:[id number] Cefepime 1 gm In Sodium 50 50.0 Chloride 0.9% 50 ml @ 12. 5 mls/hr IVPB Q12HR [facility] Rx#:[id number] Pressure bags 39 33 3 metroNIDAZOLE-NS PMX 500 200 100 mg In Saline 1 100ml.bag @ 100 mls/hr IVPB Q8HR [facility] Rx#:[id number] Intake, IV Titration 34.461 23.467 Amount Norepinephrine 32 mg In 34.461 23.467 Sodium Chloride 0.9% 218 ml @ 0.05 MCG/KG/MIN 3. 246 mls/hr IV .Q24H [facility] Rx#:[id number] Tube Feeding 100 275 25 Other 30 90 Output: Urine 30 25 0 Hemodialysis 1500 Other: Voiding Method Indwelling Catheter Indwelling Catheter # Bowel Movements 1 ABP, PAP, CO, CI - Last Documented Arterial Blood Pressure 118/52 - Labs CBC & Chem 7: 02/22/22 04:40 02/22/22 04:40 Labs: Abnormal Lab Results - Last 24 Hours (Table) 02/21/22 02/21/22 02/21/22 Range/Units 05:34 11:33 17:55 RBC (4.30-5.90) m/uL Hgb (13.0-17.5) gm/dL Hct (39.0-53.0) % MCHC (31.0-37.0) g/dL RDW (11.5-15.5) % Lymphocytes # (1.0-4.8) k/uL ABG pO2 (83-108) mmHg ABG HCO3 (21-25) mmol/L ABG Total CO2 (19-24) mmol/L BUN (9-20) mg/dL Creatinine (0.66-1.25) mg/dL Glucose (74-99) mg/dL POC Glucose (mg/dL) 115 H 117 H (70-110) mg/dL Calcium (8.4-10.2) mg/dL Iron 43 L (65-175) ug/dL TIBC 158 L (228-460) ug/dL Transferrin 113.0 L (204.0-354.0) mg/dL Ferritin 511.0 H (22.0-322.0) ng/mL 02/21/22 02/22/22 02/22/22 Range/Units 20:09 04:40 04:40 RBC 2.38 L (4.30-5.90) m/uL Hgb 6.9 L* (13.0-17.5) gm/dL Hct 23.1 L (39.0-53.0) % MCHC 29.7 L (31.0-37.0) g/dL RDW 20.7 H (11.5-15.5) % Lymphocytes # 0.8 L (1.0-4.8) k/uL ABG pO2 (83-108) mmHg ABG HCO3 (21-25) mmol/L ABG Total CO2 (19-24) mmol/L BUN 39 H (9-20) mg/dL Creatinine 3.11 H (0.66-1.25) mg/dL Glucose 100 H (74-99) mg/dL POC Glucose (mg/dL) 116 H (70-110) mg/dL Calcium 7.8 L (8.4-10.2) mg/dL Iron (65-175) ug/dL TIBC (228-460) ug/dL Transferrin (204.0-354.0) mg/dL Ferritin (22.0-322.0) ng/mL 02/22/22 02/22/22 Range/Units 05:48 06:14 RBC (4.30-5.90) m/uL Hgb (13.0-17.5) gm/dL Hct (39.0-53.0) % MCHC (31.0-37.0) g/dL RDW (11.5-15.5) % Lymphocytes # (1.0-4.8) k/uL ABG pO2 75 L (83-108) mmHg ABG HCO3 26 H (21-25) mmol/L ABG Total CO2 28 H (19-24) mmol/L BUN (9-20) mg/dL Creatinine (0.66-1.25) mg/dL Glucose (74-99) mg/dL POC Glucose (mg/dL) 122 H (70-110) mg/dL Calcium (8.4-10.2) mg/dL Iron (65-175) ug/dL TIBC (228-460) ug/dL Transferrin (204.0-354.0) mg/dL Ferritin (22.0-322.0) ng/mL Microbiology - Last 24 Hours (Table) 02/20/22 15:40 Acid Fast Bacilli Smear - Final Bronchoalviolar Lavage - Right Acid Fast Bacilli Culture - Preliminary 02/20/22 15:40 Gram Stain - Preliminary Bronchoalviolar Lavage - Right Bronchial Washings Culture - Preliminary 02/15/22 06:05 Blood Culture - Final Blood No Growth after 144 hours Assessment and Plan Plan: Assessment: 1. Acute kidney injury secondary to ATN secondary to septic shock. Started on hemodialysis 02/09/2022. Oliguric. Creatinine in April 2019 was 0.8. Cre atinine was as low as 1.62 this admission. No hydronephrosis noted on CAT scan. 2. MSSA bacteremia with likely source being right foot ulcer. Also component of pneumonia. ID following. On antibiotics. Also on antifungal. 3. A. fib. Cardiology following. On amiodarone and beta donovan. 4. Metabolic acidosis secondary to acute kidney injury. Improved. 5. Diabetes mellitus. 6. Hyperphosphatemia secondary to acute kidney injury. 7. Volume overload. Improved with ultrafiltration. Status post bronchoscopy 02/20/2022 with removal of mucous plugs and bronchioloalveolar lavage. 8. Anemia. Iron replete. On Aranesp. Hemoglobin 6.9 today. No active bleeding. Plan: Hemodialysis tomorrow. Stopped Demadex as patient has no urine output. Maintain tube feeds. Wean FiO2 and vasopressors. Add midodrine 5 mg 3 times daily. Hold for systolic blood pressure greater than 115. Continue to monitor for renal recovery. Serologies negative except C3 slightly low. Resume PhosLo. Consider blood transfusion. Defer to surgery/ICU.
[2022-02-22] MEDS: APIXABAN 2.5 MG TABLET PO SCH ×2 (09:31→21:10)
[2022-02-22] MEDS: MIDODRINE 5 MG TAB PO SCH ×3 (09:31→17:23)
[2022-02-22] MEDS: PANTOPRAZOLE 40 MG/10 ML VIAL IVP SCH ×2 (09:31→21:10)
[2022-02-22] MEDS: PREGABALIN 100 MG CAP PO SCH ×2 (09:31→21:10)
[2022-02-22] MEDS: METOPROLOL TARTRATE 25 MG TAB PO SCH ×2 (09:31→21:13)
[2022-02-22] MEDS: CEFEPIME 1 GM in SODIUM CHLORIDE 0.9% 50 ML IVPB SCH ×2 (09:31→21:17)
[2022-02-22] MEDS: CHLORHEXIDINE GLUCONATE 15 ML CUP MUCOUS MEM SCH ×2 (09:31→21:10)
[2022-02-22] MEDS: AMIODARONE 200 MG TAB PO SCH ×2 (09:31→21:10)
[2022-02-22] MEDS: levETIRAcetam 250 MG TAB PO SCH (09:31)
[2022-02-22] MEDS: COLLAGENASE 250 UNIT/GM OINTMENT 30 GM TUBE TOPICAL SCH (09:32)
[2022-02-22] MEDS: LACTULOSE 20 GM/30 ML CUP PO SCH (09:36)
--- NOTE | 2022-02-22 10:12 | P.PN ---
Subjective Progress Note Date: 02/22/22 This is a extremely debilitated 61-year-old male patient who was admitted to the hospital on 01/31/2022 because of a fall and limited hemoptysis. The patient is known to have a combination of issues including diabetes mellitus and diabetic peripheral neuropathy and the patient has had previous episodes of falls and he has issues with chronic atrial flutter maintained on long-term anticoagulation with warfarin. He is morbidly obese. He has hypertension and hyperlipidemia as comorbid conditions along with chronic kidney disease. He is morbidly obese. He has history of COPD and is a chronic smoker. He comes in to the hospital after he had a fall at home. He was the bathroom and he slept and he landed on his left chest. Here in the hospital, the patient was found to be Coumadin toxic and his INR was above 10. He did have some limited hemoptysis and coffee-ground emesis without any melanotic stools. No abdominal pain. He was noted to have a large ulcer over the right ankle/malleolus area which is a chronic wound. Immediately the patient was given vitamin K. This computed tomography scan of the chest shows some right lateral eighth through 10th rib fractures with trace amount of right-sided pleural effusion and right basilar atelectasis related to underlying pulmonary contusion. No evidence of any pneumothorax. Some limited patchy airspace disease in the left upper lobe probably inflammatory in the same time the patient had dilated pulmonary arteries indicating possibility of pulmonary hypertension and a fluid and gas- filled distended stomach. I noted the patient has not had a CAT scan of the brain and a CAT scan was done that showed no acute intracranial process. There was a remote left occipital lobe injury along with some nonspecific white matter changes secondary to chronic microangiopathy. This computed tomography scan of the lumbar spine showed acute anterior wedge compression deformity of L1 vertebral body with a 30% loss in height along with multilevel degenerative disc changes and a 7 mm In the right pelvis. Patient was already seen by general surgery and orthopedic surgery. Lumbar spine x-ray that was done on 2021 showed no acute fracture. The patient was also seen by vascular surgery for a right lateral foot wound and this is a stage II wound 8.5 x 4 cm in size. Debridement was done by vascular surgery. On 02/16/2022, I'm seeing the patient for a follow-up. I saw this patient initially at time of admission and the patient had a prolonged hospitalization related to his comorbid conditions and the patient was ultimately intubated and placed on a mechanical ventilator and the plan is for today to proceed with a tracheostomy tube insertion as the patient had prolonged respiratory failure. This morning, the patient is sedated and the patient is receiving propofol at a rate of 20 mcg/kg per minute and is quite successful mechanical ventilator. He is on assist-control mode of mechanical ventilation at the rate of 24 with a tidal volume of 500 and FiO2 of 40% and a PEEP of 5. Blood gases from today shows a pH of 7.41 with a pCO2 of 40 and pO2 of 75 and the most recent chest x- ray showed a large right-sided pleural effusion in addition to left-sided pleural effusion. The right lung was also consolidated and there was some volume loss and underlying pneumonia cannot be completely excluded. The most recent blood cultures have been negative. Sputum culture was positive for stenotrophomonas and the patient was covered with appropriate antibiotics and currently remains on IV cefepime that was originally started on 02/06/2022. I also noted that the patient is on a combination of Flagyl and he is taken also Eraxis per IDs recommendation. Note that in addition to pneumonia, the patient has right foot unstageable pressure ulcer with surrounding necrosis and cellulitis and there was no underlying osteomyelitis based on the x-ray. Patient is post debridement and a the wound culture showed a combination of MSSA and strep agalactiae. There was also Lynda that was identified and the patient's sputum and due to concerns of ongoing infection ID elected to put him on Eraxis and the patient's white cell count is gradually improved from as high as 26.5 down to 12.9 today. Hemodynamically, he is on pressors and the patient is requiring norepinephrine at a dose of 0.07 mcg/kg per minute. IV fluids are at KVO and the patient has significant amount of third spacing and edema in all 4 extremities more so in the upper extremities. He is receiving hemodialysis. Last hemodialysis session was on 02/14/2022 and the patient had a total of 2 L of ultrafiltration. Prior to that, and another liter was taken off on 02/12/2022. On today's blood work, the patient's white cell count of 12.9 with hemoglobin 8.7 and a platelet count of 106. Patient has sodium level of 134, BUN is 66 and creatinine is 4.6 and the rest of the electrodes are stable and the patient's serum bicarbs at 23. Albumin level is down to 1.9 with a total protein of 4.4. In terms of enteral feeding, the patient is receiving vital h igh protein and the currently the 2 feedings are on hold as the patient is going to undergo a tracheostomy tube insertion. He does have a arterial line catheter in his right upper extremity and the patient also has a right labia and triple- lumen catheter in place. Urine output is marginal in the order of 10-20 mL an hour. In the neck fluid balance has been +1.9 L over the past 24 hours. He is currently on the sinus rhythm. Anticoagulation is on hold as the patient is going to undergo a tracheostomy tube insertion. INR today is at 1.1. 02/17/2022, the patient is being seen for a follow-up. The patient is still intubated on a mechanical ventilator. He did not have his tracheostomy tube insertion yesterday due to scheduling problems. This morning, the patient remains sedated and the patient is on propofol running at 15 mcg/kg per minute. He is successful mechanical ventilator and he is arranging an assist-control mode at the rate of 24 with a tidal volume of 500 and FiO2 of 40% with a PEEP of 5. The blood gases from today showing a pH of 7.39 with a pCO2 of 41 and pO2 of 77. The FiO2 was at 40%. The chest x-ray from today is showing shows adequate positioning of the orotracheal tube. The patient also has large bilateral pleural effusions as mentioned yesterday and there is no major interval change compared to yesterday. Noted the patient underwent hemodialysis yesterday and he had an ultrafiltration of 3 L of fluid. His sputum was also positive for stenotrophomonas and the patient is covered with IV cefepime the pathology started on 02/07/2020 and he continues to be on the same antibiotics for now. He remains also on IV Eraxis and Flagyl per IDs recommendations. No significant orotracheal secretions. His symptoms the mechanical ventilator. Pulse ox dre und 94%. Awaiting a tracheostomy tube insertion today. He does have a unstageable wound in his coccyx area and the patient has a wound in his right ankle that was incised and drained and the cultures showed MSSA and strep agalactiae. ID is on the case for antibiotic management. In terms of hemod ynamics, the patient remains on IV fluids at KVO. He has there are no dose of norepinephrine running at 0.03 mcg/kg per minute. Urine output is minimal at this point in time and order of 15-20 mL an hour. In terms of his blood work from today, the patient has a white cell count of 14.5 with hemoglobin of 8.9 and a platelet count of 106 from yesterday. His sodium level is at 135, BUN is at 61 with a creatinine of 4.55. Potassium level is at 4.8 with a serum bicarb of 22. His most recent pro-calcitonin level from 02/15/2022 was 2.05 which remains elevated. He is receiving enteral feeding for nutritional support through his PEG tube. He was receiving vital high protein at the rate of 58 is an hour. The tube feeds were placed on hold in anticipation for a tracheostomy tube insertion. Overall fluid balance over the past 24 hours in the order of - 1.7 L the patient underwent hemodialysis with ultrafiltration. His cardiac rhythm remains sinus. His coagulation profile shows an INR of 1.0 with a PT of 11.2. 02/18/2022, the patient is being seen for a follow-up. This morning, the patient is on propofol at 25 mcg/kg per minute and we are the process of getting this patient a sedation holiday. Note that the patient was given a tracheostomy tube yesterday and the patient has a extra long Shiley tracheostomy tube #8. The patient remains on a mechanical ventilator. No significant leaks around the tracheostomy tube. The patient is an assist-control mode rate of 24 with a tid al volume of 500 and FiO2 of 40% with a PEEP of 5. His chest x-ray from yesterday was showing bilateral pleural effusions and a repeat chest x-ray will be obtained from today. Meanwhile, his blood gases from today is showing a pH of 7.41 with a pCO2 of 41 and pO2 of 75. He remains on a low dose n orepinephrine infusion at 0.07 mcg/kg per minute. IV fluids are currently at KVO. He underwent hemodialysis yesterday with a total ultrafiltration of 2 L. He remains on the same antibiotic coverage included IV cefepime, Flagyl and Eraxis. He does have an unstageable wound on his coccyx. He also has a ankle with that was incised and drained earlier. In terms of his blood work, the white cell count is at 10.6 and hemoglobin of 8.4 and platelet count of 88. His BUN is at 50 with a creatinine of 3.28. Sodium is 136 with a potassium level of 4.1 and a chloride of 99 with a bicarb of 24. INR is at 1.1. Calcium level is at 7.2 and albumin level is at 1.9. The patient is receiving vital high protein at the rate of 65 mL an hour which is goal and his serum albumin is at 1.9. The patient has no major orotracheal secretions. His cardiac rhythm remains sinus. His ankle wound is dressed. As for the coccyx, the patient has an unstageable wound and OptiForm has been applied. We'll discuss this case with general surgeon in regard to the possibility of debridement. 2021, the patient is off sedation. The patient was taken off sedation yesterday morning and he gradually improved in terms of his level of alertness. He is currently at the point where he is opening his eyes and is looking around. He is not following commands yet. No agitation. He remains successful mecha nical ventilator. He did encounter some desaturation yesterday and based on that, the patient the PEEP was increased up to 8 and the patient is currently on an FiO2 of 60%. The mechanical ventilated is also on assist control mode at the rate of 24 with a tidal volume of 500. Blood gases from today showed a pH of 7.31 with a pCO2 of 51 and pO2 of 76. The chest x-rays obviously abnormal and the patient has large bilateral pleural effusions. Tracheostomy tube is in a good location. This progression of pleural effusion and there may be also somewhat on loss and atelectasis on the right side. Underlying pneumonia cannot be completely excluded. The patient had stenotrophomonas and Lynda albicans in the sputum on 02/05/2022. Since then, the patient was covered with antibiotics and the patient remains on IV cefepime and he has been taking the cefepime since 02/06/2022. He is also on Flagyl and Eraxis per IDs recommendation regarding his issues with chronic wounds. He is afebrile. He is hemodynamically requiring low-dose pressors and the patient is on norepinephrine infusion at 0.05 mcg/kg per minute. The white cell count is at 10.6 and hemoglobin of 8 and a platelet count of 88. Electrolytes are normal sodium is at 138, bicarbonate 23, BUN is a 47 with a creatinine of 3.4. The patient underwent hemodialysis yesterday with a total of 2.5 L of fluid being removed. Liver function tests are normal, his pro-calcitonin level from 02/15/2022 was at 2.05 and albumin level is at 2.0. The patient is receiving enteral feeding for nutritional support and he remains on vital high protein at the rate of 55 mL an hour. He remains on Demadex and the urine output is essentially none for now. He remains on Levemir insulin 14 units at bedtime and a NovoLog for sliding scale coverage. 02/20/2022, I'm seeing the patient for a follow-up in the intensive care unit. The patient remains off sedation and he has been off propofol since the had his tracheostomy completed. The patient is opening up his eyes spontaneously. At times he gets restless and agitated. Over the last, his agitation has been manageable and he calms down immediately following this. He is not following any commands. He also remains on a mechanical ventilator. This morning, he is an assist-control mode with a rate of 24 and a tidal volume of 500 and FiO2 of 60% with a PEEP of 8. The morning chest x-ray from today shows volume loss in the right lung and the right lung is completely opacified and is predominantly due to atelectasis and there is also some pleural fluid bilaterally. I performe d a CAT scan of his chest yesterday and the CAT scan showed near complete opacification of the right lung with moderate amount of right-sided pleural effusion on the right and on the left. At the same time, there was significant amount of atelectasis in the right lung. There was diffuse anasarca and small volume ascites. There was also nodularity within the liver raising concern for liver cirrhosis. There was also healing right-sided rib fractures and indeterminant L1 vertebral body compression fracture. There was dilatation of the main pulmonary arteries seen on the CAT scan of the chest. The patient is to undergo hemodialysis today. Is undergoing hemodialysis on a daily basis with a goal of ultrafiltration of around 2-3 L if possible. The patient's hemoglobin today is at 7.2. His white count was attempted 0.5 with a platelet count of 90. The blood gases from today showed a pH of 7.31 with a pCO2 of 51 and a pO2 of 80. The BUN is at 44 with a creatinine of 3.1 and sodium level is at 137. No other significant events otherwise for now. He is afebrile. Blood cultures from 917 and 02/15/2022 were both negative. He is receiving enteral feeding for nutritional support. The patient is a PEG tube and the patient is receiving vital high protein at the rate of 65 mL an hour. I breathing child is very bad along with dizziness 60% and following commands now I is that he is neuropathy cannot walk respiratory 02/21/2022, I'm seeing the patient for a follow-up. The patient is still off sedation and this is his third day being off propofol. Neurologically, there is an obvious impairment. I'm going to ask neurology to reevaluate this patient. The patient opens his eyes, sticks out his tongue, move his eyebrows, looks around, goes back to sleep and all of these movements are nonpurposeful. He does have some facial twitching also. Unclear to me whether those are seizures. Note that his upper and lower extremities remain flaccid any mainly moves his neck and had, gives rotations to his neck and does some unusual facial features and following then he stops spontaneously. Unable to communicate. Unable to follow any simple commands. His last EEG was done on 02/11/2022 and there was no evidence of any seizure activity and the patient was seen by neurology during this current admission. The patient remains on a mechanical ventilator. He has a tracheostomy tube in place. Right lung was completely opacified and this was a combination of atelectasis and pleural effusion. For that reason, the patient undergoing almost daily hemodialysis. Furthermore, I performed a bronchoscopy on him yesterday and therapeutic airway suctioning was done with copious amount of respiratory secretions and mucous plugs were aspirated from the right lung. A follow-up chest x-ray still pending from today. Meanwhile, he remains an FiO2 of 60% with a PEEP of 8 and a tidal volume of 500 with a rate of 24. Blood gases from today show a pH of 7.36 with a pCO2 of 47 and pO2 of 63. The bronchioloalveolar lavage of the right lower lobe was collected and is also still pending for now. The white cell count is at 10 with a hemoglobin of 7.7 and platelet count 134. BUN is 48 with a creatinine of 3.2. Rest of the electrodes are normal. Antibiotics remain unchanged. Note that his previous sputum sample from 02/05/2022 was positive for stenotrophomonas and the patient was covered with appropriate antibiotics and infectious disease on the case. He is receiving wound care. He is receiving enteral feeding for nutritional support via his PEG tube and the patient is currently on with a mean vital high protein. Note that the patient was having difficulties with bowel movement despite being on laxatives. He did have some abdominal distention. A repeat x-ray of the abdomen was done yesterday. There was no significant abnormalities. There was colonic distention without any air-fluid level, could be potentially a component of ileus. The patient did have bowel movements following that as the patient was given GoLYTELY and he did have a liquidy bowel movement 02/22/2022, neurologically unchanged and the patient remains off sedation and is not following any commands. He is essentially the same as yesterday. He does movements and these are essentially nonpurposeful movements. I have asked neurology to reevaluate the patient for any further input. Meanwhile, he remains on a mechanical ventilator. The right lung is essentially opacified with a pleural effusion and atelectasis. I performed a bronchoscopy and remove mucous plug from the right lung. This caused some limited improvement. For the most part, the right lung is still opacified. He remains on assist control mode of mechanical ventilation at the rate of 24, tidal volume of 500, FiO2 of 60% and a PEEP of 8. Blood gases from today showed a pH of 7.37 with a pCO2 of 45 and pO2 of 75. The patient's condition essentially unchanged. He is hemodynamically stable. His still on minimal doses of pressors which is being weaned off and currently is on norepinephrine at 0.02 mcg/kg per minute.. He is afebrile and the repeat cultures from the bronchioloalveolar lavage of the right lung showed no microbial growth. Hemoglobin today is at 6.9. No signs of any active bleeding. Last hemodialysis session was yesterday and no plans for dialysis today. He is having bowel movement activity. She'll feeds were restarted and the patient is on vital high protein at the rate of 25. His rest of the blood work shows a white cell count of 8 with a hemoglobin of 6.9 and platelet count of 161. Sodium is 141 BUN is a 39 and a creatinine of 3.11. Objective - Vital Signs Vital signs: Vital Signs Temp 98.6 F 02/22/22 04:00 Pulse 110 H 02/22/22 07:25 Resp 24 02/22/22 06:15 BP 101/61 02/22/22 07:00 Pulse Ox 96 02/22/22 07:00 FiO2 60 02/22/22 07:11 Intake & Output 02/21/22 02/22/22 02/22/22 18:59 06:59 18:59 Intake Total 748.461 736.467 43 Output Total 1530 25 0 Balance -781.539 711.467 43 Weight 154 kg Intake: IV 584 348.0 18 0.9% Sodium Chloride @ 195 165 15 10mls/hr Anidulafungin 100 mg In 100 Sodium Chloride 0.9% 100 ml @ 84 mls/hr IVPB DAILY [facility] Rx#:[id number] Cefepime 1 gm In Sodium 50 50.0 Chloride 0.9% 50 ml @ 12. 5 mls/hr IVPB Q12HR [facility] Rx#:[id number] Pressure bags 39 33 3 metroNIDAZOLE-NS PMX 500 200 100 mg In Saline 1 100ml.bag @ 100 mls/hr IVPB Q8HR [facility] Rx#:[id number] Intake, IV Titration 34.461 23.467 Amount Norepinephrine 32 mg In 34.461 23.467 Sodium Chloride 0.9% 218 ml @ 0.05 MCG/KG/MIN 3. 246 mls/hr IV .Q24H [facility] Rx#:[id number] Tube Feeding 100 275 25 Other 30 90 Output: Urine 30 25 0 Hemodialysis 1500 Other: Voiding Method Indwelling Catheter Indwelling Catheter # Bowel Movements 1 ABP, PAP, CO, CI - Last Documented Arterial Blood Pressure 118/52 - Exam GENERAL: BMI 39.6, intubated on a mechanical ventilator. The patient is following commands. He opens his eyes spontaneously. He grimaces to painful stimulation. At times, gets restless yet this is self-limiting and he calms down immediately following that.. Tracheostomy tube is in place without any evidence of air leak around the tracheostomy tube stoma. The patient is calm and comfortable and second is a mechanical ventilator. Head exam was generally normal. There was no scleral icterus or corneal arcus. Mucous membranes were moist. EYES: Pupils equal. Conjunctiva normal. HEENT: External appearance of nose and ears normal, oral cavity grossly normal. NECK: JVD not raised; masses not palpable. HEART: Heart sounds irregular; mild edema. LUNGS: decreased breath sound, prolonged expiration, coarse crackles. The breath sounds are diminished in lung bases bilaterally. ABDOMEN: Soft, distended, nontender, liver spleen not palpable, no masses palpable. The patient has extensive scrotal edema. DERMATOLOGICAL: Large wound around the lateral malleolus right foot Gangrene Changes. The patient has evidence of deep tissue injury to his coccyx/buttocks area. MUSCULOSKELETAL:No Clubbing/cyanosis;muscles-grossly intact, increase in low back pain with movement NEUROLOGICAL: Patient is having unusual facial features where he rotates his neck and had, 6 his tongue, moves his eyebrows, some twitching of the face and all of these movements are nonpurposeful. No agitation, the patient withdraws to painful stimulation. He is not following commands yet. He opens his eyes spontaneously. No seizure activity has been noted. LYMPHATICS: No lymph nodes palpable in the axilla and neck. The patient has extensive edema in lower extremities and upper extremity is bilaterally. He has an arterial line in his right radial. - Labs CBC & Chem 7: 02/22/22 04:40 02/22/22 04:40 Labs: Abnormal Lab Results - Last 24 Hours (Table) 02/21/22 02/21/22 02/21/22 Range/Units 05:34 11:33 17:55 RBC (4.30-5.90) m/uL Hgb (13.0-17.5) gm/dL Hct (39.0-53.0) % MCHC (31.0-37.0) g/dL RDW (11.5-15.5) % Lymphocytes # (1.0-4.8) k/uL ABG pO2 (83-108) mmHg ABG HCO3 (21-25) mmol/L ABG Total CO2 (19-24) mmol/L BUN (9-20) mg/dL Creatinine (0.66-1.25) mg/dL Glucose (74-99) mg/dL POC Glucose (mg/dL) 115 H 117 H (70-110) mg/dL Calcium (8.4-10.2) mg/dL Iron 43 L (65-175) ug/dL TIBC 158 L (228-460) ug/dL Transferrin 113.0 L (204.0-354.0) mg/dL Ferritin 511.0 H (22.0-322.0) ng/mL 02/21/22 02/22/22 02/22/22 Range/Units 20:09 04:40 04:40 RBC 2.38 L (4.30-5.90) m/uL Hgb 6.9 L* (13.0-17.5) gm/dL Hct 23.1 L (39.0-53.0) % MCHC 29.7 L (31.0-37.0) g/dL RDW 20.7 H (11.5-15.5) % Lymphocytes # 0.8 L (1.0-4.8) k/uL ABG pO2 (83-108) mmHg ABG HCO3 (21-25) mmol/L ABG Total CO2 (19-24) mmol/L BUN 39 H (9-20) mg/dL Creatinine 3.11 H (0.66-1.25) mg/dL Glucose 100 H (74-99) mg/dL POC Glucose (mg/dL) 116 H (70-110) mg/dL Calcium 7.8 L (8.4-10.2) mg/dL Iron (65-175) ug/dL TIBC (228-460) ug/dL Transferrin (204.0-354.0) mg/dL Ferritin (22.0-322.0) ng/mL 02/22/22 02/22/22 Range/Units 05:48 06:14 RBC (4.30-5.90) m/uL Hgb (13.0-17.5) gm/dL Hct (39.0-53.0) % MCHC (31.0-37.0) g/dL RDW (11.5-15.5) % Lymphocytes # (1.0-4.8) k/uL ABG pO2 75 L (83-108) mmHg ABG HCO3 26 H (21-25) mmol/L ABG Total CO2 28 H (19-24) mmol/L BUN (9-20) mg/dL Creatinine (0.66-1.25) mg/dL Glucose (74-99) mg/dL POC Glucose (mg/dL) 122 H (70-110) mg/dL Calcium (8.4-10.2) mg/dL Iron (65-175) ug/dL TIBC (228-460) ug/dL Transferrin (204.0-354.0) mg/dL Ferritin (22.0-322.0) ng/mL Microbiology - Last 24 Hours (Table) 02/20/22 15:40 Acid Fast Bacilli Smear - Final Bronchoalviolar Lavage - Right Acid Fast Bacilli Culture - Preliminary 02/20/22 15:40 Gram Stain - Preliminary Bronchoalviolar Lavage - Right Bronchial Washings Culture - Preliminary 02/15/22 06:05 Blood Culture - Final Blood No Growth after 144 hours Assessment and Plan Plan: Acute hypercapnic respiratory failure, status post intubation and mechanical ventilation on 02/05/2022. The patient had prolonged respiratory failure and the patient currently has a tracheostomy tube in place inserted on 02/17/2022 and the patient has been off sedation for the past 24 hours. Unresponsiveness. The patient is not following any commands and does not do any purposeful activity and his been off sedation for the past 4 days. Neurologically, the patient's condition is unchanged and the patient is not following any commands. Some nonpurposeful twitching and movement of the face is taken out of his tongue. Rule out underlying seizure activity. Another neurologic evaluation is to be done.. Complete opacification of the right lung and the patient has moderate-sized bilateral pleural effusion and significant amount of atelectasis in the right lung along with volume loss. Despite this finding, the patient is oxygenating and ventilating adequately. Bronchoscopy was done yesterday and therapeutic it was suctioning and removal of mucous plugs from the right lung was completed yesterday. Repeat chest x-ray from today shows improved aeration of the right lung. The volume is still on the right lung and there is still a pleural effusion on the right in addition to pleural effusion on the left. We'll maintain daily dialysis. Awaiting results of the bronchioloalveolar lavage. The lavage is negative thus far. The patient remains on the same antibiotic coverage. The right lung is essentially opacified. I do not see the point in draining the right lung for a chest tube as long as the patient's neurologic function is on essentially impaired. Status post PEG tube placement 02/12/2022. The patient is receiving enteral feeding for nutritional support with vital high protein. Stenotrophomonas tracheobronchitis/bronchopneumonia, based on his sputum culture that was obtained on 02/05/2022. Methicillin sensitive staph. aureus bacteremia, based on the blood cultures was obtained on 02/01/2022. Repeat cultures on 02/14/2022 and 02/15/2022 were negative. Repeat blood culture on 02/04/2022 was negative. The patient also had staph aureus in the in the right ankle wound in combination with strep agalactiae, group B. The most recent blood cultures from 02/15/2020 to 02/15/2022 were negative. Acute kidney injury, patient was started on hemodialysis. Daily hemodialysis and ultrafiltration is being done. We'll try to optimize her volume status. The patient continues to have significant amount of edema in his right scrotum. The patient also has moderate-sized bilateral pleural effusions. The patient continues to have daily dialysis Right-sided rib fractures, traumatic in nature involving 8, 9 and 10th rib closed fall. right basilar pulmonary contusion, post fall Anterior wedge compression deformity level vertebral body with a 30% compression and multilevel degenerative disc disease Limited hemoptysis or contusion exacerbated by Coumadin toxicity , recovered COPD and chronic smoking Coumadin toxicity with an INR above 10 given vitamin K, recovered, the patient was switched to Levaquin was Ileus post NG tube insertion, recovered, the patient was given GoLYTELY and the patient had an adequate bowel movement activity enteral feeding to be restarted and the patient is having regular bowel movements and tolerating diet History of frequent falls, not a good candidate for anticoagulants delerium, change in the mental status COPD Chronic bronchitis/reactive to chronic smoking History of chronic atrial flutter maintained on metoprolol and anticoagulation with warfarin Chronic kidney disease, likely stage III, per history and currently the patient is dialysis dependent Stage II right ankle wound measuring 8.5 x 4 cm in size and surgical debridement has been done Unstageable deep tissue injury involving the Buttock bilateral obesity Possible obstructive sleep apnea Diabetic peripheral neuropathy Chronic back pain Degenerative arthritis Hyperlipidemia History of chronic back pain and degenerative arthritis History of renal calculus measuring 7 mm in size in the right renal pelvis Plan This patient's prognosis essentially poor. His outcome will essentially and on his neurologic status. On this covers that over the past 4 days, the patient has been off sedation and he has not shown any reasonable neurologic recovery. His activity and movements are essentially on purposeful and the patient is not following any commands. No seizure activity has been noted. I requested another neurologic evaluation of that he is off sedation. On a separate note, the patient has a completely opacified right lung which is a combination of atelectasis, mucous plugs and pleural effusion. I were the done a bronchoscopy on this patient and evacuated the mucous plugs. I do not see the need for a chest tube insertion immediately as long as the patient's respiratory status is stable and his neurologic functions are impaired. continue with the supportive care Continue ventilator support and no vent changes Bronchoscopy was done and there is some improved aeration on the right lung. Nevertheless on today's evaluation, the chest x-ray is showing ongoing opacified right lung probably related to effusion. We'll offer the patient chest PT and positioning. No need for chest tube insertion at this point in time. Continue daily dialysis Awaiting results of the bronchioloalveolar lavage, negative thus far Continue the same antibiotic coverage enteral feeding for nutritional support. Patient already has a PEG tube in place, continue enteral feeding for nutritional support Levemir Continue wound care and will discuss the findings with the general surgeon and see the patient will be a candidate for more debridement of his deep tissue injury of his buttocks bilaterally Cardiac rhythm is sinus with PACs Almost Levemir insulin 14 units at bedtime along with a sliding scale coverage Very poor prognosis based on the above-mentioned comorbidities. Evaluation that was done and more than 30 minutes. Time with Patient: Greater than 30
[2022-02-22 11:32] LABS: Glucose,Whole Blood 116 mg/dL (70-110)
[2022-02-22] MEDS: ANIDULAFUNGIN 100 MG in SODIUM CHLORIDE 0.9% 100 ML IVPB SCH (11:37)
--- NOTE | 2022-02-22 11:46 | P.PN ---
Progress Note - Text Progress Note Date: 02/22/22 Hospital course This is a 61-year-old patient who follows with Dr. Sridhar Chan. Chronic stable medical conditions include diabetes, hypertension, hyperlipidemia, chronic low back problems, cigarette smoker. At the baseline uses a walker. Patient slipped in the bathroom falling on his buttock. Was not able to get up. By the EMS report he had fallen 24 hours prior to the picking him up. Patient been complaining of pain in the right rib cage in the lower back. X-ray was negative for fracture. Patient continued to have significant pain especially with deep breathing. Patient also had a congestive cough and wheezing. Some bloody sputum. Denies any fever and chills. Patient also complaining of urinary retention and requesting a Shepard catheter. at the bedside. No fever no chills. Orthopedics consulted for the same. Patient normally has a bowel movement once a week. Patient also has a wound on the right foot lateral part of the ankles for about a week. Ischemic changes. From rubbing against a bedpost. Patient's INR in the ER was greater than 10. Was given vitamin K. 10 mg Patient bit with Coumadin toxicity, given vitamin K, acute COPD exacerbation, uncontrolled atrial flutter put on Lopressor, right chest wall pain. Computed tomography scan lumbar spine and chest was ordered. Large wound on the right lateral malleolus-ID and vascular consulted.. IV cefepime. February 01: Patient yesterday to see refused his computed tomography scan of the chest and lumbar spine. Done today. Right-sided rib fractures, pulmonary contusion confirm. L1 vertebral body 30% wedge compression fracture. Patient's girlfriend the bedside. It was discussed in detail with her. Patient wanting again and again to pull out his NG tube. Requests the to stay with the patient. Patient is also had the dark aspirate from the stomach for which she has NG tube. Surgery was consulted for the same. Also this morning right foot wound was debrided by Dr. Ibarra from vascular. Wound base was relatively clean. No undermining or tunneling. February 02: Delirious. NG tube to suction. Has been in restraints because point NG TUBE several times. Mumbling to himself. Dressing over the right ankle. Not in distress. Ileus. Chest x-ray showing right lower lobe/atel ectasis. February 03: Hospital computer system was down. Patient remains delirious. Nasal cannula. Lethargic. Family the bedside. Antibiotics. A. fib uncontrolled. EEG evidence of metabolic encephalopathy. No clear-cut epileptiform activity. Started on Keppra by neurology. February 04: ICU: Girlfriend at the bedside. In atrial fibrillation uncontrolled. On IV Cardizem and IV amiodarone. NG tube to suction. Patient lethargic. Multiple breathing. 2 L. Oxygen. February 05: ICU. Atrial fibrillation better controlled this morning. Cardizem discontinued. Patient respiratory status worsened this morning and patient is intubated. FiO2 45 and a PEEP of 5. Atrial fibrillation, controlled. Drips include amiodarone, propofol, levo fed. Discussed with girlfriend the bedside. Understands prognosis guarded. February 06: ICU: Ventilated. FiO2 45 and a PEEP of 5. NG tube is clamped. On IV propofol. Sedated. Heart rate better controlled. Was started on Coumadin yesterday. Worsening renal function. Nephrology consulted. 02/07/2022 Patient is currently in the MICU and on mechanical ventilator. Tidal volume of 400, FiO2 40% and PEEP of 5. Patient is off pressor support today. Currently on propofol and is also on tube feeding. Chest x-ray showed stable exam with stable support lines and tubes. Correlate for congestive heart failure. Patient was given a dose of IV Lasix. Laboratory data showed WBC 18.4 hemoglobin 11.6 and platelets 458 Sodium 141 potassium 3.7 chloride 103 bicarb is 18 BUN 49 and creatinine 3.73 and calcium 7.3. INR is 2.2. Patient is being followed by nephrology cardiology and critical care team. 02/08/2022 Patient is currently on mechanical ventilator and sedated with propofol. Assist control with FiO2 40% and tidal volume of 400 and PEEP of 5. Patient is being continued on antibiotics above cefepime and Flagyl. Sputum gram stain gram-negative bacilli and Lynda. Chest x-ray today showed findings suggestive of slightly worsening CHF exacerbation as there is cardiomegaly with mild to moderate central venous congestion and small to moderate-sized bilateral pleural effusion. Laboratory test showed WBC increased to 23.6 hemoglobin 9.1 and platelets 162 INR 3.0 Sodium 139 potassium 4.3 chloride 113 bicarb is 40 BUN 54 and creatinine worsening to 4.36 February 09: I resumed the care of patient today ICU: Med: 40/5. Received vitamin K 5 mg IV to bring the INR down for dialysis catheter. Drips include bicarbonate, propofol, epinephrine. Patient is a stage II coccyx is ulcer. Plan is to change the NG tube to on G-tube today. For possible colitis/fistula on antibiotics. at the bedside. February 10: ICU. Ventilator 50/5. Hemodialysis catheter placed last night. Hemodialyzed yesterday and getting dialyzed today. Remains in atrial fibrillation heart rate uncontrolled. Getting up sedation holiday. Drips include bicarbonate and norepinephrine. Propofol currently held. 2 feeding at 46 mL an hour. Does open eyes. February 11: ICU. Ventilator. 50/5. Third day for hemodialysis. 1.5 L to be removed today. Back on propofol. Drips include bicarbonate, norepinephrine, propofol. On G-tube feeding. Patient back in sinus rhythm. Bag and tracheostomy to planning for next week. 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 IV antifungal started by ID. February 12: ICU: Ventilator: 40/5. Telemetry shows sinus rhythm. Drips include propofol and norepinephrine. On G-tube feeding. Discussed with the at the bedside. Understands prognosis guarded. IV antibiotics and antifungals. February 13: ICU: Ventilator: 40/5. PEG tube placed yesterday by Dr. Cornejo. Drips include bicarbonate, propofol, norepinephrine. Getting hemodialysis done today. February 14: ICU: Medicated. 2 feeding at 65 mL an hour. This included propofol and norepinephrine. Hemodialysis done today. Sinus rhythm. February 15: ICU: Ventilator: 40/5. 2 feeding at 65 mL an hour. Drips include propofol and norepinephrine. No hemodialysis today. at the bedside. Discussed. 02/16/2022 Patient seen and evaluated and follow-up continues to be in the ICU on mechanical ventilation with sedation with multiple medical consultations following. Patient is currently receiving hemodialysis and continues with a temporary dialysis catheter. Patient is still full code and overall prognosis remains extremely poor and guarded. Patient's FiO2 is 40% with a PEEP of 5. Patient also continues on antifungal along with cefepime and metronidazole with infectious disease following. Patient is sedated on propofol continues on Levophed as well. WBC is 12.9 with hemoglobin of 8.7, sodium is 134 with a potassium of 4.5 current creatinine is 4.69 with a BUN of 66. Patient is maintained on tube feedings and has received the PEG tubing is scheduled for tracheostomy tentatively today if OR available. Again overall prognosis remains extremely guarded. 02/17/2022 Patient continues to be in the ICU on mechanical vent and FiO2 remains 40% with a PEEP of 5. Patient continues on norepinephrine with multiple medical consultations following. Patient continues on propofol for sedation and also was maintained on hemodialysis almost daily. Patient continues on cefepime along with an antifungal and Flagyl with anxiety following sputum culture showing 16 oh troph ammonias maltophilia with Lynda most recent blood cultures have been negative. Patient is afebrile although WBC is elevated at 14.5 and hemoglobin is 8.9, BUN is 61 with a creatinine of 4.55, sodium is 135 and sodium bicarb tablets have been discontinued. Magnesium was 1.9. Plan is tentatively scheduled for tracheostomy with general surgery today post hemodialysis. Overall prognosis is extremely guarded. Chest x-ray shows continued bilateral pleural effusions with no significant change from previous day. Patient is maintained on tube feedings via PEG tube although on hold for surgery today 02/18/2022 Patient is seen and evaluated continues to be in the ICU with multiple medical consultations following. Patient is status post tracheostomy placement with Dr. Villegas yesterday evening and tolerating well with no leaks noted. Patient continues on FiO2 of 40% with a PEEP of 5. Patient undergoing sedation holiday and propofol was recently turned off. Patient is awake and opening eyes spontaneously although not following commands on exam. Patient is looking around the room and mouthing words with no comprehension. Patient with extensive wounds of the sacro-coccyx region that are currently unstageable and general surgery is following and may possibly require debridement of these areas. Patient is status post debridement of the right foot previously. Patient is maintained on antibiotics along with antifungal's and infectious disease is following. Patient is afebrile and WBC is 10.6, hemoglobin is 8.4, patient is also with a BUN of 50 and creatinine is 3.78, magnesium is 1.8. Patient is being closely monitored by nephrology with a temporary site of the right femoral receiving daily dialysis. Patient continues on low-dose Levophed and working on weaning as tolerated. PEG tube feedings are at goal and to lerating. Overall prognosis remains extremely guarded. 02/19/2022 Patient is seen in follow-up this morning and has been off propofol since yesterday although continues to not follow commands. Multiple medical consultations following. Patient is status post recent tracheostomy and also PEG tube placement and has been resumed on tube feedings and tolerating at goal. Patient is continuing on hemodialysis with a right groin temporary catheter. Chest x-ray this morning shows some possible progression of pleural effusions and airspace disease or atelectasis especially in the right lung. Nursing staff questioning about anticoagulation and his Coumadin was on hold for tracheostomy and patient is being started on eliquis. Patient continues on antibiotics as well in the form of cefepime and Flagyl and antifungal's with anxiety following. Patient also continues on low-dose Levophed. Patient continues on mechanical ventilation via tracheostomy with an FiO2 of 60. Patient scheduled to receive dialysis again today. General surgery is following and may be required for debridement of the decubitus ulcers once more stable. Pulmonary discussing possible thoracentesis in the near future. Patient is currently afebrile. Prognosis remains extremely guarded. February 20: Patient was being covered by [facility] last 4 days. ICU. Ventilator. FiO2 16 a PEEP of 8. Has a PEG and trach. Awake, drowsy. On norepinephrine. at the bedside. February 21: ICU: Ventilator. FiO2 60 PEEP of 8. Hemodialysis today. Drips include norepinephrine. Sinus tachycardia. Does open eyes. Sticks his tongue. Drowsy. Not really following commands February 22: ICU: Ventilator. FiO2 16 a PEEP of 8. Patient is in and out of atrial fibrillation. Does open eyes and sticks his tongue out intermittently. Nonpurposeful. Currently on levo fed drip small dose. Midodrine has been added. 2 feeding at 25 mL an hour. at the bedside. Active Medications Acetaminophen (Acetaminophen Tab 325 Mg Tab) 650 mg PO Q6HR PRN PRN Reason: Mild Pain or Fever > 100.5 Albuterol/Ipratropium (Ipratropium-Albuterol 3 Ml Neb) 3 ml INHALATION RT-QID S Last Admin: 02/22/22 11:14 Dose: 3 ml Amiodarone HCl (Amiodarone 200 Mg Tab) 200 mg PO BID [facility] Last Admin: 02/22/22 09:31 Dose: 200 mg Apixaban (Apixaban 2.5 Mg Tablet) 2.5 mg PO BID [facility]; Protocol Last Admin: 02/22/22 09:31 Dose: 2.5 mg Artificial Tears (Artificial Tears-Hypromellose Drops 15 Ml Btl) 2 drops BOTH EYES TID PRN PRN Reason: Dry Eye(s) Budesonide (Budesonide 1 Mg/2 Ml Nebu) 1 mg INHALATION RT-BID [facility] Last Admin: 02/22/22 07:13 Dose: 1 mg Calcium Acetate (Calcium Acetate 667 Mg Tab) 667 mg PO TID-W/MEALS [facility] Calcium Carbonate/Glycine (Calcium Carbonate 500 Mg Chewable) 1,000 mg PO Q4HR PRN PRN Reason: Dyspepsia Last Admin: 01/31/22 14:29 Dose: 1,000 mg Chlorhexidine Gluconate (Chlorhexidine Gluconate 15 Ml Cup) 15 ml MUCOUS MEM BID [facility] Last Admin: 02/22/22 09:31 Dose: 15 ml Collagenase (Collagenase 250 Unit/Gm Ointment 30 Gm Tube) 1 applic TOPICAL DAILY [facility]; Protocol Last Admin: 02/22/22 09:32 Dose: 1 applic Darbepoetin Mann (Darbepoetin Mann 60 Mcg/0.3 Ml Syringe) 60 mcg SQ Q7D [facility] Last Admin: 02/18/22 18:34 Dose: 60 mcg Dextrose/Water (Dextrose 50% Syringe 50 Ml) 25 ml IVP PER PROTOCOL PRN; Protocol PRN Reason: Hypoglycemia Last Admin: 02/06/22 18:11 Dose: 25 ml Dextrose/Water (Dextrose 50% Syringe 50 Ml) 50 ml IVP PER PROTOCOL PRN; Protocol PRN Reason: Hypoglycemia Propofol 1,000 mg/ IV Solution 100 mls @ 4.08 mls/hr IV .Q24H [facility]; Protocol Last Admin: 02/21/22 17:41 Dose: Not Given Metronidazole 500 mg/ IV (Solution) 100 mls @ 100 mls/hr IVPB Q8HR [facility]; Protocol Last Admin: 02/22/22 09:31 Dose: 100 mls/hr Cefepime HCl 1 gm/ Sodium (Chloride) 50 mls @ 12.5 mls/hr IVPB Q12HR [facility] Last Admin: 02/22/22 09:31 Dose: 12.5 mls/hr Norepinephrine Bitartrate 32 (mg/ Sodium Chloride) 250 mls @ 3.246 mls/hr IV .Q24H [facility]; Protocol Last Titration: 02/22/22 06:46 Dose: 0.02 mcg/kg/min, 1.298 mls/hr Anidulafungin 100 mg/ Sodium (Chloride) 100 mls @ 84 mls/hr IVPB DAILY [facility]; Protocol Last Admin: 02/22/22 11:37 Dose: 84 mls/hr Insulin Aspart (Insulin Aspart (Novolog) 100 Unit/Ml Vial) 0 unit SQ Q6HR [facility]; Protocol Last Admin: 02/22/22 11:38 Dose: Not Given Insulin Detemir (Insulin Detemir (Levemir) 100 Unit/Ml Syr) 14 unit SQ HS [facility] Last Admin: 02/21/22 20:09 Dose: 14 unit Lactulose (Lactulose 20 Gm/30 Ml Cup) 30 gm PO DAILY [facility] Last Admin: 02/22/22 09:36 Dose: 30 gm Levetiracetam (Levetiracetam 250 Mg Tab) 250 mg PO DAILY [facility] Last Admin: 02/22/22 09:31 Dose: 250 mg Metoprolol Tartrate (Metoprolol Tartrate 25 Mg Tab) 25 mg PO BID [facility] Last Admin: 02/22/22 09:31 Dose: 25 mg Midodrine (Midodrine 5 Mg Tab) 5 mg PO AC-TID [facility] Last Admin: 02/22/22 09:31 Dose: 5 mg Miscellaneous Information (Potassium Replacement Protocol 1 Each Misc) 1 each MISCELLANE DAILY PRN; Protocol PRN Reason: Per Protocol Miscellaneous Information (Magnesium Replacement Protocol 1 Each Misc) 1 each MISCELLANE DAILY PRN; Protocol PRN Reason: Per Protocol Morphine Sulfate (Morphine Oral Soln 10 Mg/5 Ml Cup) 15 mg PO Q12H [facility] Last Admin: 02/22/22 11:37 Dose: 15 mg Naloxone HCl (Naloxone 0.4 Mg/Ml 1 Ml Vial) 0.2 mg IV Q2M PRN PRN Reason: Opioid Reversal Ondansetron HCl (Ondansetron 4 Mg/2 Ml Vial) 4 mg IVP Q8HR PRN PRN Reason: Nausea And Vomiting Last Admin: 02/02/22 08:41 Dose: 4 mg Pantoprazole Sodium (Pantoprazole 40 Mg/10 Ml Vial) 40 mg IVP BID [facility] Last Admin: 02/22/22 09:31 Dose: 40 mg Pregabalin (Pregabalin 100 Mg Cap) 100 mg PO BID [facility] Last Admin: 02/22/22 09:31 Dose: 100 mg Past medical history to include: COPD, diabetes, hypertension, hyperlipidemia, back problems, TB, atrial fibrillation, on Coumadin Social history: Smokes a pack a day for close to 50 years. Stop doing alcohol some time ago. Lives with his significant other Sandra. Does use a walker. 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 Occasionally opens eyes and stick his tongue out- nonpurposeful EYES: Pupils equal. Conjunctiva normal. HEENT: External appearance of nose and ears normal, oral cavity dry, tracheosto my NECK: JVD not raised; masses not palpable. HEART: Heart sounds regular; mild edema. LUNGS: Respiratory rate increased; decreased breath sound, ABDOMEN: Soft, distended, nontender, liver spleen not palpable, no masses palpable. PEG tube. PSYCH: Unable to assess, patient lethargic DERMATOLOGICAL: Wound on right ankle lateral malleolus. Under dressing. Stage II coccygeal breakdown. See nursing notes INVESTIGATIONS, reviewed in the clinical context: January 2015: WBC 8 hemoglobin 6.9 platelets 161 potassium 4.2. 39 creatinine 3.11 February 21: WBC 10.1 hemoglobin 7.5 platelets 134 potassium 4.5 BUN 48 creatinine 3.24 February 20: WBC 10.5 hemoglobin 7.2 platelets 90 sodium 137 potassium 4 BUN 44 creatinine 3.18 February 15: WBC 13.9 hemoglobin 9.6 platelets 96 potassium 4.4 BUN 59 creatinine 4.21 procalcitonin 2.05 Acute hepatitis screen: Negative Complement C3 78, complement C4 19.6 February 11: Sodium 138 potassium 4.4 creatinine 4.19 Sputum: Stenostrophonas maltophilia, Lynda albicans Computed tomography scan abdomen and pelvis [February 06] 6 mm stone in the right renal collecting system. Some circumferential wall thickening of the cecum and ascending colon. Distention of the rectum 7.5 cm with solid stool. EEG: Evidence of encephalopathy. No obvious epileptiform activity. 2-D echocardiogram: EF 60-65%. Renal ultrasound: Shows bilateral normal cortical medullary thickness. February 01: WBC 17.1 hemoglobin 14.8 UA: Blood large, leukoesterase moderate WBC 28 nitrite negative Lumbar spine CT: Anterior wedge compression deformity of L1. Multiple level DJD. 7 mm calculus right renal pelvis. CT chest without contrast: Right lateral eighth through 10th rib fractures with associated gas trace hemothorax right lower lobe pulmonary contusion/atelecta sis. Patchy) disease left upper lobe. WBC 25.8 hemoglobin 14.1 platelets 217 INR greater than 10 sodium 131 potassium 3.9. 24 creatinine 1.8 to EKG tracing personally reviewed by me-atrial flutter. Rate 132 Foot/Lumbar/sacral coccyx: Spondylitic changes. No fracture. Chest x-ray film personally reviewed by me-clinically. Possible hyperinflation Assessment and plan: -Coumadin toxicity. INR greater than 10. On presentation: 10 mg vitamin K in the ER. Hemoptysis on presentation. Coumadin resumed on February 05.. - right lung contusion.-Secondary to fall. hemoptysis on presentation -Pneumonia, secondary to Stenostrophonas maltophilia, Lynda albicans: Slow to respond IV cefepime, IV anidulafungin -Sepsis with positive blood cultures MSSA, likely source right ankle. From Jan. IV cefepime. February 04 blood culture negative -Acute hypoxic respiratory failure, multifactorial: ventilator support,: Slow to respond Patient intubated on February 05 -Acute COPD exacerbation, with chronic bronchitis component in a current smoker: Slow to respond DuoNeb. Nebulized Pulmicort. Mucinex. -Chronic nicotine dependence, cigarette smoker Nicotine patch -Paroxysmal atrial flutter,: Back in sinus rhythm Lopressor 50 mg 3 times a day. 2-D echocardiogram unremarkable. Oral amiodarone Coumadin started on February 05 -Possible CK D with possible acute component. creatinine was 0.8 in April 2019. Renal ultrasound unremarkable. UA shows trace protein. IV fluids.. -Acute kidney injury, ATN, likely cardiorenal syndrome.: Not improving Follow with nephrology. Daily Hemodialysis started February 09 -Acute right-sided 8-10 ribs fracture secondary to fall K pad -Diabetes mellitus type 2, chronically on oral hypoglycemic Sliding scale insulin. Levemir 14 units daily at bedtime -Diabetic peripheral neuropathy Decreased dose of Lyrica in the setting of renal failure. 100 mg twice a day -Chronic low back pain: MS Contin 15 mg every 12, Coy 7.5 twice a day when necessary -Anxiety depression not otherwise specified Wellbutrin XL 100 mg twice a day -Hyperlipidemia Lipitor 40 mg daily at bedtime -Right ankle lateral, diabetic wound, stage II acute. Wound culture positive for Streptococcus agalactiae and Staphylococcus aureus. IV Ancef initially. Follow with ID Patient has poor distal pulses. February 01 wound was debrided by Dr. Ibarra. Clean base. -Acute L1 30% wedge fracture secondary to fall LSO brace. Be followed by Dr. Damon -Acute delirium multifactorial. Slow to respond -Acute ileus, NG tube for decompression.; clamped.: Corrected Being followed by surgery. -Possible colitis /fistula on computed tomography scan. IV Flagyl. Cefepime. Followed by surgery -Normocytic anemia, multifactorial. Chronic disease component, hospital- acquired/blood draw and infection. Suspicions hypotensive requiring levo fed will transfuse a unit of blood. IV norepinephrine. IV Flagyl,/IV cefepime/IV anidulafungin. PEG tube feeding at 25 mL an hour.. Blood pressure running low, 1 unit of blood for hemoglobin 6.9.
[2022-02-22] MEDS: CALCIUM ACETATE 667 MG TAB PO SCH ×2 (12:54→17:24)
--- NOTE | 2022-02-22 16:55 | P.PN ---
Subjective Progress Note Date: 02/22/22 02/22/2022: This is a telemedicine neurology follow performed today on 02/22/2022. Dr. Delatorre requested neurological follow-up. Patient is off sedation for last 4 days since 02/18/2022. His mentation has not improved. Continues to be severely encephalopathic. Patient has a tracheostomy and PEG tube placement. Patient has nonpurposeful movement. His face continues to be twitching intermittently. He has some mouth and tongue movements noted. 02/19/2022: Patient was seen for a follow-up. Patient had undergone tracheostomy on 02/17/2022. Patient is off sedation since yesterday. He is quite alert, awake, appears somewhat encephalopathic. He does open his eyes primo indigo to calling his name. He makes eye contact, turns his head towards the examiner. However he is not following commands. 02/17/2022: Patient was seen for a follow-up. Patient continues to be intubated, sedated with propofol 50 mcg/kg/m. No clinical improvement. Patient continues to be severely encephalopathic. Patient undergoing tracheostomy today. He already had pack placement. With sedation holiday, patient does not follow commands. He does not tolerate sedation holiday. 02/08/2022: Patient was seen for a follow-up. Patient has been intubated. Currently on propofol 40 mcg/kg/m. No seizure like activity or twitching noticed. Patient's blood pressure was low today, patient started on Levophed. Patient's significant other has mentioned that patient has frequent falls for last 2 years for which he uses a walker. Without walker, his legs give out and he falls. He has broke one leg, and fractured the other. She believes that he may had a bedsore in the right ankle for 2 days prior to arrival. Then she saw a red line going up the leg. There is no fever or chills. She says that he fell at home going to the bathroom just prior to arrival to the hospital. Patient's mentation was fine when he arrived. However mentation has progressively got worse while in the hospital. Objective - Vital Signs Vital signs: Vital Signs Temp 98.2 F 02/22/22 16:00 Pulse 107 H 02/22/22 16:30 Resp 24 09/25/22 16:30 BP 119/52 02/22/22 15:51 Pulse Ox 98 02/22/22 16:30 FiO2 60 02/22/22 16:00 Intake & Output 02/21/22 02/22/22 02/22/22 18:59 06:59 18:59 Intake Total 748.461 736.467 774.616 Output Total 1530 25 25 Balance -781.539 711.467 749.616 Weight 154 kg Intake: IV 584 348.0 530 0.9% Sodium Chloride @ 195 165 150 10mls/hr Anidulafungin 100 mg In 100 100 Sodium Chloride 0.9% 100 ml @ 84 mls/hr IVPB DAILY [facility] Rx#:[id number] Cefepime 1 gm In Sodium 50 50.0 50 Chloride 0.9% 50 ml @ 12. 5 mls/hr IVPB Q12HR [facility] Rx#:[id number] Pressure bags 39 33 30 metroNIDAZOLE-NS PMX 500 200 100 200 mg In Saline 1 100ml.bag @ 100 mls/hr IVPB Q8HR [facility] Rx#:[id number] Intake, IV Titration 34.461 23.467 9.616 Amount Norepinephrine 32 mg In 34.461 23.467 9.616 Sodium Chloride 0.9% 218 ml @ 0.05 MCG/KG/MIN 3. 246 mls/hr IV .Q24H [facility] Rx#:[id number] Tube Feeding 100 275 175 Blood Product 0 Rc As-1 Unit 0 [id number] Other 30 90 60 Output: Urine 30 25 25 Hemodialysis 1500 Other: Voiding Method Indwelling Catheter Indwelling Catheter Indwelling Catheter # Bowel Movements 1 ABP, PAP, CO, CI - Last Documented Arterial Blood Pressure 105/48 - Exam On general examination patient is morbidly obese, laying supine in the bed, does not appear to be in distress. Patient has tracheostomy. Patient is off sedation. Patient is quite alert and awake but appears significantly encephalopathic. Patient opens his eyes to calling his name, turns his head towards the examiner, makes eye contact. However he is not following any commands. Appears to have some mouth movement, tongue thrusting at times. Concerning for TD. Appears generalized weak as well. Patient has significant peripheral edema. Pupils are equal, round and reactive to light. - Labs CBC & Chem 7: 02/22/22 04:40 02/22/22 04:40 Labs: Abnormal Lab Results - Last 24 Hours (Table) 02/21/22 02/21/22 02/21/22 Range/Units 05:34 17:55 20:09 RBC (4.30-5.90) m/uL Hgb (13.0-17.5) gm/dL Hct (39.0-53.0) % MCHC (31.0-37.0) g/dL RDW (11.5-15.5) % Lymphocytes # (1.0-4.8) k/uL ABG pO2 (83-108) mmHg ABG HCO3 (21-25) mmol/L ABG Total CO2 (19-24) mmol/L BUN (9-20) mg/dL Creatinine (0.66-1.25) mg/dL Glucose (74-99) mg/dL POC Glucose (mg/dL) 117 H 116 H (70-110) mg/dL Calcium (8.4-10.2) mg/dL Iron 43 L (65-175) ug/dL TIBC 158 L (228-460) ug/dL Transferrin 113.0 L (204.0-354.0) mg/dL Ferritin 511.0 H (22.0-322.0) ng/mL Crossmatch 02/22/22 02/22/22 02/22/22 Range/Units 04:40 04:40 05:48 RBC 2.38 L (4.30-5.90) m/uL Hgb 6.9 L* (13.0-17.5) gm/dL Hct 23.1 L (39.0-53.0) % MCHC 29.7 L (31.0-37.0) g/dL RDW 20.7 H (11.5-15.5) % Lymphocytes # 0.8 L (1.0-4.8) k/uL ABG pO2 75 L (83-108) mmHg ABG HCO3 26 H (21-25) mmol/L ABG Total CO2 28 H (19-24) mmol/L BUN 39 H (9-20) mg/dL Creatinine 3.11 H (0.66-1.25) mg/dL Glucose 100 H (74-99) mg/dL POC Glucose (mg/dL) (70-110) mg/dL Calcium 7.8 L (8.4-10.2) mg/dL Iron (65-175) ug/dL TIBC (228-460) ug/dL Transferrin (204.0-354.0) mg/dL Ferritin (22.0-322.0) ng/mL Crossmatch 02/22/22 02/22/22 02/22/22 Range/Units 06:14 11:31 12:51 RBC (4.30-5.90) m/uL Hgb (13.0-17.5) gm/dL Hct (39.0-53.0) % MCHC (31.0-37.0) g/dL RDW (11.5-15.5) % Lymphocytes # (1.0-4.8) k/uL ABG pO2 (83-108) mmHg ABG HCO3 (21-25) mmol/L ABG Total CO2 (19-24) mmol/L BUN (9-20) mg/dL Creatinine (0.66-1.25) mg/dL Glucose (74-99) mg/dL POC Glucose (mg/dL) 122 H 116 H (70-110) mg/dL Calcium (8.4-10.2) mg/dL Iron (65-175) ug/dL TIBC (228-460) ug/dL Transferrin (204.0-354.0) mg/dL Ferritin (22.0-322.0) ng/mL Crossmatch See Detail Microbiology - Last 24 Hours (Table) 02/20/22 15:40 Gram Stain - Preliminary Bronchoalviolar Lavage - Right Bronchial Washings Culture - Preliminary Gram Neg Bacilli 02/20/22 15:40 Acid Fast Bacilli Smear - Final Bronchoalviolar Lavage - Right Acid Fast Bacilli Culture - Preliminary Assessment and Plan Assessment: * Metabolic encephalopathy, persistent, severe. * Ventilator-dependent respiratory failure, now has tracheostomy. * Septicemia with staph aureus. * Uremia on dialysis * Anemia, worsening * Cellulitis with right foot ulcer * Abnormal CT of abdomen and pelvis. Report reviewed. * Status post fall with L1 compression fracture * Coagulopathy * Right sided rib fractures secondary to fall. * Atrial fibrillation on long-term anticoagulation with Coumadin. Now started on Eliquis * Peripheral edema. * Long-standing history of frequent falls, uses walker * COPD * Chronic tobacco use * Diabetes with hemoglobin A1c 8.1 * Probable diabetic peripheral neuropathy. * Peripheral arterial disease Plan: * Patient is off sedation since 02/18/2022. Patient continues to be severely encephalopathic. * Repeat CT head, and EEG in the morning. * Patient has multiple medical issues. Multiple specialties on board. * Repeat EEG 02/11/2022 was abnormal, with background slowing, suggestive of severe encephalopathy likely due to toxic metabolic causes. No epileptiform activity was seen. 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 Mild atrophy. * Decreased Keppra down to 250 mg daily on 02/19/2022. If the patient recovers, then Keppra can be weaned off. * Medical management as per IM and critical care. * Patient has septicemia with staph aureus. ID following patient currently on cefepime 1 g every 12 hours. * Carotid Doppler revealed no significant stenosis. Antegrade flow in both vertebral arteries. * 2-D echo revealed normal left-ventricular size with concentric LVH. EF is 60- 65%. * Patient has atrial fibrillation. Patient now started on Eliquis 2.5 mg twice a day. * Dr. Chava Jackson Will resume neurology service in the morning.
--- NOTE | 2022-02-22 17:17 | P.PN ---
Subjective Progress Note Date: 02/21/22 Principal diagnosis: Right foot infected pressure ulcer and bacteremia Patient is a 61-year-old male presented to the hospital for evaluation of fall patient also noticed to have a wound on the right lateral foot with some necrotic edges which has been debridement by vascular surgery on 01/31/2022.Patient has been transthoracic because of significant mental status changes, The patient ended up getting intubated, the patient also have worsening of the kidney function requiring dialysis catheter placement and has been started on dialysis as of 02/09/2022, the patient did have a PEG tube placement on 02/12/2022 , The patient is s/p tracheostomy completed on 02/17/2022, the patient is status post bronchoscopy completed on 02/20/2022 On today's evaluation that is 02/21/2022, The patient remains to be afebrile the patient remains to be intubated on the vent and FiO2 is stable at 60% and has been requiring low-dose pressor support per the nursing staff especially the time of dialysis, no diarrhea has been reported Objective - Vital Signs Vital signs: Vital Signs Temp 98.2 F 02/21/22 12:00 Pulse 121 H 02/21/22 12:15 Resp 24 02/21/22 12:15 BP 101/61 02/21/22 07:00 Pulse Ox 93 L 02/21/22 12:15 FiO2 60 02/21/22 12:00 Intake & Output 02/20/22 02/21/22 02/21/22 18:59 06:59 18:59 Intake Total 1492.560 385.118 258 Output Total 526 435 5 Balance 966.560 -49.882 253 Weight 156 kg 158 kg Intake: IV 566 366 258 0.9% Sodium Chloride @ 180 180 90 10mls/hr Anidulafungin 100 mg In 100 Sodium Chloride 0.9% 100 ml @ 84 mls/hr IVPB DAILY [facility] Rx#:[id number] Cefepime 1 gm In Sodium 50 50 50 Chloride 0.9% 50 ml @ 12. 5 mls/hr IVPB Q12HR [facility] Rx#:[id number] Pressure bags 36 36 18 metroNIDAZOLE-NS PMX 500 200 100 100 mg In Saline 1 100ml.bag @ 100 mls/hr IVPB Q8HR [facility] Rx#:[id number] Intake, IV Titration 96.560 19.118 Amount Norepinephrine 32 mg In 96.560 19.118 Sodium Chloride 0.9% 218 ml @ 0.05 MCG/KG/MIN 3. 246 mls/hr IV .Q24H [facility] Rx#:[id number] Tube Feeding 390 Hemodialysis 350 Other 90 Output: Gastric Drainage 500 400 Urine 25 35 5 Stool 1 Other: Voiding Method Indwelling Catheter Indwelling Catheter ABP, PAP, CO, CI - Last Documented Arterial Blood Pressure 110/50 - Exam GENERAL DESCRIPTION: Middle-aged male intubated Through the trach LUNGS: Unlabored breathing. Decreased breath sound at the base HEART: S1, S2, regular rate and rhythm. ABDOMEN: Soft, no tenderness , guarding or rigidity, no organomegaly EXTREMITIES: Right foot wound is currently dressed no drainage on the dressing - Labs CBC & Chem 7: 02/22/22 04:40 02/22/22 04:40 Labs: Abnormal Lab Results - Last 24 Hours (Table) 02/20/22 02/20/22 02/20/22 Range/Units 17:52 20:44 23:28 RBC (4.30-5.90) m/uL Hgb (13.0-17.5) gm/dL Hct (39.0-53.0) % MCHC (31.0-37.0) g/dL RDW (11.5-15.5) % Plt Count (150-450) k/uL Neutrophils # (1.3-7.7) k/uL Lymphocytes # (1.0-4.8) k/uL ABG pCO2 (35-45) mmHg ABG pO2 (83-108) mmHg ABG HCO3 (21-25) mmol/L ABG Total CO2 (19-24) mmol/L ABG O2 Saturation (94-97) % BUN (9-20) mg/dL Creatinine (0.66-1.25) mg/dL Glucose (74-99) mg/dL POC Glucose (mg/dL) 129 H 121 H 127 H (70-110) mg/dL Calcium (8.4-10.2) mg/dL 02/21/22 02/21/22 02/21/22 Range/Units 05:31 05:34 05:34 RBC 2.51 L (4.30-5.90) m/uL Hgb 7.5 L (13.0-17.5) gm/dL Hct 25.0 L (39.0-53.0) % MCHC 29.8 L (31.0-37.0) g/dL RDW 20.2 H (11.5-15.5) % Plt Count 134 L (150-450) k/uL Neutrophils # 8.1 H (1.3-7.7) k/uL Lymphocytes # 0.9 L (1.0-4.8) k/uL ABG pCO2 (35-45) mmHg ABG pO2 (83-108) mmHg ABG HCO3 (21-25) mmol/L ABG Total CO2 (19-24) mmol/L ABG O2 Saturation (94-97) % BUN 48 H (9-20) mg/dL Creatinine 3.24 H (0.66-1.25) mg/dL Glucose 112 H (74-99) mg/dL POC Glucose (mg/dL) 119 H (70-110) mg/dL Calcium 7.7 L (8.4-10.2) mg/dL 02/21/22 02/21/22 Range/Units 05:56 11:33 RBC (4.30-5.90) m/uL Hgb (13.0-17.5) gm/dL Hct (39.0-53.0) % MCHC (31.0-37.0) g/dL RDW (11.5-15.5) % Plt Count (150-450) k/uL Neutrophils # (1.3-7.7) k/uL Lymphocytes # (1.0-4.8) k/uL ABG pCO2 47 H (35-45) mmHg ABG pO2 63 L (83-108) mmHg ABG HCO3 26 H (21-25) mmol/L ABG Total CO2 28 H (19-24) mmol/L ABG O2 Saturation 91.2 L (94-97) % BUN (9-20) mg/dL Creatinine (0.66-1.25) mg/dL Glucose (74-99) mg/dL POC Glucose (mg/dL) 115 H (70-110) mg/dL Calcium (8.4-10.2) mg/dL Microbiology - Last 24 Hours (Table) 02/20/22 15:40 Gram Stain - Preliminary Bronchoalviolar Lavage - Right Bronchial Washings Culture - Preliminary 02/15/22 06:05 Blood Culture - Final Blood No Growth after 144 hours 02/20/22 15:40 Fungal Culture - Preliminary Bronchoalviolar Lavage - Right 02/20/22 15:40 Acid Fast Bacilli Culture - Preliminary Bronchoalviolar Lavage - Right Assessment and Plan (1) Cellulitis Current Visit: Yes Status: Acute Code(s): L03.90 - CELLULITIS, UNSPECIFIED SNOMED Code(s): 682552998 Plan: 1patient with right foot unstageable pressure ulcer with surrounding necrotic area and cellulitis On admission,x-rays do not show any bony changes likely from gram-positive skin caleb and less likely gram-negative pathogen, patient is status post vascular surgery evaluation and debridement and deep cultureWhich has been finalized with strep and MSSA. 2-patient with MSSA bacteremia source is likely right foot infected pressure ulcer, Repeat blood culture has been negative 3Patient did have significant abnormality seen on the CT obtained by surgery with concern for possible fecal impaction and some inflammation of the colon and possible fistula which has been ruled out by general surgery. 4- patient sputum has been finalized with stenotrophomonas sensitive to Fortaz and sputum with Lynda albicans concern for component of oropharyngeal candidiasis, 5-Patient did have a stage II pressure ulcer to the sacral area with no cellulitis local wound care with a dry Aquacel silver dressing. 6patient to continue with the cefepime and Eraxis Will waiting for bronchoscopy cultures to be finalized Time with Patient: Less than 30
--- NOTE | 2022-02-22 17:19 | P.PN ---
Subjective Progress Note Date: 02/22/22 Principal diagnosis: Right foot infected pressure ulcer and bacteremia Patient is a 61-year-old male presented to the hospital for evaluation of fall patient also noticed to have a wound on the right lateral foot with some necrotic edges which has been debridement by vascular surgery on 01/31/2022.Patient has been transthoracic because of significant mental status changes, The patient ended up getting intubated, the patient also have worsening of the kidney function requiring dialysis catheter placement and has been started on dialysis as of 02/09/2022, the patient did have a PEG tube placement on 02/12/2022 , The patient is s/p tracheostomy completed on 02/17/2022, the patient is status post bronchoscopy completed on 02/20/2022 On today's evaluation that is 02/22/2022, The patient continues to be afebrile the patient remains to be intubated on the vent and FiO2 is stable at 60%, on a low-dose pressor support no significant purulent secretions through the ET or diarrhea reported by nursing staff Objective - Vital Signs Vital signs: Vital Signs Temp 98.2 F 02/22/22 16:00 Pulse 107 H 02/22/22 16:30 Resp 24 02/22/22 16:30 BP 119/52 02/22/22 15:51 Pulse Ox 98 02/22/22 16:30 FiO2 60 02/22/22 16:00 Intake & Output 02/21/22 02/22/22 02/22/22 18:59 06:59 18:59 Intake Total 748.461 736.467 774.616 Output Total 1530 25 25 Balance -781.539 711.467 749.616 Weight 154 kg Intake: IV 584 348.0 530 0.9% Sodium Chloride @ 195 165 150 10mls/hr Anidulafungin 100 mg In 100 100 Sodium Chloride 0.9% 100 ml @ 84 mls/hr IVPB DAILY [facility] Rx#:[id number] Cefepime 1 gm In Sodium 50 50.0 50 Chloride 0.9% 50 ml @ 12. 5 mls/hr IVPB Q12HR [facility] Rx#:[id number] Pressure bags 39 33 30 metroNIDAZOLE-NS PMX 500 200 100 200 mg In Saline 1 100ml.bag @ 100 mls/hr IVPB Q8HR [facility] Rx#:[id number] Intake, IV Titration 34.461 23.467 9.616 Amount Norepinephrine 32 mg In 34.461 23.467 9.616 Sodium Chloride 0.9% 218 ml @ 0.05 MCG/KG/MIN 3. 246 mls/hr IV .Q24H [facility] Rx#:[id number] Tube Feeding 100 275 175 Blood Product 0 Rc As-1 Unit 0 [id number] Other 30 90 60 Output: Urine 30 25 25 Hemodialysis 1500 Other: Voiding Method Indwelling Catheter Indwelling Catheter Indwelling Catheter # Bowel Movements 1 ABP, PAP, CO, CI - Last Documented Arterial Blood Pressure 105/48 - Exam GENERAL DESCRIPTION: Middle-aged male intubated Through the trach LUNGS: Unlabored breathing. Decreased breath sound at the base HEART: S1, S2, regular rate and rhythm. ABDOMEN: Soft, no tenderness , guarding or rigidity, no organomegaly EXTREMITIES: Right foot wound is currently dressed no drainage on the dressing - Labs CBC & Chem 7: 02/22/22 04:40 02/22/22 04:40 Labs: Abnormal Lab Results - Last 24 Hours (Table) 02/21/22 02/21/22 02/22/22 Range/Units 17:55 20:09 04:40 RBC 2.38 L (4.30-5.90) m/uL Hgb 6.9 L* (13.0-17.5) gm/dL Hct 23.1 L (39.0-53.0) % MCHC 29.7 L (31.0-37.0) g/dL RDW 20.7 H (11.5-15.5) % Lymphocytes # 0.8 L (1.0-4.8) k/uL ABG pO2 (83-108) mmHg ABG HCO3 (21-25) mmol/L ABG Total CO2 (19-24) mmol/L BUN (9-20) mg/dL Creatinine (0.66-1.25) mg/dL Glucose (74-99) mg/dL POC Glucose (mg/dL) 117 H 116 H (70-110) mg/dL Calcium (8.4-10.2) mg/dL Crossmatch 02/22/22 02/22/22 02/22/22 Range/Units 04:40 05:48 06:14 RBC (4.30-5.90) m/uL Hgb (13.0-17.5) gm/dL Hct (39.0-53.0) % MCHC (31.0-37.0) g/dL RDW (11.5-15.5) % Lymphocytes # (1.0-4.8) k/uL ABG pO2 75 L (83-108) mmHg ABG HCO3 26 H (21-25) mmol/L ABG Total CO2 28 H (19-24) mmol/L BUN 39 H (9-20) mg/dL Creatinine 3.11 H (0.66-1.25) mg/dL Glucose 100 H (74-99) mg/dL POC Glucose (mg/dL) 122 H (70-110) mg/dL Calcium 7.8 L (8.4-10.2) mg/dL Crossmatch 02/22/22 02/22/22 Range/Units 11:31 12:51 RBC (4.30-5.90) m/uL Hgb (13.0-17.5) gm/dL Hct (39.0-53.0) % MCHC (31.0-37.0) g/dL RDW (11.5-15.5) % Lymphocytes # (1.0-4.8) k/uL ABG pO2 (83-108) mmHg ABG HCO3 (21-25) mmol/L ABG Total CO2 (19-24) mmol/L BUN (9-20) mg/dL Creatinine (0.66-1.25) mg/dL Glucose (74-99) mg/dL POC Glucose (mg/dL) 116 H (70-110) mg/dL Calcium (8.4-10.2) mg/dL Crossmatch See Detail Microbiology - Last 24 Hours (Table) 02/20/22 15:40 Gram Stain - Preliminary Bronchoalviolar Lavage - Right Bronchial Washings Culture - Preliminary Gram Neg Bacilli 02/20/22 15:40 Acid Fast Bacilli Smear - Final Bronchoalviolar Lavage - Right Acid Fast Bacilli Culture - Preliminary Assessment and Plan (1) Cellulitis Current Visit: Yes Status: Acute Code(s): L03.90 - CELLULITIS, UNSPECIFIED SNOMED Code(s): 348068450 Plan: 1patient with right foot unstageable pressure ulcer with surrounding necrotic area and cellulitis On admission,x-rays do not show any bony changes likely from gram-positive skin caleb and less likely gram-negative pathogen, patient is status post vascular surgery evaluation and debridement and deep cultureWhich has been finalized with strep and MSSA. 2-patient with MSSA bacteremia source is likely right foot infected pressure ulcer, Repeat blood culture has been negative 3Patient did have significant abnormality seen on the CT obtained by surgery with concern for possible fecal impaction and some inflammation of the colon and possible fistula which has been ruled out by general surgery. 4- patient sputum from 02/05/2022 has been finalized with stenotrophomonas sensitive to Fortaz and sputum with Lynda albicans concern for component of oropharyngeal candidiasis, 5-Patient did have a stage II pressure ulcer to the sacral area with no cellulitis local wound care with a dry Aquacel silver dressing. 6patient clinical condition remains to be guarded, patient is currently being treated with the cefepime and Eraxis Will waiting for bronchoscopy cultures to be finalized which are currently growing gram-negative Time with Patient: Less than 30
[2022-02-22 18:34] LABS: Glucose,Whole Blood 97 mg/dL (70-110)
[2022-02-22] MEDS: INSULIN DETEMIR (LEVEMIR) 100 UNIT/ML SYR SQ SCH (21:10)
[2022-02-22 23:27] LABS: Glucose,Whole Blood 87 mg/dL (70-110)
[2022-02-23 05:24] LABS: Anisocytosis Moderate; HCT 26.7 % (39.0-53.0); Hypochromasia Marked; MCHC 31.4 g/dL (31.0-37.0); MCV 98.7 fL (80.0-100.0); Macrocytosis Moderate; Mean Platelet Volume 10.4; Platelet Count 172 k/uL (150-450); RDW 20.8 % (11.5-15.5)
[2022-02-23 05:27] LABS: Calcium 7.7 mg/dL (8.4-10.2); Potassium 4.3 mmol/L (3.5-5.1)
[2022-02-23 05:31] LABS: HGB 8.4 gm/dL (13.0-17.5)
[2022-02-23 05:37] LABS: Glucose,Whole Blood 57 mg/dL (70-110)
[2022-02-23] MEDS: INSULIN ASPART (NovoLOG) 100 UNIT/ML VIAL SQ SCH ×4 (05:38→23:29)
[2022-02-23] MEDS: DEXTROSE 50% SYRINGE 50 ML IVP PRN (05:39)
[2022-02-23 06:00] LABS: ABG Base Excess 0.1 mmol/L; ABG HCO3 25 mmol/L (21-25); ABG PCO2 42 mmHg (35-45); ABG PH 7.39 (7.35-7.45); ABG PO2 108 mmHg (83-108); ABG TCO2 26 mmol/L (19-24); Allen Test Performed? Yes
[2022-02-23 06:03] LABS: Glucose,Whole Blood 82 mg/dL (70-110)
[2022-02-23] MEDS: CALCIUM ACETATE 667 MG TAB PO SCH ×3 (06:45→16:46)
[2022-02-23] MEDS: MIDODRINE 5 MG TAB PO SCH ×3 (06:45→16:46)
[2022-02-23] MEDS: BUDESONIDE 1 MG/2 ML NEBU INHALATION SCH ×2 (07:24→19:19)
[2022-02-23] MEDS: IPRATROPIUM-ALBUTEROL 3 ML NEB INHALATION SCH ×4 (07:24→19:19)
[2022-02-23] MEDS: metroNIDAZOLE-NS PMX 500 MG in SALINE 1 100ML.BAG IVPB SCH ×3 (08:02→23:19)
[2022-02-23] MEDS: AMIODARONE 200 MG TAB PO SCH ×2 (08:03→20:03)
[2022-02-23] MEDS: LACTULOSE 20 GM/30 ML CUP PO SCH (08:03)
[2022-02-23] MEDS: CHLORHEXIDINE GLUCONATE 15 ML CUP MUCOUS MEM SCH ×2 (08:03→20:03)
[2022-02-23] MEDS: METOPROLOL TARTRATE 25 MG TAB PO SCH ×2 (08:03→20:03)
[2022-02-23] MEDS: levETIRAcetam 250 MG TAB PO SCH (08:03)
[2022-02-23] MEDS: PANTOPRAZOLE 40 MG/10 ML VIAL IVP SCH ×2 (08:04→20:03)
[2022-02-23] MEDS: PREGABALIN 100 MG CAP PO SCH ×2 (08:04→20:03)
[2022-02-23] MEDS: ANIDULAFUNGIN 100 MG in SODIUM CHLORIDE 0.9% 100 ML IVPB SCH (08:57)
--- NOTE | 2022-02-23 08:58 | P.PN ---
Subjective Patient is seen in follow-up for acute kidney injury. Started on hemodialysis 02/09/2022. Intubated. On low-dose Levophed. Receiving tube feeds. Scheduled for dialysis today. Vital signs are stable. On Levophed. General: Resting in bed. HEENT: Tracheostomy noted. LUNGS: Breath sounds decreased. HEART: Rate and Rhythm are regular. ABDOMEN: Soft, no distention. EXTREMITITES: 1+ edema. Objective - Vital Signs Vital signs: Vital Signs Temp 98.2 F 02/23/22 00:00 Pulse 99 02/23/22 07:40 Resp 24 02/23/22 07:00 BP 115/77 02/23/22 02:30 Pulse Ox 100 02/23/22 07:00 FiO2 60 02/23/22 07:16 Intake & Output 02/22/22 02/23/22 02/23/22 18:59 06:59 18:59 Intake Total 1288.616 723.947 44.147 Output Total 30 40 2 Balance 1258.616 683.947 42.147 Weight 155.5 kg Intake: IV 584 348 18 0.9% Sodium Chloride @ 195 165 15 10mls/hr Anidulafungin 100 mg In 100 Sodium Chloride 0.9% 100 ml @ 84 mls/hr IVPB DAILY [facility] Rx#:[id number] Cefepime 1 gm In Sodium 50 50 Chloride 0.9% 50 ml @ 12. 5 mls/hr IVPB Q12HR [facility] Rx#:[id number] Pressure bags 39 33 3 metroNIDAZOLE-NS PMX 500 200 100 mg In Saline 1 100ml.bag @ 100 mls/hr IVPB Q8HR [facility] Rx#:[id number] Intake, IV Titration 9.616 10.947 1.147 Amount Norepinephrine 32 mg In 9.616 10.947 1.147 Sodium Chloride 0.9% 218 ml @ 0.05 MCG/KG/MIN 3. 246 mls/hr IV .Q24H [facility] Rx#:[id number] Tube Feeding 325 275 25 Blood Product 310 Rc As-1 Unit 310 [id number] Other 60 90 Output: Urine 30 40 2 Other: Voiding Method Indwelling Catheter Indwelling Catheter ABP, PAP, CO, CI - Last Documented Arterial Blood Pressure 125/51 - Labs CBC & Chem 7: 02/23/22 04:00 02/23/22 04:00 Labs: Abnormal Lab Results - Last 24 Hours (Table) 02/22/22 02/22/22 02/23/22 Range/Units 11:31 12:51 04:00 RBC (4.30-5.90) m/uL Hgb (13.0-17.5) gm/dL Hct (39.0-53.0) % RDW (11.5-15.5) % ABG Total CO2 (19-24) mmol/L ABG O2 Saturation (94-97) % BUN (9-20) mg/dL Creatinine (0.66-1.25) mg/dL Glucose (74-99) mg/dL POC Glucose (mg/dL) 116 H (70-110) mg/dL Calcium (8.4-10.2) mg/dL C-Reactive Protein 5.6 H (<1.0) mg/dL Crossmatch See Detail 02/23/22 02/23/22 02/23/22 Range/Units 04:00 04:00 05:36 RBC 2.70 L (4.30-5.90) m/uL Hgb 8.4 L D (13.0-17.5) gm/dL Hct 26.7 L (39.0-53.0) % RDW 20.8 H (11.5-15.5) % ABG Total CO2 (19-24) mmol/L ABG O2 Saturation (94-97) % BUN 46 H (9-20) mg/dL Creatinine 3.38 H (0.66-1.25) mg/dL Glucose 62 L (74-99) mg/dL POC Glucose (mg/dL) 57 L (70-110) mg/dL Calcium 7.7 L (8.4-10.2) mg/dL C-Reactive Protein (<1.0) mg/dL Crossmatch 02/23/22 Range/Units 05:57 RBC (4.30-5.90) m/uL Hgb (13.0-17.5) gm/dL Hct (39.0-53.0) % RDW (11.5-15.5) % ABG Total CO2 26 H (19-24) mmol/L ABG O2 Saturation 99.0 H (94-97) % BUN (9-20) mg/dL Creatinine (0.66-1.25) mg/dL Glucose (74-99) mg/dL POC Glucose (mg/dL) (70-110) mg/dL Calcium (8.4-10.2) mg/dL C-Reactive Protein (<1.0) mg/dL Crossmatch Microbiology - Last 24 Hours (Table) 02/20/22 15:40 Gram Stain - Preliminary Bronchoalviolar Lavage - Right Bronchial Washings Culture - Preliminary Gram Neg Bacilli Assessment and Plan Plan: Assessment: 1. Acute kidney injury secondary to ATN secondary to septic shock. Started on hemodialysis 02/09/2022. Oliguric. Creatinine in April 2019 was 0.8. Creatinine was as low as 1.62 this admission. No hydronephrosis noted on CAT scan. 2. MSSA bacteremia with likely source being right foot ulcer. Also component of pneumonia. ID following. On antibiotics. Also on antifungal. 3. A. fib. Cardiology following. On amiodarone and beta donovan. 4. Metabolic acidosis secondary to acute kidney injury. 5. Diabetes mellitus. 6. Hyperphosphatemia secondary to acute kidney injury. on PhosLo. 7. Volume overload. Improved with ultrafiltration. Status post bronchoscopy 0 02/20/2022 with removal of mucous plugs and bronchioloalveolar lavage. 8. Anemia. Iron replete. On Aranesp. Hemoglobin 8.4 today. No active bleeding. Plan: Hemodialysis today. Stopped Demadex as patient has no urine output. Maintain tube feeds. Wean FiO2 and vasopressors. Increase dose of midodrine. Hold for systolic blood pressure greater than 115. Continue to monitor for renal recovery. Serologies negative except C3 slightly low.
--- NOTE | 2022-02-23 09:07 | US ---
EXAMINATION TYPE: US chest DATE OF EXAM: 02/23/2022 COMPARISON: NONE CLINICAL HISTORY: Markings for thoracentesis by pulmonary staff. TECHNIQUE: Targeted ultrasound of the posterior lower right hemithorax Difficult and limited study due to morbidly obese patient on a vent EXAM MEASUREMENTS: Right Pleural Effusion pocket size: 7.6 cm Right skin surface to fluid distance: 4.5 cm Right side marked for possible thoracentesis outside the dept. Pulmonologists are able to review the images in the patient?s EMR. IMPRESSIONS: Right pleural effusion
[2022-02-23] MEDS: COLLAGENASE 250 UNIT/GM OINTMENT 30 GM TUBE TOPICAL SCH (09:11)
[2022-02-23] MEDS: APIXABAN 2.5 MG TABLET PO SCH ×2 (09:11→20:03)
[2022-02-23] MEDS: CEFEPIME 1 GM in SODIUM CHLORIDE 0.9% 50 ML IVPB SCH ×2 (09:20→20:03)
--- NOTE | 2022-02-23 10:26 | P.PN ---
Subjective Progress Note Date: 02/23/22 CHIEF COMPLAINT: Upper GI bleeding HISTORY OF PRESENT ILLNESS: Patient remains intubated and on mechanical ventilation in the ICU. He is off of sedation. He is not following commands per nurse. He is scheduled for EEG and computed tomography scan of the brain today. He is receiving hemodialysis this morning. He did have a smear of a BM yesterday and is receiving lactulose this morning. Tube feeds are currently at 25 mL per hour. Afebrile. WBC is 8.0 Hgb 6.9 up to 8.4 platelets 172 sodium 141 potassium 4.3 creatinine 3.38 chest ultrasound showing a right pleural effusion PHYSICAL EXAM: VITAL SIGNS: Reviewed. GENERAL : Intubated HEENT: Tracheostomy site clean dry and intact ABDOMEN: Soft. Nondistended. Nontender PEG tube site clean dry and intact ASSESSMENT: 1. Ileus 2. Upper GI bleed resolved 3. Fecal impaction 4. Altered mental status 5. Leukocytosis 6. Respiratory failure requiring mechanical ventilation and unable to be weaned from vent status post tracheostomy 7. Severe protein calorie nutrition status post PEG tube placement PLAN: -Continue ICU management -Continue supportive care -Continue lactulose -Continue tube feeds Physician Clothing And Textiles Teacher note has been reviewed by physician. Signing provider agrees with the documented findings, assessment, and plan of care. I have personally seen and examined the patient, reviewed the HEATING AND COOLING TECHNICIAN /PAs history, exam and MDM and agree with the assessment and plan as written. Based on total visit time, I have performed more than 50% of the visit. As above: The patient doing about the same. Tolerating tube feeds at 25 mL per hour. Small bowel movement yesterday. Prior to that was having good bowel function. Continue advancing tube feeds to goal. We'll follow as needed at this point. Please call if any general surgery issues develop. Objective - Vital Signs Vital signs: Vital Signs Temp 98.2 F 02/23/22 00:00 Pulse 100 02/23/22 09:00 Resp 24 02/23/22 09:00 BP 115/77 02/23/22 02:30 Pulse Ox 99 02/23/22 09:00 FiO2 50 02/23/22 09:00 Intake & Output 02/22/22 02/23/22 02/23/22 18:59 06:59 18:59 Intake Total 1288.616 723.947 334.147 Output Total 30 40 2 Balance 1258.616 683.947 332.147 Weight 155.5 kg Intake: IV 584 348 228 0.9% Sodium Chloride @ 195 165 35 10mls/hr Anidulafungin 100 mg In 100 84 Sodium Chloride 0.9% 100 ml @ 84 mls/hr IVPB DAILY [facility] Rx#:[id number] Cefepime 1 gm In Sodium 50 50 Chloride 0.9% 50 ml @ 12. 5 mls/hr IVPB Q12HR [facility] Rx#:[id number] Pressure bags 39 33 9 metroNIDAZOLE-NS PMX 500 200 100 100 mg In Saline 1 100ml.bag @ 100 mls/hr IVPB Q8HR [facility] Rx#:[id number] Intake, IV Titration 9.616 10.947 1.147 Amount Norepinephrine 32 mg In 9.616 10.947 1.147 Sodium Chloride 0.9% 218 ml @ 0.05 MCG/KG/MIN 3. 246 mls/hr IV .Q24H [facility] Rx#:[id number] Tube Feeding 325 275 75 Blood Product 310 Rc As-1 Unit 310 [id number] Other 60 90 30 Output: Urine 30 40 2 Other: Voiding Method Indwelling Catheter Indwelling Catheter ABP, PAP, CO, CI - Last Documented Arterial Blood Pressure 112/52 - Labs CBC & Chem 7: 02/23/22 04:00 02/23/22 04:00 Labs: Abnormal Lab Results - Last 24 Hours (Table) 02/22/22 02/22/22 02/23/22 Range/Units 11:31 12:51 04:00 RBC (4.30-5.90) m/uL Hgb (13.0-17.5) gm/dL Hct (39.0-53.0) % RDW (11.5-15.5) % ABG Total CO2 (19-24) mmol/L ABG O2 Saturation (94-97) % BUN (9-20) mg/dL Creatinine (0.66-1.25) mg/dL Glucose (74-99) mg/dL POC Glucose (mg/dL) 116 H (70-110) mg/dL Calcium (8.4-10.2) mg/dL C-Reactive Protein (<1.0) mg/dL Procalcitonin 1.38 H (0.02-0.09) ng/mL Crossmatch See Detail 02/23/22 02/23/22 02/23/22 Range/Units 04:00 04:00 04:00 RBC 2.70 L (4.30-5.90) m/uL Hgb 8.4 L D (13.0-17.5) gm/dL Hct 26.7 L (39.0-53.0) % RDW 20.8 H (11.5-15.5) % ABG Total CO2 (19-24) mmol/L ABG O2 Saturation (94-97) % BUN 46 H (9-20) mg/dL Creatinine 3.38 H (0.66-1.25) mg/dL Glucose 62 L (74-99) mg/dL POC Glucose (mg/dL) (70-110) mg/dL Calcium 7.7 L (8.4-10.2) mg/dL C-Reactive Protein 5.6 H (<1.0) mg/dL Procalcitonin (0.02-0.09) ng/mL Crossmatch 02/23/22 02/23/22 Range/Units 05:36 05:57 RBC (4.30-5.90) m/uL Hgb (13.0-17.5) gm/dL Hct (39.0-53.0) % RDW (11.5-15.5) % ABG Total CO2 26 H (19-24) mmol/L ABG O2 Saturation 99.0 H (94-97) % BUN (9-20) mg/dL Creatinine (0.66-1.25) mg/dL Glucose (74-99) mg/dL POC Glucose (mg/dL) 57 L (70-110) mg/dL Calcium (8.4-10.2) mg/dL C-Reactive Protein (<1.0) mg/dL Procalcitonin (0.02-0.09) ng/mL Crossmatch Microbiology - Last 24 Hours (Table) 02/20/22 15:40 Gram Stain - Preliminary Bronchoalviolar Lavage - Right Bronchial Washings Culture - Preliminary Gram Neg Bacilli
[2022-02-23] MEDS ORDERED: HEPARIN SODIUM 1,000 UN/ML (10ML VL) ONE (10:40)
--- NOTE | 2022-02-23 10:52 | P.PN ---
Subjective Progress Note Date: 02/23/22 Principal diagnosis: Multiple right-sided rib fractures and a right sided pulmonary contusion with compression fractures of lumbar spine This is a extremely debilitated 61-year-old male patient who is known to monitor milligrams and comorbidities and I was asked to evaluate this patient because of a fall and limited hemoptysis. The patient is known to have a combination of i ssues including diabetes mellitus and diabetic peripheral neuropathy and the patient has had previous episodes of falls and he has issues with chronic atrial flutter maintained on long-term anticoagulation with warfarin. He is morbidly obese. He has hypertension and hyperlipidemia as comorbid conditions along with chronic kidney disease. He is morbidly obese. He has history of COPD and is a chronic smoker. He comes in to the hospital after he had a fall at home. He was the bathroom and he slept and he landed on his left chest. Here in the hospital, the patient was found to be Coumadin toxic and his INR was above 10. He did have some limited hemoptysis and coffee-ground emesis without any melanotic stools. No abdominal pain. He was noted to have a large ulcer over the right ankle/malleolus area which is a chronic wound. Immediately the patient was given vitamin K. This computed tomography scan of the chest shows some right lateral eighth through 10th rib fractures with trace amount of right- sided pleural effusion and right basilar atelectasis related to underlying pulmonary contusion. No evidence of any pneumothorax. Some limited patchy airspace disease in the left upper lobe probably inflammatory in the same time the patient had dilated pulmonary arteries indicating possibility of pulmonary hypertension and a fluid and gas-filled distended stomach. I noted the patient has not had a CAT scan of the brain and a CAT scan was done that showed no acute intracranial process. There was a remote left occipital lobe injury along with some nonspecific white matter changes secondary to chronic microangiopathy. This computed tomography scan of the lumbar spine showed acute anterior wedge compression deformity of L1 vertebral body with a 30% loss in height along with multilevel degenerative disc changes and a 7 mm In the right pelvis. Patient was already seen by general surgery and orthopedic surgery. Lumbar spine x-ray that was done on 2021 showed no acute fracture. The patient was also seen by vascular surgery for a right lateral foot wound and this is a stage II wound 8.5 x 4 cm in size. Debridement was done by vascular surgery. 02/22/2022, neurologically unchanged and the patient remains off sedation and is not following any commands. He is essentially the same as yesterday. He does movements and these are essentially nonpurposeful movements. I have asked neurology to reevaluate the patient for any further input. Meanwhile, he remains on a mechanical ventilator. The right lung is essentially opacified with a pleural effusion and atelectasis. I performed a bronchoscopy and remove mucous plug from the right lung. This caused some limited improvement. For the most part, the right lung is still opacified. He remains on assist control mode of mechanical ventilation at the rate of 24, tidal volume of 500, FiO2 of 60% and a PEEP of 8. Blood gases from today showed a pH of 7.37 with a pCO2 of 45 and pO2 of 75. The patient's condition essentially unchanged. He is hemodynamically stable. His still on minimal doses of pressors which is being weaned off and currently is on norepinephrine at 0.02 mcg/kg per minute.. He is afebrile and the repeat cultures from the bronchioloalveolar lavage of the right lung showed no microbial growth. Hemoglobin today is at 6.9. No signs of any active bleeding. Last hemodialysis session was yesterday and no plans for dialysis today. He is having bowel movement activity. She'll feeds were restarted and the patient is on vital high protein at the rate of 25. His rest of the blood work shows a white cell count of 8 with a hemoglobin of 6.9 and platelet count of 161. Sodium is 141 BUN is a 39 and a creatinine of 3.11. 02/23/2022, patient remains in the ICU, intubated, mechanically ventilated, not following any instructions or any commands. Patient opens eyes, but no responses whatsoever. He grimaces to painful stimuli only. He is on assist control rate of 24 to volume 500 FiO2 60% PEEP of 12. ABG showed a pO2 of 108 pCO2 42 pH of 7.39, hence his FiO2 was cut down from 60% to 50%. Patient is still requiring norepinephrine at 0.01 mcg/kg/m however his blood pressure was noted to be stable enough this morning and I recommended stopping norepinephrine. Remains on IV fluids at KVO, and he is on enteral feeding receiving vital Hb at 25 mL per hour which is his goal. Patient is still getting hemodialysis. Chest x-ray continues to show opacification of the right lung, ultrasound showed small pleural effusion does not correlate with the finding on the chest x-ray, and I am not planning thoracentesis since it is quite risky considering his body size. Not to mention the fluid is not large enough to be drained. Labs were reviewed that he set his 8 hemoglobin is 8.4 electrolytes are normal BUN is 46 creatinine 3.38. Pro-calcitonin remains a bit high at 1.38 blood sugar is 82 this morning. C-reactive protein is 5.6 Objective - Vital Signs Vital signs: Vital Signs Temp 98.2 F 02/23/22 00:00 Pulse 100 02/23/22 09:00 Resp 24 02/23/22 09:00 BP 115/77 02/23/22 02:30 Pulse Ox 99 02/23/22 09:00 FiO2 50 02/23/22 09:00 Intake & Output 02/22/22 02/23/22 02/23/22 18:59 06:59 18:59 Intake Total 1288.616 723.947 334.147 Output Total 30 40 2 Balance 1258.616 683.947 332.147 Weight 155.5 kg Intake: IV 584 348 228 0.9% Sodium Chloride @ 195 165 35 10mls/hr Anidulafungin 100 mg In 100 84 Sodium Chloride 0.9% 100 ml @ 84 mls/hr IVPB DAILY [facility] Rx#:[id number] Cefepime 1 gm In Sodium 50 50 Chloride 0.9% 50 ml @ 12. 5 mls/hr IVPB Q12HR [facility] Rx#:[id number] Pressure bags 39 33 9 metroNIDAZOLE-NS PMX 500 200 100 100 mg In Saline 1 100ml.bag @ 100 mls/hr IVPB Q8HR [facility] Rx#:[id number] Intake, IV Titration 9.616 10.947 1.147 Amount Norepinephrine 32 mg In 9.616 10.947 1.147 Sodium Chloride 0.9% 218 ml @ 0.05 MCG/KG/MIN 3. 246 mls/hr IV .Q24H [facility] Rx#:[id number] Tube Feeding 325 275 75 Blood Product 310 Rc As-1 Unit 310 [id number] Other 60 90 30 Output: Urine 30 40 2 Other: Voiding Method Indwelling Catheter Indwelling Catheter ABP, PAP, CO, CI - Last Documented Arterial Blood Pressure 112/52 - Exam GENERAL: Revealed a 61-year-old white male, intubated, mechanically ventilated, opens eyes but does not follow any instructions Head atraumatic, normocephalic. Tracheostomy is intact EYES: Pupils equal. Conjunctiva normal. HEENT: External appearance of nose and ears normal, oral cavity grossly normal. Right subclavian central line is noted to be intact NECK: JVD not raised; masses not palpable. HEART: Normal S1 and S2, no S3 gallop, irregular rhythm. LUNGS: Symmetrical chest expansion crackles at the bases diminished breath sounds on the right side ABDOMEN: Soft, distended, no megaly no rebound no guarding PSYCH: Cannot be assessed, sedated with propofol. Patient was obtunded to begin with before intubation. Extremities: Bipedal edema noted. DERMATOLOGICAL: Large wound around the lateral malleolus right foot Gangrene Changes, wrapped with sterile dressing. Patient also has deep tissue injury to his coccyx/buttocks area MUSCULOSKELETAL:No Clubbing/cyanosis;muscles-grossly intact, NEUROLOGICAL: Patient is obtunded, opens eyes, does not follow any instructions, and grimaces to painful stimuli. At times noted to be restless and agitated - Labs CBC & Chem 7: 02/23/22 04:00 02/23/22 04:00 Labs: Abnormal Lab Results - Last 24 Hours (Table) 02/22/22 02/22/22 02/23/22 Range/Units 11:31 12:51 04:00 RBC (4.30-5.90) m/uL Hgb (13.0-17.5) gm/dL Hct (39.0-53.0) % RDW (11.5-15.5) % ABG Total CO2 (19-24) mmol/L ABG O2 Saturation (94-97) % BUN (9-20) mg/dL Creatinine (0.66-1.25) mg/dL Glucose (74-99) mg/dL POC Glucose (mg/dL) 116 H (70-110) mg/dL Calcium (8.4-10.2) mg/dL C-Reactive Protein (<1.0) mg/dL Procalcitonin 1.38 H (0.02-0.09) ng/mL Crossmatch See Detail 02/23/22 02/23/22 02/23/22 Range/Units 04:00 04:00 04:00 RBC 2.70 L (4.30-5.90) m/uL Hgb 8.4 L D (13.0-17.5) gm/dL Hct 26.7 L (39.0-53.0) % RDW 20.8 H (11.5-15.5) % ABG Total CO2 (19-24) mmol/L ABG O2 Saturation (94-97) % BUN 46 H (9-20) mg/dL Creatinine 3.38 H (0.66-1.25) mg/dL Glucose 62 L (74-99) mg/dL POC Glucose (mg/dL) (70-110) mg/dL Calcium 7.7 L (8.4-10.2) mg/dL C-Reactive Protein 5.6 H (<1.0) mg/dL Procalcitonin (0.02-0.09) ng/mL Crossmatch 02/23/22 02/23/22 Range/Units 05:36 05:57 RBC (4.30-5.90) m/uL Hgb (13.0-17.5) gm/dL Hct (39.0-53.0) % RDW (11.5-15.5) % ABG Total CO2 26 H (19-24) mmol/L ABG O2 Saturation 99.0 H (94-97) % BUN (9-20) mg/dL Creatinine (0.66-1.25) mg/dL Glucose (74-99) mg/dL POC Glucose (mg/dL) 57 L (70-110) mg/dL Calcium (8.4-10.2) mg/dL C-Reactive Protein (<1.0) mg/dL Procalcitonin (0.02-0.09) ng/mL Crossmatch Microbiology - Last 24 Hours (Table) 02/20/22 15:40 Gram Stain - Preliminary Bronchoalviolar Lavage - Right Bronchial Washings Culture - Preliminary Gram Neg Bacilli Assessment and Plan Assessment: Impression: Acute hypercapnic respiratory failure, intubated on underwent tracheostomy on 02/17 Status post tracheostomy on 02/17, patient was a failure to wean. Remains a failure to wean Acute metabolic encephalopathy Right sided rib fractures, traumatic, secondary to fall, Right sided pulmonary contusion. Anterior wedge compression fracture of L1 Hemoptysis secondary to contusion and exacerbated by Coumadin coagulopathy Underlying COPD and chronic smoking Coumadin toxicity with INR above 10 on admission, recovered History of frequent falls. Metabolic encephalopathy, acute, being addressed by neurology on the case. Chronic atrial fibrillation. Acute on Chronic kidney disease stage III. Stage II right ankle wound requiring debridement and positive for MSSA/staph aureus and strep agalactiae Positive bacteremia, however his blood cultures have been negative from 02/04 and 02/05. Diabetic peripheral neuropathy History of Nephrolithiasis Nonspecific colitis Perianal fistula Recommendation: Continue ventilatory support, and tracheostomy care. Patient is still unable to wean. Continue to hold sedation. Continue antibiotics/cefepime Continue IV fluid at KVO Continue hemodynamic monitoring, stop norepinephrine this morning. Nutritional support/enteral feeding, Continue GI and DVT prophylaxis Continue Eraxis Continue bronchodilators Continue Keppra Continue Flagyl Continue metoprolol Continue amiodarone. Continue Levemir insulin 14 units at bedtime and sliding scale coverage Critical care time is over 30 minutes We will continue to follow. Time with Patient: Greater than 30
--- NOTE | 2022-02-23 11:47 | P.PN ---
Subjective Progress Note Date: 02/23/22 I am seeing the patient as follow-up. He was last seen by Dr. Stoll on 02/22/2022 since mentation not improving. Please refer to Dr. Stlol notes for further details. It seems the patient has been off sedation since 02/18/2022 and still mentaiton is off. He continues to have facial intermittent twitching and abnormal movement of tongue. He is getting dialysis today. He is on Keppra 250mg bid. Objective - Vital Signs Vital signs: Vital Signs Temp 98.2 F 02/23/22 00:00 Pulse 109 H 02/23/22 11:00 Resp 24 02/23/22 11:00 BP 115/77 02/23/22 02:30 Pulse Ox 99 02/23/22 11:00 FiO2 50 02/23/22 10:42 Intake & Output 02/22/22 02/23/22 02/23/22 18:59 06:59 18:59 Intake Total 1288.616 723.947 424.647 Output Total 30 40 12 Balance 1258.616 683.947 412.647 Weight 155.5 kg 155.5 kg Intake: IV 584 348 253.5 0.9% Sodium Chloride @ 195 165 45 10mls/hr Anidulafungin 100 mg In 100 84 Sodium Chloride 0.9% 100 ml @ 84 mls/hr IVPB DAILY [facility] Rx#:[id number] Cefepime 1 gm In Sodium 50 50 12.5 Chloride 0.9% 50 ml @ 12. 5 mls/hr IVPB Q12HR [facility] Rx#:[id number] Pressure bags 39 33 12 metroNIDAZOLE-NS PMX 500 200 100 100 mg In Saline 1 100ml.bag @ 100 mls/hr IVPB Q8HR [facility] Rx#:[id number] Intake, IV Titration 9.616 10.947 1.147 Amount Norepinephrine 32 mg In 9.616 10.947 1.147 Sodium Chloride 0.9% 218 ml @ 0.05 MCG/KG/MIN 3. 246 mls/hr IV .Q24H [facility] Rx#:[id number] Tube Feeding 325 275 140 Blood Product 310 Rc As-1 Unit 310 [id number] Other 60 90 30 Output: Urine 30 40 12 Other: Voiding Method Indwelling Catheter Indwelling Catheter ABP, PAP, CO, CI - Last Documented Arterial Blood Pressure 162/71 - Exam GENERAL: The patient is a morbid obese gentleman lying in bed and does not appear in acute distress. LUNG: Trach on ventilator. NEUROLOGICAL: Limited because of his condition. Not on sedation. Is getting dialysis currently. Higher mental function: The patient is severely drowsy but would open his eye and would try to say what with his lips. Not following commands or verbalizing. Turns his head side to side. Cranial nerves: He look toward voice/tracking eye to left and turns his head to left to voice. Appears at time has right eye preference. Has intermittent right facial twitching. Would have abnormal tongue movement of stick his tongue and moving side to side. Rest is limited. Motor: The strength is unable to assess but would have rare episode of lifting the right upper extremity above gravity. Decrease tone throughout. . Sensation: Unable to assess light touch. - Labs CBC & Chem 7: 02/23/22 04:00 02/23/22 04:00 Labs: Abnormal Lab Results - Last 24 Hours (Table) 02/22/22 02/22/22 02/23/22 Range/Units 11:31 12:51 04:00 RBC (4.30-5.90) m/uL Hgb (13.0-17.5) gm/dL Hct (39.0-53.0) % RDW (11.5-15.5) % ABG Total CO2 (19-24) mmol/L ABG O2 Saturation (94-97) % BUN (9-20) mg/dL Creatinine (0.66-1.25) mg/dL Glucose (74-99) mg/dL POC Glucose (mg/dL) 116 H (70-110) mg/dL Calcium (8.4-10.2) mg/dL C-Reactive Protein (<1.0) mg/dL Procalcitonin 1.38 H (0.02-0.09) ng/mL Crossmatch See Detail 02/23/22 02/23/22 02/23/22 Range/Units 04:00 04:00 04:00 RBC 2.70 L (4.30-5.90) m/uL Hgb 8.4 L D (13.0-17.5) gm/dL Hct 26.7 L (39.0-53.0) % RDW 20.8 H (11.5-15.5) % ABG Total CO2 (19-24) mmol/L ABG O2 Saturation (94-97) % BUN 46 H (9-20) mg/dL Creatinine 3.38 H (0.66-1.25) mg/dL Glucose 62 L (74-99) mg/dL POC Glucose (mg/dL) (70-110) mg/dL Calcium 7.7 L (8.4-10.2) mg/dL C-Reactive Protein 5.6 H (<1.0) mg/dL Procalcitonin (0.02-0.09) ng/mL Crossmatch 02/23/22 02/23/22 Range/Units 05:36 05:57 RBC (4.30-5.90) m/uL Hgb (13.0-17.5) gm/dL Hct (39.0-53.0) % RDW (11.5-15.5) % ABG Total CO2 26 H (19-24) mmol/L ABG O2 Saturation 99.0 H (94-97) % BUN (9-20) mg/dL Creatinine (0.66-1.25) mg/dL Glucose (74-99) mg/dL POC Glucose (mg/dL) 57 L (70-110) mg/dL Calcium (8.4-10.2) mg/dL C-Reactive Protein (<1.0) mg/dL Procalcitonin (0.02-0.09) ng/mL Crossmatch Microbiology - Last 24 Hours (Table) 02/20/22 15:40 Gram Stain - Preliminary Bronchoalviolar Lavage - Right Bronchial Washings Culture - Preliminary Gram Neg Bacilli Assessment and Plan Assessment: * Right facial intermittent twitching: Rule out seizure. Also rule out jerks due to toxic-metabolic abnormalities. Had two routine EEG and was negative for seizure. * Severe Altered mental status due to multifactorial: Metabolic encephalopathy/uremic encephalopathy (getting dialysis) and septicemia from cellulitis of right foot ulcer. Also rule out seizure. Off sedation since 02/18/2022. * Abnormal tongue movement appears Tardive dyskinesia. * Cellulitis with right foot ulcer * Septicemia with staph aureus. * Status post fall with L1 compression fracture * Moderate renal insufficiency on dialysis * Ventilator-dependent respiratory failure, now has tracheostomy. * Coagulopathy * Right sided rib fractures secondary to fall. 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 * Peripheral edema. * Long-standing history of frequent falls, uses walker * COPD * Chronic tobacco use * Diabetes with hemoglobin A1c 8.1 * Probable diabetic peripheral neuropathy. * Peripheral arterial disease Plan: * Increase Keppra from 250mg to 500mg once every 12 hours IV with an additional 500mg post dialysis. * Dr. Stoll ordered repeat CT head and EEG for today. Cannot obtain MRI Brain since has ventilator. * I.D. is on obard. * Pleas avoid any antidopamergic drugs. * Will defer the rest of medical management to the primary and ICU team. * The patient condition is critical and prognosis appears poor. The plan is discussed with the patient's nurse. Chava Jackson M.D. Neuro-Hospitalist. Time with Patient: Less than 30
[2022-02-23 12:02] LABS: Glucose,Whole Blood 80 mg/dL (70-110)
[2022-02-23] MEDS: MORPHINE ORAL SOLN 10 MG/5 ML CUP PO SCH ×2 (13:08→23:19)
[2022-02-23] MEDS: levETIRAcetam IV 500 MG in SODIUM CHLORIDE 0.9% 100 ML IVPB SCH ×2 (13:20→20:03)
--- NOTE | 2022-02-23 16:30 | CT ---
EXAMINATION TYPE: CT brain wo con DATE OF EXAM: 02/23/2022 HISTORY: Altered mental status and weakness. CT DLP: 1202 mGycm. Automated Exposure Control for Dose Reduction was Utilized. TECHNIQUE: CT scan of the head is performed without contrast. COMPARISON: CT brain 13 days ago and older studies FINDINGS: There is no acute intracranial hemorrhage or midline shift identified. There is mild to m oderate diffuse ventricular and sulcal prominence consistent with diffuse age-related cerebral atroph y. There is mild to moderate low-attenuation in the periventricular white matter consistent with chr onic small vessel ischemic change. Vague area of low intensity left occipital region is redemonstrat ed axial image 26 for reference could reflect subacute or old infarcts, correlate clinically. The carrie bes are intact and the visualized sinuses are clear. Age-indeterminate but likely chronic nasal brid ge fracture redemonstrated. There is new Near-complete opacification of the bilateral mastoid air juan c ls. IMPRESSION: No acute intracranial hemorrhage or midline shift. There is mild to moderate diffuse ag e-related cerebral atrophy and chronic small vessel ischemic change redemonstrated. Subacute or old l eft occipital lobe infarct redemonstrated. New bilateral mastoid fluid collections could reflect acut e mastoiditis in appropriate clinical setting, correlate clinically.
--- NOTE | 2022-02-23 17:29 | P.PN ---
Progress Note - Text Progress Note Date: 02/23/22 Hospital course This is a 61-year-old patient who follows with Dr. Sridhar Chan. Chronic stable medical conditions include diabetes, hypertension, hyperlipidemia, chronic low back problems, cigarette smoker. At the baseline uses a walker. Patient slipped in the bathroom falling on his buttock. Was not able to get up. By the EMS report he had fallen 24 hours prior to the picking him up. Patient been complaining of pain in the right rib cage in the lower back. X-ray was negative for fracture. Patient continued to have significant pain especially with deep breathing. Patient also had a congestive cough and wheezing. Some bloody sputum. Denies any fever and chills. Patient also complaining of urinary retention and requesting a Shepard catheter. at the bedside. No fever no chills. Orthopedics consulted for the same. Patient normally has a bowel movement once a week. Patient also has a wound on the right foot lateral part of the ankles for about a week. Ischemic changes. From rubbing against a bedpost. Patient's INR in the ER was greater than 10. Was given vitamin K. 10 mg Patient bit with Coumadin toxicity, given vitamin K, acute COPD exacerbation, uncontrolled atrial flutter put on Lopressor, right chest wall pain. Computed tomography scan lumbar spine and chest was ordered. Large wound on the right lateral malleolus-ID and vascular consulted.. IV cefepime. February 01: Patient yesterday to see refused his computed tomography scan of the chest and lumbar spine. Done today. Right-sided rib fractures, pulmonary contusion confirm. L1 vertebral body 30% wedge compression fracture. Patient's girlfriend the bedside. It was discussed in detail with her. Patient wanting again and again to pull out his NG tube. Requests the to stay with the patient. Patient is also had the dark aspirate from the stomach for which she has NG tube. Surgery was consulted for the same. Also this morning right foot wound was debrided by Dr. Ibarra from vascular. Wound base was relatively clean. No undermining or tunneling. February 02: Delirious. NG tube to suction. Has been in restraints because point NG TUBE several times. Mumbling to himself. Dressing over the right ankle. Not in distress. Ileus. Chest x-ray showing right lower lobe/ate lectasis. February 03: Hospital computer system was down. Patient remains delirious. Nasal cannula. Lethargic. Family the bedside. Antibiotics. A. fib uncontrolled. EEG evidence of metabolic encephalopathy. No clear-cut epileptiform activity. Started on Keppra by neurology. February 04: ICU: Girlfriend at the bedside. In atrial fibrillation uncontrolled. On IV Cardizem and IV amiodarone. NG tube to suction. Patient lethargic. Multiple breathing. 2 L. Oxygen. February 05: ICU. Atrial fibrillation better controlled this morning. Cardizem discontinued. Patient respiratory status worsened this morning and patient is intubated. FiO2 45 and a PEEP of 5. Atrial fibrillation, controlled. Drips include amiodarone, propofol, levo fed. Discussed with girlfriend the bedside. Understands prognosis guarded. February 06: ICU: Ventilated. FiO2 45 and a PEEP of 5. NG tube is clamped. On IV propofol. Sedated. Heart rate better controlled. Was started on Coumadin yesterday. Worsening renal function. Nephrology consulted. 02/07/2022 Patient is currently in the MICU and on mechanical ventilator. Tidal volume of 400, FiO2 40% and PEEP of 5. Patient is off pressor support today. Currently on propofol and is also on tube feeding. Chest x-ray showed stable exam with stable support lines and tubes. Correlate for congestive heart failure. Patient was given a dose of IV Lasix. Laboratory data showed WBC 18.4 hemoglobin 11.6 and platelets 458 Sodium 141 potassium 3.7 chloride 103 bicarb is 18 BUN 49 and creatinine 3.73 and calcium 7.3. INR is 2.2. Patient is being followed by nephrology cardiology and critical care team. 02/08/2022 Patient is currently on mechanical ventilator and sedated with propofol. Assist control with FiO2 40% and tidal volume of 400 and PEEP of 5. Patient is being continued on antibiotics above cefepime and Flagyl. Sputum gram stain gram-negative bacilli and Lynda. Chest x-ray today showed findings suggestive of slightly worsening CHF exacerbation as there is cardiomegaly with mild to moderate central venous congestion and small to moderate-sized bilateral pleural effusion. Laboratory test showed WBC increased to 23.6 hemoglobin 9.1 and platelets 162 INR 3.0 Sodium 139 potassium 4.3 chloride 113 bicarb is 40 BUN 54 and creatinine worsening to 4.36 February 09: I resumed the care of patient today ICU: Med: 40/5. Received vitamin K 5 mg IV to bring the INR down for dialysis catheter. Drips include bicarbonate, propofol, epinephrine. Patient is a stage II coccyx is ulcer. Plan is to change the NG tube to on G-tube today. For possible colitis/fistula on antibiotics. at the bedside. February 10: ICU. Ventilator 50/5. Hemodialysis catheter placed last night. Hemodialyzed yesterday and getting dialyzed today. Remains in atrial fibrillation heart rate uncontrolled. Getting up sedation holiday. Drips include bicarbonate and norepinephrine. Propofol currently held. 2 feeding at 46 mL an hour. Does open eyes. February 11: ICU. Ventilator. 50/5. Third day for hemodialysis. 1.5 L to be removed today. Back on propofol. Drips include bicarbonate, norepinephrine, propofol. On G-tube feeding. Patient back in sinus rhythm. Bag and tracheostomy to planning for next week. 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 IV antifungal started by ID. February 12: ICU: Ventilator: 40/5. Telemetry shows sinus rhythm. Drips include propofol and norepinephrine. On G-tube feeding. Discussed with the at the bedside. Understands prognosis guarded. IV antibiotics and antifungals. February 13: ICU: Ventilator: 40/5. PEG tube placed yesterday by Dr. Cornejo. Drips include bicarbonate, propofol, norepinephrine. Getting hemodialysis done today. February 14: ICU: Medicated. 2 feeding at 65 mL an hour. This included propofol and norepinephrine. Hemodialysis done today. Sinus rhythm. February 15: ICU: Ventilator: 40/5. 2 feeding at 65 mL an hour. Drips include propofol and norepinephrine. No hemodialysis today. at the bedside. Discussed. 02/16/2022 Patient seen and evaluated and follow-up continues to be in the ICU on mechanical ventilation with sedation with multiple medical consultations following. Patient is currently receiving hemodialysis and continues with a temporary dialysis catheter. Patient is still full code and overall prognosis remains extremely poor and guarded. Patient's FiO2 is 40% with a PEEP of 5. Patient also continues on antifungal along with cefepime and metronidazole with infectious disease following. Patient is sedated on propofol continues on Levophed as well. WBC is 12.9 with hemoglobin of 8.7, sodium is 134 with a potassium of 4.5 current creatinine is 4.69 with a BUN of 66. Patient is maintained on tube feedings and has received the PEG tubing is scheduled for tracheostomy tentatively today if OR available. Again overall prognosis remains extremely guarded. 02/17/2022 Patient continues to be in the ICU on mechanical vent and FiO2 remains 40% with a PEEP of 5. Patient continues on norepinephrine with multiple medical consultations following. Patient continues on propofol for sedation and also was maintained on hemodialysis almost daily. Patient continues on cefepime along with an antifungal and Flagyl with anxiety following sputum culture showing 16 oh troph ammonias maltophilia with Lynda most recent blood cultures have been negative. Patient is afebrile although WBC is elevated at 14.5 and hemoglobin is 8.9, BUN is 61 with a creatinine of 4.55, sodium is 135 and sodium bicarb tablets have been discontinued. Magnesium was 1.9. Plan is tentatively scheduled for tracheostomy with general surgery today post hemodialysis. Overall prognosis is extremely guarded. Chest x-ray shows continued bilateral pleural effusions with no significant change from previous day. Patient is maintained on tube feedings via PEG tube although on hold for surgery today 02/18/2022 Patient is seen and evaluated continues to be in the ICU with multiple medical consultations following. Patient is status post tracheostomy placement with Dr. Villegas yesterday evening and tolerating well with no leaks noted. Patient continues on FiO2 of 40% with a PEEP of 5. Patient undergoing sedation holiday and propofol was recently turned off. Patient is awake and opening eyes spontaneously although not following commands on exam. Patient is looking around the room and mouthing words with no comprehension. Patient with extensive wounds of the sacro-coccyx region that are currently unstageable and general surgery is following and may possibly require debridement of these areas. Patient is status post debridement of the right foot previously. Patient is maintained on antibiotics along with antifungal's and infectious disease is following. Patient is afebrile and WBC is 10.6, hemoglobin is 8.4, patient is also with a BUN of 50 and creatinine is 3.78, magnesium is 1.8. Patient is being closely monitored by nephrology with a temporary site of the right femoral receiving daily dialysis. Patient continues on low-dose Levophed and working on weaning as tolerated. PEG tube feedings are at goal and t olerating. Overall prognosis remains extremely guarded. 02/19/2022 Patient is seen in follow-up this morning and has been off propofol since yesterday although continues to not follow commands. Multiple medical consultations following. Patient is status post recent tracheostomy and also PEG tube placement and has been resumed on tube feedings and tolerating at goal. Patient is continuing on hemodialysis with a right groin temporary catheter. Chest x-ray this morning shows some possible progression of pleural effusions and airspace disease or atelectasis especially in the right lung. Nursing staff questioning about anticoagulation and his Coumadin was on hold for tracheostomy and patient is being started on eliquis. Patient continues on antibiotics as well in the form of cefepime and Flagyl and antifungal's with anxiety following. Patient also continues on low-dose Levophed. Patient continues on mechanical ventilation via tracheostomy with an FiO2 of 60. Patient scheduled to receive dialysis again today. General surgery is following and may be required for debridement of the decubitus ulcers once more stable. Pulmonary discussing possible thoracentesis in the near future. Patient is currently afebrile. Prognosis remains extremely guarded. February 20: Patient was being covered by [facility] last 4 days. ICU. Ventilator. FiO2 16 a PEEP of 8. Has a PEG and trach. Awake, drowsy. On norepinephrine. at the bedside. February 21: ICU: Ventilator. FiO2 60 PEEP of 8. Hemodialysis today. Drips include norepinephrine. Sinus tachycardia. Does open eyes. Sticks his tongue. Drowsy. Not really following commands February 22: ICU: Ventilator. FiO2 16 a PEEP of 8. Patient is in and out of atrial fibrillation. Does open eyes and sticks his tongue out intermittently. Nonpurposeful. Currently on levo fed drip small dose. Midodrine has been added. 2 feeding at 25 mL an hour. at the bedside. February 23: ICU: Ventilator. FiO2 50 PEEP of 12. Drips include norepinephrine. Decreased Accu-Chek. tube feeding increased. Active Medications Acetaminophen (Acetaminophen Tab 325 Mg Tab) 650 mg PO Q6HR PRN PRN Reason: Mild Pain or Fever > 100.5 Albuterol/Ipratropium (Ipratropium-Albuterol 3 Ml Neb) 3 ml INHALATION RT-QID [facility] Last Admin: 02/23/22 15:00 Dose: 3 ml Amiodarone HCl (Amiodarone 200 Mg Tab) 200 mg PO BID [facility] Last Admin: 02/23/22 08:03 Dose: 200 mg Apixaban (Apixaban 2.5 Mg Tablet) 2.5 mg PO BID [facility]; Protocol Last Admin: 02/23/22 09:11 Dose: 2.5 mg Artificial Tears (Artificial Tears-Hypromellose Drops 15 Ml Btl) 2 drops BOTH EYES TID PRN PRN Reason: Dry Eye(s) Budesonide (Budesonide 1 Mg/2 Ml Nebu) 1 mg INHALATION RT-BID [facility] Last Admin: 02/23/22 07:24 Dose: 1 mg Calcium Acetate (Calcium Acetate 667 Mg Tab) 667 mg PO TID-W/MEALS [facility] Last Admin: 02/23/22 16:46 Dose: 667 mg Calcium Carbonate/Glycine (Calcium Carbonate 500 Mg Chewable) 1,000 mg PO Q4HR PRN PRN Reason: Dyspepsia Last Admin: 01/31/22 14:29 Dose: 1,000 mg Chlorhexidine Gluconate (Chlorhexidine Gluconate 15 Ml Cup) 15 ml MUCOUS MEM BID [facility] Last Admin: 02/23/22 08:03 Dose: 15 ml Collagenase (Collagenase 250 Unit/Gm Ointment 30 Gm Tube) 1 applic TOPICAL DAILY [facility]; Protocol Last Admin: 02/23/22 09:11 Dose: 1 applic Darbepoetin Mann (Darbepoetin Mann 60 Mcg/0.3 Ml Syringe) 60 mcg SQ Q7D [facility] Last Admin: 02/18/22 18:34 Dose: 60 mcg Dextrose/Water (Dextrose 50% Syringe 50 Ml) 25 ml IVP PER PROTOCOL PRN; Protocol PRN Reason: Hypoglycemia Last Admin: 02/23/22 05:39 Dose: 25 ml Dextrose/Water (Dextrose 50% Syringe 50 Ml) 50 ml IVP PER PROTOCOL PRN; Protocol PRN Reason: Hypoglycemia Propofol 1,000 mg/ IV Solution 100 mls @ 4.08 mls/hr IV .Q24H [facility]; Protocol Last Admin: 02/22/22 15:52 Dose: Not Given Metronidazole 500 mg/ IV (Solution) 100 mls @ 100 mls/hr IVPB Q8HR [facility]; Protocol Last Admin: 02/23/22 16:46 Dose: 100 mls/hr Cefepime HCl 1 gm/ Sodium (Chloride) 50 mls @ 12.5 mls/hr IVPB Q12HR [facility] Last Admin: 02/23/22 09:20 Dose: 12.5 mls/hr Norepinephrine Bitartrate 32 (mg/ Sodium Chloride) 250 mls @ 3.246 mls/hr IV .Q24H [facility]; Protocol Last Titration: 02/23/22 13:21 Dose: 0 mcg/kg/min, 0 mls/hr Anidulafungin 100 mg/ Sodium (Chloride) 100 mls @ 84 mls/hr IVPB DAILY [facility]; Protocol Last Admin: 02/23/22 08:57 Dose: 84 mls/hr Levetiracetam 500 mg/ Sodium (Chloride) 105 mls @ 400 mls/hr IVPB Q12HR [facility] Levetiracetam 500 mg/ Sodium (Chloride) 105 mls @ 400 mls/hr IVPB 1400 [facility] Last Admin: 02/23/22 13:20 Dose: 400 mls/hr Insulin Aspart (Insulin Aspart (Novolog) 100 Unit/Ml Vial) 0 unit SQ Q6HR [facility]; Protocol Last Admin: 02/23/22 12:22 Dose: Not Given Insulin Detemir (Insulin Detemir (Levemir) 100 Unit/Ml Syr) 14 unit SQ HS [facility] Last Admin: 02/22/22 21:10 Dose: 14 unit Lactulose (Lactulose 20 Gm/30 Ml Cup) 30 gm PO DAILY [facility] Last Admin: 02/23/22 08:03 Dose: 30 gm Metoprolol Tartrate (Metoprolol Tartrate 25 Mg Tab) 25 mg PO BID [facility] Last Admin: 02/23/22 08:03 Dose: 25 mg Midodrine (Midodrine 5 Mg Tab) 10 mg PO AC-TID [facility] Last Admin: 02/23/22 16:46 Dose: 10 mg Miscellaneous Information (Potassium Replacement Protocol 1 Each Misc) 1 each MISCELLANE DAILY PRN; Protocol PRN Reason: Per Protocol Miscellaneous Information (Magnesium Replacement Protocol 1 Each Misc) 1 each MISCELLANE DAILY PRN; Protocol PRN Reason: Per Protocol Morphine Sulfate (Morphine Oral Soln 10 Mg/5 Ml Cup) 15 mg PO Q12H [facility] Last Admin: 02/23/22 13:08 Dose: 15 mg Naloxone HCl (Naloxone 0.4 Mg/Ml 1 Ml Vial) 0.2 mg IV Q2M PRN PRN Reason: Opioid Reversal Ondansetron HCl (Ondansetron 4 Mg/2 Ml Vial) 4 mg IVP Q8HR PRN PRN Reason: Nausea And Vomiting Last Admin: 02/02/22 08:41 Dose: 4 mg Pantoprazole Sodium (Pantoprazole 40 Mg/10 Ml Vial) 40 mg IVP BID [facility] Last Admin: 02/23/22 08:04 Dose: 40 mg Pregabalin (Pregabalin 100 Mg Cap) 100 mg PO BID [facility] Last Admin: 02/23/22 08:04 Dose: 100 mg Past medical history to include: COPD, diabetes, hypertension, hyperlipidemia, back problems, TB, atrial fibrillation, on Coumadin Social history: Smokes a pack a day for close to 50 years. Stop doing alcohol some time ago. Lives with his significant other Sandra. Does use a walker. 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 Conjunctiva normal. HEENT: External appearance of nose and ears normal, oral cavity dry, tra cheostomy NECK: JVD not raised; masses not palpable. HEART: Heart sounds regular; mild edema. LUNGS: Respiratory rate increased; decreased breath sound, ABDOMEN: Soft, distended, nontender, liver spleen not palpable, no masses palpable. PEG tube. PSYCH: Unable to assess, patient lethargic DERMATOLOGICAL: Wound on right ankle lateral malleolus. Under dressing. Stage II coccygeal breakdown. See nursing notes INVESTIGATIONS, reviewed in the clinical context: February 23: WBC 8 hemoglobin 8.4 platelets 172 progression 4.3. 46 creatinine 3.38 pro-calcitonin 1.38 Accu-Cheks 57, 82 February 22: WBC 8 hemoglobin 6.9 platelets 161 potassium 4.2. 39 creatinine 3.11 February 21: WBC 10.1 hemoglobin 7.5 platelets 134 potassium 4.5 BUN 48 creatinine 3.24 February 20: WBC 10.5 hemoglobin 7.2 platelets 90 sodium 137 potassium 4 BUN 44 creatinine 3.18 February 15: WBC 13.9 hemoglobin 9.6 platelets 96 potassium 4.4 BUN 59 creatinine 4.21 procalcitonin 2.05 Acute hepatitis screen: Negative Complement C3 78, complement C4 19.6 February 11: Sodium 138 potassium 4.4 creatinine 4.19 Sputum: Stenostrophonas maltophilia, Lynda albicans Computed tomography scan abdomen and pelvis [February 06] 6 mm stone in the right renal collecting system. Some circumferential wall thickening of the cecum and ascending colon. Distention of the rectum 7.5 cm with solid stool. EEG: Evidence of encephalopathy. No obvious epileptiform activity. 2-D echocardiogram: EF 60-65%. Renal ultrasound: Shows bilateral normal cortical medullary thickness. February 01: WBC 17.1 hemoglobin 14.8 UA: Blood large, leukoesterase moderate WBC 28 nitrite negative Lumbar spine CT: Anterior wedge compression deformity of L1. Multiple level DJD. 7 mm calculus right renal pelvis. CT chest without contrast: Right lateral eighth through 10th rib fractures with associated gas trace hemothorax right lower lobe pulmonary contusion/atelectasis. Patchy) disease left upper lobe. WBC 25.8 hemoglobin 14.1 platelets 217 INR greater than 10 sodium 131 potassium 3.9. 24 creatinine 1.8 to EKG tracing personally reviewed by me-atrial flutter. Rate 132 Foot/Lumbar/sacral coccyx: Spondylitic changes. No fracture. Chest x-ray film personally reviewed by me-clinically. Possible hyperinflation Assessment and plan: -Coumadin toxicity. INR greater than 10. On presentation: 10 mg vitamin K in the ER. Hemoptysis on presentation. Coumadin resumed on February 05.. - right lung contusion.-Secondary to fall. hemoptysis on presentation -Pneumonia, secondary to Stenostrophonas maltophilia, Lynda albicans: Slow to respond IV cefepime, IV anidulafungin -Sepsis with positive blood cultures MSSA, likely source right ankle. From January 31. IV cefepime. February 04 blood culture negative -Acute hypoxic respiratory failure, multifactorial: ventilator support,: Slow to respond Patient intubated on February 05 -Acute COPD exacerbation, with chronic bronchitis component in a current smoker: Slow to respond DuoNeb. Nebulized Pulmicort. Mucinex. -Chronic nicotine dependence, cigarette smoker Nicotine patch -Paroxysmal atrial flutter,: Back in sinus rhythm Lopressor 50 mg 3 times a day. 2-D echocardiogram unremarkable. Oral amiodarone Coumadin started on February 05 -Possible CK D with possible acute component. creatinine was 0.8 in April 2019. Renal ultrasound unremarkable. UA shows trace protein. IV fluids.. -Acute kidney injury, ATN, likely cardiorenal syndrome.: Not improving Follow with nephrology. Daily Hemodialysis started February 09 -Acute right-sided 8-10 ribs fracture secondary to fall K pad -Diabetes mellitus type 2, chronically on oral hypoglycemic Sliding scale insulin. Increase tube feeding. DC Levemir -Diabetic peripheral neuropathy Decreased dose of Lyrica in the setting of renal failure. 100 mg twice a day -Chronic low back pain: MS Contin 15 mg every 12, [place] 7.5 twice a day when necessary -Anxiety depression not otherwise specified Wellbutrin XL 100 mg twice a day -Hyperlipidemia Lipitor 40 mg daily at bedtime -Right ankle lateral, diabetic wound, stage II acute. Wound culture positive for Streptococcus agalactiae and Staphylococcus aureus. IV Ancef initially. Follow with ID Patient has poor distal pulses. February 01 wound was debrided by Dr. Ibarra. Clean base. -Acute L1 30% wedge fracture secondary to fall LSO brace. Be followed by Dr. Damon -Acute delirium multifactorial. Slow to respond -Acute ileus, NG tube for decompression.; clamped.: Corrected Being followed by surgery. -Possible colitis /fistula on computed tomography scan. IV Flagyl. Cefepime. Followed by surgery -Normocytic anemia, multifactorial. Chronic disease component, hospital- acquired/blood draw and infection. Suspicions hypotensive requiring levo fed will transfuse a unit of blood. IV norepinephrine. IV Flagyl,/IV cefepime/IV anidulafungin. Increase PEG tube feeding . DC Levemir. Dose of Keppra increased by neurology. EEG 2 have been negative. Prognosis remains guarded.
[2022-02-23 17:47] LABS: Glucose,Whole Blood 93 mg/dL (70-110)
--- NOTE | 2022-02-23 22:11 | P.PN ---
Subjective Progress Note Date: 02/23/22 Principal diagnosis: Right foot infected pressure ulcer and bacteremia Patient is a 61-year-old male presented to the hospital for evaluation of fall patient also noticed to have a wound on the right lateral foot with some necrotic edges which has been debridement by vascular surgery on 01/31/2022.Patient has been transthoracic because of significant mental status changes, The patient ended up getting intubated, the patient also have worsening of the kidney function requiring dialysis catheter placement and has been started on dialysis as of 02/09/2022, the patient did have a PEG tube placement on 02/12/2022 , The patient is s/p tracheostomy completed on 02/17/2022, the patient is status post bronchoscopy completed on 02/20/2022 On today's evaluation that is 02/23/2022, The patient remains to be afebrile the patient on the vent and FiO2 is down to 50 %, patient is on a low-dose pressor support especially the time of dialysis, no significant purulent secretions through the ET or diarrhea reported by nursing staff Objective - Vital Signs Vital signs: Vital Signs Temp 98.2 F 02/23/22 00:00 Pulse 108 H 02/23/22 12:30 Resp 26 H 02/23/22 12:30 BP 115/77 02/23/22 02:30 Pulse Ox 99 02/23/22 12:30 FiO2 50 02/23/22 12:00 Intake & Output 02/22/22 02/23/22 02/23/22 18:59 06:59 18:59 Intake Total 1288.616 723.947 480.647 Output Total 30 40 17 Balance 1258.616 683.947 463.647 Weight 155.5 kg 155.5 kg Intake: IV 584 348 269.5 0.9% Sodium Chloride @ 195 165 55 10mls/hr Anidulafungin 100 mg In 100 84 Sodium Chloride 0.9% 100 ml @ 84 mls/hr IVPB DAILY [facility] Rx#:[id number] Cefepime 1 gm In Sodium 50 50 12.5 Chloride 0.9% 50 ml @ 12. 5 mls/hr IVPB Q12HR [facility] Rx#:[id number] Pressure bags 39 33 18 metroNIDAZOLE-NS PMX 500 200 100 100 mg In Saline 1 100ml.bag @ 100 mls/hr IVPB Q8HR [facility] Rx#:[id number] Intake, IV Titration 9.616 10.947 1.147 Amount Norepinephrine 32 mg In 9.616 10.947 1.147 Sodium Chloride 0.9% 218 ml @ 0.05 MCG/KG/MIN 3. 246 mls/hr IV .Q24H [facility] Rx#:[id number] Tube Feeding 325 275 180 Blood Product 310 Rc As-1 Unit 310 [id number] Other 60 90 30 Output: Urine 30 40 17 Other: Voiding Method Indwelling Catheter Indwelling Catheter Indwelling Catheter ABP, PAP, CO, CI - Last Documented Arterial Blood Pressure 141/64 - Exam GENERAL DESCRIPTION: Middle-aged male intubated Through the trach LUNGS: Unlabored breathing. Decreased breath sound at the base HEART: S1, S2, regular rate and rhythm. ABDOMEN: Soft, no tenderness , guarding or rigidity, no organomegaly EXTREMITIES: Right foot wound is currently dressed no drainage on the dressing - Labs CBC & Chem 7: 02/23/22 04:00 02/23/22 04:00 Labs: Abnormal Lab Results - Last 24 Hours (Table) 02/22/22 02/23/22 02/23/22 Range/Units 12:51 04:00 04:00 RBC (4.30-5.90) m/uL Hgb (13.0-17.5) gm/dL Hct (39.0-53.0) % RDW (11.5-15.5) % ABG Total CO2 (19-24) mmol/L ABG O2 Saturation (94-97) % BUN (9-20) mg/dL Creatinine (0.66-1.25) mg/dL Glucose (74-99) mg/dL POC Glucose (mg/dL) (70-110) mg/dL Calcium (8.4-10.2) mg/dL C-Reactive Protein 5.6 H (<1.0) mg/dL Procalcitonin 1.38 H (0.02-0.09) ng/mL Crossmatch See Detail 02/23/22 02/23/22 02/23/22 Range/Units 04:00 04:00 05:36 RBC 2.70 L (4.30-5.90) m/uL Hgb 8.4 L D (13.0-17.5) gm/dL Hct 26.7 L (39.0-53.0) % RDW 20.8 H (11.5-15.5) % ABG Total CO2 (19-24) mmol/L ABG O2 Saturation (94-97) % BUN 46 H (9-20) mg/dL Creatinine 3.38 H (0.66-1.25) mg/dL Glucose 62 L (74-99) mg/dL POC Glucose (mg/dL) 57 L (70-110) mg/dL Calcium 7.7 L (8.4-10.2) mg/dL C-Reactive Protein (<1.0) mg/dL Procalcitonin (0.02-0.09) ng/mL Crossmatch 02/23/22 Range/Units 05:57 RBC (4.30-5.90) m/uL Hgb (13.0-17.5) gm/dL Hct (39.0-53.0) % RDW (11.5-15.5) % ABG Total CO2 26 H (19-24) mmol/L ABG O2 Saturation 99.0 H (94-97) % BUN (9-20) mg/dL Creatinine (0.66-1.25) mg/dL Glucose (74-99) mg/dL POC Glucose (mg/dL) (70-110) mg/dL Calcium (8.4-10.2) mg/dL C-Reactive Protein (<1.0) mg/dL Procalcitonin (0.02-0.09) ng/mL Crossmatch Microbiology - Last 24 Hours (Table) 02/20/22 15:40 Gram Stain - Preliminary Bronchoalviolar Lavage - Right Bronchial Washings Culture - Preliminary Gram Neg Bacilli Assessment and Plan (1) Cellulitis Current Visit: Yes Status: Acute Code(s): L03.90 - CELLULITIS, UNSPECIFIED SNOMED Code(s): 970890439 Plan: 1patient with right foot unstageable pressure ulcer with surrounding necrotic area and cellulitis On admission,x-rays do not show any bony changes likely from gram-positive skin caleb and less likely gram-negative pathogen, patient is status post vascular surgery evaluation and debridement and deep cultureWhich has been finalized with strep and MSSA. 2-patient with MSSA bacteremia source is likely right foot infected pressure ulcer, Repeat blood culture has been negative 3Patient did have significant abnormality seen on the CT obtained by surgery with concern for possible fecal impaction and some inflammation of the colon and possible fistula which has been ruled out by general surgery. 4- patient sputum from 02/05/2022 has been finalized with stenotrophomonas sensitive to Fortaz and sputum with Lynda albicans concern for component of oropharyngeal candidiasis, 5-Patient did have a stage II pressure ulcer to the sacral area with no cellulitis local wound care with a dry Aquacel silver dressing. 6patient to continue with cefepime and Eraxis Will waiting for bronchoscopy cultures to be finalized which are currently growing gram-negative and has not been finalized yet, overall prognosis remains to be guarded Time with Patient: Less than 30
[2022-02-23] MEDS: NOREPINEPHRINE 32 MG in SODIUM CHLORIDE 0.9% 218 ML IV SCH (23:27)
[2022-02-23 23:30] LABS: Glucose,Whole Blood 83 mg/dL (70-110)
--- NOTE | 2022-02-23 23:38 | EEG ---
ELECTROENCEPHALOGRAM REPORT CLINICAL HISTORY: This is a 61-year-old gentleman with continued confusion, has right facial twitching and abnormal tongue movement. The video EEG is obtained to evaluate for seizure epileptiform activity. RELEVANT MEDICATION: The patient is on IV Keppra. EEG TYPE: A routine 21-channel EEG is performed with video using the 10/20 electrode placement system. DESCRIPTION: The patient has a trach on a ventilator and is not on any sedation. So, the patient has a trach and is on a ventilator. The exam is very limited because of the patient's uncontrollable head movement and tongue movement. From the limited study, the patient's background consists of low to moderate voltage of 3 to 4 hertz nonrhythmic delta activity. There is no appreciable focal slowing. There is significant myogenic artifact throughout the study due to uncontrollable head movement as well as uncontrollable tongue movement. Interictal and ictal is none, that was appreciable but again it is very limited. ACTIVATION PROCEDURE: Photic stimulation and hyperventilation are not performed. CLINICAL INTERPRETATION: This is an abnormal routine EEG. The study is limited because of the diffuse myogenic artifact due to his uncontrollable head movement and tongue movement. From the limited study, the background is severely slow and has severe encephalopathy. Otherwise, there is no focal slowing, epileptiform discharge or seizure on the EEG that was appreciable. Clinical correlation is recommended. AVIVA / VINCE: [id number] / NITIN
[2022-02-24 05:23] LABS: Glucose,Whole Blood 118 mg/dL (70-110)
[2022-02-24] MEDS: INSULIN ASPART (NovoLOG) 100 UNIT/ML VIAL SQ SCH ×3 (05:30→18:22)
[2022-02-24 05:43] LABS: Anisocytosis Moderate; Basophils # (A) 0.1 k/uL (0-0.2); Basophils % (A) 1 %; Eosinophils # (A) 0.4 k/uL (0-0.7); Eosinophils % (A) 6 %; HGB 7.7 gm/dL (13.0-17.5); Hypochromasia Marked; Lymphocytes # (A) 0.6 k/uL (1.0-4.8); Lymphocytes % (A) 9 %; MCH 29.5 pg (25.0-35.0); MCHC 29.8 g/dL (31.0-37.0); MCV 99.2 fL (80.0-100.0); Macrocytosis Moderate; Mean Platelet Volume 10.9; Monocytes # (A) 0.4 k/uL (0-1.0); Monocytes % (A) 6 %; Neutrophils # (A) 4.6 k/uL (1.3-7.7); Neutrophils % (A) 75 %; Platelet Count 163 k/uL (150-450); RBC 2.62 m/uL (4.30-5.90); RDW 20.6 % (11.5-15.5); WBC 6.2 k/uL (3.8-10.6)
[2022-02-24 05:52] LABS: Calcium 7.6 mg/dL (8.4-10.2); Potassium 4.3 mmol/L (3.5-5.1)
[2022-02-24 06:00] LABS: ABG Base Excess 0.3 mmol/L; ABG HCO3 25 mmol/L (21-25); ABG Oxygen Saturation 98.2 % (94-97); ABG PCO2 42 mmHg (35-45); ABG PH 7.39 (7.35-7.45); ABG PO2 99 mmHg (83-108); ABG TCO2 27 mmol/L (19-24); Allen Test Performed? Yes
[2022-02-24] MEDS: MIDODRINE 5 MG TAB PO SCH ×3 (06:47→18:22)
[2022-02-24] MEDS: CALCIUM ACETATE 667 MG TAB PO SCH ×3 (06:47→18:22)
[2022-02-24] MEDS: BUDESONIDE 1 MG/2 ML NEBU INHALATION SCH ×2 (07:32→19:21)
[2022-02-24] MEDS: IPRATROPIUM-ALBUTEROL 3 ML NEB INHALATION SCH ×4 (07:32→19:20)
--- NOTE | 2022-02-24 08:20 | XR ---
EXAMINATION TYPE: XR chest 1V portable DATE OF EXAM: 02/24/2022 COMPARISON: Chest x-ray 02/22/2022 HISTORY: Tracheostomy tube, abnormal chest x-ray TECHNIQUE: Single frontal view of the chest is obtained. FINDINGS: There is been interval improvement in aeration in the upper right lung. Persistent abnorma l basilar density obscures the hemidiaphragms and heart margins. Tracheostomy tube is overlying the t radha air column, there is a right subclavian central venous catheter with the distal tip overlying superior vena cava. There are overlying artifacts. Additional tubing present overlying the tracheal air column is not well seen distally, possible orogastric tube in place. IMPRESSION: There is some improved aeration in the right upper lobe.
[2022-02-24] MEDS: AMIODARONE 200 MG TAB PO SCH ×2 (08:45→20:01)
[2022-02-24] MEDS: metroNIDAZOLE-NS PMX 500 MG in SALINE 1 100ML.BAG IVPB SCH ×2 (08:45→15:49)
[2022-02-24] MEDS: LACTULOSE 20 GM/30 ML CUP PO SCH ×2 (08:46→12:24)
[2022-02-24] MEDS: CHLORHEXIDINE GLUCONATE 15 ML CUP MUCOUS MEM SCH ×2 (08:46→20:01)
[2022-02-24] MEDS: APIXABAN 2.5 MG TABLET PO SCH ×2 (08:46→20:01)
[2022-02-24] MEDS: CEFEPIME 1 GM in SODIUM CHLORIDE 0.9% 50 ML IVPB SCH ×2 (08:46→20:02)
[2022-02-24] MEDS: METOPROLOL TARTRATE 25 MG TAB PO SCH ×2 (08:47→20:02)
[2022-02-24] MEDS: PREGABALIN 100 MG CAP PO SCH ×2 (08:48→20:01)
[2022-02-24] MEDS: PANTOPRAZOLE 40 MG/10 ML VIAL IVP SCH ×2 (08:48→20:01)
[2022-02-24] MEDS: levETIRAcetam IV 500 MG in SODIUM CHLORIDE 0.9% 100 ML IVPB SCH ×2 (09:02→22:14)
--- NOTE | 2022-02-24 09:03 | P.PN ---
Subjective Patient is seen in follow-up for acute kidney injury. Started on hemodialysis 02/09/2022. Off vasopressors. Receiving tube feeds. Tolerated 3 L ultrafiltration yesterday. Blood pressure stable. Vital signs are stable. General: Resting in bed. HEENT: Tracheostomy noted. LUNGS: Breath sounds decreased. HEART: Rate and Rhythm are regular. ABDOMEN: Soft, no distention. EXTREMITITES: 2+ edema. Objective - Vital Signs Vital signs: Vital Signs Temp 98.2 F 02/24/22 04:00 Pulse 78 02/24/22 07:45 Resp 24 02/24/22 07:00 BP 131/71 02/23/22 12:59 Pulse Ox 99 02/24/22 07:00 FiO2 50 02/24/22 07:12 Intake & Output 02/23/22 02/24/22 02/24/22 18:59 06:59 18:59 Intake Total 3356.590 7986 73 Output Total 3032 48 5 Balance -2010.557 1068 68 Weight 155.5 kg 153 kg Intake: IV 507.5 476 23 0.9% Sodium Chloride @ 175 240 20 10mls/hr Anidulafungin 100 mg In 84 Sodium Chloride 0.9% 100 ml @ 84 mls/hr IVPB DAILY [facility] Rx#:[id number] Cefepime 1 gm In Sodium 12.5 100 Chloride 0.9% 50 ml @ 12. 5 mls/hr IVPB Q12HR [facility] Rx#:[id number] Pressure bags 36 36 3 levETIRAcetam IV 500 mg 100 In Sodium Chloride 0.9% 100 ml @ 400 mls/hr IVPB DAILY [facility] Rx#:[id number] metroNIDAZOLE-NS PMX 500 100 100 mg In Saline 1 100ml.bag @ 100 mls/hr IVPB Q8HR [facility] Rx#:[id number] Intake, IV Titration 2.943 Amount Norepinephrine 32 mg In 2.943 Sodium Chloride 0.9% 218 ml @ 0.05 MCG/KG/MIN 3. 246 mls/hr IV .Q24H [facility] Rx#:[id number] Tube Feeding 420 550 50 Other 90 90 Output: Urine 32 48 5 Hemodialysis 3000 Other: Voiding Method Indwelling Catheter Indwelling Catheter ABP, PAP, CO, CI - Last Documented Arterial Blood Pressure 135/61 - Labs CBC & Chem 7: 02/24/22 05:15 02/24/22 05:15 Labs: Abnormal Lab Results - Last 24 Hours (Table) 02/23/22 02/24/22 02/24/22 Range/Units 04:00 05:15 05:15 RBC 2.62 L (4.30-5.90) m/uL Hgb 7.7 L (13.0-17.5) gm/dL Hct 26.0 L (39.0-53.0) % MCHC 29.8 L (31.0-37.0) g/dL RDW 20.6 H (11.5-15.5) % Lymphocytes # 0.6 L (1.0-4.8) k/uL ABG Total CO2 (19-24) mmol/L ABG O2 Saturation (94-97) % BUN 42 H (9-20) mg/dL Creatinine 3.11 H (0.66-1.25) mg/dL Glucose 109 H (74-99) mg/dL POC Glucose (mg/dL) (70-110) mg/dL Calcium 7.6 L (8.4-10.2) mg/dL Procalcitonin 1.38 H (0.02-0.09) ng/mL 02/24/22 02/24/22 Range/Units 05:21 05:56 RBC (4.30-5.90) m/uL Hgb (13.0-17.5) gm/dL Hct (39.0-53.0) % MCHC (31.0-37.0) g/dL RDW (11.5-15.5) % Lymphocytes # (1.0-4.8) k/uL ABG Total CO2 27 H (19-24) mmol/L ABG O2 Saturation 98.2 H (94-97) % BUN (9-20) mg/dL Creatinine (0.66-1.25) mg/dL Glucose (74-99) mg/dL POC Glucose (mg/dL) 118 H (70-110) mg/dL Calcium (8.4-10.2) mg/dL Procalcitonin (0.02-0.09) ng/mL Assessment and Plan Plan: Assessment: 1. Acute kidney injury secondary to ATN secondary to septic shock. Started on hemodialysis 02/09/2022. Oliguric. Creatinine in April 2019 was 0.8. Creatinine was as low as 1.62 this admission. No hydronephrosis noted on CAT scan. 2. MSSA bacteremia with likely source being right foot ulcer. Also component of pneumonia. ID following. On antibiotics. Also on antifungal. 3. A. fib. Cardiology following. On amiodarone and beta donovan. 4. Metabolic acidosis secondary to acute kidney injury. Stable. 5. Diabetes mellitus. 6. Hyperphosphatemia secondary to acute kidney injury. on PhosLo. 7. Volume overload. Improved with ultrafiltration. Status post bronchoscopy 02/20/2022 with removal of mucous plugs and bronchioloalveolar lavage. 8. Anemia. Iron replete. On Aranesp. Hemoglobin 7.7 today. No active bleeding. Plan: Hemodialysis today mostly for ultrafiltration. Another treatment tomorrow. Stopped Demadex as patient has no urine output. Maintain tube feeds. Wean FiO2 and vasopressors. Maintain midodrine. Hold for systolic blood pressure greater than 115. Continue to monitor for renal recovery. Serologies negative except C3 slightly low.
[2022-02-24] MEDS: COLLAGENASE 250 UNIT/GM OINTMENT 30 GM TUBE TOPICAL SCH (09:15)
[2022-02-24] MEDS: ANIDULAFUNGIN 100 MG in SODIUM CHLORIDE 0.9% 100 ML IVPB SCH (09:59)
--- NOTE | 2022-02-24 11:20 | P.PN ---
Progress Note - Text Progress Note Date: 02/24/22 Hospital course This is a 61-year-old patient who follows with Dr. Sridhar Chan. Chronic stable medical conditions include diabetes, hypertension, hyperlipidemia, chronic low back problems, cigarette smoker. At the baseline uses a walker. Patient slipped in the bathroom falling on his buttock. Was not able to get up. By the EMS report he had fallen 24 hours prior to the picking him up. Patient been complaining of pain in the right rib cage in the lower back. X-ray was negative for fracture. Patient continued to have significant pain especially with deep breathing. Patient also had a congestive cough and wheezing. Some bloody sputum. Denies any fever and chills. Patient also complaining of urinary retention and requesting a Shepard catheter. at the bedside. No fever no chills. Orthopedics consulted for the same. Patient normally has a bowel movement once a week. Patient also has a wound on the right foot lateral part of the ankles for about a week. Ischemic changes. From rubbing against a bedpost. Patient's INR in the ER was greater than 10. Was given vitamin K. 10 mg Patient bit with Coumadin toxicity, given vitamin K, acute COPD exacerbation, uncontrolled atrial flutter put on Lopressor, right chest wall pain. Computed tomography scan lumbar spine and chest was ordered. Large wound on the right lateral malleolus-ID and vascular consulted.. IV cefepime. February 01: Patient yesterday to see refused his computed tomography scan of the chest and lumbar spine. Done today. Right-sided rib fractures, pulmonary contusion confirm. L1 vertebral body 30% wedge compression fracture. Patient's girlfriend the bedside. It was discussed in detail with her. Patient wanting again and again to pull out his NG tube. Requests the to stay with the patient. Patient is also had the dark aspirate from the stomach for which she has NG tube. Surgery was consulted for the same. Also this morning right foot wound was debrided by Dr. Ibarra from vascular. Wound base was relatively clean. No undermining or tunneling. February 02: Delirious. NG tube to suction. Has been in restraints because point NG TUBE several times. Mumbling to himself. Dressing over the right ankle. Not in distress. Ileus. Chest x-ray showing right lower lobe/ate lectasis. February 03: Hospital computer system was down. Patient remains delirious. Nasal cannula. Lethargic. Family the bedside. Antibiotics. A. fib uncontrolled. EEG evidence of metabolic encephalopathy. No clear-cut epileptiform activity. Started on Keppra by neurology. February 04: ICU: Girlfriend at the bedside. In atrial fibrillation uncontrolled. On IV Cardizem and IV amiodarone. NG tube to suction. Patient lethargic. Multiple breathing. 2 L. Oxygen. February 05: ICU. Atrial fibrillation better controlled this morning. Cardizem discontinued. Patient respiratory status worsened this morning and patient is intubated. FiO2 45 and a PEEP of 5. Atrial fibrillation, controlled. Drips include amiodarone, propofol, levo fed. Discussed with girlfriend the bedside. Understands prognosis guarded. February 06: ICU: Ventilated. FiO2 45 and a PEEP of 5. NG tube is clamped. On IV propofol. Sedated. Heart rate better controlled. Was started on Coumadin yesterday. Worsening renal function. Nephrology consulted. 02/07/2022 Patient is currently in the MICU and on mechanical ventilator. Tidal volume of 400, FiO2 40% and PEEP of 5. Patient is off pressor support today. Currently on propofol and is also on tube feeding. Chest x-ray showed stable exam with stable support lines and tubes. Correlate for congestive heart failure. Patient was given a dose of IV Lasix. Laboratory data showed WBC 18.4 hemoglobin 11.6 and platelets 458 Sodium 141 potassium 3.7 chloride 103 bicarb is 18 BUN 49 and creatinine 3.73 and calcium 7.3. INR is 2.2. Patient is being followed by nephrology cardiology and critical care team. 02/08/2022 Patient is currently on mechanical ventilator and sedated with propofol. Assist control with FiO2 40% and tidal volume of 400 and PEEP of 5. Patient is being continued on antibiotics above cefepime and Flagyl. Sputum gram stain gram-negative bacilli and Lynda. Chest x-ray today showed findings suggestive of slightly worsening CHF exacerbation as there is cardiomegaly with mild to moderate central venous congestion and small to moderate-sized bilateral pleural effusion. Laboratory test showed WBC increased to 23.6 hemoglobin 9.1 and platelets 162 INR 3.0 Sodium 139 potassium 4.3 chloride 113 bicarb is 40 BUN 54 and creatinine worsening to 4.36 February 09: I resumed the care of patient today ICU: Med: 40/5. Received vitamin K 5 mg IV to bring the INR down for dialysis catheter. Drips include bicarbonate, propofol, epinephrine. Patient is a stage II coccyx is ulcer. Plan is to change the NG tube to on G-tube today. For possible colitis/fistula on antibiotics. at the bedside. February 10: ICU. Ventilator 50/5. Hemodialysis catheter placed last night. Hemodialyzed yesterday and getting dialyzed today. Remains in atrial fibrillation heart rate uncontrolled. Getting up sedation holiday. Drips include bicarbonate and norepinephrine. Propofol currently held. 2 feeding at 46 mL an hour. Does open eyes. February 11: ICU. Ventilator. 50/5. Third day for hemodialysis. 1.5 L to be removed today. Back on propofol. Drips include bicarbonate, norepinephrine, propofol. On G-tube feeding. Patient back in sinus rhythm. Bag and tracheostomy to planning for next week. 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 IV antifungal started by ID. February 12: ICU: Ventilator: 40/5. Telemetry shows sinus rhythm. Drips include propofol and norepinephrine. On G-tube feeding. Discussed with the at the bedside. Understands prognosis guarded. IV antibiotics and antifungals. February 13: ICU: Ventilator: 40/5. PEG tube placed yesterday by Dr. Cornejo. Drips include bicarbonate, propofol, norepinephrine. Getting hemodialysis done today. February 14: ICU: Medicated. 2 feeding at 65 mL an hour. This included propofol and norepinephrine. Hemodialysis done today. Sinus rhythm. February 15: ICU: Ventilator: 40/5. 2 feeding at 65 mL an hour. Drips include propofol and norepinephrine. No hemodialysis today. at the bedside. Discussed. 02/16/2022 Patient seen and evaluated and follow-up continues to be in the ICU on mechanical ventilation with sedation with multiple medical consultations following. Patient is currently receiving hemodialysis and continues with a temporary dialysis catheter. Patient is still full code and overall prognosis remains extremely poor and guarded. Patient's FiO2 is 40% with a PEEP of 5. Patient also continues on antifungal along with cefepime and metronidazole with infectious disease following. Patient is sedated on propofol continues on Levophed as well. WBC is 12.9 with hemoglobin of 8.7, sodium is 134 with a potassium of 4.5 current creatinine is 4.69 with a BUN of 66. Patient is maintained on tube feedings and has received the PEG tubing is scheduled for tracheostomy tentatively today if OR available. Again overall prognosis remains extremely guarded. 02/17/2022 Patient continues to be in the ICU on mechanical vent and FiO2 remains 40% with a PEEP of 5. Patient continues on norepinephrine with multiple medical consultations following. Patient continues on propofol for sedation and also was maintained on hemodialysis almost daily. Patient continues on cefepime along with an antifungal and Flagyl with anxiety following sputum culture showing 16 oh troph ammonias maltophilia with Lynda most recent blood cultures have been negative. Patient is afebrile although WBC is elevated at 14.5 and hemoglobin is 8.9, BUN is 61 with a creatinine of 4.55, sodium is 135 and sodium bicarb tablets have been discontinued. Magnesium was 1.9. Plan is tentatively scheduled for tracheostomy with general surgery today post hemodialysis. Overall prognosis is extremely guarded. Chest x-ray shows continued bilateral pleural effusions with no significant change from previous day. Patient is maintained on tube feedings via PEG tube although on hold for surgery today 02/18/2022 Patient is seen and evaluated continues to be in the ICU with multiple medical consultations following. Patient is status post tracheostomy placement with Dr. Villegas yesterday evening and tolerating well with no leaks noted. Patient continues on FiO2 of 40% with a PEEP of 5. Patient undergoing sedation holiday and propofol was recently turned off. Patient is awake and opening eyes spontaneously although not following commands on exam. Patient is looking around the room and mouthing words with no comprehension. Patient with extensive wounds of the sacro-coccyx region that are currently unstageable and general surgery is following and may possibly require debridement of these areas. Patient is status post debridement of the right foot previously. Patient is maintained on antibiotics along with antifungal's and infectious disease is following. Patient is afebrile and WBC is 10.6, hemoglobin is 8.4, patient is also with a BUN of 50 and creatinine is 3.78, magnesium is 1.8. Patient is being closely monitored by nephrology with a temporary site of the right femoral receiving daily dialysis. Patient continues on low-dose Levophed and working on weaning as tolerated. PEG tube feedings are at goal and t olerating. Overall prognosis remains extremely guarded. 02/19/2022 Patient is seen in follow-up this morning and has been off propofol since yesterday although continues to not follow commands. Multiple medical consultations following. Patient is status post recent tracheostomy and also PEG tube placement and has been resumed on tube feedings and tolerating at goal. Patient is continuing on hemodialysis with a right groin temporary catheter. Chest x-ray this morning shows some possible progression of pleural effusions and airspace disease or atelectasis especially in the right lung. Nursing staff questioning about anticoagulation and his Coumadin was on hold for tracheostomy and patient is being started on eliquis. Patient continues on antibiotics as well in the form of cefepime and Flagyl and antifungal's with anxiety following. Patient also continues on low-dose Levophed. Patient continues on mechanical ventilation via tracheostomy with an FiO2 of 60. Patient scheduled to receive dialysis again today. General surgery is following and may be required for debridement of the decubitus ulcers once more stable. Pulmonary discussing possible thoracentesis in the near future. Patient is currently afebrile. Prognosis remains extremely guarded. February 20: [facility]. Ventilator. FiO2 16 a PEEP of 8. Has a PEG and trach. Awake, drowsy. On norepinephrine. at the bedside. February 21: ICU: Ventilator. FiO2 60 PEEP of 8. Hemodialysis today. Drips include norepinephrine. Sinus tachycardia. Does open eyes. Sticks his tongue. Drowsy. Not really following commands February 22: ICU: Ventilator. FiO2 16 a PEEP of 8. Patient is in and out of atrial fibrillation. Does open eyes and sticks his tongue out intermittently. Nonpurposeful. Currently on levo fed drip small dose. Midodrine has been added. 2 feeding at 25 mL an hour. at the bedside. February 23: ICU: Ventilator. FiO2 50 PEEP of 12. Drips include norepinephrine. Decreased Accu-Chek. tube feeding increased. February 24: ICU: Ventilator: FiO2 50 and a PEEP of 12. 2 feeding at 40. Patient is off levo fed. Lethargic. EEG yesterday showed encephalopathy obvious evidence of seizure. Keppra ordered per neurology. Ultrafiltration hemodialysis today. Significant edema. Active Medications Acetaminophen (Acetaminophen Tab 325 Mg Tab) 650 mg PO Q6HR PRN PRN Reason: Mild Pain or Fever > 100.5 Albuterol/Ipratropium (Ipratropium-Albuterol 3 Ml Neb) 3 ml INHALATION RT-QID [facility] Last Admin: 02/24/22 10:44 Dose: 3 ml Amiodarone HCl (Amiodarone 200 Mg Tab) 200 mg PO BID [facility] Last Admin: 02/24/22 08:45 Dose: 200 mg Apixaban (Apixaban 2.5 Mg Tablet) 2.5 mg PO BID [facility]; Protocol Last Admin: 02/24/22 08:46 Dose: 2.5 mg Artificial Tears (Artificial Tears-Hypromellose Drops 15 Ml Btl) 2 drops BOTH EYES TID PRN PRN Reason: Dry Eye(s) Budesonide (Budesonide 1 Mg/2 Ml Nebu) 1 mg INHALATION RT-BID [facility] Last Admin: 02/24/22 07:32 Dose: 1 mg Calcium Acetate (Calcium Acetate 667 Mg Tab) 667 mg PO TID-W/MEALS [facility] Last Admin: 02/24/22 06:47 Dose: 667 mg Calcium Carbonate/Glycine (Calcium Carbonate 500 Mg Chewable) 1,000 mg PO Q4HR PRN PRN Reason: Dyspepsia Last Admin: 01/31/22 14:29 Dose: 1,000 mg Chlorhexidine Gluconate (Chlorhexidine Gluconate 15 Ml Cup) 15 ml MUCOUS MEM BID [facility] Last Admin: 02/24/22 08:46 Dose: 15 ml Collagenase (Collagenase 250 Unit/Gm Ointment 30 Gm Tube) 1 applic TOPICAL DAILY [facility]; Protocol Last Admin: 02/23/22 09:11 Dose: 1 applic Darbepoetin Mann (Darbepoetin Mann 60 Mcg/0.3 Ml Syringe) 60 mcg SQ Q7D [facility] Last Admin: 02/18/22 18:34 Dose: 60 mcg Dextrose/Water (Dextrose 50% Syringe 50 Ml) 25 ml IVP PER PROTOCOL PRN; Protocol PRN Reason: Hypoglycemia Last Admin: 02/23/22 05:39 Dose: 25 ml Dextrose/Water (Dextrose 50% Syringe 50 Ml) 50 ml IVP PER PROTOCOL PRN; Protocol PRN Reason: Hypoglycemia Propofol 1,000 mg/ IV Solution 100 mls @ 4.08 mls/hr IV .Q24H [facility]; Protocol Last Admin: 02/23/22 17:30 Dose: Not Given Metronidazole 500 mg/ IV (Solution) 100 mls @ 100 mls/hr IVPB Q8HR [facility]; Protoco l Last Admin: 02/24/22 08:45 Dose: 100 mls/hr Cefepime HCl 1 gm/ Sodium (Chloride) 50 mls @ 12.5 mls/hr IVPB Q12HR [facility] Last Admin: 02/24/22 08:46 Dose: 12.5 mls/hr Norepinephrine Bitartrate 32 (mg/ Sodium Chloride) 250 mls @ 3.246 mls/hr IV .Q24H [facility]; Protocol Last Admin: 02/23/22 23:27 Dose: Not Given Anidulafungin 100 mg/ Sodium (Chloride) 100 mls @ 84 mls/hr IVPB DAILY [facility]; Protocol Last Admin: 02/24/22 09:59 Dose: 84 mls/hr Levetiracetam 500 mg/ Sodium (Chloride) 105 mls @ 400 mls/hr IVPB Q12HR [facility] Last Admin: 02/24/22 09:02 Dose: 400 mls/hr Levetiracetam 500 mg/ Sodium (Chloride) 105 mls @ 400 mls/hr IVPB 1400 [facility] Last Admin: 02/23/22 13:20 Dose: 400 mls/hr Insulin Aspart (Insulin Aspart (Novolog) 100 Unit/Ml Vial) 0 unit SQ Q6HR [facility]; Protocol Last Admin: 02/24/22 05:30 Dose: Not Given Lactulose (Lactulose 20 Gm/30 Ml Cup) 30 gm PO DAILY [facility] Last Admin: 02/24/22 08:46 Dose: 30 gm Metoprolol Tartrate (Metoprolol Tartrate 25 Mg Tab) 25 mg PO BID [facility] Last Admin: 02/24/22 08:47 Dose: 25 mg Midodrine (Midodrine 5 Mg Tab) 10 mg PO AC-TID [facility] Last Admin: 02/24/22 06:47 Dose: 10 mg Miscellaneous Information (Potassium Replacement Protocol 1 Each Misc) 1 each MISCELLANE DAILY PRN; Protocol PRN Reason: Per Protocol Miscellaneous Information (Magnesium Replacement Protocol 1 Each Misc) 1 each MISCELLANE DAILY PRN; Protocol PRN Reason: Per Protocol Naloxone HCl (Naloxone 0.4 Mg/Ml 1 Ml Vial) 0.2 mg IV Q2M PRN PRN Reason: Opioid Reversal Ondansetron HCl (Ondansetron 4 Mg/2 Ml Vial) 4 mg IVP Q8HR PRN PRN Reason: Nausea And Vomiting Last Admin: 02/02/22 08:41 Dose: 4 mg Pantoprazole Sodium (Pantoprazole 40 Mg/10 Ml Vial) 40 mg IVP BID [facility] Last Admin: 02/24/22 08:48 Dose: 40 mg Pregabalin (Pregabalin 100 Mg Cap) 100 mg PO BID [facility] Last Admin: 02/24/22 08:48 Dose: 100 mg Past medical history to include: COPD, diabetes, hypertension, hyperlipidemia, back problems, TB, atrial fibrillation, on Coumadin Social history: Smokes a pack a day for close to 50 years. Stop doing alcohol some time ago. Lives with his significant other Sandra. Does use a walker. 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 Conjunctiva normal. HEENT: External appearance of nose and ears normal, oral cavity dry, tracheostomy NECK: JVD not raised; masses not palpable. HEART: Heart sounds regular; edema present LUNGS: Respiratory rate increased; decreased breath sound, ABDOMEN: Soft, distended, nontender, liver spleen not palpable, no masses palpable. PEG tube. PSYCH: Unable to assess, patient lethargic DERMATOLOGICAL: Wound on right ankle lateral malleolus. Under dressing. Stage II coccygeal breakdown. See nursing notes INVESTIGATIONS, reviewed in the clinical context: February 24: WBC 6.2 hemoglobin 7.7 platelets 163 potassium 4.3 BUN 42 creatin ine 3.11 February 15: WBC 13.9 hemoglobin 9.6 platelets 96 potassium 4.4 BUN 59 creatinine 4.21 procalcitonin 2.05 Acute hepatitis screen: Negative Complement C3 78, complement C4 19.6 February 11: Sodium 138 potassium 4.4 creatinine 4.19 Sputum: Stenostrophonas maltophilia, Lynda albicans Computed tomography scan abdomen and pelvis [February 06] 6 mm stone in the right renal collecting system. Some circumferential wall thickening of the cecum and ascending colon. Distention of the rectum 7.5 cm with solid stool. EEG: Evidence of encephalopathy. No obvious epileptiform activity. 2-D echocardiogram: EF 60-65%. Renal ultrasound: Shows bilateral normal cortical medullary thickness. February 01: WBC 17.1 hemoglobin 14.8 UA: Blood large, leukoesterase moderate WBC 28 nitrite negative Lumbar spine CT: Anterior wedge compression deformity of L1. Multiple level DJD. 7 mm calculus right renal pelvis. CT chest without contrast: Right lateral eighth through 10th rib fractures with associated gas trace hemothorax right lower lobe pulmonary contusion/atelectasis. Patchy) disease left upper lobe. WBC 25.8 hemoglobin 14.1 platelets 217 INR greater than 10 sodium 131 potassium 3.9. 24 creatinine 1.8 to EKG tracing personally reviewed by me-atrial flutter. Rate 132 Foot/Lumbar/sacral coccyx: Spondylitic changes. No fracture. Chest x-ray film personally reviewed by me-clinically. Possible hyperinflation Assessment and plan: -Coumadin toxicity. INR greater than 10. On presentation: 10 mg vitamin K in the ER. Hemoptysis on presentation. Coumadin resumed on February 05.. - right lung contusion.-Secondary to fall. hemoptysis on presentation -Pneumonia, secondary to Stenostrophonas maltophilia, Lynda albicans: Slow to respond IV cefepime, IV anidulafungin -Sepsis with positive blood cultures MSSA, likely source right ankle. From January 31. IV cefepime. February 04 blood culture negative -Acute hypoxic respiratory failure multifactorial including pneumonia/COPD. Ventilator assisted: Slow to respond FiO2 50% -Acute hypoxic respiratory failure, multifactorial: ventilator support,: Slow to respond Patient intubated on February 05 -Acute COPD exacerbation, with chronic bronchitis component in a current smoker: Slow to respond DuoNeb. Nebulized Pulmicort. Mucinex. -Chronic nicotine dependence, cigarette smoker Nicotine patch -Paroxysmal atrial flutter,: Back in sinus rhythm Lopressor 50 mg 3 times a day. 2-D echocardiogram unremarkable. Oral amiodarone Coumadin started on February 05 -Possible CK D with possible acute component. creatinine was 0.8 in April 2019. Renal ultrasound unremarkable. UA shows trace protein. IV fluids.. -Acute kidney injury, ATN, likely cardiorenal syndrome.: Not improving Follow with nephrology. Daily Hemodialysis started February 09 -Acute right-sided 8-10 ribs fracture secondary to fall K pad -Diabetes mellitus type 2, chronically on oral hypoglycemic Sliding scale insulin. Increase tube feeding. DC Levemir -Diabetic peripheral neuropathy Decreased dose of Lyrica in the setting of renal failure. 100 mg twice a day -Chronic low back pain: MS Contin 15 mg every 12, [place] 7.5 twice a day when necessary -Anxiety depression not otherwise specified Wellbutrin XL 100 mg twice a day -Hyperlipidemia Lipitor 40 mg daily at bedtime -Right ankle lateral, diabetic wound, stage II acute. Wound culture positive for Streptococcus agalactiae and Staphylococcus aureus. IV Ancef initially. Follow with ID Patient has poor distal pulses. February 01 wound was debrided by Dr. Ibarra. Clean base. -Acute L1 30% wedge fracture secondary to fall LSO brace. Be followed by Dr. Damon -Acute delirium multifactorial. Slow to respond -Acute ileus, NG tube for decompression.; clamped.: Corrected Being followed by surgery. -Possible colitis /fistula on computed tomography scan. IV Flagyl. Cefepime. Followed by surgery -Normocytic anemia, multifactorial. Chronic disease component, hospital- acquired/blood draw and infection. Suspicions hypotensive requiring levo fed will transfuse a unit of blood. IV norepinephrine-discontinued. IV Flagyl,/IV cefepime/IV anidulafungin. Prognosis remains guarded. Dr. Ryan is having a family meeting this afternoon.
[2022-02-24 11:59] LABS: Glucose,Whole Blood 107 mg/dL (70-110)
[2022-02-24] MEDS: bisacodyL 10 MG SUPP RECTAL SCH (12:24)
--- NOTE | 2022-02-24 12:26 | P.PN ---
Subjective Progress Note Date: 02/24/22 The patient is seen at bedside and per his nurses his condition is about the same and no improvement. No sedation for the past 6 days. Upon seeing him not as further episode of tongue sticking out and head movement but has intermittent right facial twitching but per nursing staff he is about the same physically. Objective - Vital Signs Vital signs: Vital Signs Temp 98.7 F 02/24/22 08:00 Pulse 75 02/24/22 11:30 Resp 24 02/24/22 11:30 BP 131/71 02/23/22 12:59 Pulse Ox 100 02/24/22 11:30 FiO2 50 02/24/22 10:41 Intake & Output 02/23/22 02/24/22 02/24/22 18:59 06:59 18:59 Intake Total 0948.820 8638 645 Output Total 3032 48 20 Balance -2010.557 1068 625 Weight 155.5 kg 153 kg Intake: IV 507.5 476 365 0.9% Sodium Chloride @ 175 240 100 10mls/hr Anidulafungin 100 mg In 84 100 Sodium Chloride 0.9% 100 ml @ 84 mls/hr IVPB DAILY [facility] Rx#:[id number] Cefepime 1 gm In Sodium 12.5 100 50 Chloride 0.9% 50 ml @ 12. 5 mls/hr IVPB Q12HR [facility] Rx#:[id number] Pressure bags 36 36 15 levETIRAcetam IV 500 mg 100 In Sodium Chloride 0.9% 100 ml @ 400 mls/hr IVPB DAILY [facility] Rx#:[id number] metroNIDAZOLE-NS PMX 500 100 100 100 mg In Saline 1 100ml.bag @ 100 mls/hr IVPB Q8HR [facility] Rx#:[id number] Intake, IV Titration 2.943 Amount Norepinephrine 32 mg In 2.943 Sodium Chloride 0.9% 218 ml @ 0.05 MCG/KG/MIN 3. 246 mls/hr IV .Q24H [facility] Rx#:[id number] Tube Feeding 420 550 250 Other 90 90 30 Output: Urine 32 48 20 Hemodialysis 3000 Other: Voiding Method Indwelling Catheter Indwelling Catheter ABP, PAP, CO, CI - Last Documented Arterial Blood Pressure 116/53 - Exam GENERAL: The patient is a morbid obese gentleman lying in bed and does not appear in acute distress. LUNG: Trach on ventilator. NEUROLOGICAL: Limited because of his condition. Not on sedation for past 6 days. Higher mental function: The patient is severely drowsy but would open his eye and continues to try to say what with his lips. Not following commands or verbalizing. Has some turnining his head side to side. Cranial nerves: He look toward voice/tracking eye to left and turns his head to left to voice. Has intermittent right facial twitching but not as pronouced as yesterday on my examination. Would have some abnormal tongue movement of stick his tongue and moving side to side. Rest is limited. Motor: The strength is limited but has would lift bilateral uppers above gravity very rarely spontaneously. No movement in lowers. Decrease tone throughout. . Sensation: Unable to assess light touch. - Labs CBC & Chem 7: 02/24/22 05:15 02/24/22 05:15 Labs: Abnormal Lab Results - Last 24 Hours (Table) 02/24/22 02/24/22 02/24/22 Range/Units 05:15 05:15 05:21 RBC 2.62 L (4.30-5.90) m/uL Hgb 7.7 L (13.0-17.5) gm/dL Hct 26.0 L (39.0-53.0) % MCHC 29.8 L (31.0-37.0) g/dL RDW 20.6 H (11.5-15.5) % Lymphocytes # 0.6 L (1.0-4.8) k/uL ABG Total CO2 (19-24) mmol/L ABG O2 Saturation (94-97) % BUN 42 H (9-20) mg/dL Creatinine 3.11 H (0.66-1.25) mg/dL Glucose 109 H (74-99) mg/dL POC Glucose (mg/dL) 118 H (70-110) mg/dL Calcium 7.6 L (8.4-10.2) mg/dL 02/24/22 Range/Units 05:56 RBC (4.30-5.90) m/uL Hgb (13.0-17.5) gm/dL Hct (39.0-53.0) % MCHC (31.0-37.0) g/dL RDW (11.5-15.5) % Lymphocytes # (1.0-4.8) k/uL ABG Total CO2 27 H (19-24) mmol/L ABG O2 Saturation 98.2 H (94-97) % BUN (9-20) mg/dL Creatinine (0.66-1.25) mg/dL Glucose (74-99) mg/dL POC Glucose (mg/dL) (70-110) mg/dL Calcium (8.4-10.2) mg/dL Microbiology - Last 24 Hours (Table) 02/20/22 15:40 Gram Stain - Final Bronchoalviolar Lavage - Right Bronchial Washings Culture - Final Achromobacter xylos SS denit Stenotrophomonas maltophilia Assessment and Plan Assessment: * Right facial intermittent twitching: Possibly due to due to toxic-metabolic abnormalities. Had multiple routine EEG's and was negative for seizure. * Severe Altered mental status due to multifactorial: Metabolic encephalopathy/uremic encephalopathy (getting dialysis) and septicemia from cellulitis of right foot ulcer. Also rule out seizure. Off sedation since 02/18/2022. * Abnormal tongue movement appears Tardive dyskinesia possibly due to metabolic derangement. * Cellulitis with right foot ulcer * Septicemia with staph aureus. * Status post fall with L1 compression fracture * Moderate renal insufficiency on dialysis * Ventilator-dependent respiratory failure, now has tracheostomy. * Coagulopathy * Right sided rib fractures secondary to fall. 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 * Peripheral edema. * Long-standing history of frequent falls, uses walker * COPD * Chronic tobacco use * Diabetes with hemoglobin A1c 8.1 * Probable diabetic peripheral neuropathy. * Peripheral arterial disease Plan: * Repeat CT of the head on 02/23/2022 was reported as no acute intracranial hemorrhage or midline shift. There is mild to moderate diffuse age-related cerebral atrophy and chronic small vessel ischemic changes redemonstrated. Subacute or old left occipital lobe infarct E but redemonstrated. New bilateral mastoid fluid or correlation could reflect acute mastoiditis in appropriate clinical setting, correlate clinically. I personally reviewed the CT and I agree with the report. * Repeat routine EEG on 02/23/2022 is abnormal. The study is limited because of the diffuse myogenic artifact because of his uncontrollable head movement and tongue movement. From the limited study the background severely slow and severely encephalopathic. Otherwise there is no focal slowing, performed discharge procedure on the EEG. * Continue Keppra 500mg once every 12 hours IV with an additional 500mg post dialysis for seizure prophylaxis. * Cannot obtain MRI Brain since has ventilator. * I.D. is on obard. * Pleas avoid any antidopamergic drugs. * Will defer the rest of medical management to the primary and ICU team. * The patient condition is critical and his quality of life is poor. The plan is discussed with patient's sister, girlfriend and nephew (who are at bedside). Plan is discussed with ICU team. Chava Jackson M.D. Neuro-Hospitalist. Time with Patient: Less than 30
--- NOTE | 2022-02-24 13:43 | P.PN ---
Subjective Progress Note Date: 02/24/22 Principal diagnosis: Multiple right-sided rib fractures and a right sided pulmonary contusion with compression fractures of lumbar spine This is a extremely debilitated 61-year-old male patient who is known to monitor milligrams and comorbidities and I was asked to evaluate this patient because of a fall and limited hemoptysis. The patient is known to have a combination of i ssues including diabetes mellitus and diabetic peripheral neuropathy and the patient has had previous episodes of falls and he has issues with chronic atrial flutter maintained on long-term anticoagulation with warfarin. He is morbidly obese. He has hypertension and hyperlipidemia as comorbid conditions along with chronic kidney disease. He is morbidly obese. He has history of COPD and is a chronic smoker. He comes in to the hospital after he had a fall at home. He was the bathroom and he slept and he landed on his left chest. Here in the hospital, the patient was found to be Coumadin toxic and his INR was above 10. He did have some limited hemoptysis and coffee-ground emesis without any melanotic stools. No abdominal pain. He was noted to have a large ulcer over the right ankle/malleolus area which is a chronic wound. Immediately the patient was given vitamin K. This computed tomography scan of the chest shows some right lateral eighth through 10th rib fractures with trace amount of right- sided pleural effusion and right basilar atelectasis related to underlying pulmonary contusion. No evidence of any pneumothorax. Some limited patchy airspace disease in the left upper lobe probably inflammatory in the same time the patient had dilated pulmonary arteries indicating possibility of pulmonary hypertension and a fluid and gas-filled distended stomach. I noted the patient has not had a CAT scan of the brain and a CAT scan was done that showed no acute intracranial process. There was a remote left occipital lobe injury along with some nonspecific white matter changes secondary to chronic microangiopathy. This computed tomography scan of the lumbar spine showed acute anterior wedge compression deformity of L1 vertebral body with a 30% loss in height along with multilevel degenerative disc changes and a 7 mm In the right pelvis. Patient was already seen by general surgery and orthopedic surgery. Lumbar spine x-ray that was done on 2021 showed no acute fracture. The patient was also seen by vascular surgery for a right lateral foot wound and this is a stage II wound 8.5 x 4 cm in size. Debridement was done by vascular surgery. 02/22/2022, neurologically unchanged and the patient remains off sedation and is not following any commands. He is essentially the same as yesterday. He does movements and these are essentially nonpurposeful movements. I have asked neurology to reevaluate the patient for any further input. Meanwhile, he remains on a mechanical ventilator. The right lung is essentially opacified with a pleural effusion and atelectasis. I performed a bronchoscopy and remove mucous plug from the right lung. This caused some limited improvement. For the most part, the right lung is still opacified. He remains on assist control mode of mechanical ventilation at the rate of 24, tidal volume of 500, FiO2 of 60% and a PEEP of 8. Blood gases from today showed a pH of 7.37 with a pCO2 of 45 and pO2 of 75. The patient's condition essentially unchanged. He is hemodynamically stable. His still on minimal doses of pressors which is being weaned off and currently is on norepinephrine at 0.02 mcg/kg per minute.. He is afebrile and the repeat cultures from the bronchioloalveolar lavage of the right lung showed no microbial growth. Hemoglobin today is at 6.9. No signs of any active bleeding. Last hemodialysis session was yesterday and no plans for dialysis today. He is having bowel movement activity. She'll feeds were restarted and the patient is on vital high protein at the rate of 25. His rest of the blood work shows a white cell count of 8 with a hemoglobin of 6.9 and platelet count of 161. Sodium is 141 BUN is a 39 and a creatinine of 3.11. 02/23/2022, patient remains in the ICU, intubated, mechanically ventilated, not following any instructions or any commands. Patient opens eyes, but no responses whatsoever. He grimaces to painful stimuli only. He is on assist control rate of 24 to volume 500 FiO2 60% PEEP of 12. ABG showed a pO2 of 108 pCO2 42 pH of 7.39, hence his FiO2 was cut down from 60% to 50%. Patient is still requiring norepinephrine at 0.01 mcg/kg/m however his blood pressure was noted to be stable enough this morning and I recommended stopping norepinephrine. Remains on IV fluids at KVO, and he is on enteral feeding receiving vital Hb at 25 mL per hour which is his goal. Patient is still getting hemodialysis. Chest x-ray continues to show opacification of the right lung, ultrasound showed small pleural effusion does not correlate with the finding on the chest x-ray, and I am not planning thoracentesis since it is quite risky considering his body size. Not to mention the fluid is not large enough to be drained. Labs were reviewed that he set his 8 hemoglobin is 8.4 electrolytes are normal BUN is 46 creatinine 3.38. Pro-calcitonin remains a bit high at 1.38 blood sugar is 82 this morning. C-reactive protein is 5.6 Reevaluated today on 02/24/2022, remains in the ICU, intubated and mechanically ventilated. Patient is on assist control rate of 24 tidal volume 500 FiO2 50% PEEP of 12 ABG showed a pO2 of 99 pCO2 42 pH of 7.39 hence no changes were made in the ventilator settings. Patient has been off propofol now for the last 6 days and his mental status is not showing any improvement. Patient remains obtunded, not arousable not following any instructions, remains on cefepime, and her access, Flagyl, he is also on eliquis, is receiving vital HPI at 40 mL per hour. EEG yesterday showed severe encephalopathy no seizure activity. Today I had a chance to discuss his overall status with sister and girlfriend and recommended comfort care measures since the situation is seems to be hopeless. And the prognosis is extremely poor. Both seem reasonable, and they will think about it. They will let me know if they decide to proceed with comfort care measures. CBC is unremarkable hemoglobin is 7.7, no evidence of active bleeding. Basic metabolic profile is normal BUN is 42 creatinine 3.11 patient is on hemodialysis. Chest x-ray today showed improvement in his opacification of the right lung, did not require thoracentesis and did not require repeat bronchoscopy. Objective - Vital Signs Vital signs: Vital Signs Temp 98.2 F 02/24/22 12:00 Pulse 67 02/24/22 13:00 Resp 24 02/24/22 13:00 BP 131/71 02/23/22 12:59 Pulse Ox 100 02/24/22 13:00 FiO2 50 02/24/22 12:00 Intake & Output 02/23/22 02/24/22 02/24/22 18:59 06:59 18:59 Intake Total 1068.524 8720 811 Output Total 3032 48 20 Balance -2011.557 1068 791 Weight 155.5 kg 153 kg Intake: IV 507.5 476 411 0.9% Sodium Chloride @ 175 240 140 10mls/hr Anidulafungin 100 mg In 84 100 Sodium Chloride 0.9% 100 ml @ 84 mls/hr IVPB DAILY [facility] Rx#:[id number] Cefepime 1 gm In Sodium 12.5 100 50 Chloride 0.9% 50 ml @ 12. 5 mls/hr IVPB Q12HR [facility] Rx#:[id number] Pressure bags 36 36 21 levETIRAcetam IV 500 mg 100 In Sodium Chloride 0.9% 100 ml @ 400 mls/hr IVPB DAILY [facility] Rx#:[id number] metroNIDAZOLE-NS PMX 500 100 100 100 mg In Saline 1 100ml.bag @ 100 mls/hr IVPB Q8HR [facility] Rx#:[id number] Intake, IV Titration 2.943 Amount Norepinephrine 32 mg In 2.943 Sodium Chloride 0.9% 218 ml @ 0.05 MCG/KG/MIN 3. 246 mls/hr IV .Q24H [facility] Rx#:[id number] Tube Feeding 420 550 370 Other 90 90 30 Output: Urine 32 48 20 Hemodialysis 3000 Other: Voiding Method Indwelling Catheter Indwelling Catheter Indwelling Catheter ABP, PAP, CO, CI - Last Documented Arterial Blood Pressure 111/49 - Exam GENERAL: Revealed a 61-year-old white male, intubated, mechanically ventilated, noted to have repetitive movement of head and tongue. Head atraumatic, normocephalic. Tracheostomy is intact EYES: Pupils equal. Conjunctiva normal. HEENT: External appearance of nose and ears normal, oral cavity grossly normal. NECK: JVD not raised; masses not palpable. HEART: Irregular irregular rhythm, normal S1 and S2, no S3 gallop, no murmur. LUNGS: Symmetrical chest expansion crackles at the bases diminished breath sounds on the right side ABDOMEN: Soft, distended, no megaly no rebound no guarding PSYCH: Could not assess patient remains obtunded Extremities: Bipedal edema noted. DERMATOLOGICAL: Large wound around the lateral malleolus right foot Gangrene Changes, wrapped with sterile dressing. Patient also has deep tissue injury to his coccyx/buttocks area MUSCULOSKELETAL:No Clubbing/cyanosis;muscles-grossly intact, NEUROLOGICAL: Patient is obtunded, opens eyes, does not follow any instructions, and grimaces to painful stimuli. Repetitive movement of head and tongue noted. - Labs CBC & Chem 7: 02/24/22 05:15 02/24/22 05:15 Labs: Abnormal Lab Results - Last 24 Hours (Table) 02/24/22 02/24/22 02/24/22 Range/Units 05:15 05:15 05:21 RBC 2.62 L (4.30-5.90) m/uL Hgb 7.7 L (13.0-17.5) gm/dL Hct 26.0 L (39.0-53.0) % MCHC 29.8 L (31.0-37.0) g/dL RDW 20.6 H (11.5-15.5) % Lymphocytes # 0.6 L (1.0-4.8) k/uL ABG Total CO2 (19-24) mmol/L ABG O2 Saturation (94-97) % BUN 42 H (9-20) mg/dL Creatinine 3.11 H (0.66-1.25) mg/dL Glucose 109 H (74-99) mg/dL POC Glucose (mg/dL) 118 H (70-110) mg/dL Calcium 7.6 L (8.4-10.2) mg/dL 02/24/22 Range/Units 05:56 RBC (4.30-5.90) m/uL Hgb (13.0-17.5) gm/dL Hct (39.0-53.0) % MCHC (31.0-37.0) g/dL RDW (11.5-15.5) % Lymphocytes # (1.0-4.8) k/uL ABG Total CO2 27 H (19-24) mmol/L ABG O2 Saturation 98.2 H (94-97) % BUN (9-20) mg/dL Creatinine (0.66-1.25) mg/dL Glucose (74-99) mg/dL POC Glucose (mg/dL) (70-110) mg/dL Calcium (8.4-10.2) mg/dL Microbiology - Last 24 Hours (Table) 02/20/22 15:40 Gram Stain - Final Bronchoalviolar Lavage - Right Bronchial Washings Culture - Final Achromobacter xylos SS denit Stenotrophomonas maltophilia Assessment and Plan Assessment: Impression: Acute hypercapnic respiratory failure, intubated on underwent tracheostomy on 02/17 Status post tracheostomy on 02/17, patient was a failure to wean. Remains a failure to wean Acute metabolic encephalopathy Right sided rib fractures, traumatic, secondary to fall, Right sided pulmonary contusion. Anterior wedge compression fracture of L1 Hemoptysis secondary to contusion and exacerbated by Coumadin coagulopathy Underlying COPD and chronic smoking Coumadin toxicity with INR above 10 on admission, recovered History of frequent falls. Metabolic encephalopathy, acute, being addressed by neurology on the case. Chronic atrial fibrillation. Acute on Chronic kidney disease stage III. Stage II right ankle wound requiring debridement and positive for MSSA/staph aureus and strep agalactiae Positive bacteremia, however his blood cultures have been negative from 02/04 and 02/05. Diabetic peripheral neuropathy History of Nephrolithiasis Nonspecific colitis Perianal fistula Recommendation: Continue ventilatory support, and tracheostomy care. Patient is still unable to wean. Continue to hold sedation. Off propofol for the last 6 days Continue antibiotics, as per ID on the case. Continue IV fluid at KVO Continue hemodynamic monitoring, patient is off norepinephrine Nutritional support/enteral feeding, Continue GI and DVT prophylaxis Continue Eraxis Continue eliquis Continue bronchodilators Continue Keppra Continue Flagyl Continue metoprolol Continue amiodarone. Continue Levemir insulin 14 units at bedtime and sliding scale coverage Critical care time is over 30 minutes Updated his family members at bedside on his condition discussed different options including comfort care measures and terminal weaning, sister and girlfriend are inclined to consider this out but they will discuss it among themselves prior. Strongly recommend comfort care measures on this patient We will continue to follow. Time with Patient: Greater than 30
[2022-02-24 17:46] LABS: Glucose,Whole Blood 112 mg/dL (70-110)
[2022-02-24] MEDS: NOREPINEPHRINE 32 MG in SODIUM CHLORIDE 0.9% 218 ML IV SCH (21:55)
[2022-02-24 23:41] LABS: Glucose,Whole Blood 140 mg/dL (70-110)
[2022-02-25] MEDS: INSULIN ASPART (NovoLOG) 100 UNIT/ML VIAL SQ SCH ×5 (00:03→23:38)
[2022-02-25] MEDS: metroNIDAZOLE-NS PMX 500 MG in SALINE 1 100ML.BAG IVPB SCH ×4 (00:04→23:39)
[2022-02-25] MEDS: levETIRAcetam IV 500 MG in SODIUM CHLORIDE 0.9% 100 ML IVPB SCH ×4 (00:04→20:16)
[2022-02-25 05:49] LABS: ABG Base Excess -0.6 mmol/L; ABG HCO3 25 mmol/L (21-25); ABG Oxygen Saturation 98.4 % (94-97); ABG PCO2 45 mmHg (35-45); ABG PH 7.35 (7.35-7.45); ABG PO2 108 mmHg (83-108); ABG TCO2 26 mmol/L (19-24); Allen Test Performed? Yes
[2022-02-25 06:07] LABS: Glucose,Whole Blood 147 mg/dL (70-110)
[2022-02-25 07:17] LABS: Calcium 7.5 mg/dL (8.4-10.2); Potassium 4.2 mmol/L (3.5-5.1)
[2022-02-25] MEDS: BUDESONIDE 1 MG/2 ML NEBU INHALATION SCH ×2 (07:20→20:02)
[2022-02-25] MEDS: IPRATROPIUM-ALBUTEROL 3 ML NEB INHALATION SCH ×4 (07:20→20:02)
[2022-02-25] MEDS: CHLORHEXIDINE GLUCONATE 15 ML CUP MUCOUS MEM SCH ×2 (07:58→20:03)
[2022-02-25] MEDS: ANIDULAFUNGIN 100 MG in SODIUM CHLORIDE 0.9% 100 ML IVPB SCH (07:58)
[2022-02-25] MEDS: LACTULOSE 20 GM/30 ML CUP PO SCH (07:58)
[2022-02-25] MEDS: AMIODARONE 200 MG TAB PO SCH ×2 (07:59→20:03)
[2022-02-25] MEDS: PANTOPRAZOLE 40 MG/10 ML VIAL IVP SCH ×2 (07:59→20:02)
[2022-02-25] MEDS: METOPROLOL TARTRATE 25 MG TAB PO SCH ×2 (07:59→20:03)
[2022-02-25] MEDS: APIXABAN 2.5 MG TABLET PO SCH ×2 (07:59→20:03)
[2022-02-25] MEDS: MIDODRINE 5 MG TAB PO SCH ×3 (07:59→18:05)
[2022-02-25] MEDS: PREGABALIN 100 MG CAP PO SCH ×2 (07:59→20:03)
[2022-02-25] MEDS: CALCIUM ACETATE 667 MG TAB PO SCH ×3 (08:00→18:05)
[2022-02-25] MEDS: COLLAGENASE 250 UNIT/GM OINTMENT 30 GM TUBE TOPICAL SCH (08:00)
[2022-02-25] MEDS: CEFEPIME 1 GM in SODIUM CHLORIDE 0.9% 50 ML IVPB SCH ×2 (08:00→20:03)
--- NOTE | 2022-02-25 08:44 | XR ---
EXAMINATION TYPE: XR chest 1V portable DATE OF EXAM: 02/25/2022 COMPARISON: 02/24/2022 HISTORY: Shortness of breath TECHNIQUE: Single frontal view of the chest is obtained. FINDINGS: Right-sided central line and tracheostomy tube stable. Patient rotated the bilateral conso lidation pleural effusion unchanged. Heart size enlarged. No new thorax. IMPRESSION: Stable bilateral infiltrates and pleural effusion correlate for pneumonia.
[2022-02-25 08:45] LABS: Anisocytosis Slight; Basophils # (A) 0.1 k/uL (0-0.2); Basophils % (A) 1 %; Eosinophils # (A) 0.4 k/uL (0-0.7); Eosinophils % (A) 6 %; HCT 27.1 % (39.0-53.0); HGB 7.8 gm/dL (13.0-17.5); Hypochromasia Marked; Lymphocytes # (A) 0.6 k/uL (1.0-4.8); Lymphocytes % (A) 10 %; MCH 29.5 pg (25.0-35.0); MCHC 28.9 g/dL (31.0-37.0); MCV 101.8 fL (80.0-100.0); Macrocytosis Marked; Mean Platelet Volume 13.2; Monocytes # (A) 0.4 k/uL (0-1.0); Monocytes % (A) 6 %; Neutrophils # (A) 4.6 k/uL (1.3-7.7); Neutrophils % (A) 74 %; Platelet Count 139 k/uL (150-450); RBC 2.66 m/uL (4.30-5.90); RDW 19.6 % (11.5-15.5); WBC 6.2 k/uL (3.8-10.6)
[2022-02-25] MEDS ORDERED: FUROSEMIDE 10 MG/ML 10 ML VIAL IV STA (09:23)
--- NOTE | 2022-02-25 09:24 | P.PN ---
Subjective Patient is seen in follow-up for acute kidney injury. Started on hemodialysis 02/09/2022. On low-dose Levophed again. Receiving tube feeds. No changes overnight. Vital signs are stable. On low-dose Levophed. General: Resting in bed. HEENT: Tracheostomy noted. LUNGS: Breath sounds decreased. HEART: Rate and Rhythm are regular. ABDOMEN: Soft, no distention. EXTREMITITES: 2+ edema. Scrotal edema noted. Objective - Vital Signs Vital signs: Vital Signs Temp 98.3 F 02/25/22 04:00 Pulse 94 02/25/22 07:39 Resp 24 02/25/22 07:00 BP 131/71 02/23/22 12:59 Pulse Ox 100 02/25/22 07:00 FiO2 50 02/25/22 07:15 Intake & Output 02/24/22 02/25/22 02/25/22 18:59 06:59 18:59 Intake Total 1386 445.718 23 Output Total 40 55 0 Balance 1346 390.718 23 Weight 153.2 kg Intake: IV 626 276 23 0.9% Sodium Chloride @ 240 240 20 10mls/hr Anidulafungin 100 mg In 100 Sodium Chloride 0.9% 100 ml @ 84 mls/hr IVPB DAILY [facility] Rx#:[id number] Cefepime 1 gm In Sodium 50 Chloride 0.9% 50 ml @ 12. 5 mls/hr IVPB Q12HR [facility] Rx#:[id number] Pressure bags 36 36 3 metroNIDAZOLE-NS PMX 500 200 mg In Saline 1 100ml.bag @ 100 mls/hr IVPB Q8HR [facility] Rx#:[id number] Intake, IV Titration 19.718 0 Amount Norepinephrine 32 mg In 19.718 0 Sodium Chloride 0.9% 218 ml @ 0.05 MCG/KG/MIN 3. 246 mls/hr IV .Q24H [facility] Rx#:[id number] Oral 30 Tube Feeding 670 60 Other 90 60 Output: Urine 40 55 0 Other: Voiding Method Indwelling Catheter Indwelling Catheter # Bowel Movements 1 1 ABP, PAP, CO, CI - Last Documented Arterial Blood Pressure 106/32 - Labs CBC & Chem 7: 02/25/22 04:13 02/25/22 06:31 Labs: Abnormal Lab Results - Last 24 Hours (Table) 02/24/22 02/24/22 02/25/22 Range/Units 17:45 23:40 04:13 RBC 2.66 L (4.30-5.90) m/uL Hgb 7.8 L (13.0-17.5) gm/dL Hct 27.1 L (39.0-53.0) % MCV 101.8 H (80.0-100.0) fL MCHC 28.9 L (31.0-37.0) g/dL RDW 19.6 H (11.5-15.5) % Macrocytosis Marked A ABG Total CO2 (19-24) mmol/L ABG O2 Saturation (94-97) % BUN (9-20) mg/dL Creatinine (0.66-1.25) mg/dL Glucose (74-99) mg/dL POC Glucose (mg/dL) 112 H 140 H (70-110) mg/dL Calcium (8.4-10.2) mg/dL 02/25/22 02/25/22 02/25/22 Range/Units 05:44 06:06 06:31 RBC (4.30-5.90) m/uL Hgb (13.0-17.5) gm/dL Hct (39.0-53.0) % MCV (80.0-100.0) fL MCHC (31.0-37.0) g/dL RDW (11.5-15.5) % Macrocytosis ABG Total CO2 26 H (19-24) mmol/L ABG O2 Saturation 98.4 H (94-97) % BUN 41 H (9-20) mg/dL Creatinine 3.07 H (0.66-1.25) mg/dL Glucose 156 H (74-99) mg/dL POC Glucose (mg/dL) 147 H (70-110) mg/dL Calcium 7.5 L (8.4-10.2) mg/dL Microbiology - Last 24 Hours (Table) 02/20/22 15:40 Gram Stain - Final Bronchoalviolar Lavage - Right Bronchial Washings Culture - Final Achromobacter xylos SS denit Stenotrophomonas maltophilia Assessment and Plan Plan: Assessment: 1. Acute kidney injury secondary to ATN secondary to septic shock. Started on hemodialysis 02/09/2022. Oliguric. Creatinine in April 2019 was 0.8. Creatinine was as low as 1.62 this admission. No hydronephrosis noted on CAT scan. 2. MSSA bacteremia with likely source being right foot ulcer. Also component of pneumonia. ID following. On antibiotics. Also on antifungal. 3. A. fib. Cardiology following. On amiodarone and beta donovan. 4. Metabolic acidosis secondary to acute kidney injury. Stable. 5. Diabetes mellitus. 6. Hyperphosphatemia secondary to acute kidney injury. on PhosLo. 7. Volume overload. Improved with ultrafiltration. Still quite edematous. Status post bronchoscopy 02/20/2022 with removal of mucous plugs and bronch ioloalveolar lavage. 8. Anemia. Iron replete. On Aranesp. Hemoglobin 7.8 today. No active bleed ing. Plan: Hemodialysis today and continue with daily treatments this week mostly for volume overload. Stopped Demadex as patient has no urine output. 80 mg IV Lasix once today. Maintain tube feeds. Wean FiO2 and vasopressors. Maintain midodrine. Hold for systolic blood pressure greater than 115. Continue to monitor for renal recovery. Serologies negative except C3 slightly low.
--- NOTE | 2022-02-25 11:25 | P.PN ---
Subjective Progress Note Date: 02/24/22 Principal diagnosis: Right foot infected pressure ulcer and bacteremia Patient is a 61-year-old male presented to the hospital for evaluation of fall patient also noticed to have a wound on the right lateral foot with some necrotic edges which has been debridement by vascular surgery on 01/31/2022.Patient has been transthoracic because of significant mental status changes, The patient ended up getting intubated, the patient also have worsening of the kidney function requiring dialysis catheter placement and has been started on dialysis as of 02/09/2022, the patient did have a PEG tube placement on 02/12/2022 , The patient is s/p tracheostomy completed on 02/17/2022, the patient is status post bronchoscopy completed on 02/20/2022 On today's evaluation that is 02/24/2022 the, the patient continues to be afebrile, the patient FiO2 is currently stable at 50% no significant purulent secretions through the ET diarrhea or any other changes reported by the nursing staff Objective - Vital Signs Vital signs: Vital Signs Temp 98.7 F 02/24/22 08:00 Pulse 75 02/24/22 11:30 Resp 24 02/24/22 11:30 BP 131/71 02/23/22 12:59 Pulse Ox 100 02/24/22 11:30 FiO2 50 02/24/22 10:41 Intake & Output 02/23/22 02/24/22 02/24/22 18:59 06:59 18:59 Intake Total 8004.175 7288 645 Output Total 3032 48 20 Balance - 1068 625 Weight 155.5 kg 153 kg Intake: IV 507.5 476 365 0.9% Sodium Chloride @ 175 240 100 10mls/hr Anidulafungin 100 mg In 84 100 Sodium Chloride 0.9% 100 ml @ 84 mls/hr IVPB DAILY [facility] Rx#:[id number] Cefepime 1 gm In Sodium 12.5 100 50 Chloride 0.9% 50 ml @ 12. 5 mls/hr IVPB Q12HR [facility] Rx#:[id number] Pressure bags 36 36 15 levETIRAcetam IV 500 mg 100 In Sodium Chloride 0.9% 100 ml @ 400 mls/hr IVPB DAILY [facility] Rx#:[id number] metroNIDAZOLE-NS PMX 500 100 100 100 mg In Saline 1 100ml.bag @ 100 mls/hr IVPB Q8HR [facility] Rx#:[id number] Intake, IV Titration 2.943 Amount Norepinephrine 32 mg In 2.943 Sodium Chloride 0.9% 218 ml @ 0.05 MCG/KG/MIN 3. 246 mls/hr IV .Q24H [facility] Rx#:[id number] Tube Feeding 420 550 250 Other 90 90 30 Output: Urine 32 48 20 Hemodialysis 3000 Other: Voiding Method Indwelling Catheter Indwelling Catheter Indwelling Catheter ABP, PAP, CO, CI - Last Documented Arterial Blood Pressure 116/53 - Exam GENERAL DESCRIPTION: Middle-aged male intubated Through the trach LUNGS: Unlabored breathing. Decreased breath sound at the base HEART: S1, S2, regular rate and rhythm. ABDOMEN: Soft, no tenderness , guarding or rigidity, no organomegaly EXTREMITIES: Right foot wound is currently dressed no drainage on the dressing - Labs CBC & Chem 7: 02/25/22 04:13 02/25/22 06:31 Labs: Abnormal Lab Results - Last 24 Hours (Table) 02/24/22 02/24/22 02/24/22 Range/Units 05:15 05:15 05:21 RBC 2.62 L (4.30-5.90) m/uL Hgb 7.7 L (13.0-17.5) gm/dL Hct 26.0 L (39.0-53.0) % MCHC 29.8 L (31.0-37.0) g/dL RDW 20.6 H (11.5-15.5) % Lymphocytes # 0.6 L (1.0-4.8) k/uL ABG Total CO2 (19-24) mmol/L ABG O2 Saturation (94-97) % BUN 42 H (9-20) mg/dL Creatinine 3.11 H (0.66-1.25) mg/dL Glucose 109 H (74-99) mg/dL POC Glucose (mg/dL) 118 H (70-110) mg/dL Calcium 7.6 L (8.4-10.2) mg/dL 02/24/22 Range/Units 05:56 RBC (4.30-5.90) m/uL Hgb (13.0-17.5) gm/dL Hct (39.0-53.0) % MCHC (31.0-37.0) g/dL RDW (11.5-15.5) % Lymphocytes # (1.0-4.8) k/uL ABG Total CO2 27 H (19-24) mmol/L ABG O2 Saturation 98.2 H (94-97) % BUN (9-20) mg/dL Creatinine (0.66-1.25) mg/dL Glucose (74-99) mg/dL POC Glucose (mg/dL) (70-110) mg/dL Calcium (8.4-10.2) mg/dL Microbiology - Last 24 Hours (Table) 02/20/22 15:40 Gram Stain - Final Bronchoalviolar Lavage - Right Bronchial Washings Culture - Final Achromobacter xylos SS denit Stenotrophomonas maltophilia Assessment and Plan (1) Cellulitis Current Visit: Yes Status: Acute Code(s): L03.90 - CELLULITIS, UNSPECIFIED SNOMED Code(s): 440894508 Plan: 1patient with right foot unstageable pressure ulcer with surrounding necrotic area and cellulitis On admission,x-rays do not show any bony changes likely from gram-positive skin caleb and less likely gram-negative pathogen, patient is status post vascular surgery evaluation and debridement and deep cultureWhich has been finalized with strep and MSSA. 2-patient with MSSA bacteremia source is likely right foot infected pressure ulcer, Repeat blood culture has been negative 3Patient did have significant abnormality seen on the CT obtained by surgery with concern for possible fecal impaction and some inflammation of the colon and possible fistula which has been ruled out by general surgery. 4- patient sputum from 02/05/2022 has been finalized with stenotrophomonas sensitive to Fortaz and sputum with Lynda albicans concern for component of oropharyngeal candidiasis, 5-Patient did have a stage II pressure ulcer to the sacral area with no cellulitis local wound care with a dry Aquacel silver dressing. 64the patient bronchoscopy sample culture came back positive with stenotrophomonas that is resistant to Fortaz, also growing Achromobacter which is sensitive to Fortaz and should be covered with cefepime unfortunately were not able to add Levaquin as the patient is on amiodarone and with his kidney function the Bactrim DS may not be a good idea either keeping in mind the patient is afebrile and his white count is normal we will continue cefepime and monitor clinical course closely overall prognosis remains to be guarded Time with Patient: Less than 30
[2022-02-25 11:33] LABS: Glucose,Whole Blood 141 mg/dL (70-110)
--- NOTE | 2022-02-25 14:05 | P.PN ---
Subjective Progress Note Date: 02/25/22 Principal diagnosis: Multiple right-sided rib fractures and a right sided pulmonary contusion with compression fractures of lumbar spine This is a extremely debilitated 61-year-old male patient who is known to monitor milligrams and comorbidities and I was asked to evaluate this patient because of a fall and limited hemoptysis. The patient is known to have a combination of i ssues including diabetes mellitus and diabetic peripheral neuropathy and the patient has had previous episodes of falls and he has issues with chronic atrial flutter maintained on long-term anticoagulation with warfarin. He is morbidly obese. He has hypertension and hyperlipidemia as comorbid conditions along with chronic kidney disease. He is morbidly obese. He has history of COPD and is a chronic smoker. He comes in to the hospital after he had a fall at home. He was the bathroom and he slept and he landed on his left chest. Here in the hospital, the patient was found to be Coumadin toxic and his INR was above 10. He did have some limited hemoptysis and coffee-ground emesis without any melanotic stools. No abdominal pain. He was noted to have a large ulcer over the right ankle/malleolus area which is a chronic wound. Immediately the patient was given vitamin K. This computed tomography scan of the chest shows some right lateral eighth through 10th rib fractures with trace amount of right- sided pleural effusion and right basilar atelectasis related to underlying pulmonary contusion. No evidence of any pneumothorax. Some limited patchy airspace disease in the left upper lobe probably inflammatory in the same time the patient had dilated pulmonary arteries indicating possibility of pulmonary hypertension and a fluid and gas-filled distended stomach. I noted the patient has not had a CAT scan of the brain and a CAT scan was done that showed no acute intracranial process. There was a remote left occipital lobe injury along with some nonspecific white matter changes secondary to chronic microangiopathy. This computed tomography scan of the lumbar spine showed acute anterior wedge compression deformity of L1 vertebral body with a 30% loss in height along with multilevel degenerative disc changes and a 7 mm In the right pelvis. Patient was already seen by general surgery and orthopedic surgery. Lumbar spine x-ray that was done on 2021 showed no acute fracture. The patient was also seen by vascular surgery for a right lateral foot wound and this is a stage II wound 8.5 x 4 cm in size. Debridement was done by vascular surgery. 02/22/2022, neurologically unchanged and the patient remains off sedation and is not following any commands. He is essentially the same as yesterday. He does movements and these are essentially nonpurposeful movements. I have asked neurology to reevaluate the patient for any further input. Meanwhile, he remains on a mechanical ventilator. The right lung is essentially opacified with a pleural effusion and atelectasis. I performed a bronchoscopy and remove mucous plug from the right lung. This caused some limited improvement. For the most part, the right lung is still opacified. He remains on assist control mode of mechanical ventilation at the rate of 24, tidal volume of 500, FiO2 of 60% and a PEEP of 8. Blood gases from today showed a pH of 7.37 with a pCO2 of 45 and pO2 of 75. The patient's condition essentially unchanged. He is hemodynamically stable. His still on minimal doses of pressors which is being weaned off and currently is on norepinephrine at 0.02 mcg/kg per minute.. He is afebrile and the repeat cultures from the bronchioloalveolar lavage of the right lung showed no microbial growth. Hemoglobin today is at 6.9. No signs of any active bleeding. Last hemodialysis session was yesterday and no plans for dialysis today. He is having bowel movement activity. She'll feeds were restarted and the patient is on vital high protein at the rate of 25. His rest of the blood work shows a white cell count of 8 with a hemoglobin of 6.9 and platelet count of 161. Sodium is 141 BUN is a 39 and a creatinine of 3.11. 02/23/2022, patient remains in the ICU, intubated, mechanically ventilated, not following any instructions or any commands. Patient opens eyes, but no responses whatsoever. He grimaces to painful stimuli only. He is on assist control rate of 24 to volume 500 FiO2 60% PEEP of 12. ABG showed a pO2 of 108 pCO2 42 pH of 7.39, hence his FiO2 was cut down from 60% to 50%. Patient is still requiring norepinephrine at 0.01 mcg/kg/m however his blood pressure was noted to be stable enough this morning and I recommended stopping norepinephrine. Remains on IV fluids at KVO, and he is on enteral feeding receiving vital Hb at 25 mL per hour which is his goal. Patient is still getting hemodialysis. Chest x-ray continues to show opacification of the right lung, ultrasound showed small pleural effusion does not correlate with the finding on the chest x-ray, and I am not planning thoracentesis since it is quite risky considering his body size. Not to mention the fluid is not large enough to be drained. Labs were reviewed that he set his 8 hemoglobin is 8.4 electrolytes are normal BUN is 46 creatinine 3.38. Pro-calcitonin remains a bit high at 1.38 blood sugar is 82 this morning. C-reactive protein is 5.6 Reevaluated today on 02/24/2022, remains in the ICU, intubated and mechanically ventilated. Patient is on assist control rate of 24 tidal volume 500 FiO2 50% PEEP of 12 ABG showed a pO2 of 99 pCO2 42 pH of 7.39 hence no changes were made in the ventilator settings. Patient has been off propofol now for the last 6 days and his mental status is not showing any improvement. Patient remains obtunded, not arousable not following any instructions, remains on cefepime, and her access, Flagyl, he is also on eliquis, is receiving vital HPI at 40 mL per hour. EEG yesterday showed severe encephalopathy no seizure activity. Today I had a chance to discuss his overall status with sister and girlfriend and recommended comfort care measures since the situation is seems to be hopeless. And the prognosis is extremely poor. Both seem reasonable, and they will think about it. They will let me know if they decide to proceed with comfort care measures. CBC is unremarkable hemoglobin is 7.7, no evidence of active bleeding. Basic metabolic profile is normal BUN is 42 creatinine 3.11 patient is on hemodialysis. Chest x-ray today showed improvement in his opacification of the right lung, did not require thoracentesis and did not require repeat bronchoscopy. reevaluated today on 02/25/22, patient remains in the ICU, intubated and mechan ically ventilated. He is on assist control rate of 24th of volume 500 FiO2 50% and PEEP of 12. ABG showed a pO2 of 108 pCO2 45 pH of 7.35. Patient is still requiring norepinephrine at 0.02 micrograms per kilo per minute, is also on IV fluid at KVO, remains on vital a PE at 70 mL per hour. Patient is not requiring any sedation, patient is on cefepime, Eraxis, eliquis, today after reviewing his ABG, recommended cutting down the PEEP down to 8.WBC count is 6.2 hemoglobin is 7.8.basic metabolic profile is unremarkable, BUN is 41 and creatinine 3.07, chest x-ray continues to show bilateral airspace disease, but the opacification of the right lung is significantly improved Objective - Vital Signs Vital signs: Vital Signs Temp 98.6 F 02/25/22 12:00 Pulse 96 02/25/22 12:00 Resp 24 02/25/22 12:00 BP 124/61 02/25/22 12:00 Pulse Ox 100 02/25/22 12:00 FiO2 50 02/25/22 12:00 Intake & Output 02/24/22 02/25/22 02/25/22 18:59 06:59 18:59 Intake Total 1386 445.718 652 Output Total 40 55 25 Balance 1346 390.718 627 Weight 153.2 kg Intake: IV 626 276 342 0.9% Sodium Chloride @ 240 240 80 10mls/hr Anidulafungin 100 mg In 100 100 Sodium Chloride 0.9% 100 ml @ 84 mls/hr IVPB DAILY [facility] Rx#:[id number] Cefepime 1 gm In Sodium 50 50 Chloride 0.9% 50 ml @ 12. 5 mls/hr IVPB Q12HR [facility] Rx#:[id number] Pressure bags 36 36 12 metroNIDAZOLE-NS PMX 500 200 100 mg In Saline 1 100ml.bag @ 100 mls/hr IVPB Q8HR [facility] Rx#:[id number] Intake, IV Titration 19.718 100 Amount Norepinephrine 32 mg In 19.718 0 Sodium Chloride 0.9% 218 ml @ 0.05 MCG/KG/MIN 3. 246 mls/hr IV .Q24H [facility] Rx#:[id number] levETIRAcetam IV 500 mg 100 In Sodium Chloride 0.9% 100 ml @ 400 mls/hr IVPB 1400 [facility] Rx#:[id number] Oral 30 Tube Feeding 670 60 210 Other 90 60 Output: Urine 40 55 25 Other: Voiding Method Indwelling Catheter Indwelling Catheter Indwelling Catheter # Bowel Movements 1 1 ABP, PAP, CO, CI - Last Documented Arterial Blood Pressure 157/65 - Exam GENERAL: Revealed a 61-year-old white male, intubated, mechanically ventilated, opens eyes to painful stimuli or verbal stimuli otherwise no other responses. Head atraumatic, normocephalic. Tracheostomy is intact EYES: Pupils equal. Conjunctiva normal. HEENT: External appearance of nose and ears normal, oral cavity grossly normal. NECK: JVD not raised; masses not palpable. HEART: Irregular irregular rhythm, normal S1 and S2, no S3 gallop, no murmur. LUNGS: Symmetrical chest expansion crackles at the bases diminished breath sounds on the right side ABDOMEN: Soft, distended, no megaly no rebound no guarding PSYCH: Could not assess patient remains obtunded Extremities: Bipedal edema noted. DERMATOLOGICAL: Large wound around the lateral malleolus right foot Gangrene Changes, wrapped with sterile dressing. Patient also has deep tissue injury to his coccyx/buttocks area MUSCULOSKELETAL:No Clubbing/cyanosis;muscles-grossly intact, NEUROLOGICAL: Patient is obtunded, opens eyes, does not follow any instructions, he opens eyes to verbal stimuli only, grimaces to painful stimuli - Labs CBC & Chem 7: 02/25/22 04:13 02/25/22 06:31 Labs: Abnormal Lab Results - Last 24 Hours (Table) 02/24/22 02/24/22 02/25/22 Range/Units 17:45 23:40 04:13 RBC 2.66 L (4.30-5.90) m/uL Hgb 7.8 L (13.0-17.5) gm/dL Hct 27.1 L (39.0-53.0) % MCV 101.8 H (80.0-100.0) fL MCHC 28.9 L (31.0-37.0) g/dL RDW 19.6 H (11.5-15.5) % Plt Count 139 L (150-450) k/uL Lymphocytes # 0.6 L (1.0-4.8) k/uL Macrocytosis Marked A ABG Total CO2 (19-24) mmol/L ABG O2 Saturation (94-97) % BUN (9-20) mg/dL Creatinine (0.66-1.25) mg/dL Glucose (74-99) mg/dL POC Glucose (mg/dL) 112 H 140 H (70-110) mg/dL Calcium (8.4-10.2) mg/dL 02/25/22 02/25/22 02/25/22 Range/Units 05:44 06:06 06:31 RBC (4.30-5.90) m/uL Hgb (13.0-17.5) gm/dL Hct (39.0-53.0) % MCV (80.0-100.0) fL MCHC (31.0-37.0) g/dL RDW (11.5-15.5) % Plt Count (150-450) k/uL Lymphocytes # (1.0-4.8) k/uL Macrocytosis ABG Total CO2 26 H (19-24) mmol/L ABG O2 Saturation 98.4 H (94-97) % BUN 41 H (9-20) mg/dL Creatinine 3.07 H (0.66-1.25) mg/dL Glucose 156 H (74-99) mg/dL POC Glucose (mg/dL) 147 H (70-110) mg/dL Calcium 7.5 L (8.4-10.2) mg/dL 02/25/22 Range/Units 11:32 RBC (4.30-5.90) m/uL Hgb (13.0-17.5) gm/dL Hct (39.0-53.0) % MCV (80.0-100.0) fL MCHC (31.0-37.0) g/dL RDW (11.5-15.5) % Plt Count (150-450) k/uL Lymphocytes # (1.0-4.8) k/uL Macrocytosis ABG Total CO2 (19-24) mmol/L ABG O2 Saturation (94-97) % BUN (9-20) mg/dL Creatinine (0.66-1.25) mg/dL Glucose (74-99) mg/dL POC Glucose (mg/dL) 141 H (70-110) mg/dL Calcium (8.4-10.2) mg/dL Microbiology - Last 24 Hours (Table) 02/20/22 15:40 Gram Stain - Final Bronchoalviolar Lavage - Right Bronchial Washings Culture - Final Achromobacter xylos SS denit Stenotrophomonas maltophilia Assessment and Plan Assessment: Impression: Acute hypercapnic respiratory failure, intubated on 02/05/2022 underwent tracheostomy on 02/17 Status post tracheostomy on 02/17, patient was a failure to wean. Remains a failure to wean Acute metabolic encephalopathy Right sided rib fractures, traumatic, secondary to fall, Right sided pulmonary contusion. Anterior wedge compression fracture of L1 Hemoptysis secondary to contusion and exacerbated by Coumadin coagulopathy Underlying COPD and chronic smoking Coumadin toxicity with INR above 10 on admission, recovered History of frequent falls. Metabolic encephalopathy, acute, being addressed by neurology on the case. Chronic atrial fibrillation. Acute on Chronic kidney disease stage III. Stage II right ankle wound requiring debridement and positive for MSSA/staph aureus and strep agalactiae Positive bacteremia, however his blood cultures have been negative from 02/04 and 02/05. Diabetic peripheral neuropathy History of Nephrolithiasis Nonspecific colitis Perianal fistula Recommendation: Continue ventilatory support, and tracheostomy care. patient is notweanable at this point. Continue to hold sedation. Continue antibiotics, as per ID on the case. Continue IV fluid at KVO Continue hemodynamic monitoring,use norepinephrine as needed Nutritional support/enteral feeding, Continue GI and DVT prophylaxis Continue Eraxis Continue eliquis Continue bronchodilators Continue Keppra Continue Flagyl Continue metoprolol Continue amiodarone. Continue Levemir insulin 14 units at bedtime and sliding scale coverage awaiting failure from his family regarding his CODE STATUS, and possibly change to comfort care measures We will continue to follow. Critical care time is over 30 minutes Time with Patient: Greater than 30
[2022-02-25] MEDS: DARBEPOETIN ALFA 60 MCG/0.3 ML SYRINGE SQ SCH (18:05)
[2022-02-25 18:12] LABS: Glucose,Whole Blood 172 mg/dL (70-110)
--- NOTE | 2022-02-25 19:07 | P.PN ---
Progress Note - Text Progress Note Date: 02/25/22 Hospital course This is a 61-year-old patient who follows with Dr. Sridhar Chan. Chronic stable medical conditions include diabetes, hypertension, hyperlipidemia, chronic low back problems, cigarette smoker. At the baseline uses a walker. Patient slipped in the bathroom falling on his buttock. Was not able to get up. By the EMS report he had fallen 24 hours prior to the picking him up. Patient been complaining of pain in the right rib cage in the lower back. X-ray was negative for fracture. Patient continued to have significant pain especially with deep breathing. Patient also had a congestive cough and wheezing. Some bloody sputum. Denies any fever and chills. Patient also complaining of urinary retention and requesting a Shepard catheter. at the bedside. No fever no chills. Orthopedics consulted for the same. Patient normally has a bowel movement once a week. Patient also has a wound on the right foot lateral part of the ankles for about a week. Ischemic changes. From rubbing against a bedpost. Patient's INR in the ER was greater than 10. Was given vitamin K. 10 mg Patient bit with Coumadin toxicity, given vitamin K, acute COPD exacerbation, uncontrolled atrial flutter put on Lopressor, right chest wall pain. Computed tomography scan lumbar spine and chest was ordered. Large wound on the right lateral malleolus-ID and vascular consulted.. IV cefepime. February 01: Patient yesterday to see refused his computed tomography scan of the chest and lumbar spine. Done today. Right-sided rib fractures, pulmonary contusion confirm. L1 vertebral body 30% wedge compression fracture. Patient's girlfriend the bedside. It was discussed in detail with her. Patient wanting again and again to pull out his NG tube. Requests the to stay with the patient. Patient is also had the dark aspirate from the stomach for which she has NG tube. Surgery was consulted for the same. Also this morning right foot wound was debrided by Dr. Ibarra from vascular. Wound base was relatively clean. No undermining or tunneling. February 02: Delirious. NG tube to suction. Has been in restraints because point NG TUBE several times. Mumbling to himself. Dressing over the right ankle. Not in distress. Ileus. Chest x-ray showing right lower lobe/ate lectasis. February 03: Hospital computer system was down. Patient remains delirious. Nasal cannula. Lethargic. Family the bedside. Antibiotics. A. fib uncontrolled. EEG evidence of metabolic encephalopathy. No clear-cut epileptiform activity. Started on Keppra by neurology. February 04: ICU: Girlfriend at the bedside. In atrial fibrillation uncontrolled. On IV Cardizem and IV amiodarone. NG tube to suction. Patient lethargic. Multiple breathing. 2 L. Oxygen. February 05: ICU. Atrial fibrillation better controlled this morning. Cardizem discontinued. Patient respiratory status worsened this morning and patient is intubated. FiO2 45 and a PEEP of 5. Atrial fibrillation, controlled. Drips include amiodarone, propofol, levo fed. Discussed with girlfriend the bedside. Understands prognosis guarded. February 06: ICU: Ventilated. FiO2 45 and a PEEP of 5. NG tube is clamped. On IV propofol. Sedated. Heart rate better controlled. Was started on Coumadin yesterday. Worsening renal function. Nephrology consulted. 02/07/2022 Patient is currently in the MICU and on mechanical ventilator. Tidal volume of 400, FiO2 40% and PEEP of 5. Patient is off pressor support today. Currently on propofol and is also on tube feeding. Chest x-ray showed stable exam with stable support lines and tubes. Correlate for congestive heart failure. Patient was given a dose of IV Lasix. Laboratory data showed WBC 18.4 hemoglobin 11.6 and platelets 458 Sodium 141 potassium 3.7 chloride 103 bicarb is 18 BUN 49 and creatinine 3.73 and calcium 7.3. INR is 2.2. Patient is being followed by nephrology cardiology and critical care team. 02/08/2022 Patient is currently on mechanical ventilator and sedated with propofol. Assist control with FiO2 40% and tidal volume of 400 and PEEP of 5. Patient is being continued on antibiotics above cefepime and Flagyl. Sputum gram stain gram-negative bacilli and Lynda. Chest x-ray today showed findings suggestive of slightly worsening CHF exacerbation as there is cardiomegaly with mild to moderate central venous congestion and small to moderate-sized bilateral pleural effusion. Laboratory test showed WBC increased to 23.6 hemoglobin 9.1 and platelets 162 INR 3.0 Sodium 139 potassium 4.3 chloride 113 bicarb is 40 BUN 54 and creatinine worsening to 4.36 February 09: I resumed the care of patient today ICU: Med: 40/5. Received vitamin K 5 mg IV to bring the INR down for dialysis catheter. Drips include bicarbonate, propofol, epinephrine. Patient is a stage II coccyx is ulcer. Plan is to change the NG tube to on G-tube today. For possible colitis/fistula on antibiotics. at the bedside. February 10: ICU. Ventilator 50/5. Hemodialysis catheter placed last night. Hemodialyzed yesterday and getting dialyzed today. Remains in atrial fibrillation heart rate uncontrolled. Getting up sedation holiday. Drips include bicarbonate and norepinephrine. Propofol currently held. 2 feeding at 46 mL an hour. Does open eyes. February 11: ICU. Ventilator. 50/5. Third day for hemodialysis. 1.5 L to be removed today. Back on propofol. Drips include bicarbonate, norepinephrine, propofol. On G-tube feeding. Patient back in sinus rhythm. Bag and tracheostomy to planning for next week. 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 IV antifungal started by ID. February 12: ICU: Ventilator: 40/5. Telemetry shows sinus rhythm. Drips include propofol and norepinephrine. On G-tube feeding. Discussed with the at the bedside. Understands prognosis guarded. IV antibiotics and antifungals. February 13: ICU: Ventilator: 40/5. PEG tube placed yesterday by Dr. Cornejo. Drips include bicarbonate, propofol, norepinephrine. Getting hemodialysis done today. February 14: ICU: Medicated. 2 feeding at 65 mL an hour. This included propofol and norepinephrine. Hemodialysis done today. Sinus rhythm. February 15: ICU: Ventilator: 40/5. 2 feeding at 65 mL an hour. Drips include propofol and norepinephrine. No hemodialysis today. at the bedside. Discussed. 02/16/2022 Patient seen and evaluated and follow-up continues to be in the ICU on mechanical ventilation with sedation with multiple medical consultations following. Patient is currently receiving hemodialysis and continues with a temporary dialysis catheter. Patient is still full code and overall prognosis remains extremely poor and guarded. Patient's FiO2 is 40% with a PEEP of 5. Patient also continues on antifungal along with cefepime and metronidazole with infectious disease following. Patient is sedated on propofol continues on Levophed as well. WBC is 12.9 with hemoglobin of 8.7, sodium is 134 with a potassium of 4.5 current creatinine is 4.69 with a BUN of 66. Patient is maintained on tube feedings and has received the PEG tubing is scheduled for tracheostomy tentatively today if OR available. Again overall prognosis remains extremely guarded. 02/17/2022 Patient continues to be in the ICU on mechanical vent and FiO2 remains 40% with a PEEP of 5. Patient continues on norepinephrine with multiple medical consultations following. Patient continues on propofol for sedation and also was maintained on hemodialysis almost daily. Patient continues on cefepime along with an antifungal and Flagyl with anxiety following sputum culture showing 16 oh troph ammonias maltophilia with Lynda most recent blood cultures have been negative. Patient is afebrile although WBC is elevated at 14.5 and hemoglobin is 8.9, BUN is 61 with a creatinine of 4.55, sodium is 135 and sodium bicarb tablets have been discontinued. Magnesium was 1.9. Plan is tentatively scheduled for tracheostomy with general surgery today post hemodialysis. Overall prognosis is extremely guarded. Chest x-ray shows continued bilateral pleural effusions with no significant change from previous day. Patient is maintained on tube feedings via PEG tube although on hold for surgery today 02/18/2022 Patient is seen and evaluated continues to be in the ICU with multiple medical consultations following. Patient is status post tracheostomy placement with Dr. Villegas yesterday evening and tolerating well with no leaks noted. Patient continues on FiO2 of 40% with a PEEP of 5. Patient undergoing sedation holiday and propofol was recently turned off. Patient is awake and opening eyes spontaneously although not following commands on exam. Patient is looking around the room and mouthing words with no comprehension. Patient with extensive wounds of the sacro-coccyx region that are currently unstageable and general surgery is following and may possibly require debridement of these areas. Patient is status post debridement of the right foot previously. Patient is maintained on antibiotics along with antifungal's and infectious disease is following. Patient is afebrile and WBC is 10.6, hemoglobin is 8.4, patient is also with a BUN of 50 and creatinine is 3.78, magnesium is 1.8. Patient is being closely monitored by nephrology with a temporary site of the right femoral receiving daily dialysis. Patient continues on low-dose Levophed and working on weaning as tolerated. PEG tube feedings are at goal and t olerating. Overall prognosis remains extremely guarded. 02/19/2022 Patient is seen in follow-up this morning and has been off propofol since yesterday although continues to not follow commands. Multiple medical consultations following. Patient is status post recent tracheostomy and also PEG tube placement and has been resumed on tube feedings and tolerating at goal. Patient is continuing on hemodialysis with a right groin temporary catheter. Chest x-ray this morning shows some possible progression of pleural effusions and airspace disease or atelectasis especially in the right lung. Nursing staff questioning about anticoagulation and his Coumadin was on hold for tracheostomy and patient is being started on eliquis. Patient continues on antibiotics as well in the form of cefepime and Flagyl and antifungal's with anxiety following. Patient also continues on low-dose Levophed. Patient continues on mechanical ventilation via tracheostomy with an FiO2 of 60. Patient scheduled to receive dialysis again today. General surgery is following and may be required for debridement of the decubitus ulcers once more stable. Pulmonary discussing possible thoracentesis in the near future. Patient is currently afebrile. Prognosis remains extremely guarded. February 20: Patient was being covered by [facility] last 4 days. ICU. Ventilator. FiO2 16 a PEEP of 8. Has a PEG and trach. Awake, drowsy. On norepinephrine. at the bedside. February 21: ICU: Ventilator. FiO2 60 PEEP of 8. Hemodialysis today. Drips include norepinephrine. Sinus tachycardia. Does open eyes. Sticks his tongue. Drowsy. Not really following commands February 22: ICU: Ventilator. FiO2 16 a PEEP of 8. Patient is in and out of atrial fibrillation. Does open eyes and sticks his tongue out intermittently. Nonpurposeful. Currently on levo fed drip small dose. Midodrine has been added. 2 feeding at 25 mL an hour. at the bedside. February 23: ICU: Ventilator. FiO2 50 PEEP of 12. Drips include norepinephrine. Decreased Accu-Chek. tube feeding increased. February 24: ICU: Ventilator: FiO2 50 and a PEEP of 12. 2 feeding at 40. Patient is off levo fed. Lethargic. EEG yesterday showed encephalopathy obvious evidence of seizure. Keppra ordered per neurology. Ultrafiltration hemodialysis today. Significant edema. February 17: ICU: Ventilator: FiO2 50 and a PEEP of 8. Atrial fibrillation rate controlled. 2 feeding at 90 mL an hour. On a small dose of epinephrine. Patient lethargic. Dr. Ryan met with the family yesterday. Comfort measures were suggested. Family will talk further. Active Medications Acetaminophen (Acetaminophen Tab 325 Mg Tab) 650 mg PO Q6HR PRN PRN Reason: Mild Pain or Fever > 100.5 Albuterol/Ipratropium (Ipratropium-Albuterol 3 Ml Neb) 3 ml INHALATION RT-QID [facility] Last Admin: 02/25/22 14:50 Dose: 3 ml Amiodarone HCl (Amiodarone 200 Mg Tab) 200 mg PO BID [facility] Last Admin: 02/25/22 07:59 Dose: 200 mg Apixaban (Apixaban 2.5 Mg Tablet) 2.5 mg PO BID [facility]; Protocol Last Admin: 02/25/22 07:59 Dose: 2.5 mg Artificial Tears (Artificial Tears-Hypromellose Drops 15 Ml Btl) 2 drops BOTH EYES TID PRN PRN Reason: Dry Eye(s) Budesonide (Budesonide 1 Mg/2 Ml Nebu) 1 mg INHALATION RT-BID [facility] Last Admin: 02/25/22 07:20 Dose: 1 mg Calcium Acetate (Calcium Acetate 667 Mg Tab) 667 mg PO TID-W/MEALS [facility] Last Admin: 02/25/22 18:05 Dose: 667 mg Calcium Carbonate/Glycine (Calcium Carbonate 500 Mg Chewable) 1,000 mg PO Q4HR PRN PRN Reason: Dyspepsia Last Admin: 01/31/22 14:29 Dose: 1,000 mg Chlorhexidine Gluconate (Chlorhexidine Gluconate 15 Ml Cup) 15 ml MUCOUS MEM BID [facility] Last Admin: 02/25/22 07:58 Dose: 15 ml Collagenase (Collagenase 250 Unit/Gm Ointment 30 Gm Tube) 1 applic TOPICAL DAILY [facility]; Protocol Last Admin: 02/25/22 08:00 Dose: 1 applic Darbepoetin Mann (Darbepoetin Mann 60 Mcg/0.3 Ml Syringe) 60 mcg SQ Q7D [facility] Last Admin: 02/25/22 18:05 Dose: 60 mcg Dextrose/Water (Dextrose 50% Syringe 50 Ml) 25 ml IVP PER PROTOCOL PRN; Protocol PRN Reason: Hypoglycemia Last Admin: 02/23/22 05:39 Dose: 25 ml Dextrose/Water (Dextrose 50% Syringe 50 Ml) 50 ml IVP PER PROTOCOL PRN; Protocol PRN Reason: Hypoglycemia Metronidazole 500 mg/ IV (Solution) 100 mls @ 100 mls/hr IVPB Q8HR [facility]; Protocol Last Admin: 02/25/22 15:36 Dose: 100 mls/hr Cefepime HCl 1 gm/ Sodium (Chloride) 50 mls @ 12.5 mls/hr IVPB Q12HR [facility] Last Admin: 02/25/22 08:00 Dose: 12.5 mls/hr Norepinephrine Bitartrate 32 (mg/ Sodium Chloride) 250 mls @ 3.246 mls/hr IV .Q24H [facility]; Protocol Last Titration: 02/25/22 08:08 Dose: 0.01 mcg/kg/min, 0.649 mls/hr Levetiracetam 500 mg/ Sodium (Chloride) 105 mls @ 400 mls/hr IVPB Q12HR [facility] Last Admin: 02/25/22 07:59 Dose: 400 mls/hr Levetiracetam 500 mg/ Sodium (Chloride) 105 mls @ 400 mls/hr IVPB 1400 [facility] Last Admin: 02/25/22 15:36 Dose: 400 mls/hr Insulin Aspart (Insulin Aspart (Novolog) 100 Unit/Ml Vial) 0 unit SQ Q6HR [facility]; Protocol Last Admin: 02/25/22 18:10 Dose: 2 unit Lactulose (Lactulose 20 Gm/30 Ml Cup) 30 gm PO DAILY [facility] Last Admin: 02/25/22 07:58 Dose: 30 gm Metoprolol Tartrate (Metoprolol Tartrate 25 Mg Tab) 25 mg PO BID [facility] Last Admin: 02/25/22 07:59 Dose: 25 mg Midodrine (Midodrine 5 Mg Tab) 10 mg PO AC-TID [facility] Last Admin: 02/25/22 18:05 Dose: Not Given Miscellaneous Information (Potassium Replacement Protocol 1 Each Misc) 1 each MISCELLANE DAILY PRN; Protocol PRN Reason: Per Protocol Miscellaneous Information (Magnesium Replacement Protocol 1 Each Misc) 1 each MISCELLANE DAILY PRN; Protocol PRN Reason: Per Protocol Naloxone HCl (Naloxone 0.4 Mg/Ml 1 Ml Vial) 0.2 mg IV Q2M PRN PRN Reason: Opioid Reversal Ondansetron HCl (Ondansetron 4 Mg/2 Ml Vial) 4 mg IVP Q8HR PRN PRN Reason: Nausea And Vomiting Last Admin: 02/02/22 08:41 Dose: 4 mg Pantoprazole Sodium (Pantoprazole 40 Mg/10 Ml Vial) 40 mg IVP BID [facility] Last Admin: 02/25/22 07:59 Dose: 40 mg Pregabalin (Pregabalin 100 Mg Cap) 100 mg PO BID [facility] Last Admin: 02/25/22 07:59 Dose: 100 mg Past medical history to include: COPD, diabetes, hypertension, hyperlipidemia, back problems, TB, atrial fibrillation, on Coumadin Social history: Smokes a pack a day for close to 50 years. Stop doing alcohol some time ago. Lives with his significant other Sandra. Does use a walker. 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 Conjunctiva normal. HEENT: External appearance of nose and ears normal, oral cavity dry, tracheostomy NECK: JVD not raised; masses not palpable. HEART: Heart sounds regular; edema present LUNGS: Respiratory rate increased; decreased breath sound, ABDOMEN: Soft, distended, nontender, liver spleen not palpable, no masses palpable. PEG tube. PSYCH: Unable to assess, patient lethargic DERMATOLOGICAL: Wound on right ankle lateral malleolus. Under dressing. Stage II coccygeal breakdown. See nursing notes INVESTIGATIONS, reviewed in the clinical context: February 25: Potassium 4.2 BUN 41 crit and 3.07 February 24: WBC 6.2 hemoglobin 7.7 platelets 163 potassium 4.3 BUN 42 creatinine 3.11 February 15: WBC 13.9 hemoglobin 9.6 platelets 96 potassium 4.4 BUN 59 creatinine 4.21 procalcitonin 2.05 Acute hepatitis screen: Negative Complement C3 78, complement C4 19.6 February 11: Sodium 138 potassium 4.4 creatinine 4.19 Sputum: Stenostrophonas maltophilia, Lynda albicans Computed tomography scan abdomen and pelvis [February 06] 6 mm stone in the right renal collecting system. Some circumferential wall thickening of the cecum and ascending colon. Distention of the rectum 7.5 cm with solid stool. EEG: Evidence of encephalopathy. No obvious epileptiform activity. 2-D echocardiogram: EF 60-65%. Renal ultrasound: Shows bilateral normal cortical medullary thickness. February 01: WBC 17.1 hemoglobin 14.8 UA: Blood large, leukoesterase moderate WBC 28 nitrite negative Lumbar spine CT: Anterior wedge compression deformity of L1. Multiple level DJD. 7 mm calculus right renal pelvis. CT chest without contrast: Right lateral eighth through 10th rib fractures with associated gas trace hemothorax right lower lobe pulmonary contusion/atelectasis. Patchy) disease left upper lobe. WBC 25.8 hemoglobin 14.1 platelets 217 INR greater than 10 sodium 131 potassium 3.9. 24 creatinine 1.8 to EKG tracing personally reviewed by me-atrial flutter. Rate 132 Foot/Lumbar/sacral coccyx: Spondylitic changes. No fracture. Chest x-ray film personally reviewed by me-clinically. Possible hyperinflation Assessment and plan: -Coumadin toxicity. INR greater than 10. On presentation: 10 mg vitamin K in the ER. Hemoptysis on presentation. Coumadin resumed on February 05.. - right lung contusion.-Secondary to fall. hemoptysis on presentation -Pneumonia, secondary to Stenostrophonas maltophilia, Lynda albicans: Slow to respond IV cefepime, IV anidulafungin -Sepsis with positive blood cultures MSSA, likely source right ankle. From January 31. IV cefepime. February 04 blood culture negative -Acute hypoxic respiratory failure multifactorial including pneumonia/COPD. Ventilator assisted: Slow to respond FiO2 50% -Acute hypoxic respiratory failure, multifactorial: ventilator support,: Slow to respond Patient intubated on February 05 -Acute COPD exacerbation, with chronic bronchitis component in a current smoker: Slow to respond DuoNeb. Nebulized Pulmicort. Mucinex. -Chronic nicotine dependence, cigarette smoker Nicotine patch -Paroxysmal atrial flutter,: Back in sinus rhythm Lopressor 50 mg 3 times a day. 2-D echocardiogram unremarkable. Oral amiodarone Coumadin started on February 05 -Possible CK D with possible acute component. creatinine was 0.8 in April 2019. Renal ultrasound unremarkable. UA shows trace protein. IV fluids.. -Acute kidney injury, ATN, likely cardiorenal syndrome.: Not improving Follow with nephrology. Daily Hemodialysis started February 09 -Acute right-sided 8-10 ribs fracture secondary to fall K pad -Diabetes mellitus type 2, chronically on oral hypoglycemic Sliding scale insulin. Increase tube feeding. DC Levemir -Diabetic peripheral neuropathy Decreased dose of Lyrica in the setting of renal failure. 100 mg twice a day -Chronic low back pain: MS Contin 15 mg every 12, Walker 7.5 twice a day when necessary -Anxiety depression not otherwise specified Wellbutrin XL 100 mg twice a day -Hyperlipidemia Lipitor 40 mg daily at bedtime -Right ankle lateral, diabetic wound, stage II acute. Wound culture positive for Streptococcus agalactiae and Staphylococcus aureus. IV Ancef initially. Follow with ID Patient has poor distal pulses. February 01 wound was debrided by Dr. Ibarra. Clean base. -Acute L1 30% wedge fracture secondary to fall LSO brace. Be followed by Dr. Damon -Acute delirium multifactorial. Slow to respond -Acute ileus, NG tube for decompression.; clamped.: Corrected Being followed by surgery. -Possible colitis /fistula on computed tomography scan. IV Flagyl. Cefepime. Followed by surgery -Normocytic anemia, multifactorial. Chronic disease component, hospital- acquired/blood draw and infection. Suspicions hypotensive requiring levo fed will transfuse a unit of blood. IV low-dose. IV Flagyl,/IV cefepime/IV anidulafungin-discontinued. Prognosis remains guarded. Dr. Ryan met with the family yesterday, discuss guarded prognosis also suggested possible comfort measures. Family's discussing.
[2022-02-25 23:33] LABS: Glucose,Whole Blood 161 mg/dL (70-110)
[2022-02-26 04:42] LABS: Anisocytosis Slight; Basophils # (A) 0.1 k/uL (0-0.2); Basophils % (A) 1 %; Eosinophils # (A) 0.5 k/uL (0-0.7); Eosinophils % (A) 7 %; HGB 7.7 gm/dL (13.0-17.5); Hypochromasia Marked; Lymphocytes # (A) 0.8 k/uL (1.0-4.8); Lymphocytes % (A) 11 %; MCH 29.9 pg (25.0-35.0); MCHC 29.8 g/dL (31.0-37.0); MCV 100.4 fL (80.0-100.0); Macrocytosis Moderate; Mean Platelet Volume 10.7; Monocytes # (A) 0.5 k/uL (0-1.0); Monocytes % (A) 7 %; Neutrophils # (A) 4.8 k/uL (1.3-7.7); Neutrophils % (A) 71 %; Platelet Count 129 k/uL (150-450); RBC 2.59 m/uL (4.30-5.90); RDW 19.2 % (11.5-15.5); WBC 6.8 k/uL (3.8-10.6)
[2022-02-26 05:02] LABS: Calcium 7.6 mg/dL (8.4-10.2)
[2022-02-26 05:51] LABS: Glucose,Whole Blood 158 mg/dL (70-110)
[2022-02-26 05:55] LABS: ABG Base Excess 0.2 mmol/L; ABG HCO3 25 mmol/L (21-25); ABG Oxygen Saturation 99.3 % (94-97); ABG PCO2 43 mmHg (35-45); ABG PH 7.38 (7.35-7.45); ABG PO2 111 mmHg (83-108); ABG TCO2 27 mmol/L (19-24); Allen Test Performed? Yes
[2022-02-26] MEDS: INSULIN ASPART (NovoLOG) 100 UNIT/ML VIAL SQ SCH ×4 (05:56→23:56)
[2022-02-26] MEDS: CALCIUM ACETATE 667 MG TAB PO SCH ×3 (06:30→16:47)
[2022-02-26] MEDS: MIDODRINE 5 MG TAB PO SCH ×4 (06:30→16:47)
[2022-02-26] MEDS: IPRATROPIUM-ALBUTEROL 3 ML NEB INHALATION SCH ×4 (07:04→19:58)
[2022-02-26] MEDS: BUDESONIDE 1 MG/2 ML NEBU INHALATION SCH ×2 (07:04→19:58)
[2022-02-26] MEDS: NOREPINEPHRINE 32 MG in SODIUM CHLORIDE 0.9% 218 ML IV SCH (07:44)
[2022-02-26] MEDS: metroNIDAZOLE-NS PMX 500 MG in SALINE 1 100ML.BAG IVPB SCH ×3 (07:55→23:57)
--- NOTE | 2022-02-26 08:50 | XR ---
EXAMINATION TYPE: XR chest 1V portable DATE OF EXAM: 02/26/2022 COMPARISON: 02/25/2022 HISTORY: SOB, Follow Up FINDINGS: Indwelling tubes and catheters are unchanged. No change in bibasilar opacities. Stable appearance of the cardio-mediastinal structures at this time. Pleural effusion unchanged. IMPRESSION: 1. Stable portable chest. Clinical correlation and follow up until resolution is recommended.
[2022-02-26] MEDS: AMIODARONE 200 MG TAB PO SCH ×2 (09:18→20:52)
[2022-02-26] MEDS: CHLORHEXIDINE GLUCONATE 15 ML CUP MUCOUS MEM SCH ×2 (09:18→20:52)
[2022-02-26] MEDS: APIXABAN 2.5 MG TABLET PO SCH ×2 (09:18→20:52)
[2022-02-26] MEDS: CEFEPIME 1 GM in SODIUM CHLORIDE 0.9% 50 ML IVPB SCH ×2 (09:18→20:52)
[2022-02-26] MEDS: PANTOPRAZOLE 40 MG/10 ML VIAL IVP SCH ×2 (09:19→20:52)
[2022-02-26] MEDS: METOPROLOL TARTRATE 25 MG TAB PO SCH ×2 (09:19→20:52)
[2022-02-26] MEDS: COLLAGENASE 250 UNIT/GM OINTMENT 30 GM TUBE TOPICAL SCH (09:19)
[2022-02-26] MEDS: LACTULOSE 20 GM/30 ML CUP PO SCH (09:19)
[2022-02-26] MEDS: levETIRAcetam IV 500 MG in SODIUM CHLORIDE 0.9% 100 ML IVPB SCH ×3 (09:19→20:52)
[2022-02-26] MEDS: PREGABALIN 100 MG CAP PO SCH ×2 (09:19→20:52)
--- NOTE | 2022-02-26 09:46 | P.PN ---
Subjective Patient is seen in follow-up for acute kidney injury. Started on hemodialysis 02/09/2022. Currently off vasopressors. Receiving tube feeds. Tolerated 2.4 L UF yesterday. No changes overnight. Vital signs are stable. General: Resting in bed. HEENT: Tracheostomy noted. LUNGS: Breath sounds decreased. HEART: Rate and Rhythm are regular. ABDOMEN: Soft, no distention. EXTREMITITES: 1+ edema. Scrotal edema noted. Objective - Vital Signs Vital signs: Vital Signs Temp 98.9 F 02/26/22 08:00 Pulse 94 02/26/22 09:00 Resp 24 02/26/22 09:00 BP 124/71 02/26/22 09:00 Pulse Ox 97 02/26/22 09:00 FiO2 50 02/26/22 08:00 Intake & Output 02/25/22 02/26/22 02/26/22 18:59 06:59 18:59 Intake Total 1799 1340.615 519 Output Total 4895 115 20 Balance -3096 1225.615 499 Weight 153.2 kg 155.2 kg Intake: IV 649 253 219 0.9% Sodium Chloride @ 260 220 60 10mls/hr Anidulafungin 100 mg In 100 Sodium Chloride 0.9% 100 ml @ 84 mls/hr IVPB DAILY [facility] Rx#:[id number] Cefepime 1 gm In Sodium 50 50 Chloride 0.9% 50 ml @ 12. 5 mls/hr IVPB Q12HR [facility] Rx#:[id number] Pressure bags 39 33 9 metroNIDAZOLE-NS PMX 500 200 100 mg In Saline 1 100ml.bag @ 100 mls/hr IVPB Q8HR [facility] Rx#:[id number] Intake, IV Titration 200 7.615 Amount Norepinephrine 32 mg In 0 7.615 Sodium Chloride 0.9% 218 ml @ 0.05 MCG/KG/MIN 3. 246 mls/hr IV .Q24H [facility] Rx#:[id number] levETIRAcetam IV 500 mg 200 In Sodium Chloride 0.9% 100 ml @ 400 mls/hr IVPB 1400 [facility] Rx#:[id number] Tube Feeding 950 990 270 Other 90 30 Output: Urine 95 115 20 Hemodialysis 2400 Other 2400 Other: Voiding Method Indwelling Catheter Indwelling Catheter # Bowel Movements 1 ABP, PAP, CO, CI - Last Documented Arterial Blood Pressure 133/57 - Labs CBC & Chem 7: 02/26/22 04:28 02/26/22 04:28 Labs: Abnormal Lab Results - Last 24 Hours (Table) 02/20/22 02/25/22 02/25/22 Range/Units 15:40 04:13 11:32 RBC (4.30-5.90) m/uL Hgb (13.0-17.5) gm/dL Hct (39.0-53.0) % MCV (80.0-100.0) fL MCHC (31.0-37.0) g/dL RDW (11.5-15.5) % Plt Count 139 L (150-450) k/uL Lymphocytes # 0.6 L (1.0-4.8) k/uL ABG pO2 (83-108) mmHg ABG Total CO2 (19-24) mmol/L ABG O2 Saturation (94-97) % Sodium (137-145) mmol/L BUN (9-20) mg/dL Creatinine (0.66-1.25) mg/dL Glucose (74-99) mg/dL POC Glucose (mg/dL) 141 H (70-110) mg/dL Calcium (8.4-10.2) mg/dL Viral Test See Below A 02/25/22 02/25/22 02/26/22 Range/Units 18:09 23:31 04:28 RBC 2.59 L (4.30-5.90) m/uL Hgb 7.7 L (13.0-17.5) gm/dL Hct 26.0 L (39.0-53.0) % MCV 100.4 H (80.0-100.0) fL MCHC 29.8 L (31.0-37.0) g/dL RDW 19.2 H (11.5-15.5) % Plt Count 129 L (150-450) k/uL Lymphocytes # 0.8 L (1.0-4.8) k/uL ABG pO2 (83-108) mmHg ABG Total CO2 (19-24) mmol/L ABG O2 Saturation (94-97) % Sodium (137-145) mmol/L BUN (9-20) mg/dL Creatinine (0.66-1.25) mg/dL Glucose (74-99) mg/dL POC Glucose (mg/dL) 172 H 161 H (70-110) mg/dL Calcium (8.4-10.2) mg/dL Viral Test 02/26/22 02/26/22 02/26/22 Range/Units 04:28 05:49 05:53 RBC (4.30-5.90) m/uL Hgb (13.0-17.5) gm/dL Hct (39.0-53.0) % MCV (80.0-100.0) fL MCHC (31.0-37.0) g/dL RDW (11.5-15.5) % Plt Count (150-450) k/uL Lymphocytes # (1.0-4.8) k/uL ABG pO2 111 H (83-108) mmHg ABG Total CO2 27 H (19-24) mmol/L ABG O2 Saturation 99.3 H (94-97) % Sodium 136 L (137-145) mmol/L BUN 43 H (9-20) mg/dL Creatinine 2.69 H (0.66-1.25) mg/dL Glucose 143 H (74-99) mg/dL POC Glucose (mg/dL) 158 H (70-110) mg/dL Calcium 7.6 L (8.4-10.2) mg/dL Viral Test Assessment and Plan Plan: Assessment: 1. Acute kidney injury secondary to ATN secondary to septic shock. Started on hemodialysis 02/09/2022. Oliguric. Creatinine in April 2019 was 0.8. Creatinine was as low as 1.62 this admission. No hydronephrosis noted on CAT scan. 2. MSSA bacteremia with likely source being right foot ulcer. Also component of pneumonia. ID following. On antibiotics. Also on antifungal. 3. A. fib. Cardiology following. On amiodarone and beta donovan. 4. Metabolic acidosis secondary to acute kidney injury. Stable. 5. Diabetes mellitus. 6. Hyperphosphatemia secondary to acute kidney injury. on PhosLo. 7. Volume overload. Improved with ultrafiltration. Still quite edematous. Status post bronchoscopy 02/20/2022 with removal of mucous plugs and bronchioloalveolar lavage. 8. Anemia. Iron replete. On Aranesp. Hemoglobin 7.7 today. No active bleeding. Plan: Hemodialysis today and continue with daily treatments this week mostly for volume overload. Stopped Demadex as patient has no urine output. No response to IV Lasix given 02/17/2022. Maintain tube feeds. Maintain midodrine. Hold for systolic blood pressure greater than 115. Continue to monitor for renal recovery. Serologies negative except C3 slightly low. Repeat phosphorus level.
--- NOTE | 2022-02-26 10:18 | P.PN ---
Subjective Progress Note Date: 02/25/22 Principal diagnosis: Right foot infected pressure ulcer and bacteremia Patient is a 61-year-old male presented to the hospital for evaluation of fall patient also noticed to have a wound on the right lateral foot with some necrotic edges which has been debridement by vascular surgery on 01/31/2022.Patient has been transthoracic because of significant mental status changes, The patient ended up getting intubated, the patient also have worsening of the kidney function requiring dialysis catheter placement and has been started on dialysis as of 02/09/2022, the patient did have a PEG tube placement on 02/22/2022 , The patient is s/p tracheostomy completed on 02/17/2022, the patient is status post bronchoscopy completed on 02/20/2022 On today's evaluation that is 02/25/2022 the, the patient remains to be afebrile, the patient remains to be intubated through the tach, the patient FiO2 is currently stable at 50% no significant purulent secretions through the ET quentin rrhea or any other changes reported by the nursing staff Objective - Vital Signs Vital signs: Vital Signs Temp 98.6 F 02/25/22 12:00 Pulse 96 02/25/22 12:00 Resp 24 02/25/22 12:00 BP 124/61 02/25/22 12:00 Pulse Ox 100 02/25/22 12:00 FiO2 50 02/25/22 12:00 Intake & Output 02/24/22 02/25/22 02/25/22 18:59 06:59 18:59 Intake Total 1386 445.718 652 Output Total 40 55 25 Balance 1346 390.718 627 Weight 153.2 kg Intake: IV 626 276 342 0.9% Sodium Chloride @ 240 240 80 10mls/hr Anidulafungin 100 mg In 100 100 Sodium Chloride 0.9% 100 ml @ 84 mls/hr IVPB DAILY [facility] Rx#:[id number] Cefepime 1 gm In Sodium 50 50 Chloride 0.9% 50 ml @ 12. 5 mls/hr IVPB Q12HR [facility] Rx#:[id number] Pressure bags 36 36 12 metroNIDAZOLE-NS PMX 500 200 100 mg In Saline 1 100ml.bag @ 100 mls/hr IVPB Q8HR [facility] Rx#:[id number] Intake, IV Titration 19.718 100 Amount Norepinephrine 32 mg In 19.718 0 Sodium Chloride 0.9% 218 ml @ 0.05 MCG/KG/MIN 3. 246 mls/hr IV .Q24H [facility] Rx#:[id number] levETIRAcetam IV 500 mg 100 In Sodium Chloride 0.9% 100 ml @ 400 mls/hr IVPB 1400 [facility] Rx#:[id number] Oral 30 Tube Feeding 670 60 210 Other 90 60 Output: Urine 40 55 25 Other: Voiding Method Indwelling Catheter Indwelling Catheter Indwelling Catheter # Bowel Movements 1 1 ABP, PAP, CO, CI - Last Documented Arterial Blood Pressure 157/65 - Exam GENERAL DESCRIPTION: Middle-aged male intubated Through the trach LUNGS: Unlabored breathing. Decreased breath sound at the base HEART: S1, S2, regular rate and rhythm. ABDOMEN: Soft, no tenderness , guarding or rigidity, no organomegaly EXTREMITIES: Right foot wound is currently dressed no drainage on the dressing - Labs CBC & Chem 7: 02/26/22 04:28 02/26/22 04:28 Labs: Abnormal Lab Results - Last 24 Hours (Table) 02/24/22 02/24/22 02/25/22 Range/Units 17:45 23:40 04:13 RBC 2.66 L (4.30-5.90) m/uL Hgb 7.8 L (13.0-17.5) gm/dL Hct 27.1 L (39.0-53.0) % MCV 101.8 H (80.0-100.0) fL MCHC 28.9 L (31.0-37.0) g/dL RDW 19.6 H (11.5-15.5) % Plt Count 139 L (150-450) k/uL Lymphocytes # 0.6 L (1.0-4.8) k/uL Macrocytosis Marked A ABG Total CO2 (19-24) mmol/L ABG O2 Saturation (94-97) % BUN (9-20) mg/dL Creatinine (0.66-1.25) mg/dL Glucose (74-99) mg/dL POC Glucose (mg/dL) 112 H 140 H (70-110) mg/dL Calcium (8.4-10.2) mg/dL 02/25/22 02/25/22 02/25/22 Range/Units 05:44 06:06 06:31 RBC (4.30-5.90) m/uL Hgb (13.0-17.5) gm/dL Hct (39.0-53.0) % MCV (80.0-100.0) fL MCHC (31.0-37.0) g/dL RDW (11.5-15.5) % Plt Count (150-450) k/uL Lymphocytes # (1.0-4.8) k/uL Macrocytosis ABG Total CO2 26 H (19-24) mmol/L ABG O2 Saturation 98.4 H (94-97) % BUN 41 H (9-20) mg/dL Creatinine 3.07 H (0.66-1.25) mg/dL Glucose 156 H (74-99) mg/dL POC Glucose (mg/dL) 147 H (70-110) mg/dL Calcium 7.5 L (8.4-10.2) mg/dL 02/25/22 Range/Units 11:32 RBC (4.30-5.90) m/uL Hgb (13.0-17.5) gm/dL Hct (39.0-53.0) % MCV (80.0-100.0) fL MCHC (31.0-37.0) g/dL RDW (11.5-15.5) % Plt Count (150-450) k/uL Lymphocytes # (1.0-4.8) k/uL Macrocytosis ABG Total CO2 (19-24) mmol/L ABG O2 Saturation (94-97) % BUN (9-20) mg/dL Creatinine (0.66-1.25) mg/dL Glucose (74-99) mg/dL POC Glucose (mg/dL) 141 H (70-110) mg/dL Calcium (8.4-10.2) mg/dL Assessment and Plan (1) Cellulitis Current Visit: Yes Status: Acute Code(s): L03.90 - CELLULITIS, UNSPECIFIED SNOMED Code(s): 790669392 Plan: 1patient with right foot unstageable pressure ulcer with surrounding necrotic area and cellulitis On admission,x-rays do not show any bony changes likely from gram-positive skin caleb and less likely gram-negative pathogen, patient is status post vascular surgery evaluation and debridement and deep cultureWhich has been finalized with strep and MSSA. 2-patient with MSSA bacteremia source is likely right foot infected pressure ulcer, Repeat blood culture has been negative 3 patient sputum from 02/05/2022 has been finalized with stenotrophomonas sensitive to Fortaz and sputum with Lynda albicans concern for component of oropharyngeal candidiasis, for the patient has received adequate Diflucan 4-the patient bronchoscopy sample culture came back positive with stenotrophomonas that is resistant to Fortaz, also growing Achromobacter which is sensitive to Fortaz and should be covered with cefepime unfortunately we were not able to add Levaquin as the patient is on amiodarone and with his kidney function the Bactrim DS may not be a good idea either , the patient is afebrile and his white count is normal the patient will be continued on cefepime and monitor clinical course closely Time with Patient: Less than 30
[2022-02-26 11:51] LABS: Glucose,Whole Blood 140 mg/dL (70-110)
--- NOTE | 2022-02-26 12:34 | P.PN ---
Subjective Progress Note Date: 02/26/22 Principal diagnosis: Multiple right-sided rib fractures and a right sided pulmonary contusion with compression fractures of lumbar spine This is a extremely debilitated 61-year-old male patient who is known to monitor milligrams and comorbidities and I was asked to evaluate this patient because of a fall and limited hemoptysis. The patient is known to have a combination of i ssues including diabetes mellitus and diabetic peripheral neuropathy and the patient has had previous episodes of falls and he has issues with chronic atrial flutter maintained on long-term anticoagulation with warfarin. He is morbidly obese. He has hypertension and hyperlipidemia as comorbid conditions along with chronic kidney disease. He is morbidly obese. He has history of COPD and is a chronic smoker. He comes in to the hospital after he had a fall at home. He was the bathroom and he slept and he landed on his left chest. Here in the hospital, the patient was found to be Coumadin toxic and his INR was above 10. He did have some limited hemoptysis and coffee-ground emesis without any melanotic stools. No abdominal pain. He was noted to have a large ulcer over the right ankle/malleolus area which is a chronic wound. Immediately the patient was given vitamin K. This computed tomography scan of the chest shows some right lateral eighth through 10th rib fractures with trace amount of right- sided pleural effusion and right basilar atelectasis related to underlying pulmonary contusion. No evidence of any pneumothorax. Some limited patchy airspace disease in the left upper lobe probably inflammatory in the same time the patient had dilated pulmonary arteries indicating possibility of pulmonary hypertension and a fluid and gas-filled distended stomach. I noted the patient has not had a CAT scan of the brain and a CAT scan was done that showed no acute intracranial process. There was a remote left occipital lobe injury along with some nonspecific white matter changes secondary to chronic microangiopathy. This computed tomography scan of the lumbar spine showed acute anterior wedge compression deformity of L1 vertebral body with a 30% loss in height along with multilevel degenerative disc changes and a 7 mm In the right pelvis. Patient was already seen by general surgery and orthopedic surgery. Lumbar spine x-ray that was done on 2021 showed no acute fracture. The patient was also seen by vascular surgery for a right lateral foot wound and this is a stage II wound 8.5 x 4 cm in size. Debridement was done by vascular surgery. 02/22/2022, neurologically unchanged and the patient remains off sedation and is not following any commands. He is essentially the same as yesterday. He does movements and these are essentially nonpurposeful movements. I have asked neurology to reevaluate the patient for any further input. Meanwhile, he remains on a mechanical ventilator. The right lung is essentially opacified with a pleural effusion and atelectasis. I performed a bronchoscopy and remove mucous plug from the right lung. This caused some limited improvement. For the most part, the right lung is still opacified. He remains on assist control mode of mechanical ventilation at the rate of 24, tidal volume of 500, FiO2 of 60% and a PEEP of 8. Blood gases from today showed a pH of 7.37 with a pCO2 of 45 and pO2 of 75. The patient's condition essentially unchanged. He is hemodynamically stable. His still on minimal doses of pressors which is being weaned off and currently is on norepinephrine at 0.02 mcg/kg per minute.. He is afebrile and the repeat cultures from the bronchioloalveolar lavage of the right lung showed no microbial growth. Hemoglobin today is at 6.9. No signs of any active bleeding. Last hemodialysis session was yesterday and no plans for dialysis today. He is having bowel movement activity. She'll feeds were restarted and the patient is on vital high protein at the rate of 25. His rest of the blood work shows a white cell count of 8 with a hemoglobin of 6.9 and platelet count of 161. Sodium is 141 BUN is a 39 and a creatinine of 3.11. 02/23/2022, patient remains in the ICU, intubated, mechanically ventilated, not following any instructions or any commands. Patient opens eyes, but no responses whatsoever. He grimaces to painful stimuli only. He is on assist control rate of 24 to volume 500 FiO2 60% PEEP of 12. ABG showed a pO2 of 108 pCO2 42 pH of 7.39, hence his FiO2 was cut down from 60% to 50%. Patient is still requiring norepinephrine at 0.01 mcg/kg/m however his blood pressure was noted to be stable enough this morning and I recommended stopping norepinephrine. Remains on IV fluids at KVO, and he is on enteral feeding receiving vital Hb at 25 mL per hour which is his goal. Patient is still getting hemodialysis. Chest x-ray continues to show opacification of the right lung, ultrasound showed small pleural effusion does not correlate with the finding on the chest x-ray, and I am not planning thoracentesis since it is quite risky considering his body size. Not to mention the fluid is not large enough to be drained. Labs were reviewed that he set his 8 hemoglobin is 8.4 electrolytes are normal BUN is 46 creatinine 3.38. Pro-calcitonin remains a bit high at 1.38 blood sugar is 82 this morning. C-reactive protein is 5.6 Reevaluated today on 02/24/2022, remains in the ICU, intubated and mechanically ventilated. Patient is on assist control rate of 24 tidal volume 500 FiO2 50% PEEP of 12 ABG showed a pO2 of 99 pCO2 42 pH of 7.39 hence no changes were made in the ventilator settings. Patient has been off propofol now for the last 6 days and his mental status is not showing any improvement. Patient remains obtunded, not arousable not following any instructions, remains on cefepime, and her access, Flagyl, he is also on eliquis, is receiving vital HPI at 40 mL per hour. EEG yesterday showed severe encephalopathy no seizure activity. Today I had a chance to discuss his overall status with sister and girlfriend and recommended comfort care measures since the situation is seems to be hopeless. And the prognosis is extremely poor. Both seem reasonable, and they will think about it. They will let me know if they decide to proceed with comfort care measures. CBC is unremarkable hemoglobin is 7.7, no evidence of active bleeding. Basic metabolic profile is normal BUN is 42 creatinine 3.11 patient is on hemodialysis. Chest x-ray today showed improvement in his opacification of the right lung, did not require thoracentesis and did not require repeat bronchoscopy. reevaluated today on 02/25/22, patient remains in the ICU, intubated and mechan ically ventilated. He is on assist control rate of 24th of volume 500 FiO2 50% and PEEP of 12. ABG showed a pO2 of 108 pCO2 45 pH of 7.35. Patient is still requiring norepinephrine at 0.02 micrograms per kilo per minute, is also on IV fluid at KVO, remains on vital a PE at 70 mL per hour. Patient is not requiring any sedation, patient is on cefepime, Eraxis, eliquis, today after reviewing his ABG, recommended cutting down the PEEP down to 8.WBC count is 6.2 hemoglobin is 7.8.basic metabolic profile is unremarkable, BUN is 41 and creatinine 3.07, chest x-ray continues to show bilateral airspace disease, but the opacification of the right lung is significantly improved Reevaluated today on 02/27/20, patient remains in the ICU, intubated and mechanically ventilated. He is on assist control rate of 24, 1 500 FiO2 50% PEEP of 8. ABG showed a pO2 of 111 pCO2 43 pH of 7.38, hence his FiO2 was cut down to 45%. Today the patient is not requiring any norepinephrine however he had to be placed on norepinephrine yesterday briefly when he was getting hemodialysis. Remains on enteral feeding, remains off sedation, not requiring any propofol, and his overall status is basically about the same. Patient does not respond to any stimuli, opens eyes only, continues to have some repetitive m ovement of his tongue, no purposeful movement. WBC count today is 6.8 hemoglobin is 7.7, basic metabolic profile is normal BUN is 43 creatinine 2.69 chest x-ray basically is about the same, continues to have bibasilar airspace disease, and possibly some pleural effusion. Objective - Vital Signs Vital signs: Vital Signs Temp 98.9 F 02/26/22 08:00 Pulse 98 02/26/22 10:40 Resp 24 02/26/22 10:00 BP 124/71 02/26/22 10:00 Pulse Ox 99 02/26/22 10:00 FiO2 45 02/26/22 10:26 Intake & Output 02/25/22 02/26/22 02/26/22 18:59 06:59 18:59 Intake Total 1799 1340.615 732 Output Total 4895 115 20 Balance -3096 1225.615 712 Weight 153.2 kg 155.2 kg Intake: IV 649 253 342 0.9% Sodium Chloride @ 260 220 80 10mls/hr Anidulafungin 100 mg In 100 Sodium Chloride 0.9% 100 ml @ 84 mls/hr IVPB DAILY [facility] Rx#:[id number] Cefepime 1 gm In Sodium 50 50 Chloride 0.9% 50 ml @ 12. 5 mls/hr IVPB Q12HR [facility] Rx#:[id number] Pressure bags 39 33 12 levETIRAcetam IV 500 mg 100 In Sodium Chloride 0.9% 100 ml @ 400 mls/hr IVPB DAILY [facility] Rx#:[id number] metroNIDAZOLE-NS PMX 500 200 100 mg In Saline 1 100ml.bag @ 100 mls/hr IVPB Q8HR [facility] Rx#:[id number] Intake, IV Titration 200 7.615 Amount Norepinephrine 32 mg In 0 7.615 Sodium Chloride 0.9% 218 ml @ 0.05 MCG/KG/MIN 3. 246 mls/hr IV .Q24H [facility] Rx#:[id number] levETIRAcetam IV 500 mg 200 In Sodium Chloride 0.9% 100 ml @ 400 mls/hr IVPB 1400 [facility] Rx#:[id number] Tube Feeding 950 990 360 Other 90 30 Output: Urine 95 115 20 Hemodialysis 2400 Other 2400 Other: Voiding Method Indwelling Catheter Indwelling Catheter Indwelling Catheter # Bowel Movements 1 ABP, PAP, CO, CI - Last Documented Arterial Blood Pressure 132/59 - Exam GENERAL: Revealed a 61-year-old white male, intubated, mechanically ventilated, opens eyes to painful stimuli or verbal stimuli otherwise no other responses. Head atraumatic, normocephalic. Tracheostomy is intact EYES: Pupils equal. Conjunctiva normal. HEENT: External appearance of nose and ears normal, oral cavity grossly normal. NECK: JVD not raised; masses not palpable. HEART: Irregular irregular rhythm, normal S1 and S2, no S3 gallop, no murmur. LUNGS: Symmetrical chest expansion crackles at the bases diminished breath sounds on the right side ABDOMEN: Soft, distended, no megaly no rebound no guarding PSYCH: Could not assess patient remains obtunded Extremities: Bipedal edema noted. DERMATOLOGICAL: Large wound around the lateral malleolus right foot Gangrene Changes, wrapped with sterile dressing. Patient also has deep tissue injury to his coccyx/buttocks area MUSCULOSKELETAL:No Clubbing/cyanosis;muscles-grossly intact, NEUROLOGICAL: opens eyes, does not follow any instructions, he opens eyes to verbal stimuli only - Labs CBC & Chem 7: 02/26/22 04:28 02/26/22 04:28 Labs: Abnormal Lab Results - Last 24 Hours (Table) 02/20/22 02/25/22 02/25/22 Range/Units 15:40 18:09 23:31 RBC (4.30-5.90) m/uL Hgb (13.0-17.5) gm/dL Hct (39.0-53.0) % MCV (80.0-100.0) fL MCHC (31.0-37.0) g/dL RDW (11.5-15.5) % Plt Count (150-450) k/uL Lymphocytes # (1.0-4.8) k/uL ABG pO2 (83-108) mmHg ABG Total CO2 (19-24) mmol/L ABG O2 Saturation (94-97) % Sodium (137-145) mmol/L BUN (9-20) mg/dL Creatinine (0.66-1.25) mg/dL Glucose (74-99) mg/dL POC Glucose (mg/dL) 172 H 161 H (70-110) mg/dL Calcium (8.4-10.2) mg/dL Phosphorus (2.5-4.5) mg/dL Viral Test See Below A 02/26/22 02/26/22 02/26/22 Range/Units 04:28 04:28 04:28 RBC 2.59 L (4.30-5.90) m/uL Hgb 7.7 L (13.0-17.5) gm/dL Hct 26.0 L (39.0-53.0) % MCV 100.4 H (80.0-100.0) fL MCHC 29.8 L (31.0-37.0) g/dL RDW 19.2 H (11.5-15.5) % Plt Count 129 L (150-450) k/uL Lymphocytes # 0.8 L (1.0-4.8) k/uL ABG pO2 (83-108) mmHg ABG Total CO2 (19-24) mmol/L ABG O2 Saturation (94-97) % Sodium 136 L (137-145) mmol/L BUN 43 H (9-20) mg/dL Creatinine 2.69 H (0.66-1.25) mg/dL Glucose 143 H (74-99) mg/dL POC Glucose (mg/dL) (70-110) mg/dL Calcium 7.6 L (8.4-10.2) mg/dL Phosphorus 4.7 H (2.5-4.5) mg/dL Viral Test 02/26/22 02/26/22 02/26/22 Range/Units 05:49 05:53 11:49 RBC (4.30-5.90) m/uL Hgb (13.0-17.5) gm/dL Hct (39.0-53.0) % MCV (80.0-100.0) fL MCHC (31.0-37.0) g/dL RDW (11.5-15.5) % Plt Count (150-450) k/uL Lymphocytes # (1.0-4.8) k/uL ABG pO2 111 H (83-108) mmHg ABG Total CO2 27 H (19-24) mmol/L ABG O2 Saturation 99.3 H (94-97) % Sodium (137-145) mmol/L BUN (9-20) mg/dL Creatinine (0.66-1.25) mg/dL Glucose (74-99) mg/dL POC Glucose (mg/dL) 158 H 140 H (70-110) mg/dL Calcium (8.4-10.2) mg/dL Phosphorus (2.5-4.5) mg/dL Viral Test Assessment and Plan Assessment: Impression: Acute hypercapnic respiratory failure, intubated on 02/05/2022 underwent tracheostomy on 02/17 Status post tracheostomy on 02/17, patient was a failure to wean. Remains a failure to wean Acute metabolic encephalopathy Right sided rib fractures, traumatic, secondary to fall, Right sided pulmonary contusion. Anterior wedge compression fracture of L1 Hemoptysis secondary to contusion and exacerbated by Coumadin coagulopathy Underlying COPD and chronic smoking Coumadin toxicity with INR above 10 on admission, recovered History of frequent falls. Metabolic encephalopathy, acute, being addressed by neurology on the case. Chronic atrial fibrillation. Acute on Chronic kidney disease stage III. Stage II right ankle wound requiring debridement and positive for MSSA/staph aureus and strep agalactiae Positive bacteremia, however his blood cultures have been negative from 02/04 and 02/05. Diabetic peripheral neuropathy History of Nephrolithiasis Nonspecific colitis Perianal fistula Recommendation: Continue ventilatory support, and tracheostomy care. patient is not weanable at this point. Continue to hold sedation. Continue antibiotics, as per ID on the case. Continue IV fluid at KVO Continue hemodynamic monitoring, not requiring norepinephrine at this point Continue enteral feeding/nutritional support Continue GI and DVT prophylaxis Continue eliquis Continue bronchodilators Continue Keppra Continue Flagyl , continue cefepime. Continue metoprolol Continue amiodarone. Continue Levemir insulin 14 units at bedtime and sliding scale coverage Family is considering comfort care measures to be started on 03/03 since expecting family members coming out of state We will continue to follow. Critical care time is over 30 minutes Time with Patient: Greater than 30
--- NOTE | 2022-02-26 15:22 | P.PN ---
Subjective Progress Note Date: 02/26/22 The patient is seen at bedside and per his nurse she feels the tongue movement has not been as pronounced but otherwise about the same. ICU attending had family discussion and he notified me that possibly family is leading towards possible comfort care. Objective - Vital Signs Vital signs: Vital Signs Temp 99.1 F 02/26/22 12:00 Pulse 103 H 02/26/22 15:00 Resp 24 02/26/22 14:00 BP 126/77 02/26/22 15:00 Pulse Ox 99 02/26/22 15:00 FiO2 45 02/26/22 12:00 Intake & Output 02/25/22 02/26/22 02/26/22 18:59 06:59 18:59 Intake Total 1799 5110.416 6739 Output Total 4895 115 25 Balance -3096 2997.301 7432 Weight 153.2 kg 155.2 kg Intake: IV 649 253 457 0.9 260 220 180 Anidulafungin 100 mg In 100 Sodium Chloride 0.9% 100 ml @ 84 mls/hr IVPB DAILY [facility] Rx#:[id number] Cefepime 1 gm In Sodium 50 50 Chloride 0.9% 50 ml @ 12. 5 mls/hr IVPB Q12HR [facility] Rx#:[id number] Pressure bags 39 33 27 levETIRAcetam IV 500 mg 100 In Sodium Chloride 0.9% 100 ml @ 400 mls/hr IVPB DAILY [facility] Rx#:[id number] metroNIDAZOLE-NS PMX 500 200 100 mg In Saline 1 100ml.bag @ 100 mls/hr IVPB Q8HR [facility] Rx#:[id number] Intake, IV Titration 200 7.615 0 Amount Norepinephrine 32 mg In 0 7.615 0 Sodium Chloride 0.9% 218 ml @ 0.05 MCG/KG/MIN 3. 246 mls/hr IV .Q24H [facility] Rx#:[id number] levETIRAcetam IV 500 mg 200 In Sodium Chloride 0.9% 100 ml @ 400 mls/hr IVPB 1400 [facility] Rx#:[id number] Tube Feeding 950 990 810 Other 90 60 Output: Urine 95 115 25 Hemodialysis 2400 Other 2400 Other: Voiding Method Indwelling Catheter Indwelling Catheter Indwelling Catheter # Bowel Movements 1 ABP, PAP, CO, CI - Last Documented Arterial Blood Pressure 129/57 - Exam GENERAL: The patient is a morbid obese gentleman lying in bed and does not appear in acute distress. LUNG: Trach on ventilator. NEUROLOGICAL: Limited because of his condition. Not on sedation for past 8 days. Higher mental function: The patient is severely drowsy but would open his eye an d would turn head toward left when calling him. Not following commands or verbalizing. Cranial nerves: No facial twitching noted. Rare tongue protrusion with movement side to side. No facial weakness. Rest is limited. Motor: The strength is limited and not moving any extremities above gravity. Decrease tone throughout. . Sensation: Unable to assess light touch. - Labs CBC & Chem 7: 02/26/22 04:28 02/26/22 04:28 Labs: Abnormal Lab Results - Last 24 Hours (Table) 02/25/22 02/25/22 02/26/22 Range/Units 18:09 23:31 04:28 RBC 2.59 L (4.30-5.90) m/uL Hgb 7.7 L (13.0-17.5) gm/dL Hct 26.0 L (39.0-53.0) % MCV 100.4 H (80.0-100.0) fL MCHC 29.8 L (31.0-37.0) g/dL RDW 19.2 H (11.5-15.5) % Plt Count 129 L (150-450) k/uL Lymphocytes # 0.8 L (1.0-4.8) k/uL ABG pO2 (83-108) mmHg ABG Total CO2 (19-24) mmol/L ABG O2 Saturation (94-97) % Sodium (137-145) mmol/L BUN (9-20) mg/dL Creatinine (0.66-1.25) mg/dL Glucose (74-99) mg/dL POC Glucose (mg/dL) 172 H 161 H (70-110) mg/dL Calcium (8.4-10.2) mg/dL Phosphorus (2.5-4.5) mg/dL 02/26/22 02/26/22 02/26/22 Range/Units 04:28 04:28 05:49 RBC (4.30-5.90) m/uL Hgb (13.0-17.5) gm/dL Hct (39.0-53.0) % MCV (80.0-100.0) fL MCHC (31.0-37.0) g/dL RDW (11.5-15.5) % Plt Count (150-450) k/uL Lymphocytes # (1.0-4.8) k/uL ABG pO2 (83-108) mmHg ABG Total CO2 (19-24) mmol/L ABG O2 Saturation (94-97) % Sodium 136 L (137-145) mmol/L BUN 43 H (9-20) mg/dL Creatinine 2.69 H (0.66-1.25) mg/dL Glucose 143 H (74-99) mg/dL POC Glucose (mg/dL) 158 H (70-110) mg/dL Calcium 7.6 L (8.4-10.2) mg/dL Phosphorus 4.7 H (2.5-4.5) mg/dL 02/26/22 02/26/22 Range/Units 05:53 11:49 RBC (4.30-5.90) m/uL Hgb (13.0-17.5) gm/dL Hct (39.0-53.0) % MCV (80.0-100.0) fL MCHC (31.0-37.0) g/dL RDW (11.5-15.5) % Plt Count (150-450) k/uL Lymphocytes # (1.0-4.8) k/uL ABG pO2 111 H (83-108) mmHg ABG Total CO2 27 H (19-24) mmol/L ABG O2 Saturation 99.3 H (94-97) % Sodium (137-145) mmol/L BUN (9-20) mg/dL Creatinine (0.66-1.25) mg/dL Glucose (74-99) mg/dL POC Glucose (mg/dL) 140 H (70-110) mg/dL Calcium (8.4-10.2) mg/dL Phosphorus (2.5-4.5) mg/dL Assessment and Plan Assessment: * Right facial intermittent twitching: Possibly due to due to toxic-metabolic a bnormalities. Had multiple routine EEG's and was negative for seizure. * Severe Altered mental status due to multifactorial: Metabolic encephalopathy/uremic encephalopathy (getting dialysis) and septicemia from cellulitis of right foot ulcer. Also rule out seizure. Off sedation since 02/18/2022. * Abnormal tongue movement appears Tardive dyskinesia possibly due to metabolic derangement. * Cellulitis with right foot ulcer * Septicemia with staph aureus. * Status post fall with L1 compression fracture * Moderate renal insufficiency on dialysis * Ventilator-dependent respiratory failure, now has tracheostomy. * Coagulopathy * Right sided rib fractures secondary to fall. 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 * Peripheral edema. * Long-standing history of frequent falls, uses walker * COPD * Chronic tobacco use * Diabetes with hemoglobin A1c 8.1 * Probable diabetic peripheral neuropathy. * Peripheral arterial disease Plan: * Repeat CT of the head on 02/23/2022 was reported as no acute intracranial hemorrhage or midline shift. There is mild to moderate diffuse age-related cerebral atrophy and chronic small vessel ischemic changes redemonstrated. Subacute or old left occipital lobe infarct E but redemonstrated. New bilateral mastoid fluid or correlation could reflect acute mastoiditis in appropriate clinical setting, correlate clinically. I personally reviewed the CT and I agree with the report. * Repeat routine EEG on 02/23/2022 is abnormal. The study is limited because of the diffuse myogenic artifact because of his uncontrollable head movement and tongue movement. From the limited study the background severely slow and severely encephalopathic. Otherwise there is no focal slowing, performed discharge procedure on the EEG. * Continue Keppra 500mg once every 12 hours IV with an additional 500mg post dialysis for seizure prophylaxis. * Cannot obtain MRI Brain since has ventilator. * I.D. is on obard. * Pleas avoid any antidopamergic drugs. * Will defer the rest of medical management to the primary and ICU team. * The patient condition is critical and his quality of life is poor. Per ICU attending, family possibly considering comfort care. The plan is discussed with ICU attending. No additional work-up needed from neurological perspective. Please notify neurology team if any further concerns. Chava Jackson M.D. Neuro-Hospitalist. Time with Patient: Less than 30
--- NOTE | 2022-02-26 15:44 | P.PN ---
Progress Note - Text Progress Note Date: 02/26/22 Hospital course This is a 61-year-old patient who follows with Dr. Sridhar Chan. Chronic stable medical conditions include diabetes, hypertension, hyperlipidemia, chronic low back problems, cigarette smoker. At the baseline uses a walker. Patient slipped in the bathroom falling on his buttock. Was not able to get up. By the EMS report he had fallen 24 hours prior to the picking him up. Patient been complaining of pain in the right rib cage in the lower back. X-ray was negative for fracture. Patient continued to have significant pain especially with deep breathing. Patient also had a congestive cough and wheezing. Some bloody sputum. Denies any fever and chills. Patient also complaining of urinary retention and requesting a Shepard catheter. at the bedside. No fever no chills. Orthopedics consulted for the same. Patient normally has a bowel movement once a week. Patient also has a wound on the right foot lateral part of the ankles for about a week. Ischemic changes. From rubbing against a bedpost. Patient's INR in the ER was greater than 10. Was given vitamin K. 10 mg Patient bit with Coumadin toxicity, given vitamin K, acute COPD exacerbation, uncontrolled atrial flutter put on Lopressor, right chest wall pain. Computed tomography scan lumbar spine and chest was ordered. Large wound on the right lateral malleolus-ID and vascular consulted.. IV cefepime. February 01: Patient yesterday to see refused his computed tomography scan of the chest and lumbar spine. Done today. Right-sided rib fractures, pulmonary contusion confirm. L1 vertebral body 30% wedge compression fracture. Patient's girlfriend the bedside. It was discussed in detail with her. Patient wanting again and again to pull out his NG tube. Requests the to stay with the patient. Patient is also had the dark aspirate from the stomach for which she has NG tube. Surgery was consulted for the same. Also this morning right foot wound was debrided by Dr. Ibarra from vascular. Wound base was relatively clean. No undermining or tunneling. February 02: Delirious. NG tube to suction. Has been in restraints because point NG TUBE several times. Mumbling to himself. Dressing over the right ankle. Not in distress. Ileus. Chest x-ray showing right lower lobe/ate lectasis. February 03: Hospital computer system was down. Patient remains delirious. Nasal cannula. Lethargic. Family the bedside. Antibiotics. A. fib uncontrolled. EEG evidence of metabolic encephalopathy. No clear-cut epileptiform activity. Started on Keppra by neurology. February 04: ICU: Girlfriend at the bedside. In atrial fibrillation uncontrolled. On IV Cardizem and IV amiodarone. NG tube to suction. Patient lethargic. Multiple breathing. 2 L. Oxygen. February 05: ICU. Atrial fibrillation better controlled this morning. Cardizem discontinued. Patient respiratory status worsened this morning and patient is intubated. FiO2 45 and a PEEP of 5. Atrial fibrillation, controlled. Drips include amiodarone, propofol, levo fed. Discussed with girlfriend the bedside. Understands prognosis guarded. February 06: ICU: Ventilated. FiO2 45 and a PEEP of 5. NG tube is clamped. On IV propofol. Sedated. Heart rate better controlled. Was started on Coumadin yesterday. Worsening renal function. Nephrology consulted. 02/07/2022 Patient is currently in the MICU and on mechanical ventilator. Tidal volume of 400, FiO2 40% and PEEP of 5. Patient is off pressor support today. Currently on propofol and is also on tube feeding. Chest x-ray showed stable exam with stable support lines and tubes. Correlate for congestive heart failure. Patient was given a dose of IV Lasix. Laboratory data showed WBC 18.4 hemoglobin 11.6 and platelets 458 Sodium 141 potassium 3.7 chloride 103 bicarb is 18 BUN 49 and creatinine 3.73 and calcium 7.3. INR is 2.2. Patient is being followed by nephrology cardiology and critical care team. 02/08/2022 Patient is currently on mechanical ventilator and sedated with propofol. Assist control with FiO2 40% and tidal volume of 400 and PEEP of 5. Patient is being continued on antibiotics above cefepime and Flagyl. Sputum gram stain gram-negative bacilli and Lynda. Chest x-ray today showed findings suggestive of slightly worsening CHF exacerbation as there is cardiomegaly with mild to moderate central venous congestion and small to moderate-sized bilateral pleural effusion. Laboratory test showed WBC increased to 23.6 hemoglobin 9.1 and platelets 162 INR 3.0 Sodium 139 potassium 4.3 chloride 113 bicarb is 40 BUN 54 and creatinine worsening to 4.36 February 09: I resumed the care of patient today ICU: Med: 40/5. Received vitamin K 5 mg IV to bring the INR down for dialysis catheter. Drips include bicarbonate, propofol, epinephrine. Patient is a stage II coccyx is ulcer. Plan is to change the NG tube to on G-tube today. For possible colitis/fistula on antibiotics. at the bedside. February 10: ICU. Ventilator 50/5. Hemodialysis catheter placed last night. Hemodialyzed yesterday and getting dialyzed today. Remains in atrial fibrillation heart rate uncontrolled. Getting up sedation holiday. Drips include bicarbonate and norepinephrine. Propofol currently held. 2 feeding at 46 mL an hour. Does open eyes. February 11: ICU. Ventilator. 50/5. Third day for hemodialysis. 1.5 L to be removed today. Back on propofol. Drips include bicarbonate, norepinephrine, propofol. On G-tube feeding. Patient back in sinus rhythm. Bag and tracheostomy to planning for next week. 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 IV antifungal started by ID. February 12: ICU: Ventilator: 40/5. Telemetry shows sinus rhythm. Drips include propofol and norepinephrine. On G-tube feeding. Discussed with the at the bedside. Understands prognosis guarded. IV antibiotics and antifungals. February 13: ICU: Ventilator: 40/5. PEG tube placed yesterday by Dr. Cornejo. Drips include bicarbonate, propofol, norepinephrine. Getting hemodialysis done today. February 14: ICU: Medicated. 2 feeding at 65 mL an hour. This included propofol and norepinephrine. Hemodialysis done today. Sinus rhythm. February 15: ICU: Ventilator: 40/5. 2 feeding at 65 mL an hour. Drips include propofol and norepinephrine. No hemodialysis today. at the bedside. Discussed. 02/16/2022 Patient seen and evaluated and follow-up continues to be in the ICU on mechanical ventilation with sedation with multiple medical consultations following. Patient is currently receiving hemodialysis and continues with a temporary dialysis catheter. Patient is still full code and overall prognosis remains extremely poor and guarded. Patient's FiO2 is 40% with a PEEP of 5. Patient also continues on antifungal along with cefepime and metronidazole with infectious disease following. Patient is sedated on propofol continues on Levophed as well. WBC is 12.9 with hemoglobin of 8.7, sodium is 134 with a potassium of 4.5 current creatinine is 4.69 with a BUN of 66. Patient is maintained on tube feedings and has received the PEG tubing is scheduled for tracheostomy tentatively today if OR available. Again overall prognosis remains extremely guarded. 02/17/2022 Patient continues to be in the ICU on mechanical vent and FiO2 remains 40% with a PEEP of 5. Patient continues on norepinephrine with multiple medical consultations following. Patient continues on propofol for sedation and also was maintained on hemodialysis almost daily. Patient continues on cefepime along with an antifungal and Flagyl with anxiety following sputum culture showing 16 oh troph ammonias maltophilia with Lynda most recent blood cultures have been negative. Patient is afebrile although WBC is elevated at 14.5 and hemoglobin is 8.9, BUN is 61 with a creatinine of 4.55, sodium is 135 and sodium bicarb tablets have been discontinued. Magnesium was 1.9. Plan is tentatively scheduled for tracheostomy with general surgery today post hemodialysis. Overall prognosis is extremely guarded. Chest x-ray shows continued bilateral pleural effusions with no significant change from previous day. Patient is maintained on tube feedings via PEG tube although on hold for surgery today 02/18/2022 Patient is seen and evaluated continues to be in the ICU with multiple medical consultations following. Patient is status post tracheostomy placement with Dr. Villegas yesterday evening and tolerating well with no leaks noted. Patient continues on FiO2 of 40% with a PEEP of 5. Patient undergoing sedation holiday and propofol was recently turned off. Patient is awake and opening eyes spontaneously although not following commands on exam. Patient is looking around the room and mouthing words with no comprehension. Patient with extensive wounds of the sacro-coccyx region that are currently unstageable and general surgery is following and may possibly require debridement of these areas. Patient is status post debridement of the right foot previously. Patient is maintained on antibiotics along with antifungal's and infectious disease is following. Patient is afebrile and WBC is 10.6, hemoglobin is 8.4, patient is also with a BUN of 50 and creatinine is 3.78, magnesium is 1.8. Patient is being closely monitored by nephrology with a temporary site of the right femoral receiving daily dialysis. Patient continues on low-dose Levophed and working on weaning as tolerated. PEG tube feedings are at goal and t olerating. Overall prognosis remains extremely guarded. 02/19/2022 Patient is seen in follow-up this morning and has been off propofol since yesterday although continues to not follow commands. Multiple medical consultations following. Patient is status post recent tracheostomy and also PEG tube placement and has been resumed on tube feedings and tolerating at goal. Patient is continuing on hemodialysis with a right groin temporary catheter. Chest x-ray this morning shows some possible progression of pleural effusions and airspace disease or atelectasis especially in the right lung. Nursing staff questioning about anticoagulation and his Coumadin was on hold for tracheostomy and patient is being started on eliquis. Patient continues on antibiotics as well in the form of cefepime and Flagyl and antifungal's with anxiety following. Patient also continues on low-dose Levophed. Patient continues on mechanical ventilation via tracheostomy with an FiO2 of 60. Patient scheduled to receive dialysis again today. General surgery is following and may be required for debridement of the decubitus ulcers once more stable. Pulmonary discussing possible thoracentesis in the near future. Patient is currently afebrile. Prognosis remains extremely guarded. February 20: Patient was being covered by [facility] last 4 days. ICU. Ventilator. FiO2 16 a PEEP of 8. Has a PEG and trach. Awake, drowsy. On norepinephrine. at the bedside. February 21: ICU: Ventilator. FiO2 60 PEEP of 8. Hemodialysis today. Drips include norepinephrine. Sinus tachycardia. Does open eyes. Sticks his tongue. Drowsy. Not really following commands February 22: ICU: Ventilator. FiO2 16 a PEEP of 8. Patient is in and out of atrial fibrillation. Does open eyes and sticks his tongue out intermittently. Nonpurposeful. Currently on levo fed drip small dose. Midodrine has been added. 2 feeding at 25 mL an hour. at the bedside. February 23: ICU: Ventilator. FiO2 50 PEEP of 12. Drips include norepinephrine. Decreased Accu-Chek. tube feeding increased. February 24: ICU: Ventilator: FiO2 50 and a PEEP of 12. 2 feeding at 40. Patient is off levo fed. Lethargic. EEG yesterday showed encephalopathy obvious evidence of seizure. Keppra ordered per neurology. Ultrafiltration hemodialysis today. Significant edema. February 25: ICU: Ventilator: FiO2 50 and a PEEP of 8. Atrial fibrillation rate controlled. 2 feeding at 90 mL an hour. On a small dose of epinephrine. Patient lethargic. Dr. Ryan met with the family yesterday. Comfort measures were suggested. Family will talk further. February 26: ICU: Ventilator. Atrial fibrillation. Lethargic. Family looking into comfort measures. Waiting for family to come in from out of state. Active Medications Acetaminophen (Acetaminophen Tab 325 Mg Tab) 650 mg PO Q6HR PRN PRN Reason: Mild Pain or Fever > 100.5 Albuterol/Ipratropium (Ipratropium-Albuterol 3 Ml Neb) 3 ml INHALATION RT-QID [facility] Last Admin: 02/26/22 10:26 Dose: 3 ml Amiodarone HCl (Amiodarone 200 Mg Tab) 200 mg PO BID [facility] Last Admin: 02/26/22 09:18 Dose: 200 mg Apixaban (Apixaban 2.5 Mg Tablet) 2.[address] [facility]; Protocol Last Admin: 02/26/22 09:18 Dose: 2.5 mg Artificial Tears (Artificial Tears-Hypromellose Drops 15 Ml Btl) 2 drops BOTH EYES TID PRN PRN Reason: Dry Eye(s) Budesonide (Budesonide 1 Mg/2 Ml Nebu) 1 mg INHALATION RT-BID [facility] Last Admin: 02/26/22 07:04 Dose: 1 mg Calcium Acetate (Calcium Acetate 667 Mg Tab) 667 mg PO TID-W/MEALS [facility] Last Admin: 02/26/22 12:24 Dose: 667 mg Calcium Carbonate/Glycine (Calcium Carbonate 500 Mg Chewable) 1,000 mg PO Q4HR PRN PRN Reason: Dyspepsia Last Admin: 01/31/22 14:29 Dose: 1,000 mg Chlorhexidine Gluconate (Chlorhexidine Gluconate 15 Ml Cup) [address] [facility] Last Admin: 02/26/22 09:18 Dose: 15 ml Collagenase (Collagenase 250 Unit/Gm Ointment 30 Gm Tube) 1 applic TOPICAL DAILY [facility]; Protocol Last Admin: 02/26/22 09:19 Dose: 1 applic Darbepoetin Mann (Darbepoetin Mann 60 Mcg/0.3 Ml Syringe) [address] [facility] Last Admin: 02/25/22 18:05 Dose: 60 mcg Dextrose/Water (Dextrose 50% Syringe 50 Ml) 25 ml IVP PER PROTOCOL PRN; Protocol PRN Reason: Hypoglycemia Last Admin: 02/23/22 05:39 Dose: 25 ml Dextrose/Water (Dextrose 50% Syringe 50 Ml) 50 ml IVP PER PROTOCOL PRN; Jennifer col PRN Reason: Hypoglycemia Metronidazole 500 mg/ IV (Solution) 100 mls @ 100 mls/hr IVPB Q8HR [facility]; Protocol Last Admin: 02/26/22 07:55 Dose: 100 mls/hr Cefepime HCl 1 gm/ Sodium (Chloride) 50 mls @ 12.5 mls/hr IVPB Q12HR [facility] Last Admin: 02/26/22 09:18 Dose: 12.5 mls/hr Norepinephrine Bitartrate 32 (mg/ Sodium Chloride) 250 mls @ 3.246 mls/hr IV .Q24H [facility]; Protocol Last Titration: 02/26/22 14:33 Dose: 0.01 mcg/kg/min, 0.649 mls/hr Levetiracetam 500 mg/ Sodium (Chloride) 105 mls @ 400 mls/hr IVPB Q12HR [facility] Last Admin: 02/26/22 09:19 Dose: 400 mls/hr Levetiracetam 500 mg/ Sodium (Chloride) 105 mls @ 400 mls/hr IVPB 1400 [facility] Last Admin: 02/25/22 15:36 Dose: 400 mls/hr Insulin Aspart (Insulin Aspart (Novolog) 100 Unit/Ml Vial) [address] [facility]; Protocol Last Admin: 02/26/22 12:14 Dose: Not Given Lactulose (Lactulose 20 Gm/30 Ml Cup) [address] [facility] Last Admin: 02/26/22 09:19 Dose: 30 gm Metoprolol Tartrate (Metoprolol Tartrate 25 Mg Tab) [address] [facility] Last Admin: 02/26/22 09:19 Dose: 25 mg Midodrine (Midodrine 5 Mg Tab) 10 mg PO AC-TID [facility] Last Admin: 02/26/22 12:00 Dose: Not Given Miscellaneous Information (Potassium Replacement Protocol 1 Each Misc) 1 each MISCELLANE DAILY PRN; Protocol PRN Reason: Per Protocol Miscellaneous Information (Magnesium Replacement Protocol 1 Each Misc) 1 each MISCELLANE DAILY PRN; Protocol PRN Reason: Per Protocol Naloxone HCl (Naloxone 0.4 Mg/Ml 1 Ml Vial) 0.2 mg IV Q2M PRN PRN Reason: Opioid Reversal Ondansetron HCl (Ondansetron 4 Mg/2 Ml Vial) 4 mg IVP Q8HR PRN PRN Reason: Nausea And Vomiting Last Admin: 02/02/22 08:41 Dose: 4 mg Pantoprazole Sodium (Pantoprazole 40 Mg/10 Ml Vial) [address] [facility] Last Admin: 02/26/22 09:19 Dose: 40 mg Pregabalin (Pregabalin 100 Mg Cap) [address] [facility] Last Admin: 02/26/22 09:19 Dose: 100 mg Past medical history to include: COPD, diabetes, hypertension, hyperlipidemia, back problems, TB, atrial fibrillation, on Coumadin Social history: Smokes a pack a day for close to 50 years. Stop doing alcohol some time ago. Lives with his significant other Sandra. Does use a walker. 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 Conjunctiva normal. HEENT: External appearance of nose and ears normal, oral cavity dry, tracheostomy NECK: JVD not raised; masses not palpable. HEART: Heart sounds regular; edema present LUNGS: Respiratory rate increased; decreased breath sound, ABDOMEN: Soft, distended, nontender, liver spleen not palpable, no masses palpable. PEG tube. PSYCH: Unable to assess, patient lethargic DERMATOLOGICAL: Wound on right ankle lateral malleolus. Under dressing. Stage II coccygeal breakdown. See nursing notes INVESTIGATIONS, reviewed in the clinical context: February 26: WBC 6.8 hemoglobin 7.7 platelets 129 potassium 4 BUN 43 creatinine 2.69 February 25: Potassium 4.2 BUN 41 crit and 3.07 February 24: WBC 6.2 hemoglobin 7.7 platelets 163 potassium 4.3 BUN 42 creatinine 3.11 February 15: WBC 13.9 hemoglobin 9.6 platelets 96 potassium 4.4 BUN 59 creatinine 4.21 procalcitonin 2.05 Acute hepatitis screen: Negative Complement C3 78, complement C4 19.6 February 11: Sodium 138 potassium 4.4 creatinine 4.19 Sputum: Stenostrophonas maltophilia, Lynda albicans Computed tomography scan abdomen and pelvis [February 06] 6 mm stone in the right renal collecting system. Some circumferential wall thickening of the cecum and ascending colon. Distention of the rectum 7.5 cm with solid stool. EEG: Evidence of encephalopathy. No obvious epileptiform activity. 2-D echocardiogram: EF 60-65%. Renal ultrasound: Shows bilateral normal cortical medullary thickness. February 01: WBC 17.1 hemoglobin 14.8 UA: Blood large, leukoesterase moderate WBC 28 nitrite negative Lumbar spine CT: Anterior wedge compression deformity of L1. Multiple level DJD. 7 mm calculus right renal pelvis. CT chest without contrast: Right lateral eighth through 10th rib fractures with associated gas trace hemothorax right lower lobe pulmonary c ontusion/atelectasis. Patchy) disease left upper lobe. WBC 25.8 hemoglobin 14.1 platelets 217 INR greater than 10 sodium 131 potassium 3.9. 24 creatinine 1.8 to EKG tracing personally reviewed by me-atrial flutter. Rate 132 Foot/Lumbar/sacral coccyx: Spondylitic changes. No fracture. Chest x-ray film personally reviewed by me-clinically. Possible hyperinflation Assessment and plan: -Coumadin toxicity. INR greater than 10. On presentation: 10 mg vitamin K in the ER. Hemoptysis on presentation. Coumadin resumed on February 05.. - right lung contusion.-Secondary to fall. hemoptysis on presentation -Pneumonia, secondary to Stenostrophonas maltophilia, Lynda albicans: Slow to respond IV cefepime, IV anidulafungin -Sepsis with positive blood cultures MSSA, likely source right ankle. From January 31. IV cefepime. February 04 blood culture negative -Acute hypoxic respiratory failure multifactorial including pneumonia/COPD. Ventilator assisted: Slow to respond FiO2 50% -Acute hypoxic respiratory failure, multifactorial: ventilator support,: Slow to respond Patient intubated on February 05 -Acute COPD exacerbation, with chronic bronchitis component in a current smoker: Slow to respond DuoNeb. Nebulized Pulmicort. Mucinex. -Chronic nicotine dependence, cigarette smoker Nicotine patch -Paroxysmal atrial flutter,: Back in sinus rhythm Lopressor 50 mg 3 times a day. 2-D echocardiogram unremarkable. Oral amiodarone Coumadin started on February 05 -Possible CK D with possible acute component. creatinine was 0.8 in April 2019. Renal ultrasound unremarkable. UA shows trace protein. IV fluids.. -Acute kidney injury, ATN, likely cardiorenal syndrome.: Not improving Follow with nephrology. Daily Hemodialysis started February 09 -Acute right-sided 8-10 ribs fracture secondary to fall K pad -Diabetes mellitus type 2, chronically on oral hypoglycemic Sliding scale insulin. Increase tube feeding. DC Levemir -Diabetic peripheral neuropathy Decreased dose of Lyrica in the setting of renal failure. 100 mg twice a day -Chronic low back pain: MS Contin 15 mg every 12, [place] 7.5 twice a day when necessary -Anxiety depression not otherwise specified Wellbutrin XL 100 mg twice a day -Hyperlipidemia Lipitor 40 mg daily at bedtime -Right ankle lateral, diabetic wound, stage II acute. Wound culture positive for Streptococcus agalactiae and Staphylococcus aureus. IV Ancef initially. Follow with ID Patient has poor distal pulses. February 01 wound was debrided by Dr. Ibarra. Clean base. -Acute L1 30% wedge fracture secondary to fall LSO brace. Be followed by Dr. Damon -Acute delirium multifactorial. Slow to respond -Acute ileus, NG tube for decompression.; clamped.: Corrected Being followed by surgery. -Possible colitis /fistula on computed tomography scan. IV Flagyl. Cefepime. Followed by surgery -Normocytic anemia, multifactorial. Chronic disease component, hospital- acquired/blood draw and infection. Suspicions hypotensive requiring levo fed will transfuse a unit of blood. IV Flagyl,/IV cefepime Prognosis poor continue current management treatment plan. Family considering comfort care.
[2022-02-26 17:32] LABS: Glucose,Whole Blood 161 mg/dL (70-110)
--- NOTE | 2022-02-26 19:49 | XR ---
EXAMINATION: XR chest 1V portable DATE AND TIME: 02/26/2022 7:43 PM CLINICAL INDICATION: PHH; increased O2 demands TECHNIQUE: Portable AP semiupright COMPARISON: 02/26/2022 5:39 AM FINDINGS: ET tube tip superimposed over the mid trachea. Right subclavian central line tip superimposed over th e distal SVC. EKG leads. Diffuse haze over the lower and mid lung zones, right greater than left, consistent with gravity depe ndent moderate pleural effusions. There is associated partial airlessness of the lung bases, likely a telectasis, concurrent bronchopneumonia can be clinically considered. No evidence of pneumothorax, but semiupright patient positioning limit sensitivity for this diagnosis . IMPRESSION: Overall similar lung inflation pattern when compared to the prior radiograph. No new process evident.
[2022-02-26 23:34] LABS: Glucose,Whole Blood 163 mg/dL (70-110)
[2022-02-27 05:07] LABS: Calcium 7.8 mg/dL (8.4-10.2); Potassium 4.2 mmol/L (3.5-5.1)
[2022-02-27 05:44] LABS: ABG Base Excess 0.1 mmol/L; ABG HCO3 25 mmol/L (21-25); ABG Oxygen Saturation 98.8 % (94-97); ABG PCO2 40 mmHg (35-45); ABG PO2 105 mmHg (83-108); ABG TCO2 26 mmol/L (19-24); Allen Test Performed? Yes
[2022-02-27] MEDS: INSULIN ASPART (NovoLOG) 100 UNIT/ML VIAL SQ SCH ×3 (05:51→16:59)
[2022-02-27 05:52] LABS: Glucose,Whole Blood 136 mg/dL (70-110)
[2022-02-27] MEDS: MIDODRINE 5 MG TAB PO SCH ×4 (06:41→16:59)
[2022-02-27] MEDS: CALCIUM ACETATE 667 MG TAB PO SCH ×3 (06:41→16:59)
[2022-02-27] MEDS: NOREPINEPHRINE 32 MG in SODIUM CHLORIDE 0.9% 218 ML IV SCH (07:42)
[2022-02-27] MEDS: BUDESONIDE 1 MG/2 ML NEBU INHALATION SCH ×2 (07:43→19:48)
[2022-02-27] MEDS: IPRATROPIUM-ALBUTEROL 3 ML NEB INHALATION SCH ×4 (07:43→19:48)
[2022-02-27] MEDS: metroNIDAZOLE-NS PMX 500 MG in SALINE 1 100ML.BAG IVPB SCH ×2 (07:44→15:36)
[2022-02-27] MEDS: LACTULOSE 20 GM/30 ML CUP PO SCH (08:56)
--- NOTE | 2022-02-27 09:06 | P.PN ---
Subjective Patient is seen in follow-up for acute kidney injury. Started on hemodialysis 02/09/2022. Currently off vasopressors. Receiving tube feeds. Plan for comfort care next week. Vital signs are stable. General: Resting in bed. HEENT: Tracheostomy noted. LUNGS: Breath sounds decreased. HEART: Rate and Rhythm are regular. ABDOMEN: Soft, no distention. EXTREMITITES: 1+ edema. Scrotal edema noted. Objective - Vital Signs Vital signs: Vital Signs Temp 98.2 F 02/27/22 04:00 Pulse 72 02/27/22 08:09 Resp 24 02/27/22 07:00 BP 112/59 02/27/22 07:00 Pulse Ox 100 02/27/22 07:00 FiO2 45 02/27/22 07:43 Intake & Output 02/26/22 02/27/22 02/27/22 18:59 06:59 18:59 Intake Total 1031.773 1371.424 143 Output Total 4525 135 5 Balance -2728.254 1096.424 138 Weight 155.3 kg Intake: IV 626 299 23 0.9 240 260 20 Cefepime 1 gm In Sodium 50 Chloride 0.9% 50 ml @ 12. 5 mls/hr IVPB Q12HR [facility] Rx#:[id number] Pressure bags 36 39 3 levETIRAcetam IV 500 mg 200 In Sodium Chloride 0.9% 100 ml @ 400 mls/hr IVPB DAILY [facility] Rx#:[id number] metroNIDAZOLE-NS PMX 500 100 mg In Saline 1 100ml.bag @ 100 mls/hr IVPB Q8HR [facility] Rx#:[id number] Intake, IV Titration 0.746 2.424 Amount Norepinephrine 32 mg In 0.746 2.424 Sodium Chloride 0.9% 218 ml @ 0.05 MCG/KG/MIN 3. 246 mls/hr IV .Q24H [facility] Rx#:[id number] Tube Feeding 1080 900 90 Other 90 30 30 Output: Urine 25 135 5 Hemodialysis 4500 Other: Voiding Method Indwelling Catheter Indwelling Catheter ABP, PAP, CO, CI - Last Documented Arterial Blood Pressure 162/59 - Labs CBC & Chem 7: 02/26/22 04:28 02/27/22 04:33 Labs: Abnormal Lab Results - Last 24 Hours (Table) 02/26/22 02/26/22 02/26/22 Range/Units 04:28 11:49 17:31 ABG Total CO2 (19-24) mmol/L ABG O2 Saturation (94-97) % BUN (9-20) mg/dL Creatinine (0.66-1.25) mg/dL Glucose (74-99) mg/dL POC Glucose (mg/dL) 140 H 161 H (70-110) mg/dL Calcium (8.4-10.2) mg/dL Phosphorus 4.7 H (2.5-4.5) mg/dL 02/26/22 02/27/22 02/27/22 Range/Units 23:32 04:33 05:42 ABG Total CO2 26 H (19-24) mmol/L ABG O2 Saturation 98.8 H (94-97) % BUN 41 H (9-20) mg/dL Creatinine 2.68 H (0.66-1.25) mg/dL Glucose 128 H (74-99) mg/dL POC Glucose (mg/dL) 163 H (70-110) mg/dL Calcium 7.8 L (8.4-10.2) mg/dL Phosphorus (2.5-4.5) mg/dL 02/27/22 Range/Units 05:50 ABG Total CO2 (19-24) mmol/L ABG O2 Saturation (94-97) % BUN (9-20) mg/dL Creatinine (0.66-1.25) mg/dL Glucose (74-99) mg/dL POC Glucose (mg/dL) 136 H (70-110) mg/dL Calcium (8.4-10.2) mg/dL Phosphorus (2.5-4.5) mg/dL Assessment and Plan Plan: Assessment: 1. Acute kidney injury secondary to ATN secondary to septic shock. Started on hemodialysis 02/09/2022. Oliguric. Creatinine in April 2019 was 0.8. Creatinine was as low as 1.62 this admission. No hydronephrosis noted on CAT scan. 2. MSSA bacteremia with likely source being right foot ulcer. Also component of pneumonia. ID following. On antibiotics. Also on antifungal. 3. A. fib. Cardiology following. On amiodarone and beta donovan. 4. Metabolic acidosis secondary to acute kidney injury. Stable. 5. Diabetes mellitus. 6. Hyperphosphatemia secondary to acute kidney injury. on PhosLo. Phosphorus level 4.7 dated 02/26/2022. 7. Volume overload. Improved with ultrafiltration. Still quite edematous. Status post bronchoscopy 02/20/2022 with removal of mucous plugs and bronchioloalveolar lavage. 8. Anemia. Iron replete. On Aranesp. Hemoglobin 7.7 yesterday. No active bleeding. Plan: Hemodialysis today and again tomorrow mostly for volume overload. Stopped Demadex as patient has no urine output. No response to IV Lasix given 02/17/2022. Maintain tube feeds. Maintain midodrine. Hold for systolic blood pressure greater than 115. Continue to monitor for renal recovery. Serologies negative except C3 slightly low. Per family, plan to proceed with comfort measures 03/03/2022.
[2022-02-27] MEDS: AMIODARONE 200 MG TAB PO SCH ×2 (09:12→22:45)
[2022-02-27] MEDS: APIXABAN 2.5 MG TABLET PO SCH ×2 (09:12→22:46)
[2022-02-27] MEDS: CEFEPIME 1 GM in SODIUM CHLORIDE 0.9% 50 ML IVPB SCH ×2 (09:12→22:53)
[2022-02-27] MEDS: PREGABALIN 100 MG CAP PO SCH ×2 (09:13→22:46)
[2022-02-27] MEDS: levETIRAcetam IV 500 MG in SODIUM CHLORIDE 0.9% 100 ML IVPB SCH ×3 (09:13→22:46)
[2022-02-27] MEDS: CHLORHEXIDINE GLUCONATE 15 ML CUP MUCOUS MEM SCH ×2 (09:13→22:45)
[2022-02-27] MEDS: METOPROLOL TARTRATE 25 MG TAB PO SCH ×2 (09:13→22:46)
[2022-02-27] MEDS: COLLAGENASE 250 UNIT/GM OINTMENT 30 GM TUBE TOPICAL SCH (09:14)
[2022-02-27] MEDS: PANTOPRAZOLE 40 MG/10 ML VIAL IVP SCH ×2 (09:15→22:54)
[2022-02-27 10:07] VITALS: BMI 45.1
[2022-02-27 12:01] LABS: Glucose,Whole Blood 160 mg/dL (70-110)
[2022-02-27 12:12] LABS: Glucose,Whole Blood 134 mg/dL (70-110)
--- NOTE | 2022-02-27 12:15 | P.PN ---
Subjective Progress Note Date: 02/27/22 Principal diagnosis: Multiple right-sided rib fractures and a right sided pulmonary contusion with compression fractures of lumbar spine This is a extremely debilitated 61-year-old male patient who is known to monitor milligrams and comorbidities and I was asked to evaluate this patient because of a fall and limited hemoptysis. The patient is known to have a combination of i ssues including diabetes mellitus and diabetic peripheral neuropathy and the patient has had previous episodes of falls and he has issues with chronic atrial flutter maintained on long-term anticoagulation with warfarin. He is morbidly obese. He has hypertension and hyperlipidemia as comorbid conditions along with chronic kidney disease. He is morbidly obese. He has history of COPD and is a chronic smoker. He comes in to the hospital after he had a fall at home. He was the bathroom and he slept and he landed on his left chest. Here in the hospital, the patient was found to be Coumadin toxic and his INR was above 10. He did have some limited hemoptysis and coffee-ground emesis without any melanotic stools. No abdominal pain. He was noted to have a large ulcer over the right ankle/malleolus area which is a chronic wound. Immediately the patient was given vitamin K. This computed tomography scan of the chest shows some right lateral eighth through 10th rib fractures with trace amount of right- sided pleural effusion and right basilar atelectasis related to underlying pulmonary contusion. No evidence of any pneumothorax. Some limited patchy airspace disease in the left upper lobe probably inflammatory in the same time the patient had dilated pulmonary arteries indicating possibility of pulmonary hypertension and a fluid and gas-filled distended stomach. I noted the patient has not had a CAT scan of the brain and a CAT scan was done that showed no acute intracranial process. There was a remote left occipital lobe injury along with some nonspecific white matter changes secondary to chronic microangiopathy. This computed tomography scan of the lumbar spine showed acute anterior wedge compression deformity of L1 vertebral body with a 30% loss in height along with multilevel degenerative disc changes and a 7 mm In the right pelvis. Patient was already seen by general surgery and orthopedic surgery. Lumbar spine x-ray that was done on 2021 showed no acute fracture. The patient was also seen by vascular surgery for a right lateral foot wound and this is a stage II wound 8.5 x 4 cm in size. Debridement was done by vascular surgery. 02/22/2022, neurologically unchanged and the patient remains off sedation and is not following any commands. He is essentially the same as yesterday. He does movements and these are essentially nonpurposeful movements. I have asked neurology to reevaluate the patient for any further input. Meanwhile, he remains on a mechanical ventilator. The right lung is essentially opacified with a pleural effusion and atelectasis. I performed a bronchoscopy and remove mucous plug from the right lung. This caused some limited improvement. For the most part, the right lung is still opacified. He remains on assist control mode of mechanical ventilation at the rate of 24, tidal volume of 500, FiO2 of 60% and a PEEP of 8. Blood gases from today showed a pH of 7.37 with a pCO2 of 45 and pO2 of 75. The patient's condition essentially unchanged. He is hemodynamically stable. His still on minimal doses of pressors which is being weaned off and currently is on norepinephrine at 0.02 mcg/kg per minute.. He is afebrile and the repeat cultures from the bronchioloalveolar lavage of the right lung showed no microbial growth. Hemoglobin today is at 6.9. No signs of any active bleeding. Last hemodialysis session was yesterday and no plans for dialysis today. He is having bowel movement activity. She'll feeds were restarted and the patient is on vital high protein at the rate of 25. His rest of the blood work shows a white cell count of 8 with a hemoglobin of 6.9 and platelet count of 161. Sodium is 141 BUN is a 39 and a creatinine of 3.11. 02/23/2022, patient remains in the ICU, intubated, mechanically ventilated, not following any instructions or any commands. Patient opens eyes, but no responses whatsoever. He grimaces to painful stimuli only. He is on assist control rate of 24 to volume 500 FiO2 60% PEEP of 12. ABG showed a pO2 of 108 pCO2 42 pH of 7.39, hence his FiO2 was cut down from 60% to 50%. Patient is still requiring norepinephrine at 0.01 mcg/kg/m however his blood pressure was noted to be stable enough this morning and I recommended stopping norepinephrine. Remains on IV fluids at KVO, and he is on enteral feeding receiving vital Hb at 25 mL per hour which is his goal. Patient is still getting hemodialysis. Chest x-ray continues to show opacification of the right lung, ultrasound showed small pleural effusion does not correlate with the finding on the chest x-ray, and I am not planning thoracentesis since it is quite risky considering his body size. Not to mention the fluid is not large enough to be drained. Labs were reviewed that he set his 8 hemoglobin is 8.4 electrolytes are normal BUN is 46 creatinine 3.38. Pro-calcitonin remains a bit high at 1.38 blood sugar is 82 this morning. C-reactive protein is 5.6 Reevaluated today on 02/24/2022, remains in the ICU, intubated and mechanically ventilated. Patient is on assist control rate of 24 tidal volume 500 FiO2 50% PEEP of 12 ABG showed a pO2 of 99 pCO2 42 pH of 7.39 hence no changes were made in the ventilator settings. Patient has been off propofol now for the last 6 days and his mental status is not showing any improvement. Patient remains obtunded, not arousable not following any instructions, remains on cefepime, and her access, Flagyl, he is also on eliquis, is receiving vital HPI at 40 mL per hour. EEG yesterday showed severe encephalopathy no seizure activity. Today I had a chance to discuss his overall status with sister and girlfriend and recommended comfort care measures since the situation is seems to be hopeless. And the prognosis is extremely poor. Both seem reasonable, and they will think about it. They will let me know if they decide to proceed with comfort care measures. CBC is unremarkable hemoglobin is 7.7, no evidence of active bleeding. Basic metabolic profile is normal BUN is 42 creatinine 3.11 patient is on hemodialysis. Chest x-ray today showed improvement in his opacification of the right lung, did not require thoracentesis and did not require repeat bronchoscopy. reevaluated today on 02/25/22, patient remains in the ICU, intubated and mechan ically ventilated. He is on assist control rate of 24th of volume 500 FiO2 50% and PEEP of 12. ABG showed a pO2 of 108 pCO2 45 pH of 7.35. Patient is still requiring norepinephrine at 0.02 micrograms per kilo per minute, is also on IV fluid at KVO, remains on vital a PE at 70 mL per hour. Patient is not requiring any sedation, patient is on cefepime, Eraxis, eliquis, today after reviewing his ABG, recommended cutting down the PEEP down to 8.WBC count is 6.2 hemoglobin is 7.8.basic metabolic profile is unremarkable, BUN is 41 and creatinine 3.07, chest x-ray continues to show bilateral airspace disease, but the opacification of the right lung is significantly improved Reevaluated today on 02/26/22, patient remains in the ICU, intubated and mechanically ventilated. He is on assist control rate of 24, 1 500 FiO2 50% PEEP of 8. ABG showed a pO2 of 111 pCO2 43 pH of 7.38, hence his FiO2 was cut down to 45%. Today the patient is not requiring any norepinephrine however he had to be placed on norepinephrine yesterday briefly when he was getting hemodialysis. Remains on enteral feeding, remains off sedation, not requiring any propofol, and his overall status is basically about the same. Patient does not respond to any stimuli, opens eyes only, continues to have some repetitive m ovement of his tongue, no purposeful movement. WBC count today is 6.8 hemoglobin is 7.7, basic metabolic profile is normal BUN is 43 creatinine 2.69 chest x-ray basically is about the same, continues to have bibasilar airspace disease, and possibly some pleural effusion. Reevaluated today on 02/27/22, patient remains in the ICU, intubated and mechanically ventilated, he is on assist control rate of 24 tidal volume 500 FiO2 45% PEEP of 8 ABG showed a pO2 of 105 pCO2 40 pH of 7.40. 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 Patient opens eyes, but he does not follow any instructions, and he does not seem to respond except opening eyes and repetitive movement of his tongue is noted. At any rate patient that was given a trial of pressure support and CPAP, but he was noted to have episodes of apnea, as I transition his mode of mechanical ventilation to IMV of 8 pressure support of 14 and will eventually go down on the IMV rate as tolerated. Chest x-ray is showing improvement in his bilateral airspace disease and bilateral congestive changes. Has been gradually improving with hemodialysis. And with antibiotics. His last bronchial washing from 02/20 has shown stenotrophomonas. And that's again being addressed by infectious disease on the case Objective - Vital Signs Vital signs: Vital Signs Temp 96.9 F L 02/27/22 08:00 Pulse 94 02/27/22 11:55 Resp 16 02/27/22 11:00 BP 135/57 02/27/22 11:00 Pulse Ox 100 02/27/22 11:00 FiO2 45 02/27/22 11:34 Intake & Output 02/26/22 02/27/22 02/27/22 18:59 06:59 18:59 Intake Total 6398.768 9412.424 732 Output Total 4525 135 5 Balance -2728.254 1096.424 727 Weight 155.3 kg 155.3 kg Intake: IV 626 299 342 0.9 240 260 80 Cefepime 1 gm In Sodium 50 50 Chloride 0.9% 50 ml @ 12. 5 mls/hr IVPB Q12HR [facility] Rx#:[id number] Pressure bags 36 39 12 levETIRAcetam IV 500 mg 200 100 In Sodium Chloride 0.9% 100 ml @ 400 mls/hr IVPB DAILY [facility] Rx#:[id number] metroNIDAZOLE-NS PMX 500 100 100 mg In Saline 1 100ml.bag @ 100 mls/hr IVPB Q8HR [facility] Rx#:[id number] Intake, IV Titration 0.746 2.424 Amount Norepinephrine 32 mg In 0.746 2.424 Sodium Chloride 0.9% 218 ml @ 0.05 MCG/KG/MIN 3. 246 mls/hr IV .Q24H [facility] Rx#:[id number] Tube Feeding 1080 900 360 Other 90 30 30 Output: Urine 25 135 5 Hemodialysis 4500 Other: Voiding Method Indwelling Catheter Indwelling Catheter Indwelling Catheter ABP, PAP, CO, CI - Last Documented Arterial Blood Pressure 162/63 - Exam GENERAL: Revealed a 61-year-old white male, intubated, in no distress Head atraumatic, normocephalic. Tracheostomy is intact EYES: Pupils equal. Conjunctiva normal. HEENT: External appearance of nose and ears normal, oral cavity grossly normal. NECK: JVD not raised; masses not palpable. HEART: Irregular irregular rhythm, normal S1 and S2, no S3 gallop, no murmur. LUNGS: Symmetrical chest expansion crackles at the bases diminished breath sounds on the right side ABDOMEN: Soft, distended, no megaly no rebound no guarding PSYCH: Could not assess patient remains obtunded Extremities: Bipedal edema noted. DERMATOLOGICAL: No change in his skin findings Large wound around the lateral malleolus right foot Gangrene Changes, wrapped with sterile dressing. Patient also has deep tissue injury to his coccyx/buttocks area MUSCULOSKELETAL:No Clubbing/cyanosis;muscles-grossly intact, NEUROLOGICAL: opens eyes, does not follow any instructions, he opens eyes to verbal stimuli only - Labs CBC & Chem 7: 02/26/22 04:28 02/27/22 04:33 Labs: Abnormal Lab Results - Last 24 Hours (Table) 02/26/22 02/26/22 02/27/22 Range/Units 17:31 23:32 04:33 ABG Total CO2 (19-24) mmol/L ABG O2 Saturation (94-97) % BUN 41 H (9-20) mg/dL Creatinine 2.68 H (0.66-1.25) mg/dL Glucose 128 H (74-99) mg/dL POC Glucose (mg/dL) 161 H 163 H (70-110) mg/dL Calcium 7.8 L (8.4-10.2) mg/dL 02/27/22 02/27/22 02/27/22 Range/Units 05:42 05:50 12:00 ABG Total CO2 26 H (19-24) mmol/L ABG O2 Saturation 98.8 H (94-97) % BUN (9-20) mg/dL Creatinine (0.66-1.25) mg/dL Glucose (74-99) mg/dL POC Glucose (mg/dL) 136 H 160 H (70-110) mg/dL Calcium (8.4-10.2) mg/dL Assessment and Plan Assessment: Impression: Acute hypercapnic respiratory failure, intubated on 02/05/2022 underwent tracheostomy on 02/17 Status post tracheostomy on 02/17, patient was a failure to wean. Remains a failure to wean Acute metabolic encephalopathy Right sided rib fractures, traumatic, secondary to fall, Right sided pulmonary contusion. Anterior wedge compression fracture of L1 Hemoptysis secondary to contusion and exacerbated by Coumadin coagulopathy Underlying COPD and chronic smoking Coumadin toxicity with INR above 10 on admission, recovered History of frequent falls. Metabolic encephalopathy, acute, being addressed by neurology on the case. Chronic atrial fibrillation. Acute on Chronic kidney disease stage III. Stage II right ankle wound requiring debridement and positive for MSSA/staph aureus and strep agalactiae Positive bacteremia, however his blood cultures have been negative from 02/04 and 02/05. Diabetic peripheral neuropathy History of Nephrolithiasis Nonspecific colitis Perianal fistula Recommendation: Continue ventilatory support, and tracheostomy care. However the patient will be given a trial of weaning using pressure support of 14 and CPAP of 5 I would also recommend a backup IMV mode of 8 Continue to hold sedatives Continue antibiotics, as per ID on the case. Continue IV fluid at KVO Continue enteral feeding/nutritional support Continue GI and DVT prophylaxis Continue eliquis Continue bronchodilators Continue Keppra Continue Flagyl , continue cefepime. Continue metoprolol Continue amiodarone. Continue midodrine. Continue insulin coverage. Critical care time is over 30 minutes Time with Patient: Greater than 30
--- NOTE | 2022-02-27 15:00 | P.PN ---
Progress Note - Text Progress Note Date: 02/27/22 Hospital course This is a 61-year-old patient who follows with Dr. Sridhar Chan. Chronic stable medical conditions include diabetes, hypertension, hyperlipidemia, chronic low back problems, cigarette smoker. At the baseline uses a walker. Patient slipped in the bathroom falling on his buttock. Was not able to get up. By the EMS report he had fallen 24 hours prior to the picking him up. Patient been complaining of pain in the right rib cage in the lower back. X-ray was negative for fracture. Patient continued to have significant pain especially with deep breathing. Patient also had a congestive cough and wheezing. Some bloody sputum. Denies any fever and chills. Patient also complaining of urinary retention and requesting a Shepard catheter. at the bedside. No fever no chills. Orthopedics consulted for the same. Patient normally has a bowel movement once a week. Patient also has a wound on the right foot lateral part of the ankles for about a week. Ischemic changes. From rubbing against a bedpost. Patient's INR in the ER was greater than 10. Was given vitamin K. 10 mg Patient bit with Coumadin toxicity, given vitamin K, acute COPD exacerbation, uncontrolled atrial flutter put on Lopressor, right chest wall pain. Computed tomography scan lumbar spine and chest was ordered. Large wound on the right lateral malleolus-ID and vascular consulted.. IV cefepime. February 01: Patient yesterday to see refused his computed tomography scan of the chest and lumbar spine. Done today. Right-sided rib fractures, pulmonary contusion confirm. L1 vertebral body 30% wedge compression fracture. Patient's girlfriend the bedside. It was discussed in detail with her. Patient wanting again and again to pull out his NG tube. Requests the to stay with the patient. Patient is also had the dark aspirate from the stomach for which she has NG tube. Surgery was consulted for the same. Also this morning right foot wound was debrided by Dr. Ibarra from vascular. Wound base was relatively clean. No undermining or tunneling. February 02: Delirious. NG tube to suction. Has been in restraints because point NG TUBE several times. Mumbling to himself. Dressing over the right ankle. Not in distress. Ileus. Chest x-ray showing right lower lobe/ate lectasis. February 03: Hospital computer system was down. Patient remains delirious. Nasal cannula. Lethargic. Family the bedside. Antibiotics. A. fib uncontrolled. EEG evidence of metabolic encephalopathy. No clear-cut epileptiform activity. Started on Keppra by neurology. February 04: ICU: Girlfriend at the bedside. In atrial fibrillation uncontrolled. On IV Cardizem and IV amiodarone. NG tube to suction. Patient lethargic. Multiple breathing. 2 L. Oxygen. February 05: ICU. Atrial fibrillation better controlled this morning. Cardizem discontinued. Patient respiratory status worsened this morning and patient is intubated. FiO2 45 and a PEEP of 5. Atrial fibrillation, controlled. Drips include amiodarone, propofol, levo fed. Discussed with girlfriend the bedside. Understands prognosis guarded. February 06: ICU: Ventilated. FiO2 45 and a PEEP of 5. NG tube is clamped. On IV propofol. Sedated. Heart rate better controlled. Was started on Coumadin yesterday. Worsening renal function. Nephrology consulted. 02/07/2022 Patient is currently in the MICU and on mechanical ventilator. Tidal volume of 400, FiO2 40% and PEEP of 5. Patient is off pressor support today. Currently on propofol and is also on tube feeding. Chest x-ray showed stable exam with stable support lines and tubes. Correlate for congestive heart failure. Patient was given a dose of IV Lasix. Laboratory data showed WBC 18.4 hemoglobin 11.6 and platelets 458 Sodium 141 potassium 3.7 chloride 103 bicarb is 18 BUN 49 and creatinine 3.73 and calcium 7.3. INR is 2.2. Patient is being followed by nephrology cardiology and critical care team. 02/08/2022 Patient is currently on mechanical ventilator and sedated with propofol. Assist control with FiO2 40% and tidal volume of 400 and PEEP of 5. Patient is being continued on antibiotics above cefepime and Flagyl. Sputum gram stain gram-negative bacilli and Lynda. Chest x-ray today showed findings suggestive of slightly worsening CHF exacerbation as there is cardiomegaly with mild to moderate central venous congestion and small to moderate-sized bilateral pleural effusion. Laboratory test showed WBC increased to 23.6 hemoglobin 9.1 and platelets 162 INR 3.0 Sodium 139 potassium 4.3 chloride 113 bicarb is 40 BUN 54 and creatinine worsening to 4.36 February 09: I resumed the care of patient today ICU: Med: 40/5. Received vitamin K 5 mg IV to bring the INR down for dialysis catheter. Drips include bicarbonate, propofol, epinephrine. Patient is a stage II coccyx is ulcer. Plan is to change the NG tube to on G-tube today. For possible colitis/fistula on antibiotics. at the bedside. February 10: ICU. Ventilator 50/5. Hemodialysis catheter placed last night. Hemodialyzed yesterday and getting dialyzed today. Remains in atrial fibrillation heart rate uncontrolled. Getting up sedation holiday. Drips include bicarbonate and norepinephrine. Propofol currently held. 2 feeding at 46 mL an hour. Does open eyes. February 11: ICU. Ventilator. 50/5. Third day for hemodialysis. 1.5 L to be removed today. Back on propofol. Drips include bicarbonate, norepinephrine, propofol. On G-tube feeding. Patient back in sinus rhythm. Bag and tracheostomy to planning for next week. 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 IV antifungal started by ID. February 12: ICU: Ventilator: 40/5. Telemetry shows sinus rhythm. Drips include propofol and norepinephrine. On G-tube feeding. Discussed with the at the bedside. Understands prognosis guarded. IV antibiotics and antifungals. February 13: ICU: Ventilator: 40/5. PEG tube placed yesterday by Dr. Cornejo. Drips include bicarbonate, propofol, norepinephrine. Getting hemodialysis done today. February 14: ICU: Medicated. 2 feeding at 65 mL an hour. This included propofol and norepinephrine. Hemodialysis done today. Sinus rhythm. February 15: ICU: Ventilator: 40/5. 2 feeding at 65 mL an hour. Drips include propofol and norepinephrine. No hemodialysis today. at the bedside. Discussed. 02/16/2022 Patient seen and evaluated and follow-up continues to be in the ICU on mechanical ventilation with sedation with multiple medical consultations following. Patient is currently receiving hemodialysis and continues with a temporary dialysis catheter. Patient is still full code and overall prognosis remains extremely poor and guarded. Patient's FiO2 is 40% with a PEEP of 5. Patient also continues on antifungal along with cefepime and metronidazole with infectious disease following. Patient is sedated on propofol continues on Levophed as well. WBC is 12.9 with hemoglobin of 8.7, sodium is 134 with a potassium of 4.5 current creatinine is 4.69 with a BUN of 66. Patient is maintained on tube feedings and has received the PEG tubing is scheduled for tracheostomy tentatively today if OR available. Again overall prognosis remains extremely guarded. 02/17/2022 Patient continues to be in the ICU on mechanical vent and FiO2 remains 40% with a PEEP of 5. Patient continues on norepinephrine with multiple medical consultations following. Patient continues on propofol for sedation and also was maintained on hemodialysis almost daily. Patient continues on cefepime along with an antifungal and Flagyl with anxiety following sputum culture showing 16 oh troph ammonias maltophilia with Lynda most recent blood cultures have been negative. Patient is afebrile although WBC is elevated at 14.5 and hemoglobin is 8.9, BUN is 61 with a creatinine of 4.55, sodium is 135 and sodium bicarb tablets have been discontinued. Magnesium was 1.9. Plan is tentatively scheduled for tracheostomy with general surgery today post hemodialysis. Overall prognosis is extremely guarded. Chest x-ray shows continued bilateral pleural effusions with no significant change from previous day. Patient is maintained on tube feedings via PEG tube although on hold for surgery today 02/18/2022 Patient is seen and evaluated continues to be in the ICU with multiple medical consultations following. Patient is status post tracheostomy placement with Dr. Villegas yesterday evening and tolerating well with no leaks noted. Patient continues on FiO2 of 40% with a PEEP of 5. Patient undergoing sedation holiday and propofol was recently turned off. Patient is awake and opening eyes spontaneously although not following commands on exam. Patient is looking around the room and mouthing words with no comprehension. Patient with extensive wounds of the sacro-coccyx region that are currently unstageable and general surgery is following and may possibly require debridement of these areas. Patient is status post debridement of the right foot previously. Patient is maintained on antibiotics along with antifungal's and infectious disease is following. Patient is afebrile and WBC is 10.6, hemoglobin is 8.4, patient is also with a BUN of 50 and creatinine is 3.78, magnesium is 1.8. Patient is being closely monitored by nephrology with a temporary site of the right femoral receiving daily dialysis. Patient continues on low-dose Levophed and working on weaning as tolerated. PEG tube feedings are at goal and t olerating. Overall prognosis remains extremely guarded. 02/19/2022 Patient is seen in follow-up this morning and has been off propofol since yesterday although continues to not follow commands. Multiple medical consultations following. Patient is status post recent tracheostomy and also PEG tube placement and has been resumed on tube feedings and tolerating at goal. Patient is continuing on hemodialysis with a right groin temporary catheter. Chest x-ray this morning shows some possible progression of pleural effusions and airspace disease or atelectasis especially in the right lung. Nursing staff questioning about anticoagulation and his Coumadin was on hold for tracheostomy and patient is being started on eliquis. Patient continues on antibiotics as well in the form of cefepime and Flagyl and antifungal's with anxiety following. Patient also continues on low-dose Levophed. Patient continues on mechanical ventilation via tracheostomy with an FiO2 of 60. Patient scheduled to receive dialysis again today. General surgery is following and may be required for debridement of the decubitus ulcers once more stable. Pulmonary discussing possible thoracentesis in the near future. Patient is currently afebrile. Prognosis remains extremely guarded. February 20: Patient was being covered by [facility] last 4 days. ICU. Ventilator. FiO2 16 a PEEP of 8. Has a PEG and trach. Awake, drowsy. On norepinephrine. at the bedside. February 21: ICU: Ventilator. FiO2 60 PEEP of 8. Hemodialysis today. Drips include norepinephrine. Sinus tachycardia. Does open eyes. Sticks his tongue. Drowsy. Not really following commands February 22: ICU: Ventilator. FiO2 16 a PEEP of 8. Patient is in and out of atrial fibrillation. Does open eyes and sticks his tongue out intermittently. Nonpurposeful. Currently on levo fed drip small dose. Midodrine has been added. 2 feeding at 25 mL an hour. at the bedside. February 23: ICU: Ventilator. FiO2 50 PEEP of 12. Drips include norepinephrine. Decreased Accu-Chek. tube feeding increased. February 24: ICU: Ventilator: FiO2 50 and a PEEP of 12. 2 feeding at 40. Patient is off levo fed. Lethargic. EEG yesterday showed encephalopathy obvious evidence of seizure. Keppra ordered per neurology. Ultrafiltration hemodialysis today. Significant edema. February 25: ICU: Ventilator: FiO2 50 and a PEEP of 8. Atrial fibrillation rate controlled. 2 feeding at 90 mL an hour. On a small dose of epinephrine. Patient lethargic. Dr. Ryan met with the family yesterday. Comfort measures were suggested. Family will talk further. February 26: ICU: Ventilator. Atrial fibrillation. Lethargic. Family looking into comfort measures. Waiting for family to come in from out of state. February 27: ICU: Ventilator. 45/8. Lethargic. Awaiting out of town family to come in before comfort measures on March 03. Active Medications Acetaminophen (Acetaminophen Tab 325 Mg Tab) 650 mg PO Q6HR PRN PRN Reason: Mild Pain or Fever > 100.5 Last Admin: 02/26/22 19:01 Dose: 650 mg Albuterol/Ipratropium (Ipratropium-Albuterol 3 Ml Neb) 3 ml INHALATION RT-QID [facility] Last Admin: 02/27/22 11:35 Dose: 3 ml Amiodarone HCl (Amiodarone 200 Mg Tab) 200 mg PO BID [facility] Last Admin: 02/27/22 09:12 Dose: 200 mg Apixaban (Apixaban 2.5 Mg Tablet) 2.5 mg PO BID [facility]; Protocol Last Admin: 02/27/22 09:12 Dose: 2.5 mg Artificial Tears (Artificial Tears-Hypromellose Drops 15 Ml Btl) 2 drops BOTH EYES TID PRN PRN Reason: Dry Eye(s) Budesonide (Budesonide 1 Mg/2 Ml Nebu) 1 mg INHALATION RT-BID [facility] Last Admin: 02/27/22 07:43 Dose: 1 mg Calcium Acetate (Calcium Acetate 667 Mg Tab) 667 mg PO TID-W/MEALS [facility] Last Admin: 02/27/22 12:03 Dose: 667 mg Calcium Carbonate/Glycine (Calcium Carbonate 500 Mg Chewable) 1,000 mg PO Q4HR PRN PRN Reason: Dyspepsia Last Admin: 01/31/22 14:29 Dose: 1,000 mg Chlorhexidine Gluconate (Chlorhexidine Gluconate 15 Ml Cup) 15 ml MUCOUS MEM BID [facility] Last Admin: 02/27/22 09:13 Dose: 15 ml Collagenase (Collagenase 250 Unit/Gm Ointment 30 Gm Tube) 1 applic TOPICAL DAILY [facility]; Protocol Last Admin: 02/27/22 09:14 Dose: 1 applic Darbepoetin Mann (Darbepoetin Mann 60 Mcg/0.3 Ml Syringe) 60 mcg SQ Q7D [facility] Last Admin: 02/25/22 18:05 Dose: 60 mcg Dextrose/Water (Dextrose 50% Syringe 50 Ml) 25 ml IVP PER PROTOCOL PRN; Protocol PRN Reason: Hypoglycemia Last Admin: 02/23/22 05:39 Dose: 25 ml Dextrose/Water (Dextrose 50% Syringe 50 Ml) 50 ml IVP PER PROTOCOL PRN; Protocol PRN Reason: Hypoglycemia Metronidazole 500 mg/ IV (Solution) 100 mls @ 100 mls/hr IVPB Q8HR [facility]; Protocol Last Admin: 02/27/22 07:44 Dose: 100 mls/hr Cefepime HCl 1 gm/ Sodium (Chloride) 50 mls @ 12.5 mls/hr IVPB Q12HR [facility] Last Admin: 02/27/22 09:12 Dose: 12.5 mls/hr Norepinephrine Bitartrate 32 (mg/ Sodium Chloride) 250 mls @ 3.246 mls/hr IV .Q24H [facility]; Protocol Last Admin: 02/27/22 07:42 Dose: Not Given Levetiracetam 500 mg/ Sodium (Chloride) 105 mls @ 400 mls/hr IVPB Q12HR [facility] Last Admin: 02/27/22 09:13 Dose: 400 mls/hr Levetiracetam 500 mg/ Sodium (Chloride) 105 mls @ 400 mls/hr IVPB 1400 [facility] Last Admin: 02/27/22 13:24 Dose: 400 mls/hr Insulin Aspart (Insulin Aspart (Novolog) 100 Unit/Ml Vial) 0 unit SQ Q6HR [facility]; Protocol Last Admin: 02/27/22 12:03 Dose: 2 unit Lactulose (Lactulose 20 Gm/30 Ml Cup) 30 gm PO DAILY [facility] Last Admin: 02/27/22 08:56 Dose: Not Given Metoprolol Tartrate (Metoprolol Tartrate 25 Mg Tab) 25 mg PO BID [facility] Last Admin: 02/27/22 09:13 Dose: 25 mg Midodrine (Midodrine 5 Mg Tab) 10 mg PO AC-TID [facility] Last Admin: 02/27/22 13:28 Dose: 10 mg Miscellaneous Information (Potassium Replacement Protocol 1 Each Misc) 1 each MISCELLANE DAILY PRN; Protocol PRN Reason: Per Protocol Miscellaneous Information (Magnesium Replacement Protocol 1 Each Misc) 1 each MISCELLANE DAILY PRN; Protocol PRN Reason: Per Protocol Naloxone HCl (Naloxone 0.4 Mg/Ml 1 Ml Vial) 0.2 mg IV Q2M PRN PRN Reason: Opioid Reversal Ondansetron HCl (Ondansetron 4 Mg/2 Ml Vial) 4 mg IVP Q8HR PRN PRN Reason: Nausea And Vomiting Last Admin: 02/02/22 08:41 Dose: 4 mg Pantoprazole Sodium (Pantoprazole 40 Mg/10 Ml Vial) 40 mg IVP BID [facility] Last Admin: 02/27/22 09:15 Dose: 40 mg Pregabalin (Pregabalin 100 Mg Cap) 100 mg PO BID [facility] Last Admin: 02/27/22 09:13 Dose: 100 mg Past medical history to include: COPD, diabetes, hypertension, hyperlipidemia, back problems, TB, atrial fibrillation, on Coumadin Social history: Smokes a pack a day for close to 50 years. Stop doing alcohol some time ago. Lives with his significant other Sandra. Does use a walker. 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 Conjunctiva normal. HEENT: External appearance of nose and ears normal, oral cavity dry, trache ostomy NECK: JVD not raised; masses not palpable. HEART: Heart sounds regular; edema present LUNGS: Respiratory rate increased; decreased breath sound, ABDOMEN: Soft, distended, nontender, liver spleen not palpable, no masses palpable. PEG tube. PSYCH: Unable to assess, patient lethargic DERMATOLOGICAL: Wound on right ankle lateral malleolus. Under dressing. Stage II coccygeal breakdown. See nursing notes INVESTIGATIONS, reviewed in the clinical context: February 27: Potassium 4.2 BUN 41 creatinine 2.68 February 26: WBC 6.8 hemoglobin 7.7 platelets 129 potassium 4 BUN 43 creatinine 2.69 February 25: Potassium 4.2 BUN 41 crit and 3.07 February 24: WBC 6.2 hemoglobin 7.7 platelets 163 potassium 4.3 BUN 42 creatinine 3.11 February 15: WBC 13.9 hemoglobin 9.6 platelets 96 potassium 4.4 BUN 59 creatinine 4.21 procalcitonin 2.05 Acute hepatitis screen: Negative Complement C3 78, complement C4 19.6 February 11: Sodium 138 potassium 4.4 creatinine 4.19 Sputum: Stenostrophonas maltophilia, Lynda albicans Computed tomography scan abdomen and pelvis [February 06] 6 mm stone in the right renal collecting system. Some circumferential wall thickening of the cecum and ascending colon. Distention of the rectum 7.5 cm with solid stool. EEG: Evidence of encephalopathy. No obvious epileptiform activity. 2-D echocardiogram: EF 60-65%. Renal ultrasound: Shows bilateral normal cortical medullary thickness. February 01: WBC 17.1 hemoglobin 14.8 UA: Blood large, leukoesterase moderate WBC 28 nitrite negative Lumbar spine CT: Anterior wedge compression deformity of L1. Multiple level DJD. 7 mm calculus right renal pelvis. CT chest without contrast: Right lateral eighth through 10th rib fractures with associated gas trace hemothorax right lower lobe pulmonary contusion/at electasis. Patchy) disease left upper lobe. WBC 25.8 hemoglobin 14.1 platelets 217 INR greater than 10 sodium 131 potassium 3.9. 24 creatinine 1.8 to EKG tracing personally reviewed by me-atrial flutter. Rate 132 Foot/Lumbar/sacral coccyx: Spondylitic changes. No fracture. Chest x-ray film personally reviewed by me-clinically. Possible hyperinflation Assessment and plan: -Coumadin toxicity. INR greater than 10. On presentation: 10 mg vitamin K in the ER. Hemoptysis on presentation. Coumadin resumed on February 05.. - right lung contusion.-Secondary to fall. hemoptysis on presentation -Pneumonia, secondary to Stenostrophonas maltophilia, Lynda albicans: Slow to respond IV cefepime, IV anidulafungin -Sepsis with positive blood cultures MSSA, likely source right ankle. From January 31. IV cefepime. February 04 blood culture negative -Acute hypoxic respiratory failure multifactorial including pneumonia/COPD. Ventilator assisted: Slow to respond FiO2 50% -Acute hypoxic respiratory failure, multifactorial: ventilator support,: Slow to respond Patient intubated on February 05 -Acute COPD exacerbation, with chronic bronchitis component in a current smoker: Slow to respond DuoNeb. Nebulized Pulmicort. Mucinex. -Chronic nicotine dependence, cigarette smoker Nicotine patch -Paroxysmal atrial flutter,: Back in sinus rhythm Lopressor 50 mg 3 times a day. 2-D echocardiogram unremarkable. Oral amiodarone Coumadin started on February 05 -Possible CK D with possible acute component. creatinine was 0.8 in April 2019. Renal ultrasound unremarkable. UA shows trace protein. IV fluids.. -Acute kidney injury, ATN, likely cardiorenal syndrome.: Not improving Follow with nephrology. Daily Hemodialysis started February 09 -Acute right-sided 8-10 ribs fracture secondary to fall K pad -Diabetes mellitus type 2, chronically on oral hypoglycemic Sliding scale insulin. Increase tube feeding. DC Levemir -Diabetic peripheral neuropathy Decreased dose of Lyrica in the setting of renal failure. 100 mg twice a day -Chronic low back pain: MS Contin 15 mg every 12, [place] 7.5 twice a day when necessary -Anxiety depression not otherwise specified Wellbutrin XL 100 mg twice a day -Hyperlipidemia Lipitor 40 mg daily at bedtime -Right ankle lateral, diabetic wound, stage II acute. Wound culture positive for Streptococcus agalactiae and Staphylococcus aureus. IV Ancef initially. Follow with ID Patient has poor distal pulses. February 01 wound was debrided by Dr. Ibarra. Clean base. -Acute L1 30% wedge fracture secondary to fall LSO brace. Be followed by Dr. Damon -Acute delirium multifactorial. Slow to respond -Acute ileus, NG tube for decompression.; clamped.: Corrected Being followed by surgery. -Possible colitis /fistula on computed tomography scan. IV Flagyl. Cefepime. Followed by surgery -Normocytic anemia, multifactorial. Chronic disease component, hospital- acquired/blood draw and infection. Suspicions hypotensive requiring levo fed will transfuse a unit of blood. IV Flagyl,/IV cefepime awaiting out of town family to arrive by March 03 ; and then wanting comfort measures
--- NOTE | 2022-02-27 15:24 | P.PN ---
Subjective Progress Note Date: 02/26/22 Principal diagnosis: Right foot infected pressure ulcer and bacteremia Patient is a 61-year-old male presented to the hospital for evaluation of fall patient also noticed to have a wound on the right lateral foot with some necrotic edges which has been debridement by vascular surgery on 01/31/2022.Patient has been transthoracic because of significant mental status changes, The patient ended up getting intubated, the patient also have worsening of the kidney function requiring dialysis catheter placement and has been started on dialysis as of 02/09/2022, the patient did have a PEG tube placement on 02/22/2022 , The patient is s/p tracheostomy completed on 02/17/2022, the patient is status post bronchoscopy completed on 02/20/2022 On today's evaluation that is 02/26/2022 the, the patient continues to be afebrile except for low-grade fever of 99.9 last night, the patient remains to be intubated through the tach, the patient FiO2 is down to 45 % no significant p urulent secretions through the ET diarrhea or any other changes reported by the nursing staff Objective - Vital Signs Vital signs: Vital Signs Temp 99.1 F 02/26/22 12:00 Pulse 86 02/26/22 12:00 Resp 24 02/26/22 12:00 BP 126/72 02/26/22 11:00 Pulse Ox 95 02/26/22 12:00 FiO2 45 02/26/22 12:00 Intake & Output 02/25/22 02/26/22 02/26/22 18:59 06:59 18:59 Intake Total 1799 1340.615 988 Output Total 4895 115 20 Balance -3096 1225.615 968 Weight 153.2 kg 155.2 kg Intake: IV 649 253 388 0.9% Sodium Chloride @ 260 220 120 10mls/hr Anidulafungin 100 mg In 100 Sodium Chloride 0.9% 100 ml @ 84 mls/hr IVPB DAILY [facility] Rx#:[id number] Cefepime 1 gm In Sodium 50 50 Chloride 0.9% 50 ml @ 12. 5 mls/hr IVPB Q12HR [facility] Rx#:[id number] Pressure bags 39 33 18 levETIRAcetam IV 500 mg 100 In Sodium Chloride 0.9% 100 ml @ 400 mls/hr IVPB DAILY [facility] Rx#:[id number] metroNIDAZOLE-NS PMX 500 200 100 mg In Saline 1 100ml.bag @ 100 mls/hr IVPB Q8HR [facility] Rx#:[id number] Intake, IV Titration 200 7.615 Amount Norepinephrine 32 mg In 0 7.615 Sodium Chloride 0.9% 218 ml @ 0.05 MCG/KG/MIN 3. 246 mls/hr IV .Q24H [facility] Rx#:[id number] levETIRAcetam IV 500 mg 200 In Sodium Chloride 0.9% 100 ml @ 400 mls/hr IVPB 1400 [facility] Rx#:[id number] Tube Feeding 950 990 540 Other 90 60 Output: Urine 95 115 20 Hemodialysis 2400 Other 2400 Other: Voiding Method Indwelling Catheter Indwelling Catheter Indwelling Catheter # Bowel Movements 1 ABP, PAP, CO, CI - Last Documented Arterial Blood Pressure 133/57 - Exam GENERAL DESCRIPTION: Middle-aged male intubated Through the trach LUNGS: Unlabored breathing. Decreased breath sound at the base HEART: S1, S2, regular rate and rhythm. ABDOMEN: Soft, no tenderness , guarding or rigidity, no organomegaly EXTREMITIES: Right foot wound is currently dressed no drainage on the dressing - Labs CBC & Chem 7: 02/26/22 04:28 02/27/22 04:33 Labs: Abnormal Lab Results - Last 24 Hours (Table) 02/20/22 02/25/22 02/25/22 Range/Units 15:40 18:09 23:31 RBC (4.30-5.90) m/uL Hgb (13.0-17.5) gm/dL Hct (39.0-53.0) % MCV (80.0-100.0) fL MCHC (31.0-37.0) g/dL RDW (11.5-15.5) % Plt Count (150-450) k/uL Lymphocytes # (1.0-4.8) k/uL ABG pO2 (83-108) mmHg ABG Total CO2 (19-24) mmol/L ABG O2 Saturation (94-97) % Sodium (137-145) mmol/L BUN (9-20) mg/dL Creatinine (0.66-1.25) mg/dL Glucose (74-99) mg/dL POC Glucose (mg/dL) 172 H 161 H (70-110) mg/dL Calcium (8.4-10.2) mg/dL Phosphorus (2.5-4.5) mg/dL Viral Test See Below A 02/26/22 02/26/22 02/26/22 Range/Units 04:28 04:28 04:28 RBC 2.59 L (4.30-5.90) m/uL Hgb 7.7 L (13.0-17.5) gm/dL Hct 26.0 L (39.0-53.0) % MCV 100.4 H (80.0-100.0) fL MCHC 29.8 L (31.0-37.0) g/dL RDW 19.2 H (11.5-15.5) % Plt Count 129 L (150-450) k/uL Lymphocytes # 0.8 L (1.0-4.8) k/uL ABG pO2 (83-108) mmHg ABG Total CO2 (19-24) mmol/L ABG O2 Saturation (94-97) % Sodium 136 L (137-145) mmol/L BUN 43 H (9-20) mg/dL Creatinine 2.69 H (0.66-1.25) mg/dL Glucose 143 H (74-99) mg/dL POC Glucose (mg/dL) (70-110) mg/dL Calcium 7.6 L (8.4-10.2) mg/dL Phosphorus 4.7 H (2.5-4.5) mg/dL Viral Test 02/26/22 02/26/22 02/26/22 Range/Units 05:49 05:53 11:49 RBC (4.30-5.90) m/uL Hgb (13.0-17.5) gm/dL Hct (39.0-53.0) % MCV (80.0-100.0) fL MCHC (31.0-37.0) g/dL RDW (11.5-15.5) % Plt Count (150-450) k/uL Lymphocytes # (1.0-4.8) k/uL ABG pO2 111 H (83-108) mmHg ABG Total CO2 27 H (19-24) mmol/L ABG O2 Saturation 99.3 H (94-97) % Sodium (137-145) mmol/L BUN (9-20) mg/dL Creatinine (0.66-1.25) mg/dL Glucose (74-99) mg/dL POC Glucose (mg/dL) 158 H 140 H (70-110) mg/dL Calcium (8.4-10.2) mg/dL Phosphorus (2.5-4.5) mg/dL Viral Test Assessment and Plan (1) Cellulitis Current Visit: Yes Status: Acute Code(s): L03.90 - CELLULITIS, UNSPECIFIED SNOMED Code(s): 096740027 Plan: 1patient with right foot unstageable pressure ulcer with surrounding necrotic area and cellulitis On admission,x-rays do not show any bony changes likely from gram-positive skin caleb and less likely gram-negative pathogen, patient is status post vascular surgery evaluation and debridement and deep cultureWhich has been finalized with strep and MSSA. 2-patient with MSSA bacteremia source is likely right foot infected pressure ulcer, Repeat blood culture has been negative 3 patient sputum from 02/05/2022 has been finalized with stenotrophomonas sensitive to Fortaz and sputum with Lynda albicans concern for component of oropharyngeal candidiasis, for the patient has received adequate Diflucan 4-the patient bronchoscopy sample culture came back positive with stenotrophomonas that is resistant to Fortaz, also growing Achromobacter which is sensitive to Fortaz and should be covered with cefepime unfortunately we were not able to add Levaquin as the patient is on amiodarone and with his kidney function the Bactrim DS may not be a good idea either , the patient remains to be afebrile and his white count is normal the patient will be continued on cefepime and continue supportive care overall prognosis remains to be guarded Time with Patient: Less than 30
--- NOTE | 2022-02-27 15:26 | P.PN ---
Subjective Progress Note Date: 02/27/22 Principal diagnosis: Right foot infected pressure ulcer and bacteremia Patient is a 61-year-old male presented to the hospital for evaluation of fall patient also noticed to have a wound on the right lateral foot with some necrotic edges which has been debridement by vascular surgery on 01/31/2022.Patient has been transthoracic because of significant mental status changes, The patient ended up getting intubated, the patient also have worsening of the kidney function requiring dialysis catheter placement and has been started on dialysis as of 02/09/2022, the patient did have a PEG tube placement on 02/22/2022 , The patient is s/p tracheostomy completed on 02/17/2022, the patient is status post bronchoscopy completed on 02/20/2022 On today's evaluation that is 02/27/2022 the, the patient remains to be afebrile , the patient remains to be intubated through the tach, the patient FiO2 is stable at 45 % no significant purulent secretions through the ET diarrhea re ported by the nursing staff Objective - Vital Signs Vital signs: Vital Signs Temp 97.0 F L 02/27/22 12:00 Pulse 87 02/27/22 14:00 Resp 13 02/27/22 14:00 BP 128/62 02/27/22 14:00 Pulse Ox 100 02/27/22 14:00 FiO2 45 02/27/22 12:00 Intake & Output 02/26/22 02/27/22 02/27/22 18:59 06:59 18:59 Intake Total 3610.133 0344.424 1401 Output Total 4525 135 3010 Balance -2728.254 1096.424 -1609 Weight 155.3 kg 155.3 kg Intake: IV 626 299 411 0.9 240 260 140 Cefepime 1 gm In Sodium 50 50 Chloride 0.9% 50 ml @ 12. 5 mls/hr IVPB Q12HR [facility] Rx#:[id number] Pressure bags 36 39 21 levETIRAcetam IV 500 mg 200 100 In Sodium Chloride 0.9% 100 ml @ 400 mls/hr IVPB DAILY [facility] Rx#:[id number] metroNIDAZOLE-NS PMX 500 100 100 mg In Saline 1 100ml.bag @ 100 mls/hr IVPB Q8HR [facility] Rx#:[id number] Intake, IV Titration 0.746 2.424 Amount Norepinephrine 32 mg In 0.746 2.424 Sodium Chloride 0.9% 218 ml @ 0.05 MCG/KG/MIN 3. 246 mls/hr IV .Q24H [facility] Rx#:[id number] Tube Feeding 1080 900 630 Hemodialysis 300 Other 90 30 60 Output: Urine 25 135 10 Hemodialysis 4500 3000 Other: Voiding Method Indwelling Catheter Indwelling Catheter Indwelling Catheter ABP, PAP, CO, CI - Last Documented Arterial Blood Pressure 117/44 - Exam GENERAL DESCRIPTION: Middle-aged male intubated Through the trach LUNGS: Unlabored breathing. Decreased breath sound at the base HEART: S1, S2, regular rate and rhythm. ABDOMEN: Soft, no tenderness , guarding or rigidity, no organomegaly EXTREMITIES: Right foot wound is currently dressed no drainage on the dressing - Labs CBC & Chem 7: 02/26/22 04:28 02/27/22 04:33 Labs: Abnormal Lab Results - Last 24 Hours (Table) 02/26/22 02/26/22 02/27/22 Range/Units 17:31 23:32 04:33 ABG Total CO2 (19-24) mmol/L ABG O2 Saturation (94-97) % BUN 41 H (9-20) mg/dL Creatinine 2.68 H (0.66-1.25) mg/dL Glucose 128 H (74-99) mg/dL POC Glucose (mg/dL) 161 H 163 H (70-110) mg/dL Calcium 7.8 L (8.4-10.2) mg/dL 02/27/22 02/27/22 02/27/22 Range/Units 05:42 05:50 12:00 ABG Total CO2 26 H (19-24) mmol/L ABG O2 Saturation 98.8 H (94-97) % BUN (9-20) mg/dL Creatinine (0.66-1.25) mg/dL Glucose (74-99) mg/dL POC Glucose (mg/dL) 136 H 160 H (70-110) mg/dL Calcium (8.4-10.2) mg/dL 02/27/22 Range/Units 12:10 ABG Total CO2 (19-24) mmol/L ABG O2 Saturation (94-97) % BUN (9-20) mg/dL Creatinine (0.66-1.25) mg/dL Glucose (74-99) mg/dL POC Glucose (mg/dL) 134 H (70-110) mg/dL Calcium (8.4-10.2) mg/dL Assessment and Plan (1) Cellulitis Current Visit: Yes Status: Acute Code(s): L03.90 - CELLULITIS, UNSPECIFIED SNOMED Code(s): 493773191 Plan: 1patient with right foot unstageable pressure ulcer with surrounding necrotic area and cellulitis On admission,x-rays do not show any bony changes likely from gram-positive skin caleb and less likely gram-negative pathogen, patient is status post vascular surgery evaluation and debridement and deep cultureWhich has been finalized with strep and MSSA. 2-patient with MSSA bacteremia source is likely right foot infected pressure ulcer, Repeat blood culture has been negative 3 patient sputum from 02/05/2022 has been finalized with stenotrophomonas sensitive to Fortaz and sputum with Lynda albicans concern for component of oropharyngeal candidiasis, for the patient has received adequate Diflucan 4-the patient bronchoscopy sample culture came back positive with stenotrophomonas that is resistant to Fortaz, also growing Achromobacter which is sensitive to Fortaz and should be covered with cefepime unfortunately we were not able to add Levaquin as the patient is on amiodarone and with his kidney function the Bactrim DS may lead to more complication, the patient remains to be afebrile and his white count is normal 5-the patient will be continued on cefepime and supportive care , prognosis remains to be guarded Time with Patient: Less than 30
[2022-02-27 16:57] LABS: Glucose,Whole Blood 127 mg/dL (70-110)
[2022-02-27 23:35] LABS: Glucose,Whole Blood 165 mg/dL (70-110)
[2022-02-28] MEDS: NOREPINEPHRINE 32 MG in SODIUM CHLORIDE 0.9% 218 ML IV SCH ×2 (00:06→23:52)
[2022-02-28] MEDS: INSULIN ASPART (NovoLOG) 100 UNIT/ML VIAL SQ SCH ×4 (00:10→17:59)
[2022-02-28] MEDS: metroNIDAZOLE-NS PMX 500 MG in SALINE 1 100ML.BAG IVPB SCH ×4 (00:10→23:53)
[2022-02-28 05:43] LABS: Glucose,Whole Blood 160 mg/dL (70-110)
[2022-02-28 05:55] LABS: ABG Base Excess 0.5 mmol/L; ABG HCO3 27 mmol/L (21-25); ABG Oxygen Saturation 96.3 % (94-97); ABG PCO2 51 mmHg (35-45); ABG PH 7.32 (7.35-7.45); ABG PO2 84 mmHg (83-108); ABG TCO2 28 mmol/L (19-24)
[2022-02-28 05:57] LABS: Allen Test Performed? No
[2022-02-28] MEDS: MIDODRINE 5 MG TAB PO SCH ×3 (06:43→16:50)
[2022-02-28] MEDS: CALCIUM ACETATE 667 MG TAB PO SCH ×3 (06:43→16:45)
[2022-02-28 07:04] LABS: Calcium 7.7 mg/dL (8.4-10.2); Potassium 4.4 mmol/L (3.5-5.1)
[2022-02-28] MEDS: BUDESONIDE 1 MG/2 ML NEBU INHALATION SCH ×2 (07:49→20:34)
[2022-02-28] MEDS: IPRATROPIUM-ALBUTEROL 3 ML NEB INHALATION SCH ×4 (07:49→20:34)
[2022-02-28] MEDS: PANTOPRAZOLE 40 MG/10 ML VIAL IVP SCH ×2 (08:06→20:31)
[2022-02-28] MEDS: METOPROLOL TARTRATE 25 MG TAB PO SCH ×2 (08:08→20:31)
[2022-02-28] MEDS: AMIODARONE 200 MG TAB PO SCH ×2 (08:08→20:31)
[2022-02-28] MEDS: PREGABALIN 100 MG CAP PO SCH ×2 (08:08→20:31)
[2022-02-28] MEDS: CHLORHEXIDINE GLUCONATE 15 ML CUP MUCOUS MEM SCH ×2 (08:08→20:31)
[2022-02-28] MEDS: CEFEPIME 1 GM in SODIUM CHLORIDE 0.9% 50 ML IVPB SCH ×2 (08:08→20:30)
[2022-02-28] MEDS: APIXABAN 2.5 MG TABLET PO SCH ×2 (08:08→20:31)
[2022-02-28] MEDS: LACTULOSE 20 GM/30 ML CUP PO SCH (08:08)
[2022-02-28] MEDS: COLLAGENASE 250 UNIT/GM OINTMENT 30 GM TUBE TOPICAL SCH (08:09)
[2022-02-28] MEDS: levETIRAcetam IV 500 MG in SODIUM CHLORIDE 0.9% 100 ML IVPB SCH ×3 (10:02→20:30)
--- NOTE | 2022-02-28 10:36 | P.PN ---
Subjective Patient is seen in follow-up for acute kidney injury. Started on hemodialysis 02/09/2022. Patient has been receiving daily dialysis mostly for volume overload. Patient remains on the vent. FiO2 at 45% Off of sedation and not following commands. Status post hemodialysis yesterday with UF of 3 L. Patient tolerated his treatment well. Objective - Vital Signs Vital signs: Vital Signs Temp 98.0 F 02/28/22 08:00 Pulse 101 H 02/28/22 10:00 Resp 16 02/28/22 10:00 BP 125/66 02/28/22 10:00 Pulse Ox 97 02/28/22 10:00 FiO2 45 02/28/22 10:00 Intake & Output 02/27/22 02/28/22 02/28/22 18:59 06:59 18:59 Intake Total 2083 1606 339 Output Total 3010 192 0 Balance -927 1414 339 Weight 155.3 kg 155 kg Intake: IV 703 426 69 0.9 220 240 60 Cefepime 1 gm In Sodium 50 50 Chloride 0.9% 50 ml @ 12. 5 mls/hr IVPB Q12HR [facility] Rx#:[id number] Pressure bags 33 36 9 levETIRAcetam IV 500 mg 200 In Sodium Chloride 0.9% 100 ml @ 400 mls/hr IVPB DAILY [facility] Rx#:[id number] metroNIDAZOLE-NS PMX 500 200 100 mg In Saline 1 100ml.bag @ 100 mls/hr IVPB Q8HR [facility] Rx#:[id number] Intake, IV Titration 100 Amount levETIRAcetam IV 500 mg 100 In Sodium Chloride 0.9% 100 ml @ 400 mls/hr IVPB 1400 [facility] Rx#:[id number] Tube Feeding 990 990 270 Hemodialysis 300 Other 90 90 Output: Urine 10 192 0 Hemodialysis 3000 Other: Voiding Method Indwelling Catheter Indwelling Catheter ABP, PAP, CO, CI - Last Documented Arterial Blood Pressure 157/65 - Exam Patient is on the vent. Status post trach Decreased breath sounds bilaterally worse on the right side Examination of the heart S1 and S2 Abdomen is obese distended Examination lower extremity shows edema 2-3+ bilaterally upper and lower extremities with chronic skin changes in the legs. Significant scrotal edema noted, decreasing [employer]ATE[employer]IST exam shows pt is awake but not following commands. - Labs CBC & Chem 7: 02/26/22 04:28 02/28/22 06:00 Labs: Abnormal Lab Results - Last 24 Hours (Table) 02/27/22 02/27/22 02/27/22 Range/Units 12:00 12:10 16:55 ABG pH (7.35-7.45) ABG pCO2 (35-45) mmHg ABG HCO3 (21-25) mmol/L ABG Total CO2 (19-24) mmol/L BUN (9-20) mg/dL Creatinine (0.66-1.25) mg/dL Glucose (74-99) mg/dL POC Glucose (mg/dL) 160 H 134 H 127 H (70-110) mg/dL Calcium (8.4-10.2) mg/dL 02/27/22 02/28/22 02/28/22 Range/Units 23:33 05:41 05:47 ABG pH 7.32 L (7.35-7.45) ABG pCO2 51 H (35-45) mmHg ABG HCO3 27 H (21-25) mmol/L ABG Total CO2 28 H (19-24) mmol/L BUN (9-20) mg/dL Creatinine (0.66-1.25) mg/dL Glucose (74-99) mg/dL POC Glucose (mg/dL) 165 H 160 H (70-110) mg/dL Calcium (8.4-10.2) mg/dL 02/28/22 Range/Units 06:00 ABG pH (7.35-7.45) ABG pCO2 (35-45) mmHg ABG HCO3 (21-25) mmol/L ABG Total CO2 (19-24) mmol/L BUN 45 H (9-20) mg/dL Creatinine 2.52 H (0.66-1.25) mg/dL Glucose 168 H (74-99) mg/dL POC Glucose (mg/dL) (70-110) mg/dL Calcium 7.7 L (8.4-10.2) mg/dL Assessment and Plan Assessment: 1. Acute kidney injury ATN secondary to sepsis and hypotension. 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 Started on hemodialysis on 02/09/2022. Oliguric. Serum creatinine in April 2019 was 0.8. No evidence of obstruction on CAT scan. Status post hemodialysis yesterday. Patient tolerated treatment well. Volume status has improved. Patient will be maintained on a Wednesday schedule. 2. Acute hypoxic, hypercapnic respiratory failure currently on the vent 3. MSSA bacteremia initially on vancomycin and currently on cefazolin. Last blood cultures drawn on 02/04/2022 are negative, source is right foot ulcer 4. Hyperphosphatemia associated with acute kidney injury currently maintained on PhosLo 5. Volume overload, slowly improving with UF with hemodialysis 6. Right lung near complete opacification scheduled for bronchoscopy today Plan: Next hemodialysis on 03/02/2022 Repeat labs in a.m.
--- NOTE | 2022-02-28 11:06 | P.PN ---
Subjective Progress Note Date: 02/28/22 Principal diagnosis: Multiple right-sided rib fractures and a right sided pulmonary contusion with compression fractures of lumbar spine This is a extremely debilitated 61-year-old male patient who is known to monitor milligrams and comorbidities and I was asked to evaluate this patient because of a fall and limited hemoptysis. The patient is known to have a combination of i ssues including diabetes mellitus and diabetic peripheral neuropathy and the patient has had previous episodes of falls and he has issues with chronic atrial flutter maintained on long-term anticoagulation with warfarin. He is morbidly obese. He has hypertension and hyperlipidemia as comorbid conditions along with chronic kidney disease. He is morbidly obese. He has history of COPD and is a chronic smoker. He comes in to the hospital after he had a fall at home. He was the bathroom and he slept and he landed on his left chest. Here in the hospital, the patient was found to be Coumadin toxic and his INR was above 10. He did have some limited hemoptysis and coffee-ground emesis without any melanotic stools. No abdominal pain. He was noted to have a large ulcer over the right ankle/malleolus area which is a chronic wound. Immediately the patient was given vitamin K. This computed tomography scan of the chest shows some right lateral eighth through 10th rib fractures with trace amount of right- sided pleural effusion and right basilar atelectasis related to underlying pulmonary contusion. No evidence of any pneumothorax. Some limited patchy airspace disease in the left upper lobe probably inflammatory in the same time the patient had dilated pulmonary arteries indicating possibility of pulmonary hypertension and a fluid and gas-filled distended stomach. I noted the patient has not had a CAT scan of the brain and a CAT scan was done that showed no acute intracranial process. There was a remote left occipital lobe injury along with some nonspecific white matter changes secondary to chronic microangiopathy. This computed tomography scan of the lumbar spine showed acute anterior wedge compression deformity of L1 vertebral body with a 30% loss in height along with multilevel degenerative disc changes and a 7 mm In the right pelvis. Patient was already seen by general surgery and orthopedic surgery. Lumbar spine x-ray that was done on 2021 showed no acute fracture. The patient was also seen by vascular surgery for a right lateral foot wound and this is a stage II wound 8.5 x 4 cm in size. Debridement was done by vascular surgery. 02/22/2022, neurologically unchanged and the patient remains off sedation and is not following any commands. He is essentially the same as yesterday. He does movements and these are essentially nonpurposeful movements. I have asked neurology to reevaluate the patient for any further input. Meanwhile, he remains on a mechanical ventilator. The right lung is essentially opacified with a pleural effusion and atelectasis. I performed a bronchoscopy and remove mucous plug from the right lung. This caused some limited improvement. For the most part, the right lung is still opacified. He remains on assist control mode of mechanical ventilation at the rate of 24, tidal volume of 500, FiO2 of 60% and a PEEP of 8. Blood gases from today showed a pH of 7.37 with a pCO2 of 45 and pO2 of 75. The patient's condition essentially unchanged. He is hemodynamically stable. His still on minimal doses of pressors which is being weaned off and currently is on norepinephrine at 0.02 mcg/kg per minute.. He is afebrile and the repeat cultures from the bronchioloalveolar lavage of the right lung showed no microbial growth. Hemoglobin today is at 6.9. No signs of any active bleeding. Last hemodialysis session was yesterday and no plans for dialysis today. He is having bowel movement activity. She'll feeds were restarted and the patient is on vital high protein at the rate of 25. His rest of the blood work shows a white cell count of 8 with a hemoglobin of 6.9 and platelet count of 161. Sodium is 141 BUN is a 39 and a creatinine of 3.11. 02/23/2022, patient remains in the ICU, intubated, mechanically ventilated, not following any instructions or any commands. Patient opens eyes, but no responses whatsoever. He grimaces to painful stimuli only. He is on assist control rate of 24 to volume 500 FiO2 60% PEEP of 12. ABG showed a pO2 of 108 pCO2 42 pH of 7.39, hence his FiO2 was cut down from 60% to 50%. Patient is still requiring norepinephrine at 0.01 mcg/kg/m however his blood pressure was noted to be stable enough this morning and I recommended stopping norepinephrine. Remains on IV fluids at KVO, and he is on enteral feeding receiving vital Hb at 25 mL per hour which is his goal. Patient is still getting hemodialysis. Chest x-ray continues to show opacification of the right lung, ultrasound showed small pleural effusion does not correlate with the finding on the chest x-ray, and I am not planning thoracentesis since it is quite risky considering his body size. Not to mention the fluid is not large enough to be drained. Labs were reviewed that he set his 8 hemoglobin is 8.4 electrolytes are normal BUN is 46 creatinine 3.38. Pro-calcitonin remains a bit high at 1.38 blood sugar is 82 this morning. C-reactive protein is 5.6 Reevaluated today on 02/24/2022, remains in the ICU, intubated and mechanically ventilated. Patient is on assist control rate of 24 tidal volume 500 FiO2 50% PEEP of 12 ABG showed a pO2 of 99 pCO2 42 pH of 7.39 hence no changes were made in the ventilator settings. Patient has been off propofol now for the last 6 days and his mental status is not showing any improvement. Patient remains obtunded, not arousable not following any instructions, remains on cefepime, and her access, Flagyl, he is also on eliquis, is receiving vital HPI at 40 mL per hour. EEG yesterday showed severe encephalopathy no seizure activity. Today I had a chance to discuss his overall status with sister and girlfriend and recommended comfort care measures since the situation is seems to be hopeless. And the prognosis is extremely poor. Both seem reasonable, and they will think about it. They will let me know if they decide to proceed with comfort care measures. CBC is unremarkable hemoglobin is 7.7, no evidence of active bleeding. Basic metabolic profile is normal BUN is 42 creatinine 3.11 patient is on hemodialysis. Chest x-ray today showed improvement in his opacification of the right lung, did not require thoracentesis and did not require repeat bronchoscopy. reevaluated today on 02/25/22, patient remains in the ICU, intubated and mechan ically ventilated. He is on assist control rate of 24th of volume 500 FiO2 50% and PEEP of 12. ABG showed a pO2 of 108 pCO2 45 pH of 7.35. Patient is still requiring norepinephrine at 0.02 micrograms per kilo per minute, is also on IV fluid at KVO, remains on vital a PE at 70 mL per hour. Patient is not requiring any sedation, patient is on cefepime, Eraxis, eliquis, today after reviewing his ABG, recommended cutting down the PEEP down to 8.WBC count is 6.2 hemoglobin is 7.8.basic metabolic profile is unremarkable, BUN is 41 and creatinine 3.07, chest x-ray continues to show bilateral airspace disease, but the opacification of the right lung is significantly improved Reevaluated today on 02/26/22, patient remains in the ICU, intubated and mechanically ventilated. He is on assist control rate of 24, 1 500 FiO2 50% PEEP of 8. ABG showed a pO2 of 111 pCO2 43 pH of 7.38, hence his FiO2 was cut down to 45%. Today the patient is not requiring any norepinephrine however he had to be placed on norepinephrine yesterday briefly when he was getting hemodialysis. Remains on enteral feeding, remains off sedation, not requiring any propofol, and his overall status is basically about the same. Patient does not respond to any stimuli, opens eyes only, continues to have some repetitive m ovement of his tongue, no purposeful movement. WBC count today is 6.8 hemoglobin is 7.7, basic metabolic profile is normal BUN is 43 creatinine 2.69 chest x-ray basically is about the same, continues to have bibasilar airspace disease, and possibly some pleural effusion. Reevaluated today on 02/27/22, patient remains in the ICU, intubated and mechanically ventilated, he is on assist control rate of 24 tidal volume 500 FiO2 45% PEEP of 8 ABG showed a pO2 of 105 pCO2 40 pH of 7.40. Patient remains on antibiotics in the form of Flagyl and cefepime, remains on eliquis, remains on hemodialysis, not much of a liner roll changer the last 24 hours, patient is also on enteral feeding, he is not requiring any sedation, his mental status has never shown any improvement. Patient opens eyes, but he does not follow any instructions, and he does not seem to respond except opening eyes and repetitive movement of his tongue is noted. At any rate patient that was given a trial of pressure support and CPAP, but he was noted to have episodes of apnea, as I transition his mode of mechanical ventilation to IMV of 8 pressure support of 14 and will eventually go down on the IMV rate as tolerated. Chest x-ray is showing improvement in his bilateral airspace disease and bilateral congestive changes. Has been gradually improving with hemodialysis. And with antibiotics. His last bronchial washing from 02/20 has shown stenotrophomonas. And that's again being addressed by infectious disease on the case Reevaluated today on 02/28/22, remains the ICU, intubated and mechanically ventilated, patient has been tolerating pressure support of 14 and IMV of 8 fairly well over the last 24 hours. Today I cut down his IMV rate to 6. His respiratory rate is about 16-18., And his ABG today showed a pO2 of 84 pCO2 of 51 pH of 7.32. Patient is on IMV rate of 8 tidal volume 500 FiO2 45% and pressure support of 14. Remains on broad-spectrum antibiotics remains on eliquis. Remains on vital HPI. Today the patient is opening his eyes, he may follow very simple instructions like closing eyes and open eyes but not consistently. Patient does not wiggle his toes does not stick out his tongue and he does not follow any other instructions. Overall the patient is about the same. ABG as noted electrolytes are normal BUN is 45 creatinine 2.52, no chest x-ray was done today. Objective - Vital Signs Vital signs: Vital Signs Temp 98.0 F 02/28/22 08:00 Pulse 101 H 02/28/22 10:00 Resp 16 02/28/22 10:00 BP 125/66 02/28/22 10:00 Pulse Ox 97 02/28/22 10:00 FiO2 45 02/28/22 10:59 Intake & Output 02/27/22 02/28/22 02/28/22 18:59 06:59 18:59 Intake Total 2083 1606 657.0 Output Total 3010 192 0 Balance -927 1414 657.0 Weight 155.3 kg 155 kg Intake: IV 703 426 197.0 0.9 220 240 60 Cefepime 1 gm In Sodium 50 50 25.0 Chloride 0.9% 50 ml @ 12. 5 mls/hr IVPB Q12HR [facility] Rx#:[id number] Pressure bags 33 36 12 levETIRAcetam IV 500 mg 200 In Sodium Chloride 0.9% 100 ml @ 400 mls/hr IVPB DAILY [facility] Rx#:[id number] metroNIDAZOLE-NS PMX 500 200 100 100 mg In Saline 1 100ml.bag @ 100 mls/hr IVPB Q8HR [facility] Rx#:[id number] Intake, IV Titration 100 100 Amount levETIRAcetam IV 500 mg 100 100 In Sodium Chloride 0.9% 100 ml @ 400 mls/hr IVPB 1400 [facility] Rx#:[id number] Tube Feeding 990 990 360 Hemodialysis 300 Other 90 90 Output: Urine 10 192 0 Hemodialysis 3000 Other: Voiding Method Indwelling Catheter Indwelling Catheter Indwelling Catheter ABP, PAP, CO, CI - Last Documented Arterial Blood Pressure 157/65 - Exam GENERAL: Revealed a 61-year-old white male, intubated, in no distress Head atraumatic, normocephalic. Tracheostomy is intact EYES: Pupils equal. Conjunctiva normal. HEENT: External appearance of nose and ears normal, oral cavity grossly normal. NECK: JVD not raised; masses not palpable. HEART: Irregular irregular rhythm, normal S1 and S2, no S3 gallop, no murmur. LUNGS: Symmetrical chest expansion crackles at the bases diminished breath sounds on the right side ABDOMEN: Soft, distended, no megaly no rebound no guarding PSYCH: Could not assess patient remains obtunded Extremities: Bipedal edema noted. DERMATOLOGICAL: No change in his skin findings Large wound around the lateral malleolus right foot Gangrene Changes, wrapped with sterile dressing. Patient also has deep tissue injury to his coccyx/buttocks area MUSCULOSKELETAL:No Clubbing/cyanosis;muscles-grossly intact, NEUROLOGICAL: opens eyes, does not follow any instructions - Labs CBC & Chem 7: 02/26/22 04:28 02/28/22 06:00 Labs: Abnormal Lab Results - Last 24 Hours (Table) 02/27/22 02/27/22 02/27/22 Range/Units 12:00 12:10 16:55 ABG pH (7.35-7.45) ABG pCO2 (35-45) mmHg ABG HCO3 (21-25) mmol/L ABG Total CO2 (19-24) mmol/L BUN (9-20) mg/dL Creatinine (0.66-1.25) mg/dL Glucose (74-99) mg/dL POC Glucose (mg/dL) 160 H 134 H 127 H (70-110) mg/dL Calcium (8.4-10.2) mg/dL 02/27/22 02/28/22 02/28/22 Range/Units 23:33 05:41 05:47 ABG pH 7.32 L (7.35-7.45) ABG pCO2 51 H (35-45) mmHg ABG HCO3 27 H (21-25) mmol/L ABG Total CO2 28 H (19-24) mmol/L BUN (9-20) mg/dL Creatinine (0.66-1.25) mg/dL Glucose (74-99) mg/dL POC Glucose (mg/dL) 165 H 160 H (70-110) mg/dL Calcium (8.4-10.2) mg/dL 02/28/22 Range/Units 06:00 ABG pH (7.35-7.45) ABG pCO2 (35-45) mmHg ABG HCO3 (21-25) mmol/L ABG Total CO2 (19-24) mmol/L BUN 45 H (9-20) mg/dL Creatinine 2.52 H (0.66-1.25) mg/dL Glucose 168 H (74-99) mg/dL POC Glucose (mg/dL) (70-110) mg/dL Calcium 7.7 L (8.4-10.2) mg/dL Assessment and Plan Assessment: Impression: Acute hypercapnic respiratory failure, intubated on 02/05/2022 underwent tracheostomy on 02/17 Status post tracheostomy on 02/17, patient was a failure to wean. Remains a failure to wean Acute metabolic encephalopathy Right sided rib fractures, traumatic, secondary to fall, Right sided pulmonary contusion. Anterior wedge compression fracture of L1 Hemoptysis secondary to contusion and exacerbated by Coumadin coagulopathy Underlying COPD and chronic smoking Coumadin toxicity with INR above 10 on admission, recovered History of frequent falls. Metabolic encephalopathy, acute, being addressed by neurology on the case. Chronic atrial fibrillation. Acute on Chronic kidney disease stage III. Stage II right ankle wound requiring debridement and positive for MSSA/staph aureus and strep agalactiae Positive bacteremia, however his blood cultures have been negative from 02/04 and 02/05. Diabetic peripheral neuropathy History of Nephrolithiasis Nonspecific colitis Perianal fistula Recommendation: Continue ventilatory support, and tracheostomy care. Continue IMV of 6 instead of 8 today. pressure support of 14 and tidal volume of 500, FiO2 45%. Continue to hold sedatives patient has not received any sedatives and over a week Continue antibiotics, as per ID on the case. Continue IV fluid at KVO Continue enteral feeding/nutritional support Continue GI and DVT prophylaxis Continue eliquis Continue bronchodilators Continue Keppra Continue metoprolol Continue amiodarone. Continue midodrine. Continue insulin coverage. Critical care time is over 30 minutes Time with Patient: Greater than 30
[2022-02-28 11:50] LABS: Glucose,Whole Blood 171 mg/dL (70-110)
--- NOTE | 2022-02-28 13:22 | P.PN ---
Progress Note - Text Progress Note Date: 02/28/22 Hospital course This is a 61-year-old patient who follows with Dr. Sridhar Chan. Chronic stable medical conditions include diabetes, hypertension, hyperlipidemia, chronic low back problems, cigarette smoker. At the baseline uses a walker. Patient slipped in the bathroom falling on his buttock. Was not able to get up. By the EMS report he had fallen 24 hours prior to the picking him up. Patient been complaining of pain in the right rib cage in the lower back. X-ray was negative for fracture. Patient continued to have significant pain especially with deep breathing. Patient also had a congestive cough and wheezing. Some bloody sputum. Denies any fever and chills. Patient also complaining of urinary retention and requesting a Shepard catheter. at the bedside. No fever no chills. Orthopedics consulted for the same. Patient normally has a bowel movement once a week. Patient also has a wound on the right foot lateral part of the ankles for about a week. Ischemic changes. From rubbing against a bedpost. Patient's INR in the ER was greater than 10. Was given vitamin K. 10 mg Patient bit with Coumadin toxicity, given vitamin K, acute COPD exacerbation, uncontrolled atrial flutter put on Lopressor, right chest wall pain. Computed tomography scan lumbar spine and chest was ordered. Large wound on the right lateral malleolus-ID and vascular consulted.. IV cefepime. February 01: Patient yesterday to see refused his computed tomography scan of the chest and lumbar spine. Done today. Right-sided rib fractures, pulmonary contusion confirm. L1 vertebral body 30% wedge compression fracture. Patient's girlfriend the bedside. It was discussed in detail with her. Patient wanting again and again to pull out his NG tube. Requests the to stay with the patient. Patient is also had the dark aspirate from the stomach for which she has NG tube. Surgery was consulted for the same. Also this morning right foot wound was debrided by Dr. Ibarra from vascular. Wound base was relatively clean. No undermining or tunneling. February 02: Delirious. NG tube to suction. Has been in restraints because point NG TUBE several times. Mumbling to himself. Dressing over the right ankle. Not in distress. Ileus. Chest x-ray showing right lower lobe/ate lectasis. February 03: Hospital computer system was down. Patient remains delirious. Nasal cannula. Lethargic. Family the bedside. Antibiotics. A. fib uncontrolled. EEG evidence of metabolic encephalopathy. No clear-cut epileptiform activity. Started on Keppra by neurology. February 04: ICU: Girlfriend at the bedside. In atrial fibrillation uncontrolled. On IV Cardizem and IV amiodarone. NG tube to suction. Patient lethargic. Multiple breathing. 2 L. Oxygen. February 05: ICU. Atrial fibrillation better controlled this morning. Cardizem discontinued. Patient respiratory status worsened this morning and patient is intubated. FiO2 45 and a PEEP of 5. Atrial fibrillation, controlled. Drips include amiodarone, propofol, levo fed. Discussed with girlfriend the bedside. Understands prognosis guarded. February 06: ICU: Ventilated. FiO2 45 and a PEEP of 5. NG tube is clamped. On IV propofol. Sedated. Heart rate better controlled. Was started on Coumadin yesterday. Worsening renal function. Nephrology consulted. 02/07/2022 Patient is currently in the MICU and on mechanical ventilator. Tidal volume of 400, FiO2 40% and PEEP of 5. Patient is off pressor support today. Currently on propofol and is also on tube feeding. Chest x-ray showed stable exam with stable support lines and tubes. Correlate for congestive heart failure. Patient was given a dose of IV Lasix. Laboratory data showed WBC 18.4 hemoglobin 11.6 and platelets 458 Sodium 141 potassium 3.7 chloride 103 bicarb is 18 BUN 49 and creatinine 3.73 and calcium 7.3. INR is 2.2. Patient is being followed by nephrology cardiology and critical care team. 02/08/2022 Patient is currently on mechanical ventilator and sedated with propofol. Assist control with FiO2 40% and tidal volume of 400 and PEEP of 5. Patient is being continued on antibiotics above cefepime and Flagyl. Sputum gram stain gram-negative bacilli and Lynda. Chest x-ray today showed findings suggestive of slightly worsening CHF exacerbation as there is cardiomegaly with mild to moderate central venous congestion and small to moderate-sized bilateral pleural effusion. Laboratory test showed WBC increased to 23.6 hemoglobin 9.1 and platelets 162 INR 3.0 Sodium 139 potassium 4.3 chloride 113 bicarb is 40 BUN 54 and creatinine worsening to 4.36 February 09: I resumed the care of patient today ICU: Med: 40/5. Received vitamin K 5 mg IV to bring the INR down for dialysis catheter. Drips include bicarbonate, propofol, epinephrine. Patient is a stage II coccyx is ulcer. Plan is to change the NG tube to on G-tube today. For possible colitis/fistula on antibiotics. at the bedside. February 10: ICU. Ventilator 50/5. Hemodialysis catheter placed last night. Hemodialyzed yesterday and getting dialyzed today. Remains in atrial fibrillation heart rate uncontrolled. Getting up sedation holiday. Drips include bicarbonate and norepinephrine. Propofol currently held. 2 feeding at 46 mL an hour. Does open eyes. February 11: ICU. Ventilator. 50/5. Third day for hemodialysis. 1.5 L to be removed today. Back on propofol. Drips include bicarbonate, norepinephrine, propofol. On G-tube feeding. Patient back in sinus rhythm. Bag and tracheostomy to planning for next week. 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 IV antifungal started by ID. February 12: ICU: Ventilator: 40/5. Telemetry shows sinus rhythm. Drips include propofol and norepinephrine. On G-tube feeding. Discussed with the at the bedside. Understands prognosis guarded. IV antibiotics and antifungals. February 13: ICU: Ventilator: 40/5. PEG tube placed yesterday by Dr. Cornejo. Drips include bicarbonate, propofol, norepinephrine. Getting hemodialysis done today. February 14: ICU: Medicated. 2 feeding at 65 mL an hour. This included propofol and norepinephrine. Hemodialysis done today. Sinus rhythm. February 15: ICU: Ventilator: 40/5. 2 feeding at 65 mL an hour. Drips include propofol and norepinephrine. No hemodialysis today. at the bedside. Discussed. 02/16/2022 Patient seen and evaluated and follow-up continues to be in the ICU on mechanical ventilation with sedation with multiple medical consultations following. Patient is currently receiving hemodialysis and continues with a temporary dialysis catheter. Patient is still full code and overall prognosis remains extremely poor and guarded. Patient's FiO2 is 40% with a PEEP of 5. Patient also continues on antifungal along with cefepime and metronidazole with infectious disease following. Patient is sedated on propofol continues on Levophed as well. WBC is 12.9 with hemoglobin of 8.7, sodium is 134 with a potassium of 4.5 current creatinine is 4.69 with a BUN of 66. Patient is maintained on tube feedings and has received the PEG tubing is scheduled for tracheostomy tentatively today if OR available. Again overall prognosis remains extremely guarded. 02/17/2022 Patient continues to be in the ICU on mechanical vent and FiO2 remains 40% with a PEEP of 5. Patient continues on norepinephrine with multiple medical consultations following. Patient continues on propofol for sedation and also was maintained on hemodialysis almost daily. Patient continues on cefepime along with an antifungal and Flagyl with anxiety following sputum culture showing 16 oh troph ammonias maltophilia with Lynda most recent blood cultures have been negative. Patient is afebrile although WBC is elevated at 14.5 and hemoglobin is 8.9, BUN is 61 with a creatinine of 4.55, sodium is 135 and sodium bicarb tablets have been discontinued. Magnesium was 1.9. Plan is tentatively scheduled for tracheostomy with general surgery today post hemodialysis. Overall prognosis is extremely guarded. Chest x-ray shows continued bilateral pleural effusions with no significant change from previous day. Patient is maintained on tube feedings via PEG tube although on hold for surgery today 02/18/2022 Patient is seen and evaluated continues to be in the ICU with multiple medical consultations following. Patient is status post tracheostomy placement with Dr. Villegas yesterday evening and tolerating well with no leaks noted. Patient continues on FiO2 of 40% with a PEEP of 5. Patient undergoing sedation holiday and propofol was recently turned off. Patient is awake and opening eyes spontaneously although not following commands on exam. Patient is looking around the room and mouthing words with no comprehension. Patient with extensive wounds of the sacro-coccyx region that are currently unstageable and general surgery is following and may possibly require debridement of these areas. Patient is status post debridement of the right foot previously. Patient is maintained on antibiotics along with antifungal's and infectious disease is following. Patient is afebrile and WBC is 10.6, hemoglobin is 8.4, patient is also with a BUN of 50 and creatinine is 3.78, magnesium is 1.8. Patient is being closely monitored by nephrology with a temporary site of the right femoral receiving daily dialysis. Patient continues on low-dose Levophed and working on weaning as tolerated. PEG tube feedings are at goal and t olerating. Overall prognosis remains extremely guarded. 02/19/2022 Patient is seen in follow-up this morning and has been off propofol since yesterday although continues to not follow commands. Multiple medical consultations following. Patient is status post recent tracheostomy and also PEG tube placement and has been resumed on tube feedings and tolerating at goal. Patient is continuing on hemodialysis with a right groin temporary catheter. Chest x-ray this morning shows some possible progression of pleural effusions and airspace disease or atelectasis especially in the right lung. Nursing staff questioning about anticoagulation and his Coumadin was on hold for tracheostomy and patient is being started on eliquis. Patient continues on antibiotics as well in the form of cefepime and Flagyl and antifungal's with anxiety following. Patient also continues on low-dose Levophed. Patient continues on mechanical ventilation via tracheostomy with an FiO2 of 60. Patient scheduled to receive dialysis again today. General surgery is following and may be required for debridement of the decubitus ulcers once more stable. Pulmonary discussing possible thoracentesis in the near future. Patient is currently afebrile. Prognosis remains extremely guarded. February 20: [facility]. Ventilator. FiO2 16 a PEEP of 8. Has a PEG and trach. Awake, drowsy. On norepinephrine. at the bedside. February 21: ICU: Ventilator. FiO2 60 PEEP of 8. Hemodialysis today. Drips include norepinephrine. Sinus tachycardia. Does open eyes. Sticks his tongue. Drowsy. Not really following commands February 22: ICU: Ventilator. FiO2 16 a PEEP of 8. Patient is in and out of atrial fibrillation. Does open eyes and sticks his tongue out intermittently. Nonpurposeful. Currently on levo fed drip small dose. Midodrine has been added. 2 feeding at 25 mL an hour. at the bedside. February 23: ICU: Ventilator. FiO2 50 PEEP of 12. Drips include norepinephrine. Decreased Accu-Chek. tube feeding increased. February 24: ICU: Ventilator: FiO2 50 and a PEEP of 12. 2 feeding at 40. Patient is off levo fed. Lethargic. EEG yesterday showed encephalopathy obvious evidence of seizure. Keppra ordered per neurology. Ultrafiltration hemodialysis today. Significant edema. February 25: ICU: Ventilator: FiO2 50 and a PEEP of 8. Atrial fibrillation rate controlled. 2 feeding at 90 mL an hour. On a small dose of epinephrine. Patient lethargic. Dr. Ryan met with the family yesterday. Comfort measures were suggested. Family will talk further. February 26: ICU: Ventilator. Atrial fibrillation. Lethargic. Family looking into comfort measures. Waiting for family to come in from out of state. February 27: ICU: Ventilator. 45/8. Lethargic. Awaiting out of town family to come in before comfort measures on March 03. February 28: ICU: Ventilator 45/8. Atrial fibrillation rate controlled. 2 feeding. Lethargic Active Medications Acetaminophen (Acetaminophen Tab 325 Mg Tab) 650 mg PO Q6HR PRN PRN Reason: Mild Pain or Fever > 100.5 Last Admin: 02/26/22 19:01 Dose: 650 mg Albuterol/Ipratropium (Ipratropium-Albuterol 3 Ml Neb) 3 ml INHALATION RT-QID [facility] Last Admin: 02/28/22 10:59 Dose: 3 ml Amiodarone HCl (Amiodarone 200 Mg Tab) 200 mg PO BID [facility] Last Admin: 02/28/22 08:08 Dose: 200 mg Apixaban (Apixaban 2.5 Mg Tablet) 2.5 mg PO BID [facility]; Protocol Last Admin: 02/28/22 08:08 Dose: 2.5 mg Artificial Tears (Artificial Tears-Hypromellose Drops 15 Ml Btl) 2 drops BOTH EYES TID PRN PRN Reason: Dry Eye(s) Budesonide (Budesonide 1 Mg/2 Ml Nebu) 1 mg INHALATION RT-BID [facility] Last Admin: 02/28/22 07:49 Dose: 1 mg Calcium Acetate (Calcium Acetate 667 Mg Tab) 667 mg PO TID-W/MEALS [facility] Last Admin: 02/28/22 06:43 Dose: 667 mg Calcium Carbonate/Glycine (Calcium Carbonate 500 Mg Chewable) 1,000 mg PO Q4HR PRN PRN Reason: Dyspepsia Last Admin: 01/31/22 14:29 Dose: 1,000 mg Chlorhexidine Gluconate (Chlorhexidine Gluconate 15 Ml Cup) 15 ml MUCOUS MEM BID [facility] Last Admin: 02/28/22 08:08 Dose: 15 ml Collagenase (Collagenase 250 Unit/Gm Ointment 30 Gm Tube) 1 applic TOPICAL DAILY [facility]; Protocol Last Admin: 02/28/22 08:09 Dose: 1 applic Darbepoetin Mann (Darbepoetin Mann 60 Mcg/0.3 Ml Syringe) 60 mcg SQ Q7D [facility] Last Admin: 02/25/22 18:05 Dose: 60 mcg Dextrose/Water (Dextrose 50% Syringe 50 Ml) 25 ml IVP PER PROTOCOL PRN; Protocol PRN Reason: Hypoglycemia Last Admin: 02/23/22 05:39 Dose: 25 ml Dextrose/Water (Dextrose 50% Syringe 50 Ml) 50 ml IVP PER PROTOCOL PRN; Protocol PRN Reason: Hypoglycemia Metronidazole 500 mg/ IV (Solution) 100 mls @ 100 mls/hr IVPB Q8HR [facility]; Protocol Last Admin: 02/28/22 08:07 Dose: 100 mls/hr Cefepime HCl 1 gm/ Sodium (Chloride) 50 mls @ 12.5 mls/hr IVPB Q12HR [facility] Last Admin: 02/28/22 08:08 Dose: 12.5 mls/hr Norepinephrine Bitartrate 32 (mg/ Sodium Chloride) 250 mls @ 3.246 mls/hr IV .Q24H [facility]; Protocol Last Admin: 02/28/22 00:06 Dose: Not Given Levetiracetam 500 mg/ Sodium (Chloride) 105 mls @ 400 mls/hr IVPB Q12HR [facility] Last Admin: 02/28/22 10:02 Dose: 400 mls/hr Levetiracetam 500 mg/ Sodium (Chloride) 105 mls @ 400 mls/hr IVPB 1400 [facility] Last Admin: 02/27/22 13:24 Dose: 400 mls/hr Insulin Aspart (Insulin Aspart (Novolog) 100 Unit/Ml Vial) 0 unit SQ Q6HR [facility]; Protocol Last Admin: 02/28/22 05:53 Dose: 2 unit Lactulose (Lactulose 20 Gm/30 Ml Cup) 30 gm PO DAILY [facility] Last Admin: 02/28/22 08:08 Dose: Not Given Metoprolol Tartrate (Metoprolol Tartrate 25 Mg Tab) 25 mg PO BID [facility] Last Admin: 02/28/22 08:08 Dose: 25 mg Midodrine (Midodrine 5 Mg Tab) 10 mg PO AC-TID [facility] Last Admin: 02/28/22 06:43 Dose: Not Given Miscellaneous Information (Potassium Replacement Protocol 1 Each Misc) 1 each MISCELLANE DAILY PRN; Protocol PRN Reason: Per Protocol Miscellaneous Information (Magnesium Replacement Protocol 1 Each Misc) 1 each MISCELLANE DAILY PRN; Protocol PRN Reason: Per Protocol Naloxone HCl (Naloxone 0.4 Mg/Ml 1 Ml Vial) 0.2 mg IV Q2M PRN PRN Reason: Opioid Reversal Ondansetron HCl (Ondansetron 4 Mg/2 Ml Vial) 4 mg IVP Q8HR PRN PRN Reason: Nausea And Vomiting Last Admin: 02/02/22 08:41 Dose: 4 mg Pantoprazole Sodium (Pantoprazole 40 Mg/10 Ml Vial) 40 mg IVP BID [facility] Last Admin: 02/28/22 08:06 Dose: 40 mg Pregabalin (Pregabalin 100 Mg Cap) 100 mg PO BID [facility] Last Admin: 02/28/22 08:08 Dose: 100 mg Past medical history to include: COPD, diabetes, hypertension, hyperlipidemia, back problems, TB, atrial fibrillation, on Coumadin Social history: Smokes a pack a day for close to 50 years. Stop doing alcohol some time ago. Lives with his significant other Sandra. Does use a walker. 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 Conjunctiva normal. HEENT: External appearance of nose and ears normal, oral cavity dry, tracheostomy NECK: JVD not raised; masses not palpable. HEART: Heart sounds regular; edema present LUNGS: Respiratory rate increased; decreased breath sound, ABDOMEN: Soft, distended, nontender, liver spleen not palpable, no masses palpable. PEG tube. PSYCH: Unable to assess, patient lethargic DERMATOLOGICAL: Wound on right ankle lateral malleolus. Under dressing. Stage II coccygeal breakdown. See nursing notes INVESTIGATIONS, reviewed in the clinical context: February 28: Potassium 4.4 BUN 45 creatinine 2.5 to February 27: Potassium 4.2 BUN 41 creatinine 2.68 February 15: WBC 13.9 hemoglobin 9.6 platelets 96 potassium 4.4 BUN 59 creatinine 4.21 procalcitonin 2.05 Acute hepatitis screen: Negative Complement C3 78, complement C4 19.6 February 11: Sodium 138 potassium 4.4 creatinine 4.19 Sputum: Stenostrophonas maltophilia, Lynda albicans Computed tomography scan abdomen and pelvis [February 06] 6 mm stone in the right renal collecting system. Some circumferential wall thickening of the cecum and ascending colon. Distention of the rectum 7.5 cm with solid stool. EEG: Evidence of encephalopathy. No obvious epileptiform activity. 2-D echocardiogram: EF 60-65%. Renal ultrasound: Shows bilateral normal cortical medullary thickness. February 01: WBC 17.1 hemoglobin 14.8 UA: Blood large, leukoesterase moderate WBC 28 nitrite negative Lumbar spine CT: Anterior wedge compression deformity of L1. Multiple level DJD. 7 mm calculus right renal pelvis. CT chest without contrast: Right lateral eighth through 10th rib fractures with associated gas trace hemothorax right lower lobe pulmonary contusion/atelectasis. Patchy) disease left upper lobe. WBC 25.8 hemoglobin 14.1 platelets 217 INR greater than 10 sodium 131 potassium 3.9. 24 creatinine 1.8 to EKG tracing personally reviewed by me-atrial flutter. Rate 132 Foot/Lumbar/sacral coccyx: Spondylitic changes. No fracture. Chest x-ray film personally reviewed by me-clinically. Possible hyperinflation Assessment and plan: -Coumadin toxicity. INR greater than 10. On presentation: 10 mg vitamin K in the ER. Hemoptysis on presentation. Coumadin resumed on February 05.. - right lung contusion.-Secondary to fall. hemoptysis on presentation -Pneumonia, secondary to Stenostrophonas maltophilia, Lynda albicans: Slow to respond IV cefepime, IV anidulafungin -Sepsis with positive blood cultures MSSA, likely source right ankle. From January 31. IV cefepime. February 04 blood culture negative -Acute hypoxic respiratory failure multifactorial including pneumonia/COPD. Ventilator assisted: Slow to respond -Acute hypoxic respiratory failure, multifactorial: ventilator support,: Slow to respond Patient intubated on February 05 -Acute COPD exacerbation, with chronic bronchitis component in a current smoker: Slow to respond DuoNeb. Nebulized Pulmicort. Mucinex. -Chronic nicotine dependence, cigarette smoker Nicotine patch -Paroxysmal atrial flutter,: Back in sinus rhythm Lopressor 50 mg 3 times a day. 2-D echocardiogram unremarkable. Oral amiodarone Coumadin started on February 05 -Possible CK D with possible acute component. creatinine was 0.8 in April 2019. Renal ultrasound unremarkable. UA shows trace protein. IV fluids.. -Acute kidney injury, ATN, likely cardiorenal syndrome.: Not improving Follow with nephrology. Daily Hemodialysis started February 09 -Acute right-sided 8-10 ribs fracture secondary to fall K pad -Diabetes mellitus type 2, chronically on oral hypoglycemic Sliding scale insulin. Increase tube feeding. DC Levemir -Diabetic peripheral neuropathy Decreased dose of Lyrica in the setting of renal failure. 100 mg twice a day -Chronic low back pain: MS Contin 15 mg every 12, [place] 7.5 twice a day when necessary -Anxiety depression not otherwise specified Wellbutrin XL 100 mg twice a day -Hyperlipidemia Lipitor 40 mg daily at bedtime -Right ankle lateral, diabetic wound, stage II acute. Wound culture positive for Streptococcus agalactiae and Staphylococcus aureus. IV Ancef initially. Follow with ID Patient has poor distal pulses. February 01 wound was debrided by Dr. Ibarra. Clean base. -Acute L1 30% wedge fracture secondary to fall LSO brace. Be followed by Dr. Damon -Acute delirium multifactorial. Slow to respond -Acute ileus, NG tube for decompression.; clamped.: Corrected Being followed by surgery. -Possible colitis /fistula on computed tomography scan. IV Flagyl. Cefepime. Followed by surgery -Normocytic anemia, multifactorial. Chronic disease component, hospital- acquired/blood draw and infection. Received blood transfusion IV Flagyl,/IV cefepime. awaiting out of town family to arrive by March 03 ; and then wanting comfort measures. Prognosis guarded
[2022-02-28 13:34] LABS: Glucose,Whole Blood 196 mg/dL (70-110)
[2022-02-28 17:53] LABS: Glucose,Whole Blood 177 mg/dL (70-110)
[2022-02-28 23:25] LABS: Glucose,Whole Blood 158 mg/dL (70-110)
[2022-03-01] MEDS: INSULIN ASPART (NovoLOG) 100 UNIT/ML VIAL SQ SCH ×3 (00:06→13:43)
[2022-03-01 05:40] LABS: Glucose,Whole Blood 168 mg/dL (70-110)
[2022-03-01 06:15] LABS: ABG Base Excess -1.1 mmol/L; ABG HCO3 26 mmol/L (21-25); ABG Oxygen Saturation 97.7 % (94-97); ABG PCO2 57 mmHg (35-45); ABG PH 7.27 (7.35-7.45); ABG PO2 99 mmHg (83-108); ABG TCO2 28 mmol/L (19-24)
[2022-03-01 06:22] LABS: Allen Test Performed? No
[2022-03-01] MEDS: BUDESONIDE 1 MG/2 ML NEBU INHALATION SCH (07:38)
[2022-03-01] MEDS: IPRATROPIUM-ALBUTEROL 3 ML NEB INHALATION SCH ×2 (07:38→11:21)
[2022-03-01] MEDS: PREGABALIN 100 MG CAP PO SCH (07:55)
[2022-03-01] MEDS: AMIODARONE 200 MG TAB PO SCH (07:56)
[2022-03-01] MEDS: APIXABAN 2.5 MG TABLET PO SCH (07:56)
[2022-03-01] MEDS: CHLORHEXIDINE GLUCONATE 15 ML CUP MUCOUS MEM SCH (07:56)
[2022-03-01] MEDS: CALCIUM ACETATE 667 MG TAB PO SCH ×2 (07:56→13:44)
[2022-03-01] MEDS: COLLAGENASE 250 UNIT/GM OINTMENT 30 GM TUBE TOPICAL SCH (07:57)
[2022-03-01] MEDS: METOPROLOL TARTRATE 25 MG TAB PO SCH (07:57)
[2022-03-01] MEDS: LACTULOSE 20 GM/30 ML CUP PO SCH (07:57)
[2022-03-01] MEDS: PANTOPRAZOLE 40 MG/10 ML VIAL IVP SCH (07:58)
[2022-03-01] MEDS: CEFEPIME 1 GM in SODIUM CHLORIDE 0.9% 50 ML IVPB SCH (08:03)
[2022-03-01] MEDS: MIDODRINE 5 MG TAB PO SCH ×2 (08:03→13:44)
[2022-03-01] MEDS: levETIRAcetam IV 500 MG in SODIUM CHLORIDE 0.9% 100 ML IVPB SCH (08:03)
[2022-03-01 09:21] VITALS: TEMP 98.5
--- NOTE | 2022-03-01 09:23 | XR ---
EXAMINATION TYPE: XR chest 1V portable DATE OF EXAM: 03/01/2022 8:40 AM COMPARISON: Chest radiographs from 02/26/2022 TECHNIQUE: XR chest 1V portable Portable AP radiograph of the chest. CLINICAL INDICATION:Male, 61 years old with history of resp failure; FINDINGS: Lungs/Pleura: Low lung volumes are present. There is no evidence of pleural effusion, focal consolida tion, or pneumothorax. Medium after work eyeball Pulmonary vascularity: Unremarkable. Heart/mediastinum: Cardiomediastinal silhouette is unremarkable. Musculoskeletal: No acute osseous pathology. Lines/Tubes: Tracheostomy cannula tip projecting over the trachea. Right central venous catheter with distal tip at the cavoatrial junction. IMPRESSION: Low lung volumes with basilar atelectasis. No significant change from prior in positioning. Right central venous catheter and tracheostomy cannula is in appropriate position.
--- NOTE | 2022-03-01 09:38 | P.PN ---
Subjective Patient is seen in follow-up for acute kidney injury. Started on hemodialysis 02/09/2022. Patient has been receiving daily dialysis mostly for volume overload. Patient remains on the vent. FiO2 at 45% Off of sedation and not following commands. Family present at bedside. They have decided to proceed with comfort care measures today. Objective - Vital Signs Vital signs: Vital Signs Temp 98.5 F 03/01/22 09:00 Pulse 108 H 03/01/22 09:00 Resp 17 03/01/22 09:00 BP 90/51 03/01/22 09:00 Pulse Ox 100 03/01/22 09:00 FiO2 45 03/01/22 07:20 Intake & Output 02/28/22 03/01/22 03/01/22 18:59 06:59 18:59 Intake Total 1530.0 1619 113 Output Total 55 200 15 Balance 1475.0 1419 98 Weight 155 kg Intake: IV 470.0 449 23 0.9 190 260 20 Cefepime 1 gm In Sodium 50.0 50 Chloride 0.9% 50 ml @ 12. 5 mls/hr IVPB Q12HR CRUZ Rx#:[id number] Pressure bags 30 39 3 levETIRAcetam IV 500 mg 100 In Sodium Chloride 0.9% 100 ml @ 400 mls/hr IVPB Q12HR CRUZ Rx#:[id number] metroNIDAZOLE-NS PMX 500 200 mg In Saline 1 100ml.bag @ 100 mls/hr IVPB Q8HR CRUZ Rx#:[id number] Intake, IV Titration 100 Amount levETIRAcetam IV 500 mg 100 In Sodium Chloride 0.9% 100 ml @ 400 mls/hr IVPB 1400 CRUZ Rx#:[id number] Tube Feeding 900 1170 90 Other 60 Output: Urine 55 200 15 Other: Voiding Method Indwelling Catheter Indwelling Catheter ABP, PAP, CO, CI - Last Documented Arterial Blood Pressure 151/61 - Exam Patient remains intubated. Not following commands 2+ edema noted bilateral lower extremities FiO2 at 45%. - Labs CBC & Chem 7: 02/26/22 04:28 02/28/22 06:00 Labs: Abnormal Lab Results - Last 24 Hours (Table) 02/28/22 02/28/22 02/28/22 Range/Units 11:48 13:31 17:51 ABG pH (7.35-7.45) ABG pCO2 (35-45) mmHg ABG HCO3 (21-25) mmol/L ABG Total CO2 (19-24) mmol/L ABG O2 Saturation (94-97) % POC Glucose (mg/dL) 171 H 196 H 177 H (70-110) mg/dL 02/28/22 03/01/22 03/01/22 Range/Units 23:13 05:18 05:39 ABG pH 7.27 L (7.35-7.45) ABG pCO2 57 H (35-45) mmHg ABG HCO3 26 H (21-25) mmol/L ABG Total CO2 28 H (19-24) mmol/L ABG O2 Saturation 97.7 H (94-97) % POC Glucose (mg/dL) 158 H 168 H (70-110) mg/dL Assessment and Plan Assessment: 1. Acute kidney injury ATN secondary to sepsis and hypotension. 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 Started on hemodialysis on 02/09/2022. Oliguric. Serum creatinine in April 2019 was 0.8. No evidence of obstruction on CAT scan. Status post hemodialysis yesterday. Patient tolerated treatment well. Volume status has improved. Patient will be maintained on a Wednesday schedule. 2. Acute hypoxic, hypercapnic respiratory failure currently on the vent 3. MSSA bacteremia initially on vancomycin and currently on cefazolin. Last blood cultures drawn on 02/04/2022 are negative, source is right foot ulcer 4. Hyperphosphatemia associated with acute kidney injury currently maintained on PhosLo 5. Volume overload, slowly improving with UF with hemodialysis 6. Right lung near complete opacification scheduled for bronchoscopy today Plan: Agree with plans to proceed with comfort care measures No plans for hemodialysis.
[2022-03-01] MEDS ORDERED: MORPHINE SULFATE 2 MG/ML SYRINGE IV PRN (11:40)
[2022-03-01] MEDS ORDERED: MORPHINE SULFATE 2 MG/ML SYRINGE IVP ONE (11:40)
[2022-03-01] MEDS ORDERED: MORPHINE SULFATE (100 MG/2 ML) 100 MG in SODIUM CHLORIDE 0.9% 100 ML IV SCH (11:45)
--- NOTE | 2022-03-01 11:56 | P.PN ---
Progress Note - Text Progress Note Date: 03/01/22 Hospital course This is a 61-year-old patient who follows with Dr. Sridhar Chan. Chronic stable medical conditions include diabetes, hypertension, hyperlipidemia, chronic low back problems, cigarette smoker. At the baseline uses a walker. Patient slipped in the bathroom falling on his buttock. Was not able to get up. By the EMS report he had fallen 24 hours prior to the picking him up. Patient been complaining of pain in the right rib cage in the lower back. X-ray was negative for fracture. Patient continued to have significant pain especially with deep breathing. Patient also had a congestive cough and wheezing. Some bloody sputum. Denies any fever and chills. Patient also complaining of urinary retention and requesting a Shepard catheter. at the bedside. No fever no chills. Orthopedics consulted for the same. Patient normally has a bowel movement once a week. Patient also has a wound on the right foot lateral part of the ankles for about a week. Ischemic changes. From rubbing against a bedpost. Patient's INR in the ER was greater than 10. Was given vitamin K. 10 mg Patient bit with Coumadin toxicity, given vitamin K, acute COPD exacerbation, uncontrolled atrial flutter put on Lopressor, right chest wall pain. Computed tomography scan lumbar spine and chest was ordered. Large wound on the right lateral malleolus-ID and vascular consulted.. IV cefepime. February 01: Patient yesterday to see refused his computed tomography scan of the chest and lumbar spine. Done today. Right-sided rib fractures, pulmonary contusion confirm. L1 vertebral body 30% wedge compression fracture. Patient's girlfriend the bedside. It was discussed in detail with her. Patient wanting again and again to pull out his NG tube. Requests the to stay with the patient. Patient is also had the dark aspirate from the stomach for which she has NG tube. Surgery was consulted for the same. Also this morning right foot wound was debrided by Dr. Ibarra from vascular. Wound base was relatively clean. No undermining or tunneling. February 02: Delirious. NG tube to suction. Has been in restraints because point NG TUBE several times. Mumbling to himself. Dressing over the right ankle. Not in distress. Ileus. Chest x-ray showing right lower lobe/ate lectasis. February 03: Hospital computer system was down. Patient remains delirious. Nasal cannula. Lethargic. Family the bedside. Antibiotics. A. fib uncontrolled. EEG evidence of metabolic encephalopathy. No clear-cut epileptiform activity. Started on Keppra by neurology. February 04: ICU: Girlfriend at the bedside. In atrial fibrillation uncontrolled. On IV Cardizem and IV amiodarone. NG tube to suction. Patient lethargic. Multiple breathing. 2 L. Oxygen. February 05: ICU. Atrial fibrillation better controlled this morning. Cardizem discontinued. Patient respiratory status worsened this morning and patient is intubated. FiO2 45 and a PEEP of 5. Atrial fibrillation, controlled. Drips include amiodarone, propofol, levo fed. Discussed with girlfriend the bedside. Understands prognosis guarded. February 06: ICU: Ventilated. FiO2 45 and a PEEP of 5. NG tube is clamped. On IV propofol. Sedated. Heart rate better controlled. Was started on Coumadin yesterday. Worsening renal function. Nephrology consulted. 02/07/2022 Patient is currently in the MICU and on mechanical ventilator. Tidal volume of 400, FiO2 40% and PEEP of 5. Patient is off pressor support today. Currently on propofol and is also on tube feeding. Chest x-ray showed stable exam with stable support lines and tubes. Correlate for congestive heart failure. Patient was given a dose of IV Lasix. Laboratory data showed WBC 18.4 hemoglobin 11.6 and platelets 458 Sodium 141 potassium 3.7 chloride 103 bicarb is 18 BUN 49 and creatinine 3.73 and calcium 7.3. INR is 2.2. Patient is being followed by nephrology cardiology and critical care team. 02/08/2022 Patient is currently on mechanical ventilator and sedated with propofol. Assist control with FiO2 40% and tidal volume of 400 and PEEP of 5. Patient is being continued on antibiotics above cefepime and Flagyl. Sputum gram stain gram-negative bacilli and Lynda. Chest x-ray today showed findings suggestive of slightly worsening CHF exacerbation as there is cardiomegaly with mild to moderate central venous congestion and small to moderate-sized bilateral pleural effusion. Laboratory test showed WBC increased to 23.6 hemoglobin 9.1 and platelets 162 INR 3.0 Sodium 139 potassium 4.3 chloride 113 bicarb is 40 BUN 54 and creatinine worsening to 4.36 February 09: I resumed the care of patient today ICU: Med: 40/5. Received vitamin K 5 mg IV to bring the INR down for dialysis catheter. Drips include bicarbonate, propofol, epinephrine. Patient is a stage II coccyx is ulcer. Plan is to change the NG tube to on G-tube today. For possible colitis/fistula on antibiotics. at the bedside. February 10: ICU. Ventilator 50/5. Hemodialysis catheter placed last night. Hemodialyzed yesterday and getting dialyzed today. Remains in atrial fibrillation heart rate uncontrolled. Getting up sedation holiday. Drips include bicarbonate and norepinephrine. Propofol currently held. 2 feeding at 46 mL an hour. Does open eyes. February 11: ICU. Ventilator. 50/5. Third day for hemodialysis. 1.5 L to be removed today. Back on propofol. Drips include bicarbonate, norepinephrine, propofol. On G-tube feeding. Patient back in sinus rhythm. Bag and tracheostomy to planning for next week. 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 IV antifungal started by ID. February 12: ICU: Ventilator: 40/5. Telemetry shows sinus rhythm. Drips include propofol and norepinephrine. On G-tube feeding. Discussed with the at the bedside. Understands prognosis guarded. IV antibiotics and antifungals. February 13: ICU: Ventilator: 40/5. PEG tube placed yesterday by Dr. Cornejo. Drips include bicarbonate, propofol, norepinephrine. Getting hemodialysis done today. February 14: ICU: Medicated. 2 feeding at 65 mL an hour. This included propofol and norepinephrine. Hemodialysis done today. Sinus rhythm. February 15: ICU: Ventilator: 40/5. 2 feeding at 65 mL an hour. Drips include propofol and norepinephrine. No hemodialysis today. at the bedside. Discussed. 02/16/2022 Patient seen and evaluated and follow-up continues to be in the ICU on mechanical ventilation with sedation with multiple medical consultations following. Patient is currently receiving hemodialysis and continues with a temporary dialysis catheter. Patient is still full code and overall prognosis remains extremely poor and guarded. Patient's FiO2 is 40% with a PEEP of 5. Patient also continues on antifungal along with cefepime and metronidazole with infectious disease following. Patient is sedated on propofol continues on Levophed as well. WBC is 12.9 with hemoglobin of 8.7, sodium is 134 with a potassium of 4.5 current creatinine is 4.69 with a BUN of 66. Patient is maintained on tube feedings and has received the PEG tubing is scheduled for tracheostomy tentatively today if OR available. Again overall prognosis remains extremely guarded. 02/17/2022 Patient continues to be in the ICU on mechanical vent and FiO2 remains 40% with a PEEP of 5. Patient continues on norepinephrine with multiple medical consultations following. Patient continues on propofol for sedation and also was maintained on hemodialysis almost daily. Patient continues on cefepime along with an antifungal and Flagyl with anxiety following sputum culture showing 16 oh troph ammonias maltophilia with Lynda most recent blood cultures have been negative. Patient is afebrile although WBC is elevated at 14.5 and hemoglobin is 8.9, BUN is 61 with a creatinine of 4.55, sodium is 135 and sodium bicarb tablets have been discontinued. Magnesium was 1.9. Plan is tentatively scheduled for tracheostomy with general surgery today post hemodialysis. Overall prognosis is extremely guarded. Chest x-ray shows continued bilateral pleural effusions with no significant change from previous day. Patient is maintained on tube feedings via PEG tube although on hold for surgery today 02/18/2022 Patient is seen and evaluated continues to be in the ICU with multiple medical consultations following. Patient is status post tracheostomy placement with Dr. Villegas yesterday evening and tolerating well with no leaks noted. Patient continues on FiO2 of 40% with a PEEP of 5. Patient undergoing sedation holiday and propofol was recently turned off. Patient is awake and opening eyes spontaneously although not following commands on exam. Patient is looking around the room and mouthing words with no comprehension. Patient with extensive wounds of the sacro-coccyx region that are currently unstageable and general surgery is following and may possibly require debridement of these areas. Patient is status post debridement of the right foot previously. Patient is maintained on antibiotics along with antifungal's and infectious disease is following. Patient is afebrile and WBC is 10.6, hemoglobin is 8.4, patient is also with a BUN of 50 and creatinine is 3.78, magnesium is 1.8. Patient is being closely monitored by nephrology with a temporary site of the right femoral receiving daily dialysis. Patient continues on low-dose Levophed and working on weaning as tolerated. PEG tube feedings are at goal and t olerating. Overall prognosis remains extremely guarded. 02/19/2022 Patient is seen in follow-up this morning and has been off propofol since yesterday although continues to not follow commands. Multiple medical consultations following. Patient is status post recent tracheostomy and also PEG tube placement and has been resumed on tube feedings and tolerating at goal. Patient is continuing on hemodialysis with a right groin temporary catheter. Chest x-ray this morning shows some possible progression of pleural effusions and airspace disease or atelectasis especially in the right lung. Nursing staff questioning about anticoagulation and his Coumadin was on hold for tracheostomy and patient is being started on eliquis. Patient continues on antibiotics as well in the form of cefepime and Flagyl and antifungal's with anxiety following. Patient also continues on low-dose Levophed. Patient continues on mechanical ventilation via tracheostomy with an FiO2 of 60. Patient scheduled to receive dialysis again today. General surgery is following and may be required for debridement of the decubitus ulcers once more stable. Pulmonary discussing possible thoracentesis in the near future. Patient is currently afebrile. Prognosis remains extremely guarded. February 20: Patient was being covered by [facility] last 4 days. ICU. Ventilator. FiO2 16 a PEEP of 8. Has a PEG and trach. Awake, drowsy. On norepinephrine. at the bedside. February 21: ICU: Ventilator. FiO2 60 PEEP of 8. Hemodialysis today. Drips include norepinephrine. Sinus tachycardia. Does open eyes. Sticks his tongue. Drowsy. Not really following commands February 22: ICU: Ventilator. FiO2 16 a PEEP of 8. Patient is in and out of atrial fibrillation. Does open eyes and sticks his tongue out intermittently. Nonpurposeful. Currently on levo fed drip small dose. Midodrine has been added. 2 feeding at 25 mL an hour. at the bedside. February 23: ICU: Ventilator. FiO2 50 PEEP of 12. Drips include norepinephrine. Decreased Accu-Chek. tube feeding increased. February 24: ICU: Ventilator: FiO2 50 and a PEEP of 12. 2 feeding at 40. Patient is off levo fed. Lethargic. EEG yesterday showed encephalopathy obvious evidence of seizure. Keppra ordered per neurology. Ultrafiltration hemodialysis today. Significant edema. February 25: ICU: Ventilator: FiO2 50 and a PEEP of 8. Atrial fibrillation rate controlled. 2 feeding at 90 mL an hour. On a small dose of epinephrine. Patient lethargic. Dr. Ryan met with the family yesterday. Comfort measures were suggested. Family will talk further. February 26: ICU: Ventilator. Atrial fibrillation. Lethargic. Family looking into comfort measures. Waiting for family to come in from out of state. February 27: ICU: Ventilator. 45/8. Lethargic. Awaiting out of town family to come in before comfort measures on March 03. February 28: ICU: Ventilator 45/8. Atrial fibrillation rate controlled. 2 feeding. Lethargic March 01: ICU: Ventilator for deficiency. 2 feeding. Patient's and [id number] at the bedside. They decided to evidently extubate the patient. Dr. Ryan informed. Discussed with him. Prognosis poor. Active Medications Acetaminophen (Acetaminophen Tab 325 Mg Tab) 650 mg PO Q6HR PRN PRN Reason: Mild Pain or Fever > 100.5 Last Admin: 02/26/22 19:01 Dose: 650 mg Albuterol/Ipratropium (Ipratropium-Albuterol 3 Ml Neb) 3 ml INHALATION RT-QID [facility] Last Admin: 03/01/22 11:21 Dose: 3 ml Amiodarone HCl (Amiodarone 200 Mg Tab) 200 mg PO BID [facility] Last Admin: 03/01/22 07:56 Dose: 200 mg Apixaban (Apixaban 2.5 Mg Tablet) 2.5 mg PO BID [facility]; Protocol Last Admin: 03/01/22 07:56 Dose: 2.5 mg Artificial Tears (Artificial Tears-Hypromellose Drops 15 Ml Btl) 2 drops BOTH EYES TID PRN PRN Reason: Dry Eye(s) Budesonide (Budesonide 1 Mg/2 Ml Nebu) 1 mg INHALATION RT-BID [facility] Last Admin: 03/01/22 07:38 Dose: 1 mg Calcium Acetate (Calcium Acetate 667 Mg Tab) 667 mg PO TID-W/MEALS [facility] Last Admin: 03/01/22 07:56 Dose: 667 mg Calcium Carbonate/Glycine (Calcium Carbonate 500 Mg Chewable) 1,000 mg PO Q4HR PRN PRN Reason: Dyspepsia Last Admin: 01/31/22 14:29 Dose: 1,000 mg Chlorhexidine Gluconate (Chlorhexidine Gluconate 15 Ml Cup) 15 ml MUCOUS MEM BID [facility] Last Admin: 03/01/22 07:56 Dose: 15 ml Collagenase (Collagenase 250 Unit/Gm Ointment 30 Gm Tube) 1 applic TOPICAL DAILY [facility]; Protocol Last Admin: 03/01/22 07:57 Dose: 1 applic Darbepoetin Mann (Darbepoetin Mann 60 Mcg/0.3 Ml Syringe) 60 mcg SQ Q7D [facility] Last Admin: 02/25/22 18:05 Dose: 60 mcg Dextrose/Water (Dextrose 50% Syringe 50 Ml) 25 ml IVP PER PROTOCOL PRN; Protocol PRN Reason: Hypoglycemia Last Admin: 02/23/22 05:39 Dose: 25 ml Dextrose/Water (Dextrose 50% Syringe 50 Ml) 50 ml IVP PER PROTOCOL PRN; Protocol PRN Reason: Hypoglycemia Cefepime HCl 1 gm/ Sodium (Chloride) 50 mls @ 12.5 mls/hr IVPB Q12HR [facility] Last Admin: 03/01/22 08:03 Dose: 12.5 mls/hr Norepinephrine Bitartrate 32 (mg/ Sodium Chloride) 250 mls @ 3.246 mls/hr IV .Q24H [facility]; Protocol Last Admin: 02/28/22 23:52 Dose: Not Given Levetiracetam 500 mg/ Sodium (Chloride) 105 mls @ 400 mls/hr IVPB Q12HR [facility] Last Admin: 03/01/22 08:03 Dose: 400 mls/hr Levetiracetam 500 mg/ Sodium (Chloride) 105 mls @ 400 mls/hr IVPB 1400 [facility] Last Admin: 02/28/22 15:37 Dose: Not Given Morphine Sulfate 100 mg/ (Sodium Chloride) 102 mls @ 1.02 mls/hr IV .Q24H [facility]; Protocol Insulin Aspart (Insulin Aspart (Novolog) 100 Unit/Ml Vial) 0 unit SQ Q6HR [facility]; Protocol Last Admin: 03/01/22 05:48 Dose: 2 unit Lactulose (Lactulose 20 Gm/30 Ml Cup) 30 gm PO DAILY [facility] Last Admin: 03/01/22 07:57 Dose: Not Given Metoprolol Tartrate (Metoprolol Tartrate 25 Mg Tab) 25 mg PO BID [facility] Last Admin: 03/01/22 07:57 Dose: Not Given Midodrine (Midodrine 5 Mg Tab) 10 mg PO AC-TID [facility] Last Admin: 03/01/22 08:03 Dose: 10 mg Miscellaneous Information (Potassium Replacement Protocol 1 Each Misc) 1 each MISCELLANE DAILY PRN; Protocol PRN Reason: Per Protocol Miscellaneous Information (Magnesium Replacement Protocol 1 Each Misc) 1 each MISCELLANE DAILY PRN; Protocol PRN Reason: Per Protocol Morphine Sulfate (Morphine Sulfate 2 Mg/Ml Syringe) 2 mg IV Q15M PRN PRN Reason: Breakthrough Pain Naloxone HCl (Naloxone 0.4 Mg/Ml 1 Ml Vial) 0.2 mg IV Q2M PRN PRN Reason: Opioid Reversal Ondansetron HCl (Ondansetron 4 Mg/2 Ml Vial) 4 mg IVP Q8HR PRN PRN Reason: Nausea And Vomiting Last Admin: 02/02/22 08:41 Dose: 4 mg Pantoprazole Sodium (Pantoprazole 40 Mg/10 Ml Vial) 40 mg IVP BID [facility] Last Admin: 03/01/22 07:58 Dose: 40 mg Pregabalin (Pregabalin 100 Mg Cap) 100 mg PO BID [facility] Last Admin: 03/01/22 07:55 Dose: 100 mg Past medical history to include: COPD, diabetes, hypertension, hyperlipidemia, back problems, TB, atrial fibrillation, on Coumadin Social history: Smokes a pack a day for close to 50 years. Stop doing alcohol some time ago. Lives with his significant other Sandra. Does use a walker. 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 Conjunctiva normal. HEENT: External appearance of nose and ears normal, oral cavity dry, tracheostomy NECK: JVD not raised; masses not palpable. HEART: Heart sounds regular; edema present LUNGS: Respiratory rate increased; decreased breath sound, ABDOMEN: Soft, distended, nontender, liver spleen not palpable, no masses pa lpable. PEG tube. PSYCH: Unable to assess, patient lethargic DERMATOLOGICAL: Wound on right ankle lateral malleolus. Under dressing. Stage II coccygeal breakdown. See nursing notes INVESTIGATIONS, reviewed in the clinical context: February 28: Potassium 4.4 BUN 45 creatinine 2.5 to February 27: Potassium 4.2 BUN 41 creatinine 2.68 February 15: WBC 13.9 hemoglobin 9.6 platelets 96 potassium 4.4 BUN 59 creatinine 4.21 procalcitonin 2.05 Acute hepatitis screen: Negative Complement C3 78, complement C4 19.6 February 11: Sodium 138 potassium 4.4 creatinine 4.19 Sputum: Stenostrophonas maltophilia, Lynda albicans Computed tomography scan abdomen and pelvis [February 06] 6 mm stone in the right renal collecting system. Some circumferential wall thickening of the cecum and ascending colon. Distention of the rectum 7.5 cm with solid stool. EEG: Evidence of encephalopathy. No obvious epileptiform activity. 2-D echocardiogram: EF 60-65%. Renal ultrasound: Shows bilateral normal cortical medullary thickness. February 01: WBC 17.1 hemoglobin 14.8 UA: Blood large, leukoesterase moderate WBC 28 nitrite negative Lumbar spine CT: Anterior wedge compression deformity of L1. Multiple level DJD. 7 mm calculus right renal pelvis. CT chest without contrast: Right lateral eighth through 10th rib fractures with associated gas trace hemothorax right lower lobe pulmonary contusion/ate lectasis. Patchy) disease left upper lobe. WBC 25.8 hemoglobin 14.1 platelets 217 INR greater than 10 sodium 131 potassium 3.9. 24 creatinine 1.8 to EKG tracing personally reviewed by me-atrial flutter. Rate 132 Foot/Lumbar/sacral coccyx: Spondylitic changes. No fracture. Chest x-ray film personally reviewed by me-clinically. Possible hyperinflation Assessment and plan: -Coumadin toxicity. INR greater than 10. On presentation: 10 mg vitamin K in the ER. Hemoptysis on presentation. Coumadin resumed on February 05.. - right lung contusion.-Secondary to fall. hemoptysis on presentation -Pneumonia, secondary to Stenostrophonas maltophilia, Lynda albicans: Slow to respond IV cefepime, IV anidulafungin -Sepsis with positive blood cultures MSSA, likely source right ankle. From January 31. IV cefepime. February 04 blood culture negative -Acute hypoxic respiratory failure multifactorial including pneumonia/COPD. Ventilator assisted: Slow to respond -Acute hypoxic respiratory failure, multifactorial: ventilator support,: Slow to respond Patient intubated on February 05 -Acute COPD exacerbation, with chronic bronchitis component in a current smoker: Slow to respond DuoNeb. Nebulized Pulmicort. Mucinex. -Chronic nicotine dependence, cigarette smoker Nicotine patch -Paroxysmal atrial flutter,: Back in sinus rhythm Lopressor 50 mg 3 times a day. 2-D echocardiogram unremarkable. Oral amiodarone Coumadin started on February 05 -Possible CK D with possible acute component. creatinine was 0.8 in April 2019. Renal ultrasound unremarkable. UA shows trace protein. IV fluids.. -Acute kidney injury, ATN, likely cardiorenal syndrome.: Not improving Follow with nephrology. Daily Hemodialysis started February 09 -Acute right-sided 8-10 ribs fracture secondary to fall K pad -Diabetes mellitus type 2, chronically on oral hypoglycemic Sliding scale insulin. Increase tube feeding. DC Levemir -Diabetic peripheral neuropathy Decreased dose of Lyrica in the setting of renal failure. 100 mg twice a day -Chronic low back pain: MS Contin 15 mg every 12, Hortense 7.5 twice a day when necessary -Anxiety depression not otherwise specified Wellbutrin XL 100 mg twice a day -Hyperlipidemia Lipitor 40 mg daily at bedtime -Right ankle lateral, diabetic wound, stage II acute. Wound culture positive for Streptococcus agalactiae and Staphylococcus aureus. IV Ancef initially. Follow with ID Patient has poor distal pulses. February 01 wound was debrided by Dr. Ibarra. Clean base. -Acute L1 30% wedge fracture secondary to fall LSO brace. Be followed by Dr. Damon -Acute delirium multifactorial. Slow to respond -Acute ileus, NG tube for decompression.; clamped.: Corrected Being followed by surgery. -Possible colitis /fistula on computed tomography scan. IV Flagyl. Cefepime. Followed by surgery -Normocytic anemia, multifactorial. Chronic disease component, hospital- acquired/blood draw and infection. Received blood transfusion IV Flagyl,/IV cefepime. Continue to do poorly. Family has decided for terminal extubation. Prognosis poor. Discussed.
--- NOTE | 2022-03-01 12:02 | P.PN ---
Subjective Progress Note Date: 03/01/22 Principal diagnosis: Multiple right-sided rib fractures and a right sided pulmonary contusion with compression fractures of lumbar spine This is a extremely debilitated 61-year-old male patient who is known to monitor milligrams and comorbidities and I was asked to evaluate this patient because of a fall and limited hemoptysis. The patient is known to have a combination of i ssues including diabetes mellitus and diabetic peripheral neuropathy and the patient has had previous episodes of falls and he has issues with chronic atrial flutter maintained on long-term anticoagulation with warfarin. He is morbidly obese. He has hypertension and hyperlipidemia as comorbid conditions along with chronic kidney disease. He is morbidly obese. He has history of COPD and is a chronic smoker. He comes in to the hospital after he had a fall at home. He was the bathroom and he slept and he landed on his left chest. Here in the hospital, the patient was found to be Coumadin toxic and his INR was above 10. He did have some limited hemoptysis and coffee-ground emesis without any melanotic stools. No abdominal pain. He was noted to have a large ulcer over the right ankle/malleolus area which is a chronic wound. Immediately the patient was given vitamin K. This computed tomography scan of the chest shows some right lateral eighth through 10th rib fractures with trace amount of right- sided pleural effusion and right basilar atelectasis related to underlying pulmonary contusion. No evidence of any pneumothorax. Some limited patchy airspace disease in the left upper lobe probably inflammatory in the same time the patient had dilated pulmonary arteries indicating possibility of pulmonary hypertension and a fluid and gas-filled distended stomach. I noted the patient has not had a CAT scan of the brain and a CAT scan was done that showed no acute intracranial process. There was a remote left occipital lobe injury along with some nonspecific white matter changes secondary to chronic microangiopathy. This computed tomography scan of the lumbar spine showed acute anterior wedge compression deformity of L1 vertebral body with a 30% loss in height along with multilevel degenerative disc changes and a 7 mm In the right pelvis. Patient was already seen by general surgery and orthopedic surgery. Lumbar spine x-ray that was done on 2021 showed no acute fracture. The patient was also seen by vascular surgery for a right lateral foot wound and this is a stage II wound 8.5 x 4 cm in size. Debridement was done by vascular surgery. 02/22/2022, neurologically unchanged and the patient remains off sedation and is not following any commands. He is essentially the same as yesterday. He does movements and these are essentially nonpurposeful movements. I have asked neurology to reevaluate the patient for any further input. Meanwhile, he remains on a mechanical ventilator. The right lung is essentially opacified with a pleural effusion and atelectasis. I performed a bronchoscopy and remove mucous plug from the right lung. This caused some limited improvement. For the most part, the right lung is still opacified. He remains on assist control mode of mechanical ventilation at the rate of 24, tidal volume of 500, FiO2 of 60% and a PEEP of 8. Blood gases from today showed a pH of 7.37 with a pCO2 of 45 and pO2 of 75. The patient's condition essentially unchanged. He is hemodynamically stable. His still on minimal doses of pressors which is being weaned off and currently is on norepinephrine at 0.02 mcg/kg per minute.. He is afebrile and the repeat cultures from the bronchioloalveolar lavage of the right lung showed no microbial growth. Hemoglobin today is at 6.9. No signs of any active bleeding. Last hemodialysis session was yesterday and no plans for dialysis today. He is having bowel movement activity. She'll feeds were restarted and the patient is on vital high protein at the rate of 25. His rest of the blood work shows a white cell count of 8 with a hemoglobin of 6.9 and platelet count of 161. Sodium is 141 BUN is a 39 and a creatinine of 3.11. 02/23/2022, patient remains in the ICU, intubated, mechanically ventilated, not following any instructions or any commands. Patient opens eyes, but no responses whatsoever. He grimaces to painful stimuli only. He is on assist control rate of 24 to volume 500 FiO2 60% PEEP of 12. ABG showed a pO2 of 108 pCO2 42 pH of 7.39, hence his FiO2 was cut down from 60% to 50%. Patient is still requiring norepinephrine at 0.01 mcg/kg/m however his blood pressure was noted to be stable enough this morning and I recommended stopping norepinephrine. Remains on IV fluids at KVO, and he is on enteral feeding receiving vital Hb at 25 mL per hour which is his goal. Patient is still getting hemodialysis. Chest x-ray continues to show opacification of the right lung, ultrasound showed small pleural effusion does not correlate with the finding on the chest x-ray, and I am not planning thoracentesis since it is quite risky considering his body size. Not to mention the fluid is not large enough to be drained. Labs were reviewed that he set his 8 hemoglobin is 8.4 electrolytes are normal BUN is 46 creatinine 3.38. Pro-calcitonin remains a bit high at 1.38 blood sugar is 82 this morning. C-reactive protein is 5.6 Reevaluated today on 02/24/2022, remains in the ICU, intubated and mechanically ventilated. Patient is on assist control rate of 24 tidal volume 500 FiO2 50% PEEP of 12 ABG showed a pO2 of 99 pCO2 42 pH of 7.39 hence no changes were made in the ventilator settings. Patient has been off propofol now for the last 6 days and his mental status is not showing any improvement. Patient remains obtunded, not arousable not following any instructions, remains on cefepime, and her access, Flagyl, he is also on eliquis, is receiving vital HPI at 40 mL per hour. EEG yesterday showed severe encephalopathy no seizure activity. Today I had a chance to discuss his overall status with sister and girlfriend and recommended comfort care measures since the situation is seems to be hopeless. And the prognosis is extremely poor. Both seem reasonable, and they will think about it. They will let me know if they decide to proceed with comfort care measures. CBC is unremarkable hemoglobin is 7.7, no evidence of active bleeding. Basic metabolic profile is normal BUN is 42 creatinine 3.11 patient is on hemodialysis. Chest x-ray today showed improvement in his opacification of the right lung, did not require thoracentesis and did not require repeat bronchoscopy. reevaluated today on 02/25/22, patient remains in the ICU, intubated and mechan ically ventilated. He is on assist control rate of 24th of volume 500 FiO2 50% and PEEP of 12. ABG showed a pO2 of 108 pCO2 45 pH of 7.35. Patient is still requiring norepinephrine at 0.02 micrograms per kilo per minute, is also on IV fluid at KVO, remains on vital a PE at 70 mL per hour. Patient is not requiring any sedation, patient is on cefepime, Eraxis, eliquis, today after reviewing his ABG, recommended cutting down the PEEP down to 8.WBC count is 6.2 hemoglobin is 7.8.basic metabolic profile is unremarkable, BUN is 41 and creatinine 3.07, chest x-ray continues to show bilateral airspace disease, but the opacification of the right lung is significantly improved Reevaluated today on 02/26/22, patient remains in the ICU, intubated and mechanically ventilated. He is on assist control rate of 24, 1 500 FiO2 50% PEEP of 8. ABG showed a pO2 of 111 pCO2 43 pH of 7.38, hence his FiO2 was cut down to 45%. Today the patient is not requiring any norepinephrine however he had to be placed on norepinephrine yesterday briefly when he was getting hemodialysis. Remains on enteral feeding, remains off sedation, not requiring any propofol, and his overall status is basically about the same. Patient does not respond to any stimuli, opens eyes only, continues to have some repetitive m ovement of his tongue, no purposeful movement. WBC count today is 6.8 hemoglobin is 7.7, basic metabolic profile is normal BUN is 43 creatinine 2.69 chest x-ray basically is about the same, continues to have bibasilar airspace disease, and possibly some pleural effusion. Reevaluated today on 02/27/22, patient remains in the ICU, intubated and mechanically ventilated, he is on assist control rate of 24 tidal volume 500 FiO2 45% PEEP of 8 ABG showed a pO2 of 105 pCO2 40 pH of 7.40. Patient remains on antibiotics in the form of Flagyl and cefepime, remains on eliquis, remains on hemodialysis, not much of a change management analyst the last 24 hours, patient is also on enteral feeding, he is not requiring any sedation, his mental status has never shown any improvement. Patient opens eyes, but he does not follow any instructions, and he does not seem to respond except opening eyes and repetitive movement of his tongue is noted. At any rate patient that was given a trial of pressure support and CPAP, but he was noted to have episodes of apnea, as I transition his mode of mechanical ventilation to IMV of 8 pressure support of 14 and will eventually go down on the IMV rate as tolerated. Chest x-ray is showing improvement in his bilateral airspace disease and bilateral congestive changes. Has been gradually improving with hemodialysis. And with antibiotics. His last bronchial washing from 02/20 has shown stenotrophomonas. And that's again being addressed by infectious disease on the case Reevaluated today on 02/28/22, remains the ICU, intubated and mechanically ventilated, patient has been tolerating pressure support of 14 and IMV of 8 fairly well over the last 24 hours. Today I cut down his IMV rate to 6. His respiratory rate is about 16-18., And his ABG today showed a pO2 of 84 pCO2 of 51 pH of 7.32. Patient is on IMV rate of 8 tidal volume 500 FiO2 45% and pressure support of 14. Remains on broad-spectrum antibiotics remains on eliquis. Remains on vital HPI. Today the patient is opening his eyes, he may follow very simple instructions like closing eyes and open eyes but not consistently. Patient does not wiggle his toes does not stick out his tongue and he does not follow any other instructions. Overall the patient is about the same. ABG as noted electrolytes are normal BUN is 45 creatinine 2.52, no chest x-ray was done today. Reevaluated today on 03/01/22, remains in the ICU intubated and mechanically ventilated. Patient has been in the hospital now for almost a month. Not much of a change clinically, remains on pressure support of 14, IMV of 6, tidal volume is 500, and PEEP of 8. Not much of a change management analyst the last 24 hours, mental status about the same, patient is difficult to arouse today, nonetheless he may wake up open his eyes only but no other responses. My understanding today in the family is considering to proceed with comfort care measures hence I plan to place the patient on trach collar, and also place him on a morphine drip. Chest x-ray continues to show by basilar atelectasis. ABG today showed a pO2 of 99 pCO2 57 pH of 7.27, blood sugar is 168. Patient remains on hemodialysis, remains on enteral feeding, and overall again there isn't much of progress in this patient since he was admitted to the ICU. Mostly his neurologi jabier status is about the same. Objective - Vital Signs Vital signs: Vital Signs Temp 98.5 F 03/01/22 09:00 Pulse 82 03/01/22 11:35 Resp 17 03/01/22 11:00 BP 130/64 03/01/22 11:00 Pulse Ox 99 03/01/22 11:00 FiO2 45 03/01/22 11:19 Intake & Output 02/28/22 03/01/22 03/01/22 18:59 06:59 18:59 Intake Total 1530.0 1619 587.0 Output Total 55 200 35 Balance 1475.0 1419 552.0 Weight 155 kg Intake: IV 470.0 449 197.0 0.9 190 260 60 Cefepime 1 gm In Sodium 50.0 50 25.0 Chloride 0.9% 50 ml @ 12. 5 mls/hr IVPB Q12HR CRUZ Rx#:[id number] Pressure bags 30 39 12 levETIRAcetam IV 500 mg 100 100 In Sodium Chloride 0.9% 100 ml @ 400 mls/hr IVPB Q12HR CRUZ Rx#:[id number] metroNIDAZOLE-NS PMX 500 200 mg In Saline 1 100ml.bag @ 100 mls/hr IVPB Q8HR CRUZ Rx#:[id number] Intake, IV Titration 100 Amount levETIRAcetam IV 500 mg 100 In Sodium Chloride 0.9% 100 ml @ 400 mls/hr IVPB 1400 CRUZ Rx#:[id number] Tube Feeding 900 1170 360 Other 60 30 Output: Urine 55 200 35 Other: Voiding Method Indwelling Catheter Indwelling Catheter Indwelling Catheter ABP, PAP, CO, CI - Last Documented Arterial Blood Pressure 143/55 - Exam GENERAL: Revealed a 61-year-old white male, intubated, in no distress Head atraumatic, normocephalic. Tracheostomy is intact EYES: Pupils equal. Conjunctiva normal. HEENT: External appearance of nose and ears normal, oral cavity grossly normal. NECK: JVD not raised; masses not palpable. HEART: Irregular irregular rhythm, normal S1 and S2, no S3 gallop, no murmur. LUNGS: Symmetrical chest expansion crackles at the bases diminished breath sounds on the right side ABDOMEN: Soft, distended, no megaly no rebound no guarding PSYCH: Could not assess patient remains obtunded Extremities: Bipedal edema noted. DERMATOLOGICAL: No change in his skin findings Large wound around the lateral malleolus right foot Gangrene Changes, wrapped with sterile dressing. Patient also has deep tissue injury to his coccyx/buttocks area MUSCULOSKELETAL:No Clubbing/cyanosis;muscles-grossly intact, NEUROLOGICAL: opens eyes, does not follow any instructions - Labs CBC & Chem 7: 02/26/22 04:28 02/28/22 06:00 Labs: Abnormal Lab Results - Last 24 Hours (Table) 02/28/22 02/28/22 02/28/22 Range/Units 13:31 17:51 23:13 ABG pH (7.35-7.45) ABG pCO2 (35-45) mmHg ABG HCO3 (21-25) mmol/L ABG Total CO2 (19-24) mmol/L ABG O2 Saturation (94-97) % POC Glucose (mg/dL) 196 H 177 H 158 H (70-110) mg/dL 03/01/22 03/01/22 Range/Units 05:18 05:39 ABG pH 7.27 L (7.35-7.45) ABG pCO2 57 H (35-45) mmHg ABG HCO3 26 H (21-25) mmol/L ABG Total CO2 28 H (19-24) mmol/L ABG O2 Saturation 97.7 H (94-97) % POC Glucose (mg/dL) 168 H (70-110) mg/dL Assessment and Plan Assessment: Impression: Acute hypercapnic respiratory failure, intubated on 02/05/2022 underwent tracheostomy on 02/17 Status post tracheostomy on 02/17, patient was a failure to wean. Remains a failure to wean Acute metabolic encephalopathy Right sided rib fractures, traumatic, secondary to fall, Right sided pulmonary contusion. Anterior wedge compression fracture of L1 Hemoptysis secondary to contusion and exacerbated by Coumadin coagulopathy Underlying COPD and chronic smoking Coumadin toxicity with INR above 10 on admission, recovered History of frequent falls. Metabolic encephalopathy, acute, being addressed by neurology on the case. Chronic atrial fibrillation. Acute on Chronic kidney disease stage III. Stage II right ankle wound requiring debridement and positive for MSSA/staph aureus and strep agalactiae Positive bacteremia, however his blood cultures have been negative from 02/04 and 02/05. Diabetic peripheral neuropathy History of Nephrolithiasis Nonspecific colitis Perianal fistula Recommendation: Continue ventilatory support, and tracheostomy care. Continue IMV of 6 instead of 8 today. pressure support of 14 and tidal volume of 500, FiO2 45%. Continue IV fluid at KVO Continue enteral feeding/nutritional support Continue GI and DVT prophylaxis Continue eliquis Continue bronchodilators Continue Keppra Continue metoprolol Continue amiodarone. Continue midodrine. Continue insulin coverage. Trach collar and comfort care measures if family is willing to proceed with comfort care measures today. And stop all medications above if comfort care is to be pursued today Critical care time is over 30 minutes Time with Patient: Greater than 30
[2022-03-01 13:43] VITALS: BP 124/62; PULSE 93; RESP 20
--- NOTE | 2022-03-01 14:02 | P.DS ---
Providers Date of admission: 01/31/22 05:07 Expected date of discharge: 03/01/22 Attending physician: Derrick Mcdaniel Consults: 01/31/22 04:46 Consult Physician Urgent Consulting Provider: Jarad Gil Consult Reason/Comments: Cellulitis with necrotic tissue Do you want consulting provider notified?: Yes, Notify in am 01/31/22 16:41 Consult Physician Routine Consulting Provider: Ford Delatorre Consult Reason/Comments: Hemoptysis, Do you want consulting provider notified?: Yes 02/02/22 20:12 Consult Physician Stat Consulting Provider: Thee Stoll Consult Reason/Comments: Tremors; change in altered mental status Do you want consulting provider notified?: Yes 02/06/22 08:52 Consult Physician Routine Consulting Provider: Marcia Ascencio Consult Reason/Comments: Oliguria Do you want consulting provider notified?: Yes 02/08/22 11:17 Consult Physician Routine Consulting Provider: Edison Leung Consult Reason/Comments: possibe HD cath 02/09 Do you want consulting provider notified?: Yes 02/10/22 11:16 Consult Physician Routine Consulting Provider: Chava Jackson Consult Reason/Comments: AMS Do you want consulting provider notified?: Already Contacted Primary care physician: Sridhar Chan [facility] Course: Hospital course This is a 61-year-old patient who follows with Dr. Sridhar Chan. Chronic stable medical conditions include diabetes, hypertension, hy perlipidemia, chronic low back problems, cigarette smoker. At the baseline uses a walker. Patient slipped in the bathroom falling on his buttock. Was not able to get up. By the EMS report he had fallen 24 hours prior to the picking him up. Patient been complaining of pain in the right rib cage in the lower back. X-ray was negative for fracture. Patient continued to have significant pain especially with deep breathing. Patient also had a congestive cough and wheezing. Some bloody sputum. Denies any fever and chills. Patient also complaining of urinary retention and requesting a Shepard catheter. at the bedside. No fever no chills. Orthopedics consulted for the same. Patient normally has a bowel movement once a week. Patient also has a wound on the right foot lateral part of the ankles for about a week. Ischemic changes. From rubbing against a bedpost. Patient's INR in the ER was greater than 10. Was given vitamin K. 10 mg Patient bit with Coumadin toxicity, given vitamin K, acute COPD exacerbation, uncontrolled atrial flutter put on Lopressor, right chest wall pain. Computed tomography scan lumbar spine and chest was ordered. Large wound on the right lateral malleolus-ID and vascular consulted.. IV cefepime. February 01: Patient yesterday to see refused his computed tomography scan of the chest and lumbar spine. Done today. Right-sided rib fractures, pulmonary contusion confirm. L1 vertebral body 30% wedge compression fracture. Patient's girlfriend the bedside. It was discussed in detail with her. Patient wanting again and again to pull out his NG tube. Requests the to stay with the patient. Patient is also had the dark aspirate from the stomach for which she has NG tube. Surgery was consulted for the same. Also this morning right foot wound was debrided by Dr. Ibarra from vascular. Wound base was relatively clean. No undermining or tunneling. February 02: Delirious. NG tube to suction. Has been in restraints because po int NG TUBE several times. Mumbling to himself. Dressing over the right ankle. Not in distress. Ileus. Chest x-ray showing right lower lobe/atelectasis. February 03: Hospital computer system was down. Patient remains delirious. Nasal cannula. Lethargic. Family the bedside. Antibiotics. A. fib uncontrolled. EEG evidence of metabolic encephalopathy. No clear-cut epileptiform activity. Started on Keppra by neurology. February 04: ICU: Girlfriend at the bedside. In atrial fibrillation uncontrolled. On IV Cardizem and IV amiodarone. NG tube to suction. Patient lethargic. Multiple breathing. 2 L. Oxygen. February 05: ICU. Atrial fibrillation better controlled this morning. Cardizem discontinued. Patient respiratory status worsened this morning and patient is intubated. FiO2 45 and a PEEP of 5. Atrial fibrillation, controlled. Drips include amiodarone, propofol, levo fed. Discussed with girlfriend the bedside. Understands prognosis guarded. February 06: ICU: Ventilated. FiO2 45 and a PEEP of 5. NG tube is clamped. On IV propofol. Sedated. Heart rate better controlled. Was started on Coumadin yesterday. Worsening renal function. Nephrology consulted. 02/07/2022 Patient is currently in the MICU and on mechanical ventilator. Tidal volume of 400, FiO2 40% and PEEP of 5. Patient is off pressor support today. Currently on propofol and is also on tube feeding. Chest x-ray showed stable exam with stable support lines and tubes. Correlate for congestive heart failure. Patient was given a dose of IV Lasix. Laboratory data showed WBC 18.4 hemoglobin 11.6 and platelets 458 Sodium 141 potassium 3.7 chloride 103 bicarb is 18 BUN 49 and creatinine 3.73 and calcium 7.3. INR is 2.2. Patient is being followed by nephrology cardiology and critical care team. 02/08/2022 Patient is currently on mechanical ventilator and sedated with propofol. Assist control with FiO2 40% and tidal volume of 400 and PEEP of 5. Patient is being continued on antibiotics above cefepime and Flagyl. Sputum gram stain gram-negative bacilli and Lynda. Chest x-ray today showed findings suggestive of slightly worsening CHF exacerbation as there is cardiomegaly with mild to moderate central venous congestion and small to moderate-sized bilateral pleural effusion. Laboratory test showed WBC increased to 23.6 hemoglobin 9.1 and platelets 162 INR 3.0 Sodium 139 potassium 4.3 chloride 113 bicarb is 40 BUN 54 and creatinine worsening to 4.36 February 09: I resumed the care of patient today ICU: Med: 40/. Received vitamin K 5 mg IV to bring the INR down for dialysis catheter. Drips include bicarbonate, propofol, epinephrine. Patient is a stage II coccyx is ulcer. Plan is to change the NG tube to on G-tube today. For possible colitis/fistula on antibiotics. at the bedside. February 10: ICU. Ventilator 50/5. Hemodialysis catheter placed last night. Hemodialyzed yesterday and getting dialyzed today. Remains in atrial fibrillation heart rate uncontrolled. Getting up sedation holiday. Drips include bicarbonate and norepinephrine. Propofol currently held. 2 feeding at 46 mL an hour. Does open eyes. February 11: ICU. Ventilator. 50/5. Third day for hemodialysis. 1.5 L to be removed today. Back on propofol. Drips include bicarbonate, norepinephrine, propofol. On G-tube feeding. Patient back in sinus rhythm. Bag and tracheostomy to planning for next week. 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 IV antifungal started by ID. February 12: ICU: Ventilator: 40/5. Telemetry shows sinus rhythm. Drips include propofol and norepinephrine. On G-tube feeding. Discussed with the at the bedside. Understands prognosis guarded. IV antibiotics and antifungals. February 13: ICU: Ventilator: 40/5. PEG tube placed yesterday by Dr. Cornejo. Drips include bicarbonate, propofol, norepinephrine. Getting hemodialysis done today. February 14: ICU: Medicated. 2 feeding at 65 mL an hour. This included propofol and norepinephrine. Hemodialysis done today. Sinus rhythm. February 15: ICU: Ventilator: 40/5. 2 feeding at 65 mL an hour. Drips include propofol and norepinephrine. No hemodialysis today. at the bedside. Discussed. 02/16/2022 Patient seen and evaluated and follow-up continues to be in the ICU on mechanical ventilation with sedation with multiple medical consultations following. Patient is currently receiving hemodialysis and continues with a temporary dialysis catheter. Patient is still full code and overall prognosis remains extremely poor and guarded. Patient's FiO2 is 40% with a PEEP of 5. Patient also continues on antifungal along with cefepime and metronidazole with infectious disease following. Patient is sedated on propofol continues on Levophed as well. WBC is 12.9 with hemoglobin of 8.7, sodium is 134 with a potassium of 4.5 current creatinine is 4.69 with a BUN of 66. Patient is maintained on tube feedings and has received the PEG tubing is scheduled for tracheostomy tentatively today if OR available. Again overall prognosis remains extremely guarded. 02/17/2022 Patient continues to be in the ICU on mechanical vent and FiO2 remains 40% with a PEEP of 5. Patient continues on norepinephrine with multiple medical consultations following. Patient continues on propofol for sedation and also was maintained on hemodialysis almost daily. Patient continues on cefepime along with an antifungal and Flagyl with anxiety following sputum culture showing 16 oh troph ammonias maltophilia with Lynda most recent blood cultures have been negative. Patient is afebrile although WBC is elevated at 14.5 and hemoglobin is 8.9, BUN is 61 with a creatinine of 4.55, sodium is 135 and sodium bicarb tablets have been discontinued. Magnesium was 1.9. Plan is tentatively scheduled for tracheostomy with general surgery today post hemodialysis. Overall prognosis is extremely guarded. Chest x-ray shows continued bilateral pleural effusions with no significant change from previous day. Patient is maintained on tube feedings via PEG tube although on hold for surgery today 02/18/2022 Patient is seen and evaluated continues to be in the ICU with multiple medical consultations following. Patient is status post tracheostomy placement with Dr. Villegas yesterday evening and tolerating well with no leaks noted. Patient continues on FiO2 of 40% with a PEEP of 5. Patient undergoing sedation holiday and propofol was recently turned off. Patient is awake and opening eyes spontaneously although not following commands on exam. Patient is looking around the room and mouthing words with no comprehension. Patient with extensive wounds of the sacro-coccyx region that are currently unstageable and general surgery is following and may possibly require debridement of these areas. Patient is status post debridement of the right foot previously. Patient is maintained on antibiotics along with antifungal's and infectious disease is following. Patient is afebrile and WBC is 10.6, hemoglobin is 8.4, patient is also with a BUN of 50 and creatinine is 3.78, magnesium is 1.8. Patient is being closely monitored by nephrology with a temporary site of the right femoral receiving daily dialysis. Patient continues on low-dose Levophed and working on weaning as tolerated. PEG tube feedings are at goal and tolerating. Overall prognosis remains extremely guarded. 02/19/2022 Patient is seen in follow-up this morning and has been off propofol since yesterday although continues to not follow commands. Multiple medical consultations following. Patient is status post recent tracheostomy and also PEG tube placement and has been resumed on tube feedings and tolerating at goal. Patient is continuing on hemodialysis with a right groin temporary catheter. Chest x-ray this morning shows some possible progression of pleural effusions and airspace disease or atelectasis especially in the right lung. Nursing staff questioning about anticoagulation and his Coumadin was on hold for tracheostomy and patient is being started on eliquis. Patient continues on antibiotics as well in the form of cefepime and Flagyl and antifungal's with anxiety following. Patient also continues on low-dose Levophed. Patient continues on mechanical ventilation via tracheostomy with an FiO2 of 60. Patient scheduled to receive dialysis again today. General surgery is following and may be required for debridement of the decubitus ulcers once more stable. Pulmonary discussing possible thoracentesis in the near future. Patient is currently afebrile. Prognosis remains extremely guarded. February 20: Patient was being covered by [facility] hospitalist last 4 days. ICU. Ventilator. FiO2 16 a PEEP of 8. Has a PEG and trach. Awake, drowsy. On norepinephrine. at the bedside. February 21: ICU: Ventilator. FiO2 60 PEEP of 8. Hemodialysis today. Drips include norepinephrine. Sinus tachycardia. Does open eyes. Sticks his tongue. Drowsy. Not really following commands February 22: ICU: Ventilator. FiO2 16 a PEEP of 8. Patient is in and out of atrial fibrillation. Does open eyes and sticks his tongue out intermittently. Nonpurposeful. Currently on levo fed drip small dose. Midodrine has been added. 2 feeding at 25 mL an hour. at the bedside. February 23: ICU: Ventilator. FiO2 50 PEEP of 12. Drips include norepinephrine. Decreased Accu-Chek. tube feeding increased. February 24: ICU: Ventilator: FiO2 50 and a PEEP of 12. 2 feeding at 40. Patient is off levo fed. Lethargic. EEG yesterday showed encephalopathy obvi ous evidence of seizure. Keppra ordered per neurology. Ultrafiltration hemodialysis today. Significant edema. February 25: ICU: Ventilator: FiO2 50 and a PEEP of 8. Atrial fibrillation rate controlled. 2 feeding at 90 mL an hour. On a small dose of epinephrine. Patient lethargic. Dr. Ryan met with the family yesterday. Comfort measures were suggested. Family will talk further. February 26: ICU: Ventilator. Atrial fibrillation. Lethargic. Family looking into comfort measures. Waiting for family to come in from out of state. February 27: ICU: Ventilator. 45/8. Lethargic. Awaiting out of town family to come in before comfort measures on March 03. February 28: ICU: Ventilator 45/8. Atrial fibrillation rate controlled. 2 feeding. Lethargic March 01: ICU: Ventilator for deficiency. 2 feeding. Patient's and [id number] at the bedside. They decided to evidently extubate the patient. Dr. Ryan informed. Discussed with him. Prognosis poor. Later today patient was terminally extubated and . Family was present Past medical history to include: COPD, diabetes, hypertension, hyperlipidemia, back problems, TB, atrial fibrillation, on Coumadin Social history: Smokes a pack a day for close to 50 years. Stop doing alcohol some time ago. Lives with his significant other Sandra. Does use a walker. 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 Some circumferential wall thickening of the cecum and ascending colon. Distention of the rectum 7.5 cm with solid stool. EEG: Evidence of encephalopathy. No obvious epileptiform activity. 2-D echocardiogram: EF 60-65%. Renal ultrasound: Shows bilateral normal cortical medullary thickness. February 01: WBC 17.1 hemoglobin 14.8 UA: Blood large, leukoesterase moderate WBC 28 nitrite negative Lumbar spine CT: Anterior wedge compression deformity of L1. Multiple level DJD. 7 mm calculus right renal pelvis. CT chest without contrast: Right lateral eighth through 10th rib fractures with associated gas trace hemothorax right lower lobe pulmonary contusion/atelectasis. Patchy) disease left upper lobe. WBC 25.8 hemoglobin 14.1 platelets 217 INR greater than 10 sodium 131 potassium 3.9. 24 creatinine 1.8 to EKG tracing personally reviewed by me-atrial flutter. Rate 132 Foot/Lumbar/sacral coccyx: Spondylitic changes. No fracture. Chest x-ray film personally reviewed by me-clinically. Possible hyperinflation Cause of : Pneumonia Assessment and plan: -Coumadin toxicity. INR greater than 10. On presentation: 10 mg vitamin K in the ER. Hemoptysis on presentation. Coumadin resumed on February 05.. - right lung contusion.-Secondary to fall. hemoptysis on presentation -Pneumonia, secondary to Stenostrophonas maltophilia, Lynda albicans: Slow to respond IV cefepime, IV anidulafungin -Sepsis with positive blood cultures MSSA, likely source right ankle. From January 31. IV cefepime. February 04 blood culture negative -Acute hypoxic respiratory failure multifactorial including pneumonia/COPD. Ventilator assisted: Slow to respond -Acute hypoxic respiratory failure, multifactorial: ventilator support,: Slow to respond Patient intubated on February 05 -Acute COPD exacerbation, with chronic bronchitis component in a current smoker: Slow to respond DuoNeb. Nebulized Pulmicort. Mucinex. -Chronic nicotine dependence, cigarette smoker Nicotine patch -Paroxysmal atrial flutter,: Back in sinus rhythm Lopressor 50 mg 3 times a day. 2-D echocardiogram unremarkable. Oral amiodarone Coumadin started on February 05 -Possible CK D with possible acute component. creatinine was 0.8 in April 2019. Renal ultrasound unremarkable. UA shows trace protein. IV fluids.. -Acute kidney injury, ATN, likely cardiorenal syndrome.: Not improving Follow with nephrology. Daily Hemodialysis started February 09 -Acute right-sided 8-10 ribs fracture secondary to fall K pad -Diabetes mellitus type 2, chronically on oral hypoglycemic Sliding scale insulin. Increase tube feeding. DC Levemir -Diabetic peripheral neuropathy Decreased dose of Lyrica in the setting of renal failure. 100 mg twice a day -Chronic low back pain: MS Contin 15 mg every 12, [place] 7.5 twice a day when necessary -Anxiety depression not otherwise specified Wellbutrin XL 100 mg twice a day -Hyperlipidemia Lipitor 40 mg daily at bedtime -Right ankle lateral, diabetic wound, stage II acute. Wound culture positive for Streptococcus agalactiae and Staphylococcus aureus. IV Ancef initially. Follow with ID Patient has poor distal pulses. February 01 wound was debrided by Dr. Ibarra. Clean base. -Acute L1 30% wedge fracture secondary to fall LSO brace. Be followed by Dr. Damon -Acute delirium multifactorial. Slow to respond -Acute ileus, NG tube for decompression.; clamped.: Corrected Being followed by surgery. -Possible colitis /fistula on computed tomography scan. IV Flagyl. Cefepime. Followed by surgery -Normocytic anemia, multifactorial. Chronic disease component, hospital- acquired/blood draw and infection. Received blood transfusion Disposition: Patient Plan - Discharge Summary Discharge Rx Participant: No New Discharge Prescriptions: No Action Pregabalin [Lyrica] 200 mg PO BID #6 cap Warfarin [Coumadin] 2.5 mg PO MOFR@2100 Morphine Sulfate ER [Ms Contin] 15 mg PO Q12HR Metoprolol Tartrate [Lopressor] 50 mg PO TID Albuterol Inhaler [Ventolin Hfa Inhaler] 2 puff INHALATION RT-Q6H PRN PRN Reason: Shortness Of Breath Warfarin [Coumadin] 5 mg PO SUTUWETHSA@2099 Tiotropium [place] [Spiriva] 1 puff INHALATION RT-DAILY glipiZIDE [Glucotrol] 10 mg PO BID HYDROcodone/APAP 7.5-325MG [[place] 7.5-325] 1 tab PO BID PRN PRN Reason: Pain buPROPion XL [Wellbutrin XL] 150 mg PO BID Atorvastatin [Lipitor] 40 mg PO HS Albuterol Nebulized [Ventolin Nebulized] 2.5 mg INHALATION RT-Q6H PRN PRN Reason: Shortness Of Breath Discharge Medication List Pregabalin [Lyrica] 200 mg PO BID #6 cap 08/28/17 [Rx] Albuterol Inhaler [Ventolin Hfa Inhaler] 2 puff INHALATION RT-Q6H PRN 01/31/22 [History] Albuterol Nebulized [Ventolin Nebulized] 2.5 mg INHALATION RT-Q6H PRN 01/31/22 [History] Atorvastatin [Lipitor] 40 mg PO HS 01/31/22 [History] HYDROcodone/APAP 7.5-325MG [[place] 7.5-325] 1 tab PO BID PRN 01/31/22 [History] Metoprolol Tartrate [Lopressor] 50 mg PO TID 01/31/22 [History] Morphine Sulfate ER [Ms Contin] 15 mg PO Q12HR 01/31/22 [History] Tiotropium [place] [Spiriva] 1 puff INHALATION RT-DAILY 01/31/22 [History] Warfarin [Coumadin] 2.5 mg PO MOFR@209901/31/22 [History] Warfarin [Coumadin] 5 mg PO SUTUWETHSA@209901/31/22 [History] buPROPion XL [Wellbutrin XL] 150 mg PO BID 01/31/22 [History] glipiZIDE [Glucotrol] 10 mg PO BID 01/31/22 [History] Follow up Appointment(s)/Referral(s): Sridhar Chan MD [Primary Care Provider] - 1-2 days Samson Arana DO [Doctor of Osteopathic Medicine] - 2 Weeks Pepper Shepard DO [STAFF PHYSICIAN] - 2 Weeks [facility] [NON-STAFF] - 1 Week Activity/Diet/Wound Care/Special Instructions: 1. Patient may wear LSO brace for comfort and support while sitting upright at greater than 45, while working with therapy, and while ambulating; patient does not have to wear the brace while lying in bed or bathing 2. Patient should avoid excessive bending, twisting, and lifting; no lifting greater than 10 pounds
== END 2022-03-01 16:20 | disposition expired | DRG 3 ==
LOC: EC 00:58 → EEVIPCON 05:07 → 6NMEDSUR 05:07 → 3SCARD 06:10 → 2SICU 02-02 21:32
PROVIDERS: ADMIT Hospitalist; ATTEND Hospitalist
PROC: 30233K1 Transfusion of Nonautologous Frozen Plasma into Peripheral Vein, Percutaneous Approach (ICD-10-PCS; 2022-01-31)
PROC: 0HDMXZZ Extraction of Right Foot Skin, External Approach (ICD-10-PCS; 2022-02-01)
PROC: 3E0G76Z Introduction of Nutritional Substance into Upper GI, Via Natural or Artificial Opening (ICD-10-PCS; 2022-02-01)
PROC: 0DH67UZ Insertion of Feeding Device into Stomach, Via Natural or Artificial Opening (ICD-10-PCS; 2022-02-01)
PROC: 0JBQ0ZZ Excision of Right Foot Subcutaneous Tissue and Fascia, Open Approach (ICD-10-PCS; 2022-02-03)
PROC: 0BH17EZ Insertion of Endotracheal Airway into Trachea, Via Natural or Artificial Opening (ICD-10-PCS; 2022-02-05)
PROC: 5A1955Z Respiratory Ventilation, Greater than 96 Consecutive Hours (ICD-10-PCS; 2022-02-05)
PROC: 4A133J1 Monitoring of Arterial Pulse, Peripheral, Percutaneous Approach (ICD-10-PCS; 2022-02-05)
PROC: 4A133B1 Monitoring of Arterial Pressure, Peripheral, Percutaneous Approach (ICD-10-PCS; 2022-02-05)
PROC: 03HY32Z Insertion of Monitoring Device into Upper Artery, Percutaneous Approach (ICD-10-PCS; 2022-02-05)
PROC: 06HT33Z Insertion of Infusion Device into Right Foot Vein, Percutaneous Approach (ICD-10-PCS; 2022-02-09)
PROC: 5A1D70Z Performance of Urinary Filtration, Intermittent, Less than 6 Hours Per Day (ICD-10-PCS; 2022-02-09)
PROC: 0DCP7ZZ Extirpation of Matter from Rectum, Via Natural or Artificial Opening (ICD-10-PCS; 2022-02-12)
PROC: 3E0G76Z Introduction of Nutritional Substance into Upper GI, Via Natural or Artificial Opening (ICD-10-PCS; 2022-02-12)
PROC: 0DH63UZ Insertion of Feeding Device into Stomach, Percutaneous Approach (ICD-10-PCS; 2022-02-12)
PROC: 3E043XZ Introduction of Vasopressor into Central Vein, Percutaneous Approach (ICD-10-PCS; 2022-02-13)
PROC: 02HV33Z Insertion of Infusion Device into Superior Vena Cava, Percutaneous Approach (ICD-10-PCS; 2022-02-16)
PROC: 5A1955Z Respiratory Ventilation, Greater than 96 Consecutive Hours (ICD-10-PCS; principal; 2022-02-17 08:50)
PROC: 0B110F4 Bypass Trachea to Cutaneous with Tracheostomy Device, Open Approach (ICD-10-PCS; principal; 2022-02-17 08:50)
PROC: 0B9F8ZZ Drainage of Right Lower Lung Lobe, Via Natural or Artificial Opening Endoscopic (ICD-10-PCS; 2022-02-20)
PROC: 0BJ08ZZ Inspection of Tracheobronchial Tree, Via Natural or Artificial Opening Endoscopic (ICD-10-PCS; 2022-02-20)
PROC: 0B9F8ZX Drainage of Right Lower Lung Lobe, Via Natural or Artificial Opening Endoscopic, Diagnostic (ICD-10-PCS; 2022-02-20)
PROC: 0BC38ZZ Extirpation of Matter from Right Main Bronchus, Via Natural or Artificial Opening Endoscopic (ICD-10-PCS; 2022-02-20)
PROC: 30233N1 Transfusion of Nonautologous Red Blood Cells into Peripheral Vein, Percutaneous Approach (ICD-10-PCS; 2022-02-22)
DX: A41.2 Sepsis due to unspecified staphylococcus (principal); L89.513 Pressure ulcer of right ankle, stage 3; B37.1 Pulmonary candidiasis; N17.0 Acute kidney failure with tubular necrosis; G93.41 Metabolic encephalopathy; I50.33 Acute on chronic diastolic (congestive) heart failure; J96.21 Acute and chronic respiratory failure with hypoxia; J96.22 Acute and chronic respiratory failure with hypercapnia; K29.71 Gastritis, unspecified, with bleeding; R65.21 Severe sepsis with septic shock; S27.1XXA Traumatic hemothorax, initial encounter; S22.41XA Multiple fractures of ribs, right side, initial encounter for closed fracture; S32.010A Wedge compression fracture of first lumbar vertebra, initial encounter for closed fracture; T17.890A Other foreign object in other parts of respiratory tract causing asphyxiation, initial encounter; I13.0 Hypertensive heart and chronic kidney disease with heart failure and stage 1 through stage 4 chronic kidney disease, or unspecified chronic kidney disease; D68.9 Coagulation defect, unspecified; E46 Unspecified protein-calorie malnutrition; Z68.42 Body mass index [BMI] 45.0-49.9, adult; T82.41XA Breakdown (mechanical) of vascular dialysis catheter, initial encounter; F05 Delirium due to known physiological condition; E87.21 Acute metabolic acidosis; S27.321A Contusion of lung, unilateral, initial encounter; G93.49 Other encephalopathy; I48.19 Other persistent atrial fibrillation; I48.92 Unspecified atrial flutter; J44.1 Chronic obstructive pulmonary disease with (acute) exacerbation; J44.0 Chronic obstructive pulmonary disease with (acute) lower respiratory infection; J98.11 Atelectasis; K56.7 Ileus, unspecified; L03.115 Cellulitis of right lower limb; N20.2 Calculus of kidney with calculus of ureter; R18.8 Other ascites; R04.2 Hemoptysis; Z51.5 Encounter for palliative care; Z66 Do not resuscitate; E11.22 Type 2 diabetes mellitus with diabetic chronic kidney disease; D63.1 Anemia in chronic kidney disease; E11.65 Type 2 diabetes mellitus with hyperglycemia; N18.30 Chronic kidney disease, stage 3 unspecified; E11.42 Type 2 diabetes mellitus with diabetic polyneuropathy; E11.51 Type 2 diabetes mellitus with diabetic peripheral angiopathy without gangrene; E83.39 Other disorders of phosphorus metabolism; L89.152 Pressure ulcer of sacral region, stage 2; F32.A Depression, unspecified; E11.621 Type 2 diabetes mellitus with foot ulcer; E11.649 Type 2 diabetes mellitus with hypoglycemia without coma; E66.01 Morbid (severe) obesity due to excess calories; Z99.2 Dependence on renal dialysis; R56.9 Unspecified convulsions; E78.5 Hyperlipidemia, unspecified; F17.210 Nicotine dependence, cigarettes, uncomplicated; E87.6 Hypokalemia; F41.9 Anxiety disorder, unspecified; Z79.84 Long term (current) use of oral hypoglycemic drugs; G24.01 Drug induced subacute dyskinesia; G47.00 Insomnia, unspecified; G89.29 Other chronic pain; K21.9 Gastro-esophageal reflux disease without esophagitis; K31.89 Other diseases of stomach and duodenum; K52.9 Noninfective gastroenteritis and colitis, unspecified; K56.41 Fecal impaction; K60.3 Anal fistula; M19.90 Unspecified osteoarthritis, unspecified site; R33.9 Retention of urine, unspecified; M51.36 Other intervertebral disc degeneration, lumbar region; N50.89 Other specified disorders of the male genital organs; R29.6 Repeated falls; T45.515A Adverse effect of anticoagulants, initial encounter; W01.0XXA Fall on same level from slipping, tripping and stumbling without subsequent striking against object, initial encounter; W19.XXXA Unspecified fall, initial encounter; Z91.81 History of falling; Y92.003 Bedroom of unspecified non-institutional (private) residence as the place of occurrence of the external cause; Z78.1 Physical restraint status; Z79.01 Long term (current) use of anticoagulants; Z79.4 Long term (current) use of insulin; Z79.899 Other long term (current) drug therapy; Z86.73 Personal history of transient ischemic attack (TIA), and cerebral infarction without residual deficits; Z87.442 Personal history of urinary calculi; Z28.311 Partially vaccinated for COVID-19; Z79.891 Long term (current) use of opiate analgesic; Z79.51 Long term (current) use of inhaled steroids; Z53.29 Procedure and treatment not carried out because of patient's decision for other reasons
CPT/HCPCS: 31624; 36415; 36600; 43246; 70450; 71045; 71046; 71250; 72100; 72131; 72220; 74018; 74019; 74022; 74176; 76604; 76770; 80048; 80053; 80074; 80076; 81001; 82140; 82728; 82805; 83036; 83540; 83550; 83605; 83735; 83883; 84100; 84132; 84145; 84165; 84484; 85025; 85027; 85610; 85730; 86038; 86140; 86160; 86162; 86225; 86255; 86334; 86335; 86704; 86706; 86850; 86900; 86901; 86920; 87040; 87070; 87075; 87077; 87102; 87116; 87186; 87205; 87206; 87252; 87340; 87496; 87498; 87502; 87529; 87634; 87798; 88305; 90935; 93306; 93880; 93923; 94002; 94003; 94640; 94760; 95816; 95822; 96365; 96366; 96368; 96375; 96376; 99285